=== PATIENT | male | born 1950 | race Caucasian/White ===

== ENCOUNTER 2023-06-27 08:12 | Outpatient (OUT) | payer OTHER, SELFPAY ==
--- NOTE | 2023-06-27 | PCN_ITS ---
CARDIAC STRESS TEST Requesting Physician: Procedure Date: 06/27/2023 INDICATION: Coronary artery disease. METHODS: After risks, benefits, and alternatives were explained, written informed consent was obtained. The patient was brought to the stress lab in the resting and fasting state. He was connected to the appropriate hemodynamic and electrocardiographic monitoring. Lexiscan 0.4 mg was infused intravenously. The patient was monitored for the standard duration and discharged in a stable state. STRESS TEST INFORMATION: HEMODYNAMICS: Resting heart rate was 62 beats per minute, increasing to a maximum of 85 beats per minute. Resting blood pressure was 150/76, decreasing to a minimum of 136/74. The patient had no reported symptoms. ELECTROCARDIOGRAPHY: Rest EKG: Normal sinus rhythm, normal EKG. During infusion and recovery: No significant ST-T wave changes noted, no significant arrhythmia seen. FINAL IMPRESSION: 1. No ischemic EKG changes seen on Lexiscan pharmacological stress test. 2. Nuclear images are to be read, interpreted and reported in a separate dictation. BEREKET
--- NOTE | 2023-06-27 08:05 | NM_ITS ---
Patient Name: CHELSEA PATEL MR#: [id number] : 1950 Exam Date: 06/27/2023 Ordering Doctor: DR OCTAVIO JOSHUA M.D. RADIOLOGY REPORT PROCEDURE: NM ROSENDA PERF SPECT REST STR COMPARISON: None. INDICATIONS: CORONARY ARTERY DISEASE TECHNIQUE: Exam Description: Stress/Rest one day protocol gated SPECT Rest Imagin.2 mCi Tc-99m Cardiolite IV on 06/27/2023 Stress Imaging 30.2 mCi Tc-99m Cardiolite IV on 06/27/2023 Exercise Protocol: 0.4 mg Lexiscan given IV Heart Rate (bpm): Rest: 62 Max: 86 PMHR: 58 Blood Pressure: Rest: 150/76 Max: 150/76 Symptoms: Rest and peak stress ECG findings were normal and the exercise portion of the study was normal per attending physician Dr. Joshua . For more details please see separate cardiac stress test report. FINDINGS: QUALITY OF STUDY: Excellent. PERFUSION DEFECT: None. LOCATION: N/A SIZE: N/A. SEVERITY: N/A. TYPE: N/A. WALL MOTION: Normal. LV SIZE: Normal. 112 mL. TID / TCD: None; 1.0 LVEF: Normal. Calculated EF 62%. SUMMARY: Myocardial perfusion imaging study is NORMAL. CONCLUSION: 1. Normal nuclear medicine myocardial perfusion scan. Dictated by: Silverio Boykin M.D. on 06/28/2023 at 15:25 Approved by: Silverio Boykin M.D. on 06/28/2023 at 15:30
[2023-06-27] MEDS: REGADENOSON 0.4 MG/5 ML SYRINGE 0.400000000000000022 MG IV (10:08)
== END 2023-06-27 08:13 | disposition home or self-care (01) ==
LOC: NM 08:13
PROVIDERS: PCP Internal Medicine; Visit Provider Internal Medicine Interventional Cardiology
DX: I25.10 Atherosclerotic heart disease of native coronary artery without angina pectoris (principal); I25.83 Coronary atherosclerosis due to lipid rich plaque
CPT/HCPCS: 78452; 93017; A9500; J2785

== ENCOUNTER 2024-03-06 13:53 | Outpatient (OUT) | payer MEDICARE, SELFPAY ==
--- NOTE | 2024-03-06 13:57 | CT_ITS ---
[address] [address] Patient Name: CHELSEA PATEL MRN: [id number] date: 1950 Sex: M Assigned Patient Location: CT Current Patient Location: Accession/Order Number: [id number] Exam Date: 03/06/2024 14:12 Report Date: 03/07/2024 06:38 At the request of: JAMES SEQUEIRA Procedure: CT chest wo con EXAMINATION: CT chest wo con HISTORY: Multiple Lung Nodules ; follow-up COMPARISON: CT chest 05/19/2022 TECHNIQUE: Axial, Coronal, and Sagittal images were created without the administration of IV contrast material. Dose reduction techniques were achieved by using automated exposure control and/or adjustment of mA and/or kV according to patient size and/or use of iterative reconstruction technique. FINDINGS: LUNGS: Stable appearance of multiple 3-5 mm nodules bilaterally; some calcified and some are noncalcified. No acute infiltrates or significant chronic interstitial changes. PLEURA: No mass, effusion, or pneumothorax. VASCULATURE: No abnormality. RAVI: Calcified right hilar lymph nodes suggestive chronic granulomatous disease. MEDIASTINUM: A few small calcified lymph nodes. CARDIAC: No enlargement, pericardial thickening, or pericardial effusion. Coronary Artery calcifications: Coronary calcifications are moderate. AORTA: No aneurysm or dissection. CHEST WALL: No mass or axillary adenopathy BONES: Prior right shoulder replacement. No bone lesion or fracture. LIMITED ABDOMEN: Multiple gallstones. Limited images of the upper abdomen. OTHER: Negative. CT/CT chest wo con IMPRESSION: 1. Multiple 3-5 mm lung nodules bilaterally; stable and not overtly suspicious. 2. Calcified mediastinal and hilar lymph nodes which along with lung nodules favoring chronic granulomatous disease. 3. Cholelithiasis. Electronically authenticated by: GERSON AMADO Date: 03/07/2024 06:38
== END 2024-03-06 13:54 | disposition home or self-care (01) ==
LOC: CT 13:53
PROVIDERS: PCP Internal Medicine; Visit Provider Internal Medicine
DX: R91.8 Other nonspecific abnormal finding of lung field (principal); K80.20 Calculus of gallbladder without cholecystitis without obstruction
CPT/HCPCS: 71250

== ENCOUNTER 2024-03-31 13:16 | Emergency (ER) | payer MEDICARE, SELFPAY ==
[2024-03-31 13:20] VITALS: TEMP 36.7; BMI 32.6
--- NOTE | 2024-03-31 13:24 | XR_ITS ---
The [address] [address] Patient Name: CHELSEA PATEL MRN: [id number] date: 1950 Sex: M Assigned Patient Location: ER Current Patient Location: ER Accession/Order Number: [id number] Exam Date: 03/31/2024 13:45 Report Date: 03/31/2024 15:11 At the request of: ENDER CREWS Procedure: XR acute abdomen series EXAM: XR acute abdomen series HISTORY: constipation COMPARISON: CT chest 03/06/2024. Chest x-ray 03/23/2022. TECHNIQUE: AP chest x-ray with upright and supine abdominal x-rays. FINDINGS: Cardiac size appears unchanged. Trachea is midline. No mediastinal widening. No interval air space consolidation, pneumothorax or effusion is identified. Multiple chronic healed right rib fracture deformities with callus. Posterior fixation hardware along the lower cervical spine. Reversal of right shoulder arthroplasty is noted. Multiple clustered rim calcifications in the right upper quadrant correlating with calcified gallstones. No free air beneath the diaphragm is seen. Prominent stool throughout the course of the colon and rectum. Rectum is distended at 6.8 cm. There are several air-fluid levels on the upright projection. No dilated air-filled small or large bowel loops identified to suggest obstruction. Convex right curvature of the lumbar spine with posterior fixation at L4-L5. XR/XR acute abdomen series IMPRESSION: 1. Stable nonacute chest. 2. Constipation 3. There are a few air-fluid levels on the upright projection which may indicate mild ileus pattern 4. Cholelithiasis. Electronically authenticated by: RUDY SANCHEZ Date: 03/31/2024 15:11
[2024-03-31 15:26] VITALS: BP 149/73; PULSE 58; O2SAT 100
--- NOTE | 2024-03-31 15:40 | ED_ITS ---
HPI HPI - General Adult General Chief complaint: Abdominal Pain Stated complaint: CONSTIPATED Time Seen by Provider: 03/31/24 15:26 Source: patient Mode of arrival: walk-in Limitations: no limitations History of Present Illness HPI narrative: Patient is a 73-year-old male who presents to the emergency department for the evaluation of constipation. Patient reports no bowel movement for the last 3 days. He has no significant abdominal pain, fevers, nausea or vomiting. He has been using oral stool softeners and drink a bottle of magnesium citrate this morning without improvement. He states he required an enema for constipation about 10 years ago in this emergency department. He was sent for abdominal x- rays from the [facility] prior to my evaluation. He is sitting comfortably at bed side chair at time of evaluation. Related Data Previous Rx's ?Medication ?Instructions ?Recorded ondansetron 4 mg disintegrating 4 mg PO Q6H PRN nausea and 03/31/24 tablet vomiting #12 tabs peg 3350-electrolytes 236 240 ml PO Q10M #4,000 mL 03/31/24 gram-22.74 gram-6.74 gram-5.86 gram solution (Golytely) Allergies Allergy/AdvReac Type Severity Reaction Status Date / Time No Known Drug Allergies Allergy Verified 03/31/24 13:23 Opioid HPI Opioid Management Most Recent Opioid Data: No Data to Display Review of Systems ROS Constitutional Denies: fever or chills Ears, nose, mouth, and throat Denies: throat pain or nasal congestion Cardiovascular Denies: chest pain Respiratory Denies: shortness of breath Gastrointestinal Reports: constipation; Denies: nausea or vomiting Musculoskeletal Denies: back pain Integumentary/Breast Denies: rash Neurological Denies: numbness in extremities or weakness in extremities Hematologic/Lymphatic Denies: easy bruising or easy bleeding PFSH PFS Social History Little interest or pleasure in doing things: not at all Feeling down, depressed, or hopeless: not at all Exam Narrative Exam Narrative: Gen.: Awake, alert, in no distress Head: Normocephalic, atraumatic ENT: Moist mucous membranes Respiratory: No respiratory distress Gastrointestinal: Abdomen is soft, nondistended and nontender to palpation; rec west exam performed with Tania Thornton RN at bedside throughout the duration of the exam. Hard stool palpated in the rectal vault, beyond the reach of my fingertip. No hemorrhoids or bleeding noted Extremities: Moves extremities equally, no injuries noted Psych: Normal mood and affect Neuro: No focal neuro deficit Skin: Warm, dry, intact Constitutional Vital Signs, click to edit/add: Last Vital Signs Temp 98.1 F 03/31/24 13:20 Pulse 58 L 03/31/24 15:26 Resp 20 03/31/24 15:26 BP 149/73 H 03/31/24 15:26 Pulse Ox 100 03/31/24 15:26 O2 Del Method Room Air 03/31/24 15:26 Course Vital Signs Vital signs: Vital Signs Temperature 98.1 F 03/31/24 13:20 Temperature 98.1 F 03/31/24 13:20 Pulse Rate 58 L 03/31/24 15:26 Respiratory Rate 03/31/24 15:26 Blood Pressure 149/73 H 03/31/24 15:26 Pulse Oximetry 100 03/31/24 15:26 Oxygen Delivery Method Room Air 03/31/24 15:26 Medical Decision Making MDM Narrative Medical decision making narrative: Abdominal x-rays show constipation with no evidence of obstruction. Rectal exam with hard stool in the vault that is not able to be digitally disimpacted. Enema was ordered for the patient. He is hemodynamically stable. 2 enemas were attempted without success. Patient is unable to be disimpacted. He was offered an observation admission which was discussed with Dr. Becerra to help clean him out. After extensive conversation at the bedside, patient would like to try to go home with [facility]. He was given Zofran and encouraged to increase fluids. He understands he can return to the emergency department at any time if his symptoms change or worsen or he does not get improvement. SUPERVISED APC VISIT, PHYSICIAN ATTESTATION: Based on the medical record the care appears appropriate. ? Medical Records Medical records reviewed: Yes I reviewed the patient's medical records Imaging Data Abdominal x-ray: Attestation: I have reviewed the pertinent imaging results. Radiologist's impression: ITS Impressions Chest/Abdomen X-ray 03/31/24 13:24 IMPRESSION: 1. Stable nonacute chest. 2. Constipation 3. There are a few air-fluid levels on the upright projection which may indicate mild ileus pattern 4. Cholelithiasis. Electronically authenticated by: RUDY SANCHEZ Date: 03/31/2024 15:11 Discharge Plan Discharge Chief Complaint: Abdominal Pain Clinical Impression: Constipation Patient Disposition: Home, Self-Care Time of Disposition Decision: 17:37 Condition: Good Prescriptions / Home Meds: New ondansetron 4 mg tablet,disintegrating 4 mg PO Q6H PRN (Reason: nausea and vomiting) Qty: 12 0RF peg 3350-electrolytes [Golytely] 236-22.74-6.74 -5.86 gram recon soln 240 ml PO Q10M Qty: 4000 0RF Rx Instructions: until fecal effluent is clear Print Language: Estonian Instructions: Constipation (ED) Referrals: JAMES SEQUEIRA [Primary Care Provider] - 1 week
== END 2024-03-31 17:54 | disposition home or self-care (01) ==
PROVIDERS: Emergency Provider Emergency Medicine; PCP Internal Medicine
DX: K59.00 Constipation, unspecified (principal); K80.20 Calculus of gallbladder without cholecystitis without obstruction
CPT/HCPCS: 74022; 99283

== ENCOUNTER 2024-04-05 14:29 | Emergency (ER) | payer MEDICARE, SELFPAY ==
[2024-04-05 14:38] VITALS: BP 145/78; PULSE 64; TEMP 36.8; O2SAT 97; BMI 32.8
--- OUTSIDE RECORDS SUMMARY | 2024-04-05 14:42 | XMS_ITS | CCD ---
Author Organization [facility] CliniSywy Care Team Providers Care Senior Design Engineer Name Role Phone David Carrillo Unavailable Unavailable David Carrillo Unavailable Unavailable David Carrillo Unavailable Unavailable NONE, XXXX Unavailable Unavailable BOZENA DOMINGO Admitting Unavailable BOZENA DOMINGO Attending Unavailable ALONZO CENTENO Referring Unavailable ALONZO CENTENO Primary Care Unavailable Hossein Tran Unavailable David Carrillo Unavailable Stanton Velasco II Primary Care Provider [phone] KUSHAL Velasco Attending Provider Hossein Tran Unavailable David Carrillo Unavailable Stanton Velasco II Primary Care Provider [phone] Hossein Tran Unavailable David Carrillo Unavailable Stanton Velasco II Primary Care Provider DR TRACIE TELLO Attending Unavailable DR TRACIE TELLO Admitting Unavailable DR STANTON VELASCO Primary Care Unavailable PITA .NICKIE Consulting UnavailALEXANDRE Powers Consulting Unavailable KIM PARK Consulting Unavailable DR WATSON CENTENO Primary Care Unavaila BOZENA Packer Admitting Unavailable BOZENA DOMINGO Attending Unavailable DR STANTON VELASCO Primary Care Unavailable BOZENA DOMINGO Attending Unavailable BOZENA DOMINGO Consulting Unavailable BOZENA DOMINGO Admitting Unavailable BASILIO, DR FORDE Admitting Unavailable DR STANTON VELASCO Primary Care Unavailable MISC, DR FORDE Attending Unavailable MISC, DR FORDE Consulting Unavailable BURGOS, CARMEN Consulting Unavailable VELASCO, DR RAMIREZ Attending Unavailable VELASCO, DR RAMIREZ Consulting Unavailable VELASCO, DR RAMIREZ Primary Care Unavailable VELASCO, DR RAMIREZ Admitting Unavailable VELASCO, DR RAMIREZ Admitting Unavailable VELASCO, DR RAMIREZ Attending Unavailable VELASCO, DR RAMIREZ Consulting Unavailable VELASCO, DR RAMIREZ Primary Care Unavailable ZIEBER, DR GERSON Rajan Consulting Unavailable ELTAHAWY, DR CUNNINGHAM Attending Unavailable ELTAHAWY, DR CUNNINGHAM Consulting Unavailable ELTAHAWY, DR CUNNINGHAM Admitting Unavailable VELASCO, DR RAMIREZ [facility] Un[facility] Unava ilable Andrewavani , Hossein Adamswin Unavailable [phone] Rod FATIMA MD, Daniel B Primary Care Provider [phone] David Carrillo MD Unavailable Rod FATIMA MD, Daniel B Primary Care Provider TAMANNA JOSHUA Attending Unavailable Watson Centeno Primary Care Provider Unava ilable Stanton Velasco MD Unavailable Stanton Velasco MD Primary Care Provider [phone] Suzanna Macdonald Attending Unavailable Suzanna Macdonald Admitting Unavailable AKI-OLU, LOUIE Attending Unavailable VELASCO II, STANTON B Primary Care Unavailable VELASCO II, STANTON B Primary Care Unavailable AKI-OLU, LOUIE Attending Unavailable VELASCO II, STANTON B Primary Care Unavailable AKI-OLU, LOUIE Attending Unavailable AKI-OLU, LOUIE Admitting Unavailable AKI-OLU, LOUIE Referring Unavailable VELASCO II, STANTON B Primary Care Unavailable AKI-OLU, LOUIE Referring Unavailable VELASCO II, STANTON B Primary Care Unavailable VELASCO II, STANTON B Primary Care Unavailable AKI-OLU, LOUIE Referring Unavailable VELASCO II, STANTON B Primary Care Unavailable VASBENIGNODAFADY P Attending Unavailable VELASCO II, STANTON B Primary Care Unavailable VASBENIGNODA FADY P Attending Unavailable VELASCO II, STANTON B Primary Care Unavailable CHRIS CLEMENTS Attending Unavailable VASVESNA, FADY P Referring Unavailable VELASCO II, STANTON B Primary Care Unavailable NITHYA HORNER Attending Unavailable NITHYA HORNER Referring Unavailable STANTON VELASCO II Primary Care Unavailable RICHARD, WAHIB Attending Unavailable RICHARD, WAHIB Referring Unavailable STANTON VELASCO II Primary Care Unavailable STANTON VELASCO II Primary Care Unavailable Emelyn Hall RN Unavailable [phone] STANTON VELASCO Attending Unavailable CHRISTINA PERLA Attending Unavailable CHRISTINA PERLA Attending Unavailable CHRISTINA PERAL Referring Unavailable LOUIE RIGGS Referring Unavailable STANTON VELASCO Attending Unavailable STANTON VELASCO Attending Unavailable Allergies Allergy Classification Reported Allergen(s) Allergy Type Date of Onset Reaction(s) Facility Bee pollen (2 sources) Bee pollen Drug Allergy 4 [facility] Work Phone: oxybutynin (2 sources) oxybutynin Drug Allergy 4 Other: See Comments [facility] Trospium (2 sources) Trospium Drug Allergy 5 Other: See [facility] (1 source) No Known Medication Allergies; Translations: [No Known Medication Allergies] Propensity to adverse reactions (disorder) [facility] Repository (1 source) Bee/Wasp/Ant venom; Translations: [Bee/Wasp Stings] Propensity to adverse reactions (disorder) 2 [facility] Repository (20 sources) Bee pollen; Translations: [BEE POLLEN] Drug Allergy 4 [facility] Work Phone: (20 sources) Seasonal allergy; Translations: [SEASONAL ALLERGIES] Allergy to substance 2 Other: See [facility] (20 sources) Bee Sting; Translations: [BEE STING] Allergy to substance 9 [facility] (20 sources) oxybutynin; Translations: [OXYBUTYNIN] Drug Allergy 4 Other: See Comments [facility] (20 sources) Trospium; Translations: [TROSPIUM] Drug Allergy 5 Other: See [facility] (20 sources) Venom-Honey Bee; Translations: [VENOM-HONEY BEE] Drug Allergy 9 Other: See Comments, [facility] (12 sources) Bee pollen Allergy to substance 4 Unknown, Swelling [facility] Healthcare Work Phone: (12 sources) Honey bee venom Allergy to substance 3 [facility] Healthcare (12 sources) Trospium Drug Allergy 5 [facility] Healthcare (12 sources) Other Allergy to substance 2 Other [facility] Healthcare Medications Current Medications Medication Drug Class(es) Dates Sig (Normalized) Sig (Original) acetaminophen 500 mg oral tablet (20 sources) Start: 05-03-2021 take 2 tablets by mouth every six hours as needed acetaminophen (TYLENOL) 500 mg tablet Take 2 tablets by mouth every 6 hours as needed for pain. 05/03/2021 Active Comment on above: Take 2 tablets by mo uth every 6 hours as needed for pain. amoxicillin 500 mg oral tablet (20 sources) Penicillin-class Antibacterial Start: 08-02-2021 End: 05-16-2022 Amoxicillin 500 mg tablet Indications: S/P reverse total shoulder arthroplasty, right take 6 tablets one hour prior to procedure and take 2 tablets six hours after procedure 8 tablet 2 08/02/2021 05/16/2022 Discontinued Start: 07-03-2019 End: 05-22-2023 Amoxicillin 500 mg tablet TA KE 4 TABLETS BY MOUTH 1 (ONE) HOUR BEFORE procedure then TAKE 2 TABLETS BY MOUTH 6 (SIX) hours after procedure 6 tablet 3 05/22/2023 Active Comment on above: Take 4 tablets 1 piotr r before procedure and 2 tablets 6 hours after procedure take 6 tablets one h our prior to procedure and take 2 tablets six hours after procedure TAKE 4 TABLETS BY MO UTH 1 (ONE) HOUR BEFORE procedure then TAKE 2 TABLETS BY MOUTH 6 (SIX) hours after procedure amoxicillin 875 mg / clavulanate 125 mg oral tablet (2 sources) Penicillin-class Antibacterial Start: 5 End: 5 take 1 tablet by mouth in the morning amoxicillin-clavula jhoan (Augmentin) 875-125 MG tablet Indications: Acute sinusitis, recurrence not specified, unspecified location Take 1 tablet (875 mg) by mouth in the morning and 1 tablet (875 mg) before bedtime. Do all this for 7 days. 14 tablet 02/15/2024 02/22/2024 Active ascorbic acid 500 mg oral tablet (20 sources) Vitamin C Start: 8 take 1 tablet by mouth once daily ascorbic acid, vitamin C, (VITAMIN C) 500 mg tablet Take 1 tablet by mouth once daily. 06/29/2017 Active Ascorbic Acid (V itamin C) 500 MG capsule 1 (one) time each day at the same time. Active Comment on above: Take 1 tablet by lang th once daily. aspirin 81 mg chewable tablet (20 sources) Platelet Aggregation Inhibitor, Nonsteroidal Anti-inflammatory Drug Start: 11-01-2018 take 81 mg by mouth twice daily Aspirin Active 81 MG PO Twice daily November 01, 2018 11:26am Start: 10-31-2018 take 1 tablet by lang th twice daily aspirin, enteric coated (ASPIRIN, ENTERIC COATED) 81 mg EC tablet Take 1 tablet by mouth twice daily. 84 tablet 10/31/2018 Active aspirin (Aspir-L ow) 81 MG EC tablet 1 (one) time each day at the same time. Active Comment on above: Take 1 tablet by lang th twice daily. bisacodyl 10 mg rectal suppository (1 source) Stimulant Laxative Start: 9 Bisacodyl Active 10 MG [place] Daily 0 November 06, 2018 4:02pm cephalexin 500 mg oral capsule (7 sources) Cephalosporin Antibacterial Start: 4 End: 4 take 1 capsule by mouth three times daily cephALEXin (KEFLEX) 500 mg capsule Take 1 capsule by mouth three times a day for 10 days. 30 capsule 0 08/17/2023 08/27/2023 Active Start: 07-11-2023 End: 07-18-2023 take 1 capsule by mouth three times daily cephALEXin (KEFLEX) 500 mg capsule Take 1 capsule by mouth three times a day for 7 days. 21 capsule 0 07/11/2023 07/18/2023 Active Start: 06-10-2023 End: 06-17-2023 take 1 capsule by mouth three times daily cephALEXin (KEFLEX) 500 mg capsule Take 1 capsule by mouth three times a day for 7 days. 21 capsule 0 06/10/2023 06/17/2023 Active Start: 06-03-2023 End: 06-04-2023 cephALEXin 500 mg cap(s) (KE FLEX) Start: 05-30-2022 End: 05-31-2022 cephALEXin 500 mg cap(s) (KE FLEX) Start: 11-06-2018 take 500 mg by mouth every twelve hours Cephalexin Active 500 MG PO Every 12 hours 0 7 November 06, 2018 4:02pm cholecalciferol 0.025 mg oral tablet (20 sources) Vitamin D cholecalciferol (Vitamin D3) 25 MCG (1000 UT) tablet 1 (one) time each day at the same time. Active Comment on above: Take 1,000 Units by mouth once daily. COMPOUNDED PRESCRIPTION (20 sources) Start: 12-25-19 COMPOUNDED PRESCRIPTION 16 fr catheters 30 Device 11 12/24/2017 Active Comment on above: 16 fr catheters docusate sodium 100 mg oral capsule (6 sources) Start: 11-07-19 End: 06-03-19 take 1 capsule by mouth every twelve hours as needed docusate sodium (COLACE) 100 mg capsule Take 1 capsule by mouth twice daily as needed for constipation. 30 capsule 0 05/03/2021 06/02/2021 Active Start: 11-06-2018 End: 11-06-2018 take 1 capsule by mouth once daily Docusate Sodium (Dok) 100 mg capsule Discontinued 100 MG PO Daily November 06, 2018 9:59am November 06, 2018 4:10pm Comment on above: Take 1 capsule by mo uth twice daily as needed for constipation. fluticasone propionate 0.05 mg/actuat metered dose nasal spray (12 sources) Corticosteroid Start: 02-03-20 take 1-2 spray(s) nasal route in the morning fluticasone (Flonase) 50 MCG/ACT nasal spray Indications: Seasonal allergic rhinitis due to pollen Administer 1-2 sprays into each nostril in the morning. Shake gently. Before first use, prime pump. After use, clean tip and replace cap.. 16 g 3 02/02/2023 Active 24 hr isosorbide mononitrate 60 mg extended release oral tablet (20 sources) Nitrate Vasodilator Start: 11-02-19 take 60 mg by mouth once daily in the morning Isosorbide Mononitrate Active 60 MG PO Every morning November 01, 2018 11:26am Comment on above: Take 60 mg by mouth once daily. linaclotide 0.29 mg oral capsule (2 sources) Guanylate Cyclase-C Agonist Start: 04-03-19 End: 04-20-19 take 1 capsule by mouth before mealtime linaCLOtide (Linzess) 290 MCG capsule Indications: Chronic idiopathic constipation Take 1 capsule (290 mcg) by mouth in the morning for 16 days. Take before meals. Do not crush or chew.. 16 capsule 04/03/2024 04/19/2024 Active lisinopril 20 mg oral tablet (20 sources) Angiotensin Converting Enzyme Inhibitor Start: 11-08-19 take 1 tablet by mouth once daily lisinopril (ZESTRIL, PRINIVIL) 20 mg tablet Take 20 mg by mouth once daily. 3 11/07/2017 Active Comment on above: Take 20 mg by mouth once daily. loratadine 10 mg oral tablet (5 sources) Start: 03-07-19 End: 03-07-19 take 1 tablet by mouth once daily loratadine (Claritin) 10 MG tablet Indications: Allergic rhinitis, unspecified seasonality, unspecified trigger Take 1 tablet (10 mg) by mouth Daily 90 tablet 3 03/07/2024 03/07/2025 Active magnesium hydroxide 80 mg/ml oral suspension (20 sources) Start: 11-07-19 End: 11-07-19 take 1 mL by mouth once daily Magnesium Hydroxide (Milk Of Magnesia) 400 mg/5 mL Suspension Active 30 ML PO Daily 0 November 06, 2018 4:09pm MAGNESIUM HYDROX BENITA (MILK OF MAGNESIA ORAL) Take 1 Bottle by mouth as needed. Active MAGNESIUM HYDROX BENITA (MILK OF MAGNESIA ORAL) Take 1 Bottle by mouth as needed. 0 Active MAGNESIUM HYDROX BENITA (MILK OF MAGNESIA ORAL) Take 1 Bottle by mouth once daily. 0 Active Comment on above: Take 1 Bottle by lang th once daily. Take 1 Bottle by lang th as needed. methylPREDNISolone (2 sources) Corticosteroid Start: 2023 End: 2023 methylPREDNISolone (Medrol Dospak) 4 MG tablets Indications: 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 Follow schedule on package instructions 21 tablet 11/02/2023 11/09/2023 Active metoprolol tartrate 50 mg oral tablet (20 sources) beta-Adrenergic Domingo Start: 2018 take 1 tablet by mouth twice daily metoprolol tartrate, short acting, (LOPRESSOR) 50 mg tablet Indications: Coronary artery disease involving yocha dehe coronary artery of yocha dehe heart without angina pectoris , Essential hypertension , Hyperlipidemia, unspecified hyperlipidemia type Take 1 tablet by mouth twice daily. 10/10/2018 Active metoprolol tartr ate (Lopressor) 50 MG tablet every 12 (twelve) hours. Active Comment on above: Take 1 tablet by lang twice daily. Multivitamin capsule (20 sources) take 1 capsule by mouth once daily Multivitamin capsule Take 1 capsule by mouth once daily. Active take 1 capsule by mouth once agusto ly Multivitamin capsule Take 1 capsule by mouth once daily. 0 Active Comment on above: Take 1 capsule by mo [facility] once daily. nitroglycerin 0.4 mg sublingual tablet (20 sources) Nitrate Vasodilator nitroglyceri n (Nitrostat) 0.4 MG SL tablet as directed Sublingual Active ondansetron 4 mg disintegrating oral tablet (3 sources) Serotonin-3 Receptor Antagonist Start: 03-31-19 take 1 tablet by mouth every four hours as needed for nausea and vomiting ondansetron ODT (Zofran-ODT) 4 MG disintegrating tablet Take 4 mg by mouth every 4 (four) hours if needed for nausea or vomiting 03/31/2024 Active oxyCODONE hydrochloride 5 mg oral tablet (6 sources) Opioid Agonist Start: 05-04-19 End: 06-15-19 take 1 tablet by mouth every four to six hours as needed oxyCODONE IR (ROXICODONE) 5 mg immediate release tablet Indications: Post-op pain Take 1-2 tablets by mouth every 4-6 hours as needed for pain 50 tablet 0 05/03/2021 06/14/2021 Discontinued Start: 11-06-2018 take 5 mg by mouth e very six hours Oxycodone Active 5 MG PO Every 6 hours 10 3 November 06, 2018 4:07pm Comment on above: Take 1-2 tablets by mouth every 4-6 hours as needed for pain plecanatide 3 mg oral tablet (20 sources) Start: 023 End: 024 take 1 tablet by mouth once daily plecanatide (TRULANCE) 3 mg tablet Take 1 tablet by mouth once daily. 12/13/2022 Active polyethylene glycol 3350 25843 mg powder for oral solution (13 sources) Osmotic Laxative Start: 019 Polyethylene Glycol 3350 (Miralax) 17 gram Powder In Packet Active 17 GM PO Daily November 06, 2018 9:59am polyethylene glycol 3350 711732 mg / potassium chloride 2970 mg / sodium bicarbonate 6740 mg / sodium chloride 5860 mg / sodium sulfate 55069 mg powder for oral solution (2 sources) Osmotic Laxative Start: End: take 4000 mL by mouth once GaviLyte-G 236 g solution Take 4,000 mL by mouth 1 (one) time 03/31/2024 04/03/2024 Discontinued (Therapy completed) rosuvastatin calcium 40 mg oral tablet (20 sources) HMG-CoA Reductase Inhibitor Start: take 1 tablet by mouth once daily Rosuvastatin (Crestor) 40 mg Tablet Active 40 MG PO Daily November 01, 2018 11:26am Comment on above: Take 40 mg by mouth once daily. sulfamethoxazole 800 mg / trimethoprim 160 mg oral tablet (2 sources) Dihydrofolate Reductase Inhibitor Antibacterial, Sulfonamide Antimicrobial Start: End: take 1 tablet by mouth twice daily sulfamethoxazole-tri methoprim (BACTRIM DS) 800-160 mg per tablet Take 1 tablet by mouth two times a day for 10 days. 20 tablet 12/14/2023 12/24/2023 Active tiZANidine 4 mg oral tablet (5 sources) Central alpha-2 Adrenergic Agonist Start: End: take 1 tablet by mouth every eight hours tiZANidine (Zanaflex) 4 MG tablet Indications: 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 Take 1 tablet (4 mg) by mouth every 8 (eight) hours if needed (back spasms) for up to 10 days 30 tablet 11/02/2023 02/15/2024 Discontinued (Therapy completed) triamcinolone acetonide 1 mg/ml topical cream (12 sources) Corticosteroid Start: triamcinolone (Kenalog) 0.1 % cream APPLY TO THE AFFECTED AREA(S) (thin layer on neck, chest) TWICE DAILY NEEDED 09/13/2022 Active trospium chloride 20 mg oral tablet (20 sources) Cholinergic Muscarinic Antagonist Start: take 1 tablet by mouth twice daily trospium (SANCTURA) 20 mg tablet Take 1 tablet by mouth two times a day. 30 tablet 4 09/11/2023 Active Start: 04-25-2022 End: 07-05-2023 take 1 tablet by mouth once daily trospium (SANCTURA) 20 mg tablet Indications: Urinary urgency Take 1 tablet by mouth once daily. 30 tablet 2 04/25/2022 07/05/2023 Discontinued Comment on above: Take 1 tablet by lang th once daily. Completed/Discontinued Medications Medication Drug Class(es) Dates Sig (Normalized) Sig (Original) ezetimibe 10 mg oral tablet (20 sources) Dietary Cholesterol Absorption Inhibitor Start: 04-22-2021 End: 07-05-2023 take 1 tablet by mouth once daily ezetimibe (ZETIA) 10 mg tablet Take 10 mg by mouth once daily. 04/22/2021 07/05/2023 Discontinued Comment on above: Take 10 mg by mouth once daily. lidocaine hydrochloride 0.02 mg/mg topical gel (3 sources) Antiarrhythmic, Amide Local Anesthetic Start: 06-03-2023 End: 06-04-2023 lidocaine urojet 2 % 11 mL topical gel (GLYDO) Start: 05-30-2022 End: 05-31-2022 lidocaine urojet 2 % 11 mL t opical gel (GLYDO) predniSONE 20 mg oral tablet (2 sources) Start: 07-30-2020 End: 04-12-2021 take 1 tablet by mouth once daily predniSONE (DELTASONE) 20 mg tablet Indications: Nontraumatic tear of right rotator cuff, unspecified tear extent , Acute pain of right shoulder Take 1 tablet by mouth once daily. 7 tablet 07/30/2020 04/12/2021 Discontinued (Course of therapy completed) Comment on above: Take 1 tablet by lang th once daily. tamsulosin hydrochloride 0.4 mg oral capsule (2 sources) alpha-Adrenerg ic Domingo Start: 03-09-2020 End: 04-12-2021 take 1 capsule by mouth once daily tamsulosin (FLOMAX) 0.4 mg Take 1 capsule by mouth once daily. 30 capsule 1 03/09/2020 04/12/2021 Discontinued (Course of therapy completed) Comment on above: Take 1 capsule by mo [facility] once daily. Problems Active Problems Problem Classification Problem Date Documented Da te Episodic/Chronic Abdominal hernia (2 sources) Inguinal hernia; Translations: [Unilateral inguinal hernia, without obstruction or gangrene, not specified as recurrent] Onset: 02-18-2024 02-18-2024 Episodic Allergic reactions (12 sources) Atopic dermatitis; Translations: [Atopic dermatitis, unspecified] Onset: 06-26-2022 06-26-2022 Chronic Chronic kidney disease (12 sources) Chronic kidney disease stage 2; Translations: [Chronic kidney disease, stage 2 (mild)] Onset: 08-21-2022 08-21-2022 Chronic Chronic obstructive pulmonary disease and bronchiectasis (3 sources) Chronic obstructive lung disease; Translations: [Chronic obstructive pulmonary disease, unspecified] Onset: 04-02-2024 04-02-2024 Chronic Coronary atherosclerosis and other heart disease (20 sources) Coronary arteriosclerosis; Translations: [Atherosclerotic heart disease of yocha dehe coronary artery without angina pectoris] Onset: 02-13-2004 10-30-2018 Chronic Coronary atherosclerosis and other heart disease (1 source) Presence of aortocoronary bypass graft; Translations: [PRESENCE AORTOCORONARY BYPASS GRAFT] Onset: 06-11-2022 Episodic Delirium, dementia, and amnestic and other cognitive disorders (12 sources) Mild cognitive disorder ; Translations: [Unspecified mental disorder due to known physiological condition] Onset: 08-21-2022 08-21-2022 Chronic Disorders of lipid metabolism (20 sources) Mixed hyperlipidemia; Translations: [Mixed hyperlipidemia] Onset: 11-20-2011 Resolved: 05-23-2023 10-30-2018 Chronic Diverticulosis and diverticulitis (12 sources) Diverticulosis of colon; Translations: [Diverticulosis of large intestine without perforation or abscess without bleeding] Onset: 08-21-2022 08-21-2022 Chronic Essential hypertension (20 sources) Essential hypertension; Translations: [Essential (primary) hypertension] Onset: 11-20-2011 10-30-2018 Chronic Genitourinary symptoms and ill-defined conditions (20 sources) Urge incontinence of urine; Translations: [Urge incontinence] Onset: 06-20-2017 06-20-2017 Chronic Genitourinary symptoms and ill-defined conditions (18 sources) Retention of urine; Translations: [Retention of urine, unspecified] Onset: 03-24-2022 Episodic Hyperplasia of prostate (20 sources) Weak urinary stream due to benign prostatic hypertrophy; Translations: [Benign prostatic hyperplasia with lower urinary tract symptoms] Onset: 08-21-2022 Resolved: 05-23-2023 Chronic Hypertension with complications and secondary hypertension (2 sources) Hypertensive heart disease without heart failure; Translations: [Hypertensive heart disease without heart failure] Onset: 06-11-2023 Chronic Nutritional deficiencies (12 sources) Vitamin D deficiency; Translations: [Vitamin D deficiency, unspecified] Onset: 05-04-2021 08-21-2022 Chronic Occlusion or stenosis of precerebral arteries (1 source) Occlusion and stenosis of left carotid artery; Translations: [OCCLUSION AND STENOSIS LT CAROTID ART] Onset: 03-24-2022 Chronic Osteoarthritis (20 sources) Osteoarthritis of right knee joint; Translations: [Unilateral primary osteoarthritis, right knee] Onset: 10-30-2018 Resolved: 05-23-2023 10-30-2018 Chronic Other acquired deformities (4 sources) Contracture, right hip; Translations: [CONTRACTURE RIGHT HIP] Onset: 04-14-2022 Chronic Other acquired deformities (12 sources) Contracture of right hip joint; Translations: [Contracture, right hip] Onset: 08-21-2022 08-21-2022 Chronic Other bone disease and musculoskeletal deformities (1 source) Other specified disorders of bone density and structure, other site; Translations: [OTH D/O BONE DEN STRUCT OTH SITE] Onset: 04-18-2022 Episodic Other circulatory disease (14 sources) Raynaud's disease; Translations: [Raynaud's syndrome without gangrene] Onset: 08-21-2022 08-21-2022 Chronic Other connective tissue disease (4 sources) History of reverse prosthetic total arthroplasty of right shoulder; Translations: [Presence of right artificial shoulder joint] Chronic Other connective tissue disease (1 source) History of total knee arthroplasty; Translations: [Presence of right artificial knee joint] 11-01-2018 Chronic Other connective tissue disease (14 sources) Shoulder joint prosthesis present; Translations: [Presence of unspecified artificial shoulder joint] Onset: 08-21-2022 08-21-2022 Chronic Other connective tissue disease (3 sources) Nontraumatic complete rupture of rotator cuff of right shoulder; Translations: [Complete rotator cuff tear or rupture of right shoulder, not specified as traumatic] Episodic Other connective tissue disease (1 source) Muscle wasting and atrophy, not elsewhere classified, left upper arm; Translations: [MUSC WASTING ATROPHY NEC LT UP ARM] Onset: 03-24-2022 Episodic Other connective tissue disease (1 source) Disorder of rotator cuff; Translations: [Unspecified disorder of synovium and tendon, left shoulder] Episodic Other connective tissue disease (1 source) Nontraumatic rotator cuff tear; Translations: [Unspecified rotator cuff tear or rupture of right shoulder, not specified as traumatic] 08-10-2020 Episodic Other diseases of bladder and urethra (1 source) Low compliance bladder; Translations: [Other neuromuscular dysfunction of bladder] 06-20-2023 Chronic Other diseases of bladder and urethra (2 sources) Overactive bladder; Translations: [Overactive bladder] 12-12-2023 Chronic Other diseases of bladder and urethra (2 sources) Overactive bladder; Translations: [Overactive bladder] Onset: 07-05-2023 Chronic Other diseases of bladder and urethra (5 sources) Male urethral stricture; Translations: [Unspecified urethral stricture, male, unspecified site] Episodic Other diseases of bladder and urethra (1 source) Traumatic anterior urethral stricture; Translations: [Post-traumatic anterior urethral stricture] 06-08-2023 Episodic Other gastrointestinal disorders (16 sources) Chronic idiopathic constipation; Translations: [Chronic idiopathic constipation] Onset: 05-23-2023 05-23-2023 Chronic Other lower respiratory disease (4 sources) Solitary pulmonary nodule; Translations: [SOLITARY PULMONARY NODULE] Onset: 05-19-2022 Episodic Other nervous system disorders (20 sources) Brachial plexus disorder; Translations: [Brachial plexus disorders] Onset: 03-12-2017 03-12-2017 Chronic Other nervous system disorders (12 sources) Chronic pain; Translations: [Other chronic pain] Onset: 05-04-2021 08-21-2022 Chronic Other nervous system disorders (4 sources) Paresthesia of skin; Translations: [PARESTHESIA OF SKIN] Onset: 03-23-2022 Episodic Other non-traumatic joint disorders (1 source) Rotator cuff arthropathy of right shoulder; Translations: [Other specific arthropathies, not elsewhere classified, right shoulder] 01-04-2021 Chronic Other non-traumatic joint disorders (1 source) Pain in right knee; Translations: [PAIN IN RIGHT KNEE] Onset: 04-18-2022 Episodic Other non-traumatic joint disorders (3 sources) Pain in right shoulder; Translations: [Pain in joint, shoulder region] Onset: 04-18-2022 12-21-2020 Episodic Other non-traumatic joint disorders (5 sources) Pain in left shoulder; Translations: [Pain in joint, shoulder region] Onset: 04-14-2022 Episodic Other non-traumatic joint disorders (1 source) Shoulder pain; Translations: [Pain in left shoulder] Episodic Other non-traumatic joint disorders (1 source) Hip pain; Translations: [Pain in right hip] 04-15-2020 Episodic Other nutritional; endocrine; and metabolic disorders (20 sources) Obese class I; Translations: [Obesity, unspecified] Onset: 10-28-2018 10-30-2018 Chronic Other upper respiratory disease (12 sources) Seasonal allergic rhinitis; Translations: [Other seasonal allergic rhinitis] Onset: 08-21-2022 08-21-2022 Chronic Other upper respiratory disease (2 sources) Allergic rhinitis; Translations: [Allergic rhinitis, unspecified] 03-07-2024 Chronic Other upper respiratory infections (2 sources) Acute sinusitis; Translations: [Acute sinusitis, unspecified] 02-15-2024 Episodic Paralysis (1 source) Functional quadriplegia; Translations: [Functional quadriplegia] 11-01-2018 Chronic Pneumonia (except that caused by tuberculosis or sexually transmitted disease) (7 sources) 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; Translations: [Pulmonary histoplasmosis capsulati, unspecified] Onset: 03-07-2024 03-07-2024 Episodic Residual codes; unclassified (3 sources) Finding related to ability to manage personal health care; Translations: [Other specified health status] Episodic Screening and history of mental health and substance abuse codes (1 source) Personal history of nicotine dependence; Translations: [PERSONAL HISTORY OF NICOTINE DEPEND] Onset: 03-24-2022 Episodic Spinal cord injury (12 sources) Cervical spinal cord injury; Translations: [Unspecified injury at C5 level of cervical spinal cord, initial encounter] Onset: 08-21-2022 08-21-2022 Chronic Spondylosis; intervertebral disc disorders; other back problems (20 sources) Cervical spondylosis; Translations: [Other spondylosis with myelopathy, cervical region] Onset: 05-04-2017 05-30-2017 Chronic Unclassified (1 source) Obesity, Class I, BMI 30-34.9; Translations: [Obesity, Class I, BMI 30-34.9] Onset: 10-30-2018 Past or Other Problems Problem Classification Problem Date Documented Date Episodic/Chronic Blindness and vision defects (12 sources) Presbyopia; Translations: [Presbyopia] Onset: 05-23-2023 05-23-2023 Episodic Complication of device; implant or graft (20 sources) Loosening of total knee replacement; Translations: [Mechanical loosening of internal right knee prosthetic joint, initial encounter] Onset: 06-17-2020 06-17-2020 Episodic Complications of surgical procedures or medical care (3 sources) Stricture of male urethra following procedure; Translations: [Postprocedural urethral stricture, male, unspecified] Onset: 07-05-2023 12-12-2023 Episodic Fracture of lower limb (12 sources) Closed fracture of upper end of fibula; Translations: [Torus fracture of upper end of left fibula, initial encounter for closed fracture] Onset: 08-21-2022 Resolved: 05-23-2023 05-23-2023 Episodic Mood disorders (12 sources) Mood disorders Onset: 05-23-2023 05-23-2023 Other aftercare (12 sources) Long-term current use of anticoagulant; Translations: [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 of anticoagulants] Onset: 05-23-2023 05-23-2023 Episodic Other and unspecified benign neoplasm (12 sources) Polyp of colon; Translations: [Polyp of colon] Onset: 05-23-2023 05-23-2023 Episodic Other circulatory disease (13 sources) H/O: heart disorder; Translations: [Personal history of other diseases of the circulatory system] Onset: 05-23-2023 11-01-2018 Episodic Other connective tissue disease (20 sources) Shoulder girdle weakness; Translations: [Other symptoms and signs involving the musculoskeletal system] Onset: 03-12-2017 03-12-2017 Episodic Other connective tissue disease (20 sources) History of lumbar fusion; Translations: [Arthrodesis status] Onset: 06-17-2020 06-17-2020 Episodic Other connective tissue disease (20 sources) Rotator cuff arthropathy of right shoulder; Translations: [Unspecified rotator cuff tear or rupture of right shoulder, not specified as traumatic] Onset: 04-12-2021 04-12-2021 Episodic Other connective tissue disease (12 sources) Atrophy of deltoid muscle; Translations: [Muscle wasting and atrophy, not elsewhere classified, unspecified shoulder] Onset: 08-21-2022 08-21-2022 Episodic Other connective tissue disease (12 sources) Atrophy of muscle of right shoulder; Translations: [Muscle wasting and atrophy, not elsewhere classified, right shoulder] Onset: 08-21-2022 08-21-2022 Episodic Other connective tissue disease (12 sources) Impingement syndrome of left shoulder region; Translations: [Impingement syndrome of left shoulder] Onset: 08-21-2022 08-21-2022 Episodic Other connective tissue disease (12 sources) Full thickness rotator cuff tear; Translations: [Complete rotator cuff tear or rupture of right shoulder, not specified as traumatic] Onset: 05-04-2021 Resolved: 05-23-2023 05-23-2023 Episodic Other connective tissue disease (12 sources) Pain in limb; Translations: [Pain in unspecified limb] Onset: 08-21-2022 Resolved: 05-23-2023 05-23-2023 Episodic Other diseases of bladder and urethra (12 sources) Disorder of bladder; Translations: [Bladder disorder, unspecified] Onset: 05-04-2021 Resolved: 05-23-2023 05-23-2023 Chronic Other diseases of bladder and urethra (2 sources) Unspecified urethral stricture, male, unspecified site; Translations: [Stricture of male urethra, unspecified stricture type] Onset: 06-08-2023 Episodic Other diseases of bladder and urethra (1 source) Post-traumatic anterior urethral stricture; Translations: [Post-traumatic stricture of anterior urethra] Onset: 06-08-2023 Episodic Other lower respiratory disease (12 sources) Dyspnea; Translations: [Dyspnea, unspecified] Onset: 11-20-2011 08-21-2022 Episodic Other lower respiratory disease (16 sources) Multiple nodules of lung; Translations: [Other nonspecific abnormal finding of lung field] Onset: 05-23-2023 05-23-2023 Episodic Other lower respiratory disease (12 sources) Solitary nodule of lung; Translations: [Solitary pulmonary nodule] Onset: 08-21-2022 Resolved: 05-23-2023 05-23-2023 Episodic Other nervous system disorders (13 sources) Unable to walk; Translations: [Difficulty in walking, not elsewhere classified] Onset: 05-23-2023 Resolved: 05-23-2023 11-01-2018 Chronic Other nervous system disorders (12 sources) Abnormal gait; Translations: [Unspecified abnormalities of gait and mobility] Onset: 08-21-2022 08-21-2022 Episodic Other nervous system disorders (12 sources) Unsteady when standing; Translations: [Unsteadiness on feet] Onset: 05-04-2021 08-21-2022 Episodic Other nervous system disorders (12 sources) Skin sensation disturbance; Translations: [Unspecified disturbances of skin sensation] Onset: 08-21-2022 08-21-2022 Episodic Other non-traumatic joint disorders (20 sources) Chronic pain following right total knee arthroplasty; Translations: [Pain in right knee] Onset: 11-14-2019 12-19-2019 Episodic Other non-traumatic joint disorders (12 sources) Pain in left knee; Translations: [Pain in joint, lower leg] Onset: 08-21-2022 Resolved: 05-23-2023 05-23-2023 Episodic Other screening for suspected conditions (not mental disorders or infectious disease) (18 sources) Patient encounter status; Translations: [Encounter for screening for other disorder] Onset: 08-21-2022 Resolved: 05-23-2023 Episodic Other skin disorders (2 sources) Excessive sweating; Translations: [Generalized hyperhidrosis] 11-02-2023 Episodic Residual codes; unclassified (13 sources) Finding of activity of daily living; Translations: [Other general symptoms and signs] Onset: 05-23-2023 11-01-2018 Episodic Residual codes; unclassified (13 sources) Edema; Translations: [Edema, unspecified] Onset: 05-23-2023 11-04-2018 Episodic Residual codes; unclassified (2 sources) Other specified health status; Translations: [Self-catheterizes urinary bladder] Onset: 06-08-2023 Episodic Spondylosis; intervertebral disc disorders; other back problems (20 sources) Spinal stenosis in cervical region; Translations: [Spinal stenosis, cervical region] Onset: 03-12-2017 03-12-2017 Episodic Urinary tract infections (13 sources) Urinary tract infectious disease; Translations: [Urinary tract infection, site not specified] Onset: 05-23-2023 Resolved: 05-23-2023 11-01-2018 Episodic Results Test Name Value Interpretation Reference Range Facility [facility] 03-17-2024 NOHELIA Telephone (MARILY) FAHAD SOTELO ([id number]) 1950 M Date Time Provider Department 03/17/24 FADY DYE During your visit today, we recorded the following information about you: Luzma Scott 03/17/2024 9:17 AM Signed Orders faxed to [facility] [phone] Allergies As of Date: 03/17/2024 Noted Allergy Reaction BEE POLLEN 01/30/2014 7 - Swelling BEE STING 01/02/2019 7 - Swelling HAY FEVER (SEASONAL ALLERGIES) 04/12/2021 14 - Other: See Comments Comments: Sneezing. OXYBUTYNIN 06/20/2013 14 - Other: See Comments Comments: Other Reaction(s): Constipation VENOM-HONEY BEE 12/30/2018 14 - Other: See Comments 7 - Swelling Comments: Other Reaction(s): Unknown TROSPIUM 03/31/2014 14 - Other: See Comments Comments: Other Reaction(s): Xerostomia Date Reviewed: 02/26/2024 Reviewed by: Rozina Fiore LPN - Fully Assessed Prescriptions as of 03/17/2024 - trospium (SANCTURA) 20 mg tablet Take 1 tablet by mouth two times a day. - plecanatide (TRULANCE) 3 mg tablet Take 1 tablet by mouth once daily. - nitroglycerin sublingual (NITROQUICK) 0.4 mg SL tablet as directed Sublingual - Amoxicillin 500 mg tablet TAKE 4 TABLETS BY MOUTH 1 (ONE) HOUR BEFORE procedure then TAKE 2 TABLETS BY MOUTH 6 (SIX) hours after procedure - acetaminophen (TYLENOL) 500 mg tablet Take 2 tablets by mouth every 6 hours as needed for pain. - aspirin, enteric coated (ASPIRIN, ENTERIC COATED) 81 mg EC tablet Take 1 tablet by mouth twice daily. - metoprolol tartrate, short acting, (LOPRESSOR) 50 mg tablet Take 1 tablet by mouth twice daily. - COMPOUNDED PRESCRIPTION 16 fr catheters - lisinopril (ZESTRIL, PRINIVIL) 20 mg tablet Take 20 mg by mouth once daily. - ascorbic acid, vitamin C, (VITAMIN C) 500 mg tablet Take 1 tablet by mouth once daily. - MAGNESIUM HYDROXIDE (MILK OF MAGNESIA ORAL) Take 1 Bottle by mouth as needed. - isosorbide mononitrate ER (IMDUR) 60 mg 24 hr tablet Take 60 mg by mouth once daily. - cholecalciferol (VITAMIN D3) 1,000 unit tab tablet Take 1,000 Units by mouth once daily. - Multivitamin capsule Take 1 capsule by mouth once daily. - rosuvastatin (CRESTOR) 40 mg tablet Take 40 mg by mouth once daily. Problem List As Of Date 03/17/2024 Noted Resolved Shoulder weakness [R29.898] 03/12/2017 Brachial plexopathy [G54.0] 03/12/2017 Cervical spinal stenosis [M48.02] 03/12/2017 Cervical spondylosis with myelopathy [M47.12] 05/04/2017 Preop testing [Z01.818] 05/04/2017 CAD (coronary artery disease) [I25.10] 02/13/2004 Essential hypertension [I10] Mixed hyperlipidemia [E78.2] Cervical stenosis of spine [M48.02] 05/29/2017 Urge incontinence [N39.41] 06/20/2017 Obesity, Class I, BMI 30-34.9 [E66.811] 10/28/2018 Osteoarthritis of right knee [M17.11] 10/30/2018 Chronic knee pain after total replacement of ri*11/14/2019 History of lumbar fusion [Z98.1] 06/17/2020 Primary osteoarthritis of right hip [M16.11] 06/17/2020 Loose right total knee arthroplasty (HCC) [T84.*06/17/2020 Pre-op evaluation [Z01.818] 04/12/2021 Rotator cuff tear arthropathy of right shoulder*04/12/2021 Encounter Status:Closed by LUZMA SCOTT on 03/17/24 Normal [facility] CNOVon 02-26-2024 CNOV Office Visit (GENSAV ) FAHAD SOTELO ([id number]) 1950 M Date Time Provider Department 02/26/24 1:45 PM CHRIS CLEMENTS GENSAV During your visit today, we recorded the following information about you: Pulse Blood pressure Weight Height 57/minute 111/70 99.8 kg 1.765 m Chris Clements MD 02/26/2024 3:16 PM Signed Patient is referred by Stanton Velasco II, MD with recent right groin pain. A copy of dictation with recommendations to above by [employer] electronic medical record US mail. No prior groin or abdominal surgeries [facility] records verify confirmed update including past surgical medical social members medications and allergies. Further urology workup is undergoing for bladder difficulties. 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 He denies any changes in bowel or bladder habits otherwise. I would like to reexamine him in 2 months treat this is a right groin strain at this time although no known definite precipitating events were noted signs and symptoms red flags were also addressed. Can consider dynamic ultrasound of the right groin if continues to have discomfort and no hernia diagnosed clinically Referring Provider: FADY DYE [[id number]] Allergies As of Date: 02/26/2024 Noted Allergy Reaction BEE POLLEN 01/30/2014 7 - Swelling BEE STING 01/02/2019 7 - Swelling HAY FEVER (SEASONAL ALLERGIES) 04/12/2021 14 - Other: See Comments Comments: Sneezing. OXYBUTYNIN 06/20/2013 14 - Other: See Comments Comments: Other Reaction(s): Constipation VENOM-HONEY BEE 12/30/2018 14 - Other: See Comments 7 - Swelling Comments: Other Reaction(s): Unknown TROSPIUM 03/31/2014 14 - Other: See Comments Comments: Other Reaction(s): Xerostomia Date Reviewed: 02/26/2024 Reviewed by: Rozina Fiore LPN - Fully Assessed Reason for Visit: New Patient [172] Cmt: Right inguinal hernia Primary Visit Diagnosis:Unilateral groin pain [R10.30] Order(s):CONSULT TO GENERAL SURGERY [2546] Order #: [id number]: 1 Prescriptions as of 02/26/2024 - trospium (SANCTURA) 20 mg tablet Take 1 tablet by mouth two times a day. - plecanatide (TRULANCE) 3 mg tablet Take 1 tablet by mouth once daily. - nitroglycerin sublingual (NITROQUICK) 0.4 mg SL tablet as directed Sublingual - Amoxicillin 500 mg tablet TAKE 4 TABLETS BY MOUTH 1 (ONE) HOUR BEFORE procedure then TAKE 2 TABLETS BY MOUTH 6 (SIX) hours after procedure - acetaminophen (TYLENOL) 500 mg tablet Take 2 tablets by mouth every 6 hours as needed for pain. - aspirin, enteric coated (ASPIRIN, ENTERIC COATED) 81 mg EC tablet Take 1 tablet by mouth twice daily. - metoprolol tartrate, short acting, (LOPRESSOR) 50 mg tablet Take 1 tablet by mouth twice daily. - COMPOUNDED PRESCRIPTION 16 fr catheters - lisinopril (ZESTRIL, PRINIVIL) 20 mg tablet Take 20 mg by mouth once daily. - ascorbic acid, vitamin C, (VITAMIN C) 500 mg tablet Take 1 tablet by mouth once daily. - MAGNESIUM HYDROXIDE (MILK OF MAGNESIA ORAL) Take 1 Bottle by mouth as needed. - isosorbide mononitrate ER (IMDUR) 60 mg 24 hr tablet Take 60 mg by mouth once daily. - cholecalciferol (VITAMIN D3) 1,000 unit tab tablet Take 1,000 Units by mouth once daily. - Multivitamin capsule Take 1 capsule by mouth once daily. - rosuvastatin (CRESTOR) 40 mg tablet Take 40 mg by mouth once daily. Problem List As Of Date 02/26/2024 Noted Resolved Shoulder weakness [R29.898] 03/12/2017 Brachial plexopathy [G54.0] 03/12/2017 Cervical spinal stenosis [M48.02] 03/12/2017 Cervical spondylosis with myelopathy [M47.12] 05/04/2017 Preop testing [Z01.818] 05/04/2017 CAD (coronary artery disease) [I25.10] 02/13/2004 Essential hypertension [I10] Mixed hyperlipidemia [E78.2] Cervical stenosis of spine [M48.02] 05/29/2017 Urge incontinence [N39.41] 06/20/2017 Obesity, Class I, BMI 30-34.9 [E66.811] 10/28/2018 Osteoarthritis of right knee [M17.11] 10/30/2018 Chronic knee pain after total replacement of ri*11/14/2019 History of lumbar fusion [Z98.1] 06/17/2020 Primary osteoarthritis of right hip [M16.11] 06/17/2020 Loose right total knee arthroplasty (HCC) [T84.*06/17/2020 Pre-op evaluation [Z01.818] 04/12/2021 Rotator cuff tear arthropathy of right shoulder*04/12/2021 Encounter Status:Closed [facility] Telephone (UROLAV) FAHAD SOTELO ([id number]) 1950 M Date Time Provider Department 02/25/24 FADY DYE UROESAU During your visit today, we recorded the following information about you: Rachel Palencia MA 02/25/2024 4:43 PM Signed We received a fax from [employer]. I have the form, from [employer], in Dr. Dye's work bin. We will need Dr. Dye's signature and date signed on the form. When I spoke with the Pt he said he will be getting his cath supplies from [facility]. [employer] is there sister store owned by [facility]. Rachel Palencia MA 02/28/2024 3:09 PM Signed Form faxed to: [phone]. Transmitted OK - Confirmation Received. We will hold onto the paperwork in our hold for two (2) week bin. Afterwards, it will be sent to [facility] for scanning into the pt's chart. Luzma Scott 03/04/2024 11:43 AM Signed Patient states that he spoke with [employer] and they stated that a medical necessity form needs to be filled out. Shameka Vincent 03/07/2024 11:39 AM Signed Joseline from patients insurance calling stating the patient is trying to get his cath supplies and [employer] need the medical necessity forms sent to them. Please update patient. Nithya Horner PA-C 03/07/2024 12:10 PM Signed Medical necessity form? Not sure what they are referring to but in Dr aragon's note it does have the indication of why coude is needed. If you need anything from me let me know - otherwise id fax his office note Esmer Mock MA 03/07/2024 2:52 PM Signed Received form stating that they need to know why the coude is required. Last OV note sent. Conformation received. Allergies As of Date: 02/25/2024 Noted Allergy Reaction BEE POLLEN 01/30/2014 7 - Swelling BEE STING 01/02/2019 7 - Swelling HAY FEVER (SEASONAL ALLERGIES) 04/12/2021 14 - Other: See Comments Comments: Sneezing. OXYBUTYNIN 06/20/2013 14 - Other: See Comments Comments: Other Reaction(s): Constipation VENOM-HONEY BEE 12/30/2018 14 - Other: See Comments 7 - Swelling Comments: Other Reaction(s): Unknown TROSPIUM 03/31/2014 14 - Other: See Comments Comments: Other Reaction(s): Xerostomia Date Reviewed: 01/17/2024 Reviewed by: Aislinn Cordero RN - Fully Assessed Reason for Visit: Fax Received - [facility] [Other] Prescriptions as of 03/07/2024 - trospium (SANCTURA) 20 mg tablet Take 1 tablet by mouth two times a day. - plecanatide (TRULANCE) 3 mg tablet Take 1 tablet by mouth once daily. - nitroglycerin sublingual (NITROQUICK) 0.4 mg SL tablet as directed Sublingual - Amoxicillin 500 mg tablet TAKE 4 TABLETS BY MOUTH 1 (ONE) HOUR BEFORE procedure then TAKE 2 TABLETS BY MOUTH 6 (SIX) hours after procedure - acetaminophen (TYLENOL) 500 mg tablet Take 2 tablets by mouth every 6 hours as needed for pain. - aspirin, enteric coated (ASPIRIN, ENTERIC COATED) 81 mg EC tablet Take 1 tablet by mouth twice daily. - metoprolol tartrate, short acting, (LOPRESSOR) 50 mg tablet Take 1 tablet by mouth twice daily. - COMPOUNDED PRESCRIPTION 16 fr catheters - lisinopril (ZESTRIL, PRINIVIL) 20 mg tablet Take 20 mg by mouth once daily. - ascorbic acid, vitamin C, (VITAMIN C) 500 mg tablet Take 1 tablet by mouth once daily. - MAGNESIUM HYDROXIDE (MILK OF MAGNESIA ORAL) Take 1 Bottle by mouth as needed. - isosorbide mononitrate ER (IMDUR) 60 mg 24 hr tablet Take 60 mg by mouth once daily. - cholecalciferol (VITAMIN D3) 1,000 unit tab tablet Take 1,000 Units by mouth once daily. - Multivitamin capsule Take 1 capsule by mouth once daily. - rosuvastatin (CRESTOR) 40 mg tablet Take 40 mg by mouth once daily. Problem List As Of Date 02/25/2024 Noted Resolved Shoulder weakness [R29.898] 03/12/2017 Brachial plexopathy [G54.0] 03/12/2017 Cervical spinal stenosis [M48.02] 03/12/2017 Cervical spondylosis with myelopathy [M47.12] 05/04/2017 Preop testing [Z01.818] 05/04/2017 CAD (coronary artery disease) [I25.10] 02/13/2004 Essential hypertension [I10] Mixed hyperlipidemia [E78.2] Cervical stenosis of spine [M48.02] 05/29/2017 Urge incontinence [N39.41] 06/20/2017 Obesity, Class I, BMI 30-34.9 [E66.811] 10/28/2018 Osteoarthritis of right knee [M17.11] 10/30/2018 Chronic knee pain after total replacement of ri*11/14/2019 History of lumbar fusion [Z98.1] 06/17/2020 Primary osteoarthritis of right hip [M16.11] 06/17/2020 Loose right total knee arthroplasty (HCC) [T84.*06/17/2020 Pre-op evaluation [Z01.818] 04/12/2021 Rotator cuff tear arthropathy of right shoulder*04/12/2021 Encounter Status:Closed by RACHEL PALENCIA on 02/28/24 [facility] Telephone (URON) FAHAD SOTELO ([id number]) 1950 M Date Time Provider Department 02/22/24 FADY DYE During your visit today, we recorded the following information about you: Luzma Scott 02/22/2024 10:42 AM Signed Faxed orders for catheter supplies to [phone] Allergies As of Date: 02/22/2024 Noted Allergy Reaction BEE POLLEN 01/30/2014 7 - Swelling BEE STING 01/02/2019 7 - Swelling HAY FEVER (SEASONAL ALLERGIES) 04/12/2021 14 - Other: See Comments Comments: Sneezing. OXYBUTYNIN 06/20/2013 14 - Other: See Comments Comments: Other Reaction(s): Constipation VENOM-HONEY BEE 12/30/2018 14 - Other: See Comments 7 - Swelling Comments: Other Reaction(s): Unknown TROSPIUM 03/31/2014 14 - Other: See Comments Comments: Other Reaction(s): Xerostomia Date Reviewed: 01/17/2024 Reviewed by: Aislinn Cordero, LEATHA - Fully Assessed Reason for Visit: [employer] - Other [360] Prescriptions as of 02/22/2024 - trospium (SANCTURA) 20 mg tablet Take 1 tablet by mouth two times a day. - plecanatide (TRULANCE) 3 mg tablet Take 1 tablet by mouth once daily. - nitroglycerin sublingual (NITROQUICK) 0.4 mg SL tablet as directed Sublingual - Amoxicillin 500 mg tablet TAKE 4 TABLETS BY MOUTH 1 (ONE) HOUR BEFORE procedure then TAKE 2 TABLETS BY MOUTH 6 (SIX) hours after procedure - acetaminophen (TYLENOL) 500 mg tablet Take 2 tablets by mouth every 6 hours as needed for pain. - aspirin, enteric coated (ASPIRIN, ENTERIC COATED) 81 mg EC tablet Take 1 tablet by mouth twice daily. - metoprolol tartrate, short acting, (LOPRESSOR) 50 mg tablet Take 1 tablet by mouth twice daily. - COMPOUNDED PRESCRIPTION 16 fr catheters - lisinopril (ZESTRIL, PRINIVIL) 20 mg tablet Take 20 mg by mouth once daily. - ascorbic acid, vitamin C, (VITAMIN C) 500 mg tablet Take 1 tablet by mouth once daily. - MAGNESIUM HYDROXIDE (MILK OF MAGNESIA ORAL) Take 1 Bottle by mouth as needed. - isosorbide mononitrate ER (IMDUR) 60 mg 24 hr tablet Take 60 mg by mouth once daily. - cholecalciferol (VITAMIN D3) 1,000 unit tab tablet Take 1,000 Units by mouth once daily. - Multivitamin capsule Take 1 capsule by mouth once daily. - rosuvastatin (CRESTOR) 40 mg tablet Take 40 mg by mouth once daily. Problem List As Of Date 02/22/2024 Noted Resolved Shoulder weakness [R29.898] 03/12/2017 Brachial plexopathy [G54.0] 03/12/2017 Cervical spinal stenosis [M48.02] 03/12/2017 Cervical spondylosis with myelopathy [M47.12] 05/04/2017 Preop testing [Z01.818] 05/04/2017 CAD (coronary artery disease) [I25.10] 02/13/2004 Essential hypertension [I10] Mixed hyperlipidemia [E78.2] Cervical stenosis of spine [M48.02] 05/29/2017 Urge incontinence [N39.41] 06/20/2017 Obesity, Class I, BMI 30-34.9 [E66.811] 10/28/2018 Osteoarthritis of right knee [M17.11] 10/30/2018 Chronic knee pain after total replacement of ri*11/14/2019 History of lumbar fusion [Z98.1] 06/17/2020 Primary osteoarthritis of right hip [M16.11] 06/17/2020 Loose right total knee arthroplasty (HCC) [T84.*06/17/2020 Pre-op evaluation [Z01.818] 04/12/2021 Rotator cuff tear arthropathy of right shoulder*04/12/2021 Encounter Status:Closed by LUZMA SCOTT on 02/22/24 [facility] 02-18-2024 CNPN Telephone (URFMOB) FAHAD SOTELO ([id number]) 1950 M Date Time Provider Department 02/18/24 LOUIE SALOMON UROB During your visit today, we recorded the following information about you: Sourav Valles 02/18/2024 10:40 AM Signed Patient is calling into the office. He is requesting caths. He states that he needs 16F. Please assist, thank you Sheree Perdomo RN 02/20/2024 9:26 AM Signed Letter sent to [address] [place] [address] on 02/18/[address] Mejia office. Sheree Perdomo RN Allergies As of Date: 02/18/2024 Noted Allergy Reaction BEE POLLEN 01/30/2014 7 - Swelling BEE STING 01/02/2019 7 - Swelling HAY FEVER (SEASONAL ALLERGIES) 04/12/2021 14 - Other: See Comments Comments: Sneezing. OXYBUTYNIN 06/20/2013 14 - Other: See Comments Comments: Other Reaction(s): Constipation VENOM-HONEY BEE 12/30/2018 14 - Other: See Comments 7 - Swelling Comments: Other Reaction(s): Unknown TROSPIUM 03/31/2014 14 - Other: See Comments Comments: Other Reaction(s): Xerostomia Date Reviewed: 01/17/2024 Reviewed by: Aislinn Cordero RN - Fully Assessed Reason for Visit: Orders [681] Prescriptions as of 02/20/2024 - trospium (SANCTURA) 20 mg tablet Take 1 tablet by mouth two times a day. - plecanatide (TRULANCE) 3 mg tablet Take 1 tablet by mouth once daily. - nitroglycerin sublingual (NITROQUICK) 0.4 mg SL tablet as directed Sublingual - Amoxicillin 500 mg tablet TAKE 4 TABLETS BY MOUTH 1 (ONE) HOUR BEFORE procedure then TAKE 2 TABLETS BY MOUTH 6 (SIX) hours after procedure - acetaminophen (TYLENOL) 500 mg tablet Take 2 tablets by mouth every 6 hours as needed for pain. - aspirin, enteric coated (ASPIRIN, ENTERIC COATED) 81 mg EC tablet Take 1 tablet by mouth twice daily. - metoprolol tartrate, short acting, (LOPRESSOR) 50 mg tablet Take 1 tablet by mouth twice daily. - COMPOUNDED PRESCRIPTION 16 fr catheters - lisinopril (ZESTRIL, PRINIVIL) 20 mg tablet Take 20 mg by mouth once daily. - ascorbic acid, vitamin C, (VITAMIN C) 500 mg tablet Take 1 tablet by mouth once daily. - MAGNESIUM HYDROXIDE (MILK OF MAGNESIA ORAL) Take 1 Bottle by mouth as needed. - isosorbide mononitrate ER (IMDUR) 60 mg 24 hr tablet Take 60 mg by mouth once daily. - cholecalciferol (VITAMIN D3) 1,000 unit tab tablet Take 1,000 Units by mouth once daily. - Multivitamin capsule Take 1 capsule by mouth once daily. - rosuvastatin (CRESTOR) 40 mg tablet Take 40 mg by mouth once daily. Problem List As Of Date 02/18/2024 Noted Resolved Shoulder weakness [R29.898] 03/12/2017 Brachial plexopathy [G54.0] 03/12/2017 Cervical spinal stenosis [M48.02] 03/12/2017 Cervical spondylosis with myelopathy [M47.12] 05/04/2017 Preop testing [Z01.818] 05/04/2017 CAD (coronary artery disease) [I25.10] 02/13/2004 Essential hypertension [I10] Mixed hyperlipidemia [E78.2] Cervical stenosis of spine [M48.02] 05/29/2017 Urge incontinence [N39.41] 06/20/2017 Obesity, Class I, BMI 30-34.9 [E66.811] 10/28/2018 Osteoarthritis of right knee [M17.11] 10/30/2018 Chronic knee pain after total replacement of ri*11/14/2019 History of lumbar fusion [Z98.1] 06/17/2020 Primary osteoarthritis of right hip [M16.11] 06/17/2020 Loose right total knee arthroplasty (HCC) [T84.*06/17/2020 Pre-op evaluation [Z01.818] 04/12/2021 Rotator cuff tear arthropathy of right shoulder*04/12/2021 Encounter Status:Closed by SOURAV VALLES on 02/19/24 [facility] CNPN Telephone (UROLMN) FAHAD SOTELO ([id number]) 1950 M Date Time Provider Department 02/18/24 FADY DYE During your visit today, we recorded the following information about you: Luzma Scott 02/18/2024 2:04 PM Signed Pt needs a new script for medical supplies, doesn't have a company in mind because he recently got new insurance 16fr coude/pre lubricated 5xs a day Aislinn Montalvo RN 02/18/2024 2:29 PM Signed VV note addendum made from today, catheters ordered and faxed electronically to [address] [place] [address]. Aislinn Montalvo RN BSN Allergies As of Date: 02/18/2024 Noted Allergy Reaction BEE POLLEN 01/30/2014 7 - Swelling BEE STING 01/02/2019 7 - Swelling HAY FEVER (SEASONAL ALLERGIES) 04/12/2021 14 - Other: See Comments Comments: Sneezing. OXYBUTYNIN 06/20/2013 14 - Other: See Comments Comments: Other Reaction(s): Constipation VENOM-HONEY BEE 12/30/2018 14 - Other: See Comments 7 - Swelling Comments: Other Reaction(s): Unknown TROSPIUM 03/31/2014 14 - Other: See Comments Comments: Other Reaction(s): Xerostomia Date Reviewed: 01/17/2024 Reviewed by: Aislinn Cordero, LEATHA - Fully Assessed Reason for Visit: Orders [681] Prescriptions as of 02/18/2024 - trospium (SANCTURA) 20 mg tablet Take 1 tablet by mouth two times a day. - plecanatide (TRULANCE) 3 mg tablet Take 1 tablet by mouth once daily. - nitroglycerin sublingual (NITROQUICK) 0.4 mg SL tablet as directed Sublingual - Amoxicillin 500 mg tablet TAKE 4 TABLETS BY MOUTH 1 (ONE) HOUR BEFORE procedure then TAKE 2 TABLETS BY MOUTH 6 (SIX) hours after procedure - acetaminophen (TYLENOL) 500 mg tablet Take 2 tablets by mouth every 6 hours as needed for pain. - aspirin, enteric coated (ASPIRIN, ENTERIC COATED) 81 mg EC tablet Take 1 tablet by mouth twice daily. - metoprolol tartrate, short acting, (LOPRESSOR) 50 mg tablet Take 1 tablet by mouth twice daily. - COMPOUNDED PRESCRIPTION 16 fr catheters - lisinopril (ZESTRIL, PRINIVIL) 20 mg tablet Take 20 mg by mouth once daily. - ascorbic acid, vitamin C, (VITAMIN C) 500 mg tablet Take 1 tablet by mouth once daily. - MAGNESIUM HYDROXIDE (MILK OF MAGNESIA ORAL) Take 1 Bottle by mouth as needed. - isosorbide mononitrate ER (IMDUR) 60 mg 24 hr tablet Take 60 mg by mouth once daily. - cholecalciferol (VITAMIN D3) 1,000 unit tab tablet Take 1,000 Units by mouth once daily. - Multivitamin capsule Take 1 capsule by mouth once daily. - rosuvastatin (CRESTOR) 40 mg tablet Take 40 mg by mouth once daily. Problem List As Of Date 02/18/2024 Noted Resolved Shoulder weakness [R29.898] 03/12/2017 Brachial plexopathy [G54.0] 03/12/2017 Cervical spinal stenosis [M48.02] 03/12/2017 Cervical spondylosis with myelopathy [M47.12] 05/04/2017 Preop testing [Z01.818] 05/04/2017 CAD (coronary artery disease) [I25.10] 02/13/2004 Essential hypertension [I10] Mixed hyperlipidemia [E78.2] Cervical stenosis of spine [M48.02] 05/29/2017 Urge incontinence [N39.41] 06/20/2017 Obesity, Class I, BMI 30-34.9 [E66.811] 10/28/2018 Osteoarthritis of right knee [M17.11] 10/30/2018 Chronic knee pain after total replacement of ri*11/14/2019 History of lumbar fusion [Z98.1] 06/17/2020 Primary osteoarthritis of right hip [M16.11] 06/17/2020 Loose right total knee arthroplasty (HCC) [T84.*06/17/2020 Pre-op evaluation [Z01.818] 04/12/2021 Rotator cuff tear arthropathy of right shoulder*04/12/2021 Encounter Status:Closed by LUZMA SCOTT on 02/18/24 Normal [facility] CBC (INCLUDES DIFF/PLT)on Basophils (Bld) [#/Vol] 0.033 10*3/uL Normal 0-200 [facility] Comment on above: Performed By: #### 7 600, 45787, 6399 #### [facility] [place] [address] Twisting Frame Operator: Nathanael Nguyen MD Basophils/100 WBC (Bld) 0.5 % Normal [facility] Comment on above: Performed By: #### 7 600, 81259, 6399 #### [facility] [place] [address] Twisting [employer] Operator: Nathanael Nguyen MD Eosinophils (Bld) [#/Vol] 0.052 10*3/uL Normal 15-500 [facility] Comment on above: Performed By: #### 7 600, 51269, 6399 #### [facility] [place] [address] Twisting Frame Operator: Nathanael Nguyen MD Eosinophils/100 WBC (Bld) 0.8 % Normal [facility] Comment on above: Performed By: #### 7 600, 50314, 5499 #### [facility] [place] [address] Twisting [employer] Operator: Nathanael Nguyen MD Erythrocyte distribution width (RBC) [Ratio] 11.8 % Normal 11.0-15.0 [facility] Comment on above: Performed By: #### 7 600, 79858, 6399 #### [facility] of [place] [address] Twisting Frame Operator: Nathanael Nguyen MD Hematocrit (Bld) [Volume fraction] 47.9 % Normal 38.5-50.0 [facility] Comment on above: Performed By: #### 7 600, 48018, 6399 #### [facility] [place] [address] Twisting Frame Operator: Nathanael Nguyen MD Hemoglobin (Bld) [Mass/Vol] 16.1 g/dL Normal 13.2-17.1 [facility] Comment on above: Performed By: #### 7 600, 24086, 6399 #### [facility] [place] [address] Twisting [employer] Operator: Nathanael Nguyen MD Lymphocytes (Bld) [#/Vol] 1.892 10*3/uL Normal 850-3900 [facility] Comment on above: Performed By: #### 7 600, 07227, 6399 #### [facility] [place] [address] Twisting [employer] Operator: Nathanael Nguyen MD Lymphocytes/100 WBC (Bld) 29.1 % Normal [facility] Comment on above: Performed By: #### 7 600, 20134, 6399 #### [facility] [place] [address] Twisting Frame Operator: Nathanael Nguyen MD MCH (RBC) [Entitic mass] 31.0 pg Normal 27.0-33.0 [facility] Comment on above: Performed By: #### 7 600, 60976, 6399 #### [facility] [place] [address] Twisting Frame Operator: Nathanael Nguyen MD MCHC (RBC) [Mass/Vol] 33.6 g/dL Normal 32.0-36.[address] [facility] Comment on above: Result Comment: For adults, a slight decrease in the calculated MCHC value (in the range of 30 to 32 g/dL) is most likely not clinically significant; however, it should be interpreted with caution in correlation with other red cell parameters and the patient's clinical condition. Performed By: #### 7 600, 11666, 6399 #### [facility] of [address], [address] [place] [address] Twisting Frame Operator: Nathanael Nguyen MD MCV (RBC) [Entitic vol] 92.3 fL Normal 80.0-100.0 [facility] Comment on above: Performed By: #### 7 600, , 6399 #### [facility] of [place] [address] Twisting Frame Operator: Nathanael Nguyen MD Monocytes (Bld) [#/Vol] 0.585 10*3/uL Normal 200-950 [facility] Comment on above: Performed By: #### 7 600, , 6399 #### [facility] of [address], [address] [place] [address] Twisting Frame Operator: Nathanael Nguyen MD Monocytes/100 WBC (Bld) 9.0 % Normal [facility] Comment on above: Performed By: #### 7 600, 79589, 6399 #### [facility] [place] [address] Twisting Frame Operator: Nathanael Nguyen MD Neutrophils (Bld) [#/Vol] 3.939 10*3/uL Normal 8194-2460 [facility] Comment on above: Performed By: #### 7 600, 10756, 6399 #### [facility] of [address], [address] [place] [address] Twisting Frame Operator: Nathanael Nguyen MD Neutrophils/100 WBC (Bld) 60.6 % Normal [facility] Comment on above: Performed By: #### 7 600, 20109, 6399 #### [facility] of [place] [address] Twisting [employer] Operator: Nathanael Nguyen MD Platelet mean volume (Bld) [Entitic vol] 10.7 fL Normal 7.5-12.5 [facility] Comment on above: Performed By: #### 7 600, 51377, 6399 #### [facility] [place] [address] Twisting Frame Operator: Nathanael Nguyen MD Platelets (Bld) [#/Vol] 201 10*3/uL Normal 140-400 [facility] Comment on above: Performed By: #### 7 600, 49989, 6399 #### [facility] of [address], [address] [place] [address] Twisting Frame Operator: Nathanael Nguyen MD RBC (Bld) [#/Vol] 5.19 10*6/uL Normal 4.20-5.80 [facility] Comment on above: Performed By: #### 7 600, 59939, 6399 #### [facility] of [place] [address] Twisting Frame Operator: Nathanael Nguyen MD WBC (Bld) [#/Vol] 6.5 10*3/uL Normal 3.8-10.8 [facility] Comment on above: Performed By: #### 7 600, 25354, 6399 #### [facility] [place] [address] Twisting Frame Operator: Nathanael Nguyen MD COMPREHENSIVE METABOLIC PANE [facility] 02-16-2024 Albumin [Mass/Vol] 4.3 g/dL Normal 3.6-5.1 [facility] Comment on above: Performed By: #### 7 600, 55445, 6399 #### [facility] of [place] [address] Twisting Frame Operator: Nathanael Nguyen MD Albumin/Globulin [Mass ratio] 2.0 {ratio} Normal 1.0-2.5 [facility] Comment on above: Performed By: #### 7 600, 83859, 6399 #### [facility] [place] [address] Twisting Frame Operator: Nathanael Nguyen MD ALP [Catalytic activity/Vol] 58 U/L Normal 35-144 [facility] Comment on above: Performed By: #### 7 600, 12980, 6399 #### [facility] [place] [address] Twisting Frame Operator: Nathanael Nguyen MD ALT [Catalytic activity/Vol] 14 U/L Normal 9-46 [facility] Comment on above: Performed By: #### 7 600, 74349, 6399 #### [facility] of [address], [address] [place] [address] Twisting Frame Operator: Nathanael Nguyen MD AST [Catalytic activity/Vol] 13 U/L Normal 10-35 [facility] Comment on above: Performed By: #### 7 600, 78767, 6399 #### [facility] [place] [address] Twisting [employer] Operator: Nathanael Nguyen MD Bilirubin [Mass/Vol] 0.7 mg/dL Normal 0.2-1.2 [facility] Comment on above: Performed By: #### 7 600, 89753, 6399 #### [facility] [place] [address] Twisting Frame Operator: Nathanael Nguyen MD BUN/CREATININE RATIO SEE NOTE: Normal 6-22 [facility] Comment on above: Result Comment: Not Reported: BUN and Creatinine are within reference range. Performed By: #### 7 600, 41388, 6399 #### [facility] of [address], [address] [place] [address] Twisting Frame Operator: Nathanael Nguyen MD Calcium [Mass/Vol] 9.0 mg/dL Normal 8.6-10.3 [facility] Comment on above: Performed By: #### 7 600, 57781, 6399 #### [facility] [place] [address] Twisting Frame Operator: Nathanael Nguyen MD Chloride [Moles/Vol] 103 mmol/L Normal 98-110 [facility] Comment on above: Performed By: #### 7 600, 35399, 6399 #### [facility] of [place] [address], [address] [place] [address] Twisting Frame Operator: Nathanael Nguyen MD CO2 [Moles/Vol] 31 mmol/L Normal 20-32 [facility] Comment on above: Performed By: #### 7 600, 54773, 6399 #### [facility] of [address], [address] [place] [address] Twisting Frame Operator: Nathanael Nguyen MD Creatinine [Mass/Vol] 0.75 mg/dL Normal 0.70-1.[address] [facility] [address] [facility] Comment on above: Performed By: #### 7 600, 94384, 6399 #### [facility] [place] [address] Twisting [employer] Operator: Nathanael Nguyen MD GFR/1.73 sq M.predicted among non-blacks MDRD (S/P/Bld) [Vol rate/Area] 94 mL/min/{1.73_m2} Normal > OR = 60 [facility] Comment on above: Performed By: #### 7 600, 25104, 6399 #### [facility] [address], [address] [place] [address] Twisting Frame Operator: Nathanael Nguyen MD Globulin (S) [Mass/Vol] 2.2 g/dL Normal 1.9-3.7 [facility] Comment on above: Performed By: #### 7 600, 78729, 6399 #### [facility] [place] [address] Twisting Frame Operator: Nathanael Nguyen MD Glucose [Mass/Vol] 107 mg/dL High 65-99 [facility] Comment on above: Result Comment: Fasting reference interval For someone without known diabetes, a glucose value between 100 and 125 mg/dL is consistent with prediabetes and should be confirmed with a follow-up test. Performed By: #### 7 600, 34148, 6399 #### [facility] [address], [address] [place] [address] Twisting Frame Operator: Nathanael Nguyen MD Potassium [Moles/Vol] 4.3 mmol/L Normal 3.5-5.[address] [facility] Comment on above: Performed By: #### 7 600, 26396, 6399 #### [facility] of [address], [address] [place] [address] Twisting Frame Operator: Nathanael Nguyen MD Protein [Mass/Vol] 6.5 g/dL Normal 6.1-8.1 [facility] Comment on above: Performed By: #### 7 600, 21423, 6399 #### [facility] of [address], [address] [place] [address] Twisting Frame Operator: Nathanael Nguyen MD Sodium [Moles/Vol] 140 mmol/L Normal 135-146 [facility] Comment on above: Performed By: #### 7 600, 97588, 6399 #### [facility] of [address], [address] [place] [address] Twisting Frame Operator: Nathanael Nguyen MD Urea nitrogen [Mass/Vol] 13 mg/dL Normal 7-25 [facility] Comment on above: Performed By: #### 7 600, 42493, 6399 #### [facility] of [place] [address] Twisting Frame Operator: Nathanael Nguyen MD LIPID PANEL, [facility] Cholesterol [Mass/Vol] 129 mg/dL Normal <200 [facility] Comment on above: Order Comment: FASTI NG:YES FASTING: YES Performed By: #### 7 600, 63600, 6399 #### [facility] of [address], [address] [place] [address] Twisting Frame Operator: Nathanael Nguyen MD Cholesterol in HDL [Mass/Vol] 43 mg/dL Normal > OR = 40 [facility] Comment on above: Order Comment: FASTI NG:YES FASTING: YES Performed By: #### 7 600, 53768, 6399 #### [facility] of [address], [address] [place] [address] Twisting Frame Operator: Nathanael Nguyen MD Cholesterol in LDL [Mass/Vol] 68 mg/dL Normal [facility] Comment on above: Order Comment: FASTI NG:YES FASTING: YES Result Comment: Refe rence range: <100 Desirable range <100 mg/dL for primary prevention; <70 mg/dL for patients with CHD or diabetic patients with > or = 2 CHD risk factors. LDL-C is now calculated using the Guillermina calculation, which is a validated novel method providing better accuracy than the Friedewald equation in the estimation of LDL-C. Talha SS et al. MANPREET. 2013;310(19): 5567-1146 (http://education.CasaSwap.com/faq/TWL939) Performed By: #### 7 600, 51550, 6399 #### [facility] [address], [address] [place] [address] Twisting Frame Operator: Nathanael Nguyen MD Cholesterol.total/Cho lesterol in HDL [Mass ratio] 3.0 {ratio} Normal <5.0 [facility] Comment on above: Order Comment: FASTI NG:YES FASTING: YES Performed By: #### 7 600, 11492, 6399 #### [facility] [address], [address] [place] [address] Twisting Frame Operator: Nathanael Nguyen MD NON HDL CHOLESTEROL 86 mg/dL (calc) Normal <130 [facility] Comment on above: Order Comment: FASTI NG:YES FASTING: YES Result Comment: For patients with diabetes plus 1 major ASCVD risk factor, treating to a non-HDL-C goal of <100 mg/dL (LDL-C of <70 mg/dL) is considered a therapeutic option. Performed By: #### 7 600, 10069, 6399 #### [facility] [address], [address] [place] [address] Twisting Frame Operator: Nathanael Nguyen MD Triglyceride [Mass/Vol] 97 mg/dL Normal <150 [facility] Comment on above: Order Comment: FASTI NG:YES FASTING: YES Performed By: #### 7 600, 70075, 6399 #### [facility] [address], [address] [place] [address] Twisting Frame Operator: Nathanael Nguyen MD PSA, TOTALon 02-16-2024 PSA, TOTAL 0.34 ng/mL Normal < OR = 4.00 [facility] Comment on above: Result Comment: The total PSA value from this assay system is standardized against the WHO standard. The test result will be approximately 20% lower when compared to the equimolar-standardized total PSA ([facility] [place]). Comparison of serial PSA results should be interpreted with this fact in mind. This test was performed using the Siemens chemiluminescent method. Values obtained from different assay methods cannot be used interchangeably. PSA levels, regardless of value, should not be interpreted as absolute evidence of the presence or absence of disease. Performed By: #### 7 600, 69311, 6399 #### [facility] [address], [address] [place] [address] Twisting Frame Operator: Nathanael Nguyen MD Urine Cultureon 01-25-2024 Bacteria identified Cx Nom (U) 25,000 colonies/ml mixed bacterial skin contaminants 2 Days PERFORMED BY: [place] [address] PATHOLOGIST TALENT ACQUISITION LEAD JENNI GREEN M.D. [place] [facility] Comment on above: Performed By: #### C UU #### [address] CNOVon 01-17-2024 CNOV Office Visit (UROLAV ) FAHAD SOTELO ([id number]) 1950 M Date Time Provider Department 01/17/24 2:00 PM FADY DYE UROLAV During your visit today, we recorded the following information about you: Fady Dye MD 01/17/2024 1:55 PM Signed HPI: 73 M w CAD, OAB, slightly reduced bladder compliance, urgency, frequency, urethral stricture on self dilation Botox and urethral dilation of FN stricture in July 2023 UDS after botox 300mls capacity Lots of pabd activity Strong desire at 270, No obvious DO or rise in pdet with permission to void Normal compliance Cathed for 300 Prior UDS showed borderline compliance (prior to botox) RBUS normal in June Today He didn't like the botox because it made harder to void holds his breath to pee (sounds like valsalva) Voids or caths every 2-3 hours Caths three times a day Now nocturia 4-5 times Even before botox had to strain to void Had no pain or difficulty with cathing but last shipment of catheters was different and he is having more discomfort with this - coude tip is too curved Drinks pepsi and artifical additives to water I don't drink hardly at all Constipated or diarrhea Takes colace PAST MEDICAL HISTORY Diagnosis Date CAD (coronary artery disease) 2004 [place] in 1997. Had a stent placed in 2008 c/b coronary artery dissection and that lead to a CABG x1 in 2008 Former smoker quit 1997 Hyperlipidemia Hypertension Intermittent self-catheterization of bladder Urge incontinence of urine PAST SURGICAL HISTORY Procedure Laterality Date ARTHRP KNE CONDYLEANDPLATU MEDIALANDLAT COMPARTMENTS 10/30/2018 right CABG (1) VEIN GRAFT AND ARTERIAL GRAFT 2008 coronary dissection during stent placement CHEMODNRVTJ [facility] INNERVATED FACIAL NRV [facility] CYSTO.PANENDO 11/24/2021 Dr. Dye CYSTO.PANENDO 05/31/2022 CYSTO.PANENDO N/A 06/04/2023 CYSTOSCOPY 03/29/2017 Dr. Fady Dye - [facility] LEFT HEART CATH,PERCUTANEOUS 05/11/2003 Cardiac cath, L heart LEFT HEART CATH,PERCUTANEOUS 12/08/2009 Cardiac cath, L heart LEFT HEART CATH,PERCUTANEOUS 03/15/2011 Cardiac cath, L heart with Stent placement OHS OFF PUMP PAST SURGICAL HISTORY OF Lumbar spine surgery. PAST SURGICAL HISTORY OF 05/29/2017 cervical spine surgery with fusion ROTATOR CUFF REPAIR Left 2016 TRURL ELECTROSURG RESCJ PROSTATE BLEED COMPLETE URODYNAMICS 03/29/2017 Procedure done by Nava Back LPN, [facility] Social History Tobacco Use Smoking status: Former Current packs/day: 0.00 Average packs/day: 1.3 packs/day for 10.0 years (12.5 ttl pk-yrs) Types: Cigarettes Start date: 11/14/1987 Quit date: 11/13/1997 Years since quittin.1 Smokeless tobacco: Never Vaping Use Vaping status: Never Used Substance Use Topics Alcohol use: Yes Comment: 2 cans of beer per year. Drug use: No Comment: denies tx for drug/alcohol abuse in the past. Current Outpatient Medications Medication Sig Dispense Refill plecanatide (TRULANCE) 3 mg tablet Take 1 tablet by mouth once daily. nitroglycerin sublingual (NITROQUICK) 0.4 mg SL tablet as directed Sublingual acetaminophen (TYLENOL) 500 mg tablet Take 2 tablets by mouth every 6 hours as needed for pain. aspirin, enteric coated (ASPIRIN, ENTERIC COATED) 81 mg EC tablet Take 1 tablet by mouth twice daily. 84 tablet 0 metoprolol tartrate, short acting, (LOPRESSOR) 50 mg tablet Take 1 tablet by mouth twice daily. COMPOUNDED PRESCRIPTION 16 fr catheters 30 Device 11 lisinopril (ZESTRIL, PRINIVIL) 20 mg tablet Take 20 mg by mouth once daily. 3 ascorbic acid, vitamin C, (VITAMIN C) 500 mg tablet Take 1 tablet by mouth once daily. MAGNESIUM HYDROXIDE (MILK OF MAGNESIA ORAL) Take 1 Bottle by mouth as needed. isosorbide mononitrate ER (IMDUR) 60 mg 24 hr tablet Take 60 mg by mouth once daily. cholecalciferol (VITAMIN D3) 1,000 unit tab tablet Take 1,000 Units by mouth once daily. Multivitamin capsule Take 1 capsule by mouth once daily. rosuvastatin (CRESTOR) 40 mg tablet Take 40 mg by mouth once daily. trospium (SANCTURA) 20 mg tablet Take 1 tablet by mouth two times a day. (Patient not taking: Reported on 01/17/2024) 30 tablet 4 Amoxicillin 500 mg tablet TAKE 4 TABLETS BY MOUTH 1 (ONE) HOUR BEFORE procedure then TAKE 2 TABLETS BY MOUTH 6 (SIX) hours after procedure 6 tablet 3 No current facility-administered medications for this visit. ROS: Constitutional: negative Gastrointestinal: negative PHYSICAL EXAM: There were no vitals taken for this visit. GENERAL: Wnl nutrition, no deformities, healthy appearing DATA/OR LABS TO BE REVIEWED: (Simple=1 data point; Complex= 2 or more) PSA (ng/mL) Date Value 03/09/2020 0.31 Creatinine (mg/dL) Date Value 07/05/2023 0.74 04/12/2021 0.89 10/31/2018 0.84 10/30/2018 0.85 10/10/2018 0.95 06/29/2017 0.88 (more content not included)... Normal [facility] BACTERIA UR CULTon 12-13 [facility] BACTERIA UR CULT ORGANISM ID: 1 Abnormal [facility] BACTERIA UR CULT >=100,000 CFU/ml Escherichia coli [facility] BACTERIA UR CULT ORGANISM ID: 1 (ESCHERICHIA COLI) -- ANTIBIOTIC INTERPRETATION RL STATUS REFERENCE RANGE -- Abnormal [facility] BACTERIA UR CULT Ampicillin S <=2 F Susceptible <=8 , Intermediate >8 , Resistant >16 Abnormal [facility] BACTERIA UR CULT Cefazolin S <=4 F Susceptible 0-16 , Intermediate <0 or >16 , Resistant >16 Abnormal [facility] BACTERIA UR CULT For uncomplicated urinary tract infections, cefazolin results can be used to predict susceptibility or resistance to cephalexin. [facility] BACTERIA UR CULT Ceftriaxone S <=1 F Susceptible <=1 , Intermediate >1 , Resistant >=4 Abnormal [facility] BACTERIA UR CULT Cefepime S <=1 F Susceptible <=2 , Susceptible-Dose Dependent >2 , Resistant >=16 Abnormal [facility] BACTERIA UR CULT Ertapenem S <=0.5 F Susceptible <=0.5 , Intermediate >.5 , Resistant >1 Abnormal [facility] BACTERIA UR CULT Meropenem S <=0.25 F Susceptible <=1 , Intermediate >1 , Resistant >2 Abnormal [facility] BACTERIA UR CULT Ampicillin/Sulbact S <=2 F Susceptible <=8 , Intermediate >8 , Resistant >16 Abnormal [facility] BACTERIA UR CULT Piperacillin/Tazoba c S <=4 F Susceptible <16 , Susceptible-Dose Dependent >=16 , Resistant >=32 Abnormal [facility] BACTERIA UR CULT Gentamicin S <=1 F Susceptible <=2 , Intermediate >2 , Resistant >=8 Abnormal [facility] BACTERIA UR CULT Tobramycin S <=1 F Susceptible <4 , Intermediate >=4 , Resistant >=8 Abnormal [facility] BACTERIA UR CULT Trimeth sulfameth S <=20 F Susceptible <=40 , Resistant >40 Abnormal [facility] BACTERIA UR CULT Ciprofloxacin S <=0 .25 F Susceptible <0.5 , Intermediate >=.5 , Resistant >=1 Abnormal [facility] BACTERIA UR CULT Nitrofurantoin S <= 16 F Susceptible <=32 , Intermediate >32 , Resistant >64 Abnormal [facility] Interpretation and review of laboratory results Abnormal [facility] Original Ordering Provider: LOUIE SALOMON [facility] 12-14-2023 [facility] Telephone (URORASHID) FAHAD SOTELO ([id number]) 1950 M Date Time Provider Department 12/14/23 DAIJA LARES During your visit today, we recorded the following information about you: Daija Lares PA-C 12/14/2023 3:31 PM Signed Fahad Sotelo [id number] Called patient re: recent urine culture with Dr. Salomon. No answer. Left with call back number. Sent Rx for bactrim to local pharmacy. Daija Lares PA-C 12/14/2023 3:31 PM Allergies As of Date: 12/14/2023 Noted Allergy Reaction BEE POLLEN 01/30/2014 7 - Swelling BEE STING 01/02/2019 7 - Swelling HAY FEVER (SEASONAL ALLERGIES) 04/12/2021 14 - Other: See Comments Comments: Sneezing. OXYBUTYNIN 06/20/2013 14 - Other: See Comments Comments: Other Reaction(s): Constipation VENOM-HONEY BEE 12/30/2018 14 - Other: See Comments 7 - Swelling Comments: Other Reaction(s): Unknown TROSPIUM 03/31/2014 14 - Other: See Comments Comments: Other Reaction(s): Xerostomia Date Reviewed: 12/12/2023 Reviewed by: Fela Teran LPN - Fully Assessed Reason for Visit: Results [95] Prescriptions as of 12/14/2023 - sulfamethoxazole-trime thoprim (BACTRIM DS) 800-160 mg per tablet Take 1 tablet by mouth two times a day for 10 days. - trospium (SANCTURA) 20 mg tablet Take 1 tablet by mouth two times a day. - plecanatide (TRULANCE) 3 mg tablet Take 1 tablet by mouth once daily. - nitroglycerin sublingual (NITROQUICK) 0.4 mg SL tablet as directed Sublingual - Amoxicillin 500 mg tablet TAKE 4 TABLETS BY MOUTH 1 (ONE) HOUR BEFORE procedure then TAKE 2 TABLETS BY MOUTH 6 (SIX) hours after procedure - acetaminophen (TYLENOL) 500 mg tablet Take 2 tablets by mouth every 6 hours as needed for pain. - aspirin, enteric coated (ASPIRIN, ENTERIC COATED) 81 mg EC tablet Take 1 tablet by mouth twice daily. - metoprolol tartrate, short acting, (LOPRESSOR) 50 mg tablet Take 1 tablet by mouth twice daily. - COMPOUNDED PRESCRIPTION 16 fr catheters - lisinopril (ZESTRIL, PRINIVIL) 20 mg tablet Take 20 mg by mouth once daily. - ascorbic acid, vitamin C, (VITAMIN C) 500 mg tablet Take 1 tablet by mouth once daily. - MAGNESIUM HYDROXIDE (MILK OF MAGNESIA ORAL) Take 1 Bottle by mouth as needed. - isosorbide mononitrate ER (IMDUR) 60 mg 24 hr tablet Take 60 mg by mouth once daily. - cholecalciferol (VITAMIN D3) 1,000 unit tab tablet Take 1,000 Units by mouth once daily. - Multivitamin capsule Take 1 capsule by mouth once daily. - rosuvastatin (CRESTOR) 40 mg tablet Take 40 mg by mouth once daily. Problem List As Of Date 12/14/2023 Noted Resolved Shoulder weakness [R29.898] 03/12/2017 Brachial plexopathy [G54.0] 03/12/2017 Cervical spinal stenosis [M48.02] 03/12/2017 Cervical spondylosis with myelopathy [M47.12] 05/04/2017 Preop testing [Z01.818] 05/04/2017 CAD (coronary artery disease) [I25.10] 02/13/2004 Essential hypertension [I10] Mixed hyperlipidemia [E78.2] Cervical stenosis of spine [M48.02] 05/29/2017 Urge incontinence [N39.41] 06/20/2017 Obesity, Class I, BMI 30-34.9 [E66.811] 10/28/2018 Osteoarthritis of right knee [M17.11] 10/30/2018 Chronic knee pain after total replacement of ri*11/14/2019 History of lumbar fusion [Z98.1] 06/17/2020 Primary osteoarthritis of right hip [M16.11] 06/17/2020 Loose right total knee arthroplasty (HCC) [T84.*06/17/2020 Pre-op evaluation [Z01.818] 04/12/2021 Rotator cuff tear arthropathy of right shoulder*04/12/2021 Encounter Status:Closed by DAIJA LARES on 12/14/23 [facility] Bacteria Cult 4 Bacteria identified Cx Nom (U) ORGANISM ID: 1 >=100,000 CFU/ml Escherichia coli ORGANISM ID: 1 (ESCHERICHIA COLI) -- ANTIBIOTIC INTERPRETATION RL STATUS REFERENCE RANGE -- Ampicillin S <=2 F Susceptible <=8 , Intermediate >8 , Resistant >16 Cefazolin S <=4 F Susceptible 0-16 , Intermediate <0 or >16 , Resistant >16 For uncomplicated urinary tract infections, cefazolin results can be used to predict susceptibility or resistance to cephalexin. Ceftriaxone S <=1 F Susceptible <=1 , Intermediate >1 , Resistant >=4 Cefepime S <=1 F Susceptible <=2 , Susceptible-Dose Dependent >2 , Resistant >=16 Ertapenem S <=0.5 F Susceptible <=0.5 , Intermediate >.5 , Resistant >1 Meropenem S <=0.25 F Susceptible <=1 , Intermediate >1 , Resistant >2 Ampicillin/Sulbact S <=2 F Susceptible <=8 , Intermediate >8 , Resistant >16 Piperacillin/Tazobac S <=4 F Susceptible <16 , Susceptible-Dose Dependent >=16 , Resistant >=32 Gentamicin S <=1 F Susceptible <=2 , Intermediate >2 , Resistant >=8 Tobramycin S <=1 F Susceptible <4 , Intermediate >=4 , Resistant >=8 Trimeth sulfameth S <=20 F Susceptible <=40 , Resistant >40 Ciprofloxacin S <=0.25 F Susceptible <0.5 , Intermediate >=.5 , Resistant >=1 Nitrofurantoin S <=16 F Susceptible <=32 , Intermediate >32 , Resistant >64 Abnormal [facility] Comment on above: Performed By: #### 6 ####[facility] [id number] [address] [place] 12-12-2023 CNOV Office Visit (URFMOB ) SHEYMICHELLEFAHAD Yu ([id number]) 1950 M Date Time Provider Department 12/12/23 1:30 PM LOUIE SALOMON During your visit today, we recorded the following information about you: Pulse Blood pressure 63/minute 130/72 Fela Teran LPN 12/12/2023 1:23 PM Signed Post Void Residual done on patient with 110 cc residual volume remaining. MD notified. ARACELI Mitchell Molly, MD 12/12/2023 4:56 PM Addendum HPI: 73 M w CAD, OAB, slightly reduced bladder compliance, urgency, frequency, urethral stricture on self dilation Botox and urethral dilation of FN stricture in July 2023 UDS after botox 300mls capacity Lots of pabd activity Strong desire at 270, No obvious DO or rise in pdet with permission to void Normal compliance Cathed for 300 Prior UDS showed borderline compliance (prior to botox) RBUS normal in June Today He didn't like the botox because it made harder to void holds his breath to pee (sounds like valsalva) Voids or caths every 2-3 hours Caths three times a day Now nocturia 4-5 times Even before botox had to strain to void Had no pain or difficulty with cathing but last shipment of catheters was different and he is having more discomfort with this - coude tip is too curved Drinks pepsi and artifical additives to water I don't drink hardly at all Constipated or diarrhea Takes colace PAST MEDICAL HISTORY Diagnosis Date CAD (coronary artery disease) 2005 LA in 1997. Had a stent placed in 2008 c/b coronary artery dissection and that lead to a CABG x1 in 2008 Former smoker quit 1997 Hyperlipidemia Hypertension Intermittent self-catheterization of bladder Urge incontinence of urine PAST SURGICAL HISTORY Procedure Laterality Date ARTHRP KNE CONDYLEANDPLATU MEDIALANDLAT COMPARTMENTS 10/30/2018 right CABG (1) VEIN GRAFT AND ARTERIAL GRAFT 2009 coronary dissection during stent placement CHEMODNRVTJ [facility] INNERVATED FACIAL NRV ESTEFANI CYSTO.PANENDO 11/24/2021 Dr. Dye CYSTO.PANENDO 05/31/2022 CYSTO.PANENDO N/A 06/04/2023 CYSTOSCOPY 03/29/2017 Dr. Fady Dye - [facility] LEFT HEART CATH,PERCUTANEOUS 05/11/2003 Cardiac cath, L heart LEFT HEART CATH,PERCUTANEOUS 12/08/2009 Cardiac cath, L heart LEFT HEART CATH,PERCUTANEOUS 03/15/2011 Cardiac cath, L heart with Stent placement OHS OFF PUMP PAST SURGICAL HISTORY OF Lumbar spine surgery. PAST SURGICAL HISTORY OF 05/29/2017 cervical spine surgery with fusion ROTATOR CUFF REPAIR Left 2016 TRURL ELECTROSURG RESCJ PROSTATE BLEED COMPLETE URODYNAMICS 03/29/2017 Procedure done by Nava Back LPN, [facility] Social History Tobacco Use Smoking status: Former Current packs/day: 0.00 Average packs/day: 1.3 packs/day for 10.0 years (12.5 ttl pk-yrs) Types: Cigarettes Start date: 11/14/1987 Quit date: 11/13/1997 Years since quittin.0 Smokeless tobacco: Never Vaping Use Vaping status: Never Used Substance Use Topics Alcohol use: Yes Comment: 2 cans of beer per year. Drug use: No Comment: denies tx for drug/alcohol abuse in the past. Current Outpatient Medications Medication Sig Dispense Refill trospium (SANCTURA) 20 mg tablet Take 1 tablet by mouth two times a day. 30 tablet 4 plecanatide (TRULANCE) 3 mg tablet Take 1 tablet by mouth once daily. nitroglycerin sublingual (NITROQUICK) 0.4 mg SL tablet as directed Sublingual Amoxicillin 500 mg tablet TAKE 4 TABLETS BY MOUTH 1 (ONE) HOUR BEFORE procedure then TAKE 2 TABLETS BY MOUTH 6 (SIX) hours after procedure 6 tablet 3 acetaminophen (TYLENOL) 500 mg tablet Take 2 tablets by mouth every 6 hours as needed for pain. aspirin, enteric coated (ASPIRIN, ENTERIC COATED) 81 mg EC tablet Take 1 tablet by mouth twice daily. 84 tablet 0 metoprolol tartrate, short acting, (LOPRESSOR) 50 mg tablet Take 1 tablet by mouth twice daily. COMPOUNDED PRESCRIPTION 16 fr catheters 30 Device 11 lisinopril (ZESTRIL, PRINIVIL) 20 mg tablet Take 20 mg by mouth once daily. 3 ascorbic acid, vitamin C, (VITAMIN C) 500 mg tablet Take 1 tablet by mouth once daily. MAGNESIUM HYDROXIDE (MILK OF MAGNESIA ORAL) Take 1 Bottle by mouth as needed. isosorbide mononitrate ER (IMDUR) 60 mg 24 hr tablet Take 60 mg by mouth once daily. cholecalciferol (VITAMIN D3) 1,000 unit tab tablet Take 1,000 Units by mouth once daily. Multivitamin capsule Take 1 capsule by mouth once daily. rosuvastatin (CRESTOR) 40 mg tablet Take 40 mg by mouth once daily. No current facility-administered medications for this visit. ROS: Constitutional: negative Gastrointestinal: negative PHYSICAL EXAM: BP 130/72 Pulse 63 GENERAL: Wnl nutrition, no deformities, healthy appearing DATA/OR LABS TO BE REVIEWED: (Simple=1 data point; Complex= 2 or more) PSA (ng/mL) Date Value 03/09/2020 0.31 Creatinin (more content not included)... Normal [facility] UA DIP, URINE (POC)on 2023 BILIRUBIN UA (POCT) Negative Negative [facility] CLARITY UA (POCT) Clear [facility] COLOR UA (POCT) Yellow [facility] GLUCOSE UA (POCT) Negative Negative mg/dL [facility] Hemoglobin Ql (U) Trace-intact Abnormal Negative [facility] Interpretation and review of laboratory results Abnormal [facility] KETONE UA (POCT) Negative Negative mg/dL [facility] LEUKOCYTES UA (POCT) Moderate Abnormal Negative [facility] NITRITE UA (POCT) Positive Abnormal Negative [facility] PH UA (POCT) 6.0 4.5 - 8.0 [facility] Protein Ql (U) Trace Abnormal Negative mg/dL [facility] SPECIFIC GRAVITY UA (POCT) 1.025 1.005 - 1.030 [facility] UROBILINOGEN UA (POCT) 0.2 Normal E.U./dL [facility] Location:[facility], [address] [place], [place], [address] [place] [address] POINT OF CARE [facility] Keanu 11-13-2023 [facility] Telephone (UROLMN) FAHAD SOTELO ([id number]) 1950 M Date Time Provider Department 11/13/23 LOUIE SALOMON During your visit today, we recorded the following information about you: Luzma Scott 11/13/2023 9:31 AM Signed Pt states that he has had difficulty urinating the past couple days. He say he has to hold his breath and push out the urine. Also states he is having difficulty with cathing as well. Daija Lares PA-C 11/13/2023 10:49 AM Signed Fahad Sotelo [id number] Returned call to patient. Got up 7 times last night. Doesn't feel like he is emptying his bladder. Did cath himself so he could sleep. Got quite a bit out when he cathed. Even had some trouble getting catheter in. Feels like he has trouble getting past meatus and then it goes easily. Stream is weak. Wondering if he has scar tissue is built up in there. Denies any bleeding on regular basis. Does occasionally see a whisp of blood in the bowl. Doesn't understand why his bladder doesn't empty on his own. States he cannot cath every time he goes to the bathroom (because he doesn't want to cath that much). Goes about every 2 hours to void. Does cath 3-4 times per day. Feels like he does empty with cathing. Offered lidocaine jelly Rx but patient happy with lubricant he has at home. Explained he can cath more often if he is having discomfort from inability to void and we can always change catheter Rx to reflect this if needed. He expressed understanding and appreciation for call. Daija Lares PA-C 11/13/2023 10:48 AM Allergies As of Date: 11/13/2023 Noted Allergy Reaction BEE POLLEN 01/30/2014 7 - Swelling BEE STING 01/02/2019 7 - Swelling HAY FEVER (SEASONAL ALLERGIES) 04/12/2021 14 - Other: See Comments Comments: Sneezing. OXYBUTYNIN 06/20/2013 14 - Other: See Comments Comments: Other Reaction(s): Constipation VENOM-HONEY BEE 12/30/2018 14 - Other: See Comments 7 - Swelling Comments: Other Reaction(s): Unknown TROSPIUM 03/31/2014 14 - Other: See Comments Comments: Other Reaction(s): Xerostomia Date Reviewed: 08/31/2023 Reviewed by: Martha Kelly, LEATHA - Fully Assessed Reason for Visit: Patient Update [1234] Prescriptions as of 11/13/2023 - trospium (SANCTURA) 20 mg tablet Take 1 tablet by mouth two times a day. - plecanatide (TRULANCE) 3 mg tablet Take 1 tablet by mouth once daily. - nitroglycerin sublingual (NITROQUICK) 0.4 mg SL tablet as directed Sublingual - Amoxicillin 500 mg tablet TAKE 4 TABLETS BY MOUTH 1 (ONE) HOUR BEFORE procedure then TAKE 2 TABLETS BY MOUTH 6 (SIX) hours after procedure - acetaminophen (TYLENOL) 500 mg tablet Take 2 tablets by mouth every 6 hours as needed for pain. - aspirin, enteric coated (ASPIRIN, ENTERIC COATED) 81 mg EC tablet Take 1 tablet by mouth twice daily. - metoprolol tartrate, short acting, (LOPRESSOR) 50 mg tablet Take 1 tablet by mouth twice daily. - COMPOUNDED PRESCRIPTION 16 fr catheters - lisinopril (ZESTRIL, PRINIVIL) 20 mg tablet Take 20 mg by mouth once daily. - ascorbic acid, vitamin C, (VITAMIN C) 500 mg tablet Take 1 tablet by mouth once daily. - MAGNESIUM HYDROXIDE (MILK OF MAGNESIA ORAL) Take 1 Bottle by mouth as needed. - isosorbide mononitrate ER (IMDUR) 60 mg 24 hr tablet Take 60 mg by mouth once daily. - cholecalciferol (VITAMIN D3) 1,000 unit tab tablet Take 1,000 Units by mouth once daily. - Multivitamin capsule Take 1 capsule by mouth once daily. - rosuvastatin (CRESTOR) 40 mg tablet Take 40 mg by mouth once daily. Problem List As Of Date 11/13/2023 Noted Resolved Shoulder weakness [R29.898] 03/12/2017 Brachial plexopathy [G54.0] 03/12/2017 Cervical spinal stenosis [M48.02] 03/12/2017 Cervical spondylosis with myelopathy [M47.12] 05/04/2017 Preop testing [Z01.818] 05/04/2017 CAD (coronary artery disease) [I25.10] 02/13/2004 Essential hypertension [I10] Mixed hyperlipidemia [E78.2] Cervical stenosis of spine [M48.02] 05/29/2017 Urge incontinence [N39.41] 06/20/2017 Obesity, Class I, BMI 30-34.9 [E66.811] 10/28/2018 Osteoarthritis of right knee [M17.11] 10/30/2018 Chronic knee pain after total replacement of ri*11/14/2019 History of lumbar fusion [Z98.1] 06/17/2020 Primary osteoarthritis of right hip [M16.11] 06/17/2020 Loose right total knee arthroplasty (HCC) [T84.*06/17/2020 Pre-op evaluation [Z01.818] 04/12/2021 Rotator cuff tear arthropathy of right shoulder*04/12/2021 Encounter Status:Closed by DAIJA LARES on 11/13/23 [facility] 09-11-2023 [facility] Telephone (UROMARLYN) FAHAD SOTELO ([id number]) 1950 M Date Time Provider Department 09/11/23 LOUIE SALOMON During your visit today, we recorded the following information about you: Louie Salomon MD 09/11/2023 11:49 AM Signed Called to follow up on voiding/cathing data He is still needing to go very frequently Cath volumes range from 4-9 oz Void volumes 1-4 ounces Still feels like he has to pee at the time but can't go After he caths will feel he has to go 30-60 min later Drinking 1-2 bottles of water a day Things were better prior to botox Doesn't feel like he has a uti now Trial trospium He will let me know if this helps Allergies As of Date: 09/11/2023 Noted Allergy Reaction BEE POLLEN 01/30/2014 7 - Swelling BEE STING 01/02/2019 7 - Swelling HAY FEVER (SEASONAL ALLERGIES) 04/12/2021 14 - Other: See Comments Comments: Sneezing. OXYBUTYNIN 06/20/2013 14 - Other: See Comments Comments: Other Reaction(s): Constipation VENOM-HONEY BEE 12/30/2018 14 - Other: See Comments 7 - Swelling Comments: Other Reaction(s): Unknown TROSPIUM 03/31/2014 14 - Other: See Comments Comments: Other Reaction(s): Xerostomia Date Reviewed: 08/31/2023 Reviewed by: Martha Kelly RN - Fully Assessed Order(s):trospium (SANCTURA) 20 mg tabletTake 1 tablet by mouth two times a day.Disp: 30 tabletRfl: 4 Prescriptions as of 09/11/2023 - trospium (SANCTURA) 20 mg tablet Take 1 tablet by mouth two times a day. - plecanatide (TRULANCE) 3 mg tablet Take 1 tablet by mouth once daily. - nitroglycerin sublingual (NITROQUICK) 0.4 mg SL tablet as directed Sublingual - Amoxicillin 500 mg tablet TAKE 4 TABLETS BY MOUTH 1 (ONE) HOUR BEFORE procedure then TAKE 2 TABLETS BY MOUTH 6 (SIX) hours after procedure - acetaminophen (TYLENOL) 500 mg tablet Take 2 tablets by mouth every 6 hours as needed for pain. - aspirin, enteric coated (ASPIRIN, ENTERIC COATED) 81 mg EC tablet Take 1 tablet by mouth twice daily. - metoprolol tartrate, short acting, (LOPRESSOR) 50 mg tablet Take 1 tablet by mouth twice daily. - COMPOUNDED PRESCRIPTION 16 fr catheters - lisinopril (ZESTRIL, PRINIVIL) 20 mg tablet Take 20 mg by mouth once daily. - ascorbic acid, vitamin C, (VITAMIN C) 500 mg tablet Take 1 tablet by mouth once daily. - MAGNESIUM HYDROXIDE (MILK OF MAGNESIA ORAL) Take 1 Bottle by mouth as needed. - isosorbide mononitrate ER (IMDUR) 60 mg 24 hr tablet Take 60 mg by mouth once daily. - cholecalciferol (VITAMIN D3) 1,000 unit tab tablet Take 1,000 Units by mouth once daily. - Multivitamin capsule Take 1 capsule by mouth once daily. - rosuvastatin (CRESTOR) 40 mg tablet Take 40 mg by mouth once daily. Problem List As Of Date 09/11/2023 Noted Resolved Shoulder weakness [R29.898] 03/12/2017 Brachial plexopathy [G54.0] 03/12/2017 Cervical spinal stenosis [M48.02] 03/12/2017 Cervical spondylosis with myelopathy [M47.12] 05/04/2017 Preop testing [Z01.818] 05/04/2017 CAD (coronary artery disease) [I25.10] 02/13/2004 Essential hypertension [I10] Mixed hyperlipidemia [E78.2] Cervical stenosis of spine [M48.02] 05/29/2017 Urge incontinence [N39.41] 06/20/2017 Obesity, Class I, BMI 30-34.9 [E66.9] 10/28/2018 Osteoarthritis of right knee [M17.11] 10/30/2018 Chronic knee pain after total replacement of ri*11/14/2019 History of lumbar fusion [Z98.1] 06/17/2020 Primary osteoarthritis of right hip [M16.11] 06/17/2020 Loose right total knee arthroplasty (HCC) [T84.*06/17/2020 Pre-op evaluation [Z01.818] 04/12/2021 Rotator cuff tear arthropathy of right shoulder*04/12/2021 Prescriptions ordered this encounter Disp Refills Start End TROSPIUM 20 MG TABLET 30 t* 4 09/11/2023 Route: ORAL Sig: Take 1 tablet by mouth two times a day. Encounter Status:Closed by LOUIE SALOMON on 09/11/23 [facility] 08-31-2023 CNNURSE Nurse Visit (UROSMN) FAHAD SOTELO ([id number]) 1950 M Date Time Provider Department 08/31/23 11:00 AM FLUROURODYNAMICS UROSMN During your visit today, we recorded the following information about you: Martha Kelly RN 08/31/2023 11:21 AM Signed [facility] URODYNAMICS LAB URODYNAMIC PROCEDURE NOTE ID Verified by: Martha Kelly RN with name and birthdate. Procedure instructions reviewed with patient prior to procedure: No Currently experiencing pain: No 0 on a scale of 0 to 10 on a scale of 0-10. Does the patient have any concerns about safety in the home/falls?: Not at risk for falls Has the patient had 2 falls in the last year or 1 fall with injury or currently using assistive device (walker, cane, wheelchair, crutches): No What interventions were put in place to prevent falls during this visit: Increased observations by caregivers Has patient had any history of Mitral Valve prolapse: No MEDS:NONE Has patient had any history of prosthetics: Yes MEDS: NONE Latex allergy: No Iodine allergy: No B/O UA: YES Negative for leukocytes and negative for nitrates. UROFLOWMETRY- unable to void for pre-test uroflow. Patient ISC 4 x dialy at home CYSTOMETROGRAM Subtracted:Yes Video: No EMG: Yes First Sensation: 157 ml Strong desire: 241 ml Max. capacity: 270 ml Maximum filling detrusor pressure 1 cm of water Detrusor overactivity associated with urge: Yes Detrusor overactivity associated with leakage: No Was patient assessed for VLPP / UPP No Leaks urine with valsalva /coughs: No Lowest Leak point pressure: n/a cm of water at n/a ml PRESSURE-FLOW VOIDING STUDY Did patient void with catheters in place No Straight cath for 300 ml Max Voiding Detrusor Pressure n/acm H2O P det Q max (Max Flow): n/a cm H2O Maximum Flow Rate: n/a ml/sec Average Flow Rate: n/a ml/sec Comments: unable to void for pre-test uroflow. Patient ISC 4 x daily at home. Patient filled to capacity for testing. Permission to void with strong desire. Straining noted with attempt to void and patient stated that he usually holds his breath to void at home. Advised patient not to hold breath during testing or at home. Unable to provide voluntary void. Straight cath for 300ml. Patient left an output diary for Dr. Salomon. Will forward to STUDY DETAILS: Was a uroflow done at some point during the study: No Was a cystometrogram performed: Yes Was a UPP/VLPP done: No Was an EMG done: Yes Was an intraabdominal pressure recorded with urethral catheter in: No Where were pressure catheters placed: Bladder and Rectum Was contrast instilled for radiologic evaluation: No Please use Urodynamic Graph. Pt given verbal home going instructions. Pt states an understanding of instructions given. LEATHA Buckner Molly, MD 08/31/2023 3:19 PM Signed UDS interpretation 300mls capacity Lots of pabd activity Strong desire at 270, No obvious DO or rise in pdet with permission to void Normal compliance Cathed for 300 Referring Provider: LOUIE SALOMON [[id number]] Allergies As of Date: 08/31/2023 Noted Allergy Reaction BEE POLLEN 01/30/2014 7 - Swelling BEE STING 01/02/2019 7 - Swelling HAY FEVER (SEASONAL ALLERGIES) 04/12/2021 14 - Other: See Comments Comments: Sneezing. OXYBUTYNIN 06/20/2013 14 - Other: See Comments Comments: Other Reaction(s): Constipation VENOM-HONEY BEE 12/30/2018 14 - Other: See Comments 7 - Swelling Comments: Other Reaction(s): Unknown TROSPIUM 03/31/2014 14 - Other: See Comments Comments: Other Reaction(s): Xerostomia Date Reviewed: 08/31/2023 Reviewed by: Martha Kelly RN - Fully Assessed Reason for Visit: Follow Up [171] Primary Visit Diagnosis:Urinary retention [R33.9] Prescriptions as of 08/31/2023 - plecanatide (TRULANCE) 3 mg tablet Take 1 tablet by mouth once daily. - nitroglycerin sublingual (NITROQUICK) 0.4 mg SL tablet as directed Sublingual - Amoxicillin 500 mg tablet TAKE 4 TABLETS BY MOUTH 1 (ONE) HOUR BEFORE procedure then TAKE 2 TABLETS BY MOUTH 6 (SIX) hours after procedure - acetaminophen (TYLENOL) 500 mg tablet Take 2 tablets by mouth every 6 hours as needed for pain. - aspirin, enteric coated (ASPIRIN, ENTERIC COATED) 81 mg EC tablet Take 1 tablet by mouth twice daily. - metoprolol tartrate, short acting, (LOPRESSOR) 50 mg tablet Take 1 tablet by mouth twice daily. - COMPOUNDED PRESCRIPTION 16 fr catheters - lisinopril (ZESTRIL, PRINIVIL) 20 mg tablet Take 20 mg by mouth once daily. - ascorbic acid, vitamin C, (VITAMIN C) 500 mg tablet Take 1 tablet by mouth once daily. - MAGNESIUM HYDROXIDE (MILK OF MAGNESIA ORAL) Take 1 Bottle by mouth as needed. - isosorbide mononitrate ER (IMDUR) 60 mg 24 hr tablet Take 60 mg by mouth once daily. - cholecalciferol (VITAMIN D3) 1,000 unit tab tablet Take 1,000 U (more content not included)... Normal [facility] 08[facility]31[facility]20[facility] (UR[facility]MN[facility] FAHAD SOTELO ([id number]) 1950 M Date Time Provider Department 08/31/23 LOUIE SALOMON [place] During your visit today, we recorded the following information about you: Louie Salomon MD 08/31/2023 4:37 PM Signed Called to follow up on UDS Cathing 4-5 times a day Voiding in between Voiding diary from 08/08 to 08/13 with 11-15 voids (caths + volutional) a day This was when he had a UTI and was only a week after botox UDS looks a lot better than this situation He still feels he is voiding frequently Needs to hold his breath to pee on his own No issue cathing He will do another voiding diary for me in a week Will call with how he is feeling Allergies As of Date: 08/31/2023 Noted Allergy Reaction BEE POLLEN 01/30/2014 7 - Swelling BEE STING 01/02/2019 7 - Swelling HAY FEVER (SEASONAL ALLERGIES) 04/12/2021 14 - Other: See Comments Comments: Sneezing. OXYBUTYNIN 06/20/2013 14 - Other: See Comments Comments: Other Reaction(s): Constipation VENOM-HONEY BEE 12/30/2018 14 - Other: See Comments 7 - Swelling Comments: Other Reaction(s): Unknown TROSPIUM 03/31/2014 14 - Other: See Comments Comments: Other Reaction(s): Xerostomia Date Reviewed: 08/31/2023 Reviewed by: Martha Kelly RN - Fully Assessed Prescriptions as of 08/31/2023 - plecanatide (TRULANCE) 3 mg tablet Take 1 tablet by mouth once daily. - nitroglycerin sublingual (NITROQUICK) 0.4 mg SL tablet as directed Sublingual - Amoxicillin 500 mg tablet TAKE 4 TABLETS BY MOUTH 1 (ONE) HOUR BEFORE procedure then TAKE 2 TABLETS BY MOUTH 6 (SIX) hours after procedure - acetaminophen (TYLENOL) 500 mg tablet Take 2 tablets by mouth every 6 hours as needed for pain. - aspirin, enteric coated (ASPIRIN, ENTERIC COATED) 81 mg EC tablet Take 1 tablet by mouth twice daily. - metoprolol tartrate, short acting, (LOPRESSOR) 50 mg tablet Take 1 tablet by mouth twice daily. - COMPOUNDED PRESCRIPTION 16 fr catheters - lisinopril (ZESTRIL, PRINIVIL) 20 mg tablet Take 20 mg by mouth once daily. - ascorbic acid, vitamin C, (VITAMIN C) 500 mg tablet Take 1 tablet by mouth once daily. - MAGNESIUM HYDROXIDE (MILK OF MAGNESIA ORAL) Take 1 Bottle by mouth as needed. - isosorbide mononitrate ER (IMDUR) 60 mg 24 hr tablet Take 60 mg by mouth once daily. - cholecalciferol (VITAMIN D3) 1,000 unit tab tablet Take 1,000 Units by mouth once daily. - Multivitamin capsule Take 1 capsule by mouth once daily. - rosuvastatin (CRESTOR) 40 mg tablet Take 40 mg by mouth once daily. Problem List As Of Date 08/31/2023 Noted Resolved Shoulder weakness [R29.898] 03/12/2017 Brachial plexopathy [G54.0] 03/12/2017 Cervical spinal stenosis [M48.02] 03/12/2017 Cervical spondylosis with myelopathy [M47.12] 05/04/2017 Preop testing [Z01.818] 05/04/2017 CAD (coronary artery disease) [I25.10] 02/13/2004 Essential hypertension [I10] Mixed hyperlipidemia [E78.2] Cervical stenosis of spine [M48.02] 05/29/2017 Urge incontinence [N39.41] 06/20/2017 Obesity, Class I, BMI 30-34.9 [E66.9] 10/28/2018 Osteoarthritis of right knee [M17.11] 10/30/2018 Chronic knee pain after total replacement of ri*11/14/2019 History of lumbar fusion [Z98.1] 06/17/2020 Primary osteoarthritis of right hip [M16.11] 06/17/2020 Loose right total knee arthroplasty (HCC) [T84.*06/17/2020 Pre-op evaluation [Z01.818] 04/12/2021 Rotator cuff tear arthropathy of right shoulder*04/12/2021 Encounter Status:Closed by LOUIE SALOMON on 08/31/23 Normal [facility] Bacteria Ur Culton 4 Bacteria identified Cx Nom (U) ORGANISM ID: 1 >=100,000 CFU/ml Escherichia coli ORGANISM ID: 2 <10,000 CFU/ml Klebsiella oxytoca ORGANISM ID: 1 (ESCHERICHIA COLI) -- ANTIBIOTIC INTERPRETATION RL STATUS REFERENCE RANGE -- Ampicillin S 8 F Susceptible <=8 , Intermediate >8 , Resistant >16 Cefazolin S <=4 F Susceptible 0-16 , Intermediate <0 or >16 , Resistant >16 For uncomplicated urinary tract infections, cefazolin results can be used to predict susceptibility or resistance to cephalexin. Ceftriaxone S <=1 F Susceptible <=1 , Intermediate >1 , Resistant >=4 Cefepime S <=1 F Susceptible <=2 , Susceptible-Dose Dependent >2 , Resistant >=16 Ertapenem S <=0.5 F Susceptible <=0.5 , Intermediate >.5 , Resistant >1 Meropenem S <=0.25 F Susceptible <=1 , Intermediate >1 , Resistant >2 Ampicillin/Sulbact S 4 F Susceptible <=8 , Intermediate >8 , Resistant >16 Piperacillin/Tazobac S <=4 F Susceptible <16 , Susceptible-Dose Dependent >=16 , Resistant >=32 Gentamicin S <=1 F Susceptible <=2 , Intermediate >2 , Resistant >=8 Tobramycin S <=1 F Susceptible <4 , Intermediate >=4 , Resistant >=8 Trimeth sulfameth S <=20 F Susceptible <=40 , Resistant >40 Ciprofloxacin S <=0.25 F Susceptible <0.5 , Intermediate >=.5 , Resistant >=1 Nitrofurantoin S <=16 F Susceptible <=32 , Intermediate >32 , Resistant >64 ORGANISM ID: 2 (KLEBSIELLA OXYTOCA) -- ANTIBIOTIC INTERPRETATION RL STATUS REFERENCE RANGE -- Ampicillin R >=32 F Susceptible <=8 , Intermediate >8 , Resistant >16 Cefazolin S 8 F Susceptible 0-16 , Intermediate <0 or >16 , Resistant >16 For uncomplicated urinary tract infections, cefazolin results can be used to predict susceptibility or resistance to cephalexin. Ceftriaxone S <=1 F Susceptible <=1 , Intermediate >1 , Resistant >=4 Cefepime S <=1 F Susceptible <=2 , Susceptible-Dose Dependent >2 , Resistant >=16 Ertapenem S <=0.5 F Susceptible <=0.5 , Intermediate >.5 , Resistant >1 Meropenem S <=0.25 F Susceptible <=1 , Intermediate >1 , Resistant >2 Ampicillin/Sulbact S 8 F Susceptible <=8 , Intermediate >8 , Resistant >16 Piperacillin/Tazobac S <=4 F Susceptible <16 , Susceptible-Dose Dependent >=16 , Resistant >=32 Gentamicin S <=1 F Susceptible <=2 , Intermediate >2 , Resistant >=8 Tobramycin S <=1 F Susceptible <4 , Intermediate >=4 , Resistant >=8 Trimeth sulfameth S <=20 F Susceptible <=40 , Resistant >40 Ciprofloxacin S <=0.25 F Susceptible <0.5 , Intermediate >=.5 , Resistant >=1 Nitrofurantoin S <=16 F Susceptible <=32 , Intermediate >32 , Resistant >64 Abnormal [facility] Comment on above: Performed By: #### 6 30-4 #### [facility] CLIA [id number] [address] [place] [address] [place] CNPFelisha 08-15-2023 [facility] Telephone (MARILY) FAHAD SOTELO ([id number]) 1950 M Date Time Provider Department 08/15/23 DAIJA LARES During your visit today, we recorded the following information about you: Daija Lares PA-C 08/15/2023 11:48 AM Signed Fahad Sotelo [id number] Returned call to patient. Complaining of urinary frequency and urgency. Last night voiding or needing to self cath every 90 minutes or so. Small volumes. Keeping close record of urination. Bowel function is at baseline. On home bowel regimen. Discussed that we should r/o UTI since he was recently instrumented. He is unsure how close a [facility] lab is from him. Possibly closest to [place]. He will go there to drop off a sample. Daija Lares PA-C 08/15/2023 11:45 AM Allergies As of Date: 08/15/2023 Noted Allergy Reaction BEE POLLEN 01/30/2014 7 - Swelling BEE STING 01/02/2019 7 - Swelling HAY FEVER (SEASONAL ALLERGIES) 04/12/2021 14 - Other: See Comments Comments: Sneezing. OXYBUTYNIN 06/20/2013 14 - Other: See Comments Comments: Other Reaction(s): Constipation VENOM-HONEY BEE 12/30/2018 14 - Other: See Comments 7 - Swelling Comments: Other Reaction(s): Unknown TROSPIUM 03/31/2014 14 - Other: See Comments Comments: Other Reaction(s): Xerostomia Date Reviewed: 08/02/2023 Reviewed by: Elizabeth Velasco RN - Fully Assessed Reason for Visit: Returning Patient's Call [408] Prescriptions as of 08/15/2023 - plecanatide (TRULANCE) 3 mg tablet Take 1 tablet by mouth once daily. - nitroglycerin sublingual (NITROQUICK) 0.4 mg SL tablet as directed Sublingual - Amoxicillin 500 mg tablet TAKE 4 TABLETS BY MOUTH 1 (ONE) HOUR BEFORE procedure then TAKE 2 TABLETS BY MOUTH 6 (SIX) hours after procedure - acetaminophen (TYLENOL) 500 mg tablet Take 2 tablets by mouth every 6 hours as needed for pain. - aspirin, enteric coated (ASPIRIN, ENTERIC COATED) 81 mg EC tablet Take 1 tablet by mouth twice daily. - metoprolol tartrate, short acting, (LOPRESSOR) 50 mg tablet Take 1 tablet by mouth twice daily. - COMPOUNDED PRESCRIPTION 16 fr catheters - lisinopril (ZESTRIL, PRINIVIL) 20 mg tablet Take 20 mg by mouth once daily. - ascorbic acid, vitamin C, (VITAMIN C) 500 mg tablet Take 1 tablet by mouth once daily. - MAGNESIUM HYDROXIDE (MILK OF MAGNESIA ORAL) Take 1 Bottle by mouth as needed. - isosorbide mononitrate ER (IMDUR) 60 mg 24 hr tablet Take 60 mg by mouth once daily. - cholecalciferol (VITAMIN D3) 1,000 unit tab tablet Take 1,000 Units by mouth once daily. - Multivitamin capsule Take 1 capsule by mouth once daily. - rosuvastatin (CRESTOR) 40 mg tablet Take 40 mg by mouth once daily. Problem List As Of Date 08/15/2023 Noted Resolved Shoulder weakness [R29.898] 03/12/2017 Brachial plexopathy [G54.0] 03/12/2017 Cervical spinal stenosis [M48.02] 03/12/2017 Cervical spondylosis with myelopathy [M47.12] 05/04/2017 Preop testing [Z01.818] 05/04/2017 CAD (coronary artery disease) [I25.10] 02/13/2004 Essential hypertension [I10] Mixed hyperlipidemia [E78.2] Cervical stenosis of spine [M48.02] 05/29/2017 Urge incontinence [N39.41] 06/20/2017 Obesity, Class I, BMI 30-34.9 [E66.9] 10/28/2018 Osteoarthritis of right knee [M17.11] 10/30/2018 Chronic knee pain after total replacement of ri*11/14/2019 History of lumbar fusion [Z98.1] 06/17/2020 Primary osteoarthritis of right hip [M16.11] 06/17/2020 Loose right total knee arthroplasty (HCC) [T84.*06/17/2020 Pre-op evaluation [Z01.818] 04/12/2021 Rotator cuff tear arthropathy of right shoulder*04/12/2021 Encounter Status:Closed by DAIJA LARES on 08/15/23 Normal [facility] Urinalysis complete panel (U )on 08-15-2023 BACTERIA UL >9821 High Negative [facility] Comment on above: Order Comment: Speci men Type: URINE SPECIMENOrdering Facility: [facility] Address: [address] [place] [address] Performed By: #### 6 30-4 #### [facility] CLIA [id number] [address] [place] [address] [place] [address] [place] Bilirubin Ql (U) Negative Normal Negative [facility] Comment on above: Order Comment: Speci men Type: URINE SPECIMENOrdering Facility: [facility] Address: [address] [place] [address] Performed By: #### 6 30-4 #### [facility] CLIA [id number] [address] [place] [address] [place] Clarity (Unsp spec) Cloudy Abnormal Clear [facility] Comment on above: Order Comment: Speci men Type: URINE SPECIMENOrdering Facility: [facility] Address: [address] [place] [address] Performed By: #### 6 30-4 #### [facility] CLIA [id number] [address] [place] [address] [place] Color (U) Yellow Normal Yellow [facility] Comment on above: Order Comment: Speci men Type: URINE SPECIMENOrdering Facility: [facility] Address: [address] [place] [address] Performed By: #### 6 30-4 #### [facility] CLIA [id number] [address] [place] [address] [place] Epithelial cells LM.HPF (Urine sed) [#/Area] None Seen Normal [facility] Comment on above: Order Comment: Speci men Type: URINE SPECIMENOrdering Facility: [facility] Address: [address] [place] [address] Performed By: #### 6 30-4 #### [facility] CLIA [id number] [address] [place] [address] [place] Glucose Test strip (U) [Mass/Vol] Negative Normal Negative [facility] Comment on above: Order Comment: Speci men Type: URINE SPECIMENOrdering Facility: [facility] Address: [address] [place] [address] Performed By: #### 6 30-4 #### [facility] CLIA [id number] [address] [place] [address] [place] Hemoglobin Ql (U) Trace Abnormal Negative [facility] Comment on above: Order Comment: Speci men Type: URINE SPECIMENOrdering Facility: [facility] Address: [address] [place] [address] Performed By: #### 6 30-4 #### [facility] CLIA [id number] [address] [place] [address] [place] Hyaline casts (Urine sed) [#/Area] 1-3 /LPF Abnormal 0 /LPF [facility] Comment on above: Order Comment: Speci men Type: URINE SPECIMENOrdering Facility: [facility] Address: [address] [place] [address] Performed By: #### 6 30-4 #### [facility] CLIA [id number] [address] [place] [address] [place] Ketones Ql (U) Negative Normal Negative [facility] Comment on above: Order Comment: Speci men Type: URINE SPECIMENOrdering Facility: [facility] Address: [address] [place] [address] Performed By: #### 6 30-4 #### [facility] CLIA [id number] [address] [place] [address] [place] Leukocyte esterase Test strip Ql (U) 3+ Abnormal Negative [facility] Comment on above: Order Comment: Speci men Type: URINE SPECIMENOrdering Facility: [facility] Address: [address] [place] [address] Performed By: #### 6 30-4 #### [facility] CLIA [id number] [address] [place] [address] [place] Nitrite Ql (U) Positive Abnormal Negative [facility] Comment on above: Order Comment: Speci men Type: URINE SPECIMENOrdering Facility: [facility] Address: [address] [place] [address] Performed By: #### 6 30-4 #### [facility] CLIA [id number] [address] [place] [address] [place] pH (U) 6.5 [pH] Normal <8.5 [facility] Comment on above: Order Comment: Speci men Type: URINE SPECIMENOrdering Facility: [facility] Address: [address] [place] [address] Performed By: #### 6 30-4 #### [facility] CLIA [id number] [address] [place] [address] [place] Protein (U) [Mass/Vol] Trace Abnormal Negative [facility] Comment on above: Order Comment: Speci men Type: URINE SPECIMENOrdering Facility: [facility] Address: [address] [place] [address] Performed By: #### 6 30-4 #### [facility] CLIA [id number] [address] [place] [address] [place] RBC LM.HPF (Urine sed) [#/Area] 0-2 /HPF Normal 0-2 /HPF [facility] Comment on above: Order Comment: Speci men Type: URINE SPECIMENOrdering Facility: [facility] Address: [address] [place] [address] Performed By: #### 6 30-4 #### [facility] CLIA [id number] [address] [place] [address] [place] Specific gravity (U) [Rel density] 1.016 Normal 1.005-1.030 [facility] Comment on above: Order Comment: Speci men Type: URINE SPECIMENOrdering Facility: [facility] Address: [address] [place] [address] Performed By: #### 6 30-4 #### [facility] CLIA [id number] [address] [place] [address] [place] Urobilinogen Ql (U) 0.2 EU/dL Normal 0.2-1.0 EU/dL [facility] Comment on above: Order Comment: Speci men Type: URINE SPECIMENOrdering Facility: [facility] Address: [address] [place] [address] Performed By: #### 6 30-4 #### [facility] CLIA [id number] [address] [place] [address] [place] WBC LM.HPF (Urine sed) [#/Area] /[HPF] Abnormal 0-5 /HPF [facility] Comment on above: Order Comment: Speci men Type: URINE SPECIMENOrdering Facility: [facility] Address: [address] [place] [address] Performed By: #### 6 30-4 #### [facility] CLIA [id number] [address] [place] [address] [place] [facility] 08-09-2023 [facility] Telephone (UROLMN) FAHAD SOTELO ([id number]) 1950 M Date Time Provider Department 08/09/23 FIFI GREGORY URORASHID During your visit today, we recorded the following information about you: Fifi Gregory APRN.SHOE REPAIRER APPRENTICE 08/09/2023 2:06 PM Signed ----- Message from Maite Glass MA sent at 08/09/2023 8:45 AM EDT ----- Patient feels like he has to urinate all the time when he does go he has to hold his breath When he self caths a lot of urine comes out He is asking for a call Thanks Fifi Clay APRN.SHOE REPAIRER APPRENTICE 08/09/2023 2:18 PM Signed Fahad Sotelo had dilation on 08/02/2023 with plan to remove Duncan after 2-5 days and then resume ISC QID. Scheduled for UDS on 08/31/2023. Bladder is reportedly poorly compliant with small capacity. Called Fahad Sotelo. He reports that he removed Duncan on 08/04/2023. Yesterday, he started having hesitancy and getting larger volumes when he caths. [place] urge to cath 6-7 times yesterday. He did not measure cathed or voided volumes. He denies pain with voiding or cathing and difficulty passing catheters. He also had difficulty passing stool yesterday. Today, he has had a normal BM and feels like urinary symptoms are also somewhat improved. Reassured Fahad A Ashleigh that it is not unusual to have increased difficulty mounting bladder contraction for several days after anesthesia and when constipated. Encouraged him to focus on getting bowels on track. Encouraged him to measure voided and cathed volumes for the next 2-3 days. Encouraged him to call again on 08/13/2023 if he does not feel like symptoms are improving. Fifi Gregory APRN.SHOE REPAIRER APPRENTICE Allergies As of Date: 08/09/2023 Noted Allergy Reaction BEE POLLEN 01/30/2014 7 - Swelling BEE STING 01/02/2019 7 - Swelling HAY FEVER (SEASONAL ALLERGIES) 04/12/2021 14 - Other: See Comments Comments: Sneezing. OXYBUTYNIN 06/20/2013 14 - Other: See Comments Comments: Other Reaction(s): Constipation VENOM-HONEY BEE 12/30/2018 14 - Other: See Comments 7 - Swelling Comments: Other Reaction(s): Unknown TROSPIUM 03/31/2014 14 - Other: See Comments Comments: Other Reaction(s): Xerostomia Date Reviewed: 08/02/2023 Reviewed by: Elizabeth Velasco, LEATHA - Fully Assessed Prescriptions as of 08/09/2023 - plecanatide (TRULANCE) 3 mg tablet Take 1 tablet by mouth once daily. - nitroglycerin sublingual (NITROQUICK) 0.4 mg SL tablet as directed Sublingual - Amoxicillin 500 mg tablet TAKE 4 TABLETS BY MOUTH 1 (ONE) HOUR BEFORE procedure then TAKE 2 TABLETS BY MOUTH 6 (SIX) hours after procedure - acetaminophen (TYLENOL) 500 mg tablet Take 2 tablets by mouth every 6 hours as needed for pain. - aspirin, enteric coated (ASPIRIN, ENTERIC COATED) 81 mg EC tablet Take 1 tablet by mouth twice daily. - metoprolol tartrate, short acting, (LOPRESSOR) 50 mg tablet Take 1 tablet by mouth twice daily. - COMPOUNDED PRESCRIPTION 16 fr catheters - lisinopril (ZESTRIL, PRINIVIL) 20 mg tablet Take 20 mg by mouth once daily. - ascorbic acid, vitamin C, (VITAMIN C) 500 mg tablet Take 1 tablet by mouth once daily. - MAGNESIUM HYDROXIDE (MILK OF MAGNESIA ORAL) Take 1 Bottle by mouth as needed. - isosorbide mononitrate ER (IMDUR) 60 mg 24 hr tablet Take 60 mg by mouth once daily. - cholecalciferol (VITAMIN D3) 1,000 unit tab tablet Take 1,000 Units by mouth once daily. - Multivitamin capsule Take 1 capsule by mouth once daily. - rosuvastatin (CRESTOR) 40 mg tablet Take 40 mg by mouth once daily. Problem List As Of Date 08/09/2023 Noted Resolved Shoulder weakness [R29.898] 03/12/2017 Brachial plexopathy [G54.0] 03/12/2017 Cervical spinal stenosis [M48.02] 03/12/2017 Cervical spondylosis with myelopathy [M47.12] 05/04/2017 Preop testing [Z01.818] 05/04/2017 CAD (coronary artery disease) [I25.10] 02/13/2004 Essential hypertension [I10] Mixed hyperlipidemia [E78.2] Cervical stenosis of spine [M48.02] 05/29/2017 Urge incontinence [N39.41] 06/20/2017 Obesity, Class I, BMI 30-34.9 [E66.9] 10/28/2018 Osteoarthritis of right knee [M17.11] 10/30/2018 Chronic knee pain after total replacement of ri*11/14/2019 History of lumbar fusion [Z98.1] 06/17/2020 Primary osteoarthritis of right hip [M16.11] 06/17/2020 Loose right total knee arthroplasty (HCC) [T84.*06/17/2020 Pre-op evaluation [Z01.818] 04/12/2021 Rotator cuff tear arthropathy of right shoulder*04/12/2021 Encounter Status:Closed by FIFI GREGORY on 08/09/23 Normal [facility] ANES POSTPROC EVALon 024 ANES POSTPROC EVAL HNO ID: [id number] Author: ARIANNA HAYNES MD Service: Anesthesiology Author Type: Anesthesiologist Type: Anesthesia Postprocedure Evaluation Filed: 08/02/2023 09:55 Note Text: POST ANESTHESIA EVALUATION NOTE : 1950 Procedure Summary Date: 08/02/23 Room / Location: [address] / [facility] Anesthesia Start: 903 Anesthesia Stop: 950 Procedures: DILATION OF URETHRAL STRICTURE BY PASSAGE OF SOUND OR URETHRAL DILATOR, MALE; INITIAL (Bladder) CYSTOURETHROSCOPY W/INJECTION(S) FOR CHEMODENERVATION OF THE BLADDER (Urethra) Diagnosis: 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 stricture Overactive bladder (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 stricture [N99.114]) (Overactive bladder [N32.81]) Surgeons: Louie Salomon MD Responsible Provider: Arianna Haynes MD Anesthesia Type: general ASA Status: 3 Anesthesia Type: general Airway Type: LMA Last Vitals Vitals Value Taken Time BP 135/79 08/02/23 0945 Temp 36 ?C (96.8 ?F) 08/02/23 0945 Pulse 59 08/02/23 0954 Resp 16 08/02/23 0945 SpO2 100 % 08/02/23 0954 Vitals shown include unfiled device data. Post Anesthesia Patient Status Patient Evaluation: PACU. PACU/ICU Patient Condition: stable. Neurological Status: aware and responsive. Pulmonary Status: breathing comfortably on room air Airway Control: returned to baseline unsupported. Cardiovascular Status: stable. Pain Management: clinically adequate Postoperative Hydration: acceptable. Intraoperative Events: no significant anesthesia events Post Operative Nausea/Vomiting Status: no significant post operative nausea or vomiting Recommendation: continue current plan of care. Anesthesia Observations No Documentation SIGNATURE: Arianna Haynes MD PATIENT NAME: Fahad Sotelo DATE: August 02, 2023 TIME: 9:55 AM CSN: [id number] [facility] ANES PRE-OPon 08-02-2023 ANES PRE-OP HNO ID: [id number] Author: ARIANNA HAYNES MD Service: Anesthesiology Author Type: Anesthesiologist Type: Anesthesia Preprocedure Evaluation Filed: 08/02/2023 08:03 Note Text: ANESTHESIOLOGY DAY OF SURGERY NOTE : 1950 Procedure Information Date/Time: 08/02/23 0845 Procedures: DILATION OF URETHRAL STRICTURE BY PASSAGE OF SOUND OR URETHRAL DILATOR, MALE; INITIAL (Bladder) CYSTOURETHROSCOPY W/INJECTION(S) FOR CHEMODENERVATION OF THE BLADDER (Urethra) Location: [facility] Surgeons: Louie Salomon MD Estimated body mass index is 32.73 kg/m? as calculated from the following: Height as of 07/05/23: 176.5 cm (5' 9.5 ). Weight as of 07/05/23: 102 kg (224 lb 13.9 oz). Most recent hematocrit and potassium results: Hematocrit 48.0 07/05/2023 Potassium 4.1 07/05/2023 Relevant Problems CARDIO (+) CAD (coronary artery disease) (+) Essential hypertension I - PHYSICAL EVALUATION AIRWAY Patient intubated: No. Tracheostomy tube not present Mallampati: II. TM distance: >3 FB. Neck ROM: full ROM without neurological symptoms. Mouth opening: adequate. Short neck: no. Thick neck: no DENTAL Dental findings: teeth intact. Additional exam findings: no II - ANESTHESIA PLAN ASA Score: 3 Anesthetic Plan: general Airway type: LMA The patient is not a current smoker. NPO Status: adequate Beta [place] Monitoring Plan Monitoring plan: standard ASA. Post Procedure Analgesic Plan Postoperative analgesic plan: multimodal analgesia. Informed Consent Anesthetic risks, benefits, alternatives, personnel and consent discussed: yes. Patient / Responsible [place] Party agrees to proceed: yes Patient / Surrogate agrees to blood products: Yes Potential Anesthesia issues that may suggest increased risk of complications or contraindication to planned procedure: none. No vitals data found for the desired time range. Facility-Administered Medications as of 08/02/2023 Medication Dose Route Frequency lidocaine (PF) 10 mg/mL (1 %) 1-2 mg injection (XYLOCAINE) 0.1-0.2 mL INTRADERMAL PRN lactated ringers iv infusion 5-30 mL/hr INTRAVENOUS CONTINUOUS NaCl 0.9% iv flush bag 20 mL INTRAVENOUS PRN ceFAZolin iv piggyback 2 g in D5W (iso-osmotic) 100 mL (ANCEF) 2 g INTRAVENOUS Pre-Op Once [COMPLETED] acetaminophen 1,000 mg tab(s) (TYLENOL) 1,000 mg ORAL ONCE lactated ringers iv infusion 30 mL/hr INTRAVENOUS CONTINUOUS Outpatient Medications as of 08/02/2023 Medication Sig plecanatide (TRULANCE) 3 mg tablet Take 1 tablet by mouth once daily. acetaminophen (TYLENOL) 500 mg tablet Take 2 tablets by mouth every 6 hours as needed for pain. metoprolol tartrate, short acting, (LOPRESSOR) 50 mg tablet Take 1 tablet by mouth twice daily. lisinopril (ZESTRIL, PRINIVIL) 20 mg tablet Take 20 mg by mouth once daily. rosuvastatin (CRESTOR) 40 mg tablet Take 40 mg by mouth once daily. Amoxicillin 500 mg tablet TAKE 4 TABLETS BY MOUTH 1 (ONE) HOUR BEFORE procedure then TAKE 2 TABLETS BY MOUTH 6 (SIX) hours after procedure aspirin, enteric coated (ASPIRIN, ENTERIC COATED) 81 mg EC tablet Take 1 tablet by mouth twice daily. COMPOUNDED PRESCRIPTION 16 fr catheters ascorbic acid, vitamin C, (VITAMIN C) 500 mg tablet Take 1 tablet by mouth once daily. MAGNESIUM HYDROXIDE (MILK OF MAGNESIA ORAL) Take 1 Bottle by mouth as needed. isosorbide mononitrate ER (IMDUR) 60 mg 24 hr tablet Take 60 mg by mouth once daily. cholecalciferol (VITAMIN D3) 1,000 unit tab tablet Take 1,000 Units by mouth once daily. Multivitamin capsule Take 1 capsule by mouth once daily. I have interviewed and examined the patient. I have reviewed the medical record and/or the pre-anesthesia evaluation, pertinent labs, and test results. This contains updated information obtained within 48 hours of Surgery/Procedure. SIGNATURE: Arianna Haynes MD PATIENT NAME: Fahad Sotelo DATE: August 02, 2023 TIME: 7:58 AM CSN: [id number] [facility] OPERATIVE NOon 08-02-2023 OPERATIVE NO HNO ID: [id number] Author: LOUIE SALOMON MD Service: Urology Author Type: Physician Type: Operative Report Filed: 08/02/2023 09:44 Note Text: OPERATIVE/PROCEDURE REPORT LOG ID: [id number] Surgery/Procedure Date: 08/02/2023 Incision/Procedure Start Time: 9:21 AM Incision Close/Procedure End Time: 9:37 AM Surgeon(s)/Procedurali st(s) and Check Processing Clerk(s): Surgeon(s) and Role: * Louie Salomon MD - Primary Procedure(s): Procedure(s) and Anesthesia Type: * DILATION OF URETHRAL STRICTURE BY PASSAGE OF SOUND OR URETHRAL DILATOR, MALE; INITIAL - General * CYSTOURETHROSCOPY W/INJECTION(S) FOR CHEMODENERVATION OF THE BLADDER - General Anatomic Site: urethra, bladder Approach: endoscopic Anesthesia: General Pre-Op/Pre-Procedure Diagnosis: Pre-Op Diagnosis Codes: * 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 stricture [N99.114] * Overactive bladder [N32.81] Post-Op/Post-Procedure Diagnosis: Post-Op Diagnosis Codes: * 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 stricture [N99.114] * Overactive bladder [N32.81] Estimated Blood Loss: 2 mls Specimens: * No specimens in log * Operative Indications: This is a 72 year old male with a history of OAB, slightly reduced bladder compliance, urgency, frequency, urethral stricture on self dilation. After discussing the risks, benefits, and alternatives of the procedure he has elected to pursue management via the aforementioned surgery. Procedure Details: The patient was correctly identified and the operative plan was confirmed with the patient and the operative team. A weight appropriate dose of prophylactic antibiotics was administered intravenously prior to the procedure and sequential compression devices were applied to the lower extremities and activated prior to induction of anesthesia. The patient was placed in the lithotomy position. General anesthesia was induced. All pressure points were padded per protocol and the operative area was prepped and draped in the standard sterile fashion. A 19.5F cystoscope was advanced via meatus. A tight fossa navicularis stricture was encountered. A wire was advanced and the stricture was dilated from 10 to 22F. The scope was advanced. The remainder of the urethra was mildly narrowed but with no focal strictures. The prostate was short and open. The bladder was small in capacity and trabeculated. 300 units of botox in 20mls of saline was injected in 1.5ml aliquots well dispersed around the bladder. No bleeding was noted. A 20 duncan was placed and the balloon inflated to 10mls. The patient tolerated the procedure well, emerged from anesthesia without incident, and was transferred to PACU in stable condition. Counts were correct at the end of the case and there we no complications, accidental punctures or lacerations. Implantable Devices: None Drains: 20F duncan Complications: None Qualifier: None I performed the case without assistance Louie Salomon MD Post op plan: Duncan to be removed in 2-5 days and resume CIC QID Repeat VUDS in 4-6 weeks Normal [facility] 07-11-2023 [facility] Telephone (URFMOB) FAHAD SOTELO ([id number]) 1950 M Date Time Provider Department 07/11/23 LOUIE SALOMON UROB During your visit today, we recorded the following information about you: Louie Salomon MD 07/11/2023 11:03 AM Signed Called patient re: urine culture results He is not having symptoms Because we are planning a procedure I would rec treatment Abx sent to his pharmacy Allergies As of Date: 07/11/2023 Noted Allergy Reaction BEE POLLEN 01/30/2014 7 - Swelling BEE STING 01/02/2019 7 - Swelling HAY FEVER (SEASONAL ALLERGIES) 04/12/2021 14 - Other: See Comments Comments: Sneezing. OXYBUTYNIN 06/20/2013 14 - Other: See Comments Comments: Other Reaction(s): Constipation VENOM-HONEY BEE 12/30/2018 14 - Other: See Comments 7 - Swelling Comments: Other Reaction(s): Unknown TROSPIUM 03/31/2014 14 - Other: See Comments Comments: Other Reaction(s): Xerostomia Date Reviewed: 07/05/2023 Reviewed by: Rigo Cano APRN.SHOE REPAIRER APPRENTICE - Fully Assessed Order(s):cephALEXin (KEFLEX) 500 mg capsuleTake 1 capsule by mouth three times a day for 7 days.Disp: 21 capsuleRfl: 0 Prescriptions as of 07/11/2023 - cephALEXin (KEFLEX) 500 mg capsule Take 1 capsule by mouth three times a day for 7 days. - plecanatide (TRULANCE) 3 mg tablet Take 1 tablet by mouth once daily. - nitroglycerin sublingual (NITROQUICK) 0.4 mg SL tablet as directed Sublingual - Amoxicillin 500 mg tablet TAKE 4 TABLETS BY MOUTH 1 (ONE) HOUR BEFORE procedure then TAKE 2 TABLETS BY MOUTH 6 (SIX) hours after procedure - acetaminophen (TYLENOL) 500 mg tablet Take 2 tablets by mouth every 6 hours as needed for pain. - aspirin, enteric coated (ASPIRIN, ENTERIC COATED) 81 mg EC tablet Take 1 tablet by mouth twice daily. - metoprolol tartrate, short acting, (LOPRESSOR) 50 mg tablet Take 1 tablet by mouth twice daily. - COMPOUNDED PRESCRIPTION 16 fr catheters - lisinopril (ZESTRIL, PRINIVIL) 20 mg tablet Take 20 mg by mouth once daily. - ascorbic acid, vitamin C, (VITAMIN C) 500 mg tablet Take 1 tablet by mouth once daily. - MAGNESIUM HYDROXIDE (MILK OF MAGNESIA ORAL) Take 1 Bottle by mouth as needed. - isosorbide mononitrate ER (IMDUR) 60 mg 24 hr tablet Take 60 mg by mouth once daily. - cholecalciferol (VITAMIN D3) 1,000 unit tab tablet Take 1,000 Units by mouth once daily. - Multivitamin capsule Take 1 capsule by mouth once daily. - rosuvastatin (CRESTOR) 40 mg tablet Take 40 mg by mouth once daily. Problem List As Of Date 07/11/2023 Noted Resolved Shoulder weakness [R29.898] 03/12/2017 Brachial plexopathy [G54.0] 03/12/2017 Cervical spinal stenosis [M48.02] 03/12/2017 Cervical spondylosis with myelopathy [M47.12] 05/04/2017 Preop testing [Z01.818] 05/04/2017 CAD (coronary artery disease) [I25.10] 02/13/2004 Essential hypertension [I10] Mixed hyperlipidemia [E78.2] Cervical stenosis of spine [M48.02] 05/29/2017 Urge incontinence [N39.41] 06/20/2017 Obesity, Class I, BMI 30-34.9 [E66.9] 10/28/2018 Osteoarthritis of right knee [M17.11] 10/30/2018 Chronic knee pain after total replacement of ri*11/14/2019 History of lumbar fusion [Z98.1] 06/17/2020 Primary osteoarthritis of right hip [M16.11] 06/17/2020 Loose right total knee arthroplasty (HCC) [T84.*06/17/2020 Pre-op evaluation [Z01.818] 04/12/2021 Rotator cuff tear arthropathy of right shoulder*04/12/2021 Prescriptions ordered this encounter Disp Refills Start End CEPHALEXIN 500 MG CAPSULE 21 c* 0 07/11/2023 07/18/2023 Route: ORAL Sig: Take 1 capsule by mouth three times a day for 7 days. Encounter Status:Closed by LOUIE SALOMON on 07/11/23 [facility] Bacteria Ur Culton Bacteria identified Cx Nom (U) ORGANISM ID: 1 >=100,000 CFU/ml Escherichia coli ORGANISM ID: 1 (ESCHERICHIA COLI) -- ANTIBIOTIC INTERPRETATION RL STATUS REFERENCE RANGE -- Ampicillin S 4 F Susceptible <=8 , Intermediate >8 , Resistant >16 Cefazolin S <=4 F Susceptible 0-16 , Intermediate <0 or >16 , Resistant >16 For uncomplicated urinary tract infections, cefazolin results can be used to predict susceptibility or resistance to cephalexin. Ceftriaxone S <=1 F Susceptible <=1 , Intermediate >1 , Resistant >=4 Cefepime S <=1 F Susceptible <=2 , Susceptible-Dose Dependent >2 , Resistant >=16 Ertapenem S <=0.5 F Susceptible <=0.5 , Intermediate >.5 , Resistant >1 Meropenem S <=0.25 F Susceptible <=1 , Intermediate >1 , Resistant >2 Ampicillin/Sulbact S <=2 F Susceptible <=8 , Intermediate >8 , Resistant >16 Piperacillin/Tazobac S <=4 F Susceptible <16 , Susceptible-Dose Dependent >=16 , Resistant >=32 Gentamicin S <=1 F Susceptible <=2 , Intermediate >2 , Resistant >=8 Tobramycin S <=1 F Susceptible <4 , Intermediate >=4 , Resistant >=8 Trimeth sulfameth S <=20 F Susceptible <=40 , Resistant >40 Ciprofloxacin S <=0.25 F Susceptible <0.5 , Intermediate >=.5 , Resistant >=1 Nitrofurantoin S <=16 F Susceptible <=32 , Intermediate >32 , Resistant >64 Abnormal [facility] Comment on above: Performed By: #### 6 30-4 #### [facility] CLIA [id number] [address] [place] [address] [place] CBC panel Auto (Bld)on 07-04 Erythrocyte distribution width (RBC) [Ratio] 12.1 % Normal 11.5-15.0 [facility] Comment on above: Order Comment: Speci men Type: BLOOD SPECIMENOrdering Facility: [facility] Address: [address] [place] [address] Performed By: #### 6 30-4 #### [facility] CLIA [id number] [address] [place] [address] [place] Hematocrit (Bld) [Volume fraction] 48.0 % Normal 39.0-51.0 [facility] Comment on above: Order Comment: Speci men Type: BLOOD SPECIMENOrdering Facility: [facility] Address: [address] [place] [address] Performed By: #### 6 30-4 #### [facility] CLIA [id number] [address] [place] [address] [place] Hemoglobin (Bld) [Mass/Vol] 15.9 g/dL Normal 13.0-17.0 [facility] Comment on above: Order Comment: Speci men Type: BLOOD SPECIMENOrdering Facility: [facility] Address: [address] [place] [address] Performed By: #### 6 30-4 #### [facility] CLIA [id number] [address] [place] [address] [place] MCH (RBC) [Entitic mass] 30.9 pg Normal 26.0-34.0 [facility] Comment on above: Order Comment: Speci men Type: BLOOD SPECIMENOrdering Facility: [facility] Address: [address] [place] [address] Performed By: #### 6 30-4 #### [facility] CLIA [id number] [address] [place] [address] [place] MCHC (RBC) [Mass/Vol] 33.1 g/dL Normal 30.5-36.0 [facility] Comment on above: Order Comment: Speci men Type: BLOOD SPECIMENOrdering Facility: [facility] Address: [address] [place] [address] Performed By: #### 6 30-4 #### [facility] CLIA [id number] [address] [place] [address] [place] MCV (RBC) [Entitic vol] 93.4 fL Normal 80.0-100.0 [facility] Comment on above: Order Comment: Speci men Type: BLOOD SPECIMENOrdering Facility: [facility] Address: [address] [place] [address] Performed By: #### 6 30-4 #### [facility] CLIA [id number] [address] [place] [address] [place] Nucleated RBC (Bld) [#/Vol] 10*3/uL Normal <0.01 [facility] Comment on above: Order Comment: Speci men Type: BLOOD SPECIMENOrdering Facility: [facility] Address: [address] [place] [address] Performed By: #### 6 30-4 #### [facility] CLIA [id number] [address] [place] [address] [place] Platelet mean volume (Bld) [Entitic vol] 10.7 fL Normal 9.0-12.7 [facility] Comment on above: Order Comment: Speci men Type: BLOOD SPECIMENOrdering Facility: [facility] Address: [address] [place] [address] Performed By: #### 6 30-4 #### [facility] CLIA [id number] [address] [place] [address] [place] Platelets (Bld) [#/Vol] 177 10*3/uL Normal 150-400 [facility] Comment on above: Order Comment: Speci men Type: BLOOD SPECIMENOrdering Facility: [facility] Address: [address] [place] [address] Performed By: #### 6 30-4 #### [facility] CLIA [id number] [address] [place] [address] [place] RBC (Bld) [#/Vol] 5.14 10*6/uL Normal 4.20-6.00 [facility] Comment on above: Order Comment: Speci men Type: BLOOD SPECIMENOrdering Facility: [facility] Address: [address] [place] [address] Performed By: #### 6 30-4 #### [facility] CLIA [id number] [address] [place] [address] [place] WBC (Bld) [#/Vol] 7.00 10*3/uL Normal 3.70-11.00 [facility] Comment on above: Order Comment: Speci men Type: BLOOD SPECIMENOrdering Facility: [facility] Address: [address] [place] [address] Performed By: #### 6 30-4 #### [facility] CLIA [id number] [address] [place] [address] [place] Comprehensive metabolic 2000 panelon 07-05-2023 Albumin [Mass/Vol] 4.1 g/dL Normal 3.9-4.9 [facility] Comment on above: Order Comment: Speci men Type: BLOOD SPECIMENOrdering Facility: [facility] Address: [address] [place] [address] Performed By: #### 6 30-4 #### [facility] CLIA [id number] [address] [place] [address] [place] ALP [Catalytic activity/Vol] 66 U/L Normal 38-113 [facility] Comment on above: Order Comment: Speci men Type: BLOOD SPECIMENOrdering Facility: [facility] Address: [address] [place] [address] Performed By: #### 6 30-4 #### [facility] CLIA [id number] [address] [place] [address] [place] ALT [Catalytic activity/Vol] 18 U/L Normal 10-54 [facility] Comment on above: Order Comment: Speci men Type: BLOOD SPECIMENOrdering Facility: [facility] Address: [address] [place] [address] Performed By: #### 6 30-4 #### [facility] CLIA [id number] [address] [place] [address] [place] Anion gap [Moles/Vol] 9 mmol/L Normal 9-18 [facility] Comment on above: Order Comment: Speci men Type: BLOOD SPECIMENOrdering Facility: [facility] Address: [address] [place] [address] Performed By: #### 6 30-4 #### [facility] CLIA [id number] [address] [place] [address] [place] AST [Catalytic activity/Vol] 14 U/L Normal 14-40 [facility] Comment on above: Order Comment: Speci men Type: BLOOD SPECIMENOrdering Facility: [facility] Address: [address] [place] [address] Performed By: #### 6 30-4 #### [facility] CLIA [id number] [address] [place] [address] [place] Bilirubin [Mass/Vol] 0.8 mg/dL Normal 0.2-1.3 [facility] Comment on above: Order Comment: Speci men Type: BLOOD SPECIMENOrdering Facility: [facility] Address: [address] [place] [address] Performed By: #### 6 30-4 #### [facility] CLIA [id number] [address] [place] [address] [place] Calcium [Mass/Vol] 9.2 mg/dL Normal 8.5-10.2 [facility] Comment on above: Order Comment: Speci men Type: BLOOD SPECIMENOrdering Facility: [facility] Address: [address] [place] [address] Performed By: #### 6 30-4 #### [facility] CLIA [id number] [address] [place] [address] [place] Chloride [Moles/Vol] 105 mmol/L Normal 97-105 [facility] Comment on above: Order Comment: Speci men Type: BLOOD SPECIMENOrdering Facility: [facility] Address: [address] [place] [address] Performed By: #### 6 30-4 #### [facility] CLIA [id number] [address] [place] [address] [place] CO2 [Moles/Vol] 28 mmol/L Normal 22-30 [facility] Comment on above: Order Comment: Speci men Type: BLOOD SPECIMENOrdering Facility: [facility] Address: [address] [place] [address] Performed By: #### 6 30-4 #### [facility] CLIA [id number] [facility] [place] [address] [place] Creatinine [Mass/Vol] 0.74 mg/dL Normal 0.73-1.22 [facility] Comment on above: Order Comment: Jonathan perez Type: BLOOD SPECIMENOrdering Facility: [facility] Address: [address] [place] [address] Performed By: #### 6 30-4 #### [facility] CLIA [id number] [address] [place] [address] [place] Creatinine and Glomerular filtration rate.predicted panel (S/P/Bld) 95 mL/min/1.73m??? Normal >=60 [facility] Comment on above: Order Comment: Jonathan perez Type: BLOOD SPECIMENOrdering Facility: [facility] Address: [address] [place] [address] Result Comment: Ara mated Glomerular Filtration Rate (eGFR) is calculated using the 2020 CKD-EPI creatinine equation. This equation utilizes serum creatinine, sex, and age as parameters. The creatinine assay has traceable calibration to isotope dilution-mass spectrometry. Refer to KDIGO guidelines for clinical interpretation. In patients with unstable renal function, e.g. those with acute kidney injury, the eGFR may not accurately reflect actual GFR. Performed By: #### 6 30-4 #### [facility] CLIA [id number] [address] [place] [address] [place] Glucose [Mass/Vol] 119 mg/dL High 74-99 [facility] Comment on above: Order Comment: Jonathan perez Type: BLOOD SPECIMENOrdering Facility: [facility] Address: [address] [place] [address] Result Comment: The [place] Diabetes [employer] (ADA) provides guidance for cutoff values for fasting glucose and random glucose. The ADA defines fasting as no caloric intake for at least 8 hours. Fasting plasma glucose results between 100 to 125 mg/dL indicate increased risk for diabetes (prediabetes). Fasting plasma glucose results greater than or equal to 126 mg/dL meet the criteria for diagnosis of diabetes. In the absence of unequivocal hyperglycemia, results should be confirmed by repeat testing. In a patient with classic symptoms of hyperglycemia or hyperglycemic crisis, random plasma glucose results greater than or equal to 200 mg/dL meet the criteria for diagnosis of diabetes. Reference: Standards of Medical Care in Diabetes 2016, [place] [employer]. Diabetes Care. 2016.39(Suppl 1). Performed By: #### 6 30-4 #### [facility] CLIA [id number] [address] [place] [address] [place] Potassium [Moles/Vol] 4.1 mmol/L Normal 3.7-5.1 [facility] Comment on above: Order Comment: Speci men Type: BLOOD SPECIMENOrdering Facility: [facility] Address: [address] [place] [address] Performed By: #### 6 30-4 #### [facility] CLIA [id number] [address] [place] [address] [place] Protein [Mass/Vol] 6.5 g/dL Normal 6.3-8.0 [facility] Comment on above: Order Comment: Speci men Type: BLOOD SPECIMENOrdering Facility: [facility] Address: [address] [place] [address] Performed By: #### 6 30-4 #### [facility] CLIA [id number] [address] [place] [address] [place] Sodium [Moles/Vol] 142 mmol/L Normal 136-144 [facility] Comment on above: Order Comment: Speci men Type: BLOOD SPECIMENOrdering Facility: [facility] Address: [address] [place] [address] Performed By: #### 6 30-4 #### [facility] CLIA [id number] [address] [place] [address] [place] Urea nitrogen [Mass/Vol] 16 mg/dL Normal 9-24 [facility] Comment on above: Order Comment: Speci men Type: BLOOD SPECIMENOrdering Facility: [facility] Address: [address] [place] [address] Performed By: #### 6 30-4 #### [facility] CLIA [id number] [address] [place] [address] [place] [address] [place] HISTORY PHYSICALon HISTORY PHYSICAL HNO ID: [id number] Author: RIGO CANO APRN.SHOE REPAIRER APPRENTICE Service: ? Author Type: Nurse Practitioner Type: H&P Filed: 07/06/2023 11:05 Note Text: HISTORY AND PHYSICAL EXAMINATION SERVICE DATE: 07/05/2023 SERVICE TIME: 9:47 AM PRIMARY CARE PHYSICIAN: Stanton Velasco II, MD, MD REASON FOR VISIT: Fahad Sotelo is a 72 year old male who is scheduled for DILATION OF URETHRAL STRICTURE BY PASSAGE OF SOUND OR URETHRAL DILATOR, MALE; INITIAL CYSTOURETHROSCOPY W/INJECTION(S) FOR CHEMODENERVATION OF THE BLADDER at the request of Dr. Louie Salomon for consultation. My final recommendation will be communicated back to the requesting physician by way of shared medical record or letter. Assessment Patient has the following medical conditions which may affect jayant-operative course: CAD (coronary artery disease) Assessment: LA in 1997. 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 in 2004 emergency CABG due to complicated PCI stable on ASA follows with Cardiology Last OV 06/11/2023 Cervical spondylosis with myelopathy Assessment: s/p cervical fusion Essential hypertension Assessment: Stable on medication Today BP: 124/70 To take medication morning of surgery Mixed hyperlipidemia Assessment: stable on medication Obesity, Class I, BMI 30-34.9 Assessment: Body mass index is 32.73 kg/m?. Urge incontinence Assessment: Patient states that he self caths twice daily. Leal Activity Status Index: METS: Walk indoors, such as around the house (1.75 METs) Do light work around the house, such as dusting or washing dishes (2.70 METs) Take care of self; that is eating, dressing, bathing, using the toilet (2.75 METs) Walk a block or two on level ground (2.75 METs) Do moderate work around the house, such as vacuuming, sweeping floors, or carrying in groceries (3.50 METs) Do yardwork, such as raking leaves, weeding, or pushing a power mower (4.50 METs) Climb a flight of stairs or walk up a hill (5.50 METs) DASI Score: 23.45 Patient is totally dependent. Clinical Frailty Scale: 3. Well, with treated comorbid disease STOP-Bang Score: Has or is being treated for high blood pressure Patient over 50 years old Male patient Denies snoring loudly Denies feeling tired, fatigued, or sleepy during the daytime Has not been observed to stop breathing or choking/gasping during sleep BMI less than or equal to 35 kg/m2 Does not have a large neck STOP-Bang Score: 3 [id number] Score: Age: 65-74 Sex: male CHF history: No Hypertension history: Yes Stroke/TIA/thromboembo lism history: No Vascular disease history: Yes Diabetes history: No [id number] Score: 3 ARISCAT Score: Age: 51-80 Preoperative SpO2: >=96% Preoperative anemia: Yes Surgical incision: peripheral Duration of surgery: <2 hrs Emergency procedure: No ARISCAT Score: ANESTHESIA FINDINGS: Intubation History: No history of difficult intubation. No abnormal airway history Significant Anesthesia Considerations: none Airway History: No history of difficult airway No abnormal airway history I - PHYSICAL EVALUATION AIRWAY Patient intubated: No. Tracheostomy tube not present Mallampati: II. TM distance: >3 FB. Neck ROM: full ROM without neurological symptoms. Mouth opening: adequate. Short neck: no. Thick neck: no Smith present: no Lip Bite Test: II Microretrognathia/Micr onagthia/Recessed Chin: No DENTAL Dental findings: teeth intact. II - ANESTHESIA PLAN Anesthetic plan additional comments: *PACC/TCI - anesthesia choice. Beta Domingo Monitoring Plan Post Procedure Analgesic Plan Prepared for surgery: This patient is optimally prepared for surgery CONSULTS: Patient does not require consults for optimization at this time. The Following Tests/Procedures Have Been Initiated: Orders per surgeon Planned Anesthetic: Per anesthesia choice Subjective CHIEF COMPLAINT: Urethral stricture HPI: 72 year old male with a history of CAD, prior CABG, spine surgery who presents for evaluation for urinary urgency, frequency, urethral stricture Main complaint is frequency, slow stream This has been going on for ten years Cathing twice a day - caths post void and gets usually a very small amount out Was using a 16, then 14, then back to 16F after Dr Ramos did the dilation Voids roughly hourly, sometimes every 10 minutes Urethral dilation in May [address] Ramos He has been doing CIC daily with a 16F to maintain patency PAST MEDICAL HISTORY Diagnosis Date CAD (coronary artery disease) 2005 LA in 1997. Had a stent placed in 2008 c/b coronary artery dissection and that lead to a CABG x1 in 2008 Former smoker quit 1997 Hyperlipidemia Hypertension Intermittent self-catheterization of bladder Urge incontinence of urine PAST SURGICAL HISTORY Procedure Laterality Date ARTHRP KNE CONDYLEANDPLATU MEDIALANDLAT COMPARTMENTS 10/30 (more content not included)... Normal [facility] 36on 07-02-2023 36 Regarding stress dyan t result from 06/27/2023: MD Mayra Nice MA Please reassure the patient that his stress test is normal I will see him as planned in 1 year after his visit Thank you Patient made aware. Normal [facility] US RENAL COMPLETEon 06-28-19 24 US RENAL COMPLETE EXAMINATION: US HARRISON L COMPLETE HISTORY: Urethral stricture TECHNIQUE: Ultrasound evaluation was performed of the kidneys and bladder. COMPARISON: None available FINDINGS: Right kidney measures 10.6 x 5.1 x 5.8 cm. Corticomedullary differentiation is maintained. No contour deforming masses, shadowing stones, or hydronephrosis. Left kidney measures 11.8 x 5.4 x 5.8 cm. Corticomedullary differentiation is maintained. No contour deforming masses, shadowing stones, or hydronephrosis. Prevoid bladder volume measured at 193 mL and post void residual measured at 54 mL for post void residual of 28%. Bilateral ureteral jets are visualized. No urinary bladder wall lesion identified. IMPRESSION: Normal appearance of the kidneys. Suboptimal distention of the urinary bladder limits its evaluation however no overt abnormality is identified. ELECTRONICALLY SIGNED BY: Lucien Magdaleno, DO Normal Not Available CNOVon 06-20-2023 CNOV Office Visit (URFMOB ) FAHAD SOTELO ([id number]) 1950 M Date Time Provider Department 06/20/23 10:30 AM LOUIE SALOMON During your visit today, we recorded the following information about you: Pulse Blood pressure 64/minute 128/70 Leoncio Zavala MA 06/20/2023 3:02 PM Signed Post Void Residual done on patient with 0 cc residual volume remaining. MD notified. DIAZ Edward Molly, MD 06/20/2023 3:02 PM Addendum [facility] UROLOGY NEW PATIENT CLINIC NOTE SERVICE DATE: 06/20/2023 NAME: Fahad Sotelo REFERRED BY: No referring provider defined for this encounter. Consultation requested by Dr. Ramos for an opinion regarding urethral stricture. My final recommendations will be communicated back to the requesting physician by way of shared Medical record or letter to requesting physician via US mail. CHIEF COMPLAINT frequency HISTORY OF PRESENT ILLNESS Mr. Sotelo is a 72 year old male with a history of CAD, prior CABG, spine surgery who presents for evaluation for urinary urgency, frequency, urethral stricture Main complaint is frequency, slow stream This has been going on for ten years Cathing twice a day - caths post void and gets usually a very small amount out Was using a 16, then 14, then back to 16F after Dr Ramos did the dilation Voids roughly hourly, sometimes every 10 minutes Urethral dilation in May [address] Ramos He has been doing CIC daily with a 16F to maintain patency Had SNM stage 1 without improvement Didn't tolerate flomax, mirabegron too expensive UDS in 2020 - Rise in pdet to 20 over 214ml capacity Rise in pdet with permission to void Slow flow, voided 155 Non invasive uroflow Qmax 6.4ml/s, pvr 30 Was recommended botox and CIC Tried botox 200 without improvement Spine surgery Bladder symptoms started over 10 years ago No [facility] imaging Cr 1 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 Had a stent placed in 2008 c/b coronary artery dissection and that lead to a CABG x1 in 2008 Former smoker quit 1997 Hyperlipidemia Hypertension Intermittent self-catheterization of bladder Urge incontinence of urine PAST SURGICAL HISTORY PAST SURGICAL HISTORY Procedure Laterality Date ARTHRP KNE CONDYLEANDPLATU MEDIALANDLAT COMPARTMENTS 10/30/2018 right CABG (1) VEIN GRAFT AND ARTERIAL GRAFT 2008 coronary dissection during stent placement CHEMODNRVTJ [facility] INNERVATED FACIAL NRV UNIL CYSTO.PANENDO 11/24/2021 Dr. Dye CYSTO.PANENDO 05/31/2022 CYSTO.PANENDO N/A 06/04/2023 CYSTOSCOPY 03/29/2017 Dr. Fady Dye - [facility] LEFT HEART CATH,PERCUTANEOUS 05/11/2003 Cardiac cath, L heart LEFT HEART CATH,PERCUTANEOUS 12/08/2009 Cardiac cath, L heart LEFT HEART CATH,PERCUTANEOUS 03/15/2011 Cardiac cath, L heart with Stent placement OHS OFF PUMP PAST SURGICAL HISTORY OF Lumbar spine surgery. PAST SURGICAL HISTORY OF 05/29/2017 cervical spine surgery with fusion ROTATOR CUFF REPAIR Left 2016 TRURL ELECTROSURG RESCJ PROSTATE BLEED COMPLETE URODYNAMICS 03/29/2017 Procedure done by Nava Back LPN, [facility] FAMILY HISTORY FAMILY HISTORY Problem Relation Age of Onset Coronary Artery Disease Mother Stroke Mother 65 Diabetes Sister Diabetes Brother Anesthesia Problems No Family History SOCIAL HISTORY Social History Tobacco Use Smoking status: Former Packs/day: 1.25 Years: 10.00 Additional pack years: 0.00 Total pack years: 12.50 Types: Cigarettes Quit date: 11/13/1997 Years since quittin.6 Smokeless tobacco: Never Vaping Use Vaping Use: Never used Substance Use Topics Alcohol use: Yes Comment: 2 cans of beer per year. Drug use: No Comment: denies tx for drug/alcohol abuse in the past. MEDICATIONS Current Outpatient Medications Medication Sig Amoxicillin 500 mg tablet TAKE 4 TABLETS BY MOUTH 1 (ONE) HOUR BEFORE procedure then TAKE 2 TABLETS BY MOUTH 6 (SIX) hours after procedure trospium (SANCTURA) 20 mg tablet Take 1 tablet by mouth once daily. acetaminophen (TYLENOL) 500 mg tablet Take 2 tablets by mouth every 6 hours as needed for pain. ezetimibe (ZETIA) 10 mg tablet Take 10 mg by mouth once daily. aspirin, enteric coated (ASPIRIN, ENTERIC COATED) 81 mg EC tablet Take 1 tablet by mouth twice daily. metoprolol tartrate, short acting, (LOPRESSOR) 50 mg tablet Take 1 tablet by mouth twice daily. COMPOUNDED PRESCRIPTION 16 fr catheters lisinopril (ZESTRIL, PRINIVIL) 20 mg tablet Take 20 mg by mouth once daily. ascorbic acid, vitamin C, (VITAMIN C) 500 mg tablet Take 1 tablet by mouth once daily. MAGNESIUM HYDROXIDE (MILK OF MAGNESIA ORAL) (more content not included)... Normal [facility] Office Visiton 06-11-2023 Follow-up visit [id number] Fahad Sotelo 1950 M Date Provider Department Center 06/11/2023 271-TAMANNA JOSHUA PATRICK Lezama Family History Problem Relation Age of Onset Coronary artery disease Other Stroke Other Heart attack Other Family Status - Relation Status Age at Other Level of Service:037[address] [place] OFFICE/OUTPATIENT ESTABLISHED MOD MDM 30 MIN Normal [facility] Keanu 06-10-2023 NOHELIA Telephone (UROLAV) FAHAD SOTELO ([id number]) 1950 M Date Time Provider Department 06/10/23 MILO RAMOS UROLAV During your visit today, we recorded the following information about you: Milo Ramos MD 06/10/2023 6:18 PM Signed Please update the patient , keflex sent to pharmacy. MD Gerardo Prescott Ashley, RN 06/11/2023 9:09 AM Signed Called and spoke to patient. Updated patient on recent urine cx results. Keflex 500mg 1 capsule TID x 7 days sent to [id number] - [place] [address] - [address] - [phone]. Instructed patient to picking supervisor abx. Patient in agreement with plan. All questions answered at this time. Shameka Carrillo RN Allergies As of Date: 06/10/2023 Noted Allergy Reaction BEE POLLEN 01/30/2014 7 - Swelling BEE STING 01/02/2019 7 - Swelling HAY FEVER (SEASONAL ALLERGIES) 04/12/2021 14 - Other: See Comments Comments: Sneezing. Date Reviewed: 06/08/2023 Reviewed by: Kris Venegas RN - Fully Assessed Reason for Visit: Patient Update [1234] Order(s):cephALEXin (KEFLEX) 500 mg capsuleTake 1 capsule by mouth three times a day for 7 days.Disp: 21 capsuleRfl: 0 Prescriptions as of 06/11/2023 - cephALEXin (KEFLEX) 500 mg capsule Take 1 capsule by mouth three times a day for 7 days. - Amoxicillin 500 mg tablet TAKE 4 TABLETS BY MOUTH 1 (ONE) HOUR BEFORE procedure then TAKE 2 TABLETS BY MOUTH 6 (SIX) hours after procedure - trospium (SANCTURA) 20 mg tablet Take 1 tablet by mouth once daily. - acetaminophen (TYLENOL) 500 mg tablet Take 2 tablets by mouth every 6 hours as needed for pain. - ezetimibe (ZETIA) 10 mg tablet Take 10 mg by mouth once daily. - aspirin, enteric coated (ASPIRIN, ENTERIC COATED) 81 mg EC tablet Take 1 tablet by mouth twice daily. - metoprolol tartrate, short acting, (LOPRESSOR) 50 mg tablet Take 1 tablet by mouth twice daily. - COMPOUNDED PRESCRIPTION 16 fr catheters - lisinopril (ZESTRIL, PRINIVIL) 20 mg tablet Take 20 mg by mouth once daily. - ascorbic acid, vitamin C, (VITAMIN C) 500 mg tablet Take 1 tablet by mouth once daily. - MAGNESIUM HYDROXIDE (MILK OF MAGNESIA ORAL) Take 1 Bottle by mouth as needed. - isosorbide mononitrate ER (IMDUR) 60 mg 24 hr tablet Take 60 mg by mouth once daily. - cholecalciferol (VITAMIN D3) 1,000 unit tab tablet Take 1,000 Units by mouth once daily. - Multivitamin capsule Take 1 capsule by mouth once daily. - rosuvastatin (CRESTOR) 40 mg tablet Take 40 mg by mouth once daily. Problem List As Of Date 06/10/2023 Noted Resolved Shoulder weakness [R29.898] 03/12/2017 Brachial plexopathy [G54.0] 03/12/2017 Cervical spinal stenosis [M48.02] 03/12/2017 Cervical spondylosis with myelopathy [M47.12] 05/04/2017 Preop testing [Z01.818] 05/04/2017 CAD (coronary artery disease) [I25.10] 02/13/2004 Essential hypertension [I10] Mixed hyperlipidemia [E78.2] Cervical stenosis of spine [M48.02] 05/29/2017 Urge incontinence [N39.41] 06/20/2017 Obesity, Class I, BMI 30-34.9 [E66.9] 10/28/2018 Osteoarthritis of right knee [M17.11] 10/30/2018 Chronic knee pain after total replacement of ri*11/14/2019 History of lumbar fusion [Z98.1] 06/17/2020 Primary osteoarthritis of right hip [M16.11] 06/17/2020 Loose right total knee arthroplasty (HCC) [T84.*06/17/2020 Pre-op evaluation [Z01.818] 04/12/2021 Rotator cuff tear arthropathy of right shoulder*04/12/2021 Prescriptions ordered this encounter Disp Refills Start End CEPHALEXIN 500 MG CAPSULE 21 c* 0 06/10/2023 06/17/2023 Route: ORAL Sig: Take 1 capsule by mouth three times a day for 7 days. Encounter Status:Closed by MILO RAMOS on 06/10/23 Normal [facility] Bacteria Ur Culton 4 Bacteria identified Cx Nom (U) ORGANISM ID: 1 >=100,000 CFU/ml Klebsiella oxytoca ORGANISM ID: 1 (KLEBSIELLA OXYTOCA) -- ANTIBIOTIC INTERPRETATION RL STATUS REFERENCE RANGE -- Ampicillin R >=32 F Susceptible <=8 , Intermediate >8 , Resistant >16 Cefazolin S <=4 F Susceptible 0-16 , Intermediate <0 or >16 , Resistant >16 For uncomplicated urinary tract infections, cefazolin results can be used to predict susceptibility or resistance to cephalexin. Ceftriaxone S <=1 F Susceptible <=1 , Intermediate >1 , Resistant >=4 Cefepime S <=1 F Susceptible <=2 , Susceptible-Dose Dependent >2 , Resistant >=16 Ertapenem S <=0.5 F Susceptible <=0.5 , Intermediate >.5 , Resistant >1 Meropenem S <=0.25 F Susceptible <=1 , Intermediate >1 , Resistant >2 Ampicillin/Sulbact S 8 F Susceptible <=8 , Intermediate >8 , Resistant >16 Piperacillin/Tazobac S <=4 F Susceptible <16 , Susceptible-Dose Dependent >=16 , Resistant >=32 Gentamicin S <=1 F Susceptible <=2 , Intermediate >2 , Resistant >=8 Tobramycin S <=1 F Susceptible <4 , Intermediate >=4 , Resistant >=8 Trimeth sulfameth S <=20 F Susceptible <=40 , Resistant >40 Ciprofloxacin S <=0.25 F Susceptible <0.5 , Intermediate >=.5 , Resistant >=1 Nitrofurantoin S <=16 F Susceptible <=32 , Intermediate >32 , Resistant >64 Abnormal [facility] Comment on above: Performed By: #### 6 30 #### [facility] CLIA [id number] [address] [place] [address] [place] CNALon 06-08-2023 CNOV Office Visit (UROLAV ) FAHAD SOTELO ([id number]) 1950 M Date Time Provider Department 06/08/23 3:00 PM NURSE [facility] ROSA UROLAV During your visit today, we recorded the following information about you: Kris Venegas RN 06/08/2023 3:31 PM Signed Pt arrives, ambulatory for duncan catheter removal post 06/04/23 office cystoscopy for stricture dilation. Pt admits to increase in bladder spasms, discomfort in shaft of penis and urethra, burning discomfort in penis and bladder area. Intermittent urethral leakage, admits to intermittent small amount of bloody globs ; admits he struggles with regular bowel movements. 18 romanian STRAIT duncan catheter attached to leg bag, draining cloudy yellow urine, dime sized brown clot evident in top of bag. Balloon deflated, duncan catheter removed. Pt strait cathed for UC speciman collection. He will resume ISC. Noted that letter sent to his vendor of choice, [employer]. Pt prefers to use coude tip, will check with provider if to use strait or coude ([employer] order written for strait tip) Pt will await culture results and update on strait or coude for ISC. Kris Venegas RN 06/08/2023 3:38 PM Signed Addended by: KRIS VENEGAS on: 06/08/2023 03:38 PM Modules accepted: Orders Allergies As of Date: 06/08/2023 Noted Allergy Reaction BEE POLLEN 01/30/2014 7 - Swelling BEE STING 01/02/2019 7 - Swelling HAY FEVER (SEASONAL ALLERGIES) 04/12/2021 14 - Other: See Comments Comments: Sneezing. 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 #:[id number] Prescriptions as of 06/08/2023 - Amoxicillin 500 mg tablet TAKE 4 TABLETS BY MOUTH 1 (ONE) HOUR BEFORE procedure then TAKE 2 TABLETS BY MOUTH 6 (SIX) hours after procedure - trospium (SANCTURA) 20 mg tablet Take 1 tablet by mouth once daily. - acetaminophen (TYLENOL) 500 mg tablet Take 2 tablets by mouth every 6 hours as needed for pain. - ezetimibe (ZETIA) 10 mg tablet Take 10 mg by mouth once daily. - aspirin, enteric coated (ASPIRIN, ENTERIC COATED) 81 mg EC tablet Take 1 tablet by mouth twice daily. - metoprolol tartrate, short acting, (LOPRESSOR) 50 mg tablet Take 1 tablet by mouth twice daily. - COMPOUNDED PRESCRIPTION 16 fr catheters - lisinopril (ZESTRIL, PRINIVIL) 20 mg tablet Take 20 mg by mouth once daily. - ascorbic acid, vitamin C, (VITAMIN C) 500 mg tablet Take 1 tablet by mouth once daily. - MAGNESIUM HYDROXIDE (MILK OF MAGNESIA ORAL) Take 1 Bottle by mouth as needed. - isosorbide mononitrate ER (IMDUR) 60 mg 24 hr tablet Take 60 mg by mouth once daily. - cholecalciferol (VITAMIN D3) 1,000 unit tab tablet Take 1,000 Units by mouth once daily. - Multivitamin capsule Take 1 capsule by mouth once daily. - rosuvastatin (CRESTOR) 40 mg tablet Take 40 mg by mouth once daily. Problem List As Of Date 06/08/2023 Noted Resolved Shoulder weakness [R29.898] 03/12/2017 Brachial plexopathy [G54.0] 03/12/2017 Cervical spinal stenosis [M48.02] 03/12/2017 Cervical spondylosis with myelopathy [M47.12] 05/04/2017 Preop testing [Z01.818] 05/04/2017 CAD (coronary artery disease) [I25.10] 02/13/2004 Essential hypertension [I10] Mixed hyperlipidemia [E78.2] Cervical stenosis of spine [M48.02] 05/29/2017 Urge incontinence [N39.41] 06/20/2017 Obesity, Class I, BMI 30-34.9 [E66.9] 10/28/2018 Osteoarthritis of right knee [M17.11] 10/30/2018 Chronic knee pain after total replacement of ri*11/14/2019 History of lumbar fusion [Z98.1] 06/17/2020 Primary osteoarthritis of right hip [M16.11] 06/17/2020 Loose right total knee arthroplasty (HCC) [T84.*06/17/2020 Pre-op evaluation [Z01.818] 04/12/2021 Rotator cuff tear arthropathy of right shoulder*04/12/2021 Visit Notes: >> Kris Venegas RN SunJun 08, 2023 3:18 PM Status: Signed Pt arrives, ambulatory for duncan catheter removal post 06/04/23 office cystoscopy for stricture dilation. Pt admits to increase in bladder spasms, discomfort in shaft of penis and urethra, burning discomfort in penis and bladder area. Intermittent urethral leakage, admits to intermittent small amount of bloody globs ; admits he struggles with regular bowel movements. 18 romanian STRAIT duncan catheter attached to leg bag, draining cloudy yellow urine, dime sized brown clot evident in top of bag. Balloon deflated, duncan catheter removed. Pt strait cathed for UC speciman collection. He will resume ISC. Noted that letter sent to his vendor of choice, [employer]. Pt prefers to use c (more content not included)... Normal [facility] FAHAD SOT[facility] ([id number]) 1950 M Date Time Provider Department 06/08/23 RICHARD, WAHIB UROLAV During your visit today, we recorded the following information about you: Kris Venegas RN 06/08/2023 3:50 PM Signed Pt arrived for nurse visit duncan catheter removal post 06/04/23 office cystoscopy for stricture dilation. He will resume ISC as instructed . Noted that letter was sent to his vendor of choice, [employer]. Letter to [employer] indicated 16 romanian strait tip. Pt prefers to use coude tip. Checking with provider if to use strait or coude ([employer] order written for strait tip) Kris Venegas RN 06/11/2023 3:32 PM Signed Milo Ramos MD You 2 days ago Thank you, patient would use what he is comfortable with. Thank you Milo Ramos MD Phoned pt to inform of response, he states he used to use curved most of the time , but has been using both strait and curved since cystoscopy without any problems Allergies As of Date: 06/08/2023 Noted Allergy Reaction BEE POLLEN 01/30/2014 7 - Swelling BEE STING 01/02/2019 7 - Swelling HAY FEVER (SEASONAL ALLERGIES) 04/12/2021 14 - Other: See Comments Comments: Sneezing. Date Reviewed: 06/08/2023 Reviewed by: Kris Venegas RN - Fully Assessed Prescriptions as of 06/11/2023 - cephALEXin (KEFLEX) 500 mg capsule Take 1 capsule by mouth three times a day for 7 days. - Amoxicillin 500 mg tablet TAKE 4 TABLETS BY MOUTH 1 (ONE) HOUR BEFORE procedure then TAKE 2 TABLETS BY MOUTH 6 (SIX) hours after procedure - trospium (SANCTURA) 20 mg tablet Take 1 tablet by mouth once daily. - acetaminophen (TYLENOL) 500 mg tablet Take 2 tablets by mouth every 6 hours as needed for pain. - ezetimibe (ZETIA) 10 mg tablet Take 10 mg by mouth once daily. - aspirin, enteric coated (ASPIRIN, ENTERIC COATED) 81 mg EC tablet Take 1 tablet by mouth twice daily. - metoprolol tartrate, short acting, (LOPRESSOR) 50 mg tablet Take 1 tablet by mouth twice daily. - COMPOUNDED PRESCRIPTION 16 fr catheters - lisinopril (ZESTRIL, PRINIVIL) 20 mg tablet Take 20 mg by mouth once daily. - ascorbic acid, vitamin C, (VITAMIN C) 500 mg tablet Take 1 tablet by mouth once daily. - MAGNESIUM HYDROXIDE (MILK OF MAGNESIA ORAL) Take 1 Bottle by mouth as needed. - isosorbide mononitrate ER (IMDUR) 60 mg 24 hr tablet Take 60 mg by mouth once daily. - cholecalciferol (VITAMIN D3) 1,000 unit tab tablet Take 1,000 Units by mouth once daily. - Multivitamin capsule Take 1 capsule by mouth once daily. - rosuvastatin (CRESTOR) 40 mg tablet Take 40 mg by mouth once daily. Problem List As Of Date 06/08/2023 Noted Resolved Shoulder weakness [R29.898] 03/12/2017 Brachial plexopathy [G54.0] 03/12/2017 Cervical spinal stenosis [M48.02] 03/12/2017 Cervical spondylosis with myelopathy [M47.12] 05/04/2017 Preop testing [Z01.818] 05/04/2017 CAD (coronary artery disease) [I25.10] 02/13/2004 Essential hypertension [I10] Mixed hyperlipidemia [E78.2] Cervical stenosis of spine [M48.02] 05/29/2017 Urge incontinence [N39.41] 06/20/2017 Obesity, Class I, BMI 30-34.9 [E66.9] 10/28/2018 Osteoarthritis of right knee [M17.11] 10/30/2018 Chronic knee pain after total replacement of ri*11/14/2019 History of lumbar fusion [Z98.1] 06/17/2020 Primary osteoarthritis of right hip [M16.11] 06/17/2020 Loose right total knee arthroplasty (HCC) [T84.*06/17/2020 Pre-op evaluation [Z01.818] 04/12/2021 Rotator cuff tear arthropathy of right shoulder*04/12/2021 Encounter Status:Closed by KRIS VENEGAS on 06/11/23 [facility] Keanu 06-07-2023 NOHELIA Telephone (UROLAV) FAHAD SOTELO ([id number]) 1950 M Date Time Provider Department 06/07/23 RICHARD, WAHIB UROLAV During your visit today, we recorded the following information about you: Aba Perry 06/07/2023 8:41 AM Signed Pt called the office; stated that he has an appt in office tomorrow for catheter removal. Pt stated that he has leaking, a burning sensation, and is feeling the need to urinate. Pt is requesting a phone call at your earliest convenience. Please advise. Aislinn Cordero RN 06/07/2023 11:19 AM Signed Spoke with patient Discussed bladder spasms/leakage NV tomorrow can assess need for straight cath UA. OK for patient to take Tylenol for discomfort. Will provide 16fr. ISC catheter sample for patient to use as he currently only has 14 fr. At home. Pt verbalizes understanding of plan and declines further questions/concerns at this time. Allergies As of Date: 06/07/2023 Noted Allergy Reaction BEE POLLEN 01/30/2014 7 - Swelling BEE STING 01/02/2019 7 - Swelling HAY FEVER (SEASONAL ALLERGIES) 04/12/2021 14 - Other: See Comments Comments: Sneezing. Date Reviewed: 06/04/2023 Reviewed by: Esmer Mock MA - Fully Assessed Prescriptions as of 06/07/2023 - Amoxicillin 500 mg tablet TAKE 4 TABLETS BY MOUTH 1 (ONE) HOUR BEFORE procedure then TAKE 2 TABLETS BY MOUTH 6 (SIX) hours after procedure - trospium (SANCTURA) 20 mg tablet Take 1 tablet by mouth once daily. - acetaminophen (TYLENOL) 500 mg tablet Take 2 tablets by mouth every 6 hours as needed for pain. - ezetimibe (ZETIA) 10 mg tablet Take 10 mg by mouth once daily. - aspirin, enteric coated (ASPIRIN, ENTERIC COATED) 81 mg EC tablet Take 1 tablet by mouth twice daily. - metoprolol tartrate, short acting, (LOPRESSOR) 50 mg tablet Take 1 tablet by mouth twice daily. - COMPOUNDED PRESCRIPTION 16 fr catheters - lisinopril (ZESTRIL, PRINIVIL) 20 mg tablet Take 20 mg by mouth once daily. - ascorbic acid, vitamin C, (VITAMIN C) 500 mg tablet Take 1 tablet by mouth once daily. - MAGNESIUM HYDROXIDE (MILK OF MAGNESIA ORAL) Take 1 Bottle by mouth as needed. - isosorbide mononitrate ER (IMDUR) 60 mg 24 hr tablet Take 60 mg by mouth once daily. - cholecalciferol (VITAMIN D3) 1,000 unit tab tablet Take 1,000 Units by mouth once daily. - Multivitamin capsule Take 1 capsule by mouth once daily. - rosuvastatin (CRESTOR) 40 mg tablet Take 40 mg by mouth once daily. Problem List As Of Date 06/07/2023 Noted Resolved Shoulder weakness [R29.898] 03/12/2017 Brachial plexopathy [G54.0] 03/12/2017 Cervical spinal stenosis [M48.02] 03/12/2017 Cervical spondylosis with myelopathy [M47.12] 05/04/2017 Preop testing [Z01.818] 05/04/2017 CAD (coronary artery disease) [I25.10] 02/13/2004 Essential hypertension [I10] Mixed hyperlipidemia [E78.2] Cervical stenosis of spine [M48.02] 05/29/2017 Urge incontinence [N39.41] 06/20/2017 Obesity, Class I, BMI 30-34.9 [E66.9] 10/28/2018 Osteoarthritis of right knee [M17.11] 10/30/2018 Chronic knee pain after total replacement of ri*11/14/2019 History of lumbar fusion [Z98.1] 06/17/2020 Primary osteoarthritis of right hip [M16.11] 06/17/2020 Loose right total knee arthroplasty (HCC) [T84.*06/17/2020 Pre-op evaluation [Z01.818] 04/12/2021 Rotator cuff tear arthropathy of right shoulder*04/12/2021 Encounter Status:Closed by AISLINN C[facility] Telephone (INTMAL) FAHAD SOTELO ([id number]) 1950 M Date Time Provider Department 06/06/23 MILO RAMOS INTBRISEYDA During your visit today, we recorded the following information about you: Oneyda Blackmon 06/06/2023 8:59 AM Signed Fahad is calling Milo Ramos MD today to request catheters to be sent to [facility]. Please advise. Phone number: [phone] Patient has been identified by name and birthdate. Duration of symptoms: N/A Person calling: self Call patient at: at home [phone] (home) Was an appointment scheduled: No Closing statement: Results or non-symptom based questions: Thank you for calling [facility], your call will be returned within the next business day. Thank you, Shameka Rothman RN 06/06/2023 10:00 AM Signed ISC catheter order sent to [facility]. Ordered for 3 months. 16F straight daily to keep stricture open. Will call to update patient. LEATHA Zayas Ashley, RN 06/06/2023 10:00 AM Signed Returning phone call to patient. Updated patient that catheter order was sent to [facility]. Patient states he's been leaking around catheter. Explained to patient the reasons for this - constipation, bladder spasms, kink in tubing. Patient adjusted securing device d/t pulling. Admits to constipation - on bowel regimen. Scheduled for NV for duncan removal on 06/08/2023 at 3pm. Patient in agreement with plan. Shameka Carrillo RN Allergies As of Date: 06/06/2023 Noted Allergy Reaction BEE POLLEN 01/30/2014 7 - Swelling BEE STING 01/02/2019 7 - Swelling HAY FEVER (SEASONAL ALLERGIES) 04/12/2021 14 - Other: See Comments Comments: Sneezing. Date Reviewed: 06/04/2023 Reviewed by: Esmer Mock MA - Fully Assessed Reason for Visit: Medication Question [4778] Prescriptions as of 06/06/2023 - Amoxicillin 500 mg tablet TAKE 4 TABLETS BY MOUTH 1 (ONE) HOUR BEFORE procedure then TAKE 2 TABLETS BY MOUTH 6 (SIX) hours after procedure - trospium (SANCTURA) 20 mg tablet Take 1 tablet by mouth once daily. - acetaminophen (TYLENOL) 500 mg tablet Take 2 tablets by mouth every 6 hours as needed for pain. - ezetimibe (ZETIA) 10 mg tablet Take 10 mg by mouth once daily. - aspirin, enteric coated (ASPIRIN, ENTERIC COATED) 81 mg EC tablet Take 1 tablet by mouth twice daily. - metoprolol tartrate, short acting, (LOPRESSOR) 50 mg tablet Take 1 tablet by mouth twice daily. - COMPOUNDED PRESCRIPTION 16 fr catheters - lisinopril (ZESTRIL, PRINIVIL) 20 mg tablet Take 20 mg by mouth once daily. - ascorbic acid, vitamin C, (VITAMIN C) 500 mg tablet Take 1 tablet by mouth once daily. - MAGNESIUM HYDROXIDE (MILK OF MAGNESIA ORAL) Take 1 Bottle by mouth as needed. - isosorbide mononitrate ER (IMDUR) 60 mg 24 hr tablet Take 60 mg by mouth once daily. - cholecalciferol (VITAMIN D3) 1,000 unit tab tablet Take 1,000 Units by mouth once daily. - Multivitamin capsule Take 1 capsule by mouth once daily. - rosuvastatin (CRESTOR) 40 mg tablet Take 40 mg by mouth once daily. 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] 03/12/2017 Cervical spinal stenosis [M48.02] 03/12/2017 Cervical spondylosis with myelopathy [M47.12] 05/04/2017 Preop testing [Z01.818] 05/04/2017 CAD (coronary artery disease) [I25.10] 02/13/2004 Essential hypertension [I10] Mixed hyperlipidemia [E78.2] Cervical stenosis of spine [M48.02] 05/29/2017 Urge incontinence [N39.41] 06/20/2017 Obesity, Class I, BMI 30-34.9 [E66.9] 10/28/2018 Osteoarthritis of right knee [M17.11] 10/30/2018 Chronic knee pain after total replacement of ri*11/14/2019 History of lumbar fusion [Z98.1] 06/17/2020 Primary osteoarthritis of right hip [M16.11] 06/17/2020 Loose right total knee arthroplasty (HCC) [T84.*06/17/2020 Pre-op evaluation [Z01.818] 04/12/2021 Rotator cuff tear arthropathy of right shoulder*04/12/2021 Letter Text Encounter Status:Closed by SHAMEKA CARRILLO on 06/06/23 Normal [facility] CNOVon 06-04-2023 CNOV Office Visit (UROLAV ) FAHAD SOTELO ([id number]) 1950 Date Time Provider Department 06/04/23 11:30 AM MILO RAMOS UROLAV During your visit today, we recorded the following information about you: Temperature Pulse Blood pressure 97.3 degrees 61/minute 120/63 Milo Ramos MD 06/04/2023 12:35 PM Signed Procedure: Cystoscopy Surgeon: Milo Ramos MD Procedure: Indications of the procedure, risks and benefits discussed with the patient . Consent signed. Patient taken to the cystoscopy procedure room. Patient prepped and draped in the usual sterile fashion. Time out was performed, name, date of , patient was able to describe the procedure. Two percent lidocaine gel injected into the urethra.. Using a 16 Fr. Flexible cystoscope, urethra was examined , showing two tight areas of stricture in the urethra the most distal area at the fossa navicularis, this was passed with the scope with difficulty. The proximal stricture was too tight to pass the scope. A 0.038 Solo flex wire passed through the scope and into the urinary bladder, dilation with amplatz urethral dilators from size 14 fr to 22 Fr. The scope was introduced into the urinary bladder revealing trabeculated urinary bladder. An 18 fr agdaagux tip catheter passed over the guide wire for 5 days. Findings: two tight areas of the urethra noted. Trabeculated urinary bladder. Discussed referring to Dr. Louie Salomon to discuss further management of the urethral stricture Patient will resume cathing with 16 Fr straight catheter once daily to keep the area of the stricture patent. MD Mauricio Prescott Maranda, MA 06/04/2023 11:33 AM Signed After your Cystoscopy with Dr. Ramos You have undergone a cystoscopy. Your doctor has inserted a telescope into your urinary bladder through your urethra to view the inside of your bladder. WHAT TO EXPECT: Possible burning during urination and/or blood-tinged urine. WHAT TO DO: Resume normal activity and medications. Drink 6-8 glasses of fluid each day for 3 days to help flush your urinary system. MEDICATIONS: You were given a preventative antibiotic prior to the procedure. WHEN TO CALL THE DOCTOR: IF you have a fever over 100 degrees Fahrenheit IF you are unable to urinate IF blood clots form in your urine If your urine becomes very bloody and does not clear with drinking extra fluids. Please call the [facility] office at [phone] Sunday-Sunday 8 am - 5 pm with any questions you may have and ask for the Urology nurses. If you call after 5 PM or on the weekends, please call [phone] Esmer Mock MA 06/04/2023 12:35 PM Signed PROCEDURE NURSE ASSESSMENT Patient ID with two(2)identifiers verified by: Esmer Mock MA Procedure Indication: Cystoscopy June 04, 2023, Time In: 11:30am Consent signed:Yes Back Office UA obtained: yes Antibiotic given: Yes Heart valve replacement: No Joint replacement: Yes, but more then 2 years ago (Please inform provider if either above replacements were within the last 2 years) Patient Prep: Betadine Scrub to perineum and placement of Sterile Drape. COMPLETED UNIVERSAL PROTOCOL / SAFETY CHECKLIST Procedure to be performed: Cystoscopy Sign in Communication: Completed Time Out: Team Confirms the Correct Patient, Correct Procedure, Correct Site and Site Marking, Correct Position (if applicable) Sign Out Discussion: Completed Instruction sheet given and reviewed and patient verbalizes understanding: yes DIAZ Dykes Maranda, MA 06/04/2023 12:35 PM Signed UNIVERSAL PROTOCOL / SAFETY CHECKLIST Procedure to be Performed: cystoscopy Sign In: A Moment of CARE was completed. Personnel directly involved with the procedure wore the appropriate PPE (Personal Protective Equipment). No special equipment needed. Patient/Surrogate Stated/Verified: PATIENT VERIFIED(optional for EMERGENT procedures): Patient name, Date of , Relevant allergies, and The intended procedure Time Out Communication: Intended patient and procedure match the source documents. Consent documented and matches the intended procedure. Relevant labs, photos, and/or imaging studies have been reviewed. Correct side/site marked and visible. Medications required for procedure verified. Fire risk assessed and interventions discussed. No implant(s) inserted. Sign Out: SIGN OUT (optional for EMERGENT procedures): No specimen collected. All instruments, equipment, possible retained foreign bodies accounted for. Post-procedure follow-up management communicated and Plan of Care Visit completed when applicable. DIAZ Dykes MD Referring Provider: MILO RAMOS [[id number]] Allergies As of Date: 06/04/2023 Noted Allergy Reaction BEE POLLEN 01/30/2014 7 - Swelling BEE STING 01/02/2019 7 - Swelling HAY FEVER (SEASO (more content not included)... Normal [facility] UA DIP, URINE (POC)on 2023 BILIRUBIN UA (POCT) Negative Negative Raj [facility] CLARITY UA (POCT) Clear [facility] COLOR UA (POCT) Yellow [facility] GLUCOSE UA (POCT) Negative Negative mg/dL [facility] Hemoglobin Ql (U) Negative Negative [facility] Interpretation and review of laboratory results Abnormal [facility] KETONE UA (POCT) Negative Negative mg/dL [facility] LEUKOCYTES UA (POCT) Small Abnormal Negative [facility] NITRITE UA (POCT) Negative Negative [facility] PH UA (POCT) 6.0 4.5 - 8.0 [facility] Protein Ql (U) Negative Negative mg/dL [facility] SPECIFIC GRAVITY UA (POCT) 1.025 1.005 - 1.030 [facility] UROBILINOGEN UA (POCT) 0.2 Normal E.U./dL [facility] Location:[facility], [address] [facility] [place], [place], [address] [place] [address] POINT OF CARE [facility] XR ORBITS COMPLETE 4+ VIEWSo n 05-23-2023 XR ORBITS COMPLETE 4+ VIEWS Examination plain films of the orbits. HISTORY: Fell. Eye pain and bruising. COMPARISON: None TECHNIQUE: 4 views of the orbits are submitted. FINDINGS: The visualized paranasal sinuses are well aerated. No significant soft tissue line or air-fluid levels. There is a nasal fracture. No other focal bony abnormalities. IMPRESSION: THERE IS A NASAL FRACTURE. IF SIGNS AND SYMPTOMS PERSIST CONSIDER CT SCAN ORBITS OR MAXILLOFACIAL CT TO FURTHER EVALUATE ELECTRONICALLY SIGNED BY: Daniel Amado MD Normal Not Available CNOVon 05-15-2023 CNOV Office Visit (UROLAV ) FAHAD SOTELO ([id number]) 1950 M Date Time Provider Department 05/15/23 3:40 PM NITHYA HORNER UROLAV During your visit today, we recorded the following information about you: Rigo Martin LPN 05/15/2023 4:32 PM Signed Patient urinated down stairs PVR = 0 ml Via bladder scan. Nithya Horner PA-C 05/15/2023 4:32 PM Signed [facility] HISTORY OF PRESENT ILLNESS: Fahad Sotelo is a 72 year old male here today for a follow up regarding urethral stricture. Cystoscopy on 05/31/[address] Ramos revealed Two urethral strictures , noted, trabeculated urinary bladder. Urethral dilation done at this visit. Patient self catheterizes two times a day; morning and night to help keep stricture patent. Was unable to insert 16 fr coude, downsized to 14 fr coude and is having no difficulties. Despite catheterization; still waking up 5-6 times at night; always been like this . Reports intermittency and weak stream; will have to hold his breath after intermittency occurs to fully emptying. Reports he is urinating approximately every 2-3 hours during the day; nocturia as stated above. GENERAL REVIEW OF SYSTEMS: GI:SEE HPI GENITOURINARY:SEE HPI HISTORIES: Present Medications: Amoxicillin 500 mg tablet Take 4 tablets 1 hour before procedure and 2 tablets 6 hours after procedure trospium (SANCTURA) 20 mg tablet Take 1 tablet by mouth once daily. acetaminophen (TYLENOL) 500 mg tablet Take 2 tablets by mouth every 6 hours as needed for pain. ezetimibe (ZETIA) 10 mg tablet Take 10 mg by mouth once daily. (Patient not taking: No sig reported) aspirin, enteric coated (ASPIRIN, ENTERIC COATED) 81 mg EC tablet Take 1 tablet by mouth twice daily. metoprolol tartrate, short acting, (LOPRESSOR) 50 mg tablet Take 1 tablet by mouth twice daily. COMPOUNDED PRESCRIPTION 16 fr catheters lisinopril (ZESTRIL, PRINIVIL) 20 mg tablet Take 20 mg by mouth once daily. ascorbic acid, vitamin C, (VITAMIN C) 500 mg tablet Take 1 tablet by mouth once daily. MAGNESIUM HYDROXIDE (MILK OF MAGNESIA ORAL) Take 1 Bottle by mouth as needed. isosorbide mononitrate ER (IMDUR) 60 mg 24 hr tablet Take 60 mg by mouth once daily. cholecalciferol (VITAMIN D3) 1,000 unit tab tablet Take 1,000 Units by mouth once daily. Multivitamin capsule Take 1 capsule by mouth once daily. rosuvastatin (CRESTOR) 40 mg tablet Take 40 mg by mouth once daily. No current facility-administered medications for this visit. Past Family History: FAMILY HISTORY Problem Relation Age of Onset Coronary Artery Disease Mother Stroke Mother 65 Diabetes Sister Diabetes Brother Anesthesia Problems No Family History Past Medical History: PAST MEDICAL HISTORY Diagnosis Date CAD (coronary artery disease) 2004 [place] in 1997. Had a stent placed in 2008 c/b coronary artery dissection and that lead to a CABG x1 in 2008 Former smoker quit 1997 Hyperlipidemia Hypertension Intermittent self-catheterization of bladder Urge incontinence of urine Past Surgical History: PAST SURGICAL HISTORY Procedure Laterality Date ARTHRP KNE CONDYLEANDPLATU MEDIALANDLAT COMPARTMENTS 10/30/2018 right CABG (1) VEIN GRAFT AND ARTERIAL GRAFT 2008 coronary dissection during stent placement CHEMODNRVTJ [facility] INNERVATED FACIAL NRV UNIL CYSTO.PANENDO 11/24/2021 Dr. Dye CYSTO.PANENDO 05/31/2022 CYSTOSCOPY 03/29/2017 Dr. Fady Dye - [facility] LEFT HEART CATH,PERCUTANEOUS 05/11/2003 Cardiac cath, L heart LEFT HEART CATH,PERCUTANEOUS 12/08/2009 Cardiac cath, L heart LEFT HEART CATH,PERCUTANEOUS 03/15/2011 Cardiac cath, L heart with Stent placement [facility] OFF PUMP PAST SURGICAL HISTORY OF Lumbar spine surgery. PAST SURGICAL HISTORY OF 05/29/2017 cervical spine surgery with fusion ROTATOR CUFF REPAIR Left 2016 TRURL ELECTROSURG RESCJ PROSTATE BLEED COMPLETE URODYNAMICS 03/29/2017 Procedure done by Nava Back LPN, [facility] Past Social History: Social History Tobacco Use Smoking status: Former Packs/day: 1.25 Years: 10.00 Additional pack years: 0.00 Total pack years: 12.50 Types: Cigarettes Quit date: 11/13/1997 Years since quittin.5 Smokeless tobacco: Never Vaping Use Vaping Use: Never used Substance Use Topics Alcohol use: Yes Comment: 2 cans of beer per year. Drug use: No Comment: denies tx for drug/alcohol abuse in the past. PHYSICAL EXAM: VITAL SIGNS:There were no vitals taken for this visit. CONSTITUTIONAL: appears healthy, in no acute distress. RESPIRATORY: unlabored on room air ABDOMEN: soft, non tender, no masses or organomegaly BACK: negative CVA tenderness SKIN: no rashes or lesions noted Tests Reviewed: PVR: 0 ml IMPRESSION: 1. Stricture of ur (more content not included)... Normal [facility] XR SHOULDER ORTHO 4V AP/TRUE AP/LAT/OUTLET LEFTon 06-23-2022 [facility] XR Shoulder - left 4 Viewson 06-23-2022 IMPRESSION: Postoperative and degenerative changes, as described. Reconnaissance Crewmember: DEEPIKA Transcribe Date/Time: Jun 23 2022 4:32P Dictated by : SILVA RILEY MD This examination was interpreted and the report reviewed and electronically signed by: SILVA RILEY MD on Jun 23 2022 4:33PM [facility] DIVISION OF RADIOLOGY * * *Final Report* * * DATE OF EXAM: Jun 23 2022 1:33PM LZX 5604 - XR SHLDR 4V AP/LUCITA/LAT/OUTLET LT / PROCEDURE REASON: Left shoulder pain, unspecified chronicity * * * * Physician Interpretation * * * * EXAMINATION / TECHNIQUE: XR SHLDR 4V AP/LUCITA/LAT/OUTLET LT HISTORY: pain lt shoulder,limited range of motion Left shoulder pain, unspecified chronicity COMPARISON: RESULT: Mild glenohumeral osteoarthritis with small osteophytes. Status post rotator cuff repair. No acute fracture or dislocation. No malalignment. Mild hypertrophic degenerative changes at the acromioclavicular joint. Glenohumeral joint space is maintained. DIVISION OF RADIOLOGY Provider, Lola Karlie [facility] - 06/23/2022 * * *Final Report* * * DATE OF EXAM: Jun 23 2022 1:33PM LZX 5604 - XR SHLDR 4V AP/LUCITA/LAT/OUTLET LT / PROCEDURE REASON: Left shoulder pain, unspecified chronicity * * * * Physician Interpretation * * * * EXAMINATION / TECHNIQUE: XR SHLDR 4V AP/LUCITA/LAT/OUTLET LT HISTORY: pain lt shoulder,limited range of motion Left shoulder pain, unspecified chronicity COMPARISON: RESULT: Mild glenohumeral osteoarthritis with small osteophytes. Status post rotator cuff repair. No acute fracture or dislocation. No malalignment. Mild hypertrophic degenerative changes at the acromioclavicular joint. Glenohumeral joint space is maintained. IMPRESSION IMPRESSION: Postoperative and degenerative changes, as described. Reconnaissance Crewmember: DEEPIKA Transcribe Date/Time: Jun 23 2022 4:32P Dictated by : SILVA RILEY MD This examination was interpreted and the report reviewed and electronically signed by: SILVA RILEY MD on Jun 23 2022 4:33PM EST [facility] Radiology Study observation (narrative) [facility] XR Shoulder - left 4 ViewsOr dered By: [facility] Provider on 06-23-2022 [facility] ECHOCARDIO M/2D COMPLETEon 0 06-07-2022 ECHOCARDIO M/2D COMPLETE Patient: FAHAD SOTELO Exam Date: 06/07/2022 : 1950 Gender:M Ordering : DR TAMANNA JOSHUA M.D. Admission #: [id number] Family : DR STANTON VELASCO M.D. Order #: [id number] CLICK HERE TO VIEW EXAM ECHOCARDIOGRAM REPORT PROCEDURE: CARDIO PULMONARY ECHOCARDIO M/2D COMP INDICATIONS: Coronary artery disease, CABG, hypertension COMPARISON: None. DESCRIPTION: COMPLETE ECHOCARDIOGRAM Real-time transthoracic echocardiography with 2D, M-mode, spectral and color flow Doppler performed. QUALITY: Technical quality was good. LEFT VENTRICLE: Normal chamber size. Normal left ventricular wall thickness. LV EF: Normal left ventricular ejection fraction, (>55%). DIASTOLIC: Normal diastolic function. ATRIAL SEPTUM: Visually appears intact. LEFT ATRIUM: Normal chamber size. RIGHT ATRIUM: Normal chamber size. RIGHT VENTRICLE: Normal chamber size. Normal systolic function. TRICUSPID VALVE: Normal mobility and thickness. No stenosis with no regurgitation. MITRAL VALVE: Normal mobility and thickness. No evidence of mitral valve stenosis. No mitral regurgitation. AORTIC VALVE: Normal trileaflet appearance. Mildly calcified aortic valve. Normal leaflet mobility. No evidence of aortic valve stenosis. No aortic regurgitation. AORTIC ROOT: Normal diameter and appearance. PULMONIC VALVE: Normal thickness and mobility. No stenosis. No regurgitation. PERICARDIUM: Anterior free space; trivial effusion versus fat pad. IVC: Collapses with inspirations. CONCLUSION: Global left ventricular systolic function is normal; visually estimated ejection fraction is 60 to 65%. Normal diastolic function. The right ventricle is normal in size and systolic function. No significant valvular abnormalities. Anterior free space; trivial effusion versus fat pad. Adult Echocardiography Procedure Report Left Ventricle LVEDD (3.7 - 5.6 cm): 4.69 cm LVESD (2.2 - 4.0 cm): 2.76 cm LVIVS thickness (0.6 - 1.2 cm): 1.01 cm LVPW thickness (0.5 - 1.0 cm): 0.98 cm e': 0.12 m/s E - e': 4.77 LVOT Max Gradient: 3.82 mm[Hg] Peak Velocity (LVOT): 0.98 m/s LVOT Diameter 2.56 cm Left Ventricular Ejection Fraction: 72.06 %, 72.06 % Left Atrium LA Volume Index (2D A2C): 58.76 ml, 58.76 ml Left Atrium Systolic Dimension: 4.39 cm Mitral Valve MV E to A Ratio: 0.68 Mitral Valve A-Wave Peak Velocity: 0.81 m/s Mitral Valve E-Wave Peak Velocity: 0.56 m/s Right Ventricle Aorta AO Root Diam: 3.93 cm Aortic Valve AoV Area (Peak Gallo): 4.66 cm2, 4.66 cm2 Peak Velocity(Antegrade Flow): 1.08 m/s Peak Gradient(Antegrade Flow): 4.68 mm[Hg] Tricuspid Valve Peak Velocity: 0.41 m/s Pulmonic Valve Peak Velocity: 1.27 m/s, 0.90 m/s Peak Gradient: 6.45 mm[Hg], 3.26 mm[Hg] Right Atrium Right Atrium Systolic Pressure: 62.18 ml, 64.89 ml, 59.48 ml Dictated by: Tamanna Joshua M.D. on 06/07/2022 at 15:48 Approved by: Tamanna Joshua M.D. on 06/07/2022 at 15:50 Normal [facility] UA DIP, URINE (POC)on 2022 BILIRUBIN UA (POCT) Negative Negative [facility] CLARITY UA (POCT) Clear [facility] COLOR UA (POCT) Yellow [facility] GLUCOSE UA (POCT) Negative Negative mg/dL [facility] HEMOGLOBIN/BLOOD UA (POCT) Negative Negative [facility] KETONE UA (POCT) Negative Negative mg/dL [facility] LEUKOCYTES UA (POCT) Negative Negative [facility] NITRITE UA (POCT) Negative Negative [facility] PH UA (POCT) 5.5 4.5 - 8.0 [facility] Protein Ql (U) Negative Negative mg/dL [facility] SPECIFIC GRAVITY UA (POCT) <=1.005 Abnormal 1.005 - 1.030 [facility] UROBILINOGEN UA (POCT) 0.2 E.U./dL Normal E.U./dL [facility] CREATININEon 05-19-2022 Creatinine [Mass/Vol] 0.92 mg/dL Normal 0.70-1.30 [facility] Comment on above: Performed By: #### C ERMA #### [facility] [address] [place] [address] Dr. Joey Montalvo EGFR-AF MONTSERRATIAN >60 Normal >=60 [facility] Comment on above: Performed By: #### C ERMA #### [facility] [address] [address] [address] Joey Montalvo EGFR-NON AF MONTSERRATIAN >60 Normal >=60 [facility] Comment on above: Performed By: #### C ERMA #### [facility] [address] [place] [address] CHEST W CONon 05-19-2022 CT CHEST W CON EXAMINATION: CT CHES T W CON HISTORY: Solitary nodule of lung ; left lung nodule seen on shoulder x-ray COMPARISON: XR shoulder left 04/14/2022 TECHNIQUE: Multi-planar CT images were created with IV contrast. Axial, Coronal, and Sagittal images. Dose reduction techniques were achieved by using automated exposure control and/or adjustment of mA and/or kV according to patient size and/or use of iterative reconstruction technique. FINDINGS: LUNGS: Numerous 3-5 mm nodules scattered within the lungs; some calcified some noncalcified. No acute infiltrates or significant chronic interstitial changes. PLEURA: No mass, effusion, or pneumothorax. VASCULATURE: No abnormality. RAVI: No mass or adenopathy. MEDIASTINUM: No mass or adenopathy. CARDIAC: No enlargement, pericardial thickening, or significant calcification. AORTA: No aneurysm or dissection. CHEST WALL: No mass or axillary adenopathy. BONES: Multiple old, healed right rib fractures. LIMITED ABDOMEN: No suspicious findings Limited images of the upper abdomen. OTHER: Negative. IMPRESSION: 1. Numerous small, sub-5 mm nodules scattered within the lungs with some calcified some noncalcified; nonspecific but most likely representing chronic granulomas. Consider follow-up imaging in one year to document stability. Electronically authenticated by: GERSON AMADO Date: 2022-05-19 11:14 Normal [facility] XR HIP RT 2 3V WO PELVISon 0 04-15-2022 XR HIP RT 2 3V WO PELVIS EXAM: XR HIP RT 2 3V WO PELVIS, XR SHOULDER LT 2V or > HISTORY: Contracture of right hip joint Pain in the right shoulder. COMPARISON: None. TECHNIQUE/FINDINGS: Right hip: AP and lateral views of the right hip were obtained. There is mild joint space narrowing with marginal spurring at the right hip joint. Osteopenia is present. Osteitis pubis is noted. Left shoulder: There is severe osteoarthritis at the left acromioclavicular joint. The humeral head is high riding. Evidence of prior surgery at the left greater tubercle. The visualized left lung shows a possible spiculated nodule in the left suprahilar region measuring 1.4 cm IMPRESSION: Left shoulder: 1. A questionable spiculated nodule in the left suprahilar lung. Further evaluation with CT chest is recommended. 2. High riding left humeral head is seen. This finding is concerning for rotator cuff tendinopathy/tear. 3. Severe left acromioclavicular joint osteoarthritis. 4. Postoperative changes. Right hip: Moderate right hip joint osteoarthritis. Osteitis pubis. Osteopenia. Electronically authenticated by: CARMEN BURGOS Date: 2022-04-14 23:20 Normal [facility] CULTURE URINEon 03-25-2022 CULTURE URINE Isolate 1 Escherichia coli >100,000 cfu/mL of ORGANISM 1 Escherichia coli ANTIBIOTIC M.I.C RX STATUS Ampicillin 16 I F Ampicillin/Sulbactam 4 S F Piperacillin/Tazobacta m <=4 S F Cefazolin <=4 S F Ceftazidime <=1 S F Ceftriaxone <=1 S F Ertapenem <=0.5 S F Imipenem <=0.25 S F Amikacin <=2 S F Gentamicin <=1 S F Tobramycin <=1 S F Ciprofloxacin <=0.25 S F Levofloxacin <=0.12 S F Nitrofurantoin <=16 S F Trimethoprim/Sulfameth oxazole <=20 S F Normal [facility] Comment on above: Performed By: #### U RCX ####[facility] [address] [place], [place] [address]Dr. Joey Montalvo CBC AUTO DIFFon 03-23-2022 BASO # 0.1 103/ul Normal 0.0-0.1 [facility] Comment on above: Performed By: #### C BC ####[facility] [address] [place], [place] [address]Dr. Joey Montalvo Basophils/100 WBC (Bld) 0.7 % Normal 0.2-2.0 [facility] Comment on above: Performed By: #### C BC ####[facility] If[address] [place], [place] [address]Dr. Joey Montalvo EO # 0.1 103/ul Normal 0.0-0.7 [facility] Comment on above: Performed By: #### C BC ####[facility] G[address] [place], [place] [address]Dr. Joey Montalvo Eosinophils/100 WBC (Bld) 1.2 % Normal 0.9-7.0 [facility] Comment on above: Performed By: #### C BC ####[facility] Vx[address] [place], [place] [address]Dr. Joey Montalvo Erythrocyte distribution width (RBC) [Ratio] 12.4 % Normal 11.0-15.0 [facility] Comment on above: Performed By: #### C BC ####[facility] [address] [address]Dr. Joey Montalvo Hematocrit (Bld) [Volume fraction] 45.2 % Normal 42.0-54.0 [facility] Comment on above: Performed By: #### C BC ####[facility] [address] [address]Dr. Joey Montalvo Hemoglobin (Bld) [Mass/Vol] 15.5 g/dL Normal 14.0-18.0 [facility] Comment on above: Performed By: #### C BC ####[facility] [address] [address]Dr. Joey Montalvo IG # 0.05 10e3/ul Critically high 0.00-0.03 [facility] Comment on above: Performed By: #### C BC ####[facility] [address] [place], [place] [address]Dr. Joey Montalvo IG % 0.7 % Critically high 0.0-0.5 [facility] Comment on above: Performed By: #### C BC ####[facility] [address] [place], [place] [address]Dr. Joey Montalvo LYMPH # 2.0 103/ul Normal 1.2-3.8 [facility] Comment on above: Performed By: #### C BC ####[facility] [address] [place], [place] [address]DrUna Joey Selvin Lymphocytes/100 WBC (Bld) 29.0 % Normal 20.5-60.0 [facility] Comment on above: Performed By: #### C BC ####[facility] [address] [address]Dr. Joey Montalvo MANUAL DIFF REQ NO Normal [facility] Comment on above: Performed By: #### C BC ####[facility] [address] [place], [place] [address]DrUna Joey Selvin MCH (RBC) [Entitic mass] 31.0 pg Normal 25.9-34.0 [facility] Comment on above: Performed By: #### C BC ####[facility] [address] [address]Dr. Joey Selvin MCHC (RBC) [Mass/Vol] 34.3 g/dL Normal 29.9-35.2 [facility] Comment on above: Performed By: #### C BC ####[facility] [address] [address]Dr. Joey Montalvo MCV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 06-07-2021 pH (U) 8.5 [pH] 5.0-9.0 [facility] XR Shoulder - right 3 Viewso n 05-24-2021 IMPRESSION: Intact shoulder arthroplasty. Reconnaissance Crewmember: DEEPIKA Transcribe Date/Time: May 24 2021 10:14A Dictated by : RUBI RODRIGUEZ MD This examination was interpreted and the report reviewed and electronically signed by: RUBI RODRIGUEZ MD on May 24 2021 10:14AM EST [facility]_DO_NOT_USE _DIVISION OF RADIOLOGY * * *Final Report* * * DATE OF EXAM: May 24 2021 9:59AM LZX 5253 - XR SHLDR >/=3V AP/LUCITA AP/OTHR RT / PROCEDURE REASON: Nontraumatic complete tear of right rotator cuff * * * * Physician Interpretation * * * * EXAMINATION: XR SHLDR >/=3V AP/LUCITA AP/OTHR RT HISTORY: right shoulder replacement Nontraumatic complete tear of right rotator cuff . TECHNIQUE: XR SHLDR >/=3V AP/LUCITA AP/OTHR RT Laterality: RIGHT Number of different views (projections): 3 M: XB_1 COMPARISON: 05/02/2021 RESULT: Right reverse shoulder arthroplasty in place appears intact and without loosening. Interval near complete resolution of postoperative soft tissue gas. No acute fracture or dislocation. There are no laura erosions. [facility]_DO_NOT_USE _DIVISION OF RADIOLOGY [facility] * * *Final Report* * * DATE OF EXAM: May 24 2021 9:59AM LZX 5253 - XR SHLDR >/=3V AP/LUCITA AP/OTHR RT / PROCEDURE REASON: Nontraumatic complete tear of right rotator cuff * * * * Physician Interpretation * * * * EXAMINATION: XR SHLDR >/=3V AP/LUCITA AP/OTHR RT HISTORY: right shoulder replacement Nontraumatic complete tear of right rotator cuff . TECHNIQUE: XR SHLDR >/=3V AP/LUCITA AP/OTHR RT Laterality: RIGHT Number of different views (projections): 3 M: XB_1 COMPARISON: 05/02/2021 RESULT: Right reverse shoulder arthroplasty in place appears intact and without loosening. Interval near complete resolution of postoperative soft tissue gas. No acute fracture or dislocation. There are no laura erosions. IMPRESSION IMPRESSION: Intact shoulder arthroplasty. Reconnaissance Crewmember: PSCB Transcribe Date/Time: May 24 2021 10:14A Dictated by : RUBI RODRIGUEZ MD This examination was interpreted and the report reviewed and electronically signed by: RUBI RODRIGUEZ MD on May 24 2021 10:14AM EST [facility] Radiology Study observation (narrative) [facility] XR Shoulder - right 3 ViewsO rdered By: Ccf Provider on 05-24-2021 [facility] SARS-CoV-2 RNA Resp Ql BASSAM+p robeon 05-04-2021 SARS-CoV-2 (COVID-19) RNA BASSAM+probe Ql (Resp) COVID 19 RESULT: SARS-CoV-2 (Agent of COVID-19) Not Detected by RT-PCR or equivalent method. This test has been authorized by FDA under an Emergency Use Authorization (EUA). Normal [facility] Comment on above: Performed By: #### 9 4500-6 ####[facility] LABORATORYCLIA [id number] [facility] [place] [address] [facility] HNO ID: [id number] Author: NICKIE Garay Service: Orthopaedic Surgery Author Type: Physician Check Processing Clerk Type: Discharge Summary Filed: 05/04/2021 11:28 AM Note Text: Attestation signed by eKv Ferrell MD at 05/04/2021 12:58 PM I have personally performed face to face diagnostic evaluation on this patient. I have examined the patient and reviewed radiographic studies and agree with plan as outlined above. Kev Ferrell MD May 04, 2021 12:58 PM DISCHARGE SUMMARY Patient Name: Fahad Sotelo : 1950 ADMISSION DATE: 05/02/2021 DISCHARGE DATE: 05/04/2021 Attending Physician: Kev Ferrell MD Primary Diagnosis: Nontraumatic complete tear of right rotator cuff [M75.121] Rotator cuff arthropathy of right shoulder [M12.811] Arthritis of shoulder [M19.019] Operations During Hospitalization: Procedure(s) (LRB): REVERSE (Right) Procedures During Hospitalization: No procedures performed Hospital Course: Fahad is a 70 year old male complaining of right Shoulder pain not responsive to a comprehensive course of conservative treatment. Right shoulder total reverse arthroplasty was proposed and the patient wishes to proceed and was medically cleared prior to the procedure. Patient underwent a Right shoulder total reverse arthroplasty and was transferred to the PACU in stable condition, He was then admitted to the hospital. Post operatively He did well. Post-operative HgB was stable and within acceptable range and remained there throughout the hospital stay not requiring transfusion. Wound was without sign of infection. He was able to actively participate in a physical and occupational therapy program for gait training and mobilization. Due to the operative findings and procedure performed which is consistent with a major orthopedic procedure, the postoperative analgesia will exceed the allowable morphine equivalent dose. PHYSICAL EXAM: General Appearance: Well appearing, alert, in no acute distress, well-hydrated, well nourished.. Lungs: Lungs clear to auscultation. No wheezing, rhonchi, rales.. Heart: RRR without murmur, gallop, or rubs. No ectopy. Right Upper Extremity: Arm placed in sling at position of comfort. Strong radial pulse, no sensory/motor deficits noted. Cap refill <2 sec, strong children's court magistrate, able to flex/extend digits/wrist. Surgical dressing in place, no shadowing or surrounding edema/erythema. Peripheral pain catheter in place to shoulder. Patient Condition at Discharge: Stable Discharge Disposition: Acute Rehabilitation Facility DISCHARGE MEDICATION: Current Discharge Medication List START taking these medications acetaminophen (TYLENOL) 1,000 mg Take 1,000 mg by mouth every 6 hours as needed for pain. docusate sodium (COLACE) 100 mg Take 100 mg by mouth twice daily as needed for constipation. Qty: 30 capsule Refills: 0 oxyCODONE IR (ROXICODONE) 5 mg immediate release tablet Take 1-2 tablets by mouth every 4-6 hours as needed for pain Qty: 50 tablet Refills: 0 Associated Diagnoses:Post-op pain CONTINUE these medications which have NOT CHANGED ezetimibe (ZETIA) 10 mg Take 10 mg by mouth once daily. Amoxicillin 500 mg tablet Take 4 tablets 1 hour before procedure and 2 tablets 6 hours after procedure Qty: 6 tablet Refills: 3 aspirin, enteric coated (ASPIRIN, ENTERIC COATED) 81 mg Take 81 mg by mouth twice daily. Qty: 84 tablet Refills: 0 metoprolol tartrate (short acting) (LOPRESSOR) 50 mg Take 50 mg by mouth twice daily. Associated Diagnoses:Coronary artery disease involving yocha dehe coronary artery of yocha dehe heart without angina pectoris; Essential hypertension; Hyperlipidemia, unspecified hyperlipidemia type COMPOUNDED PRESCRIPTION 16 fr catheters Qty: 30 Device Refills: 11 lisinopril (ZESTRIL, PRINIVIL) 20 mg Take 20 mg by mouth once daily. Refills: 3 ascorbic acid (vitamin C) (VITAMIN C) 500 mg Take 500 mg by mouth once daily. MAGNESIUM HYDROXIDE (MILK OF MAGNESIA ORAL) 1 Bottle Take 1 Bottle by mouth once daily. isosorbide mononitrate ER (IMDUR) 60 mg Take 60 mg by mouth once daily. cholecalciferol (VITAMIN D3) 1,000 Units Take 1,000 Units by mouth once daily. Multivitamin 1 capsule Take 1 capsule by mouth once daily. rosuvastatin (CRESTOR) 40 mg Take 40 mg by mouth once daily. Future Appointments: Appointments for Next 60 Days Date Time Provider Location Dept Phone 05/24/2021 9:30 AM NEHEMIAH GILBERT [phone] 06/14/2021 9:15 AM KEV FERRELL [phone] SIGNATURE: NICKIE Garay PATIENT NAME: Fahad Sotelo DATE: 05/04/21 TIME: 11:25 AM [facility] NURSING PROGon 05-03-2021 NURSING PROG HNO ID: [id number] Author: Mary Benoit RN Service: Nursing Author Type: Registered Nurse Type: Nursing Progress Note Filed: 05/03/2021 4:10 PM Note Text: Nursing Progress Note Patient Name: Fahad Sotelo Patient [place] [address] [address] __ Daily Note: Page sent to the surgical pager [phone]. To update on patient status. ASHLEIGH 520- Could you order some laxatives? Hes concerned about a BM and also he is not leaving today. Evaluated by PT AND failed. Recommending SNF. Mary 5550 This note was completed by: Mary Benoit [facility] THERAPY NTon 05-03-2021 THERAPY NT HNO ID: [id number] Author: Leila Nogueira, PT Service: Physical Therapy Author Type: Physical Therapist Type: Therapy (PT/OT/Speech/Resp) Filed: 05/03/2021 2:40 PM Note Text: Physical Therapy Evaluation SERVICE DATE: 05/03/2021 SERVICE TIME: 1352 to 1418 ROOM: [place] [address] Recommended Discharge Disposition: Subacute/SNF Recommended Discharge Disposition Comments: Pt with unsteady gait and requiring A for bed mobility and ambulation/stairs. Pt with poor safety awareness and is at increased risk for falling at home (was running into doorways and had several LOB with ambulation). Recommended Discharge Disposition Due to: Patient requires daily, facility-based rehabilitation from at least one discipline due to:;decline in functional status requiring daily skilled care;deficits affecting dominant side Recommended Discharge Equipment: To Be Determined PT 6 Clicks Score: 17 Precautions/Activity Restrictions: Fall Risk;Brace;Weight Bearing Restrictions Precaution/Activity Restriction Comments: passive internal rotation for 6 weeks; no external rotation past neutral for 4 weeks Extremity With Weight Bearing Restricted: Right Upper Extremity Right Upper Extremity Weight Bearing Status: NWB Current Hospital Course: S/p Right Reverse Total Shoulder Arthroplasty on 05/02. Reason for Hospital Admission: Admitted for elective shoulder surgery Relevant Past Medical History: L RTC repair (still poor lifting); c-spine surgery, has lumbar spine issues; urologic issues requiring intermittent self cath, HTN, HLD Response to Therapy Interventions: Good participation in activities Continue skilled needs due to: Functional mobility/skill impairments Physical Therapy Problem List: Decreased Strength;Functional Mobility Impairment;Balance Impaired Treatment Interventions: Education;Functional Mobility Training Home Environment Patient Lives With: Self/Alone Assistance Available: PRN (pt's sister lives a mile away from him) Entry To Home: Stairs;With Rail Number Of Stairs Into Home: 6 (B HR, but unable to reach both at the same time) Number Of Stairs To Bed/Bath: 16 (1/2 bath on 1st floor; pt planning to sleep on couch for awhile on 1st floor) Stairs to Bed/Bath with: Bilateral Rail Tub/Shower Type: tub shower (old pedastool tub) Laundry: basement; 10 steps with HR; pt normally completes Equipment Owned: Cane;Wheeled Walker;Elevated Toilet Seat;Loom Cleaner;Sock Aid Prior Functional Level: Within Functional Limits Prior Functional Level Comments: Per pt, IND with ADLs, no AD for amb [employer]. 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 when getting out of tub about 3 weeks ago (pt reports he was able to get up and go about his day). Able to drive, complete IADLs. Patient Report: Pt in the chair I don't know how I will get this pain thing off, the buckle is in the back (pain pump bag was buckled around pt's waist, pt unable to remove on his own) CURRENT FUNCTIONAL STATUS: Most recent performance Current Functional Mobility Assist Level Additional Information Rolling Minimal Assistance (Pt using bedrail to A with rolling to L) Supine to Sit Moderate Assistance (OOB to L, pt unable to push himself upright using only his L UE) Sit to Supine Scooting Sit to Stand Contact Guard Assistance Stand to Sit Contact Guard Assistance Bed to Chair Toilet/Commode Gait Minimal Assistance;Additional Information Gait Device: None Gait Distance (feet): 100X2 Pt with R knee pain, unsteady, moving much too quickly, LOB with change of directions and having difficulty holding his pain pump bag in his L hand but is unable to lift his L UE to put it around his L shoulder or around his waist.. Pt also kept bumping the doors and mixon with his R shoulder. Overall pt with poor safety awareness. Stairs Minimal Assistance;Additional Information Stairs Device: Rail Number of Stairs: 4 Pt unsteady, attempting reciprocal gait but having difficulty holding his pain pump bag and the hand rail and R knee unsteady Curb Step Car Transfer Blank burns indicate activity not attempted Gait Deviations Right Lower Extremity: Knee flexion during stance increased;Step length decreased;Weight bearing decreased;Stance time decreased General Deviations/Observation s: Loss of Balance;Trunk Control Decreased;Lateral sway increased -HLM: 7: Walk 25 feet or more Learning/Educational Needs: Discharge Plan;Functional Activities/Mobility;Pl an of Care;Rehabilitation Techniques and Procedures Goals for Plan of Care: Patient /Caregiver Goals: Go To Rehab Goals: Patient will demonstrate progress to optimize functional mobility, maximize activity tolerance and endurance to maximize function upon discharge. Rehab Potential: Good Patient will be discontinued from Physical Therapy when no further skilled needs are identified in this setting. PLAN: PT Frequency: 3 times per week Plan of Care developed with: Patient TREATMEN (more content not included)... [facility] THERAPY NT HNO ID: [id number] Author: Aislinn Huffman OT/L Service: Occupational Therapy Author Type: Occupational Therapist Type: Therapy (PT/OT/Speech/Resp) Filed: 05/03/2021 2:39 PM Note Text: Occupational Therapy Evaluation SERVICE DATE: 05/03/2021 SERVICE TIME: 1023 to 1155 ROOM: [place] [address] Recommended Discharge Disposition: Subacute/SNF Recommended Discharge Disposition Comments: Pt unsafe to go home at this point. Pt has many co-morbidities which is greatly affecting his functional performance with this shoulder surgery (one of them being that he doesn't have much shoulder flexion at all in his left arm and that he needs to straight cath himself twice daily). Recommend SNF at this point. Recommended Discharge Disposition Due to: Patient requires daily, facility-based rehabilitation from at least one discipline due to:;ADL impairment resulting in caregiver dependence;anticipate community discharge/previous community dweller;decline in functional status requiring daily skilled care;deficits affecting dominant side Recommended Discharge Equipment: To Be Determined OT 6 Clicks Score: 15 Precautions/Activity Restrictions: Fall Risk;Brace;Weight Bearing Restrictions Precaution/Activity Restriction Comments: passive internal rotation for 6 weeks; no external rotation past neutral for 4 weeks Extremity With Weight Bearing Restricted: Right Upper Extremity Right Upper Extremity Weight Bearing Status: NWB Current Hospital Course: S/p Right Reverse Total Shoulder Arthroplasty on 05/02. Reason for Hospital Admission: Admitted for elective shoulder surgery Relevant Past Medical History: L RTC repair (still poor lifting); c-spine surgery, has lumbar spine issues; urologic issues requiring intermittent self cath, HTN, HLD Occupational Therapy Problem List: Safety Deficits;Impaired Self Care;Decreased Activity Tolerance;Decreased Range Of Motion;Functional Mobility Impairment;Decreased Strength;Balance Impaired Treatment Interventions: Education;Self Care / Home Management;Energy Conservation Training;Joint Mobility;Strengthening ;Functional Mobility Training;Balance Training Home Environment Patient Lives With: Self/Alone Assistance Available: PRN (pt's sister lives a mile away from him) Entry To Home: Stairs;With Rail Number Of Stairs Into Home: 6 (B HR, but unable to reach both at the same time) Number Of Stairs To Bed/Bath: 16 (1/2 bath on 1st floor; pt planning to sleep on couch for awhile on 1st floor) Stairs to Bed/Bath with: Bilateral Rail Tub/Shower Type: tub shower (old pedastool tub) Laundry: basement; 10 steps with HR; pt normally completes Equipment Owned: Cane;Wheeled Walker;Elevated Toilet Seat;Loom Cleaner;Sock Aid Prior Functional Level: Within Functional Limits Prior Functional Level Comments: Per pt, IND with ADLs, no AD for amb [employer]. 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 when getting out of tub about 3 weeks ago (pt reports he was able to get up and go about his day). Able to drive, complete IADLs. CURRENT FUNCTIONAL STATUS: Most recent performance Current Activities of Daily Living Assist Level Additional Information Feeding Minimal Assistance Grooming Contact Guard Assistance (while standing at sink) Bathing Upper Body Moderate Assistance Bathing Lower Body Minimal Assistance Dressing Upper Body Moderate Assistance Dressing Lower Body Moderate Assistance Toileting Minimal Assistance Instrumental Activities of Daily Living Assist Level Additional Information Meal/Beverage Prep Cleaning Laundry Medication Management with Strategies Functional Mobility Assist Level Additional Information Rolling Supine to Sit Sit to Supine Scooting Sit to Stand Contact Guard Assistance Stand to Sit Contact Guard Assistance Bed to Chair Toilet/Commode Shower Functional Mobility Contact Guard Assistance;Minimal Assistance;Additional Information (none) Blank burns indicate activity not attempted Learning/Educational Needs: Discharge Plan;Equipment;Family Education/Training;Fun ctional Activities/Mobility;OT In-Hospital Exercise Program;Plan of Care;Precautions;Rehab ilitation Techniques and Procedures;Safety;Self Care Goals for Plan of Care: Patient /Caregiver Goals: Go To Rehab;Care For Self Goals: Patient will demonstrate progress to optimize self-care activities, cognitive and/or coping to maximize function upon discharge. Rehab Potential: Good Patient will be discontinued from Occupational Therapy when no further skilled needs are identified in this setting. PLAN: OT Frequency: 5 times per week Plan of Care developed with: Patient TREATMENT INTERVENTIONS: Therapy Diagnosis: Decreased activities of daily living (ADL);Muscle Weakness (generalized);Reduced mobility-other;Lack of coordination-other;Gen eral symptoms and signs-other Interventions Provided: Evaluation;Therapeutic Exercise (77131);Self Senior Care Management (33201) $ Evaluation-Modera (more content not included)... [facility] ANES POSTPROC EVALon 022 ANES POSTPROC EVAL HNO ID: [id number] Author: Vipul Do MD Service: Anesthesiology Author Type: Anesthesiologist Type: Anesthesia Postprocedure Evaluation Filed: 05/02/2021 3:18 PM Note Text: POST ANESTHESIA EVALUATION NOTE : 1950 Procedure Summary Date: 05/02/21 Room / Location: [place] [address] / OR Anesthesia Start: 737 Anesthesia Stop: 1025 Procedure: REVERSE (Right Shoulder) Diagnosis: Nontraumatic complete tear of right rotator cuff Rotator cuff arthropathy of right shoulder Arthritis of shoulder Surgeons: Kev Ferrell MD Responsible Provider: Vipul Do MD Anesthesia Type: general, regional ASA Status: 3 Anesthesia Type: general, regional Airway Type: ETT Last Vitals Vitals Value Taken Time BP 117/73 05/02/21 1500 Temp 36.1 ?C (97 ?F) 05/02/21 1030 HR SpO2 69 05/02/21 1030 Resp 16 05/02/21 1215 SpO2 97 % 05/02/21 1508 Vitals shown include unvalidated device data. Post Anesthesia Patient Status Patient Evaluation: PACU. PACU/ICU Patient Condition: stable. Anticipated Disposition: inpatient floor planned admission. Neurological Status: aware and responsive. Pulmonary Status: breathing comfortably on room air Airway Control: returned to baseline unsupported. Cardiovascular Status: stable. Pain Management: clinically adequate - multimodal analgesia pain management approach Postoperative Hydration: acceptable. Intraoperative Events: no significant anesthesia events Recommendation: continue current plan of care and further care per PACU/ICU/floor team. Anesthesia Observations No Documentation SIGNATURE: Vipul Do MD PATIENT NAME: Fahad Sotelo DATE: May 02, 2021 TIME: 3:18 PM CSN: [id number] [facility] ANES PRE-OPon 05-02-2021 ANES PRE-OP HNO ID: [id number] Author: Vipul Do MD Service: Anesthesiology Author Type: Anesthesiologist Type: Anesthesia Preprocedure Evaluation Filed: 05/02/2021 7:14 AM Note Text: ANESTHESIOLOGY DAY OF SURGERY NOTE : 1950 Procedure Information Date/Time: 05/02/21729 Procedure: REVERSE (Right Shoulder) Location: AV OR04 / AV OR Surgeons: Kev Ferrell MD Estimated body mass index is 33.77 kg/m? as calculated from the following: Height as of 04/12/21: 176.5 cm (5' 9.5 ). Weight as of 04/12/21: 105.2 kg (232 lb). Most recent hematocrit and potassium results: Hematocrit 50.9 04/12/2021 Potassium 4.7 04/12/2021 Relevant Problems CARDIO (+) CAD (coronary artery disease) (s/p CABG) (+) Essential hypertension Other (+) Obesity, Class I, BMI 30-34.9 I - PHYSICAL EVALUATION AIRWAY Patient intubated: No. Tracheostomy tube not present Mallampati: II. TM distance: >3 FB. Neck ROM: full ROM without neurological symptoms. Mouth opening: adequate. Short neck: no. Thick neck: no DENTAL Dental findings: teeth intact. Additional exam findings: no II - ANESTHESIA PLAN ASA Score: 3 Anesthetic Plan: general and regional NPO Status: adequate Monitoring plan: Standard ASA. Anesthetic plan additional comments: Pre op interscalelene continuous block per surgeon request . Postoperative analgesic plan: parenteral or oral opioids, peripheral nerve block and multimodal analgesia. Informed Consent Anesthetic risks, benefits, alternatives, personnel and consent discussed: yes. Patient / Responsible Constitution Party agrees to proceed: yes Patient / Surrogate agrees to blood products: yes DNR status not reviewed with patient and/or family prior to surgery. Significant changes in the patient condition since the History and Physical, not otherwise documented in primary service progress note: no. Potential Anesthesia issues that may suggest increased risk of complications or contraindication to planned procedure: none. Vitals Value Taken Time BP 124/76 05/02/21 0645 Pulse 68 05/02/21 0645 Resp 18 05/02/21 0645 Temp 36.3 ?C (97.4 ?F) 05/02/21 0645 SpO2 98 % 05/02/21 0645 Facility-Administered Medications as of 05/02/2021 Medication Dose Route Frequency - lidocaine 10 mg/mL (1 %) 1-2 mg injection (XYLOCAINE) 0.1-0.2 mL INTRADERMAL PRN - lactated ringers iv infusion 5-30 mL/hr INTRAVENOUS CONTINUOUS - ceFAZolin iv piggyback 2 g in D5W (iso-osmotic) 100 mL (ANCEF) 2 g INTRAVENOUS Pre-Op Once - [COMPLETED] tranexamic acid iv piggyback 1000 mg in NaCl 0.7% 100 mL (CYKLOKAPRON) 1,000 mg INTRAVENOUS Pre-Op Once - [COMPLETED] gabapentin 300 mg cap(s) (NEURONTIN) 300 mg ORAL ONCE - [COMPLETED] oxyCODONE ER 10 mg tab(s) (OxyCONTIN) 10 mg ORAL ONCE - [COMPLETED] promethazine 12.5 mg tab(s) (PHENERGAN) 12.5 mg ORAL Pre-Op Once - scopolamine 1 mg over 3 days 1 Patch (TRANSDERM-SCOP) 1 Patch TRANSDERMAL q 72 HR And - [START ON 05/04/2021] scopolamine - REMOVE PATCH OTHER q 72 HR - [COMPLETED] acetaminophen 650 mg tab(s) (TYLENOL) 650 mg ORAL ONCE - midazolam (PF) 2 mg injection (VERSED) 2 mg INTRAVENOUS ONCE Outpatient Medications as of 05/02/2021 Medication Sig - Amoxicillin 500 mg tablet Take 4 tablets 1 hour before procedure and 2 tablets 6 hours after procedure - aspirin, enteric coated (ASPIRIN, ENTERIC COATED) 81 mg EC tablet Take 1 tablet by mouth twice daily. - metoprolol tartrate, short acting, (LOPRESSOR) 50 mg tablet Take 1 tablet by mouth twice daily. - COMPOUNDED PRESCRIPTION 16 fr catheters - lisinopril (ZESTRIL, PRINIVIL) 20 mg tablet Take 20 mg by mouth once daily. - ascorbic acid, vitamin C, (VITAMIN C) 500 mg tablet Take 1 tablet by mouth once daily. - MAGNESIUM HYDROXIDE (MILK OF MAGNESIA ORAL) Take 1 Bottle by mouth once daily. - isosorbide mononitrate ER (IMDUR) 60 mg 24 hr tablet Take 60 mg by mouth once daily. - cholecalciferol (VITAMIN D) 1,000 unit tab tablet Take 1,000 Units by mouth once daily. - Multivitamin capsule Take 1 capsule by mouth once daily. - rosuvastatin (CRESTOR) 40 mg tablet Take 40 mg by mouth once daily. I have interviewed and examined the patient. I have reviewed the medical record and/or the pre-anesthesia evaluation, pertinent labs, and test results. This contains updated information obtained within 48 hours of Surgery/Procedure. SIGNATURE: Vipul Do MD PATIENT NAME: Fahad Sotelo DATE: May 02, 2021 TIME: 7:13 AM CSN: [id number] [facility] BRIEF OP NOTon 05-02-2021 BRIEF OP NOT HNO ID: [id number] Author: Kev Ferrell MD Service: Orthopaedic Surgery Author Type: Physician Type: Brief Op Note Filed: 05/02/2021 10:15 AM Note Text: BRIEF OPERATIVE / PROCEDURE NOTE LOG ID: [id number] SURGERY/PROCEDURE DATE: 05/02/2021 INCISION/PROCEDURE START TIME: 8:23 AM INCISION CLOSE/PROCEDURE END TIME: 10:10 AM SURGEON(S)/PROCEDURALI ST(S) AND PINION STAKER(S): Surgeon(s) and Role: * Kev Ferrell MD - Primary * Kimani Gutierres MD - Assisting Physician Check Processing Clerk: Nehemiah Gilbert PA-C SURGERY/PROCEDURE(S): Right Reverse Total Shoulder Arthroplasty Biceps Tenodesis ANESTHESIA: General/ GET With Scalene Catheter FINDINGS: RCT OA ESTIMATED BLOOD LOSS: 100 mls SPECIMENS: None COMPLICATIONS: None IMPLANTS: Hayden BiometComprehensive Reverse TSR PRE-OP/PRE-PROCEDURE DIAGNOSIS: Non Traumatic RCT, OA, Rotator Cuff Arthropathy POST-OP/POST-PROCEDURE DIAGNOSIS: Same as Preop SIGNATURE: Kev Ferrell MD PATIENT NAME: Fahad Sotelo DATE: May 02, 2021 TIME: 10:06 AM [facility] NURSING PROGon 05-02-2021 NURSING PROG HNO ID: [id number] Author: Ana Lal RN Service: ? Author Type: Registered Nurse Type: Nursing Progress Note Filed: 05/02/2021 7:57 PM Note Text: Nursing Progress Note Patient Name: Fahad Sotelo Patient [place] [address] [address] __ Daily Note: Admitted from PACU s/p right reversed shoulder. alert and oriented X 3, pleasant. No c/o pain at this time. Good PO intake. Skin checks done with LEATHA Hernandez. No pressure ulcer noted. This note was completed by: Ana Lal [facility] OPERATIVE NOon 05-02-2021 OPERATIVE NO HNO ID: [id number] Author: Kev Ferrell MD Service: Orthopaedic Surgery Author Type: Physician Type: Operative Report Filed: 05/04/2021 9:35 AM Note Text: [facility] - Operative Report FAHAD SOTELO : 1950 AGE: 70. SEX: M PATIENT TYPE: A HOSP SVC: OROR LOCATION: [facility] ATTENDING PHYSICIAN: Kev Ferrell MD CSN NUMBER: [id number] DATE OF SURGERY/PROCEDURE: 05/02/2021 INCISION/PROCEDURE START TIME: 0823 hours. INCISION CLOSE/PROCEDURE END TIME: 1010 hours. PREOPERATIVE DIAGNOSIS: 1. Right shoulder rotator cuff arthropathy. 2. Chronic nontraumatic rotator cuff tear. 3. Osteoarthritis. POSTOPERATIVE DIAGNOSIS: 1. Right shoulder rotator cuff arthropathy. 2. Chronic nontraumatic rotator cuff tear. 3. Osteoarthritis. SURGEON: Kev Ferrell MD PINION STAKER: 1. Kimani Gutierres M.D. Dr. Gutierres assisted in all aspects of the procedure. His assistance was critical for the procedure. 2. Nehemiah Gilbert PA-C. No qualified resident available. Mr. Gilbert assisted in positioning the patient, retraction, and closure of surgical incision. SURGERY/PROCEDURE: 1. Right reverse total shoulder arthroplasty. 2. Biceps tenodesis. I performed the procedure. ANESTHESIA: General endotracheal with interscalene catheter. FINDINGS: 1. Complete full-thickness tears of the supraspinatus and infraspinatus tendons with retraction medial to the glenoid. 2. High-grade partial-thickness tearing of the subscapularis tendon. 3. Osteoarthritis of the humeral head and glenoid. 4. Significant biceps tenosynovitis. The biceps was enveloped in synovitis and enlarged. INDICATIONS FOR PROCEDURE: The patient is a 70-year-old man with right shoulder rotator cuff arthropathy and pain, not responsive to comprehensive course of conservative treatment. We discussed right reverse total shoulder arthroplasty. We went over the procedure with him in detail, options, risks, expected outcome, and postoperative rehab. Discussed risk of infection, stiffness, perioperative medical problems, neurovascular injury, DVT, instability, and persistent pain. We discussed role of range of motion. We discussed surgical treatment in light of COVID-19 pandemic. The patient had a good understanding. He wished to proceed. ESTIMATED BLOOD LOSS: 100 mL. DRAINS: None. SPECIMENS: None. COMPLICATIONS: None apparent. IMPLANTS: Hayden [employer]omet comprehensive reverse total shoulder arthroplasty. A size 14 mini humeral stem, a +0 offset +5 thickness tray with a +3 retentive bearing, a mini baseplate with a 32 mm Glenosphere with offset directed inferiorly. DESCRIPTION OF PROCEDURE: Procedure and operative site were confirmed with the patient. The operative site was marked. All questions were answered. Preoperative sign-in was performed. The patient had an interscalene catheter placed by the anesthesiologist. He was brought into the operating room and placed on the operating room table. He had a general endotracheal anesthetic. He was positioned in the beach chair position. All pressure areas were well padded. His right shoulder and arm were then prepped with ChloraPrep and draped in the usual sterile fashion. We did a time-out. The incision site was infiltrated with 0.25% Marcaine with epinephrine. The incision was made over the deltopectoral interval. Cephalic vein was dissected free. It was retracted laterally with the deltoid. The deltopectoral interval was developed. The upper part of the pectoralis tendon was incised. Clavipectoral fascia was incised. The conjoined tendon undermined. The musculocutaneous nerve was identified and protected. We bluntly lysed the subacromial and subdeltoid adhesions. The biceps tendon demonstrated the significant enlargement of the biceps sheath. The sheath and transverse humerus ligament were incised. There was a significant amount of synovitis around the biceps and the biceps was enlarged. It was tenodesed to the pectoralis tendon using #2 FiberWire suture. The remainder of the tendon was excised. The anterior humeral circumflex vessels were dissected free. These were ligated and coagulated. The axillary nerve was palpated and protected throughout the case. We now placed our attention towards the subscapularis tenotomy. The subscapularis tendon was thinned. It was incised medial to the lesser tuberosity. The plane between the subscapularis tendon and the underlying capsule was developed. The subscapularis tendon was tagged and retracted medially. We now excised the anterior capsule assuring to extend inferiorly to allow dislocation of the humerus. We now were able to dislocate the humerus from the glenoid. The superior rotator cuff was completely torn. There was no coverage of the humeral head. There were arthritic changes of the humerus. We positioned the humerus for reaming. It was reamed sequentially to a 14 mm reamer. This had good (more content not included)... [facility] XR SHOULDER 2V AP/TRUE AP RT on 05-02-2021 XR SHOULDER 2V AP/TRUE AP RT * * *Final Report* * * DATE OF EXAM: May 02 2021 11:47AM [id number] - XR SHOULDER 2V AP/TRUE AP RT / PROCEDURE REASON: post-op pain * * * * Physician Interpretation * * * * CLINICAL:..... post-op pain TECHNIQUE: AP and transscapular views of the right shoulder RESULT: Right shoulder arthroplasty with anatomic alignment. IMPRESSION: Postoperative change related to right shoulder arthroplasty with anatomic alignment. Reconnaissance Crewmember: DEEPIKA Transcribe Date/Time: May 02 2021 11:53A Dictated by : KIZZY COLEMAN MD This examination was interpreted and the report reviewed and electronically signed by: KIZZY COLEMAN MD on May 02 2021 11:53AM EST [id number] [facility] CT SHOULDER WO IVCON RTon [facility] XR Shoulder - right 4 Viewso n 12-21-2020 IMPRESSION: Findings consistent with chronic rotator cuff tear and mild cuff arthropathy. Reconnaissance Crewmember: [facility] Transcribe Date/Time: Dec 21 2020 11:51A Dictated by : FELIX SANDOVAL DO This examination was interpreted and the report reviewed and electronically signed by: ENID SMITH MD on Dec 21 2020 3:31PM EST DIVISION OF RADIOLOGY * * *Final Report* * * DATE OF EXAM: Dec 21 2020 11:42AM [id number] - XR SHLDR 4V AP/LUCITA/LAT/OUTLET RT / PROCEDURE REASON: Right shoulder pain, unspecified chronicity * * * * Physician Interpretation * * * * EXAMINATION / TECHNIQUE: XR SHLDR 4V AP/LUCITA/LAT/OUTLET RT PATIENT/TECHNOLOGIST PROVIDED HISTORY: RT SHOULDER PAIN CLINICAL INFORMATION ( PROVIDED BY ORDERING CLINICIAN) : Right shoulder pain, unspecified chronicity COMPARISON: MRI right shoulder 08/10/2020. RESULT: No acute fracture or dislocation. Mild narrowing of the glenohumeral joint with marginal osteophyte formation. Narrowing of the subacromial space with cystic changes along the humeral greater tuberosity, finding compatible with rotator cuff tear and also demonstrated on prior MRI imaging. Moderate degenerative changes of the acromioclavicular joint with calcification along the superior joint capsule. DIVISION OF RADIOLOGY [facility] * * *Final Report* * * DATE OF EXAM: Dec 21 2020 11:42AM [id number] - XR SHLDR 4V AP/LUCITA/LAT/OUTLET RT / PROCEDURE REASON: Right shoulder pain, unspecified chronicity * * * * Physician Interpretation * * * * EXAMINATION / TECHNIQUE: XR SHLDR 4V AP/LUCITA/LAT/OUTLET RT PATIENT/TECHNOLOGIST PROVIDED HISTORY: RT SHOULDER PAIN CLINICAL INFORMATION ( PROVIDED BY ORDERING CLINICIAN) : Right shoulder pain, unspecified chronicity COMPARISON: MRI right shoulder 08/10/2020. RESULT: No acute fracture or dislocation. Mild narrowing of the glenohumeral joint with marginal osteophyte formation. Narrowing of the subacromial space with cystic changes along the humeral greater tuberosity, finding compatible with rotator cuff tear and also demonstrated on prior MRI imaging. Moderate degenerative changes of the acromioclavicular joint with calcification along the superior joint capsule. IMPRESSION IMPRESSION: Findings consistent with chronic rotator cuff tear and mild cuff arthropathy. Reconnaissance Crewmember: DEEPIKA Transcribe Date/Time: Dec 21 2020 11:51A Dictated by : FELIX SANDOVAL DO This examination was interpreted and the report reviewed and electronically signed by: ENID SMITH MD on Dec 21 2020 3:31PM EST [facility] Radiology Study observation (narrative) [facility] XR Shoulder - right 4 ViewsO rdered By: [facility] Provider on 12-21-2020 [facility] MR Shoulder - right WO contr lavon 08-10-2020 IMPRESSION: 1. Complete retracted tear of the supraspinatus and infraspinatus tendons and superimposed infraspinatus muscle strain 2. Subscapularis tendinosis and partial tear 3. Diffuse biceps tendinosis and moderate partial tear 3. Glenohumeral osteoarthritis with degeneration of the labrum and joint effusion Reconnaissance Crewmember: [facility] Transcribe Date/Time: Aug 10 2020 1:18P Dictated by : GASPER KNIGHT MD This examination was interpreted and the report reviewed and electronically signed by: GASPER KNIGHT MD on Aug 10 2020 1:23PM EST DIVISION OF RADIOLOGY * * *Final Report* * * DATE OF EXAM: Aug 10 2020 1:05PM LN 0240 - MRI SHOULDER WO IVCON RT / PROCEDURE REASON: multiple diagnoses * * * * Physician Interpretation * * * * MRI of the right shoulder HISTORY: Nontraumatic tear of the rotator cuff TECHNIQUE: Routine study of the right shoulder COMPARISON: None available Results There is a complete tear of the supraspinatus and infraspinatus tendons with 4 cm retraction of the supraspinatus tendon and 5-6 cm retraction of the infraspinatus tendon and myotendinous junction. Moderate edema is noted throughout the infraspinatus muscle and mild atrophy and edema of the supraspinatus muscle. There is diffuse fatty atrophy of the teres minor muscle. Subscapularis tendinosis present with 1 cm partial tear distally. Diffuse biceps tendinosis and moderate partial tear is noted throughout the bicipital groove extending to the biceps labral complex. Moderate articular cartilage irregularity is noted at the glenohumeral joint with diffuse degeneration and irregularity of the labrum. Subchondral cystic changes noted at the humeral head and superiorly at the glenoid. No labral displacement. There is a joint effusion with scattered synovial hypertrophy and/or debris at the glenohumeral joint anteriorly and in the subscapularis and subcoracoid bursa. Moderate arthrosis noted at the acromioclavicular joint and the coracoclavicular ligaments are intact. There is irregularity and cystic changes at the undersurface of the acromion. Chronic irregularity and cystic changes noted at the tuberosities and posterolateral humeral head. DIVISION OF RADIOLOGY Provider, [facility] - 08/10/2020 * * *Final Report* * * DATE OF EXAM: Aug 10 2020 1:05PM [facility] 0240 - MRI SHOULDER WO IVCON RT / PROCEDURE REASON: multiple diagnoses * * * * Physician Interpretation * * * * MRI of the right shoulder HISTORY: Nontraumatic tear of the rotator cuff TECHNIQUE: Routine study of the right shoulder COMPARISON: None available Results There is a complete tear of the supraspinatus and infraspinatus tendons with 4 cm retraction of the supraspinatus tendon and 5-6 cm retraction of the infraspinatus tendon and myotendinous junction. Moderate edema is noted throughout the infraspinatus muscle and mild atrophy and edema of the supraspinatus muscle. There is diffuse fatty atrophy of the teres minor muscle. Subscapularis tendinosis present with 1 cm partial tear distally. Diffuse biceps tendinosis and moderate partial tear is noted throughout the bicipital groove extending to the biceps labral complex. Moderate articular cartilage irregularity is noted at the glenohumeral joint with diffuse degeneration and irregularity of the labrum. Subchondral cystic changes noted at the humeral head and superiorly at the glenoid. No labral displacement. There is a joint effusion with scattered synovial hypertrophy and/or debris at the glenohumeral joint anteriorly and in the subscapularis and subcoracoid bursa. Moderate arthrosis noted at the acromioclavicular joint and the coracoclavicular ligaments are intact. There is irregularity and cystic changes at the undersurface of the acromion. Chronic irregularity and cystic changes noted at the tuberosities and posterolateral humeral head. IMPRESSION IMPRESSION: 1. Complete retracted tear of the supraspinatus and infraspinatus tendons and superimposed infraspinatus muscle strain 2. Subscapularis tendinosis and partial tear 3. Diffuse biceps tendinosis and moderate partial tear 3. Glenohumeral osteoarthritis with degeneration of the labrum and joint effusion [facility] Transcribe Date/Time: Aug 10 2020 1:18P Dictated by : GASPER KNIGHT MD This examination was interpreted and the report reviewed and electronically signed by: GASPER KNIGHT MD on Aug 10 2020 1:23PM EST [facility] Radiology Study observation (narrative) [facility] MR Shoulder - right WO contr astOrdered By: Ccf Provider on 08-10-2020 [facility] [address] LUMBAR SPINE WO IVCONon 0 06-29-2020 [facility] XR Pelvis and Hip - right AP and Lateral frogon 04-15-2020 IMPRESSION: Bilateral hip joint degenerative changes as described. [facility]connaissance Crew[facility] Transcribe Date/Time: Apr 15 2020 4:27P Dictated by : MARSHAL STOVALL MD This examination was interpreted and the report reviewed and electronically signed by: MARSHAL STOVALL MD on Apr 15 2020 4:29PM EST DIVISION OF RADIOLOGY * * *Final Report* * * DATE OF EXAM: Mar 4 2021 3:34PM [facility]ZX 5352 - XR HIP 3V PELV+ AP/LAT RT / PROCEDURE REASON: Pain in right hip * * * * Physician Interpretation * * * * EXAMINATION: XR HIP 3V PELV+ AP/LAT RT HISTORY: rt hip pain since knee surgery Pain in right hip . TECHNIQUE: XR HIP 3V PELV+ AP/LAT RT Laterality: RIGHT Number of different views (projections): 3 M: XB_1 COMPARISON: None RESULT: Mild to moderate axial narrowing of hip joints bilaterally with osteophytosis. No acute fracture or dislocation. Sacroiliac joints are maintained bilaterally with small osteophytes. Postoperative changes of L4-L5 fusion. Mild narrowing of symphysis pubis. Enthesophytes about the pelvis and proximal femurs. No other significant abnormality. DIVISION OF RADIOLOGY Provider, [facility] - 04/15/2020 * * *Final Report* * * DATE OF EXAM: Apr 15 2020 3:34PM [facility] 5352 - XR HIP 3V PELV+ AP/LAT RT / PROCEDURE REASON: Pain in right hip * * * * Physician Interpretation * * * * EXAMINATION: XR HIP 3V PELV+ AP/LAT RT HISTORY: rt hip pain since knee surgery Pain in right hip . TECHNIQUE: XR HIP 3V PELV+ AP/LAT RT Laterality: RIGHT Number of different views (projections): 3 M: XB_1 COMPARISON: None RESULT: Mild to moderate axial narrowing of hip joints bilaterally with osteophytosis. No acute fracture or dislocation. Sacroiliac joints are maintained bilaterally with small osteophytes. Postoperative changes of L4-L5 fusion. Mild narrowing of symphysis pubis. Enthesophytes about the pelvis and proximal femurs. No other significant abnormality. IMPRESSION IMPRESSION: Bilateral hip joint degenerative changes as described. Reconnaissance Crewmember: [facility] Transcribe Date/Time: Apr 15 2020 4:27P Dictated by : MARSHAL STOVALL MD This examination was interpreted and the report reviewed and electronically signed by: MARSHAL STOVALL MD on Apr 15 2020 4:29PM EST [facility] Radiology Study observation (narrative) [facility] XR Pelvis and Hip - right AP and Lateral frogOrdered By: Ccf Provider on 04-15-2020 [facility] Coding Summary.on 08-15-2016 Coding Summary. CODING DATE: 08/15/2016 FINAL [facility] STATUS: Home (Routine DC) PAYOR: Medicare APC DESCRIPTION 5373 Level 3 Urology and Related Services ADMIT DX: REASON FOR VISIT DX: N39.41 Urge incontinence FINAL DX: PRINCIPAL: N39.41 Urge incontinence SECONDARY: R35.0 Frequency of micturition I10 Essential (primary) hypertension E78.5 Hyperlipidemia, unspecified I25.10 Atherosclerotic heart disease of [place] coronary artery without angina pectoris I25.2 Old myocardial infarction Z95.1 Presence of aortocoronary bypass graft Z87.891 Personal history of nicotine dependence PYMT PROC APC STAT DESCRIPTION DOCTOR NAME DATE NOTE: The code number assigned matches the documented diagnosis and / or procedure in the patient's chart. However, the narrative phrase printed from the coding software may appear abbreviated, or result in slightly different terminology. Coded By: Joseline Damon Date Saved: 08/15/2016 11:04 am Normal [facility] Inpatient Patient Summaryon 08-14-2016 Inpatient Patient Summary [place] [id number] Clinical SummaryPerson Information Name: FAHAD SOTELO Age: 65 Years : 1950 12:00 AM Sex: Male PCP: NONE, XXXX Marital Status:Single Race:White Ethnicity:Non- or Language:Urdu Visit Id: Visit Reason:BPH W/LUTS, URGE INCONTINENCE, FREQUENCY Speciality: Acuity: Enc Type: Outpatient Med Service: Surgery Arrival:08/14/2016 7:05 AM Discharge: Dispo Type: Address:[address] [place] [id number] Provider Notes: Diagnosis: Problems No Problems Documented Smoking Status: Functional Status:Sensory Deficits: History of Falls: Mobility Assistance Prior to Admission: ADLs: Current Level of Assistance for Self-Care/Mobility: Cognitive Status: Allergies No Known Medication Allergies Laboratory or Other Results This Visit (last charted value for your 08/14/2016 visit) No Laboratory or Other Results This Visit Measurements:Height: 177.8 cmWeight: Blood Pressure: Not Valued / Not ValuedBMI: Procedures No Procedures Documented Immunizations No Immunizations Documented This Visit Final Med List:No Medications Documented Care Team Members:Attending Physician: David Carrillo MDConsulting Physician: Referring Physician: David Carrillo MD Follow up:With: Address: When: David Gerardo [address], [address], [facility] [address] [place] [id number] [facility] ([employer] In 2 weeks 08/28/2016 Patient Education Information: EU - Cystoscopy with Botox Injection Discharge Instructions (Custom) [facility] Main OR Intraoperative Recor don 08-14-2016 Main OR Intraoperative Record IntraOp Document Type FTURO Summary Primary Physician: David Carrillo MD Finalized Date/Time: 08/14/16 08:20:24 Pt. Name: FAHAD SOTELO Teresa Jones/Sex: 1950 Male Med Rec #: [id number] Physician: David Carrillo MD Financial #: [id number] Pt. Type: O Room/Bed: / Admit/Disch: 08/14/16 07:05:26 - Institution: Case Times FTURO Entry 1 Patient Times In Room 08/14/16 08:10:00 Out Room 08/14/16 08:24:00 Procedure Times Start 08/14/16 08:13:00 Stop 08/14/16 08:19:00 Anesthesia Times Last Modified By: Argelia Manley RN 08/14/16 08:20:19 Case Attendance FTURO Entry 1 Entry 2 Entry 3 Case Attendee Vineet ZHANG, Argelia Isidro SIGNAL MAINTAINER HELPER, David Bueno MD Role Performed Vein Access Technician - Primary Scrub - Primary Surgeon - Primary Time In 08/14/16 08:10:00 08/14/16 08:10:00 08/14/16 08:10:00 Time Out 08/14/16 08:24:00 08/14/16 08:24:00 08/14/16 08:24:00 Procedure CYSTOSCOPY LOCAL BOTOX CYSTOSCOPY LOCAL BOTOX CYSTOSCOPY LOCAL BOTOX INJECTION(.) INJECTION(.) INJECTION(.) Comments Last Modified By: Argelia Manley RN, RN, Argelia Manley RN, Argelia Rajan 08/14/16 08:20:21 08/14/16 08:20:21 08/14/16 08:20:21 Surgical Procedures FTURO Entry 1 Procedure Description Procedure CYSTOSCOPY LOCAL BOTOX Modifiers . INJECTION Surgeon Description CYSTOSCOPY BOTOX INJECTION 100 UNITS Primary Procedure Yes Primary Surgeon David Carrillo MD Start 08/14/16 08:13:00 Stop 08/14/16 08:19:00 Anesthesia Type Local Surgical Service Urology Wound Class 2 - Clean-Contaminated Last Modified By: Argelia Manley RN 08/14/16 08:19:47 General Comments: botox 100 units lot#[id number] ex 02/2019/brain General Case Data FTURO Pre-Care Text: Classifies surgical wound, implements aseptic technique, initiates traffic control Entry 1 Case Information OR URO 1 FT Case Level None Wound Class 2 - Clean-Contaminated Specialty Urology Preop Diagnosis BPH WITH LUTS, URGE Postop Same As Preop Yes INCONTINENCE, FREQUENCY Postop Diagnosis BPH WITH LUTS, URGE Outcomes Met? Yes INCONTINENCE, FREQUENCY Last Modified By: Argelia Manley RN 08/14/16 07:36:26 Post-Care Text: The patient is free from signs and symptoms of infection EU IntraOp - FTURO Pre-Care Text: Implements protective measures prior to operative or invasive procedure, confirms identity before the operative or invasive procedure, verifies operative procedure, surgical site, and laterality Entry 1 EU Perioperative Protocols Procedure(s) CYSTOSCOPY LOCAL BOTOX Patient Identity Birthday, ID Band INJECTION(.) Verified (select at Check, Patient least 2): Participation Consents / H and P HandP, Surgery/Procedure Operative Site N/A Verified Consent Marking Verified Surgical Site Yes Laterality Verified n/a Verified Procedure Verified Yes Correct Patient Yes Position Verified Availability Equipment, Medication Time Out Argelia Manley RN, Verified (If Participants Wen Isidro CST, Applicable) David Carrillo MD Time Out Complete 08/14/16 08:10:00 Allergies Reviewed? Yes Allergies Reviewed Self/Patient With Body Position Low Lithotomy Prep Area PENIS Prep Agents Betadine Solution Skin. Condition Intact, Hamlet, Warm, and Description PATIENT PARTIALLY Dry, Unable to Visualize CLOTHED, UNABLE TO VISUALIZE ALL SKIN Additional None Specimens Collected Vitals - EU Blood Pressure Pulse Respirations SPO2 EBL 0 IandO - EU Total Intake 0 mL Total Output 0 mL Outcomes Met? Yes Last Modified By: Argelia Manley RN 08/14/16 08:16:14 Post-Care Text: The patient is free from signs and symptoms of injury caused by extraneous objects Case Comments Finalized By: Argelia Manley RN Document Signatures Signed By: Argelia Manley RN 08/14/16 08:20 Normal [facility] Main OR Preoperative Recordo n 08-14-2016 Main OR Preoperative Record Holding Area Document Type FTURO Summary Primary Physician: David Carrillo MD Finalized Date/Time: 08/14/16 07:38:52 Pt. Name: FAHAD SOTELO Teresa Marsh/Sex: 1950 Male Med Rec #: [id number] Physician: David Carrillo MD Financial #: [id number] Pt. Type: O Room/Bed: / Admit/Disch: 08/14/16 07:05:26 - Institution: Case Times Holding FTURO Pre-Care Text: Verifies consent for planned procedure, identifies individual values and wishes concerning care, includes family members in perioperative teaching Secures patient's records' belongings, and valuables, maintains patient's dignity and privacy, and maintains patient confidentiality Entry 1 In Holding 08/14/16 07:32:00 Outcomes Met? Yes Last Modified By: Katherin Bauer LPN 08/14/16 07:32:41 Post-Care Text: The patient participates in decisions affecting his or her perioperative plan of care The patient's right to privacy is maintained Surgery Checklist FTURO Entry 1 Patient Birthday, ID Band Procedure History and Physical, Identification: Check, Patient Verification: Surgical Consent, With Participation Patient NPO after Midnight: n/a Personal Items: Cataract Lens Implant Personal Items bilat lens implants Complaints of Pain: No Comment: Skin Integrity Intact, Hamlet, Warm, & Dry Vitals - EU Blood Pressure 115/63 Pulse 67 bpm Respirations 16 br/min SPO2 Additional Other (See Comment) Specimens Comment URINE FOR UA Specimens Collected RN Reviewed Yes Last Modified By: Argelia Manley RN 08/14/16 07:38:50 Finalized By: Argelia Manley RN Document Signatures Signed By: Katherin Bauer LPN 08/14/16 07:36 Argelia Manley RN 08/14/16 07:38 Normal [facility] Operative Reporton 7 Operative Report Patient: MARIBEL SOTELO Age: 65 years Sex: Male : 1950 Associated Diagnoses: None Author: David Carrillo MD Procedure Operative Information Details: Date/ Time: 08/14/16 08:24:00. Pre-Op Dx: Incont/Urge - N39.41. Post-Op Dx: Same. Anesthesia Type: Local. Procedure: Local Cystoscopy with botox injection. Complications: None. Risks/Benefits/Informe d Consent: Surgical risks, benefits, details of the procedure have been explained to the patient, Full informed consent has been obtained. Intraoperative Information Prepped: Patient is brought back to the endoscopy suite, Male Prep (Patient is placed in supine position, 10 cc 2% Xylocaine Jelly is placed per Urethra, 60 cc 2% Xylocaine liquid inserted into bladder, 10 additional cc 2% Xylocaine Jelly is placed per Urethra, Penile clamp applied for 20 min dwell prior to procedure with patient in sitting position, Placed in modified dorso/lithotomy position for procedure), Urine Specimen Results Negative for infection, Patient prepped in the usual fashion with Betadine solution, 10 cc 2% Xylocaine Jelly is placed per Urethra, After waiting several minutes the Cystoscope is introduced. Procedure: The trigone was identified and evaluated, 20 template injection sites were identified, The bladder was instilled with enough saline to achieve adequate visualization for the injections, The needle was inserted approximately 2 mm into the detrusor spaced approximately 1 cm apart, A total of 20 injections with a 0.5 ml volume was delivered at each site for a total of 100 units of Botox. The Urethra is: Normal. Botox: 100 units. The Prostatic Urethra is: Unobstructed, (well resected status post TURP). The ureteral orifices: Show efflux of clear urine. The Bladder is: Trabeculated Moderate (2), No tumors, no stones. . Devices Implanted: None. Removal: Cystoscope is removed, The patient tolerated it well. Postoperative Information Discharge: Patient is discharged home with antibiotic coverage, Follow up arranged. [facility] Comment on above: Result Comment: Elec tronically Signed By: Gerardo CAMARGO, David Stoddard\Date and Time Signed: 08/14/16 08:28 EDT Vital Signs Date Time Vital Sign Value Performing Clinician Gildardo villaseñor 04-03-2024 11:29-0500 Body height 177.8 cm Christina Hemmer PA Work Phone: [facility] 04-03-2024 11:29-0500 Body mass index (BMI) [Ratio] 31.91 kg/m2 Christina Hemmer PA Work Phone: [facility] 04-03-2024 11:29-0500 Body weight 100.88 kg Christina Hemmer PA Work Phone: [facility] 04-03-2024 11:29-0500 Diastolic blood pressure 72 mm[Hg] Christina Hemmer PA Work Phone: [facility] 04-03-2024 11:29-0500 Heart rate 65 /min Christina Hemmer PA Work Phone: [facility] 04-03-2024 11:29-0500 Respiratory rate 16 /min Christina Hemmer PA Work Phone: [facility] 04-03-2024 11:29-0500 SaO2% (BldA) [Mass fraction] 97 % Christina Hemmer PA Work Phone: [facility] 04-03-2024 11:29-0500 Systolic blood pressure 108 mm[Hg] Christina Hemmer PA Work Phone: [facility] 03-07-2024 08:50-0500 Body height 177.8 cm Stanton Velasco MD Work Phone: [facility] 03-07-2024 08:50-0500 Body mass index (BMI) [Ratio] 32 kg/m2 Stanton Velasco MD Work Phone: [facility] 03-07-2024 08:50-0500 Body weight 101.15 kg Stanton Velasco MD Work Phone: [facility] 03-07-2024 08:50-0500 Diastolic blood pressure 66 mm[Hg] Stanton Velasco MD Work Phone: [facility] 03-07-2024 08:50-0500 Heart rate 59 /min Stanton Velasco MD Work Phone: [facility] 03-07-2024 08:50-0500 SaO2% (BldA) [Mass fraction] 96 % Stanton Velasco MD Work Phone: [facility] 03-07-2024 08:50-0500 Systolic blood pressure 122 mm[Hg] Stanton Velasco MD Work Phone: [facility] 02-15-2024 09:10-0500 Body height 177.8 cm Stanton Velasco MD Work Phone: [facility] 02-15-2024 09:10-0500 Body mass index (BMI) [Ratio] 32 kg/m2 Stanton Velasco MD Work Phone: [facility] 02-15-2024 09:10-0500 Body weight 101.15 kg Stanton Velasco MD Work Phone: [facility] 02-15-2024 09:10-0500 Diastolic blood pressure 74 mm[Hg] Stanton Velasco MD Work Phone: [facility] 02-15-2024 09:10-0500 Heart rate 64 /min Stanton Velasco MD Work Phone: [facility] 02-15-2024 09:10-0500 SaO2% (BldA) [Mass fraction] 95 % Stanton Velasco MD Work Phone: [facility] 02-15-2024 09:10-0500 Systolic blood pressure 128 mm[Hg] Stanton Velasco MD Work Phone: [facility] 12-12-2023 13:22-0400 Diastolic blood pressure 72 mm[Hg] Louie Salomon MD Work Phone: [facility] 12-12-2023 13:22-0400 Heart rate 63 /min Louie Salomon MD Work Phone: [facility] 12-12-2023 13:22-0400 Systolic blood pressure 130 mm[Hg] Louie Salomon MD Work Phone: [facility] 11-02-2023 11:03-0400 Body height 177.8 cm Stanton Velasco MD Work Phone: [facility] 11-02-2023 11:03-0400 Body mass index (BMI) [Ratio] 31.71 kg/m2 Stanton Velasco MD Work Phone: [facility] 11-02-2023 11:03-0400 Body weight 100.25 kg Stanton Velasco MD Work Phone: [facility] 11-02-2023 11:03-0400 Diastolic blood pressure 76 mm[Hg] Stanton Velasco MD Work Phone: [facility] 11-02-2023 11:03-0400 Heart rate 78 /min Stanton Velasco MD Work Phone: [facility] 11-02-2023 11:03-0400 SaO2% (BldA) [Mass fraction] 94 % Stanton Velasco MD Work Phone: [facility] 11-02-2023 11:03-0400 Systolic blood pressure 128 mm[Hg] Stanton Velasco MD Work Phone: [facility] 07-05-2023 09:41-0400 Body height 176.5 cm Pacc 1 Work Phone: [facility] 07-05-2023 09:41-0400 Body mass index (BMI) [Ratio] 32.73 kg/m2 Pacc 1 Work Phone: [facility] 07-05-2023 09:41-0400 Body temperature 97.9 [degF] Pacc 1 Work Phone: [facility] 07-05-2023 09:41-0400 Body weight 102 kg Pacc 1 Work Phone: [facility] 07-05-2023 09:41-0400 Diastolic blood pressure 70 mm[Hg] Pacc 1 Work Phone: [facility] 07-05-2023 09:41-0400 Heart rate 65 /min Pacc 1 Work Phone: [facility] 07-05-2023 09:41-0400 Respiratory rate 16 /min Pacc 1 Work Phone: [facility] 07-05-2023 09:41-0400 SaO2% (BldA) [Mass fraction] 97 % Pacc 1 Work Phone: [facility] 07-05-2023 09:41-0400 Systolic blood pressure 124 mm[Hg] Pacc 1 Work Phone: [facility] 06-20-2023 10:19-0400 Diastolic blood pressure 70 mm[Hg] Louie Salomon MD Work Phone: [facility] 06-20-2023 10:19-0400 Heart rate 64 /min Louie Salomon MD Work Phone: [facility] 06-20-2023 10:19-0400 Systolic blood pressure 128 mm[Hg] Louie Salomon MD Work Phone: [facility] 06-04-2023 11:39-0400 Body temperature 97.3 [degF] Milo Ramos MD Work Phone: [facility] 06-04-2023 11:39-0400 Diastolic blood pressure 63 mm[Hg] Milo Ramos MD Work Phone: [facility] 06-04-2023 11:39-0400 Heart rate 61 /min Milo Ramos MD Work Phone: [facility] 06-04-2023 11:39-0400 Systolic blood pressure 120 mm[Hg] Milo Ramos MD Work Phone: [facility] Encounters Encounter Date Encounter Type Care Provider Facility Start: 04-03-2024 End: 04-03-2024 Bamboo flowsheet Christina FU Work Phone: [facility] Start: 04-03-2024 End: 04-03-2024 Bamboo flowsheet Christina Perla PA Work Phone: [facility] Start: 04-03-2024 End: 04-03-2024 Office outpatient visit 25 minutes Christina Perla PA Work Phone: [facility] Comment on above: Chronic idiopathic c onstipation (Primary Dx) Start: 04-03-2024 End: 04-03-2024 ambulatory CHRISTINA PERLA Not Available Start: 03-17-2024 End: 03-17-2024 Telephone encounter Fady Dye MD Work Phone: Urology Start: 03-07-2024 End: 03-07-2024 Office outpatient visit 25 minutes Stanton Velasco MD Work Phone: [facility] Comment on above: Benign essential hyp ertension (CMS/HCC) (Primary Dx); Pulmonary granuloma of histoplasmosis (HCC) (CMS/HCC); Dyslipidemia (CMS/HCC); Allergic rhinitis, unspecified seasonality, unspecified trigger Start: 03-07-2024 End: 03-07-2024 ambulatory STANTON VELASCO Not Available Start: 02-26-2024 End: 02-26-2024 ambulatory CHRIS CLEMENTS Facility:[facility] Start: 02-25-2024 End: 02-28-2024 Telephone encounter Fady Dye MD Work Phone: Urology Comment on above: Fax Received - [facility] Start: 02-22-2024 End: 02-22-2024 Telephone encounter Fady Dye MD Work Phone: Urology Comment on above: [employer] Start: 02-18-2024 End: 02-19-2024 Telephone encounter Fady Dye MD Work Phone: Urology Comment on above: Orders Start: 02-18-2024 End: 02-18-2024 ambulatory Fady Dye MD Work Phone: Urology Comment on above: Inguinal hernia with out obstruction or gangrene, recurrence not specified, unspecified laterality (Primary Dx); Overactive bladder; Incomplete bladder emptying Start: 02-18-2024 End: 02-18-2024 Telemedicine consultation with patient Fady Dye MD Work Phone: Urology Start: 02-15-2024 End: 02-15-2024 Bamboo flowsheet Stanton Velasco MD Work Phone: [facility] Start: 02-15-2024 End: 02-15-2024 Bamboo flowsheet Stanton Velasco MD Work Phone: [facility] Start: 02-15-2024 End: 02-15-2024 Assay of hemosiderin, quant Stanton Velasco MD Work Phone: [facility] Start: 02-15-2024 End: 02-15-2024 Patient encounter procedure Stanton Velasco MD Work Phone: [facility] Comment on above: Routine general medi deonte examination at health care facility (Primary Dx); ACP (advance care planning); Atherosclerosis of yocha dehe coronary artery of yocha dehe heart without angina pectoris (CMS/HCC); Benign essential hypertension (CMS/HCC); Raynaud's syndrome without gangrene; Chronic ischemic heart disease (CMS/HCC); Dyslipidemia (CMS/HCC); Chronic knee pain after total replacement of right knee joint; Presence of shoulder joint prosthesis; Primary osteoarthritis of both hips; Multiple nodules of lung; History of lumbar fusion; Prostate cancer screening; Acute sinusitis, recurrence not specified, unspecified location Start: 02-15-2024 End: 02-15-2024 ambulatory STANTON VELASCO Not Available Start: 01-25-2024 End: 01-25-2024 ambulatory Suzanna Macdonald Facility:[facility] Start: 01-17-2024 End: 01-17-2024 ambulatory FADY DYE Facility:[facility] Start: 01-17-2024 End: 01-17-2024 Patient encounter procedure Fady Dye MD Work Phone: Urology Comment on above: Urinary frequency (P rimary Dx); Urgency of urination; Incomplete bladder emptying Start: 12-14-2023 End: 12-14-2023 Refill Daija Lares PA-C Work Phone: Urology Comment on above: Results Start: 12-13-2023 End: 12-13-2023 ambulatory Fela Teran LPN Urology Start: 12-12-2023 End: 12-14-2023 Clinisync Result Encounter Generic External Data Provider [facility] Department Unsolicited Start: 12-12-2023 End: 12-14-2023 Clinisync Result Encounter Generic External Data Provider [facility] External Department Unsolicited Start: 12-12-2023 End: 12-12-2023 Patient encounter procedure Louie Salomon MD Work Phone: Urology Comment on above: Urinary urgency (Lizeth fela Dx); Obesity, Class I, BMI 30-34.9; Overactive bladder; Urinary retention; 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 stricture; Self-catheterizes urinary bladder Start: 12-12-2023 End: 12-12-2023 ambulatory LOUIE SALOMON Facility:[facility] Start: 11-13-2023 End: 11-13-2023 Telephone encounter Louie Salomon MD Work Phone: Urology Comment on above: Patient Update Start: 11-02-2023 End: 11-02-2023 Bamboo flowsheet Stanton Velasco MD Work Phone: [facility] Start: 11-02-2023 End: 11-02-2023 Bamboo flowsheet Stanton Velasco MD Work Phone: [facility] Start: 11-02-2023 End: 11-02-2023 Office outpatient visit 25 minutes Stanton Velasco MD Work Phone: [facility] Comment on above: Chronic idiopathic c onstipation (Primary Dx); 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; Excessive sweating Start: 11-02-2023 End: 11-02-2023 ambulatory STANTON VELASCO Not Available Start: 09-11-2023 Telephone encounter Louie Perales MD Work Phone: Urology Start: 08-31-2023 Telephone encounter Louie Perales MD Work Phone: Urology Start: 08-31-2023 End: 08-31-2023 ambulatory LOUIE SALOMON Facility:[facility] Start: 08-31-2023 End: 08-31-2023 Nursing evaluation of patient and report [facility] Urology Comment on above: Urinary retention (P rimary Dx) Start: 08-17-2023 Refill Daija Octavia PA-C Work Phone: Urology Comment on above: Refill Request Start: 08-15-2023 End: 08-15-2023 Orders Only Daija Octavia PA-C Work Phone: Urology Comment on above: Dysuria (Primary Dx) Returning Patient's Call Start: 08-09-2023 Telephone encounter Fifi stanley APRN.CNP Work Phone: Urology Start: 08-02-2023 End: 08-02-2023 ambulatory STANTON VELASCO Facility:[facility] Start: 07-11-2023 Telephone encounter Louie Perales MD Work Phone: Urology Start: 07-05-2023 End: 07-05-2023 Admission to establishment [facility] [place] [facility] Work Phone: Pre Anesthesia Start: 07-05-2023 End: 07-05-2023 Anesthesia consultation [facility] [place] [facility] Work Phone: Pre Anesthesia Comment on above: Pre-op evaluation (P rimary Dx); Coronary artery disease involving yocha dehe coronary artery of yocha dehe heart without angina pectoris; Mixed hyperlipidemia; Essential hypertension; Urge incontinence; Cervical spondylosis with myelopathy; Obesity, Class I, BMI 30-34.9 Start: 07-05-2023 End: 07-05-2023 Preprocedural examination done [facility] [place] 1 Work Phone: [facility] Work Phone: Start: 07-05-2023 End: 07-05-2023 ambulatory LOUIE SALOMON Facility:[facility] Start: 06-28-2023 End: 06-28-2023 ambulatory LOUIE RAINES Not Available Start: 06-20-2023 End: 06-20-2023 Patient encounter procedure Louie Salomon MD Work Phone: Urology Comment on above: 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, unspecified stricture type (Primary Dx); Urinary urgency; Low bladder compliance; Urinary frequency Start: 06-20-2023 End: 06-20-2023 ambulatory STANTON VELASCO Facility:[facility] Start: 06-11-2023 End: 06-11-2023 ambulatory [facility] Start: 06-10-2023 Telephone encounter Milo Ramos MD Work Phone: Urology Comment on above: Patient Update Start: 06-08-2023 End: 06-08-2023 ambulatory STANTON Kerry VELASCO Facility:[facility] Start: 06-08-2023 End: 06-08-2023 Patient encounter procedure Nurse [facility] Work Phone: Urology Comment on above: 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, unspecified stricture type (Primary Dx); Post-traumatic stricture of anterior urethra; Self-catheterizes urinary bladder Start: 06-08-2023 Telephone encounter Milo Ramos MD Work Phone: Urology Start: 06-07-2023 Telephone encounter Milo Ramos MD Work Phone: Urology Start: 06-06-2023 Telephone encounter Milo Ramos MD Work Phone: Internal Medicine Comment on above: Medication Question Start: 06-04-2023 End: 06-04-2023 ambulatory MILO RAMOS Facility:[facility] Start: 06-04-2023 End: 06-04-2023 Patient encounter procedure Milo Ramos MD Work Phone: Urology Comment on above: Screening for genito urinary condition (Primary Dx) Start: 05-23-2023 End: 05-23-2023 ambulatory CHRISTINA PERLA Not Available Start: 05-23-2023 End: 05-23-2023 ambulatory CHRISTINA PERLA Not Available Start: 05-22-2023 Refill Nehemiah vázquez PA-C Work Phone: Orthopaedics Comment on above: Refill Request Start: 05-15-2023 End: 05-15-2023 ambulatory NITHYA HORNER Facility:[facility] Start: 05-15-2023 End: 05-15-2023 Patient encounter procedure Nithya Horner PA-C Work Phone: Urology Comment on above: Stricture of urethra l meatus in male, unspecified stricture type (Primary Dx) Start: 06-23-2022 ambulatory Kirstin Echeverria RT(R) Rebecca key Comment on above: Radiology XR Start: 06-23-2022 End: 06-23-2022 Patient encounter procedure Kirstin Echeverria RT(R) CCSylvie JACOME [facility] Comment on above: Rotator cuff dysfunc tion, left (Primary Dx); History of failed repair of rotator cuff; Left shoulder pain, unspecified chronicity Start: 06-23-2022 End: 06-23-2022 Subsequent hospital visit by physician Georgina Gonzalez 1 Work Phone: Radiology Comment on above: Left shoulder pain, unspecified chronicity [M25.512] Start: 06-07-2022 End: 06-08-[address] TAMANNA JOSHUA Facility:[facility] Start: 05-31-2022 End: 05-31-2022 Patient encounter procedure Milo Ramos MD Work Phone: Urology Comment on above: Screening for genito urinary condition (Primary Dx); Stricture of male urethra, unspecified stricture type Start: 05-19-2022 End: 05-20-[address] STANTON VELASCO Facility:[facility] Start: 04-25-2022 End: 04-25-2022 Patient encounter procedure Nithya Horner PA-C Work Phone: Urology Comment on above: 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, unspecified stricture type (Primary Dx); Urinary urgency Start: 04-14-2022 End: 04-15-[address] STANTON VELASCO Facility:[facility] Start: 04-14-2022 End: 04-15-[address] DOCTOR RICHMOND Facility:[facility] Start: 03-23-2022 End: 03-23-[address] TRACIE TELLEZ . Facility:[facility] Start: 11-15-2021 End: 11-15-2021 Patient encounter procedure Kev Ferrell MD Work Phone: Orthopaedics Comment on above: Chronic knee pain af ter total replacement of right knee joint (Primary Dx) Start: 11-15-2021 End: 11-15-2021 Subsequent hospital visit by physician Georgina Gonzalez 1 Work Phone: Radiology Comment on above: Chronic knee pain af ter total replacement of right knee joint [M25.561, G89.29, Z96.651] Start: 11-08-2021 End: 11-08-2021 Patient encounter procedure Kev Ferrell MD Work Phone: Orthopaedics Comment on above: S/P reverse total sh oulder arthroplasty, right (Primary Dx) Start: 11-08-2021 End: 11-08-2021 Subsequent hospital visit by physician Georgina Gonzalez 1 Work Phone: Radiology Comment on above: S/P reverse total sh oulder arthroplasty, right [Z96.611] Start: 11-07-2021 Telephone encounter Nurse Urol Dean brown [facility] Comment on above: Appointment Start: 10-31-2021 Telephone encounter Fady romano MD Work Phone: Urology Comment on above: Orders Start: 10-13-[address] WATSON CENTENO Facility:[facility] Start: 07-15-2021 End: 07-16-[address] STANTON VELASCO Facility:[facility] Start: 06-23-2021 Telephone encounter Fady romano MD Work Phone: Urology Comment on above: request for cath sup plies Start: 06-16-2021 ambulatory No Pcp Antony Flores Start: 06-14-2021 End: 06-14-2021 Patient encounter procedure Kev Ferrell MD Work Phone: Orthopaedics Comment on above: S/P reverse total sh oulder arthroplasty, right (Primary Dx) Start: 06-07-2021 End: 06-07-2021 Patient encounter procedure KUSHAL Velasco Work Phone: [facility] Start: 05-24-2021 ambulatory Migdalia Patterson RT(R) Rebecca key Comment on above: Radiology XR Start: 05-24-2021 End: 05-24-2021 Patient encounter procedure Migdalia Patterson RT(R) ROBERTO JACOME Comment on above: S/P reverse total sh oulder arthroplasty, right (Primary Dx) Start: 05-24-2021 End: 05-24-2021 Subsequent hospital visit by physician Georgina Gonzalez 1 Work Phone: Radiology Comment on above: Nontraumatic complet e tear of right rotator cuff [M75.121] Start: 05-16-2021 Orders Only Vivien Fuller [facility]edics Comment on above: Nontraumatic complet e tear of right rotator cuff (Primary Dx) Start: 05-09-2021 Telephone encounter Kev valencia MD Work Phone: Orthopaedics Comment on above: Patient Question Start: 04-12-2021 End: 05-23-2023 Preprocedural examination done Kev Ferrell MD Work Phone: [facility] Work Phone: Start: 04-12-2021 Encounter for other preprocedural examination LOUIE SALOMON [facility] Start: 01-04-2021 End: 01-04-2021 Subsequent hospital visit by physician [facility] Work Phone: Radiology Comment on above: Nontraumatic complet e tear of right rotator cuff [M75.121] Start: 12-21-2020 End: 12-21-2020 Subsequent hospital visit by physician Georgina Gonzalez 1 Work Phone: Radiology Comment on above: Right shoulder pain, unspecified chronicity [M25.511] Start: 08-10-2020 End: 08-10-2020 Subsequent hospital visit by physician Mri [facility] (1.5t) Work Phone: Radiology Comment on above: Nontraumatic tear of right rotator cuff, unspecified tear extent [M75.101] Start: 06-29-2020 End: 06-29-2020 Subsequent hospital visit by physician [facility] Work Phone: Radiology Comment on above: History of lumbar fu sendy [Z98.1] Start: 04-15-2020 End: 04-15-2020 Subsequent hospital visit by physician Georgina Gonzalez 1 Work Phone: Radiology Comment on above: Pain in right hip [M 25.551] Start: 10-14-2019 End: 10-15-2019 Patient encounter procedure BOZENA DOMINGO Facility:[facility] Start: 05-04-2017 End: 05-23-2023 Patient encounter status Kev Ferrell MD Work Phone: [facility] Work Phone: Start: 08-14-2016 End: 08-15-2016 Ambulatory David VázquezUna Gerardo [facility] Procedures Date Procedure Procedure Detail Performing Clinician Start: 12-12-2023 [facility] BACTERIA UR CULT Generic External Da ta Provider Start: 12-12-2023 Urnls dip stick/tablet rgnt auto w/o microscopy Louie Salomon MD Work Phone: Start: 06-04-2023 Urnls dip stick/tablet rgnt auto w/o microscopy Milo Ramos MD Work Phone: Start: 04-06-2023 Lipid 1996 panel - Serum or Plasma Nithya Horner PA-C Work Phone: Start: 04-04-2023 Colonoscopy Stanton Velasco MD Work Phone: Start: 08-21-2022 History of operative procedure on knee History of right knee joint replacement Stanton Velasco MD Work Phone: Start: 06-23-2022 Radex shoulder complete minimum 2 views Nehemiah Gilbert PA-C Work Phone: Start: 05-31-2022 Urnls dip stick/tablet rgnt auto w/o microscopy Milo Ramos MD Work Phone: Start: 11-15-2021 Radiologic examination knee 3 views Kev Ferrell MD Work Phone: Start: 11-08-2021 Radex shoulder complete minimum 2 views Nehemiah Radha PA-C Work Phone: Start: 10-12-2021 Colonoscopy Nithya Tayloribel PA-C Work Phone: Start: 06-07-2021 Urine culture II Stanton Velasco Work Phone: Start: 05-24-2021 Radex shoulder complete minimum 2 views Nehemiah Radha PA-C Work Phone: Start: 05-04-2021 End: 05-23-2023 H/O: artificial joint Aftercare following joint replacement surgery Stanton Velasco MD Work Phone: Start: 12-21-2020 Radex shoulder complete minimum 2 views Nehemiah Radha PA-C Work Phone: Start: 08-10-2020 Mri any jt upper extremity w/o contrast matrl Stanton Kirkland PA-C Work Phone: Start: 06-29-2020 Ct lumbar spine w/o contrast material Himanshu Barba MD Work Phone: Start: 04-15-2020 Radex hip unilateral with pelvis 2-3 views Chris Espinoza MD Work Phone: Start: 05-29-2018 Adult depression screening assessment Kev Ferrell MD Work Phone: History of repair of musculotendinous cuff of shoulder History of failed repair of rotator cuff Nehemiah Radha PA-C Work Phone: Plan of Treatment Date Care Activity Detail Author Start: 04-04-2033 Screening for malignant neoplasm of colon [facility] Start: 09-09-2031 Urine microalbumin profile DTaP,Tdap,Td Vaccine (3 - Td or Tdap) [facility] Start: 04-06-2028 Lipid panel Lipid Screening [facility] Start: 07-04-2026 Diabetes Screening Diabetes Screening [facility] Start: 02-25-2025 BP Controlled (<130/80) BP Controlled (<130/80) [facility] in Start: 02-14-2025 Medicare Annual Wellness (AWV) Medicare Annual Wellness (AWV) [facility] Start: 07-04-2024 BP Controlled (<130/80) BP Controlled (<130/80) [facility] Start: 06-19-2024 BP Controlled (<130/80) BP Controlled (<130/80) [facility] Start: 06-03-2024 BP Controlled (<130/80) BP Controlled (<130/80) [facility] Start: 05-22-2024 Medicare Annual Wellness (AWV) Medicare Annual Wellness (AWV) [facility] Start: 04-12-2024 DIABETES SCREEN DIABETES SCREEN [facility] Start: 04-12-2024 Diabetes Screening Diabetes Screening [facility] Start: 04-11-2024 End: 04-11-2024 Patient encounter procedure 04/11/2024 1:30 PM EST Office Visit General Surgery [address] [place] [address] [place] [address] [place] [address] Inguinal hernia without obstruction or gangrene, recurrence not specified, unspe... General Surgery Comment on above: Inguinal hernia without obstruction or g angrene, recurrence not specified, unspe... Start: 04-06-2024 Hepatitis B surface antibody level LDL Cholesterol [facility] Start: 04-03-2024 End: 04-03-2024 Patient encounter procedure 04/03/2024 11:30 AM EST Office Visit [facility] [address] [facility] [address] [place] [id number] Christina Perla PA [address] [facility] [address] [place] [address] Arrived [facility] Comment on above: Arrived Start: 02-26-2024 End: 02-26-2024 Patient encounter procedure 02/26/2024 1:45 PM EST Office Visit General Surgery [address] [place] [address] [place] [address] [place] [address] Inguinal hernia without obstruction or gangrene, recurrence not specified, unspe... General Surgery Comment on above: Inguinal hernia without obstruction or g angrene, recurrence not specified, unspe... Start: 02-22-2024 End: 02-22-2024 Patient encounter procedure 02/22/2024 1:45 PM EST Office Visit General Surgery [address] [place] [address] [place] [address] [place], [place] [id number] Inguinal hernia without obstruction or gangrene, recurrence not specified, unspe... General Surgery Comment on above: Inguinal hernia without obstruction or g angrene, recurrence not specified, unspe... 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 (CMS/HCC) Expected: 02/15/2024 (Approximate), Expires: 02/14/2025 [facility] Comment on above: Expected: 02/15/2024 (Approximate), Expi res: 02/14/2025 Start: 02-15-2024 End: 02-14-2025 Lipid 1996 panel - Serum or Plasma Lipid panel Lab Routine Atherosclerosis of yocha dehe coronary artery of yocha dehe heart without angina pectoris (CMS/HCC) Dyslipidemia (CMS/HCC) Expected: 02/15/2024 (Approximate), Expires: 02/14/2025 [facility] Comment on above: Expected: 02/15/2024 (Approximate), Expi res: 02/14/2025 Start: 02-15-2024 End: 02-15-2024 Patient encounter procedure 02/15/2024 9:30 AM EST Office Visit [facility] [address] [facility] [address] [place] [id number] Stnaton Velasco MD [address] [facility] [address] [place] [address] Arrived [facility] Comment on above: Arrived Start: 02-13-2024 Advance Directive Discussion Advance Directive Discussion [facility] Start: 01-17-2024 End: 01-17-2024 Patient encounter procedure 01/17/2024 2:00 PM EST Office Visit Urology [address] [place] [address] Fady Dye MD [address] [place] [address] NEW UROLOGY euromodulation for overactive bladder referred by Dr Aki raines Urology Comment on above: NEW UROLOGY euromodulation for overactiv e bladder referred by Dr Aki raines Start: 12-12-2023 End: 12-12-2023 Patient encounter procedure 12/12/2023 1:30 PM EDT Office Visit Urology [address] [place] [address] Louie Salomon MD [address] [place] [address] follow up Urology Comment on above: follow up Start: 11-02-2023 End: 11-02-2023 Patient encounter procedure 11/02/2023 11:30 AM EDT Office Visit [facility] [address] [facility] [address] [place] [address] Stanton Velasco MD [address] [facility] [address] [place] [address] Arrived [facility] Comment on above: Arrived Start: 10-14-2023 Covid-19 Vaccine ( season) Covid-19 Vaccine ( season) [facility] Start: 10-14-2023 Influenza vaccination Influenza Vaccine (#[facility]) [facility] Start: 09-05-2023 RSV Vaccine (1 - 1-dose 75+ series) RSV Vaccine (1 - 1-dose 75+ series) [facility] Start: 08-31-2023 End: 08-31-2023 Nursing evaluation of patient and report 08/31/2023 11:00 AM EDT Nurse Visit Urology [address] [address] [facility] [address] [place] [address] [facility]DS Urology Comment on above: UDS Start: 08-15-2023 End: 11-14-2023 Bacteria identified in Urine by Culture [facility] Comment on above: Expected: 08/15/2023, Expires: Start: 08-15-2023 End: 11-14-2023 Urinalysis complete panel - Urine [facility] Work Phone: Comment on above: Expected: 08/15/2023, Expires: Start: 08-02-2023 End: 08-02-2023 Admission to same day surgery center 08/02/2023 8:45 AM EDT - 08/02/2023 10:00 AM EDT Surgery [facility] [address] [place] [address] Louie Salomon MD [address] [place] [address] DILATION OF URETHRAL STRICTURE BY PASSAGE OF SOUND OR URETHRAL DILATOR, MALE; INITIAL [facility] Comment on above: DILATION OF URETHRAL STRICTURE BY PASSAG E OF SOUND OR URETHRAL DILATOR, MALE; INITIAL Start: 08-02-2023 End: 08-02-2023 Cystourethroscopy inj chemodenervation bladder CYSTOURETHROSCOPY W/INJECTION(S) FOR CHEMODENERVATION OF THE BLADDER 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 stricture Overactive bladder 08/02/2023 8:45 AM EDT [facility] Start: 08-02-2023 End: 08-02-2023 Dilat urethral strix dilator male 1st DILATION OF URETHRAL STRICTURE BY PASSAGE OF SOUND OR URETHRAL DILATOR, MALE; INITIAL 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 stricture Overactive bladder 08/02/2023 8:45 AM EDT [facility] Start: 08-02-2023 Subsequent hospital visit by physician 08/02/2023 8:45 AM EDT Hospital Encounter [facility] [address] [place] [address] Louie Salomon MD [address] [place] [address] 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 stricture [N99.114] [facility] Comment on above: 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 stricture [ N99.114] Start: 06-20-2023 End: 06-20-2023 Patient encounter procedure 06/20/2023 10:30 AM EDT Office Visit Urology [address] [place] [address] Louie Salomon MD [address] [place] [address] ramos Urology Comment on above: ref by dr ramos Start: 06-08-2023 End: 06-08-2023 Patient encounter procedure Urology Comment on above: cath removal (does ISC) cath removal (does I SC); possible UC with str. cath; pt. needs 16fr. samples as he only has 14fr at home Start: 04-12-2023 Covid-19 Vaccine ( season) Covid-19 Vaccine ( season) [facility] Start: 02-12-2023 Advance Directive Discussion Advance Directive Discussion [facility] Start: 02-12-2023 Behavioral Health Screening Behavioral Health Screening [facility] Start: 02-12-2023 Depression Assessment Depression Assessment [facility] Start: 10-13-2022 Influenza vaccination INFLUENZA (#1) [facility] Start: 10-12-2022 Screening for malignant neoplasm of colon [facility] Start: 03-20-2022 COVID-19 VACCINE (6 - Moderna series) COVID-19 VACCINE (6 - Moderna series) [facility] Start: 02-12-2022 ADVANCE DIRECTIVE DISCUSSION ADVANCE DIRECTIVE DISCUSSION [facility] Start: 02-12-2022 DEPRESSION ASSESSMENT DEPRESSION ASSESSMENT [facility] Start: 10-13-2021 Influenza vaccination INFLUENZA (#1) [facility] Start: 10-07-2021 COVID-19 VACCINE (5 - Booster for Moderna series) COVID-19 VACCINE (5 - Booster for Moderna series) [facility] Start: 04-13-2021 COVID-19 VACCINE (4 - Booster for Moderna series) COVID-19 VACCINE (4 - Booster for Moderna series) [facility] Start: 02-12-2021 ADVANCE DIRECTIVE DISCUSSION ADVANCE DIRECTIVE DISCUSSION [facility] Start: 02-12-2021 DEPRESSION ASSESSMENT DEPRESSION ASSESSMENT [facility] Start: 02-08-2021 COVID-19 VACCINE (4 - Booster for Moderna series) COVID-19 VACCINE (4 - Booster for Moderna series) [facility] Start: 05-30-2019 Adult depression screening assessment DEPRESSION SCREENING [facility] Start: 11-12-2018 PNEUMOCOCCAL: 65+ (2 - PCV) PNEUMOCOCCAL: 65+ (2 - PCV) [facility] Start: 2008 RSV Vaccine (1 - 1-dose 60+ series) RSV Vaccine (1 - 1-dose 60+ series) [facility] Start: 1993 COLOGUARD (FIT-DNA) COLOGUARD (FIT-DNA) [facility] Start: 1993 Colonoscopy COLONOSCOPY [facility] Start: 1993 COLORECTAL CANCER SCREENING COLORECTAL CANCER SCREENING [facility] [facility] Start: [address] COLONOGRAPHY [facility] Start: 1993 FECAL OCCULT BLOOD FECAL OCCULT BLOOD [facility] Start: 1993 Screening for malignant neoplasm of colon [facility] Start: 1993 SIGMOIDOSCOPY SIGMOIDOSCOPY [facility] Start: 09-05-1983 LIPID SCREEN LIPID SCREEN [facility] Start: 09-05-1967 Urine microalbumin profile DTAP,TDAP,TD (1 - Tdap) [facility] Start: 1966 ANNUAL PCP TEAM CHRONIC DISEASE VISIT ANNUAL PCP TEAM CHRONIC DISEASE VISIT [facility] Start: 1966 Anxiety Screening Anxiety Screening [facility] Start: 1966 BP CONTROLLED (<130/80) BP CONTROLLED (<130/80) [facility] Start: 1966 Depression Screening Depression Screening [facility] Start: 1966 Hepatitis B surface antibody level LDL CHOLESTEROL [facility] Start: 1966 HEPATITIS C SCREENING HEPATITIS C SCREENING [facility] Start: 1966 Hepatitis C screening Hepatitis C Screening [facility] Start: 1948 ABDOMINAL AORTIC ANEURYSM SCREENING ABDOMINAL AORTIC ANEURYSM SCREENING [facility] Start: 1948 Abdominal aortic aneurysm screening Abdominal Aortic Aneurysm Screening [facility] Start: 1948 Screening for malignant neoplasm of colon [facility] Bacteria identified in Urine by Culture [facility] Work Phone: Bacteria identified in Urine by Culture URINE CULTURE Microbiology Routine Stricture of male urethra, unspecified stricture type Self-catheterizes urinary bladder 06/08/2023 3:38 PM EDT [facility] Work Phone: Bacteria identified in Urine by Culture URINE CULTURE Microbiology Routine Urinary urgency 12/12/2023 1:56 PM EDT [facility] Work Phone: CBC W Auto Different ial panel - Blood CBC and differential Lab Routine Atherosclerosis of [place] coronary artery of [place] heart without angina pectoris (CMS/HCC) Ordered: 02/15/2024 [employer] Work Phone: Comment on above: Ordered: 02/15/2024 CT Chest WO contrast CT chest wo IV contrast Imaging Routine Multiple nodules of lung Ordered: 02/15/2024 [employer] Comment on above: Ordered: 02/15/2024 CYSTO DIAGNOSTIC [facility] DIAGNOSTI C Procedures Routine Stricture of male urethra, unspecified stricture type 1 Occurrences starting 04/25/2022 [facility] Work Phone: Comment on above: 1 Occurrences starting 04/25/2022 CYSTO DIAGNOSTIC CYSTO DIAGNOSTI C Procedures Routine Stricture of urethral meatus in male, unspecified stricture type Ordered: 05/15/2023 [facility] Work Phone: Comment on above: Ordered: 05/15/2023 Cystourethroscopy CYSTO.PANENDO Procedures Routine Urinary retention Self-catheterizes urinary bladder Benign prostatic hyperplasia with weak urinary stream 1 Occurrences starting 10/31/2021 [facility] Work Phone: Comment on above: 1 Occurrences starting 10/31/2021 PERIPHERAL NERVE EVALUATION (PNE) PERIPHERAL NERVE EVALUATION (PNE) Procedures Routine Overactive bladder Incomplete bladder emptying Ordered: 02/18/2024 [facility] Work Phone: Comment on above: Ordered: 02/18/2024 Prostate specific Ag [Mass/volume] in Serum or Plasma PSA Lab Routine Prostate cancer screening Ordered: 02/15/2024 [employer] Comment on above: Ordered: 02/15/2024 End: 07-20-2024 US Kidney - bilateral and Urinary bladder US KIDNEY/BLADDER Radiology Routine Stricture of male urethra, unspecified stricture type Urinary urgency 1 Occurrences starting 06/20/2023 until 07/20/2024 [facility] Work Phone: Comment on above: 1 Occurrences starting 06/20/2023 until 07/20/2024 End: 12-10-2022 XR KNEE POST OP 3V AP/LAT/MERCHANT RIGHT XR KNEE POST OP 3V AP/LAT/MERCHANT RIGHT Radiology Routine Chronic knee pain after total replacement of right knee joint 1 Occurrences starting 11/11/2021 until 12/10/2022 [facility] Work Phone: Comment on above: 1 Occurrences starting 11/11/2021 until 12/10/2022 XR KNEE POST OP 3V AP/LAT/MERCHANT RIGHT XR KNEE POST OP 3V AP/LAT/MERCHANT RIGHT Radiology Routine Chronic knee pain after total replacement of right knee joint 11/15/2021 2:22 PM EDT [facility] Work Phone: End: 06-15-2022 XR SHOULDER GENERAL 3V OR MORE AP/TRUE AP/OTHER RIGHT XR SHOULDER GENERAL 3V OR MORE AP/TRUE AP/OTHER RIGHT Radiology Routine Nontraumatic complete tear of right rotator cuff 1 Occurrences starting 05/16/2021 until 06/15/2022 [facility] Work Phone: Comment on above: 1 Occurrences starting 05/16/2021 until 06/15/2022 [facility] Immunizations Immunization Date Immunization Notes Care Provider Fa [facility] 02-20-2024 ABRYSVO - Respirator y syncytial virus (RSV), vaccine, bivalent, protein subunit RSV prefusion F, diluent reconstituted, 0.5 mL, PF Christina FU Work Phone: [facility] 11-12-2023 influenza, high dose seasonal, preservative-free Stanton Velasco MD Work Phone: [facility] 12-12-2022 SARS-COV-2 (COVID-19 ) vaccine, mRNA, spike protein, LNP, PF, 50 mcg/0.5 mL Stanton Velasco MD Work Phone: [facility] 11-09-2022 Influenza, High-dose Seasonal, Quadrivalent, Preservative Free Stanton Velasco MD Work Phone: [facility] 11-09-2022 influenza virus vacc ine, unspecified formulation Daija Lares PA-C Work Phone: [facility] 11-17-2021 Influenza, High-dose Seasonal, Quadrivalent, Preservative Free Stanton Velasco MD Work Phone: [facility] 11-17-2021 Moderna Bivalent Hayes ster Vaccination Stanton Velasco MD Work Phone: [facility] 09-08-2021 Pneumococcal Conjuga te PCV 20 Stanton Velasco MD Work Phone: [facility] 09-08-2021 tetanus toxoid, redu nurys diphtheria toxoid, and acellular pertussis vaccine, adsorbed Stanton Velasco MD Work Phone: [facility] 05-11-2021 tuberculin skin test ; purified protein derivative solution, intradermal Stanton Velasco MD Work Phone: [facility] 05-04-2021 tuberculin skin test ; purified protein derivative solution, intradermal Stanton Velasco MD Work Phone: [facility] 12-14-2020 Rocio SARS-CoV-2 Stanton mcconnell MD Work Phone: [facility] 11-16-2020 influenza, high-dose , quadrivalent vaccine (FLUZONE HIGH DOSE QUADRIVALENT) Kev Ferrell MD Work Phone: [facility] 11-16-2020 zoster vaccine recombinant Kev Ferrell MD Work Phone: [facility] 11-16-2020 zoster vaccine, live Stanton Velasco MD Work Phone: [facility] 06-23-2020 zoster vaccine recombinant Kev Ferrell MD Work Phone: [facility] 06-23-2020 zoster vaccine, live Stanton Velasco MD Work Phone: [facility] 05-05-2020 Rocio SARS-CoV-2 Stanton mcconnell MD Work Phone: [facility] 04-08-2020 Rocio SARS-CoV-2 Stanton mcconnell MD Work Phone: [facility] 12-16-2019 influenza, high dose seasonal, preservative-free Kev Ferrell MD Work Phone: [facility] 11-07-2019 influenza, high-dose , quadrivalent vaccine (FLUZONE HIGH DOSE QUADRIVALENT) Kev Ferrell MD Work Phone: [facility] 10-31-2018 influenza, high dose seasonal, preservative-free Kev Ferrell MD Work Phone: [facility] 07-04-2018 tetanus toxoid, redu nurys diphtheria toxoid, and acellular pertussis vaccine, adsorbed Stanton Velasco MD Work Phone: [facility] 07-04-2018 zoster vaccine recombinant Stanton Velasco MD Work Phone: [facility] 12-28-2017 zoster vaccine recombinant Stanton Velasco MD Work Phone: [facility] 12-20-2017 influenza, high dose seasonal, preservative-free Kev Ferrell MD Work Phone: [facility] 11-12-2017 pneumococcal polysaccharide vaccine, 23 valent Kev Ferrell MD Work Phone: [facility] 11-13-2014 pneumococcal conjuga te vaccine, 13 valent Stanton Velasco MD Work Phone: [facility] 09-02-2004 TD(adult) unspecifie d formulation Stanton Velasco MD Work Phone: [facility] 08-21-2003 pneumococcal vaccine , unspecified formulation Stanton Velasco MD Work Phone: [facility] Payers Date Payer Category Payer Unknown [id number] 2021 Medicare DEVOTED MEDICARE DEVOTED HEALTH [id number] 2021-[facility] [phone] [address] [place] [id number] HMO [id number] 2021 Medicare (Managed Care) 1.2. [id number] 2020 Unknown [id number] 2017 Unknown [employer] 2N D [id number] 2017-Present [phone] [address] [address] [place] [id number] Indemnity [id number] 2017 Unknown [id number]. [id number] 2017 Unknown [id number] 2016 Medicare [id number] 2015 Medicare [id number] 1959 Self-pay [id number] 1948 Unknown [id number] [id number]. 2.647 1948 Unknown [id number] 2.16840.1.442870.3.579. 2.593 1948 Unknown [id number] 2.16.840.1.850726.3.579. 2.593 1948 Unknown [id number] 2.16.840.1.024345.3.579. 2.593 1948 Unknown [id number] 2.16.840.1.784596.3.579. 2.593 1948 Unknown [id number] 2.16.840.1.477812.3.579. 2.59 1948 Unknown [id number] 2.16.840.1.536252.3.579. 2.593 1948 Unknown [id number] 2.16.840.1.690983.3.579. 2.593 1948 Unknown [id number] 2.16.840.1.001367.3.579. 2.1259 1948 Unknown [id number] 2.16.840.1.243755.3.579. 2.1259 1948 Unknown [id number] 2.16.840.1.763871.3.579. 2.1259 1948 Unknown [id number] 2.16.840.1.042519.3.579. 2.1259 1948 Unknown [id number] 2.16.840.1.059546.3.579. 2.1259 1948 Unknown [id number] 2.16.840.1.860785.3.579. 2.1259 1948 Unknown [id number] 2.16.840.1.983150.3.579. 2.1259 Private Health Insurance [id number] Unknown Self Pay [id number] Social History Date Type Detail Facility Start: 11-13-2016 End: 12-12-2023 Tobacco smoking status NHIS Ex-smoker [facility] Start: 11-14-1987 End: 11-13-1997 History of tobacco use Current smoker [facility] Start: 11-14-1987 End: 11-13-1997 History of tobacco use Cigarette Smoker [facility] Start: 11-13-2016 End: 10-20-2022 Cigarettes smoked current (pack per day) - Reported 1.25 [facility] Work Phone: Start: 11-13-2016 End: 07-06-2022 Tobacco use and exposure Smokeless tobacco non-user [facility] Start: 05-02-2021 End: 12-12-2023 Alcohol intake Current drinker of alcohol (finding) [facility] Start: 12-19-2019 History SDOH Alcohol Frequency 2 [facility] Start: 12-19-2019 History SDOH Alcohol Std Drinks 1 [facility] Start: 01-02-2019 History SDOH Alcohol Comment 2 cans of beer per year. [facility] Start: 1950 Sex Assigned At Not on file [facility] Start: 03-16-2020 End: 11-15-2021 Exposure to SARS-CoV-2 (event) Not sure [facility] Work Phone: Start: 11-06-2018 End: 07-06-2022 Tobacco smoking status NHIS Never smoked tobacco (finding) [facility] Start: 1950 Sex Assigned At Male [facility] Start: 12-19-2019 End: 10-20-2022 Alcohol Use Disorder Identification Test - Consumption [AUDIT-C] [facility] Work Phone: How often to you hav e a drink containing alcohol? Monthly or less [facility] Work Phone: How many standard dr inks containing alcohol do you have on a typical day? 1 or 2 [facility] Work Phone: How often do you hav e 6 or more drinks on 1 occasion? Never [facility] Work Phone: PHQ2 Score 0 [facility] Start: 07-19-2023 Gender identity Identifies as male gender (finding) [facility] Start: 11-02-2023 End: 04-03-2024 Alcoholic beverage intake Lifetime non-drinker (finding) [facility] Within the last year , have you been afraid of your partner or ex-partner? No [facility] Are you now , , , , never or living with a partner? [facility] Do you feel stress - tense, restless, nervous, or anxious, or unable to sleep at night because your mind is troubled all the time - these days [OSQ] Not at all [facility] (I/We) worried wheth er (my/our) food would run out before (I/we) got money to buy more. Never true [facility] Medical Equipment Procedure Code Equipment Code Equipment Origin al Text Equipment Identifier Dates Yhn-Qr-J-Kind Im plant - [id number] Start: 05-29-2017 Comment on above: Description: 11mm in line plate Eav-Xv-Q-Kind Im plant - [id number] Start: 05-29-2017 Comment on above: Description: hinge p late Prolong Rev Shou lder Prosthesis Cup 36mm +3mm Retentive Thick [id number] Start: 05-02-2021 Stem Hum 83mm 14 mm Cmprh Por - [id number] Start: 05-02-2021 Rev Shoulder Prosthesis Body 40mm +5mm Thick +0mm Taper Offset [id number] Start: 05-02-2021 Insert Triathlon 7 10mm Tibial Bearing Condylar Stabilize Sterile Knee - [id number] Start: 10-30-2018 Baseplate Triath vicenta Tritanium 7 Tibial Knee - [id number] Start: 10-30-2018 Component Tritan ium 38mm Metal 11mm Patellar Asymmetric Knee - [id number] Start: 10-30-2018 Component Triath vicenta 7 Pa Femoral Cruciate Retain Bead Knee Right - [id number] Start: 10-30-2018 Component Comprehensive Versa-Dial 36mm Standard Glenoid Glenosphere - [id number] Start: 05-02-2021 Lead Interstim 1 .27mm 3mm Space Straight 33cm Neurostimulator Inline - [id number] Start: 07-06-2017 Lead Interstim 1 .27mm 3mm Space Straight 33cm Neurostimulator Inline - [id number] Start: 07-20-2017 Plate Canopy 9mm Bone Shelf Inline Spine - [id number] Start: 05-29-2017 Baseplate Comprehensive 25mm Mini Glenoid Taper Adapter Reverse Shoulder - [id number] Start: 05-02-2021 Screw 2.2mm 6mm Bone Self Drilling - [id number] Start: 05-29-2017 Screw 2.2mm Reli dmitri Slfdrl 5mm - [id number] Start: 05-29-2017 Screw Comprehens rowena 4.75mm 3.5mm Titanium 15mm Bone Fix Angle Lock - [id number] Start: 05-02-2021 Screw Comprehens rowena 3.5mm 30mm Bone Central Hexagon Canvassing Manager 6.5mm Shoulder - [id number] Start: 05-02-2021 Screw Comprehens rowena 4.75mm 3.5mm Hexagon 20mm Bone Variable Angle Nonlock - [id number] Start: 05-02-2021 Screw Comprehens rowena 3.5mm Hexagon 20mm Bone Fix Angle Lock Reverse 4.75mm - [id number] Start: 05-02-2021 Screw Comprehens rowena 3.5mm Hexagon 30mm Bone Fix Angle Lock Reverse 4.75mm - [id number] Start: 05-02-2021 Clinical Notes 12-21-2020 to 04-03-2024 NICKIE Porter - 04/03/2024 11:30 AM ESTTelephone Encounter - Luzma Scott - 03/17/2024 9:17 AM ESTTelephone Encounter - Luzma Scott - 03/17/2024 9:17 AM ESTPatient Instructions Note Date & Type Note Facility 04-03-2024 History of Present illness Narrative Images from the original note were not included. Subjective Patient ID: Fahad Soteol is a 73 y.o. male who presents for [facility] ER follow up. Flowsheet Row Patient Outreach from 04/02/2024 in [facility] with Emelyn Hall RN Hospital Information ED, Hospital or Mcfp Facility Discharge? ED Patient has been contacted within 1 week of being seen in the ED Yes Diagnosis constipation with no evidence of obstruction Discharge Date 03/31/24 Discharged To: Home Setting Discharge Hospital [facility] Engagement Admission Date 03/31/24 Medications Discharge medications reviewed and reconciled from hospital? Yes Is the patient having any side effects they believe may be caused by any medication additions or changes? No Does the patient have all medications ordered at discharge? Yes Nursing Interventions Nurse provided patient education Prescription Comments RX: clarence hoffmannly Is the patient taking all medications as directed (includes completed medication regime)? Yes Appointments Does the patient have a primary care provider? Yes [follow up 04/03 at 1130am with Christina FU] Nursing Interventions Verified appointment date/time/provider Nursing Interventions Advised patient to keep appointment Self Management Does patient have home health? no Patient Teaching What is the patient's perception of their health status since discharge? Improving [reports he is having bowel movement but still feels constipated.] Wrap Up Wrap Up Additional Comments patient went to ER for constipation. Pt had XR acute abd done in ER showing stool in abd. pt was given 2 enemas in ER with no results. Pt given rx for zofran and golytely and pt states he has drank the gallon of golytely and has been having loose stools all night and morning but still feels like he has stool in rectum and feeling small pieces come out with bowel movements. Pt is schedule for appt tomorrow with christina FU at 1130. 04/03/2024: States he still has not had a good BM, he is getting mostly liquid that is coming out. He has been taking Docusate, Senna, Golytely, Trulance, and Dulcolax, and has still not had a BM. He does admit to some lower abdominal pain discomfort, achy pain, a little gas, and just feels like he has a lot of stool in there. Drank a bottle of water before bed last night, the only water he drank yesterday. States he got up 7 times during the night to use the restroom. The ER offered to admit the patient for observation, but he chose to go home. Do to back issues, he has trouble using suppositories or enemas. Pt states has had an increase in back pain with the constipation. Current Outpatient Medications on File Prior to Visit Medication Sig Dispense Refill Ascorbic Acid (Vitamin C) 500 MG capsule 1 (one) time each day at the same time. aspirin (Aspir-Low) 81 MG EC tablet 1 (one) time each day at the same time. cholecalciferol (Vitamin D3) 25 MCG (1000 UT) tablet 1 (one) time each day at the same time. fluticasone (Flonase) 50 MCG/ACT nasal spray Administer 1-2 sprays into each nostril in the morning. Shake gently. Before first use, prime pump. After use, clean tip and replace cap.. 16 g 3 isosorbide mononitrate ER (Imdur) 60 MG 24 hr tablet 1 (one) time each day at the same time. lisinopril 20 MG tablet 1 (one) time each day at the same time. loratadine (Claritin) 10 MG tablet Take 1 tablet (10 mg) by mouth Daily 90 tablet 3 metoprolol tartrate (Lopressor) 50 MG tablet every 12 (twelve) hours. nitroglycerin (Nitrostat) 0.4 MG SL tablet as directed Sublingual (Patient not taking: Reported on 04/03/2024) ondansetron ODT (Zofran-ODT) 4 MG disintegrating tablet Take 4 mg by mouth every 4 (four) hours if needed for nausea or vomiting plecanatide (Trulance) tablet tablet Take 3 mg by mouth Daily ON HOLD OF 04/03/2024. polyethylene glycol, PEG, 3350 (MiraLax) 17 GM/SCOOP powder as directed Orally rosuvastatin (Crestor) 40 MG tablet 1 (one) time each day at the same time. triamcinolone (Kenalog) 0.1 % cream APPLY TO THE AFFECTED AREA(S) (thin layer on neck, chest) TWICE DAILY NEEDED [DISCONTINUED] GaviLyte-G 236 g solution Take 4,000 mL by mouth 1 (one) time No current facility-administered medications on file prior to visit. I have reviewed and reconciled the history and medication list with the patient today. Allergies Allergen Reactions Bee Pollen Unknown and Swelling Bee Venom Other Reaction(s): Unknown Other Other Sneezing. Oxybutynin Other Reaction(s): Constipation Trospium Other Reaction(s): Xerostomia Social History Tobacco Use Smoking status: Never Smokeless tobacco: Never Vaping Use Vaping status: Never Used Substance Use Topics Alcohol use: Never Drug use: Never Family History Problem Relation Name Age of Onset Heart attack Mother Stroke Mother Past Medical History: Diagnosis Date CAD (coronary artery disease) ([facility]/HCC) Closed torus fracture of upper end of left fibula 08/21/2022 Complete rotator cuff tear or rupture of right shoulder, not specified as traumatic 05/04/2021 HLD (hyperlipidemia) ([facility]/HCC) HTN (hypertension) ([facility]/HCC) Myocardial infarct ([facility]/HCC) Rotator cuff tear left Past Surgical History: Procedure Laterality Date CORONARY ARTERY BYPASS GRAFT SHOULDER ARTHROSCOPY 2013 rotator cuff TRANSURETHRAL RESECTION OF PROSTATE Visit Vitals BP 108/72 Pulse 65 Resp 16 Ht 5' 10 Wt 222 lb 6.4 oz SpO2 97% BMI 31.91 kg/m Smoking Status Never BSA 2.23 m Review of Systems Constitutional: Negative for chills, fatigue and fever. Respiratory: Negative for cough, shortness of breath and wheezing. Cardiovascular: Negative for chest pain, palpitations and leg swelling. Gastrointestinal: Positive for abdominal pain and constipation. Negative for nausea and vomiting. Musculoskeletal: Positive for back pain. Skin: Negative for rash. Objective Physical Exam Constitutional: General: He is not in acute distress. Appearance: He is obese. HENT: Head: Normocephalic and atraumatic. Eyes: General: No scleral icterus. Cardiovascular: Rate and Rhythm: Normal rate and regular rhythm. Heart sounds: No murmur heard. Pulmonary: Effort: Pulmonary effort is normal. No respiratory distress. Breath sounds: Normal breath sounds. No wheezing, rhonchi or rales. Abdominal: General: Bowel sounds are increased. Tenderness: There is abdominal tenderness (In areas noted in drawing). There is no guarding. Comments: Abdomen with some fullness over lower abdomen Musculoskeletal: General: No swelling. Skin: General: Skin is warm and dry. Neurological: General: No focal deficit present. Mental Status: He is alert and oriented to person, place, and time. Psychiatric: Mood and Affect: Mood normal. Behavior: Behavior normal. Assessment/Plan Diagnoses and all orders for this visit: Chronic idiopathic constipation - linaCLOtide (Linzess) 290 MCG capsule; Take 1 capsule (290 mcg) by mouth in the morning for 16 days. Take before meals. Do not crush or chew.. Lengthy discussion with pt regarding constipation. Patient is already taking several medications for constipation without relief. He is physically unable to use enemas or suppositories at home. He is only getting liquid out at this time, no substantial BM. Will have patient hold Trulance for now and take the max dosage of Linzess, samples provided. Goal would be to have patient on Linzess 145 mcg for maintenance dosage if the medication is effective. He is not sure if [facility], but will [facility]. Encouraged pt to sip water throughout the day, aim for at least two bottles of water a day. Do not drink large amounts right before bed. Advised if he does not increase his hydration, it will continue to aggravate the constipation. Advised pt that if he has an increase in pain, is unable to have BM over the next 1-2 days, or he experiences vomiting, he is to go to the ER for re-evaluation and further treatment, possible admission. Patient voiced understanding. Follow up in about 5 months (around 08/31/2024) for Hypertension, or sooner if needed. documented in this encounter [facility] 03-17-2024 Telephone encounter Note Orders faxed to [employer] [phone] [facility] 03-17-2024 Miscellaneous Notes Orders faxed to [employer] [phone] documented in this encounter [facility] 03-07-2024 History of Present illness Narrative Images from the original note were not included. HPI Results Additional comments: Labs and ct chest Last edited by Lucy Solorio LPN on 03/07/2024 9:15 AM. Subjective Patient ID: Fahad Sotelo is a 73 y.o. male who presents for Hypertension, Results (Labs and ct chest), and Sinusitis. Hypertension Patient is here for follow-up of elevated blood pressure. Cardiac symptoms: none. Patient denies chest pain, claudication, fatigue, irregular heart beat, near-syncope, orthopnea, palpitations, paroxysmal nocturnal dyspnea, and syncope. Cardiovascular risk factors: advanced age (older than 55 for men, 65 for women), hypertension, and male gender. Sinus Pain Patient complains of congestion, headaches, itchy eyes, and sinus pressure. Onset of symptoms was 3 weeks ago. Symptoms have been unchanged since that time. He finished abx given last visit no help per pt Hypertension Sinusitis Current Outpatient Medications on File Prior to Visit Medication Sig Dispense Refill Ascorbic Acid (Vitamin C) 500 MG capsule 1 (one) time each day at the same time. aspirin (Aspir-Low) 81 MG EC tablet 1 (one) time each day at the same time. cholecalciferol (Vitamin D3) 25 MCG (1000 UT) tablet 1 (one) time each day at the same time. fluticasone (Flonase) 50 MCG/ACT nasal spray Administer 1-2 sprays into each nostril in the morning. Shake gently. Before first use, prime pump. After use, clean tip and replace cap.. 16 g 3 isosorbide mononitrate ER (Imdur) 60 MG 24 hr tablet 1 (one) time each day at the same time. lisinopril 20 MG tablet 1 (one) time each day at the same time. metoprolol tartrate (Lopressor) 50 MG tablet every 12 (twelve) hours. nitroglycerin (Nitrostat) 0.4 MG SL tablet as directed Sublingual polyethylene glycol, PEG, 3350 (MiraLax) 17 GM/SCOOP powder as directed Orally rosuvastatin (Crestor) 40 MG tablet 1 (one) time each day at the same time. triamcinolone (Kenalog) 0.1 % cream APPLY TO THE AFFECTED AREA(S) (thin layer on neck, chest) TWICE DAILY NEEDED No current facility-administered medications on file prior to visit. I have reviewed and reconciled the history and medication list with the patient today. Allergies Allergen Reactions Bee Pollen Unknown and Swelling Bee Venom Other Reaction(s): Unknown Other Other Sneezing. Oxybutynin Other Reaction(s): Constipation Trospium Other Reaction(s): Xerostomia Social History Tobacco Use Smoking status: Never Smokeless tobacco: Never Vaping Use Vaping status: Never Used Substance Use Topics Alcohol use: Never Drug use: Never Family History Problem Relation Name Age of Onset Heart attack Mother Stroke Mother Past Medical History: Diagnosis Date CAD (coronary artery disease) ([facility]) Closed torus fracture of upper end of left fibula 08/21/2022 Complete rotator cuff tear or rupture of right shoulder, not specified as traumatic 05/04/2021 HLD (hyperlipidemia) ([facility]) HTN (hypertension) ([facility]) Myocardial infarct ([facility]) Rotator cuff tear left Past Surgical History: Procedure Laterality Date CORONARY ARTERY BYPASS GRAFT SHOULDER ARTHROSCOPY 2013 rotator cuff TRANSURETHRAL RESECTION OF PROSTATE Visit Vitals BP 122/66 Pulse 59 Ht 5' 10 Wt 223 lb SpO2 96% BMI 32.00 kg/m Smoking Status Never BSA 2.23 m Review of Systems Objective Physical Exam Constitutional: General: He is not in acute distress. Appearance: He is normal weight. He is not ill-appearing. HENT: Head: Normocephalic. Nose: Congestion present. Mouth/Throat: Pharynx: Posterior oropharyngeal erythema present. No oropharyngeal exudate. Cardiovascular: Rate and Rhythm: Normal rate and regular rhythm. Heart sounds: Normal heart sounds. No murmur heard. Pulmonary: Effort: Pulmonary effort is normal. Breath sounds: Normal breath sounds. Musculoskeletal: General: No swelling. Right lower leg: No edema. Left lower leg: No edema. Neurological: Mental Status: He is alert. Psychiatric: Mood and Affect: Mood normal. Thought Content: Thought content normal. Judgment: Judgment normal. Office Visit on 02/15/2024 Component Date Value Ref Range Status WHITE BLOOD CELL COUNT 02/15/2024 6.5 3.8 - 10.8 Thousand/uL Final RED BLOOD CELL COUNT 02/15/2024 5.19 4.20 - 5.80 Million/uL Final HEMOGLOBIN 02/15/2024 16.1 13.2 - 17.1 g/dL Final HEMATOCRIT 02/15/2024 47.9 38.5 - 50.0 % Final MCV 02/15/2024 92.3 80.0 - 100.0 fL Final MCH 02/15/2024 31.0 27.0 - 33.0 pg Final MCHC 02/15/2024 33.6 32.0 - 36.0 g/dL Final Comment: For adults, a slight decrease in the calculated MCHC value (in the range of 30 to 32 g/dL) is most likely not clinically significant; however, it should be interpreted with caution in correlation with other red cell parameters and the patient's clinical condition. RDW 02/15/2024 11.8 11.0 - 15.0 % Final PLATELET COUNT 02/15/2024 201 140 - 400 Thousand/uL Final MPV 02/15/2024 10.7 7.5 - 12.5 fL Final ABSOLUTE NEUTROPHILS 02/15/2024 3,939 1,500 - 7,800 cells/uL Final ABSOLUTE LYMPHOCYTES 02/15/2024 1,892 850 - 3,900 cells/uL Final ABSOLUTE MONOCYTES 02/15/2024 585 200 - 950 cells/uL Final ABSOLUTE EOSINOPHILS 02/15/2024 52 15 - 500 cells/uL Final ABSOLUTE BASOPHILS 02/15/2024 33 0 - 200 cells/uL Final NEUTROPHILS 02/15/2024 60.6 % Final LYMPHOCYTES 02/15/2024 29.1 % Final MONOCYTES 02/15/2024 9.0 % Final EOSINOPHILS 02/15/2024 0.8 % Final BASOPHILS 02/15/2024 0.5 % Final PSA, TOTAL 02/15/2024 0.34 < OR = 4.00 ng/mL Final Comment: The total PSA value from this assay system is standardized against the WHO standard. The test result will be approximately 20% lower when compared to the equimolar-standardized total PSA ([facility] [place]). Comparison of serial PSA results should be interpreted with this fact in mind. This test was performed using the Siemens chemiluminescent method. Values obtained from different assay methods cannot be used interchangeably. PSA levels, regardless of value, should not be interpreted as absolute evidence of the presence or absence of disease. Glucose 02/15/2024 107 (H) 65 - 99 mg/dL Final Comment: Fasting reference interval For someone without known diabetes, a glucose value between 100 and 125 mg/dL is consistent with prediabetes and should be confirmed with a follow-up test. BUN 02/15/2024 13 7 - 25 mg/dL Final Creatinine 02/15/2024 0.75 0.70 - 1.28 mg/dL Final EGFR 02/15/2024 94 > OR = 60 mL/min/1.73m2 Final BUN/CREATININE RATIO 02/15/2024 SEE NOTE: 6 - 22 (calc) Final Comment: Not Reported: BUN and Creatinine are within reference range. Sodium 02/15/2024 140 135 - 146 mmol/L Final Potassium, Bld 02/15/2024 4.3 3.5 - 5.3 mmol/L Final Chloride 02/15/2024 103 98 - 110 mmol/L Final Carbon Dioxide 02/15/2024 31 20 - 32 mmol/L Final Calcium 02/15/2024 9.0 8.6 - 10.3 mg/dL Final PROTEIN, TOTAL 02/15/2024 6.5 6.1 - 8.1 g/dL Final ALBUMIN 02/15/2024 4.3 3.6 - 5.1 g/dL Final GLOBULIN 02/15/2024 2.2 1.9 - 3.7 g/dL (calc) Final ALBUMIN/GLOBULIN RATIO 02/15/2024 2.0 1.0 - 2.5 (calc) Final BILIRUBIN, TOTAL 02/15/2024 0.7 0.2 - 1.2 mg/dL Final ALKALINE PHOSPHATASE 02/15/2024 58 35 - 144 U/L Final AST 02/15/2024 13 10 - 35 U/L Final ALT 02/15/2024 14 9 - 46 U/L Final CHOLESTEROL, TOTAL 02/15/2024 129 <200 mg/dL Final HDL CHOLESTEROL 02/15/2024 43 > OR = 40 mg/dL Final TRIGLYCERIDES 02/15/2024 97 <150 mg/dL Final LDL-CHOLESTEROL 02/15/2024 68 mg/dL (calc) Final Comment: Reference range: <100 Desirable range <100 mg/dL for primary prevention; <70 mg/dL for patients with CHD or diabetic patients with > or = 2 CHD risk factors. LDL-C is now calculated using the Talha-Winnie calculation, which is a validated novel method providing better accuracy than the Friedewald equation in the estimation of LDL-C. Talha SS et al. MANPREET. 2013;310(19): 8065-2077 (http://education.cinvolve.[employer]/faq/YXE425) CHOL/HDLC RATIO 02/15/2024 3.0 <5.0 (calc) Final NON HDL CHOLESTEROL 02/15/2024 86 <130 mg/dL (calc) Final Comment: For patients with diabetes plus 1 major ASCVD risk factor, treating to a non-HDL-C goal of <100 mg/dL (LDL-C of <70 mg/dL) is considered a therapeutic option. Assessment/Plan Diagnoses and all orders for this visit: Benign essential hypertension (CMS/HCC) Pulmonary granuloma of histoplasmosis (HCC) (CMS/HCC) - Cjhest CT discussed. No follow is needed for this. Dyslipidemia (CMS/HCC) Allergic rhinitis, unspecified seasonality, unspecified trigger - loratadine (Claritin) 10 MG tablet; Take 1 tablet (10 mg) by mouth Daily Follow up in about 6 months (around 2024) for Routine F/U. documented in this encounter [facility] 02-28-2024 Telephone encounter Note Form faxed to: [phone]. Transmitted OK - Confirmation Received. We will hold onto the paperwork in our hold for two (2) week bin. Afterwards, it will be sent to [facility] for scanning into the pt's chart. [facility] 02-28-2024 Miscellaneous Notes Form faxed to: [phone]. Transmitted OK - Confirmation Received. We will hold onto the paperwork in our hold for two (2) week bin. Afterwards, it will be sent to [facility] for scanning into the pt's chart. We received a fax from [facility], [facility]. I have the form, from [place], in Dr. Dye's work bin. We will need Dr. Dye's signature and date signed on the form. When I spoke with the Pt he said he will be getting his cath supplies from [facility]. [employer] is there sister store owned by [facility]. documented in this encounter [facility] 02-26-2024 Note HNO ID: [id number] Author: CHRIS CLEMENTS MD Service: ? Author Type: Physician Type: Progress Notes Filed: 02/26/2024 15:16 Note Text: Patient is referred by Stanton Velasco II, MD with recent right groin pain. A copy of dictation with recommendations to above by [facility] electronic medical record [place] mail. No prior groin or abdominal surgeries epic records verify confirmed update including past surgical medical social members medications and allergies. Further urology workup is undergoing for bladder difficulties. 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 He denies any changes in bowel or bladder habits otherwise. I would like to reexamine him in 2 months treat this is a right groin strain at this time although no known definite precipitating events were noted signs and symptoms red flags were also addressed. Can consider dynamic ultrasound of the right groin if continues to have discomfort and no hernia diagnosed clinically [facility] 02-25-2024 Telephone encounter Note We received a fax from [employer]. I have the form, from [place], in Dr. Dye's work bin. We will need Dr. Dye's signature and date signed on the form. When I spoke with the Pt he said he will be getting his cath supplies from [facility]. [place] is there sister store owned by [facility]. [facility] 02-22-2024 Telephone encounter Note Faxed orders for catheter supplies to [phone] [facility] 02-22-2024 Miscellaneous Notes Faxed orders for catheter supplies to [phone] documented in this encounter [facility] 02-18-2024 Telephone encounter Note VV note addendum made from today, catheters ordered and faxed electronically to [facility]. Aislinn Montalvo RN BSN [facility] 02-18-2024 Miscellaneous Notes VV note addendum made from today, catheters ordered and faxed electronically to [employer]. Aislinn Montalvo MACHINE REBUILDER Pt needs a new script for medical supplies, doesn't have a company in mind because he recently got new insurance 16fr coude/pre lubricated 5xs a day documented in this encounter [facility] 02-18-2024 Note Addended by: AISLINN RAHMAN on: 02/18/2024 02:28 PM Modules accepted: Orders [facility] 02-18-2024 Miscellaneous Notes Addended by: AISLINN MONTALVO on: 02/18/2024 02:28 PM Modules accepted: Orders documented in this encounter [facility] 02-18-2024 Telephone encounter Note Pt needs a new script for medical supplies, doesn't have a company in mind because he recently got new insurance 16fr coude/pre lubricated 5xs a day [facility] 02-18-2024 Note HNO ID: [id number] Author: NORI BE RN Service: ? Author Type: Physician Type: Progress Notes Filed: 03/06/2024 14:11 Note Text: [facility] Visit Patient Visit: This Team Access Model visit is a virtual encounter. It required patient-provider interaction for the medical decision making as documented below. I have communicated my name and active licensure. The patient's identity and physical location were verified at the time of this visit. Either the patient or their legal compliance representative dealer has been informed of the risks and benefits of -- and alternatives to -- treatment through a remote evaluation and consents to proceed with the evaluation remotely. Chief Complaint: on ISC and emptying issues HPI: Fahad Sotelo is a 73 year old year old male for a virtual visit with complaints of: see retention hx and prior UDS no HAYES some oab at times too strains to void attempt and then ISC 5x/day may have hernia now because of this PAST MEDICAL HISTORY Diagnosis Date CAD (coronary artery disease) 2005 [place] in 1997. Had a stent placed in 2008 c/b coronary artery dissection and that lead to a CABG x1 in 2008 Former smoker quit 1997 Hyperlipidemia Hypertension Intermittent self-catheterization of bladder Urge incontinence of urine PAST SURGICAL HISTORY Procedure Laterality Date ARTHRP KNE CONDYLEANDPLATU MEDIALANDLAT COMPARTMENTS 10/30/2018 right CABG (1) VEIN GRAFT AND ARTERIAL GRAFT 2008 coronary dissection during stent placement CHEMODNRVTJ [facility] INNERVATED FACIAL NRV UNIL CYSTO.PANENDO 11/24/2021 Dr. Dye CYSTO.PANENDO 05/31/2022 CYSTO.PANENDO N/A 06/04/2023 CYSTOSCOPY 03/29/2017 Dr. Fady Dye - [facility] LEFT HEART CATH,PERCUTANEOUS 05/11/2003 Cardiac cath, L heart LEFT HEART CATH,PERCUTANEOUS 12/08/2009 Cardiac cath, L heart LEFT HEART CATH,PERCUTANEOUS 03/15/2011 Cardiac cath, L heart with Stent placement OHS OFF PUMP PAST SURGICAL HISTORY OF Lumbar spine surgery. PAST SURGICAL HISTORY OF 05/29/2017 cervical spine surgery with fusion ROTATOR CUFF REPAIR Left 2016 TRURL ELECTROSURG RESCJ PROSTATE BLEED COMPLETE URODYNAMICS 03/29/2017 Procedure done by Nava Back LPN, [facility] Current Outpatient Medications on File Prior to Visit Medication Sig trospium (SANCTURA) 20 mg tablet Take 1 tablet by mouth two times a day. (Patient not taking: Reported on 01/17/2024) plecanatide (TRULANCE) 3 mg tablet Take 1 tablet by mouth once daily. nitroglycerin sublingual (NITROQUICK) 0.4 mg SL tablet as directed Sublingual Amoxicillin 500 mg tablet TAKE 4 TABLETS BY MOUTH 1 (ONE) HOUR BEFORE procedure then TAKE 2 TABLETS BY MOUTH 6 (SIX) hours after procedure acetaminophen (TYLENOL) 500 mg tablet Take 2 tablets by mouth every 6 hours as needed for pain. aspirin, enteric coated (ASPIRIN, ENTERIC COATED) 81 mg EC tablet Take 1 tablet by mouth twice daily. metoprolol tartrate, short acting, (LOPRESSOR) 50 mg tablet Take 1 tablet by mouth twice daily. COMPOUNDED PRESCRIPTION 16 fr catheters lisinopril (ZESTRIL, PRINIVIL) 20 mg tablet Take 20 mg by mouth once daily. ascorbic acid, vitamin C, (VITAMIN C) 500 mg tablet Take 1 tablet by mouth once daily. MAGNESIUM HYDROXIDE (MILK OF MAGNESIA ORAL) Take 1 Bottle by mouth as needed. isosorbide mononitrate ER (IMDUR) 60 mg 24 hr tablet Take 60 mg by mouth once daily. cholecalciferol (VITAMIN D3) 1,000 unit tab tablet Take 1,000 Units by mouth once daily. Multivitamin capsule Take 1 capsule by mouth once daily. rosuvastatin (CRESTOR) 40 mg tablet Take 40 mg by mouth once daily. No current facility-administered medications on file prior to visit. Impression/Plan (Diagnosis/Management Options, Data Reviewed, Risk) ASSESSMENT/PLAN: 1. Inguinal hernia without obstruction or gangrene, recurrence not specified, unspecified laterality - ICD9: 550.90, ICD10: K40.90 (primary diagnosis) - CONSULT TO GENERAL SURGERY 2. Overactive bladder - ICD9: 596.51, ICD10: N32.81 after Gen Surge eval - PERIPHERAL NERVE EVALUATION (PNE) [facility] 3. Incomplete bladder emptying - ICD9: 788.21, ICD10: R33.9 above - PERIPHERAL NERVE EVALUATION (PNE) -CATHETER ORDER FOR HOME ISC 5x/day with 16 fr coude Due to anatomy and inability to pass a straight tip catheter patient requires coude for permanent urinary retention. Patient to ISC 5 times per day. Fady Dye MD I spent 15 minutes in the visit, with more than 50% of the total [id number] time of the visit in counseling / coordination of care. Fady Dye MD [facility] [place] fax: [facility] 02-18-2024 History of Present illness Narrative [facility] Virtual Visit Patient Visit: This Team Access Model visit is a virtual encounter. It required patient-provider interaction for the medical decision making as documented below. I have communicated my name and active licensure. The patient's identity and physical location were verified at the time of this visit. Either the patient or their legal compliance representative dealer has been informed of the risks and benefits of -- and alternatives to -- treatment through a remote evaluation and consents to proceed with the evaluation remotely. Chief Complaint: on ISC and emptying issues HPI: Fahad Sotelo is a 73 year old year old male for a virtual visit with complaints of: see retention hx and prior UDS no HAYES some oab at times too strains to void attempt and then ISC 5x/day may have hernia now because of this PAST MEDICAL HISTORY Diagnosis Date CAD (coronary artery disease) 2005 [place] in 1997. Had a stent placed in 2008 c/b coronary artery dissection and that lead to a CABG x1 in 2008 Former smoker quit 1997 Hyperlipidemia Hypertension Intermittent self-catheterization of bladder Urge incontinence of urine PAST SURGICAL HISTORY Procedure Laterality Date ARTHRP KNE CONDYLE&PLATU MEDIAL&LAT COMPARTMENTS 10/30/2018 right CABG (1) VEIN GRAFT & ARTERIAL GRAFT 2008 coronary dissection during stent placement CHEMODNRVTJ [facility] INNERVATED FACIAL NRV UNIL CYSTO.PANENDO 11/24/2021 Dr. Dye CYSTO.PANENDO 05/31/2022 CYSTO.PANENDO N/A 06/04/2023 CYSTOSCOPY 03/29/2017 Dr. Fady Dye - [facility] LEFT HEART CATH,PERCUTANEOUS 05/11/2003 Cardiac cath, L heart LEFT HEART CATH,PERCUTANEOUS 12/08/2009 Cardiac cath, L heart LEFT HEART CATH,PERCUTANEOUS 03/15/2011 Cardiac cath, L heart with Stent placement OHS OFF PUMP PAST SURGICAL HISTORY OF Lumbar spine surgery. PAST SURGICAL HISTORY OF 05/29/2017 cervical spine surgery with fusion ROTATOR CUFF REPAIR Left 2016 TRURL ELECTROSURG RESCJ PROSTATE BLEED COMPLETE URODYNAMICS 03/29/2017 Procedure done by Nava Back LPN, [facility] Current Outpatient Medications on File Prior to Visit Medication Sig trospium (SANCTURA) 20 mg tablet Take 1 tablet by mouth two times a day. (Patient not taking: Reported on 01/17/2024) plecanatide (TRULANCE) 3 mg tablet Take 1 tablet by mouth once daily. nitroglycerin sublingual (NITROQUICK) 0.4 mg SL tablet as directed Sublingual Amoxicillin 500 mg tablet TAKE 4 TABLETS BY MOUTH 1 (ONE) HOUR BEFORE procedure then TAKE 2 TABLETS BY MOUTH 6 (SIX) hours after procedure acetaminophen (TYLENOL) 500 mg tablet Take 2 tablets by mouth every 6 hours as needed for pain. aspirin, enteric coated (ASPIRIN, ENTERIC COATED) 81 mg EC tablet Take 1 tablet by mouth twice daily. metoprolol tartrate, short acting, (LOPRESSOR) 50 mg tablet Take 1 tablet by mouth twice daily. COMPOUNDED PRESCRIPTION 16 fr catheters lisinopril (ZESTRIL, PRINIVIL) 20 mg tablet Take 20 mg by mouth once daily. ascorbic acid, vitamin C, (VITAMIN C) 500 mg tablet Take 1 tablet by mouth once daily. MAGNESIUM HYDROXIDE (MILK OF MAGNESIA ORAL) Take 1 Bottle by mouth as needed. isosorbide mononitrate ER (IMDUR) 60 mg 24 hr tablet Take 60 mg by mouth once daily. cholecalciferol (VITAMIN D3) 1,000 unit tab tablet Take 1,000 Units by mouth once daily. Multivitamin capsule Take 1 capsule by mouth once daily. rosuvastatin (CRESTOR) 40 mg tablet Take 40 mg by mouth once daily. No current facility-administered medications on file prior to visit. Impression/Plan (Diagnosis/Management Options, Data Reviewed, Risk) ASSESSMENT/PLAN: 1. Inguinal hernia without obstruction or gangrene, recurrence not specified, unspecified laterality - ICD9: 550.90, ICD10: K40.90 (primary diagnosis) - CONSULT TO GENERAL SURGERY 2. Overactive bladder - ICD9: 596.51, ICD10: N32.81 after Gen Surge eval - [facility] 3. Incomplete bladder emptying - ICD9: 788.21, ICD10: R33.9 above - PERIPHERAL NERVE EVALUATION (PNE) -CATHETER ORDER FOR HOME ISC 5x/day with 16 fr coude Fady Dye MD I spent 15 minutes in the visit, with more than 50% of the total [id number] time of the visit in counseling / coordination of care. Fady Dye MD [facility] [place] fax: documented in this encounter [facility] 02-18-2024 Telephone encounter Note Patient is calling into the office. He is requesting caths. He states that he needs 16F. Please assist, thank you [facility] 02-18-2024 Miscellaneous Notes Patient is calling into the office. He is requesting caths. He states that he needs 16F. Please assist, thank you documented in this encounter [facility] 02-15-2024 History of Present illness Narrative Images from the original note were not included. Subjective : Chief Complaint: Fahad Sotelo is an 73 y.o. male here for an annual wellness visit. I have reviewed and reconciled the history and medication list with the patient today. Current Outpatient Medications Medication Sig Dispense Refill Ascorbic Acid (Vitamin C) 500 MG capsule 1 (one) time each day at the same time. aspirin (Aspir-Low) 81 MG EC tablet 1 (one) time each day at the same time. cholecalciferol (Vitamin D3) 25 MCG (1000 UT) tablet 1 (one) time each day at the same time. fluticasone (Flonase) 50 MCG/ACT nasal spray Administer 1-2 sprays into each nostril in the morning. Shake gently. Before first use, prime pump. After use, clean tip and replace cap.. 16 g 3 isosorbide mononitrate ER (Imdur) 60 MG 24 hr tablet 1 (one) time each day at the same time. lisinopril 20 MG tablet 1 (one) time each day at the same time. metoprolol tartrate (Lopressor) 50 MG tablet every 12 (twelve) hours. nitroglycerin (Nitrostat) 0.4 MG SL tablet as directed Sublingual polyethylene glycol, PEG, 3350 (MiraLax) 17 GM/SCOOP powder as directed Orally rosuvastatin (Crestor) 40 MG tablet 1 (one) time each day at the same time. triamcinolone (Kenalog) 0.1 % cream APPLY TO THE AFFECTED AREA(S) (thin layer on neck, chest) TWICE DAILY NEEDED amoxicillin-clavulanate (Augmentin) 875-125 MG tablet Take 1 tablet (875 mg) by mouth in the morning and 1 tablet (875 mg) before bedtime. Do all this for 7 days. 14 tablet 0 No current facility-administered medications for this visit. Review of Systems List of current healthcare providers: Patient Care Team: Stanton Velasco MD as PCP - General (Internal Medicine) Medicare Annual Visit Over the past 2 weeks, how often have you been bothered by any of the following problems? Little interest or pleasure in doing things: Not at all Feeling down, depressed, or hopeless: Not at all Patient Health Questionnaire-2 Score: 0 [place] Fall Risk History of Falling, Immediate or Within 3 Months: No Secondary Diagnosis: No Ambulatory Aid: Walks without aid/bedrest/nurse assist Health Risk Assessment Form Do you need help eating, bathing, using the toilet, dressing, or getting around your home?: No Can you prepare your own meals?: Yes Can you do your own housework without help?: Yes Can you shop for groceries or clothes without help?: Yes Do you exercise for about 20 minutes 3 or more days a week?: Yes How confident are you that you can control and manage most of your health problems?: Very confident Can you mange your money, credit cards and accounts, pay bills and taxes?: Yes Cognitive Screening Three Word Registration: Apple, Watch, Betty Clock Drawing: Normal Clock - 2 Three Word Recall: All 3 words correct - 3 Total Score (0-5 Points): 5 Pain Assessment Pain Score: 5 - Moderate pain Advance Care Planning Do you have a living will?: Yes Do you have a medical power of prosecuting attorney?: Yes Who is your medical power of prosecuting attorney?: sister Objective : BP 128/74 Pulse 64 Ht 5' 10 Wt 223 lb SpO2 95% BMI 32.00 kg/m No results found. Physical Exam Constitutional: General: He is not in acute distress. Appearance: He is normal weight. He is not ill-appearing. HENT: Head: Normocephalic. Nose: Congestion present. Mouth/Throat: Pharynx: Oropharyngeal exudate and posterior oropharyngeal erythema present. Cardiovascular: Rate and Rhythm: Normal rate and regular rhythm. Heart sounds: Normal heart sounds. No murmur heard. Pulmonary: Effort: Pulmonary effort is normal. Breath sounds: Normal breath sounds. Musculoskeletal: General: No swelling. Right lower leg: No edema. Left lower leg: No edema. Neurological: Mental Status: He is alert. Psychiatric: Mood and Affect: Mood normal. Thought Content: Thought content normal. Judgment: Judgment normal. Assessment/Plan : The following health maintenance schedule was reviewed with the patient and provided in printed form in the after visit summary: Health Maintenance Topic Date Due Medicare Annual Wellness (AWV) 02/14/2025 Colorectal Cancer Screening 04/04/2033 Influenza Vaccine Completed Pneumococcal Vaccine: 65+ Years Completed Advance Care Planning Assessment/Plan Diagnoses and all orders for this visit: Routine general medical examination at health care facility ACP (advance care planning) Atherosclerosis of [place] coronary artery of [place] heart without angina pectoris (CMS/HCC) - CBC and differential - Comprehensive metabolic panel; Future - Lipid panel; Future Benign essential hypertension (CMS/HCC) Raynaud's syndrome without gangrene Chronic ischemic heart disease (CMS/HCC) Dyslipidemia (CMS/HCC) - Lipid panel; Future Chronic knee pain 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 Do all this for 7 days. Follow up in about 3 weeks (around 03/07/2024) for Recheck, Test/Lab Review. Orders Placed This Encounter Procedures CT chest wo IV contrast Order Specific Question: Reason for exam: Answer: f/u nodules CBC and differential Order Specific Question: Print requisition? Answer: No Comprehensive metabolic panel Standing Status: Future Number of Occurrences: 1 Standing Expiration Date: 02/14/2025 Order Specific Question: Print requisition? Answer: No Lipid panel Standing Status: Future Number of Occurrences: 1 Standing Expiration Date: 02/14/2025 PSA Order Specific Question: Print requisition? Answer: No Electronically signed by Stanton Velasco MD on February 15, 2024 documented in this encounter [facility] 01-17-2024 Note HNO ID: [id number] Author: FADY DYE MD Service: ? Author Type: Physician Type: Progress Notes Filed: 01/17/2024 13:55 Note Text: HPI: 73 M w CAD, OAB, slightly reduced bladder compliance, urgency, frequency, urethral stricture on self dilation Botox and urethral dilation of FN stricture in July 2023 UDS after botox 300mls capacity Lots of pabd activity Strong desire at 270, No obvious DO or rise in pdet with permission to void Normal compliance Cathed for 300 Prior UDS showed borderline compliance (prior to botox) RBUS normal in June Today He didn't like the botox because it made harder to void holds his breath to pee (sounds like valsalva) Voids or caths every 2-3 hours Caths three times a day Now nocturia 4-5 times Even before botox had to strain to void Had no pain or difficulty with cathing but last shipment of catheters was different and he is having more discomfort with this - coude tip is too curved Drinks pepsi and artifical additives to water I don't drink hardly at all Constipated or diarrhea Takes colace PAST MEDICAL HISTORY Diagnosis Date CAD (coronary artery disease) 2005 [place] in 1997. Had a stent placed in 2008 c/b coronary artery dissection and that lead to a CABG x1 in 2008 Former smoker quit 1997 Hyperlipidemia Hypertension Intermittent self-catheterization of bladder Urge incontinence of urine PAST SURGICAL HISTORY Procedure Laterality Date ARTHRP KNE CONDYLEANDPLATU MEDIALANDLAT COMPARTMENTS 10/30/2018 right CABG (1) VEIN GRAFT AND ARTERIAL GRAFT 2008 coronary dissection during stent placement CHEMODNR[facility]J [facility] INNERVATED FACIAL NRV UNIL CYSTO.PANENDO 11/24/2021 Dr. Dye CYSTO.PANENDO 05/31/2022 CYSTO.PANENDO N/A 06/04/2023 CYSTOSCOPY 03/29/2017 Dr. Fady Dye - [facility] LEFT HEART CATH,PERCUTANEOUS 05/11/2003 Cardiac cath, L heart LEFT HEART CATH,PERCUTANEOUS 12/08/2009 Cardiac cath, L heart LEFT HEART CATH,PERCUTANEOUS 03/15/2011 Cardiac cath, L heart with Stent placement OHS OFF PUMP PAST SURGICAL HISTORY OF Lumbar spine surgery. PAST SURGICAL HISTORY OF 05/29/2017 cervical spine surgery with fusion ROTATOR CUFF REPAIR Left 2016 TRURL ELECTROSURG RESCJ PROSTATE BLEED COMPLETE URODYNAMICS 03/29/2017 Procedure done by Nava Back LPN, [facility] Social History Tobacco Use Smoking status: Former Current packs/day: 0.00 Average packs/day: 1.3 packs/day for 10.0 years (12.5 ttl pk-yrs) Types: Cigarettes Start date: 11/14/1987 Quit date: 11/13/1997 Years since quittin.1 Smokeless tobacco: Never Vaping Use Vaping status: Never Used Substance Use Topics Alcohol use: Yes Comment: 2 cans of beer per year. Drug use: No Comment: denies tx for drug/alcohol abuse in the past. Current Outpatient Medications Medication Sig Dispense Refill plecanatide (TRULANCE) 3 mg tablet Take 1 tablet by mouth once daily. nitroglycerin sublingual (NITROQUICK) 0.4 mg SL tablet as directed Sublingual acetaminophen (TYLENOL) 500 mg tablet Take 2 tablets by mouth every 6 hours as needed for pain. aspirin, enteric coated (ASPIRIN, ENTERIC COATED) 81 mg EC tablet Take 1 tablet by mouth twice daily. 84 tablet 0 metoprolol tartrate, short acting, (LOPRESSOR) 50 mg tablet Take 1 tablet by mouth twice daily. COMPOUNDED PRESCRIPTION 16 fr catheters 30 Device 11 lisinopril (ZESTRIL, PRINIVIL) 20 mg tablet Take 20 mg by mouth once daily. 3 ascorbic acid, vitamin C, (VITAMIN C) 500 mg tablet Take 1 tablet by mouth once daily. MAGNESIUM HYDROXIDE (MILK OF MAGNESIA ORAL) Take 1 Bottle by mouth as needed. isosorbide mononitrate ER (IMDUR) 60 mg 24 hr tablet Take 60 mg by mouth once daily. cholecalciferol (VITAMIN D3) 1,000 unit tab tablet Take 1,000 Units by mouth once daily. Multivitamin capsule Take 1 capsule by mouth once daily. rosuvastatin (CRESTOR) 40 mg tablet Take 40 mg by mouth once daily. trospium (SANCTURA) 20 mg tablet Take 1 tablet by mouth two times a day. (Patient not taking: Reported on 01/17/2024) 30 tablet 4 Amoxicillin 500 mg tablet TAKE 4 TABLETS BY MOUTH 1 (ONE) HOUR BEFORE procedure then TAKE 2 TABLETS BY MOUTH 6 (SIX) hours after procedure 6 tablet 3 No current facility-administered medications for this visit. ROS: Constitutional: negative Gastrointestinal: negative PHYSICAL EXAM: There were no vitals taken for this visit. GENERAL: Wnl nutrition, no deformities, healthy appearing DATA/OR LABS TO BE REVIEWED: (Simple=1 data point; Complex= 2 or more) PSA (ng/mL) Date Value 03/09/2020 0.31 Creatinine (mg/dL) Date Value 07/05/2023 0.74 04/12/2021 0.89 10/31/2018 0.84 10/30/2018 0.85 10/10/2018 0.95 06/29/2017 0.88 05/23/2017 0.93 No results found for: TESTOST A/P: 73M w refractory OAB Incomplete emptying FN stricture I did botox + dilation in attempt to improve his OAB, by UDS this improved his cap (more content not included)... [facility] 01-17-2024 History of Present illness Narrative HPI: 73 M w CAD, OAB, slightly reduced bladder compliance, urgency, frequency, urethral stricture on self dilation Botox and urethral dilation of FN stricture in July 2023 UDS after botox 300mls capacity Lots of pabd activity Strong desire at 270, No obvious DO or rise in pdet with permission to void Normal compliance Cathed for 300 Prior UDS showed borderline compliance (prior to botox) RBUS normal in June Today He didn't like the botox because it made harder to void holds his breath to pee (sounds like valsalva) Voids or caths every 2-3 hours Caths three times a day Now nocturia 4-5 times Even before botox had to strain to void Had no pain or difficulty with cathing but last shipment of catheters was different and he is having more discomfort with this - coude tip is too curved Drinks pepsi and artifical additives to water I don't drink hardly at all Constipated or diarrhea Takes colace PAST MEDICAL HISTORY Diagnosis Date CAD (coronary artery disease) 2004 [place] in 1997. Had a stent placed in 2008 c/b coronary artery dissection and that lead to a CABG x1 in 2008 Former smoker quit 1997 Hyperlipidemia Hypertension Intermittent self-catheterization of bladder Urge incontinence of urine PAST SURGICAL HISTORY Procedure Laterality Date ARTHRP KNE CONDYLE&PLATU MEDIAL&LAT COMPARTMENTS 10/30/2018 right CABG (1) VEIN GRAFT & ARTERIAL GRAFT 2008 coronary dissection during stent placement [facility]MODNR[facility] INNERVATED FACIAL NRV UNIL CYSTO.PANENDO 11/24/2021 Dr. Dye CYSTO.PANENDO 05/31/2022 CYSTO.PANENDO N/A 06/04/2023 CYSTOSCOPY 03/29/2017 Dr. Fady Dye - [facility] LEFT HEART CATH,PERCUTANEOUS 05/11/2003 Cardiac cath, L heart LEFT HEART CATH,PERCUTANEOUS 12/08/2009 Cardiac cath, L heart LEFT HEART CATH,PERCUTANEOUS 03/15/2011 Cardiac cath, L heart with Stent placement OHS OFF PUMP PAST SURGICAL HISTORY OF Lumbar spine surgery. PAST SURGICAL HISTORY OF 05/29/2017 cervical spine surgery with fusion ROTATOR CUFF REPAIR Left 2016 TRURL ELECTROSURG RESCJ PROSTATE BLEED COMPLETE URODYNAMICS 03/29/2017 Procedure done by Nava Back LPN, [facility] Social History Tobacco Use Smoking status: Former Current packs/day: 0.00 Average packs/day: 1.3 packs/day for 10.0 years (12.5 ttl pk-yrs) Types: Cigarettes Start date: 11/14/1987 Quit date: 11/13/1997 Years since quittin.1 Smokeless tobacco: Never Vaping Use Vaping status: Never Used Substance Use Topics Alcohol use: Yes Comment: 2 cans of beer per year. Drug use: No Comment: denies tx for drug/alcohol abuse in the past. Current Outpatient Medications Medication Sig Dispense Refill plecanatide (TRULANCE) 3 mg tablet Take 1 tablet by mouth once daily. nitroglycerin sublingual (NITROQUICK) 0.4 mg SL tablet as directed Sublingual acetaminophen (TYLENOL) 500 mg tablet Take 2 tablets by mouth every 6 hours as needed for pain. aspirin, enteric coated (ASPIRIN, ENTERIC COATED) 81 mg EC tablet Take 1 tablet by mouth twice daily. 84 tablet 0 metoprolol tartrate, short acting, (LOPRESSOR) 50 mg tablet Take 1 tablet by mouth twice daily. COMPOUNDED PRESCRIPTION 16 fr catheters 30 Device 11 lisinopril (ZESTRIL, PRINIVIL) 20 mg tablet Take 20 mg by mouth once daily. 3 ascorbic acid, vitamin C, (VITAMIN C) 500 mg tablet Take 1 tablet by mouth once daily. MAGNESIUM HYDROXIDE (MILK OF MAGNESIA ORAL) Take 1 Bottle by mouth as needed. isosorbide mononitrate ER (IMDUR) 60 mg 24 hr tablet Take 60 mg by mouth once daily. cholecalciferol (VITAMIN D3) 1,000 unit tab tablet Take 1,000 Units by mouth once daily. Multivitamin capsule Take 1 capsule by mouth once daily. rosuvastatin (CRESTOR) 40 mg tablet Take 40 mg by mouth once daily. trospium (SANCTURA) 20 mg tablet Take 1 tablet by mouth two times a day. (Patient not taking: Reported on 01/17/2024) 30 tablet 4 Amoxicillin 500 mg tablet TAKE 4 TABLETS BY MOUTH 1 (ONE) HOUR BEFORE procedure then TAKE 2 TABLETS BY MOUTH 6 (SIX) hours after procedure 6 tablet 3 No current facility-administered medications for this visit. ROS: Constitutional: negative Gastrointestinal: negative PHYSICAL EXAM: There were no vitals taken for this visit. GENERAL: Wnl nutrition, no deformities, healthy appearing DATA/OR LABS TO BE REVIEWED: (Simple=1 data point; Complex= 2 or more) PSA (ng/mL) Date Value 03/09/2020 0.31 Creatinine (mg/dL) Date Value 07/05/2023 0.74 04/12/2021 0.89 10/31/2018 0.84 10/30/2018 0.85 10/10/2018 0.95 06/29/2017 0.88 05/23/2017 0.93 No results found for: TESTOST A/P: 73M w refractory OAB Incomplete emptying FN stricture I did botox + dilation in attempt to improve his OAB, by UDS this improved his capacity and compliance but subjectively he felt things were worse We discussed avoiding bladder irritants - he states he really barely consumes any fluid now to avoid having to urinate ASSESSMENT/PLAN: 1. Urinary frequency - ICD9: 788.41, ICD10: R35.0 (primary diagnosis) complicated - Patient education for prevention given 2. Urgency of urination - ICD9: 788.63, ICD10: R39.15 3. Incomplete bladder emptying - ICD9: 788.21, ICD10: R33.9 plan given MDT brochures had staged approach in past will review again poss PNE in HOPS VV first with patient and sister, ok to call will have Luzma arrange VV soon I spent a total of 45 minutes on the date of the service which included preparing to see the patient, [id number] patient care, completing clinical documentation, obtaining and/or reviewing separately obtained history, counseling and educating the patient/family/caregiver, and ordering medications, tests, or procedures. Fady Dye MD documented in this encounter [facility] 12-14-2023 Telephone encounter Note Fahad Sotelo [phone] Called patient re: recent urine culture with Dr. Salomon. No answer. Left VM with call back number. Sent Rx for bactrim to local pharmacy. Daija Lares PA-C 12/14/2023 3:31 PM [facility] 12-14-2023 Miscellaneous Notes Fahad Sotelo [phone] Called patient re: recent urine culture with Dr. Salomon. No answer. Left VM with call back number. Sent Rx for bactrim to local pharmacy. Daija Lares PA-C 12/14/2023 3:31 PM documented in this encounter [facility] 12-13-2023 Nurse Note Faxed clinical notes that say patient needs pre-lubed coude caths because of bph and stricture, urinary retention three time a day, to [facility] fax # , [facility] 12-13-2023 Nurse Note Faxed clinical notes that say patient needs pre-lubed coude caths because of bph and stricture, urinary retention three time a day, to [facility] fax # , documented in this encounter [facility] 12-12-2023 Instructions Louie Salomon MD - 12/12/2023 1:49 PM EDT Today we discuss neuromodulation for overactive bladder with something like an interstim device. I can set you up to talk to Dr Dye to discuss this. That would not fix your stricture but if it improved your bladder function we could fix the stricture separately. documented in this encounter [facility] 12-12-2023 Note HNO ID: [id number] Author: LOUIE SALOMON MD Service: ? Author Type: Physician Type: Progress Notes Filed: 12/12/2023 16:56 Note Text: HPI: 73 M w CAD, OAB, slightly reduced bladder compliance, urgency, frequency, urethral stricture on self dilation Botox and urethral dilation of FN stricture in July 2023 UDS after botox 300mls capacity Lots of pabd activity Strong desire at 270, No obvious DO or rise in pdet with permission to void Normal compliance Cathed for 300 Prior UDS showed borderline compliance (prior to botox) RBUS normal in June Today He didn't like the botox because it made harder to void holds his breath to pee (sounds like valsalva) Voids or caths every 2-3 hours Caths three times a day Now nocturia 4-5 times Even before botox had to strain to void Had no pain or difficulty with cathing but last shipment of catheters was different and he is having more discomfort with this - coude tip is too curved Drinks pepsi and artifical additives to water I don't drink hardly at all Constipated or diarrhea Takes colace PAST MEDICAL HISTORY Diagnosis Date CAD (coronary artery disease) 2005 [place] in 1997. Had a stent placed in 2008 c/b coronary artery dissection and that lead to a CABG x1 in 2008 Former smoker quit 1997 Hyperlipidemia Hypertension Intermittent self-catheterization of bladder Urge incontinence of urine PAST SURGICAL HISTORY Procedure Laterality Date ARTHRP KNE CONDYLEANDPLATU MEDIALANDLAT COMPARTMENTS 10/30/2018 right CABG (1) VEIN GRAFT AND ARTERIAL GRAFT 2008 coronary dissection during stent placement [facility]ATED FACIAL NRV UNIL CYSTO.PANENDO 11/24/2021 Dr. Dye CYSTO.PANENDO 05/31/2022 CYSTO.PANENDO N/A 06/04/2023 CYSTOSCOPY 03/29/2017 Dr. Fady Dye - [facility] LEFT HEART CATH,PERCUTANEOUS 05/11/2003 Cardiac cath, L heart LEFT HEART CATH,PERCUTANEOUS 12/08/2009 Cardiac cath, L heart LEFT HEART CATH,PERCUTANEOUS 03/15/2011 Cardiac cath, L heart with Stent placement OHS OFF PUMP PAST SURGICAL HISTORY OF Lumbar spine surgery. PAST SURGICAL HISTORY OF 05/29/2017 cervical spine surgery with fusion ROTATOR CUFF REPAIR Left 2016 TRURL ELECTROSURG RESCJ PROSTATE BLEED COMPLETE URODYNAMICS 03/29/2017 Procedure done by Nava Back LPN, [facility] Social History Tobacco Use Smoking status: Former Current packs/day: 0.00 Average packs/day: 1.3 packs/day for 10.0 years (12.5 ttl pk-yrs) Types: Cigarettes Start date: 11/14/1987 Quit date: 11/13/1997 Years since quittin.0 Smokeless tobacco: Never Vaping Use Vaping status: Never Used Substance Use Topics Alcohol use: Yes Comment: 2 cans of beer per year. Drug use: No Comment: denies tx for drug/alcohol abuse in the past. Current Outpatient Medications Medication Sig Dispense Refill trospium (SANCTURA) 20 mg tablet Take 1 tablet by mouth two times a day. 30 tablet 4 plecanatide (TRULANCE) 3 mg tablet Take 1 tablet by mouth once daily. nitroglycerin sublingual (NITROQUICK) 0.4 mg SL tablet as directed Sublingual Amoxicillin 500 mg tablet TAKE 4 TABLETS BY MOUTH 1 (ONE) HOUR BEFORE procedure then TAKE 2 TABLETS BY MOUTH 6 (SIX) hours after procedure 6 tablet 3 acetaminophen (TYLENOL) 500 mg tablet Take 2 tablets by mouth every 6 hours as needed for pain. aspirin, enteric coated (ASPIRIN, ENTERIC COATED) 81 mg EC tablet Take 1 tablet by mouth twice daily. 84 tablet 0 metoprolol tartrate, short acting, (LOPRESSOR) 50 mg tablet Take 1 tablet by mouth twice daily. COMPOUNDED PRESCRIPTION 16 fr catheters 30 Device 11 lisinopril (ZESTRIL, PRINIVIL) 20 mg tablet Take 20 mg by mouth once daily. 3 ascorbic acid, vitamin C, (VITAMIN C) 500 mg tablet Take 1 tablet by mouth once daily. MAGNESIUM HYDROXIDE (MILK OF MAGNESIA ORAL) Take 1 Bottle by mouth as needed. isosorbide mononitrate ER (IMDUR) 60 mg 24 hr tablet Take 60 mg by mouth once daily. cholecalciferol (VITAMIN D3) 1,000 unit tab tablet Take 1,000 Units by mouth once daily. Multivitamin capsule Take 1 capsule by mouth once daily. rosuvastatin (CRESTOR) 40 mg tablet Take 40 mg by mouth once daily. No current facility-administered medications for this visit. ROS: Constitutional: negative Gastrointestinal: negative PHYSICAL EXAM: BP 130/72 Pulse 63 GENERAL: Wnl nutrition, no deformities, healthy appearing DATA/OR LABS TO BE REVIEWED: (Simple=1 data point; Complex= 2 or more) PSA (ng/mL) Date Value 03/09/2020 0.31 Creatinine (mg/dL) Date Value 07/05/2023 0.74 04/12/2021 0.89 10/31/2018 0.84 10/30/2018 0.85 10/10/2018 0.95 06/29/2017 0.88 05/23/2017 0.93 No results found for: TESTOST A/P: 73M w refractory OAB Incomplete emptying FN stricture I did botox + dilation in attempt to improve his OAB, by UDS this improved his capacity and compliance but subjectively he felt things were worse (more content not included)... [facility] 12-12-2023 History of Present illness Narrative HPI: 73 M w CAD, OAB, slightly reduced bladder compliance, urgency, frequency, urethral stricture on self dilation Botox and urethral dilation of FN stricture in July 2023 UDS after botox 300mls capacity Lots of pabd activity Strong desire at 270, No obvious DO or rise in pdet with permission to void Normal compliance Cathed for 300 Prior UDS showed borderline compliance (prior to botox) RBUS normal in June Today He didn't like the botox because it made harder to void holds his breath to pee (sounds like valsalva) Voids or caths every 2-3 hours Caths three times a day Now nocturia 4-5 times Even before botox had to strain to void Had no pain or difficulty with cathing but last shipment of catheters was different and he is having more discomfort with this - coude tip is too curved Drinks pepsi and artifical additives to water I don't drink hardly at all Constipated or diarrhea Takes colace PAST MEDICAL HISTORY Diagnosis Date CAD (coronary artery disease) 2004 [place] in 1997. Had a stent placed in 2008 c/b coronary artery dissection and that lead to a CABG x1 in 2008 Former smoker quit 1997 Hyperlipidemia Hypertension Intermittent self-catheterization of bladder Urge incontinence of urine PAST SURGICAL HISTORY Procedure Laterality Date ARTHRP KNE CONDYLE&PLATU MEDIAL&LAT COMPARTMENTS 10/30/2018 right CABG (1) VEIN GRAFT & ARTERIAL GRAFT 2008 coronary dissection during stent placement [facility]ATED FACIAL NRV UNIL CYSTO.PANENDO 11/24/2021 Dr. Dye CYSTO.PANENDO 05/31/2022 CYSTO.PANENDO N/A 06/04/2023 CYSTOSCOPY 03/29/2017 Dr. Fady Dye - [facility] LEFT HEART CATH,PERCUTANEOUS 05/11/2003 Cardiac cath, L heart LEFT HEART CATH,PERCUTANEOUS 12/08/2009 Cardiac cath, L heart LEFT HEART CATH,PERCUTANEOUS 03/15/2011 Cardiac cath, L heart with Stent placement OHS OFF PUMP PAST SURGICAL HISTORY OF Lumbar spine surgery. PAST SURGICAL HISTORY OF 05/29/2017 cervical spine surgery with fusion ROTATOR CUFF REPAIR Left 2016 TRURL ELECTROSURG RESCJ PROSTATE BLEED COMPLETE URODYNAMICS 03/29/2017 Procedure done by Nava Back LPN, [facility] Social History Tobacco Use Smoking status: Former Current packs/day: 0.00 Average packs/day: 1.3 packs/day for 10.0 years (12.5 ttl pk-yrs) Types: Cigarettes Start date: 11/14/1987 Quit date: 11/13/1997 Years since quittin.0 Smokeless tobacco: Never Vaping Use Vaping status: Never Used Substance Use Topics Alcohol use: Yes Comment: 2 cans of beer per year. Drug use: No Comment: denies tx for drug/alcohol abuse in the past. Current Outpatient Medications Medication Sig Dispense Refill trospium (SANCTURA) 20 mg tablet Take 1 tablet by mouth two times a day. 30 tablet 4 plecanatide (TRULANCE) 3 mg tablet Take 1 tablet by mouth once daily. nitroglycerin sublingual (NITROQUICK) 0.4 mg SL tablet as directed Sublingual Amoxicillin 500 mg tablet TAKE 4 TABLETS BY MOUTH 1 (ONE) HOUR BEFORE procedure then TAKE 2 TABLETS BY MOUTH 6 (SIX) hours after procedure 6 tablet 3 acetaminophen (TYLENOL) 500 mg tablet Take 2 tablets by mouth every 6 hours as needed for pain. aspirin, enteric coated (ASPIRIN, ENTERIC COATED) 81 mg EC tablet Take 1 tablet by mouth twice daily. 84 tablet 0 metoprolol tartrate, short acting, (LOPRESSOR) 50 mg tablet Take 1 tablet by mouth twice daily. COMPOUNDED PRESCRIPTION 16 fr catheters 30 Device 11 lisinopril (ZESTRIL, PRINIVIL) 20 mg tablet Take 20 mg by mouth once daily. 3 ascorbic acid, vitamin C, (VITAMIN C) 500 mg tablet Take 1 tablet by mouth once daily. MAGNESIUM HYDROXIDE (MILK OF MAGNESIA ORAL) Take 1 Bottle by mouth as needed. isosorbide mononitrate ER (IMDUR) 60 mg 24 hr tablet Take 60 mg by mouth once daily. cholecalciferol (VITAMIN D3) 1,000 unit tab tablet Take 1,000 Units by mouth once daily. Multivitamin capsule Take 1 capsule by mouth once daily. rosuvastatin (CRESTOR) 40 mg tablet Take 40 mg by mouth once daily. No current facility-administered medications for this visit. ROS: Constitutional: negative Gastrointestinal: negative PHYSICAL EXAM: BP 130/72 Pulse 63 GENERAL: Wnl nutrition, no deformities, healthy appearing DATA/OR LABS TO BE REVIEWED: (Simple=1 data point; Complex= 2 or more) PSA (ng/mL) Date Value 03/09/2020 0.31 Creatinine (mg/dL) Date Value 07/05/2023 0.74 04/12/2021 0.89 10/31/2018 0.84 10/30/2018 0.85 10/10/2018 0.95 06/29/2017 0.88 05/23/2017 0.93 No results found for: TESTOST A/P: 73M w refractory OAB Incomplete emptying FN stricture I did botox + dilation in attempt to improve his OAB, by UDS this improved his capacity and compliance but subjectively he felt things were worse We discussed avoiding bladder irritants - he states he really barely consumes any fluid now to avoid having to urinate I will refer back to Dr Dye to see if neuromodulation can improve his symptoms - if so could certainly fix his stricture (not a lot of utility now if he continues to need to cath to empty) We briefly discussed more drastic interventions including augment and diversion Louie Salomon MD Needs pre lubed coude caths because of bph and stricture, urinary retention Three times a day documented in this encounter [facility] 12-12-2023 Nurse Note Post Void Residual done on patient with 110 cc residual volume remaining. notified. Fela Teran LPN [facility] 12-12-2023 Nurse Note Post Void Residual done on patient with 110 cc residual volume remaining. notified. Fela Teran LPN documented in this encounter [facility] 11-13-2023 Telephone encounter Note Fahad Sotelo [id number] Returned call to patient. Got up 7 times last night. Doesn't feel like he is emptying his bladder. Did cath himself so he could sleep. Got quite a bit out when he cathed. Even had some trouble getting catheter in. Feels like he has trouble getting past meatus and then it goes easily. Stream is weak. Wondering if he has scar tissue is built up in there. Denies any bleeding on regular basis. Does occasionally see a whisp of blood in the bowl. Doesn't understand why his bladder doesn't empty on his own. States he cannot cath every time he goes to the bathroom (because he doesn't want to cath that much). Goes about every 2 hours to void. Does cath 3-4 times per day. Feels like he does empty with cathing. Offered lidocaine jelly Rx but patient happy with lubricant he has at home. Explained he can cath more often if he is having discomfort from inability to void and we can always change catheter Rx to reflect this if needed. He expressed understanding and appreciation for call. Daija Lares PA-C 11/13/2023 10:48 AM [facility] Work Phone: 11-13-2023 Miscellaneous Notes Fahad Sotelo [id number] Returned call to patient. Got up 7 times last night. Doesn't feel like he is emptying his bladder. Did cath himself so he could sleep. Got quite a bit out when he cathed. Even had some trouble getting catheter in. Feels like he has trouble getting past meatus and then it goes easily. Stream is weak. Wondering if he has scar tissue is built up in there. Denies any bleeding on regular basis. Does occasionally see a whisp of blood in the bowl. Doesn't understand why his bladder doesn't empty on his own. States he cannot cath every time he goes to the bathroom (because he doesn't want to cath that much). Goes about every 2 hours to void. Does cath 3-4 times per day. Feels like he does empty with cathing. Offered lidocaine jelly Rx but patient happy with lubricant he has at home. Explained he can cath more often if he is having discomfort from inability to void and we can always change catheter Rx to reflect this if needed. He expressed understanding and appreciation for call. Daija Lares PA-C 11/13/2023 10:48 AM Pt states that he has had difficulty urinating the past couple days. He say he has to hold his breath and push out the urine. Also states he is having difficulty with cathing as well. documented in this encounter [facility] 11-13-2023 Telephone encounter Note Pt states that he has had difficulty urinating the past couple days. He say he has to hold his breath and push out the urine. Also states he is having difficulty with cathing as well. [facility] 11-02-2023 History of Present illness Narrative Images from the original note were not included. HPI Excessive Sweating Additional comments: Pt states he feels hot inside and sweats a lot mostly on his truck x 2 months Last edited by Lucy Solorio LPN on 11/02/2023 11:07 AM. Subjective Patient ID: Fahad Sotelo is a 73 y.o. male who presents for Excessive Sweating (Pt states he feels hot inside and sweats a lot mostly on his truck x 2 months), Back Pain, and Constipation. Constipation Patient complains of constipation. Onset was years ago. Current Health Habits: Eating fiber? yes - , Adequate hydration? no. Current over the counter/prescription laxative: miralax,trulancducolax,senna which has been not very effective. Pt states a few weeks ago he bent over and lower back started bothering him- pain in now just in left lower back into left buttocks Denies any numbness or tingling No help with ice or heat Excessive Sweating Back Pain Constipation Associated symptoms include back pain. Current Outpatient Medications on File Prior to Visit Medication Sig Dispense Refill Ascorbic Acid (Vitamin C) 500 MG capsule 1 (one) time each day at the same time. aspirin (Aspir-Low) 81 MG EC tablet 1 (one) time each day at the same time. cholecalciferol (Vitamin D3) 25 MCG (1000 UT) tablet 1 (one) time each day at the same time. fluticasone (Flonase) 50 MCG/ACT nasal spray Administer 1-2 sprays into each nostril in the morning. Shake gently. Before first use, prime pump. After use, clean tip and replace cap.. 16 g 3 isosorbide mononitrate ER (Imdur) 60 MG 24 hr tablet 1 (one) time each day at the same time. lisinopril 20 MG tablet 1 (one) time each day at the same time. metoprolol tartrate (Lopressor) 50 MG tablet every 12 (twelve) hours. nitroglycerin (Nitrostat) 0.4 MG SL tablet as directed Sublingual polyethylene glycol, PEG, 3350 (MiraLax) 17 GM/SCOOP powder as directed Orally rosuvastatin (Crestor) 40 MG tablet 1 (one) time each day at the same time. triamcinolone (Kenalog) 0.1 % cream APPLY TO THE AFFECTED AREA(S) (thin layer on neck, chest) TWICE DAILY NEEDED [DISCONTINUED] plecanatide (Trulance) tablet tablet Take 1 tablet by mouth Daily No current facility-administered medications on file prior to visit. I have reviewed and reconciled the history and medication list with the patient today. Allergies Allergen Reactions Bee Pollen Unknown and Swelling Bee Venom Other Reaction(s): Unknown Other Other Sneezing. Oxybutynin Other Reaction(s): Constipation Trospium Other Reaction(s): Xerostomia Social History Tobacco Use Smoking status: Never Smokeless tobacco: Never Vaping Use Vaping status: Never Used Substance Use Topics Alcohol use: Never Drug use: Never Family History Problem Relation Name Age of Onset Heart attack Mother Stroke Mother Past Medical History: Diagnosis Date CAD (coronary artery disease) ([facility]) Closed torus fracture of upper end of left fibula 08/21/2022 Complete rotator cuff tear or rupture of right shoulder, not specified as traumatic 05/04/2021 HLD (hyperlipidemia) ([facility]) HTN (hypertension) ([facility]) Myocardial infarct ([facility]) Rotator cuff tear left Past Surgical History: Procedure Laterality Date CORONARY ARTERY BYPASS GRAFT SHOULDER ARTHROSCOPY 2013 rotator cuff TRANSURETHRAL RESECTION OF PROSTATE Visit Vitals BP 128/76 Pulse 78 Ht 5' 10 Wt 221 lb SpO2 94% BMI 31.71 kg/m Smoking Status Never BSA 2.22 m Review of Systems Gastrointestinal: Positive for constipation. Musculoskeletal: Positive for back pain. Objective Physical Exam Constitutional: General: He is not in acute distress. Appearance: Normal appearance. HENT: Head: Normocephalic and atraumatic. Right Ear: Tympanic membrane and ear canal normal. Left Ear: Tympanic membrane and ear canal normal. Nose: Nose normal. Mouth/Throat: Mouth: Mucous membranes are moist. Pharynx: Oropharynx is clear. Eyes: General: No scleral icterus. Extraocular Movements: Extraocular movements intact. Conjunctiva/sclera: Conjunctivae normal. Pupils: Pupils are equal, round, and reactive to light. Comments: Left eye with abrasion above it and ecchymosis with mild swelling below Neck: Vascular: No carotid bruit. Cardiovascular: Rate and Rhythm: Normal rate and regular rhythm. Pulses: Normal pulses. Pulmonary: Effort: Pulmonary effort is normal. Breath sounds: Normal breath sounds. No wheezing, rhonchi or rales. Abdominal: General: Bowel sounds are normal. There is no distension. Palpations: Abdomen is soft. Tenderness: There is no abdominal tenderness. There is no guarding. Musculoskeletal: General: No swelling, tenderness, deformity or signs of injury. Cervical back: Normal range of motion. No tenderness. Comments: Decreased ROM bilat shoulders Lymphadenopathy: Cervical: No cervical adenopathy. Skin: General: Skin is warm and dry. Findings: No erythema. Neurological: General: No focal deficit present. Mental Status: He is alert and oriented to person, place, and time. Cranial Nerves: No cranial nerve deficit. Sensory: No sensory deficit. Motor: No weakness. Coordination: Coordination normal. Gait: Gait abnormal. Psychiatric: Mood and Affect: Mood normal. Behavior: Behavior normal. Thought Content: Thought content normal. Judgment: Judgment normal. Assessment/Plan Diagnoses and all orders for this visit: Chronic idiopathic constipation - Simplify his regimen. Just Colace 100mg bid and Linzess 145 qam (samples). If this fails, will refer to GI. 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 Has labwork planned. Follow up for To be determined. documented in this encounter [facility] 09-11-2023 Telephone encounter Note Called to follow up on voiding/cathing data He is still needing to go very frequently Cath volumes range from 4-9 oz Void volumes 1-4 ounces Still feels like he has to pee at the time but can't go After he caths will feel he has to go 30-60 min later Drinking 1-2 bottles of water a day Things were better prior to botox Doesn't feel like he has a uti now Trial trospium He will let me know if this helps [facility] 09-11-2023 Miscellaneous Notes Called to follow up on voiding/cathing data He is still needing to go very frequently Cath volumes range from 4-9 oz Void volumes 1-4 ounces Still feels like he has to pee at the time but can't go After he caths will feel he has to go 30-60 min later Drinking 1-2 bottles of water a day Things were better prior to botox Doesn't feel like he has a uti now Trial trospium He will let me know if this helps documented in this encounter [facility] 08-31-2023 Telephone encounter Note Called to follow up on UDS Cathing 4-5 times a day Voiding in between Voiding diary from 08/08 to 08/13 with 11-15 voids (caths + volutional) a day This was when he had a UTI and was only a week after botox UDS looks a lot better than this situation He still feels he is voiding frequently Needs to hold his breath to pee on his own No issue cathing He will do another voiding diary for me in a week Will call with how he is feeling [facility] Work Phone: 08-31-2023 Miscellaneous Notes Called to follow up on UDS Cathing 4-5 times a day Voiding in between Voiding diary from 08/08 to 08/13 with 11-15 voids (caths + volutional) a day This was when he had a UTI and was only a week after botox UDS looks a lot better than this situation He still feels he is voiding frequently Needs to hold his breath to pee on his own No issue cathing He will do another voiding diary for me in a week Will call with how he is feeling documented in this encounter [facility] 08-31-2023 Note HNO ID: [id number] Author: LOUIE SALOMON MD Service: ? Author Type: Physician Type: Progress Notes Filed: 08/31/2023 15:19 Note Text: UDS interpretation 300mls capacity Lots of pabd activity Strong desire at 270, No obvious DO or rise in pdet with permission to void Normal compliance Cathed for 300 [facility] 08-31-2023 History of Present illness Narrative UDS interpretation 300mls capacity Lots of pabd activity Strong desire at 270, No obvious DO or rise in pdet with permission to void Normal compliance Cathed for 300 documented in this encounter [facility] 08-31-2023 Nurse Note [facility] URODYNAMICS LAB URODYNAMIC PROCEDURE NOTE ID Verified by: Martha Kelly RN with name and birthdate. Procedure instructions reviewed with patient prior to procedure: No Currently experiencing pain: No 0 on a scale of 0 to 10 on a scale of 0-10. Does the patient have any concerns about safety in the home/falls?: Not at risk for falls Has the patient had 2 falls in the last year or 1 fall with injury or currently using assistive device (walker, cane, wheelchair, crutches): No What interventions were put in place to prevent falls during this visit: Increased observations by caregivers Has patient had any history of Mitral Valve prolapse: No MEDS:NONE Has patient had any history of prosthetics: Yes MEDS: NONE Latex allergy: No Iodine allergy: No B/O UA: YES Negative for leukocytes and negative for nitrates. UROFLOWMETRY- unable to void for pre-test uroflow. Patient ISC 4 x dialy at home CYSTOMETROGRAM Subtracted:Yes Video: No EMG: Yes First Sensation: 157 ml Strong desire: 241 ml Max. capacity: 270 ml Maximum filling detrusor pressure 1 cm of water Detrusor overactivity associated with urge: Yes Detrusor overactivity associated with leakage: No Was patient assessed for VLPP / UPP No Leaks urine with valsalva /coughs: No Lowest Leak point pressure: n/a cm of water at n/a ml PRESSURE-FLOW VOIDING STUDY Did patient void with catheters in place No Straight cath for 300 ml Max Voiding Detrusor Pressure n/acm H2O P det Q max (Max Flow): n/a cm H2O Maximum Flow Rate: n/a ml/sec Average Flow Rate: n/a ml/sec Comments: unable to void for pre-test uroflow. Patient ISC 4 x daily at home. Patient filled to capacity for testing. Permission to void with strong desire. Straining noted with attempt to void and patient stated that he usually holds his breath to void at home. Advised patient not to hold breath during testing or at home. Unable to provide voluntary void. Straight cath for 300ml. Patient left an output diary for Dr. Salomon. Will forward to MD STUDY DETAILS: Was a uroflow done at some point during the study: No Was a cystometrogram performed: Yes Was a UPP/VLPP done: No Was an EMG done: Yes Was an intraabdominal pressure recorded with urethral catheter in: No Where were pressure catheters placed: Bladder and Rectum Was contrast instilled for radiologic evaluation: No Please use Urodynamic Graph. Pt given verbal home going instructions. Pt states an understanding of instructions given. Martha Kelly RN [facility] 08-31-2023 Nurse Note [facility] URODYNAMICS LAB URODYNAMIC PROCEDURE NOTE ID Verified by: Martha Kelly RN with name and birthdate. Procedure instructions reviewed with patient prior to procedure: No Currently experiencing pain: No 0 on a scale of 0 to 10 on a scale of 0-10. Does the patient have any concerns about safety in the home/falls?: Not at risk for falls Has the patient had 2 falls in the last year or 1 fall with injury or currently using assistive device (walker, cane, wheelchair, crutches): No What interventions were put in place to prevent falls during this visit: Increased observations by caregivers Has patient had any history of Mitral Valve prolapse: No MEDS:NONE Has patient had any history of prosthetics: Yes MEDS: NONE Latex allergy: No Iodine allergy: No B/O UA: YES Negative for leukocytes and negative for nitrates. UROFLOWMETRY- unable to void for pre-test uroflow. Patient ISC 4 x dialy at home CYSTOMETROGRAM Subtracted:Yes Video: No EMG: Yes First Sensation: 157 ml Strong desire: 241 ml Max. capacity: 270 ml Maximum filling detrusor pressure 1 cm of water Detrusor overactivity associated with urge: Yes Detrusor overactivity associated with leakage: No Was patient assessed for VLPP / UPP No Leaks urine with valsalva /coughs: No Lowest Leak point pressure: n/a cm of water at n/a ml PRESSURE-FLOW VOIDING STUDY Did patient void with catheters in place No Straight cath for 300 ml Max Voiding Detrusor Pressure n/acm H2O P det Q max (Max Flow): n/a cm H2O Maximum Flow Rate: n/a ml/sec Average Flow Rate: n/a ml/sec Comments: unable to void for pre-test uroflow. Patient ISC 4 x daily at home. Patient filled to capacity for testing. Permission to void with strong desire. Straining noted with attempt to void and patient stated that he usually holds his breath to void at home. Advised patient not to hold breath during testing or at home. Unable to provide voluntary void. Straight cath for 300ml. Patient left an output diary for Dr. Salomon. Will forward to STUDY DETAILS: Was a uroflow done at some point during the study: No Was a cystometrogram performed: Yes Was a UPP/VLPP done: No Was an EMG done: Yes Was an intraabdominal pressure recorded with urethral catheter in: No Where were pressure catheters placed: Bladder and Rectum Was contrast instilled for radiologic evaluation: No Please use Urodynamic Graph. Pt given verbal home going instructions. Pt states an understanding of instructions given. Martha Kelly RN documented in this encounter [facility] 08-17-2023 Telephone encounter Note Fahad Sotelo [id number] Returned call to patient about dysuria. Still cathing 4x/day. Urine culture still in process but will send empiric antibiotic over until culture results. He expressed appreciation for the call. Daija Lares PA-C 08/17/2023 11:11 AM [facility] 08-17-2023 Miscellaneous Notes Fahad Sotelo [id number] Returned call to patient about dysuria. Still cathing 4x/day. Urine culture still in process but will send empiric antibiotic over until culture results. He expressed appreciation for the call. Daija Lares PA-C 08/17/2023 11:11 AM documented in this encounter [facility] 08-15-2023 Telephone encounter Note Fahad Sotelo [id number] Returned call to patient. Complaining of urinary frequency and urgency. Last night voiding or needing to self cath every 90 minutes or so. Small volumes. Keeping close record of urination. Bowel function is at baseline. On home bowel regimen. Discussed that we should r/o UTI since he was recently instrumented. He is unsure how close a [facility] lab is from him. Possibly closest to [place]. He will go there to drop off a sample. Daija Lares PA-C 08/15/2023 11:45 AM [facility] Work Phone: 08-15-2023 Miscellaneous Notes Fahad A Ashleigh [phone] Returned call to patient. Complaining of urinary frequency and urgency. Last night voiding or needing to self cath every 90 minutes or so. Small volumes. Keeping close record of urination. Bowel function is at baseline. On home bowel regimen. Discussed that we should r/o UTI since he was recently instrumented. He is unsure how close a [facility] lab is from him. Possibly closest to [place]. He will go there to drop off a sample. Daija Lares PA-C 08/15/2023 11:45 AM documented in this encounter [facility] 08-09-2023 Telephone encounter Note Fahad Delgadogume had dilation on 08/02/2023 with plan to remove Duncan after 2-5 days and then resume ISC QID. Scheduled for UDS on 08/31/2023. Bladder is reportedly poorly compliant with small capacity. Called Fahad Sotelo. He reports that he removed Duncan on 08/04/2023. Yesterday, he started having hesitancy and getting larger volumes when he caths. [place] urge to cath 6-7 times yesterday. He did not measure cathed or voided volumes. He denies pain with voiding or cathing and difficulty passing catheters. He also had difficulty passing stool yesterday. Today, he has had a normal BM and feels like urinary symptoms are also somewhat improved. Reassured Fahad Sotelo that it is not unusual to have increased difficulty mounting bladder contraction for several days after anesthesia and when constipated. Encouraged him to focus on getting bowels on track. Encouraged him to measure voided and cathed volumes for the next 2-3 days. Encouraged him to call again on 08/13/2023 if he does not feel like symptoms are improving. Fifi Gregory APRN.CNP [facility] Work Phone: 08-09-2023 Miscellaneous Notes Fahad Sotelo had dilation on 08/02/2023 with plan to remove Duncan after 2-5 days and then resume ISC QID. Scheduled for UDS on 08/31/2023. Bladder is reportedly poorly compliant with small capacity. Called Fahad Sotelo. He reports that he removed Duncan on 08/04/2023. Yesterday, he started having hesitancy and getting larger volumes when he caths. [place] urge to cath 6-7 times yesterday. He did not measure cathed or voided volumes. He denies pain with voiding or cathing and difficulty passing catheters. He also had difficulty passing stool yesterday. Today, he has had a normal BM and feels like urinary symptoms are also somewhat improved. Reassured Fahad Sotelo that it is not unusual to have increased difficulty mounting bladder contraction for several days after anesthesia and when constipated. Encouraged him to focus on getting bowels on track. Encouraged him to measure voided and cathed volumes for the next 2-3 days. Encouraged him to call again on 08/13/2023 if he does not feel like symptoms are improving. Fifi Gregory APRN.CNP ----- Message from Maite Glass MA sent at 08/09/2023 8:45 AM EDT ----- Patient feels like he has to urinate all the time when he does go he has to hold his breath When he self caths a lot of urine comes out He is asking for a call Thanks Maite documented in this encounter [facility] 08-09-2023 Telephone encounter Note ----- Message from Maite Glass MA sent at 08/09/2023 8:45 AM EDT ----- Patient feels like he has to urinate all the time when he does go he has to hold his breath When he self caths a lot of urine comes out He is asking for a call Thanks Maite [facility] 08-02-2023 Note HNO ID: [id number] Author: ADDIE MOREIRA APRN.CRNA Service: Anesthesiology Author Type: Nurse Flight Surveyor Type: Anesthesia Procedure Notes Filed: 08/02/2023 09:31 Note Text: ANESTHESIOLOGY PROCEDURE NOTE Airway General Information Procedure Start Time/Medication Administration: 08/02/2023 9:09 AM Procedure End Time: 08/02/2023 9:30 AM Patient location during procedure: OR Timeout Performed Pre-procedure: timeout performed Consent Obtained: Yes Patient identity confirmed: arm band Staffing Performed by: anesthesiologist and FILTER SCREEN CLEANER Indications and Patient Condition Indications for airway management: anesthesia Preoxygenated: yes anesthesia circuit Method: asleep Cricoid Pressure: No Manual In-Line Stabilization: No Difficult Mask: No Airway Accessory: LMA Final Airway Details Final airway type: supraglottic airway Number of attempts at approach: 1 Ventilation between attempts: BVM Final Supraglottic Airway: i-gel Size 5 Seal Adequate: yes Failed airway: no Unrecognized esophageal intubation: no Airway not difficult SIGNATURE: Addie Moreira APRN.FILTER SCREEN CLEANER PATIENT NAME: Fahad Sotelo DATE: August 02, 2023 TIME: 9:30 AM CSN: [id number] [facility] 07-11-2023 Telephone encounter Note Called patient re: urine culture results He is not having symptoms Because we are planning a procedure I would rec treatment Abx sent to his pharmacy [facility] 07-11-2023 Miscellaneous Notes Called patient re: urine culture results He is not having symptoms Because we are planning a procedure I would rec treatment Abx sent to his pharmacy documented in this encounter [facility] 07-05-2023 History and physical note HISTORY AND PHYSICAL EXAMINATION SERVICE DATE: 07/05/2023 SERVICE TIME: 9:47 AM PRIMARY CARE PHYSICIAN: Stanton Velasco II, MD, MD REASON FOR VISIT: Fahad Sotelo is a 72 year old male who is scheduled for DILATION OF URETHRAL STRICTURE BY PASSAGE OF SOUND OR URETHRAL DILATOR, MALE; INITIAL CYSTOURETHROSCOPY W/INJECTION(S) FOR CHEMODENERVATION OF THE BLADDER at the request of Dr. Louie Salomon for consultation. My final recommendation will be communicated back to the requesting physician by way of shared medical record or letter. Assessment Patient has the following medical conditions which may affect jayant-operative course: CAD (coronary artery disease) Assessment: LA in 1997. 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 in 2004 emergency CABG due to complicated PCI stable on ASA follows with Cardiology Last OV 06/11/2023 Cervical spondylosis with myelopathy Assessment: s/p cervical fusion Essential hypertension Assessment: Stable on medication Today BP: 124/70 To take medication morning of surgery Mixed hyperlipidemia Assessment: stable on medication Obesity, Class I, BMI 30-34.9 Assessment: Body mass index is 32.73 kg/m . Urge incontinence Assessment: Patient states that he self caths twice daily. Leal Activity Status Index: METS: Walk indoors, such as around the house (1.75 METs) Do light work around the house, such as dusting or washing dishes (2.70 METs) Take care of self; that is eating, dressing, bathing, using the toilet (2.75 METs) Walk a block or two on level ground (2.75 METs) Do moderate work around the house, such as vacuuming, sweeping floors, or carrying in groceries (3.50 METs) Do yardwork, such as raking leaves, weeding, or pushing a power mower (4.50 METs) Climb a flight of stairs or walk up a hill (5.50 METs) DASI Score: 23.45 Patient is totally dependent. Clinical Frailty Scale: 3. Well, with treated comorbid disease STOP-Bang Score: Has or is being treated for high blood pressure Patient over 50 years old Male patient Denies snoring loudly Denies feeling tired, fatigued, or sleepy during the daytime Has not been observed to stop breathing or choking/gasping during sleep BMI less than or equal to 35 kg/m^2 Does not have a large neck STOP-Bang Score: 3 [id number] Score: Age: 65-74 Sex: male CHF history: No Hypertension history: Yes Stroke/TIA/thromboembolism history: No Vascular disease history: Yes Diabetes history: No [id number] Score: 3 ARISCAT Score: Age: 51-80 Preoperative SpO2: >=96% Preoperative anemia: Yes Surgical incision: peripheral Duration of surgery: <2 hrs Emergency procedure: No ARISCAT Score: ANESTHESIA FINDINGS: Intubation History: No history of difficult intubation. No abnormal airway history Significant Anesthesia Considerations: none Airway History: No history of difficult airway No abnormal airway history I - PHYSICAL EVALUATION AIRWAY Patient intubated: No. Tracheostomy tube not present Mallampati: II. TM distance: >3 FB. Neck ROM: full ROM without neurological symptoms. Mouth opening: adequate. Short neck: no. Thick neck: no Smith present: no Lip Bite Test: II Microretrognathia/Micronagthia/Re cessed Chin: No DENTAL Dental findings: teeth intact. II - ANESTHESIA PLAN Anesthetic plan additional comments: *PACC/TCI - anesthesia choice. Beta Domingo Monitoring Plan Post Procedure Analgesic Plan Prepared for surgery: This patient is optimally prepared for surgery pending LABS. CONSULTS: Patient does not require consults for optimization at this time. The Following Tests/Procedures Have Been Initiated: Orders per surgeon Planned Anesthetic: Per anesthesia choice Subjective CHIEF COMPLAINT: Urethral stricture HPI: 72 year old male with a history of CAD, prior CABG, spine surgery who presents for evaluation for urinary urgency, frequency, urethral stricture Main complaint is frequency, slow stream This has been going on for ten years Cathing twice a day - caths post void and gets usually a very small amount out Was using a 16, then 14, then back to 16F after Dr Ramos did the dilation Voids roughly hourly, sometimes every 10 minutes Urethral dilation in May [address] Ramos He has been doing CIC daily with a 16F to maintain patency PAST MEDICAL HISTORY Diagnosis Date CAD (coronary artery disease) 2005 LA in 1997. Had a stent placed in 2008 c/b coronary artery dissection and that lead to a CABG x1 in 2008 Former smoker quit 1997 Hyperlipidemia Hypertension Intermittent self-catheterization of bladder Urge incontinence of urine PAST SURGICAL HISTORY Procedure Laterality Date ARTHRP KNE CONDYLE&PLATU MEDIAL&LAT COMPARTMENTS 10/30/2018 right CABG (1) VEIN GRAFT & ARTERIAL GRAFT 2008 coronary dissection during stent placement CHEMODNRVTJ [facility] INNERVATED FACIAL NRV UNIL CYSTO.PANENDO 11/24/2021 Dr. Dye CYSTO.PANENDO 05/31/2022 CYSTO.PANENDO N/A 06/04/2023 CYSTOSCOPY 03/29/2017 Dr. Fady Dye - [facility] LEFT HEART CATH,PERCUTANEOUS 05/11/2003 Cardiac cath, L heart LEFT HEART CATH,PERCUTANEOUS 12/08/2009 Cardiac cath, L heart LEFT HEART CATH,PERCUTANEOUS 03/15/2011 Cardiac cath, L heart with Stent placement OHS OFF PUMP PAST SURGICAL HISTORY OF Lumbar spine surgery. PAST SURGICAL HISTORY OF 05/29/2017 cervical spine surgery with fusion ROTATOR CUFF REPAIR Left 2016 TRURL ELECTROSURG RESCJ PROSTATE BLEED COMPLETE URODYNAMICS 03/29/2017 Procedure done by Nava Back LPN, [facility] FAMILY HISTORY Problem Relation Age of Onset Coronary Artery Disease Mother Stroke Mother 65 Diabetes Sister Diabetes Brother Anesthesia Problems No Family History SOCIAL HISTORY: Social History Tobacco Use Smoking status: Former Packs/day: 1.25 Years: 10.00 Additional pack years: 0.00 Total pack years: 12.50 Types: Cigarettes Quit date: 11/13/1997 Years since quittin.6 Smokeless tobacco: Never Vaping Use Vaping Use: Never used Substance Use Topics Alcohol use: Yes Comment: 2 cans of beer per year. Drug use: No Comment: denies tx for drug/alcohol abuse in the past. Prior to Admission medications as of 07/05/23 0955 Medication Sig Last Dose Taking plecanatide (TRULANCE) 3 mg tablet Take 1 tablet by mouth once daily. Taking Yes nitroglycerin sublingual (NITROQUICK) 0.4 mg SL tablet as directed Sublingual Taking Yes Amoxicillin 500 mg tablet TAKE 4 TABLETS BY MOUTH 1 (ONE) HOUR BEFORE procedure then TAKE 2 TABLETS BY MOUTH 6 (SIX) hours after procedure Taking Yes acetaminophen (TYLENOL) 500 mg tablet Take 2 tablets by mouth every 6 hours as needed for pain. Taking Yes aspirin, enteric coated (ASPIRIN, ENTERIC COATED) 81 mg EC tablet Take 1 tablet by mouth twice daily. Taking Yes metoprolol tartrate, short acting, (LOPRESSOR) 50 mg tablet Take 1 tablet by mouth twice daily. Taking Yes COMPOUNDED PRESCRIPTION 16 fr catheters Taking Yes lisinopril (ZESTRIL, PRINIVIL) 20 mg tablet Take 20 mg by mouth once daily. Taking Yes ascorbic acid, vitamin C, (VITAMIN C) 500 mg tablet Take 1 tablet by mouth once daily. Taking Yes MAGNESIUM HYDROXIDE (MILK OF MAGNESIA ORAL) Take 1 Bottle by mouth as needed. Taking Yes isosorbide mononitrate ER (IMDUR) 60 mg 24 hr tablet Take 60 mg by mouth once daily. Taking Yes cholecalciferol (VITAMIN D3) 1,000 unit tab tablet Take 1,000 Units by mouth once daily. Taking Yes Multivitamin capsule Take 1 capsule by mouth once daily. Taking Yes rosuvastatin (CRESTOR) 40 mg tablet Take 40 mg by mouth once daily. Taking Yes No medication comments found. ALLERGIES Allergen Reactions Bee Pollen Swelling Bee Sting Swelling Hay Fever [Seasonal* Other: See Comments Sneezing. Oxybutynin Other: See Comments Other Reaction(s): Constipation Venom-Honey Bee Other: See Comments, Swelling Other Reaction(s): Unknown Trospium Other: See Comments Other Reaction(s): Xerostomia Covid Immunization Dates Overdue - Covid-19 Vaccine ( season) Overdue since 04/12/2023 12/12/2022 Imm Admin: COVID-19 vaccine, age 12+ yr, season (MODERNA) 11/17/2021 Imm Admin: COVID-19 vaccine, age 12+ yr, bivalent (MODERNA) 08/12/2021 Imm Admin: COVID-19 original vaccine, full dose, monovalent (MODERNA) 12/14/2020 Imm Admin: COVID-19 original vaccine, full dose, monovalent (MODERNA) 05/05/2020 Imm Admin: COVID-19 original vaccine, full dose, monovalent (MODERNA) Only the first 5 history entries have been loaded, but more history exists. REVIEW OF SYSTEMS: PAIN ASSESSMENT: General: No weight loss, malaise or fevers. Neuro: No history of TIA's, stroke, MOBILE DEVELOPMENT MANAGER tumor, impaired sensorium, hemiplegia, paraplegia or quadraplegia. No neurological symptoms or problems. Respiratory: No history of current cough or dyspnea, or pneumonia in the past 6 weeks. No history of respiratory/pulmonary symptoms or problems. Cardiovascular: Positive for: HLD, Hypertension + CAD s/p CABG 2004 on ASA No recent chest pain, SOB. Denies rest pain, gangrene or revascularization/amputation for PVD GI: No history of GI symptoms or problems. No history of esophageal varices, recent ascites, or ETOH greater than 2 drinks per day. : See HPI Endocrine: No history of diabetes. Has not taken steroids within the past 30 days. No history of endocrinological symptoms or problems. Hematology: Chronic anti-coagulation / platelet meds (Aspirin) Oncology: No history of CA metastasis, chemo within 30 days, or radiotherapy within 90 days. Has not lost 10% of body wt in 6 months. No history of oncological symptoms or problems. Psych: No history of psychiatric symptoms or problems. Musculoskeletal: Back pain and Joint pain Skin: Negative for lesions, rash and itching. Objective PHYSICAL EXAM: VITALS: BP 124/70 Pulse 65 Temp (Src) 97.9 (Temporal) Resp 16 Ht 5' 9.5 (1.77m) Wt 224 lb 13.9 oz (102.0kg) SpO2 97% BMI 32.74 kg/(m^2). General: Alert and oriented, No acute distress Skin: Normal color, no rash, no lesions. HEENT: EOM, pupils equal, round and reactive. Cardiovascular: Normal S1 & S2, no rubs, murmurs or gallops. No JVD. Pulse regular. Lungs: Normal breath sounds, no wheezes or crackles. Abdomen: Soft, non-tender, no rigidity., Positive bowel sounds Extremities: No deformity, no edema or tenderness, no joint swelling or clubbing. Neurological: Normal cognition and motor skills. Gait normal. No weakness or sensory deficit. Pulses: Carotid and radial pulses normal +2. Diagnostic tests reviewed for today's visit: Lab Value Units Date High Low HB No results within date range. HCT No results within date range. WBC No results within date range. PLT No results within date range. NA No results within date range. K No results within date range. GLUC No results within date range. BUN No results within date range. CREAT No results within date range. PTSEC No results within date range. INR No results within date range. APTT No results within date range. ALT No results within date range. AST No results within date range. TBILI No results within date range. TSH No results within date range. Lab Value Units Date High Low HCGQT No results within date range. UHCG No results within date range. HCG, BODY* No results within date range. Lab Value Units Date High Low ABORHD No results within date range. ABSCREEN No results within date range. Hemoglobin A1C (%) Date Value 04/12/2021 5.9 10/10/2018 5.3 NM ROSENDA PERF SPECT REST STR Anatomical Region Laterality Modality -- -- [place] [id number] Nuclear Medicine Report Signed Patient: Fahad Sotelo MR#: [id number] : 1950 Acct:[id number] Age/Sex: 72 / M ADM Date: 06/27/23 Loc: [place] Attending Dr: Tamanna Joshua M.D. Ordering Physician: Tamanna Joshua M.D. Date of Service: 06/27/23 Procedure(s): NM rosenda perf SPECT rest str Accession Number(s): [id number] cc: STANTON VELASCO ; Tamanna Joshua M.D. Patient Name: FAHAD SOTELO MR#: [id number] : 1950 Exam Date: 06/27/2023 Ordering Doctor: DR TAMANNA JOSHUA M.D. RADIOLOGY REPORT PROCEDURE: NM ROSENDA PERF SPECT REST STR COMPARISON: None. INDICATIONS: CORONARY ARTERY DISEASE TECHNIQUE: Exam Description: Stress/Rest one day protocol gated SPECT Rest Imagin.2 mCi Tc-99m Cardiolite IV on 06/27/2023 Stress Imaging 30.2 mCi Tc-99m Cardiolite IV on 06/27/2023 Exercise Protocol: 0.4 mg Lexiscan given IV Heart Rate (bpm): Rest: 62 Max: 86 PMHR: 58 Blood Pressure: Rest: 150/76 Max: 150/76 Symptoms: Rest and peak stress ECG findings were normal and the exercise portion of the study was normal per attending physician Dr. Joshua . For more details please see separate cardiac stress test report. FINDINGS: QUALITY OF STUDY: Excellent. PERFUSION DEFECT: None. LOCATION: N/A SIZE: N/A. SEVERITY: N/A. TYPE: N/A. WALL MOTION: Normal. LV SIZE: Normal. 112 mL. TID / TCD: None; 1.0 LVEF: Normal. Calculated EF 62%. SUMMARY: Myocardial perfusion imaging study is NORMAL. CONCLUSION: 1. Normal nuclear medicine myocardial perfusion scan. ECHO Order: [id number] Narrative PERFORMED AT [facility] LOCATION:[place] [address] Patient: ASHLEIGH Shelby Exam Date: 06/07/2022 : 1950 Gender:M Ordering : DR TAMANNA JOSHUA M.D. Admission #: [id number] Family : DR STANTON VELASCO M.D. Order #: [id number] CLICK HERE TO VIEW EXAM ECHOCARDIOGRAM REPORT PROCEDURE: CARDIO PULMONARY ECHOCARDIO M/2D COMP INDICATIONS: Coronary artery disease CABG hypertension COMPARISON: None. DESCRIPTION: COMPLETE ECHOCARDIOGRAM Real-time transthoracic echocardiography with 2D M-mode spectral and color flow Doppler performed. QUALITY: Technical quality was good. LEFT VENTRICLE: Normal chamber size. Normal left ventricular wall thickness. LV EF: Normal left ventricular ejection fraction (>55%). DIASTOLIC: Normal diastolic function. ATRIAL SEPTUM: Visually appears intact. LEFT ATRIUM: Normal chamber size. RIGHT ATRIUM: Normal chamber size. RIGHT VENTRICLE: Normal chamber size. Normal systolic function. TRICUSPID VALVE: Normal mobility and thickness. No stenosis with no regurgitation. MITRAL VALVE: Normal mobility and thickness. No evidence of mitral valve stenosis. No mitral regurgitation. AORTIC VALVE: Normal trileaflet appearance. Mildly calcified aortic valve. Normal leaflet mobility. No evidence of aortic valve stenosis. No aortic regurgitation. AORTIC ROOT: Normal diameter and appearance. PULMONIC VALVE: Normal thickness and mobility. No stenosis. No regurgitation. PERICARDIUM: Anterior free space; trivial effusion versus fat pad. IVC: Collapses with inspirations. CONCLUSION: Global left ventricular systolic function is normal; visually estimated ejection fraction is 60 to 65%. Normal diastolic function. The right ventricle is normal in size and systolic function. No significant valvular abnormalities. Anterior free space; trivial effusion versus fat pad. Adult Echocardiography Procedure Report Left Ventricle LVEDD (3.7 - 5.6 cm): 4.69 cm LVESD (2.2 - 4.0 cm): 2.76 cm LVIVS thickness (0.6 - 1.2 cm): 1.01 cm LVPW thickness (0.5 - 1.0 cm): 0.98 cm e'': 0.12 m/s E - e'': 4.77 LVOT Max Gradient: 3.82 mm[Hg] Peak Velocity (LVOT): 0.98 m/s LVOT Diameter 2.56 cm Left Ventricular Ejection Fraction: 72.06 % 72.06 % Left Atrium LA Volume Index (2D A2C): 58.76 ml 58.76 ml Left Atrium Systolic Dimension: 4.39 cm Mitral Valve MV E to A Ratio: 0.68 Mitral Valve A-Wave Peak Velocity: 0.81 m/s Mitral Valve E-Wave Peak Velocity: 0.56 m/s Right Ventricle Aorta AO Root Diam: 3.93 cm Aortic Valve AoV Area (Peak Gallo): 4.66 cm2 4.66 cm2 Peak Velocity(Antegrade Flow): 1.08 m/s Peak Gradient(Antegrade Flow): 4.68 mm[Hg] Tricuspid Valve Peak Velocity: 0.41 m/s Pulmonic Valve Peak Velocity: 1.27 m/s 0.90 m/s Peak Gradient: 6.45 mm[Hg] 3.26 mm[Hg] Right Atrium Right Atrium Systolic Pressure: 62.18 ml 64.89 ml 59.48 ml Dictated by: Tamanna Joshua M.D. on 06/07/2022 at 15:48 Approved by: Tamanna Joshua M.D. on 06/07/2022 at 15:50 Exam End: -- Specimen Collected: 06/07/22 Last Resulted: 06/07/22 12:00 AM Received From: [facility] No new labs or tests Instructions Given to Patient: Instructions located in the after visit summary. Patient given verbal and written preop instructions and voices comprehension and compliance. SIGNATURE: Rigo Cano APRN.CNP PATIENT NAME: Fahad Sotelo DATE: 07/05/2023 TIME: 1:35 PM [facility] 07-05-2023 History and physical note HISTORY AND PHYSICAL EXAMINATION SERVICE DATE: 07/05/2023 SERVICE TIME: 9:47 AM PRIMARY CARE PHYSICIAN: Stanton Velasco II, MD, MD REASON FOR VISIT: Fahad Sotelo is a 72 year old male who is scheduled for DILATION OF URETHRAL STRICTURE BY PASSAGE OF SOUND OR URETHRAL DILATOR, MALE; INITIAL CYSTOURETHROSCOPY W/INJECTION(S) FOR CHEMODENERVATION OF THE BLADDER at the request of Dr. Louie Salomon for consultation. My final recommendation will be communicated back to the requesting physician by way of shared medical record or letter. Assessment Patient has the following medical conditions which may affect jayant-operative course: CAD (coronary artery disease) Assessment: LA in 1997. 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 in 2004 emergency CABG due to complicated PCI stable on ASA follows with Cardiology Last OV 06/11/2023 Cervical spondylosis with myelopathy Assessment: s/p cervical fusion Essential hypertension Assessment: Stable on medication Today BP: 124/70 To take medication morning of surgery Mixed hyperlipidemia Assessment: stable on medication Obesity, Class I, BMI 30-34.9 Assessment: Body mass index is 32.73 kg/m . Urge incontinence Assessment: Patient states that he self caths twice daily. Leal Activity Status Index: METS: Walk indoors, such as around the house (1.75 METs) Do light work around the house, such as dusting or washing dishes (2.70 METs) Take care of self; that is eating, dressing, bathing, using the toilet (2.75 METs) Walk a block or two on level ground (2.75 METs) Do moderate work around the house, such as vacuuming, sweeping floors, or carrying in groceries (3.50 METs) Do yardwork, such as raking leaves, weeding, or pushing a power mower (4.50 METs) Climb a flight of stairs or walk up a hill (5.50 METs) DASI Score: 23.45 Patient is totally dependent. Clinical Frailty Scale: 3. Well, with treated comorbid disease STOP-Bang Score: Has or is being treated for high blood pressure Patient over 50 years old Male patient Denies snoring loudly Denies feeling tired, fatigued, or sleepy during the daytime Has not been observed to stop breathing or choking/gasping during sleep BMI less than or equal to 35 kg/m^2 Does not have a large neck STOP-Bang Score: 3 [id number] Score: Age: 65-74 Sex: male CHF history: No Hypertension history: Yes Stroke/TIA/thromboembolism history: No Vascular disease history: Yes Diabetes history: No [id number] Score: 3 ARISCAT Score: Age: 51-80 Preoperative SpO2: >=96% Preoperative anemia: Yes Surgical incision: peripheral Duration of surgery: <2 hrs Emergency procedure: No ARISCAT Score: ANESTHESIA FINDINGS: Intubation History: No history of difficult intubation. No abnormal airway history Significant Anesthesia Considerations: none Airway History: No history of difficult airway No abnormal airway history I - PHYSICAL EVALUATION AIRWAY Patient intubated: No. Tracheostomy tube not present Mallampati: II. TM distance: >3 FB. Neck ROM: full ROM without neurological symptoms. Mouth opening: adequate. Short neck: no. Thick neck: no Smith present: no Lip Bite Test: II Microretrognathia/Micronagthia/Re cessed Chin: No DENTAL Dental findings: teeth intact. II - ANESTHESIA PLAN Anesthetic plan additional comments: *PACC/TCI - anesthesia choice. Beta Domingo Monitoring Plan Post Procedure Analgesic Plan Prepared for surgery: This patient is optimally prepared for surgery pending LABS. CONSULTS: Patient does not require consults for optimization at this time. The Following Tests/Procedures Have Been Initiated: Orders per surgeon Planned Anesthetic: Per anesthesia choice Subjective CHIEF COMPLAINT: Urethral stricture HPI: 72 year old male with a history of CAD, prior CABG, spine surgery who presents for evaluation for urinary urgency, frequency, urethral stricture Main complaint is frequency, slow stream This has been going on for ten years Cathing twice a day - caths post void and gets usually a very small amount out Was using a 16, then 14, then back to 16F after Dr Ramos did the dilation Voids roughly hourly, sometimes every 10 minutes Urethral dilation in May [address] Ramos He has been doing CIC daily with a 16F to maintain patency PAST MEDICAL HISTORY Diagnosis Date CAD (coronary artery disease) 2005 LA in 1997. Had a stent placed in 2008 c/b coronary artery dissection and that lead to a CABG x1 in 2008 Former smoker quit 1997 Hyperlipidemia Hypertension Intermittent self-catheterization of bladder Urge incontinence of urine PAST SURGICAL HISTORY Procedure Laterality Date ARTHRP KNE CONDYLE&PLATU MEDIAL&LAT COMPARTMENTS 10/30/2018 right CABG (1) VEIN GRAFT & ARTERIAL GRAFT 2008 coronary dissection during stent placement CHEMODNRVTJ [facility] INNERVATED FACIAL NRV UNIL CYSTO.PANENDO 11/24/2021 Dr. Dye CYSTO.PANENDO 05/31/2022 CYSTO.PANENDO N/A 06/04/2023 CYSTOSCOPY 03/29/2017 Dr. Fady Dye - [facility] LEFT HEART CATH,PERCUTANEOUS 05/11/2003 Cardiac cath, L heart LEFT HEART CATH,PERCUTANEOUS 12/08/2009 Cardiac cath, L heart LEFT HEART CATH,PERCUTANEOUS 03/15/2011 Cardiac cath, L heart with Stent placement OHS OFF PUMP PAST SURGICAL HISTORY OF Lumbar spine surgery. PAST SURGICAL HISTORY OF 05/29/2017 cervical spine surgery with fusion ROTATOR CUFF REPAIR Left 2016 TRURL ELECTROSURG RESCJ PROSTATE BLEED COMPLETE URODYNAMICS 03/29/2017 Procedure done by Nava Back LPN, [facility] FAMILY HISTORY Problem Relation Age of Onset Coronary Artery Disease Mother Stroke Mother 65 Diabetes Sister Diabetes Brother Anesthesia Problems No Family History SOCIAL HISTORY: Social History Tobacco Use Smoking status: Former Packs/day: 1.25 Years: 10.00 Additional pack years: 0.00 Total pack years: 12.50 Types: Cigarettes Quit date: 11/13/1997 Years since quittin.6 Smokeless tobacco: Never Vaping Use Vaping Use: Never used Substance Use Topics Alcohol use: Yes Comment: 2 cans of beer per year. Drug use: No Comment: denies tx for drug/alcohol abuse in the past. Prior to Admission medications as of 07/05/23 0955 Medication Sig Last Dose Taking plecanatide (TRULANCE) 3 mg tablet Take 1 tablet by mouth once daily. Taking Yes nitroglycerin sublingual (NITROQUICK) 0.4 mg SL tablet as directed Sublingual Taking Yes Amoxicillin 500 mg tablet TAKE 4 TABLETS BY MOUTH 1 (ONE) HOUR BEFORE procedure then TAKE 2 TABLETS BY MOUTH 6 (SIX) hours after procedure Taking Yes acetaminophen (TYLENOL) 500 mg tablet Take 2 tablets by mouth every 6 hours as needed for pain. Taking Yes aspirin, enteric coated (ASPIRIN, ENTERIC COATED) 81 mg EC tablet Take 1 tablet by mouth twice daily. Taking Yes metoprolol tartrate, short acting, (LOPRESSOR) 50 mg tablet Take 1 tablet by mouth twice daily. Taking Yes COMPOUNDED PRESCRIPTION 16 fr catheters Taking Yes lisinopril (ZESTRIL, PRINIVIL) 20 mg tablet Take 20 mg by mouth once daily. Taking Yes ascorbic acid, vitamin C, (VITAMIN C) 500 mg tablet Take 1 tablet by mouth once daily. Taking Yes MAGNESIUM HYDROXIDE (MILK OF MAGNESIA ORAL) Take 1 Bottle by mouth as needed. Taking Yes isosorbide mononitrate ER (IMDUR) 60 mg 24 hr tablet Take 60 mg by mouth once daily. Taking Yes cholecalciferol (VITAMIN D3) 1,000 unit tab tablet Take 1,000 Units by mouth once daily. Taking Yes Multivitamin capsule Take 1 capsule by mouth once daily. Taking Yes rosuvastatin (CRESTOR) 40 mg tablet Take 40 mg by mouth once daily. Taking Yes No medication comments found. ALLERGIES Allergen Reactions Bee Pollen Swelling Bee Sting Swelling Hay Fever [Seasonal* Other: See Comments Sneezing. Oxybutynin Other: See Comments Other Reaction(s): Constipation Venom-Honey Bee Other: See Comments, Swelling Other Reaction(s): Unknown Trospium Other: See Comments Other Reaction(s): Xerostomia Covid Immunization Dates Overdue - Covid-19 Vaccine ( season) Overdue since 04/12/2023 12/12/2022 Imm Admin: COVID-19 vaccine, age 12+ yr, 2022- season (MODERNA) 11/17/2021 Imm Admin: COVID-19 vaccine, age 12+ yr, bivalent (MODERNA) 08/12/2021 Imm Admin: COVID-19 original vaccine, full dose, monovalent (MODERNA) 12/14/2020 Imm Admin: COVID-19 original vaccine, full dose, monovalent (MODERNA) 05/05/2020 Imm Admin: COVID-19 original vaccine, full dose, monovalent (MODERNA) Only the first 5 history entries have been loaded, but more history exists. REVIEW OF SYSTEMS: PAIN ASSESSMENT: General: No weight loss, malaise or fevers. Neuro: No history of TIA's, stroke, MOBILE DEVELOPMENT MANAGER tumor, impaired sensorium, hemiplegia, paraplegia or quadraplegia. No neurological symptoms or problems. Respiratory: No history of current cough or dyspnea, or pneumonia in the past 6 weeks. No history of respiratory/pulmonary symptoms or problems. Cardiovascular: Positive for: HLD, Hypertension + CAD s/p CABG 2004 on ASA No recent chest pain, SOB. Denies rest pain, gangrene or revascularization/amputation for PVD GI: No history of GI symptoms or problems. No history of esophageal varices, recent ascites, or ETOH greater than 2 drinks per day. : See HPI Endocrine: No history of diabetes. Has not taken steroids within the past 30 days. No history of endocrinological symptoms or problems. Hematology: Chronic anti-coagulation / platelet meds (Aspirin) Oncology: No history of CA metastasis, chemo within 30 days, or radiotherapy within 90 days. Has not lost 10% of body wt in 6 months. No history of oncological symptoms or problems. Psych: No history of psychiatric symptoms or problems. Musculoskeletal: Back pain and Joint pain Skin: Negative for lesions, rash and itching. Objective PHYSICAL EXAM: VITALS: BP 124/70 Pulse 65 Temp (Src) 97.9 (Temporal) Resp 16 Ht 5' 9.5 (1.77m) Wt 224 lb 13.9 oz (102.0kg) SpO2 97% BMI 32.74 kg/(m^2). General: Alert and oriented, No acute distress Skin: Normal color, no rash, no lesions. HEENT: EOM, pupils equal, round and reactive. Cardiovascular: Normal S1 & S2, no rubs, murmurs or gallops. No JVD. Pulse regular. Lungs: Normal breath sounds, no wheezes or crackles. Abdomen: Soft, non-tender, no rigidity., Positive bowel sounds Extremities: No deformity, no edema or tenderness, no joint swelling or clubbing. Neurological: Normal cognition and motor skills. Gait normal. No weakness or sensory deficit. Pulses: Carotid and radial pulses normal +2. Diagnostic tests reviewed for today's visit: Lab Value Units Date High Low HB No results within date range. HCT No results within date range. WBC No results within date range. PLT No results within date range. NA No results within date range. K No results within date range. GLUC No results within date range. BUN No results within date range. CREAT No results within date range. PTSEC No results within date range. INR No results within date range. APTT No results within date range. ALT No results within date range. AST No results within date range. TBILI No results within date range. TSH No results within date range. Lab Value Units Date High Low HCGQT No results within date range. UHCG No results within date range. HCG, BODY* No results within date range. Lab Value Units Date High Low ABORHD No results within date range. ABSCREEN No results within date range. Hemoglobin A1C (%) Date Value 04/12/2021 5.9 10/10/2018 5.3 NM ROSENDA PERF SPECT REST STR Anatomical Region Laterality Modality -- -- [place] [id number] Nuclear Medicine Report Signed Patient: Fahad Sotelo MR#: [id number] : 1950 Acct:[id number] Age/Sex: 72 / M ADM Date: 06/27/23 Loc: [place] Attending Dr: Tamanna Joshua M.D. Ordering Physician: Tamanna Joshua M.D. Date of Service: 06/27/23 Procedure(s): NM rosenda perf SPECT rest str Accession Number(s): [id number] cc: STANTON VELASCO ; Tamanna Joshua M.D. Patient Name: FAHAD SOTELO MR#: [id number] : 1950 Exam Date: 06/27/2023 Ordering Doctor: DR TAMANNA JOSHUA M.D. RADIOLOGY REPORT PROCEDURE: NM ROSENDA PERF SPECT REST STR COMPARISON: None. INDICATIONS: CORONARY ARTERY DISEASE TECHNIQUE: Exam Description: Stress/Rest one day protocol gated SPECT Rest Imagin.2 mCi Tc-99m Cardiolite IV on 06/27/2023 Stress Imaging 30.2 mCi Tc-99m Cardiolite IV on 06/27/2023 Exercise Protocol: 0.4 mg Lexiscan given IV Heart Rate (bpm): Rest: 62 Max: 86 PMHR: 58 Blood Pressure: Rest: 150/76 Max: 150/76 Symptoms: Rest and peak stress ECG findings were normal and the exercise portion of the study was normal per attending physician Dr. Joshua . For more details please see separate cardiac stress test report. FINDINGS: QUALITY OF STUDY: Excellent. PERFUSION DEFECT: None. LOCATION: N/A SIZE: N/A. SEVERITY: N/A. TYPE: N/A. WALL MOTION: Normal. LV SIZE: Normal. 112 mL. TID / TCD: None; 1.0 LVEF: Normal. Calculated EF 62%. SUMMARY: Myocardial perfusion imaging study is NORMAL. CONCLUSION: 1. Normal nuclear medicine myocardial perfusion scan. ECHO Order: [id number] Narrative PERFORMED AT [facility] LOCATION:[place] [address] Patient: ASHLEIGH Shelby Exam Date: 06/07/2022 : 1950 Gender:M Ordering : DR TAMANNA JOSHUA M.D. Admission #: [id number] Family : DR STANTON VELASCO M.D. Order #: [id number] CLICK HERE TO VIEW EXAM ECHOCARDIOGRAM REPORT PROCEDURE: CARDIO PULMONARY ECHOCARDIO M/2D COMP INDICATIONS: Coronary artery disease CABG hypertension COMPARISON: None. DESCRIPTION: COMPLETE ECHOCARDIOGRAM Real-time transthoracic echocardiography with 2D M-mode spectral and color flow Doppler performed. QUALITY: Technical quality was good. LEFT VENTRICLE: Normal chamber size. Normal left ventricular wall thickness. LV EF: Normal left ventricular ejection fraction (>55%). DIASTOLIC: Normal diastolic function. ATRIAL SEPTUM: Visually appears intact. LEFT ATRIUM: Normal chamber size. RIGHT ATRIUM: Normal chamber size. RIGHT VENTRICLE: Normal chamber size. Normal systolic function. TRICUSPID VALVE: Normal mobility and thickness. No stenosis with no regurgitation. MITRAL VALVE: Normal mobility and thickness. No evidence of mitral valve stenosis. No mitral regurgitation. AORTIC VALVE: Normal trileaflet appearance. Mildly calcified aortic valve. Normal leaflet mobility. No evidence of aortic valve stenosis. No aortic regurgitation. AORTIC ROOT: Normal diameter and appearance. PULMONIC VALVE: Normal thickness and mobility. No stenosis. No regurgitation. PERICARDIUM: Anterior free space; trivial effusion versus fat pad. IVC: Collapses with inspirations. CONCLUSION: Global left ventricular systolic function is normal; visually estimated ejection fraction is 60 to 65%. Normal diastolic function. The right ventricle is normal in size and systolic function. No significant valvular abnormalities. Anterior free space; trivial effusion versus fat pad. Adult Echocardiography Procedure Report Left Ventricle LVEDD (3.7 - 5.6 cm): 4.69 cm LVESD (2.2 - 4.0 cm): 2.76 cm LVIVS thickness (0.6 - 1.2 cm): 1.01 cm LVPW thickness (0.5 - 1.0 cm): 0.98 cm e'': 0.12 m/s E - e'': 4.77 LVOT Max Gradient: 3.82 mm[Hg] Peak Velocity (LVOT): 0.98 m/s LVOT Diameter 2.56 cm Left Ventricular Ejection Fraction: 72.06 % 72.06 % Left Atrium LA Volume Index (2D A2C): 58.76 ml 58.76 ml Left Atrium Systolic Dimension: 4.39 cm Mitral Valve MV E to A Ratio: 0.68 Mitral Valve A-Wave Peak Velocity: 0.81 m/s Mitral Valve E-Wave Peak Velocity: 0.56 m/s Right Ventricle Aorta AO Root Diam: 3.93 cm Aortic Valve AoV Area (Peak Gallo): 4.66 cm2 4.66 cm2 Peak Velocity(Antegrade Flow): 1.08 m/s Peak Gradient(Antegrade Flow): 4.68 mm[Hg] Tricuspid Valve Peak Velocity: 0.41 m/s Pulmonic Valve Peak Velocity: 1.27 m/s 0.90 m/s Peak Gradient: 6.45 mm[Hg] 3.26 mm[Hg] Right Atrium Right Atrium Systolic Pressure: 62.18 ml 64.89 ml 59.48 ml Dictated by: Tamanna Joshua M.D. on 06/07/2022 at 15:48 Approved by: Tamanna Joshua M.D. on 06/07/2022 at 15:50 Exam End: -- Specimen Collected: 06/07/22 Last Resulted: 06/07/22 12:00 AM Received From: [facility] No new labs or tests Instructions Given to Patient: Instructions located in the after visit summary. Patient given verbal and written preop instructions and voices comprehension and compliance. SIGNATURE: Rigo Cano APRN.CNP PATIENT NAME: Fahad Sotelo DATE: 07/05/2023 TIME: 1:35 PM documented in this encounter [facility] 07-05-2023 Instructions Rigo Cano APRN.CNP - 07/05/2023 10:06 AM EDT PATIENT PREOPERATIVE INSTRUCTIONS Louie Salomon MD has scheduled you for your procedure at this surgery center: [facility]: [phone] --[phone] [address]. Please read below carefully for your personalized instructions. Dietary Restrictions: - No solid food after midnight. - You may have 12 ounces of clear liquids (water, clear juices such as apple juice or gatorade, carbonated beverages, clear tea, black coffee, jello) until 2 hours before scheduled arrival at facility. Medications: Unless instructed differently below, stay on all of your medications until your surgery. If you start any new medications after today's visit, please contact your surgeon. Please take these medications the morning of surgery: Metoprolol DO NOT TAKE YOUR LISINOPRIL THE NIGHT BEFORE OR MORNING OF SURGERY. If you take any medications for erectile dysfunction-Cialis (Tadalafil), Levitra, Staxyn (Vardenafil) Viagra (Sildenenafil please do not take these for 48 hours before surgery. If you start any new medications after today's visit, please contact the surgeon's office. Blood Thinning Medications: - Stop NSAIDS (Ibuprofen, Advil, Aleve, Motrin, Celebrex, Mobic, etc.) 7 days before surgery, as directed by your surgeon. - Stop Aspirin 7 days before surgery, as directed by your surgeon. - Stop Vitamin E, ALL multi-vitamins, herbals and dietary supplements 7 days before surgery. - You may take Tylenol (Acetaminophen) or any of your pain medications that do not contain aspirin or NSAIDS as needed. Important Reminders: - Candy, mints, and tobacco products are NOT permitted the morning of surgery. - Hearing aids, dentures and glasses may be worn the morning of surgery. - NO jewelry, body piercings, makeup, hairpins or contacts are to be worn the day of surgery. If you develop symptoms such as a fever, cold, or flu, or have other changes to your health within TWO DAYS of scheduled surgery or the morning of surgery, please contact the surgery center above. Personal Belongings: -Please have photo ID and insurance cards. -If you do not have a copy of advance directives on file with us, please bring a copy with you on the day of surgery. - Leave ALL valuables and money at home or with family members. For Outpatient Procedures: - YOU MUST HAVE A RESPONSIBLE THREAD INSPECTOR TAKE YOU HOME. A RUST PROOFER OR FREELANCE TRANSLATOR CANNOT BE MADE A RESPONSIBLE THREAD INSPECTOR. - We recommend that a responsible person stays with you overnight to take care of you. - You cannot stay in a hotel alone after outpatient surgery. You will not be permitted to have your surgery, if you do not have someone to take care of you. Arrival Time for Surgery: - The Surgery Center or hospital where you are having surgery will call the afternoon before surgery (or Sunday for Sunday surgery) with a scheduled arrival time. - If you have not heard by 4 pm, please contact the surgery center above. Please be aware that emergency situations arise, which may delay or change your surgical time. If this happens, we will notify you as soon as possible and regret any inconvenience. If you already have an Advance Directive, please fax a copy to [phone] or email to for it to be added to your chart. If you do not have an Advance Directive, you can find the appropriate form and more information at [email or web address]. We recommend that you complete the Advance Directive form found on the website and bring it with you the day of your surgery. It can be witnessed and scanned into your chart that day. Rigo Cano APRN.CNP documented in this encounter [facility] 06-20-2023 History of Present illness Narrative Images from the original note were not included. [facility] UROLOGY NEW PATIENT CLINIC NOTE SERVICE DATE: 06/20/2023 NAME: Fahad Sotelo REFERRED BY: No referring provider defined for this encounter. Consultation requested by Dr. Ramos for an opinion regarding urethral stricture. My final recommendations will be communicated back to the requesting physician by way of shared Medical record or letter to requesting physician via US mail. CHIEF COMPLAINT frequency HISTORY OF PRESENT ILLNESS Mr. Sotelo is a 72 year old male with a history of CAD, prior CABG, spine surgery who presents for evaluation for urinary urgency, frequency, urethral stricture Main complaint is frequency, slow stream This has been going on for ten years Cathing twice a day - caths post void and gets usually a very small amount out Was using a 16, then 14, then back to 16F after Dr Ramos did the dilation Voids roughly hourly, sometimes every 10 minutes Urethral dilation in May [address] Ramos He has been doing CIC daily with a 16F to maintain patency Had SNM stage 1 without improvement Didn't tolerate flomax, mirabegron too expensive UDS in 2020 - Rise in pdet to 20 over 214ml capacity Rise in pdet with permission to void Slow flow, voided 155 Non invasive uroflow Qmax 6.4ml/s, pvr 30 Was recommended botox and CIC Tried botox 200 without improvement Spine surgery Bladder symptoms started over 10 years ago No [place] imaging Cr 1 Here with his sister 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 Had a stent placed in 2008 c/b coronary artery dissection and that lead to a CABG x1 in 2008 Former smoker quit 1997 Hyperlipidemia Hypertension Intermittent self-catheterization of bladder Urge incontinence of urine PAST SURGICAL HISTORY PAST SURGICAL HISTORY Procedure Laterality Date ARTHRP KNE CONDYLE&PLATU MEDIAL&LAT COMPARTMENTS 10/30/2018 right CABG (1) VEIN GRAFT & ARTERIAL GRAFT 2009 coronary dissection during stent placement CHEMODNRVTJ [facility] INNERVATED FACIAL NRV UNIL CYSTO.PANENDO 11/24/2021 Dr. Dye CYSTO.PANENDO 05/31/2022 CYSTO.PANENDO N/A 06/04/2023 CYSTOSCOPY 03/29/2017 Dr. Fady Dye - [facility] LEFT HEART CATH,PERCUTANEOUS 05/11/2003 Cardiac cath, L heart LEFT HEART CATH,PERCUTANEOUS 12/08/2009 Cardiac cath, L heart LEFT HEART CATH,PERCUTANEOUS 03/15/2011 Cardiac cath, L heart with Stent placement OHS OFF PUMP PAST SURGICAL HISTORY OF Lumbar spine surgery. PAST SURGICAL HISTORY OF 05/29/2017 cervical spine surgery with fusion ROTATOR CUFF REPAIR Left 2016 TRURL ELECTROSURG RESCJ PROSTATE BLEED COMPLETE URODYNAMICS 03/29/2017 Procedure done by Nava Back LPN, [facility] FAMILY HISTORY FAMILY HISTORY Problem Relation Age of Onset Coronary Artery Disease Mother Stroke Mother 65 Diabetes Sister Diabetes Brother Anesthesia Problems No Family History SOCIAL HISTORY Social History Tobacco Use Smoking status: Former Packs/day: 1.25 Years: 10.00 Additional pack years: 0.00 Total pack years: 12.50 Types: Cigarettes Quit date: 11/13/1997 Years since quittin.6 Smokeless tobacco: Never Vaping Use Vaping Use: Never used Substance Use Topics Alcohol use: Yes Comment: 2 cans of beer per year. Drug use: No Comment: denies tx for drug/alcohol abuse in the past. MEDICATIONS Current Outpatient Medications Medication Sig Amoxicillin 500 mg tablet TAKE 4 TABLETS BY MOUTH 1 (ONE) HOUR BEFORE procedure then TAKE 2 TABLETS BY MOUTH 6 (SIX) hours after procedure trospium (SANCTURA) 20 mg tablet Take 1 tablet by mouth once daily. acetaminophen (TYLENOL) 500 mg tablet Take 2 tablets by mouth every 6 hours as needed for pain. ezetimibe (ZETIA) 10 mg tablet Take 10 mg by mouth once daily. aspirin, enteric coated (ASPIRIN, ENTERIC COATED) 81 mg EC tablet Take 1 tablet by mouth twice daily. metoprolol tartrate, short acting, (LOPRESSOR) 50 mg tablet Take 1 tablet by mouth twice daily. COMPOUNDED PRESCRIPTION 16 fr catheters lisinopril (ZESTRIL, PRINIVIL) 20 mg tablet Take 20 mg by mouth once daily. ascorbic acid, vitamin C, (VITAMIN C) 500 mg tablet Take 1 tablet by mouth once daily. MAGNESIUM HYDROXIDE (MILK OF MAGNESIA ORAL) Take 1 Bottle by mouth as needed. isosorbide mononitrate ER (IMDUR) 60 mg 24 hr tablet Take 60 mg by mouth once daily. cholecalciferol (VITAMIN D3) 1,000 unit tab tablet Take 1,000 Units by mouth once daily. Multivitamin capsule Take 1 capsule by mouth once daily. rosuvastatin (CRESTOR) 40 mg tablet Take 40 mg by mouth once daily. No current facility-administered medications for this visit. CURRENT ALLERGIES Allergies As of Date: 06/20/2023 Allergen Noted Reaction BEE POLLEN 01/30/2014 Swelling BEE STING 01/02/2019 Swelling HAY FEVER [SEASONAL ALLERGIES] 04/12/2021 Other: See Comments Fully Assessed 06/20/2023 OBJECTIVE PHYSICAL EXAM: 06/20/23 1019 BP: 128/70 Pulse: 64 There is no height or weight on file to calculate BMI. 06/20/23 1019 BP: 128/70 Pulse: 64 General: pleasant Psych: euthymic, NAD Neuro: A&Ox3. CV: normal perfusion, hemodynamically stable Resp: normal effort Abdomen: soft, NT, no mass, no hepatosplenomegaly DATA Labs Lab Results Component Value Date/Time WBC 6.25 04/12/2021 10:57 AM WBC 7.21 10/30/2019 12:26 PM HB 16.4 04/12/2021 10:57 AM HB 15.6 10/30/2019 12:26 PM HCT 50.9 04/12/2021 10:57 AM HCT 48.2 10/30/2019 12:26 PM PLT 180 04/12/2021 10:57 AM PLT 198 10/30/2019 12:26 PM NA 140 04/12/2021 10:57 AM NA 137 10/31/2018 04:37 AM K 4.7 04/12/2021 10:57 AM K 4.6 10/31/2018 04:37 AM CHLOR 103 04/12/2021 10:57 AM CHLOR 101 10/31/2018 04:37 AM CO2 27 04/12/2021 10:57 AM CO2 26 10/31/2018 04:37 AM BUN 13 04/12/2021 10:57 AM BUN 21 10/31/2018 04:37 AM CREAT 0.89 04/12/2021 10:57 AM CREAT 0.84 10/31/2018 04:37 AM ASSESSMENT/PLAN 1. Stricture of male urethra, unspecified stricture type - ICD9: 598.9, ICD10: N35.919 (primary diagnosis) 2. Urinary urgency - ICD9: 788.63, ICD10: R39.15 3. Low bladder compliance - ICD9: 596.52, ICD10: N31.8 4. Urinary frequency - ICD9: 788.41, ICD10: R35.0 72 M w OAB, slightly reduced bladder compliance, urgency, frequency, urethral stricture on self dilation Discussed options Given poor compliance and small capacity I would not at this time recommend urethral recon He has had one trial of 200 units botox without much improvement I would rec 300u + urethral dilation + ATC CIC (~4 times a day) Rba discussed Repeat UDS 4-6 weeks post op Will schedule RBUS for upper tract surveillance Louie Salomon MD Associate Staff [facility] Department of Urology I spent a total of 30 minutes on the date of the service which included preparing to see the patient, [id number] patient care, completing clinical documentation, obtaining and/or reviewing separately obtained history, performing a medically appropriate examination, counseling and educating the patient/family/caregiver, and ordering medications, tests, or procedures. >50% of time was devoted to patient counseling. Post Void Residual done on patient with 0 cc residual volume remaining. notified. Leoncio Zavala MA documented in this encounter [facility] 06-20-2023 Note HNO ID: [id number] Author: DAIJA LARES PA-C Service: ? Author Type: Physician Type: Progress Notes Filed: 09/27/2023 11:19 Note Text: [facility] UROLOGY NEW PATIENT CLINIC NOTE SERVICE DATE: 06/20/2023 NAME: Fahad Sotelo REFERRED BY: No referring provider defined for this encounter. Consultation requested by Dr. Ramos for an opinion regarding urethral stricture. My final recommendations will be communicated back to the requesting physician by way of shared Medical record or letter to requesting physician via US mail. CHIEF COMPLAINT frequency HISTORY OF PRESENT ILLNESS Mr. Sotelo is a 72 year old male with a history of CAD, prior CABG, spine surgery who presents for evaluation for urinary urgency, frequency, urethral stricture Main complaint is frequency, slow stream This has been going on for ten years Cathing twice a day - caths post void and gets usually a very small amount out Was using a 16, then 14, then back to 16F after Dr Ramos did the dilation Voids roughly hourly, sometimes every 10 minutes Urethral dilation in May [address] Ramos He has been doing CIC daily with a 16F to maintain patency Had SNM stage 1 without improvement Didn't tolerate flomax, mirabegron too expensive UDS in 2020 - Rise in pdet to 20 over 214ml capacity Rise in pdet with permission to void Slow flow, voided 155 Non invasive uroflow Qmax 6.4ml/s, pvr 30 Was recommended botox and CIC Tried botox 200 without improvement Spine surgery Bladder symptoms started over 10 years ago [place] [facility] Cr 1 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 Had a stent placed in 2008 c/b coronary artery dissection and that lead to a CABG x1 in 2008 Former smoker quit 1997 Hyperlipidemia Hypertension Intermittent self-catheterization of bladder Urge incontinence of urine PAST SURGICAL HISTORY PAST SURGICAL HISTORY Procedure Laterality Date ARTHRP KNE CONDYLEANDPLATU MEDIALANDLAT COMPARTMENTS 10/30/2018 right CABG (1) VEIN GRAFT AND ARTERIAL GRAFT 2008 coronary dissection during stent placement CHEMODNR[facility]J [facility] INNERVATED FACIAL NRV UNIL CYSTO.PANENDO 11/24/2021 Dr. Dye CYSTO.PANENDO 05/31/2022 CYSTO.PANENDO N/A 06/04/2023 CYSTOSCOPY 03/29/2017 Dr. Fady Dye - [facility] LEFT HEART CATH,PERCUTANEOUS 05/11/2003 Cardiac cath, L heart LEFT HEART CATH,PERCUTANEOUS 12/08/2009 Cardiac cath, L heart LEFT HEART CATH,PERCUTANEOUS 03/15/2011 Cardiac cath, L heart with Stent placement OHS OFF PUMP PAST SURGICAL HISTORY OF Lumbar spine surgery. PAST SURGICAL HISTORY OF 05/29/2017 cervical spine surgery with fusion ROTATOR CUFF REPAIR Left 2016 TRURL ELECTROSURG RESCJ PROSTATE BLEED COMPLETE URODYNAMICS 03/29/2017 Procedure done by Nava Back LPN, [facility] FAMILY HISTORY FAMILY HISTORY Problem Relation Age of Onset Coronary Artery Disease Mother Stroke Mother 65 Diabetes Sister Diabetes Brother Anesthesia Problems No Family History SOCIAL HISTORY Social History Tobacco Use Smoking status: Former Packs/day: 1.25 Years: 10.00 Additional pack years: 0.00 Total pack years: 12.50 Types: Cigarettes Quit date: 11/13/1997 Years since quittin.6 Smokeless tobacco: Never Vaping Use Vaping Use: Never used Substance Use Topics Alcohol use: Yes Comment: 2 cans of beer per year. Drug use: No Comment: denies tx for drug/alcohol abuse in the past. MEDICATIONS Current Outpatient Medications Medication Sig Amoxicillin 500 mg tablet TAKE 4 TABLETS BY MOUTH 1 (ONE) HOUR BEFORE procedure then TAKE 2 TABLETS BY MOUTH 6 (SIX) hours after procedure trospium (SANCTURA) 20 mg tablet Take 1 tablet by mouth once daily. acetaminophen (TYLENOL) 500 mg tablet Take 2 tablets by mouth every 6 hours as needed for pain. ezetimibe (ZETIA) 10 mg tablet Take 10 mg by mouth once daily. aspirin, enteric coated (ASPIRIN, ENTERIC COATED) 81 mg EC tablet Take 1 tablet by mouth twice daily. metoprolol tartrate, short acting, (LOPRESSOR) 50 mg tablet Take 1 tablet by mouth twice daily. COMPOUNDED PRESCRIPTION 16 fr catheters lisinopril (ZESTRIL, PRINIVIL) 20 mg tablet Take 20 mg by mouth once daily. ascorbic acid, vitamin C, (VITAMIN C) 500 mg tablet Take 1 tablet by mouth once daily. MAGNESIUM HYDROXIDE (MILK OF MAGNESIA ORAL) Take 1 Bottle by mouth as needed. isosorbide mononitrate ER (IMDUR) 60 mg 24 hr tablet Take 60 mg by mouth once daily. cholecalciferol (VITAMIN D3) 1,000 unit tab tablet Take 1,000 Units by mouth once daily. Multivitamin capsule Take 1 capsule by mouth once daily. rosuvastatin (CRESTOR) 40 mg tablet Take 40 mg by mouth once daily. No current facility-administered medications for (more content not included)... [facility] 06-20-2023 Note HNO ID: [id number] Author: LEONCIO ZAVALA MA Service: ? Author Type: Computer Systems Manager Type: Progress Notes Filed: 06/20/2023 15:02 Note Text: Post Void Residual done on patient with 0 cc residual volume remaining. MD notified. Leoncio Zavala MA [facility] 06-11-2023 Telephone encounter Note Images from the original note were not included. Milo Ramos MD You 2 days ago Thank you, patient would use what he is comfortable with. Thank you Milo Ramos MD Phoned pt to inform of response, he states he used to use curved most of the time , but has been using both strait and curved since cystoscopy without any problems [facility] 06-11-2023 Miscellaneous Notes Images from the original note were not included. Milo Ramos MD You 2 days ago Thank you, patient would use what he is comfortable with. Thank you Milo Ramos MD Phoned pt to inform of response, he states he used to use curved most of the time , but has been using both strait and curved since cystoscopy without any problems Pt arrived for nurse visit duncan catheter removal post 06/04/23 office cystoscopy for stricture dilation. He will resume ISC as instructed . Noted that letter was sent to his vendor of choice, [employer]. Letter to [employer] indicated 16 romanian strait tip. Pt prefers to use coude tip. Checking with provider if to use strait or coude ([employer] order written for strait tip) documented in this encounter [facility] 06-11-2023 Note [facility] Cardiology Clinic Note Chief Complaint: Patient here for 1 year follow up CAD, hypertension, and hyperlipidemia. Had echo last May 2022 after last apt. Had routine labs w/ lipid panel in Mar 2023 at PCP's office. Denies chest pain, SOB, palpitations, and lightheadedness/syncope. HPI: Fahad Sotelo is a 72 y.o. male With a history of coronary artery disease, single-vessel coronary artery bypass graft surgery, hypertension here in routine follow-up Is doing well; Denies chest pain, has shortness of breath Does not remember how he felt prior to revascularization Cardiology ROS: Review of Systems HENT: Positive for congestion. Cardiovascular: Positive for leg swelling (minimal). Musculoskeletal: Positive for arthritis, joint pain and muscle weakness. All other systems reviewed and are negative. Past Medical History He has a past medical history of Coronary artery disease, Hyperlipidemia, and Hypertension. Surgical History He has a past surgical history that includes Cardiac catheterization and Replacement total knee oncologic. Social History He reports that he has quit smoking. His smoking use included cigarettes. He has never used smokeless tobacco. He reports current alcohol use. No history on file for drug use. Family History Family History Problem Relation Name Age of Onset Coronary artery disease Other Stroke Other Heart attack Other Allergies Bee pollen Medications Current Outpatient Medications: aspirin 81 mg chewable tablet, in the morning., Disp: , Rfl: cholecalciferol (Vitamin D-3) 25 MCG (1000 units) tablet, Take 1,000 Units by mouth in the morning., Disp: , Rfl: isosorbide mononitrate ER (Imdur) 60 mg 24 hr tablet, isosorbide mononitrate ER 60 mg tablet,extended release 24 hr, Disp: , Rfl: lisinopril 20 mg tablet, Take 1 tablet (20 mg) by mouth once daily as directed., Disp: 90 tablet, Rfl: 3 metoprolol tartrate (Lopressor) 50 mg tablet, every 12 (twelve) hours., Disp: , Rfl: rosuvastatin (Crestor) 40 mg tablet, Crestor 40 mg tablet, Disp: , Rfl: Last Recorded Vitals BP 116/72 (BP Location: Right arm, Patient Position: Sitting) Pulse 62 Ht 1.778 m (5' 10 ) Wt 102 kg (225 lb) SpO2 95% BMI 32.28 kg/m??? Physical Examination: GENERAL: alert and oriented x3, well developed, in no acute distress. HEAD: atraumatic, normocephalic. EYES: ROSARIO, EOMI. NECK: trachea midline, no JVD present, no carotid bruits present. CARDIAC: S1, S2 present. RRR. No murmur, rubs, or gallops. RESPIRATORY: CTAB, no increased effort of breathing, no rales, rhonchi, or wheezing. ABDOMEN: soft, nontender, nondistended. EXTREMITIES: no lower extremity edema, peripheral pulses are 2+ bilaterally. No rash/skin discoloration present. NEURO: strength/sensation equal and symmetric in bilateral upper and lower extremities. PSYCH: appropriate mood, affect, and judgement. INVESTIGATIONS: Lipid profile 04/06/2023: Cholesterol 127, LDL 71, HDL 40, triglycerides 115 Echocardiogram 06/07/2022: Global left ventricular systolic function is normal; EF is 60 to 65%. Normal diastolic function. Right ventricle is normal in size and systolic function. No significant valvular abnormalities. Anterior free space; trivial effusion versus fat pad. Cardiovascular Laboratory Report 2011 FINAL IMPRESSIONS: 1. Occluded mid-left anterior descending coronary artery. 2. Patent saphenous vein graft to the distal left anterior descending coronary artery. 3. [id number] diffuse in-stent restenosis of right coronary artery stent. 4. Mild plaque disease of the ramus and circumflex coronary arteries. 5. Mildly reduced global left ventricular systolic function. 6. Mild mitral regurgitation. 7. Mildly elevated left ventricular end-diastolic pressure and moderate systemic hypertension. RECOMMENDATIONS: 1. Aggressive cardiovascular risk factor modification. 2. Optimization of medical management; Imdur will be increased to 60 mg a day, consider increasing beta domingo and initiating HERRERA-I therapy as an outpatient. 3. Consider phase-II cardiac rehabilitation as an outpatient as appropriate. 4. Follow up with me in the [facility] in 1 month. 5. Follow up with Dr. Centeno as scheduled. Assessment: Coronary atherosclerosis; history of coronary artery bypass graft surgery-saphenous vein graft to the LAD (2004) given need for emergency CABG due to complicated PCI Essential hypertension Dyslipidemia Mitral regurgitation Plan: Continue optimal medical therapy for coronary artery disease including aspirin, Crestor, lisinopril and metoprolol Given the duration of time since his last ischemic workup, and the duration since his bypass, it would be prudent to rule out occult ischemia. We will schedule him for a Lexiscan stress test. Return to clinic in a year or sooner should problems arise Tamanna Joshua MD, MPH, FACC, [facility], (more content not included)... [facility] 06-10-2023 Telephone encounter Note Please update the patient , keflex sent to pharmacy. Milo Ramos MD [facility] 06-10-2023 Miscellaneous Notes Please update the patient , keflex sent to pharmacy. Milo Ramos MD documented in this encounter [facility] 06-08-2023 Telephone encounter Note Pt arrived for nurse visit duncan catheter removal post 06/04/23 office cystoscopy for stricture dilation. He will resume ISC as instructed . Noted that letter was sent to his vendor of choice, [employer]. Letter to [employer] indicated 16 romanian strait tip. Pt prefers to use coude tip. Checking with provider if to use strait or coude ([employer] order written for strait tip) [facility] 06-08-2023 Note Addended by: KRIS VENEGAS on: 06/08/2023 03:38 PM Modules accepted: Orders [facility] 06-08-2023 Miscellaneous Notes Addended by: KRIS VENEGAS on: 06/08/2023 03:38 PM Modules accepted: Orders documented in this encounter [facility] 06-08-2023 Nurse Note Pt arrives, ambulatory for duncan catheter removal post 06/04/23 office cystoscopy for stricture dilation. Pt admits to increase in bladder spasms, discomfort in shaft of penis and urethra, burning discomfort in penis and bladder area. Intermittent urethral leakage, admits to intermittent small amount of bloody globs ; admits he struggles with regular bowel movements. 18 romanian STRAIT duncan catheter attached to leg bag, draining cloudy yellow urine, dime sized brown clot evident in top of bag. Balloon deflated, duncan catheter removed. Pt strait cathed for UC speciman collection. He will resume ISC. Noted that letter sent to his vendor of choice, [employer]. Pt prefers to use coude tip, will check with provider if to use strait or coude ([employer] order written for strait tip) Pt will await culture results and update on strait or coude for ISC. [facility] 06-08-2023 Nurse Note Pt arrives, ambulatory for duncan catheter removal post 06/04/23 office cystoscopy for stricture dilation. Pt admits to increase in bladder spasms, discomfort in shaft of penis and urethra, burning discomfort in penis and bladder area. Intermittent urethral leakage, admits to intermittent small amount of bloody globs ; admits he struggles with regular bowel movements. 18 romanian STRAIT duncan catheter attached to leg bag, draining cloudy yellow urine, dime sized brown clot evident in top of bag. Balloon deflated, duncan catheter removed. Pt strait cathed for UC speciman collection. He will resume ISC. Noted that letter sent to his vendor of choice, [employer]. Pt prefers to use coude tip, will check with provider if to use strait or coude ([employer] order written for strait tip) Pt will await culture results and update on strait or coude for ISC. documented in this encounter [facility] 06-07-2023 Telephone encounter Note Spoke with patient Discussed bladder spasms/leakage NV tomorrow can assess need for straight cath UA. OK for patient to take Tylenol for discomfort. Will provide 16fr. ISC catheter sample for patient to use as he currently only has 14 fr. At home. Pt verbalizes understanding of plan and declines further questions/concerns at this time. [facility] 06-07-2023 Miscellaneous Notes Spoke with patient Discussed bladder spasms/leakage NV tomorrow can assess need for straight cath UA. OK for patient to take Tylenol for discomfort. Will provide 16fr. ISC catheter sample for patient to use as he currently only has 14 fr. At home. Pt verbalizes understanding of plan and declines further questions/concerns at this time. Pt called the office; stated that he has an appt in office tomorrow for catheter removal. Pt stated that he has leaking, a burning sensation, and is feeling the need to urinate. Pt is requesting a phone call at your earliest convenience. Please advise. documented in this encounter [facility] 06-07-2023 Telephone encounter Note Pt called the office; stated that he has an appt in office tomorrow for catheter removal. Pt stated that he has leaking, a burning sensation, and is feeling the need to urinate. Pt is requesting a phone call at your earliest convenience. Please advise. [facility] 06-06-2023 Telephone encounter Note Returning phone call to patient. Updated patient that catheter order was sent to [facility]. Patient states he's been leaking around catheter. Explained to patient the reasons for this - constipation, bladder spasms, kink in tubing. Patient adjusted securing device d/t pulling. Admits to constipation - on bowel regimen. Scheduled for NV for duncan removal on 06/08/2023 at 3pm. Patient in agreement with plan. Shameka Carrillo RN [facility] 06-06-2023 Miscellaneous Notes Returning phone call to patient. Updated patient that catheter order was sent to [facility]. Patient states he's been leaking around catheter. Explained to patient the reasons for this - constipation, bladder spasms, kink in tubing. Patient adjusted securing device d/t pulling. Admits to constipation - on bowel regimen. Scheduled for NV for duncan removal on 06/08/2023 at 3pm. Patient in agreement with plan. Shameka Carrillo RN ISC catheter order sent to [facility]. Ordered for 3 months. 16F straight daily to keep stricture open. Will call to update patient. Shameka Carrillo RN Fahad is calling Milo Ramos MD today to request catheters to be sent to [facility]. Please advise. Phone number: [phone] Patient has been identified by name and birthdate. Duration of symptoms: N/A Person calling: self Call patient at: at home [phone] (home) Was an appointment scheduled: No Closing statement: Results or non-symptom based questions: Thank you for calling [facility], your call will be returned within the next business day. Thank you, Oneyda Blackmon documented in this encounter [facility] 06-06-2023 Telephone encounter Note ISC catheter order sent to [facility]. Ordered for 3 months. 16F straight daily to keep stricture open. Will call to update patient. Shameka Carrillo RN [facility] 06-06-2023 Telephone encounter Note Fahad is calling Milo Ramos MD today to request catheters to be sent to [facility]. Please advise. Phone number: [phone] Patient has been identified by name and birthdate. Duration of symptoms: N/A Person calling: self Call patient at: at home [phone] (home) Was an appointment scheduled: No Closing statement: Results or non-symptom based questions: Thank you for calling [facility], your call will be returned within the next business day. Thank you, Oneyda Blackmon [facility] 06-04-2023 Note HNO ID: [id number] Author: ESMER MOCK MA Service: ? Author Type: Computer Systems Manager Type: Procedures Filed: 06/04/2023 12:35 Note Text: UNIVERSAL PROTOCOL / SAFETY CHECKLIST Procedure to be Performed: cystoscopy Sign In: A Moment of CARE was completed. Personnel directly involved with the procedure wore the appropriate PPE (Personal Protective Equipment). No special equipment needed. Patient/Surrogate Stated/Verified: PATIENT VERIFIED(optional for EMERGENT procedures): Patient name, Date of , Relevant allergies, and The intended procedure Time Out Communication: Intended patient and procedure match the source documents. Consent documented and matches the intended procedure. Relevant labs, photos, and/or imaging studies have been reviewed. Correct side/site marked and visible. Medications required for procedure verified. Fire risk assessed and interventions discussed. No implant(s) inserted. Sign Out: SIGN OUT (optional for EMERGENT procedures): No specimen collected. All instruments, equipment, possible retained foreign bodies accounted for. Post-procedure follow-up management communicated and Plan of Care Visit completed when applicable. DIAZ Dykes MD [facility] 06-04-2023 Procedure note UNIVERSAL PROTOCOL / SAFETY CHECKLIST Procedure to be Performed: cystoscopy Sign In: A Moment of CARE was completed. Personnel directly involved with the procedure wore the appropriate PPE (Personal Protective Equipment). No special equipment needed. Patient/Surrogate Stated/Verified: PATIENT VERIFIED(optional for EMERGENT procedures): Patient name, Date of , Relevant allergies, and The intended procedure Time Out Communication: Intended patient and procedure match the source documents. Consent documented and matches the intended procedure. Relevant labs, photos, and/or imaging studies have been reviewed. Correct side/site marked and visible. Medications required for procedure verified. Fire risk assessed and interventions discussed. No implant(s) inserted. Sign Out: SIGN OUT (optional for EMERGENT procedures): No specimen collected. All instruments, equipment, possible retained foreign bodies accounted for. Post-procedure follow-up management communicated and Plan of Care Visit completed when applicable. DIAZ Dykes MD [facility] 06-04-2023 Procedure note UNIVERSAL PROTOCOL / SAFETY CHECKLIST Procedure to be Performed: cystoscopy Sign In: A Moment of CARE was completed. Personnel directly involved with the procedure wore the appropriate PPE (Personal Protective Equipment). No special equipment needed. Patient/Surrogate Stated/Verified: PATIENT VERIFIED(optional for EMERGENT procedures): Patient name, Date of , Relevant allergies, and The intended procedure Time Out Communication: Intended patient and procedure match the source documents. Consent documented and matches the intended procedure. Relevant labs, photos, and/or imaging studies have been reviewed. Correct side/site marked and visible. Medications required for procedure verified. Fire risk assessed and interventions discussed. No implant(s) inserted. Sign Out: SIGN OUT (optional for EMERGENT procedures): No specimen collected. All instruments, equipment, possible retained foreign bodies accounted for. Post-procedure follow-up management communicated and Plan of Care Visit completed when applicable. DIAZ Dykes MD Procedure(s): CYSTOSCOPY; URETHRAL DILATION, MALE Pre-Procedure Diagnose(s): Stricture of male urethra, unspecified stricture type Post-Procedure Diagnose(s): Stricture of male urethra, unspecified stricture type Procedure: Cystoscopy Surgeon: Milo Ramos MD Procedure: Indications of the procedure, risks and benefits discussed with the patient . Consent signed. Patient taken to the cystoscopy procedure room. Patient prepped and draped in the usual sterile fashion. Time out was performed, name, date of , patient was able to describe the procedure. Two percent lidocaine gel injected into the urethra.. Using a 16 Fr. Flexible cystoscope, urethra was examined , showing two tight areas of stricture in the urethra the most distal area at the fossa navicularis, this was passed with the scope with difficulty. The proximal stricture was too tight to pass the scope. A 0.038 Solo flex wire passed through the scope and into the urinary bladder, dilation with amplatz urethral dilators from size 14 fr to 22 Fr. The scope was introduced into the urinary bladder revealing trabeculated urinary bladder. An 18 fr agdaagux tip catheter passed over the guide wire for 5 days. Findings: two tight areas of the urethra noted. Trabeculated urinary bladder. Discussed referring to Dr. Louie Salomon to discuss further management of the urethral stricture Patient will resume cathing with 16 Fr straight catheter once daily to keep the area of the stricture patent. Milo Ramos MD documented in this encounter [facility] 06-04-2023 Nurse Note PROCEDURE NURSE ASSESSMENT Patient ID with two(2)identifiers verified by: Esmer Mock MA Procedure Indication: Cystoscopy June 04, 2023, Time In: 11:30am Consent signed:Yes Back Office UA obtained: yes Antibiotic given: Yes Heart valve replacement: No Joint replacement: Yes, but more then 2 years ago (Please inform provider if either above replacements were within the last 2 years) Patient Prep: Betadine Scrub to perineum and placement of Sterile Drape. COMPLETED UNIVERSAL PROTOCOL / SAFETY CHECKLIST Procedure to be performed: Cystoscopy Sign in Communication: Completed Time Out: Team Confirms the Correct Patient, Correct Procedure, Correct Site and Site Marking, Correct Position (if applicable) Sign Out Discussion: Completed Instruction sheet given and reviewed and patient verbalizes understanding: yes Esmer Mock MA [facility] 06-04-2023 Instructions Esmer Mock MA - 06/04/2023 11:33 AM EDT After your Cystoscopy with Dr. Ramos You have undergone a cystoscopy. Your doctor has inserted a telescope into your urinary bladder through your urethra to view the inside of your bladder. WHAT TO EXPECT: Possible burning during urination and/or blood-tinged urine. WHAT TO DO: Resume normal activity and medications. Drink 6-8 glasses of fluid each day for 3 days to help flush your urinary system. MEDICATIONS: You were given a preventative antibiotic prior to the procedure. WHEN TO CALL THE DOCTOR: IF you have a fever over 100 degrees Fahrenheit IF you are unable to urinate IF blood clots form in your urine If your urine becomes very bloody and does not clear with drinking extra fluids. Please call the [facility] office at [phone] Sunday-Sunday 8 am - 5 pm with any questions you may have and ask for the Urology nurses. If you call after 5 PM or on the weekends, please call [phone] documented in this encounter [facility] 06-04-2023 Nurse Note PROCEDURE NURSE ASSESSMENT Patient ID with two(2)identifiers verified by: Esmer Mock MA Procedure Indication: Cystoscopy June 04, 2023, Time In: 11:30am Consent signed:Yes Back Office UA obtained: yes Antibiotic given: Yes Heart valve replacement: No Joint replacement: Yes, but more then 2 years ago (Please inform provider if either above replacements were within the last 2 years) Patient Prep: Betadine Scrub to perineum and placement of Sterile Drape. COMPLETED UNIVERSAL PROTOCOL / SAFETY CHECKLIST Procedure to be performed: Cystoscopy Sign in Communication: Completed Time Out: Team Confirms the Correct Patient, Correct Procedure, Correct Site and Site Marking, Correct Position (if applicable) Sign Out Discussion: Completed Instruction sheet given and reviewed and patient verbalizes understanding: yes Esmer Mock MA documented in this encounter [facility] 06-04-2023 Note HNO ID: [id number] Author: MILO RAMOS MD Service: ? Author Type: Physician Type: Procedures Filed: 06/04/2023 12:35 Note Text: Procedure: Cystoscopy Surgeon: Milo Ramos MD Procedure: Indications of the procedure, risks and benefits discussed with the patient . Consent signed. Patient taken to the cystoscopy procedure room. Patient prepped and draped in the usual sterile fashion. Time out was performed, name, date of , patient was able to describe the procedure. Two percent lidocaine gel injected into the urethra.. Using a 16 Fr. Flexible cystoscope, urethra was examined , showing two tight areas of stricture in the urethra the most distal area at the fossa navicularis, this was passed with the scope with difficulty. The proximal stricture was too tight to pass the scope. A 0.038 Solo flex wire passed through the scope and into the urinary bladder, dilation with amplatz urethral dilators from size 14 fr to 22 Fr. The scope was introduced into the urinary bladder revealing trabeculated urinary bladder. An 18 fr agdaagux tip catheter passed over the guide wire for 5 days. Findings: two tight areas of the urethra noted. Trabeculated urinary bladder. Discussed referring to Dr. Louie Salomon to discuss further management of the urethral stricture Patient will resume cathing with 16 Fr straight catheter once daily to keep the area of the stricture patent. Milo Ramos MD [facility] 06-04-2023 Procedure note Procedure(s): CYSTOSCOPY; URETHRAL DILATION, MALE Pre-Procedure Diagnose(s): Stricture of male urethra, unspecified stricture type Post-Procedure Diagnose(s): Stricture of male urethra, unspecified stricture type Procedure: Cystoscopy Surgeon: Milo Ramos MD Procedure: Indications of the procedure, risks and benefits discussed with the patient . Consent signed. Patient taken to the cystoscopy procedure room. Patient prepped and draped in the usual sterile fashion. Time out was performed, name, date of , patient was able to describe the procedure. Two percent lidocaine gel injected into the urethra.. Using a 16 Fr. Flexible cystoscope, urethra was examined , showing two tight areas of stricture in the urethra the most distal area at the fossa navicularis, this was passed with the scope with difficulty. The proximal stricture was too tight to pass the scope. A 0.038 Solo flex wire passed through the scope and into the urinary bladder, dilation with amplatz urethral dilators from size 14 fr to 22 Fr. The scope was introduced into the urinary bladder revealing trabeculated urinary bladder. An 18 fr agdaagux tip catheter passed over the guide wire for 5 days. Findings: two tight areas of the urethra noted. Trabeculated urinary bladder. Discussed referring to Dr. Louie Salomon to discuss further management of the urethral stricture Patient will resume cathing with 16 Fr straight catheter once daily to keep the area of the stricture patent. Milo Ramos MD [facility] 05-15-2023 Instructions Nithya Horner PA-C - 05/15/2023 3:54 PM EDT [facility] CYSTOSCOPY: The cystoscope is an instrument similar to a small flexible or rigid telescope that is passed through the urethra into the bladder. The procedure takes 2-5 minutes and usually causes only minimal discomfort. This procedure will assist the physician in determining your diagnosis and treatment options. POST PROCEDURE INSTRUCTIONS: *Your nurse will review going home instructions with you when the procedure is complete. EXPECT *Burning during urination and/or blood tinged urine. CALL THE DOCTOR *If you have a fever over 100 degrees Fahrenheit. *If you are unable to urinate. *If blood clots form in your urine. *If your urine becomes very bloody and does not clear with drinking extra fluids. Continue self catheterization with 14 fr coude twice a day. documented in this encounter [facility] 05-15-2023 History of Present illness Narrative [facility] FOR FEMALE PELVIC MEDICINE AND RECONSTRUCTIVE SURGERY HISTORY OF PRESENT ILLNESS: Fahad Sotelo is a 72 year old male here today for a follow up regarding urethral stricture. Cystoscopy on 05/31/[address] Ramos revealed Two urethral strictures , noted, trabeculated urinary bladder. Urethral dilation done at this visit. Patient self catheterizes two times a day; morning and night to help keep stricture patent. Was unable to insert 16 fr coude, downsized to 14 fr coude and is having no difficulties. Despite catheterization; still waking up 5-6 times at night; always been like this . Reports intermittency and weak stream; will have to hold his breath after intermittency occurs to fully emptying. Reports he is urinating approximately every 2-3 hours during the day; nocturia as stated above. GENERAL REVIEW OF SYSTEMS: GI:SEE HPI GENITOURINARY:SEE HPI HISTORIES: Present Medications: Amoxicillin 500 mg tablet Take 4 tablets 1 hour before procedure and 2 tablets 6 hours after procedure trospium (SANCTURA) 20 mg tablet Take 1 tablet by mouth once daily. acetaminophen (TYLENOL) 500 mg tablet Take 2 tablets by mouth every 6 hours as needed for pain. ezetimibe (ZETIA) 10 mg tablet Take 10 mg by mouth once daily. (Patient not taking: No sig reported) aspirin, enteric coated (ASPIRIN, ENTERIC COATED) 81 mg EC tablet Take 1 tablet by mouth twice daily. metoprolol tartrate, short acting, (LOPRESSOR) 50 mg tablet Take 1 tablet by mouth twice daily. COMPOUNDED PRESCRIPTION 16 fr catheters lisinopril (ZESTRIL, PRINIVIL) 20 mg tablet Take 20 mg by mouth once daily. ascorbic acid, vitamin C, (VITAMIN C) 500 mg tablet Take 1 tablet by mouth once daily. MAGNESIUM HYDROXIDE (MILK OF MAGNESIA ORAL) Take 1 Bottle by mouth as needed. isosorbide mononitrate ER (IMDUR) 60 mg 24 hr tablet Take 60 mg by mouth once daily. cholecalciferol (VITAMIN D3) 1,000 unit tab tablet Take 1,000 Units by mouth once daily. Multivitamin capsule Take 1 capsule by mouth once daily. rosuvastatin (CRESTOR) 40 mg tablet Take 40 mg by mouth once daily. No current facility-administered medications for this visit. Past Family History: FAMILY HISTORY Problem Relation Age of Onset Coronary Artery Disease Mother Stroke Mother 65 Diabetes Sister Diabetes Brother Anesthesia Problems No Family History Past Medical History: PAST MEDICAL HISTORY Diagnosis Date CAD (coronary artery disease) 2004 [place] in 1997. Had a stent placed in 2008 c/b coronary artery dissection and that lead to a CABG x1 in 2008 Former smoker quit 1997 Hyperlipidemia Hypertension Intermittent self-catheterization of bladder Urge incontinence of urine Past Surgical History: PAST SURGICAL HISTORY Procedure Laterality Date ARTHRP KNE CONDYLE&PLATU MEDIAL&LAT COMPARTMENTS 10/30/2018 right CABG (1) VEIN GRAFT & ARTERIAL GRAFT 2008 coronary dissection during stent placement CHEMODNRVTJ [facility] INNERVATED FACIAL [facility] UN[facility] CYSTO.PANENDO 11/24/2021 Dr. Dye CYSTO.PANENDO 05/31/2022 CYSTOSCOPY 03/29/2017 Dr. Fady [facility] LEFT HEART CATH,PERCUTANEOUS 05/11/2003 Cardiac cath, L heart LEFT HEART CATH,PERCUTANEOUS 12/08/2009 Cardiac cath, L heart LEFT HEART CATH,PERCUTANEOUS 03/15/2011 Cardiac cath, L heart with Stent placement OHS OFF PUMP PAST SURGICAL HISTORY OF Lumbar spine surgery. PAST SURGICAL HISTORY OF 05/29/2017 cervical spine surgery with fusion ROTATOR CUFF REPAIR Left 2016 TRURL ELECTROSURG RESCJ PROSTATE BLEED COMPLETE URODYNAMICS 03/29/2017 Procedure done by Nava Back LPN, [place] [facility] Past Social History: Social History Tobacco Use Smoking status: Former Packs/day: 1.25 Years: 10.00 Additional pack years: 0.00 Total pack years: 12.50 Types: Cigarettes Quit date: 11/13/1997 Years since quittin.5 Smokeless tobacco: Never Vaping Use Vaping Use: Never used Substance Use Topics Alcohol use: Yes Comment: 2 cans of beer per year. Drug use: No Comment: denies tx for drug/alcohol abuse in the past. PHYSICAL EXAM: VITAL SIGNS:There were no vitals taken for this visit. CONSTITUTIONAL: appears healthy, in no acute distress. RESPIRATORY: unlabored on room air ABDOMEN: soft, non tender, no masses or organomegaly BACK: negative CVA tenderness SKIN: no rashes or lesions noted Tests Reviewed: PVR: 0 ml IMPRESSION: 1. Stricture of urethral meatus in male, unspecified stricture type - ICD9: 598.9, ICD10: N35.911 - CYSTO DIAGNOSTIC -will recommend repeat Cysto for eval of urethra, resistance with 16 FR catheterization, and known stricture. -continue catheterization with 14 fr coude catheter twice a day, REQUIRES COUDE DUE TO ANATOMY. -discussed possible dilation. -The procedure, office cystoscopy, and risks including but not limited to bleeding and infection, were reviewed and all questions were answered. Patient wishes to proceed and has been informed that the procedure will be performed by the staff urologist, Dr. Richard Horner PA-C Visit complexity inherent to evaluation and management associated with medical care services that serve as the continuing focal point for all needed health care services and/or with medical care services that are part of ongoing care related to a patient s single, serious condition or a complex condition. Patient urinated down stairs PVR = 0 ml Via bladder scan. documented in this encounter [facility] 05-15-2023 Note HNO ID: [id number] Author: NITHYA HORNER PA-C Service: ? Author Type: Physician Check Processing Clerk Type: Progress Notes Filed: 05/15/2023 16:32 Note Text: [facility] FOR FEMALE PELVIC MEDICINE AND RECONSTRUCTIVE SURGERY HISTORY OF PRESENT ILLNESS: Fahad Sotelo is a 72 year old male here today for a follow up regarding urethral stricture. Cystoscopy on 05/31/[address] Ramos revealed Two urethral strictures , noted, trabeculated urinary bladder. Urethral dilation done at this visit. Patient self catheterizes two times a day; morning and night to help keep stricture patent. Was unable to insert 16 fr coude, downsized to 14 fr coude and is having no difficulties. Despite catheterization; still waking up 5-6 times at night; always been like this . Reports intermittency and weak stream; will have to hold his breath after intermittency occurs to fully emptying. Reports he is urinating approximately every 2-3 hours during the day; nocturia as stated above. GENERAL REVIEW OF SYSTEMS: GI:SEE HPI GENITOURINARY:SEE HPI HISTORIES: Present Medications: Amoxicillin 500 mg tablet Take 4 tablets 1 hour before procedure and 2 tablets 6 hours after procedure trospium (SANCTURA) 20 mg tablet Take 1 tablet by mouth once daily. acetaminophen (TYLENOL) 500 mg tablet Take 2 tablets by mouth every 6 hours as needed for pain. ezetimibe (ZETIA) 10 mg tablet Take 10 mg by mouth once daily. (Patient not taking: No sig reported) aspirin, enteric coated (ASPIRIN, ENTERIC COATED) 81 mg EC tablet Take 1 tablet by mouth twice daily. metoprolol tartrate, short acting, (LOPRESSOR) 50 mg tablet Take 1 tablet by mouth twice daily. COMPOUNDED PRESCRIPTION 16 fr catheters lisinopril (ZESTRIL, PRINIVIL) 20 mg tablet Take 20 mg by mouth once daily. ascorbic acid, vitamin C, (VITAMIN C) 500 mg tablet Take 1 tablet by mouth once daily. MAGNESIUM HYDROXIDE (MILK OF MAGNESIA ORAL) Take 1 Bottle by mouth as needed. isosorbide mononitrate ER (IMDUR) 60 mg 24 hr tablet Take 60 mg by mouth once daily. cholecalciferol (VITAMIN D3) 1,000 unit tab tablet Take 1,000 Units by mouth once daily. Multivitamin capsule Take 1 capsule by mouth once daily. rosuvastatin (CRESTOR) 40 mg tablet Take 40 mg by mouth once daily. No current facility-administered medications for this visit. Past Family History: FAMILY HISTORY Problem Relation Age of Onset Coronary Artery Disease Mother Stroke Mother 65 Diabetes Sister Diabetes Brother Anesthesia Problems No Family History Past Medical History: PAST MEDICAL HISTORY Diagnosis Date CAD (coronary artery disease) 2005 [place] in 1997. Had a stent placed in 2008 c/b coronary artery dissection and that lead to a CABG x1 in 2008 Former smoker quit 1997 Hyperlipidemia Hypertension Intermittent self-catheterization of bladder Urge incontinence of urine Past Surgical History: PAST SURGICAL HISTORY Procedure Laterality Date ARTHRP KNE CONDYLEANDPLATU MEDIALANDLAT COMPARTMENTS 10/30/2018 right CABG (1) VEIN GRAFT AND ARTERIAL GRAFT 2008 coronary dissection during stent placement CHEMODNRVTJ [facility] INNERVATED FACIAL NRV UNIL CYSTO.PANENDO 11/24/2021 Dr. Dye CYSTO.PANENDO 05/31/2022 CYSTOSCOPY 03/29/2017 Dr. Fady Dye - [facility] LEFT HEART CATH,PERCUTANEOUS 05/11/2003 Cardiac cath, L heart LEFT HEART CATH,PERCUTANEOUS 12/08/2009 Cardiac cath, L heart LEFT HEART CATH,PERCUTANEOUS 03/15/2011 Cardiac cath, L heart with Stent placement OHS OFF PUMP PAST SURGICAL HISTORY OF Lumbar spine surgery. PAST SURGICAL HISTORY OF 05/29/2017 cervical spine surgery with fusion ROTATOR CUFF REPAIR Left 2016 TRURL ELECTROSURG RESCJ PROSTATE BLEED COMPLETE URODYNAMICS 03/29/2017 Procedure done by Nava Back LPN, [facility] Past Social History: Social History Tobacco Use Smoking status: Former Packs/day: 1.25 Years: 10.00 Additional pack years: 0.00 Total pack years: 12.50 Types: Cigarettes Quit date: 11/13/1997 Years since quittin.5 Smokeless tobacco: Never Vaping Use Vaping Use: Never used Substance Use Topics Alcohol use: Yes Comment: 2 cans of beer per year. Drug use: No Comment: denies tx for drug/alcohol abuse in the past. PHYSICAL EXAM: VITAL SIGNS:There were no vitals taken for this visit. CONSTITUTIONAL: appears healthy, in no acute distress. RESPIRATORY: unlabored on room air ABDOMEN: soft, non tender, no masses or organomegaly BACK: negative CVA tenderness SKIN: no rashes or lesions noted Tests Reviewed: PVR: 0 ml IMPRESSION: 1. Stricture of urethral meatus in male, unspecified stricture type - ICD9: 598.9, ICD10: N35.911 - CYSTO DIAGNOSTIC -will recommend repeat Cysto for eval of urethra, resistance with 16 FR catheterization, and known stricture. -continue catheterization with 14 fr coude catheter twice a day, REQUIRES (more content not included)... [facility] 05-15-2023 Note HNO ID: [id number] Author: RIGO MARTIN LPN Service: ? Author Type: LICENSED NURSE Type: Progress Notes Filed: 05/15/2023 16:32 Note Text: Patient urinated down stairs PVR = 0 ml Via bladder scan. [facility] 06-23-2022 History of Present illness Narrative Images from the original note were not included. This document has been created with the use of voice recognition technology. It may contain inaccuracies: misspellings, inaccurate syntax or word sense that escaped review. CHIEF COMPLAINT: Fahad Sotelo is a 71 year old male who presents today for new evaluation of left shoulder. HISTORY OF PRESENT ILLNESS: PAIN EVALUATION 06/23/2022 1432 Pain Level: -- no answer Pain Location: Shoulder-Left Description: Aching;Numbness ROM concern Duration Units: Years Frequency: Continuous Intervention/Comfort measure: Exercise HISTORY: Fahad Sotelo is here for follow up of complaints of left shoulder limited motion with remote history of rotator cuff repair. He states he has a little bit of soreness but the main problem is limited function and range of motion. He states ever since his surgery on the shoulder he has not been able to raise his arm up. This was performed at an outside facility. [facility] system daily basis more so for his right shoulder. Right shoulder he had a reverse shoulder replacement in March 2021, this he states is doing well. No other musculoskeletal complaints ROS: REVIEW OF SYMPTOMS: Constitutional: patient denies any recent fever or significant change in weight Gastrointestinal: patient denies any current abdominal discomfort Musculoskeletal: as noted in the HPI Neurologic: patient denies any peripheral numbness or radiation of pain SOCIAL HISTORY: Tobacco Use: 1.25 packs/day, for 10 years. Quit 11/13/1997. Types: Cigarettes ALLERGIES: ALLERGIES Allergen Reactions Bee Pollen Swelling Bee Sting Swelling Hay Fever [Seasonal* Other: See Comments Sneezing. PAST MEDICAL HISTORY: PAST MEDICAL HISTORY Diagnosis Date CAD (coronary artery disease) 2005 [place] in 1997. Had a stent placed in 2008 c/b coronary artery dissection and that lead to a CABG x1 in 2008 Former smoker quit 1997 Hyperlipidemia Hypertension Intermittent self-catheterization of bladder Urge incontinence of urine SOCIAL HISTORY: Tobacco Use: 1.25 packs/day, for 10 years. Quit 11/13/1997. Types: Cigarettes EXAMINATION: GENERAL: Appears healthy, well-nourished, no deformities. ORIENTATION: Alert and oriented to person place and time HABITUS: Normal GAIT: Normal, the patient did not have trouble getting onto the exam table. right shoulder exam: skin intact no erythema, no ecchymosis, no arm swelling mild irritability with PROM Negative gregg active less than passive ROM 80/15 vs 130/15 Positive drop arm Atrophy of the scapula intact sensation to light touch distally good radial pulse no pain with neck ROM RADIOGRAPHS: XR Obtained today and personally reviewed by myself demonstrating mild arthritis and metallic screws positioned in the greater tuberosity from remote rotator cuff repair IMPRESSION: Encounter Diagnosis ICD-10-CM 1. Rotator cuff dysfunction, left M67.912 2. History of failed repair of rotator cuff Z98.890 3. Left shoulder pain, unspecified chronicity M25.512 XR SHOULDER ORTHO 4V AP/TRUE AP/LAT/OUTLET LEFT Procedures Plan: Patient that we have been treating for right reverse total shoulder came in today for evaluation of the left shoulder which remotely had a rotator cuff repair. Patient states he has had significant stiffness in this left shoulder and limited function in the entire preop and postoperative period. He does not have significant pain in the shoulder does some mild soreness his main concern is limited motion. We went over specific exercises he can do to isolate the deltoid to work on decreasing his functional capacity. Discussed the potential for meeting with a formal physical therapist which he wanted to hold off on. Spent quite bit of time explaining to him the nature of his current state and the nature of his previous surgery that he had. Discussed the role of cortisone injections, he will consider this in the future if the pain worsens. Nehemiah Gilbert PA-C documented in this encounter [facility] 06-23-2022 History of Present illness Narrative Radiology Service Progress Note PATIENT NAME: Fahad Sotelo DATE OF SERVICE: June 23, 2022 TIME: 1:34 PM PATIENT IDENTITY VERIFICATION COMPLETED USING TWO (2) IDENTIFIERS: Name and Date of confirmed by patient verbally. FALL SCREENING: Has the patient had 2 falls in the last year or 1 fall with injury or currently using an Ambulatory Assistive Device (Walker, Cane, Wheelchair, Crutches, etc.)? No PATIENT GENDER DATA: Male PATIENT RELEVANT IMPLANT DATA REVIEWED: Not Applicable RADIOLOGY DEPARTMENT: General X-ray: Exam(s) Completed: Upper Extremity X-Ray(s): Shoulder, AP / TRUE AP / AXILLARY left PERIPHERAL IV DATA: Not applicable SIGNED BY: RT Gerber(R) June 23, 2022 1:34 PM documented in this encounter [facility] 05-31-2022 Procedure note Procedure(s): CYSTOSCOPY; URETHRAL DILATION, MALE Pre-Procedure Diagnose(s): Urine retention; Anterior urethral stricture Post-Procedure Diagnose(s): Urine retention; Anterior urethral stricture Procedure: Cystoscopy, urethral dilation Surgeon: Milo Ramos MD Procedure: Indications of the procedure, risks and benefits discussed with the patient . Consent signed. Patient taken to the cystoscopy procedure room. Patient prepped and draped in the usual sterile fashion. Time out was performed, name, date of , patient was able to describe the procedure. Two percent lidocaine gel injected into the urethra.. Using a 16 Fr. Flexible cystoscope, urethra urinary bladder were examined systematically including the posterior, right and left lateral mixon, anterior and bladder dome, manifested by the presence of air bubble, showing tight stricture in the anterior urethra, unable to pass the scope safely, did dilate the stricture with Blanco dilators from size 14 to 24 Fr, was able to pass the scope with no difficulty up to the bulbous urethral where another stricture was encountered. Tight, passed with some difficulty, evaluation of the bladder did show trabeculated urinary bladder with no mucosal lesions, masses, diverticula. . Both ureteric orifices were identified effluxing clear urine. Retroflexion of the scope was performed showing no lesions at the area of the bladder neck, the posterior urethral stricture was dilated up to 22 Fr. The bladder was drained with a 20 Fr coude tip catheter, introduced with mild difficulty at the the area of the bulbous urethra, balloon filled with 10 ml sterile water, patient will take off the catheter at home after three days. Procedure was terminated and patient tolerated the procedure well. No complications or incidental injuries were encountered. EBL :0 ml Findings: Two urethral strictures , noted, trabeculated urinary bladder Milo Ramos MD documented in this encounter [facility] 05-31-2022 Instructions Rigo Martin LPN - 05/31/2022 2:11 PM EDT After your Cystoscopy with Dr. Ramos You have undergone a cystoscopy. Your doctor has inserted a telescope into your urinary bladder through your urethra to view the inside of your bladder. WHAT TO EXPECT: Possible burning during urination and/or blood-tinged urine. WHAT TO DO: Resume normal activity and medications. Drink 6-8 glasses of fluid each day for 3 days to help flush your urinary system. MEDICATIONS: You were given a preventative antibiotic prior to the procedure. WHEN TO CALL THE DOCTOR: IF you have a fever over 100 degrees Fahrenheit IF you are unable to urinate IF blood clots form in your urine If your urine becomes very bloody and does not clear with drinking extra fluids. Please call the [facility] office at [phone] Sunday-Sunday 8 am - 5 pm with any questions you may have and ask for the Urology nurses. If you call after 5 PM or on the weekends, please call [phone] documented in this encounter [facility] 05-31-2022 Nurse Note PROCEDURE NURSE ASSESSMENT Patient ID with two(2)identifiers verified by: Rigo Martin LPN Procedure Indication: Cystoscopy May 31, 2022, Time In: 0150 Consent signed:Yes Back Office UA obtained: yes Antibiotic given: Yes Heart valve replacement: No Joint replacement: Yes 2+ years (Please inform provider if either above replacements were within the last 2 years) Patient Prep: Betadine Scrub to perineum and placement of Sterile Drape. COMPLETED Instruction sheet given and reviewed and patient verbalizes understanding: yes Rigo Martin LPN documented in this encounter [facility] 04-25-2022 Instructions Nithya Horner PA-C - 04/25/2022 9:31 AM EDT [facility] CYSTOSCOPY: The cystoscope is an instrument similar to a small flexible or rigid telescope that is passed through the urethra into the bladder. The procedure takes 2-5 minutes and usually causes only minimal discomfort. This procedure will assist the physician in determining your diagnosis and treatment options. POST PROCEDURE INSTRUCTIONS: *Your nurse will review going home instructions with you when the procedure is complete. EXPECT *Burning during urination and/or blood tinged urine. CALL THE DOCTOR *If you have a fever over 100 degrees Fahrenheit. *If you are unable to urinate. *If blood clots form in your urine. *If your urine becomes very bloody and does not clear with drinking extra fluids. Start trospium 1 tablet before bed to help with urgency documented in this encounter [facility] 04-25-2022 History of Present illness Narrative PVR = 0 ml Via bladder scan. Had patient demonstrate cathing to see difficulty Did see resistance proximal urethra Patient does have L hand dexterity issues making it a little more difficult Able to pass catheter, few drops of urine in return Offered patient to try other catheters, patient declined [facility] FOR FEMALE PELVIC MEDICINE AND RECONSTRUCTIVE SURGERY HISTORY OF PRESENT ILLNESS: Fahad Sotelo is a 71 year old male here today for a follow up regarding urinary retention. Seen by Dr. Dye on 11/24/21 several areas of sl stricture 1. near fossa 1 cm prox, another prox bulbar urethra, all accommodate 16 fr flex scope. prostate non obstructing Advised at this time to use 16 fr coude caths 2 x a day. Patient reports he self catheterizes 2 times a day, feels it hits something and then it goes in . Denies hematuria dysuria. Difficulty cathing started about two-three weeks ago. Fingers will slide down because it hits something . Prefers lubricated, coude. Urinating about 4-5 times at night (catheterizes right before bed). Will have to force at times, has to hold his breath . Endorses hesitancy, difficulty getting stream started. Output dependent on day, sometimes a lot, sometimes not. GENERAL REVIEW OF SYSTEMS: GI:SEE HPI GENITOURINARY:SEE HPI HISTORIES: Present Medications: Amoxicillin 500 mg tablet take 6 tablets one hour prior to procedure and take 2 tablets six hours after procedure acetaminophen (TYLENOL) 500 mg tablet Take 2 tablets by mouth every 6 hours as needed for pain. ezetimibe (ZETIA) 10 mg tablet Take 10 mg by mouth once daily. Amoxicillin 500 mg tablet Take 4 tablets 1 hour before procedure and 2 tablets 6 hours after procedure aspirin, enteric coated (ASPIRIN, ENTERIC COATED) 81 mg EC tablet Take 1 tablet by mouth twice daily. metoprolol tartrate, short acting, (LOPRESSOR) 50 mg tablet Take 1 tablet by mouth twice daily. COMPOUNDED PRESCRIPTION 16 fr catheters lisinopril (ZESTRIL, PRINIVIL) 20 mg tablet Take 20 mg by mouth once daily. ascorbic acid, vitamin C, (VITAMIN C) 500 mg tablet Take 1 tablet by mouth once daily. MAGNESIUM HYDROXIDE (MILK OF MAGNESIA ORAL) Take 1 Bottle by mouth as needed. isosorbide mononitrate ER (IMDUR) 60 mg 24 hr tablet Take 60 mg by mouth once daily. cholecalciferol (VITAMIN D3) 1,000 unit tab tablet Take 1,000 Units by mouth once daily. Multivitamin capsule Take 1 capsule by mouth once daily. rosuvastatin (CRESTOR) 40 mg tablet Take 40 mg by mouth once daily. No current facility-administered medications for this visit. Past Family History: FAMILY HISTORY Problem Relation Age of Onset Coronary Artery Disease Mother Stroke Mother 65 Diabetes Sister Diabetes Brother Anesthesia Problems No Family History Past Medical History: PAST MEDICAL HISTORY Diagnosis Date CAD (coronary artery disease) 2005 [place] in 1997. Had a stent placed in 2008 c/b coronary artery dissection and that lead to a CABG x1 in 2008 Former smoker quit 1997 Hyperlipidemia Hypertension Intermittent self-catheterization of bladder Urge incontinence of urine Past Surgical History: PAST SURGICAL HISTORY Procedure Laterality Date ARTHRP KNE CONDYLE&PLATU MEDIAL&LAT COMPARTMENTS 10/30/2018 right CABG (1) VEIN GRAFT & ARTERIAL GRAFT 2008 coronary dissection during stent placement CHEMODNRVTJ [facility]C INNERVATED FACIAL NRV UNIL CYSTO.PANENDO 11/24/2021 Dr. Dye CYSTOSCOPY 03/29/2017 Dr. Fady Dye - [facility] LEFT HEART CATH,PERCUTANEOUS 05/11/2003 Cardiac cath, L heart LEFT HEART CATH,PERCUTANEOUS 12/08/2009 Cardiac cath, L heart LEFT HEART CATH,PERCUTANEOUS 03/15/2011 Cardiac cath, L heart with Stent placement OHS OFF PUMP PAST SURGICAL HISTORY OF Lumbar spine surgery. PAST SURGICAL HISTORY OF 05/29/2017 cervical spine surgery with fusion ROTATOR CUFF REPAIR Left 2016 TRURL ELECTROSURG RESCJ PROSTATE BLEED COMPLETE URODYNAMICS 03/29/2017 Procedure done by Nava Back LPN, [facility] Past Social History: Social History Tobacco Use Smoking status: Former Packs/day: 1.25 Years: 10.00 Pack years: 12.50 Types: Cigarettes Quit date: 11/13/1997 Years since quittin.4 Smokeless tobacco: Never Vaping Use Vaping Use: Never used Substance Use Topics Alcohol use: Yes Comment: 2 cans of beer per year. Drug use: No Comment: denies tx for drug/alcohol abuse in the past. PHYSICAL EXAM: VITAL SIGNS:There were no vitals taken for this visit. CONSTITUTIONAL: appears healthy, in no acute distress. RESPIRATORY: unlabored on room air ABDOMEN: soft, non tender, no masses or organomegaly BACK: negative CVA tenderness SKIN: no rashes or lesions noted Tests Reviewed: PVR: 0 ml IMPRESSION: 1. Stricture of male urethra, unspecified stricture type - ICD9: 598.9, ICD10: N35.919 (primary diagnosis) - CYSTO DIAGNOSTIC -will recommend repeat Cysto for eval of urethra, resistance with catheterization, and known stricture. -discussed possible dilation. -The procedure, office cystoscopy, and risks including but not limited to bleeding and infection, were reviewed and all questions were answered. Patient wishes to proceed and has been informed that the procedure will be performed by the staff urologist, Dr. Ramos 2. Urinary urgency - ICD9: 788.63, ICD10: R39.15 - TROSPIUM 20 MG TABLET -patient to trial trospium 20 mg for urgency symptoms to see if this aids in symptom relief. -Advised patient of side effects of medication including dry mouth, dry eyes, constipation, and possible urinary retention. -patient to follow up in 3 months for repeat PVR and med check. Nithya Horner PA-C documented in this encounter [facility] 11-15-2021 History of Present illness Narrative This document has been created with the use of voice recognition technology. It may contain inaccuracies: misspellings, inaccurate syntax or word sense that escaped review. CHIEF COMPLAINT: Fahad Sotelo is a 71 year old male who presents today for new evaluation of painful right total knee replacement. HISTORY OF PRESENT ILLNESS: PAIN EVALUATION 11/15/2021 1411 Pain Level: 8 Pain Location: Knee-Right Description: Aching Duration Amount of Time: 1 Duration Units: Years Frequency: Continuous Intervention/Comfort measure: Reposition;Relaxation;Positioning HISTORY: Fahad Sotelo is here for follow up of complaints of painful right total knee replacement for over a year. His postoperative right total knee replacement with date of surgery 10/30/[address] Espinoza. 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 He states that he has had persistent pain. He was evaluated by Dr. Smith last year. Screening laboratory studies were negative. Impression was that pain secondary to stiffness. There has been no new injury. No change in the pain. No fevers chills or any constitutional symptoms. No neurologic complaints No other musculoskeletal complaints ROS: REVIEW OF SYMPTOMS: Constitutional: patient denies any recent fever or significant change in weight Gastrointestinal: patient denies any current abdominal discomfort Musculoskeletal: as noted in the HPI Neurologic: as noted in the HPI SOCIAL HISTORY: Tobacco Use: 1.25 packs/day, for 10 years. Quit 11/13/1997. Types: Cigarettes ALLERGIES: ALLERGIES Allergen Reactions Bee Pollen Swelling Bee Sting Swelling Hay Fever [Seasonal* Other: See Comments Sneezing. PAST MEDICAL HISTORY: PAST MEDICAL HISTORY Diagnosis Date CAD (coronary artery disease) 2005 [place] in 1997. Had a stent placed in 2008 c/b coronary artery dissection and that lead to a CABG x1 in 2008 Former smoker quit 1997 Hyperlipidemia Hypertension Intermittent self-catheterization of bladder Urge incontinence of urine SOCIAL HISTORY: Tobacco Use: 1.25 packs/day, for 10 years. Quit 11/13/1997. Types: Cigarettes EXAMINATION: GENERAL: Appears healthy, well-nourished, no deformities. ORIENTATION: Alert and oriented to person place and time HABITUS: Normal GAIT: Normal, the patient did not have trouble getting onto the exam table. right knee exam: skin intact No effusion no erythema, no ecchymosis, Healed midline incision Lacks 10 degrees of extension flexion to 115 degrees Medial/lateral and anterior/posterior stable No irritability with range of motion Palpable dorsalis pedis pulse Calf soft and nontender. Hip exam negative Intact sensation to light touch distally. RADIOGRAPHS: XR Obtained today and personally reviewed by myself demonstrating total knee prosthesis in good position IMPRESSION: Encounter Diagnosis ICD-10-CM 1. Chronic knee pain after total replacement of right knee joint M25.561 XR KNEE POST OP 3V AP/LAT/MERCHANT RIGHT G89.29 Z96.651 Procedures Plan: Painful right total knee replacement secondary to arthrofibrosis. We discussed both operative and conservative treatment. Discussed implications of operative treatment which would entail revision. Discussed no guarantees will be given. If he wishes to consider surgical treatment we will have him see Dr. Smith for repeat evaluation. Follow-up as symptoms dictate Kev Ferrell MD documented in this encounter [facility] 11-08-2021 History of Present illness Narrative This document has been created with the use of voice recognition technology. It may contain inaccuracies: misspellings, inaccurate syntax or word sense that escaped review. HISTORY: Fahad is a 71 year old male. He is here following up for right shoulder reverse total shoulder with a date of surgery of 04/04/2021. He states that he is doing well. He has difficulty putting on his shirt but otherwise no specific complaints. He has occasional aching. HISTORY OF PRESENT ILLNESS: PAIN EVALUATION No data found in the last 1 encounters. The patient's past medical history, surgical history, social history, family history, medications and allergies were reviewed with the patient today and are available in the chart for further review. EXAMINATION: Examination of the shoulder demonstrating the incision to be healed. No erythema. No ecchymosis. No arm swelling. Intact light sensation upper lateral border of the deltoid. No irritability with passive range of motion. Passive/active forward flexion to 130, external rotation to 30. Patient has active extension of the wrist and thumb. Biceps contour intact and non-painful/ no obvious sag. Good radial pulse Intact sensation to light touch distally No pain with neck ROM RADIOGRAPHS: XR obtained today, personally reviewed by myself demonstrating reverse total shoulder in good position IMPRESSION: Encounter Diagnosis ICD-10-CM 1. S/P reverse total shoulder arthroplasty, right Z96.611 XR SHOULDER GENERAL 3V OR MORE AP/TRUE AP/OTHER RIGHT Procedures PLAN: Patient postoperative reverse total shoulder. He is doing well. We discussed activity restrictions. We discussed antibiotic prophylaxis. He will follow-up as symptoms dictate Kev Ferrell MD documented in this encounter [facility] 11-08-2021 History of Present illness Narrative f/u rt shoulder replacement documented in this encounter [facility] 11-07-2021 Miscellaneous Notes Sent message to [facility] to assist in rescheduling [facility] patient, received message back that they could not accommodate, sent a message to to reschedule patient. documented in this encounter [facility] 10-31-2021 Miscellaneous Notes Pt needs nurse visit to troubleshoot CIC and if true issues needs cysto Ordered cysto so can get on schedule just in case as Dr. BOWER books up Routed to [employer] scheduling to please assist in scheduling 1 nurse visit chu 2. Cysto with Dr Dye if needed (can always cancel if nurse visit effective in troubleshooting) Lorrie Diaz PA-C Pt has been having a hard time cathing. He said it is hard to get started and once he gets the cath in 4 or 5 inches it comes to a hard stop. He doesn't want to push to hard because he doesn't want to puncture anything. He feels like the cath is hitting his intestines. documented in this encounter [facility] 06-23-2021 Miscellaneous Notes We have received fax from [employer]. icd-10 code: R33.9 retention of urine, unspecified. QTY: 180 Proc code: [id number] Item: male 16fr 16 int urinary cath 2/day: 60/month:180/90day supply QTY:180 Proc code: [id number] Item:3g foil packs each 2/day 60/month 180/90 day supply I have placed this in Dr. Dye's bin for him to sign and date this. I have printed off office notes from his 04/29/2020 office visit and placed this with this order to be faxed along with this order once signed and dated. documented in this encounter [facility] 06-16-2021 History of Present illness Narrative POPULATION HEALTH NAVIGATION OUTREACH Action/FYI Patient Outreach: Spoke with patient to schedule in RST. Pt declined RST Consult as he is getting locally. Pt identified by name and : YES, via phone Outreach Outcome/Action Spoke to patient or caregiver: Patient declined Reason for Outreach Care Gap or Scheduling/Wellness visits Payer: Payor: [employer] / Plan: [employer] / Product Type: HMO / Care Gap Reviewed:: RST Reminder: Reminder note to check Health Maintenance for items below Health Maintenance items due: ABDOMINAL AORTIC ANEURYSM SCREENING Never done LDL CHOLESTEROL Never done ANNUAL PCP TEAM CHRONIC DISEASE VISIT Never done HEPATITIS C SCREENING Never done BP CONTROLLED (<130/80) Never done DTAP,TDAP,TD(1 - Tdap) Never done LIPID SCREEN Never done COLORECTAL CANCER SCREENING Never done DEPRESSION SCREENING due on 05/30/2019 ADVANCE DIRECTIVE DISCUSSION Never done Message Sent to Practice: No Navigation Signature: Taylor Thornton June 16, 2021 12:51 PM documented in this encounter [facility] 06-14-2021 History of Present illness Narrative This document has been created with the use of voice recognition technology. It may contain inaccuracies: misspellings, inaccurate syntax or word sense that escaped review. HISTORY: Fahad is a 70 year old male. He is here following up for right reverse total shoulder with subscapularis repair with a date of surgery of 05/02/2021. He states he is improving from a pain standpoint and he is happy with his motion and strength progression. Does report some swelling at the distal incision, but no drainage or open wounds. No fevers or chills. HISTORY OF PRESENT ILLNESS: PAIN EVALUATION 06/14/2021 0909 Pain Level: 4 Pain Location: Shoulder-Right Description: Aching Duration Units: Unknown Frequency: Continuous Intervention/Comfort measure: Reposition;Relaxation;Exercise;Co ld;Positioning The patient's past medical history, surgical history, social history, family history, medications and allergies were reviewed with the patient today and are available in the chart for further review. EXAMINATION: Examination of the shoulder demonstrating the incision to be clean dry and intact with mild periincisional erythema. No purulence or drainage No ecchymosis. Slight edema periincisionally. Intact light sensation upper lateral border of the deltoid. No irritability with passive range of motion. Passive forward flexion to 130, active forward flexion to 90, external rotation to 25. Patient has active extension of the wrist and thumb. Biceps contour intact and non-painful/ no obvious sag. Good radial pulse Intact sensation to light touch distally No pain with neck ROM RADIOGRAPHS: None today IMPRESSION: Encounter Diagnosis ICD-10-CM 1. S/P reverse total shoulder arthroplasty, right Z96.611 Procedures PLAN: Patient presents for 6-week follow-up after right reverse total shoulder. Continue progressing with therapy and we recommend transition to outpatient therapy when deemed safe by home health care services. Went over precautions in detail, he was still have lifting restrictions at this point but no specific range of motion restrictions, except for forced extension. Follow-up in 6 to 8 weeks for recheck Nehemiah Gilbert PA-C I have personally performed face to face diagnostic evaluation on this patient. I have examined the patient and reviewed radiographic studies and agree with plan as outlined above. Kev Ferrell MD June 14, 2021 9:56 AM documented in this encounter [facility] 05-24-2021 Instructions Nehemiah Gilbert PA-C - 05/24/2021 10:21 AM EDT You will wear the sling for 4 weeks total so 1 more week after our appointment. We do not want you to actively move your shoulder joint until you are out of the sling. Once you arrive the sling will be allowed to do active motion of the shoulder with the therapist, but on your own you will limit reaching above head and limit reaching out away from your body. So this will be monitored active motion for an additional 3 to 4 weeks after coming out of the sling. You may get the incision wet but do not soak it. Let the glue fall off naturally. You do not need to cover the incision anymore. documented in this encounter [facility] 05-24-2021 History of Present illness Narrative This document has been created with the use of voice recognition technology. It may contain inaccuracies: misspellings, inaccurate syntax or word sense that escaped review. HISTORY: Fahad is a 70 year old male. He is here following up for reverse right shoulder arthroplasty with a date of surgery of 04/04/21. He states he is achy. He was discharged from the rehab facility on SundayMay 20. He is being set up for [facility] and will have a nurse aide coming a couple times a week as well. HISTORY OF PRESENT ILLNESS: PAIN EVALUATION 05/24/2021 0957 Pain Level: 5 Pain Location: Shoulder-Right Description: Aching Duration Amount of Time: 6 Duration Units: Weeks Frequency: Intermittent Intervention/Comfort measure: Medication The patient's past medical history, surgical history, social history, family history, medications and allergies were reviewed with the patient today and are available in the chart for further review. EXAMINATION: Examination of the shoulder demonstrating the incision to be well healed. No erythema. No ecchymosis. No arm swelling. Intact light sensation upper lateral border of the deltoid. No irritability with passive range of motion. Passive forward flexion to 100, external rotation not stressed due to nature of subscapularis repair. Patient has active extension of the wrist and thumb. Biceps contour intact and non-painful/ no obvious sag. Good radial pulse Intact sensation to light touch distally No pain with neck ROM RADIOGRAPHS: XR obtained today, personally reviewed by myself demonstrating implants well fixed. IMPRESSION: No diagnosis found. Procedures PLAN: Home PT. There are no incisional concerns on exam today everything is healing up nicely. Discussed with the patient in detail his precautions moving forward. He will be in the sling with subscap precautions for 1 more week from now and then once he comes out of the sling he will be allowed gentle active motion under therapy guidance. Follow-up in about [address] Ferrell for reassessment SIGNATURE: Nehemiah Gilbert PA-C PATIENT NAME: Fahad Sotelo DATE: May 24, 2021 TIME: 10:26 AM LEATHA Kay PA-C documented in this encounter [facility] 05-24-2021 History of Present illness Narrative Radiology Service Progress Note PATIENT NAME: Fahad Sotelo DATE OF SERVICE: May 24, 2021 TIME: 9:56 AM PATIENT IDENTITY VERIFICATION COMPLETED USING TWO (2) IDENTIFIERS: Name and Date of confirmed by patient verbally. FALL SCREENING: Has the patient had 2 falls in the last year or 1 fall with injury or currently using an Ambulatory Assistive Device (Walker, Cane, Wheelchair, Crutches, etc.)? No PATIENT GENDER DATA: Male PATIENT RELEVANT IMPLANT DATA REVIEWED: Yes RADIOLOGY DEPARTMENT: General X-ray: Exam(s) Completed: Upper Extremity X-Ray(s): Shoulder, AP / TRUE AP / AXILLARY right PERIPHERAL IV DATA: Not applicable SIGNED BY: RT Grupo(R) May 24, 2021 9:56 AM documented in this encounter [facility] 05-09-2021 Miscellaneous Notes Spoke to the therapist at the rehab facility and clarified orders. Nehemiah Gilbert PA-C Pt. Is in rehab. They are unsure of his rom limitions. At this time they believe it is only passive rom with external rotation past neutral. No active rom. And non weight bearing. Please review and advise them at number in contacts. documented in this encounter [facility] 05-04-2021 Note HNO ID: [id number] Author: Cheryl Trevino RN Service: Care Management Author Type: Registered Nurse Type: Care Mgt Progress Note Filed: 05/04/2021 3:43 PM Note Text: CARE MANAGEMENT PROGRESS NOTE SERVICE DATE: 05/04/2021 SERVICE TIME: 1150 LOS: 0 days Spoke with daughter Usman regarding HHC choices. She is going to look over list and let me know which company she wants. SIGNATURE: Cheryl Trevino RN PATIENT NAME: Fahad Sotelo DATE: May 04, 2021 TIME: 11:50 AM PAGER/CONTACT #: [phone] [facility] 05-04-2021 Note HNO ID: [id number] Author: Cheryl Trevino RN Service: Care Management Author Type: Registered Nurse Type: Care Mgt Progress Note Filed: 05/04/2021 11:39 AM Note Text: CARE MANAGEMENT DISCHARGE NOTE SERVICE DATE: 05/04/2021 SERVICE TIME: 11:38 AM LOS: 0 days Admission Date: 05/02/2021 DISCHARGE ARRANGEMENT (list agency and phone number) Discharge Arrangement: [facility] Was an expedited discharge program used?: No CAREGIVER ASSESSMENT: Caregiver is ready, willing and able to meet the patient's needs as recommended by the inter-professional team:: Yes Does the patient have an acute stroke diagnosis, or has the patient had a stroke during this admission?: No Patient's transition needs and plan for meeting these needs: SNF HANDOFF COMMUNICATION: Handoff to: Primary Care Physician;Other Caregiver Primary Care Physician Name/Phone: Stanton Velasco II Other Caregiver Name/Phone: [facility] TRANSPORTATION ARRANGEMENTS: Transportation Arrangements: Ambulance/[place] Transportation Agency and Phone #:: [facility] [phone] Date of Trip: 05/04/21 Time of Trip: 1600 Type of Service: BLS Non-emergency Is Patient Medicaid Pending?: No Continuous Process [employer] Location: [place] Destination: [facility] Financial Care Management Responsibility: None Discharge Information Row Name Admission (Current) from 05/02/[address] [facility] Agency [facility] SIGNATURE: Cheryl Trevino RN PATIENT NAME: Fahad Sotelo DATE: May 04, 2021 TIME: 11:38 AM PAGER/CONTACT #: [phone] [facility] 05-03-2021 Note HNO ID: [id number] Author: Cheryl Trevino RN Service: Care Management Author Type: Registered Nurse Type: Care Mgt Progress Note Filed: 05/03/2021 4:16 PM Note Text: CARE MANAGEMENT PROGRESS NOTE SERVICE DATE: 05/03/2021 SERVICE TIME: 4:14 PM LOS: 0 days [facility] can accept pending precert. [facility] tasked to start precert. SIGNATURE: Cheryl Trevino RN PATIENT NAME: Fahad Sotelo DATE: May 03, 2021 TIME: 4:14 PM PAGER/CONTACT #: [phone] [facility] 05-03-2021 Note HNO ID: [id number] Author: Cheryl Trevino RN Service: Care Management Author Type: Registered Nurse Type: Care Mgt Progress Note Filed: 05/03/2021 2:31 PM Note Text: CARE MANAGEMENT PROGRESS NOTE SERVICE DATE: 05/03/2021 SERVICE TIME: 2:30 PM LOS: 0 days [place] of Choice Given: Yes Reason Not Given: Unable to complete with this assessment - revisit Level of Care Discussed: [facility] Financial Disclosure Provided: Yes Provider List: [facility] Provider list within the patient's requested geographic area shared with the patient/family: Yes Quality and resource use metrics shared with the patient that are relevant to the patient's goals of care and treatment preferences:: Yes Referrals to 1. [facility], 2. [place]. Patient will need precert. SIGNATURE: Cheryl Trevino RN PATIENT NAME: Fahad Sotelo DATE: May 03, 2021 TIME: 2:30 PM PAGER/CONTACT #: [phone] [facility] 05-03-2021 Note HNO ID: [id number] Author: Cheryl Trevino RN Service: Care Management Author Type: Registered Nurse Type: Care Mgt Initial Assessment Filed: 05/03/2021 12:13 PM Note Text: CARE MANAGEMENT: ASSESSMENT AND DISCHARGE PLAN SERVICE DATE: May 03, 2021 SERVICE TIME: 12:12 PM PRIMARY CARE PHYSICIAN: Stanton Velasco II, MD ADMISSION STATUS: Extended Recovery MEDICAL: [employer] Patient/Chief Of Party Stated Goals: To return home to life as it was Health Insurance: Comment ([facility]) Health Issues Impacting Discharge Plan: Newly diagnosed Newly Diagnosed: TSA Last Discharge Date: 12/19/19 Is this Within the Past 30 days? Last discharge within 30 days: No Advance Directive: Current Advance Directive: Health Care Power of Underwriting Manager In Chart: Yes Up To Date and Valid: Yes Health LiteracyHow often do you need to have someone help you when you read instructions, pamphlets, or other written material from your doctor or pharmacy? : 1 - Never How confident are you filling out medical forms by yourself?: 1 - Extremely If Patient scores > 3 on either question, the following interventions were put into place:: Patient did not score > 3 on either question. Baseline Mental Status Prior to this Illness what was the patient's Baseline Mental Status?: Alert AND Oriented Prior to this illness, has anyone described the patient having any of the following behaviors?: Not Applicable Relationship of the informant to the patient:: Self Functional Status: Independent Does Patient Currently Receive Any Community Services or Home Care?: None Equipment Prior to Admission: Walker;Cane Has the Patient Been in a [facility] in the Past 30 days?: No SOCIAL: Living Arrangements: Home Lives With: Alone Financial Resources: Retired Primary Contact: Extended Emergency Contact Information Primary Emergency Contact: Raya Larsen Relation: Sister Supportive Patient Contact:: Yes Contact Resources: Family Caregiver AssessmentCaregiver is ready, willing and able to meet the patient's needs as recommended by the inter-professional team:: No Does the patient have an acute stroke diagnosis, or has the patient had a stroke during this admission?: No Patient's transition needs and plan for meeting these needs: Home with OP PT, HHC or SNF Patient's perception of need for this admission: shoulder surgery Medication Adherance I am convinced of the importance of my prescription medication: 0 - Agree Completely I worry that my prescription medication will do more harm than good to me : 0 - Disagree Completely I feel financially burdened by my [id number] expenses for my prescription medication:: 0 - Disagree Completely Risk Score: 0 Patient is categorized as: Low risk < 2 Are you interested in bedside delivery of your medications? Yes Is Patient Psychosocially Complex?: No ASSESSMENT AND PLAN: Medical Needs: Medical Needs: Two or more chronic diseases Psychosocial Needs: Psychosocial Needs: None FREEDOM OF CHOICE EXPLAINED: [place] of Choice Given: No Reason Not Given: Unable to complete with this assessment - revisit POTENTIAL TRANSITION PLANS Home;Home Care;[facility]/Intermediate Care Facility Patient from home alone. Patient self caths twice a day. Patient is concerned about going home with outpatient PT. Would like HHC or SNF if he qualifies. Patient has an outpatient PT at [facility] on . SIGNATURE: Cheryl Trevino RN PATIENT NAME: Fahad Sotelo DATE: May 03, 2021 TIME: 12:12 PM PAGER/CONTACT #: [phone] [facility] 05-03-2021 Note HNO ID: [id number] Author: Christina Salazar PA-C Service: Orthopaedic Surgery Author Type: Physician Check Processing Clerk Type: Progress Notes Filed: 05/03/2021 9:40 AM Note Text: ORTHOPAEDIC SURGERY POST OP CHECK PROGRESS NOTE Subjective: Comfortable Vitals: Afebrile. Vital Signs Stable. Good urine output. Physical Examination: Right Upper Extremity: Radial pulse palpable. Motor intact M/R/U/Ax, SILT M/R/U/Ax Dressing clean, dry and intact Shoulder soft Labs: none Impression: status post right reverse with sub scapular repair - Stable - Continue to monitor - PT/OT - pain controlled with PNB and peripheral pain catheter - remove duncan catheter prior to discharge Plan discussed with Dr. Gutierres at bedside during morning rounds Electronically signed by: Christina Salazar PA-C Pager: [phone] [facility] 05-02-2021 Note HNO ID: [id number] Author: CANDY Polanco) Service: Radiology Author Type: Filter Screen Cleaner Type: Progress Notes Filed: 05/02/2021 11:51 AM Note Text: Radiology Service Progress Note PATIENT NAME: Fahad Sotelo DATE OF SERVICE: May 02, 2021 TIME: 11:51 AM PATIENT IDENTITY VERIFICATION COMPLETED USING TWO (2) IDENTIFIERS: Name and Date of confirmed by patient verbally and Name and Date of confirmed by identification band. FALL SCREENING: Has the patient had 2 falls in the last year or 1 fall with injury or currently using an Ambulatory Assistive Device (Walker, Cane, Wheelchair, Crutches, etc.)? Inpatient: Screened on floor PATIENT GENDER DATA: Male PATIENT RELEVANT IMPLANT DATA REVIEWED: Not Applicable RADIOLOGY DEPARTMENT: General X-ray: Exam(s) Completed: Upper Extremity X-Ray(s): Shoulder, AP / Y-VIEW right PERIPHERAL IV DATA: Not applicable SIGNED BY: RT Sherri(Satinder) May 02, 2021 11:51 AM [facility] 05-02-2021 Note HNO ID: [id number] Author: Jeanne Beck APRN.FILTER SCREEN CLEANER Service: Anesthesiology Author Type: Nurse Flight Surveyor Type: Anesthesia Procedure Notes Filed: 05/02/2021 8:28 AM Note Text: ANESTHESIOLOGY PROCEDURE NOTE PIV General Information Procedure Start Time/Medication Administration: 05/02/2021 8:05 AM Patient Location: OR Staffing FILTER SCREEN CLEANER: Jeanne Beck APRN.FILTER SCREEN CLEANER Performed by: NATHANIEL Preparation Sterility Preparation: hand hygiene performed prior to procedure Site Prep: Betadine and chlorhexidine Procedure Details Indication: need for IV access Needle Size/Type: 18 gauge angiocath Imaging Guidance Used: No SIGNATURE: Jeanne Beck APRN.CRNA PATIENT NAME: Fahad Sotelo DATE: May 02, 2021 TIME: 8:27 AM CSN: [id number] [facility] 05-02-2021 Note HNO ID: [id number] Author: Jeanne Beck APRN.FILTER SCREEN CLEANER Service: Anesthesiology Author Type: Nurse Flight Surveyor Type: Anesthesia Procedure Notes Filed: 05/02/2021 8:22 AM Note Text: ANESTHESIOLOGY PROCEDURE NOTE Airway General Information Procedure Start Time/Medication Administration: 05/02/2021 7:46 AM Patient location during procedure: OR Timeout Performed Pre-procedure: timeout performed Consent Obtained: Yes Patient identity confirmed: arm band and care associate team physician Staffing FILTER SCREEN CLEANER: Jeanne Beck APRN.FILTER SCREEN CLEANER Performed by: NATHANIEL Indications and Patient Condition Preoxygenated: yes Patient position: sniffing Difficult Mask: No Indications for airway management: anesthesia anesthesia circuit Method: asleep Final Airway Details Final airway type: endotracheal airway Final Endotracheal Airway: ETT Cuffed: yes Successful intubation technique: direct laryngoscopy Endotracheal tube insertion site: oral Blade: Ana Blade size: #4 ETT size (mm): 7.5 Measured from: lips Measurement (cm): 23 Placement verified by: capnometry Cormack-Lehane Classification: grade IIa - partial view of glottis Number of attempts at approach: 1 Airway not difficult SIGNATURE: Jeanne Beck APRN.CRNA PATIENT NAME: Fahad Sotelo DATE: May 02, 2021 TIME: 8:22 AM CSN: [id number] [facility] 05-02-2021 Note HNO ID: [id number] Author: Jeanne Beck APRN.CRNA Service: Anesthesiology Author Type: Nurse Flight Surveyor Type: Anesthesia Procedure Notes Filed: 05/02/2021 7:43 AM Note Text: ANESTHESIOLOGY PROCEDURE NOTE Peripheral Nerve Block General Information Procedure Start Time/Medication Administration: 05/02/2021 7:31 AM Patient location during procedure: induction room Timeout Performed Pre-procedure: timeout performed Consent Obtained: Yes Patient identity confirmed: arm band Reason for block: post-op pain management/at surgeon's request Staffing Anesthesiologist: Vipul Do MD Performed by: anesthesiologist Preparation Sterility Preparation: hand hygiene performed prior to procedure, surgical cap used, mask used, sterile drape used during line insertion, skin prep agent completely dried prior to procedure Site Prep: Chloraprep Pre-Procedure Neuro Exam Location: RUE Sensory: intact Motor: intact Procedure Details Patient Position: supine Monitoring: Pulse OX and NIBP Block Type Upper Extremity: brachial plexus Approach: interscalene Laterality: right Injection Technique: catheter Ultrasound Guided: Yes Image in Chart: yes Local Infiltration: Yes Needle Needle Type: echogenic Needle Gauge: 22 G Needle Length: 83 mm Catheter Type: catheter through needle Assessment Injection assessment: negative aspiration, no paresthesia on injection, incremental injection and local visualized surrounding nerve on ultrasound Post-Procedure Neuro Exam Expected Regional Anesthesia: Yes Medications Administered Ropivacaine (PF) 2 mg/mL (0.2 %) injection (NAROPIN), 20 mL dexamethasone sodium phosphate injection (DECADRON), 10 mg SIGNATURE: Jeanne Beck APRN.FILTER SCREEN CLEANER PATIENT NAME: Fahad Sotelo DATE: May 02, 2021 TIME: 7:42 AM CSN: [id number] [facility] 01-04-2021 History of Present illness Narrative Radiology Service Progress Note PATIENT NAME: Fahad Sotelo DATE OF SERVICE: January 04, 2021 TIME: 11:16 AM PATIENT IDENTITY VERIFICATION COMPLETED USING TWO (2) IDENTIFIERS: Name and Date of confirmed by patient verbally. FALL SCREENING: Has the patient had 2 falls in the last year or 1 fall with injury or currently using an Ambulatory Assistive Device (Walker, Cane, Wheelchair, Crutches, etc.)? No PATIENT GENDER DATA: Male PATIENT RELEVANT IMPLANT DATA REVIEWED: Not Applicable RADIOLOGY DEPARTMENT: CT; Exam(s) Completed: Upper extremity PERIPHERAL IV DATA: Not applicable SIGNED BY: PREM Calles January 04, 2021 11:16 AM documented in this encounter [facility] 12-21-2020 History of Present illness Narrative Radiology Service Progress Note PATIENT NAME: Fahad Sotelo DATE OF SERVICE: December 21, 2020 TIME: 11:38 AM PATIENT IDENTITY VERIFICATION COMPLETED USING TWO (2) IDENTIFIERS: Name and Date of confirmed by patient verbally. FALL SCREENING: Has the patient had 2 falls in the last year or 1 fall with injury or currently using an Ambulatory Assistive Device (Walker, Cane, Wheelchair, Crutches, etc.)? No PATIENT GENDER DATA: Male PATIENT RELEVANT IMPLANT DATA REVIEWED: Not Applicable RADIOLOGY DEPARTMENT: General X-ray: Exam(s) Completed: Upper Extremity X-Ray(s): Shoulder, AP / TRUE AP / AXILLARY right PERIPHERAL IV DATA: Not applicable SIGNED BY: RT Gerber(R) December 21, 2020 11:38 AM documented in this encounter [facility] Evaluation note Diagnosis Nontraumatic complete tear of right rotator cuff- [facility] Diagnosis S/P reverse total shoulder arthroplasty, right- Primary [facility] noteNo assessment information availableCommunity [facility] Work Phone: Evaluation note* Diagnosis S/P reverse total shoulder arthroplasty, right- [facility] Diagnosis Urinary retention- Primary Retention of urine, unspecified Self-catheterizes urinary bladder Other specified conditions influencing health status Benign prostatic hyperplasia with weak urinary stream [facility] S/P reverse total shoulder arthroplasty, right- [facility] Chronic knee pain after total replacement of right knee joint- Primary [facility]* Diagnosis Stricture of male urethra, unspecified stricture type- Primary Urinary urgency Urgency of urination [facility]* Diagnosis Screening for genitourinary condition- Primary Screening for other and unspecified genitourinary condition Stricture of male urethra, unspecified stricture type documented in this encounter [facility] note* Diagnosis Rotator cuff dysfunction, left- Primary History of failed repair of rotator cuff Other postprocedural status Left shoulder pain, unspecified chronicity [facility]* Diagnosis History of lumbar fusion Chronic midline low back pain, unspecified whether sciatica present Radiculopathy of lumbar region Thoracic or lumbosacral neuritis or radiculitis, unspecified [facility]* Diagnosis Nontraumatic complete tear of right rotator cuff Rotator cuff arthropathy of right shoulder Arthritis of shoulder Unspecified arthropathy, shoulder region documented in this encounter [facility] note* Diagnosis Stricture of urethral meatus in male, unspecified stricture type- Primary [facility]* Diagnosis Screening for genitourinary condition- Primary Screening for other and unspecified genitourinary condition [facility]* Diagnosis Stricture of male urethra, unspecified stricture type- Primary Post-traumatic stricture of anterior urethra Self-catheterizes urinary bladder Other specified conditions influencing health status documented in this encounter [facility] note* Diagnosis Stricture of male urethra, unspecified stricture type- Primary Urinary urgency Urgency of urination Low bladder compliance Urinary frequency [facility]* Diagnosis Pre-op evaluation- Primary Preoperative examination, unspecified Coronary artery disease involving yocha dehe coronary artery of yocha dehe heart without angina pectoris Mixed hyperlipidemia Essential hypertension Unspecified essential hypertension Urge incontinence Cervical spondylosis with myelopathy Obesity, Class I, BMI 30-34.9 Obesity, unspecified 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 * Assessment & Plan Note - Rigo Cano APRN.CNP - 07/05/2023 10:07 AM EDTAssociated Problem(s): Obesity, Class I, BMI 30-34.9 Assessment: Body mass index is 32.73 kg/m . * Assessment & Plan Note - Rigo Cano APRN.CNP - 07/05/2023 10:06 AM EDTAssociated Problem(s): Mixed hyperlipidemia Assessment: stable on medication * Assessment & Plan Note - Rigo Cano APRN.CNP - 07/05/2023 10:06 AM EDTAssociated Problem(s): Essential hypertension Assessment: Stable on medication Today BP: 124/70 To take medication morning of surgery * Assessment & Plan Note - Rigo Cano APRN.CNP - 07/05/2023 10:05 AM EDTAssociated Problem(s): Cervical spondylosis with myelopathy Assessment: s/p cervical fusion * Assessment & Plan Note - Rigo Cano APRN.CNP - 07/05/2023 10:05 AM EDTAssociated Problem(s): CAD (coronary artery disease) Assessment: LA in 1997. 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 in 2004 emergency CABG due to complicated PCI stable on ASA follows with Cardiology Last OV 06/11/2023 [facility]* Diagnosis Dysuria- Primary [facility]* Diagnosis Urinary retention- Primary Retention of urine, unspecified [facility]* Diagnosis Other specified pre-operative examination- Primary Primary osteoarthritis of right knee Primary localized osteoarthrosis, lower leg Essential hypertension Unspecified essential hypertension Hyperlipidemia, unspecified hyperlipidemia type Coronary artery disease involving yocha dehe coronary artery of yocha dehe heart without angina pectoris Pre-op evaluation- Primary Preoperative examination, unspecified Rotator cuff tear arthropathy of right shoulder Traumatic arthropathy, shoulder region Essential hypertension Unspecified essential hypertension Coronary artery disease involving yocha dehe coronary artery of yocha dehe heart without angina pectoris Obesity, Class I, BMI 30-34.9 Obesity, unspecified Urge incontinence Left shoulder pain, unspecified chronicity Pre-op evaluation- Primary Preoperative examination, unspecified Coronary artery disease involving yocha dehe coronary artery of yocha dehe heart without angina pectoris Mixed hyperlipidemia Essential hypertension Unspecified essential hypertension Urge incontinence Cervical spondylosis with myelopathy Obesity, Class I, BMI 30-34.9 Obesity, unspecified documented in this encounter [facility] note* Diagnosis Other specified pre-operative examination- Primary Primary osteoarthritis of right knee Primary localized osteoarthrosis, lower leg Essential hypertension Unspecified essential hypertension Hyperlipidemia, unspecified hyperlipidemia type Coronary artery disease involving yocha dehe coronary artery of yocha dehe heart without angina pectoris Pre-op evaluation- Primary Preoperative examination, unspecified Rotator cuff tear arthropathy of right shoulder Traumatic arthropathy, shoulder region Essential hypertension Unspecified essential hypertension Coronary artery disease involving yocha dehe coronary artery of yocha dehe heart without angina pectoris Obesity, Class I, BMI 30-34.9 Obesity, unspecified Urge incontinence S/P reverse total shoulder arthroplasty, right Pre-op evaluation- Primary Preoperative examination, unspecified Coronary artery disease involving yocha dehe coronary artery of yocha dehe heart without angina pectoris Mixed hyperlipidemia Essential hypertension Unspecified essential hypertension Urge incontinence Cervical spondylosis with myelopathy Obesity, Class I, BMI 30-34.9 Obesity, unspecified [facility]* Diagnosis Other specified pre-operative examination- Primary Primary osteoarthritis of right knee Primary localized osteoarthrosis, lower leg Essential hypertension Unspecified essential hypertension Hyperlipidemia, unspecified hyperlipidemia type Coronary artery disease involving yocha dehe coronary artery of yocha dehe heart without angina pectoris Pre-op evaluation- Primary Preoperative examination, unspecified Rotator cuff tear arthropathy of right shoulder Traumatic arthropathy, shoulder region Essential hypertension Unspecified essential hypertension Coronary artery disease involving yocha dehe coronary artery of yocha dehe heart without angina pectoris Obesity, Class I, BMI 30-34.9 Obesity, unspecified Urge incontinence Chronic knee pain after total replacement of right knee joint Pre-op evaluation- Primary Preoperative examination, unspecified Coronary artery disease involving yocha dehe coronary artery of yocha dehe heart without angina pectoris Mixed hyperlipidemia Essential hypertension Unspecified essential hypertension Urge incontinence Cervical spondylosis with myelopathy Obesity, Class I, BMI 30-34.9 Obesity, unspecified [facility] Diagnosis Other specified pre-operative examination- Primary Primary osteoarthritis of right knee Primary localized osteoarthrosis, lower leg Essential hypertension Unspecified essential hypertension Hyperlipidemia, unspecified hyperlipidemia type Coronary artery disease involving yocha dehe coronary artery of yocha dehe heart without angina pectoris Pre-op evaluation- Primary Preoperative examination, unspecified Rotator cuff tear arthropathy of right shoulder Traumatic arthropathy, shoulder region Essential hypertension Unspecified essential hypertension Coronary artery disease involving yocha dehe coronary artery of yocha dehe heart without angina pectoris Obesity, Class I, BMI 30-34.9 Obesity, unspecified Urge incontinence Nontraumatic complete tear of right rotator cuff Pre-op evaluation- Primary Preoperative examination, unspecified Coronary artery disease involving yocha dehe coronary artery of yocha dehe heart without angina pectoris Mixed hyperlipidemia Essential hypertension Unspecified essential hypertension Urge incontinence Cervical spondylosis with myelopathy Obesity, Class I, BMI 30-34.9 Obesity, unspecified [facility] Diagnosis Other specified pre-operative examination- Primary Primary osteoarthritis of right knee Primary localized osteoarthrosis, lower leg Essential hypertension Unspecified essential hypertension Hyperlipidemia, unspecified hyperlipidemia type Coronary artery disease involving yocha dehe coronary artery of yocha dehe heart without angina pectoris Right shoulder pain, unspecified chronicity Pre-op evaluation- Primary Preoperative examination, unspecified Rotator cuff tear arthropathy of right shoulder Traumatic arthropathy, shoulder region Essential hypertension Unspecified essential hypertension Coronary artery disease involving yocha dehe coronary artery of yocha dehe heart without angina pectoris Obesity, Class I, BMI 30-34.9 Obesity, unspecified Urge incontinence Pre-op evaluation- Primary Preoperative examination, unspecified Coronary artery disease involving yocha dehe coronary artery of yocha dehe heart without angina pectoris Mixed hyperlipidemia Essential hypertension Unspecified essential hypertension Urge incontinence Cervical spondylosis with myelopathy Obesity, Class I, BMI 30-34.9 Obesity, unspecified [facility]* Diagnosis Other specified pre-operative examination- Primary Primary osteoarthritis of right knee Primary localized osteoarthrosis, lower leg Essential hypertension Unspecified essential hypertension Hyperlipidemia, unspecified hyperlipidemia type Coronary artery disease involving yocha dehe coronary artery of yocha dehe heart without angina pectoris Nontraumatic tear of right rotator cuff, unspecified tear extent Acute pain of right shoulder Pre-op evaluation- Primary Preoperative examination, unspecified Rotator cuff tear arthropathy of right shoulder Traumatic arthropathy, shoulder region Essential hypertension Unspecified essential hypertension Coronary artery disease involving yocha dehe coronary artery of yocha dehe heart without angina pectoris Obesity, Class I, BMI 30-34.9 Obesity, unspecified Urge incontinence Pre-op evaluation- Primary Preoperative examination, unspecified Coronary artery disease involving yocha dehe coronary artery of yocha dehe heart without angina pectoris Mixed hyperlipidemia Essential hypertension Unspecified essential hypertension Urge incontinence Cervical spondylosis with myelopathy Obesity, Class I, BMI 30-34.9 Obesity, unspecified [facility] Diagnosis Other specified pre-operative examination- Primary Primary osteoarthritis of right knee Primary localized osteoarthrosis, lower leg Essential hypertension Unspecified essential hypertension Hyperlipidemia, unspecified hyperlipidemia type Coronary artery disease involving yocha dehe coronary artery of yocha dehe heart without angina pectoris Pain in right hip Pain in joint, pelvic region and thigh Pre-op evaluation- Primary Preoperative examination, unspecified Rotator cuff tear arthropathy of right shoulder Traumatic arthropathy, shoulder region Essential hypertension Unspecified essential hypertension Coronary artery disease involving yocha dehe coronary artery of yocha dehe heart without angina pectoris Obesity, Class I, BMI 30-34.9 Obesity, unspecified Urge incontinence Pre-op evaluation- Primary Preoperative examination, unspecified Coronary artery disease involving yocha dehe coronary artery of yocha dehe heart without angina pectoris Mixed hyperlipidemia Essential hypertension Unspecified essential hypertension Urge incontinence Cervical spondylosis with myelopathy Obesity, Class I, BMI 30-34.9 Obesity, unspecified [facility]* Diagnosis Other specified pre-operative examination- Primary Primary osteoarthritis of right knee Primary localized osteoarthrosis, lower leg Essential hypertension Unspecified essential hypertension Hyperlipidemia, unspecified hyperlipidemia type Coronary artery disease involving yocha dehe coronary artery of yocha dehe heart without angina pectoris Pre-op evaluation- Primary Preoperative examination, unspecified Rotator cuff tear arthropathy of right shoulder Traumatic arthropathy, shoulder region Essential hypertension Unspecified essential hypertension Coronary artery disease involving yocha dehe coronary artery of yocha dehe heart without angina pectoris Obesity, Class I, BMI 30-34.9 Obesity, unspecified Urge incontinence Pre-op evaluation- Primary Preoperative examination, unspecified Coronary artery disease involving yocha dehe coronary artery of yocha dehe heart without angina pectoris Mixed hyperlipidemia Essential hypertension Unspecified essential hypertension Urge incontinence Cervical spondylosis with myelopathy Obesity, Class I, BMI 30-34.9 Obesity, unspecified Urinary urgency- Primary Urgency of urination Obesity, Class I, BMI 30-34.9 Obesity, unspecified Overactive bladder Hypertonicity of bladder Urinary retention Retention of urine, unspecified 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 Self-catheterizes urinary bladder Other specified conditions influencing health status [facility] Diagnosis Other specified pre-operative examination- Primary Primary osteoarthritis of right knee Primary localized osteoarthrosis, lower leg Essential hypertension Unspecified essential hypertension Hyperlipidemia, unspecified hyperlipidemia type Coronary artery disease involving yocha dehe coronary artery of yocha dehe heart without angina pectoris Pre-op evaluation- Primary Preoperative examination, unspecified Rotator cuff tear arthropathy of right shoulder Traumatic arthropathy, shoulder region Essential hypertension Unspecified essential hypertension Coronary artery disease involving yocha dehe coronary artery of yocha dehe heart without angina pectoris Obesity, Class I, BMI 30-34.9 Obesity, unspecified Urge incontinence Pre-op evaluation- Primary Preoperative examination, unspecified Coronary artery disease involving yocha dehe coronary artery of yocha dehe heart without angina pectoris Mixed hyperlipidemia Essential hypertension Unspecified essential hypertension Urge incontinence Cervical spondylosis with myelopathy Obesity, Class I, BMI 30-34.9 Obesity, unspecified Urinary frequency- Primary Urgency of urination Incomplete bladder emptying [facility] Diagnosis Chronic idiopathic constipation- Primary Unspecified constipation 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 Excessive sweating Generalized hyperhidrosis documented in this encounter [facility]* Diagnosis Routine general medical examination at health care facility- Primary Routine general medical examination at a health care facility ACP (advance care planning) Other specified counseling Atherosclerosis of yocha dehe coronary artery of yocha dehe heart without angina pectoris (CMS/HCC) Benign essential hypertension (CMS/HCC) Essential hypertension, benign Raynaud's syndrome without gangrene Chronic ischemic heart disease (CMS/HCC) Unspecified chronic ischemic heart disease Dyslipidemia (CMS/HCC) Other and unspecified hyperlipidemia Chronic knee pain after total replacement of right knee joint Presence of shoulder joint prosthesis Primary osteoarthritis of both hips Multiple nodules of lung History of lumbar fusion Prostate cancer screening Special screening for malignant neoplasm of prostate Acute sinusitis, recurrence not specified, unspecified location documented in this encounter [facility] HealthcareEvaluation note* Diagnosis Other specified pre-operative examination- Primary Primary osteoarthritis of right knee Primary localized osteoarthrosis, lower leg Essential hypertension Unspecified essential hypertension Hyperlipidemia, unspecified hyperlipidemia type Coronary artery disease involving yocha dehe coronary artery of yocha dehe heart without angina pectoris Pre-op evaluation- Primary Preoperative examination, unspecified Rotator cuff tear arthropathy of right shoulder Traumatic arthropathy, shoulder region Essential hypertension Unspecified essential hypertension Coronary artery disease involving yocha dehe coronary artery of yocha dehe heart without angina pectoris Obesity, Class I, BMI 30-34.9 Obesity, unspecified Urge incontinence Pre-op evaluation- Primary Preoperative examination, unspecified Coronary artery disease involving yocha dehe coronary artery of yocha dehe heart without angina pectoris Mixed hyperlipidemia Essential hypertension Unspecified essential hypertension Urge incontinence Cervical spondylosis with myelopathy Obesity, Class I, BMI 30-34.9 Obesity, unspecified Inguinal hernia without obstruction or gangrene, recurrence not specified, unspecified laterality- Primary Overactive bladder Hypertonicity of bladder Incomplete bladder emptying [facility] Benign essential hypertension (CMS/HCC)- Primary Essential hypertension, benign Pulmonary granuloma of histoplasmosis (HCC) (CMS/HCC) Dyslipidemia (CMS/HCC) Other and unspecified hyperlipidemia Allergic rhinitis, unspecified seasonality, unspecified trigger documented in this encounter [facility] HealthcareEvaluation note* Diagnosis Chronic idiopathic constipation- Primary Unspecified constipation documented in this encounter [facility] HealthcareReason for referral (narrative)* Diagnostic Procedure Only (Routine) - Pending Review Specialty Diagnoses / Procedures Referred By Gene t Referred To Contact XR IMAGING Diagnoses Nontraumatic complete tear of right rotator cuff Procedures XR SHOULDER GENERAL 3V OR MORE AP/TRUE AP/OTHER RIGHT RADEX SHOULDER COMPLETE MINIMUM 2 VIEWS Nehemiah Gilbert PA-C [address] [facility] [place] [address] Xr Imaging Referral ID Status Reason Start Date Expiration Date Visits Requested Visits Authorized [id number] Pending Review Auto-Generat ed Referral 05/16/2021 06/15/2022 1 1 [facility] for referral (narrative)* - Pending Review Specialty Diagnoses / Procedures Referred By Contac t Referred To Contact Physical Therapy Diagnoses S/P reverse total shoulder arthroplasty, right Procedures CONSULT TO PHYSICAL THERAPY Nehemiah Gilbert PA-C [address] [place] [address] Referral ID Status Reason Start Date Expiration Date V isits Requested Visits Authorized [id number] Pending Review 06/14/2021 09/12/2021 1 1 [facility] for referral (narrative)* Diagnostic Procedure Only (Routine) - Closed Specialty Diagnoses / Procedures Referred By Contac t Referred To Contact XR IMAGING Diagnoses S/P reverse total shoulder arthroplasty, right Procedures XR SHOULDER GENERAL 3V OR MORE AP/TRUE AP/OTHER RIGHT RADEX SHOULDER COMPLETE MINIMUM 2 VIEWS Nehemiah Gilbert PA-C [address] [place] [address] Xr Imaging Referral ID Status Reason Start Date Expiration Date V isits Requested Visits Authorized [id number] Closed Auto-Generate d Referral 11/07/2021 12/04/2022 1 1 [facility] for referral (narrative)* Diagnostic Procedure Only (Routine) - Closed Specialty Diagnoses / Procedures Referred By Contac t Referred To Contact XR IMAGING Diagnoses Chronic knee pain after total replacement of right knee joint Procedures XR KNEE POST OP 3V AP/LAT/MERCHANT RIGHT RADIOLOGIC EXAMINATION KNEE 3 VIEWS Kev Ferrell MD [address] [place] [address] Xr Imaging Referral ID Status Reason Start Date Expiration Date V isits Requested Visits Authorized [id number] Closed Auto-Generate d Referral 11/11/2021 12/10/2022 1 1 [facility] for referral (narrative)* Diagnostic Procedure Only (Routine) - Closed Specialty Diagnoses / Procedures Referred By Contac t Referred To Contact XR IMAGING Diagnoses Left shoulder pain, unspecified chronicity Procedures XR SHOULDER ORTHO 4V AP/TRUE AP/LAT/OUTLET LEFT RADEX SHOULDER COMPLETE MINIMUM 2 VIEWS Nehemiah Gilbert PA-C [address] [place] [address] Xr Imaging Referral ID Status Reason Start Date Expiration Date V isits Requested Visits Authorized [id number] Closed Auto-Generat ed Referral Patient Cleared - Admin/Chairm an/Director advise to proceed 06/22/2022 07/06/2023 1 1 [facility] for referral (narrative)* Diagnostic Procedure Only (Routine) - Closed Specialty Diagnoses / Procedures Referred By Contac t Referred To Contact CT IMAGING Diagnoses History of lumbar fusion Chronic midline low back pain, unspecified whether sciatica present Radiculopathy of lumbar region Procedures CT LUMBAR SPINE WO IVCON CT SCAN LUMBAR SPINE Himanshu Barba MD [address] [place] [address] Ct Imaging Referral ID Status Reason Start Date Expiration Date V isits Requested Visits Authorized [id number] Closed Auto-Generate d Referral 06/17/2020 07/17/2021 1 1 T [facility] for referral (narrative)* Diagnostic Procedure Only (Routine) - Pending Review Specialty Diagnoses / Procedures Referred By Contac t Referred To Contact US IMAGING Diagnoses Stricture of male urethra, unspecified stricture type Urinary urgency Procedures US KIDNEY/BLADDER US RETROPERITONEAL REAL TIME W/IMAGE COMPLETE Louie Salomon MD [address] [place] [address] [place] [address] Referral ID Status Reason Start Date Expiration Date Visits Requested Visits Authorized [id number] Pending Review Auto-Generat ed Referral 06/20/2023 07/19/2024 1 1 [facility] for referral (narrative)* Diagnostic Procedure Only (Routine) - Closed Specialty Diagnoses / Procedures Referred By Gene t Referred To Contact XR IMAGING Diagnoses Left shoulder pain, unspecified chronicity Procedures XR SHOULDER ORTHO 4V AP/TRUE AP/LAT/OUTLET LEFT RADEX SHOULDER COMPLETE MINIMUM 2 VIEWS Nehemiah Gilbert PA-C [address] [place] [address] [place] [address] Referral ID Status Reason Start Date Expiration Date V isits Requested Visits Authorized [id number] Closed Auto-Generat ed Referral Patient Cleared - Admin/Chairm an/Director advise to proceed or did not respond 06/22/2022 07/06/2023 1 1 [facility] for referral (narrative)* Diagnostic Procedure Only (Routine) - Closed Specialty Diagnoses / Procedures Referred By Gene yu Referred To Contact XR IMAGING Diagnoses S/P reverse total shoulder arthroplasty, right Procedures XR SHOULDER GENERAL 3V OR MORE AP/TRUE AP/OTHER RIGHT RADEX SHOULDER COMPLETE MINIMUM 2 VIEWS Nehemiah Gilbert PA-C [address] [place] [address] [place] [address] Referral ID Status Reason Start Date Expiration Date V isits Requested Visits Authorized [id number] Closed Auto-Generate d Referral 11/07/2021 12/04/2022 1 1 [facility] for referral (narrative)* Diagnostic Procedure Only (Routine) - Closed Specialty Diagnoses / Procedures [facility] Diagnoses Chronic knee pain after total replacement of right knee joint Procedures XR KNEE POST OP 3V AP/LAT/MERCHANT RIGHT RADIOLOGIC EXAMINATION KNEE 3 VIEWS Kev Ferrell MD [address] [facility] [place] [place] [address] [place] [address] Referral ID Status Reason Start Date Expiration Date V isits Requested Visits Authorized [id number] Closed Auto-Generate d Referral 11/11/2021 12/10/2022 1 1 [facility] for referral (narrative)* Diagnostic Procedure Only (Routine) - Closed Specialty Diagnoses / Procedures Referred By Contac t Referred To Contact XR IMAGING Diagnoses Nontraumatic complete tear of right rotator cuff Procedures XR SHOULDER GENERAL 3V OR MORE AP/TRUE AP/OTHER RIGHT RADEX SHOULDER COMPLETE MINIMUM 2 VIEWS Nehemiah Gilbert PA-C [address] [place] [address] [place] [address] Referral ID Status Reason Start Date Expiration Date V isits Requested Visits Authorized [id number] Closed Auto-Generate d Referral 05/16/2021 06/15/2022 1 1 [facility] for referral (narrative)* Diagnostic Procedure Only (Routine) - Closed Specialty Diagnoses / Procedures Referred By Contac t Referred To Contact XR IMAGING Diagnoses Right shoulder pain, unspecified chronicity Procedures XR SHOULDER ORTHO 4V AP/TRUE AP/LAT/OUTLET RT X-RAY SHOULDER COMPLET MIN 2 VIEWS Nehemiah Gilbert PA-C [address] [place] [address] [place] [address] Referral ID Status Reason Start Date Expiration Date V isits Requested Visits Authorized [id number] Closed Auto-Generate d Referral 12/13/2020 01/12/2022 [address] [facility] for referral (narrative)* Diagnostic Procedure Only (Routine) - Closed Specialty Diagnoses / Procedures Referred By Contac t Referred To Contact MR IMAGING Diagnoses Nontraumatic tear of right rotator cuff, unspecified tear extent Acute pain of right shoulder Procedures MRI SHOULDER WO IVCON RT MRI, JOINT UPPER EXTREM Stanton Kirkland PA-C [address] [place] [address] Mr Imaging [facility] Referral ID Status Reason Start Date Expiration Date V isits Requested Visits Authorized [id number] Closed Auto-Generate d Referral 07/30/2020 08/29/2021 1 1 [facility] for referral (narrative)* Outpatient Procedure (Routine) - New Request Specialty Diagnoses / Procedures Referred By Gene t Referred To Contact [facility] Diagnoses Overactive bladder Incomplete bladder emptying Procedures PERIPHERAL NERVE EVALUATION (PNE) PRQ IMPLTJ NEUROSTIM ELTRD SACRAL NRVE W/IMAGING Fady Dye MD [address] [place] [address] [place] [address] Referral ID Status Reason Start Date Expiration Date Visits Requested Visits Authorized [id number] New Request Auto-Generat ed Referral 02/18/2024 02/17/2025 1 1 * Consult, Test, Treat (Routine) - Authorized Specialty Diagnoses / Procedures Referred By Gene yu Referred To Contact General Surgery Diagnoses Inguinal hernia without obstruction or gangrene, recurrence not specified, unspecified laterality Procedures CONSULT TO GENERAL SURGERY OFFICE/OUTPATIENT NEW HIGH MDM 60 MINUTES Fady Dye MD [address] [place] [address] Referral ID Status Reason Start Date Expiration Date Visits Requested Visits Authorized [id number] Authorized PCP Requested Referral 02/18/2024 02/17/2025 1 1 [facility] for visit Narrative* Diagnostic Procedure Only (Routine) - Closed Specialty Diagnoses / Procedures Referred By Gene t Referred To Contact CT IMAGING Diagnoses History of lumbar fusion Chronic midline low back pain, unspecified whether sciatica present Radiculopathy of lumbar region Procedures CT LUMBAR SPINE WO IVCON CT SCAN LUMBAR SPINE Himanshu Barba MD [address] [place] [address] Ct Imaging Referral ID Status Reason Start Date Expiration Date V isits Requested Visits Authorized [id number] Closed Auto-Generate d Referral 06/17/2020 07/17/2021 1 1 [facility] for visit Narrative* Diagnostic Procedure Only (Routine) - Closed Specialty Diagnoses / Procedures Referred By Contac t Referred To Contact XR IMAGING Diagnoses Chronic knee pain after total replacement of right knee joint Procedures XR KNEE POST OP 3V AP/LAT/MERCHANT RIGHT RADIOLOGIC EXAMINATION KNEE 3 VIEWS Kev Ferrell MD [address] [place] [address] [place] [address] Referral ID Status Reason Start Date Expiration Date V isits Requested Visits Authorized [id number] Closed Auto-Generate d Referral 11/11/2021 12/10/2022 1 1 [facility] for visit Narrative* Diagnostic Procedure Only (Routine) - Closed Specialty Diagnoses / Procedures Referred By Contac t Referred To Contact XR IMAGING Diagnoses Nontraumatic complete tear of right rotator cuff Procedures XR SHOULDER GENERAL 3V OR MORE AP/TRUE AP/OTHER RIGHT RADEX SHOULDER COMPLETE MINIMUM 2 VIEWS Nehemiah Gilbert PA-C [address] [place] [address] [place] [address] Referral ID Status Reason Start Date Expiration Date V isits Requested Visits Authorized [id number] Closed Auto-Generate d Referral 05/16/2021 06/15/2022 1 1 [facility] for visit Narrative* Diagnostic Procedure Only (Routine) - Closed Specialty Diagnoses / Procedures Referred By Contac t Referred To Contact MR IMAGING Diagnoses Nontraumatic tear of right rotator cuff, unspecified tear extent Acute pain of right shoulder Procedures MRI SHOULDER WO IVCON RT MRI, JOINT UPPER EXTREM Stanton Kirkland PA-C [address] [place] [address] [place] [address] Referral ID Status Reason Start Date Expiration Date V isits Requested Visits Authorized [id number] Closed Auto-Generate d Referral 07/30/2020 08/29/2021 1 1 [facility] Summary Purpose Family History No Family History Records FoundNo Family History Records FoundNo Family History Records FoundNo Family History Records FoundNo Family History Records FoundNo Family History Records FoundNo Family History Records FoundNo Family History Records FoundNo Family History Records FoundNo Family History Records Found Advance Directives No Advanced Directives Records FoundDocuments on File Type Date Recorded Patient Chief Of Party Expl anation Advance Directive(s) 05/02/2021 6:09 AM Advance Directive(s) 04/01/2021 11:56 AM Advance Directive(s) 12/19/2019 6:45 AM Advance Directive(s) 11/14/2019 11:15 AM Advance Directive(s) 01/08/2019 6:39 AM Advance Directive(s) 10/30/2018 9:59 AM Advance Directive(s) 07/20/2017 8:56 AM Advance Directive(s) 07/06/2017 8:04 AM Advance Directive(s) 05/23/2017 11:02 AM Advance Directive(s) 05/23/2017 1:08 PM Advance Directive(s) 05/23/2017 1:09 PM Documents on File Type Date Recorded Patient Chief Of Party Expl anation Advance Directive(s) 05/02/2021 6:09 AM Advance Directive(s) 04/01/2021 11:56 AM Advance Directive(s) 12/19/2019 6:45 AM Advance Directive(s) 11/14/2019 11:15 AM Advance Directive(s) 01/08/2019 6:39 AM Advance Directive(s) 10/30/2018 9:59 AM Advance Directive(s) 07/20/2017 8:56 AM Advance Directive(s) 07/06/2017 8:04 AM Advance Directive(s) 05/23/2017 11:02 AM Advance Directive(s) 05/23/2017 1:08 PM Advance Directive(s) 05/23/2017 1:09 PM Advance Directive Response Recorded Date/ Time Advance Directives No October 11:57am Documents on File Type Date Recorded Patient Chief Of Party Expl anation Advance Directive(s) 05/23/2017 1:09 PM Documents on File Type Date Recorded Patient Chief Of Party Expl anation Advance Directive(s) 05/23/2017 1:09 PM Medications Administered Section Inactive Administered Medications - up to 3 most recent administrations Medication Order MAR Action Action Date Dose Rate Site cephALEXin 500 mg cap(s) (KEFLEX) 500 mg, ORAL, ONCE, 1 dose, On Sun05/30/22 at 2029, Please document the antimicrobial indication: Prophylaxis Given 05/31/2022 2:05 PM EDT 500 mg lidocaine urojet 2 % 11 mL topical gel (GLYDO) 11 mL, URETHRAL, ONCE, 1 dose, On Sun05/30/22 at 2029 Given 05/31/2022 2:07 PM EDT 11 mL Reason for Referral Specialty Diagnoses / Procedures Referred By Gene t Referred To Contact CT IMAGING Diagnoses Nontraumatic complete tear of right rotator cuff Rotator cuff arthropathy of right shoulder Arthritis of shoulder Procedures CT SHOULDER WO IVCON RT CT SCAN OF ARM Kev Ferrell MD [address] [place] [address] Ct Imaging Referral ID Status Reason Start Date Expiration Date V isits Requested Visits Authorized [id number] Closed Auto-Generate d Referral 12/21/2020 01/20/2022 1 1 Additional Source Comments (unrecognized sect ion and content) No Status Records FoundNo Status Records FoundNo Status Records FoundNo Status Records FoundNo Status Records FoundNo Status Records FoundNo Status Records FoundNo Status Records FoundNo Status Records FoundNo Status Records Found INFORMATION SOURCE (unrecogn ized section and content) DATE CREATED AUTHOR 08/08/2017 [facility] DATE CREATED AUTHOR AUTHOR'S ORGANIZ ATION 10/17/2019 [facility] DATE CREATED AUTHOR AUTHOR'S ORGANIZ ATION 05/05/2021 [facility] DATE CREATED AUTHOR AUTHOR'S ORGANIZ ATION 06/11/2022 [facility] DATE CREATED AUTHOR AUTHOR'S ORGANIZ ATION 07/03/2023 [facility] DATE CREATED AUTHOR AUTHOR'S ORGANIZ ATION 01/28/2024 [facility] DATE CREATED AUTHOR AUTHOR'S ORGANIZ ATION 02/23/2024 [facility] DATE CREATED AUTHOR AUTHOR'S ORGANIZ ATION 02/25/2024 [facility] DATE CREATED AUTHOR AUTHOR'S ORGANIZ ATION 03/18/2024 [facility] DATE CREATED AUTHOR AUTHOR'S ORGANIZ ATION 04/05/2024 [facility] EPIC Source Comments (unrecognize d section and content) In the event this informatio n is protected by the Federal Confidentiality of Alcohol and Drug Abuse Patient Records regulations: The Federal rules restrict any use of the information to criminally investigate or prosecute any alcohol or drug abuse patient.[facility] the event this information is protected by the Federal Confidentiality of Alcohol and Drug Abuse Patient Records regulations: The Federal rules restrict any use of the information to criminally investigate or prosecute any alcohol or drug abuse patient.[facility] the event this information is protected by the Federal Confidentiality of Alcohol and Drug Abuse Patient Records regulations: The Federal rules restrict any use of the information to criminally investigate or prosecute any alcohol or drug abuse patient.[facility] the event this information is protected by the Federal Confidentiality of Alcohol and Drug Abuse Patient Records regulations: The Federal rules restrict any use of the information to criminally investigate or prosecute any alcohol or drug abuse patient.[facility] the event this information is protected by the Federal Confidentiality of Alcohol and Drug Abuse Patient Records regulations: The Federal rules restrict any use of the information to criminally investigate or prosecute any alcohol or drug abuse patient.[facility] the event this information is protected by the Federal Confidentiality of Alcohol and Drug Abuse Patient Records regulations: The Federal rules restrict any use of the information to criminally investigate or prosecute any alcohol or drug abuse patient.[facility] the event this information is protected by the Federal Confidentiality of Alcohol and Drug Abuse Patient Records regulations: The Federal rules restrict any use of the information to criminally investigate or prosecute any alcohol or drug abuse patient.[facility] the event this information is protected by the Federal Confidentiality of Alcohol and Drug Abuse Patient Records regulations: The Federal rules restrict any use of the information to criminally investigate or prosecute any alcohol or drug abuse patient.[facility] the event this information is protected by the Federal Confidentiality of Alcohol and Drug Abuse Patient Records regulations: The Federal rules restrict any use of the information to criminally investigate or prosecute any alcohol or drug abuse patient.[facility] the event this information is protected by the Federal Confidentiality of Alcohol and Drug Abuse Patient Records regulations: The Federal rules restrict any use of the information to criminally investigate or prosecute any alcohol or drug abuse patient.[facility] the event this information is protected by the Federal Confidentiality of Alcohol and Drug Abuse Patient Records regulations: The Federal rules restrict any use of the information to criminally investigate or prosecute any alcohol or drug abuse patient.[facility] the event this information is protected by the Federal Confidentiality of Alcohol and Drug Abuse Patient Records regulations: The Federal rules restrict any use of the information to criminally investigate or prosecute any alcohol or drug abuse patient.[facility] the event this information is protected by the Federal Confidentiality of Alcohol and Drug Abuse Patient Records regulations: The Federal rules restrict any use of the information to criminally investigate or prosecute any alcohol or drug abuse patient.[facility] the event this information is protected by the Federal Confidentiality of Alcohol and Drug Abuse Patient Records regulations: The Federal rules restrict any use of the information to criminally investigate or prosecute any alcohol or drug abuse patient.[facility] the event this information is protected by the Federal Confidentiality of Alcohol and Drug Abuse Patient Records regulations: The Federal rules restrict any use of the information to criminally investigate or prosecute any alcohol or drug abuse patient.[facility] Campus[facility] the event this information is protected by the Federal Confidentiality of Alcohol and Drug Abuse Patient Records regulations: The Federal rules restrict any use of the information to criminally investigate or prosecute any alcohol or drug abuse patient.[facility] CampusIn the event this information is protected by the Federal Confidentiality of Alcohol and Drug Abuse Patient Records regulations: The Federal rules restrict any use of the information to criminally investigate or prosecute any alcohol or drug abuse patient.[facility] CampusIn the event this information is protected by the Federal Confidentiality of Alcohol and Drug Abuse Patient Records regulations: The Federal rules restrict any use of the information to criminally investigate or prosecute any alcohol or drug abuse patient.[facility] CampusIn the event this information is protected by the Federal Confidentiality of Alcohol and Drug Abuse Patient Records regulations: The Federal rules restrict any use of the information to criminally investigate or prosecute any alcohol or drug abuse patient.[facility] CampusIn the event this information is protected by the Federal Confidentiality of Alcohol and Drug Abuse Patient Records regulations: The Federal rules restrict any use of the information to criminally investigate or prosecute any alcohol or drug abuse patient.[facility] CampusIn the event this information is protected by the Federal Confidentiality of Alcohol and Drug Abuse Patient Records regulations: The Federal rules restrict any use of the information to criminally investigate or prosecute any alcohol or drug abuse patient.[facility] CampusIn the event this information is protected by the Federal Confidentiality of Alcohol and Drug Abuse Patient Records regulations: The Federal rules restrict any use of the information to criminally investigate or prosecute any alcohol or drug abuse patient.[facility] CampusIn the event this information is protected by the Federal Confidentiality of Alcohol and Drug Abuse Patient Records regulations: The Federal rules restrict any use of the information to criminally investigate or prosecute any alcohol or drug abuse patient.[facility] CampusIn the event this information is protected by the Federal Confidentiality of Alcohol and Drug Abuse Patient Records regulations: The Federal rules restrict any use of the information to criminally investigate or prosecute any alcohol or drug abuse patient.[facility] CampusIn the event this information is protected by the Federal Confidentiality of Alcohol and Drug Abuse Patient Records regulations: The Federal rules restrict any use of the information to criminally investigate or prosecute any alcohol or drug abuse patient.[facility] CampusIn the event this information is protected by the Federal Confidentiality of Alcohol and Drug Abuse Patient Records regulations: The Federal rules restrict any use of the information to criminally investigate or prosecute any alcohol or drug abuse patient.[facility] CampusIn the event this information is protected by the Federal Confidentiality of Alcohol and Drug Abuse Patient Records regulations: The Federal rules restrict any use of the information to criminally investigate or prosecute any alcohol or drug abuse patient.[facility] CampusIn the event this information is protected by the Federal Confidentiality of Alcohol and Drug Abuse Patient Records regulations: The Federal rules restrict any use of the information to criminally investigate or prosecute any alcohol or drug abuse patient.[facility] CampusIn the event this information is protected by the Federal Confidentiality of Alcohol and Drug Abuse Patient Records regulations: The Federal rules restrict any use of the information to criminally investigate or prosecute any alcohol or drug abuse patient.[facility] CampusIn the event this information is protected by the Federal Confidentiality of Alcohol and Drug Abuse Patient Records regulations: The Federal rules restrict any use of the information to criminally investigate or prosecute any alcohol or drug abuse patient.[facility] CampusIn the event this information is protected by the Federal Confidentiality of Alcohol and Drug Abuse Patient Records regulations: The Federal rules restrict any use of the information to criminally investigate or prosecute any alcohol or drug abuse patient.[facility] CampusIn the event this information is protected by the Federal Confidentiality of Alcohol and Drug Abuse Patient Records regulations: The Federal rules restrict any use of the information to criminally investigate or prosecute any alcohol or drug abuse patient.[facility] CampusIn the event this information is protected by the Federal Confidentiality of Alcohol and Drug Abuse Patient Records regulations: The Federal rules restrict any use of the information to criminally investigate or prosecute any alcohol or drug abuse patient.[facility] CampusIn the event this information is protected by the Federal Confidentiality of Alcohol and Drug Abuse Patient Records regulations: The Federal rules restrict any use of the information to criminally investigate or prosecute any alcohol or drug abuse patient.[facility] CampusIn the event this information is protected by the Federal Confidentiality of Alcohol and Drug Abuse Patient Records regulations: The Federal rules restrict any use of the information to criminally investigate or prosecute any alcohol or drug abuse patient.[facility] CampusIn the event this information is protected by the Federal Confidentiality of Alcohol and Drug Abuse Patient Records regulations: The Federal rules restrict any use of the information to criminally investigate or prosecute any alcohol or drug abuse patient.[facility] CampusIn the event this information is protected by the Federal Confidentiality of Alcohol and Drug Abuse Patient Records regulations: The Federal rules restrict any use of the information to criminally investigate or prosecute any alcohol or drug abuse patient.[facility] CampusIn the event this information is protected by the Federal Confidentiality of Alcohol and Drug Abuse Patient Records regulations: The Federal rules restrict any use of the information to criminally investigate or prosecute any alcohol or drug abuse patient.[facility] CampusIn the event this information is protected by the Federal Confidentiality of Alcohol and Drug Abuse Patient Records regulations: The Federal rules restrict any use of the information to criminally investigate or prosecute any alcohol or drug abuse patient.[facility] CampusIn the event this information is protected by the Federal Confidentiality of Alcohol and Drug Abuse Patient Records regulations: The Federal rules restrict any use of the information to criminally investigate or prosecute any alcohol or drug abuse patient.[facility] CampusIn the event this information is protected by the Federal Confidentiality of Alcohol and Drug Abuse Patient Records regulations: The Federal rules restrict any use of the information to criminally investigate or prosecute any alcohol or drug abuse patient.[facility] CampusIn the event this information is protected by the Federal Confidentiality of Alcohol and Drug Abuse Patient Records regulations: The Federal rules restrict any use of the information to criminally investigate or prosecute any alcohol or drug abuse patient.[facility] CampusIn the event this information is protected by the Federal Confidentiality of Alcohol and Drug Abuse Patient Records regulations: The Federal rules restrict any use of the information to criminally investigate or prosecute any alcohol or drug abuse patient.[facility] CampusIn the event this information is protected by the Federal Confidentiality of Alcohol and Drug Abuse Patient Records regulations: The Federal rules restrict any use of the information to criminally investigate or prosecute any alcohol or drug abuse patient.[facility] CampusIn the event this information is protected by the Federal Confidentiality of Alcohol and Drug Abuse Patient Records regulations: The Federal rules restrict any use of the information to criminally investigate or prosecute any alcohol or drug abuse patient.[facility] CampusIn the event this information is protected by the Federal Confidentiality of Alcohol and Drug Abuse Patient Records regulations: The Federal rules restrict any use of the information to criminally investigate or prosecute any alcohol or drug abuse patient.[facility] CampusIn the event this information is protected by the Federal Confidentiality of Alcohol and Drug Abuse Patient Records regulations: The Federal rules restrict any use of the information to criminally investigate or prosecute any alcohol or drug abuse patient.[facility] CampusIn the event this information is protected by the Federal Confidentiality of Alcohol and Drug Abuse Patient Records regulations: The Federal rules restrict any use of the information to criminally investigate or prosecute any alcohol or drug abuse patient.[facility] CampusIn the event this information is protected by the Federal Confidentiality of Alcohol and Drug Abuse Patient Records regulations: The Federal rules restrict any use of the information to criminally investigate or prosecute any alcohol or drug abuse patient.[facility] CampusIn the event this information is protected by the Federal Confidentiality of Alcohol and Drug Abuse Patient Records regulations: The Federal rules restrict any use of the information to criminally investigate or prosecute any alcohol or drug abuse patient.[facility] CampusIn the event this information is protected by the Federal Confidentiality of Alcohol and Drug Abuse Patient Records regulations: The Federal rules restrict any use of the information to criminally investigate or prosecute any alcohol or drug abuse patient.[facility] CampusIn the event this information is protected by the Federal Confidentiality of Alcohol and Drug Abuse Patient Records regulations: The Federal rules restrict any use of the information to criminally investigate or prosecute any alcohol or drug abuse patient.[facility] CampusIn the event this information is protected by the Federal Confidentiality of Alcohol and Drug Abuse Patient Records regulations: The Federal rules restrict any use of the information to criminally investigate or prosecute any alcohol or drug abuse patient.[facility] CampusIn the event this information is protected by the Federal Confidentiality of Alcohol and Drug Abuse Patient Records regulations: The Federal rules restrict any use of the information to criminally investigate or prosecute any alcohol or drug abuse patient.[facility] Reason for Visit (unrecogniz ed section and content) Reason Comments Follow Up Specialty Diagnoses / Procedures Referred By Gene yu Referred To Contact Urology / UROLOGY Diagnoses Unspecified urethral stricture, male, meatal UDS Procedures COMPLEX UROFLOMETRY URODYNAMICS MAIN Louie Salomon MD [address] [place] [address] [facility] [address] [place] [address] Referral ID Status Reason Start Date Expiration Date Visits Re quested Visits Authorized [id number] Closed 08/31/2023 11/29/2023 2 1 Reason Comments Patient Question Reason Comments Radiology XR Reason Comments Post Op Reason Comments Post Op Reason Comments request for cath supplies Reason Comments Orders Reason Comments Appointment Reason Comments Knee Pain Reason Comments Cystoscopy-1 Patient Education Specialty Diagnoses / Procedures Referred By Gene yu Referred To Contact Urology / UROLOGY Diagnoses Unspecified urethral stricture, male, unspecified site Cystoscopy Procedures CYSTOURETHROSCOPY CYSTOSCOPY Nithya Horner PA-C [address] [place] [address] [place] [address] [place] [address] Referral ID Status Reason Start Date Expiration Date Visits Re quested Visits Authorized [id number] Closed 05/03/2022 02/11/2023 1 1 Reason Comments New Pain Reason Comments Radiology CT Specialty Diagnoses / Procedures Referred By Gene yu Referred To Contact CT IMAGING Diagnoses Nontraumatic complete tear of right rotator cuff Rotator cuff arthropathy of right shoulder Arthritis of shoulder Procedures CT SHOULDER WO IVCON RT CT SCAN OF ARM Kve Ferrell MD [address] [place] [address] Ct Imaging Referral ID Status Reason Start Date Expiration Date V isits Requested Visits Authorized [id number] Closed Auto-Generate d Referral 12/21/2020 01/20/2022 1 1 Reason Comments Refill Request Reason Comments Education Of Patient/family Cystoscopy-1 Specialty Diagnoses / Procedures Referred By Gene yu Referred To Contact Urology / UROLOGY Diagnoses Stricture of urethral meatus in male, unspecified stricture type CYSTOSCOPY Procedures CYSTOURETHROSCOPY CYSTOSCOPY Milo Ramos MD [address] [place] [address] [place] [address] [place] [address] Referral ID Status Reason Start Date Expiration Date Visits Re quested Visits Authorized [id number] Closed 05/22/2023 02/12/2024 1 1 Reason Comments Medication Question Reason Comments duncan cath removal; [facility] strait cath colle ction Reason Comments Patient Update Reason Comments Returning Patient's Call Reason Onset Date Comments Refill Request 08/17/2023 Reason Comments Radiology XR Specialty Diagnoses / Procedures Referred By Gene yu Referred To Contact XR IMAGING Diagnoses Left shoulder pain, unspecified chronicity Procedures XR SHOULDER ORTHO 4V AP/TRUE AP/LAT/OUTLET LEFT RADEX SHOULDER COMPLETE MINIMUM 2 VIEWS Nehemiah Gilbert PA-C [address] [place] [address] [place] [address] Referral ID Status Reason Start Date Expiration Date V isits Requested Visits Authorized [id number] Closed Auto-Generat ed Referral Patient Cleared - Admin/Chairm an/Director advise to proceed or did not respond 06/22/2022 07/06/2023 1 1 Specialty Diagnoses / Procedures Referred By Gene t Referred To Contact XR IMAGING Diagnoses S/P reverse total shoulder arthroplasty, right Procedures XR SHOULDER GENERAL 3V OR MORE AP/TRUE AP/OTHER RIGHT RADEX SHOULDER COMPLETE MINIMUM 2 VIEWS Nehemiah Gilbert PA-C [address] [facility] [place] [address] [place] [address] Referral ID Status Reason Start Date Expiration Date V isits Requested Visits Authorized [id number] Closed Auto-Generate d Referral 11/07/2021 12/04/2022 1 1 Specialty Diagnoses / Procedures Referred By Gene t Referred To Contact XR IMAGING Diagnoses Right shoulder pain, unspecified chronicity Procedures XR SHOULDER ORTHO 4V AP/TRUE AP/LAT/OUTLET RT X-RAY SHOULDER COMPLET MIN 2 VIEWS Nehemiah Gilbert PA-C [address] [facility] [place] [address] [place] [address] Referral ID Status Reason Start Date Expiration Date V isits Requested Visits Authorized [id number] Closed Auto-Generate d Referral 12/13/2020 01/12/2022 1 1 Reason Comments Results Reason Comments Established Patient Follow up OAB Reason Comments Excessive Sweating Pt states he feels hot inside and sweats a lot mostly on his truck x 2 months Back Pain Constipation Reason Comments Medicare Annual Wellness Visit Subsequen t Reason Comments 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 Fax Received - [facility] er Reason Comments Hypertension Results Labs and ct chest Sinusitis Care Teams (unrecognized sec tion and content) Senior Design Engineer Relationship Specialty Start Date End Date Stanton Velasco II [address] [facility] [address] [place] [address] PCP - General Internal Medicine 04/01/21 Hossein Tran [address] [place] [address] Referring Ophthalmology 08/28/16 David Carrillo [address] [place] [address] Referring Urology 10/06/16 Senior Design Engineer Relationship Specialty Start Date End Date Stanton Velasco II [address] [facility] [address] [place] [address] PCP - General Internal Medicine 04/01/21 Hossein Tran [address] [place] [address] Referring Ophthalmology 08/28/16 David Carrillo [address] [place] [address] Referring Urology 10/06/16 Senior Design Engineer Relationship Specialty Start Date End Date Stanton Velasco II [address] [place] [address] [place] [address] PCP - General Internal Medicine 04/01/21 Hossein Tran [address] [place] [address] Referring Ophthalmology 08/28/16 David Carrillo P [address] [place] [address] Referring Urology 10/06/16 Senior Design Engineer Relationship Specialty Start Date End Date Rod Stanton B II [address] [place] [address] [place] [address] PCP - General Internal Medicine 04/01/21 Hossein Tran [address] [place] [address] Referring Ophthalmology 08/28/16 David Carrillo P [address] [place] [address] Referring Urology 10/06/16 Team Status: Inactive Member Role Status Dates Stanton Velasco II MD Attending Provider Active Senior Design Engineer Relationship Specialty Start Date End Date Stanton Velasco II [address] [place] [address] [place] [address] PCP - General Internal Medicine 04/01/21 Hossein Tran [address] [place] [address] Referring Ophthalmology 08/28/16 David Carrillo P [address] [place] [address] Referring Urology 10/06/16 Senior Design Engineer Relationship Specialty Start Date End Date Stanton Velasco II [address] [facility] [address] [place] [address] PCP - General Internal Medicine 04/01/21 Hossein Tran [address] [place] [address] Referring Ophthalmology 08/28/16 David Carrillo [address] [place] [address] Referring Urology 10/06/16 Senior Design Engineer Relationship Specialty Start Date End Date Stanton Velasco II [address] [facility] [address] [place] [address] PCP - General Internal Medicine 04/01/21 Hossein Tran [address] [place] [address] Referring Ophthalmology 08/28/16 David Carrillo [address] [place] [address] Referring Urology 10/06/16 Senior Design Engineer Relationship Specialty Start Date End Date Stanton Velasco II [address] [facility] [address] [place] [address] PCP - General Internal Medicine 04/01/21 Hossein Tran [address] [place] [address] Referring Ophthalmology 08/28/16 David Carrillo P [address] [place] [address] Referring Urology 10/06/16 Senior Design Engineer Relationship Specialty Start Date End Date Stanton Velasco II [address] [facility] [address] [place] [address] PCP - General Internal Medicine 04/01/21 Hossein Tran [address] [place] [address] Referring Ophthalmology 08/28/16 David Carrillo [address] [place] [address] Referring Urology 10/06/16 Senior Design Engineer Relationship Specialty Start Date End Date Velasco Stanton Kerry II [address] [facility] [address] [place] [address] PCP - General Internal Medicine 04/01/21 Hossein Tran [address] [place] [address] Referring Ophthalmology 08/28/16 David Carrillo [address] [place] [address] Referring Urology 10/06/16 Senior Design Engineer Relationship Specialty Start Date End Date Watson Centeno [address] [place] [address] PCP - General Family Medicine 08/28/16 03/31/21 Hossein Tran [address] [place] [address] Referring Ophthalmology 08/28/16 David Carrillo [address] [place] [address] Referring Urology 10/06/16 Senior Design Engineer Relationship Specialty Start Date End Date Watson Centeno [address] [place] [address] PCP - General Family Medicine 08/28/16 03/31/21 Hossein Tran [address] [place] [phone] Referring Ophthalmology 08/28/16 David Carrillo [address] [place] [address] Referring Urology 10/06/16 Senior Design Engineer Relationship Specialty Start Date End Date Stanton Velasco II, MD [address] [place] [address] [place] [id number] PCP - General Internal Medicine 04/01/21 Hossein Tran DO [address] [place] [address] Referring Ophthalmology 08/28/16 David Carrillo [address] [place] [address] Referring Urology 10/06/16 Senior Design Engineer Relationship Specialty Start Date End Date Stanton Velasco II, MD [address] [facility] [address] [place] [address] PCP - General Internal Medicine 04/01/21 Hossein Tran DO [address] [place] [address] Referring Ophthalmology 08/28/16 David Carrillo MD [address] [place] [address] Referring Urology 10/06/16 Senior Design Engineer Relationship Specialty Start Date End Date Stanton Velasco II, MD [address] [facility] [address] [place] [address] PCP - General Internal Medicine 04/01/21 Hossein Tran, [address] [place] [address] Referring Ophthalmology 08/28/16 David Carrillo MD [address] [place] [address] Referring Urology 10/06/16 Senior Design Engineer Relationship Specialty Start Date End Date Stanton Velasco II, MD [address] [facility] [address] [place] [address] PCP - General Internal Medicine 04/01/21 Hossein Tran, [address] [place] [address] Referring Ophthalmology 08/28/16 David Carrillo MD [address] [place] [phone] Referring Urology 10/06/16 Senior Design Engineer Relationship Specialty Start Date End Date Stanton Velasco II, MD [address] [facility] [address] [place] [address] PCP - General Internal Medicine 04/01/21 Hossein Tran DO [address] [place] [address] Referring Ophthalmology 08/28/16 David Carrillo MD [address] [place] [address] Referring Urology 10/06/16 Senior Design Engineer Relationship Specialty Start Date End Date Stanton Velasco II, MD [address] [place] [address] [place] [address] PCP - General Internal Medicine 04/01/21 Hossein Tran DO [address] [place] [address] Referring Ophthalmology 08/28/16 David Carrillo MD [address] [place] [address] Referring Urology 10/06/16 Senior Design Engineer Relationship Specialty Start Date End Date Stanton Velasco II, MD [address] [facility] [address] [place] [address] PCP - General Internal Medicine 04/01/21 Hossein Tran, [address] [place] [address] Referring Ophthalmology 08/28/16 David Carrillo MD [address] [place] [phone] Referring Urology 10/06/16 Senior Design Engineer Relationship Specialty Start Date End Date Stanton Velasco II, MD [address] [place] [address] [place] [address] PCP - General Internal Medicine 04/01/21 Hossein Tran DO [address] [place] [address] Referring Ophthalmology 08/28/16 David Carrillo MD [address] [place] [address] Referring Urology 10/06/16 Senior Design Engineer Relationship Specialty Start Date End Date Stanton Velasco II, MD [address] [facility] [address] [place] [address] PCP - General Internal Medicine 04/01/21 Hossein Tran DO [address] [place] [address] Referring Ophthalmology 08/28/16 David Carrillo MD [address] [place] [address] Referring Urology 10/06/16 Senior Design Engineer Relationship Specialty Start Date End Date Stanton Velasco II, MD [address] [facility] [address] [place] [address] PCP - General Internal Medicine 04/01/21 Hossein Tran DO [address] [place] [address] Referring Ophthalmology 08/28/16 David Carrillo MD [address] [place] [address] Referring Urology 10/06/16 Senior Design Engineer Relationship Specialty Start Date End Date Stanton Velasco II, MD [address] [place] [address] [place] [address] PCP - General Internal Medicine 04/01/21 Hossein Tran, [address] [place] [address] Referring Ophthalmology 08/28/16 David Carrillo MD [address] [place] [phone] Referring Urology 10/06/16 Senior Design Engineer Relationship Specialty Start Date End Date Stanton Velasco II, MD [address] [facility] [address] [place] [address] PCP - General Internal Medicine 04/01/21 Hossein Tran, [address] [place] [phone] Referring Ophthalmology 08/28/16 David Carrillo MD [address] [place] [address] Referring Urology 10/06/16 Senior Design Engineer Relationship Specialty Start Date End Date Stanton Velasco II, MD [address] [facility] [address] [place] [address] PCP - General Internal Medicine 04/01/21 Hossein Tran DO [address] [place] [address] Referring Ophthalmology 08/28/16 David Carrillo MD [address] [place] [address] Referring Urology 10/06/16 Senior Design Engineer Relationship Specialty Start Date End Date Stanton Velasco II, MD [address] [place] [address] [place], [place] [id number] PCP - General Internal Medicine 04/01/21 Hossein Tran DO [address] [place] [address] Referring Ophthalmology 08/28/16 David Carrillo MD [address] [place] [address] Referring Urology 10/06/16 Senior Design Engineer Relationship Specialty Start Date End Date Stanton Velasco II, MD [address] [facility] [address] [place] [address] PCP - General Internal Medicine 04/01/21 Hossein Tran, [address] [place] [address] Referring Ophthalmology 08/28/16 David Carrillo MD [address] [place] [address] Referring Urology 10/06/16 Senior Design Engineer Relationship Specialty Start Date End Date Stanton Velasco II, MD [address] [place] [address] [place] [address] PCP - General Internal Medicine 04/01/21 Hossein Tran DO [address] [place] [address] Referring Ophthalmology 08/28/16 David Carrillo MD [address] [place] [address] Referring Urology 10/06/16 Senior Design Engineer Relationship Specialty Start Date End Date Stanton Velasco II, MD [address] [facility] [place] [address] [place] [address] PCP - General Internal Medicine 04/01/21 Hossein Tran DO [address] [place] [address] Referring Ophthalmology 08/28/16 David Carrillo MD [address] [place] [address] Referring Urology 10/06/16 Senior Design Engineer Relationship Specialty Start Date End Date Watson Centeno [address] [place] [address] PCP - General Family Medicine 08/28/16 03/31/21 Hossein Tran DO [address] [place] [address] Referring Ophthalmology 08/28/16 David Carrillo MD [address] [place] [address] Referring Urology 10/06/16 Senior Design Engineer Relationship Specialty Start Date End Date Stanton Velasco II, MD [address] [place] [address] PCP - General Internal Medicine 04/01/21 Hossein Tran, [address] [place] [address] Referring Ophthalmology 08/28/16 David Carrillo MD [address] [place] [address] Referring Urology 10/06/16 Senior Design Engineer Relationship Specialty Start Date End Date Harry Watson Alonzo [address] [place] [phone] PCP - General Family Medicine 08/28/16 03/31/21 Hossein Tran, [address] [place] [address] Referring Ophthalmology 08/28/16 David Carrillo MD [address] [place] [address] Referring Urology 10/06/16 Senior Design Engineer Relationship Specialty Start Date End Date Ganesh [place] Alonzo [address] [place] [address] PCP - General Family Medicine 08/28/16 03/31/21 Hossein Tran DO [address] [place] [address] Referring Ophthalmology 08/28/16 David Carrillo MD [address] [place] [address] Referring Urology 10/06/16 Senior Design Engineer Relationship Specialty Start Date End Date Stanton Velasco II, MD [address] [facility] [address] [place] [address] PCP - General Internal Medicine 04/01/21 Hossein Tran, [address] [place] [address] Referring Ophthalmology 08/28/16 David Carrillo MD [address] [place] [address] Referring Urology 10/06/16 Senior Design Engineer Relationship Specialty Start Date End Date Stanton Velasco II, MD [address] [facility] [address] [place] [address] PCP - General Internal Medicine 04/01/21 Hossein Tran, [address] [place] [address] Referring Ophthalmology 08/28/16 David Carrillo MD [address] [place] [address] Referring Urology 10/06/16 Senior Design Engineer Relationship Specialty Start Date End Date Stanton Velasco MD [address] [facility] [address] [place], [place] [id number] PCP - Devoted 02/12/21 Stanton Velasco MD [address] [place] [address] [place] [address] PCP - General Internal Medicine 08/18/22 Senior Design Engineer Relationship Specialty Start Date End Date Stanton Velasco II, MD [address] [place] [address] [place] [address] PCP - General Internal Medicine 04/01/21 Hossein Tran DO [address] [place] [address] Referring Ophthalmology 08/28/16 David Carrillo MD [address] [place] [address] Referring Urology 10/06/16 Senior Design Engineer Relationship Specialty Start Date End Date Stanton Velasco MD [address] [place] [address] [place] [address] PCP - Devoted 02/12/21 Stanton Velasco MD [address] [place] [address] [place] [address] PCP - General Internal Medicine 08/18/22 Senior Design Engineer Relationship Specialty Start Date End Date Stanton Velasco MD [address] [place] [address] [place] [address] PCP - Devoted 02/12/21 Stanton Velasco MD [address] [place] [address] [place] [address] PCP - General Internal Medicine 08/18/22 Senior Design Engineer Relationship Specialty Start Date End Date Stanton Velasco MD [address] [place] [address] [place] [address] PCP - General Internal Medicine 08/18/22 Senior Design Engineer Relationship Specialty Start Date End Date Stanton Velasco MD [address] [facility] [address] [place] [address] PCP - General Internal Medicine 08/18/22 Senior Design Engineer Relationship Specialty Start Date End Date Stanton Velasco II, MD [address] [facility] [address] [place] [address] PCP - General Internal Medicine 04/01/21 Hossein Tran DO [address] [place] [address] Referring Ophthalmology 08/28/16 David Carrillo MD [address] [place] [address] Referring Urology 10/06/16 Senior Design Engineer Relationship Specialty Start Date End Date Stanton Velasco II, MD [address] [facility] [address] [place] [address] PCP - General Internal Medicine 04/01/21 Hossein Tran, [address] [place] [address] Referring Ophthalmology 08/28/16 David Carrillo MD [address] [place] [phone] Referring Urology 10/06/16 Senior Design Engineer Relationship Specialty Start Date End Date Stanton Velasco MD [address] [place] [address] [place] [address] PCP - General Internal Medicine 08/18/22 Senior Design Engineer Relationship Specialty Start Date End Date Stanton Velasco MD [address] [place] [address] [place] [address] PCP - General Internal Medicine 08/18/22 Emelyn Hall RN [facility] 03/21/24 Senior Design Engineer Relationship Specialty Start Date End Date Stanton Velasco MD [address] [facility] [address] [place] [address] PCP - General Internal Medicine 08/18/22 Emelyn Hall RN [facility] 03/21/24 Goals (unrecognized section and content) Goals may be documented in a n alternate section FOR RECORDS PERTAINING TO PATIENTS WHO ARE OR HAVE BEEN ENROLLED IN A CHEMICAL DEPENDENCY/SUBSTANCEABUSE PROGRAM, SOME INFORMATION MAY BE OMITTED. This clinical summary was aggregated from multiple sources. Caution should be exercised in using it in the provision of clinical care. This summary normalizes information from multiple sources, and as a consequence, information in this document may materially change the coding, format and clinical context of patient data. In addition, data may be omitted in some cases. CLINICAL DECISIONS SHOULD BE BASED ON THE PRIMARY CLINICAL RECORDS. [facility]. provides no warranty or guarantee of the accuracy or completeness of information in this document.
--- NOTE | 2024-04-05 15:30 | XR_ITS ---
The [address] [address] Patient Name: CHELSEA PATEL MRN: [id number] date: 1950 Sex: M Assigned Patient Location: ER Current Patient Location: ER Accession/Order Number: [id number] Exam Date: 04/05/2024 16:09 Report Date: 04/05/2024 16:13 At the request of: TRACIE TELLEZ Procedure: XR abdomen min 2V XR abdomen min 2V 04/05/2024 4:04 PM SIGNS AND SYMPTOMS: Constipation, right and left lower abdominal pain PROTOCOL: Frontal radiographs of the abdomen and pelvis COMPARISON: 03/31/2024 FINDINGS: Stones are noted in the gallbladder lumen within the right upper quadrant similar to the prior exam. There is partial visualization of prior sternotomy and posterior fusion in the lower lumbar spine. There are a few air-fluid levels on upright view similar to the prior exam possibly relating to ileus. There is no radiographic evidence of free air. There is a small amount of stool throughout the colon. Degenerative changes are present in the lumbar spine, sacroiliac joints, and hips. XR/XR abdomen min 2V IMPRESSION: No bowel obstruction or free air. There are a few air-fluid levels on upright view similar to the prior exam possibly relating to ileus. Gallstones are redemonstrated. Impression dictated by: Сергей Luis M.D.04/05/2024 4:13 PM Dictation Location[facility] Electronically authenticated by: [id number] Y Date: 04/05/2024 16:13
--- NOTE | 2024-04-05 17:00 | ED.ABDPAIN1 ---
HPI - Abdominal Pain General Chief Complaint: Abdominal Pain Stated Complaint: constipation Time Seen by Provider: 04/05/24 14:40 Source: patient Mode of arrival: walk-in Limitations: no limitations History of Present Illness HPI narrative: cc = constipation Pt was evaluated last week in our ED for same complaints, had chest and abd xrays, enema attempted to be given, could not pass stool and was discharged home with [facility] after declining admission - but was not able to pass stool at home. He continued to eat normally and did not adjust his diet. He now returns with inability to do anything besides pass liquid stool. He admits to some mild left sided abdominal pain but no nausea or vomiting. No blood in urine or stool. he has a small bladder and self-caths three times a day. he admits to passing a large amount of urine the last 24 hours, but his sister told me that he doesn't drink enough water . Related Data Home Medications ?Medication ?Instructions ?Recorded ?Confirmed linaclotide 290 mcg capsule 290 mcg PO DAILY 04/05/24 04/05/24 (Linzess) lisinopril 20 mg tablet 20 mg PO DAILY 04/05/24 04/05/24 loratadine 10 mg tablet (Allergy 10 mg PO DAILY 04/05/24 04/05/24 Relief (loratadine)) Previous Rx's ?Medication ?Instructions ?Recorded ondansetron 4 mg disintegrating 4 mg PO Q6H PRN nausea and 03/31/24 tablet vomiting #12 tabs Allergies Allergy/AdvReac Type Severity Reaction Status Date / Time No Known Drug Allergies Allergy Verified 04/05/24 14:36 PFSH PFSH Social History Little interest or pleasure in doing things: not at all Feeling down, depressed, or hopeless: not at all Exam Narrative Exam Narrative: Nurses notes and vital signs reviewed and patient is not hypoxic. afebrile General: Well-appearing and in no apparent distress. Skin: Warm, dry, no pallor noted. Eye: Pupils are equal, round and EOMI. No scleral icterus. Ears, Nose, Mouth, and Throat: Oral mucosa is moist Cardiovascular: Regular Rate and Rhythm without murmur, gallop or rub. Respiratory: No accessory muscle use or respiratory distress. Lungs are clear to auscultation, no wheezing, rales or rhonchi GI: Abdomen is soft, non-distended. Normal bowel sounds. No masses appreciated. Minimal left lower quadrant tenderness to palpation. No rebound, guarding, or rigidity noted. Neurological: A&O x4. No cranial nerve dysfunction observed. No truncal ataxia. Moves all extremities. Sensation intact. Psychiatric: Cooperative and interactive. Normal mood and affect. Constitutional Vital Signs, click to edit/add: Last Vital Signs Temp 98.3 F 04/05/24 14:38 Pulse 64 04/05/24 14:38 Resp 20 04/05/24 14:38 BP 145/78 H 04/05/24 14:38 Pulse Ox 97 04/05/24 14:38 O2 Del Method Room Air 04/05/24 14:38 Course Vital Signs Vital signs: Vital Signs Temperature 98.3 F 04/05/24 14:38 Pulse Rate 64 04/05/24 14:38 Respiratory Rate 20 04/05/24 14:38 Blood Pressure 145/78 H 04/05/24 14:38 Pulse Oximetry 97 04/05/24 14:38 Oxygen Delivery Method Room Air 04/05/24 14:38 Temperature 98.3 F 04/05/24 14:38 Pulse Rate 64 04/05/24 14:38 Respiratory Rate 04/05/24 14:38 Blood Pressure 145/78 H 04/05/24 14:38 Pulse Oximetry 97 04/05/24 14:38 Oxygen Delivery Method Room Air 04/05/24 14:38 MDM - Abdominal Pain MDM Narrative Medical decision making narrative: After receiving an enema, the patient was able to pass a small amount of stool. He still had the sensation that there was stool in the rectum. It could not be felt but was noted on the follow-up x-rays of the abdomen that were obtained -no bowel obstruction or free air. Patient was therefore ordered to receive a milk of molasses enema to assist with dissolution and passage of the fecal impaction. It was followed by soapsuds enema. he passed a significant amount of both formed and soft stool along with a lot of liquid. By the end, he was also passing a small amount of blood tinged fluid, and I explained to him why we did not want to continue to be aggressive with enemas. Afterward he was discharged home with recommendation to maintain a clear liquid diet for the remainder of the day/until he went to bed tonight and then adhere to a soft, bland food diet for the following next 24 hours. We also discussed the use of MiraLAX a couple of times a week just to prevent this from occurring again. Discussed reasons to return to the ED. Imaging Data Abdominal x-ray: Radiologist's impression: ITS Impressions Abdomen X-Ray 04/05/24 15:30 IMPRESSION: No bowel obstruction or free air. There are a few air-fluid levels on upright view similar to the prior exam possibly relating to ileus. Gallstones are redemonstrated. Impression dictated by: Сергей Luis M.D.04/05/2024 4:13 PM Dictation Location: [place] [address] Electronically authenticated by: [id number] Y Date: 04/05/2024 16:13 Discharge Plan Discharge Chief Complaint: Abdominal Pain Clinical Impression: Constipation Patient Disposition: Home, Self-Care Time of Disposition Decision: 18:05 Prescriptions / Home Meds: No Action ondansetron 4 mg tablet,disintegrating 4 mg PO Q6H PRN (Reason: nausea and vomiting) Qty: 12 0RF lisinopril 20 mg tablet 20 mg PO DAILY loratadine [Allergy Relief (loratadine)] 10 mg tablet 10 mg PO DAILY Linzess 290 mcg capsule 290 mcg PO DAILY Print Language: Mongolian Instructions: Constipation (ED) Referrals: JAMES SEQUEIRA [Primary Care Provider] - 1 week
== END 2024-04-05 18:20 | disposition home or self-care (01) ==
PROVIDERS: Emergency Provider Emergency Medicine; PCP Internal Medicine
DX: K59.00 Constipation, unspecified (principal); R10.32 Left lower quadrant pain; K80.20 Calculus of gallbladder without cholecystitis without obstruction
CPT/HCPCS: 74019; 99283

== ENCOUNTER 2024-06-05 08:42 | Outpatient (OUT) | payer MEDICARE, SELFPAY ==
--- NOTE | 2024-06-05 09:00 | CA_ITS ---
Patient Name: CHELSEA PATEL MR#: [id number] : 1950 Exam Date: 06/05/2024 Ordering Doctor: DR OCTAVIO MCMILLAN M.D. ECHOCARDIOGRAM REPORT PROCEDURE: CA ECHO DOPPLER COMPLETE INDICATIONS: Nonrheumatic mitral valve regurgitation, CABG, hypertension COMPARISON: None. DESCRIPTION: COMPLETE ECHOCARDIOGRAM Real-time transthoracic echocardiography with 2D, M-mode, spectral and color flow Doppler performed. QUALITY: Technical quality was good. LEFT VENTRICLE: Normal chamber size. Thickened septal wall. Normal systolic function. LV EF: Normal left ventricular ejection fraction, (>55%). DIASTOLIC: Diastolic function is indeterminate. ATRIAL SEPTUM: LEFT ATRIUM: Mild dilatation. RIGHT ATRIUM: Normal chamber size. RIGHT VENTRICLE: Normal chamber size. Normal right ventricular systolic function. TRICUSPID VALVE: Normal mobility and thickness. No stenosis with trivial regurgitation. MITRAL VALVE: Normal mobility and thickness. No evidence of mitral valve stenosis. There is no mitral annular calcification. Trivial regurgitation. AORTIC VALVE: Normal trileaflet appearance. Mildly calcified aortic valve. Normal leaflet mobility. No evidence of aortic valve stenosis. No aortic regurgitation. AORTIC ROOT: Normal diameter and appearance. PULMONIC VALVE: Normal thickness and mobility. No stenosis. No regurgitation. PERICARDIUM: No evidence of pericardial effusion. IVC: Not well visualized. PLEURA: CONCLUSION: 1. Normal left ventricular size and systolic function. LVEF is estimated at 55 to 60%. 2. Normal right ventricular size and systolic function. 3. Mild left atrial dilatation. 4. Trivial mitral regurgitation. 5. No significant valvular dysfunction. Adult Echocardiography Procedure Report Left Ventricle LVEDD (3.7 - 5.6 cm): 5.15 cm LVESD (2.2 - 4.0 cm): 3.73 cm LVIVS thickness (0.6 - 1.2 cm): 1.07 cm LVPW thickness (0.5 - 1.0 cm): 1.03 cm e': 0.16 m/s E - e': 3.38 LVOT Max Gradient: 2.48 mm[Hg] LVOT Area (cm2): 0.79 m/s Peak Velocity (LVOT): 0.79 m/s Mean Velocity (LVOT): 0.54 m/s LVOT Diameter 2.39 cm Left Atrium LA Volume Index (2D A2C): 37.48 ml/m2 Left Atrium Systolic Dimension: 4.75 cm Mitral Valve MV E to A Ratio: 0.67 Mitral Valve A-Wave Peak Velocity: 0.79 m/s Mitral Valve E-Wave Peak Velocity: 0.53 m/s Right Ventricle Aorta AO Root Diam: 3.39 cm Aortic Valve AoV Area (Peak Gallo): 2.41 cm2, 2.57 cm2 AoV Area (VTI): 2.24 cm2, 3.51 cm2 Peak Velocity(Antegrade Flow): 1.38 m/s, 1.47 m/s Peak Gradient(Antegrade Flow): 7.61 mm[Hg], 8.62 mm[Hg] Mean Velocity(Antegrade Flow): 0.86 m/s, 1.01 m/s Mean Gradient(Antegrade Flow): 3.56 mm[Hg], 4.68 mm[Hg] Velocity Time Integral: 23.66 cm, 37.15 cm Tricuspid Valve Pulmonic Valve Peak Gradient: 3.43 mm[Hg], 6.66 mm[Hg] Right Atrium Right Atrium Systolic Pressure: 48.85 ml, 48.85 ml Dictated by: Alexis Diaz M.D. on 06/06/2024 at 09:40 Approved by: Alexis Diaz M.D. on 06/06/2024 at 09:43
== END 2024-06-05 08:43 | disposition home or self-care (01) ==
LOC: CARD 08:42
PROVIDERS: PCP Internal Medicine; Visit Provider Internal Medicine Interventional Cardiology
DX: I34.0 Nonrheumatic mitral (valve) insufficiency (principal)
CPT/HCPCS: 93306

== ENCOUNTER 2024-08-18 15:44 | Outpatient (OUT) | payer MEDICARE, SELFPAY ==
--- OUTSIDE RECORDS SUMMARY | 2023-11-05 07:00 | XMS_ITS | Encounter Summary ---
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 This section includes the names of all active insurance providers for the patient. Insurance Provider Type of Coverage Plan Name Start of Policy Coverage End of Policy Coverage Group Number Member ID Insurance Provider's Telephone Number Policy Lopez's Name Patient's Relationship to Policy Lopez RAMILA [facility] ([facility]) MEDICARE ADVANTAGE [facility] ([facility]) Feb 13, 2020 OHRWP 0 [id number] SHEYMICHELLECHHAYA Rocha PATIENT HUMANA [facility] ([facility]) MEDICARE [facility] ([facility]) Feb 12, 2017 [id number] SHEYMICHELLECHHAYA Rocha PATIENT [employer] [facility] ([facility]) MEDICARE ADVANTAGE [facility] ([facility]) Feb 13, 2024 [id number] SHEYMICHELLECHHAYA Rocha PATIENT MEDICARE PART D ([facility]) PRESCRIPT ION PART D Feb 12, 2017 PART D [id number] CHHAYA PATEL PATIENT [employer] SPECIAL CLASS INSURANCE [facility] Feb 12, 2017 [id number] AMANDACHHAYA ROCHELLE PATIENT Selected Encounter This section includes the information on record at [place] for the Encounter. Date/Time Encounter Type Encounter Description Reason Provider Source Nov 05, 2023 11:00 AM COMPRE OPH EXAM EST PT 1/> OPTOMETRY ICD-10-CM H52.4 Presbyopia JAMES ROOT Natividad Encounter Template Text not used by [place] Assessments - Encounter Diagnoses This section includes the primary and secondary diagnoses documented for the Encounter. Date/Time Primary/Secondary Diagnosis Diagnosis Name Provider Source Nov 05, 2023 11:39 AM PRIMARY Presbyopia MISSAELDANAJAMESCOLLEEN STEVENS Nov 05, 2023 11:39 AM SECONDARY Presence of intraocular lens DANA ROOTEL [facility] Plan of Treatment: Future Appointments (+ 6 months) and Future Tests (+/- 45 days) The Plan of Treatment section includes future care activities for the patient from all [place] treatmentfacilities. This section includes future appointments and future orders which are active, pending or scheduled. Future Appointments This section includes appointments that were scheduled to occur 6 months from the date of the Encounter, up to a maximum of 20 appointments. The data comes from all [place] treatment facilities. Appointment Date/Time Appointment Type Appointme nt Facility Name Apr 01, 2024 09:45 AM AMBULATORY - NONE [facility] Apr 07, 2024 11:00 AM AMBULATORY - NONE FERNANDO Pak [facility] Social History: Smoking Status (Most current) and Tobacco Use (All prior to encounter date) This section includes the most current, and the historical, smoking and tobacco- related health factors from the [facility] facility where the Encounter took place. Current Smoking Status This section includes the most current smoking, or tobacco-related health factor, from the VA facility where the Encounter took place. Date/Time Current Smoking Status Comment Facil ity Apr 13, 2023 11:00 AM VA-TOBACCO FORMER USER [facility] Tobacco Use History This section includes a history of the smoking, or tobacco-related health factors, that were collected on or before the date of the Encounter. The data comes from the [place] facility where the Encounter took place. Date/Time Smoking Status/Tobacco Use Comment F acility Apr 13, 2023 11:00 AM VA-TOBACCO QUIT 15 YRS OR MORE [facility] Apr 19, 2022 11:30 AM VA-TOBACCO FORMER USER [facility] Apr 19, 2022 11:30 AM VA-TOBACCO QUIT 15 YRS OR MORE [facility] Apr 08, 2021 10:30 AM VA-TOBACCO FORMER USER [facility] Apr 08, 2021 10:30 AM VA-TOBACCO QUIT 15 YRS OR MORE [facility] May 03, 2020 08:30 AM VA-TOBACCO FORMER USER [facility] May 03, 2020 08:30 AM VA-TOBACCO QUIT 15 YRS OR MORE [facility] June 25, 2017 02:22 PM VA-TOBACCO FORMER USER [facility] June 25, 2017 02:22 PM VA-TOBACCO QUIT 15 YRS OR MORE [facility] Aug 09, 2007 02:32 PM QUIT TOBACCO >7 YEARS AGO [facility] Aug 24, 2006 03:15 PM QUIT TOBACCO >7 YEARS AGO [facility] Sep 01, 2005 02:28 PM TOBACCO FORMER USE R MORE 12 MONTHS QUIT SMOKING IN 1996 [facility] Feb 26, 2004 03:03 PM TOBACCO FORMER USE R MORE 12 MONTHS QUIT [facility] May 01, 2003 02:28 PM TOBACCO FORMER USE R MORE 12 MONTHS QUIT IN [facility] Oct 30, 2001 02:21 PM TOBACCO FORMER USE R LESS 12 MONTHS NOT SINCE 1996 [facility] Oct 30, 2001 02:21 PM TOBACCO FORMER USE R MORE 12 MONTHS NOT SINCE 1996 [facility] Sep 21, 2000 03:03 PM TOBACCO FORMER USE R LESS 12 MONTHS [facility] Sep 21, 2000 03:03 PM TOBACCO FORMER USE R MORE 12 MONTHS [facility] Encounter Notes: All associated encounter notes This section contains the clinical notes associated to the Encounter. Date/Time Encounter Note(s) Provider Source Nov 05, 2023 10:46 AM OPTOMETRY NOTE: LOCAL TITLE: OPTOMETRY BINDER STRIPPER MACHINE NOTE STANDARD TITLE: OPTOMETRY NOTE DATE OF NOTE: NOV 05, 2023@10:46 ENTRY DATE: NOV 05, 2023@10:46:52 AUTHOR: KENNETH PEGUERO COSIGNER: JAMES ROOT URGENCY: STATUS: COMPLETED 73 Year old vet here today LORENA Last Eye exam: Nov 09 2022 DUQUE/OPT Dr Root Chief Complaint: patient voices no visual complaints or concerns today Ocular History: (+) Allergic Conjunctivitis c PATRICK OU (+) Pseudophakia OU s/p YAG (+) Diplopia - resolved, followed by neurophthalmology (+) PVD OU Ocular Medications: Family Ocular History: Blindness/glaucoma/ARMD (-) Medical History: Osteoarthritis of joint of right 04/08/2021 Bilateral osteoarthritis of knees 07/04/2018 Chronic low back pain 07/04/2018 Overactive bladder 02/16/2015 Residential (current) use of 10/27/2014 Bph ticoagulants Now W Urinary Obst 03/20/2014 Detrusor instability of bladder 03/20/2014 Polyp of colon 09/10/2018 Multiple nodules of lung 09/24/2012 Benign prostatic hypertrophy with 05/21/2015 COPD 07/22/2004 Hyperlipidemia (05/21/2015 Chronic ischemic heart disease 05/21/[address] 05/21/2015 Active Medications: ISOSORBIDE MONONITRATE 60MG SA TAB TAKE ONE TABLET BY ACTIVE METOPROLOL TARTRATE 50MG TAB TAKE ONE TABLET BY MOUTH ACTIVE PLECANATIDE 3MG ORAL TAB TAKE ONE TABLET BY MOUTH ACTIVE ROSUVASTATIN CA 40MG TAB TAKE ONE TABLET BY MOUTH AT ACTIVE (S) Non-VA ASCORBIC ACID TAB MOUTH ACTIVE Non-VA ASPIRIN 81MG EC TAB 81MG MOUTH EVERY DAY WITH ACTIVE Non-VA CHOLECALCIF 25MCG (D3-1,000UNIT) TAB 1000UNIT ACTIVE Non-VA EPI(EQV-ADRENACLICK)0.3MG/0.3ML INJCTR ACTIVE Non-VA LISINOPRIL 10MG TAB 10MG MOUTH EVERY DAY ACTIVE Non-VA MULTIVITAMIN CAP/TAB 1 TAB/CAP MOUTH ACTIVE Non-VA POLYETHYLENE GLYCOL 3350 ORAL PWDR 1 CAPFUL ACTIVE Allergies: TROSPIUM OXYBUTYNIN CHLORID BEE VENOM Current Rx: readers only VA: sRx OD: 20/20 OS: 20/20 EOMs: FULL OU PUPILS: ERRL -APD OU CF: FULL OU /awa/ KENNETH PEGUERO OPTOMETRY BINDER STRIPPER MACHINE Signed: 11/05/2023 10:47 /awa/ JAMES ROOT REAL ESTATE APPRAISER Cosigned: 11/05/2023 11:07 KENNETH PEGUERO CBOC Nov 05, 2023 10:43 AM OPTOMETRY OUTPATIE NT NOTE: LOCAL TITLE: OPTOMETRY OUTPATIENT CLINIC NOTE (T) STANDARD TITLE: OPTOMETRY OUTPATIENT NOTE DATE OF NOTE: NOV 05, 2023@10:43 ENTRY DATE: NOV 05, 2023@10:43:51 AUTHOR: JAMES ROOT EXP COSIGNER: URGENCY: STATUS: COMPLETED 73 yowm here today for LORENA Last Eye exam: Nov 09, 2022 DUQUE/OPT Dr Root Chief Complaint: patient voices no visual complaints or concerns today Ocular History: (+) Allergic Conjunctivitis c PATRICK OU (+) Pseudophakia OU s/p YAG (+) Diplopia - resolved, followed by neurophthalmology (+) PVD OU Ocular Medications: None Family Ocular History: Blindness/glaucoma/ARMD (-) Medical History: Osteoarthritis of joint of right 04/08/2021 Bilateral osteoarthritis of knees 07/04/2018 Chronic low back pain 07/04/2018 Overactive bladder 02/16/2015 Residential (current) use of 10/27/2014 Bph ticoagulants Now W Urinary Obst 03/20/2014 Detrusor instability of bladder 03/20/2014 Polyp of colon 09/10/2018 Multiple nodules of lung 09/24/2012 Benign prostatic hypertrophy with 05/21/2015 COPD 07/22/2004 Hyperlipidemia (05/21/2015 Chronic ischemic heart disease 05/21/[address] 05/21/2015 Active Medications: ISOSORBIDE MONONITRATE 60MG SA TAB TAKE ONE TABLET BY ACTIVE METOPROLOL TARTRATE 50MG TAB TAKE ONE TABLET BY MOUTH ACTIVE PLECANATIDE 3MG ORAL TAB TAKE ONE TABLET BY MOUTH ACTIVE ROSUVASTATIN CA 40MG TAB TAKE ONE TABLET BY MOUTH AT ACTIVE (S) Non-VA ASCORBIC ACID TAB MOUTH ACTIVE Non-VA ASPIRIN 81MG EC TAB 81MG MOUTH EVERY DAY WITH ACTIVE Non-VA CHOLECALCIF 25MCG (D3-1,000UNIT) TAB 1000UNIT ACTIVE Non-VA EPI(EQV-ADRENACLICK)0.3MG/0.3ML INJCTR ACTIVE Non-VA LISINOPRIL 10MG TAB 10MG MOUTH EVERY DAY ACTIVE Non-VA MULTIVITAMIN CAP/TAB 1 TAB/CAP MOUTH ACTIVE Non-VA POLYETHYLENE GLYCOL 3350 ORAL PWDR 1 CAPFUL ACTIVE Allergies: TROSPIUM OXYBUTYNIN CHLORID BEE VENOM Current Rx: readers only VA: sRx OD: 20/20 OS: 20/20 EOMs: FULL OU PUPILS: ERRL -APD OU CF: FULL OU Refraction: OD: plano DS VA: 20/20 OS: plano DS VA: 20/20 ADD: +2.50 Slit Lamp Exam: Lids and lashes: clear OU Conjunctiva: 1 injection and papillary rx OU Cornea: pterygium temp OD and feroz OS Anterior chamber: d/q OU Angles: 4 n/t OU Iris: clear, (-) gianluca OU Lens: OD: PCIOL OS: PCIOL Obtained informed consent from patient for use of DPA's, educated patient about side effects. 1 gt. Fluress OU, 1 gt. 1.0% [place]. OU, 1 gt. 2.5 % Phenyl. OU @ 11:17 AM Tonometry (A): @ 11:17 AM OD/OS: 16/15 (11/05/23) DFE: C/D: OD: 0.30/0.30 OS: 0.30/0.30 Posterior pole: clear OU Vessels: normal course/caliber OU Vitreous: PVD OU Periphery: (-) holes/tears 360 OU Assessment/Plan: 1. Presb OU. Rx released to [facility]. 2. Pseudophakia s/p YAG OU - stable. Monitor. 3. PVD OU - stable. Monitor. 4. Int ocular health clear OU. Monitor 1 year c LORENA. 5. Resolved Diplopia - was seen with neurophthalmology and declared stable. Monitor. RTC: 1 year LORENA /awa/ JAMES ROOT REAL ESTATE APPRAISER Signed: 11/05/2023 11:39 JAMES ROOT OC
--- OUTSIDE RECORDS SUMMARY | 2024-05-13 07:00 | XMS_ITS | Encounter Summary ---
Author Name [facility] ([place]) Address [address] [place] [id number] Care Team Providers Care Docket Specialist Name Role Phone CHARLENE APONTE Primary Care [...] Name Patient's Relationship to Policy Lopez RAMILA [facility]) MEDICARE ADVANTAGE [facility] ([facility]) Feb 13, 2020 OHRWP 0 [id number] SHEYMICHELLECHHAYA Rocha PATIENT [employer] [facility] (WN) MEDICARE ADVANTAGE [facility] ([facility]) Feb 12, 2017 [id number] SHEYMICHELLECHHAYA Rocha PATIENT [employer] [facility] (WN) MEDICARE ADVANTAGE [facility] ([facility]) Feb 13, 2024 [id number] [phone] SHEYMICHELLECHHAYA Rocha PATIENT MEDICARE PART D ([facility]) PRESCRIPT ION PART D Feb 12, 2017 PART D [id number] SHEYMICHELLECHHAYA Rocha PATIENT [employer] SPECIAL CLASS INSURANCE LIMIT ED [facility] JUNIOR Feb 12, 2017 [id number] AMANDACHHAYA ROCHELLE PATIENT Selected Encounter This section includes the information on record at [place] for the Encounter. Date/Time Encounter Type Encounter Description Reason Provider Source May 13, 2024 11:00 AM TELEHEALTH FACILITY FEE PRIMARY CARE/MEDICINE ICD-10-CM K59.00 Constipation, unspecified JAMES DIAZ IHNatividad Encounter Template Text not used by [place] Assessments - Encounter Diagnoses This section includes the primary and secondary diagnoses documented for the Encounter. Date/Time Primary/Secondary Diagnosis Diagnosis Name Provider Source May 13, 2024 04:08 PM PRIMARY Constipation, unspecified JAMES DIAZ CBBARBARA Plan of Treatment: Future Appointments (+ 6 months) and Future Tests (+/- 45 days) The Plan of Treatment section includes future care activities for the patient from all [place] treatmentfacilities. This section includes future appointments and future orders which are active, pending or scheduled. Future Appointments This section includes appointments that were scheduled to occur 6 months from the date of the Encounter, up to a maximum of 20 appointments. The data comes from all [place] treatment facilities. Appointment Date/Time Appointment Type Appointme nt Facility Name Nov 04, 2024 11:00 AM AMBULATORY - SURGERY [facility] Social History: Smoking Status (Most current) and [...] took place. Date/Time Current Smoking Status Comment Lavelle ity May 13, 2024 11:00 AM VA-TOBACCO USE FORMER CIGARETTES [facility] Tobacco Use History This section includes a history of the smoking, or tobacco-related health factors, that were collected on or before the date of the Encounter. The data comes from the [place] facility where the Encounter took place. Date/Time Smoking Status/Tobacco Use Comment F acility May 13, 2024 11:00 AM VA-TOBACCO USE FOR ROSHAN CIGARETTES [facility] Apr 13, 2023 11:00 AM VA-TOBACCO FORMER USER [facility] Apr 13, 2023 11:00 AM VA-TOBACCO QUIT 15 YRS OR MORE [facility] Apr 19, 2022 11:30 AM VA-TOBACCO FORMER USER [facility] Apr 19, 2022 11:30 AM VA-TOBACCO QUIT 15 YRS OR MORE [facility] Apr 08, 2021 10:30 AM VA-TOBACCO FORMER USER [facility] Apr 08, 2021 10:30 AM VA-TOBACCO QUIT 15 YRS OR MORE [facility] May 03, 2020 08:30 AM VA-TOBACCO FORMER USER [facility] May 03, 2020 08:30 AM VA-TOBACCO QUIT 15 YRS OR MORE [facility] June 25, 2017 02:22 PM VA-TOBACCO FORMER USER [facility] June 25, 2017 02:22 PM VA-TOBACCO QUIT 15 YRS OR MORE [facility] Aug 09, 2007 02:32 PM QUIT TOBACCO >7 YEARS AGO [facility] Aug 24, 2006 03:15 PM QUIT TOBACCO >7 YEARS AGO [facility] Sep 01, 2005 02:28 PM TOBACCO FORMER USE R MORE 12 MONTHS QUIT SMOKING IN 1996 [facility] Feb 26, 2004 03:03 PM TOBACCO FORMER USE R MORE 12 MONTHS QUIT [facility] May 01, 2003 02:28 PM TOBACCO FORMER USE R MORE 12 MONTHS QUIT IN [facility] Oct 30, 2001 02:21 PM TOBACCO FORMER USE R LESS 12 MONTHS NOT SINCE 1996 [facility] Oct 30, 2001 02:21 PM TOBACCO FORMER USE R MORE 12 MONTHS NOT SINCE 1996 [facility] Sep 21, 2000 03:03 PM TOBACCO FORMER USE R LESS 12 MONTHS [facility] Sep 21, 2000 03:03 PM TOBACCO FORMER USE R MORE 12 MONTHS [facility] Encounter Notes: All associated encounter notes This section contains the clinical notes associated to the Encounter. Date/Time Encounter Note(s) Provider Source May 13, 2024 11:08 AM PRIMARY CARE NURSI NG NOTE: LOCAL TITLE: OUTPATIENT NURSING INTAKE NOTE (T) STANDARD TITLE: PRIMARY CARE NURSING NOTE DATE OF NOTE: MAY 13, 2024@11:08 ENTRY DATE: MAY 13, 2024@11:09:02 AUTHOR: JAMES DIAZ EXP COSIGNER: URGENCY: STATUS: COMPLETED Hemoglobin A1C Results: Collection DT Specimen Test Name Result Units Ref Range 06/20/2018 08:28 BLOOD HEMOGLOBIN A1C 5.7 % 3.6 - 5.7 06/30/2002 16:37 BLOOD HEMOGLOBIN A1C 5.6 % 3 - 6.1 Review Allergies Allergies reviewed and updated per protocol. ALLERGIES/ADVERSE REACTIONS Type: DRUG Date/Time Reactant Severity Reaction 03/31/2014 15:52 TROSPIUM MILD DRY MOUTH 06/20/2013 15:06 OXYBUTYNIN CHLORID CONSTIPATION Type: OTHER Date/Time Reactant Severity Reaction 12/30/2018 11:28 BEE VENOM SWELLING New blood pressure reading was documented at this visit. 118/68 Have you fallen in the last 30 days? NO MEDICATION LIST REVIEW REPORT Patient states no change in documented OTC/Herbals at this visit. 1. Has the patient been feeling sad or distressed? No 2. Has the patient been having personal or family problems? No 3. Has the patient been experiencing worry and/or stress? No 4. Has the patient been having problems with drugs and/or alcohol? No 5. [facility] pocket card was provided to patient. No/patient declined [facility] MAP ('s [place], [place] and [place]) What matters most to you? Comment: Family Clinical Reminders Activity Advance Directive Education Screen: Patient received information regarding Advance Directives: No - Patient declined information at this time. Patient states AD's are in place. Alcohol Use Screen (AUDIT-C): Alcohol Screen: SCREEN FOR ALCOHOL (AUDIT-C) An alcohol screening test (AUDIT-C) was negative (score=1). 1. How often did you have a drink containing alcohol in the past year? Consider a drink to be a 12 ounce can or bottle of regular beer, 8 ounces of malt liquor, a 5 ounce glass of table wine, or a 1.5 ounce shot of liquor (like scotch, gin, or vodka). Monthly or less 2. How many drinks containing alcohol did you have on a typical day when you were drinking in the past year? One or two drinks 3. How often did you have six or more drinks on one occasion in the past year? Never Depression Screening: Perform PHQ-2 A PHQ-2 screen was performed. The score was 2 which is a negative screen for depression. Over the past two weeks, how often have you been bothered by the following problems? 1. Little interest or pleasure in doing things Several days 2. Feeling down, depressed, or hopeless Several days Fall Screen: Patient was asked if he/she has had any falls within the past 12 months. Patients states no falls in past 12 months. Teaching Method: Verbal discussion Education Topic: Falls Risk Frail/Elderly Screen: ADL Screen - Krause Index of [place] in Activities of Daily Living Record INDEX of ADL. Score = 18 1. Bathing: either sponge bath, tub bath or shower. Receives no assistance (gets in and out of tub by self, if tub is usual means of bathing). 2. Dressing: gets clothes from closets and drawers, including under-clothes, outer garments and using fasteners (including braces if worn). Gets clothes and dresses self without assistance. 3. Toileting: going to the toilet room for bowel and urine elimination; cleaning self after elimination and arranging clothes. (May use cane, walker, or wheelchair, and manage bedpan or commode, emptying same next morning). No assistance needed. 4. Transfer: Moves in and out of bed, or chair, without assistance (may use support object like cane or walker). 5. Continence: Controls urination and bowel movement completely by self. 6. Feeding: Feeds self without assistance. IADL Screen - Omega Instrumental Activities of Daily Living Scale Ability to use telephone: (1 point) Operates Telephone on own initiative; looks up and dials numbers. Shopping: (1 point) Takes care of all shopping needs independently. Food preparation: (1 point) Plans, prepares, and serves adequate meals independently. Housekeeping: (1 point) Maintains house alone with occasional assistance (heavy work). Laundry: (1 point) Does personal laundry completely. Mode of transportation: (1 point) Travels independently on public transportation or drives own car. Responsibility for own medications: (1 point) Is responsible for taking medications in correct dosages at correct times. Ability to handle finances: (1 point) Manages financial matters independently (budgets, writes checks, pays rent and bills, goes to bank); collects and keeps track of income. Total score: 8 points 8 = High function, independent 0 = Low function, dependent Homelessness/Food Insecurity Screen: In the past 2 months, have you been living in stable housing that you own, rent, or stay in as part of a household? Yes - Living in stable housing. Are you worried or concerned that in the next 2 months you may NOT have stable housing that you own, rent, or stay in as part of a household? No - Not worried about housing near future The reports the following: Within the past 12 months, you worried whether your food would run out before you got money to buy more. Never true Within the past 12 months, the food you bought just didn't last and you didn't have money to get more. Never true Learning Assessment: LEARNING NEEDS ASSESSMENT: I. Learning Preference: Visual Written (in holy cross language) II. Barriers to Learning: No Barriers to Learning III. Social Influences Related to Educational Needs: No social barriers to learning IV. Readiness to Learn: Patient Appears ready to learn. Suicide Screen: C-SSRS Screening [place] Suicide Severity Rating Scale (C-SSRS) screener 1. Over the past month, have you wished you were or wished you could go to sleep and not wake up? No 2. Over the past month, have you had any actual thoughts of killing yourself? No 3. Over the past month, have you been thinking about how you might do this? Response not required due to responses to other questions. 4. Over the past month, have you had these thoughts and had some intention of acting on them? Response not required due to responses to other questions. 5. Over the past month, have you started to work out or worked out the details of how to kill yourself? Response not required due to responses to other questions. 6. If yes, at any time in the past month did you intend to carry out this plan? Response not required due to responses to other questions. 7. In your lifetime, have you ever done anything, started to do anything, or prepared to do anything to end your life (for example, collected pills, obtained a gun, gave away valuables, went to the roof but didn't jump)? No 8. If YES, was this within the past 3 months? Response not required due to responses to other questions. Tobacco Use Screening: The patient is a former cigarette smoker. The patient has never used other types of tobacco. /awa/ JAMES DIAZ LICENSED PRACTICAL NURSE Signed: 05/13/2024 11:18 JAMES DIAZ [facility]
--- OUTSIDE RECORDS SUMMARY | 2024-05-13 07:02 | XMS_ITS | Encounter Summary ---
Author Name [facility] [place] Organization [facility] [place] Address [address] [place] [address] Care Team Providers Care Dental Therapist Name Role Phone CHARLENE APONTE Primary Care [...] Name Patient's Relationship to Policy Lopez RAMILA [facility]) MEDICARE ADVANTAGE [facility] ([facility]) Feb 13, 2020 [facility] [id number] CHHAYA PATEL PATIENT [employer] [facility] ([facility]) MEDICARE ADVANTAGE [facility] ([facility]) Feb 12, 2017 [id number] SHEYMICHELLECHHAYA Rocha PATIENT [employer] [facility] ([facility]) MEDICARE ADVANTAGE [facility] ([facility]) Feb 13, 2024 [id number] SHEYMICHELLECHHAYA Rocha PATIENT MEDICARE PART D ([facility]) PRESCRIPT ION PART D Feb 12, 2017 PART D [id number] CHHAYA PATEL PATIENT [employer] SPECIAL CLASS 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 Date/Time Encounter Type Encounter Description Reason Provider Source May 13, 2024 11:02 AM OFFICE O/P EST MOD 30 MIN PRIMARY CARE/MEDICINE ICD-10-CM K59.00 Constipation, unspecified STANTON OROZCO Nativid[place] Encounter Template Text not used by [place] Assessments - Encounter Diagnoses This section includes the primary and secondary diagnoses documented for the Encounter. Date/Time Primary/Secondary Diagnosis Diagnosis Name Provider Source May 13, 2024 11:39 AM PRIMARY Constipation, unspecified STANTON OROZCO [facility] May 13, 2024 11:39 AM SECONDARY Hyperlipidemia, unspecified [facility] Plan of Treatment: Future Appointments (+ 6 months) and Future Tests (+/- 45 days) The Plan of Treatment section includes future care activities for the patient from all [place] [facility]. This section includes future appointments and future orders which are active, pending or scheduled. Future Appointments This section includes appointments that were scheduled to occur 6 months from the date of the Encounter, up to a maximum of 20 appointments. The data comes from all [place] treatment facilities. Appointment Date/Time Appointment Type Appointme nt Facility Name Nov 04, 2024 11:00 AM AMBULATORY - SURGERY [facility] Vital Signs: All taken on the encounter date This section contains inpatient and outpatient Vital Signs collected on the date of the Encounter. Date/Time Temperature Pulse Blood Pressure Respiratory Rate SP02 Pain Height Weight Body Mass Index Source May 13, 2024 11:11 AM 118/68 [facility] May 13, 2024 11:07 AM 97.7 60 142/69 16 96 0 218.4 31 [facility] Social History: Smoking Status (Most current) and Tobacco Use (All prior to encounter date) This section includes the most current, and the historical, smoking and tobacco- related health factors from the [place] facility where the Encounter took place. Current Smoking Status This section includes the most current smoking, or tobacco-related health factor, from the [place] facility where the Encounter took place. Date/Time Current Smoking Status Comment Facil ity June 25, 2014 10:33 AM TOBACCO FORMER USER MORE 1 2 MONTHS quit [address] [facility] Tobacco Use History This section includes a history of the smoking, or tobacco-related health factors, that were collected on or before the date of the Encounter. The data comes from the [place] facility where the Encounter took place. Date/Time Smoking Status/Tobacco Use Comment F acility Feb 13, 2013 10:26 AM TOBACCO FORMER USER MORE 12 [place] [facility] Encounter Notes: All associated encounter notes This section contains the clinical notes associated to the Encounter. Date/Time Encounter Note(s) Provider Source May 13, 2024 11:16 AM INTERNAL MEDICINE OUTPATIENT NOTE: LOCAL TITLE: PRIMARY CARE OUTPATIENT NOTE (T) STANDARD TITLE: INTERNAL MEDICINE OUTPATIENT NOTE DATE OF NOTE: MAY 13, 2024@11:16 ENTRY DATE: MAY 13, 2024@11:16:58 AUTHOR: STANTON OROZCO EXP COSIGNER: URGENCY: STATUS: COMPLETED IMPRESSION AND PLAN. HTN. BP stable, continue metoprolol, isosorbide. HLD, CAD s/p CT, s/p CABG and PATRICK x3. Continue rosuvastatin, LDL 87 03/2024. BPH. Sees outside urology at [facility]. COPD. Stable, continue f/u with outside PCP; doesn't use inhaler. Has quit smoking. OA knees. Sees outside orthopedics Dr. Ferrell. H/o colon polyps. Last cscope 10/12/2021, repeat in 5 years. Constipation. Seeing GI at [facility]. Taking Miralax, plecanatide. Has tried Linzess, stool softeners. Will schedule follow up today at [place]. Last stool was loose today due to medications. >30 minutes spent with patient, reviewing labs/results/consults, discussing treatment. We discussed all items in plan together, all decision making shared. RTC and FOLLOW UP OF RESULTS: Order placed and MSA ID'd for scheduling of visit in 12 months. ----- OPPORTUNITY FOR VACCINATIONS: Patient given opportunity to receive all eligible immunizations including for pneumococcal vaccination. CONSENT FOR TELEHEALTH: Patient consented to therapy session via telehealth video conferencing modality. Patient educated as to likely difference between telehealth care and face to face care. Patient informed of the risks and benefits of using telehealth services and procedures, and likely risks and benefits of using alternatives to telehealth services. Patient informed of the right to refuse telehealth services at any time without jeopardizing their right to future care, services or benefits. The identity and professional status of all participants in the telehealth encounter shall be conveyed to the patient by the practitioner giving the care. MEDICATION RECONCILIATION: Medication Reconciliation report reviewed and discussed with patient/caregiver. VA prescription medications, non-VA prescription medications, OTC and herbal medications reviewed: Patient/caregiver verifies that the list is complete and accurate and voices understanding. Medication education and counseling for any new medications added today were provided to the patient/caregiver based on the individual's needs. This included why the medication was prescribed, how it should be taken and for how long, what to expect from it, and what happens if not taken as prescribed. The patient/caregiver was also informed about risks and potential adverse effects of this medication and agreed to medication trial. I certify that the patient/caregiver understood my education and instructions. ADDITIONAL INFORMATION: E911: For emergencies, provider may initiate the call to purchasing administrative assistant by calling E911 Center [phone]. [facility] Emergency Room 04/09: [phone] Crisis Hotline: [phone] and push 1 [place] Help Desk ([place]): 940.429.5064 or [phone] CLINICAL REMINDERS: ----- CHIEF COMPLAINT: constipation HPI and ROS: 73 y/o man h/o BPH, CAD, HLD, HTN, reports chronic constipation, has been seen at [facility] ED as well as GI for constipation. Sometimes has diarrhea, previously has tried milk of magnesia, Linzess (from outside GI), taking stool softeners, Miralax, plecanatide. Currently having looser stools and diarrhea from laxatives, other times has no stool. PMHx&PSHx: BPH CAD HLD HTN PHYSICAL EXAM: exam findings limited to CVT exam camera and telepresenter competencies. General- Patient is resting comfortably in NAD CV- RRR, no MGR, nl S1&S2 Pulm- CTA Bilaterally, no wheezes, rales or ronchi, good air exchange *MEDICATION RECONCILIATION:Active and Recently Outpatient Medications (including Supplies): Active Outpatient Medications Status = 1) IBUPROFEN 800MG TAB TAKE ONE TABLET BY MOUTH THREE ACTIVE TIMES A DAY, WITH MEALS NEEDED FOR PAIN (WITH FOOD) 2) ISOSORBIDE MONONITRATE 60MG SA TAB TAKE ONE TABLET BY ACTIVE (S) MOUTH EVERY DAY, ON AN EMPTY STOMACH FOR HEART 3) METOPROLOL TARTRATE 50MG TAB TAKE ONE TABLET BY MOUTH ACTIVE (S) TWICE A DAY FOR HIGH BLOOD PRESSURE 4) PLECANATIDE 3MG ORAL TAB TAKE ONE TABLET BY MOUTH ACTIVE EVERY DAY 5) ROSUVASTATIN CA 40MG TAB TAKE ONE TABLET BY MOUTH AT ACTIVE (S) BEDTIME FOR CHOLESTEROL Pending Outpatient Medications Status = 1) ISOSORBIDE MONONITRATE 60MG SA TAB TAKE ONE TABLET BY PENDING MOUTH EVERY DAY, ON AN EMPTY STOMACH FOR HEART 2) METOPROLOL TARTRATE 50MG TAB TAKE ONE TABLET BY MOUTH PENDING TWICE A DAY 3) ROSUVASTATIN CA 40MG TAB TAKE ONE TABLET BY MOUTH AT PENDING BEDTIME FOR CHOLESTEROL Inactive Outpatient Medications Status = 1) ISOSORBIDE MONONITRATE 60MG SA TAB TAKE ONE TABLET BY DISCONTINUED MOUTH EVERY DAY, ON AN EMPTY STOMACH FOR HEART 2) METOPROLOL TARTRATE 50MG TAB TAKE ONE TABLET BY MOUTH DISCONTINUED TWICE A DAY FOR HIGH BLOOD PRESSURE 3) ROSUVASTATIN CA 40MG TAB TAKE ONE TABLET BY MOUTH AT DISCONTINUED BEDTIME FOR CHOLESTEROL Active Non-VA Medications Status = 1) Non-VA ASCORBIC ACID TAB MOUTH ACTIVE 2) Non-VA ASPIRIN 81MG EC TAB 81MG MOUTH EVERY DAY WITH ACTIVE BREAKFAST 3) Non-VA CHOLECALCIF 25MCG (D3-1,000UNIT) TAB 1000UNIT ACTIVE MOUTH EVERY DAY 4) Non-VA EPI(EQV-ADRENACLICK)0.3MG/0.3ML INJCTR ACTIVE DIRECTED INTRAMUSCULARLY ONE TIME 5) Non-VA LISINOPRIL 10MG TAB 10MG MOUTH EVERY DAY ACTIVE 6) Non-VA MULTIVITAMIN CAP/TAB 1 TAB/CAP MOUTH ACTIVE 7) Non-VA POLYETHYLENE GLYCOL 3350 ORAL PWDR 1 CAPFUL ACTIVE (17GM) IN 8 OUNCES OF LIQUID AND TAKE BY MOUTH EVERY DAY 18 Total Medications ----- /awa/ Stanton Orozco MD [facility] [id number] Primary Care Signed: 05/13/2024 11:[address] [facility]
--- OUTSIDE RECORDS SUMMARY | 2024-06-30 11:47 | XMS_ITS ---
Author Name Auto Generated Organization OHIP Care Team Providers Care Certified Adapted Physical Educator Name Role Phone TAMANNA JOSHUA Attending Unavailable STANTON VELASCO Attending Unavailable STANTON VELASCO B Attending Unavailable STANTON VELASCO B Attending Unavailable CELINA PERLA Attending Unavailable SUKUMAR MACK Attending Unavailable CLARA-LOUIE RAINES Referring Unavailable VELASCO II, STANTON B Primary Care Unavailable VELASCO II, STANTON B Primary Care Unavailable STARR, CHRIS Attending Unavailable VELASCO II, STANTON B Primary Care Unavailable STARR, CHRIS Attending Unavailable VASVESNA, FADY P Referring Unavailable VELASCO II, STANTON B Primary Care Unavailable VASAVADA, FADY P Attending Unavailable VELASCO II, STANTON B Primary Care Unavailable RISHIDA, FADY P Attending Unavailable Suzanna Macdonald Attending Unavailable Suzanna Macdonald Admitting Unavailable CLARA-OLU, LOUIE Attending Unavailable VELASCO II, STANTON B Primary Care Unavailable Hema Solorio. Attending Unavailable Hema Solorio. Attending Unavailable Hema Solorio. Attending Unavailable Hema Solorio A. Attending Unavailable Hema Solorio A. Admitting Unavailable PROBLEMS DATE TYPE CONDITION / CODE ATTENDING STATUS [facility] 05/24/2022 Admitting Diagnosis Atherosclerotic heart disease of [place] coronary artery without angina pectoris / I25.10(ICD-10) [facility] Active [facility] 05/21/2024 Admitting Diagnosis Hypertensive heart disease without heart failure / I11.9(ICD-10) [facility] Active [facility] 05/21/2024 Admitting Diagnosis Nonrheumatic mitral (valve) insufficiency / I34.0(ICD-10) [facility] Active [facility] 02/26/2024 Active Inguinal hernia without obstruction or gangrene, recurrence not specified, unspecified laterality / K40.90(ICD-10) CHRIS CLEMENTS Active [facility] 02/18/2024 Active Overactive bladd er / N32.81(ICD-10) FADY DYE Active [facility] 02/18/2024 Active Incomplete bladd er emptying / R33.9(ICD-10) FADY DYE Active [facility] 01/25/2024 Unknown Urgency of urina tion / R39.15(ICD-10) Suzanna Macdonald [facility] 10/30/2018 Active Obesity, Class I , BMI 30-34.9 / E66.811(ICD-10) [facility] L[facility] 12/12/2023 Active Urinary urgency / R39.15(ICD-10) [facility] 12/12/2023 Active Urinary retentio n / R33.9(ICD-10) [facility] LOU[facility] 12/12/2023 Active Postprocedural m ar urethral stricture / N99.114(ICD-10) SANDRA [facility] 12/12/2023 Active Self-catheterize s urinary bladder / Z78.9(ICD-10) CLARA-OLU, [facility] PROCEDURES No Procedure Records Found RESULTS ORDERS ONLY Observed: 07/14/2024 12:00 AM Status: COMPLETED Source: [facility] [id number] Fahad Sotelo [birth year] Date Provider Department [place] 07/14/2024 [id number] SERRANO [facility] Family History Problem Relation Age of Onset Coronary artery disease Other Stroke Other Heart attack Other Family Status - Relation Status Age at Other AMBULATORY VISIT SUMMARY Observed: 06/30 11:47 AM Status: F Source: [facility] Ambulatory Visit Summary FAHAD SOTELO :1950 Visit Date:06/30/2024 Ambulatory Visit Instructions Your Diagnosis Diarrhea Generalized abdominal pain Straining during bowel movements History of colon polyps Abdominal cramping Your Care Team Attending Physician - Lyndsey CAMARGO, Hema Moore. Primary Care Physician - STANTON VELASCO MD This Is Your Medications List Contact prescribing physician if questions or concerns Non-Formulary Medication (Constulose 15 ML BID) ascorbic acid (Vitamin C) aspirin (aspirin 81 mg oral capsule) cetirizine (Zyrtec) cholecalciferol (Vitamin D3 50 mcg (2000 intl units) oral tablet, disintegrating) docusate (Dulcolax Stool Softener) isosorbide mononitrate (isosorbide mononitrate 60 mg ER Tab) linaclotide (Linzess 145 mcg oral capsule) lisinopril (lisinopril 20 mg Tab) metoprolol (Metoprolol tartrate 50 mg Tab) multivitamin plecanatide (Trulance 3 mg oral tablet) polyethylene glycol 3350 (MiraLax) polyethylene glycol 3350 with electrolytes (GaviLyte-C) rosuvastatin (rosuvastatin 40 mg Tab) tenapanor (Ibsrela 50 mg oral tablet) Procedures Performed Back, Colonoscopy, Knee, Open heart surgery, Shoulder, Stent. Discharge Vitals Heart Rate (Peripheral) 58 Blood Pressure 115/63 Height 175 cm Height 69 in Weight 99.2 kg Weight 218.698 lb BMI 32.39 What to do next Someone Will Contact You Regarding These Appointments [facility] External Ambulatory Referral, Referring provider preference, Colon & Rectal Surgery, rectal manometry, 06/30/24 12:41:00 EDT, Diarrhea Generalized abdominal pain Straining during bowel movements History of colon polyps Abdominal cramping Medications What How Much When Why Instructions Unchanged ascorbic acid (Vitamin C) Every day Contact prescribing physician if questions or concerns Unchanged aspirin (aspirin 81 mg oral capsule) By Mouth Every 24 hours Contact prescribing physician if questions or concerns Unchanged cetirizine (Zyrtec) Every day Contact prescribing physician if questions or concerns Unchanged cholecalciferol (Vitamin D3 50 mcg (2000 intl units) oral tablet, disintegrating) By Mouth Every day Contact prescribing physician if questions or concerns Unchanged docusate (Dulcolax Stool Softener) By Mouth 2 times a day Contact prescribing physician if questions or concerns Unchanged isosorbide mononitrate (isosorbide mononitrate 60 mg ER Tab) By Mouth Once a day (in the morning) Contact prescribing physician if questions or concerns Unchanged linaclotide (Linzess 145 mcg oral capsule) 1 Capsules By Mouth Every day Constipation Straining during bowel movements History of colon polyps Contact prescribing physician if questions or concerns Unchanged lisinopril (lisinopril 20 mg Tab) By Mouth Every day Contact prescribing physician if questions or concerns Unchanged metoprolol (Metoprolol tartrate 50 mg Tab) By Mouth 2 times a day Contact prescribing physician if questions or concerns Unchanged multivitamin Contact prescribing physician if questions or concerns Unchanged Non-Formulary Medication (Constulose 15 ML BID) Contact prescribing physician if questions or concerns Unchanged plecanatide (Trulance 3 mg oral tablet) 1 Tablets By [facility]outh [facility] Contact prescribing physician if questions or concerns Unchanged polyethylene glycol 3350 (MiraLax) By Mouth Every day Contact prescribing physician if questions or concerns Unchanged polyethylene glycol 3350 with electrolytes (GaviLyte-C) Contact prescribing physician if questions or concerns Unchanged rosuvastatin (rosuvastatin 40 mg Tab) By Mouth Every day Contact prescribing physician if questions or concerns Unchanged tenapanor (Ibsrela 50 mg oral tablet) 1 Tablets By Mouth 2 times a day Irritable bowel syndrome with constipation Contact prescribing physician if questions or concerns Allergies No Known Medication Allergies Problems Ongoing - Any problem that you are currently receiving treatment for. Abdominal cramping Generalized abdominal pain History of colon polyps Smoker Straining during bowel movements Patient Survey You may receive a survey via text or e-mail asking about your office visit. Please share your experience with us by completing your survey. We appreciate your feedback and thank you for choosing us for your care. GASTROENTEROLOGY OFFICE/CLIN IC NOTE Observed: 06/30/2024 11:47 AM Status: F Source: [facility] Gastroenterology Office/Clin ic Note Chief Complaint Diarrhea, abdominal pain, urgency and gurgling. HPI Staff EST, 73 year old male who presents today for a 12 week follow up with c/o diarrhea since taking the Ibsrela. Patient c/o diarrhea, urgency, bloating and stomach gurgling. Patient states that he has to strain to have watery diarrhea. Last visit w/ Dr Solorio History of present inness still with issues with constipation on trulance Linzess was not approved on lactulose once a day Assessment/Plan 1. Abdominal pain (R10.9: Unspecified abdominal pain) 2. Diarrhea (R19.7: Diarrhea, unspecified) 3. Straining during bowel movements (R19.8: Other specified symptoms and signs involving the digestive system and abdomen) 4. History of colon polyps (Z86.0100: Personal history of colon polyps, unspecified) 5. Generalized abdominal pain (R10.84: Generalized abdominal pain) Continue Trulance 3 mg daily Patient was not approved for Linzess Continue bisacodyl 1 tablet every day Patient cannot give himself enemas or suppositories Continue MiraLAX/milk of magnesium titrate to have 1-2 bowel movements every day Continue lactulose once daily Will attempt to get ibsrella or vibrating capsule in the future Attempted to reduce swelling disimpaction in the office. Small amount of stool removed Obtain KUB XR abd 05/14/24 IMPRESSION: CHOLELITHIASIS. History of Present Illness I have reviewed HPI staff note, most recent labs and imaging, I agree with the above documentation with the following additions/exceptions : PT on ibsrella and some mirlax pt with ache in both sides and has to strain to get liquid stool out lots of gurgling Review of Systems PHQ Score Initial Depression Screen Score: 0 SCORE All systems reviewed, negative except as mentioned above Physical Exam Vitals & Measurements HR: 58(Peripheral) BP: 115/63 HT: 175 cm HT: 69 in WT: 99.2 kg WT: 218.698 lb BMI: 32.39 General: alert, no acute distress HEENT: atraumatic normocephalic Cardiovascular: regular rate and rhythm, normal peripheral perfusion Respiratory: Lungs CTA, respirations non labored Extremities: no deformity, no trauma Abdomen: Benign, soft, nontender nondistended Assessment/Plan 1. Diarrhea (R19.7: Diarrhea, unspecified) Ordered: Current tobacco non-user 1036F [facility] External Ambulatory Referral Most recent diastolic blood pressure <80 mm Hg 3078F Systolic BP <130 mm Hg (Most Recent) 3074F 2. Generalized abdominal pain (R10.84: Generalized abdominal pain) Ordered: Current tobacco non-user 1036F [facility] External Ambulatory Referral Most recent diastolic blood pressure <80 mm Hg 3078F Systolic BP <130 mm Hg (Most Recent) 3074F 3. Straining during bowel movements (R19.8: Other specified symptoms and signs involving the digestive system and abdomen) Ordered: Current tobacco non-user 1036F [facility] External Ambulatory Referral Most recent diastolic blood pressure <80 mm Hg 3078F Systolic BP <130 mm Hg (Most Recent) 3074F 4. History of colon polyps (Z86.0100: Personal history of colon polyps, unspecified) Ordered: Current tobacco non-user 1036F [facility] External Ambulatory Referral Most recent diastolic blood pressure <80 mm Hg 3078F Systolic BP <130 mm Hg (Most Recent) 3074F 5. Abdominal cramping (R10.9: Unspecified abdominal pain) Ordered: [facility] External Ambulatory Referral Will schedule anorectal manometry Continue Abstral at the same dose Continue MiraLAX/milk of magnesia as needed Continue to use squatty potty and massage the colon Offered to start on Levsin but patient wants to hold off on starting a new medication for now Follow-up No qualifying data available Problem List/Past Medical History Ongoing Abdominal cramping Generalized abdominal pain History of colon polyps Smoker Straining during bowel movements Historical No qualifying data Procedure/Surgical History Back, Colonoscopy, Knee, Open heart surgery, Shoulder, Stent. Medications aspirin 81 mg oral capsule, Oral, q24hr Constulose 15 ML BID Dulcolax Stool Softener, Oral, BID GaviLyte-C Ibsrela 50 mg oral tablet, 50 mg= 1 tab(s), Oral, BID, 6 refills isosorbide mononitrate 60 mg ER Tab, Oral, qAM Linzess 145 mcg oral capsule, 145 mcg= 1 cap(s), Oral, Daily, 9 refills, Not taking lisinopril 20 mg Tab, Oral, Daily Metoprolol tartrate 50 mg Tab, Oral, BID MiraLax, Oral, Daily multivitamin rosuvastatin 40 mg Tab, Oral, Daily Trulance 3 mg oral tablet, 3 mg= 1 tab(s), Oral, Daily, Not taking Vitamin C, Daily Vitamin D3 50 mcg (2000 intl units) oral tablet, disintegrating, Oral, Daily Zyrtec, Daily Allergies No Known Medication Allergies Social History Tobacco Former smoker, quit more than 30 days ago Tobacco Use:. Never Smokeless Tobacco Use:. Cigarettes, 06/30/2024 Family History Family history is negative Result Comment: Electronical ly Signed By: Lyndsey CAMARGO, Hema Appiah.br\Date and Time Signed: 06/30/24 12:42 EDT OFFICE VISIT Observed: 05/21/2024 1:30 PM Status: COMPLETED Source: [facility] [id number] Fahad Sotelo [birth year] M Date Provider Department Center 05/21/2024 Pamela-TAMANNA JOSHUA [facility] Family History Problem Relation Age of Onset Coronary artery disease Other Stroke Other Heart attack Other Family Status - Relation Status Age at Other Level of Service:12692 [place] OFFICE/OUTPATIENT ESTABLISHED LOW [facility] 20 MIN PROGRESS Observed: 05/21/2024 1:30 PM Status: COMPLETED Source: [facility] Cardiology Clinic Note Chief Complaint: Patient here for 1 year follow up labs in February. No cardiac complaints at this time HPI: Fahad Sotelo is a 73 y.o. male With a history of coronary artery disease, single-vessel coronary artery bypass graft surgery, hypertension here in routine follow-up Is doing well; Denies chest pain, has shortness of breath Does not remember how he felt prior to revascularization Cardiology ROS: Review of Systems Cardiovascular: Leg swelling: minimal. Musculoskeletal: Positive for arthritis, joint pain and [...] Stroke Other Heart attack Other Allergies Bee pollen, Bee venom protein (honey bee), Oxybutynin, and Trospium Medications Current Outpatient Medications: linaCLOtide (Linzess) 290 mcg capsule, Take 290 mcg by mouth before breakfast., Disp: , Rfl: loratadine (Claritin) 10 mg tablet, Take 10 mg by mouth in the morning., Disp: , Rfl: ondansetron ODT (Zofran-ODT) 4 mg disintegrating tablet, Take 4 mg by mouth every 4 (four) hours if needed., Disp: , Rfl: plecanatide (Trulance) tablet tablet, Take 3 mg by mouth in the morning., Disp: , Rfl: tiZANidine (Zanaflex) 4 mg tablet, Take 1 tablet by mouth every 6 (six) hours during the day., Disp: , Rfl: trospium (Sanctura) 20 mg tablet, Take 20 mg by mouth twice a day., Disp: , Rfl: aspirin 81 mg chewable tablet, in the [...] every 12 (twelve) hours., Disp: , Rfl: nitroglycerin (Nitrostat) 0.4 mg SL tablet, Place 0.4 mg under the tongue every 5 (five) minutes if needed., Disp: , Rfl: rosuvastatin (Crestor) 40 mg tablet, Crestor 40 mg tablet, Disp: , Rfl: Last Recorded Vitals BP 122/72 (BP Location: Right arm, Patient Position: Sitting) Pulse 63 Ht 1.778 m (5' 10 ) Wt 98.9 kg (218 lb) SpO2 96% BMI 31.28 kg/m??? Physical Examination: GENERAL: alert and oriented [...] distal left anterior descending coronary artery. 3. 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 Follow up with me in the [facility] in 1 month. 5. Follow up with Dr. Mcdonald as scheduled. Stress test 06/28/2023: Normal nuclear medicine myocardial perfusion scan Assessment: Coronary atherosclerosis; history of coronary artery bypass graft surgery-saphenous vein graft to the LAD (2004) given need for emergency CABG due to complicated PCI Essential hypertension Dyslipidemia Mitral regurgitation Plan: Continue optimal medical therapy for coronary artery disease including aspirin, Crestor, lisinopril and metoprolol A complete echocardiogram to serially monitor his mitral regurgitation Return to clinic in a year or sooner should problems arise Tamanna Joshua MD, MPH, FACC, [facility], [facility] Interventional Cardiology Pager Email: [email or web address] XR ABDOMEN 1 VIEW Observed: 05/14/2024 2:22 PM Status: F Source: [facility] Exam Date/Time: 05/14/2024 14:34 EDT Reason for Exam: R10.9, R19.7;Abdominal distention Report IMPRESSION: CHOLELITHIASIS. CLINICAL HISTORY: Abdominal distention, R10.9, R19.7 COMPARISON: NONE. FINDINGS: Gas and stool in colon. No diffuse small bowel dilatation or mass effect. Multiple calculi identified within gallbladder. No discrete calculi visualized over kidneys bilaterally. Probable phleboliths in pelvic inlet. Internal fixation lower lumbar spine. Technical Comments: suyapa Sharpe in mGy = . DAP = . Ordering Provider: Hema Solorio FINAL REPORT Dictated: 05/14/2024 3:24 pm Anderson Perry MD Signed (Electronic Signature): 05/14/2024 3:24 pm Signed by: Anderson Perry MD Transcribed by: TAHIR Technologist: AP AMBULATORY VISIT SUMMARY Observed: 05/14 12:41 PM Status: F Source: [facility] Ambulatory Visit Summary FAHAD SOTELO :1950 Visit Date:05/14/2024 Ambulatory Visit Instructions Your Diagnosis Abdominal pain Diarrhea Straining during bowel movements History of colon polyps Generalized abdominal pain Your Care Team Attending Physician - Hema Solorio MD Primary Care Physician - STANTON VELASCO MD This Is Your Medications List Contact prescribing physician if questions or concerns Non-Formulary Medication (Constulose 15 ML BID) ascorbic acid (Vitamin C) aspirin (aspirin 81 mg oral capsule) cetirizine (Zyrtec) cholecalciferol (Vitamin D3 50 mcg (2000 intl units) oral tablet, disintegrating) docusate (Dulcolax Stool Softener) isosorbide mononitrate (isosorbide mononitrate 60 mg ER Tab) linaclotide (Linzess 145 mcg oral capsule) lisinopril (lisinopril 20 mg Tab) metoprolol (Metoprolol tartrate 50 mg Tab) multivitamin plecanatide (Trulance 3 mg oral tablet) polyethylene glycol 3350 (MiraLax) polyethylene glycol 3350 with electrolytes (GaviLyte-C) rosuvastatin (rosuvastatin 40 mg Tab) Procedures Performed Back, Colonoscopy, Knee, Open heart surgery, Shoulder, Stent. Discharge Vitals Heart Rate (Peripheral) 60 Blood Pressure 112/74 Height 175 cm Height 69 in Weight 98.4 kg Weight 216.935 lb BMI 32.13 What to do next Scheduled Follow-Up Appointments Sunday 12:15 PM EDT With: Lyndsey CAMARGO, Hema Shelby Where: [facility] [address] [place], [place] [id number]- You Need to Complete the Following XR Abdomen 1 View, 05/14/24, Routine, Order for future visit, Transport Mode: Ambulatory, Reason: Abdominal distention, No, Abdominal pain Diarrhea Straining during bowel movements History of colon polyps Generalized abdominal pain, pp_set_radiology_subspecialty... Medications What How Much When Why Instructions Unchanged ascorbic acid (Vitamin C) Every day Contact prescribing physician if questions or concerns Unchanged aspirin (aspirin 81 mg oral capsule) By Mouth Every 24 hours Contact prescribing physician if questions or concerns Unchanged cetirizine (Zyrtec) Every day Contact prescribing physician if questions or concerns Unchanged cholecalciferol (Vitamin D3 50 mcg (2000 intl units) oral tablet, disintegrating) By Mouth Every day Contact prescribing physician if questions or concerns Unchanged docusate (Dulcolax Stool Softener) By Mouth 2 times a day Contact prescribing physician if questions or concerns Unchanged isosorbide mononitrate (isosorbide mononitrate 60 mg ER Tab) By Mouth Once a day (in the morning) Contact prescribing physician if questions or concerns Unchanged linaclotide (Linzess 145 mcg oral capsule) 1 Capsules By Mouth Every day Constipation Straining during bowel movements History of colon polyps Contact prescribing physician if questions or concerns Unchanged lisinopril (lisinopril 20 mg Tab) By Mouth Every day Contact prescribing physician if questions or concerns Unchanged metoprolol (Metoprolol tartrate 50 mg Tab) By Mouth 2 times a day Contact prescribing physician if questions or concerns Unchanged multivitamin Contact prescribing physician if questions or concerns Unchanged Non-Formulary Medication (Constulose 15 ML BID) Contact prescribing physician if questions or concerns Unchanged plecanatide (Trulance 3 mg oral tablet) 1 Tablets By Mouth Every day [facility] prescrib[facility] Contact prescribing physician if questions or concerns Unchanged polyethylene glycol 3350 (MiraLax) By Mouth Every day Contact prescribing physician if questions or concerns Unchanged polyethylene glycol 3350 with electrolytes (GaviLyte-C) Contact prescribing physician if questions or concerns Unchanged rosuvastatin (rosuvastatin 40 mg Tab) By Mouth Every day Contact prescribing physician if questions or concerns Allergies No Known Medication Allergies Problems Ongoing - Any problem that you are currently receiving treatment for. Generalized abdominal pain History of colon polyps Smoker Straining during bowel movements Patient Survey You may receive a survey via text or e-mail asking about your office visit. Please share your experience with us by completing your survey. We appreciate your feedback and thank you for choosing us for your care. AMBULATORY VISIT SUMMARY Observed: 05/14 12:41 PM Status: F Source: [facility] Ambulatory Visit Summary FAHAD SOTELO :1950 Visit Date:05/14/2024 Ambulatory Visit Instructions Your Diagnosis Abdominal pain Diarrhea Straining during bowel movements History of colon polyps Generalized abdominal pain Your Care Team Attending Physician - Lyndsey CAMARGO, Hema Moore. Primary Care Physician - FABBY CAMARGO, STANTON Payne This Is Your Medications List Contact prescribing physician if questions or concerns Non-Formulary Medication (Constulose 15 ML BID) ascorbic acid (Vitamin C) aspirin (aspirin 81 mg oral capsule) cetirizine (Zyrtec) cholecalciferol (Vitamin D3 50 mcg (2000 intl units) oral tablet, disintegrating) docusate (Dulcolax Stool Softener) isosorbide mononitrate (isosorbide mononitrate 60 mg ER Tab) linaclotide (Linzess 145 mcg oral capsule) lisinopril (lisinopril 20 mg Tab) metoprolol (Metoprolol tartrate 50 mg Tab) multivitamin plecanatide (Trulance 3 mg oral tablet) polyethylene glycol 3350 (MiraLax) polyethylene glycol 3350 with electrolytes (GaviLyte-C) rosuvastatin (rosuvastatin 40 mg Tab) Procedures Performed Back, Colonoscopy, Knee, Open heart surgery, Shoulder, Stent. Discharge Vitals Heart Rate (Peripheral) 60 Blood Pressure 112/74 Height 175 cm Height 69 in Weight 98.4 kg Weight 216.935 lb BMI 32.13 What to do next Scheduled Follow-Up Appointments Sunday 12:15 PM EDT With: Lyndsey CAMARGO, Hema Shelby Where: [facility] [address] [place] [id number]- You Need to Complete the Following XR Abdomen 1 View, 05/14/24, Routine, Order for future visit, Transport Mode: Ambulatory, Reason: Abdominal distention, No, Abdominal pain Diarrhea Straining during bowel movements History of colon polyps Generalized abdominal pain, pp_set_radiology_subspecialty... Medications What How Much When Why Instructions Unchanged ascorbic acid (Vitamin C) Every day Contact prescribing physician if questions or concerns Unchanged aspirin (aspirin 81 mg oral capsule) By Mouth Every 24 hours Contact prescribing physician if questions or concerns Unchanged cetirizine (Zyrtec) Every day Contact prescribing physician if questions or concerns Unchanged cholecalciferol (Vitamin D3 50 mcg (2000 intl units) oral tablet, disintegrating) By Mouth Every day Contact prescribing physician if questions or concerns Unchanged docusate (Dulcolax Stool Softener) By Mouth 2 times a day Contact prescribing physician if questions or concerns Unchanged isosorbide mononitrate (isosorbide mononitrate 60 mg ER Tab) By Mouth Once a day (in the morning) Contact prescribing physician if questions or concerns Unchanged linaclotide (Linzess 145 mcg oral capsule) 1 Capsules By Mouth Every day Constipation Straining during bowel movements History of colon polyps Contact prescribing physician if questions or concerns Unchanged lisinopril (lisinopril 20 mg Tab) By Mouth Every day Contact prescribing physician if questions or concerns Unchanged metoprolol (Metoprolol tartrate 50 mg Tab) By Mouth 2 times a day Contact prescribing physician if questions or concerns Unchanged multivitamin Contact prescribing physician if questions or concerns Unchanged Non-Formulary Medication (Constulose 15 ML BID) Contact prescribing physician if questions or concerns Unchanged plecanatide (Trulance 3 mg oral tablet) 1 Tablets By Mouth Every day [facility] prescribes Contact prescribing physician if questions or concerns Unchanged polyethylene glycol 3350 (MiraLax) By Mouth Every day Contact prescribing physician if questions or concerns Unchanged polyethylene glycol 3350 with electrolytes (GaviLyte-C) Contact prescribing physician if questions or concerns Unchanged rosuvastatin (rosuvastatin 40 mg Tab) By Mouth Every day Contact prescribing physician if questions or concerns Allergies No Known Medication Allergies Problems Ongoing - Any problem that you are currently receiving treatment for. Generalized abdominal pain History of colon polyps Smoker Straining during bowel movements Patient Survey You may receive a survey via text or e-mail asking about your office visit. Please share your experience with us by completing your survey. We appreciate your feedback and thank you for choosing us for your care. GASTROENTEROLOGY OFFICE/CLIN IC NOTE Observed: 05/14/2024 12:41 PM Status: F Source: [facility] Gastroenterology Office/Clin ic Note Chief Complaint Constipation, abdominal pain. Insurance does not cover Linzess. Patient also has Trulance prescribed by ND. [facility] Staff EST, 73 year old male who presents today for a sick call for complaints of diarrhea and abdominal pain. ND prescribes Trulance. Patient states that before his visit on 05/05/[address] Solorio he was given samples by Dr Velasco of Linzess 290. Patient also states that a few weeks prior to 05/05/24 new patient visit he was at [facility] ER x 2 and was told that he had a bowel blockage and was given 2 enemas. Patient had been taking Linzess [address] Velasco. -Started Linzess 145, patient states that he is now having constipation with overflow. had diarrhea over the week but now backed up again , also takes lactulose Last office visit w/ Dr Solorio 05/05/24 History of present illness Pt with constipation worse when he does not drink enough water pt tried stool softener and Dulcolax and Constulose - every day or other day no blood in stool straining and incomplete evacuation moves it daily Assessment/Plan 1. Constipation (K59.00: Constipation, unspecified) 2. Straining during bowel movements (R19.8: Other specified symptoms and signs involving the digestive system and abdomen) 3. History of colon polyps (Z86.0100: Personal history of colon polyps, unspecified) Stop linaclotide Start Linzess 145 mcg daily Advised to use squatty potty and massage the colon Advised to eat prunes and kiwi fruit Advised to use stool softeners and lactulose to have 1-2 BM daily Review of Systems PHQ Score Initial Depression Screen Score: 0 SCORE All systems reviewed, negative except as mentioned above Physical Exam Vitals & Measurements HR: 60(Peripheral) BP: 112/74 HT: 175 cm HT: 69 in WT: 98.4 kg WT: 216.935 lb BMI: 32.13 I have reviewed HPI staff note, most recent labs and imaging, I agree with the above documentation with the following additions/exceptions : still with issues with constipation on trulance Linzess was not approved on lactulose once a day General: alert, no acute distress HEENT: atraumatic normocephalic Cardiovascular: regular rate and rhythm, normal peripheral perfusion Respiratory: Lungs CTA, respirations non labored Extremities: no deformity, no trauma Abdomen: Benign, soft, tender distended GALEN: spastic anal tone, some pasty stool in the anal verge s/p disimpaction Assessment/Plan 1. Abdominal pain (R10.9: Unspecified abdominal pain) Ordered: Current tobacco non-user 1036F Most recent diastolic blood pressure <80 mm Hg 3078F Systolic BP <130 mm Hg (Most Recent) 3074F XR Abdomen 1 View 2. Diarrhea (R19.7: Diarrhea, unspecified) Ordered: Current tobacco non-user 1036F Most recent diastolic blood pressure <80 mm Hg 3078F Systolic BP <130 mm Hg (Most Recent) 3074F XR Abdomen 1 View 3. Straining during bowel movements (R19.8: Other specified symptoms and signs involving the digestive system and abdomen) Ordered: XR Abdomen 1 View 4. History of colon polyps (Z86.0100: Personal history of colon polyps, unspecified) Ordered: XR Abdomen 1 View 5. Generalized abdominal pain (R10.84: Generalized abdominal pain) Ordered: XR Abdomen 1 View Continue Trulance 3 mg daily Patient was not approved for Linzess Continue bisacodyl 1 tablet every day Patient cannot give himself enemas or suppositories Continue MiraLAX/milk of magnesium titrate to have 1-2 bowel movements every day Continue lactulose once daily Will attempt to get ibsrella or vibrating capsule in the future Attempted to reduce swelling disimpaction in the office. Small amount of stool removed Obtain KUB Follow-up No qualifying data available Problem List/Past Medical History Ongoing Generalized abdominal pain History of colon polyps Smoker Straining during bowel movements Historical No qualifying data Procedure/Surgical History Back, Colonoscopy, Knee, Open heart surgery, Shoulder, Stent. Medications aspirin 81 mg oral capsule, Oral, q24hr Constulose 15 ML BID Dulcolax Stool Softener, Oral, BID GaviLyte-C isosorbide mononitrate 60 mg ER Tab, Oral, qAM Linzess 145 mcg oral capsule, 145 mcg= 1 cap(s), Oral, Daily, 9 refills lisinopril 20 mg Tab, Oral, Daily Metoprolol tartrate 50 mg Tab, Oral, BID MiraLax, Oral, Daily multivitamin rosuvastatin 40 mg Tab, Oral, Daily Trulance 3 mg oral tablet, 3 mg= 1 tab(s), Oral, Daily Vitamin C, Daily Vitamin D3 50 mcg (2000 intl units) oral tablet, disintegrating, Oral, Daily Zyrtec, Daily Allergies No Known Medication Allergies Social History Tobacco Former smoker, quit more than 30 days ago Tobacco Use:. Never Smokeless Tobacco Use:. Cigarettes, 05/14/2024 Family History Family history is negative Result Comment: Electronical ly Signed By: Lyndsey CAMARGO, Hema Shelby\.br\Date and Time Signed: 05/14/24 13:40 EDT AMBULATORY VISIT SUMMARY Observed: 05/05 12:43 PM Status: F Source: [facility] Ambulatory Visit Summary FAHAD SOTELO :1950 Visit Date:05/05/2024 Ambulatory Visit Instructions Your Diagnosis Constipation Straining during bowel movements History of colon polyps Your Care Team Attending Physician - Hema Solorio MD Primary Care Physician - STANTON VELASCO MD This Is Your Medications List linaclotide (Linzess 145 mcg oral capsule) Contact prescribing physician if questions or concerns Non-Formulary Medication (Constulose 15 ML BID) ascorbic acid (Vitamin C) aspirin (aspirin 81 mg oral capsule) cetirizine (Zyrtec) cholecalciferol (Vitamin D3 50 mcg (2000 intl units) oral tablet, disintegrating) docusate (Dulcolax Stool Softener) isosorbide mononitrate (isosorbide mononitrate 60 mg ER Tab) lisinopril (lisinopril 20 mg Tab) metoprolol (Metoprolol tartrate 50 mg Tab) multivitamin polyethylene glycol 3350 with electrolytes (GaviLyte-C) rosuvastatin (rosuvastatin 40 mg Tab) Procedures Performed Back, Knee, Open heart surgery, Shoulder, Stent. Discharge Vitals Heart Rate (Peripheral) 66 Respiratory Rate 14 Blood Pressure 122/70 Height 175 cm Height 69 in Weight 99 kg Weight 218.257 lb BMI 32.33 Medications What How Much When Why Instructions New linaclotide (Linzess 145 mcg oral capsule) 1 Capsules By Mouth Every day Constipation Straining during bowel movements History of colon polyps Refills: 9 Pickup at [facility] Unchanged ascorbic acid (Vitamin C) Every day Contact prescribing physician if questions or concerns Unchanged aspirin (aspirin 81 mg oral capsule) By Mouth Every 24 hours Contact prescribing physician if questions or concerns Unchanged cetirizine (Zyrtec) Every day Contact prescribing physician if questions or concerns Unchanged cholecalciferol (Vitamin D3 50 mcg (2000 intl units) oral tablet, disintegrating) By Mouth Every day Contact prescribing physician if questions or concerns Unchanged docusate (Dulcolax Stool Softener) By Mouth 2 times a day Contact prescribing physician if questions or concerns Unchanged isosorbide mononitrate (isosorbide mononitrate 60 mg ER Tab) By Mouth Once a day (in the morning) Contact prescribing physician if questions or concerns Unchanged lisinopril (lisinopril 20 mg Tab) By Mouth Every day Contact prescribing physician if questions or concerns Unchanged metoprolol (Metoprolol tartrate 50 mg Tab) By Mouth 2 times a day Contact prescribing physician if questions or concerns Unchanged multivitamin Contact prescribing physician if questions or concerns Unchanged Non-Formulary Medication (Constulose 15 ML BID) Contact prescribing physician if questions or concerns Unchanged polyethylene glycol 3350 with electrolytes (GaviLyte-C) Contact prescribing physician if questions or concerns Unchanged rosuvastatin (rosuvastatin 40 mg Tab) By Mouth Every day Contact prescribing physician if questions or concerns Pharmacy Information [facility]: [address] [place], [place] [id number] [phone] Allergies No Known Medication Allergies Problems Ongoing - Any problem that you are currently receiving treatment for. History of colon polyps Smoker Straining during bowel movements Patient Survey You may receive a survey via text or e-mail asking about your office visit. Please share your experience with us by completing your survey. We appreciate your feedback and thank you for choosing us for your care. GASTROENTEROLOGY OFFICE/CLIN IC NOTE Observed: 05/05/2024 12:43 PM Status: F Source: [facility] Gastroenterology Office/Clin ic Note Chief Complaint Ref by Marcin for constipation HPI Staff NEW, 73 year old male who presents today for a referral by Marcin for complaints of constipation. Denies Blood Thinners Denies GLP-1 Agonists -CBC and CMP completed outside 02/2024- normal Constipation: How many BM a day or a week: lately, it's been every other day, with stool softner and Dulcolax and constulose Constant? Or alternate with normal BM or diarrhea: constant. What treatment have you tried before: Trulance 3mg, Linzess 290mcg, miralax, lactulose, docusate, senna and Dulcolax Colonoscopy @ [facility] 10/02/21 Impression: 2 small polyps in the ascending colon, removed with a jumbo cold forceps; resected and retrieved; the colonoscopy was otherwise normal on direct and retroflexion views Pathology: Ascending colon polyp; -colonic mucosa with lymphoid aggregate and minute focus of atypia most compatible with small tubular adenoma Recommendations: Repeat colonoscopy in 5 years Review of Systems PHQ Score Initial Depression Screen Score: 2 SCORE All systems reviewed, negative except as mentioned above Physical Exam Vitals & Measurements HR: 66(Peripheral) RR: 14 BP: 122/70 HT: 175 cm HT: 69 in WT: 218.257 lb WT: 99 kg BMI: 32.33 I have reviewed HPI staff note, most recent labs and imaging, I agree with the above documentation with the following additions/exceptions : Pt with constipation worse when he does not drink enough water pt tried stool softener and Dulcolax and Constulose - every day or other day no blood in stool straining and incomplete evacuation moves it daily General: alert, no acute distress HEENT: atraumatic normocephalic Cardiovascular: regular rate and rhythm, normal peripheral perfusion Respiratory: Lungs CTA, respirations non labored Extremities: no deformity, no trauma Abdomen: Benign, soft, tender nondistended GALEN: spastic anal tone, decreased squeeze pressure Assessment/Plan 1. Constipation (K59.00: Constipation, unspecified) Ordered: linaclotide, 145 mcg = 1 cap(s), Oral, Daily, # 30 cap(s), Refills(s) 9, Pharmacy: [facility], 175, cm, 05/05/24 12:57:00 EDT, Height/Length Dosing, 99, kg, 05/05/24 12:57:00 EDT, Weight Dosing E&M of New Patient Moderate 45-59 Min 32792 2. Straining during bowel movements (R19.8: Other specified symptoms and signs involving the digestive system and abdomen) Ordered: linaclotide, 145 mcg = 1 cap(s), Oral, Daily, # 30 cap(s), Refills(s) 9, Pharmacy: [facility], 175, cm, 05/05/24 12:57:00 EDT, Height/Length Dosing, 99, kg, 05/05/24 12:57:00 EDT, Weight Dosing E&M of New Patient Moderate 45-59 Min 34331 3. History of colon polyps (Z86.0100: Personal history of colon polyps, unspecified) Ordered: linaclotide, 145 mcg = 1 cap(s), Oral, Daily, # 30 cap(s), Refills(s) 9, Pharmacy: [facility], 175, cm, 05/05/24 12:57:00 EDT, Height/Length Dosing, 99, kg, 05/05/24 12:57:00 EDT, Weight Dosing E&M of New Patient Moderate 45-59 Min 85070 Stop linaclotide Start Linzess 145 mcg daily Advised to use squatty potty and massage the colon Advised to eat prunes and kiwi fruit Advised to use stool softeners and lactulose to have 1-2 BM daily Follow-up No qualifying data available Problem List/Past Medical History Ongoing History of colon polyps Smoker Straining during bowel movements Historical No qualifying data Procedure/Surgical History Back, Knee, Open heart surgery, Shoulder, Stent. Medications aspirin 81 mg oral capsule, Oral, q24hr Constulose 15 ML BID Dulcolax Stool Softener, Oral, BID GaviLyte-C isosorbide mononitrate 60 mg ER Tab, Oral, qAM Linzess 145 mcg oral capsule, 145 mcg= 1 cap(s), Oral, Daily, 9 refills lisinopril 20 mg Tab, Oral, Daily Metoprolol tartrate 50 mg Tab, Oral, BID multivitamin rosuvastatin 40 mg Tab, Oral, Daily Vitamin C, Daily Vitamin D3 50 mcg (2000 intl units) oral tablet, disintegrating, Oral, Daily Zyrtec, Daily Allergies No Known Medication Allergies Social History Tobacco Smoker, current status unknown Tobacco Use:., 05/05/2024 Family History Family history is negative Result Comment: Electronical ly Signed By: Lyndsey CAMARGO, Hema Appiah.br\Date and Time Signed: 05/05/24 13:18 EDT PROGRESS Observed: 04/11/2024 3:49 PM Status: COMPLETED Source: [facility] HNO ID: [id number] Author: CHRIS CLEMENTS MD Service: ? Author Type: Physician Type: Progress Notes Filed: 04/11/2024 15:58 Note Text: Established patient returns with intermittent right groin pain. On repeat examination today with Valsalva Hernandez scrotal palpation a very small hernia is evidenced. Palpation of the internal ring reproduces his pain as well as the small bulge in this location. Has been struggling with constipation lately and that makes his right groin pain worse. He plans to work with GI with this and has consultation pending. I would like him to return to discuss right inguinal hernia. This is not an urgent matter hernia truss can be used at this time for comfort. Red flag signs and symptoms of emergent problem are discussed he does not appear to be threatened by this problem at this time at all. He is amenable to surgical repair and will return for discussion CNOV Observed: 04/11/2024 1:30 PM Status: COMPLETED Source: [facility] Office Visit (GENSAV) FAHAD SOTELO ([id number]) 1950 M Date Time Provider Department 04/11/24 1:30 PM CHRIS CLEMENTS During your visit today, we recorded the following information about you: Chris Clements MD 04/11/2024 3:58 PM Signed Established patient returns with intermittent right groin pain. On repeat examination today with Valsalva Hernandez scrotal palpation a very small hernia is evidenced. Palpation of the internal ring reproduces his pain as well as the small bulge in this location. Has been struggling with constipation lately and that makes his right groin pain worse. He plans to work with GI with this and has consultation pending. I would like him to return to discuss right inguinal hernia. This is not an urgent matter hernia truss can be used at this time for comfort. Red flag signs and symptoms of emergent problem are discussed he does not appear to be threatened by this problem at this time at all. He is amenable to surgical repair and will return for discussion Allergies As of Date: 04/11/2024 Noted Allergy Reaction BEE POLLEN 01/30/2014 7 [...] Comments Comments: Other Reaction(s): Xerostomia Date Reviewed: 04/11/2024 Reviewed by: Chris Clements MD - Fully Assessed Reason for Visit: Follow Up [171] Cmt: Groin pain Primary Visit Diagnosis:Unilateral groin pain [R10.30] Prescriptions as of 04/11/2024 - trospium (SANCTURA) 20 mg tablet Take 1 tablet by mouth two times a day. - plecanatide (TRULANCE) 3 mg tablet Take 1 tablet by mouth once daily. - nitroglycerin sublingual (NITROQUICK) 0.4 mg SL tablet - Amoxicillin 500 mg tablet TAKE 4 [...] once daily. Problem List As Of Date 04/11/2024 Noted Resolved Shoulder weakness [R29.898] 03/12/2017 Brachial [...] shoulder*04/12/2021 Encounter Status:Closed by CHRIS CLEMENTS on 04/11/24 NOHELIA Observed: 03/17/2024 12:00 AM Status: COMPLETED Source: [facility] Telephone (MARILY) FAHAD SOTELO ([id number]) 1950 M Date Time Provider Department 03/17/24 FADY DYE During your visit today, we recorded the following information about you: Luzma Scott 03/17/2024 9:17 AM Signed Orders faxed to [facility] [phone] Allergies As of Date: 03/17/2024 Noted Allergy [...] Encounter Status:Closed by LUZMA SCOTT on 03/17/24 PROGRESS Observed: 02/26/2024 3:14 PM Status: COMPLETED Source: [facility] HNO ID: [id number] Author: CHRIS CLEMENTS MD Service: ? Author Type: Physician Type: Progress Notes Filed: 02/26/2024 15:16 Note Text: Patient is referred by Stanton Velasco II, MD with recent right groin pain. A copy of dictation with recommendations to above by Mode De [facility] record US mail. No prior groin or [...] have discomfort and no hernia diagnosed clinically CNOV Observed: 02/26/2024 1:45 PM Status: COMPLETED Source: [facility] Office Visit (GENSAV) FAHAD SOTELO ([id number]) 1950 M Date Time Provider Department 02/26/24 1:45 PM CHRIS CLEMENTS GENSAV During your visit today, we recorded the following information about you: Pulse Blood pressure Weight Height 57/minute 111/70 99.8 kg 1.765 m Chris Clements MD 02/26/2024 3:16 PM Signed Patient is referred by Stanton Velasco II, MD with recent right groin pain. A copy of dictation with recommendations to above by Mode De [employer] record US mail. No prior groin or [...] hernia diagnosed clinically Referring Provider: FADY DYE [[id number]] Allergies As of Date: 02/26/2024 Noted Allergy [...] groin pain [R10.30] Order(s):CONSULT TO GENERAL SURGERY [4490] Order #: [id number]: 1 Prescriptions as of 02/26/2024 - trospium [...] Encounter Status:Closed by CHRIS CLEMENTS on 02/26/24 CNPN Observed: 02/25/2024 12:00 AM Status: COMPLETED Source: [facility] Telephone (UROLAV) FAHAD SOTELO ([id number]) 1950 M Date Time Provider Department 02/25/24 FADY DYE UROESAU During your visit today, we recorded the following information about you: Rachel Palencia MA 02/25/2024 4:43 PM Signed We received a fax from [employer], [employer]. I have the form, from [place], in Dr. Dye's work bin. We will need Dr. Dye's signature and date signed on the form. When I spoke with the Pt he said he will be getting his cath supplies from [facility]. [employer] is there sister store owned by [facility]. Rachel Palencia MA 02/28/2024 3:09 PM Signed Form faxed to: [phone]. Transmitted OK - Confirmation Received. We will hold onto the paperwork in our hold for two (2) week bin. Afterwards, it will be sent to [facility] for scanning into the pt's chart. Luzma Scott 03/04/2024 11:43 AM Signed Patient states that he spoke with [facility] and they stated that a medical necessity form needs to be filled out. Shameka Vincent 03/07/2024 11:39 AM Signed Joseline from patients insurance calling stating the patient is trying to get his cath supplies and [employer] need the medical necessity forms sent to them. Please update patient. Nithya Rhodes PA-C 03/07/2024 12:10 PM Signed Medical necessity form? Not sure what they are referring to but in Dr aragon's note it does have the indication of why coude is needed. If you need anything from me let me know - otherwise id fax his office note Kiesha Martínez MA 03/07/2024 2:52 PM Signed Received form [...] Xerostomia Date Reviewed: 01/17/2024 Reviewed by: Aislinn Diggs RN - Fully Assessed Reason for Visit: Fax Received - [facility] [Other] Prescriptions as of 03/07/2024 - [...] Encounter Status:Closed by RACHEL PALENCIA on 02/28/24 NOHELIA Observed: 02/22/2024 12:00 AM Status: COMPLETED Source: [facility] Telephone (MARILY) FAHAD SOTELO ([id number]) 1950 M Date Time Provider Department 02/22/24 FADY DYE During your visit today, we recorded the following information about you: Luzma Scott 02/22/2024 10:42 AM Signed Faxed orders for catheter supplies to [phone] Allergies As of Date: 02/22/2024 Noted Allergy [...] Xerostomia Date Reviewed: 01/17/2024 Reviewed by: Aislinn Diggs RN - Fully Assessed 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 Author Type: Physician Type: Progress Notes Filed: 03/06/2024 14:11 Note Text: [facility] Virtual Visit Patient Visit: This Team Access Model visit is a virtual encounter. It required patient-provider interaction for the medical decision making as documented below. I have communicated my name and active licensure. The patient's identity and physical location were verified at the time of this visit. Either the patient or their legal insurance claims representative has been informed of the risks and [...] Diagnosis Date CAD (coronary artery disease) 2005 [place] in 1997. Had a stent placed in [...] CYSTOSCOPY 03/29/2017 Dr. Fady Dye - [facility] LEFT HEART CATH,PERCUTANEOUS 05/11/2003 Cardiac cath, [...] done by Nava Back LPN, [facility] Current Outpatient Medications on [...] Surge eval - [facility]. Incomplete bladder emptying - ICD9: 788.21, [...] with more than 50% of the total [id number] time of the visit in counseling / coordination of care. Fady Dye MD [facility] Lenora fax: CNPN Observed: 02/18/2024 12:00 AM Status: COMPLETED Source: [facility] Telephone (UROLMN) FAHAD SOTELO ([id number]) 1950 M Date Time Provider Department 02/18/24 [...] today, catheters ordered and faxed electronically to [address] [place] [address]. Aislinn Montalvo RN BSN Allergies As of [...] Xerostomia Date Reviewed: 01/17/2024 Reviewed by: Aislinn Diggs RN - Fully Assessed Reason for Visit: [...] Encounter Status:Closed by LUZMA SCOTT on 02/18/24 NOHELIA Observed: 02/18/2024 12:00 AM Status: COMPLETED Source: [facility] Telephone (URSolutionaryOB) FAHAD SOTELO ([id number]) 1950 M Date Time Provider Department 02/18/24 LOUIE SALOMON URLISSET During your visit today, we recorded the following information about you: Sourav Carias 02/18/2024 10:40 AM Signed Patient is calling into the office. He is requesting caths. He states that he needs 16F. Please assist, thank you Sheree Perdomo RN 02/20/2024 9:26 AM Signed Letter sent to [address] [place] [address] on 02/18/[address] Mejia office. Sheree [...] Xerostomia Date Reviewed: 01/17/2024 Reviewed by: Aislinn Diggs RN - Fully Assessed Reason for Visit: [...] of right shoulder*04/12/2021 Encounter Status:Closed by SOURAV CARIAS on 02/19/24 LIPID PANEL, STANDARD Collected: 2024 10:13 AM Status: F Source: [employer] Order Comment: FASTING:YES FASTING: YES TYPE CODE TESTS RESULT OUT OF RANGE REFERENCE UNITS LAB [id number] CHOLESTEROL, TOTAL 129 Normal <200 mg/dL LAB [id number] HDL CHOLESTEROL 43 Normal > OR = 40 mg/dL LAB [id number] TRIGLYCERIDES 97 Normal <150 mg/dL LAB [id number] LDL-CHOLESTEROL 68 Normal mg/dL (calc) Result Comment: Reference ra nge: <100 Desirable range <100 mg/dL for primary prevention; <70 mg/dL for patients with CHD or diabetic patients with > or = 2 CHD risk factors. LDL-C is now calculated using the Talha-Winnie calculation, which is a validated novel method providing better accuracy than the Friedewald equation in the estimation of LDL-C. Talha SS et al. MANPREET. 2013;310(19): 2629-8797 (http://education.[employer]Hashtrack/faq/KIO172) LAB [id number] CHOL/HDLC RATIO 3.0 Normal <5.0 (calc) LAB [id number] NON HDL CHOLESTEROL 86 Normal <130 mg/dL (calc) Result Comment: For patients with diabetes plus 1 major ASCVD risk factor, treating to a non-HDL-C goal of <100 mg/dL (LDL-C of <70 mg/dL) is considered a therapeutic option. Performed By: #### 7600, 102 88, 3334 #### [facility] [address], [address] [place] [address] Gaming Pit Boss: Nathanael Nguyen MD COMPREHENSIVE METABOLIC PANEL Collected : 02/15/2024 10:13 AM Status: F Source: [employer] TYPE CODE TESTS RESULT OUT OF RANGE REFERENCE UNITS LAB [id number] GLUCOSE 107 High 65-99 mg/dL Result Comment: Fasting reference interval For someone without known diabetes, a glucose value between 100 and 125 mg/dL is consistent with prediabetes and should be confirmed with a follow-up test. LAB [id number] UREA NITROGEN (BUN) 13 Normal 7-25 mg/dL LAB [id number] CREATININE 0.75 Normal 0.70-1.28 mg/dL LAB [id number] EGFR 94 Normal > OR = 60 mL/min/1 .73m2 LAB [id number] BUN/CREATININE RATIO SEE NOTE: 08-03 (calc) Result Comment: Not Reporte d: BUN and Creatinine are within reference range. LAB [id number] SODIUM 140 Normal 135-146 mmol/L LAB [id number] POTASSIUM 4.3 Normal 3.5-5.3 mmol/L LAB [id number] CHLORIDE 103 Normal 98-110 mmol/L LAB [id number] CARBON DIOXIDE 31 Normal 20-32 mmol/L LAB [id number] CALCIUM 9.0 Normal 8.6-10.3 mg/dL LAB [id number] PROTEIN, TOTAL 6.5 Normal 6.1-8.1 g/dL LAB [id number] ALBUMIN 4.3 Normal 3.6-5.1 g/dL LAB [id number] GLOBULIN 2.2 Normal 1.9-3.7 g/dL (calc) LAB [id number] ALBUMIN/GLOBUL IN RATIO 2.0 Normal 1.0-2.5 (calc) LAB [id number] BILIRUBIN, TOTAL 0.7 Normal 0.2-1.2 mg/dL LAB [id number] ALKALINE PHOSPHATASE 58 Normal 35-144 U/L LAB [id number] AST 13 Normal 10-35 U/L LAB [id number] ALT 14 Normal 9-46 U/L Performed By: #### 7600, 102 62, 6175 #### [facility] [address], [address] [place] [address] Gaming Pit Boss: Nathanael Nguyen MD CBC (INCLUDES DIFF/PLT) Collected: 04/2024 10:13 AM Status: F Source: [employer] TYPE CODE TESTS RESULT OUT OF RANGE REFERENCE UNITS LAB [id number] WHITE BLOOD CELL COUNT 6.5 Normal 3.8-10.8 Thousand /uL LAB [id number] RED BLOOD CELL COUNT 5.19 Normal 4.20-5.80 Million/ uL LAB [id number] HEMOGLOBIN 16.1 Normal 13.2-17.1 g/dL LAB [id number] HEMATOCRIT 47.9 Normal 38.5-50.0 % LAB [id number] MCV 92.3 Normal 80.0-100.0 fL LAB [id number] MCH 31.0 Normal 27.0-33.0 pg LAB [id number] MCHC 33.6 Normal 32.0-36.0 g/dL Result Comment: For adults, a slight decrease in the calculated MCHC value (in the range of 30 to 32 g/dL) is most likely not clinically significant; however, it should be interpreted with caution in correlation with other red cell parameters and the patient's clinical condition. LAB [id number] RDW 11.8 Normal 11.0-15.0 % LAB [id number] PLATELET COUNT 201 Normal 140-400 Thousand /uL LAB [id number] MPV 10.7 Normal 7.5-12.5 fL LAB [id number] ABSOLUTE NEUTROPHILS 3939 Normal 7027-9295 cells/uL LAB [id number] ABSOLUTE LYMPHOCYTES 1892 Normal 850-3900 cells/uL LAB [id number] ABSOLUTE MONOCYTES 585 Normal 200-950 cells/uL LAB [id number] ABSOLUTE EOSINOPHILS 52 Normal 15-500 cells/uL LAB [id number] ABSOLUTE BASOPHILS 33 Normal 0-200 cells/uL LAB [id number] NEUTROPHILS 60.6 Normal % LAB [id number] LYMPHOCYTES 29.1 Normal % LAB [id number] MONOCYTES 9.0 Normal % LAB 71626093 EOSINOPHILS 0.8 Normal % LAB [id number] BASOPHILS 0.5 Normal % Performed By: #### 0180, 102 43, 0983 #### [employer] [address], [address] [place] [address] Gaming Pit Boss: Nathanael Nguyen MD PSA, TOTAL Collected: 5 10:13 AM Status: F Source: [employer] TYPE CODE TESTS RESULT OUT OF RANGE REFERENCE UNITS LAB [id number] PSA, TOTAL 0.34 Normal < OR = 4.00 ng/mL Result Comment: The total PS A value from this assay system is standardized against the WHO standard. The test result will be approximately 20% lower when compared to the equimolar-standardized total PSA (Laurel Desire). Comparison of serial PSA results should be interpreted with this fact in mind. This test was performed using the Siemens chemiluminescent method. Values obtained from different assay methods cannot be used interchangeably. PSA levels, regardless of value, should not be interpreted as absolute evidence of the presence or absence of disease. Performed By: #### 3020, 102 31, 3399 #### [facility] [address], [address] [place] [address] Gaming Pit Boss: Nathanael Nguyen MD URINE CULTURE Observed: 01/25/2024 3:50 PM Status: F Source: [facility] 25,000 colonies/ml mixed bacterial skin contaminants 2 Days PERFORMED BY: [facility] [address] [place] [address] PATHOLOGIST TIRE CARE MANAGER JENNI GREEN M.D. Performed By: #### CUU #### [address] CNOV Observed: 01/17/2024 2:00 PM Status: COMPLETED Source: [facility] Office Visit (UROLAV) FAHAD SOTELO ([id number]) 1950 M Date Time Provider Department 01/17/24 [...] Diagnosis Date CAD (coronary artery disease) 2005 [place] in 1997. Had a stent placed in 2008 c/b coronary artery dissection and that lead to a CABG x1 in 2008 Former smoker quit 1997 Hyperlipidemia Hypertension Intermittent self-catheterization of bladder Urge incontinence of urine PAST SURGICAL HISTORY Procedure Laterality Date ARTHRP KNE CONDYLEANDPLATU MEDIALANDLAT COMPARTMENTS 10/30/2018 right CABG (1) VEIN GRAFT AND ARTERIAL GRAFT 2008 coronary dissection during stent placement CHEMODNRVTJ [facility] INNERVATED FACIAL NRV UNIL CYSTO.PANENDO 11/24/2021 Dr. Dye CYSTO.PANENDO 05/31/2022 CYSTO.PANENDO N/A 06/04/2023 CYSTOSCOPY 03/29/2017 Dr. Fady Dye - [facility] LEFT HEART CATH,PERCUTANEOUS 05/11/2003 [...] done by Nava Back LPN, [facility] Social History Tobacco Use [...] which included preparing to see the patient, [id number] patient care, completing clinical documentation, obtaining and/or reviewing separately obtained history, counseling and educating the patient/family/caregiver, and ordering medications, tests, or procedures. Fady Dye MD Allergies As of Date: 01/17/2024 Noted Allergy Reaction BEE POLLEN 01/30/2014 7 [...] Xerostomia Date Reviewed: 01/17/2024 Reviewed by: Aislinn Diggs RN - Fully Assessed Reason for Visit: Established Patient [175] Cmt: Follow up OAB Primary Visit Diagnosis:Urinary frequency [R35.0] Other Visit Diagnoses:Urgency of urination [R39.15] Incomplete bladder emptying [R33.9] Prescriptions as of 01/17/2024 - trospium (SANCTURA) 20 mg tablet Take [...] once daily. Problem List As Of Date 01/17/2024 Noted Resolved Shoulder weakness [R29.898] 03/12/2017 Brachial [...] arthropathy of right shoulder*04/12/2021 Encounter Status:Closed by FADY DYE on 01/17/24 PROGRESS Observed: 01/17/2024 1:49 PM Status: COMPLETED Source: [facility] HNO ID: [id number] Author: FADY DYE MD Service: ? Author [...] Diagnosis Date CAD (coronary artery disease) 2004 OK in 1997. Had a stent placed in [...] CYSTOSCOPY 03/29/2017 Dr. Fady Dye - [facility] LEFT HEART CATH,PERCUTANEOUS 05/11/2003 Cardiac cath, [...] done by Nava Back LPN, [facility] Social History Tobacco Use [...] which included preparing to see the patient, [id number] patient care, completing clinical documentation, obtaining and/or reviewing separately obtained history, counseling and educating the patient/family/caregiver, and ordering medications, tests, or procedures. Fady Dye MD CNPN Observed: 12/14/2023 12:00 AM Status: COMPLETED Source: [facility] Telephone (UROLMN) FAHAD SOTELO ([id number]) 1950 M Date Time Provider Department 12/14/23 DAIJA LARES During your visit today, we recorded the following information about you: Daija Lares PA-C 12/14/2023 3:31 PM Signed Fahad Sotelo [id number] Called patient re: recent urine culture with [...] Reaction(s): Xerostomia Date Reviewed: 12/12/2023 Reviewed by: Laila Teran LPN - Fully Assessed Reason for Visit: Results [95] Prescriptions as of 12/14/2023 - sulfamethoxazole-trimethoprim (BACTRIM DS) 800-160 mg per tablet Take [...] Encounter Status:Closed by DAIJA LARES on 12/14/23 BACTERIA UR CULT Observed: 12/12/2023 1:56 PM Status: F Source: [facility] ORGANISM ID: 1 >=100,000 CFU/ml Escherichia coli ORGANISM ID: 1 (ESCHERICHIA COLI) ----- ----- ANTIBIOTIC INTERPRETATION RL STATUS REFERENCE RANGE ----- ----- Ampicillin S <=2 F Susceptible <=8 , [...] <=32 , Intermediate >32 , Resistant >64 Performed By: #### 630-4 ### # [facility] CLIA [id number] [address] [place] [address] [place] PROGRESS Observed: 12/12/2023 1:31 PM Status: COMPLETED Source: [facility] HNO ID: [id number] Author: LOUIE SALOMON MD Service: ? Author [...] Diagnosis Date CAD (coronary artery disease) 2005 [place] in 1997. Had a stent placed in 2008 c/b coronary artery dissection and that lead to a CABG x1 in 2008 Former smoker quit 1997 Hyperlipidemia Hypertension Intermittent self-catheterization of bladder Urge incontinence of urine PAST SURGICAL HISTORY Procedure Laterality Date ARTHRP KNE CONDYLEANDPLATU MEDIALANDLAT COMPARTMENTS 10/30/2018 right CABG (1) VEIN GRAFT AND ARTERIAL GRAFT 2009 coronary dissection during stent placement CHEMODNRVTJ [facility] INNERVATED FACIAL NRV UNIL CYSTO.PANENDO 11/24/2021 Dr. Dye CYSTO.PANENDO 05/31/2022 CYSTO.PANENDO N/A 06/04/2023 CYSTOSCOPY 03/29/2017 Dr. Fady Dye - [facility] LEFT HEART CATH,PERCUTANEOUS 05/11/2003 [...] done by Nava Back LPN, [facility] Social History Tobacco Use [...] stricture, urinary retention Three times a day CNOV Observed: 12/12/2023 1:30 PM Status: COMPLETED Source: [facility] Office Visit (URFMOB) FAHAD SOTELO ([id number]) 1950 M Date Time Provider Department 12/12/23 1:30 PM LOUIE SALOMON During your visit today, we recorded the following information about you: Pulse Blood pressure 63/minute 130/72 Laila Teran LPN 12/12/2023 1:23 PM Signed Post [...] Diagnosis Date CAD (coronary artery disease) 2005 [place] in 1997. Had a stent placed in [...] 03/29/2017 Dr. Fady Dye - [facility] LEFT HEART CATH,PERCUTANEOUS 05/11/2003 [...] done by Nava Back LPN, [facility] Social History Tobacco Use [...] stricture, urinary retention Three times a day Louie Salomon MD 12/12/2023 1:49 PM Signed Today we discuss neuromodulation for overactive bladder with something like an interstim device. I can set you up to talk to Dr Dye to discuss this. That would not fix your stricture but if it improved your bladder function we could fix the stricture separately. 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 #:[id number] URINE CULTURE [SQURCUL] Order #: [id number]. #:[id number] Prescriptions as of 12/13/2023 - trospium (SANCTURA) 20 mg tablet Take [...] once daily. Problem List As Of Date 12/12/2023 Noted Resolved Shoulder weakness [R29.898] 03/12/2017 Brachial [...] Rotator cuff tear arthropathy of right shoulder*04/12/2021 Other instructions from your clinician: Today we discuss neuromodulation for overactive bladder with something like an interstim device. I can set you up to talk to Dr Dye to discuss this. That would not fix your stricture but if it improved your bladder function we could fix the stricture separately. Visit Notes: >> Laila Teran LPN SunDec 12, 2023 1:19 PM Status: Signed Post Void Residual done on patient with 110 cc residual volume remaining. MD notified. Laila Teran LPN Encounter Status:Closed by LOUIE SALOMON on 12/12/23 NAVEENN Observed: 11/13/2023 12:00 AM Status: COMPLETED Source: [facility] Telephone (UROLMN) FAHAD SOTELO ([id number]) 1950 M Date Time Provider Department 11/13/23 LOUIE SALOMON URORASHID During your visit today, we recorded the following information about you: Luzma Scott 11/13/2023 9:31 AM Signed Pt states that he has had difficulty urinating the past couple days. He say he has to hold his breath and push out the urine. Also states he is having difficulty with cathing as well. Daija Lares PA-C 11/13/2023 10:49 AM Signed Fahad Sotelo [id number] Returned call to patient. Got up 7 [...] Xerostomia Date Reviewed: 08/31/2023 Reviewed by: Martha Ruggiero RN - Fully Assessed Reason for Visit: [...] Encounter Status:Closed by [facility]: 09/11/2023 12:00 AM Status: COMPLETED Source: [facility] Telephone ([facility] FAHAD SOTELO ([id number]) 1950 M Date Time Provider Department 09/11/23 LOUIE SALOMON URODanelle During your visit today, we recorded the [...] Xerostomia Date Reviewed: 08/31/2023 Reviewed by: Martha Ruggiero, LEATHA - Fully Assessed Order(s):trospium (SANCTURA) 20 mg [...] Encounter Status:Closed by LOUIE SALOMON on 09/11/23 PROGRESS Observed: 08/31/2023 3:18 PM Status: COMPLETED Source: [facility] HNO ID: [id number] Author: LOUIE SALOMON MD Service: ? Author Type: Physician Type: Progress Notes Filed: 08/31/2023 15:19 Note Text: UDS interpretation 300mls capacity Lots of pabd activity Strong desire at 270, No obvious DO or rise in pdet with permission to void Normal compliance Cathed for 300 CNNURSE Observed: 08/31/2023 11:00 AM Status: COMPLETED Source: [facility] Nurse Visit (UROSMN) FAHAD SOTELO ([id number]) 1950 M Date Time Provider Department 08/31/23 11:00 AM [facility]ICS UROSMN During your visit today, we recorded the following information about you: Martha Ruggiero RN 08/31/2023 11:21 AM Signed [facility] UR[facility] LAB URODYNAMIC PROCEDURE NOTE ID Verified by: Martha Ruggiero RN with name and birthdate. Procedure instructions [...] Cathed for 300 Referring Provider: LOUIE SALOMON [[id number]] Allergies As of Date: 08/31/2023 Noted Allergy [...] Xerostomia Date Reviewed: 08/31/2023 Reviewed by: Martha Ruggiero RN - Fully Assessed Reason for Visit: [...] arthropathy of right shoulder*04/12/2021 Visit Notes: >> Martha Ruggiero RN Fri Aug 31, 2023 11:14 AM Status: Signed [facility] UR[facility] LAB URODYNAMIC PROCEDURE NOTE ID Verified by: Martha Ruggiero RN with name and birthdate. Procedure instructions [...] states an understanding of instructions given. Martha Ruggiero RN Encounter Status:Closed by MARTHA RUGGIERO on 08/31/[address] [facility] Observed: 08/31/2023 12:00 AM Status: COMPLETED Source: [facility] Telephone (UROSMN) FAHAD SOTELO ([id number]) 1950 M Date Time Provider Department 08/31/23 LOUIE SALOMON UROSMN During your visit today, we recorded [...] Xerostomia Date Reviewed: 08/31/2023 Reviewed by: Martha Ruggiero, LEATHA - Fully Assessed Prescriptions as of 08/31/2023 [...] Encounter Status:Closed by LOUIE SALOMON on 08/31/23 ALLERGIES DATE TYPE / CODE NAME / CODE REACTION SEVERITY SOURCE 04/12/2021 Environ/12194 4007(SNOMED CT) SEASONAL ALLERGIES OTHER: SEE C Chilel [facility] 01/02/2019 Environ/54585 4006(SNOMED CT) BEE STING SWELLING [facility] 12/30/2018 DRUG INGREDI/13335 1003(SNOMED CT) BEE VENOM PROTEIN (HONEY BEE) Unknown~Swelling [facility] 12/30/2018 DRUG INGREDI/99010 1003(SNOMED CT) VENOM-HONEY BEE OTHER: SEE Sonny [facility] 03/31/2014 DRUG INGREDI/40339 1003(SNOMED CT) TROSPIUM Unknown Low [facility] 03/31/2014 DRUG INGREDI/68765 1003(SNOMED CT) TROSPIUM OTHER: SEE Sonny [facility] 01/30/2014 DRUG INGREDI/86341 1003(SNOMED CT) BEE POLLEN Other~Swelling [facility] 01/30/2014 DRUG INGREDI/35792 1003(SNOMED CT) BEE POLLEN SWELLING [facility] 06/20/2013 DRUG INGREDI/18644 1003(SNOMED CT) OXYBUTYNIN Unknown [facility] 06/20/2013 DRUG INGREDI/88367 1003(SNOMED CT) OXYBUTYNIN OTHER: SEE Sonny [facility] /084014947( SNOMED CT) No Known Medication Allergies [facility] ENCOUNTERS ADMIT/DISCHARGE ACCOUNT NUMBER ADMITTING ENCOUNTER CLASS LOCATION SOURCE 06/30/2024/07/01/19 [id number] [id number] 05/21/2024/05/22/19 25 [id number] Ambulatory Building:[facility] 05/14/2024/05/16/19 [id number] Hema Solorio Ambulatory FTBuilding :FT [facility] 05/14/2024/05/15/19 25 [id number] [facility]:[id number] [facility] 05/09/2024 [id number] [facility] 05/05/2024/05/06/19 25 [id number] [facility]:[id number] [facility] 04/16/2024/04/17/19 25 [id number] Ambulatory Building:[facility] 04/11/2024/04/11/19 25 [id number] Ambulatory [facility] HospitalBuil ding:GSDEMARCUS [facility] 04/03/2024/04/03/19 25 [id number] Ambulatory Building:[facility] 03/07/2024/03/07/19 25 [id number] Ambulatory Building:[facility] 02/26/2024/02/25/19 25 [id number] Ambulatory [facility] HospitalBuil ding:GSDEMARCUS [facility] 02/18/2024/02/17/19 25 [id number] Ambulatory [facility] HospitalBuil ding:UROL [facility] 02/15/2024/02/14/19 25 [id number] Ambulatory Building:[facility] 01/25/2024/01/25/20 24 [id number] [facility] 01/17/2024/01/17/20 24 [id number] Ambulatory [facility] HospitalBuil ding:URDEMARCUS [facility] 12/12/2023/12/12/19 24 [id number] [facility]UG[facility]IS[facility] 11/02/2023/11/02/19 24 [id number] Ambulatory Building:[facility] 08/31/2023/08/31/19 24 [id number] Ambulatory [facility] HospitalBuil ding:UROS [facility] PAYERS ENCOUNTER GUARANTOR PAYER SUBSCRIBER SOURCE 06/30/2024 FAHAD WHEAT: [id number] Natividad BARBOZA [facility]: ~(90 9 (HP) Primary Insurance:[facility]UEPol[facility] Number: [id number] Date:7190-92-07VH[address] [address]EA: FAHAD A MCGIRTUNK [facility] 05/21/2024 Primary Insurance:MEDICAL MUTUAL MEDICAREPolicy Number: [id number] Date:2024-02-13 FAHAD Moore ZENIAB: [id number] [place] [address] [facility] 05/14/2024 FAHAD KATSCOTTIEDOB: E [address]UCKEY[address] STTel: ~(32 [phone] (HP) Primary Insurance:MEDICAL MUTUALPolicy Number: [id number] Date:6159-52-30GU [address] [place] [phone]: [facility] 05/14/2024 FAHAD KATSCOTTIEDOB: [id number] [address] STTel: ~(61 [phone] (HP) Primary Insurance:MEDICAL MUTUALPolicy Number: [id number] Date:1604-99-31WD [address] [place] [phone]: FAHAD Moore [facility] 05/05/2024 FAHAD KATMEÑOB: [id number] [address] STTel: (HP) Primary Insurance:MEDICAL MUTUALPolicy Number: [id number] Date:1331-73-42XN [address] [place] [phone]: [facility] 04/16/2024 FAHAD A ZENIAB: [place] [address]Ial: (HP) Primary Insurance:MEDICAL MUTUAL MEDICAREPolicy Number: [id number] Date:2024-02-13 FAHAD Teresa MARY ALICE: [id number] [place] [address] [facility] 04/11/2024 Primary Insuranc e:MMO MEDADVANTAGE OPolicy Number: [id number] Date:1083-33-00Aeyb Name:Danelle WHEAT: [id number] [place] [address] [facility] 04/11/2024 Secondary Insurance:[facility]Policy Number: [id number] Date:9962-80-11Lobq Name:Sonny WHEAT: [id number] [place] [address] [facility] 04/03/2024 FAHAD WHEAT: [place] [address]Xgf: () Primary Insurance:MEDICAL MUTUAL MEDICAREPolicy Number: [id number] Date:2024-02-13 FAHAD WHEAT: [id number] [place] [address] [facility] 03/07/2024 FAHAD WHEAT: [place] [address]Dtp: (HP) Primary Insurance:MEDICAL MUTUAL MEDICAREPolicy Number: [id number] Date:2024-02-13 FAHAD HWEAT: [id number] [place] [address] [facility] 02/26/2024 Primary Insuranc e:MMO MEDADVANTAGE OPolicy Number: [id number] Date:0651-58-42Kftr Name:Danelle WHEAT: [id number] [place] [address] [facility] 02/26/2024 Secondary Insurance:[facility]ITALPolicy Number: [id number] Date:3936-80-81Xtcp Name:Sonny WHEAT: [id number] [place] [address] [facility] 02/18/2024 Primary Insurance:[address] Number: [id number] Date:5196-42-48Rwbu Name:Sonny Moore AMANDADOB: [id number] [place] [address] [facility] 02/18/2024 Secondary Insurance:[facility] MEDADATRIUM HEALTH CABARRUSOPolicy Number: [id number] Date:8060-84-35Amry Name:Danelle FAHAD Moore ZENIAB: [id number] [place] [address] [facility] 02/15/2024 FAHAD A ZENIAB: [place] [address]Lmt: () Primary Insurance:MEDICAL MUTUAL MEDICAREPolicy Number: [id number] Date:2024-02-13 FAHAD Moore ZENIAB: [id number] [place] [address] [facility] 01/17/2024 Primary Insurance[facility] Center[facility] Number: [id number] Date:3635-83-65Hrca Name:Danelle Moore ZENIAB: [id number] [place] [address] [facility] 01/17/2024 Secondary Insurance:[address] Number: [id number] Date:3226-17-38Aqxh Name:Sonny Moore ZENIAB: [id number] [place] [address] [facility] 12/12/2023 Primary Insurance:[facility] Number: [id number] Date:8872-88-33Axlk Name:Danelle LÓPEZDominique Moore ZENIAB: [id number] [place] [address] [facility] 12/12/2023 Secondary Insurance:MEDICO 2NDPolicy Number: [id number] Date:0187-33-84Qhmr Name:Sonny WHEAT: [id number] [place] [address] [facility] 11/02/2023 FAHAD WHEAT: [id number] [place] [address]Dyh: () Primary Insurance:DEVOTED HEALTHPolicy Number: [id number] Date:2021-02-12 FAHAD WHEAT: [id number] [place] [address] [facility] 08/31/2023 Primary Insurance:[facility] Number: [id number] Date:[id number] Name:Danelle WHEAT: [id number] [place] [address] [facility] 08/31/2023 Secondary Insurance:MEDICO [id number] Number: [id number] Date:[id number] Name:Sonny WHEAT: [id number] [place] [address] [facility]
--- NOTE | 2024-08-18 | XR_ITS ---
[facility] [place] [id number] Patient Name: CHELSEA PATEL MRN: [id number] date: 1950 Sex: M Assigned Patient Location: [facility] Current Patient Location: [facility] Accession/Order Number: [id number] Exam Date: 08/18/2024 16:43 Report Date: 08/18/2024 16:47 At the request of: JAMES SEQUEIRA Procedure: XR shoulder RT min 2V 3 views right shoulder plain film HISTORY: Acute right shoulder pain. Fell. COMPARISON: 03/31/2024 acute abdominal series ACUTE FINDINGS: Mildly comminuted fracture of the distal clavicle. Acromioclavicular spurring. DEGENERATIVE CHANGE: Unremarkable SOFT TISSUE FINDINGS: Unremarkable JOINT EFFUSION: None POSTOP CHANGES: Right shoulder arthroplasty without hardware failure. Bony density inferior to the shoulder arthroplasty. May represent remote postsurgical change. May consider myositis ossificans/heterotopic bone. Old right rib fractures. BONY MINERALIZATION: Adequate XR/XR shoulder RT min 2V IMPRESSION: Concern for acute fracture of the distal right clavicle. Impression dictated by: Daniel Morgan M.D. 08/18/2024 4:47 PM Dictation Location: [place] [address] Electronically authenticated by: [id number] Y Date: 08/18/2024 16:47
--- OUTSIDE RECORDS SUMMARY | 2024-08-18 10:48 | XMS_ITS | Continuity of Care Document ---
Author Name [facility] Organization [facility] Care Team Providers Care Laundry Room Attendant Name Role Phone [facility] Unavailable Unavailable Problems Combined list of problems from Department of Defense and Veterans Affairs facilities. It does not include entries that were removed or entered in error. Problem Status Onset Date Problem Type Date of Resolution Comments Source Benign prostatic hypertrophy with outflow obstruction (SNOMED CT 804348617) Active Condition [facility] Bilateral osteoarthritis of knees Active Condition [facility] Bph Now W Urinary Obst Active Condition [facility] Chronic ischemic heart disease (SNOMED CT 732365268) Active Condition Aug 21, 2003 Entered By: CINDY OQUENDO Comment: DRUG-ELUTING STENTS X'S 2009 Entered By: CINDY OQUENDO Comment: CABG 2009 Entered By: CINDY OQUENDO Comment: HEART CATH 12/08/09 [facility] Chronic low back pain Active Condition [facility] Chronic obstructive lung disease (SNOMED CT 51170492) Active Condition [facility] Detrusor instability of bladder Active Condition [facility] Essential hypertension (SNOMED CT 73836275) Active Condition [facility] Hyperlipidemia (SNOMED CT 85492300) Active Condition [facility] Retirement (current) use of Anticoagulants Active Condition [facility] Multiple nodules of lung Active Condition Sep 24, 2012 Entered By: CINDY OQUENDO Comment: chest CT 09/2012: repeat 12 months [facility] Osteoarthritis of joint of right shoulder region Active Condition [facility] Overactive bladder Active Condition [facility] Polyp of colon Active Condition Mar Entered By: DEVAUGHN BUCHANAN Comment: repeat colonoscopy JanJun 2015 Entered By: GAVIN ANN Comment: rpt c scope 1 yr; due 07/04/2016Jun 2016 Entered By: LANETTE DON Comment: rpt c scope 1 yr; due 07/12/2017Jul 2018 Entered By: BAKARI ANDERSON Comment: rpt sebas scope 3 yrs; due 08/23/2021ep 2017 Entered By: GAVIN ANN Comment: alivia mullen-feliciano 1 year. Due Sep 2018 [facility] Diagnosis: ICD-10-CM K59.00 Constipation, unspecified Active Diagnosis [facility] Diagnosis: ICD-10-CM H52.4 Presbyopia Active Diagnosis [facility] Diagnosis: ICD-10-CM I10 Essential (primary) hypertension Active Diagnosis [facility] Medications Combined list of outpatient medications from Department of Defense and Veterans Affairs facilities.Medications provided include 1) outpatient medications from the last 15 months, and 2) patient-reported medications. Medication Details Route Status Patient Instructions Prescription Expires Prescription Number Last Dispense Date Ordering Provider Order Date Order Qty Source ASCORBIC ACID TAB TAKE BY MOUTH EVERY DAY ORAL ACTIVE ALEJANDROFRANCISCA STEFAN GODDARD 2004 [facility] ASPIRIN 81MG TAB,EC TAKE ONE TABLET BY MOUTH EVERY DAY WITH BREAKFAS T ORAL ACTIVE CINDY OQUENDO 2005 [facility] CHOLECALCIF CELIO 25MCG (1,000UNIT) TAB TAKE ONE TABLET BY MOUTH EVERY DAY ORAL ACTIVE AGUSTÍN ANN 2015 [facility] EPINEPHRINE (EQV-ADRENA CLICK) 0.3MG/0.3ML INJECTOR INJECT DIRECTED INTRAMUS CULARLY ONE TIME INTRAM USCULA R ACTIVE CINDY OQUENDO 2005 [facility] IBUPROFEN 800MG TAB TAKE ONE TABLET BY MOUTH THREE TIMES A DAY, WITH MEALS NEEDED FOR PAIN (WITH FOOD) ORAL ACTIVE 10/29/2024 [id number] BAKARI ANDERSON 2023 90 [facility] ISOSORBIDE MONONITRATE 60MG TAB,SA TAKE ONE TABLET BY MOUTH EVERY DAY, ON AN EMPTY STOMACH FOR HEART ORAL SUSPEND ED 07/29/2025 [id number] 5 DANA DAVIS 2024 90 [facility] ISOSORBIDE MONONITRATE 60MG TAB,SA TAKE ONE TABLET BY MOUTH EVERY DAY, ON AN EMPTY STOMACH FOR HEART ORAL DISCONT INUED (EDIT) 08/11/2024 [id number] 5 DANA DAVIS 2024 90 [facility] ISOSORBIDE MONONITRATE 60MG TAB,SA TAKE ONE TABLET BY MOUTH EVERY DAY, ON AN EMPTY STOMACH FOR HEART ORAL DISCONT INUED 07/28/2024 [id number] 5 DANA DAVIS 2024 90 [facility] ISOSORBIDE MONONITRATE 60MG TAB,SA TAKE ONE TABLET BY MOUTH EVERY DAY, ON AN EMPTY STOMACH FOR HEART ORAL DISCONT INUED 04/22/2024 [id number] 5 BAKARI ANDERSON 2024 90 [facility] ISOSORBIDE MONONITRATE 60MG TAB,SA TAKE ONE TABLET BY MOUTH EVERY DAY, ON AN EMPTY STOMACH FOR HEART ORAL DISCONT INUED 04/13/2024 [id number] 4 BAKARI ANDERSON 2023 90 [facility] LISINOPRIL 10MG TAB TAKE ONE TABLET BY MOUTH EVERY DAY ORAL ACTIVE CINDY OQUENDO 2012 [facility] METOPROLOL TARTRATE 50MG TAB TAKE ONE TABLET BY MOUTH TWICE A DAY FOR HIGH BLOOD PRESSURE ORAL ACTIVE 05/14/2025 [id number] 5 DANA DAVIS 2024 180 [facility] METOPROLOL TARTRATE 50MG TAB TAKE ONE TABLET BY MOUTH TWICE A DAY FOR HIGH BLOOD PRESSURE ORAL DISCONT INUED 04/30/2025 [id number] 5 DANA DAVIS 2024 180 [facility] METOPROLOL TARTRATE 50MG TAB TAKE ONE TABLET BY MOUTH TWICE A DAY FOR HIGH BLOOD PRESSURE ORAL DISCONT INUED 05/22/2024 [id number] BAKARI ANDERSON 2023 180 [facility] MULTIVITAMI NS CAP/TAB TAKE 1 TAB/CAP BY MOUTH EVERY DAY ORAL ACTIVE STEFAN LIU RD 2004 [facility] PLECANATIDE 3MG TAB,ORAL TAKE ONE TABLET BY MOUTH EVERY DAY ORAL ACTIVE 02/26/2025 [id number] 5 DANA DAVIS 2024 90 [facility] PLECANATIDE 3MG TAB,ORAL TAKE ONE TABLET BY MOUTH EVERY DAY ORAL DISCONT INUED 12/14/2023 [id number] 4 BAKARI ANDERSON R 2022 90 [facility] POLYETHYLEN E GLYCOL 3350 PWDR,ORAL STIR 1 CAPFUL (17GM) IN 8 OUNCES OF LIQUID AND TAKE BY MOUTH EVERY DAY ORAL ACTIVE SETHAGUSTÍN Myles 2015 [facility] ROSUVASTATI N CA 40MG TAB TAKE ONE TABLET BY MOUTH AT BEDTIME FOR CHOLESTE ROL ORAL SUSPEND ED 07/02/2025 [id number] 5 DANA DAVIS 2024 90 [facility] ROSUVASTATI N CA 40MG TAB TAKE ONE TABLET BY MOUTH AT BEDTIME FOR CHOLESTE ROL ORAL DISCONT INUED 08/11/2024 [id number] 5 DANA DAVIS 2024 90 [facility] ROSUVASTATI N CA 40MG TAB TAKE ONE TABLET BY MOUTH AT BEDTIME FOR CHOLESTE ROL ORAL DISCONT INUED 07/28/2024 [id number] 5 DANA DAVIS 2024 90 [facility] ROSUVASTATI N CA 40MG TAB TAKE ONE TABLET BY MOUTH AT BEDTIME FOR CHOLESTE ROL ORAL DISCONT INUED 04/22/2024 [id number] 5 BAKARI ANDERSON 2024 90 [facility] ROSUVASTATI N CA 40MG TAB TAKE ONE TABLET BY MOUTH AT BEDTIME FOR CHOLESTE ROL ORAL DISCONT INUED 04/12/2024 [id number] BAKARI ANDERSON 2023 90 [facility] Allergies, Adverse Reactions, Alerts Combined list of allergies from Department of Defense and Veterans Affairs facilities. It does not include entries that were removed or entered in error. Substance Category Reaction Severity Reaction type Status Date Reported Comments Source BEE VENOM Propensity to adverse reaction (finding) Swelling active 9 [facility] OXYBUTYNIN CHLORIDE Propensity to adverse reactions to drug (finding) Constipatio n active 4 [facility] TROSPIUM Propensity to adverse reactions to drug (finding) Xerostomia MILD active 5 [facility] Immunizations Combined list of available immunizations from the Department of Defense and Veterans Affairs facilities. Immunization Series Date Given Administered By Site Reaction Lot Number CVX Code Drug Patent Searcher Status Comments Source RSV, BIVALENT, PROTEIN SUBUNIT RSVPREF, DILUENT RECONSTITUTED , 0.5 ML, PF 1 2024 305 complet ed HISTORICA L INFORMATI ON - FROM OTHER REGISTRY, [facility] COVID-19 (MODERNA), MRNA, LNP-S, PF, 50 MCG/0.5 ML (AGES 12+ YEARS) 2023 312 complet ed HISTORICA L INFORMATI ON - FROM OTHER REGISTRY, [facility] INFLUENZA, HIGH-DOSE, TRIVALENT, PF 6 2023 135 complet ed HISTORICA L INFORMATI ON - FROM OTHER REGISTRY, [facility] COVID-19 (MODERNA), MRNA, LNP-S, PF, 50 MCG/0.5 ML (AGES 12+ YEARS) 2022 312 complet ed HISTORICA L INFORMATI ON - FROM OTHER REGISTRY, [facility] INFLUENZA, HIGH-DOSE, QUADRIVALENT 2022 PHILIPPE VENCES L RIGHT DELTO ID [id number] A 197 complet ed [facility] [place], [facility] COVID-19 (MODERNA), MRNA, LNP-S, BIVALENT BOOSTER, PF, 50 MCG/0.5 ML OR 25MCG/0.25 ML DOSE 2021 229 complet ed Booster for Series, HISTORICA L INFORMATI ON - SOURCE UNSPECIFI ED, Per COVID-19 Vaccinati on Record Lot#: [id number] Mfr: MODERNA [employer] [facility] INFLUENZA, HIGH-DOSE, QUADRIVALENT 4 2021 197 complet ed HISTORICA L INFORMATI ON - FROM OTHER REGISTRY, [facility] INFLUENZA, UNSPECIFIED FORMULATION 2021 88 complet ed HISTORICA L INFORMATI ON - FROM PATIENT'S RECALL, [facility] PNEUMOCOCCAL CONJUGATE PCV20, POLYSACCHARID E [id number] CONJUGATE, ADJUVANT, PF 2 2021 216 complet ed HISTORICA L INFORMATI ON - FROM OTHER REGISTRY, [facility] TDAP 1 2021 115 complet ed HISTORICA L INFORMATI ON - FROM OTHER REGISTRY, [facility] COVID-19 (MODERNA), MRNA, LNP-S, PF, 100 MCG/0.5ML DOSE OR 50 MCG/0.25ML DOSE 2021 207 complet ed Booster for Series, HISTORICA L INFORMATI ON - SOURCE UNSPECIFI ED, Per COVID-19 Vaccinati on Record Card Lot#: [id number] Mfr: MODERNA [employer] [facility] COVID-19 (MODERNA), MRNA, LNP-S, PF, 100 MCG OR 50 MCG DOSE 3 2020 207 complet ed [facility] INFLUENZA, HIGH-DOSE, QUADRIVALENT 3 2020 197 complet ed HISTORICA L INFORMATI ON - FROM OTHER REGISTRY, [facility] ZOSTER RECOMBINANT 2 2020 187 complet ed HISTORICA L INFORMATI ON - FROM OTHER REGISTRY, [facility] INFLUENZA, UNSPECIFIED FORMULATION 2020 88 complet ed [facility] ZOSTER RECOMBINANT 1 2020 187 complet ed HISTORICA L INFORMATI ON - FROM OTHER REGISTRY, [facility] COVID-19 (MODERNA), MRNA, LNP-S, PF, 100 MCG OR 50 MCG DOSE 2 2020 207 complet ed [facility] COVID-19 (MODERNA), MRNA, LNP-S, PF, 100 MCG OR 50 MCG DOSE 1 2020 207 complet ed [facility] INFLUENZA, HIGH DOSE SEASONAL 2 2019 135 complet ed HISTORICA L INFORMATI ON - FROM OTHER REGISTRY, [facility] INFLUENZA, UNSPECIFIED FORMULATION 2019 88 complet ed [facility] INFLUENZA, HIGH DOSE SEASONAL 1 2018 135 complet ed HISTORICA L INFORMATI ON - FROM OTHER REGISTRY, [facility] INFLUENZA (HISTORICAL) 2018 88 complet ed reports receiving at [facility] Lillie [facility] TDAP 2018 115 complet ed [facility] ZOSTER RECOMBINANT 2018 187 complet ed [facility] ZOSTER RECOMBINANT 1 2017 187 complet ed [facility] INFLUENZA (HISTORICAL) 2017 88 complet ed Drug Santi Bond [facility] PNEUMOCOCCAL POLYSACCHARID E PPV23 1 2017 33 complet ed HISTORICA L INFORMATI ON - FROM OTHER REGISTRY, [facility] PNEUMOCOCCAL POLYSACCHARID E PPV23 2017 33 complet ed [facility] INFLUENZA, HIGH DOSE SEASONAL 2016 135 complet ed [facility] INFLUENZA, HIGH DOSE SEASONAL 2015 135 complet ed [facility] INFLUENZA, HIGH DOSE SEASONAL 2014 135 complet ed [facility] INFLUENZA, UNSPECIFIED FORMULATION 2014 88 complet ed [facility] PNEUMOCOCCAL CONJUGATE PCV 13 2014 133 complet ed [facility] INFLUENZA (HISTORICAL) 2013 88 complet ed [facility]OR[facility]) 2012 88 complet ed [facility] INFLUENZA (HISTORICAL) 2011 88 complet ed [facility] INFLUENZA (HISTORICAL) 2010 88 complet ed [facility] INFLU[facility] (HISTORICAL) 2009 88 complet ed [facility] NOVEL INFLUENZA-H1N 1-09, ALL FORMULATIONS [address] [facility] INFLUENZA (HISTORICAL) 2008 88 complet ed [facility] INFLUENZA (HISTORICAL) 2007 88 complet ed [facility] TD(ADULT) UNSPECIFIED FORMULATION 2004 139 complet ed [facility] PNEUMOCOCCAL, UNSPECIFIED FORMULATION 2003 109 complet ed [facility] INFLUENZA, WHOLE 2002 16 complet ed [facility] INFLUENZA, UNSPECIFIED FORMULATION 2000 88 complet ed [facility] Results Combined list of recent chemistry, hematology and other laboratory results from Department of Defense and Veterans Affairs, ranging from 15 months to all on record, depending upon the facility. Order Name Results Value Reference Range Date Interpretation Specimen Comments Source MAGNESIUM MAGNESIUM [MASS/VOLUM E] IN SERUM OR PLASMA 2.5 mg/dL 1.6 - 2.6 04/01 Specimen Type: PLASMA Comment: DLDL REF RANGE: NEAR OR ABOVE OPTIMAL: 100-129 mg/dL BORDERLINE DLDL HIGH: 130-159 mg/dL HIGH: 160-189 mg/dL VERY HIGH: >=190 GLUCOSE The ADA recommends a fasting glucose of 99 mg/dL as the GLUCOSE upper limit of normal. TP Per package insert reference range for recumbent is 6.0 to 7.8 TP g/dL and for >60 y/o is lower by 0.2 g/dL. Plasma samples will TP generally have higher values (about 0.2 to 0.4 g/dL higher) due TP to presence of fibrinogen. TRIG REF RANGE: BORDERLINE HIGH: 150-199 mg/dL HIGH: 200-499 mg/dL TRIG VERY HIGH: >=500 mg/dL CHOL REF RANGE: BORDERLINE HIGH: 200-239 mg/dL HIGH: >=240 mg/dL HDLC Values >60 are a negative risk factor for heart disease. Ordering Provider: LUIS ENRIQUE ANDERSON R Report Released Date/Time: Apr 13, 2023 11:05 AM Reporting Lab: [place] [phone] Performing Lab: [place] [phone] [facility] PROSTATE SPECIFIC ANTIGEN PROSTATE SPECIFIC AG [MASS/VOLUM E] IN SERUM OR PLASMA 0.228 ng/mL <6.500 - 6.500 04/01 Specimen Type: SERUM Comment: TPSA Testing males >= 70 y/o is not recommended if there is a TPSA history of previously normal PSA testing. TPSA Assay performed on [facility] using CMIA methodology . TPSA Patient results determined by assays using different TPSA manufacture rs or methods may not be comparable. Ordering Provider: LUIS ENRIQUE ANDERSON R Report Released Date/Time: Apr 13, 2023 11:05 AM Reporting Lab: [address] [phone] Performing Lab: [place] [phone] [facility] LIPID PROFILE CHOLESTEROL [MASS/VOLUM E] IN SERUM OR PLASMA 132 mg/dL <199 - 199 04/01 Specimen Type: PLASMA Comment: DLDL REF RANGE: NEAR OR ABOVE OPTIMAL: 100-129 mg/dL BORDERLINE DLDL HIGH: 130-159 mg/dL HIGH: 160-189 mg/dL VERY HIGH: >=190 GLUCOSE The ADA recommends a fasting glucose of 99 mg/dL as the GLUCOSE upper limit of normal. TP Per package insert reference range for recumbent is 6.0 to 7.8 TP g/dL and for >60 y/o is lower by 0.2 g/dL. Plasma samples will TP generally have higher values (about 0.2 to 0.4 g/dL higher) due TP to presence of fibrinogen. TRIG REF RANGE: BORDERLINE HIGH: 150-199 mg/dL HIGH: 200-499 mg/dL TRIG VERY HIGH: >=500 mg/dL CHOL REF RANGE: BORDERLINE HIGH: 200-239 mg/dL HIGH: >=240 mg/dL HDLC Values >60 are a negative risk factor for heart disease. Ordering Provider: LUIS ENRIQUE ANDERSON Report Released Date/Time: Apr 13, 2023 11:05 AM Reporting Lab: [address] [phone] Performing Lab: [address] [phone] [facility] LIPID PROFILE CHOLESTEROL IN LDL [MASS/VOLUM E] IN SERUM OR PLASMA BY DIRECT ASSAY 87 mg/dL 0 - 99 04/01 Specimen Type: PLASMA Comment: DLDL REF RANGE: NEAR OR ABOVE OPTIMAL: 100-129 mg/dL BORDERLINE DLDL HIGH: 130-159 mg/dL HIGH: 160-189 mg/dL VERY HIGH: >=190 GLUCOSE The ADA recommends a fasting glucose of 99 mg/dL as the GLUCOSE upper limit of normal. TP Per package insert reference range for recumbent is 6.0 to 7.8 TP g/dL and for >60 y/o is lower by 0.2 g/dL. Plasma samples will TP generally have higher values (about 0.2 to 0.4 g/dL higher) due TP to presence of fibrinogen. TRIG REF RANGE: BORDERLINE HIGH: 150-199 mg/dL HIGH: 200-499 mg/dL TRIG VERY HIGH: >=500 mg/dL CHOL REF RANGE: BORDERLINE HIGH: 200-239 mg/dL HIGH: >=240 mg/dL HDLC Values >60 are a negative risk factor for heart disease. Ordering Provider: LUIS ENRIQUE ANDERSON Report Released Date/Time: Apr 13, 2023 11:05 AM Reporting Lab: [address] [phone] Performing Lab: [place] [phone] [facility] LIPID PROFILE CHOLESTEROL IN HDL [MASS/VOLUM E] IN SERUM OR PLASMA 43 mg/dL 40 04/01 Specimen Type: PLASMA Comment: DLDL REF RANGE: NEAR OR ABOVE OPTIMAL: 100-129 mg/dL BORDERLINE DLDL HIGH: 130-159 mg/dL HIGH: 160-189 mg/dL VERY HIGH: >=190 GLUCOSE The ADA recommends a fasting glucose of 99 mg/dL as the GLUCOSE upper limit of normal. TP Per package insert reference range for recumbent is 6.0 to 7.8 TP g/dL and for >60 y/o is lower by 0.2 g/dL. Plasma samples will TP generally have higher values (about 0.2 to 0.4 g/dL higher) due TP to presence of fibrinogen. TRIG REF RANGE: BORDERLINE HIGH: 150-199 mg/dL HIGH: 200-499 mg/dL TRIG VERY HIGH: >=500 mg/dL CHOL REF RANGE: BORDERLINE HIGH: 200-239 mg/dL HIGH: >=240 mg/dL HDLC Values >60 are a negative risk factor for heart disease. Ordering Provider: LUIS ENRIQUE ANDERSON Report Released Date/Time: Apr 13, 2023 11:05 AM Reporting Lab: [address] [phone] Performing Lab: [place] [phone] [facility] LIPID PROFILE TRIGLYCERID E [MASS/VOLUM E] IN SERUM OR PLASMA 83 mg/dL <149 - 149 04/01 Specimen Type: PLASMA Comment: DLDL REF RANGE: NEAR OR ABOVE OPTIMAL: 100-129 mg/dL BORDERLINE DLDL HIGH: 130-159 mg/dL HIGH: 160-189 mg/dL VERY HIGH: >=190 GLUCOSE The ADA recommends a fasting glucose of 99 mg/dL as the GLUCOSE upper limit of normal. TP Per package insert reference range for recumbent is 6.0 to 7.8 TP g/dL and for >60 y/o is lower by 0.2 g/dL. Plasma samples will TP generally have higher values (about 0.2 to 0.4 g/dL higher) due TP to presence of fibrinogen. TRIG REF RANGE: BORDERLINE HIGH: 150-199 mg/dL HIGH: 200-499 mg/dL TRIG VERY HIGH: >=500 mg/dL CHOL REF RANGE: BORDERLINE HIGH: 200-239 mg/dL HIGH: >=240 mg/dL HDLC Values >60 are a negative risk factor for heart disease. Ordering Provider: LUIS ENRIQUE ANDERSON R Report Released Date/Time: Apr 13, 2023 11:05 AM Reporting Lab: [place] [phone] Performing Lab: [place] [phone] [facility] COMPREHEN SIVE METABOLIC PANEL ALBUMIN [MASS/VOLUM E] IN SERUM OR PLASMA 4.1 g/dL 3.5 - 4.8 04/01 Specimen Type: PLASMA Comment: DLDL REF RANGE: NEAR OR ABOVE OPTIMAL: 100-129 mg/dL BORDERLINE DLDL HIGH: 130-159 mg/dL HIGH: 160-189 mg/dL VERY HIGH: >=190 GLUCOSE The ADA recommends a fasting glucose of 99 mg/dL as the GLUCOSE upper limit of normal. TP Per package insert reference range for recumbent is 6.0 to 7.8 TP g/dL and for >60 y/o is lower by 0.2 g/dL. Plasma samples will TP generally have higher values (about 0.2 to 0.4 g/dL higher) due TP to presence of fibrinogen. TRIG REF RANGE: BORDERLINE HIGH: 150-199 mg/dL HIGH: 200-499 mg/dL TRIG VERY HIGH: >=500 mg/dL CHOL REF RANGE: BORDERLINE HIGH: 200-239 mg/dL HIGH: >=240 mg/dL HDLC Values >60 are a negative risk factor for heart disease. Ordering Provider: LUIS ENRIQUE ANDERSON R Report Released Date/Time: Apr 13, 2023 11:05 AM Reporting Lab: [address] [phone] Performing Lab: [place] [phone] [facility] COMPREHEN SIVE METABOLIC PANEL ALKALINE PHOSPHATASE [ENZYMATIC ACTIVITY/VO LUME] IN SERUM OR PLASMA 63 U/L 40 - 150 04/01 Specimen Type: PLASMA Comment: DLDL REF RANGE: NEAR OR ABOVE OPTIMAL: 100-129 mg/dL BORDERLINE DLDL HIGH: 130-159 mg/dL HIGH: 160-189 mg/dL VERY HIGH: >=190 GLUCOSE The ADA recommends a fasting glucose of 99 mg/dL as the GLUCOSE upper limit of normal. TP Per package insert reference range for recumbent is 6.0 to 7.8 TP g/dL and for >60 y/o is lower by 0.2 g/dL. Plasma samples will TP generally have higher values (about 0.2 to 0.4 g/dL higher) due TP to presence of fibrinogen. TRIG REF RANGE: BORDERLINE HIGH: 150-199 mg/dL HIGH: 200-499 mg/dL TRIG VERY HIGH: >=500 mg/dL CHOL REF RANGE: BORDERLINE HIGH: 200-239 mg/dL HIGH: >=240 mg/dL HDLC Values >60 are a negative risk factor for heart disease. Ordering Provider: LUIS ENRIQUE ANDERSON Report Released Date/Time: Apr 13, 2023 11:05 AM Reporting Lab: [place] [phone] Performing Lab: [place] [phone] [facility] COMPREHEN SIVE METABOLIC PANEL ALANINE AMINOTRANSF ERASE [ENZYMATIC ACTIVITY/VO LUME] IN SERUM OR PLASMA 27 U/L <55 - 55 04/01 Specimen Type: PLASMA Comment: DLDL REF RANGE: NEAR OR ABOVE OPTIMAL: 100-129 mg/dL BORDERLINE DLDL HIGH: 130-159 mg/dL HIGH: 160-189 mg/dL VERY HIGH: >=190 GLUCOSE The ADA recommends a fasting glucose of 99 mg/dL as the GLUCOSE upper limit of normal. TP Per package insert reference range for recumbent is 6.0 to 7.8 TP g/dL and for >60 y/o is lower by 0.2 g/dL. Plasma samples will TP generally have higher values (about 0.2 to 0.4 g/dL higher) due TP to presence of fibrinogen. TRIG REF RANGE: BORDERLINE HIGH: 150-199 mg/dL HIGH: 200-499 mg/dL TRIG VERY HIGH: >=500 mg/dL CHOL REF RANGE: BORDERLINE HIGH: 200-239 mg/dL HIGH: >=240 mg/dL HDLC Values >60 are a negative risk factor for heart disease. Ordering Provider: MONICA,AL EX R Report Released Date/Time: Apr 13, 2023 11:05 AM Reporting Lab: [address] [phone] Performing Lab: [place] [phone] [facility] COMPREHEN SIVE METABOLIC PANEL ASPARTATE AMINOTRANSF ERASE [ENZYMATIC ACTIVITY/VO LUME] IN SERUM OR PLASMA 21 U/L 10 - 40 04/01 Specimen Type: PLASMA Comment: DLDL REF RANGE: NEAR OR ABOVE OPTIMAL: 100-129 mg/dL BORDERLINE DLDL HIGH: 130-159 mg/dL HIGH: 160-189 mg/dL VERY HIGH: >=190 GLUCOSE The ADA recommends a fasting glucose of 99 mg/dL as the GLUCOSE upper limit of normal. TP Per package insert reference range for recumbent is 6.0 to 7.8 TP g/dL and for >60 y/o is lower by 0.2 g/dL. Plasma samples will TP generally have higher values (about 0.2 to 0.4 g/dL higher) due TP to presence of fibrinogen. TRIG REF RANGE: BORDERLINE HIGH: 150-199 mg/dL HIGH: 200-499 mg/dL TRIG VERY HIGH: >=500 mg/dL CHOL REF RANGE: BORDERLINE HIGH: 200-239 mg/dL HIGH: >=240 mg/dL HDLC Values >60 are a negative risk factor for heart disease. Ordering Provider: LUIS ENRIQUE ANDERSON EX R Report Released Date/Time: Apr 13, 2023 11:05 AM Reporting Lab: [address] [phone] Performing Lab: [address] [phone] [facility] COMPREHEN SIVE METABOLIC PANEL UREA NITROGEN [MASS/VOLUM E] IN SERUM OR PLASMA 17.0 mg/dL 8.4 - 25.7 04/01 Specimen Type: PLASMA Comment: DLDL REF RANGE: NEAR OR ABOVE OPTIMAL: 100-129 mg/dL BORDERLINE DLDL HIGH: 130-159 mg/dL HIGH: 160-189 mg/dL VERY HIGH: >=190 GLUCOSE The ADA recommends a fasting glucose of 99 mg/dL as the GLUCOSE upper limit of normal. TP Per package insert reference range for recumbent is 6.0 to 7.8 TP g/dL and for >60 y/o is lower by 0.2 g/dL. Plasma samples will TP generally have higher values (about 0.2 to 0.4 g/dL higher) due TP to presence of fibrinogen. TRIG REF RANGE: BORDERLINE HIGH: 150-199 mg/dL HIGH: 200-499 mg/dL TRIG VERY HIGH: >=500 mg/dL CHOL REF RANGE: BORDERLINE HIGH: 200-239 mg/dL HIGH: >=240 mg/dL HDLC Values >60 are a negative risk factor for heart disease. Ordering Provider: LUIS ENRIQUE ANDERSON Report Released Date/Time: Apr 13, 2023 11:05 AM Reporting Lab: [place] [phone] Performing Lab: [place] [phone] [place] [address] COMPREHEN SIVE METABOLIC PANEL CALCIUM [MASS/VOLUM E] IN SERUM OR PLASMA 9.4 mg/dL 8.6 - 10.3 04/01 Specimen Type: PLASMA Comment: DLDL REF RANGE: NEAR OR ABOVE OPTIMAL: 100-129 mg/dL BORDERLINE DLDL HIGH: 130-159 mg/dL HIGH: 160-189 mg/dL VERY HIGH: >=190 GLUCOSE The ADA recommends a fasting glucose of 99 mg/dL as the GLUCOSE upper limit of normal. TP Per package insert reference range for recumbent is 6.0 to 7.8 TP g/dL and for >60 y/o is lower by 0.2 g/dL. Plasma samples will TP generally have higher values (about 0.2 to 0.4 g/dL higher) due TP to presence of fibrinogen. TRIG REF RANGE: BORDERLINE HIGH: 150-199 mg/dL HIGH: 200-499 mg/dL TRIG VERY HIGH: >=500 mg/dL CHOL REF RANGE: BORDERLINE HIGH: 200-239 mg/dL HIGH: >=240 mg/dL HDLC Values >60 are a negative risk factor for heart disease. Ordering Provider: LUIS ENRIQUE ANDERSON Report Released Date/Time: Apr 13, 2023 11:05 AM Reporting Lab: [address] [address] Performing Lab: [place] [phone] [facility] COMPREHEN SIVE METABOLIC PANEL CREATININE [MASS/VOLUM E] IN SERUM OR PLASMA 0.9 mg/dL 0.7 - 1.3 04/01 Specimen Type: PLASMA Comment: DLDL REF RANGE: NEAR OR ABOVE OPTIMAL: 100-129 mg/dL BORDERLINE DLDL HIGH: 130-159 mg/dL HIGH: 160-189 mg/dL VERY HIGH: >=190 GLUCOSE The ADA recommends a fasting glucose of 99 mg/dL as the GLUCOSE upper limit of normal. TP Per package insert reference range for recumbent is 6.0 to 7.8 TP g/dL and for >60 y/o is lower by 0.2 g/dL. Plasma samples will TP generally have higher values (about 0.2 to 0.4 g/dL higher) due TP to presence of fibrinogen. TRIG REF RANGE: BORDERLINE HIGH: 150-199 mg/dL HIGH: 200-499 mg/dL TRIG VERY HIGH: >=500 mg/dL CHOL REF RANGE: BORDERLINE HIGH: 200-239 mg/dL HIGH: >=240 mg/dL HDLC Values >60 are a negative risk factor for heart disease. Ordering Provider: LUIS ENRIQUE ANDERSON Report Released Date/Time: Apr 13, 2023 11:05 AM Reporting Lab: [address] [phone] Performing Lab: [address] [address] [facility] COMPREHEN SIVE METABOLIC PANEL CARBON DIOXIDE, TOTAL [MOLES/VOLU ME] IN SERUM OR PLASMA 28 mmol/L 22 - 30 04/01 Specimen Type: PLASMA Comment: DLDL REF RANGE: NEAR OR ABOVE OPTIMAL: 100-129 mg/dL BORDERLINE DLDL HIGH: 130-159 mg/dL HIGH: 160-189 mg/dL VERY HIGH: >=190 GLUCOSE The ADA recommends a fasting glucose of 99 mg/dL as the GLUCOSE upper limit of normal. TP Per package insert reference range for recumbent is 6.0 to 7.8 TP g/dL and for >60 y/o is lower by 0.2 g/dL. Plasma samples will TP generally have higher values (about 0.2 to 0.4 g/dL higher) due TP to presence of fibrinogen. TRIG REF RANGE: BORDERLINE HIGH: 150-199 mg/dL HIGH: 200-499 mg/dL TRIG VERY HIGH: >=500 mg/dL CHOL REF RANGE: BORDERLINE HIGH: 200-239 mg/dL HIGH: >=240 mg/dL HDLC Values >60 are a negative risk factor for heart disease. Ordering Provider: LUIS ENRIQUE ANDERSON Report Released Date/Time: Apr 13, 2023 11:05 AM Reporting Lab: [address] [address] Performing Lab: [address] [address] [facility] COMPREHEN SIVE METABOLIC PANEL GLUCOSE [MASS/VOLUM E] IN SERUM OR PLASMA 118 mg/dL 74 - 99 04/01 H Specimen Type: PLASMA Comment: DLDL REF RANGE: NEAR OR ABOVE OPTIMAL: 100-129 mg/dL BORDERLINE DLDL HIGH: 130-159 mg/dL HIGH: 160-189 mg/dL VERY HIGH: >=190 GLUCOSE The ADA recommends a fasting glucose of 99 mg/dL as the GLUCOSE upper limit of normal. TP Per package insert reference range for recumbent is 6.0 to 7.8 TP g/dL and for >60 y/o is lower by 0.2 g/dL. Plasma samples will TP generally have higher values (about 0.2 to 0.4 g/dL higher) due TP to presence of fibrinogen. TRIG REF RANGE: BORDERLINE HIGH: 150-199 mg/dL HIGH: 200-499 mg/dL TRIG VERY HIGH: >=500 mg/dL CHOL REF RANGE: BORDERLINE HIGH: 200-239 mg/dL HIGH: >=240 mg/dL HDLC Values >60 are a negative risk factor for heart disease. Ordering Provider: LUIS ENRIQUE ANDERSON Report Released Date/Time: Apr 13, 2023 11:05 AM Reporting Lab: [address] [phone] Performing Lab: [address] [address] [facility] COMPREHEN SIVE METABOLIC PANEL PROTEIN [MASS/VOLUM E] IN SERUM OR PLASMA 6.9 g/dL 6.4 - 8.3 04/01 Specimen Type: PLASMA Comment: DLDL REF RANGE: NEAR OR ABOVE OPTIMAL: 100-129 mg/dL BORDERLINE DLDL HIGH: 130-159 mg/dL HIGH: 160-189 mg/dL VERY HIGH: >=190 GLUCOSE The ADA recommends a fasting glucose of 99 mg/dL as the GLUCOSE upper limit of normal. TP Per package insert reference range for recumbent is 6.0 to 7.8 TP g/dL and for >60 y/o is lower by 0.2 g/dL. Plasma samples will TP generally have higher values (about 0.2 to 0.4 g/dL higher) due TP to presence of fibrinogen. TRIG REF RANGE: BORDERLINE HIGH: 150-199 mg/dL HIGH: 200-499 mg/dL TRIG VERY HIGH: >=500 mg/dL CHOL REF RANGE: BORDERLINE HIGH: 200-239 mg/dL HIGH: >=240 mg/dL HDLC Values >60 are a negative risk factor for heart disease. Ordering Provider: LUIS ENRIQUE ANDERSON R Report Released Date/Time: Apr 13, 2023 11:05 AM Reporting Lab: [place] [phone] Performing Lab: [place] [phone] [facility] COMPREHEN SIVE METABOLIC PANEL SODIUM [MOLES/VOLU ME] IN SERUM OR PLASMA 138 mmol/L 134 - 144 04/01 Specimen Type: PLASMA Comment: DLDL REF RANGE: NEAR OR ABOVE OPTIMAL: 100-129 mg/dL BORDERLINE DLDL HIGH: 130-159 mg/dL HIGH: 160-189 mg/dL VERY HIGH: >=190 GLUCOSE The ADA recommends a fasting glucose of 99 mg/dL as the GLUCOSE upper limit of normal. TP Per package insert reference range for recumbent is 6.0 to 7.8 TP g/dL and for >60 y/o is lower by 0.2 g/dL. Plasma samples will TP generally have higher values (about 0.2 to 0.4 g/dL higher) due TP to presence of fibrinogen. TRIG REF RANGE: BORDERLINE HIGH: 150-199 mg/dL HIGH: 200-499 mg/dL TRIG VERY HIGH: >=500 mg/dL CHOL REF RANGE: BORDERLINE HIGH: 200-239 mg/dL HIGH: >=240 mg/dL HDLC Values >60 are a negative risk factor for heart disease. Ordering Provider: LUIS ENRIQUE ANDERSON Report Released Date/Time: Apr 13, 2023 11:05 AM Reporting Lab: [place] [phone] Performing Lab: [place] [phone] [facility] COMPREHEN SIVE METABOLIC PANEL CHLORIDE [MOLES/VOLU ME] IN SERUM OR PLASMA 103 mmol/L 99 - 112 04/01 Specimen Type: PLASMA Comment: DLDL REF RANGE: NEAR OR ABOVE OPTIMAL: 100-129 mg/dL BORDERLINE DLDL HIGH: 130-159 mg/dL HIGH: 160-189 mg/dL VERY HIGH: >=190 GLUCOSE The ADA recommends a fasting glucose of 99 mg/dL as the GLUCOSE upper limit of normal. TP Per package insert reference range for recumbent is 6.0 to 7.8 TP g/dL and for >60 y/o is lower by 0.2 g/dL. Plasma samples will TP generally have higher values (about 0.2 to 0.4 g/dL higher) due TP to presence of fibrinogen. TRIG REF RANGE: BORDERLINE HIGH: 150-199 mg/dL HIGH: 200-499 mg/dL TRIG VERY HIGH: >=500 mg/dL CHOL REF RANGE: BORDERLINE HIGH: 200-239 mg/dL HIGH: >=240 mg/dL HDLC Values >60 are a negative risk factor for heart disease. Ordering Provider: LUIS ENRIQUE ANDERSON Report Released Date/Time: Apr 13, 2023 11:05 AM Reporting Lab: [address] [address] Performing Lab: [place] [phone] [facility] COMPREHEN SIVE METABOLIC PANEL BILIRUBIN.T OTAL [MASS/VOLUM E] IN SERUM OR PLASMA 1.0 mg/dL 0.2 - 1.2 04/01 Specimen Type: PLASMA Comment: DLDL REF RANGE: NEAR OR ABOVE OPTIMAL: 100-129 mg/dL BORDERLINE DLDL HIGH: 130-159 mg/dL HIGH: 160-189 mg/dL VERY HIGH: >=190 GLUCOSE The ADA recommends a fasting glucose of 99 mg/dL as the GLUCOSE upper limit of normal. TP Per package insert reference range for recumbent is 6.0 to 7.8 TP g/dL and for >60 y/o is lower by 0.2 g/dL. Plasma samples will TP generally have higher values (about 0.2 to 0.4 g/dL higher) due TP to presence of fibrinogen. TRIG REF RANGE: BORDERLINE HIGH: 150-199 mg/dL HIGH: 200-499 mg/dL TRIG VERY HIGH: >=500 mg/dL CHOL REF RANGE: BORDERLINE HIGH: 200-239 mg/dL HIGH: >=240 mg/dL HDLC Values >60 are a negative risk factor for heart disease. Ordering Provider: LUIS ENRIQUE ANDERSON Report Released Date/Time: Apr 13, 2023 11:05 AM Reporting Lab: [address] [phone] Performing Lab: [address] [address] [facility] COMPREHEN SIVE METABOLIC PANEL POTASSIUM [MOLES/VOLU ME] IN SERUM OR PLASMA 4.4 mmol/L 3.5 - 5.1 04/01 Specimen Type: PLASMA Comment: DLDL REF RANGE: NEAR OR ABOVE OPTIMAL: 100-129 mg/dL BORDERLINE DLDL HIGH: 130-159 mg/dL HIGH: 160-189 mg/dL VERY HIGH: >=190 GLUCOSE The ADA recommends a fasting glucose of 99 mg/dL as the GLUCOSE upper limit of normal. TP Per package insert reference range for recumbent is 6.0 to 7.8 TP g/dL and for >60 y/o is lower by 0.2 g/dL. Plasma samples will TP generally have higher values (about 0.2 to 0.4 g/dL higher) due TP to presence of fibrinogen. TRIG REF RANGE: BORDERLINE HIGH: 150-199 mg/dL HIGH: 200-499 mg/dL TRIG VERY HIGH: >=500 mg/dL CHOL REF RANGE: BORDERLINE HIGH: 200-239 mg/dL HIGH: >=240 mg/dL HDLC Values >60 are a negative risk factor for heart disease. Ordering Provider: LUIS ENRIQUE ANDERSON Report Released Date/Time: Apr 13, 2023 11:05 AM Reporting Lab: [address] [phone] Performing Lab: [address] [address] [facility] COMPREHEN SIVE METABOLIC PANEL ANION GAP IN SERUM OR PLASMA 11 mmol/L 10 - 20 04/01 Specimen Type: PLASMA Comment: DLDL REF RANGE: NEAR OR ABOVE OPTIMAL: 100-129 mg/dL BORDERLINE DLDL HIGH: 130-159 mg/dL HIGH: 160-189 mg/dL VERY HIGH: >=190 GLUCOSE The ADA recommends a fasting glucose of 99 mg/dL as the GLUCOSE upper limit of normal. TP Per package insert reference range for recumbent is 6.0 to 7.8 TP g/dL and for >60 y/o is lower by 0.2 g/dL. Plasma samples will TP generally have higher values (about 0.2 to 0.4 g/dL higher) due TP to presence of fibrinogen. TRIG REF RANGE: BORDERLINE HIGH: 150-199 mg/dL HIGH: 200-499 mg/dL TRIG VERY HIGH: >=500 mg/dL CHOL REF RANGE: BORDERLINE HIGH: 200-239 mg/dL HIGH: >=240 mg/dL HDLC Values >60 are a negative risk factor for heart disease. Ordering Provider: LUIS ENRIQUE ANDERSON Report Released Date/Time: Apr 13, 2023 11:05 AM Reporting Lab: [address] [phone] Performing Lab: [address] [address] [facility] METABOLIC PANEL GLOMERULAR FILTRATION RATE/1.73 SQ M.PREDICTED [VOLUME RATE/AREA] IN SERUM, PLASMA OR BLOOD BY CREATININE- BASED FORMULA (CKD-EPI 2020) 89.0 mL/min 04/01 Specimen Type: PLASMA Comment: DLDL REF RANGE: NEAR OR ABOVE OPTIMAL: 100-129 mg/dL BORDERLINE DLDL HIGH: 130-159 mg/dL HIGH: 160-189 mg/dL VERY HIGH: >=190 GLUCOSE The ADA recommends a fasting glucose of 99 mg/dL as the GLUCOSE upper limit of normal. TP Per package insert reference range for recumbent is 6.0 to 7.8 TP g/dL and for >60 y/o is lower by 0.2 g/dL. Plasma samples will TP generally have higher values (about 0.2 to 0.4 g/dL higher) due TP to presence of fibrinogen. TRIG REF RANGE: BORDERLINE HIGH: 150-199 mg/dL HIGH: 200-499 mg/dL TRIG VERY HIGH: >=500 mg/dL CHOL REF RANGE: BORDERLINE HIGH: 200-239 mg/dL HIGH: >=240 mg/dL HDLC Values >60 are a negative risk factor for heart disease. Ordering Provider: LUIS ENRIQUE ANDERSON Report Released Date/Time: Apr 13, 2023 11:05 AM Reporting Lab: [address] [address] Performing Lab: [address] [address] [facility] CBC LEUKOCYTES [#/VOLUME] IN BLOOD BY AUTOMATED COUNT 8.4 10*3/u L 3.6 - 11.0 04/01 Specimen Type: BLOOD No comment entered. Ordering Provider: LUIS ENRIQUE ANDERSON Report Released Date/Time: Apr 13, 2023 11:05 AM Reporting Lab: [place] [phone] Performing Lab: [place] [phone] [place] [address] CBC ERYTHROCYTE S [#/VOLUME] IN BLOOD BY AUTOMATED COUNT 5.03 10*6/u L 4.47 - 5.83 04/01 Specimen Type: BLOOD No comment entered. Ordering Provider: LUIS ENRIQUE ANDERSON Report Released Date/Time: Apr 13, 2023 11:05 AM Reporting Lab: [place] [phone] Performing Lab: [place] [phone] [place] [address] CBC HEMOGLOBIN [MASS/VOLUM E] IN BLOOD 15.8 g/dL 13.6 - 17.4 04/01 Specimen Type: BLOOD No comment entered. Ordering Provider: LUIS ENRIQUE ANDERSON Report Released Date/Time: Apr 13, 2023 11:05 AM Reporting Lab: [place] [phone] Performing Lab: [place] [phone] [place] [address] CBC HEMATOCRIT [VOLUME FRACTION] OF BLOOD BY AUTOMATED COUNT 46.7 40.0 - 51.0 04/01 Specimen Type: BLOOD No comment entered. Ordering Provider: LUIS ENRIQUE ANDERSON Report Released Date/Time: Apr 13, 2023 11:05 AM Reporting Lab: [address] [address] Performing Lab: [place] [phone] [facility] CBC MCV [ENTITIC VOLUME] BY AUTOMATED COUNT 92.7 fL 80.0 - 96.0 04/01 Specimen Type: BLOOD No comment entered. Ordering Provider: LUIS ENRIQUE ANDERSON Report Released Date/Time: Apr 13, 2023 11:05 AM Reporting Lab: [place] [phone] Performing Lab: [place] [phone] [place] [address] CBC MCH [ENTITIC MASS] BY AUTOMATED COUNT 31.3 pg 27.0 - 31.0 04/01 H Specimen Type: BLOOD No comment entered. Ordering Provider: LUIS ENRIQUE ANDERSON Report Released Date/Time: Apr 13, 2023 11:05 AM Reporting Lab: [place] [phone] Performing Lab: [place] [phone] [place] [address] CBC MCHC [MASS/VOLUM E] BY AUTOMATED COUNT 33.8 g/dL 31.5 - 36.5 04/01 Specimen Type: BLOOD No comment entered. Ordering Provider: LUIS ENRIQUE ANDERSON Report Released Date/Time: Apr 13, 2023 11:05 AM Reporting Lab: [place] [phone] Performing Lab: [place] [phone] [place] [address] CBC PLATELETS [#/VOLUME] IN BLOOD BY AUTOMATED COUNT 180 10*3/u L 150 - 400 04/01 Specimen Type: BLOOD No comment entered. Ordering Provider: LUIS ENRIQUE ANDERSON Report Released Date/Time: Apr 13, 2023 11:05 AM Reporting Lab: [place] [phone] Performing Lab: [place] [phone] [place] [address] CBC LYMPHOCYTES /100 LEUKOCYTES IN BLOOD BY AUTOMATED COUNT 18.6 21.0 - 51.0 04/01 L Specimen Type: BLOOD No comment entered. Ordering Provider: LUIS ENRIQUE ANDERSON Report Released Date/Time: Apr 13, 2023 11:05 AM Reporting Lab: [address] [address] Performing Lab: [place] [phone] [facility] CBC MONOCYTES/1 00 LEUKOCYTES IN BLOOD BY AUTOMATED COUNT 9.6 4.0 - 8.0 04/01 H Specimen Type: BLOOD No comment entered. Ordering Provider: LUIS ENRIQUE ANDERSON Report Released Date/Time: Apr 13, 2023 11:05 AM Reporting Lab: [address] [address] Performing Lab: [place] [phone] [place] [address] CBC NUCLEATED ERYTHROCYTE S/100 LEUKOCYTES [RATIO] IN BLOOD BY MANUAL COUNT 0.3 /100{W BCs} 04/01 Specimen Type: BLOOD No comment entered. Ordering Provider: LUIS ENRIQUE ANDERSON Report Released Date/Time: Apr 13, 2023 11:05 AM Reporting Lab: [place] [phone] Performing Lab: [place] [phone] CBC ERYTHROCYTE DISTRIBUTIO N WIDTH [RATIO] BY AUTOMATED COUNT 13.2 11.2 - 15.8 04/01 Specimen Type: BLOOD No comment entered. Ordering Provider: LUIS ENRIQUE ANDERSON Report Released Date/Time: Apr 13, 2023 11:05 AM Reporting Lab: [place] [phone] Performing Lab: [place] [phone] CBC NEUTROPHILS /100 LEUKOCYTES IN BLOOD BY AUTOMATED COUNT 71.1 54.0 - 78.0 04/01 Specimen Type: BLOOD No comment entered. Ordering Provider: LUIS ENRIQUE ANDERSON Report Released Date/Time: Apr 13, 2023 11:05 AM Reporting Lab: [address] [address] Performing Lab: [place] [phone] [facility] CBC EOSINOPHILS /100 LEUKOCYTES IN BLOOD BY AUTOMATED COUNT 0.4 0.0 - 3.0 04/01 Specimen Type: BLOOD No comment entered. Ordering Provider: LUIS ENIRQUE ANDERSON Report Released Date/Time: Apr 13, 2023 11:05 AM Reporting Lab: [address] [address] Performing Lab: [place] [phone] [facility] CBC BASOPHILS/1 00 LEUKOCYTES IN BLOOD BY AUTOMATED COUNT 0.3 0.0 - 3.0 04/01 Specimen Type: BLOOD No comment entered. Ordering Provider: LUIS ENRIQUE ANDERSON Report Released Date/Time: Apr 13, 2023 11:05 AM Reporting Lab: [place] [phone] Performing Lab: [place] [phone] CBC LYMPHOCYTES [#/VOLUME] IN BLOOD BY AUTOMATED COUNT 1.6 10*3/u L 0.8 - 5.0 04/01 Specimen Type: BLOOD No comment entered. Ordering Provider: LUIS ENRIQUE ANDERSON Report Released Date/Time: Apr 13, 2023 11:05 AM Reporting Lab: [place] [phone] Performing Lab: [place] [phone] CBC NEUTROPHILS [#/VOLUME] IN BLOOD 6.0 10*3/u L 1.9 - 8.6 04/01 Specimen Type: BLOOD No comment entered. Ordering Provider: LUIS ENRIQUE ANDERSON Report Released Date/Time: Apr 13, 2023 11:05 AM Reporting Lab: [place] [phone] Performing Lab: [place] [phone] CBC BASOPHILS [#/VOLUME] IN BLOOD BY AUTOMATED COUNT 0.0 10*3/u L 0.0 - 0.3 04/01 Specimen Type: BLOOD No comment entered. Ordering Provider: LUIS ENRIQUE ANDERSON Report Released Date/Time: Apr 13, 2023 11:05 AM Reporting Lab: [place] [phone] Performing Lab: [address] CBC MONOCYTES [#/VOLUME] IN BLOOD BY AUTOMATED COUNT 0.8 10*3/u L 0.1 - 0.9 04/01 Specimen Type: BLOOD No comment entered. Ordering Provider: LUIS ENRIQUE ANDERSON Report Released Date/Time: Apr 13, 2023 11:05 AM Reporting Lab: [place] [phone] Performing Lab: [place] [phone] [facility] CBC EOSINOPHILS [#/VOLUME] IN BLOOD BY AUTOMATED COUNT 0.0 10*3/u L 0.0 - 0.3 04/01 Specimen Type: BLOOD No comment entered. Ordering Provider: LUIS ENRIQUE ANDERSON Report Released Date/Time: Apr 13, 2023 11:05 AM Reporting Lab: [place] [phone] Performing Lab: [place] [phone] [place] [address] CBC PLATELET MEAN VOLUME [ENTITIC VOLUME] IN BLOOD BY AUTOMATED COUNT 8.0 fL 7.4 - 11.4 04/01 Specimen Type: BLOOD No comment entered. Ordering Provider: LUIS ENRIQUE ANDERSON Report Released Date/Time: Apr 13, 2023 11:05 AM Reporting Lab: [place] [phone] Performing Lab: [place] [phone] [facility] LIPID PROFILE CHOLESTEROL [MASS/VOLUM E] IN SERUM OR PLASMA 127 mg/dL 135 - 200 04/06 L Specimen Type: PLASMA Comment: CREATININE eGFR was calculated using the CKD-EPI 2020 equation. TRIGLYCERID E REF RANGE: NORMAL <150 mg/dL BORDERLINE HIGH: 150-199 TRIGLYCERID E mg/dL HIGH: 200-499 mg/dL VERY HIGH: >=500 mg/dL Ordering Provider: LUIS ENRIQUE ANDERSON Report Released Date/Time: Apr 19, 2022 11:52 AM Reporting Lab: [place] [phone] Performing Lab: [place] [phone] [facility] LIPID PROFILE CHOLESTEROL IN LDL [MASS/VOLUM E] IN SERUM OR PLASMA BY DIRECT ASSAY 71.0 mg/dL 0 - 110 04/06 Specimen Type: PLASMA Comment: CREATININE eGFR was calculated using the CKD-EPI 2020 equation. TRIGLYCERID E REF RANGE: NORMAL <150 mg/dL BORDERLINE HIGH: 150-199 TRIGLYCERID E mg/dL HIGH: 200-499 mg/dL VERY HIGH: >=500 mg/dL Ordering Provider: LUIS ENRIQUE ANDERSON Report Released Date/Time: Apr 19, 2022 11:52 AM Reporting Lab: [address] [phone] Performing Lab: [place] [phone] [facility] LIPID PROFILE CHOLESTEROL IN HDL [MASS/VOLUM E] IN SERUM OR PLASMA 40 mg/dL 40 - 60 04/06 Specimen Type: PLASMA Comment: CREATININE eGFR was calculated using the CKD-EPI 2020 equation. TRIGLYCERID E REF RANGE: NORMAL <150 mg/dL BORDERLINE HIGH: 150-199 TRIGLYCERID E mg/dL HIGH: 200-499 mg/dL VERY HIGH: >=500 mg/dL Ordering Provider: LUIS ENRIQUE ANDERSON R Report Released Date/Time: Apr 19, 2022 11:52 AM Reporting Lab: [place] [phone] Performing Lab: [place] [phone] [facility] LIPID PROFILE TRIGLYCERID E [MASS/VOLUM E] IN SERUM OR PLASMA 115 mg/dL 0 - 149 04/06 Specimen Type: PLASMA Comment: CREATININE eGFR was calculated using the CKD-EPI 2020 equation. TRIGLYCERID E REF RANGE: NORMAL <150 mg/dL BORDERLINE HIGH: 150-199 TRIGLYCERID E mg/dL HIGH: 200-499 mg/dL VERY HIGH: >=500 mg/dL Ordering Provider: LUIS ENRIQUE ANDERSON Report Released Date/Time: Apr 19, 2022 11:52 AM Reporting Lab: [place] [phone] Performing Lab: [place] [phone] [facility] MAGNESIUM MAGNESIUM [MASS/VOLUM E] IN SERUM OR PLASMA 2.0 mg/dL 1.8 - 2.4 04/06 Specimen Type: PLASMA No comment entered. Ordering Provider: LUIS ENRIQUE ANDERSON Report Released Date/Time: Apr 19, 2022 11:52 AM Reporting Lab: [place] [phone] Performing Lab: [address] [phone] [facility] COMPREHEN SIVE METABOLIC PANEL ALBUMIN [MASS/VOLUM E] IN SERUM OR PLASMA 4.0 g/dL 3.2 - 4.8 04/06 Specimen Type: PLASMA Comment: CREATININE eGFR was calculated using the CKD-EPI 2020 equation. TRIGLYCERID E REF RANGE: NORMAL <150 mg/dL BORDERLINE HIGH: 150-199 TRIGLYCERID E mg/dL HIGH: 200-499 mg/dL VERY HIGH: >=500 mg/dL Ordering Provider: LUIS ENRIQUE ANDERSON Report Released Date/Time: Apr 19, 2022 11:52 AM Reporting Lab: [address] [phone] Performing Lab: [place] [phone] [facility] COMPREHEN SIVE METABOLIC PANEL ALKALINE PHOSPHATASE [ENZYMATIC ACTIVITY/VO LUME] IN SERUM OR PLASMA 68 U/L 46 - 116 04/06 Specimen Type: PLASMA Comment: CREATININE eGFR was calculated using the CKD-EPI 2020 equation. TRIGLYCERID E REF RANGE: NORMAL <150 mg/dL BORDERLINE HIGH: 150-199 TRIGLYCERID E mg/dL HIGH: 200-499 mg/dL VERY HIGH: >=500 mg/dL Ordering Provider: LUIS ENRIQUE ANDERSON Report Released Date/Time: Apr 19, 2022 11:52 AM Reporting Lab: [place] [phone] Performing Lab: [place] [phone] [facility] COMPREH SIVE METABOLIC PANEL ALANINE AMINOTRANSF ERASE [ENZYMATIC ACTIVITY/VO LUME] IN SERUM OR PLASMA 22 U/L 10 - 45 04/06 Specimen Type: PLASMA Comment: CREATININE eGFR was calculated using the CKD-EPI 2020 equation. TRIGLYCERID E REF RANGE: NORMAL <150 mg/dL BORDERLINE HIGH: 150-199 TRIGLYCERID E mg/dL HIGH: 200-499 mg/dL VERY HIGH: >=500 mg/dL Ordering Provider: LUIS ENRIQUE ANDERSON Report Released Date/Time: Apr 19, 2022 11:52 AM Reporting Lab: [address] [phone] Performing Lab: [address] [phone] [facility] COMPREHEN SIVE METABOLIC PANEL ASPARTATE AMINOTRANSF ERASE [ENZYMATIC ACTIVITY/VO LUME] IN SERUM OR PLASMA 19 U/L 0 - 33.9 04/06 Specimen Type: PLASMA Comment: CREATININE eGFR was calculated using the CKD-EPI 2020 equation. TRIGLYCERID E REF RANGE: NORMAL <150 mg/dL BORDERLINE HIGH: 150-199 TRIGLYCERID E mg/dL HIGH: 200-499 mg/dL VERY HIGH: >=500 mg/dL Ordering Provider: LUIS ENRIQUE ANDERSON Report Released Date/Time: Apr 19, 2022 11:52 AM Reporting Lab: [place] [phone] Performing Lab: [address] COMPREHEN SIVE METABOLIC PANEL UREA NITROGEN [MASS/VOLUM E] IN SERUM OR PLASMA 13 mg/dL 9 - 04/06 Specimen Type: PLASMA Comment: CREATININE eGFR was calculated using the CKD-EPI 2020 equation. TRIGLYCERID E REF RANGE: NORMAL <150 mg/dL BORDERLINE HIGH: 150-199 TRIGLYCERID E mg/dL HIGH: 200-499 mg/dL VERY HIGH: >=500 mg/dL Ordering Provider: LUIS ENRIQUE ANDERSON Report Released Date/Time: Apr 19, 2022 11:52 AM Reporting Lab: [place] [phone] Performing Lab: [place] [phone] COMPREHEN SIVE METABOLIC PANEL CALCIUM [MASS/VOLUM E] IN SERUM OR PLASMA 9.4 mg/dL 8.7 - 10.4 04/06 Specimen Type: PLASMA Comment: CREATININE eGFR was calculated using the CKD-EPI 2020 equation. TRIGLYCERID E REF RANGE: NORMAL <150 mg/dL BORDERLINE HIGH: 150-199 TRIGLYCERID E mg/dL HIGH: 200-499 mg/dL VERY HIGH: >=500 mg/dL Ordering Provider: LUIS ENRIQUE ANDERSON Report Released Date/Time: Apr 19, 2022 11:52 AM Reporting Lab: [place] [id number] Performing Lab: [place] [phone] [facility] COMPREHEN SIVE METABOLIC PANEL CREATININE [MASS/VOLUM E] IN SERUM OR PLASMA 1.0 mg/dL 0.70 - 1.30 04/06 Specimen Type: PLASMA Comment: CREATININE eGFR was calculated using the CKD-EPI 2020 equation. TRIGLYCERID E REF RANGE: NORMAL <150 mg/dL BORDERLINE HIGH: 150-199 TRIGLYCERID E mg/dL HIGH: 200-499 mg/dL VERY HIGH: >=500 mg/dL Ordering Provider: LUIS ENRIQUE ANDERSON Report Released Date/Time: Apr 19, 2022 11:52 AM Reporting Lab: [place] [phone] Performing Lab: [place] [id number] [place] [address] COMPREHEN SIVE METABOLIC PANEL CARBON DIOXIDE, TOTAL [MOLES/VOLU ME] IN SERUM OR PLASMA 30 mmol/L 21 - 32 04/06 Specimen Type: PLASMA Comment: CREATININE eGFR was calculated using the CKD-EPI 2020 equation. TRIGLYCERID E REF RANGE: NORMAL <150 mg/dL BORDERLINE HIGH: 150-199 TRIGLYCERID E mg/dL HIGH: 200-499 mg/dL VERY HIGH: >=500 mg/dL Ordering Provider: LUIS ENRIQUE ANDERSON Report Released Date/Time: Apr 19, 2022 11:52 AM Reporting Lab: [place] [phone] Performing Lab: [place] [phone] [place] [address] COMPREHEN SIVE METABOLIC PANEL GLUCOSE [MASS/VOLUM E] IN SERUM OR PLASMA 130 mg/dL 74 - 106 04/06 H Specimen Type: PLASMA Comment: CREATININE eGFR was calculated using the CKD-EPI 2020 equation. TRIGLYCERID E REF RANGE: NORMAL <150 mg/dL BORDERLINE HIGH: 150-199 TRIGLYCERID E mg/dL HIGH: 200-499 mg/dL VERY HIGH: >=500 mg/dL Ordering Provider: LUIS ENRIQUE ANDERSON Report Released Date/Time: Apr 19, 2022 11:52 AM Reporting Lab: [address] [address] Performing Lab: [place] [phone] [facility] COMPREHEN SIVE METABOLIC PANEL PROTEIN [MASS/VOLUM E] IN SERUM OR PLASMA 6.9 g/dL 6.4 - 8.5 04/06 Specimen Type: PLASMA Comment: CREATININE eGFR was calculated using the CKD-EPI 2020 equation. TRIGLYCERID E REF RANGE: NORMAL <150 mg/dL BORDERLINE HIGH: 150-199 TRIGLYCERID E mg/dL HIGH: 200-499 mg/dL VERY HIGH: >=500 mg/dL Ordering Provider: LUIS ENRIQUE ANDERSON Report Released Date/Time: Apr 19, 2022 11:52 AM Reporting Lab: [place] [phone] Performing Lab: [place] [phone] COMPREHEN SIVE METABOLIC PANEL SODIUM [MOLES/VOLU ME] IN SERUM OR PLASMA 142 mmol/L 136 - 148 04/06 Specimen Type: PLASMA Comment: CREATININE eGFR was calculated using the CKD-EPI 2020 equation. TRIGLYCERID E REF RANGE: NORMAL <150 mg/dL BORDERLINE HIGH: 150-199 TRIGLYCERID E mg/dL HIGH: 200-499 mg/dL VERY HIGH: >=500 mg/dL Ordering Provider: LUIS ENRIQUE ANDERSON Report Released Date/Time: Apr 19, 2022 11:52 AM Reporting Lab: [place] [phone] Performing Lab: [place] [phone] COMPREHEN SIVE METABOLIC PANEL CHLORIDE [MOLES/VOLU ME] IN SERUM OR PLASMA 105 mmol/L 98 - 107 04/06 Specimen Type: PLASMA Comment: CREATININE eGFR was calculated using the CKD-EPI 2020 equation. TRIGLYCERID E REF RANGE: NORMAL <150 mg/dL BORDERLINE HIGH: 150-199 TRIGLYCERID E mg/dL HIGH: 200-499 mg/dL VERY HIGH: >=500 mg/dL Ordering Provider: LUIS ENRIQUE ANDERSON Report Released Date/Time: Apr 19, 2022 11:52 AM Reporting Lab: [place] [phone] Performing Lab: [place] [phone] COMPREHEN SIVE METABOLIC PANEL BILIRUBIN.T OTAL [MASS/VOLUM E] IN SERUM OR PLASMA 0.6 mg/dL 0.3 - 1.2 04/06 Specimen Type: PLASMA Comment: CREATININE eGFR was calculated using the CKD-EPI 2020 equation. TRIGLYCERID E REF RANGE: NORMAL <150 mg/dL BORDERLINE HIGH: 150-199 TRIGLYCERID E mg/dL HIGH: 200-499 mg/dL VERY HIGH: >=500 mg/dL Ordering Provider: LUIS ENRIQUE ANDERSON Report Released Date/Time: Apr 19, 2022 11:52 AM Reporting Lab: [place] [phone] Performing Lab: [place] [phone] [place] [address] COMPREHEN SIVE METABOLIC PANEL POTASSIUM [MOLES/VOLU ME] IN SERUM OR PLASMA 4.1 mmol/L 3.5 - 5.1 04/06 Specimen Type: PLASMA Comment: CREATININE eGFR was calculated using the CKD-EPI 2020 equation. TRIGLYCERID E REF RANGE: NORMAL <150 mg/dL BORDERLINE HIGH: 150-199 TRIGLYCERID E mg/dL HIGH: 200-499 mg/dL VERY HIGH: >=500 mg/dL Ordering Provider: LUIS ENRIQUE ANDERSON Report Released Date/Time: Apr 19, 2022 11:52 AM Reporting Lab: [place] [phone] Performing Lab: [place] [phone] [place] [address] COMPREHEN SIVE METABOLIC PANEL ANION GAP IN SERUM OR PLASMA 11.1 mmol/L 10 - 20 04/06 Specimen Type: PLASMA Comment: CREATININE eGFR was calculated using the CKD-EPI 2020 equation. TRIGLYCERID E REF RANGE: NORMAL <150 mg/dL BORDERLINE HIGH: 150-199 TRIGLYCERID E mg/dL HIGH: 200-499 mg/dL VERY HIGH: >=500 mg/dL Ordering Provider: LUIS ENRIQUE ANDERSON Report Released Date/Time: Apr 19, 2022 11:52 AM Reporting Lab: [place] [phone] Performing Lab: [place] [phone] [facility] COMPREHEN SIVE METABOLIC PANEL GLOMERULAR FILTRATION RATE/1.73 SQ M.PREDICTED [VOLUME RATE/AREA] IN SERUM, PLASMA OR BLOOD BY CREATININE- BASED FORMULA (CKD-EPI 2020) 79 mL/min 04/06 Specimen Type: PLASMA Comment: CREATININE eGFR was calculated using the CKD-EPI 2020 equation. TRIGLYCERID E REF RANGE: NORMAL <150 mg/dL BORDERLINE HIGH: 150-199 TRIGLYCERID E mg/dL HIGH: 200-499 mg/dL VERY HIGH: >=500 mg/dL Ordering Provider: LUIS ENRIQUE ANDERSON Report Released Date/Time: Apr 19, 2022 11:52 AM Reporting Lab: [place] [id number] Performing Lab: [address] PROSTATE SPECIFIC ANTIGEN PROSTATE SPECIFIC AG [MASS/VOLUM E] IN SERUM OR PLASMA 0.19 ng/mL 0.00 - 4.00 04/06 Specimen Type: SERUM No comment entered. Ordering Provider: LUIS ENRIQUE ANDERSON Report Released Date/Time: Apr 19, 2022 11:52 AM Reporting Lab: [place] [phone] Performing Lab: [address] CBC LEUKOCYTES [#/VOLUME] IN BLOOD BY AUTOMATED COUNT 5.9 10*3/u L 3.6 - 11.0 04/06 Specimen Type: BLOOD No comment entered. Ordering Provider: LUIS ENRIQUE ANDERSON Report Released Date/Time: Apr 19, 2022 11:52 AM Reporting Lab: [place] [phone] Performing Lab: [address] CBC ERYTHROCYTE S [#/VOLUME] IN BLOOD BY AUTOMATED COUNT 5.17 10*6/u L 4.47 - 5.83 04/06 Specimen Type: BLOOD No comment entered. Ordering Provider: LUIS ENRIQUE ANDERSON Report Released Date/Time: Apr 19, 2022 11:52 AM Reporting Lab: [place] [phone] Performing Lab: [place] [phone] [place] [address] CBC HEMOGLOBIN [MASS/VOLUM E] IN BLOOD 16.2 g/dL 13.6 - 17.4 04/06 Specimen Type: BLOOD No comment entered. Ordering Provider: LUIS ENRIQUE ANDERSON Report Released Date/Time: Apr 19, 2022 11:52 AM Reporting Lab: [place] [phone] Performing Lab: [place] [phone] CBC HEMATOCRIT [VOLUME FRACTION] OF BLOOD BY AUTOMATED COUNT 47.8 40.0 - 51.0 04/06 Specimen Type: BLOOD No comment entered. Ordering Provider: LUIS ENRIQUE ANDERSON Report Released Date/Time: Apr 19, 2022 11:52 AM Reporting Lab: [place] [phone] Performing Lab: [place] [phone] CBC MCV [ENTITIC VOLUME] BY AUTOMATED COUNT 92.4 fL 80.0 - 96.0 04/06 Specimen Type: BLOOD No comment entered. Ordering Provider: LUIS ENRIQUE ANDERSON Report Released Date/Time: Apr 19, 2022 11:52 AM Reporting Lab: [place] [phone] Performing Lab: [place] [phone] CBC MCH [ENTITIC MASS] BY AUTOMATED COUNT 31.4 pg 27.0 - 31.0 04/06 H Specimen Type: BLOOD No comment entered. Ordering Provider: LUIS ENRIQUE ANDERSON Report Released Date/Time: Apr 19, 2022 11:52 AM Reporting Lab: [address] [phone] Performing Lab: [place] [phone] [place] [address] CBC MCHC [MASS/VOLUM E] BY AUTOMATED COUNT 34.0 g/dL 31.5 - 36.5 04/06 Specimen Type: BLOOD No comment entered. Ordering Provider: LUIS ENRIQUE ANDERSON Report Released Date/Time: Apr 19, 2022 11:52 AM Reporting Lab: [address] [phone] Performing Lab: [address] [phone] [facility] CBC PLATELETS [#/VOLUME] IN BLOOD BY AUTOMATED COUNT 164 10*3/u L 150 - 400 04/06 Specimen Type: BLOOD No comment entered. Ordering Provider: LUIS ENRIQUE ANDERSON Report Released Date/Time: Apr 19, 2022 11:52 AM Reporting Lab: [address] [phone] Performing Lab: [place] [phone] [place] [address] CBC LYMPHOCYTES /100 LEUKOCYTES IN BLOOD BY AUTOMATED COUNT 28.5 21.0 - 51.0 04/06 Specimen Type: BLOOD No comment entered. Ordering Provider: LUIS ENRIQUE ANDERSON Report Released Date/Time: Apr 19, 2022 11:52 AM Reporting Lab: [address] [phone] Performing Lab: [place] [phone] [place] [address] CBC MONOCYTES/1 00 LEUKOCYTES IN BLOOD BY AUTOMATED COUNT 8.1 4.0 - 8.0 04/06 H Specimen Type: BLOOD No comment entered. Ordering Provider: LUIS ENRIQUE ANDERSON Report Released Date/Time: Apr 19, 2022 11:52 AM Reporting Lab: [address] [phone] Performing Lab: [place] [phone] [facility] CBC NUCLEATED ERYTHROCYTE S/100 LEUKOCYTES [RATIO] IN BLOOD BY MANUAL COUNT 0.3 /100{W BCs} 04/06 Specimen Type: BLOOD No comment entered. Ordering Provider: LUIS ENRIQUE ANDERSON Report Released Date/Time: Apr 19, 2022 11:52 AM Reporting Lab: [address] [phone] Performing Lab: [place] [phone] [facility] CBC ERYTHROCYTE DISTRIBUTIO N WIDTH [RATIO] BY AUTOMATED COUNT 13.5 11.2 - 15.8 04/06 Specimen Type: BLOOD No comment entered. Ordering Provider: LUIS ENRIQUE ANDERSON Report Released Date/Time: Apr 19, 2022 11:52 AM Reporting Lab: [address] [phone] Performing Lab: [address] [phone] [facility] CBC NEUTROPHILS /100 LEUKOCYTES IN BLOOD BY AUTOMATED COUNT 61.6 54.0 - 78.0 04/06 Specimen Type: BLOOD No comment entered. Ordering Provider: LUIS ENRIQUE ANDERSON R Report Released Date/Time: Apr 19, 2022 11:52 AM Reporting Lab: [address] [phone] Performing Lab: [place] [phone] [facility] CBC EOSINOPHILS /100 LEUKOCYTES IN BLOOD BY AUTOMATED COUNT 1.3 0.0 - 3.0 04/06 Specimen Type: BLOOD No comment entered. Ordering Provider: LUIS ENRIQUE ANDERSON Report Released Date/Time: Apr 19, 2022 11:52 AM Reporting Lab: [place] [phone] Performing Lab: [place] [phone] [place] [address] CBC BASOPHILS/1 00 LEUKOCYTES IN BLOOD BY AUTOMATED COUNT 0.5 0.0 - 3.0 04/06 Specimen Type: BLOOD No comment entered. Ordering Provider: LUIS ENRIQUE ANDERSON Report Released Date/Time: Apr 19, 2022 11:52 AM Reporting Lab: [address] [phone] Performing Lab: [place] [phone] [place] [address] CBC LYMPHOCYTES [#/VOLUME] IN BLOOD BY AUTOMATED COUNT 1.7 10*3/u L 0.8 - 5.0 04/06 Specimen Type: BLOOD No comment entered. Ordering Provider: LUIS ENRIQUE ANDERSON Report Released Date/Time: Apr 19, 2022 11:52 AM Reporting Lab: [address] [phone] Performing Lab: [place] [phone] [facility] CBC NEUTROPHILS [#/VOLUME] IN BLOOD 3.6 10*3/u L 1.9 - 8.6 04/06 Specimen Type: BLOOD No comment entered. Ordering Provider: LUIS ENRIQUE ANDERSON Report Released Date/Time: Apr 19, 2022 11:52 AM Reporting Lab: [place] [phone] Performing Lab: [place] [phone] [facility] CBC BASOPHILS [#/VOLUME] IN BLOOD BY AUTOMATED COUNT 0.0 10*3/u L 0.0 - 0.3 04/06 Specimen Type: BLOOD No comment entered. Ordering Provider: LUIS ENRIQUE ANDERSON Report Released Date/Time: Apr 19, 2022 11:52 AM Reporting Lab: [place] [phone] Performing Lab: [place] [phone] CBC MONOCYTES [#/VOLUME] IN BLOOD BY AUTOMATED COUNT 0.5 10*3/u L 0.1 - 0.9 04/06 Specimen Type: BLOOD No comment entered. Ordering Provider: LUIS ENRIQUE ANDERSON Report Released Date/Time: Apr 19, 2022 11:52 AM Reporting Lab: [place] [phone] Performing Lab: [place] [phone] CBC EOSINOPHILS [#/VOLUME] IN BLOOD BY AUTOMATED COUNT 0.1 10*3/u L 0.0 - 0.3 04/06 Specimen Type: BLOOD No comment entered. Ordering Provider: LUIS ENRIQUE ANDERSON Report Released Date/Time: Apr 19, 2022 11:52 AM Reporting Lab: [place] [phone] Performing Lab: [place] [phone] [place] [address] CBC PLATELET MEAN VOLUME [ENTITIC VOLUME] IN BLOOD BY AUTOMATED COUNT 8.3 fL 7.4 - 11.4 04/06 Specimen Type: BLOOD No comment entered. Ordering Provider: LUIS ENRIQUE ANDERSON Report Released Date/Time: Apr 19, 2022 11:52 AM Reporting Lab: [address] [address] Performing Lab: [place] [phone] [facility] Vital Signs Combined list of inpatient and outpatient Vital Signs from Department of [facility] and [facility], ranging from 12 months to all on record, depending upon the facility. Vital Sign Value Date Comments Source SYSTOLIC BLOOD PRESSURE 142 05/13/2024 11:07:03 [facility] DIASTOLIC BLOOD PRESSURE 69 05/13/2024 11:07:03 [facility] PULSE OXIMETRY 96 05/13/2024 11:07:03 [facility] WEIGHT 218.4 05/13/2024 11:07:03 [facility] BMI 31 kg/m2 05/13/2024 11:07:03 [facility] PAIN 0 05/13/2024 11:07:03 [facility] TEMPERATURE 97.7 05/13/2024 11:07:03 [facility] PULSE 60 05/13/2024 11:07:03 [facility] RESPIRATION 16 05/13/2024 11:07:03 [facility] Encounters Combined list of: 1) Encounters from Department of Veterans Affairs facilities going backup to the last 18 months, not all [place] inpatient encounters are included; 2) Encounters from the Department of [facility] facilities going backup to 280 months. Location Location Details Encounter Type Encounter Number Reason For Visit Attending Provider ADM Date DC Date Status Disposition Source [facility] O/P EST MOD 30 MIN [id number] Diagnos is: ICD-10- CM I10 Essenti al (primar y) hyperte nsion MONICA,A GRACIELA R 04/12 JOSE ANGEL STEVENS [facility] Outpatient Encounter [id number] 04/19 [facility] Encounter [id number] 05/21 [facility] [place] En[place] [id number] 10/25 [facility] COMPRE OPH EXAM EST PT 1/> [id number] Diagnos is: ICD-10- CM H52.4 CONNIE John 11/04 [facility] Outpatient Encounter [id number] 11/11 [facility] [place] En[place] [id number] 01/22 [facility] [place] En[place] [id number] 02/19 [facility] [place] [facility] [id number] 02/24 [facility] [place] En[place] [id number] 04/29 [facility] F[facility] [id number] Diagnos is: ICD-10- CM K59.00 Constip ation, unspeci DNAA Jimenez 05/13 [facility] 30 MIN [id number] Diagnos is: ICD-10- CM K59.00 Constip ation, unspeci FREDY Jordan 05/13 [facility] [place] [id number] 07/01 [facility] [place] Encounter [id number] 07/28 [facility] Social History Combined list of available smoking, tobacco, and other social history from Department of Defense and Veterans Affairs facilities. Social History Type Response Date Comment Sourc e Tobacco smoking status NHIS VA-TOBACCO USE FORMER CIGARETTES 05/13/2024 [facility] History of tobacco use VA-TOBACCO NEVER USED OTHER TYPE 05/13/2024 [facility] History of tobacco use VA-TOBACCO FORMER USER 04/13/2023 [facility] History of tobacco use VA-TOBACCO FORMER USER 04/19/2022 [facility] History of tobacco use VA-TOBACCO FORMER USER 04/08/2021 [facility] History of tobacco use VA-TOBACCO FORMER USER 05/03/2020 [facility] History of tobacco use IA-TOBACCO FORMER USER 06/25/2017 [facility] History of tobacco use TOBACCO FORMER USER MORE 12 MONTHS 06/25/2014 quit 1998 [facility] History of tobacco use TOBACCO FORMER USER MORE 12 MONTHS 02/13/2013 [facility] History of tobacco use QUIT TOBACCO >7 YEARS AGO 08/09/2007 [facility] History of tobacco use QUIT TOBACCO >7 YEARS AGO 08/24/2006 [facility] History of tobacco use TOBACCO FORMER USER MORE 12 MONTHS 09/01/2005 QUIT SMOKING IN 1996 [facility] History of tobacco use TOBACCO FORMER USER MORE 12 MONTHS 02/26/2004 QUIT [facility] History of tobacco use TOBACCO FORMER USER MORE 12 MONTHS 05/01/2003 QUIT IN [facility] History of tobacco use TOBACCO FORMER USER MORE 12 MONTHS 10/30/2001 NOT SINCE 1996 [facility] History of tobacco use TOBACCO FORMER USER MORE 12 MONTHS 09/21/2000 [facility] Plan of Care List of future care activities from Department of Veterans Affairs facilities. Additional future care activities may be listed in the Assessment and Plan section. Date/Time Care Activity Care Activity Detail Facili ty 11/04/2024 AMBULATORY - SURGERY AMB[facility]ATORY - SURGERY [facility]
--- OUTSIDE RECORDS SUMMARY | 2024-08-18 15:49 | XMS_ITS | Encounter Summary ---
Author Organization [facility] Address [address] [address] Care Team Providers Care Educational Psychologist Name Role Phone Stanton Velasco MD Primary Care Provider [phone] Stanton Velasco MD Unavailable [phone] Alvina Sanchez LPN Unavailable Encounter Details Date Type Department Care Team (Late st Contact Info) Description 06/17/2024 Abstract [facility] [address] [facility] [address] [place] [id number] Stanton Velasco MD [address] [facility] [address] [place], [place] [id number] Social History Tobacco Use Types Packs/Day Years Used Date Smoking Tobacco: Never Smokeless Tobacco: Never Alcohol Use Standard Drinks/Week Comments Never 0 (1 standard drink = 0.6 oz pur e alcohol) B1300 Health Literacy Answer Date Recor ded How often do you need to hav e someone help you when you read instructions, pamphlets, or other written material from your doctor or pharmacy? Never 10/25/2023 Humiliation, Afraid, Rape, and Kick questionnair e Answer Date Recorded Within the last year, have y ou been afraid of your partner or ex-partner? No 10/20/2022 Within the last year, have y ou been humiliated or emotionally abused in other ways by your partner or ex-partner? No Within the last year, have y ou been kicked, hit, slapped, or otherwise physically hurt by your partner or ex-partner? No 10/20/2022 Within the last year, have y ou been raped or forced to have any kind of sexual activity by your partner or ex-partner? No 10/20/2022 Social Connection and Isolation Panel [NHANES] A nswer Date Recorded In a typical week, how many times do you talk on the phone with family, friends, or neighbors? Once a week 10/21/19 How often do you get togethe r with friends or relatives? Once a week 10/20/2022 How often do you attend chur or tenriism services? 1 to 4 times per year 10/20/2022 Do you belong to any clubs o r organizations such as restoration groups, unions, fraternal or athletic groups, or school groups? No 10/20/2022 How often do you attend meet ings of the clubs or organizations you belong to? Never 10/20/2022 Are you , , di vorced, , never , or living with a partner? 10/20/2022 AUDIT-C Answer Date Recorded Q1: How often do you have a drink containing alc ohol? Monthly or less 10/20/2022 Q2: How many drinks containi ng alcohol do you have on a typical day when you are drinking? 1 or 2 10/20/2022 Q3: How often do you have si x or more drinks on one occasion? Never 10/20/2022 Overall Financial Resource Strain (CARDIA) Answe r Date Recorded How hard is it for you to pa y for the very basics like food, housing, medical care, and heating? Not hard at all 10/20/2022 PHQ-2 Answer Date Recorded Patient Health Questionnaire-2 Score 0 04/16/2024 [facility] - Occupational Stress Questionnaire Answer Date Recorded Do you feel stress - tense, restless, nervous, or anxious, or unable to sleep at night because your mind is troubled all the time - these days? Not at all 10/20/2022 Exercise Vital Sign Answer Date Recorde d On average, how many days pe r week do you engage in moderate to strenuous exercise (like a brisk walk)? 3 days 10/20/2022 On average, how many minutes do you engage in exercise at this level? 10 min 10/20/2022 Hunger Vital Sign Answer Date Recorded Within the past 12 months, y ou worried that your food would run out before you got the money to buy more. Never true 10/21/19 23 Within the past 12 months, t he food you bought just didn't last and you didn't have money to get more. Never true 10/20/2022 PRAPARE - Transportation Answer Date Re corded In the past 12 months, has l ack of transportation kept you from medical appointments or from getting medications? No 09/2022 In the past 12 months, has l ack of transportation kept you from meetings, work, or from getting things needed for daily living? No 10/20/2022 Housing Stability Vital Sign Answer Evangelista e Recorded In the last 12 months, was t here a time when you were not able to pay the mortgage or rent on time? No 10/20/2022 In the last 12 months, how many places have you lived? 1 10/20/2022 In the last 12 months, was t here a time when you did not have a steady place to sleep or slept in a fci (including now)? No 10/20/2022 Sex and Gender Information Value Date Recorded Sex Assigned at Not on file Legal Sex Male 6:56 PM EDT Gender Identity Not on file Sexual Orientation Not on file documented as of this encounter Plan of Treatment Not on file documented as of this encounter Visit Diagnoses Not on filedocumented in this encounter Additional Health Concerns Assessment Noted Time PHQ-9 Depression Total Score: 0 05/23/19 24 9:00 AM EDT documented as of this encounter Care Teams Educational Psychologist Relationship Specialty Start Date End Date Stanton Velasco MD [address] [address] PCP - General Internal Medicine 08/18/22 Stanton Velasco MD [address] [facility] [address] [place] [address] PCP - [facility] 02/13/2402/11 Alvina Sanchez LPN [address] [facility] [address] [place] [address] 05/06/24 documented as of this encounter
--- OUTSIDE RECORDS SUMMARY | 2024-08-18 15:49 | XMS_ITS | Clinical Summary ---
Author Organization [facility] Address [address] [place] [address] Care Team Providers Care Snuff Grinder And Screener Name Role Phone Stanton Velasco MD Primary Care Provider [phone] Stanton Velasco MD Unavailable [phone] Alvina Sanchez CHILD HEALTH ASSOCIATE Unavailable Allergies Active Allergy Reactions Criticality Noted Date Comments Bee Pollen Unknown,Swelling 01/30/2014 Bee Venom 06/26/2022 Other Reaction(s): Unknown Other Other 04/12/2021 Sneezing. Oxybutynin 06/20/2013 Other Reaction(s): Constipation Trospium Low 03/31/2014 Other Reaction(s): Xerostomia Medications rosuvastatin (Crestor) 40 MG tablet 1 (one) time each day at the same time. Active polyethylene glycol, PEG, 3350 (MiraLax) 17 GM/SCOOP powder as directed Orally Active nitroglycerin (Nitrostat) 0.4 MG SL tablet as directed Sublingual Active metoprolol tartrate (Lopressor) 50 MG tablet every 12 (twelve) hours. Active lisinopril 20 MG tablet 1 (one) time each day at the same time. Active isosorbide mononitrate ER (Imdur) 60 MG 24 hr tablet 1 (one) time each day at the same time. Active cholecalciferol (Vitamin D3) 25 MCG (1000 UT) tablet 1 (one) time each day at the same time. Active Ascorbic Acid (Vitamin C) 500 MG capsule 1 (one) time each day at the same time. Active aspirin (Aspir-Low) 81 MG EC tablet 1 (one) time each day at the same time. Active triamcinolone (Kenalog) 0.1 % cream APPLY TO THE AFFECTED AREA(S) (thin layer on neck, chest) TWICE DAILY NEEDED 09/14/19 23 Active fluticasone (Flonase) 50 MCG/ACT nasal sprayIndications:S easonal allergic rhinitis due to pollen Administer 1-2 sprays into each nostril in the morning. Shake gently. Before first use, prime pump. After use, clean tip and replace cap.. 16 g 3 02/03/20 23 Active loratadine (Claritin) 10 MG tabletIndications: Allergic rhinitis, unspecified seasonality, unspecified trigger Take 1 tablet (10 mg) by mouth Daily 90 tablet 3 03/07/19 25 026 Active ondansetron ODT (Zofran-ODT) 4 MG disintegrating tablet Take 4 mg by mouth every 4 (four) hours if needed for nausea or vomiting 03/31/19 25 Active plecanatide (Trulance) tablet tablet Take 3 mg by mouth Daily ON HOLD OF 04/03/2024. Active linaCLOtide (Linzess) 290 MCG capsuleIndications :Chronic idiopathic constipation Take 1 capsule (290 mcg) by mouth in the morning for 16 days. Take before meals. Do not crush or chew.. 16 capsule 04/03/19 25 Active lactulose (Chronulac) 10 GM/15ML solutionIndication s:Constipation, unspecified constipation type Take 15 mL (10 g) by mouth in the morning and 15 mL (10 g) before bedtime. 900 mL 3 04/17/19 25 025 Active Problems Problem Noted Date Diagnosed Date Chronic obstructive pulmonary disease 04/02/2024 Pulmonary granuloma of histoplasmosis ([facility]) 03/07/2024 Alteration in self-care ability 05/23/2023 Benign prostatic hyperplasia with urinary obstru ction 05/23/2023 Chronic idiopathic constipation 05/23/2023 Chronic ischemic heart disease 05/23/2023 Overview (05/23/2023): Aug 21, 2003 Entered By: CINDY OQUENDO Comment: DRUG-ELUTING STENTS X'S 2009 Entered By: CINDY OQUENDO Comment: CABG 2009 Entered By: CINDY OQUENDO Comment: HEART CATH 12/08/09 Edema 05/23/2023 History of coronary artery disease 05/23/2023 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 Due Sep 2018 Presbyopia 05/23/2023 Abnormal gait 08/21/2022 Arthritis of both knees 08/21/2022 Atrophy of deltoid muscle 08/21/2022 Atrophy of muscle of right shoulder 08/21/2022 Diverticulosis of colon 08/21/2022 Dyslipidemia 08/21/2022 History of right knee joint replacement 08/22/19 Impingement syndrome of left shoulder 08/21/2022 Injury at C5 level of cervical spinal cord 08/21 Mild cognitive disorder 08/21/2022 Presence of shoulder joint prosthesis 08/21/2022 Contracture of right hip joint 08/21/2022 Raynaud's syndrome without gangrene 08/21/2022 Seasonal allergic rhinitis 08/21/2022 Stage 2 chronic kidney disease 08/21/2022 Disturbance of skin sensation 08/21/2022 Atopic dermatitis 06/26/2022 Atherosclerotic heart diseas e of redding coronary artery without angina pectoris 05/04/2021 Other chronic pain 05/04/2021 Osteoarthritis of hip, unspecified 05/04/2021 Unsteadiness on feet 05/04/2021 Vitamin D deficiency, unspecified 05/04/2021 History of lumbar fusion 06/17/2020 Loose right total knee arthroplasty 06/17/2020 Chronic knee pain after tota l replacement of right knee joint 11/14/2019 Obesity, Class I, BMI 30-34.9 10/28/2018 Overview (08/21/2022): Last Assessment & Plan: Assessment: Body mass index is 33.77 kg/m . Last Assessment & Plan: Assessment: Body mass index is 33.77 kg/m . Urge incontinence of urine 06/20/2017 Overview (08/21/2022): Added automatically from request for surgery [id number] Last Assessment & Plan: Assessment: Patient states that he self caths twice daily. Added automatically from request for surgery [id number] Last Assessment & Plan: Assessment: Patient states that he self caths twice daily. Cervical spondylosis 05/04/2017 Overview (08/21/2022): Added automatically from request for surgery [id number] Added automatically from request for surgery [id number] Brachial plexopathy 03/12/2017 Benign essential hypertension 11/20/2011 Overview (08/21/2022): Last Assessment & Plan: Assessment: Stable, controlled with RX medication Last Assessment & Plan: Assessment: Stable, controlled with RX medication Dyspnea 11/20/2011 Resolved Problems Problem Noted Date Diagnosed Date Resolved Date Unable to ambulate 05/23/2023 UTI (urinary tract infection) 05/23/2023 05/23/2023 Acute pain of left knee 08/21/202205/13 Closed torus fracture of upp er end of left fibula 08/21/2022 05/23/2023 Hyperplasia of prostate 08/21/202205/13 Low vitamin D level 08/21/2022 05/23/19 24 Pain in limb 08/21/2022 05/23/2023 Secondary osteoarthritis, left shoulder 08/21/2022 05/23/2023 Solitary pulmonary nodule 08/21/2022 Aftercare following joint replacement surgery 05/05/19 22 05/23/2023 Bladder disorder, unspecified 05/04/2021 05/23/2023 Complete rotator cuff tear o r rupture of right shoulder, not specified as traumatic 05/04/2021 05/23/2023 Pre-op evaluation 04/12/2021 05/23/2023 Primary osteoarthritis of right hip 06/17/2020 05/23/2023 Osteoarthritis of right knee 10/30/2018 05/23/2023 Preop testing 05/04/2017 05/23/2023 Overview (08/21/2022): Added automatically from request for surgery [id number] Added automatically from request for surgery [id number] Hyperlipidemia 11/20/2011 05/23/2023 Encounters Date Type Department Care Team Description 08/18/2024 Telephone [facility] [address] [place] [address] Stanton Velasco MD xray request 07/09/2024 Patient Outreach [facility] [address] [place] [id number] Emelyn Hall, LEATHA 06/26/2024 Abstract [facility] [address] [place] [address] Stanton Velasco MD 06/17/2024 Abstract [facility] [address] [place] [id number] Stanton Velasco MD 06/06/2024 Clinisync Result Encounter [facility] External Department Unsolicited Provider, Generic External Data 05/19/2024 Abstract [facility] [address] [place] [id number] Stanton Velasco MD from Last 3 Months Immunizations Immunization Administration Dates Next Due ABRYSVO - Respiratory syncyt ial virus (RSV), vaccine, bivalent, protein subunit RSV prefusion F, diluent reconstituted, 0.5 mL, PF 02/20/2024 Influenza, High Dose Seasona l, Preservative Free 11/12/2023,12/16/2019,10/31/2018,12/20 Influenza, High-dose Seasona l, Quadrivalent, Preservative Free 11/09/2022,11/17/2021,11/16/2020,11/06 Rocio SARS-CoV-2 12/14/2020,05/05/2020, 021 Moderna Bivalent Booster Vaccination 11/17/2021 PPD Test 05/11/2021,05/04/2021 Pneumococcal Conjugate PCV 13 11/13/2014 Pneumococcal Conjugate PCV 20 09/08/2021 Pneumococcal Polysaccharide PPSV23 11/12/2017 Pneumococcal, Unspecified 08/21/2003 SARS-COV-2 (COVID-19) vaccin e, mRNA, spike protein, LNP, PF, 50 mcg/0.5 mL 12/12/2022 Td (adult), unspecified 09/02/2004 Tdap 09/08/2021,07/04/2018 Zoster, Recombinant 11/16/2020,,07/04/2018,12/28 Zoster, live 11/16/2020,06/23/2020 Family History Medical History Relation Name Comments Heart attack Mother Stroke Mother Relation Name Status Comments Father Mother Sister Social History Tobacco Use Types Packs/Day Years Used Date Smoking Tobacco: Never Smokeless Tobacco: Never Tobacco Cessation:Counseling Given: Not Answered Alcohol Use Standard Drinks/Week Comments Never 0 [...] 10/20/2022 How often do you attend chur ch or amish services? 1 to 4 times per year 10/20/2022 Do you belong to any clubs o r organizations such as rastafari groups, unions, fraternal or athletic groups, or [...] Recorded Patient Health Questionnaire-2 Score 0 04/16/2024 [facility] Occup[facility] ional Health - Occupational Stress [...] place to sleep or slept in a custodial (including now)? No 10/20/2022 Sex and Gender Information Value Date Recorded Sex Assigned at Not on file Legal Sex Male 6:56 PM EDT Gender Identity Not on file Sexual Orientation Not on file Last Filed Vital Signs Vital Sign Reading Time Taken Comments Blood Pressure 108/64 04/16/2024 2:21 PM EST Pulse 68 04/16/2024 2:21 PM EST Temperature - - Respiratory Rate 16 04/16/2024 2:21 PM EST Oxygen Saturation 96% 04/16/2024 2:21 PM EST Inhaled Oxygen Concentration - - Weight 99.3 kg (218 lb 14.4 oz) 04/16/2024 2:21 PM EST Height 177.8 cm (5' 10 ) 04/16/2024 2:21 PM EST Body Mass Index 31.41 04/16/2024 2:21 PM EST Plan of Treatment Health Maintenance Due Date Last Done Comments CT Colonography 1948 FIT-DNA 1948 FIT 1948 FOBT 1950 Sigmoidoscopy 1950 Influenza Vaccine (#1) 2024 , 11/09/2022, 11/17/2021, Additional history exists Medicare Annual Wellness (AWV) 02/14/2025 0 02/15/2024, 05/23/2023, 05/12/2022, Additional history exists Colonoscopy 04/04/2033 04/04/2023, 10/12/2021 Colorectal Cancer Screening 04/04/2033 Pneumococcal Vaccine: 65+ Years Completed 09/08/2021, 11/12/2017, 11/13/2014, Additional history exists Procedures Procedure Name Priority Date/Time Associated Diagnosis Comments CA ECHO DOPPLER COMPLETE 06/06/2024 9:43 AM EDT COLONOSCOPY DIAGNOSTIC Routine 04/04/2023 1:22 PM EST from Last 3 Months or Most Recently Relevant to Health Maintenance Results * CA ECHO DOPPLER COMPLETE (06/06/2024 9:43 AM EDT) Anatomical Region Laterality Modality Other 06/06/2024 9:43 AM EDT Narrative 06/06/2024 9:44 AM EDT [address] [address] Cardiology Report Signed Patient: FAHAD SOTELO MR#: [id number] : 1950 Acct:[id number] Age/Sex: 73 / M ADM Date: 06/05/24 Loc: CARD Attending Dr: Tamanna Mcmillan M.D. Ordering Physician: Tamanna Mcmillan M.D. Date of Service: 06/05/24 Procedure(s): CA echo doppler complete Accession Number(s): [id number] cc: STANTON VELASCO ; Tamanna Mcmillan M.D. Patient Name: FAHAD SOTELO MR#: [id number] : 1950 Exam Date: 06/05/2024 Ordering Doctor: DR TAMANNA MCMILLAN M.D. ECHOCARDIOGRAM REPORT PROCEDURE: CA ECHO DOPPLER COMPLETE INDICATIONS: Nonrheumatic mitral valve regurgitation, CABG, hypertension COMPARISON: None. DESCRIPTION: COMPLETE ECHOCARDIOGRAM Real-time transthoracic echocardiography with 2D, M-mode, spectral and color flow Doppler performed. QUALITY: Technical quality was good. LEFT VENTRICLE: Normal chamber size. Thickened septal wall. Normal systolic function. LV EF: Normal left ventricular ejection fraction, (>55%). DIASTOLIC: Diastolic function is indeterminate. ATRIAL SEPTUM: LEFT ATRIUM: Mild dilatation. RIGHT ATRIUM: Normal chamber size. RIGHT VENTRICLE: Normal chamber size. Normal right ventricular systolic function. TRICUSPID VALVE: Normal mobility and thickness. No stenosis with trivial regurgitation. MITRAL VALVE: Normal mobility and thickness. No evidence of mitral valve stenosis. There is no mitral annular calcification. Trivial regurgitation. AORTIC VALVE: Normal trileaflet appearance. Mildly calcified aortic valve. Normal leaflet mobility. No evidence of aortic valve stenosis. No aortic regurgitation. AORTIC ROOT: Normal diameter and appearance. PULMONIC VALVE: Normal thickness and mobility. No stenosis. No regurgitation. PERICARDIUM: No evidence of pericardial effusion. IVC: Not well visualized. PLEURA: CONCLUSION: 1. Normal left ventricular size and systolic function. LVEF is estimated at 55 to 60%. 2. Normal right ventricular size and systolic function. 3. Mild left atrial dilatation. 4. Trivial mitral regurgitation. 5. No significant valvular dysfunction. Adult Echocardiography Procedure Report Left Ventricle LVEDD (3.7 - 5.6 cm): 5.15 cm LVESD (2.2 - 4.0 cm): 3.73 cm LVIVS thickness (0.6 - 1.2 cm): 1.07 cm LVPW thickness (0.5 - 1.0 cm): 1.03 cm e': 0.16 m/s E - e': 3.38 LVOT Max Gradient: 2.48 mm[Hg] LVOT Area (cm2): 0.79 m/s Peak Velocity (LVOT): 0.79 m/s Mean Velocity (LVOT): 0.54 m/s LVOT Diameter 2.39 cm Left Atrium LA Volume Index (2D A2C): 37.48 ml/m2 Left Atrium Systolic Dimension: 4.75 cm Mitral Valve MV E to A Ratio: 0.67 Mitral Valve A-Wave Peak Velocity: 0.79 m/s Mitral Valve E-Wave Peak Velocity: 0.53 m/s Right Ventricle Aorta AO Root Diam: 3.39 cm Aortic Valve AoV Area (Peak Gallo): 2.41 cm2, 2.57 cm2 AoV Area (VTI): 2.24 cm2, 3.51 cm2 Peak Velocity(Antegrade Flow): 1.38 m/s, 1.47 m/s Peak Gradient(Antegrade Flow): 7.61 mm[Hg], 8.62 mm[Hg] Mean Velocity(Antegrade Flow): 0.86 m/s, 1.01 m/s Mean Gradient(Antegrade Flow): 3.56 mm[Hg], 4.68 mm[Hg] Velocity Time Integral: 23.66 cm, 37.15 cm Tricuspid Valve Pulmonic Valve Peak Gradient: 3.43 mm[Hg], 6.66 mm[Hg] Right Atrium Right Atrium Systolic Pressure: 48.85 ml, 48.85 ml Dictated by: Adolfo Diaz M.D. on 06/06/2024 at 09:40 Approved by: Adolfo Diaz M.D. on 06/06/2024 at 09:43 Dictated By: ADOLFO DIAZ Signed By: 06/06/24 0944 DD/ TD/TT: Sign Carpenter: Procedure Note Radiology, Radiologist, MD - 06/06/[address] [address] Cardiology Report Signed Patient: FAHAD SOTELO AMR#: [id number] : 9Acct:[id number] Age/Sex: 73 / MADM Date: 06/05/24 Loc: CARD Attending Dr: Tamanna Mcmillan M.D. Ordering Physician: Tamanna Mcmillan M.D. Date of Service: 06/05/24 Procedure(s): CA echo doppler complete Accession Number(s): [id number] cc: STANTON VELASCO ; Tamanna Mcmillan M.D. Patient Name: FAHAD SOTELO MR#: [id number] : 1950 Exam Date: 06/05/2024 Ordering Doctor: DR TAMANNA MCMILLAN M.D. ECHOCARDIOGRAM REPORT PROCEDURE: CA ECHO DOPPLER COMPLETE INDICATIONS: Nonrheumatic mitral valve regurgitation, CABG,hypertension COMPARISON: None. DESCRIPTION: COMPLETE ECHOCARDIOGRAM Real-time transthoracic echocardiography with 2D, M-mode, spectral and color flow Dopplerperformed. QUALITY: Technical quality was good. LEFT VENTRICLE: Normal chamber size. Thickened septal wall. Normal systolic function. LV EF: Normal left ventricular ejection fraction, (>55%). DIASTOLIC: Diastolic function is indeterminate. ATRIAL SEPTUM: LEFT ATRIUM: Mild dilatation. RIGHT ATRIUM: Normal chamber size. RIGHT VENTRICLE: Normal chamber size. Normal right ventricularsystolic function. TRICUSPID VALVE: Normal mobility and thickness. No stenosis withtrivial regurgitation. MITRAL VALVE: Normal mobility and thickness. No evidence of mitralvalve stenosis. There is no mitral annular calcification. Trivialregurgitation. AORTIC VALVE: Normal trileaflet appearance. Mildly calcified aorticvalve. Normal leaflet mobility. No evidence of aortic valve stenosis. No aortic regurgitation. AORTIC ROOT: Normal diameter and appearance. PULMONIC VALVE: Normal thickness and mobility. No stenosis. No regurgitation. PERICARDIUM: No evidence of pericardial effusion. IVC: Not well visualized. PLEURA: CONCLUSION: 1. Normal left ventricular size and systolic function. LVEF is estimatedat 55 to 60%. 2. Normal right ventricular size and systolic function. 3. Mild left atrial dilatation. 4. Trivial mitral regurgitation. 5. No significant valvular dysfunction. Adult Echocardiography Procedure Report Left Ventricle LVEDD (3.7 - 5.6 cm): 5.15 cm LVESD (2.2 - 4.0 cm): 3.73 cm LVIVS thickness (0.6 - 1.2 cm): 1.07 cm LVPW thickness (0.5 - 1.0 cm): 1.03 cm e': 0.16 m/s E - e': 3.38 LVOT Max Gradient: 2.48 mm[Hg] LVOT Area (cm2): 0.79 m/s Peak Velocity (LVOT): 0.79 m/s Mean Velocity (LVOT): 0.54 m/s LVOT Diameter 2.39 cm Left Atrium LA Volume Index (2D A2C): 37.48 ml/m2 Left Atrium Systolic Dimension: 4.75 cm Mitral Valve MV E to A Ratio: 0.67 Mitral Valve A-Wave Peak Velocity: 0.79 m/s Mitral Valve E-Wave Peak Velocity: 0.53 m/s Right Ventricle Aorta AO Root Diam: 3.39 cm Aortic Valve AoV Area (Peak Gallo): 2.41 cm2, 2.57 cm2 AoV Area (VTI): 2.24 cm2, 3.51 cm2 Peak Velocity(Antegrade Flow): 1.38 m/s, 1.47 m/s Peak Gradient(Antegrade Flow): 7.61 mm[Hg], 8.62 mm[Hg] Mean Velocity(Antegrade Flow): 0.86 m/s, 1.01 m/s Mean Gradient(Antegrade Flow): 3.56 mm[Hg], 4.68 mm[Hg] Velocity Time Integral: 23.66 cm, 37.15 cm Tricuspid Valve Pulmonic Valve Peak Gradient: 3.43 mm[Hg], 6.66 mm[Hg] Right Atrium Right Atrium Systolic Pressure: 48.85 ml, 48.85 ml Dictated by: Adolfo Diaz M.D. on 06/06/2024 at 09:40 Approved by: Adolfo Diaz M.D. on 06/06/2024 at 09:43 Dictated By: ADOLFO DIAZ Signed By:06/06/24 0944 DD/ 0943 TD/TT: Sign Carpenter: us Generic External Data Provider [facility] Final Result * COLONOSCOPY DIAGNOSTIC (04/04/2023 1:22 PM EST) Anatomical Region Laterality Modality Radiographic Kathie ging us [facility] Provider Unallocated MD LENTZ XR PROCEDURES F inal Result from Last 3 Months or Most Recently Relevant to Health Maintenance Insurance [employer] Care Teams Snuff Grinder And Screener Relationship Specialty Start Date End Date Stanton Velasco MD [address] [address] PCP - General Internal Medicine 08/18/22 Stanton Velasco MD [address] [address] PCP - Medical [place] 02/13/2402/11 Alvina Sanchez LPN [address] [address] 05/06/24
--- OUTSIDE RECORDS SUMMARY | 2024-08-18 15:49 | XMS_ITS | Encounter Summary ---
Author Organization [facility] Address [address] [place] [address] Care Team Providers Care Dental Sales Representative Name Role Phone Stanton Velasco MD Primary Care Provider [phone] Stanton Velasco MD Unavailable [phone] Alvina Sanchez LPN Unavailable Encounter Details Date Type Department Care Team (Late st Contact Info) Description 05/15/2024 Abstract [facility] [address] [facility] [address] [place] [address] Stanton Velasco MD [address] [facility] [address] [place], [place] [id number] Social History Tobacco Use Types Packs/Day Years [...] How often do you attend chur or jainism services? 1 to 4 times per year 10/20/2022 Do you belong to any clubs o r organizations such as gnosticism groups, unions, fraternal or athletic groups, or [...] Recorded Patient Health Questionnaire-2 Score 0 04/16/2024 [facility] Occupat ional Health - Occupational Stress [...] place to sleep or slept in a mcc (including now)? No 10/20/2022 Sex and Gender [...] documented as of this encounter Care Teams Dental Sales Representative Relationship Specialty Start Date End Date Stanton Velasco MD [address] [address] PCP - General Internal Medicine 08/18/22 Stanton Velasco MD [address] [facility] [address] [place] [address] PCP - Medical [facility] 02/13/2402/11 Alvina Sanchez LPN [address] [facility] [address] [place] [address] 05/06/24 documented as of this encounter
--- OUTSIDE RECORDS SUMMARY | 2024-08-18 15:49 | XMS_ITS | Encounter Summary ---
Author Organization [facility] Address [address] [place] [address] Care Team Providers Care Export Traffic Department Manager Name Role Phone Uli Mcdonald Primary Care Provider UnaHossein Rosas DO Unavailable [phone] David Carrillo MD Unavailable [phone] Rod FATIMA MD, Stanton Payne Primary Care Provider [phone] Source Comments In the event this information is protected by the Federal Confidentiality of Alcohol and Drug AbusePatient Records regulations: The Federal rules restrict any use of the information to criminally investigate or prosecute any alcohol or drug abuse patient.[facility] Reason for Visit * Reason Comments Radiology MRI Encounter Details Date Type Department Care Team (Late st Contact Info) Description 08/10/2020 Radiology Radiology [address] [place] [address] Laila Matthews, RT(R) Radiology MRI Social History Tobacco Use Types Packs/Day Years Used Date Smoking Tobacco: Former Cigarettes 1.3 10 1 - 11/13/1997 Smokeless Tobacco: Never Alcohol Use Standard Drinks/Week Comments Yes 0 (1 standard drink = 0.6 oz pur e alcohol) 2 cans of beer per year. AUDIT-C Answer Date Recorded Q1: How often do you have a drink containing alc ohol? Monthly or less 12/19/2019 Q2: How many drinks containi ng alcohol do you have on a typical day when you are drinking? 1 or 2 12/19/2019 Q3: How often do you have si x or more drinks on one occasion? Never 12/19/2019 PHQ-2 Answer Date Recorded PHQ2 Score 0 10/30/2018 Area Deprivation Index Answer Date Yrn rded National Score (1-100), lower number is lower ri sk Not on file 01/20/2020 State Score (1-10), lower number is lower risk N ot on file 01/20/2020 Data from: https://www.neighborhoodatlas.medicine.[facility]/. Last address used for calculation Not on file 01/20/2020 Sex and Gender Information Value Date Recorded Sex Assigned at Male 07/19/2023 9:29 AM EDT Legal Sex Male 3:19 PM EST Gender Identity Male 07/19/2023 9:29 AM EDT Sexual Orientation Not on file COVID-19 Exposure Response Date Recorded In the last month, have you been in contact with someone who was confirmed or suspected to have Coronavirus / COVID-19? No / Unsure 08/10/2020 11:40 AM EDT documented as of this encounter Functional Status * Are you deaf or do you have serious difficulty hearing? Answer Date of Assessment Author No 10/31/2018 3:35 PM Larissa Horner RN * Are you blind or do you have serious difficulty seeing, even when wearing glasses? Answer Date of Assessment Author No 10/31/2018 3:35 PM EDT Larissa Moreira RN * Do you have serious difficulty walking or climbing stairs? Answer Date of Assessment Author No 10/31/2018 3:35 PM Larissa Horner RN * Do you have difficulty dressing or bathing? Answer Date of Assessment Author No 10/31/2018 3:35 PM LEAHT Larissa Moreira RN * Because of a physical, mental, or emotional condition, do you have difficulty doing errands alone such as visiting a doctor's office or shopping? Answer Date of Assessment Author No 10/31/2018 3:35 PM EDT Larissa Moreira RN documented as of this encounter Mental Status * Because of a physical, mental, or emotional condition, do you have serious difficulty concentrating, remembering, or making decisions? Answer Entry Date Author No 10/31/2018 3:35 PM EDT Larissa Moreira RN documented in this encounter Progress Notes * Laila Anne RT(R) - 08/10/2020 1:03 PM EDT Radiology Service Progress Note PATIENT NAME: Fahad Sotelo DATE OF SERVICE: August 10, 2020 TIME: 1:03 PM PATIENT IDENTITY VERIFICATION COMPLETED USING TWO (2) IDENTIFIERS: Name and Date of confirmedby patient verbally. FALL SCREENING: Has the patient had 2 falls in the last year or 1 fall with injury or currently using an Ambulatory Assistive Device (Walker, Cane, Wheelchair, Crutches, etc.)? No PATIENT GENDER DATA: Male PATIENT RELEVANT IMPLANT DATA REVIEWED: Yes RADIOLOGY DEPARTMENT: MR; Exam(s) Completed: Upper MSK: Shoulder, right PERIPHERAL IV DATA: Not applicable SIGNED BY: RT Gayle(R) August 10, 2020 1:03 PM documented in this encounter Plan of Treatment Upcoming Encounters Date Type Department Care Team (Late st Contact Info) Description 08/26/2024 1:00 PM EDT Procedure Colorectal Surgery [facility] [address] [address] [place] [address] Kristal Jeong APRN.MANAGER TRACK [address] [place] [address] New Pt: Abdominal Pain, diarrhea, ref by Dr. Solorio 08/26/2024 1:30 PM EDT Office Visit Colorectal Surgery [facility] [address] [place], [place] [id number] Kristal Jeong APRN.MANAGER TRACK [id number] [place] [address] New Pt: Abdominal Pain, diarrhea, ref by Dr. Solorio documented as of this encounter Visit Diagnoses Not on filedocumented in this encounter Additional Health Concerns Infection Onset Date Last Indicated Resolved Time COVID-19 Rule-Out 05/04/2021 05/04/2021 05/04/2021 11:12 AM EDT documented as of this encounter Care Teams Export Traffic Department Manager Relationship Specialty Start Date End Date Uli Mcdonald [address] [place], [place] [address] [address] PCP - General Family Medicine 08/28/16 03/31/21 Stanton Velasco II, MD [address] [place] [address] PCP - General Internal Medicine 04/01/21 Hossein Tran DO [address] [place] [id number] Referring Ophthalmology 08/28/16 David Carrillo MD [address] [place] [address] Referring Urology 10/06/16 documented as of this encounter
--- OUTSIDE RECORDS SUMMARY | 2024-08-18 15:49 | XMS_ITS | Encounter Summary ---
Author Organization [facility] Address [address] [facility] [place] [address] Care Team Providers Care Enterprise Cloud Architect Name Role Phone Stanton Velasco MD Primary Care Provider [phone] Emelyn Hall RN Unavailable [phone] Stanton Velasco MD Unavailable [phone] Alvina Sanchez LPN Unavailable Encounter Details Date Type Department Care Team (Late st Contact Info) Description 04/15/2024 Abstract [facility] 112 [facility] [address] [place] [address] Stanton Velasco MD 112 [facility] 110 [place] [address] Social History Tobacco Use Types Packs/Day Years [...] often do you attend chur ch or zoroastrian services? 1 to 4 times per year 10/20/2022 Do you belong to any clubs o r organizations such as buddhist groups, unions, fraternal or athletic groups, or [...] Recorded Patient Health Questionnaire-2 Score 0 04/16/2024 [facility] of Occupat ional Health - Occupational Stress [...] place to sleep or slept in a group home (including now)? No 10/20/2022 Sex and Gender Information Value Date Recorded Sex Assigned at Not on file Legal Sex Male 6:56 PM EDT Gender Identity Not on file Sexual Orientation Not on file documented as of this encounter Functional Status * Over the past 2 weeks, how often have you been bothered by any of the following problems? Question Answer Date of Assessment Author Little interest or pleasure in doing things Not at all 04/16/2024 2:15 PM NEDA CRUMP Feeling down, depressed, or hopeless Not at all 06/2024 2:15 PM NEDA CRUMP Patient Health Questionnaire-2 Score 0 06/2024 2:15 PM NEDA CRUMP documented as of this encounter Plan of Treatment Not on file documented as of this encounter Visit Diagnoses Not on filedocumented in this encounter Additional Health Concerns Assessment Noted Time PHQ-9 Depression Total Score: 0 05/23/19 24 9:00 AM EDT documented as of this encounter Care Teams Enterprise Cloud Architect Relationship Specialty Start Date End Date Stanton Velasco MD [address] [facility] [address] [place] [address] PCP - General Internal Medicine 08/18/22 Stanton Velasco MD [address] [place] [address] [place] [address] PCP - Medical [facility] 02/13/2402/11 Emelyn Hall, RN [address] [place] [address] Clinical Advocate Family Medicine 03/21/24 05/06/24 Alvina Sanchez LPN [address] [place] [address] [place] [address] 05/06/24 documented as of this encounter
--- OUTSIDE RECORDS SUMMARY | 2024-08-18 15:49 | XMS_ITS | Encounter Summary ---
Author Organization [facility] Address [address] [facility] [place] [address] Care Team Providers Care Machine Clipper Name Role Phone Stanton Velasco MD Primary Care Provider [phone] Stanton Velasco MD Unavailable [phone] Alvina Sanchez LPN Unavailable Encounter Details Date Type Department Care Team (Late st Contact Info) Description 06/26/2024 Abstract [facility] 112 [facility] 110 [place] [address] Stanton Velasco MD 112 [facility] 110 [place], [place] [id number] Social History Tobacco Use Types Packs/Day Years [...] How often do you attend chur or confucianist services? 1 to 4 times per year 10/20/2022 Do you belong to any clubs o r organizations such as mormonism groups, unions, fraternal or athletic groups, or [...] Recorded Patient Health Questionnaire-2 Score 0 04/16/2024 [facility] of Occupat ional Health - Occupational [...] documented as of this encounter Care Teams Machine Clipper Relationship Specialty Start Date End Date Stanton Velasco MD [address] [address] PCP - General Internal Medicine 08/18/22 Stanton Velasco MD [address] [facility] [address] [place] [address] PCP - Medical [facility] 02/13/2402/11 Alvina Sanchez LPN [address] [facility] [address] [place] [address] 05/06/24 documented as of this encounter
--- OUTSIDE RECORDS SUMMARY | 2024-08-18 15:49 | XMS_ITS | Encounter Summary ---
Author Organization [facility] Address [address] [facility] [place] [address] Care Team Providers Care Concrete Stone Finishing Supervisor Name Role Phone Stanton Velasco MD Primary Care Provider [phone] Stanton Velasco MD Unavailable [phone] Daniel Alvina ARACELI Unavailable Reason for Visit * Reason Onset Date Comments xray request 08/18/2024 Encounter Details Date Type Department Care Team (Late Contact Info) Description 08/18/2024 Telephone [facility] 112 [facility] 110 [place] [address] Stanton Velasco MD 112 [facility] 110 [place] [address] xray request Social History Tobacco Use Types Packs/Day Years [...] often do you attend chur ch or adventist services? 1 to 4 times per year [...] Recorded Patient Health Questionnaire-2 Score 0 04/16/2024 [facility] [place] of Occupat ional Health - Occupational Stress [...] place to sleep or slept in a fdc (including now)? No 10/20/2022 Sex and Gender Information Value Date Recorded Sex Assigned at Not on file Legal Sex Male 6:56 PM EDT Gender Identity Not on file Sexual Orientation Not on file documented as of this encounter Miscellaneous Notes * Telephone Encounter - Lucy Solorio LPN - 08/18/2024 2:[address] FABBY MICHAUD TO ORDER RIGHT SHOULDER XRAY--PLACED AND FAXED TO [facility] * Telephone Encounter - Clare Liao - 08/18/2024 1:39 PM EDT Patient took a fall last Sunday at the grocery store. He said that he is starting to think he might need an xray he said its his right shoulder that he had gotten replaced he wondered if he could get an order for an xray sent to [facility]. documented in this encounter Plan of Treatment Scheduled Orders Name Type Priority Associated Diagnoses Orde r Schedule XR shoulder 2+ views right Imaging Routine Acute pain of right shoulder Expected: 08/18/2024, Expires: 08/18/2025 documented as of this encounter Visit Diagnoses Diagnosis Acute pain of right shoulder documented in this encounter Additional Health Concerns Assessment Noted Time PHQ-9 Depression Total Score: 0 05/23/19 24 9:00 AM EDT documented as of this encounter Care Teams Concrete Stone Finishing Supervisor Relationship Specialty Start Date End Date Stanton Velasco MD [address] [facility] 110 [place] [address] PCP - General Internal Medicine 08/18/22 Stanton Velasco MD [address] [facility] 110 [place] [address] PCP - Medical [facility] 02/13/2402/11 Alvina Sanchez LPN [address] [facility] [address] [place] [address] 05/06/24 documented as of this encounter
--- OUTSIDE RECORDS SUMMARY | 2024-08-18 15:49 | XMS_ITS | Clinical Summary ---
Author Organization [facility] Address [address] [place] [address] Care Team Providers Care Jeep Driver Name Role Phone Stanton Velasco MD Primary Care Provider [phone] Allergies Active Allergy Reactions Criticality Noted Date Comments Bee Pollen Other,Swelling 01/30/2014 Bee Venom Protein (Honey Bee) Unknown,Swelling 12/30/2018 Other Reaction(s): Unknown Oxybutynin Unknown 06/20/2013 Other Reaction(s): Constipation Trospium Unknown Low 03/31/2014 Other Reaction(s): Xerostomia Medications rosuvastatin (Crestor) 40 mg tablet Crestor 40 mg tablet Active isosorbide mononitrate ER (Imdur) 60 mg 24 hr tablet isosorbide mononitrate ER 60 mg tablet,extended release 24 hr Active metoprolol tartrate (Lopressor) 50 mg tablet every 12 (twelve) hours. Active aspirin 81 mg chewable tablet in the morning. Active cholecalciferol (Vitamin D-3) 25 MCG (1000 units) tablet Take 1,000 Units by mouth in the morning. Active loratadine (Claritin) 10 mg tablet Take 10 mg by mouth in the morning. 03/07/19 25 026 Active nitroglycerin (Nitrostat) 0.[address] 0.4 mg under the tongue every 5 (five) minutes if needed. Active ondansetron ODT (Zofran-ODT) 4 mg disintegrating tablet Take 4 mg by mouth every 4 (four) hours if needed. 03/31/19 25 Active tiZANidine (Zanaflex) 4 mg tablet Take 1 tablet by mouth every 6 (six) hours during the day. 11/02/19 24 Active trospium (Sanctura) 20 mg tablet Take 20 mg by mouth twice a day. 09/11/19 24 Active plecanatide (Trulance) tablet tablet Take 3 mg by mouth in the morning. 12/14/19 23 Active linaCLOtide (Linzess) 290 mcg capsule Take 290 mcg by mouth before breakfast. 04/03/19 25 Active lisinopril 20 mg tabletIndications: Benign hypertensive heart disease without congestive heart failure Take 1 tablet (20 mg) by mouth once daily as directed. 90 tablet 3 07/15/19 25 Active Active Problems Problem Noted Date Diagnosed Date Chronic obstructive pulmonary disease 04/02/2024 Pulmonary granuloma of histoplasmosis 03/07/2024 Alteration in self-care ability 05/23/2023 06/11/2023 Benign prostatic hyperplasia with urinary obstru ction 05/23/2023 06/11/2023 Chronic idiopathic constipation 05/23/2023 06/11/2023 Chronic ischemic heart disease 05/23/2023 0 06/11/2023 Overview (06/11/2023): Aug 21, 2003 Entered By: CINDY OQUENDO Comment: DRUG-ELUTING STENTS X'S 2009 Entered By: CINDY OQUENDO Comment: CABG 2009 Entered By: CINDY OQUENDO Comment: HEART CATH 12/08/09 Edema 05/23/2023 06/11/2023 History of coronary artery disease 05/23/2023 06/11/2023 [facility] (current) use of anticoagulants 202306/11/2023 Multiple nodules of lung 05/23/2023 024 Overview (06/11/2023): Sep 24, 2012 Entered By: CINDY OQUENDO Comment: chest CT 09/2012: repeat 12 months Polyp of colon 05/23/2023 06/11/2023 Overview (06/11/2023): Mar 16, 2014 Entered By: DEVAUGHN BUCHANAN [...] 1 year. Due Sep 2018 Presbyopia 05/23/2023 06/11/2023 Abnormal gait 08/21/2022 06/11/2023 Arthritis of both knees 08/21/2022 06/11/19 24 Contracture of right hip joint 08/21/2022 0 06/11/2023 Disturbance of skin sensation 08/21/2022 Diverticulosis of colon 08/21/2022 06/11/19 24 Dyslipidemia 08/21/2022 06/11/2023 History of right knee joint replacement 08/22/19 23 06/11/2023 Impingement syndrome of left shoulder 08/21/2022 06/11/2023 Mild cognitive disorder 08/21/2022 06/11/19 Raynaud's syndrome without gangrene 08/21/2022 06/11/2023 Seasonal allergic rhinitis 08/21/202206/10 Stage 2 chronic kidney disease 08/21/2022 0 06/11/2023 Atopic dermatitis 06/26/2022 06/11/2023 Aftercare following joint replacement surgery Complete rotator cuff tear o r rupture of right shoulder, not specified as traumatic 05/04/2021 Hyperlipidemia, unspecified 05/04/2021 Muscle wasting and atrophy, not elsewhere classified, multiple sites 05/04/2021 Other chronic pain 05/04/2021 Bladder disorder, unspecified 05/04/2021 Unsteadiness on feet 05/04/2021 Vitamin D deficiency, unspecified 05/04/2021 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 Urge incontinence 06/20/2017 Overview (05/24/2022): Added automatically from request for surgery [id number] Last Assessment & Plan: Assessment: Patient states that he self caths twice daily. Cervical stenosis of spine 05/29/2017 Preop testing 05/04/2017 Overview (05/24/2022): Added automatically from request for surgery [id number] Cervical spondylosis with myelopathy 05/04/2017 Overview (05/24/2022): Added automatically from request for surgery [id number] Brachial plexopathy 03/12/2017 Shoulder weakness 03/12/2017 Coronary atherosclerosis 11/20/2011 Dyspnea 11/20/2011 Essential hypertension 11/20/2011 Overview (05/24/2022): Last Assessment & Plan: Assessment: Stable, controlled with RX medication Mixed hyperlipidemia 11/20/2011 CAD (coronary artery disease) 02/13/2004 Overview (05/24/2022): PA in 1997. 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 S/T CABG 2004. Follows with professor of psychiatry Encounters Date Type Department Care Team Description 07/14/2024 Refill [facility] [address] [facility] [place] [address] Mayra Ordoñez MA Benign hypertensive heart disease without congestive heart failure 07/14/2024 Orders Only [facility] [address] [facility] [place] [address] Mayra Ordoñez MA 05/21/2024 1:30 PM EDT Office Visit [address] [place] [address] Tamanna Joshua MD Benign hypertensive heart disease without congestive heart failure (Primary Dx); Coronary artery disease involving [place] coronary artery of [place] heart without angina pectoris; Nonrheumatic mitral valve regurgitation 05/21/2024 Orders Only [facility] [address] [facility] [place] [address] Michelle Alvarado MA Nonrheumatic mitral valve regurgitation from Last 3 Months Family History Medical History Relation Name Comments Coronary artery disease Other Heart attack Other Stroke Other Relation Name Status Comments Other Social History Tobacco Use Types Packs/Day Years Used Date Smoking Tobacco: Former Cigarettes Smokeless Tobacco: Never Tobacco Cessation:Counseling Given: Not Answered Alcohol Use Standard Drinks/Week Comments Yes 0 (1 standard drink = 0.6 oz pur e alcohol) moderate [place] Safety & Environment Answer Date Rec orded Fear of Current or Ex-Partner Not on file Emotionally Abused Not on file 04/05/2023 Physically Abused Not on file 04/05/2023 Sexually Abused Not on file 04/05/2023 Physically or Sexually Abused Not on file Sex and Gender Information Value Date Recorded Sex Assigned at Not on file Legal Sex Male 10:12 PM EDT Gender Identity Not on file Sexual Orientation Not on file Last Filed Vital Signs Vital Sign Reading Time Taken Comments Blood Pressure 122/72 05/21/2024 1:19 PM EDT Pulse 63 05/21/2024 1:19 PM EDT Temperature - - Respiratory Rate - - Oxygen Saturation 96% 05/21/2024 1:19 PM EDT Inhaled Oxygen Concentration - - Weight 98.9 kg (218 lb) 05/21/2024 1:19 PM EDT Height 177.8 cm (5' 10 ) 05/21/2024 1:19 PM EDT Body Mass Index 31.28 05/21/2024 1:19 PM EDT Plan of Treatment Health Maintenance Due Date Last Done Comments CT Colonography 1948 Colonoscopy 1948 Colorectal Cancer Screening 1948 FIT-DNA 1948 FIT 1948 FOBT 1948 Medicare Annual Wellness (AWV) 1948 Sigmoidoscopy 1948 Depression Screening 1960 Fall Risk Screening 2013 COVID-19 Vaccine ( season) 2024 11/12/2023, 12/12/2022, 11/17/2021, Additional history exists Influenza Vaccine (#1) 2024 , 11/09/2022, 11/17/2021, Additional history exists Adult Tetanus 09/09/2031 09/08/2021, 06/13, 09/02/2004 Zoster Vaccines Completed 11/16/2020, 06/12, 07/04/2018, Additional history exists Pneumococcal Vaccine: 50+ Years Completed 09/08/2021, 11/12/2017, 06/25/2017, Additional history exists HIB Vaccines Aged Out No longer eligi ble based on patient's age to complete this topic HPV Vaccines Aged Out No longer eligi ble based on patient's age to complete this topic IPV Vaccines Aged Out No longer eligi ble based on patient's age to complete this topic Meningococcal B Vaccine Aged Out No l onger eligible based on patient's age to complete this topic Meningococcal Vaccine Aged Out No vicenta fer eligible based on patient's age to complete this topic Rotavirus Vaccines Aged Out No longer eligible based on patient's age to complete this topic Insurance Care Teams Jeep Driver Relationship Specialty Start Date End Date Stanton Velasco MD [address] [facility] [address] [place] [address] PCP - General 05/23/22
--- OUTSIDE RECORDS SUMMARY | 2024-08-18 15:49 | XMS_ITS | Encounter Summary ---
Author Organization [facility] Address [address] [facility] [place] [address] Care Team Providers Care Flight Deck Officer Name Role Phone Stanton Velasco MD Primary Care Provider [phone] Stanton Velasco MD Unavailable [phone] Alvina Sanchez LPN Unavailable Encounter Details Date Type Department Care Team (Late st Contact Info) Description 05/19/2024 Abstract [facility] [address] [facility] 110 [place] [address] Stanton Velasco MD 112 [facility] 110 [place], [place] [id number] Social History Tobacco Use Types Packs/Day Years [...] How often do you attend chur or hoahaoism services? 1 to 4 times per year 10/20/2022 Do you belong to any clubs o r organizations such as yazdanism groups, unions, fraternal or athletic groups, or [...] Recorded Patient Health Questionnaire-2 Score 0 04/16/2024 [facility] of Occupat ional Health - Occupational Stress [...] place to sleep or slept in a nursing home (including now)? No 10/20/2022 Sex and [...] documented as of this encounter Care Teams Flight Deck Officer Relationship Specialty Start Date End Date Stanton Velasco MD [address] [address] PCP - General Internal Medicine 08/18/22 Stanton Velasco MD [address] [facility] 110 [place] [address] PCP - Medical [facility] 02/13/2402/11 Alvina Sanchez LPN [address] [facility] [address] [place] [address] 05/06/24 documented as of this encounter
--- OUTSIDE RECORDS SUMMARY | 2024-08-18 15:50 | XMS_ITS | Encounter Summary ---
Author Organization [facility] Address [address] [facility] [address] Care Team Providers Care Sponge Hooker Name Role Phone Stanton Velasco MD Primary Care Provider [phone] Emelyn Hall RN Unavailable [phone] Stanton Velasco MD Unavailable [phone] Alvina Sanchez LPN Unavailable Encounter Details Date Type Department Care Team (Late st Contact Info) Description 02/18/2024 Abstract [facility] 112 [facility] [address] [place] [address] Stanton Velasco MD 112 [facility] [address] [place] [address] Social History Tobacco Use Types [...] often do you attend chur ch or christian services? 1 to 4 times per year 10/20/2022 Do you belong to any clubs o r organizations such as adventism groups, unions, fraternal or athletic groups, or [...] Date Recorded Patient Health Questionnaire-2 Score 0 02/15/2024 [facility] of Occupat ional Health - Occupational Stress [...] place to sleep or slept in a intermediate (including now)? No 10/20/2022 Sex and Gender [...] documented as of this encounter Care Teams Sponge Hooker Relationship Specialty Start Date End Date Stanton Velasco MD [address] [facility] [address] [place] [address] PCP - General Internal Medicine 08/18/22 Stanton Velasco MD [address] [facility] [address] [place] [address] PCP - Medical [place] DIAZ 02/13/2402/11 Emelyn Hall, LEATHA [address] [place], [place] [address] [facility] 03/21/24 05/06/24 Alvina Sanchez LPN 112 [facility] [address] [place] [address] 05/06/24 documented as of this encounter
--- OUTSIDE RECORDS SUMMARY | 2024-08-18 15:50 | XMS_ITS | Encounter Summary ---
Author Organization [facility] Address [address] [place] [address] Care Team Providers Care Care Director Rn Name Role Phone Hossein Tran DO Unavailable [phone] David Carrillo MD Unavailable [phone] Rod FATIMA MD, Stanton Payne Primary Care Provider [phone] Source Comments In the event this information is protected by the Federal Confidentiality of Alcohol and Drug AbusePatient Records regulations: The Federal rules restrict any use of the information to criminally investigate or prosecute any alcohol or drug abuse patient.[facility] Reason for Visit * Reason Comments Patient Update Encounter Details Date Type Department Care Team (Late st Contact Info) Description 09/07/2023 Telephone Urology [address] [place] [address] Dianne Roldan MD [address] [place] [address] Patient Update Social History Tobacco Use Types Packs/Day Years [...] (1-100), lower number is lower ri sk 93 06/23/2022 State Score (1-10), lower number is lower risk 9 06/23/2022 Data from: https://www.neighborhoodatlas.medicine.[facility]/. Last address used for calculation [address] 06/23/2022 Sex and Gender Information Value Date Recorded Sex Assigned at Male 07/19/2023 9:29 AM EDT Legal Sex Male 3:19 PM EST Gender Identity Male 07/19/2023 9:29 AM EDT Sexual Orientation Not on file documented as of this encounter Functional Status * Are you deaf or do you have serious difficulty hearing? Answer Date of Assessment Author No 05/04/2021 3:26 PM EDT Diego Schaeffer RN * Are you blind or do you have serious difficulty seeing, even when wearing glasses? Answer Date of Assessment Author No 05/04/2021 3:26 PM Diego Yu RN * Do you have serious difficulty walking or climbing stairs? Answer Date of Assessment Author Yes 05/04/2021 3:26 PM LEAHT Diego Schaeffer RN * Do you have difficulty dressing or bathing? Answer Date of Assessment Author No 10/31/2018 3:35 PM EDT Larissa Moreira RN * Because of a physical, mental, or emotional condition, do you have difficulty doing errands alone such as visiting a doctor's office or shopping? Answer Date of Assessment Author Yes 05/04/2021 3:26 PM Diego Yu RN documented as of this encounter Mental Status * Because of a physical, mental, or emotional condition, do you have serious difficulty concentrating, remembering, or making decisions? Answer Entry Date Author No 05/04/2021 3:26 PM Diego Yu RN documented in this encounter Miscellaneous Notes * Telephone Encounter - Corry Gregory APRN.CNP - 09/07/2023 5:44 PM EDT Fahad Sotelo had dilation on 08/02/2023, then resumed ISC. Had UDS on 08/22/2023: Called to follow up on UDS Cathing [...] Will call with how he is feeling Called Fahad Sotelo. He reports that he is voiding very little on his own and has cathed 6-7 timestoday. Just felt very strong urge but then had only 6 oz when he cathed. Cathing without difficulty. He has 2 pages of voiding data but does not know how to submit it. Gave him fax number and email address. He will get his sister to help him send it. Corry Gregory APRN.NAVEEN * Telephone Encounter - Luzma Scott - 09/07/2023 1:16 PM EDT Pt states that he is having a hard time voiding on his own, states he always feels like he has to go. documented in this encounter Plan of Treatment Upcoming Encounters Date Type Department Care Team (Late st Contact Info) Description 08/26/2024 1:00 PM EDT Procedure Colorectal Surgery [facility] [address] [place] [address] Kristal Jeong APRN.ASSEM[employer]ER [employer] [address] [place] [address] New Pt: Abdominal Pain, diarrhea, ref by Dr. Solorio 08/26/2024 1:30 PM EDT Office Visit Colorectal Surgery [address] [facility] [address] [place], [place] [id number] Kristal Jeong APRN.[employer]SEM[employer]ER [employer] [address] [place] [address] New Pt: Abdominal Pain, diarrhea, ref by Dr. Solorio documented as of this encounter Visit Diagnoses Not on filedocumented in this encounter Care Teams Care Director Rn Relationship Specialty Start Date End Date Stanton Velasco II, MD 112 [facility] 110 [place] [address] PCP - General Internal Medicine 04/01/21 Hossein Tran DO [address] [place] [phone] Referring Ophthalmology 08/28/16 David Carrillo MD [address] [place] [address] Referring Urology 10/06/16 documented as of this encounter
--- OUTSIDE RECORDS SUMMARY | 2024-08-18 15:50 | XMS_ITS | Encounter Summary ---
Author Organization [facility] Address [address] [facility] [place] [address] Care Team Providers Care Motor Vehicle Parts Interpreter Name Role Phone Stanton Velasco MD Unavailable [phone] Stanton Velasco MD Primary Care Provider [phone] Emelyn Hall RN Unavailable [phone] Stanton Velasco MD Unavailable [phone] Alvina Sanchez LPN Unavailable Encounter Details Date Type Department Care Team (Late st Contact Info) Description 09/06/2022 Abstract [facility] 112 [facility] [address] [place] [address] Stanton Velasco MD [address] [facility] [address] [place], [place] [address] Social History Tobacco Use Types Packs/Day Years Used Date Smoking Tobacco: Never Smokeless Tobacco: Never Alcohol Use Standard Drinks/Week Comments Never 0 (1 standard drink = 0.6 oz pur e alcohol) Sex and Gender Information Value Date Recorded Sex Assigned at Not on file Legal Sex Male 6:56 PM EDT Gender Identity Not on file Sexual Orientation Not on file documented as of this encounter Plan of Treatment Not on file documented as of this encounter Visit Diagnoses Not on filedocumented in this encounter Care Teams Motor Vehicle Parts Interpreter Relationship Specialty Start Date End Date Stanton Velasco MD [address] [facility] [address] [place], [place] [address] PCP - Devoted 02/12/21 02/12/24 Stanton Velasco MD [address] [facility] [address] [place] [address] PCP - General Internal Medicine 08/18/22 Stanton Velasco MD [address] [facility] [address] [place] [address] PCP - Medical [facility] 02/13/2402/11 Emelyn Hall, RN [address] [place] [address] Clinical [facility] 03/21/24 05/06/24 Alvina Sanchez LPN [address] [place] [address] 05/06/24 documented as of this encounter
--- OUTSIDE RECORDS SUMMARY | 2024-08-18 15:50 | XMS_ITS | Encounter Summary ---
Author Organization [facility] Address [address] [facility] [place] [address] Care Team Providers Care Supervisor Core Drilling Name Role Phone Stanton Velasco MD Unavailable [phone] Stanton Velasco MD Primary Care Provider [phone] Emelyn Hall RN Unavailable [phone] Stanton Velasco MD Unavailable [phone] Alvina Sanchez LPN Unavailable Encounter Details Date Type Department Care Team (Late st Contact Info) Description 01/01/2023 Abstract [facility] 112 [facility] [address] [place] [phone] Stanton Velasco MD 112 [facility] [address] [place] [address] Social History Tobacco Use Types Packs/Day Years Used Date Smoking Tobacco: Never Smokeless Tobacco: Never Alcohol Use Standard Drinks/Week Comments Never 0 (1 standard drink = 0.6 oz pur e alcohol) Humiliation, Afraid, Rape, and Kick questionnair e [...] How often do you attend chur or faith services? 1 to 4 times per year 10/20/2022 Do you belong to any clubs o r organizations such as baptist groups, unions, fraternal or athletic groups, or [...] and heating? Not hard at all 10/20/2022 [facility] of Occupat ional Health - Occupational [...] place to sleep or slept in a penitentiary (including now)? No 10/20/2022 Sex and Gender Information Value Date Recorded Sex Assigned at Not on file Legal Sex Male 6:56 PM EDT Gender Identity Not on file Sexual Orientation Not on file documented as of this encounter Plan of Treatment Not on file documented as of this encounter Visit Diagnoses Not on filedocumented in this encounter Care Teams Supervisor Core Drilling Relationship Specialty Start Date End Date Stanton Velasco MD [address] [facility] [address] [place] [address] PCP - Devoted 02/12/21 02/12/24 Stanton Velasco MD [address] [facility] [address] [place] [address] PCP - General Internal Medicine 08/18/22 Stanton Velasco MD [address] [facility] [address] [place] [address] PCP - Medical [place] 02/13/2402/11 Emelyn Hall, RN [address] [place] [address] Clinical [facility] 03/21/24 05/06/24 Alvina Sanchez LPN 112 [facility] 110 [place] [address] 05/06/24 documented as of this encounter
--- OUTSIDE RECORDS SUMMARY | 2024-08-18 15:50 | XMS_ITS | Encounter Summary ---
Author Organization [facility] Address [address] [place] [address] Care Team Providers Care Paraffin Plant Operator Name Role Phone Hossein Tran DO Unavailable [phone] David Carrillo MD Unavailable [phone] Rod FATIMA MD, Stanton Payne Primary Care Provider [phone] Source Comments In the event this information is protected by the Federal Confidentiality of Alcohol and Drug AbusePatient Records regulations: The Federal rules restrict any use of the information to criminally investigate or prosecute any alcohol or drug abuse patient.[facility] Reason for Visit * Reason Comments Patient Update Encounter Details Date Type Department Care Team (Late st Contact Info) Description 12/17/2023 Telephone Urology [address] [place] [address] Dianne Roldan MD [address] [place] [address] Patient Update Social History Tobacco [...] is lower risk 9 06/23/2022 Data from: https://www.neighborhoodatlas.medicine.[facility]/. Last address used for calculation [address] [...] encounter Miscellaneous Notes * Telephone Encounter - Luzma Scott - 12/17/2023 10:01 AM EST Pt states that he stopped taking the trospium because it caused constipation. Pt states that he hasbeen constipated since last . Pt doesn't want an alternative called in. documented in this encounter Plan of Treatment Upcoming Encounters Date Type Department Care Team (Late st Contact Info) Description 08/26/2024 1:00 PM EDT Procedure Colorectal Surgery [facility] [address] [place], [place] [phone] Kristal Jeong APRN.BANK CREDIT CARD COLLECTION CLERK [address] [place] [address] New Pt: Abdominal Pain, diarrhea, ref by Dr. Solorio 08/26/2024 1:30 PM EDT Office Visit Colorectal Surgery [facility] [address] [place] [address] Kristal Jeong, AD COMPOSITOR.BANK CREDIT CARD COLLECTION CLERK [address] [place] [address] New Pt: Abdominal Pain, diarrhea, ref by Dr. Solorio documented as of this encounter Visit Diagnoses Not on filedocumented in this encounter Care Teams Paraffin Plant Operator Relationship Specialty Start Date End Date Stanton Velasco II, MD [address] [place] [address] [address] [place] [address] PCP - General Internal Medicine 04/01/21 Hossein Tran DO [address] [place] [address] Referring Ophthalmology 08/28/16 David Carrillo MD [address] [place] [address] Referring Urology 10/06/16 documented as of this encounter
--- OUTSIDE RECORDS SUMMARY | 2024-08-18 15:50 | XMS_ITS | Encounter Summary ---
Author Organization [facility] Address [address] [place] [address] Care Team Providers Care Division Superintendent Name Role Phone Stanton Velasco MD Unavailable [phone] Stanton Velasco MD Primary Care Provider [phone] Emelyn Hall RN Unavailable [phone] Stanton Velasco MD Unavailable [phone] Alvina Sanchez LPN Unavailable Encounter Details Date Type Department Care Team (Late st Contact Info) Description 06/28/2023 Clinisync Result Encounter [facility] External Department Unsolicited Provider, Generic External Data Social History Tobacco Use Types Packs/Day Years [...] friends, or neighbors? Once a week 10/21/19 23 How often do you get togethe r with friends or relatives? Once a week 10/20/2022 How often do you attend chur ch or taoist services? 1 to 4 times per year 10/20/2022 Do you belong to any clubs o r organizations such as latter day groups, unions, fraternal or athletic groups, or [...] Date Recorded Patient Health Questionnaire-2 Score 0 05/23/2023 [facility] - Occupational Stress Questionnaire Answer Date Recorded [...] place to sleep or slept in a senior care (including now)? No 10/20/2022 Sex and Gender Information Value Date Recorded Sex Assigned at Not on file Legal Sex Male 6:56 PM EDT Gender Identity Not on file Sexual Orientation Not on file documented as of this encounter Plan of Treatment Not on file documented as of this encounter Procedures Procedure Name Priority Date/Time Associated Diagnosis Comments NM ROSENDA PERF SPECT REST STR 06/28/2023 3:30 PM EDT documented in this encounter Results * NM ROSENDA PERF SPECT REST STR (06/28/2023 3:30 PM EDT) Anatomical Region Laterality Modality Other 06/28/2023 3:30 PM EDT Narrative 06/28/2023 3:31 [place] [address] Nuclear Medicine Report Signed Patient: Chelsea Sotelo MR#: [id number] : 1950 Acct:[id number] Age/Sex: 72 / M ADM Date: 06/27/23 Loc: [place] Attending Dr: Octavio Mcmillan M.D. Ordering Physician: Octavio Mcmillan M.D. Date of Service: 06/27/23 Procedure(s): NM rosenda perf SPECT rest str Accession Number(s): [id number] cc: STANTON VELASCO ; Octavio Mcmillan M.D. Patient Name: CHELSEA SOTELO MR#: [id number] : 1950 Exam Date: 06/27/2023 Ordering Doctor: DR OCTAVIO MCMILLAN M.D. RADIOLOGY REPORT PROCEDURE: NM ROSENDA PERF [...] study was normal per attending physician Dr. Mcmillan . For more details please see separate cardiac stress test report. FINDINGS: QUALITY OF STUDY: Excellent. PERFUSION DEFECT: None. LOCATION: N/A SIZE: N/A. SEVERITY: N/A. TYPE: N/A. WALL MOTION: Normal. LV SIZE: Normal. 112 mL. TID / TCD: None; 1.0 LVEF: Normal. Calculated EF 62%. SUMMARY: Myocardial perfusion imaging study is NORMAL. CONCLUSION: 1. Normal nuclear medicine myocardial perfusion scan. Dictated by: Silverio Boykin M.D. on 06/28/2023 at 15:25 Approved by: Silverio Boykin M.D. on 06/28/2023 at 15:30 Dictated By: Silverio Boykin M.D. Signed By: 06/28/23 1531 DD/ 1530 TD/TT: Mobile Paramedical Examiner: Procedure Note Radiology, Radiologist, MD - 06/28/2023 [place] [address] Nuclear Medicine Report Signed Patient: Chelsea Sotelo AMR#: [id number] : 9Acct:[id number] Age/Sex: 72 / MADM Date: 06/27/23 Loc: [facility] Attending Dr: Octavio Mcmillan M.D. Ordering Physician: Octavio Mcmillan M.D. Date of Service: 06/27/23 Procedure(s): NM rosenda perf SPECT rest str Accession Number(s): [id number] cc: STANTON VELASCO ; Octavio Mcmillan M.D. Patient Name: CHELSEA SOTELO MR#: [id number] : 1950 Exam Date: 06/27/2023 Ordering Doctor: DR OCTAVIO MCMILLAN M.D. RADIOLOGY REPORT PROCEDURE: NM ROSENDA PERF [...] findings were normal and the exercise portion ofthe study was normal per attending physician Dr. Mcmillan . For more details please see separate cardiac stress test report. FINDINGS: QUALITY OF STUDY: Excellent. PERFUSION DEFECT: None. LOCATION: N/A SIZE: N/A. SEVERITY: N/A. TYPE: N/A. WALL MOTION: Normal. LV SIZE: Normal. 112 mL. TID / TCD: None; 1.0 LVEF: Normal. Calculated EF 62%. SUMMARY: Myocardial perfusion imaging study is NORMAL. CONCLUSION: 1. Normal nuclear medicine myocardial perfusion scan. Dictated by: Silverio Boykin M.D. on 06/28/2023 at 15:25 Approved by: Silverio Boykin M.D. on 06/28/2023 at 15:30 Dictated By: Silverio Boykin M.D. Signed By:06/28/23 1531 DD/ 1530 TD/TT: Mobile Paramedical Examiner: us Generic External Data Provider [facility] Final Result documented in this encounter Visit Diagnoses Not on filedocumented in this encounter Additional Health Concerns Assessment Noted Time PHQ-9 Depression Total Score: 0 05/23/19 24 9:00 AM EDT documented as of this encounter Care Teams Division Superintendent Relationship Specialty Start Date End Date Stanton Velasco MD [address] [facility] [address] [place] [address] PCP - Devoted 02/12/21 02/12/24 Stanton Velasco MD [address] [facility] [address] [place] [address] PCP - General Internal Medicine 08/18/22 Stanton Velasco MD [address] [facility] [address] [place] [address] PCP - Medical [facility] 02/13/2402/11 Emelyn Hall, RN [address] [place] [address] Clinical [facility] Family [facility] 03/21/24 05/06/24 Alvina Sanchez LPN [address] [facility] [address] [place] [address] 05/06/24 documented as of this encounter
--- OUTSIDE RECORDS SUMMARY | 2024-08-18 15:50 | XMS_ITS | Encounter Summary ---
Author Organization [facility] Address [address] [facility] [place] [address] Care Team Providers Care Information Technology Project Manager Name Role Phone Stanton Velasco MD Primary Care Provider [phone] Emelyn Hall RN Unavailable [phone] Stanton Velasco MD Unavailable [phone] Alvina Sanchez LPN Unavailable Encounter Details Date Type Department Care Team (Late st Contact Info) Description 02/27/2024 Abstract [facility] [address] [facility] [address] [place] [address] Stanton Velasco MD 112 [facility] [address] [place] [address] Social History Tobacco Use Types [...] often do you attend chur ch or mandaen services? 1 to 4 times per year 10/20/2022 Do you belong to any clubs o r organizations such as christian groups, unions, fraternal or athletic groups, or [...] Recorded Patient Health Questionnaire-2 Score 0 02/15/2024 [facility] [place] of Occupat ional Health - Occupational Stress [...] place to sleep or slept in a residential (including now)? No 10/20/2022 Sex and Gender [...] documented as of this encounter Care Teams Information Technology Project Manager Relationship Specialty Start Date End Date Stanton Velasco MD [address] [facility] [address] [place] [address] PCP - General Internal Medicine 08/18/22 Stanton Velasco MD [address] [facility] [address] [place] [address] PCP - Medical [place] DIAZ 02/13/2402/11 Emelyn Hall, LEATHA [address] [place], [place] [address] Clinical [facility] 03/21/24 05/06/24 Alvina Sanchez LPN 112 [facility] [address] [place] [address] 05/06/24 documented as of this encounter
--- OUTSIDE RECORDS SUMMARY | 2024-08-18 15:50 | XMS_ITS | Encounter Summary ---
Author Organization [facility] Address [address] [place] [address] Care Team Providers Care Insulator Technician Name Role Phone Hossein Tran DO Unavailable [phone] Davdi Carrillo MD Unavailable [phone] Rod FATIMA MD, Stanton Payne Primary Care Provider [phone] Source Comments In the event this information is protected by the Federal Confidentiality of Alcohol and Drug AbusePatient Records regulations: The Federal rules restrict any use of the information to criminally investigate or prosecute any alcohol or drug abuse patient.[facility] Reason for Visit * Reason Comments Patient Update Encounter Details Date Type Department Care Team (Late st Contact Info) Description 10/09/2023 Telephone Urology [address] [place] [address] Dianne Roldan MD [address] [place] [address] Patient Update Social History Tobacco [...] is lower risk 9 06/23/2022 Data from: https://www.neighborhoodatlas.medicine.[facility]/. Last address used for calculation [address] [...] * Telephone Encounter - Luzma Scott - 10/09/2023 11:45 AM EDT Pt states that since the botox he hasn't been able to empty his bladder on his own. He states he has to hold his breathe and nothing barely comes out. States that he caths himself at least 4xs a day to completely empty his bladder. documented in this encounter Plan of Treatment Upcoming Encounters Date Type Department Care Team (Late st Contact Info) Description 08/26/2024 1:00 PM EDT Procedure Colorectal Surgery [facility] [address] [place] [address] Kristal Jeong APRN.CITY DESIGNER [address] [place] [address] New Pt: Abdominal Pain, diarrhea, ref by Dr. Solorio 08/26/2024 1:30 PM EDT Office Visit Colorectal Surgery [facility] [address] [place] [address] Kristal Jeong, IT RISK ADVISOR.CITY DESIGNER [address] [place] [address] New Pt: Abdominal Pain, diarrhea, ref by Dr. Solorio documented as of this encounter Visit Diagnoses Not on filedocumented in this encounter Care Teams Insulator Technician Relationship Specialty Start Date End Date Stanton Velasco II, MD 112 [facility] [address] [place] [address] PCP - General Internal Medicine 04/01/21 Hossein Tran DO [address] [place] [address] Referring Ophthalmology 08/28/16 David Carrillo MD [address] [place] [address] Referring Urology 10/06/16 documented as of this encounter
--- OUTSIDE RECORDS SUMMARY | 2024-08-18 15:50 | XMS_ITS | Encounter Summary ---
Author Name [facility] ([place]) Organization [facility] Address [address] [place] [address] Care Team Providers Care Photographic Equipment Inspector Name Role Phone CHARLENE APONTE Primary Care [...] Lopez's Name Patient's Relationship to Policy Lopez ANTHEM [facility] ([facility]) MEDICARE ADVANTAGE [facility] ([facility]) [id number] CHHAYA PATEL PATIENT [employer] MCR (WNR) MEDICARE ADVANTAGE [facility] (WNR) Feb 12, 2017 [id number] CHHAYA PATEL PATIENT [employer] MCR (WNR) MEDICARE ADVANTAGE [facility] (WNR) Feb 13, 2024 [id number] CHHAYA PATEL PATIENT MEDICARE PART D ([facility]) PRESCRIPT ION PART D Feb 12, 2017 PART D [id number] CHHAYA PATEL PATIENT MEDICO LIFE INSURANCE SPECIAL CLASS INSURANCE LIMIT ED [facility] JUNIOR Feb 12, 2017 [id number] [phone] CHHAYA PATEL PATIENT Selected Encounter This section includes the information on record at [place] for the Encounter. Date/Time Encounter Type Encounter Description Reason Pro vider Source IHE Encounter Template Text not used by [place]
--- OUTSIDE RECORDS SUMMARY | 2024-08-18 15:50 | XMS_ITS | Encounter Summary ---
Author Organization [facility] Address [address] [facility] [place] [address] Care Team Providers Care Economics Lecturer Name Role Phone Stanton Velasco MD Unavailable [phone] Stanton Velasco MD Primary Care Provider [phone] Emelyn Hall RN Unavailable [phone] Stanton Velasco MD Unavailable [phone] Alvina Sanchez LPN Unavailable Encounter Details Date Type Department Care Team (Late st Contact Info) Description 10/24/2023 Abstract [facility] 112 [facility] [address] [place] [id number] Stanton Velasco MD 112 [facility] [address] [place] [address] Social History Tobacco Use Types [...] often do you attend chur ch or scientologist services? 1 to 4 times per year 10/20/2022 Do you belong to any clubs o r organizations such as buddhism groups, unions, fraternal or athletic groups, or [...] Recorded Patient Health Questionnaire-2 Score 0 05/23/2023 [facility] - Occupational [...] place to sleep or slept in a halfway (including now)? No 10/20/2022 Sex and Gender [...] Time PHQ-9 Depression Total Score: 0 05/23/19 9:00 AM EDT documented as of this encounter Care Teams Economics Lecturer Relationship Specialty Start Date End Date Stanton Velasco MD [address] [facility] [address] [place] [address] PCP - Devoted 02/12/21 02/12/24 Stanton Velasco MD [address] [facility] [address] [place] [address] PCP - General Internal Medicine 08/18/22 Stanton Velasco MD [address] [facility] [address] [place] [address] PCP - Medical [place] 02/13/2402/11 Emelyn Hall, RN [address] [place] [address] Clinical Advocate Family Medicine 03/21/24 05/06/24 Alvina Sanchez LPN 112 [facility] [address] [place] [address] 05/06/24 documented as of this encounter
--- OUTSIDE RECORDS SUMMARY | 2024-08-18 15:50 | XMS_ITS | Clinical Summary ---
Author Organization [facility] Address [address] [place], [place] [address] Care Team Providers Care Strawhat Blocking Operator Name Role Phone Hossein Tran DO Unavailable [phone] David Carrillo MD Unavailable [phone] Rod FATIMA MD, Stanton Payne Primary Care Provider [phone] Allergies Active Allergy Reactions Criticality Noted Date Comments Bee Pollen Swelling 01/30/2014 Bee Sting Swelling 01/02/2019 Seasonal Allergies Other: See Comments 04/13/19 22 Sneezing. Oxybutynin Other: See Comments 06/20/2013 Other Reaction(s): Constipation Trospium Other: See Comments Low 03/31/2014 Other Reaction(s): Xerostomia Venom-Honey Bee Other: See Comments,Swelling 12/30/2018 Other Reaction(s): Unknown Medications isosorbide mononitrate ER (IMDUR) 60 mg 24 hr tablet Take 60 mg by mouth once daily. Active cholecalciferol (VITAMIN D3) 1,000 unit tab tablet Take 1,000 Units by mouth once daily. Active Multivitamin capsule Take 1 capsule by mouth once daily. Active rosuvastatin (CRESTOR) 40 mg tablet Take 40 mg by mouth once daily. Active MAGNESIUM HYDROXIDE (MILK OF MAGNESIA ORAL) Take 1 Bottle by mouth as needed. Active ascorbic acid, vitamin C, (VITAMIN C) 500 mg tablet Take 1 tablet by mouth once daily. 8 Active lisinopril (ZESTRIL, PRINIVIL) 20 mg tablet Take 20 mg by mouth once daily. 3 8 Active COMPOUNDED PRESCRIPTION 16 fr catheters 30 Device 11 8 Active metoprolol tartrate, short acting, (LOPRESSOR) 50 mg tabletIndications: Coronary artery disease involving curyung coronary artery of curyung heart without angina pectoris,Essential hypertension,Hyper lipidemia, unspecified hyperlipidemia type Take 1 tablet by mouth twice daily. 9 Active aspirin, enteric coated (ASPIRIN, ENTERIC COATED) 81 mg EC tablet Take 1 tablet by mouth twice daily. 84 tablet 9 Active acetaminophen (TYLENOL) 500 mg tablet Take 2 tablets by mouth every 6 hours as needed for pain. 2 Active Amoxicillin 500 mg tablet TAKE 4 TABLETS BY MOUTH 1 (ONE) HOUR BEFORE procedure then TAKE 2 TABLETS BY MOUTH 6 (SIX) hours after procedure 6 tablet 3 4 Active plecanatide (TRULANCE) 3 mg tablet Take 1 tablet by mouth once daily. 3 Active nitroglycerin sublingual (NITROQUICK) 0.4 mg SL tablet Active trospium (SANCTURA) 20 mg tablet Take 1 tablet by mouth two times a day. 30 tablet 4 4 Active Active Problems Problem Noted Date Diagnosed Date Pre-op evaluation 04/12/2021 Rotator cuff tear arthropathy of right shoulder 04/12/2021 History of lumbar fusion 06/17/2020 Primary osteoarthritis of right hip 06/17/2020 Loose right total knee arthroplasty 06/17/2020 Chronic knee pain after tota l replacement of right knee joint 11/14/2019 Osteoarthritis of right knee 10/30/2018 Obesity, Class I, BMI 30-34.9 10/28/2018 Assessment & Plan (07/05/2023 10:07 AM EDT): Assessment: Body mass index is 32.73 kg/m . Assessment & Plan (04/12/2021 11:34 AM EST): Assessment: Body mass index is 33.77 kg/m . Urge incontinence 06/20/2017 Overview (06/20/2017): Added automatically from request for surgery [id number] Assessment & Plan (07/05/2023 10:07 AM EDT): Assessment: Patient states that he self caths twice daily. Assessment & Plan (04/12/2021 11:49 AM EST): Assessment: Patient states that he self caths twice daily. Cervical stenosis of spine 05/29/2017 Cervical spondylosis with myelopathy 05/04/2017 Overview (05/04/2017): Added automatically from request for surgery [id number] Assessment & Plan (07/05/2023 10:05 AM EDT): Assessment: s/p cervical fusion Preop testing 05/04/2017 Overview (05/04/2017): Added automatically from request for surgery [id number] Shoulder weakness 03/12/2017 Brachial plexopathy 03/12/2017 Cervical spinal stenosis 03/12/2017 CAD (coronary artery disease) 02/13/2004 Overview (05/23/2017): NC in 1997. 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 in 2004 Assessment & Plan (07/05/2023 10:05 AM EDT): Assessment: NC in 1997. 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 S/T CABG 2004. Follows with bacteriology research assistant Assessment & Plan (10/10/2018 8:02 AM EDT): Assessment: pt had cardiac optimization visit 10/08/18 scanned into epic Stable, no further cardiovascular tests warranted, Ok to proceed Essential hypertension Assessment & Plan (07/05/2023 10:06 AM EDT): Assessment: Stable on medication Today BP: 124/70 To take medication morning of surgery Assessment & Plan (04/12/2021 11:33 AM EST): Assessment: Stable, controlled with RX medication Assessment & Plan (10/10/2018 8:02 AM EDT): Assessment: stable on current therapy Mixed hyperlipidemia Assessment & Plan (07/05/2023 10:06 AM EDT): Assessment: stable on medication Immunizations Immunization Administration Dates Next Due influenza (HD-IIV3) vaccine, age 65+ yr, high dose, trivalent, PF (FLUZONE HIGH-DOSE) 12/16/2019,10/31/2018,12/20/2017 influenza (HD-IIV4) vaccine, age 65+ yr, high dose, quadrivalent, PF (FLUZONE HIGH-DOSE) 11/16/2020,11/07/2019 pneumococcal polysaccharide (PPV23) vaccine, 23 valent (PNEUMOVAX 23) 11/12/2017 zoster (RZV) vaccine, recomb inant (SHINGRIX) 11/16/2020,06/23/2020 Family History Medical History Relation Comments Diabetes Brother Coronary Artery Disease Mother Stroke Mother Diabetes Sister Anesthesia Problems No Family History Relation Status Comments Brother Mother Sister Social History Tobacco Use Types Packs/Day Years Used Date Smoking Tobacco: Former Cigarettes 1.3 10 1 - 11/13/1997 Smokeless Tobacco: Never Tobacco Cessation:Counseling Given: Not [...] is lower risk 9 06/23/2022 Data from: https://www.neighborhoodatlas.medicine.[facility].edu/. Last address used for calculation [address] 06/23/2022 Sex and Gender Information Value Date Recorded Sex Assigned at Male 07/19/2023 9:29 AM EDT Legal Sex Male 3:19 PM EST Gender Identity Male 07/19/2023 9:29 AM EDT Sexual Orientation Not on file Last Filed Vital Signs Vital Sign Reading Time Taken Comments Blood Pressure 111/70 02/26/2024 1:40 PM EST Pulse 57 02/26/2024 1:40 PM EST Temperature 36.5 C (97.7 F) 08/02/2023 10:28 AM EDT Respiratory Rate 16 08/02/2023 10:40 AM EDT Oxygen Saturation 98% 02/26/2024 1:40 PM EST Inhaled Oxygen Concentration - - Weight 99.8 kg (220 lb 0.3 oz) 02/26/2024 1:40 P M EST Height 176.5 cm (5' 9.5 ) 02/26/2024 1:40 PM EST Body Mass Index 32.03 02/26/2024 1:40 PM EST Plan of Treatment Upcoming Encounters Date Type Department Care Team (Late st Contact Info) Description 08/26/2024 1:00 PM EDT Procedure [place] [address] Kristal Jeong, VIVIENNE.APPEALS ANALYST [address] [place] [address] New Pt: Abdominal Pain, diarrhea, ref by Dr. Solorio 08/26/2024 1:30 PM EDT Office Visit Colorectal Surgery [facility] [place] [address] [address] Kristal Jeong, BELLPERSON.APPEALS ANALYST [address] [place] [address] New Pt: Abdominal Pain, diarrhea, ref by Dr. Solorio Health Maintenance Due Date Last Done Comments Annual PCP Team Chronic Dise ase Visit 1966 Anxiety Screening 1966 Depression Screening 1966 Hepatitis C Screening 1966 CT Colonography 1993 Cologuard (FIT-DNA) 1993 Fecal Occult Blood 1993 Sigmoidoscopy 1993 Colonoscopy 10/12/2022 10/12/2021, 08/12, 10/12/2017, Additional history exists Colorectal Cancer Screening 10/12/2022 Advance Directive Discussion 02/13/2024 Medicare Advantage Annual We llness Visit 02/13/2024 LDL Cholesterol 04/06/2024 04/06/2023 Covid-19 Vaccine (8 - 4-2 5 season) 2024 11/12/2023, 12/12/2022, 11/17/2021, Additional history exists Influenza Vaccine (#1) 2024 , 11/09/2022, 11/17/2021, Additional history exists Diabetes Screening 07/04/2026 07/05/2023, 0 04/12/2021, 04/12/2021, Additional history exists Lipid Screening 04/06/2028 04/06/2023 DTaP,Tdap,Td Vaccine (3 - Td or Tdap) 09/09/2031 09/08/2021, 07/04/2018, 09/02/2004 Shingrix Vaccine Completed 11/16/2020, 01/2021, 07/04/2018, Additional history exists Pneumococcal Vaccine: 50+ Completed 2021, 11/12/2017, 06/25/2017, Additional history exists RSV Vaccine Completed 02/20/2024 Medical Devices Implanted Type Area Optical Lens Manufacturing Tech Device Identifier Shelf Expiration Date Model / Serial / Lot Vqh-Rr-N-Kind Implant - [id number] Implanted:Qty: 1 on 05/29/2017 at [facility] Implant N/A: Spine - Cervical Fonmatch 1102.3011 / / Description:11mm in line pito te Rdu-Kb-R-Kind Implant - [id number] Implanted:Qty: 1 on 05/29/2017 at [facility] Implant N/A: Spine - Cervical [employer] 1102.7000 / / Description:hinge plate Prolong Rev Shoulder Prosthesis Cup 36mm +3mm Retentive Thick Implanted:Qty: 1 on 05/02/2021 at [facility] Implant Right: Bone - Shoulder [employer] 02/22/2025 [id number] / / [id number] Stem Hum 83mm 14mm Cmprh Por - [id number] Implanted:Qty: 1 on 05/02/2021 at [facility] Implant Right: Bone - Shoulder [employer] 10/15/2030 [id number] / / [id number] Rev Shoulder Prosthesis Body 40mm +5mm Thick +0mm Taper Offset Implanted:Qty: 1 on 05/02/2021 at [facility] Implant Right: Bone - Shoulder [employer] 01/11/2029 [id number] / / [id number] Insert Triathlon 7 10mm Tibial Bearing Condylar Stabilize Sterile Knee - [id number] Implanted: 019 at [facility] (Quantity not on file) Joint - Knee Right: Bone - Knee [facility] 12/26/2022 5531-G-710 -E / / [id number] Baseplate Triathlon Tritanium 7 Tibial Knee - [id number] Implanted: at [facility] (Quantity not on file) Joint - Knee Right: Bone - Knee [facility] 07/23/2023 5536-B-700 / / [id number] Component Tritanium 38mm Metal 11mm Patellar Asymmetric Knee - [id number] Implanted: at [facility] (Quantity not on file) Joint - Knee Right: Bone - Knee [facility] 06/06/2023 5552-L-381 / / [id number] Component Triathlon 7 Pa Femoral Cruciate Retain Bead Knee Right - [id number] Implanted: at [facility] (Quantity not on file) Joint - Knee Right: Bone - Knee [facility] 07/27/2023 5517-F-702 / / [id number] Component Comprehensive Versa-Dial 36mm Standard Glenoid Glenosphere - [id number] Implanted:Qty: 1 on 05/02/2021 at [facility] Joint - Shoulder Right: Bone - Shoulder [employer] 03/03/2031 [id number] / / [id number] Lead Interstim 1.27mm 3mm Space Straight 33cm Neurostimulator Inline - [id number] Implanted:Qty: 1 on 07/06/2017 at [facility] Lead N/A: Spine - Lumbar [employer] 11/05/2019 [id number] / / [id number] Lead Interstim 1.27mm 3mm Space Straight 33cm Neurostimulator Inline - [id number] Implanted:Qty: 1 on 07/20/2017 at [facility] Lead N/A: Spine - Sacrum [employer] [id number] / / [id number] Plate Canopy 9mm Bone Shelf Inline Spine - [id number] Implanted:Qty: 2 on 05/29/2017 at [facility] Plate N/A: Spine - Cervical [employer] 1102.3009 / / Baseplate Comprehensive 25mm Mini Glenoid Taper Adapter Reverse Shoulder - [id number] Implanted:Qty: 1 on 05/02/2021 at [facility] Plate Right: Bone - Shoulder [employer] 01/26/2030 [id number] / / [id number] Screw 2.2mm 6mm Bone Self Drilling - [id number] Implanted:Qty: 9 on 05/29/2017 at [facility] Screw N/A: Spine - Cervical [employer] 136.406 / / Screw 2.2mm Relieve Slfdrl 5mm - [id number] Implanted:Qty: 9 on 05/29/2017 at [facility] Screw N/A: Spine - Cervical [employer] 136.405 / / Screw Comprehensive 4.75mm 3.5mm Titanium 15mm Bone Fix Angle Lock - [id number] Implanted:Qty: 1 on 05/02/2021 at [facility] Screw Right: Bone - Shoulder [employer] 03/20/2031 [id number] / / [id number] Screw Comprehensive 3.5mm 30mm Bone Central Hexagon Database Developer 6.5mm Shoulder - [id number] Implanted:Qty: 1 on 05/02/2021 at [facility] Screw Right: Bone - Shoulder [employer] 04/01/2031 [id number] / / [id number] Screw Comprehensive 4.75mm 3.5mm Hexagon 20mm Bone Variable Angle Nonlock - [id number] Implanted:Qty: 1 on 05/02/2021 at [facility] Screw Right: Bone - Shoulder [employer] 02/22/2031 [id number] / / [id number] Screw Comprehensive 3.5mm Hexagon 20mm Bone Fix Angle Lock Reverse 4.75mm - [id number] Implanted:Qty: 1 on 05/02/2021 at [facility] Screw Right: Bone - Shoulder [employer] 03/09/2031 [id number] / / [id number] Screw Comprehensive 3.5mm Hexagon 30mm Bone Fix Angle Lock Reverse 4.75mm - [id number] Implanted:Qty: 1 on 05/02/2021 at [facility] Screw Right: Bone - Shoulder [employer] 03/07/2031 [id number] / / [id number] Procedures Procedure Name Priority Date/Time Associated Diagnosis Comments COMPREHENSIVE METABOLIC PANEL Routine 07/05/2023 10:19 AM EDT 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 stricture Overactive bladder from Last 3 Months or Most Recently Relevant to Health Maintenance Results * (ABNORMAL) COMPREHENSIVE METABOLIC PANEL (07/05/2023 10:19 AM EDT) Protein, Total 6.5 6.3 - 8.0 g/dL 07/05/2023 4:56 PM EDT [facility] Albumin 4.1 3.9 - 4.9 g/dL 07/05/2023 4:56 PM EDT [facility] Calcium, Total 9.2 8.5 - 10.2 mg/dL 07/05/2023 4:56 PM EDT [facility] Bilirubin, Total 0.8 0.2 - 1.3 mg/dL 07/05/2023 4:56 PM EDT [facility] Alkaline Phosphatase 66 38 - 113 U/L 07/05/2023 4:56 PM EDT [facility] AST 14 14 - 40 U/L 07/05/2023 4:56 PM EDT [facility] ALT 18 10 - 54 U/L 07/05/2023 4:56 PM EDT [facility] Glucose 119(H) 74 - 99 mg/dL 07/05/2023 4:56 PM EDT [facility] Comment: The [place] Diabetes Association (ADA) provides guidance for cutoff [...] Standards of Medical Care in Diabetes 2016, [place] Diabetes Association. Diabetes Care. 2016.39(Suppl 1). BUN 16 9 - 24 mg/dL 07/05/2023 4:56 PM EDT [facility] Creatinine 0.74 0.73 - 1.22 mg/dL 07/05/2023 4:56 PM EDT [facility] Sodium 142 136 - 144 mmol/L 07/05/2023 4:56 PM EDT [facility] Potassium 4.1 3.7 - 5.1 mmol/L 07/05/2023 4:56 PM EDT [facility] Chloride 105 97 - 105 mmol/L 07/05/2023 4:56 PM EDT [facility] CO2 28 22 - 30 mmol/L 07/05/2023 4:56 PM EDT [facility] Anion Gap 9 9 - 18 mmol/L 07/05/2023 4:56 PM EDT [facility] Estimated Glomerular Filtration Rate 95 >=60 mL/min/1.7 3m 07/05/2023 4:56 PM EDT [facility] Comment:Estimated Glomerular Filtration Rate (eGFR) is calculated using the 2020 CKD-EPI creatinine equation. This equation utilizes serum creatinine, sex, and age as parameters. The creatinine assay has traceable calibration to isotope dilution- mass spectrometry. Refer to KDIGO guidelines for clinical interpretation. In patients with unstable renal function, e.g. those with acute kidney injury, the eGFR may not accurately reflect actual GFR. Blood BLOOD SPECIMEN / Unknown Venipuncture / Unknown 07/05/2023 10:19 AM EDT 07/05/2023 10:20 AM EDT us Dianne Roldan MD LABORATORY Final Result [facility] [address] [address] from Last 3 Months or Most Recently Relevant to Health [place] [id number] [facility] MEDADVANTAGE HMO Advance Directives Documents on File Type Date Recorded Patient Back Strip Machine Operator Expl anation Advance Directive(s) 05/23/2017 1:09 PM Care Teams Strawhat Blocking Operator Relationship Specialty Start Date End Date Stanton Velasco II, MD [address] [facility] [address] [place] [address] PCP - General Internal Medicine 04/01/21 Hossein Tran DO [address] [place] [phone] Referring Ophthalmology 08/28/16 David Carrillo MD [address] [place] [phone] Referring Urology 10/06/16
--- OUTSIDE RECORDS SUMMARY | 2024-08-18 15:50 | XMS_ITS | Encounter Summary ---
Author Organization [facility] Address [address] [facility] [place] [address] Care Team Providers Care Software Developer Consultant Name Role Phone Stanton Velasco MD Unavailable [phone] Stanton Velasco MD Primary Care Provider [phone] Emelyn Hall RN Unavailable [phone] Stanton Velasco MD Unavailable [phone] Alvina Sanchez LPN Unavailable Encounter Details Date Type Department Care Team (Late st Contact Info) Description 10/03/2023 Abstract [facility] 112 [facility] [address] [place] [id number] Stanton Velasco MD 112 [facility] 110 [place] [address] Social History Tobacco Use Types [...] How often do you attend chur or adventist services? 1 to 4 times per year 10/20/2022 Do you belong to any clubs o r organizations such as lutheran groups, unions, fraternal or athletic groups, or [...] Recorded Patient Health Questionnaire-2 Score 0 05/23/2023 [facility] - Occupational Stress Questionnaire Answer [...] place to sleep or slept in a retirement (including now)? No 10/20/2022 Sex and Gender [...] documented as of this encounter Care Teams Software Developer Consultant Relationship Specialty Start Date End Date Stanton Velasco MD [address] [facility] [address] [place] [address] PCP - Devoted 02/12/21 02/12/24 Stanton Velasco MD [address] [facility] [address] [place] [address] PCP - General Internal Medicine 08/18/22 Stanton Velasco MD [address] [facility] [address] [place] [address] PCP - Medical [place] 02/13/2402/11 Emelyn Hall, RN [address] [place] [address] Clinical Advocate Family Medicine 03/21/24 05/06/24 Alvina Sanchez LPN 112 [facility] [address] [place] [address] 05/06/24 documented as of this encounter
--- OUTSIDE RECORDS SUMMARY | 2024-08-18 15:50 | XMS_ITS | Encounter Summary ---
Author Organization [facility] Address [address] [facility] [place] [address] Care Team Providers Care Statistical Machine Servicer Name Role Phone Stanton Velasco MD Unavailable [phone] Stanton Velasco MD Primary Care Provider [phone] Emelyn Hall RN Unavailable [phone] Stanton Velasco MD Unavailable [phone] Alvina Sanchez LPN Unavailable Encounter Details Date Type Department Care Team (Late st Contact Info) Description 05/24/2023 Abstract [facility] 112 [facility] [address] [place] [id number] Stanton Velasco MD 112 [facility] 110 [place] [address] Social History Tobacco Use Types [...] How often do you attend chur or mandaeism services? 1 to 4 times per year 10/20/2022 Do you belong to any clubs o r organizations such as denominational groups, unions, fraternal or athletic groups, or [...] Recorded Patient Health Questionnaire-2 Score 0 05/23/2023 [facility] - Occupational Stress Questionnaire [...] place to sleep or slept in a snf (including now)? No 10/20/2022 Sex and Gender [...] documented as of this encounter Care Teams Statistical Machine Servicer Relationship Specialty Start Date End Date Stanton Velasco MD [address] [facility] [address] [place] [address] PCP - Devoted 02/12/21 02/12/24 Stanton Velasco MD [address] [facility] [address] [place] [address] PCP - General Internal Medicine 08/18/22 Stanton Velasco MD [address] [facility] [address] [place] [address] PCP - Medical [place] 02/13/2402/11 Emelyn Hall, RN [address] [place] [address] Clinical Advocate Family Medicine 03/21/24 05/06/24 Alvina Sanchez LPN 112 [facility] [address] [place] [address] 05/06/24 documented as of this encounter
--- OUTSIDE RECORDS SUMMARY | 2024-08-18 15:50 | XMS_ITS | Encounter Summary ---
Author Organization [facility] Address [address] [facility] [place] [address] Care Team Providers Care Platform Loader Name Role Phone Stanton Velasco MD Unavailable [phone] Stanton Velasco MD Primary Care Provider [phone] Emelyn Hall RN Unavailable [phone] Stanton Velasco MD Unavailable [phone] Alvina Sanchez LPN Unavailable Encounter Details Date Type Department Care Team (Late st Contact Info) Description 04/26/2023 Abstract [facility] 112 [facility] 110 [place] [id number] Stanton Velasco MD 112 [facility] 110 [place] [address] Social History Tobacco Use Types [...] How often do you attend chur or taoism services? 1 to 4 times per year 10/20/2022 Do you belong to any clubs o r organizations such as yazidi groups, unions, fraternal or athletic groups, or [...] and heating? Not hard at all 10/20/2022 [facility] Occup[facility] ional Health - Occupational [...] place to sleep or slept in a detention (including now)? No 10/20/2022 Sex and Gender Information Value Date Recorded Sex Assigned at Not on file Legal Sex Male 6:56 PM EDT Gender Identity Not on file Sexual Orientation Not on file documented as of this encounter Plan of Treatment Not on file documented as of this encounter Visit Diagnoses Not on filedocumented in this encounter Care Teams Platform Loader Relationship Specialty Start Date End Date Stanton Velasco MD [address] [facility] 110 [place] [address] PCP - Devoted 02/12/21 02/12/24 Stanton Velasco MD [address] [facility] 110 [place] [address] PCP - General Internal Medicine 08/18/22 Stanton Velasco MD [address] [facility] 110 [place] [address] PCP - Medical [place] 02/13/2402/11 Emelyn Hall, RN [address] [place] [address] Clinical [facility] 03/21/24 05/06/24 Alvina Sanchez LPN 112 [facility] 110 [place] [address] 05/06/24 documented as of this encounter
--- OUTSIDE RECORDS SUMMARY | 2024-08-18 15:50 | XMS_ITS | Encounter Summary ---
Author Organization [facility] Address [address] [facility] [place] [address] Care Team Providers Care Animal Impersonator Name Role Phone Stanton Velasco MD Unavailable [phone] Stanton Velasco MD Primary Care Provider [phone] Emelyn Hall RN Unavailable [phone] Stanton Velasco MD Unavailable [phone] Alvina Sanchez LPN Unavailable Encounter Details Date Type Department Care Team (Late st Contact Info) Description 12/20/2023 Abstract [facility] 112 [facility] 110 [place] [id number] Stanton Velasco MD 112 [facility] 110 [place] [address] Social History Tobacco Use Types [...] often do you attend chur ch or temple services? 1 to 4 times per year 10/20/2022 Do you belong to any clubs o r organizations such as yazidism groups, unions, fraternal or athletic groups, or [...] Recorded Patient Health Questionnaire-2 Score 0 05/23/2023 [facility] of Occupat ional Health - Occupational [...] documented as of this encounter Care Teams Animal Impersonator Relationship Specialty Start Date End Date Stanton Velasco MD [address] [facility] 110 [place] [address] PCP - Devoted 02/12/21 02/12/24 Stanton Velasco MD [address] [place] [address] [place] [address] PCP - General Internal Medicine 08/18/22 Stanton Velasco MD [address] [facility] 110 [place] [address] PCP - Medical [place] 02/13/2402/11 Emelyn Hall, RN [address] [place] [address] Clinical [facility]ocate Family Medicine 03/21/24 05/06/24 Alvina Sanchez LPN 112 [facility] 110 [place] [address] 05/06/24 documented as of this encounter
--- OUTSIDE RECORDS SUMMARY | 2024-08-18 15:50 | XMS_ITS | Encounter Summary ---
Author Organization [facility] Address [address] [facility] [place] [address] Care Team Providers Care Full Stack Java Developer Name Role Phone Stanton Velasco MD Unavailable [phone] Stanton Velasco MD Primary Care Provider [phone] Emelyn Hall RN Unavailable [phone] Stanton Velasco MD Unavailable [phone] Alvina Sanchez LPN Unavailable Encounter Details Date Type Department Care Team (Late st Contact Info) Description 10/01/2023 Abstract [facility] 112 [facility] 110 [place] [phone] Stanton Velasco MD 112 [facility] 110 [place] [address] Social History Tobacco Use Types [...] How often do you attend chur or advent services? 1 to 4 times per year 10/20/2022 Do you belong to any clubs o r organizations such as moravian groups, unions, fraternal or athletic groups, or [...] Recorded Patient Health Questionnaire-2 Score 0 05/23/2023 [facility] - Occupational Stress Questionnaire [...] place to sleep or slept in a fpc (including now)? No 10/20/2022 Sex and Gender [...] documented as of this encounter Care Teams Full Stack Java Developer Relationship Specialty Start Date End Date Stanton Velasco MD [address] [facility] 110 [place] [address] PCP - Devoted 02/12/21 02/12/24 Stanton Velasco MD [address] [facility] 110 [place] [address] PCP - General Internal Medicine 08/18/22 Stanton Velasco MD [address] [facility] [address] [place] [address] PCP - Medical [place] 02/13/2402/11 Emelyn Hall, RN [address] [place] [address] Clinical [facility]ocate Family Medicine 03/21/24 05/06/24 Alvina Sanchez LPN 112 [facility] 110 [place] [address] 05/06/24 documented as of this encounter
--- OUTSIDE RECORDS SUMMARY | 2024-08-18 15:50 | XMS_ITS | Encounter Summary ---
Author Organization [facility] Address [address] [facility] [place] [address] Care Team Providers Care Addiction Medicine Physician Name Role Phone Stanton Velasco MD Unavailable [phone] Stanton Velasco MD Primary Care Provider [phone] Emelyn Hall RN Unavailable [phone] Stanton Velasco MD Unavailable [phone] Alvina Sanchez LPN Unavailable Encounter Details Date Type Department Care Team (Late st Contact Info) Description 06/18/2023 Abstract [facility] 112 [facility] 110 [place] [phone] Stanton Velasco MD 112 [facility] 110 [place] [address] Social History Tobacco Use Types [...] How often do you attend chur or temple services? 1 to 4 times per year 10/20/2022 Do you belong to any clubs o r organizations such as catholic groups, unions, fraternal or athletic groups, or [...] Recorded Patient Health Questionnaire-2 Score 0 05/23/2023 [facility] - Occupational Stress Questionnaire Answer [...] place to sleep or slept in a correction (including now)? No 10/20/2022 Sex and Gender [...] documented as of this encounter Care Teams Addiction Medicine Physician Relationship Specialty Start Date End Date Stanton Velasco MD [address] [facility] 110 [place] [address] PCP - Devoted 02/12/21 02/12/24 Stanton Velasco MD [address] [facility] 110 [place] [address] PCP - General Internal Medicine 08/18/22 Stanton Velasco MD [address] [facility] [address] [place] [address] PCP - Medical [place] 02/13/2402/11 Emelyn Hall, RN [address] [place] [address] Clinical [facility]ocate Family Medicine 03/21/24 05/06/24 Alvina Sanchez LPN 112 [facility] 110 [place] [address] 05/06/24 documented as of this encounter
--- OUTSIDE RECORDS SUMMARY | 2024-08-18 15:50 | XMS_ITS | Encounter Summary ---
Author Organization [facility] Address [address] [place] [address] Care Team Providers Care Jack [employer] All [employer] Name Role Phone Stanton Velasco MD Primary Care Provider [phone] Emelyn Hall RN Unavailable [phone] Stanton Velasco MD Unavailable [phone] Alvina Sanchez LPN Unavailable Encounter Details Date Type Department Care Team (Late st Contact Info) Description 03/07/2024 Clinisync Result Encounter [facility] External Department Unsolicited Stanton Velasco MD [address] [facility] [address] [place] [address] Social History Tobacco Use Types Packs/Day Years [...] How often do you attend chur or scientology services? 1 to 4 times per year [...] Date Recorded Patient Health Questionnaire-2 Score 0 03/07/2024 [facility] of Occupat ional Health - Occupational Stress [...] place to sleep or slept in a long term (including now)? No 10/20/2022 Sex and Gender [...] pleasure in doing things Not at all 03/07/2024 9:15 AM Lucy Jean-Baptiste [facility] N Feeling down, depressed, or hopeless Not at all 03/07/2024 9:15 AM Lucy Jean-[facility]iste [facility] N Patient Health Questionnaire -2 Score 0 03/07/2024 9:15 AM Lucy Jean-[facility]aptiste [facility] N documented as of this encounter Plan of Treatment Not on file documented as of this encounter Procedures Procedure Name Priority Date/Time Associated Diagnosis Comments CT CHEST WO CON 03/07/2024 6:38 AM EST documented in this encounter Results * CT CHEST WO CON (03/07/2024 6:38 AM EST) Anatomical Region Laterality Modality Other 03/07/2024 6:38 AM EST Narrative 03/07/2024 6:41 AM EST [address] [address] [address] Scan Report Signed Patient: CHELSEA SOTELO MR#: [id number] : 1950 Acct:[id number] Age/Sex: 73 / M ADM Date: 03/06/24 Loc: CT Attending Dr: STANTON VELASCO Ordering Physician: STANTON VELASCO Date of Service: 03/06/24 Procedure(s): CT chest wo con Accession Number(s): [id number] cc: STANTON VELASCO [address] [address] Patient Name: CHELSEA SOTELO MRN: [id number] date: 1950 Sex: M Assigned Patient Location: CT Current Patient Location: Accession/Order Number: [id number] Exam Date: 03/06/2024 14:12 Report Date: 03/07/2024 06:38 At the request of: STANTON VELASCO Procedure: CT chest wo con EXAMINATION: CT chest wo con HISTORY: Multiple Lung Nodules ; follow-up COMPARISON: CT chest 05/19/2022 TECHNIQUE: Axial, Coronal, and Sagittal images were created without the administration of IV contrast material. Dose reduction techniques were achieved by using automated exposure control and/or adjustment of mA and/or kV according to patient size and/or use of iterative reconstruction technique. FINDINGS: LUNGS: Stable appearance of multiple 3-5 mm nodules bilaterally; some calcified and some are noncalcified. No acute infiltrates or significant chronic interstitial changes. PLEURA: No mass, effusion, or pneumothorax. VASCULATURE: No abnormality. RAVI: Calcified right hilar lymph nodes suggestive chronic granulomatous disease. MEDIASTINUM: A few small calcified lymph nodes. CARDIAC: No enlargement, pericardial thickening, or pericardial effusion. Coronary Artery calcifications: Coronary calcifications are moderate. AORTA: No aneurysm or dissection. CHEST WALL: No mass or axillary adenopathy BONES: Prior right shoulder replacement. No bone lesion or fracture. LIMITED ABDOMEN: Multiple gallstones. Limited images of the upper abdomen. OTHER: Negative. CT/CT chest wo con IMPRESSION: 1. Multiple 3-5 mm lung nodules bilaterally; stable and not overtly suspicious. 2. Calcified mediastinal and hilar lymph nodes which along with lung nodules favoring chronic granulomatous disease. 3. Cholelithiasis. Electronically authenticated by: SILVERIO BOYKIN Date: 03/07/2024 06:38 Dictated By: Silverio Boykin M.D. Signed By: 03/07/24 0641 DD/ 7 TD/TT: Registered Nurse Cardiovascular Icu: Procedure Note Radiology, Radiologist, MD - 03/07/2024 [place] [address] CT Scan Report Signed Patient: CHELSEA SOTELO AMR#: [id number] : 1950cct:[id number] Age/Sex: 73 / MADM Date: 03/06/24 Loc: CT Attending Dr: STANTON VELASCO Ordering Physician: STANTON VELASCO Date of Service: 03/06/24 Procedure(s): CT chest wo con Accession Number(s): [id number] cc: STANTON VELASCO [place] [address] Patient Name: CHELSEA SOTELO MRN: [id number] date: 1950 Sex: M Assigned Patient Location: CT Current Patient Location: Accession/Order Number: [id number] Exam Date: 03/06/2024 14:12 Report Date: 03/07/2024 06:38 At the request of: STANTON VELASCO Procedure: CT chest wo con EXAMINATION: CT chest wo con HISTORY: Multiple Lung Nodules ; follow-up COMPARISON: CT chest 05/19/2022 TECHNIQUE: Axial, Coronal, and Sagittal images were created without the administration of IV contrast material. Dose reduction techniques were achieved by using automated exposure control and/or adjustment of mA and/or kV according to patient size and/or use of iterative reconstruction technique. FINDINGS: LUNGS: Stable appearance of multiple 3-5 mm nodules bilaterally; some calcified and some are noncalcified. No acute infiltrates or significant chronic interstitial changes. PLEURA: No mass, effusion, or pneumothorax. VASCULATURE: No abnormality. RAVI: Calcified right hilar lymph nodes suggestive chronic granulomatous disease. MEDIASTINUM: A few small calcified lymph nodes. CARDIAC: No enlargement, pericardial thickening, or pericardial effusion. Coronary Artery calcifications: Coronary calcifications are moderate. AORTA: No aneurysm or dissection. CHEST WALL: No mass or axillary adenopathy BONES: Prior right shoulder replacement. No bone lesion or fracture. LIMITED ABDOMEN: Multiple gallstones. Limited images of the upper abdomen. OTHER: Negative. CT/CT chest wo con IMPRESSION: 1. Multiple 3-5 mm lung nodules bilaterally; stable and not overtly suspicious. 2. Calcified mediastinal and hilar lymph nodes which along with lungnodules favoring chronic granulomatous disease. 3. Cholelithiasis. Electronically authenticated by: SILVERIO BOYKIN Date: 03/07/2024 06:38 Dictated By: Silverio Boykin M.D. Signed By:03/07/24 0641 DD/ 0638 TD/TT: Registered Nurse Cardiovascular Icu: Stanton Velasco MD [facility] Final Result documented in this encounter Visit Diagnoses Not on filedocumented in this encounter Additional Health Concerns Assessment Noted Time PHQ-9 Depression Total Score: 0 05/23/19 24 9:00 AM EDT documented as of this encounter Care Teams Jack [employer] All Tr[employer] Relationship Specialty Start Date End Date Stanton Velasco MD [address] [facility] 110 [place] [address] PCP - General Internal Medicine 08/18/22 Stanton Velasco MD [address] [facility] 110 [place] [address] PCP - Medical [place] 02/13/2402/11 Emelyn Hall, LEATHA [address] [place] [address] Clinical [facility] Family Medicine 03/21/24 05/06/24 Alvina Sanchez LPN [address] [facility] 110 [place] [address] 05/06/24 documented as of this encounter
--- OUTSIDE RECORDS SUMMARY | 2024-08-18 15:50 | XMS_ITS ---
Author Organization [facility] Address [address] [place] [address] Care Team Providers Care Wall Covering Installer Name Role Phone Stanton Velasco MD Primary Care Provider [phone] Stanton Velasco MD Unavailable [phone] Alvina Sanchez LPN Unavailable Chronic Care Management (CCM) Status:Enrolled (Active) Start date:06/29/2022 Enrollment date:06/29/2022 Overview 01/19/23, 10:39 AM - Venitasunday, ARACELI- Patient gives verbal consent to be enrolled in CCM Program and understands there could be a bill for this service. Case Team Name Relationship Phone Alvina Sanchez LPN(Responsible Staff) [phone] Continued Care and Services Coordination
--- OUTSIDE RECORDS SUMMARY | 2024-08-18 15:50 | XMS_ITS | Encounter Summary ---
Author Organization [facility] Address [address] [place] [address] Care Team Providers Care Derrick Follower Name Role Phone Stanton Velasco MD Unavailable [phone] Stanton Velasco MD Primary Care Provider [phone] Emelyn Hall RN Unavailable [phone] Stanton Velasco MD Unavailable [phone] Alvina Sanchez LPN Unavailable Encounter Details Date Type Department Care Team (Late st Contact Info) Description 08/15/2022 Abstract [facility] D[facility] [address] [facility] [address] [place] [address] Toya Santos MD [address] [facility] [address] [place] [address] Social History Tobacco Use Types Packs/Day Years [...] on filedocumented in this encounter Care Teams Derrick Follower Relationship Specialty Start Date End Date Stanton Velasco MD [address] [facility] 110 [place] [address] PCP - Devoted 02/12/21 02/12/24 Stanton Velasco MD [address] [facility] 110 [place] [address] PCP - General Internal Medicine 08/18/22 Stanton Velasco MD [address] [facility] 110 [place] [address] PCP - Medical [facility] 02/13/2402/11 Emelyn Hall, RN [address] [place] [address] Clinical Advocate Family Medicine 03/21/24 05/06/24 Alvina Sanchez LPN [address] [facility] 110 [place] [address] 05/06/24 documented as of this encounter
--- OUTSIDE RECORDS SUMMARY | 2024-08-18 15:50 | XMS_ITS | Encounter Summary ---
Author Organization [facility] Address [address] [place] [address] Care Team Providers Care Tread Cutter Name Role Phone Stanton Velasco MD Unavailable [phone] Stanton Velasco MD Primary Care Provider [phone] Emelyn Hall RN Unavailable [phone] Stanton Velasco MD Unavailable [phone] Alvina Sanchez LPN Unavailable Encounter Details Date Type Department Care Team (Late st Contact Info) Description 04/04/2023 Orders Only [facility] FM [address] [address] [place] [address] Unallocated, Noms Provider, [address] [place], [place] [id number] Social History Tobacco Use Types Packs/Day Years [...] How often do you attend chur or buddhist services? 1 to 4 times per year 10/20/2022 Do you belong to any clubs o r organizations such as orthodoxy groups, unions, fraternal or athletic groups, or [...] and heating? Not hard at all 10/20/2022 [facility] of Occupat ional Health - Occupational Stress [...] Procedure Name Priority Date/Time Associated Diagnosis Comments COLONOSCOPY DIAGNOSTIC Routine 04/04/2023 1:22 PM EST documented in this encounter Results * COLONOSCOPY DIAGNOSTIC (04/04/2023 1:22 PM EST) Anatomical Region Laterality Modality Radiographic Kathie ging us Noms Provider Unallocated MD LENTZ XR PROCEDURES F inal Result documented in this encounter Visit Diagnoses Not on filedocumented in this encounter Care Teams Tread Cutter Relationship Specialty Start Date End Date Stanton Velasco MD [address] [facility] 110 [place] [address] PCP - Devoted 02/12/21 02/12/24 Stanton Velasco MD [address] [place] [address] PCP - General Internal Medicine 08/18/22 Stanton Velasco MD [address] [facility] 110 [place] [address] PCP - Medical [place] 02/13/2402/11 Emelyn Hall, RN [address] [place] [address] Clinical [facility]ocate Family Medicine 03/21/24 05/06/24 Alvina Sanchez LPN 112 [facility] 110 [place] [address] 05/06/24 documented as of this encounter
--- OUTSIDE RECORDS SUMMARY | 2024-08-18 15:50 | XMS_ITS | Encounter Summary ---
Author Organization [facility] Address [address] [facility] [place] [address] Care Team Providers Care Deliver Driver Name Role Phone Stanton Velasco MD Primary Care Provider [phone] Emelyn Hall RN Unavailable [phone] Stanton Velasco MD Unavailable [phone] Alvina Sanchez LPN Unavailable Encounter Details Date Type Department Care Team (Late st Contact Info) Description 02/27/2024 Abstract [facility] 112 [facility] 110 [place] [address] Stanton Velasco MD 112 [facility] 110 [place] [address] Social History Tobacco Use Types [...] often do you attend chur ch or roman catholic services? 1 to 4 times per year 10/20/2022 Do you belong to any clubs o r organizations such as bahai groups, unions, fraternal or athletic groups, or [...] Recorded Patient Health Questionnaire-2 Score 0 02/15/2024 [facility] of Occupat ional Health - Occupational Stress [...] documented as of this encounter Care Teams Deliver Driver Relationship Specialty Start Date End Date Stanton Velasco MD [address] [facility] 110 [place] [address] PCP - General Internal Medicine 08/18/22 Stanton Velasco MD [address] [facility] 110 [place] [address] PCP - Medical [place] DIAZ 02/13/2402/11 Emelyn Hall, LEATHA [address] [place], [place] [address] Clinical [facility] Family Medicine 03/21/24 05/06/24 Alvina Sanchez LPN 112 [facility] 110 [place] [address] 05/06/24 documented as of this encounter
== END 2024-08-18 15:45 | disposition home or self-care (01) ==
LOC: RAD 15:47
PROVIDERS: PCP Internal Medicine; Visit Provider Internal Medicine
DX: M25.511 Pain in right shoulder (principal)
CPT/HCPCS: 73030

== ENCOUNTER 2024-10-20 10:11 | Outpatient (OUT) | payer MEDICARE, SELFPAY ==
--- OUTSIDE RECORDS SUMMARY | 2024-10-17 09:15 | XMS_ITS | Encounter Summary ---
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 [address] [place] [address] Phone: tel: fax: Tamanna Joshua MD [address] [place] [address] Phone: tel: fax: Referral ID Status Reason Start Date Expiration Date Visits Requested Visits Authorized [id number] Authorized Specialty Services Required 10/17/2024 04/15/2025 1 1 Reason for Visit * Reason Comments Hypertension Encounter Details Date Type Department Care Team (Late st Contact Info) Description 10/17/2024 9:15 AM EDT Office Visit [facility] [place] [facility] [address] [facility] [address] [place] [address] Stanton Velasco MD [address] [facility] [address] [place] [address] Left-sided chest pain (Primary Dx); 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 1 to 4 times per year 10/20/2022 Do you belong to any clubs o r organizations such as uatsdin groups, unions, fraternal or athletic groups, or [...] Recorded Patient Health Questionnaire-2 Score 0 04/16/2024 [facility] - Occupational [...] on file documented as of this encounter Last Filed Vital Signs Vital Sign Reading Time Taken Comments Blood Pressure 120/72 10/17/2024 9:19 AM EDT Pulse 59 10/17/2024 9:19 AM EDT Temperature - - Respiratory Rate - - Oxygen Saturation 97% 10/17/2024 9:19 AM EDT Inhaled Oxygen Concentration - - Weight 98.9 kg (218 lb) 10/17/2024 9:19 AM EDT Height 177.8 cm (5' 10 ) 10/17/2024 9:19 AM EDT Body Mass Index 31.28 10/17/2024 9:19 AM EDT documented in this encounter Progress Notes * Stanton Velasco MD - 10/17/2024 9:15 AM EDT Images from the original note were not included. Subjective Patient ID: Fahad Sotelo is a 74 y.o. male who presents for Hypertension. Pt states he has been having like heat inside his body in his back and shoulders and an ache in the upper left area,it is there all the time Hypertension Patient is here for follow-up of elevated blood pressure. Cardiac symptoms: none. Patient denies chest pain, claudication, fatigue, irregular heart beat, near-syncope, orthopnea, palpitations, paroxysmal nocturnal dyspnea, and syncope. Cardiovascular risk factors: advanced age (older than 55 for men, 65 for women), hypertension, and male gender. Hypertension Current Outpatient Medications on File Prior to [...] time each day at the same time. lactulose (Chronulac) 10 GM/15ML solution TAKE 15ml BY MOUTH IN THE MORNING then TAKE 15ml BY MOUTHBEFORE bedtime 900 mL 3 lisinopril 20 MG tablet 1 (one) time each day at the same time. loratadine (Claritin) 10 MG tablet Take 1 tablet (10 mg) by mouth Daily 90 tablet 3 metoprolol tartrate (Lopressor) 50 MG tablet every 12 (twelve) hours. ondansetron ODT (Zofran-ODT) 4 MG disintegrating tablet Take 4 mg by mouth every 4 (four) hours if needed for nausea or vomiting plecanatide (Trulance) tablet tablet Take 3 mg by mouth Daily ON HOLD OF 04/03/2024. polyethylene glycol, PEG, 3350 (MiraLax) 17 GM/SCOOP powder as directed Orally rosuvastatin (Crestor) 40 MG tablet 1 (one) time each day at the same time. Tenapanor HCl (Ibsrela) 50 MG tablet Take 50 mg by mouth in the morning and 50 mg before bedtime. triamcinolone (Kenalog) 0.1 % cream APPLY TO THE AFFECTED AREA(S) (thin layer on neck, chest) TWICEDAILY NEEDED linaCLOtide (Linzess) 290 MCG capsule Take 1 capsule (290 mcg) by mouth in the morning for 16 days.Take before meals. Do not crush or chew.. (Patient not taking: Reported on 10/17/2024) 16 capsule 0 [DISCONTINUED] nitroglycerin (Nitrostat) 0.4 MG SL tablet as directed Sublingual (Patient not taking: Reported on 04/03/2024) No current facility-administered medications on file prior [...] History: Diagnosis Date CAD (coronary artery disease) Closed torus fracture of upper end of left fibula 08/21/2022 Complete rotator cuff tear or rupture of right shoulder, not specified as traumatic 05/04/2021 HLD (hyperlipidemia) HTN (hypertension) Myocardial infarct (HCC) Rotator cuff tear left Past Surgical History: Procedure Laterality Date CORONARY ARTERY BYPASS GRAFT SHOULDER ARTHROSCOPY 2013 rotator cuff TRANSURETHRAL RESECTION OF PROSTATE Visit Vitals BP 120/72 Pulse 59 Ht 5' 10 Wt 218 lb SpO2 97% BMI 31.28 kg/m?? Smoking Status Never BSA 2.21 m?? Review of Systems Objective Physical Exam Constitutional: General: He is not in acute distress. Appearance: He is normal weight. He is not ill-appearing. HENT: Head: Normocephalic. Cardiovascular: Rate and Rhythm: Normal rate and [...] Diagnoses and all orders for this visit: Left-sided chest pain - XR chest 2 views; Future - Ambulatory referral to Cardiology; Future - EKG is unchanged from prior. - Stress test by Cardiology last year was normal. 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 - Ambulatory referral to Cardiology; Future Chronic ischemic heart disease Follow up in about 1 week (around 10/24/2024) for Test/Lab Review, F/U med changes. documented in this encounter Plan of Treatment Upcoming Encounters Date Type Department Care Team (Late st Contact Info) Description 10/24/2024 9:45 AM EDT Office Visit [facility] [place] [facility] 112 [facility] 110 [place] [address] Stanton Velasco MD 112 [facility] [address] [place] [address] Scheduled Orders Name Type Priority Associated Diagnoses Orde r Schedule XR chest 2 views Imaging Routine Left-sided chest pain Expected: 10/17/2024, Expires: 10/17/2025 Scheduled Referrals Name Type Priority Associated Diagnoses Order Schedule Ambulatory referral to Cardiology Outpatient Referral Routine Left-sided chest pain 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 Expected: 10/17/2024 (Approximate), Expires: 04/16/2025 documented as of this encounter Visit Diagnoses Diagnosis Left-sided chest pain- Primary 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 Chronic ischemic heart disease Unspecified chronic ischemic heart disease documented in this encounter Additional Health Concerns Assessment Noted Time PHQ-9 Depression Total Score: 0 05/23/19 24 9:00 AM EDT documented as of this encounter Care Teams Supervisor Welding Equipment Repairer Relationship Specialty Start Date End Date Stanton Velasco MD 112 [facility] [address] [place] [address] PCP - General Internal Medicine 08/18/22 Stanton Velasco MD 112 [facility] [address] [place] [address] PCP - Medical [place] 02/13/2402/11 Alvina Sanchez LPN 112 [facility] [address] [place] [address] 05/06/24 documented as of this encounter
--- OUTSIDE RECORDS SUMMARY | 2024-10-20 10:14 | XMS_ITS | Clinical Summary ---
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 Cervical stenosis of spine 05/29/2017 Preop testing 05/04/2017 Overview (05/24/2022): Added automatically from request for surgery [id number] Cervical spondylosis with myelopathy 05/04/2017 Overview (05/24/2022): Added automatically from request for surgery [id number] Brachial plexopathy 03/12/2017 Shoulder weakness 03/12/2017 Coronary atherosclerosis 11/20/2011 Dyspnea 11/20/2011 Essential hypertension 11/20/2011 Overview (05/24/2022): Last Assessment & Plan: Assessment: Stable, controlled with RX medication Mixed hyperlipidemia 11/20/2011 CAD (coronary artery disease) 02/13/2004 Overview (05/24/2022): [place] in 1997. 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 S/T CABG 2005. Follows with admeasurer Family History Medical History Relation Name Comments [...] Value Date Recorded Sex Assigned at Male 10/17/2024 3:45 PM EDT Legal Sex Male 10:12 PM EDT Gender Identity Male 10/17/2024 3:45 PM EDT Sexual Orientation Heterosexual or Straight 06/2024 3:45 PM EDT Last Filed Vital Signs Vital Sign Reading [...] 05/21/2024 1:19 PM EDT Plan of Treatment Upcoming Encounters Date Type Department Care Team (Late st Contact Info) Description 10/22/2024 11:20 AM EDT Office Visit [facility] [address] [place] [address] Caitlyn Alcaraz CNP [address] [place] [address] Health Maintenance Due Date Last Done Comments Medicare Annual Wellness (AWV) 1950 Depression Screening 1960 Fall Risk Screening [...] patient's age to complete this topic Insurance [employer] MEDICARE Care Teams Medical Chemist Relationship Specialty Start Date End Date Stanton Velasco MD [address] [facility] [address] [place] [address] PCP - General 05/23/22
--- OUTSIDE RECORDS SUMMARY | 2024-10-20 10:14 | XMS_ITS | Encounter Summary ---
Author Organization [facility] Address [address] [place] [address] Care Team Providers Care Metallurgical Engineer Name Role Phone Uli Mcdonald Primary Care Provider UnaHossein Rosas DO Unavailable [phone] David Carrillo MD Unavailable [phone] Rod FATIMA MD, Stanton Payne Primary Care Provider [phone] Source Comments In the event this information is protected by the Federal Confidentiality of Alcohol and Drug AbusePatient Records regulations: The Federal rules restrict any use of the information to criminally investigate or prosecute any alcohol or drug abuse patient.[facility] Reason for Visit * Reason Comments Radiology MRI Encounter Details Date Type Department Care Team (Late st Contact Info) Description 08/10/2020 Radiology Radiology [address] [place] [address] Laila Matthews, RT(R) Radiology MRI Social History [...] N ot on file 01/20/2020 Data from: https://www.neighborhoodatlas.medicine.[facility]/. Last address used for calculation Not [...] Assessment Author No 10/31/2018 3:35 PM LEAHT Basil Moreira RN * Are you blind or do you have serious difficulty seeing, even when wearing glasses? Answer Date of Assessment Author No 10/31/2018 3:35 PM Larissa Horner RN * Do you have serious difficulty walking or climbing stairs? Answer Date of Assessment Author No 10/31/2018 3:35 PM Larissa Horner RN * Do you have difficulty dressing or bathing? Answer Date of Assessment Author No 10/31/2018 3:35 PM Larissa Horner RN * Because of a physical, mental, or emotional condition, do you have difficulty doing errands alone such as visiting a doctor's office or shopping? Answer Date of Assessment Author No 10/31/2018 3:35 PM Larissa Horner RN documented as of this encounter Mental [...] Care Team (Late st Contact Info) Description 10/28/2024 11:45 AM EDT Office Visit Orthopaedics [address] [place] [address] Kev Ferrell MD [address] [place] [address] 1 month follow up -right shoulder documented as of this encounter Visit Diagnoses Not on filedocumented in this encounter Additional Health Concerns Infection Onset Date Last Indicated Resolved Time COVID-19 Rule-Out 05/04/2021 05/04/2021 05/04/2021 11:12 AM EDT documented as of this encounter Care Teams Metallurgical Engineer Relationship Specialty Start Date End Date Uli Mcdonald [address] [place] [id number] PCP - General Family Medicine 08/28/16 03/31/21 Stanton Velasco II, MD [address] [address] PCP - General Internal Medicine 04/01/21 Hossein Tran DO [address] [place] [address] Referring Ophthalmology 08/28/16 David Carrillo MD [address] [place] [address] Referring Urology 10/06/16 documented as of this encounter
--- OUTSIDE RECORDS SUMMARY | 2024-10-20 10:14 | XMS_ITS | Encounter Summary ---
Author Organization [facility] Address [address] [facility] [place] [address] Care Team Providers Care Personal Computer Network Engineer Name Role Phone Stanton Velasco MD Primary Care Provider [phone] Stanton Velasco MD Unavailable Alvina Sanchez LPN Unavailable Encounter Details Date Type Department Care Team (Late st Contact Info) Description 05/19/2024 Abstract [facility] [address] [facility] 110 [place] [address] Stanton Velasco MD 112 [facility] 110 [place] [address] Social History Tobacco Use Types Packs/Day Years [...] How often do you attend chur or voodoo services? 1 to 4 times per year 10/20/2022 Do you belong to any clubs o r organizations such as sabianist groups, unions, fraternal or athletic groups, or [...] Recorded Patient Health Questionnaire-2 Score 0 04/16/2024 [facility] - Occupational [...] as of this encounter Plan of Treatment Upcoming Encounters Date Type Department Care Team (Late st Contact Info) Description 10/24/2024 9:45 AM EDT Office Visit [facility] [place] [facility] 112 [facility] [address] [place] [address] Stanton Velasco MD [address] [facility] [address] [place] [address] documented as of this encounter Visit Diagnoses Not on filedocumented in this encounter Additional Health Concerns Assessment Noted Time PHQ-9 Depression Total Score: 0 05/23/19 24 9:00 AM EDT documented as of this encounter Care Teams Personal Computer Network Engineer Relationship Specialty Start Date End Date Stanton Velasco MD [address] [facility] [address] [place] [address] PCP - General Internal Medicine 08/18/22 Stanton Velasco MD [address] [facility] [address] [place] [address] PCP - Medical [place] 02/13/2402/11 Alvina Sanchez LPN [address] [place] [address] 05/06/24 documented as of this encounter
--- OUTSIDE RECORDS SUMMARY | 2024-10-20 10:14 | XMS_ITS | Encounter Summary ---
Author Organization [facility] Address [address] [place] [address] Care Team Providers Care Pavilion Cutter Name Role Phone Hossein Tran DO Unavailable [phone] David Carrillo MD Unavailable [phone] Rod FATIMA MD, Stanton Payne Primary Care Provider [phone] Source Comments In the event this information is protected by the Federal Confidentiality of Alcohol and Drug AbusePatient Records regulations: The Federal rules restrict any use of the information to criminally investigate or prosecute any alcohol or drug abuse patient.[facility] Reason for Visit * Reason Comments Patient Update Encounter Details Date Type Department Care Team (Late st Contact Info) Description 12/17/2023 Telephone Urology [address] [place] [address] Dianne Roldan MD [address] [place] [address] Patient Update Social History Tobacco [...] is lower risk 9 06/23/2022 Data from: https://www.neighborhoodatlas.medicine.[facility]/. Last address used for calculation [address] [...] of Assessment Author No 05/04/2021 3:26 PM Digeo Yu RN * Do you have serious [...] Entry Date Author No 05/04/2021 3:26 PM EDT Moree, Cortez llie, RN documented in this encounter Miscellaneous Notes [...] 11:45 AM EDT Office Visit Orthopaedics [address] [place] [address] Kev Ferrell MD [address] [facility] [place] [address] 1 month follow up -right shoulder documented as of this encounter Visit Diagnoses Not on filedocumented in this encounter Care Teams Pavilion Cutter Relationship Specialty Start Date End Date Stanton Velasco II, MD [address] [facility] [address] [place] [address] PCP - General Internal Medicine 04/01/21 Hossein Tran DO [address] [place] [address] Referring Ophthalmology 08/28/16 David Carrillo MD [address] [place] [address] Referring Urology 10/06/16 documented as of this encounter
--- OUTSIDE RECORDS SUMMARY | 2024-10-20 10:14 | XMS_ITS | Encounter Summary ---
Author Organization [facility] Address [address] [facility] [place] [address] Care Team Providers Care Academic Guidance Specialist Name Role Phone Stanton Velasco MD Primary Care Provider [phone] Stanton Velasco MD Unavailable [phone] Alvina Sanchez LPN Unavailable Encounter Details Date Type Department Care Team (Late st Contact Info) Description 06/17/2024 Abstract [facility] [address] [facility] 110 [place] [address] Stanton Velasco MD 112 [facility] [address] [place] [address] Social History Tobacco Use Types Packs/Day Years [...] How often do you attend chur or worship services? 1 to 4 times per year 10/20/2022 Do you belong to any clubs o r organizations such as anabaptist groups, unions, fraternal or athletic groups, or [...] Recorded Patient Health Questionnaire-2 Score 0 04/16/2024 [facility] - [...] place to sleep or slept in a [place] health care facility (including now)? No 10/20/2022 Sex and Gender Information Value Date Recorded Sex Assigned at Not on file Legal Sex Male 6:56 PM EDT Gender Identity Not on file Sexual Orientation Not on file documented as of this encounter Plan of Treatment Upcoming Encounters Date Type Department Care Team (Late st Contact Info) Description 10/24/2024 9:45 AM EDT Office Visit [facility] [place] [facility] 112 [facility] [address] [place] [address] Stanton Velasco MD [address] [facility] [address] [place] [address] documented as of this encounter Visit Diagnoses Not on filedocumented in this encounter Additional Health Concerns Assessment Noted Time PHQ-9 Depression Total Score: 0 05/23/19 24 9:00 AM EDT documented as of this encounter Care Teams Academic Guidance Specialist Relationship Specialty Start Date End Date Stanton Velasco MD [address] [facility] [address] [place] [address] PCP - General Internal Medicine 08/18/22 Stanton Velasco MD [address] [facility] [address] [place] [address] PCP - Medical [place] MA 02/13/2402/11 Alvina Sanchez LPN [address] [place] [address] 05/06/24 documented as of this encounter
--- OUTSIDE RECORDS SUMMARY | 2024-10-20 10:14 | XMS_ITS | Clinical Summary ---
Author Organization [facility] Address [address] [place] [address] Care Team Providers Care Information Engineer Name Role Phone Stanton Velasco MD Primary Care Provider [phone] Stanton Velasco MD Unavailable Alvina Sanchez LANDSCAPE CONTRACTOR Unavailable Allergies Active Allergy Reactions Criticality Noted Date Comments Bee Pollen Unknown,Swelling 01/30/2014 Bee Venom 06/26/2022 Other Reaction(s): Unknown Other Other 04/12/2021 Sneezing. Oxybutynin 06/20/2013 Other Reaction(s): Constipation Trospium Low 03/31/2014 Other Reaction(s): Xerostomia Medications rosuvastatin (Crestor) 40 MG tablet 1 (one) time each day at the same time. Active polyethylene glycol, PEG, 3350 (MiraLax) 17 GM/SCOOP powder as directed Orally Active metoprolol tartrate (Lopressor) 50 MG tablet [...] mouth Daily ON HOLD OF 04/03/2024. Active lactulose (Chronulac) 10 GM/15ML solutionIndication s:Constipation, unspecified constipation type TAKE 15ml BY MOUTH IN THE MORNING then TAKE 15ml BY MOUTH BEFORE bedtime 900 mL 3 09/02/19 25 Active Tenapanor HCl (Ibsrela) 50 MG tablet Take 50 mg by mouth in the morning and 50 mg before bedtime. 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 100 tablet 11 10/18/19 25 026 Active nitroglycerin (Nitrostat) 0.4 MG SL tablet as directed Sublingual 025 Discontin ued(Other ) linaCLOtide (Linzess) 290 MCG capsuleIndications :Chronic idiopathic constipation Take 1 capsule (290 mcg) by mouth in the morning for 16 days. Take before meals. Do not crush or chew.. 16 capsule 04/03/19 25 025 Discontin ued(Other ) Active Problems Problem Noted Date Diagnosed Date Chronic obstructive pulmonary disease 04/02/2024 Pulmonary granuloma of histoplasmosis ([facility]) 03/07/2024 Alteration in self-care ability 05/23/2023 Benign prostatic hyperplasia with urinary obstru ction 05/23/2023 Chronic idiopathic constipation 05/23/2023 Chronic ischemic heart disease 05/23/2023 Overview (05/23/2023): Aug 21, 2003 Entered By: CINDY OQUENDO Comment: DRUG-ELUTING STENTS X'S 2009 Entered By: CINDY OQUENDO Comment: CABG 2009 Entered By: CINDY OQUENDO Comment: HEART CATH 12/08/09 Edema 05/23/2023 History of coronary artery disease 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 Due Sep 2018 Presbyopia 05/23/2023 Abnormal gait 08/21/2022 Arthritis of both knees 08/21/2022 Atrophy of deltoid muscle 08/21/2022 Atrophy of muscle of right shoulder 08/21/2022 Diverticulosis of colon 08/21/2022 Dyslipidemia 08/21/2022 History of right knee joint replacement 08/22/19 Impingement syndrome of left shoulder 08/21/2022 Injury at C5 level of cervical spinal cord 07/10 /2023 Mild cognitive disorder 08/21/2022 Presence of shoulder joint prosthesis 08/21/2022 Contracture of right hip joint 08/21/2022 Raynaud's syndrome without gangrene 08/21/2022 Seasonal allergic rhinitis 08/21/2022 Stage 2 chronic kidney disease 08/21/2022 Disturbance of skin sensation 08/21/2022 Atopic dermatitis 06/26/2022 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 Added automatically from request for surgery [id number] Last Assessment & Plan: Assessment: Patient states that he self caths twice daily. Cervical spondylosis 05/04/2017 Overview (08/21/2022): Added automatically from request for surgery [id number] Added automatically from request for surgery [id number] Brachial plexopathy 03/12/2017 Benign essential hypertension 11/20/2011 [...] (08/21/2022): Added automatically from request for surgery [id number] Added automatically from request for surgery [id number] Hyperlipidemia 11/20/2011 05/23/2023 Encounters Date Type Department Care Team Description 10/17/2024 9:15 AM EDT Office Visit [facility] [place] [address] [place] [address] Stanton Velasco MD Left-sided chest pain (Primary Dx); 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 ; Chronic ischemic heart disease 10/17/2024 Travel 10/09/2024 Telephone [facility] [place] [address] [place] [address] Alvina Sanchez LANDSCAPE CONTRACTOR 10/09/2024 Patient Outreach [facility] [place] [address] [place] [address] Alvina Sanchez [facility] 09/19/2024 Clinisync Result Encounter [facility] External Department Unsolicited Provider, Generic External Data 08/31/2024 Refill [facility] [place] [address] [place] [address] Makayla Burch, HEALTH SAFETY MANAGER Constipation, unspecified constipation type 08/29/2024 Clinisync Result Encounter [facility] External Department Unsolicited Provider, Generic External Data 08/18/2024 Telephone [facility] [place] [place] [address] Nessa Scott PA 08/18/2024 Clinisync Result Encounter [facility] External Department Unsolicited Stanton Velasco MD 08/18/2024 Telephone [facility] [place] [address] [address] Stanton Velasco MD xray request from Last 3 Months Immunizations Immunization Administration [...] any clubs o r organizations such as religious groups, unions, fraternal or athletic groups, or [...] Recorded Patient Health Questionnaire-2 Score 0 04/16/2024 [facility] - Occupational Stress Questionnaire Answer Date [...] AM EDT Temperature - - Respiratory Rate 16 04/16/2024 2:21 PM EST Oxygen Saturation 97% 10/17/2024 9:19 AM EDT Inhaled Oxygen Concentration - - Weight 98.9 kg (218 lb) 10/17/2024 9:19 AM EDT Height 177.8 cm (5' 10 ) 10/17/2024 9:19 AM EDT Body Mass Index 31.28 10/17/2024 9:19 AM EDT Plan of Treatment Upcoming Encounters Date Type Department Care Team (Late st Contact Info) Description 10/24/2024 9:45 AM EDT Office Visit [facility] [place] [facility] [address] [facility] [address] [place] [address] Stanton Velasco MD [address] [facility] [address] [place] [address] Health Maintenance Due Date Last Done Comments Influenza Vaccine (#1) 2024 , 11/09/2022, 11/17/2021, Additional history exists Medicare Annual Wellness (AWV) 02/14/2025 0 02/15/2024, 05/23/2023, 05/12/2022, Additional history exists Pneumococcal Vaccine: 65+ Years Completed 09/08/2021, 11/12/2017, 11/13/2014, Additional history exists Colonoscopy Discontinued 04/04/2023, 10/12/2021 Colorectal Cancer Screening Discontinued CT Colonography Discontinued FIT-DNA Discontinued FIT Discontinued FOBT Discontinued Sigmoidoscopy Discontinued Procedures Procedure Name Priority Date/Time Associated Diagnosis Comments XR CLAVICLE 2V RT 09/19/2024 9:4 9 AM EDT XR SHLDR 4V AP/LUCITA/LAT/OUTLET RT 08/29/2024 8:19 AM EDT XR SHOULDER RT MIN 2V 08/18/2024 4:47 PM EDT COLONOSCOPY DIAGNOSTIC Routine 04/04/2023 1:22 PM EST from Last 3 Months or Most Recently Relevant to Health Maintenance Results * XR CLAVICLE 2V RT (09/19/2024 9:49 AM EDT) Anatomical Region Laterality Modality Other 09/19/2024 9:49 AM EDT Narrative 09/19/2024 10:52 AM EDT * * *Final Report* * * DATE OF EXAM: Sep 19 2024 9:49AM [id number] - XR CLAVICLE 2V RT / PROCEDURE REASON: Closed nondisplaced fracture of acromial end of right clavicle, initial encounte * * * * Physician Interpretation * * * * HISTORY: Closed nondisplaced fracture of acromial end of right clavicle, initial encounter TECHNOLOGIST PROVIDED HISTORY (if applicable): f/u fx rt clavicle TECHNIQUE: XR CLAVICLE 2V RT RESULT: RIGHT clavicle 2 views compared with August 29. The mildly comminuted fracture of the distal RIGHT clavicle shows some resorption about its margins and early callus formation consistent with subacute chronicity with early healing changes. Abdomen extend to the articular surfaces inferiorly. Mild degenerative changes at the acromioclavicular joint are unchanged. The coracoclavicular distance is grossly normal. Reversed total shoulder arthroplasty components are incompletely visualized but similar to the prior. Mature ossification inferior to the glenoid component is unchanged. Postoperative changes of multilevel laminoplasty in the cervical spine and median sternotomy are again seen. IMPRESSION: SUBACUTE DISTAL RIGHT CLAVICLE FRACTURE WITH EARLY HEALING. Heel Top Lift Splitter: [facility] Transcribe Date/Time: Sep 19 2024 10:47A Dictated by : MARIO HODGES MD This examination was interpreted and the report reviewed and electronically signed by: MARIO HODGES MD on Sep 19 2024 10:50AM EST [id number]^SI^ACN Procedure Note Radiology, Radiologist, MD - 09/19/2024 * * *Final Report* * * DATE OF EXAM: Sep 19 2024 9:49AM [id number] - XR CLAVICLE 2V RT / PROCEDURE REASON: Closed nondisplaced fracture of acromial end of right clavicle, initial encounte * * * * Physician Interpretation * * * * HISTORY: Closed nondisplaced fracture of acromial end of right clavicle, initial encounter TECHNOLOGIST PROVIDED HISTORY (if applicable): f/u fx rt clavicle TECHNIQUE: XR CLAVICLE 2V RT RESULT: RIGHT clavicle 2 views compared with August 29. The mildly comminuted fracture of the distal RIGHT clavicle shows some resorption about its margins and early callus formation consistent with subacute chronicity with early healing changes. Abdomen extend to the articular surfaces inferiorly. Mild degenerative changes at the acromioclavicular joint are unchanged. The coracoclavicular distance is grossly normal. Reversed total shoulder arthroplasty components are incompletely visualized but similar to the prior. Mature ossification inferior to the glenoid component is unchanged. Postoperative changes of multilevel laminoplasty in the cervical spine and median sternotomy are again seen. IMPRESSION: SUBACUTE DISTAL RIGHT CLAVICLE FRACTURE WITH EARLY HEALING. Heel Top Lift Splitter: [facility] Transcribe Date/Time: Sep 19 2024 10:47A Dictated by : MARIO HODGES MD This examination was interpreted and the report reviewed and electronically signed by: MARIO HODGES MD on Sep 19 2024 10:50AM EST [id number]^SI^ACN Generic External Data Provider [facility] Final Result * XR SHLDR 4V AP/LUCITA/LAT/OUTLET RT (08/29/2024 8:19 AM EDT) Anatomical Region Laterality Modality Other 08/29/2024 8:19 AM EDT Narrative 08/29/2024 9:18 AM EDT * * *Final Report* * * DATE OF EXAM: Aug 29 2024 8:19AM [id number] - XR SHLDR 4V AP/LUCITA/LAT/OUTLET RT / PROCEDURE REASON: Right shoulder pain, unspecified chronicity * * * * Physician Interpretation * * * * EXAMINATION: XR SHLDR 4V AP/LUCITA/LAT/OUTLET RT CLINICAL HISTORY: Pain. Right shoulder pain, unspecified chronicity Technique: XR SHLDR 4V AP/LUCITA/LAT/OUTLET RT Comparison: 06/23/2022, 11/08/2021 RESULT: Reverse RIGHT shoulder arthroplasty without signs of hardware loosening or failure. Nondisplaced distal clavicle fracture with mild periosteal reaction which is new since 11/08/2021. Mild acromioclavicular joint space narrowing with osteophytes. Visualized RIGHT lung is clear. IMPRESSION: Reverse RIGHT shoulder arthroplasty without hardware complication. Healing nondisplaced distal clavicle fracture. Heel Top Lift Splitter: [facility] Transcribe Date/Time: Aug 29 2024 9:14A Dictated by : YUAN PATINO DO This examination was interpreted and the report reviewed and electronically signed by: YUAN PATINO DO on Aug 29 2024 9:16AM EST [id number]^[id number]^SI^ACN Procedure Note Radiology, Radiologist, - 08/29/2024 * * *Final Report* * * DATE OF EXAM: Aug 29 2024 8:19AM [id number] - XR SHLDR 4V AP/LUCITA/LAT/OUTLET RT / PROCEDURE REASON: Right shoulder pain, unspecified chronicity * * * * Physician Interpretation * * * * EXAMINATION: XR SHLDR 4V AP/LUCITA/LAT/OUTLET RT CLINICAL HISTORY: Pain. Right shoulder pain, unspecified chronicity Technique: XR SHLDR 4V AP/LUCITA/LAT/OUTLET RT Comparison: 06/23/2022, 11/08/2021 RESULT: Reverse RIGHT shoulder arthroplasty without signs of hardware loosening or failure. Nondisplaced distal clavicle fracture with mild periosteal reaction which is new since 11/08/2021. Mild acromioclavicular joint space narrowing with osteophytes. Visualized RIGHT lung is clear. IMPRESSION: Reverse RIGHT shoulder arthroplasty without hardware complication. Healing nondisplaced distal clavicle fracture. Heel Top Lift Splitter: [facility] Transcribe Date/Time: Aug 29 2024 9:14A Dictated by : YUAN PATINO DO This examination was interpreted and the report reviewed and electronically signed by: YUAN PATINO DO on Aug 29 2024 9:16AM EST [id number]^[id number]^SI^ACN Generic External Data Provider [facility] Final Result * XR SHOULDER RT MIN 2V (08/18/2024 4:47 PM EDT) Anatomical Region Laterality Modality Other 08/18/2024 4:47 PM EDT Narrative 08/18/2024 4:49 PM EDT [address] [address] XRay Report Signed Patient: FAHAD PATEL MR#: [id number] : 1950 Acct:[id number] Age/Sex: 73 / M ADM Date: 08/18/24 Loc: RAD Attending Dr: STANTON VELASCO Ordering Physician: STANTON VELASCO Date of Service: 08/18/24 Procedure(s): XR shoulder RT min 2V Accession Number(s): [id number] cc: STANTON VELASCO [address] [address] Patient Name: FAHAD PATEL MRN: [id number] date: 1950 Sex: M Assigned Patient Location: RAD Current Patient Location: RAD Accession/Order Number: [id number] Exam Date: 08/18/2024 16:43 Report Date: 08/18/2024 16:47 At the request of: STANTON VELASCO Procedure: XR shoulder RT min 2V 3 views right shoulder plain film HISTORY: Acute right shoulder pain. Fell. COMPARISON: 03/31/2024 acute abdominal series ACUTE FINDINGS: Mildly comminuted fracture of the distal clavicle. Acromioclavicular spurring. DEGENERATIVE CHANGE: Unremarkable SOFT TISSUE FINDINGS: Unremarkable JOINT EFFUSION: None POSTOP CHANGES: Right shoulder arthroplasty without hardware failure. Bony density inferior to the shoulder arthroplasty. May represent remote postsurgical change. May consider myositis ossificans/heterotopic bone. Old right rib fractures. BONY MINERALIZATION: Adequate XR/XR shoulder RT min 2V IMPRESSION: Concern for acute fracture of the distal right clavicle. Impression dictated by: Daniel Morgan M.D. 08/18/2024 4:47 PM Dictation Location: [place] [address] Electronically authenticated by: [id number] Y Date: 08/18/2024 16:47 Dictated By: Daniel Morgan D.O. Signed By: 08/18/241648 DD/ 46 TD/TT: Heel Top Lift Splitter: Procedure Note Radiology, Radiologist, MD - 08/18/2024 [place] [id number] XRay Report Signed Patient: FAHAD PATEL AMR#: [id number] : 1950cct:[id number] Age/Sex: 73 / MADM Date: 08/18/24 Loc: RAD Attending Dr: STANTON VELASCO Ordering Physician: STANTON VELASCO Date of Service: 08/18/24 Procedure(s): XR shoulder RT min 2V Accession Number(s): [id number] cc: STANTON VELASCO [place] [id number] Patient Name: FAHAD PATEL MRN: [id number] date: 1950 Sex: M Assigned Patient Location: RAD Current Patient Location: RAD Accession/Order Number: [id number] Exam Date: 08/18/2024 16:43 Report Date: 08/18/2024 16:47 At the request of: STANTON VELASCO Procedure: XR shoulder RT min 2V 3 views right shoulder plain film HISTORY: Acute right shoulder pain. Fell. COMPARISON: 03/31/2024 acute abdominal series ACUTE FINDINGS: Mildly comminuted fracture of the distal clavicle. Acromioclavicular spurring. DEGENERATIVE CHANGE: Unremarkable SOFT TISSUE FINDINGS: Unremarkable JOINT EFFUSION: None POSTOP CHANGES: Right shoulder arthroplasty without hardware failure.Bony density inferior to the shoulder arthroplasty. May represent remote postsurgical change. May consider myositis ossificans/heterotopic bone.Old right rib fractures. BONY MINERALIZATION: Adequate XR/XR shoulder RT min 2V IMPRESSION: Concern for acute fracture of the distal right clavicle. Impression dictated by: Daniel Morgan M.D. 08/18/2024 4:47 PM Dictation Location: [place] [address] Electronically authenticated by: [id number] Y Date: 6:47 Dictated By: Daniel Morgan D.O. Signed By:08/18/249 DD/ 46 TD/TT: Heel Top Lift Splitter: us Stanton Velasco MD [facility] Final Result * COLONOSCOPY DIAGNOSTIC (04/04/2023 1:22 PM EST) Anatomical Region Laterality Modality Radiographic Kathie ging us Noms Provider Unallocated MD JUNIORG XR PROCEDURES F inal Result from Last 3 Months or Most Recently Relevant to Health Maintenance Insurance [employer] Care Teams Information Engineer Relationship Specialty Start Date End Date tSanton Velasco MD [address] [facility] [address] [place] [address] PCP - General Internal Medicine 08/18/22 Stanton Velasco MD [address] [facility] [address] [place] [address] PCP - Medical [facility] 02/13/2402/11 Alvina Sanchez LPN [address] [address] 05/06/24
--- OUTSIDE RECORDS SUMMARY | 2024-10-20 10:14 | XMS_ITS | Encounter Summary ---
Author Organization [facility] Address [address] [place] [address] Care Team Providers Care Signal Timer Name Role Phone Stanton Velasco MD Primary Care Provider [phone] Stanton Velasco MD Unavailable [phone] Alvina Sanchez LPN Unavailable Reason for Referral * Consultation (Routine) - Authorized Specialty Diagnoses / Procedures Referred By Contac t Referred To Contact Gastroenterology Diagnoses Chronic idiopathic constipation Constipation, unspecified constipation type Procedures [place] OFFICE/OUTPATIENT [facility] 60 MINUTES Nessa Scott PA [address] [facility] [address] [place] [address] Phone: tel: fax: Iker Wilkins MD [address] [place] [address], [address] [place] [address] Phone: tel: fax: Referral ID Status Reason Start Date Expiration Date Visits Requested Visits Authorized [id number] Authorized Consult and Treat 10/09/2024 04/07/2025 1 1 Encounter Details Date Type Department Care Team (Late st Contact Info) Description 10/09/2024 Telephone [facility] [place] [address] Alvina Sanchez LPN [address] [facility] [address] [place] [address] Social History Tobacco Use Types Packs/Day Years [...] often do you attend chur ch or yazidism services? 1 to 4 times per year 10/20/2022 Do you belong to any clubs o r organizations such as scientology groups, unions, fraternal or athletic groups, or [...] Recorded Patient Health Questionnaire-2 Score 0 04/16/2024 [facility]ational [facility] Questionnaire Answer Date [...] on file documented as of this encounter Progress Notes * Alvina Sanchez LPN - 10/09/2024 3:51 PM EDT Referral sent to Dr. Wilkins. documented in this encounter Miscellaneous Notes * Telephone Encounter - NICKIE Porter - 10/09/2024 3:20 PM EDT That's fine, if Dr. Wilkins is no longer in the area, I would recommend Dr. Hardin. documented in this encounter Plan of Treatment Upcoming Encounters Date Type Department Care Team (Late st Contact Info) Description 10/24/2024 9:45 AM EDT Office Visit [facility] [place] [address] [facility] 110 [place] [address] Stanton Velasco MD 112 [facility] 110 [place] [address] Scheduled Referrals Name Type Priority Associated Diagnoses Order Schedule Ambulatory referral to Gastroenterology Outpatient Referral Routine Chronic idiopathic constipation Constipation, unspecified constipation type Expected: 10/09/2024 (Approximate), Expires: 04/11/2025 documented as of this encounter Visit Diagnoses Diagnosis Chronic idiopathic constipation Unspecified constipation Constipation, unspecified constipation type documented in this encounter Additional Health Concerns Assessment Noted Time PHQ-9 Depression Total Score: 0 05/23/19 24 9:00 AM EDT documented as of this encounter Care Teams Signal Timer Relationship Specialty Start Date End Date Stanton Velasco MD [address] [facility] 110 [place] [address] PCP - General Internal Medicine 08/18/22 Stanton Velasco MD [address] [facility] [address] [place] [address] PCP - Medical [facility] 02/13/2402/11 Alvina Sanchez LPN [address] [facility] [address] [place] [address] 05/06/24 documented as of this encounter
--- OUTSIDE RECORDS SUMMARY | 2024-10-20 10:14 | XMS_ITS | Encounter Summary ---
Author Organization [facility] Address [address] [place] [address] Care Team Providers Care Collar Separator Name Role Phone Stanton Velasco MD Primary Care Provider [phone] Stanton Velasco MD Unavailable [phone] Alvina Sanchez LPN Unavailable Encounter Details Date Type Department Care Team (Late st Contact Info) Description 06/26/2024 Abstract [facility] [address] [facility] 110 [place] [address] Stanton Velasco MD 112 [facility] 110 [place] [address] Social History Tobacco Use Types Packs/Day Years [...] How often do you attend chur or orthodox services? 1 to 4 times per year 10/20/2022 Do you belong to any clubs o r organizations such as taoism groups, unions, fraternal or athletic groups, or [...] place to sleep or slept in a care home (including now)? No 10/20/2022 Sex and [...] EDT Office Visit [facility] [place] 112 [facility] 110 [place] [address] Stanton Velasco MD [address] [facility] [address] [place] [address] documented as of this encounter Visit Diagnoses Not on filedocumented in this encounter Additional Health Concerns Assessment Noted Time PHQ-9 Depression Total Score: 0 05/23/19 24 9:00 AM EDT documented as of this encounter Care Teams Collar Separator Relationship Specialty Start Date End Date Stanton Velasco MD [address] [facility] 110 [place] [address] PCP - General Internal Medicine 08/18/22 Stanton Velasco MD [address] [facility] 110 [place] [address] PCP - Medical [place] [facility] 02/13/2402/11 Alvina Sanchez LPN [address] [place] [address] 05/06/24 documented as of this encounter
--- OUTSIDE RECORDS SUMMARY | 2024-10-20 10:14 | XMS_ITS | Encounter Summary ---
Author Organization [facility] Address [address] [facility] [place] [address] Care Team Providers Care Ict Business Analyst Name Role Phone Stanton Velasco MD Primary Care Provider [phone] Stanton Velasco MD Unavailable [phone] Alvina Sanchez LPN Unavailable Encounter Details Date Type Department Care Team (Late st Contact Info) Description 05/15/2024 Abstract [facility] [address] [facility] 110 [place] [address] Stanton Velasco MD 112 [facility] 110 [place] [address] Social History Tobacco Use Types Packs/Day Years [...] How often do you attend chur or mandaen services? 1 to 4 times per year 10/20/2022 Do you belong to any clubs o r organizations such as yarsanism groups, unions, fraternal or athletic groups, or [...] Recorded Patient Health Questionnaire-2 Score 0 04/16/2024 [facility] of Occupat ional Health - Occupational Stress [...] place to sleep or slept in a skilled nursing (including now)? No 10/20/2022 Sex and Gender Information Value Date Recorded Sex Assigned at Not on file Legal Sex Male 6:56 PM EDT Gender Identity Not on file Sexual Orientation Not on file documented as of this encounter Plan of Treatment Upcoming Encounters Date Type Department Care Team (Late st Contact Info) Description 10/24/2024 9:45 AM EDT Office Visit [facility] [place] Strickland 112 [facility] 110 [place] [address] Stanton Velasco MD [address] [facility] 110 [place] [address] documented as of this encounter Visit Diagnoses Not on filedocumented in this encounter Additional Health Concerns Assessment Noted Time PHQ-9 Depression Total Score: 0 05/23/19 24 9:00 AM EDT documented as of this encounter Care Teams Ict Business Analyst Relationship Specialty Start Date End Date Stanton Velasco MD 112 [facility] 110 [place] [address] PCP - General Internal Medicine 08/18/22 Stanton Velasco MD [address] [facility] 110 [place] [address] PCP - Medical [place] 02/13/2402/11 Alvina Sanchez LPN 112 [address] [place] [address] 05/06/24 documented as of this encounter
--- OUTSIDE RECORDS SUMMARY | 2024-10-20 10:14 | XMS_ITS | Encounter Summary ---
Author Organization [facility] Address [address] [facility] [place] [address] Care Team Providers Care Instructor Ballroom Dancing Name Role Phone Stanton Velasco MD Primary Care Provider [phone] Emelyn Hall RN Unavailable [phone] Stanton Velasco MD Unavailable [phone] Alvina Sanchez LPN Unavailable Encounter Details Date Type Department Care Team (Late st Contact Info) Description 04/15/2024 Abstract [facility] [place] [facility] [address] [facility] 110 [place] [address] Stanton Velasco MD 112 [facility] 110 [place], [place] [address] Social History Tobacco Use Types Packs/Day Years [...] often do you attend chur ch or taoism services? 1 to 4 times per year 10/20/2022 Do you belong to any clubs o r organizations such as sikhism groups, unions, fraternal or athletic groups, or [...] Recorded Patient Health Questionnaire-2 Score 0 04/16/2024 [facility] of Occupat ional Health - [...] Office Visit [facility] [place] Strickland [address] [place] [address] [place] [address] Stanton Velasco MD [address] [place] 110 [place] [address] documented as of this encounter Visit Diagnoses Not on filedocumented in this encounter Additional Health Concerns Assessment Noted Time PHQ-9 Depression Total Score: 0 05/23/19 24 9:00 AM EDT documented as of this encounter Care Teams Instructor Ballroom Dancing Relationship Specialty Start Date End Date Stanton Velasco MD [address] [facility] 110 [place] [address] PCP - General Internal Medicine 08/18/22 Stanton Velasco MD [address] [facility] 110 [place] [address] PCP - Medical [facility] 02/13/2402/11 Emelyn Hall, RN [address] [place] [address] Clinical [facility] 03/21/24 05/06/24 Alvina Sanchez LPN [address] [facility] 110 [place] [address] 05/06/24 documented as of this encounter
--- OUTSIDE RECORDS SUMMARY | 2024-10-20 10:15 | XMS_ITS | Encounter Summary ---
Author Organization [facility] Address [address] [facility] [place] [address] Care Team Providers Care Rod Finisher Name Role Phone Stanton Velasco MD Unavailable [phone] Stanton Velasco MD Primary Care Provider [phone] Emelyn Hall RN Unavailable [phone] Stanton Velasco MD Unavailable [phone] Alvina Sanchez LPN Unavailable Encounter Details Date Type Department Care Team (Late st Contact Info) Description 10/03/2023 Abstract [facility] [place] [facility] [address] [facility] 110 [place] [address] Stanton Velasco MD 112 [address] [facility] 110 [place], [place] [phone] Social History Tobacco Use Types Packs/Day Years [...] How often do you attend chur or nondenominational services? 1 to 4 times per year 10/20/2022 Do you belong to any clubs o r organizations such as quaker groups, unions, fraternal or athletic groups, or [...] Recorded Patient Health Questionnaire-2 Score 0 05/23/2023 [facility] of Occupat ional Health - Occupational [...] Description 10/24/2024 9:45 AM EDT Office Visit [facility] Strickland [address] [place] [address] [place] [address] Stanton Velasco MD [address] [place] [address] [place] [address] documented as of this encounter Visit Diagnoses Not on filedocumented in this encounter Additional Health Concerns Assessment Noted Time PHQ-9 Depression Total Score: 0 05/23/19 24 9:00 AM EDT documented as of this encounter Care Teams Rod Finisher Relationship Specialty Start Date End Date Stanton Velasco MD [address] [place] [address] [place] [address] PCP - Devoted 02/12/21 02/12/24 Stanton Velasco MD [address] [facility] 110 [place] [address] PCP - General Internal Medicine 08/18/22 Stanton Velasco MD [address] [facility] 110 [place] [address] PCP - Medical [facility] 02/13/2402/11 Emelyn Hall, LEATHA [address] [place] [address] Clinical [facility]ocate Family Medicine 03/21/24 05/06/24 Alvina Sanchez LPN [address] [place] [address] 05/06/24 documented as of this encounter
--- OUTSIDE RECORDS SUMMARY | 2024-10-20 10:15 | XMS_ITS | Encounter Summary ---
Author Organization [facility] Address [address] [place] [address] Care Team Providers Care Rural Mail Contractor Name Role Phone Stanton Velasco MD Primary Care Provider [phone] Emelyn Hall RN Unavailable [phone] Stanton Velasco MD Unavailable [phone] Alvina Sanchez LPN Unavailable Encounter Details Date Type Department Care Team (Late st Contact Info) Description 03/07/2024 Clinisync Result Encounter [facility] External Department Unsolicited Stanton Velasco MD [address] [place] 110 [place] [address] Social History Tobacco Use Types [...] How often do you attend chur or rastafarian services? 1 to 4 times per year 10/20/2022 Do you belong to any clubs o r organizations such as zoroastrian groups, unions, fraternal or athletic groups, or [...] Recorded Patient Health Questionnaire-2 Score 0 03/07/2024 [facility] of Occupat ional Health - Occupational [...] place to sleep or slept in a jail (including now)? No 10/20/2022 Sex and Gender [...] Visit [facility] [place] Strickland [address] [facility] 110 [place] [address] Stanton Velasco MD [address] [facility] 110 [place] [address] (work) documented as of this encounter Procedures Procedure Name Priority Date/Time Associated Diagnosis Comments CT CHEST WO CON 03/07/2024 6:38 AM EST documented in this encounter Results * CT CHEST WO CON (03/07/2024 6:38 AM EST) Anatomical Region Laterality Modality Other 03/07/2024 6:38 AM EST Narrative 03/07/2024 6:41 [place] [address] CT Scan Report Signed Patient: CHELSEA SOTELO MR#: [id number] : 1950 Acct:[id number] Age/Sex: 73 / M ADM Date: 03/06/24 Loc: CT Attending Dr: STANTON VELASCO Ordering Physician: STANTON VELASCO Date of Service: 03/06/24 Procedure(s): CT chest wo con Accession Number(s): [id number] cc: STANTON VELASCO [place] [address] Patient Name: CHELSEA SOTELO MRN: [id number] date: 1950 Sex: M Assigned Patient Location: CT Current Patient Location: Accession/Order Number: [id number] Exam Date: 03/06/2024 14:12 Report Date: 03/07/2024 [...] Dictated By: Silverio Boykin M.D. Signed By: 03/07/2441 DD/ 7 TD/TT: Hand Box Coverer: Procedure Note Radiology, Radiologist, MD - 03/07/2024 [place] [address] CT Scan Report Signed Patient: CHELSEA SOTELO AMR#: [id number] : 1950cct:[id number] Age/Sex: 73 / MADM Date: 03/06/24 Loc: CT Attending Dr: STANTON VELASCO Ordering Physician: STANTON VELASCO Date of Service: 03/06/24 Procedure(s): CT chest wo con Accession Number(s): [id number] cc: STANTON VELASCO [place] [address] Patient Name: CHELSEA SOTELO MRN: [id number] date: 1950 Sex: M Assigned Patient Location: CT Current Patient Location: Accession/Order Number: [id number] Exam Date: 03/06/2024 14:12 Report Date: 03/07/2024 [...] M.D. Signed By:03/07/24 0641 DD/ 0638 TD/TT: Hand Box Coverer: Stanton Velasco MD [facility] Final Result documented in this encounter Visit Diagnoses Not on filedocumented in this encounter Additional Health Concerns Assessment Noted Time PHQ-9 Depression Total Score: 0 05/23/19 24 9:00 AM EDT documented as of this encounter Care Teams Rural Mail Contractor Relationship Specialty Start Date End Date Stanton Velasco MD [address] [facility] 110 [place] [address] PCP - General Internal Medicine 08/18/22 Stanton Velasco MD [address] [facility] 110 [place] [address] PCP - Medical [place] 02/13/2402/11 Emelyn Hall, RN [address] [place] [address] Clinical Advocate Family Medicine 03/21/24 05/06/24 Alvina Sanchez LPN [address] [address] 05/06/24 documented as of this encounter
--- OUTSIDE RECORDS SUMMARY | 2024-10-20 10:15 | XMS_ITS | Encounter Summary ---
Author Organization [facility] Address [address] [facility] [place] [address] Care Team Providers Care Food And Nutrition Services Assistant Name Role Phone Stanton Velasco MD Unavailable [phone] Stanton Velasco MD Primary Care Provider [phone] Emelyn Hall RN Unavailable [phone] Stanton Velasco MD Unavailable [phone] Alvina Sanchez LPN Unavailable Encounter Details Date Type Department Care Team (Late st Contact Info) Description 09/06/2022 Abstract [facility] [place] [facility] [address] [facility] 110 [place] [address] Stanton Velasco MD 112 [place] [facility] 110 [place] [address] Social History Tobacco Use Types Packs/Day Years [...] Encounters Date Type Department Care Team (Late Contact Info) Description 10/24/2024 9:45 AM EDT Office Visit [facility] [place] Horowitz Karli [address] [facility] 110 [place] [address] Stanton Velasco MD 112 [place] [facility] 110 [place], [place] [address] documented as of this encounter Visit Diagnoses Not on filedocumented in this encounter Care Teams Food And Nutrition Services Assistant Relationship Specialty Start Date End Date Stanton Velasco MD [address] [place] [address] [facility] 110 [place] [address] PCP - Devoted 02/12/21 02/12/24 Stanton Velasco MD [address] [place] [address] [facility] 110 [place] [address] PCP - General Internal Medicine 08/18/22 Stanton Velasco MD [address] [place] [address] [facility] 110 [place] [address] PCP - Medical [place] 02/13/2402/11 Emelyn Hall, RN [address] [place], [place] [address] Clinical [facility]ocate Family Medicine 03/21/24 05/06/24 Alvina Sanchez LPN [address] [place] [address] [facility] 110 [place] [address] 05/06/24 documented as of this encounter
--- OUTSIDE RECORDS SUMMARY | 2024-10-20 10:15 | XMS_ITS | Encounter Summary ---
Author Organization [facility] Address [address] [facility] [place] [address] Care Team Providers Care Chinese Language Professor Name Role Phone Stanton Velasco MD Unavailable [phone] Stanton Velasco MD Primary Care Provider [phone] Emelyn Hall RN Unavailable [phone] Stanton Velasco MD Unavailable [phone] Alvina Sanchez LPN Unavailable Encounter Details Date Type Department Care Team (Late st Contact Info) Description 06/18/2023 Abstract [facility] [place] [facility] [address] [facility] 110 [place] [address] Stanton Velasco MD 112 [facility] 110 [place], [place] [phone] Social History Tobacco Use Types Packs/Day Years [...] How often do you attend chur or muslim services? 1 to 4 times per year 10/20/2022 Do you belong to any clubs o r organizations such as restorationist groups, unions, fraternal or athletic groups, or [...] Recorded Patient Health Questionnaire-2 Score 0 05/23/2023 [facility] of Occupat ional Health - Occupational [...] Strickland [address] [place] [address] [place] [address] Stanton Velasco MD [address] [place] [address] [place] [address] documented as of this encounter Visit Diagnoses Not on filedocumented in this encounter Additional Health Concerns Assessment Noted Time PHQ-9 Depression Total Score: 0 05/23/19 24 9:00 AM EDT documented as of this encounter Care Teams Chinese Language Professor Relationship Specialty Start Date End Date Stanton Velasco MD [address] [place] [address] PCP - Devoted 02/12/21 02/12/24 Stanton Velasco MD [address] [facility] 110 [place] [address] PCP - General Internal Medicine 08/18/22 Stanton Velasco MD [address] [facility] 110 [place] [address] PCP - Medical [facility] 02/13/2402/11 Emelyn Hall, LEATHA [address] [place] [address] Clinical Advocate Family Medicine 03/21/24 05/06/24 Alvina Sanchez LPN [address] [place] [address] 05/06/24 documented as of this encounter
--- OUTSIDE RECORDS SUMMARY | 2024-10-20 10:15 | XMS_ITS | Encounter Summary ---
Author Organization [facility] Address [address] [facility] [place] [address] Care Team Providers Care American Indian Policy Specialist Name Role Phone Stanton Velasco MD Unavailable [phone] Stanton Velasco MD Primary Care Provider [phone] Emelyn Hall RN Unavailable [phone] Stanton Velasco MD Unavailable [phone] Alvina Sanchez LPN Unavailable Encounter Details Date Type Department Care Team (Late st Contact Info) Description 05/24/2023 Abstract [facility] [place] [facility] [address] [facility] 110 [place] [phone] Stanton Velasco MD [address] [facility] 110 [place], [place] [phone] Social History Tobacco Use Types Packs/Day Years [...] How often do you attend chur or mosque services? 1 to 4 times per year 10/20/2022 Do you belong to any clubs o r organizations such as zoroastrianism groups, unions, fraternal or athletic groups, or [...] Recorded Patient Health Questionnaire-2 Score 0 05/23/2023 [facility] of Occupat ional Health - [...] [address] [place] [address] [place] [address] Stanton Velasco MD [address] [place] [address] [place] [address] documented as of this encounter Visit Diagnoses Not on filedocumented in this encounter Additional Health Concerns Assessment Noted Time PHQ-9 Depression Total Score: 0 05/23/19 24 9:00 AM EDT documented as of this encounter Care Teams American Indian Policy Specialist Relationship Specialty Start Date End Date Stanton Velasco MD [address] [place] [address] [place] [address] PCP - Devoted 02/12/21 02/12/24 Stanton Velasco MD [address] [facility] 110 [place] [address] PCP - General Internal Medicine 08/18/22 Stanton Velasco MD [address] [facility] 110 [place] [address] PCP - Medical [facility] 02/13/2402/11 Emelyn Hall, LEATHA [address] [place] [address] Clinical [facility]ocate Family Medicine 03/21/24 05/06/24 Alvina Sanchez LPN [address] [place] [address] 05/06/24 documented as of this encounter
--- OUTSIDE RECORDS SUMMARY | 2024-10-20 10:15 | XMS_ITS | Clinical Summary ---
Author Organization [facility] Address [address] [place], [place] [address] Care Team Providers Care Kindergarten Paraprofessional Name Role Phone Hossein Tran DO Unavailable [phone] David Carrillo MD Unavailable [phone] Rod FATIMA MD, Stanton Payne Primary Care Provider [phone] Allergies Active Allergy Reactions Criticality Noted Date [...] 50 mg tabletIndications: Coronary artery disease involving confederated goshute coronary artery of confederated goshute heart without angina pectoris,Essential hypertension,Hyper lipidemia, unspecified [...] (06/20/2017): Added automatically from request for surgery [id number] Assessment & Plan (07/05/2023 10:07 AM EDT): Assessment: Patient states that he self caths twice daily. Assessment & Plan (04/12/2021 11:49 AM EST): Assessment: Patient states that he self caths twice daily. Cervical stenosis of spine 05/29/2017 Cervical spondylosis with myelopathy 05/04/2017 Overview (05/04/2017): Added automatically from request for surgery [id number] Assessment & Plan (07/05/2023 10:05 AM EDT): Assessment: s/p cervical fusion Preop testing 05/04/2017 Overview (05/04/2017): Added automatically from request for surgery [id number] Shoulder weakness 03/12/2017 Brachial plexopathy 03/12/2017 Cervical spinal stenosis 03/12/2017 CAD (coronary artery disease) 02/13/2004 Overview (05/23/2017): [place] in 1997. 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 in 2004 Assessment & Plan (07/05/2023 10:05 AM EDT): Assessment: [place] in 1997. 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 S/T CABG 2004. Follows with chrome tanner Assessment & Plan (10/10/2018 8:02 AM EDT): [...] 10:06 AM EDT): Assessment: stable on medication Encounters Date Type Department Care Team Description 09/19/2024 10:00 AM EDT Office Visit Orthopaedics [address] [place] [address] Kev Ferrell MD Closed nondisplaced fracture of acromial end of right clavicle with routine healing, subsequent encounter (Primary Dx) 09/19/2024 9:36 AM EDT - 09/19/2024 11:59 PM EDT Hospital Encounter Radiology [address] [place] [address] Closed nondisplaced fracture of acromial end of right clavicle, initial encounter [S42.034A] Discharge Disposition: Home 09/19/2024 Radiology Radiology [address] [facility] [address] Kirstin Echeverria, RT(R) Radiology XR 08/29/2024 8:15 AM EDT Office Visit Orthopaedics [address] [facility] [place] [place] [address] Kev Ferrell MD Right shoulder pain, unspecified chronicity (Primary Dx); Closed nondisplaced fracture of acromial end of right clavicle, initial encounter 08/29/2024 7:56 AM EDT - 08/29/2024 11:59 PM EDT Hospital Encounter Radiology [address] [facility] [place] [address] Right shoulder pain, unspecified chronicity [M25.511] Discharge Disposition: Home 08/29/2024 Radiology Rad[facility] [address] [facility] [place] [address] Leann Morris, RT(R) Radiology XR 08/26/2024 1:30 PM EDT Office Visit Colorectal Surgery [address] [facility] [address] [place] [address] Kristal Jeong, LINTING MACHINE OPERATOR.PIN DRAFTING MACHINE TENDER Obstructive defecation (HCC) (Primary Dx); High-tone pelvic floor dysfunction; Constipation due to outlet dysfunction 08/26/2024 1:00 PM EDT Procedure Colorectal Surgery [address] [place] [id number] Kristal Jeong APRN.PIN DRAFTING MACHINE TENDER Manometry from Last 3 Months Immunizations Immunization Administration Dates Next Due influenza [...] is lower risk 9 06/23/2022 Data from: https://www.neighborhoodatlas.medicine.[facility].edu/. Last address used for calculation [address] [...] 11:45 AM EDT Office Visit Orthopaedics [address] [place] [address] Kev Ferrell MD [address] [place] [address] 1 month follow up -right shoulder Health Maintenance Due Date Last Done Comments Annual PCP Team Chronic Dise ase Visit 1966 Anxiety Screening 1966 Depression Screening 1966 Hepatitis C Screening 1966 Advance Directive Discussion 02/13/2024 Medicare Advantage Annual Wellness Visit 02/13/2024 LDL Cholesterol 04/06/2024 04/06/2023 Influenza Vaccine (#1) 2024 , 11/09/2022, 11/17/2021, Additional history exists Diabetes Screening 07/04/2026 07/05/2023, 0 04/12/2021, 04/12/2021, Additional history exists DTaP,Tdap,Td Vaccine (3 - Td or Tdap) 09/09/2031 09/08/2021, 07/04/2018, 09/02/2004 Shingrix Vaccine Completed 11/16/2020, 01/2021, 07/04/2018, Additional history exists Pneumococcal Vaccine: 50+ Completed 2021, 11/12/2017, 06/25/2017, Additional history exists Colonoscopy Discontinued 10/12/2021, 08/12, 10/12/2017, Additional history exists Colorectal Cancer Screening Discontinued RSV Vaccine Completed 02/20/2024 CT Colonography Discontinued Cologuard (FIT-DNA) Discontinued Fecal Occult Blood Discontinued Sigmoidoscopy Discontinued Medical Devices Implanted Type Area Director Of Math Device Identifier Shelf Expiration Date Model / Serial / Lot Yyb-Ps-I-Kind Implant - [id number] Implanted:Qty: 1 on 05/29/2017 at [facility] Implant N/A: Spine - Cervical [employer] 1102.3011 / / Description:11mm in line pito te Inz-Dd-E-Kind Implant - [id number] Implanted:Qty: 1 on 05/29/2017 at [facility] Implant N/A: Spine - Cervical [employer] 1102.7000 / / Description:hinge plate Prolong Rev Shoulder Prosthesis Cup 36mm +3mm Retentive Thick Implanted:Qty: 1 on 05/02/2021 at [facility] Implant Right: Bone - Shoulder [employer] 02/22/2025 [id number] / / [id number] Stem Hum 83mm 14mm Cmprh Por - [id number] Implanted:Qty: 1 on 05/02/2021 at [facility] Implant Right: Bone - Shoulder [employer] 10/15/2030 [id number] / / [id number] Rev Shoulder Prosthesis Body 40mm +5mm Thick +0mm Taper Offset Implanted:Qty: 1 on 05/02/2021 at [facility] Implant Right: Bone - Shoulder [employer] 01/11/2029 [id number] / / [id number] Insert Triathlon 7 10mm Tibial Bearing Condylar Stabilize Sterile Knee - [id number] Implanted: 019 at [facility] (Quantity not on file) Joint - Knee Right: Bone - Knee [facility] 12/26/2022 5531-G-710 -[id number] / / [id number] Baseplate Triathlon Tritanium 7 Tibial Knee - [id number] Implanted: 019 at [facility] (Quantity not on file) Joint - Knee Right: Bone - Knee [facility] 07/23/2023 5536-B-700 / / [id number] Component Tritanium 38mm Metal 11mm Patellar Asymmetric Knee - [id number] Implanted: 019 at [facility] (Quantity not on file) Joint - Knee Right: Bone - Knee [facility] 06/06/2023 5552-L-381 / / [id number] Component Triathlon 7 Pa Femoral Cruciate Retain Bead Knee Right - [id number] Implanted: 019 at [facility] (Quantity not on file) Joint - Knee Right: Bone - Knee [facility] 07/27/2023 5517-F-702 / / [id number] Component Comprehensive Versa-Dial 36mm Standard Glenoid Glenosphere - [id number] Implanted:Qty: 1 on 05/02/2021 at [facility] Joint - Shoulder Right: Bone - Shoulder [employer] 03/03/2031 [id number] / / [id number] Lead Interstim 1.27mm 3mm Space Straight 33cm Neurostimulator Inline - [id number] Implanted:Qty: 1 on 07/06/2017 at [facility] Lead N/A: Spine - Lumbar [employer] 11/05/2019 [id number] / / [id number] Lead Interstim 1.27mm 3mm Space Straight 33cm Neurostimulator Inline - [id number] Implanted:Qty: 1 on 07/20/2017 at [facility] Lead N/A: Spine - Sacrum [employer] [id number] / / [id number] Plate Canopy 9mm Bone Shelf Inline Spine - [id number] Implanted:Qty: 2 on 05/29/2017 at [facility] Plate N/A: Spine - Cervical [employer] 1102.3009 / / Baseplate Comprehensive 25mm Mini Glenoid Taper Adapter Reverse Shoulder - [id number] Implanted:Qty: 1 on 05/02/2021 at [facility] Plate Right: Bone - Shoulder [employer] 01/26/2030 [id number] / / [id number] Screw 2.2mm 6mm Bone Self Drilling - [id number] Implanted:Qty: 9 on 05/29/2017 at [facility] Screw N/A: Spine - Cervical [employer] 136.406 / / Screw 2.2mm Relieve Slfdrl 5mm - [id number] Implanted:Qty: 9 on 05/29/2017 at [facility] Screw N/A: Spine - Cervical [employer] 136.405 / / Screw Comprehensive 4.75mm 3.5mm Titanium 15mm Bone Fix Angle Lock - [id number] Implanted:Qty: 1 on 05/02/2021 at [facility] Screw Right: Bone - Shoulder [employer] 03/20/2031 [id number] / / [id number] Screw Comprehensive 3.5mm 30mm Bone Central [employer]agon Insurance Producer 6.5mm Shoulder - [id number] Implanted:Qty: 1 on 05/02/2021 at [facility] Screw Right: Bone - Shoulder [employer] 04/01/2031 [id number] / / [id number] Screw Comprehensive 4.75mm 3.5mm Hexagon 20mm Bone Variable Angle Nonlock - [id number] Implanted:Qty: 1 on 05/02/2021 at [facility] Screw Right: Bone - Shoulder [employer] 02/22/2031 [id number] / / [id number] Screw Comprehensive 3.5mm Hexagon 20mm Bone Fix Angle Lock Reverse 4.75mm - [id number] Implanted:Qty: 1 on 05/02/2021 at [facility] Screw Right: Bone - Shoulder [employer] 03/09/2031 [id number] / / [id number] Screw Comprehensive 3.5mm Hexagon 30mm Bone Fix Angle Lock Reverse 4.75mm - [id number] Implanted:Qty: 1 on 05/02/2021 at [facility] Screw Right: Bone - Shoulder [employer] 03/07/2031 [id number] / / [id number] Procedures Procedure Name Priority Date/Time Associated Diagnosis Comments XR CLAVICLE 2V RIGHT Routine 09/19/2024 9:49 AM EDT Closed nondisplaced fracture of acromial end of right clavicle, initial encounter XR SHOULDER ORTHO 4V AP/TRUE AP/LAT/OUTLET RT Routine 08/29/2024 8:19 AM EDT Right shoulder pain, unspecified chronicity ADULT [place] ANORECTAL MANOMETRY Routine 08/26/2024 Constipation due to outlet dysfunction XR OUTSIDE CD DICOM IMPORT 08/18/2024 PT ED PATIENT INFORMATION 07/27/2024 COMPREHENSIVE METABOLIC PANEL Routine 07/05/2023 10:19 AM EDT 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 Supervisor Core Shop: DEEPIKA Transcribe Date/Time: Sep 19 2024 10:47A Dictated by : MARIO HODGES MD This examination was interpreted and the report reviewed and electronically signed by: MARIO HODGES MD on Sep 19 2024 10:50AM EST Narrative 09/19/2024 10:52 AM EDT * * [...] spine and median sternotomy are again seen. Procedure Note Provider, [facility] [place] - 09/19/2024 * * *Final Report* * [...] spine and median sternotomy are again seen. IMPRESSION IMPRESSION: SUBACUTE DISTAL RIGHT CLAVICLE FRACTURE WITH EARLY HEALING. Supervisor Core Shop: DEEPIKA Transcribe Date/Time: Sep 19 2024 10:47A Dictated by : MARIO HODGES MD This examination was interpreted and the report reviewed and electronically signed by: MARIO HODGES MD on Sep 19 2024 10:50AM EST us Nehemiah Garcia PA-C RAD-PAMA Final Resul t * XR SHOULDER ORTHO 4V AP/TRUE AP/LAT/OUTLET RIGHT (08/29/2024 8:19 AM EDT) Anatomical Region Laterality Modality Shoulder Other 08/29/2024 8:19 AM EDT Impressions 08/29/2024 9:18 AM EDT IMPRESSION: Reverse RIGHT shoulder arthroplasty without hardware complication. Healing nondisplaced distal clavicle fracture. Supervisor Core Shop: DEEPIKA Transcribe Date/Time: Aug 29 2024 9:14A Dictated by : YUAN PATINO DO This examination was interpreted and the report reviewed and electronically signed by: YUAN PATINO DO on Aug 29 2024 9:16AM EST Narrative 08/29/2024 9:18 AM EDT * * [...] with osteophytes. Visualized RIGHT lung is clear. Procedure Note Provider, [facility] [place] - 08/29/2024 * * *Final Report* * [...] with osteophytes. Visualized RIGHT lung is clear. IMPRESSION IMPRESSION: Reverse RIGHT shoulder arthroplasty without hardware complication. Healing nondisplaced distal clavicle fracture. Supervisor Core Shop: DEEPIKA Transcribe Date/Time: Aug 29 2024 9:14A Dictated by : YUAN PATINO DO This examination was interpreted and the report reviewed and electronically signed by: YUAN PATINO DO on Aug 29 2024 9:16AM EST us Kev Ferrell MD RAD-PAMA Final Result * ADULT [place] ANORECTAL MANOMETRY (08/26/2024) Anatomical Region Laterality Modality Other Impressions 08/26/2024 I have reviewed, verified, and confirmed the results of anorectal manometry, rectal sensation, tone and compliance testing and EMG testing. I agree with the impression as written above. Rose Marie Pruett MD Pelvic Floor Colon & Rectal Surgery Narrative 08/26/2024 Reason for testing: constipation and abdominal pain/bloating Ileoanal pouch: No Anorectal Manometry Testing: Strength: Anorectal manometry was performed. Average Pressure Interpretation Rest: 90.0 mmHg This is above normal range. Normal range is 35-50 mmHg. Squeeze: 142.7 mmHg This is above normal range. Normal range is 75 - 100 mmHg. Resting and squeeze pressures well above normal may indicate high pelvic floor tension. There is minimal incremental change between resting and squeeze pressures which can indicate poor pelvic floor movement with squeeze. Sensory: Sensation Volume First sensation : 60 mL / Normal Range: 40-80 mL First urge to defecate: 120 mL / Normal Range: 80-120 mL Maximum tolerable volume: 165 mL / Normal Range: 120-180 mL Recto-anal inhibitory reflex: Yes Balloon expulsion: No This exhibit normal rectal sensation with at least 2/3 sensory tests. A recto-anal inhibitory reflex (RAIR) was present. This is a normal reflex. EMG Recruitment: EMG recruitment was performed. The patient shows a normal increase in activity with squeeze, and a paradoxic increase in activity with valsalva. This indicates abnormal pelvic floor movement, which can be indicative of poor pelvic floor coordination secondary to pelvic floor non-relaxation / dyssynergia. See pelvic floor consultation note for interpretation of test results and treatment plan. Kristal Jeong APRN.PIN DRAFTING MACHINE TENDER us Kristal Jeong APRN.NAVEEN DIGESTIVE DISEASE Sandra l Result * OT-XR SHOULDER RT MIN 2V IMPORT (08/18/2024) Anatomical Region Laterality Modality Other 08/18/2024 Narrative 08/30/2024 5:59 PM EDT Images were obtained outside of [facility] Procedure Note Provider, [facility] [place] - 08/30/2024 Images were obtained outside of [facility] Cc Provider RADIOLOGY Final Result * PT ED PATIENT INFORMATION (07/27/2024) 07/27/2024 Narrative SUSU - 08/27/2024 Provider ANANYA your patient FAHAD PATEL has not started their Susu program, time has . Susu program: PATIENT SAFETY INSTRUCTIONS FOR HEALTHCARE SETTINGS us Kristal Jeong LINTING MACHINE OPERATOR.PIN DRAFTING MACHINE TENDER SUSU Final Result SUS[facility] * (ABNORMAL) COMPREHENSIVE METABOLIC PANEL (07/05/2023 10:19 AM EDT) Protein, Total 6.5 6.3 - 8.0 g/dL 07/05/2023 4:56 PM EDT [facility] Albumin 4.1 3.9 - 4.9 g/dL 07/05/2023 4:56 PM EDT [facility] Calcium, Total 9.2 8.5 - 10.2 mg/dL 07/05/2023 4:56 PM EDT [facility] Bilirubin, Total 0.8 0.2 - 1.3 mg/dL 07/05/2023 4:56 PM EDT [facility] Alkaline Phosphatase 66 38 - 113 U/L 07/05/2023 4:56 PM EDT [facility] AST 14 14 - 40 U/L 07/05/2023 4:56 PM EDT [facility] ALT 18 10 - 54 U/L 07/05/2023 4:56 PM EDT [facility] Glucose 119(H) 74 - 99 mg/dL 07/05/2023 4:56 PM EDT [facility] Comment: The [place] Diabetes Association (ADA) provides guidance for cutoff [...] Standards of Medical Care in Diabetes 2016, [place] Diabetes Association. Diabetes Care. 2016.39(Suppl 1). BUN 16 9 - 24 mg/dL 07/05/2023 4:56 PM EDT [facility] Creatinine 0.74 0.73 - 1.22 mg/dL 07/05/2023 4:56 PM EDT [facility] Sodium 142 136 - 144 mmol/L 07/05/2023 4:56 PM EDT [facility] Potassium 4.1 3.7 - 5.1 mmol/L 07/05/2023 4:56 PM EDT [facility] Chloride 105 97 - 105 mmol/L 07/05/2023 4:56 PM EDT [facility] CO2 28 22 - 30 mmol/L 07/05/2023 4:56 PM EDT [facility] Anion Gap 9 9 - 18 mmol/L 07/05/2023 4:56 PM EDT [facility] Estimated Glomerular Filtration Rate 95 >=60 mL/min/1.7 3m 07/05/2023 4:56 PM EDT [facility] Comment:Estimated Glomerular Filtration Rate (eGFR) is [...] us Dianne Roldan MD LABORATORY Final Result [facility] [address] [place] [address] [address] [place] [address], from Last 3 Months or Most Recently Relevant to Health Maintenance Insurance [employer] Address: [facility] [address] [place] [address] MMO MEDADVANTAGE HMO Advance Directives Documents on File Type Date Recorded Patient Patternmaker Apprentice Wood Expl anation Advance Directive(s) 05/23/2017 1:09 PM Care Teams Kindergarten Paraprofessional Relationship Specialty Start Date End Date Stanton Velasco II, MD [address] [address] PCP - General Internal Medicine 04/01/21 Hossein Tran DO [address] [place] [phone] Referring Ophthalmology 08/28/16 David Carrillo MD [address] [place] [phone] Referring Urology 10/06/16
--- OUTSIDE RECORDS SUMMARY | 2024-10-20 10:15 | XMS_ITS | Encounter Summary ---
Author Organization [facility] Address [address] [place] [address] Care Team Providers Care Dental Ceramist Name Role Phone Stanton Velasco MD Unavailable [phone] Stanton Velasco MD Primary Care Provider [phone] Emelyn Hall RN Unavailable [phone] Stanton Velasco MD Unavailable [phone] Alvina Sanchez LPN Unavailable Encounter Details [...] often do you attend chur ch or zoroastrianism services? 1 to 4 times per year [...] Recorded Patient Health Questionnaire-2 Score 0 05/23/2023 [facility] - Occupational Stress Questionnaire Answer Date Recorded [...] 10/24/2024 9:45 AM EDT Office Visit [facility] Jef Strickland [address] [facility] [address] [place] [address] Stanton Velasco MD [address] [facility] 110 [place] [address] documented as of this encounter Procedures Procedure Name Priority Date/Time Associated Diagnosis Comments NM ROSENDA PERF SPECT REST STR 06/28/2023 3:30 PM EDT documented in this encounter Results * NM ROSENDA PERF SPECT REST STR (06/28/2023 3:30 PM EDT) Anatomical Region Laterality Modality Other 06/28/2023 3:30 PM EDT Narrative 06/28/2023 3:31 PM EDT The [address] [address] Nuclear Medicine Report Signed Patient: Chelsea Sotelo MR#: [id number] : 1950 Acct:[id number] Age/Sex: 72 / M ADM Date: 06/27/23 Loc: [place] Attending Dr: Octavio Mcmillan M.D. Ordering Physician: Octavio Mcmillan M.D. Date of Service: 06/27/23 Procedure(s): NM rosenda perf SPECT rest str Accession Number(s): [id number] cc: STANTON VELASCO ; Octavio Mcmillan M.D. Patient Name: CHELSEA SOTELO MR#: [id number] : 1950 Exam Date: 06/27/2023 Ordering Doctor: [...] Signed By: 06/28/23 1531 DD/ 1530 TD/TT: Order Packer Or Packager: Procedure Note Radiology, Radiologist, - 06/28/2023 [facility] [address] [place] [address] Nuclear Medicine Report Signed Patient: Chelsea Sotelo AMR#: [id number] : 1950cct:[id number] Age/Sex: 72 / MADM Date: 06/27/23 Loc: [place] Attending Dr: Octavio Mcmillan M.D. Ordering Physician: Octavio Mcmillan M.D. Date of Service: 06/27/23 Procedure(s): NM rosenda perf SPECT rest str Accession Number(s): [id number] cc: STANTON VELASCO ; Octavio Mcmillan M.D. Patient Name: CHELSEA SOTELO MR#: [id number] : 1950 Exam Date: 06/27/2023 Ordering Doctor: [...] M.D. Signed By:06/28/23 1531 DD/ 1530 TD/TT: Order Packer Or Packager: us Generic External Data Provider [facility] Final Result documented in this encounter Visit Diagnoses Not on filedocumented in this encounter Additional Health Concerns Assessment Noted Time PHQ-9 Depression Total Score: 0 05/23/19 24 9:00 AM EDT documented as of this encounter Care Teams Dental Ceramist Relationship Specialty Start Date End Date Stanton Velasco MD [address] [facility] [address] [place] [address] PCP - Devoted 02/12/21 02/12/24 Stanton Velasco MD [address] [facility] [address] [place] [address] PCP - General Internal Medicine 08/18/22 Stanton Velasco MD [address] [address] PCP - Medical [place] 02/13/2402/11 Emelyn Hall, LEATHA [address] [place] [address] [facility] 03/21/24 05/06/24 Alvina Sanchez LPN [address] [facility] [address] [place] [address] 05/06/24 documented as of this encounter
--- OUTSIDE RECORDS SUMMARY | 2024-10-20 10:15 | XMS_ITS | Encounter Summary ---
Author Organization [facility] Address [address] [place] [address] Care Team Providers Care Telecommunications Linesworker Name Role Phone Stanton Velasco MD Primary Care Provider [phone] Stanton Velasco MD Unavailable [phone] Alvina Sanchez LPN Unavailable Encounter Details Date Type Department Care Team (Latest Contact Info) Description 10/17/2024 Travel Social History Tobacco Use Types Packs/Day Years [...] often do you attend chur ch or restoration services? 1 to 4 times per year 10/20/2022 Do you belong to any clubs o r organizations such as confucianist groups, unions, fraternal or athletic groups, or [...] Patient Health Questionnaire-2 Score 0 04/16/2024 [facility] - Occupational [...] [place] Strickland [address] [place] [address] [place] [address] Stanton Velasco MD [address] [place] [address] [place] [address] documented as of this encounter Visit Diagnoses Not on filedocumented in this encounter Additional Health Concerns Assessment Noted Time PHQ-9 Depression Total Score: 0 05/23/19 24 9:00 AM EDT documented as of this encounter Care Teams Telecommunications Linesworker Relationship Specialty Start Date End Date Stanton Velasco MD [address] [place] [address] [place] [address] PCP - General Internal Medicine 08/18/22 Stanton Velasco MD [address] [place] [address] [place] [address] PCP - Medical [place] 02/13/2402/11 Alvina Sanchez LPN [address] [place] [address] [place] [address] 05/06/24 documented as of this encounter
--- OUTSIDE RECORDS SUMMARY | 2024-10-20 10:15 | XMS_ITS | Encounter Summary ---
Author Organization [facility] Address [address] [facility] [place] [address] Care Team Providers Care Environmental Health And Safety Manager Name Role Phone Stanton Velasco MD Unavailable [phone] Stanton Velasco MD Primary Care Provider [phone] Emelyn Hall RN Unavailable [phone] Stanton Velasco MD Unavailable [phone] Alvina Sanchez LPN Unavailable Encounter Details Date Type Department Care Team (Late st Contact Info) Description 04/04/2023 Orders Only [facility] [place] [facility] [place] [address] [place] [address] Unallocated, Noms Provider, [address] [place], [place] [id number] Social History Tobacco Use Types Packs/Day Years [...] How often do you attend chur or jehovah's witness services? 1 to 4 times per year [...] and heating? Not hard at all 10/20/2022 [facility] of Occupat ional Health [...] Visit NOMS [place] Strickland [address] [facility] 110 [place] [address] Stanton Velasco MD [address] [facility] 110 [place] [address] documented as of this encounter Procedures Procedure [...] on filedocumented in this encounter Care Teams Environmental Health And Safety Manager Relationship Specialty Start Date End Date Stanton Velasco MD [address] [facility] 110 [place] [address] PCP - Devoted 02/12/21 02/12/24 Stanton Velasco MD [address] [place] [address] [place] [address] PCP - General Internal Medicine 08/18/22 Stanton Velasco MD [address] [place] [address] [place] [address] PCP - Medical [place] 02/13/2402/11 Emelyn Hall, RN [address] [place] [address] Clinical [facility]ocate Family Medicine 03/21/24 05/06/24 Alvina Sanchez LPN [address] [place] [address] 05/06/24 documented as of this encounter
--- OUTSIDE RECORDS SUMMARY | 2024-10-20 10:15 | XMS_ITS | Encounter Summary ---
Author Organization [facility] Address [address] [facility] [place] [address] Care Team Providers Care Validation Technician Name Role Phone Stanton Velasco MD Primary Care Provider [phone] Emelyn Hall RN Unavailable [phone] Stanton Velasco MD Unavailable [phone] Alvina Sanchez LPN Unavailable Encounter Details Date Type Department Care Team (Late st Contact Info) Description 02/18/2024 Abstract [facility] [place] [facility] 112 [facility] 110 [place] [address] Stanton Velasco MD 112 [facility] 110 [place], [place] [address] Social History Tobacco Use Types Packs/Day Years [...] often do you attend chur ch or islam services? 1 to 4 times per year 10/20/2022 Do you belong to any clubs o r organizations such as mosque groups, unions, fraternal or athletic groups, or [...] Recorded Patient Health Questionnaire-2 Score 0 02/15/2024 [facility] of Occupat ional Health - Occupational [...] Visit NOMS [place] Strickland [address] [facility] 110 [place] [address] Stanton Velasco MD [address] [facility] 110 [place] [address] documented as of this encounter Visit Diagnoses Not on filedocumented in this encounter Additional Health Concerns Assessment Noted Time PHQ-9 Depression Total Score: 0 05/23/19 24 9:00 AM EDT documented as of this encounter Care Teams Validation Technician Relationship Specialty Start Date End Date Stanton Velasco MD [address] [facility] 110 [place] [address] PCP - General Internal Medicine 08/18/22 Stanton Velasco MD [address] [facility] 110 [place] [address] PCP - Medical [place] 02/13/2402/11 Emelyn Hall, RN [address] [place] [address] Clinical Advocate Family Medicine 03/21/24 05/06/24 Alvina Sanchez LPN [address] [facility] 110 [place] [address] 05/06/24 documented as of this encounter
--- OUTSIDE RECORDS SUMMARY | 2024-10-20 10:15 | XMS_ITS | Encounter Summary ---
Author Organization [facility] Address [address] [facility] [place] [address] Care Team Providers Care Development Technical Lead Name Role Phone Stanton Velasco MD Primary Care Provider [phone] Emelyn Hall RN Unavailable [phone] Stanton Velasco MD Unavailable [phone] Alvina Sanchez LPN Unavailable Encounter Details Date Type Department Care Team (Late st Contact Info) Description 02/27/2024 Abstract [facility] [place] [facility] 112 [facility] 110 [place] [address] Stanton Velasco MD 112 [facility] 110 [place], [place] [id number] Social History Tobacco Use Types Packs/Day Years [...] often do you attend chur ch or latter-day services? 1 to 4 times per year 10/20/2022 Do you belong to any clubs o r organizations such as muslim groups, unions, fraternal or athletic groups, or [...] Recorded Patient Health Questionnaire-2 Score 0 02/15/2024 [facility] of Occupat ional Health - Occupational [...] Visit NOMS [place] Strickland [address] [facility] 110 [place] [address] Stanton Velasco MD [address] [facility] 110 [place] [address] documented as of this encounter Visit Diagnoses Not on filedocumented in this encounter Additional Health Concerns Assessment Noted Time PHQ-9 Depression Total Score: 0 05/23/19 24 9:00 AM EDT documented as of this encounter Care Teams Development Technical Lead Relationship Specialty Start Date End Date Stanton Velasco MD [address] [facility] 110 [place] [address] PCP - General Internal Medicine 08/18/22 Stanton Velasco MD [address] [facility] 110 [place] [address] PCP - Medical [place] 02/13/2402/11 Emelyn Hall, RN [address] [place] [address] Clinical Advocate Family Medicine 03/21/24 05/06/24 Alvina Sanchez LPN [address] [facility] 110 [place] [address] 05/06/24 documented as of this encounter
--- OUTSIDE RECORDS SUMMARY | 2024-10-20 10:15 | XMS_ITS | Encounter Summary ---
Author Organization [facility] Address [address] [place] [address] Care Team Providers Care Park Recreation Manager Name Role Phone Stanton Velasco MD Primary Care Provider [phone] Stanton Velasco MD Unavailable [phone] Alvina Sanchez LPN Unavailable Encounter Details Date Type Department Care Team (Late st Contact Info) Description 10/09/2024 Patient Outreach [facility] [address] [place] [address] Alvina Sanchez LPN [address] [place] 110 [place] [address] Social History Tobacco Use Types [...] How often do you attend chur or baptist services? 1 to 4 times per year 10/20/2022 Do you belong to any clubs o r organizations such as advent groups, unions, fraternal or athletic groups, or [...] Recorded Patient Health Questionnaire-2 Score 0 04/16/2024 [facility] of Occupat ional Health - [...] of this encounter Progress Notes * Alvina Sanchez, ARACELI - 10/09/2024 2:18 PM EDT Spoke to pt for outreach. Pt states he doing ok other than still has a lot of difficulty with Bowelmovements. He states that he has to work really hard to get them out and even with liquid stools hehas to do the same. He shares he would like to know if PCP will give him a new referral to see Dr. Iker Wilkins a income tax analyst through [facility]. He feels the one he sees now in [place] is not helping him and when he calls there office they tell him they can't help him. He does she he started hm on Lactulose and Ibsrela which he has been taking. Pt also voices that he gets hot inside. He shares that he has stated this before at appt with PCP but it was a long time ago and it has not changed. I ask pt if he would like to schedule an appt to speak to the PCP about this issue. Pt states yesand we schedule for 10/17 documented in this encounter Plan of Treatment Upcoming Encounters Date Type Department Care Team (Late st Contact Info) Description 10/24/2024 9:45 AM EDT Office Visit [facility] [place] Strickland [address] [facility] 110 [place] [address] Stanton Velasco MD [address] [facility] 110 [place] [address] documented as of this encounter Visit Diagnoses Diagnosis Chronic obstructive pulmonary disease, unspecified COPD type (HCC)- Primary Constipation, unspecified constipation type documented in this encounter Additional Health Concerns Assessment Noted Time PHQ-9 Depression Total Score: 0 05/23/19 24 9:00 AM EDT documented as of this encounter Care Teams Park Recreation Manager Relationship Specialty Start Date End Date Stanton Velasco MD [address] [facility] 110 [place] [address] PCP - General Internal Medicine 08/18/22 Stanton Velasco MD [address] [facility] 110 [place] [address] PCP - Medical [place] 02/13/2402/11 Alvina Sanchez LPN [address] [facility] 110 [place] [address] 05/06/24 documented as of this encounter
--- OUTSIDE RECORDS SUMMARY | 2024-10-20 10:15 | XMS_ITS | Encounter Summary ---
Author Organization [facility] Address [address] [facility] [place] [address] Care Team Providers Care Safety Security Officer Name Role Phone Stanton Velasco MD Unavailable [phone] Stanton Velasco MD Primary Care Provider [phone] Emelyn Hall RN Unavailable [phone] Stanton Velasco MD Unavailable [phone] Alvina Sanchez LPN Unavailable Encounter Details Date Type Department Care Team (Late Contact Info) Description 08/15/2022 Abstract [facility] [address] [facility] [address] [place] [address] Toya Santos MD [address] [facility] [address] [place] [address] Social History Tobacco Use Types Packs/Day Years [...] Description 10/24/2024 9:45 AM EDT Office Visit [facility]eflu[facility] Strickland [address] [facility] 110 [place] [address] Stanton Velasco MD [address] [facility] 110 [place] [address] documented as of this encounter Visit Diagnoses Not on filedocumented in this encounter Care Teams Safety Security Officer Relationship Specialty Start Date End Date Stanton Velasco MD [address] [facility] 110 [place] [address] PCP - Devoted 02/12/21 02/12/24 Stanton Velasco MD [address] [facility] 110 [place] [address] PCP - General Internal Medicine 08/18/22 Stanton Velasco MD [address] [address] PCP - Medical [place] 02/13/2402/11 Emelyn Hall, RN [address] [place], [place] [address] Clinical [facility]ocate Family Medicine 03/21/24 05/06/24 Alvina Sanchez LPN [address] [address] 05/06/24 documented as of this encounter
--- OUTSIDE RECORDS SUMMARY | 2024-10-20 10:15 | XMS_ITS | Encounter Summary ---
Author Organization [facility] Address [address] [facility] [place] [address] Care Team Providers Care Tool Technician Name Role Phone tSanton Velasco MD Primary Care Provider [phone] Emelyn Hall RN Unavailable [phone] Stanton Velasco MD Unavailable [phone] Alvina Sanchez LPN Unavailable Encounter Details Date Type Department Care Team (Late st Contact Info) Description 02/27/2024 Abstract [facility] [place] [facility] 112 [facility] 110 [place] [address] Stanton Velasco MD 112 [facility] 110 [place], [place] [phone] Social History Tobacco Use Types Packs/Day Years [...] often do you attend chur ch or anabaptist services? 1 to 4 times per year 10/20/2022 Do you belong to any clubs o r organizations such as sabianism groups, unions, fraternal or athletic groups, or [...] Recorded Patient Health Questionnaire-2 Score 0 02/15/2024 [facility] of Occupat ional Health - Occupational [...] Visit NOMS [place] Strickland [address] [facility] 110 [place] [address] Stanton Velasco MD [address] [facility] 110 [place] [address] documented as of this encounter Visit Diagnoses Not on filedocumented in this encounter Additional Health Concerns Assessment Noted Time PHQ-9 Depression Total Score: 0 05/23/19 24 9:00 AM EDT documented as of this encounter Care Teams Tool Technician Relationship Specialty Start Date End Date Stanton Velasco MD [address] [facility] 110 [place] [address] PCP - General Internal Medicine 08/18/22 Stanton Velasco MD [address] [facility] 110 [place] [address] PCP - Medical [place] 02/13/2402/11 Emelyn Hall, RN [address] [place] [address] Clinical Advocate Family Medicine 03/21/24 05/06/24 Alvina Sanchez LPN [address] [facility] 110 [place] [address] 05/06/24 documented as of this encounter
--- OUTSIDE RECORDS SUMMARY | 2024-10-20 10:15 | XMS_ITS | Encounter Summary ---
Author Organization [facility] Address [address] [place] [address] Care Team Providers Care Miller Kiln Dried Salt Name Role Phone Hossein Tran DO Unavailable [phone] David Carrillo MD Unavailable [phone] Rod FATIMA MD, Stanton Payne Primary Care Provider [phone] Source Comments In the event this information is protected by the Federal Confidentiality of Alcohol and Drug AbusePatient Records regulations: The Federal rules restrict any use of the information to criminally investigate or prosecute any alcohol or drug abuse patient.[facility] Reason for Visit * Reason Comments Patient Update Encounter Details Date Type Department Care Team (Late st Contact Info) Description 10/09/2023 Telephone Urology [address] [place] [address] Dianne Roldan MD [address] [place] [address] Patient Update Social History Tobacco [...] is lower risk 9 06/23/2022 Data from: https://www.neighborhoodatlas.medicine.[facility]/. Last address used for calculation [address] [...] 11:45 AM EDT Office Visit Orthopaedics [address] [facility] [place] [address] Kev Ferrell MD [address] [facility] [address] [place] [address] 1 month follow up -right shoulder documented as of this encounter Visit Diagnoses Not on filedocumented in this encounter Care Teams Miller Kiln Dried Salt Relationship Specialty Start Date End Date Stanton Velasco II, MD [address] [place] [address] PCP - General Internal Medicine 04/01/21 Hossein Tran DO [address] [place] [address] Referring Ophthalmology 08/28/16 David Carrillo MD [address] [place] [address] Referring Urology 10/06/16 documented as of this encounter
--- OUTSIDE RECORDS SUMMARY | 2024-10-20 10:15 | XMS_ITS ---
Author Organization [facility] Address [address] [place] [address] Care Team Providers Care Wastewater Analyst Name Role Phone Stanton Velasco MD Primary Care Provider [phone] Stanton Velasco MD Unavailable [phone] Alvina Sanchez LPN Unavailable Chronic Care Management (CCM) Status:Enrolled (Active) Start date:06/29/2022 Enrollment date:06/29/2022 Overview 01/19/23, 10:39 AM - Venitasunday, ARACELI- Patient gives verbal consent to be enrolled in CCM Program and understands there could be a bill for this service. Case Team Name Relationship Phone Alvina Sanchez LPN(Responsible Staff) [phone] Continued Care and Services Coordination
--- OUTSIDE RECORDS SUMMARY | 2024-10-20 10:15 | XMS_ITS | Encounter Summary ---
Author Organization [facility] Address [address] [facility] [place] [address] Care Team Providers Care Security Operations Specialist Name Role Phone Stanton Velasco MD Unavailable [phone] Stanton Velasco MD Primary Care Provider [phone] Emelyn Hall RN Unavailable [phone] Stanton Velasco MD Unavailable [phone] Alvina Sanchez LPN Unavailable Encounter Details Date Type Department Care Team (Late st Contact Info) Description 01/01/2023 Abstract [facility] [place] [facility] [address] [facility] 110 [place] [address] Stanton Velasco MD 112 [facility] 110 [place], [place] [address] Social History Tobacco Use Types Packs/Day Years [...] any clubs o r organizations such as protestant groups, unions, fraternal or athletic groups, or [...] and heating? Not hard at all 10/20/2022 [facility] of Occupat ional Health - [...] Visit NOMS [place] Strickland [address] [facility] [address] [place] [address] Stanton Velasco MD [address] [facility] 110 [place] [address] documented as of this encounter Visit Diagnoses Not on filedocumented in this encounter Care Teams Security Operations Specialist Relationship Specialty Start Date End Date Stanton Velasco MD [address] [place] [address] [place] [address] PCP - Devoted 02/12/21 02/12/24 Stanton Velasco MD [address] [facility] 110 [place] [address] PCP - General Internal Medicine 08/18/22 Stanton Velasco MD [address] [facility] 110 [place] [address] PCP - Medical [place] 02/13/2402/11 Emelyn Hall, RN [address] [place] [address] Clinical Advocate Family Medicine 03/21/24 05/06/24 Alvina Sanchez LPN [address] [facility] 110 [place] [address] 05/06/24 documented as of this encounter
--- OUTSIDE RECORDS SUMMARY | 2024-10-20 10:15 | XMS_ITS | Encounter Summary ---
Author Organization [facility] Address [address] [facility] [place] [address] Care Team Providers Care Administrative Underwriter Name Role Phone Stanton Velasco MD Unavailable [phone] Stanton Velasco MD Primary Care Provider [phone] Emelyn Hall RN Unavailable [phone] Stanton Velasco MD Unavailable [phone] Alvina Sanchez LPN Unavailable Encounter Details Date Type Department Care Team (Late st Contact Info) Description 12/20/2023 Abstract [facility] [place] [facility] 112 [facility] 110 [place] [address] Stanton Velasco MD 112 [facility] 110 [place], [place] [address] Social History Tobacco Use Types Packs/Day Years [...] often do you attend chur ch or religion services? 1 to 4 times per year [...] Recorded Patient Health Questionnaire-2 Score 0 05/23/2023 [facility] of Occupat ional Health - Occupational Stress [...] Visit NOMS [place] Strickland [address] [facility] 110 [place] [address] Stanton Velasco MD [address] [facility] 110 [place] [address] documented as of this encounter Visit Diagnoses Not on filedocumented in this encounter Additional Health Concerns Assessment Noted Time PHQ-9 Depression Total Score: 0 05/23/19 24 9:00 AM EDT documented as of this encounter Care Teams Administrative Underwriter Relationship Specialty Start Date End Date Stanton Velasco MD [address] [place] [address] PCP - Devoted 02/12/21 02/12/24 Stanton Velasco MD [address] [place] [address] [place] [address] PCP - General Internal Medicine 08/18/22 Stanton Velasco MD [address] [address] [place] [address] PCP - Medical [place] 02/13/2402/11 Emelyn Hall, RN [address] [place] [address] Clinical [facility]ocate Family Medicine 03/21/24 05/06/24 Alvina Sanchez LPN [address] [place] [address] 05/06/24 documented as of this encounter
--- OUTSIDE RECORDS SUMMARY | 2024-10-20 10:15 | XMS_ITS | Encounter Summary ---
Author Organization [facility] Address [address] [facility] [place] [address] Care Team Providers Care Press Box Custodian Name Role Phone Stanton Velasco MD Unavailable [phone] Stanton Velasco MD Primary Care Provider [phone] Emelyn Hall RN Unavailable [phone] Stanton Velasco MD Unavailable [phone] Alvina Sanchez LPN Unavailable Encounter Details Date Type Department Care Team (Late st Contact Info) Description 10/24/2023 Abstract [facility] [place] [facility] 112 [facility] 110 [place] [address] Stanton Velasco MD 112 [facility] 110 [place], [place] [id number] Social History Tobacco Use Types Packs/Day Years [...] Recorded Patient Health Questionnaire-2 Score 0 05/23/2023 [facility] of Occupat ional Health - Occupational Stress [...] Visit NOMS [place] Strickland [address] [facility] 110 [place] [address] Stanton Velasco MD [address] [facility] 110 [place] [address] documented as of this encounter Visit Diagnoses Not on filedocumented in this encounter Additional Health Concerns Assessment Noted Time PHQ-9 Depression Total Score: 0 05/23/19 24 9:00 AM EDT documented as of this encounter Care Teams Press Box Custodian Relationship Specialty Start Date End Date Stanton Velasco MD [address] [place] [address] PCP - Devoted 02/12/21 02/12/24 Stanton Velasco MD [address] [place] [address] [place] [address] PCP - General Internal Medicine 08/18/22 Stanton Velasco MD [address] [place] [address] [place] [address] PCP - Medical [place] 02/13/2402/11 Emelyn Hall, RN [address] [place] [address] Clinical [facility] Family [facility] 03/21/24 05/06/24 Alvina Sanchez LPN [address] [place] [address] 05/06/24 documented as of this encounter
--- OUTSIDE RECORDS SUMMARY | 2024-10-20 10:15 | XMS_ITS | Encounter Summary ---
Author Organization [facility] Address [address] [facility] [place] [address] Care Team Providers Care Manager Supply Chain Name Role Phone Stanton Velasco MD Unavailable [phone] Stanton Velasco MD Primary Care Provider [phone] Emelyn Hall RN Unavailable [phone] Stanton Velasco MD Unavailable [phone] Alvina Sanchez LPN Unavailable Encounter Details Date Type Department Care Team (Late st Contact Info) Description 10/01/2023 Abstract [facility] [place] [facility] [address] [facility] 110 [place] [id number] Stanton Velasco MD [address] [facility] 110 [place], [place] [id number] Social History Tobacco Use Types Packs/Day Years [...] How often do you attend chur or amish services? 1 to 4 times [...] Patient Health Questionnaire-2 Score 0 05/23/2023 [facility] - [...] place to sleep or slept in a long-term (including now)? No 10/20/2022 Sex and Gender [...] [place] [address] [place] [address] [place] [address] Stanton Velasco MD [address] [place] [address] [place] [address] documented as of this encounter Visit Diagnoses Not on filedocumented in this encounter Additional Health Concerns Assessment Noted Time PHQ-9 Depression Total Score: 0 05/23/19 24 9:00 AM EDT documented as of this encounter Care Teams Manager Supply Chain Relationship Specialty Start Date End Date Stanton Velasco MD [address] [place] [address] [place] [address] PCP - Devoted 02/12/21 02/12/24 Stanton Velasco MD [address] [facility] 110 [place] [address] PCP - General Internal Medicine 08/18/22 Stanton Velasco MD [address] [facility] 110 [place] [address] PCP - Medical [facility] 02/13/2402/11 Emelyn Hall, LEATHA [address] [place] [address] [facility] 03/21/24 05/06/24 Alvina Sanchez LPN [address] [place] [address] 05/06/24 documented as of this encounter
--- OUTSIDE RECORDS SUMMARY | 2024-10-20 10:15 | XMS_ITS | Encounter Summary ---
Author Organization [facility] Address [address] [facility] [place] [address] Care Team Providers Care Larry Operator Name Role Phone Stanton Velasco MD Unavailable [phone] Stanton Velasco MD Primary Care Provider [phone] Emelyn Hall RN Unavailable [phone] Stanton Velasco MD Unavailable [phone] Alvina Sanchez LPN Unavailable Encounter Details Date Type Department Care Team (Late st Contact Info) Description 04/26/2023 Abstract [facility] [place] [facility] [address] [facility] 110 [place] [id number] Stanton Velasco MD [address] [facility] 110 [place], [place] [id number] Social History Tobacco Use Types Packs/Day Years [...] How often do you attend chur or evangelical services? 1 to 4 times per year [...] and heating? Not hard at all 10/20/2022 [facility] - Occupational Stress [...] Visit [facility] [place] [address] [facility] [address] [place] [address] Stanton Velasco MD [address] [facility] 110 [place] [address] documented as of this encounter Visit Diagnoses Not on filedocumented in this encounter Care Teams Larry Operator Relationship Specialty Start Date End Date Stanton Velasco MD [address] [place] [address] PCP - [facility] 02/12/21 02/12/24 Stanton Velasco MD [address] [facility] [address] [place] [address] PCP - General Internal Medicine 08/18/22 Stanton Velasco MD [address] [facility] 110 [place] [address] PCP - Medical [place] 02/13/2402/11 Emelyn Hall, RN [address] [place] [address] [facility] 03/21/24 05/06/24 Alvina Sanchez LPN [address] [facility] 110 [place] [address] 05/06/24 documented as of this encounter
--- NOTE | 2024-10-20 10:17 | XR_ITS ---
The [address] [address] Patient Name: CHELSEA PATEL MRN: [id number] date: 1950 Sex: M Assigned Patient Location: LAB Current Patient Location: LAB Accession/Order Number: [id number] Exam Date: 10/20/2024 10:30 Report Date: 10/20/2024 11:05 At the request of: JAMES SEQUEIRA Procedure: XR chest 2V PA AND LATERAL CHEST: CLINICAL HISTORY: Left upper chest pain for the past week. COMPARISON: CT chest 03/06/2024 Median sternotomy wires are again noted. There is continued slight elevation of the right hemidiaphragm. There is no developing consolidation, effusion or pneumothorax. The cardiac, hilar and mediastinal silhouettes are within normal limits. There is no vascular congestion. Old right rib fractures are visualized. Patient has a right shoulder prosthesis. Beaufort pins are present at the humeral head on the left. Degenerative changes are noted at the spine. XR/XR chest 2V IMPRESSION: NO ACUTE CARDIOPULMONARY ABNORMALITY. Impression dictated by: Nessa Sarabia M.D. 10/20/2024 11:05 AM Dictation Location: [employer] Electronically authenticated by: [id number] Date: 10/20/2024 11:05
--- OUTSIDE RECORDS SUMMARY | 2024-10-20 10:22 | XMS_ITS | CCD ---
Author Organization [facility] ion [facility] Care Team Providers Care Digital Media Sales Consultant Name Role Phone BOZENA DOMINGO Admitting Unavailable BOZENA DOMINGO Attending Unavailable ALONZO CENTENO Referring Unavailable ALONZO CENTENO Primary Care Unavailable Hossein Tran Unavailable David Carrillo Unavailable Stanton Velasco II Primary Care Provider KUSHAL Velasco Attending Provider Hossein Tran Unavailable David Carrillo Unavailable Stanton Velasco II Primary Care Provider Hossein Tran Unavailable David Carrillo Unavailable Stanton Velasco II Primary Care Provider [phone] TRACIE TELLO Attending Unavailable ROSALINDA ., DR HODGES Admitting Unavailable DR STANTON VELASCO Primary Care Unavailable PITA .NICKIE Consulting UnavailALEXANDRE Powers Consulting Unavailable KIM PARK Consulting Unavailable TARYN, DR WATSON ROSADO Primary Care Unavaila BOZENA Packer Admitting Unavailable BOZENA DOMINGO Attending Unavailable DR STANTON VELASCO Primary Care Unavailable BOZENA DOMINGO Attending Unavailable BOZENA DOMINGO Consulting Unavailable BOZENA DOMINGO Admitting Unavailable MISC, DR FORDE Admitting Unavailable DR STANTON VELASCO Primary Care Unavailable MISC, DR FORDE Attending Unavailable MISC, DR FORDE Consulting Unavailable CARMEN BURGOS Consulting Unavailable ROD, DR RAMIREZ Attending Unavailable ROD, DR RAMIREZ Consulting Unavailable VELASCO, DR RAMIREZ Primary Care Unavailable VELASCO, DR RAMIREZ Admitting Unavailable VELASCO, DR RAMIREZ Admitting Unavailable VELASCO, DR RAMIREZ Attending Unavailable VELASCO, DR RAMIREZ Consulting Unavailable VELASCO, DR RAMIREZ Primary Care Unavailable ZIEBER, DR GERSON Rajan Consulting Unavailable ELTAHAWY, DR CUNNINGHAM Attending Unavailable ELTAHAWY, DR CUNNINGHAM Consulting Unavailable ELTAHAWY, DR CUNNINGHAM Admitting Unavailable ROD, DR RAMIREZ Primary Care Unavailable [facility] Provider Unava ilable Marc ARAYA Hossein [place] Unavailable Rod FATIMA MD, Daniel B Primary Care Provider David Carrillo MD Unavailable [phone] Rod FATIMA MD, Daniel B Primary Care Provider Watson Centeno Primary Care Provider Unava ilable Stanton Velasco MD Unavailable [phone] Stanton Velasco MD Primary Care Provider [phone] Suzanna Macdonald Attending Unavailable Suzanna Macdonald Admitting Unavailable LOUIE SAOLMON Attending Unavailable STANTON VELASCO II Primary Care Unavailable STANTON VELASCO II Primary Care Unavailable LOUIE SALOMON Attending Unavailable STANTON VELASCO II Primary Care Unavailable LOUIE SALOMON Attending Unavailable LOUIE SALOMON Admitting Unavailable Rafael ZHANG, Emelyn Unavailable [phone] STANTON VELASCO Primary Care Physician [phone] Stanton Velasco MD Unavailable [phone] Sanchez RN INTERVENTIONAL, Alvina Unavailable Unavailable MoForest lino AUna Attending Unavailable MoArmaan linoamad A. Attending Unavailable MouchliArmaanamad AUna Attending Unavailable Mouchli, Mohamad A. Admitting Unavailable MoForest lino A. Attending Unavailable ELTAHAWY, EHAB Attending Unavailable Sanchez RN INTERVENTIONAL, Alvina Unavailable STANTON VELASCO II Primary Care Unavailable KEV FERRELL Attending Unavailable AMANDA SOLORIOD Referring Unavailable KRISTAL HARE Attending Unavailable STANTON VELASCO II Primary Care Unavailable FOREST SOLORIO Referring Unavailable KRISTAL HARE Attending Unavailable VELASCO II, STANTON B Primary Care Unavailable CHRIS CLEMENTS Attending Unavailable VELASCO II, STANTON B Primary Care Unavailable CHRIS CLEMENTS Attending Unavailable VASAVADA, FADY P Referring Unavailable VELASCO II, STANTON B Primary Care Unavailable VELASCO II, STANTON B Primary Care Unavailable VASAVADA, FADY P Attending Unavailable VASAVADA, FADY P Attending Unavailable VELASCO II, STANTON B Primary Care Unavailable NEHEMIAH GILBERT Referring Unavailable VELASCO II, STANTON B Primary Care Unavailable VELASCO II, STANTON B Primary Care Unavailable FERRELL, KEV Attending Unavailable FERRELL, KEV Referring Unavailable VELASCO II, STANTON B Primary Care Unavailable VELASCOSTANTON B Attending Unavailable STANTON VELASCO B Attending Unavailable SUKUMAR MACK Attending Unavailable CHRISTINA SCOTT Attending Unavailable VELASCOSTANTON B Attending Unavailable VELASCO, STANTON B Attending Unavailable Allergies Allergy Classification Reported Allergen(s) Allergy Type Date of Onset Reaction(s) Facility Bee pollen (2 sources) Bee pollen Drug Allergy 4 [facility] Work Phone: oxybutynin (2 sources) oxybutynin Drug Allergy 4 Other: See [facility] Trospium (2 sources) Trospium Drug Allergy 5 Other: See Comments [facility] (1 source) Bee/Wasp/Ant venom; Translations: [Bee/Wasp Stings] Propensity to adverse reactions (disorder) 2 [facility] Repository (20 sources) Bee pollen; Translations: [BEE POLLEN] Drug Allergy 4 [facility] Work Phone: (20 sources) Seasonal allergy; Translations: [SEASONAL ALLERGIES] Allergy to substance 2 Other: See Comments [facility] (20 sources) Bee Sting; Translations: [BEE STING] Allergy to substance 9 [facility] (20 sources) oxybutynin; Translations: [OXYBUTYNIN] Drug Allergy 4 Other: See Comments [facility] (20 sources) Trospium; Translations: [TROSPIUM] Drug Allergy 5 Other: See Comments [facility] (20 sources) Venom-Honey Bee; Translations: [VENOM-HONEY BEE] Drug Allergy 9 Other: See Comments, Swelling [facility] (20 sources) Bee pollen Allergy to substance 4 Unknown, Swelling [facility] Work Phone: (20 sources) Honey bee venom Allergy to substance 3 [facility] (20 sources) Trospium Drug Allergy 5 [facility] (20 sources) Other Allergy to substance 2 Other [facility] (1 source) No Known Medication Allergies; Translations: [No Known Medication Allergies] Propensity to adverse reactions (disorder) [facility] Repository (1 source) BEE VENOM PROTEIN (HONEY BEE); Translations: [BEE VENOM PROTEIN (HONEY BEE)] Propensity to adverse reactions to drug (disorder) 9 [facility] Repository Medications Current Medications Medication Drug Class(es) Dates [...] Laxative Start: 9 Bisacodyl Active 10 MG NV Daily 0 November 06, 2018 4:02pm cephalexin [...] daily. COMPOUNDED PRESCRIPTION (20 sources) Start: 12-25-19 18 COMPOUNDED PRESCRIPTION 16 fr catheters 30 Device [...] Comment on above: Take 1 capsule by nd ut twice daily as needed for constipation. fluticasone propionate 0.05 mg/actuat metered dose nasal spray (20 sources) Corticosteroid Start: 02-03-20 23 take 1-2 spray(s) nasal route in the [...] Take 60 mg by mouth once daily. lactulose 667 mg/ml oral solution (6 sources) Osmotic Laxative Start: 09-02-19 take 15 mL by mouth in the morning lactulose (Chronulac) 10 GM/15ML solution Indications: Constipation, unspecified constipation type TAKE 15ml BY MOUTH IN THE MORNING then TAKE 15ml BY MOUTH BEFORE bedtime 900 mL 3 09/01/2024 Active Start: 04-16-2024 End: 08-14-2024 take 10 g by mouth at bedtime lactulose (Chronulac) 10 GM/15ML solution Indications: Constipation, unspecified constipation type Take 15 mL (10 g) by mouth in the morning and 15 mL (10 g) before bedtime. 900 mL 3 04/16/2024 08/14/2024 Active linaclotide 0.29 mg oral capsule (11 sources) Guanylate Cyclase-C Agonist Start: 04-03-2024 End: 10-17-2024 take 1 capsule by mouth before mealtime linaCLOtide (Linzess) 290 MCG capsule Indications: Chronic idiopathic constipation Take 1 capsule (290 mcg) by mouth in the morning for 16 days. Take before meals. Do not crush or chew.. 16 capsule 04/03/2024 10/17/2024 Discontinued (Other) lisinopril 20 mg oral tablet (20 sources) Angiotensin Converting Enzyme Inhibitor Start: 11-07-2017 take 1 tablet by mouth once daily lisinopril (ZESTRIL, PRINIVIL) 20 mg tablet Take 20 mg by mouth once daily. 3 11/07/2017 Active Comment on above: Take 20 mg by mouth once daily. loratadine 10 mg oral tablet (14 sources) Start: 03-07-2024 End: 03-07-2025 take 1 tablet by mouth once daily loratadine (Claritin) 10 MG tablet Indications: Allergic rhinitis, unspecified seasonality, unspecified trigger Take 1 tablet (10 mg) by mouth Daily 90 tablet 3 03/07/2024 03/07/2025 Active magnesium hydroxide 80 mg/ml oral suspension (20 sources) Start: 11-06-2018 End: 11-06-2018 take 1 mL by mouth once daily [...] mg tablet Indications: Coronary artery disease involving [place] coronary artery of [place] heart without angina pectoris , Essential hypertension , Hyperlipidemia, unspecified hyperlipidemia type Take 1 tablet by mouth twice daily. 10/10/2018 Active metoprolol tartr ate (Lopressor) 50 MG tablet every 12 (twelve) hours. Active Comment on above: Take 1 tablet by lang th twice daily. Multivitamin capsule (20 sources) take 1 capsule by mouth once daily Multivitamin capsule Take 1 capsule by mouth once daily. Active take 1 capsule by mouth once agusto ly Multivitamin capsule Take 1 capsule by mouth once daily. 0 Active Comment on above: Take 1 capsule by mo [facility] once daily. 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 100 tablet 11 10/17/2024 10/17/2025 Active End: 10-17-2024 nitroglycerin (Nitrostat) 0. 4 MG SL tablet as directed Sublingual 10/17/2024 Discontinued (Other) ondansetron 4 mg disintegrating oral tablet (12 sources) Serotonin-3 Receptor Antagonist Start: 03-31-2024 take 1 tablet by mouth every four hours as needed for nausea and vomiting ondansetron ODT (Zofran-ODT) 4 MG disintegrating tablet Take 4 mg by mouth every 4 (four) hours if needed for nausea or vomiting 03/31/2024 Active oxyCODONE hydrochloride 5 mg oral tablet (6 sources) Opioid Agonist Start: 05-03-2021 End: 06-14-2021 take 1 tablet by mouth every four [...] once daily. 12/13/2022 Active polyethylene glycol 3350 53285 mg powder for oral solution (20 sources) Osmotic Laxative Start: 019 Polyethylene Glycol 3350 (Miralax) 17 gram Powder In Packet Active 17 GM PO Daily November 06, 2018 9:59am polyethylene glycol 3350 788520 mg / potassium chloride 2970 mg / sodium bicarbonate 6740 mg / sodium chloride 5860 mg / sodium sulfate 03641 mg powder for oral solution (2 sources) Osmotic Laxative Start: 025 End: 025 take 4000 mL by mouth once GaviLyte-G [...] 10 days. 20 tablet 12/14/2023 12/24/2023 Active tenapanor 50 mg oral tablet (2 sources) take 1 tablet by mouth in the morning Tenapanor HCl (Ibsrela) 50 MG tablet Take 50 mg by mouth in the morning and 50 mg before bedtime. Active tiZANidine 4 mg oral tablet (5 [...] completed) triamcinolone acetonide 1 mg/ml topical cream (20 sources) Corticosteroid Start: triamcinolone (Kenalog) 0.1 % [...] on above: Take 1 capsule by mo ut once daily. Problems Active Problems Problem Classification Problem Date Documented Da te Episodic/Chronic Abdominal pain (5 sources) Inguinal pain; Translations: [Lower abdominal pain, unspecified] Onset: 06-27-2024 04-11-2024 Episodic Allergic reactions (20 sources) Atopic dermatitis; Translations: [Atopic dermatitis, unspecified] Onset: 06-26-2022 06-26-2022 Chronic Chronic kidney disease (20 sources) Chronic kidney disease stage 2; Translations: [Chronic kidney disease, stage 2 (mild)] Onset: 08-21-2022 08-21-2022 Chronic Chronic obstructive pulmonary disease and bronchiectasis (14 sources) Chronic obstructive lung disease; Translations: [Chronic obstructive pulmonary disease, unspecified] Onset: 04-02-2024 04-02-2024 Chronic Complications of surgical procedures or medical care (2 sources) Stricture of male urethra following procedure; Translations: [Postprocedural urethral stricture, male, unspecified] Onset: 12-12-2023 12-12-2023 Episodic Coronary atherosclerosis and other heart disease (20 sources) Coronary arteriosclerosis; Translations: [Atherosclerotic heart disease of [place] coronary artery without angina pectoris] Onset: 02-13-2004 10-30-2018 Chronic Coronary atherosclerosis and other heart disease (1 source) Presence of aortocoronary bypass graft; Translations: [PRESENCE AORTOCORONARY BYPASS GRAFT] Onset: 06-11-2022 Episodic Delirium, dementia, and amnestic and other cognitive disorders (20 sources) Mild cognitive disorder ; Translations: [Unspecified mental disorder due to known physiological condition] Onset: 08-21-2022 08-21-2022 Chronic Disorders of lipid metabolism (20 sources) Mixed hyperlipidemia; Translations: [Mixed hyperlipidemia] Onset: 11-20-2011 Resolved: 05-23-2023 10-30-2018 Chronic Diverticulosis and diverticulitis (20 sources) Diverticulosis of colon; Translations: [Diverticulosis of large intestine without perforation or abscess without bleeding] Onset: 08-21-2022 08-21-2022 Chronic Essential hypertension (20 sources) Essential hypertension; Translations: [Essential (primary) hypertension] Onset: 11-20-2011 10-30-2018 Chronic Fracture of upper limb (4 sources) Closed fracture of acromial end of clavicle; Translations: [Nondisplaced fracture of lateral end of right clavicle, initial encounter for closed fracture] Onset: 08-29-2024 08-29-2024 Episodic Genitourinary symptoms and ill-defined conditions (20 sources) Urge incontinence of urine; Translations: [Urge incontinence] Onset: 06-20-2017 06-20-2017 Chronic Heart valve disorders (2 sources) Nonrheumatic mitral (valve) insufficiency; Translations: [Nonrheumatic mitral (valve) insufficiency] Onset: 05-21-2024 Chronic Hyperplasia of prostate (20 sources) Weak urinary stream due to benign prostatic hypertrophy; Translations: [Benign prostatic hyperplasia with lower urinary tract symptoms] Onset: 08-21-2022 Resolved: 05-23-2023 Chronic Hypertension with complications and secondary hypertension (2 sources) Hypertensive heart disease without heart failure; Translations: [Hypertensive heart disease without heart failure] Onset: 05-21-2024 Chronic Intestinal obstruction without hernia (3 sources) Obstructive defecation syndrome; Translations: [Fecal impaction] Onset: 08-26-2024 08-26-2024 Episodic Nonspecific chest pain (4 sources) Left sided chest pain; Translations: [Chest pain, unspecified] 10-17-2024 Episodic Nutritional deficiencies (20 sources) Vitamin D deficiency; Translations: [Vitamin D [...] HIP] Onset: 04-14-2022 Chronic Other acquired deformities (20 sources) Contracture of right hip joint; Translations: [Contracture, right hip] Onset: 08-21-2022 08-21-2022 Chronic Other and unspecified benign neoplasm (3 sources) History of polyp of colon; Translations: [Personal history of colon polyps, unspecified] Onset: 06-27-2024 05-05-2024 Episodic Other bone disease and musculoskeletal deformities (1 source) Other specified disorders of bone density and structure, other site; Translations: [OTH D/O BONE DEN STRUCT OTH SITE] Onset: 04-18-2022 Episodic Other circulatory disease (20 sources) Raynaud's disease; Translations: [Raynaud's syndrome without gangrene] Onset: 08-21-2022 08-21-2022 Chronic Other connective tissue disease (4 sources) History of reverse prosthetic total arthroplasty of right shoulder; Translations: [Presence of right artificial shoulder joint] Chronic Other connective tissue disease (1 source) History of total knee arthroplasty; Translations: [Presence of right artificial knee joint] 11-01-2018 Chronic Other connective tissue disease (20 sources) Shoulder joint prosthesis present; Translations: [Presence [...] not specified as traumatic] 08-10-2020 Episodic Other connective tissue disease (2 sources) Pelvic floor dysfunction; Translations: [Other specified disorders of muscle] 08-26-2024 Episodic Other connective tissue disease (1 source) Other specified disorders of muscle; Translations: [High-tone pelvic floor dysfunction] Onset: 08-26-2024 Episodic Other diseases of bladder and urethra (1 source) Low compliance bladder; Translations: [Other neuromuscular dysfunction of bladder] 06-20-2023 Chronic Other diseases of bladder and urethra (2 sources) Overactive bladder; Translations: [Overactive bladder] 12-12-2023 Chronic Other diseases of bladder and urethra (2 sources) Overactive bladder; Translations: [Overactive bladder] Onset: 12-12-2023 Chronic Other diseases of bladder and urethra (5 sources) Male urethral stricture; Translations: [Unspecified urethral stricture, male, unspecified site] Episodic Other diseases of bladder and urethra (1 source) Traumatic anterior urethral stricture; Translations: [Post-traumatic anterior urethral stricture] 06-08-2023 Episodic Other fractures (1 source) Nondisplaced fracture of lateral end of right clavicle, subsequent encounter for fracture with routine healing; Translations: [Closed nondisplaced fracture of acromial end of right clavicle with routine healing, subsequent encounter] Onset: 09-19-2024 Episodic Other gastrointestinal disorders (20 sources) Chronic idiopathic constipation; Translations: [Chronic idiopathic constipation] Onset: 05-23-2023 05-23-2023 Chronic Other gastrointestinal disorders (6 sources) Constipation; Translations: [Constipation, unspecified] 04-16-2024 Episodic Other gastrointestinal disorders (2 sources) Defecation straining 05-05-2024 Episodic Other gastrointestinal disorders (1 source) Diarrhea; Translations: [Diarrhea, unspecified] Onset: 06-27-2024 Episodic Other gastrointestinal disorders (1 source) Digestive system finding; Translations: [Other specified symptoms and signs involving the digestive system and abdomen] Onset: 06-27-2024 Episodic Other gastrointestinal disorders (1 source) Outlet dysfunction constipation; Translations: [Constipation due to outlet dysfunction] Onset: 08-26-2024 Episodic Other lower respiratory disease (4 sources) Solitary pulmonary nodule; Translations: [SOLITARY PULMONARY NODULE] Onset: 05-19-2022 Episodic Other nervous system disorders (20 sources) Brachial plexus disorder; Translations: [Brachial plexus disorders] Onset: 03-12-2017 03-12-2017 Chronic Other nervous system disorders (20 sources) Chronic pain; Translations: [Other chronic pain] [...] Onset: 04-18-2022 Episodic Other non-traumatic joint disorders (6 sources) Pain in right shoulder; Translations: [Pain [...] 10-28-2018 10-30-2018 Chronic Other upper respiratory disease (20 sources) Seasonal allergic rhinitis; Translations: [Other seasonal allergic rhinitis] Onset: 08-21-2022 08-21-2022 Chronic Other upper respiratory disease (2 sources) Allergic rhinitis; Translations: [Allergic rhinitis, unspecified] 03-07-2024 Chronic Other upper respiratory infections (2 sources) Acute sinusitis; Translations: [Acute sinusitis, unspecified] 02-15-2024 Episodic Paralysis (1 source) Functional quadriplegia; Translations: [Functional quadriplegia] 11-01-2018 Chronic Residual codes; unclassified (3 sources) Finding related to ability to manage personal health care; Translations: [Other specified health status] Episodic Residual codes; unclassified (1 source) Other specified health status; Translations: [Self-catheterizes urinary bladder] Onset: 12-12-2023 Episodic Screening and history of mental health and substance abuse codes (1 source) Personal history of nicotine dependence; Translations: [PERSONAL HISTORY OF NICOTINE DEPEND] Onset: 03-24-2022 Episodic Spinal cord injury (20 sources) Cervical spinal cord injury; Translations: [Unspecified injury at C5 level of cervical spinal cord, initial encounter] Onset: 08-21-2022 08-21-2022 Chronic Spondylosis; intervertebral disc disorders; other back problems (20 sources) Cervical spondylosis; Translations: [Other spondylosis with myelopathy, cervical region] Onset: 05-04-2017 05-30-2017 Chronic Substance-related disorders (2 sources) Smoker 05-05-2024 Chronic Comment on above: Added secondary to d ocumentation in Social History. Unclassified (1 source) Obesity, Class I, BMI 30-34.9; Translations: [Obesity, Class I, BMI 30-34.9] Onset: 10-30-2018 Unclassified (1 source) Finding of sensation of abdomen 06-30-2024 Unclassified (2 sources) Right shoulder pain, unspecified chronicity 08-29-2024 Past or Other Problems Problem Classification Problem Date Documented Date Episodic/Chronic Abdominal hernia (2 sources) Inguinal hernia; Translations: [Unilateral inguinal hernia, without obstruction or gangrene, not specified as recurrent] Onset: 02-26-2024 02-18-2024 Episodic Blindness and vision defects (20 sources) Presbyopia; Translations: [Presbyopia] Onset: 05-23-2023 05-23-2023 Episodic Complication of device; implant or graft (20 sources) Loosening of total knee replacement; Translations: [Mechanical loosening of internal right knee prosthetic joint, initial encounter] Onset: 06-17-2020 06-17-2020 Episodic Fracture of lower limb (20 sources) Closed fracture of upper end of fibula; Translations: [Torus fracture of upper end of left fibula, initial encounter for closed fracture] Onset: 08-21-2022 Resolved: 05-23-2023 05-23-2023 Episodic Genitourinary symptoms and ill-defined conditions (18 sources) Retention of urine; Translations: [Retention of urine, unspecified] Onset: 03-24-2022 Episodic Mood disorders (20 sources) Mood disorders Onset: 05-23-2023 05-23-2023 Other aftercare (20 sources) Long-term current use of anticoagulant; Translations: [tank terminal gauger (current) use of anticoagulants] Onset: 05-23-2023 05-23-2023 Episodic Other and unspecified benign neoplasm (20 sources) Polyp of colon; Translations: [Polyp of colon] Onset: 05-23-2023 05-23-2023 Episodic Other circulatory disease (20 sources) H/O: heart disorder; Translations: [Personal history [...] 04-12-2021 04-12-2021 Episodic Other connective tissue disease (20 sources) Atrophy of deltoid muscle; Translations: [Muscle wasting and atrophy, not elsewhere classified, unspecified shoulder] Onset: 08-21-2022 08-21-2022 Episodic Other connective tissue disease (20 sources) Atrophy of muscle of right shoulder; Translations: [Muscle wasting and atrophy, not elsewhere classified, right shoulder] Onset: 08-21-2022 08-21-2022 Episodic Other connective tissue disease (20 sources) Impingement syndrome of left shoulder region; Translations: [Impingement syndrome of left shoulder] Onset: 08-21-2022 08-21-2022 Episodic Other connective tissue disease (20 sources) Full thickness rotator cuff tear; Translations: [Complete rotator cuff tear or rupture of right shoulder, not specified as traumatic] Onset: 05-04-2021 Resolved: 05-23-2023 05-23-2023 Episodic Other connective tissue disease (20 sources) Pain in limb; Translations: [Pain in unspecified limb] Onset: 08-21-2022 Resolved: 05-23-2023 05-23-2023 Episodic Other diseases of bladder and urethra (20 sources) Disorder of bladder; Translations: [Bladder disorder, unspecified] Onset: 05-04-2021 Resolved: 05-23-2023 05-23-2023 Chronic Other diseases of bladder and urethra (1 source) Unspecified urethral stricture, male, unspecified site; Translations: [Stricture of male urethra, unspecified stricture type] Onset: 06-20-2023 Episodic Other lower respiratory disease (20 sources) Dyspnea; Translations: [Dyspnea, unspecified] Onset: 11-20-2011 08-21-2022 Episodic Other lower respiratory disease (20 sources) Multiple nodules of lung; Translations: [Other nonspecific abnormal finding of lung field] Onset: 05-23-2023 05-23-2023 Episodic Other lower respiratory disease (20 sources) Solitary nodule of lung; Translations: [Solitary pulmonary nodule] Onset: 08-21-2022 Resolved: 05-23-2023 05-23-2023 Episodic Other nervous system disorders (20 sources) Unable to walk; Translations: [Difficulty in walking, not elsewhere classified] Onset: 05-23-2023 Resolved: 05-23-2023 11-01-2018 Chronic Other nervous system disorders (20 sources) Abnormal gait; Translations: [Unspecified abnormalities of gait and mobility] Onset: 08-21-2022 08-21-2022 Episodic Other nervous system disorders (20 sources) Unsteady when standing; Translations: [Unsteadiness on feet] Onset: 05-04-2021 08-21-2022 Episodic Other nervous system disorders (20 sources) Skin sensation disturbance; Translations: [Unspecified disturbances of skin sensation] Onset: 08-21-2022 08-21-2022 Episodic Other non-traumatic joint disorders (20 sources) Chronic pain following right total knee arthroplasty; Translations: [Pain in right knee] Onset: 11-14-2019 12-19-2019 Episodic Other non-traumatic joint disorders (20 sources) Pain in left knee; Translations: [Pain in joint, lower leg] Onset: 08-21-2022 Resolved: 05-23-2023 05-23-2023 Episodic Other screening for suspected conditions (not mental disorders or infectious disease) (20 sources) Patient encounter status; Translations: [Encounter for screening for other disorder] Onset: 08-21-2022 Resolved: 05-23-2023 Episodic Other skin disorders (2 sources) Excessive sweating; Translations: [Generalized hyperhidrosis] 11-02-2023 Episodic Pneumonia (except that caused by tuberculosis or sexually transmitted disease) (16 sources) 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; Translations: [Pulmonary histoplasmosis capsulati, unspecified] Onset: 03-07-2024 03-07-2024 Episodic Residual codes; unclassified (20 sources) Finding of activity of daily living; Translations: [Other general symptoms and signs] Onset: 05-23-2023 11-01-2018 Episodic Residual codes; unclassified (20 sources) Edema; Translations: [Edema, unspecified] Onset: 05-23-2023 11-04-2018 Episodic Spondylosis; intervertebral disc disorders; other back problems (20 sources) Spinal stenosis in cervical region; Translations: [Spinal stenosis, cervical region] Onset: 03-12-2017 03-12-2017 Episodic Urinary tract infections (20 sources) Urinary tract infectious disease; Translations: [Urinary tract infection, site not specified] Onset: 05-23-2023 Resolved: 05-23-2023 11-01-2018 Episodic Results Test Name Value Interpretation Reference Range Facility [facility] 09-19-2024 [facility] Office Visit (LOORRM ) FAHAD SOTELO ([id number]) 1950 M Date Time Provider Department 09/19/24 10:00 AM KEV FERRELL During your visit today, we recorded the following information about you: Kev Ferrell MD 09/19/2024 10:26 AM Signed This document has been created with the use of voice recognition technology. It may contain inaccuracies: misspellings, inaccurate syntax or word sense that escaped review. HISTORY: Fahad is a 74 year old male. He is here following up for right shoulder distal clavicle fracture sustained 5 weeks ago. Has history of reverse total shoulder. He states pain is improved. No new complaints HISTORY OF PRESENT ILLNESS: PAIN EVALUATION 09/19/2024 1000 Pain Level: 7 Pain Location: Shoulder-Right Description: Sharp;Sore Duration Units: Weeks Frequency: Intermittent Intervention/Comfort measure: Reposition;Relaxation; Positioning;Cold The patient's past medical history, surgical history, social history, family history, medications and allergies were reviewed with the patient today and are available in the chart for further review. EXAMINATION: Examination of the shoulder demonstrating the skin to be intact. No erythema. No ecchymosis. No arm swelling. Intact light sensation upper lateral border of the deltoid. No irritability with passive range of motion. Passive/active orward flexion to 100 without pain. Patient has active extension of the wrist and thumb. Biceps contour intact and non-painful/ no obvious sag. Good radial pulse Intact sensation to light touch distally No pain with neck ROM RADIOGRAPHS: XR obtained today, personally reviewed by myself demonstrating distal clavicle fracture in unchanged position. Reverse arthroplasty IMPRESSION: Encounter Diagnosis ICD-10-CM 1. Closed nondisplaced fracture of acromial end of right clavicle with routine healing, subsequent encounter S42.034D XR CLAVICLE 2V RIGHT Procedures PLAN: Right distal clavicle fracture with history of reverse total shoulder. Has had improvement. I again discussed activity modification. He is going to follow-up in 1 month. Kev Ferrell MD Allergies As of Date: 09/19/2024 Noted Allergy Reaction BEE POLLEN 01/30/2014 7 [...] Comments Comments: Other Reaction(s): Xerostomia Date Reviewed: 09/19/2024 Reviewed by: Vivien Cross MA - Fully Assessed Reason for Visit: Follow Up [171] Primary Visit Diagnosis:Closed nondisplaced fracture of acromial end of right clavicle with routine healing, subsequent encounter [S42.034D] Order(s):XR CLAVICLE 2V RIGHT [[id number]] Order #: [id number] FUTURE Prescriptions as of 09/19/2024 - trospium (SANCTURA) 20 mg tablet Take [...] once daily. Problem List As Of Date 09/19/2024 Noted Resolved Shoulder weakness [R29.898] 03/12/2017 Brachial plexopathy [G54.0] 03/12/2017 Cervical spinal stenosis [M48.02] 03/12/2017 Cervical spondylosis with myelopathy [M47.12] 05/04/2017 Preop testing [Z01.818] 05/04/2017 CAD (coronary artery disease) [I25.10] 02/13/2004 Essential hypertension [I10] Mixed hyperlipidemia [E78.2] Cervical stenosis of spine [M48.02] 05/29/2017 Urge incontinence [N39.41] 06/20/2017 Obesity, Class I, BMI 30-34.9 [E66.811] 10/28/2018 Osteoarthritis of right knee [M17.11] (more content not included)... Normal [facility] No Panel InformationOrdered By: Radiologist Radiology on 09-19-2024 [facility] Work Phone: No Panel Informationon 09-19 Radiology Study observation (narrative) [facility] XR CLAVICLE 2V RTon 09-20-19 25 * * *Final Report* * * DATE [...] DISTAL RIGHT CLAVICLE FRACTURE WITH EARLY HEALING. Liner Man: DEEPIKA Transcribe Date/Time: Sep 19 2024 10:47A Dictated by : MARIO HODGES MD This examination was interpreted and the report reviewed and electronically signed by: MARIO HODGES MD on Sep 19 2024 10:50AM EST [id number]^[email or web address]_IDC^SI^ ACN [facility] Radiology, Radiologist, MD - 09/19/2024 * * [...] DISTAL RIGHT CLAVICLE FRACTURE WITH EARLY HEALING. Liner Man: [facility] Transcribe Date/Time: Sep 19 2024 10:47A Dictated by : MARIO HODGES MD This examination was interpreted and the report reviewed and electronically signed by: MARIO HODGES MD on Sep 19 2024 10:50AM EST [id number]^AGFA_IDC^SI^ [facility] XR CLAVICLE 2V RT * * *Final Report* * * [...] DISTAL RIGHT CLAVICLE FRACTURE WITH EARLY HEALING. Liner Man: DEEPIKA Transcribe Date/Time: Sep 19 2024 10:47A Dictated by : MARIO HODGES MD This examination was interpreted and the report reviewed and electronically signed by: MARIO HODGES MD on Sep 19 2024 10:50AM EST [id number] Normal [facility] XR Clavicle - right 2 Viewso n 09-19-2024 IMPRESSION: SUBACUTE DISTAL RIGHT CLAVICLE FRACTURE WITH EARLY HEALING. Liner Man: [facility] Transcribe Date/Time: Sep 19 2024 10:47A Dictated by : MARIO HODGES MD This examination was interpreted and the report reviewed and electronically signed by: MARIO HODGES MD on Sep 19 2024 10:50AM EST DIVISION OF RADIOLOGY * * *Final [...] spine and median sternotomy are again seen. DIVISION OF RADIOLOGY Provider, [facility] - 09/19/2024 * * *Final Report* * [...] DISTAL RIGHT CLAVICLE FRACTURE WITH EARLY HEALING. Liner Man: DEEPIKA Transcribe Date/Time: Sep 19 2024 10:47A Dictated by : MARIO HODGES MD This examination was interpreted and the report reviewed and electronically signed by: MARIO HODGES MD on Sep 19 2024 10:50AM [facility] CNOVon 08-29-2024 CNOV Office Visit (LOORRM ) FAHAD SOTELO ([id number]) 1950 M Date Time Provider Department 08/29/24 8:15 AM KEV FERRELL During your visit today, we recorded the following information about you: Kev Ferrell MD 08/29/2024 8:39 AM Signed This document has been created with the use of voice recognition technology. It may contain inaccuracies: misspellings, inaccurate syntax or word sense that escaped review. The patient is seen at the request of self for evaluation and an opinion regarding treatment. A copy of this report will remain in the shared medical record CHIEF COMPLAINT: Fahad Sotelo is a 73 year old Right hand dominant male who presents today for new evaluation of right distal clavicle fracture. HISTORY OF PRESENT ILLNESS: PAIN EVALUATION 08/29/2024 0818 Pain Location: Shoulder-Right Description: Aching;Sore Duration Amount of Time: 2 Duration Units: Weeks Frequency: Continuous Intervention/Comfort measure: Reposition;Relaxation; Positioning;Cold HISTORY: Fahad Sotelo has complains of 2-week history of right shoulder pain after falling at a grocery store and injuring his right shoulder. He has significant orthopedic history to his right shoulder. He underwent right reverse total shoulder arthroplasty on 05/02/2021. He states he has had some improvement. No neurologic complaints No other musculoskeletal complaints ALLERGIES: ALLERGIES Allergen Reactions Bee Pollen Swelling Bee Sting Swelling Hay Fever [Seasonal* Other: See Comments Sneezing. Oxybutynin Other: See Comments Other Reaction(s): Constipation Venom-Honey Bee Other: See Comments, Swelling Other Reaction(s): Unknown Trospium Other: See Comments Other Reaction(s): Xerostomia PAST MEDICAL HISTORY: PAST MEDICAL HISTORY Diagnosis Date CAD (coronary artery disease) 2005 MT in 1997. Had a stent placed in 2008 c/b coronary artery dissection and that lead to a CABG x1 in 2008 Former smoker quit 1997 Hyperlipidemia Hypertension Intermittent self-catheterization of bladder Urge incontinence of urine SOCIAL HISTORY: Tobacco Use: Types: Cigarettes EXAMINATION: GENERAL: Elderly ORIENTATION: Alert and oriented to person place and time HABITUS: Normal GAIT: Normal, the patient did not have trouble getting onto the exam table. right shoulder exam: skin intact no erythema, no ecchymosis, no arm swelling no irritability with PROM active equals passive ROM forward elevation 120 Tenderness over the distal clavicle Some slight ecchymosis intact sensation to light touch distally good radial pulse no pain with neck ROM RADIOGRAPHS: XR Obtained today and personally reviewed by myself demonstrating reverse total shoulder arthroplasty good position. No evidence of fracture around the implant. Distal clavicle fracture distal to the AC ligaments IMPRESSION: Encounter Diagnosis ICD-10-CM 1. Right shoulder pain, unspecified chronicity M25.511 XR SHOULDER ORTHO 4V AP/TRUE AP/LAT/OUTLET RIGHT 2. Closed nondisplaced fracture of acromial end of right clavicle, initial encounter S42.034A Procedures Plan: Right distal clavicle fracture. Proceed with conservative treatment. A sling was provided. Discussed icing and activity modification. Follow-up 2 to 3 weeks Kev Ferrell MD Allergies As of Date: 08/29/2024 Noted Allergy Reaction BEE POLLEN 01/30/2014 7 [...] Comments Comments: Other Reaction(s): Xerostomia Date Reviewed: 08/29/2024 Reviewed by: Vivien Cross MA - Fully Assessed Reason for Visit: Pain [78] Primary Visit Diagnosis:Right shoulder pain, unspecified chronicity [M25.511] Other Visit Diagnosis:Closed nondisplaced fracture of acromial end of right clavicle, initial encounter [S42.034A] Order(s):XR SHOULDER ORTHO 4V AP/TRUE AP/LAT/OUTLET RIGHT [[id number]] Order #: [id number] FUTURE JOVITA, ARM [[id number]] Order #: [id number] Prescriptions as of 08/29/2024 - trospium (SANCTURA) 20 mg tablet Take [...] 1 tablet by mouth twice daily. - met (more content not included)... Normal [facility] No Panel InformationOrdered By: Radiologist Radiology on 08-29-2024 [facility] [employer] Work Phone: XR SHLDR 4V AP/LUCITA/LAT/OUTLE T RTon 08-29-2024 * * *Final Report* * * DATE [...] hardware complication. Healing nondisplaced distal clavicle fracture. Liner Man: DEEPIKA Transcribe Date/Time: Aug 29 2024 9:14A Dictated by : YUAN PATINO DO This examination was interpreted and the report reviewed and electronically signed by: YUAN PATINO DO on Aug 29 2024 9:16AM EST [id number]^[email or web address]_IDC^SI^ ACN [facility] Radiology, Radiologist, - 08/29/2024 * * *Final [...] hardware complication. Healing nondisplaced distal clavicle fracture. Liner Man: [facility] Transcribe Date/Time: Aug 29 2024 9:14A Dictated by : YUAN PATINO DO This examination was interpreted and the report reviewed and electronically signed by: YUAN PATINO DO on Aug 29 2024 9:16AM EST [id number]^[email or web address]_IDC^SI^ ACN [facility] XR SHLDR 4V AP/LUCITA/LAT/OUTLET RT * * *Final Report* * * [...] hardware complication. Healing nondisplaced distal clavicle fracture. Liner Man: DEEPIKA Transcribe Date/Time: Aug 29 2024 9:14A Dictated by : YUAN PATINO DO This examination was interpreted and the report reviewed and electronically signed by: YUAN PATINO DO on Aug 29 2024 9:16AM EST [id number] Normal [facility] Radiology Study observation (narrative) [facility] XR Shoulder - right 4 Viewso n 08-29-2024 IMPRESSION: Reverse RIGHT shoulder arthroplasty without hardware complication. Healing nondisplaced distal clavicle fracture. Liner Man: DEEPIKA Transcribe Date/Time: Aug 29 2024 9:14A Dictated by : YUAN PATINO DO This examination was interpreted and the report reviewed and electronically signed by: YUAN PATINO DO on Aug 29 2024 9:16AM EST DIVISION OF RADIOLOGY * * *Final [...] with osteophytes. Visualized RIGHT lung is clear. DIVISION OF RADIOLOGY Provider, [facility] - 08/29/2024 * * *Final Report* * [...] hardware complication. Healing nondisplaced distal clavicle fracture. Liner Man: [facility] Transcribe Date/Time: Aug 29 2024 9:14A Dictated by : YUAN PATINO DO This examination was interpreted and the report reviewed and electronically signed by: YUAN PATINO DO on Aug 29 2024 9:16AM EST [facility] Radiology Study observation (narrative) [facility] ANORECTAL MANOMET Julissa 08-26-2024 I have reviewed, verified, and confirmed the results of anorectal manometry, rectal sensation, tone and compliance testing and EMG testing. I agree with the impression as written above. Rose Marie Pruett MD Pelvic Floor Colon & Rectal Surgery [employer] Reason for testing: constipation and abdominal pain/bloating [...] of test results and treatment plan. Kristal Hare APRN.[employer] ADULT [place] ANORECTAL MANOMET RYOrdered By: Rose Marie Pruett on 08-26-2024 [facility] Work Phone: Radiology Study observation (narrative) [facility] Work Phone: CNOVon 08-26-2024 CNOV Office Visit ([facility] ) FAHAD SOTELO ([id number]) 1950 M Date Time Provider Department 08/26/24 1:30 PM KRISTAL HARE [facility] During your visit today, we recorded the following information about you: Kristal Hare APRN.CNP 08/26/2024 1:55 PM Signed PELVIC FLOOR COLON AND RECTAL SURGERY Reason for visit: Review anorectal manometry and EMG results History of Present Illness: Fahad Sotelo is a 73 year old MALE who was seen at the request of Dr. Solorio for anorectal manometry testing, rectal sensation testing and EMG recruitment. Mr. Sotelo was referred for testing due to symptoms of abdominal pain, constipation/diarrhea. Duration of symptoms: 4 months patient reports approximately 4 months ago reporting to the emergency department due to severe constipation. He was given enemas at the time and followed up with GI. Since then he has been taking contulose and IBSrela. He reports having only loose stools with fair control although at times he is not able to leave his home due to frequency of bowel movements. At this point he states having typically 1-2 bowel movements a day but at times will go 2 days without. He reports abdominal pain and bloating has improved since his bowel regimen. He denies anorectal pain. He feels that his stools have not been formed since starting this medication. Prior to this he reports intermittent constipation with occasional straining. He endorses long-term bladder difficulty with limited bladder capacity/OAB. He is able to void throughout the day but does perform self catheterizations 3 times a day to ensure his bladder is fully emptied. Patient is up-to-date on colorectal cancer screening. Denies previous anorectal procedures. He does endorse having some spinal injuries and surgeries making his mobility limited. He fell in the grocery store 2 weeks ago and broke his right clavicle. He states a plate was placed at that time and is scheduled follow-up with his orthopedic provider later this week. Previous Testing Results include: Colonoscopy: Yes Date:Oct 2021 - random biopsies: No - polyps: Yes- TA- repeat in 5 years. Manometry: today Defecography: No PAST MEDICAL HISTORY Diagnosis Date CAD (coronary artery disease) 2005 MT in 1997. Had a stent placed in 2008 c/b coronary artery dissection and that lead to a CABG x1 in 2008 Former smoker quit 1997 Hyperlipidemia Hypertension Intermittent self-catheterization of bladder Urge incontinence of urine PAST SURGICAL HISTORY Procedure Laterality Date ARTHRP KNE CONDYLEANDPLATU MEDIALANDLAT COMPARTMENTS 10/30/2018 right CABG (1) VEIN GRAFT AND ARTERIAL GRAFT 2008 coronary dissection during stent placement [facility] INNERVATED FACIAL NRV UNIL CYSTO.PANENDO 11/24/2021 Dr. Dye CYSTO.PANENDO 05/31/2022 CYSTO.PANENDO N/A 06/04/2023 CYSTOSCOPY 03/29/2017 Dr. Fady LEE [facility] LEFT HEART CATH,PERCUTANEOUS 05/11/2003 [...] by Nava Back LPN, [place] [facility] Current Outpatient Medications Medication Sig Dispense Refill trospium (SANCTURA) 20 mg tablet Take 1 tablet by mouth two times a day. 30 tablet 4 plecanatide (TRULANCE) 3 mg tablet Take 1 tablet by mouth once daily. nitroglycerin sublingual (NITROQUICK) 0.4 mg SL tablet Amoxicillin 500 mg tablet TAKE 4 TABLETS [...] No current facility-administered medications for this visit. [place] (more content not included)... Normal [facility] XR SHOULDER RT MIN 2Von 07-0 [facility] [address] [place] [address] XRay Report Signed Patient: FAHAD SOTELO MR#: [id number] : 1950 Acct:[id number] Age/Sex: 73 / M ADM Date: 08/18/24 Loc: RAD Attending Dr: STANTON VELASCO Ordering Physician: STANTON VELASCO Date of Service: 08/18/24 Procedure(s): XR shoulder RT min 2V Accession Number(s): [id number] cc: STANTON VELASCO The [place] [address] Patient Name: FAHAD SOTELO MRN: [facility]:[id number] date: 1950 Sex: M Assigned Patient Location: [facility] Current Patient Location: [facility] Accession/Order Number: [id number] Exam Date: 08/18/2024 16:43 Report Date: 08/18/2024 [...] Morgan M.D. 08/18/2024 4:47 PM Dictation Location: [place] [address] Electronically authenticated by: [id number] Y Date: 08/18/2024 16:47 Dictated By: Daniel Morgan D.O. Signed By: 08/18/249 DD/ 46 TD/TT: Liner Man: [facility] Radiology, Radiologist, MD - 08/18/[address] [address] XRay Report Signed Patient: FAHAD SOTELO MR#: [id number] : 1950 Acct:[id number] Age/Sex: 73 / M ADM Date: 08/18/24 Loc: [facility] Attending Dr: STANTON VELASCO Ordering Physician: STANTON VELASCO Date of Service: 08/18/24 Procedure(s): XR shoulder RT min 2V Accession Number(s): [id number] cc: STANTON VELASCO [place] [id number] Patient Name: FAHAD SOTELO MRN: [id number] date: 1950 Sex: M Assigned Patient Location: [facility] Current Patient Location: [facility] Accession/Order Number: [id number] Exam Date: 08/18/2024 16:43 Report Date: 08/18/2024 [...] Morgan M.D. 08/18/2024 4:47 PM Dictation Location: [place] [address] Electronically authenticated by: [id number] Y Date: 08/18/2024 16:47 Dictated By: Daniel Morgan D.O. Signed By: 08/18/241648 DD/ 46 TD/TT: Liner Man: [facility] Healthcare Radiology Study observation (narrative) [facility] XR SHOULDER RT MIN 2VOrdered By: Radiologist Radiology on 08-18-2024 [facility] Work Phone: Orders Onlyon 07-14-2024 Orders Only [id number] Fahad Sotelo 1950 M Date Provider Department Center 07/14/2024 Karyn-AIDEN SERRANO [facility] Family History Problem Relation Age of Onset Coronary artery disease Other Stroke Other Heart attack Other Family Status - Relation Status Age at Other Normal [facility] Ambulatory Visit Summaryon 0 5-19-2025 Ambulatory Visit Summary Ambulatory Visit Summary FAHAD SOTELO :1950 Visit Date:06/30/2024 Ambulatory Visit Instructions Your Diagnosis Diarrhea Generalized abdominal pain Straining during bowel movements History of colon polyps Abdominal cramping Your Care Team Attending Physician - Lyndsey CAMARGO, Forest [place] Primary Care Physician - STANTON VELASCO MD [...] Someone Will Contact You Regarding These Appointments [facility] External Ambulatory Referral, Referring provider preference, Colon [...] you for choosing us for your care. Normal [facility] Gastroenterology Office/Clin ic Noteon 06-30-2024 Gastroenterology Office/Clinic Note Gastroenterology Office/Clinic Note Chief Complaint Diarrhea, abdominal pain, urgency [...] Diarrhea, unspecified) Ordered: Current tobacco non-user 1036F [facility] External Ambulatory Referral Most recent diastolic blood pressure <80 mm Hg 3078F Systolic BP <130 mm Hg (Most Recent) 3074F 2. Generalized abdominal pain (R10.84: Generalized abdominal pain) Ordered: Current tobacco non-user 1036F [facility] External Ambulatory Referral Most recent diastolic blood pressure <80 mm Hg 3078F Systolic BP <130 mm Hg (Most Recent) 3074F 3. Straining during bowel movements (R19.8: Other specified symptoms and signs involving the digestive system and abdomen) Ordered: Current tobacco non-user 1036F [facility] External Ambulatory Referral Most recent diastolic blood pressure <80 mm Hg 3078F Systolic BP <130 mm Hg (Most Recent) 3074F 4. History of colon polyps (Z86.0100: Personal history of colon polyps, unspecified) Ordered: Current tobacco non-user 1036F [facility] External Ambulatory Referral Most recent diastolic blood pressure <80 mm Hg 3078F Systolic BP <130 mm Hg (Most Recent) 3074F 5. Abdominal cramping (R10.9: Unspecified abdominal pain) Ordered: [facility] External Ambulatory Referral Will schedule anorectal manometry [...] 06/30/2024 Family History Family history is negative Normal [facility] Comment on above: Result Comment: Elec tronically Signed By: Lyndsey CAMARGO, Forest [place].br\Date and Time Signed: 06/30/24 12:42 EDT [place] ECHO DOPPLER COMPLETEon 0 06-06-[address] [address] Cardiology Report Signed Patient: FAHAD SOTELO MR#: [id number] : 1950 Acct:[id number] Age/Sex: 73 / M ADM Date: 06/05/24 Loc: CARD Attending Dr: Tamanna Joshua M.D. Ordering Physician: Tamanna Joshua M.D. Date of Service: 06/05/24 Procedure(s): CA echo doppler complete Accession Number(s): [id number] cc: STANTON VELASCO ; Tamanna Joshua M.D. Patient Name: FAHAD SOTELO MR#: [id number] : 1950 Exam Date: 06/05/2024 Ordering Doctor: DR TAMANNA JOSHUA M.D. ECHOCARDIOGRAM REPORT PROCEDURE: CA ECHO DOPPLER [...] 09:43 Dictated By: ADOLFO DIAZ Signed By: 06/06/2444 DD/ 2 (more content not included)... [facility] Radiology, Radiologist, MD - 06/06/2024 [place] [address] Cardiology Report Signed Patient: FAHAD SOTELO MR#: [id number] : 1950 Acct:[id number] Age/Sex: 73 / M ADM Date: 06/05/24 Loc: CARD Attending Dr: Tamanna Joshua M.D. Ordering Physician: Tamanna Joshua M.D. Date of Service: 06/05/24 Procedure(s): CA echo doppler complete Accession Number(s): [id number] cc: STANTON VELASCO ; Tamanna Joshua M.D. Patient Name: FAHAD SOTELO MR#: [id number] : 1950 Exam Date: 06/05/2024 Ordering Doctor: DR TAMANNA JOSHUA M.D. ECHOCARDIOGRAM REPORT PROCEDURE: CA ECHO DOPPLER [...] 09:43 Dictated By: ADOLFO DIAZ Signed By: 06/06/2444 DD/ 2 TD/TT: Liner Man: [facility] Radiology Study observation (narrative) [facility] CA ECHO DOPPLER COMPLETEOrde red By: Radiologist Radiology on 06-06-2024 [facility] Work Phone: Office Visiton 05-21-2024 Follow-up visit [id number] Fahad Sotelo 1950 M Date Provider Department Center 05/21/2024 271-TAMANNA JOSHUA [facility]ARD [facility] Family History Problem Relation Age of Onset Coronary artery disease Other Stroke Other Heart attack Other Family Status - Relation Status Age at Other Level of Service:83075 [place] OFFICE/OUTPATIENT ESTABLISHED LOW MDM 20 MIN Normal [facility] Ambulatory Visit Summaryon 0 05-14-2024 Ambulatory Visit Summary Ambulatory Visit Summary FAHAD SOTELO :1950 Visit Date:05/14/2024 Ambulatory Visit Instructions Your Diagnosis Abdominal pain Diarrhea Straining during bowel movements History of colon polyps Generalized abdominal pain Your Care Team Attending Physician - Lyndsey CAMARGO, Forest Moore. Primary Care Physician - STANTON VELASCO [...] Sunday 12:15 PM EDT With: Lyndsey CAMARGO, Forest Shelby Where: [facility] [address] [facility] [place] [address] [place] [address]- You Need to Complete the Following XR Abdomen 1 View, 05/14/24, Routine, Order for future visit, Transport Mode: Ambulatory, Reason: Abdominal distention, No, Abdominal pain Diarrhea Straining during bowel movements History of colon polyps Generalized abdominal pain, pp_set_radiology_subsp ecialty... Medications What How Much When Why Instructions [...] you for choosing us for your care. Antoinette [facility] Ambulatory Visit Summary Ambulatory Visit Summary FAHAD SOTELO :1950 Visit Date:05/14/2024 Ambulatory Visit Instructions Your Diagnosis Abdominal pain Diarrhea Straining during bowel movements History of colon polyps Generalized abdominal pain Your Care Team Attending Physician - Lyndsey CAMARGO, Forest Moore. Primary Care Physician - STANTON VELASCO [...] Sunday 12:15 PM EDT With: Lyndsey CAMARGO, Forest Shelby Where: [facility] [address] [place] [address]- You Need to Complete the Following XR Abdomen 1 View, 05/14/24, Routine, Order for future visit, Transport Mode: Ambulatory, Reason: Abdominal distention, No, Abdominal pain Diarrhea Straining during bowel movements History of colon polyps Generalized abdominal pain, pp_set_radiology_subsp ecialty... Medications What How Much When Why Instructions [...] you for choosing us for your care. Normal [facility] Gastroenterology Office/Clin ic Noteon 05-14-2024 Gastroenterology Office/Clinic Note Gastroenterology Office/Clinic Note Chief Complaint Constipation, abdominal pain. Insurance does not cover Linzess. Patient also has Trulance prescribed by [place] Staff EST, 73 year old male who presents today for a sick call for complaints of diarrhea and abdominal pain. [place] prescribes Trulance. Patient states that before his visit on 05/05/[address] Solorio he was given samples by Dr Velasco of Linzess 290. Patient also states that a few weeks prior to 05/05/24 new patient visit he was at [facility] ER x 2 and was told that [...] 05/14/2024 Family History Family history is negative [facility] Comment on above: Result Comment: Elec tronically Signed By: Forest Solorio MD\.br\Date and Time Signed: 05/14/24 13:40 EDT XR Abdomen 1 Viewon 05-15-19 XR Abdomen 1 View Exam Date/Time: 05/14/2024 14:34 EDT Reason for Exam: R10.9, R19.7;Abdominal distention Report IMPRESSION: CHOLELITHIASIS. CLINICAL HISTORY: Abdominal distention, R10.9, R19.7 COMPARISON: NONE. FINDINGS: Gas and stool in colon. No diffuse small bowel dilatation or mass effect. Multiple calculi identified within gallbladder. No discrete calculi visualized over kidneys bilaterally. Probable phleboliths in pelvic inlet. Internal fixation lower lumbar spine. Technical Comments: Ka,r in mGy = . DAP = . Ordering Provider: Forest Solorio FINAL REPORT Dictated: 05/14/2024 3:24 pm Anderson Perry MD Signed (Electronic Signature): 05/14/2024 3:24 pm Signed by: Anderson Perry MD Transcribed by: TAHIR Technologist: BOBBY Normal [facility] Ambulatory Visit Summaryon 0 05-05-2024 Ambulatory Visit Summary Ambulatory Visit Summary FAHAD SOTELO :1950 Visit Date:05/05/2024 Ambulatory Visit Instructions Your Diagnosis Constipation Straining during bowel movements History of colon polyps Your Care Team Attending Physician - Lyndsey CAMARGO, Forest Moore. Primary Care Physician - ROD CAMARGO, STANTON Payne This Is Your Medications List linaclotide (Linzess [...] of colon polyps Refills: 9 Pickup at [facility] Unchanged ascorbic acid (Vitamin C) Every [...] physician if questions or concerns Pharmacy Information [facility]: [address] [place], [place] [phone] Allergies No Known Medication Allergies Problems Ongoing [...] you for choosing us for your care. Normal [facility] Gastroenterology Office/Clin ic Noteon 05-05-2024 Gastroenterology Office/Clinic Note Gastroenterology Office/Clinic Note Chief Complaint Ref by Marcin for [...] lactulose, docusate, senna and Dulcolax Colonoscopy @ [facility] 10/02/21 Impression: 2 small polyps in the [...] Daily, # 30 cap(s), Refills(s) 9, Pharmacy: [facility], 175, cm, 05/05/24 12:57:00 EDT, Height/Length Dosing, 99, kg, 05/05/24 12:57:00 EDT, Weight Dosing E&M of New Patient Moderate 45-59 Min 87403 2. Straining during bowel movements (R19.8: Other specified symptoms and signs involving the digestive system and abdomen) Ordered: linaclotide, 145 mcg = 1 cap(s), Oral, Daily, # 30 cap(s), Refills(s) 9, Pharmacy: [facility], 175, cm, 05/05/24 12:57:00 EDT, Height/Length Dosing, 99, kg, 05/05/24 12:57:00 EDT, Weight Dosing E&M of New Patient Moderate 45-59 Min 90902 3. History of colon polyps (Z86.0100: Personal history of colon polyps, unspecified) Ordered: linaclotide, 145 mcg = 1 cap(s), Oral, Daily, # 30 cap(s), Refills(s) 9, Pharmacy: [facility], 175, cm, 05/05/24 12:57:00 EDT, Height/Length Dosing, 99, kg, 05/05/24 12:57:00 EDT, Weight Dosing E&M of New Patient Moderate 45-59 Min 81688 Stop linaclotide Start Linzess 145 mcg daily [...] 05/05/2024 Family History Family history is negative Normal [facility] Comment on above: Result Comment: Elec tronically Signed By: Forest Solorio MD\.br\Date and Time Signed: 05/05/24 13:18 EDT ANTONYOVon 04-11-2024 CNOV Office Visit (GENSAV ) FAHAD SOTELO ([id number]) 1950 M Date Time Provider Department 04/11/24 [...] Encounter Status:Closed by CHRIS CLEMENTS on 04/11/24 Normal [facility] CNPNon 03-17-2024 [facility] FAHAD SOTELO ([id number]) 1950 M Date Time Provider Department 03/17/24 FADY DYE During your visit today, we recorded the following information about you: ScottLuzma 03/17/2024 9:17 AM Signed Orders faxed to [facility] [phone] Allergies As of Date: 03/17/2024 Noted Allergy [...] Encounter Status:Closed by LUZMA SCOTT on 03/17/24 [facility] CNOVon 02-26-2024 CNOV Office Visit (GENSAV ) FAHAD SOTELO ([id number]) 1950 M Date Time Provider Department 02/26/24 1:45 PM CHRIS CLEMENTS During your visit today, we recorded the following information about you: Pulse Blood pressure Weight Height 57/minute 111/70 99.8 kg 1.765 m Chris Clements MD 02/26/2024 3:16 PM Signed Patient is referred by Stanton Velasco II, MD with recent right groin pain. A copy of dictation with recommendations to above by [facility] electronic medical record US mail. No prior groin or abdominal surgeries [facility] records verify confirmed update including past surgical [...] hernia diagnosed clinically Referring Provider: FADY DYE [[id number]] Allergies As of Date: 02/26/2024 Noted Allergy [...] groin pain [R10.30] Order(s):CONSULT TO GENERAL SURGERY [0020] Order #: [id number]: [id number] Prescriptions as of 02/26/2024 - trospium [...] Encounter Status:Closed by CHR[facility] CLEMENTS on [facility] (UROLAV) FAHAD SOTELO ([id number]) 1950 M Date Time Provider Department 02/25/24 FADY DYE UROESAU During your visit today, we recorded the following information about you: Rachel Palencia MA 02/25/2024 4:43 PM Signed We received a fax from [employer]. I have the form, from [employer], in Dr. Dye's work bin. We will need Dr. Dye's signature and date signed on the form. When I spoke with the Pt he said he will be getting his cath supplies from [facility]. [employer] is there sister store owned by [facility]. Rachel Palencia MA 02/28/2024 3:09 PM Signed Form faxed to: [phone]. Transmitted OK - Confirmation Received. We will hold onto the paperwork in our hold for two (2) week bin. Afterwards, it will be sent to [facility] for scanning into the pt's chart. Scott Luzma 03/04/2024 11:43 AM Signed Patient states that he spoke with [employer] and they stated that a medical necessity form needs to be filled out. VincentShameka 03/07/2024 11:39 AM Signed Joseline from patients insurance calling stating the patient is trying to get his cath supplies and [employer] need the medical necessity forms sent to [...] Xerostomia Date Reviewed: 01/17/2024 Reviewed by: Aislinn Diggs, LEATHA - Fully Assessed Reason for Visit: Fax Received - [facility] [Other] Prescriptions as of 03/07/2024 - trospium [...] Encounter Status:Closed by RACHEL PALENCIA on 02/28/24 [facility] 02-22-2024 [facility] Telephone (MARILY) FAHAD SOTELO ([id number]) 1950 M Date Time Provider Department 02/22/24 FADY DYE During your visit today, we recorded the following information about you: Luzma Scott 02/22/2024 10:42 AM Signed Faxed orders for catheter supplies to [phone] Allergies As of Date: 02/22/2024 Noted Allergy [...] Xerostomia Date Reviewed: 01/17/2024 Reviewed by: Aislinn Diggs, RN - Fully Assessed 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 He is requesting caths. He states that he needs 16F. Please assist, thank you Sheree Perdomo RN 02/20/2024 9:26 AM Signed Letter sent to [address] [place] [address] on 02/18/[address] Mejia office. Sheree [...] Encounter Status:Closed by SOURAV VALLES on 02/19/24 [facility] CNPN Telephone ([employer]) FAHAD SOTELO ([id number]) 1950 M Date Time Provider Department 02/18/24 [...] today, catheters ordered and faxed electronically to [address] [place] [address]. Aislinn Montalvo RN BSN Allergies As of [...] Status:Closed by LUZMA SCOTT on 02/18/24 Normal [facility] CBC (INCLUDES DIFF/PLT)on Basophils (Bld) [#/Vol] 0.033 10*3/uL Normal 0-200 [facility] Comment on above: Performed By: #### 7 600, 72950, 6399 #### [facility] of [place] [address] Blasting Entryman: Nathanael Nguyen MD Basophils/100 WBC (Bld) 0.5 % Normal [facility] Comment on above: Performed By: #### 7 600, 21317, 6399 #### [facility] [place] [address] Blasting Entryman: Nathanael Nguyen MD Eosinophils (Bld) [#/Vol] 0.052 10*3/uL Normal 15-500 [facility] Comment on above: Performed By: #### 7 600, 14416, 6399 #### [facility] [place] [address] Blasting Entryman: Nathanael Nguyen MD Eosinophils/100 WBC (Bld) 0.8 % Normal [facility] Comment on above: Performed By: #### 7 600, 68930, 6399 #### [facility] [place] [address] Blasting Entryman: Nathanael Nguyen MD Erythrocyte distribution width (RBC) [Ratio] 11.8 % Normal 11.0-15.0 [facility] Comment on above: Performed By: #### 7 600, 60496, 6399 #### [facility] of [address] [place] [address] Blasting Entryman: Nathanael Nguyen MD Hematocrit (Bld) [Volume fraction] 47.9 % Normal 38.5-50.0 [facility] Comment on above: Performed By: #### 7 600, 81259, 6399 #### [facility] of [place] [address] Blasting Entryman: Nathanael Nguyen MD Hemoglobin (Bld) [Mass/Vol] 16.1 g/dL Normal 13.2-17.1 [facility] Comment on above: Performed By: #### 7 600, 19167, 6399 #### [facility] [place] [address] Blasting Entryman: Nathanael Nguyen MD Lymphocytes (Bld) [#/Vol] 1.892 10*3/uL Normal 850-3900 [facility] Comment on above: Performed By: #### 7 600, 56651, 6399 #### [facility] [place] [address] Blasting Entryman: Nathanael Nguyen MD Lymphocytes/100 WBC (Bld) 29.1 % Normal [facility] Comment on above: Performed By: #### 7 600, 54610, 6399 #### [facility] [place] [address] Blasting Entryman: Nathanael Nguyen MD MCH (RBC) [Entitic mass] 31.0 pg Normal 27.0-33.0 [facility] Comment on above: Performed By: #### 7 600, 61102, 6399 #### [facility] [place] [address] Blasting Entryman: Nathanael Nguyen MD MCHC (RBC) [Mass/Vol] 33.6 [...] clinical condition. Performed By: #### 7 600, , 6399 #### [facility] [place] [address] Blasting Entryman: Nathanael Nguyen MD MCV (RBC) [Entitic vol] 92.3 fL Normal 80.0-100.0 [facility] Comment on above: Performed By: #### 7 600, , 6399 #### [facility] [place] [address] Blasting Entryman: Nathanael Nguyen MD Monocytes (Bld) [#/Vol] 0.585 10*3/uL Normal 200-950 [facility] Comment on above: Performed By: #### 7 600, , 6399 #### [facility] [place] [address] Blasting Entryman: Nathanael Nguyen MD Monocytes/100 WBC (Bld) 9.0 % Normal [facility] Comment on above: Performed By: #### 7 600, , 6399 #### [facility] [place] [address] Blasting Entryman: Nathanael Nguyen MD Neutrophils (Bld) [#/Vol] 3.939 10*3/uL Normal 7599-1022 [facility] Comment on above: Performed By: #### 7 600, , 6399 #### [facility] [place] [address] Blasting Entryman: Nathanael Nguyen MD Neutrophils/100 WBC (Bld) 60.6 % Normal [facility] Comment on above: Performed By: #### 7 600, 60010, 6399 #### [facility] [place] [address] Blasting Entryman: Nathanael Nguyen MD Platelet mean volume (Bld) [Entitic vol] 10.7 fL Normal 7.5-12.5 [facility] Comment on above: Performed By: #### 7 600, 06955, 6399 #### [facility] of [address], [address] [place] [address] Blasting Entryman: Nathanael Nguyen MD Platelets (Bld) [#/Vol] 201 10*3/uL Normal 140-400 [facility] Comment on above: Performed By: #### 7 600, 25800, 6399 #### [facility] of [address], [address] [place] [address] Blasting Entryman: Nathanael Nguyen MD RBC (Bld) [#/Vol] 5.19 10*6/uL Normal 4.20-5.80 [facility] Comment on above: Performed By: #### 7 600, 70666, 6399 #### [facility] of [address], [address] [place] [address] Blasting Entryman: Nathanael Nguyen MD WBC (Bld) [#/Vol] 6.5 10*3/uL Normal 3.8-10.8 [facility] Comment on above: Performed By: #### 7 600, 22162, 6399 #### [facility] of [address], [address] [place] [address] Blasting Entryman: Nathanael Nguyen MD [facility] 02-16-2024 Albumin [Mass/Vol] 4.3 g/dL Normal 3.6-5.1 [facility] Comment on above: Performed By: #### 7 600, 95366, 6399 #### [facility] [place] [address] Blasting Entryman: Nathanael Nguyen MD Albumin/Globulin [Mass ratio] 2.0 {ratio} Normal 1.0-2.5 [facility] Comment on above: Performed By: #### 7 600, 07946, 6399 #### [facility] [place] [address] Blasting Entryman: Nathanael Nguyen MD ALP [Catalytic activity/Vol] 58 U/L Normal 35-144 [facility] Comment on above: Performed By: #### 7 600, 81578, 6399 #### [facility] of [address] [place] [address] Blasting Entryman: Nathanael Nguyen MD ALT [Catalytic activity/Vol] 14 U/L Normal 9-46 [facility] Comment on above: Performed By: #### 7 600, 83577, 6399 #### [facility] of [address], [address] [place] [address] Blasting Entryman: Nathanael Nguyen MD AST [Catalytic activity/Vol] 13 U/L Normal 10-35 [facility] Comment on above: Performed By: #### 7 600, 16871, 6399 #### [facility] of [address], [address] [place] [address] Blasting Entryman: Nathanael Nguyen MD Bilirubin [Mass/Vol] 0.7 mg/dL Normal 0.2-1.2 [facility] Comment on above: Performed By: #### 7 600, 02737, 6399 #### [facility] of [address], [address] [place] [address] Blasting Entryman: Nathanael Nguyen MD BUN/CREATININE RATIO SEE NOTE: Normal 6-22 [facility] Comment on above: Result Comment: Not Reported: BUN and Creatinine are within reference range. Performed By: #### 7 600, 27118, 6399 #### [facility] of [address], [address] [place] [address] Blasting Entryman: Nathanael Nguyen MD Calcium [Mass/Vol] 9.0 mg/dL Normal 8.6-10.3 [facility] Comment on above: Performed By: #### 7 600, 21274, 6399 #### [facility] of [address], [address] [place] [address] Blasting Entryman: Nathanael Nguyen MD Chloride [Moles/Vol] 103 mmol/L Normal 98-110 [facility] Comment on above: Performed By: #### 7 600, 17744, 6399 #### [facility] of [address], [address] [place] [address] Blasting Entryman: Nathanael Nguyen MD CO2 [Moles/Vol] 31 mmol/L Normal 20-32 [facility] Comment on above: Performed By: #### 7 600, 45424, 6399 #### [facility] [place] [address] Blasting Entryman: Nathanael Nguyen MD Creatinine [Mass/Vol] 0.75 mg/dL Normal 0.70-1.[address] [facility] Comment on above: Performed By: #### 7 600, 69710, 6399 #### [facility] [place] [address] Blasting Entryman: Nathanael Nguyen MD GFR/1.73 sq M.predicted among non-blacks MDRD (S/P/Bld) [Vol rate/Area] 94 mL/min/{1.73_m2} Normal > OR = 60 [facility] Comment on above: Performed By: #### 7 600, 06688, 6399 #### [facility] [place] [address] Blasting Entryman: Nathanael Nguyen MD Globulin (S) [Mass/Vol] 2.2 g/dL Normal 1.9-3.7 [facility] Comment on above: Performed By: #### 7 600, 75605, 6399 #### [facility] [place] [address] Blasting Entryman: Nathanael Nguyen MD Glucose [Mass/Vol] 107 mg/dL High 65-99 [facility] Comment on above: Result Comment: Fasting reference interval For someone without known diabetes, a glucose value between 100 and 125 mg/dL is consistent with prediabetes and should be confirmed with a follow-up test. Performed By: #### 7 600, 74736, 6399 #### [facility] [place] [address] Blasting Entryman: Nathanael Nguyen MD Potassium [Moles/Vol] 4.3 mmol/L Normal 3.5-5.[address] [facility] Comment on above: Performed By: #### 7 600, 53909, 6399 #### [facility] [place] [address] [place] [address] Blasting Entryman: Nathanael Nguyen MD Protein [Mass/Vol] 6.5 g/dL Normal 6.1-8.1 [facility] Comment on above: Performed By: #### 7 600, 83414, 6399 #### [facility] of [address], [address] [place] [address] Blasting Entryman: Nathanael Nguyen MD Sodium [Moles/Vol] 140 mmol/L Normal 135-146 [facility] Comment on above: Performed By: #### 7 600, 94387, 6399 #### [facility] [place] [address] Blasting Entryman: Nathanael Nguyen MD Urea nitrogen [Mass/Vol] 13 mg/dL Normal 7-25 [facility] Comment on above: Performed By: #### 7 600, 70012, 6399 #### [facility] of [address], [address] [place] [address] Blasting Entryman: Nathanael Nguyen MD LIPID PANEL, [facility] Cholesterol [Mass/Vol] 129 mg/dL Normal <200 [facility] Comment on above: Order Comment: FASTI NG:YES FASTING: YES Performed By: #### 7 600, 05719, 6399 #### [facility] [place] [address] Blasting Entryman: Nathanael Nguyen MD Cholesterol in HDL [Mass/Vol] 43 mg/dL Normal > OR = 40 [facility] Comment on above: Order Comment: FASTI NG:YES FASTING: YES Performed By: #### 7 600, 41946, 6399 #### [facility] [place] [address] Blasting Entryman: Nathanael Nguyen MD Cholesterol in LDL [Mass/Vol] [...] LDL-C. Talha SS et al. MANPREET. 2013;310(19): 5747-8218 (http://education.[employer]/faq/QEC885) Performed By: #### 7 600, 00013, 6399 #### [facility] [address], [address] [place] [address] Blasting Entryman: Nathanael Nguyen MD Cholesterol.total/Cho lesterol in HDL [Mass ratio] 3.0 {ratio} Normal <5.0 [facility] Comment on above: Order Comment: FASTI NG:YES FASTING: YES Performed By: #### 7 600, 28214, 6399 #### [facility] [address], [address] [place] [address] Blasting Entryman: Nathanael Nguyen MD NON HDL CHOLESTEROL 86 mg/dL (calc) Normal <130 [facility] Comment on above: Order Comment: FASTI NG:YES FASTING: YES Result Comment: For patients with diabetes plus 1 major ASCVD risk factor, treating to a non-HDL-C goal of <100 mg/dL (LDL-C of <70 mg/dL) is considered a therapeutic option. Performed By: #### 7 600, 74432, 6399 #### [facility] [place] [address] Blasting Entryman: Nathanael Nguyen MD Triglyceride [Mass/Vol] 97 mg/dL Normal <150 [facility] Comment on above: Order Comment: FASTI NG:YES FASTING: YES Performed By: #### 7 600, 33949, 6399 #### [facility] [place] [address] Blasting Entryman: Nathanael Nguyen MD PSA, TOTALon 02-16-2024 PSA, [...] of disease. Performed By: #### 7 600, 36627, 6399 #### [facility] [address], [address] [place] [address] Blasting Entryman: Nathanael Nguyen MD Urine Cultureon 01-25-2024 Bacteria identified Cx Nom (U) 25,000 colonies/ml mixed bacterial skin contaminants 2 Days PERFORMED BY: [place] [address] PATHOLOGIST DIRECTOR OF CLINICAL EDUCATION JENNI GREEN M.D. Normal [facility] Comment on above: Performed By: #### C UU #### [address] CNOVon 01-17-2024 CNOV Office Visit (UROLAV ) FAHAD SOTELO ([id number]) 1950 M Date Time Provider Department 01/17/24 [...] Diagnosis Date CAD (coronary artery disease) 2005 MT in 1997. Had a stent placed in 2008 c/b coronary artery dissection and that lead to a CABG x1 in 2008 Former smoker quit 1997 Hyperlipidemia Hypertension Intermittent self-catheterization of bladder Urge incontinence of urine PAST SURGICAL HISTORY Procedure Laterality Date ARTHRP KNE CONDYLEANDPLATU MEDIALANDLAT COMPARTMENTS 10/30/2018 right CABG (1) VEIN GRAFT AND ARTERIAL GRAFT 2008 coronary dissection during stent placement [facility] INNERVATED FACIAL NRV UNIL CYSTO.PANENDO 11/24/2021 Dr. Dye CYSTO.PANENDO 05/31/2022 CYSTO.PANENDO N/A 06/04/2023 CYSTOSCOPY 03/29/2017 Dr. Fady Dye - [facility] LEFT HEART CATH,PERCUTANEOUS 05/11/2003 [...] 03/29/2017 Procedure done by Nava Back LPN, [facility] Social History Tobacco Use Smoking status: [...] 06/29/2017 0.88 (more content not included)... Normal [facility] BACTERIA UR CULTon 12-13 [facility] BACTERIA UR CULT ORGANISM ID: 1 Abnormal [facility] BACTERIA UR CULT >=100,000 CFU/ml Escherichia coli [facility] BACTERIA UR CULT ORGANISM ID: 1 (ESCHERICHIA COLI) -- ANTIBIOTIC INTERPRETATION RL STATUS REFERENCE RANGE -- Abnormal [facility] BACTERIA UR CULT Ampicillin S <=2 F Susceptible <=8 , Intermediate >8 , Resistant >16 Abnormal [facility] BACTERIA UR CULT Cefazolin S <=4 F Susceptible 0-16 , Intermediate <0 or >16 , Resistant >16 Abnormal [facility] BACTERIA UR CULT For uncomplicated urinary tract infections, cefazolin results can be used to predict susceptibility or resistance to cephalexin. [facility] BACTERIA UR CULT Ceftriaxone S <=1 F Susceptible <=1 , Intermediate >1 , Resistant >=4 Abnormal [facility] BACTERIA UR CULT Cefepime S <=1 F Susceptible <=2 , Susceptible-Dose Dependent >2 , Resistant >=16 Abnormal [facility] BACTERIA UR CULT Ertapenem S <=0.5 F Susceptible <=0.5 , Intermediate >.5 , Resistant >1 Abnormal [facility] BACTERIA UR CULT Meropenem S <=0.25 F Susceptible <=1 , Intermediate >1 , Resistant >2 Abnormal [facility] BACTERIA UR CULT Ampicillin/Sulbact S <=2 F Susceptible <=8 , Intermediate >8 , Resistant >16 Abnormal [facility] BACTERIA [facility] C[facility] Piperacillin/Tazoba c S <=4 F Susceptible <16 , Susceptible-Dose Dependent >=16 , Resistant >=32 Abnormal [facility] BACTERIA [facility] Gentamicin S <=1 F Susceptible <=2 , Intermediate >2 , Resistant >=8 Abnormal [facility] BACTERIA UR CULT Tobramycin S <=1 F Susceptible <4 , Intermediate >=4 , Resistant >=8 Abnormal [facility] BACTERIA UR CULT Trimeth sulfameth S <=20 F Susceptible <=40 , Resistant >40 Abnormal [facility] BACTERIA UR CULT Ciprofloxacin S <=0 .25 F Susceptible <0.5 , Intermediate >=.5 , Resistant >=1 Abnormal [facility] BACTERIA UR CULT Nitrofurantoin S < =16 F Susceptible <=32 , Intermediate >32 , Resistant >64 Abnormal [facility] Interpretation and review of laboratory results Abnormal [facility] Original Ordering Provider: LOUIE SALOMON [facility] 12-14-2023 [facility] Telephone (UROLMN) FAHAD SOTELO ([id number]) 1950 M Date Time Provider Department 12/14/23 DAIJA LARES [facility] During your visit today, we recorded the following information about you: Daija Lares PA-C 12/14/2023 3:31 PM Signed Fahad Sotelo [id number] Called patient re: recent urine culture with [...] Encounter Status:Closed by DAIJA LARES on 12/14/23 Normal [facility] Bacteria Ur Culton Bacteria identified Cx [...] , Intermediate >32 , Resistant >64 Abnormal [facility] Comment on above: Performed By: #### 6 ####[facility] [id number] [place] [id number] [place] CNOVon 12-12-2023 CNOV Office Visit (URFMOB ) FAHAD SOTELO ([id number]) 1950 M Date Time Provider Department 12/12/23 1:30 PM LOUIE SALOMON During your visit today, we recorded the following information about you: Pulse Blood pressure 63/minute 130/72 Snatiarabella FelaARACELI 12/12/2023 1:23 PM Signed Post Void Residual [...] Diagnosis Date CAD (coronary artery disease) 2004 MT in 1997. Had a stent placed in 2008 c/b coronary artery dissection and that lead to a CABG x1 in 2008 Former smoker quit 1997 Hyperlipidemia Hypertension Intermittent self-catheterization of bladder Urge incontinence of urine PAST SURGICAL HISTORY Procedure Laterality Date ARTHRP KNE CONDYLEANDPLATU MEDIALANDLAT COMPARTMENTS 10/30/2018 right CABG (1) VEIN GRAFT AND ARTERIAL GRAFT 2009 coronary dissection during stent placement CHEMODNR[facility]J [facility] INNERVATED FACIAL NRV UNIL CYSTO.PANENDO 11/24/2021 Dr. Dye CYSTO.PANENDO 05/31/2022 CYSTO.PANENDO N/A 06/04/2023 CYSTOSCOPY 03/29/2017 Dr. Fady CROUCH REJ [facility] LEFT HEART CATH,PERCUTANEOUS 05/11/2003 [...] 03/29/2017 Procedure done by Nava Back LPN, LILLIE LEE [facility] Social History Tobacco Use Smoking status: [...] 0.31 Creatinin (more content not included)... Normal [facility] UA DIP, URINE (POC)on 2023 BILIRUBIN UA (POCT) Negative Negative [facility] CLARITY UA (POCT) Clear [facility] COLOR UA (POCT) Yellow [facility] GLUCOSE UA (POCT) Negative Negative mg/dL [facility] Hemoglobin Ql (U) Trace-intact Abnormal Negative [facility] Interpretation and review of laboratory results Abnormal [facility] KETONE UA (POCT) Negative Negative mg/dL [facility] LEUKOCYTES UA (POCT) Moderate Abnormal Negative [facility] NITRITE UA (POCT) Positive Abnormal Negative [facility] PH UA (POCT) 6.0 4.5 - 8.0 [facility] Protein Ql (U) Trace Abnormal Negative mg/dL [facility] SPECIFIC GRAVITY UA (POCT) 1.025 1.005 - 1.030 [facility] UROBILINOGEN UA (POCT) 0.2 Normal E.U./dL [facility] Location:[facility], [address], [place], [address] [place] [address] POINT OF CARE [facility] 11-13-2023 CNPN Telephone (UROLMN) FAHAD SOTELO ([id number]) 1950 M Date Time Provider Department 11/13/23 [...] PA-C 11/13/2023 10:49 AM Signed Fahad Sotelo [id number] Returned call to patient. Got up 7 [...] Reaction(s): Xerostomia Date Reviewed: 08/31/2023 Reviewed by: Marhta Kelly, RN - Fully Assessed Reason for Visit: [...] Encounter Status:Closed by DAIJA LARES on 11/13/23 [facility] ANES POSTPROC EVALon 024 ANES POSTPROC EVAL HNO ID: [id number] Author: ARIANNA HAYNES MD Service: Anesthesiology Author Type: Anesthesiologist Type: Anesthesia Postprocedure Evaluation Filed: 08/02/2023 09:55 Note Text: POST ANESTHESIA EVALUATION NOTE : 1950 Procedure Summary Date: 08/02/23 Room / Location: [address] / [facility] Anesthesia Start: 903 Anesthesia Stop: [...] August 02, 2023 TIME: 9:55 AM CSN: [id number] [facility] ANES PRE-OPon 08-02-2023 ANES PRE-OP HNO ID: [id number] Author: ARIANNA HAYNES MD Service: Anesthesiology Author Type: Anesthesiologist Type: Anesthesia Preprocedure Evaluation Filed: 08/02/2023 08:03 Note Text: ANESTHESIOLOGY DAY OF SURGERY NOTE : 1950 Procedure Information Date/Time: 08/02/2345 Procedures: DILATION OF URETHRAL STRICTURE BY PASSAGE OF SOUND OR URETHRAL DILATOR, MALE; INITIAL (Bladder) CYSTOURETHROSCOPY W/INJECTION(S) FOR CHEMODENERVATION OF THE BLADDER (Urethra) Location: [facility] Surgeons: Louie Salomon MD Estimated body mass [...] and consent discussed: yes. Patient / Responsible Alliance Party agrees to proceed: yes Patient / [...] August 02, 2023 TIME: 7:58 AM CSN: [id number] [facility] OPERATIVE NOon 08-02-2023 OPERATIVE NO HNO ID: [id number] Author: LOUIE SALOMON MD Service: Urology Author Type: Physician Type: Operative Report Filed: 08/02/2023 09:44 Note Text: OPERATIVE/PROCEDURE REPORT LOG ID: [id number] Surgery/Procedure Date: 08/02/2023 Incision/Procedure Start Time: 9:21 AM Incision Close/Procedure End Time: 9:37 AM Surgeon(s)/Procedurali st(s) and Financial Sales Assistant(s): Surgeon(s) and Role: * Louie Salomon MD [...] CIC QID Repeat VUDS in 4-6 weeks [facility] 07-11-2023 [facility] Telephone (URFMOB) FAHAD SOTELO ([id number]) 1950 M Date Time Provider Department 07/11/23 LOUIE SALOMON URLISSET During your visit today, [...] Date Reviewed: 07/05/2023 Reviewed by: Rigo Cano APRN.SAMPLE BOX MAKER - Fully Assessed Order(s):cephALEXin (KEFLEX) 500 mg [...] Encounter Status:Closed by LOUIE SALOMON on 07/11/23 [facility] 06-20-2023 [facility] Office Visit (URFMOB ) FAHAD SOTELO ([id number]) 1950 M Date Time Provider Department 06/20/23 10:30 AM LOUIE SALOMON URZACK During your visit today, we recorded the following information about you: Pulse Blood pressure 64/minute 128/70 Leoncio Zavala MA 06/20/2023 3:02 PM Signed Post Void Residual done on patient with 0 cc residual volume remaining. notified. DIAZ Edward Molly, MD 06/20/2023 3:02 PM Addendum [facility] UROLOGY NEW PATIENT [...] Diagnosis Date CAD (coronary artery disease) 2005 MT in 1997. Had a stent placed in [...] 2009 coronary dissection during stent placement CHE[facility]NR[facility]J [facility] INNERVATED FACIAL NRV UNIL CYSTO.PANENDO 11/24/2021 Dr. Dye CYSTO.PANENDO 05/31/2022 CYSTO.PANENDO N/A 06/04/2023 CYSTOSCOPY 03/29/2017 Dr. Fady Dye - LILLIE LEE [facility] LEFT HEART CATH,PERCUTANEOUS 05/11/2003 [...] 03/29/2017 Procedure done by Nava Back LPN, LILLIE LEE [facility] FAMILY HISTORY FAMILY HISTORY Problem Relation [...] MAGNESIA ORAL) (more content not included)... Normal [facility] UA DIP, URINE (POC)on 2023 BILIRUBIN UA (POCT) Negative Negative [facility] CLARITY UA (POCT) Clear [facility] COLOR UA (POCT) Yellow [facility] GLUCOSE UA (POCT) Negative Negative mg/dL [facility] Hemoglobin Ql (U) Negative Negative [facility] Interpretation and review of laboratory results Abnormal [facility] KETONE UA (POCT) Negative Negative mg/dL [facility] LEUKOCYTES UA (POCT) Small Abnormal Negative [facility] NITRITE UA (POCT) Negative Negative [facility] PH UA (POCT) 6.0 4.5 - 8.0 [facility] Protein Ql (U) Negative Negative mg/dL [facility] SPECIFIC GRAVITY UA (POCT) 1.025 1.005 - 1.030 [facility] UROBILINOGEN UA (POCT) 0.2 Normal E.U./dL [facility] Location:[facility], [address] [facility], [place], [place], [address] [facility] POINT OF CARE [facility] XR SHOULDER ORTHO 4V AP/TRUE AP/LAT/OUTLET LEFTon 06-23-2022 [facility] XR Shoulder - left 4 Viewson 06-23-2022 IMPRESSION: Postoperative and degenerative changes, as described. Liner Man: DEEPIKA Transcribe Date/Time: Jun 23 2022 4:32P Dictated by : SILVA RILEY MD This examination was interpreted and the report reviewed and electronically signed by: SILVA RILEY MD on Jun 23 2022 4:33PM [facility] DIVISION OF RADIOLOGY * * [...] space is maintained. DIVISION OF RADIOLOGY Provider, Devan Ziegler [facility] - 06/23/2022 * * *Final Report* * * DATE OF EXAM: Jun 23 2022 1:33PM SARAHX [id number] - XR SHLDR 4V AP/LUCITA/LAT/OUTLET LT [...] IMPRESSION: Postoperative and degenerative changes, as described. Liner Man: PSCB Transcribe Date/Time: Jun 23 2022 4:32P Dictated by : SILVA RILEY MD This examination was interpreted and the report reviewed and electronically signed by: SILVA RILEY MD on Jun 23 2022 4:33PM EST [facility] Radiology Study observation (narrative) [facility] XR Shoulder - left 4 ViewsOr dered By: [facility] Provider on 06-23-2022 [facility] ECHOCARDIO M/2D COMPLETEon 0 06-07-2022 ECHOCARDIO M/2D COMPLETE Patient: FAHAD SOTELO Exam Date: 06/07/2022 : 1950 Gender:M Ordering : DR TAMANNA JOSHUA M.D. Admission #: [id number] Family : DR STANTON VELASCO M.D. Order #: [id number] CLICK HERE TO VIEW EXAM ECHOCARDIOGRAM REPORT [...] Joshua M.D. on 06/07/2022 at 15:50 Normal [facility] UA DIP, URINE (POC)on 2022 BILIRUBIN UA (POCT) Negative Negative [facility] CLARITY UA (POCT) Clear [facility] COLOR UA (POCT) Yellow [facility] GLUCOSE UA (POCT) Negative Negative mg/dL [facility] HEMOGLOBIN/BLOOD UA (POCT) Negative Negative [facility] KETONE UA (POCT) Negative Negative mg/dL [facility] LEUKOCYTES UA (POCT) Negative Negative [facility] NITRITE UA (POCT) Negative Negative [facility] PH UA (POCT) 5.5 4.5 - 8.0 [facility] Protein Ql (U) Negative Negative mg/dL [facility] SPECIFIC GRAVITY UA (POCT) <=1.005 Abnormal 1.005 - 1.030 [facility] UROBILINOGEN UA (POCT) 0.2 E.U./dL Normal E.U./dL [facility] CREATININEon 05-19-2022 Creatinine [Mass/Vol] 0.92 mg/dL Normal 0.70-1.30 [facility] [place] [facility] Comment on above: Performed By: #### C ERMA #### [facility] [address] [address] [address] Joey Montalvo EGFR-AF EQUATORIAL GUINEAN >60 Normal >=60 [facility] Comment on above: Performed By: #### C ERMA #### [facility] [address] [address] [address] Joey Montalvo EGFR-NON AF EQUATORIAL GUINEAN >60 Normal >=60 [facility] [place] [facility] Comment on above: Performed By: #### C ERMA #### [facility] [address] CHEST W CONon [...] by: GERSON AMADO Date: 2022-05-19 11:14 Normal [facility] XR HIP RT 2 3V WO PELVISon [...] CARMEN BURGOS Date: 2022-04-14 23:20 Normal [facility] [place] [facility] CULTURE URINEon 03-25-2022 CULTURE URINE Isolate 1 [...] Trimethoprim/Sulfameth oxazole <=20 S F Normal [facility] [place] [facility] Comment on above: Performed By: #### U RCX ####[facility] [address] [place], [place] [address]Dr. Joey Montalvo CBC AUTO DIFFon 03-23-2022 BASO # 0.1 103/ul Normal 0.0-0.1 [facility] [place] [facility] Comment on above: Performed By: #### C BC ####[facility] [address] [place], [place] [address]Dr. Joey Montalvo Basophils/100 WBC (Bld) 0.7 % Normal 0.2-2.0 [facility] [place] [facility] Comment on above: Performed By: #### C BC ####[facility] Ngzheon[address] [place], [place] [address]Dr. Joey Montalvo EO # 0.1 103/ul Normal 0.0-0.7 [facility] [place] [facility] Comment on above: Performed By: #### C BC ####[facility] [address] [place], [place] [address]Dr. Joey Montalvo Eosinophils/100 WBC (Bld) 1.2 % Normal 0.9-7.0 [facility] Comment on above: Performed By: #### C BC ####[facility] [address] [place], [place] [address]Dr. Joey Montalvo Erythrocyte distribution width (RBC) [Ratio] 12.4 % Normal 11.0-15.0 [facility] Comment on above: Performed By: #### C BC ####[facility] [address] [place], [place] [address]Dr. Joey Montalvo Hematocrit (Bld) [Volume fraction] 45.2 % Normal 42.0-54.0 [facility] [place] [facility] Comment on above: Performed By: #### C BC ####[facility] [address] [place], [place] [address]Dr. Joey Montalvo Hemoglobin (Bld) [Mass/Vol] 15.5 g/dL Normal 14.0-18.0 [facility] Comment on above: Performed By: #### C BC ####[facility] J[address] [place], [place] [address]Dr. Joey Selvin IG # 0.05 10e3/ul Critically high 0.00-0.03 [facility] Comment on above: Performed By: #### C BC ####[facility] R[address]con[address] [place], [place] [address]Dr. Joey Montalvo IG % 0.7 % Critically high 0.0-0.[address] [facility] Comment on above: Performed By: #### C BC ####[facility] Caw[address] [place], [place] [address]Dr. Joey Montalvo LYMPH # 2.0 103/ul Normal 1.2-3.8 [facility] Comment on above: Performed By: #### C BC ####[facility] Qnbfoadjyf[address] [place], [place] [address]Dr. Joey Montalvo Lymphocytes/100 WBC (Bld) 29.0 % Normal 20.5-60.0 [facility] Comment on above: Performed By: #### C BC ####[facility] F[address]pcx[address] [place], [place] [address]DrUna Montalvo MANUAL DIFF REQ NO Normal [facility] Comment on above: Performed By: #### C BC ####[facility] [address] [place] [address]DrUna Montalvo MCH (RBC) [Entitic mass] 31.0 pg Normal 25.9-34.0 [facility] Comment on above: Performed By: #### C BC ####[facility] [address] [address]DrUna Montalvo MCHC (RBC) [Mass/Vol] 34.3 g/dL Normal 29.9-35.2 [facility] [place] [facility] Comment on above: Performed By: #### C BC ####[facility] J[address]beyidb[address] [place], [place] [address]DrUna Montalvo MCV (RBC) [Entitic vol] 90.4 fL Normal 80.0-94.0 [facility] Comment on above: Performed By: #### C BC ####[facility] [address] [place], [place] [address]DrUna Montalvo MONO # 0.8 103/ul Normal 0.3-0.8 [facility] Comment on above: Performed By: #### C BC ####[facility] U[address]vfr[address]ps[address] [place], [place] [address]DrUna Montalvo Monocytes/100 WBC (Bld) 12.1 % Critically high 1.7-12.0 [facility] Comment on above: Performed By: #### C BC ####[facility] [address] [place], [place] [address]DrUna Montalvo NEUT # 3.8 103/ul Normal 1.4-6.5 [facility] Comment on above: Performed By: #### C BC ####[facility] Kosisfmc[address] [place], [place] [address]DrUna Montalvo Neutrophils/100 WBC (Bld) 56.3 % Normal 43.0-75.0 [facility] Comment on above: Performed By: #### C BC ####[facility] [address]pmma[address] [place], [place] [address]DrUna Montalvo Platelet mean volume (Bld) [Entitic vol] 9.5 fL Normal 9.5-13.5 [facility] Comment on above: Performed By: #### C BC ####[facility] [address] [place], [place] [address]LvUna Montalvo PLT 216 103/ul Normal 150-450 [facility] [place] [facility] Comment on above: Performed By: #### C BC ####[facility] [address] [place], [place] [address]FwUna Montalvo RBC 5.00 106/ul Normal 4.70-6.10 [facility] Comment on above: Performed By: #### C BC ####[facility] [address] [place], [place] [address]XqUna Montalvo WBC 6.8 103/ul Normal 4.0-11.0 [facility] Comment on above: Performed By: #### C BC ####[facility] [address] [place], [place] [address]Fx[address] STROKE HEAD WOon 03-23-19 CT [...] by: KIM PARK Date: 2022-03-23 15:03 Normal [facility] CTA HEAD WO W CONon 03-23-19 CTA [...] stenosis. Bilateral intracranial ICAs, MCA's, ACAs and geodesist are patent. Basilar artery is patent. Intracranial vertebral arteries patent. Dural venous sinuses grossly patent. IMPRESSION: No intracranial large vessel occlusion. 50% left cervical ICA stenosis. Electronically authenticated by: ALEXANDRE SWENSON Date: 2022-03-23 16:30 Normal [facility] ER URINE PROFILEon 3 Bilirubin Ql (U) Negative Normal NEGATIVE [facility] Comment on above: Performed By: #### U MICRO, ERUR ####[facility] [address] [place], [place] [address]Dr. Joey Montalvo Clarity (U) CLEAR Normal CLEAR [facility] Comment on above: Performed By: #### U MICRO, ERUR ####[facility] Vfo[address]xx[address] [place], [place] [address]Dr. oJey Montalvo Color (U) LT. YELLOW Normal YELLOW [facility] Comment on above: Performed By: #### U MICRO, ERUR ####[facility] [address]jp[address] [place], [place] [address]Dr. Joey MEDRANOD A micrscopic examination will be performed if indicated. Normal [facility] Comment on above: Performed By: #### U MICRO, ERUR ####[facility] [address] [address]Dr. Joey Montalvo Glucose Ql (U) Negative Normal NEGATIVE [facility] Comment on above: Performed By: #### U MICRO, ERUR ####[facility] [address] [address]Dr. Joey Montalvo Hemoglobin Ql (U) TRACE-INTACT Abnormal NEGATIVE [facility] Comment on above: Performed By: #### U MICRO, ERUR ####[facility] [address] [address]Dr. Joey Montalvo Ketones Ql (U) Negative Normal NEGATIVE [facility] Comment on above: Performed By: #### U MICRO, ERUR ####[facility] [address] [address]Dr. Joey Montalvo LEUKOCYTES SMALL Abnormal NEGATIVE [facility] Comment on above: Performed By: #### U MICRO, ERUR ####[facility] [address] [address]Dr. Joey Montalvo Nitrite Ql (U) Negative Normal NEGATIVE [facility] Comment on above: Performed By: #### U MICRO, ERUR ####[facility] [address]ther[address] [place], [place] [address]Dr. Joey Montalvo pH (U) 6.0 [pH] Normal 5-9 [facility] Comment on above: Performed By: #### U MICRO, ERUR ####[facility] [address] [place], [place] [address]Dr. Joey Montalvo SPEC GRAVITY 1.015 Normal 1.005-<=1.02 5 [facility] Comment on above: Performed By: #### U MICRO, ERUR ####[facility] [address] [place], [place] [address]Dr. Joey Montalvo UA PROTEIN Negative Normal NEGATIVE/ TRACE [facility] Comment on above: Performed By: #### U MICRO, ERUR ####[facility] [address] [place], [place] [address]Dr. Joey Montalvo UR MICRO IND INDICATED Normal [facility] Comment on above: Performed By: #### U MICRO, ERUR ####[facility] [address] [place], [place] [address]Dr. Joey Montalvo Urobilinogen Qn (U) 0.2 {Selena'U}/dL Normal 0.2 - 1. 0 [facility] Comment on above: Performed By: #### U MICRO, ERUR ####[facility] [address] [place], [place] [address]Dr. Joey Montalvo PROF 14(COMP METB)on 023 Albumin [Mass/Vol] 3.5 g/dL Normal 3.4-5.0 [facility] Comment on above: Performed By: #### T CANDY, HSTROPN, CMP #### [facility] [address] [address] [address] Joey Montalvo Albumin/Globulin [Mass ratio] 1.0 {ratio} Normal [facility] Comment on above: Performed By: #### T CANDY, HSTROPN, CMP #### [facility] [address] [place] [address] Dr. Joey Montalvo ALP [Catalytic activity/Vol] 68 U/L Normal 46-116 [facility] Comment on above: Performed By: #### T CANDY, HSTROPN, CMP #### [facility] [address] [place] [address] Dr. Joey Montalvo ALT [Catalytic activity/Vol] 21 U/L Normal 16-63 [facility] Comment on above: Performed By: #### T CANDY, HSTROPN, CMP #### [facility] [address] [address] [address] Joey Montalvo Anion gap [Moles/Vol] 11.6 mmol/L Normal [facility] Comment on above: Performed By: #### T CANDY, HSTROPN, CMP #### [facility] [address] [address] [address] Joey Montalvo AST [Catalytic activity/Vol] 14 U/L Critically low 15-37 [facility] Comment on above: Performed By: #### T SH, HSTROPN, CMP #### [facility] [address] [address] [address] Joey Montalvo Bilirubin [Mass/Vol] 0.4 mg/dL Normal 0.2-1.0 [facility] Comment on above: Performed By: #### T CANDY, HSTROPN, CMP #### [facility] [address] [address] [address] Joey Montalvo Calcium [Mass/Vol] 9.1 mg/dL Normal 8.5-10.1 [facility] Comment on above: Performed By: #### T CANDY HSTROPN, CMP #### [facility] [address] [place] [address] Dr. Joey Montalvo Chloride [Moles/Vol] 104 mmol/L Normal 98-107 [facility] Comment on above: Performed By: #### T CANDY HSTROPN, CMP #### [facility] [address] [place] [address] Dr. Joey Montalvo CO2 [Moles/Vol] 29.6 mmol/L Normal 21.0-32.0 [facility] Comment on above: Performed By: #### T CANDY HSTROPDanelle, CMP #### [facility] [address] [place] [address] Dr. Joey Montalvo Creatinine [Mass/Vol] 0.68 mg/dL Critically low 0.70-1.30 [facility] Comment on above: Performed By: #### T CANDY HSTROPN, CMP #### [facility] [address] [place] [address] Dr. Joey Montalvo EGFR-AF EQUATORIAL GUINEAN >60 Normal >=60 [facility] Comment on above: Performed By: #### T CANDY HSTROPN, CMP #### [facility] [address] [place] [address] Dr. Joey Montalvo EGFR-NON AF EQUATORIAL GUINEAN >60 Normal >=60 [facility] Comment on above: Performed By: #### T CANDY HSTROPN, CMP #### [facility] [address] [place] [address] Dr. Joey Montalvo Globulin (S) [Mass/Vol] 3.4 g/dL Normal [facility] Comment on above: Performed By: #### T CANDY HSTROPN, CMP #### [facility] [address] [place] [address] Dr. Joey Montalvo Glucose [Mass/Vol] 109 mg/dL Critically high 74-106 [facility] Comment on above: Performed By: #### T CANDY HSTROPN, CMP #### [facility] [address] [address] [address] Joey Montalvo Potassium [Moles/Vol] 4.2 mmol/L Normal 3.5-5.1 [facility] Comment on above: Performed By: #### T MAGGIE GUPTA, CMP #### [facility] [address] [address] [address] Joey Montalvo Protein [Mass/Vol] 6.9 g/dL Normal 6.4-8.2 The [facility] Comment on above: Performed By: #### T MAGGIE GUPTA, CMP #### [facility] [address] [address] [address] Joey Montalvo Sodium [Moles/Vol] 141 mmol/L Normal 136-145 [facility] Comment on above: Performed By: #### T MAGGIE GUPTA, CMP #### [facility] [address] [place] [address] Dr. Joey Montalvo Urea nitrogen [Mass/Vol] 15.0 mg/dL Normal 7.0-18.0 [facility] Comment on above: Performed By: #### T MAGGIE GUPTA, CMP #### [facility] [address] [address] [address] Joey Montalvo Urea nitrogen/Creatinine [Mass ratio] 22.1 mg/mg Normal [facility] Comment on above: Performed By: #### T MAGGIE GUPTA, CMP #### [facility] [address] [place] [address] Dr. Joey Montalvo PROTIMEon 03-23-2022 INR Coag (PPP) [Relative time] 0.99 {INR} Normal [facility] Comment on above: Performed By: #### P TT, PT ####[facility] [address] [place] [address]Dr. Joey Montalvo INR GUIDELINES SEE BELOW Normal The [facility] Comment on above: Result Comment: ROSINA RED INR: 2.0 - 3.0 CONDITIONS NOT LISTED BELOW 2.5 - 3.5 FOR PROSTHETIC HEART VALVE REPLACEMENT 2.5 - 3.5 RECURRENT THROMBOSIS Performed By: #### P TT, PT ####[facility] [address] [id number]. Joey Montalvo PT Coag (PPP) [Time] 10.5 s Normal 9.0-11.6 [facility] Comment on above: Performed By: #### P TT, PT ####[facility] [address] [phone] Montalvo PTTon 03-23-2022 aPTT Coag (Bld) [Time] 30.9 s Normal 22.3-36.2 [facility] Comment on above: Performed By: #### P TT, PT ####[facility] [address] [address]DrUna Montalvo TROPONIN, HIGH SENSITIVITYon 03-23-2022 HSTROP 13.0 pg/mL Normal 4.0-76.1 [facility] Comment on above: Result Comment: CUT- OFF POINTS HAVE BEEN ESTABLISHED BASED ON THE FOURTH UNIVERSAL DEFINITIONS OF MYOCARDIAL INFARCTION. THE UPPER REFERENCE LIMIT (URL) OF TROPONIN, DEFINED THE 99TH PERCENTILE OF cTnI DISTRIBUTION IN A REFERENCE POPULATION, HAS BEEN CONFIRMED THE DECISION THRESHOLD FOR MT DIAGNOSIS. Performed By: #### T CANDY HSTROPN, CMP #### [facility] [address] [address] [address] Joey Montalvo TSHon 03-23-2022 TSH 1.451 uIU/mL Normal 0.358-3.740 The [facility] Comment on above: Performed By: #### T CANDY HSTROPN, CMP #### [facility] [address] [address] [address] Joey Montalvo URINE MICROSCOPIC ONLYon BACTERIA TRACE Abnormal NONE SEEN [facility] Comment on above: Performed By: #### U MICRO, ERUR ####[facility] [address] [address]Dr. Joey Montalvo Bacteria identified Cx Nom (U) INDICATED Normal [facility] Comment on above: Performed By: #### U MICRO, ERUR ####[facility] [address] [address]Dr. Joey Montalvo CAST NONE SEEN Normal NONE SEEN [facility] Comment on above: Performed By: #### U MICRO, ERUR ####[facility] [address] [address]Dr. Jacklynlan Montalvo Crystals LM Nom (Urine sed) NONE SEEN Normal NONE SEEN [facility] Comment on above: Performed By: #### U MICRO, ERUR ####[facility] [address] [address]Dr. Joey Montalvo Epithelial cells LM Ql (Urine sed) RARE Normal NONE SEEN /RARE [facility] Comment on above: Performed By: #### U MICRO, ERUR ####[facility] [address] [address]Dr. Jacklynlan Montalvo MUCOUS NONE SEEN Normal NONE SEEN [facility] Comment on above: Performed By: #### U MICRO, ERUR ####[facility] [address] [address]Dr. Joey Montalvo RBC 0-2 Normal 0-2 [facility] Comment on above: Performed By: #### U MICRO, ERUR ####[facility] [address] [address]Dr. Joey Montalvo WBC 2-5 Abnormal NONE SEEN [facility] Comment on above: Performed By: #### U MICRO, ERUR ####[facility] [address] [address]Dr. Joey Montalvo XR CHEST 1 Von 03-23-2022 [...] ALEXANDRE SWENSON Date: 2022-03-23 15:02 Normal [facility] XR Knee AP and Lateral and Gertrude velarde 11-16-2021 IMPRESSION: Stable appearing right total knee arthroplasty. Liner Man: DEEPIKA Transcribe Date/Time: Nov 15 2021 2:58P Dictated by : DIANN MONTGOMERY MD This examination was interpreted and the report reviewed and electronically signed by: MARSHAL STOVALL MD on Nov 16 2021 12:06PM [facility] DIVISION OF RADIOLOGY * * [...] Moderate joint effusion. DIVISION OF RADIOLOGY Provider, [facility] - 11/16/2021 * * *Final Report* * [...] IMPRESSION: Stable appearing right total knee arthroplasty. Liner Man: PSCB Transcribe Date/Time: Nov 15 2021 2:58P Dictated by : DIANN MONTGOMERY MD This examination was interpreted and the report reviewed and electronically signed by: MARSHAL STOVALL MD on Nov 16 2021 12:06PM EST [facility] XR Knee AP and Lateral and M erchantsOrdered By: Ccf Provider on 11-16-2021 [facility] XR Knee AP and Lateral and M erchantson 11-15-2021 Radiology Study observation (narrative) [facility] XR SHOULDER GENERAL 3V OR MO RE AP/TRUE AP/OTHER RIGHTon 11-08-2021 [facility] XR Shoulder - right 3 Viewso n 11-08-2021 IMPRESSION: Intact reverse total shoulder arthroplasty as described. Liner Man: [facility] Transcribe Date/Time: Nov 08 2021 2:12P Dictated by : HALEIGH SORIANO MD This examination was interpreted and the report reviewed and electronically signed by: RUBI RODRIGUEZ MD on Nov 08 2021 2:38PM EST DIVISION OF RADIOLOGY * * *Final [...] the cervical spine. DIVISION OF RADIOLOGY Provider, [facility] Karlie Alcaraz - 11/08/2021 * * *Final Report* * [...] Intact reverse total shoulder arthroplasty as described. Liner Man: DEEPIKA Transcribe Date/Time: Nov 08 2021 2:12P Dictated by : HALEIGH SORIANO MD This examination was interpreted and the report reviewed and electronically signed by: RUBI RODRIGUEZ MD on Nov 08 2021 2:38PM [facility] Radiology Study observation (narrative) [facility] XR Shoulder - right 3 ViewsO rdered By: Ccf Provider on 11-08-2021 [facility] LIPID PROFILEon 07-15-2021 CHOL-HDL RATIO NORM SEE BELOW Normal The [facility] Comment on above: Result Comment: 3.3 - 4.4 LOW RISK 4.4 - 7.1 AVERAGE RISK 7.1 - 11.0 MODERATE RISK >11.0 HIGH RISK Performed By: #### L AMARAID LIVER ####[facility] [address] [place], [place] [address]Bq. Joey Montalvo Cholesterol [Mass/Vol] 124 mg/dL Normal <=200 [facility] Comment on above: Performed By: #### L BARBARA LIVER ####[facility] [address] [place], [place] [address]Bo. Joey Montalvo Cholesterol in HDL [Mass/Vol] 40 mg/dL Normal 40-60 [facility] Comment on above: Performed By: #### L IPID, LIVER ####[facility] [address] [id number]. Joey Montalvo Cholesterol in LDL [Mass/Vol] 65.6 mg/dL Normal [facility] Comment on above: Performed By: #### L IPID, LIVER ####[facility] [address] [place], [place] [address]Dg. Joey Montalvo Cholesterol.total/Cho lesterol in HDL [Mass ratio] 3.1 {ratio} Normal [facility] Comment on above: Performed By: #### L IPID, LIVER ####[facility] [address] [id number]. Joey Montalvo HDL NORMAL > or = 60 mg/dl - LO W CARDIOVASCULAR RISK <40 mg/dl - HIGH CARDIOVASCULAR RISK Normal [facility] Comment on above: Performed By: #### L IPID, LIVER ####[facility] [address] [id number]. Joey Montalvo LDL CALC NORMAL SEE BELOW Normal The [facility] Comment on above: Result Comment: <100 mg/dl OPTIMAL 100 - 129 mg/dl NEAR OR ABOVE OPTIMAL 130 - 159 mg/dl BORDERLINE HIGH 160 - 189 mg/dl HIGH >190 mg/dl VERY HIGH Performed By: #### L IPID, LIVER ####[facility] [address] [phone]. Joey Montalvo Triglyceride [Mass/Vol] 92 mg/dL Normal <=150 [facility] Comment on above: Performed By: #### L IPID, LIVER ####[facility] [address] [phone]. Joey Montalvo VLDL CALC 18.4 mg/dL Normal [facility] Comment on above: Performed By: #### L IPID, LIVER ####[facility] [address] [phone]. Joey Montalvo LIVER PROFILEon 07-15-2021 Albumin [Mass/Vol] 3.5 g/dL Normal 3.4-5.0 [facility] Comment on above: Performed By: #### L IPID, LIVER ####[facility] [address] [address]Dr. Joey Montalvo Albumin/Globulin [Mass ratio] 1.0 {ratio} Normal [facility] Comment on above: Performed By: #### L IPID, LIVER ####[facility] [address] [address]Dr. Joey Montalvo ALP [Catalytic activity/Vol] 77 U/L Normal 46-116 [facility] Comment on above: Performed By: #### L IPID, LIVER ####[facility] [address] [place], [place] [address]Dr. Joey Montalvo ALT [Catalytic activity/Vol] 23 U/L Normal 16-63 [facility] Comment on above: Performed By: #### L IPID, LIVER ####[facility] [address] [place], [place] [address]Dr. Joey Montalvo AST [Catalytic activity/Vol] 10 U/L Critically low 15-37 [facility] Comment on above: Performed By: #### L IPID, LIVER ####[facility] [address] [place], [place] [address]Dr. Joey Montalvo BILI, CONJUGATED 0.2 mg/dL Normal 0.0-0.2 [facility] Comment on above: Performed By: #### L IPID, LIVER ####[facility] [address] [place], [place] [address]Dr. Joey Montalvo Bilirubin [Mass/Vol] 0.6 mg/dL Normal 0.2-1.0 [facility] Comment on above: Performed By: #### L IPID, LIVER ####[facility] [address] [place], [place] [address]Dr. Joey Montalvo Globulin (S) [Mass/Vol] 3.4 g/dL Normal [facility] Comment on above: Performed By: #### L IPID, LIVER ####[facility] [address] [place], [place] [address]Dr. Jacklyn Selvin Protein [Mass/Vol] 6.9 g/dL Normal 6.4-8.2 The [facility] Comment on above: Performed By: #### L IPID, LIVER ####[facility] [address] [place], [place] [address]Ab. Joey Selvin Automated erythrocytes count in urine sediment (number/area)Ordered By: Stanton Velasco on 06-07-2021 RBC Auto (Urine sed) [#/Area] 5-9 [HPF] [facility] Automated leukocytes count i n urine sediment (number/area)Ordered By: Stanton Velasco on 06-07-2021 WBC Auto (Urine sed) [#/Area] 5-9 [HPF] [facility] Bilirubin Test strip Ql (U)O rdered By: Stanton Velasco on 06-07-2021 Bilirubin Ql (U) Negative Negative [facility] Color Auto (U)Ordered By: Leonides Velasoc on 06-07-2021 Color (U) Yellow Yellow [facility] Ketones Auto test strip (U) [Mass/Vol]Ordered By: Stanton Velasco on 06-07-2021 Ketones (U) [Mass/Vol] Negative Negative [facility] Laboratory - UrinalysisOrder ed By: Stanton Velasco on 06-07-2021 Hyaline casts LM Ql (Urine sed) 0-8 [LPF] [facility] Nitrite Test strip Ql (U)Ord ered By: Stanton Velasco on 06-07-2021 Nitrite Ql (U) Negative Negative [facility] Protein Auto test strip (U) [Mass/Vol]Ordered By: Stanton Velasco on 06-07-2021 Protein (U) [Mass/Vol] Negative Negative [facility] Specific gravity Auto test s trip (U) [Rel density]Ordered By: Stanton Velasco on 06-07-2021 Specific gravity (U) [Rel density] 1.017 1.001-1.030 [facility] Squamous epithelial cells de tection in urine sediment by light microscopyOrdered By: Stanton Velasco on 06-07-2021 Epithelial cells.squamous LM Ql (Urine sed) 3-4 [HPF] [facility] Urine bacteria detection by automated methodOrdered By: Stanton Velasco on 06-07-2021 Bacteria Auto Ql (U) None seen None Seen [facility] Urine clarity by refractomet ry automatedOrdered By: Stanton Velasco on 06-07-2021 Clarity Refractometry automated (U) Turbid Clear [facility] Urine glucose measurement by automated test strip (mass/volume)Ordered By: Stanton Velasco on 06-07-2021 Glucose Auto test strip (U) [Mass/Vol] Normal mg/dL Normal [facility] Urine hemoglobin detection b y automated test stripOrdered By: Stanton Velasco on 06-07-2021 Hemoglobin Auto test strip Ql (U) Negative Negative [facility] Urine leukocyte esterase det ection by automated test stripOrdered By: Stanton Velasco on 06-07-2021 Leukocyte esterase Auto test strip Ql (U) 1+ Negative [facility] Urobilinogen Auto test strip (U) [Mass/Vol]Ordered By: Stanton Velasco on 06-07-2021 Urobilinogen (U) [Mass/Vol] Normal mg/dL Normal [facility] pH Auto test strip (U)Ordere d By: Stanton Velasco on 06-07-2021 pH (U) 8.5 [pH] 5.0-9.0 [facility] XR Shoulder - right 3 Viewso n 05-24-2021 IMPRESSION: Intact shoulder arthroplasty. Liner Man: DEEPIKA Transcribe Date/Time: May 24 2021 10:14A [...] laura erosions. [id number] _DIVISION OF RADIOLOGY [facility] * * *Final Report* [...] laura erosions. IMPRESSION IMPRESSION: Intact shoulder arthroplasty. Liner Man: DEEPIKA Transcribe Date/Time: May 24 2021 10:14A Dictated by : RUBI RODRIGUEZ MD This examination was interpreted and the report reviewed and electronically signed by: RUBI RODRIGUEZ MD on May 24 2021 10:14AM EST [facility] Radiology Study observation (narrative) [facility] XR Shoulder - right 3 ViewsO rdered By: Ccf Provider on 05-24-2021 [facility] SARS-CoV-2 RNA Resp Ql BASSAM+p robeon 05-04-2021 SARS-CoV-2 (COVID-19) RNA BASSAM+probe Ql (Resp) COVID 19 RESULT: SARS-CoV-2 (Agent of COVID-19) Not Detected by RT-PCR or equivalent method. This test has been authorized by FDA under an Emergency Use Authorization (EUA). Normal [facility] Comment on above: Performed By: #### 9 4500-6 ####[facility] LABORATORYCLIA [id number] [place] [address] [facility] CNDSon 05-03-2021 [facility] HNO ID: [id number] Author: NICKIE Garay Service: Orthopaedic Surgery Author Type: Physician Financial Sales Assistant Type: Discharge Summary Filed: 05/04/2021 11:28 AM Note Text: Attestation signed by Kev Ferrell MD at 05/04/2021 12:58 PM I [...] deficits noted. 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 Surgical dressing in [...] twice daily. Associated Diagnoses:Coronary artery disease involving [place] coronary artery of [place] heart without angina pectoris; Essential hypertension; Hyperlipidemia, [...] Dept Phone 05/24/2021 9:30 AM NEHEMIAH GILBERT [phone] 06/14/2021 9:15 AM KEV FERRELL [phone] SIGNATURE: NICKIE Garay PATIENT NAME: Fahad Sotelo DATE: 05/04/21 TIME: 11:25 AM [facility] NURSING PROGon 05-03-2021 NURSING PROG HNO ID: [id number] Author: Mary Benoit RN Service: Nursing Author Type: Registered Nurse Type: Nursing Progress Note Filed: 05/03/2021 4:10 PM Note Text: Nursing Progress Note Patient Name: Fahad Sotelo Patient Location: [place] [address] [address] __ Daily Note: Page sent to the surgical pager [phone]. To update on patient status. SHEYIRT 520- Could you order some laxatives? Hes concerned about a BM and also he is not leaving today. Evaluated by PT AND failed. Recommending SNF. Mary 5550 This note was completed by: Mary Benoit [facility] THERAPY NTon 05-03-2021 THERAPY NT HNO ID: [id number] Author: Leila Nogueira, PT Service: Physical Therapy Author Type: Physical Therapist Type: Therapy (PT/OT/Speech/Resp) Filed: 05/03/2021 2:40 PM Note Text: Physical Therapy Evaluation SERVICE DATE: 05/03/2021 SERVICE TIME: 1352 to 1418 ROOM: [place] [address] Recommended Discharge Disposition: Subacute/SNF Recommended Discharge Disposition [...] Medical History: L RTC repair (still poor lifting);' c-spine surgery, has lumbar spine issues; urologic [...] normally completes Equipment Owned: Cane;Wheeled Walker;Elevated Toilet Seat;Core Composer Machine Tender;Sock Aid Prior Functional Level: Within Functional Limits Prior Functional Level Comments: Per pt, IND with ADLs, no AD for amb 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 when getting out [...] Loss of Balance;Trunk Control Decreased;Lateral sway increased JH-HLM: 7: Walk 25 feet or more Learning/Educational [...] with: Patient TREATMEN (more content not included)... [facility] THERAPY NT HNO ID: [id number] Author: Aislinn Huffman OT/L Service: Occupational Therapy Author Type: Occupational Therapist Type: Therapy (PT/OT/Speech/Resp) Filed: 05/03/2021 2:39 PM Note Text: Occupational Therapy Evaluation SERVICE DATE: 05/03/2021 SERVICE TIME: 1023 to 1155 ROOM: [place] [address] Recommended Discharge Disposition: Subacute/SNF Recommended Discharge Disposition [...] Medical History: L RTC repair (still poor lifting);'18 c-spine surgery, has lumbar spine issues; urologic [...] normally completes Equipment Owned: Cane;Wheeled Walker;Elevated Toilet Seat;Core Composer Machine Tender;Sock Aid Prior Functional Level: Within Functional Limits Prior Functional Level Comments: Per pt, IND with ADLs, no AD for amb 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 when getting out [...] symptoms and signs-other Interventions Provided: Evaluation;Therapeutic Exercise (99581);Self Assisted Management (23899) $ Evaluation-Modera (more content not included)... [facility] ANES POSTPROC EVALon 022 ANES POSTPROC EVAL HNO ID: [id number] Author: Vipul Do MD Service: Anesthesiology Author Type: Anesthesiologist Type: Anesthesia Postprocedure Evaluation Filed: 05/02/2021 3:18 PM Note Text: POST ANESTHESIA EVALUATION NOTE : 1950 Procedure Summary Date: 05/02/21 Room / Location: AV OR04 / AV OR Anesthesia Start: 737 Anesthesia Stop: 1025 [...] May 02, 2021 TIME: 3:18 PM CSN: [id number] [facility] ANES PRE-OPon 05-02-2021 ANES PRE-OP HNO ID: [id number] Author: Vipul Do MD Service: Anesthesiology Author [...] and consent discussed: yes. Patient / Responsible Alliance Party agrees to proceed: yes Patient / [...] May 02, 2021 TIME: 7:13 AM CSN: [id number] [facility] BRIEF OP NOTon 05-02-2021 BRIEF OP NOT HNO ID: [id number] Author: Kev Ferrell MD Service: Orthopaedic Surgery Author Type: Physician Type: Brief Op Note Filed: 05/02/2021 10:15 AM Note Text: BRIEF OPERATIVE / PROCEDURE NOTE LOG ID: [id number] SURGERY/PROCEDURE DATE: 05/02/2021 INCISION/PROCEDURE START TIME: 8:23 AM INCISION CLOSE/PROCEDURE END TIME: 10:10 AM SURGEON(S)/PROCEDURALI ST(S) AND BELLHOP CAPTAIN(S): Surgeon(s) and Role: * Kev Ferrell MD - Primary * Kimani Gutierres MD - Assisting Physician Financial Sales Assistant: Nehemiah Gilbert PA-C SURGERY/PROCEDURE(S): Right Reverse Total Shoulder Arthroplasty Biceps Tenodesis ANESTHESIA: General/ GET With Scalene Catheter FINDINGS: RCT OA ESTIMATED BLOOD LOSS: 100 mls SPECIMENS: None COMPLICATIONS: None IMPLANTS: Hayden BiometComprehensive Reverse TSR PRE-OP/PRE-PROCEDURE DIAGNOSIS: Non Traumatic RCT, OA, Rotator Cuff Arthropathy POST-OP/POST-PROCEDURE DIAGNOSIS: Same as Preop SIGNATURE: Kev Ferrell MD PATIENT NAME: Fahad Sotelo DATE: May 02, 2021 TIME: 10:06 AM [facility] NURSING PROGon 05-02-2021 NURSING PROG HNO ID: [id number] Author: Ana Lal RN Service: ? Author Type: Registered Nurse Type: Nursing Progress Note Filed: 05/02/2021 7:57 PM Note Text: Nursing Progress Note Patient Name: Fahad Sotelo Patient Location[place] [address] [address] __ Daily Note: Admitted from PACU s/p right reversed shoulder. alert and oriented X 3, pleasant. No c/o pain at this time. Good PO intake. Skin checks done with LEATHA Hernandez. No pressure ulcer noted. This note was completed by: Ana Lal [facility] OPERATIVE NOon 05-02-2021 OPERATIVE NO HNO ID: [id number] Author: Kev Ferrell MD Service: Orthopaedic Surgery Author Type: Physician Type: Operative Report Filed: 05/04/2021 9:35 AM Note Text: [facility] - Operative Report FAHAD SOTELO : 1950 AGE: 70. SEX: M PATIENT TYPE: [facility]: [facility] LOCATION: [facility] ATTENDING PHYSICIAN: Kev Ferrell MD CSN NUMBER: [id number] DATE OF SURGERY/PROCEDURE: 05/02/2021 INCISION/PROCEDURE START TIME: 0823 hours. INCISION CLOSE/PROCEDURE END TIME: 1010 hours. PREOPERATIVE DIAGNOSIS: 1. Right shoulder rotator cuff arthropathy. 2. Chronic nontraumatic rotator cuff tear. 3. Osteoarthritis. POSTOPERATIVE DIAGNOSIS: 1. Right shoulder rotator cuff arthropathy. 2. Chronic nontraumatic rotator cuff tear. 3. Osteoarthritis. SURGEON: Kev Ferrell MD BELLHOP CAPTAIN: 1. Kimani Gutierres M.D. Dr. Gutierres assisted in all aspects of the procedure. His assistance was critical for the procedure. 2. Nehemiah Gilbert PA-C. No qualified resident available. Una Gilbert assisted in positioning the patient, retraction, [...] to right shoulder arthroplasty with anatomic alignment. Liner Man: DEEPIKA Transcribe Date/Time: May 02 2021 11:53A Dictated by : KIZZY COLEMAN MD This examination was interpreted and the report reviewed and electronically signed by: KIZZY COLEMAN MD on May 02 2021 11:53AM EST [id number] Normal [facility] CT SHOULDER WO IVCON RTon [facility] XR Shoulder - right 4 Viewso n 12-21-2020 IMPRESSION: Findings consistent with chronic rotator cuff tear and mild cuff arthropathy. Liner Man: DEEPIKA Transcribe Date/Time: Dec 21 2020 11:51A [...] superior joint capsule. DIVISION OF RADIOLOGY Provider, Devan de jesus [place] - 12/21/2020 * * *Final Report* * [...] rotator cuff tear and mild cuff arthropathy. Liner Man: DEEPIKA Transcribe Date/Time: Dec 21 2020 11:51A Dictated by : FELIX SANDOVAL, DO This examination was interpreted and the report reviewed and electronically signed by: ENID SMITH MD on Dec 21 2020 3:31PM EST [facility] Radiology Study observation (narrative) [facility] XR Shoulder - right 4 ViewsO rdered By: Ccf Provider on 12-21-2020 [facility] MR Shoulder - right BELLA doll 08-10-2020 IMPRESSION: 1. Complete retracted tear of the supraspinatus and infraspinatus tendons and superimposed infraspinatus muscle strain 2. Subscapularis tendinosis and partial tear 3. Diffuse biceps tendinosis and moderate partial tear 3. Glenohumeral osteoarthritis with degeneration of the labrum and joint effusion Liner Man: DEEPIKA Transcribe Date/Time: Aug 10 2020 1:18P Dictated by : GASPER KNIGHT MD This examination was interpreted and the report reviewed and electronically signed by: GASPER KNIGHT MD on Aug 10 2020 1:23PM [facility] DIVISION OF RADIOLOGY * * *Final Report* * * DATE OF EXAM: Aug 10 2020 1:05PM LNM 0240 - MRI SHOULDER WO IVCON RT [...] posterolateral humeral head. DIVISION OF RADIOLOGY Provider, [facility] Karlie Alcaraz - 08/10/2020 * * *Final Report* * * DATE OF EXAM: Aug 10 2020 1:05PM LNM 0240 - MRI SHOULDER WO IVCON RT [...] degeneration of the labrum and joint effusion Liner Man: PSCB Transcribe Date/Time: Aug 10 2020 1:18P Dictated by : GASPER KNIGHT MD This examination was interpreted and the report reviewed and electronically signed by: GASPER KNIGHT MD on Aug 10 2020 1:23PM EST [facility] Radiology Study observation (narrative) [facility] MR Shoulder - right WO contr astOrdered By: Ccf Provider on 08-10-2020 [facility] [address] LUMBAR SPINE WO IVCONon 0 06-29-2020 [facility] XR Pelvis and Hip - right AP and Lateral frogon 04-15-2020 IMPRESSION: Bilateral hip joint degenerative changes as described. Liner Man: DEEPIKA Transcribe Date/Time: Apr 15 2020 4:27P Dictated by : MARSHAL STOVALL MD This examination was interpreted and the report reviewed and electronically signed by: MARSHAL STOVALL MD on Apr 15 2020 4:29PM [facility] DIVISION OF RADIOLOGY * * [...] other significant abnormality. DIVISION OF RADIOLOGY Provider, [facility] - 04/15/2020 * * *Final Report* * [...] Bilateral hip joint degenerative changes as described. Liner Man: DEEPIKA Transcribe Date/Time: Apr 15 2020 4:27P Dictated by : MARSHAL STOVALL MD This examination was interpreted and the report reviewed and electronically signed by: MARSHAL STOVALL MD on Apr 15 2020 4:29PM EST [facility] Radiology Study observation (narrative) [facility] XR Pelvis and Hip - right AP and Lateral frogOrdered By: Ccf Provider on 04-15-2020 [facility] Vital Signs Date Time Vital Sign Value Performing Clinician Facility 10-17-2024 09:19-0400 Body height 177.8 cm Stanton Velasco MD Work Phone: [facility] 10-17-2024 09:19-0400 Body mass index (BMI) [Ratio] 31.28 kg/m2 Stanton Velasco MD Work Phone: [facility] 10-17-2024 09:19-0400 Body weight 98.88 kg Stanton Velasco MD Work Phone: [facility] 10-17-2024 09:19-0400 Diastolic blood pressure 72 mm[Hg] Stanton Velasco MD Work Phone: [facility] 10-17-2024 09:19-0400 Heart rate 59 /min Stanton Velasco MD Work Phone: [facility] 10-17-2024 09:19-0400 SaO2% (BldA) [Mass fraction] 97 % Stanton Velasco MD Work Phone: [facility] 10-17-2024 09:19-0400 Systolic blood pressure 120 mm[Hg] Stanton Velasco MD Work Phone: [facility] 06-30-2024 12:01-0400 Blood Pressure Location [facility] 06-30-2024 12:01-0400 Diastolic blood pressure 63 mm[Hg] [facility] 06-30-2024 12:01-0400 Heart rate 58 /min [facility] 06-30-2024 12:01-0400 Systolic blood pressure 115 mm[Hg] [facility] 04-16-2024 14:21-0500 Body height 177.8 cm Sukumar Mack ASSESSMENT RN Work Phone: [facility] 04-16-2024 14:21-0500 Body mass index (BMI) [Ratio] 31.41 kg/m2 Sukumar Mack ASSESSMENT RN Work Phone: [facility] 04-16-2024 14:21-0500 Body weight 99.29 kg Sukumar Mack ASSESSMENT RN Work Phone: [facility] 04-16-2024 14:21-0500 Diastolic blood pressure 64 mm[Hg] Sukumar Mack ASSESSMENT RN Work Phone: [facility] 04-16-2024 14:21-0500 Heart rate 68 /min Sukumar Mack ASSESSMENT RN Work Phone: [facility] 04-16-2024 14:21-0500 Respiratory rate 16 /min Sukumar Mack ASSESSMENT RN Work Phone: [facility] 04-16-2024 14:21-0500 SaO2% (BldA) [Mass fraction] 96 % Sukumar Mack ASSESSMENT RN Work Phone: [facility] 04-16-2024 14:21-0500 Systolic blood pressure 108 mm[Hg] Sukumar Mack ASSESSMENT RN Work Phone: [facility] 04-03-2024 11:29-0500 Body height 177.8 cm Christina Scott PA Work Phone: [facility] 04-03-2024 11:29-0500 Body mass index (BMI) [Ratio] 31.91 kg/m2 Christina Hemmer PA Work Phone: [facility] 04-03-2024 11:29-0500 Body weight 100.88 kg Christina Hemmer PA Work Phone: [facility] 04-03-2024 11:29-0500 Diastolic blood pressure 72 mm[Hg] Christina Larsonmer PA Work Phone: [facility] 04-03-2024 11:29-0500 Heart rate 65 /min Christina Hemmer PA Work Phone: [facility] 04-03-2024 11:29-0500 Respiratory rate 16 /min Christina Hemmer PA Work Phone: [facility] 04-03-2024 11:29-0500 SaO2% (BldA) [Mass fraction] 97 % Christina Hemmer PA Work Phone: [facility] 04-03-2024 11:29-0500 Systolic blood pressure 108 mm[Hg] Christina Hemmer PA Work Phone: [facility] 03-07-2024 08:50-0500 Body height 177.8 cm Stanton Velasco MD Work Phone: [facility] 03-07-2024 08:50-0500 Body mass index (BMI) [Ratio] 32 kg/m2 Stanton Velasco MD Work Phone: [facility] 03-07-2024 08:50-0500 Body weight 101.15 kg Stanton Velasco MD Work Phone: [facility] 03-07-2024 08:50-0500 Diastolic blood pressure 66 mm[Hg] Stanton Velasco MD Work Phone: [facility] 03-07-2024 08:50-0500 Heart rate 59 /min Stanton Velasco MD Work Phone: [facility] 03-07-2024 08:50-0500 SaO2% (BldA) [Mass fraction] 96 % Stanton Velasco MD Work Phone: [facility] 03-07-2024 08:50-0500 Systolic blood pressure 122 mm[Hg] Stanton Velasco MD Work Phone: [facility] 02-15-2024 09:10-0500 Body height 177.8 cm Stanton Velasco MD Work Phone: [facility] 02-15-2024 09:10-0500 Body mass index (BMI) [Ratio] 32 kg/m2 Stanton Velasco MD Work Phone: [facility] 02-15-2024 09:10-0500 Body weight 101.15 kg Stanton Velasco MD Work Phone: [facility] 02-15-2024 09:10-0500 Diastolic blood pressure 74 mm[Hg] Stanton Velasco MD Work Phone: [facility] 02-15-2024 09:10-0500 Heart rate 64 /min Stanton Velasco MD Work Phone: [facility] 02-15-2024 09:10-0500 SaO2% (BldA) [Mass fraction] 95 % Stanton Velasco MD Work Phone: [facility] 02-15-2024 09:10-0500 Systolic blood pressure 128 mm[Hg] Stanton Velasco MD Work Phone: [facility] 12-12-2023 13:22-0400 Diastolic blood pressure 72 mm[Hg] Louie Salomon MD Work Phone: [facility] 12-12-2023 13:22-0400 Heart rate 63 /min Louie Salomon MD Work Phone: [facility] 12-12-2023 13:22-0400 Systolic blood pressure 130 mm[Hg] Louie Salomon MD Work Phone: [facility] 11-02-2023 11:03-0400 Body height 177.8 cm Stanton Velasco MD Work Phone: [facility] 11-02-2023 11:03-0400 Body mass index (BMI) [Ratio] 31.71 kg/m2 Stanton Velasco MD Work Phone: [facility] 11-02-2023 11:03-0400 Body weight 100.25 kg Stanton Velasco MD Work Phone: [facility] 11-02-2023 11:03-0400 Diastolic blood pressure 76 mm[Hg] Stanton Velasco MD Work Phone: [facility] 11-02-2023 11:03-0400 Heart rate 78 /min Stanton Velasco MD Work Phone: [facility] 11-02-2023 11:03-0400 SaO2% (BldA) [Mass fraction] 94 % Stanton Velasco MD Work Phone: [facility] 11-02-2023 11:03-0400 Systolic blood pressure 128 mm[Hg] Stanton Velasco MD Work Phone: [facility] 07-05-2023 09:41-0400 Body height 176.5 cm Pacc 1 Work Phone: [facility] 07-05-2023 09:41-0400 Body mass index (BMI) [Ratio] 32.73 kg/m2 Pacc 1 Work Phone: [facility] 07-05-2023 09:41-0400 Body temperature 97.9 [degF] Pacc 1 Work Phone: [facility] 07-05-2023 09:41-0400 Body weight 102 kg Pacc 1 Work Phone: [facility] 07-05-2023 09:41-0400 Diastolic blood pressure 70 mm[Hg] Pacc 1 Work Phone: [facility] 07-05-2023 09:41-0400 Heart rate 65 /min Pacc 1 Work Phone: [facility] 07-05-2023 09:41-0400 Respiratory rate 16 /min Pacc 1 Work Phone: [facility] 07-05-2023 09:41-0400 SaO2% (BldA) [Mass fraction] 97 % Pacc 1 Work Phone: [facility] 07-05-2023 09:41-0400 Systolic blood pressure 124 mm[Hg] Pacc 1 Work Phone: [facility] 06-20-2023 10:19-0400 Diastolic blood pressure 70 mm[Hg] Louie Salomon MD Work Phone: [facility] 06-20-2023 10:19-0400 Heart rate 64 /min Louie Salomon MD Work Phone: [facility] 06-20-2023 10:19-0400 Systolic blood pressure 128 mm[Hg] Louie Salomon MD Work Phone: [facility] 06-04-2023 11:39-0400 Body temperature 97.3 [degF] Radha Ramos MD Work Phone: [facility] 06-04-2023 11:39-0400 Diastolic blood pressure 63 mm[Hg] Radha Ramos MD Work Phone: [facility] 06-04-2023 11:39-0400 Heart rate 61 /min Radha Ramos MD Work Phone: [facility] 06-04-2023 11:39-0400 Systolic blood pressure 120 mm[Hg] Radha Ramos MD Work Phone: 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 ; Chronic ischemic heart disease Start: 10-17-2024 End: 10-17-2024 ambulatory STANTON VELASCO Not Available Start: 09-19-2024 End: 09-19-2024 Clinisync Result Encounter Generic External Data Provider [facility] External Department Unsolicited Start: 09-19-2024 End: 09-19-2024 Clinisync Result Encounter Generic External Data Provider [facility] External Department Unsolicited Start: 09-19-2024 End: 09-19-2024 Subsequent hospital visit by physician Georgina Dixon Work Phone: Radiology Comment on above: Closed nondisplaced fracture of acromial end of right clavicle, initial encounter [S42.034A] Start: 09-19-2024 End: 09-19-2024 ambulatory STANTON VELASCO II Facility:[facility] Start: 08-29-2024 End: 08-29-2024 Clinisync Result Encounter Generic External Data Provider [facility] External Department Unsolicited Start: 08-29-2024 End: 08-29-2024 Clinisync Result Encounter Generic External Data Provider [facility] External Department Unsolicited Start: 08-29-2024 End: 08-29-2024 Patient encounter procedure Rigo Jang RT(R) Radiology Comment on above: Right shoulder pain, unspecified chronicity (Primary Dx); Closed nondisplaced fracture of acromial end of right clavicle, initial encounter Start: 08-29-2024 End: 08-29-2024 Subsequent hospital visit by physician Georgina Gonzalez 1 Work Phone: Radiology Comment on above: Right shoulder pain, unspecified chronicity [M25.511] Start: 08-29-2024 End: 08-29-2024 ambulatory Rigo Jang RT(R) Radiology Comment on above: Radiology XR Start: 08-26-2024 End: 08-26-2024 Admission to same day surgery center Kristal Hare APRN.[employer] Work Phone: Colorectal Surgery Comment on above: Manometry Start: 08-26-2024 End: 08-26-2024 Patient encounter procedure Kristal Hare APRN.[employer] Work Phone: Colorectal Surgery Comment on above: Obstructive defecati on (HCC) (Primary Dx); High-tone pelvic floor dysfunction; Constipation due to outlet dysfunction Start: 08-26-2024 End: 08-26-2024 ambulatory FOREST SOLORIO Facility:[facility] Start: 08-18-2024 End: 08-18-2024 Clinisync Result Encounter Stanton Velasco MD Work Phone: [facility] External Department Unsolicited Start: 08-18-2024 End: 08-18-2024 Clinisync Result Encounter Stanton Velasco MD Work Phone: [facility] External Department Unsolicited Start: 06-30-2024 End: 06-30-2024 ambulatory Forest Solorio Facility:[facility] Start: 06-30-2024 End: 06-30-2024 Patient encounter procedure Forest Solorio [facility] Start: 06-06-2024 End: 06-06-2024 Clinisync Result Encounter Generic External Data Provider [facility] External Department Unsolicited Start: 06-06-2024 End: 06-06-2024 Clinisync Result Encounter Generic External Data Provider [facility] External Department Unsolicited Start: 05-21-2024 End: 05-21-2024 ambulatory EHAB [facility] Start: 05-14-2024 End: 05-15-2024 ambulatory Forest Solorio Facility:[facility] Start: 05-14-2024 End: 05-15-2024 Patient encounter procedure Forest Solorio [facility] Start: 05-14-2024 End: 05-14-2024 ambulatory Forest Solorio Facility:[facility] Start: 05-09-2024 ambulatory Forest Solorio Facilit y:[facility] Start: 05-05-2024 End: 05-05-2024 ambulatory Forest Solorio Facility:[facility] Start: 04-16-2024 End: 04-16-2024 Office outpatient visit 25 minutes Sukumar Mack ASSESSMENT RN Work Phone: [facility] Comment on above: Constipation, unspec ified constipation type (Primary Dx); Chronic obstructive pulmonary disease, unspecified (CMS/HCC) Start: 04-16-2024 End: 04-16-2024 ambulatory SUKUMAR MACK Not Available Start: 04-16-2024 End: 04-16-2024 Bamboo flowsheet Sukumar Mack ASSESSMENT RN Work Phone: [facility] Start: 04-16-2024 End: 04-16-2024 Bamboo flowsheet Sukumar Mack ASSESSMENT RN Work Phone: [facility] Start: 04-11-2024 End: 04-11-2024 ambulatory CHRIS CLEMENTS Facility:[facility] Start: 04-11-2024 End: 04-11-2024 Patient encounter procedure Chris Clements MD Work Phone: General Surgery Comment on above: Unilateral groin brielle n (Primary Dx) Start: 04-03-2024 End: 04-03-2024 Bamboo flowsheet Christina Scott PA Work Phone: [facility] Start: 04-03-2024 End: 04-03-2024 Bamboo flowsheet Christina Scott PA Work Phone: [facility] Start: 04-03-2024 End: 04-03-2024 Office outpatient visit 25 minutes Christina Scott PA Work Phone: [facility] Comment on above: Chronic idiopathic c onstipation (Primary Dx) Start: 04-03-2024 End: 04-03-2024 ambulatory CHRISTINA SCOTT Not Available Start: 03-17-2024 End: 03-17-2024 Telephone [...] Start: 02-26-2024 End: 02-26-2024 ambulatory CHRIS CLEMENTS Facility:[facility] [place] Start: 02-25-2024 End: 02-28-2024 Telephone encounter Fady Dye MD Work Phone: Urology Comment on above: Satya Braun [facility] Start: 02-22-2024 End: 02-22-2024 Telephone encounter Fady Dye MD Work Phone: Urology Comment on above: 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 Start: 02-18-2024 End: 02-19-2024 [...] Dx); ACP (advance care planning); Atherosclerosis of [place] coronary artery of [place] heart without angina pectoris (CMS/HCC); Benign essential [...] Start: 01-25-2024 End: 01-25-2024 ambulatory Suzanna Macdonald Facility:[facility] Start: 01-17-2024 End: 01-17-2024 ambulatory FADY DYE Facility:[facility] [place] Start: 01-17-2024 End: 01-17-2024 Patient encounter procedure Fady Dye MD Work Phone: Urology Comment on above: Urinary frequency (P rimary Dx); Urgency of urination; Incomplete bladder emptying Start: 12-14-2023 End: 12-14-2023 Refill Daija FU-Sonny Work Phone: Urology Comment on above: Results Start: 12-13-2023 End: 12-13-2023 ambulatory Fela Teran RN INTERVENTIONAL Urology Start: 12-12-2023 End: 12-14-2023 Clinisync Result [...] Start: 12-12-2023 End: 12-12-2023 ambulatory LOUIE SALOMON Facility:[facility] Start: 11-13-2023 End: 11-13-2023 Telephone encounter Louie Salomon MD Work Phone: Urology Comment on above: Patient Update Start: 11-02-2023 End: 11-02-2023 Bamboo flowsheet Stanton Velasco MD Work Phone: [facility] Start: 11-02-2023 End: 11-02-2023 BamPowerInboxo flowsheet Stanton Velasco MD Work Phone: [facility] [...] Work Phone: Urology Start: 08-31-2023 End: 08-31-2023 Nursing evaluation of patient and report [employer] U[facility] Comment on above: Urinary retention (P rimary Dx) Start: 08-17-2023 Refill Daija Octavia PA-C Work Phone: Urology Comment on above: Refill Request Start: 08-15-2023 Orders Only Daija Octavia PA-C Work Phone: Urology Comment on above: Dysuria (Primary Dx) Returning Patient's Call Start: 08-09-2023 Telephone encounter Corry stanley APRN.CNP Work Phone: Urology Start: 08-02-2023 End: 08-02-2023 ambulatory STANTON Payne VELASCO II Facility:[facility] Start: 07-11-2023 Telephone encounter Louie Perales MD Work Phone: Urology Start: 07-05-2023 End: 07-05-2023 Admission to establishment [facility] [place] 1 Work Phone: Pre Anesthesia Start: 07-05-2023 End: 07-05-2023 Anesthesia consultation [facility] [place] 1 Work Phone: Pre Anesthesia Comment on above: Pre-op evaluation (P rimary Dx); Coronary artery disease involving [place] coronary artery of [place] heart without angina pectoris; Mixed hyperlipidemia; Essential hypertension; Urge incontinence; Cervical spondylosis with myelopathy; Obesity, Class I, BMI 30-34.9 Start: 07-05-2023 End: 07-05-2023 Preprocedural examination done Pac [place] 1 Work Phone: [facility] Work Phone: Start: 06-20-2023 End: 06-20-2023 Patient encounter procedure Louie Salomon MD Work Phone: Urology Comment on above: 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, unspecified stricture type (Primary Dx); Urinary urgency; Low bladder compliance; Urinary frequency Start: 06-20-2023 End: 06-20-2023 ambulatory STANTON Payne VELASCO II Facility:[facility] Start: 06-10-2023 Telephone encounter Radha Ramos MD Work Phone: Urology Comment on above: Patient Update Start: 06-08-2023 End: 06-08-2023 Patient encounter procedure Nurse Urol [facility] Work Phone: Urology Comment on above: 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, unspecified stricture type (Primary Dx); Post-traumatic stricture of anterior urethra; Self-catheterizes urinary bladder Start: 06-08-2023 Telephone encounter Radha Ramos MD Work Phone: Urology Start: 06-07-2023 Telephone encounter Radha Ramos MD Work Phone: Urology Start: 06-06-2023 Telephone encounter Radha Ramos MD Work Phone: Internal Medicine Comment on above: Medication Question Start: 06-04-2023 End: 06-04-2023 Patient encounter procedure Radha Ramos MD Work Phone: Urology Comment on above: Screening for genito urinary condition (Primary Dx) Start: 05-22-2023 Refill Nehemiah ríos PA-C Work Phone: Orthopaedics Comment on above: Refill Request Start: 05-15-2023 End: 05-15-2023 Patient encounter procedure Nithya Rhodes PA-C Work Phone: Urology Comment on above: Stricture of urethra l meatus in male, unspecified stricture type (Primary Dx) Start: 06-23-2022 ambulatory Kirstin Echeverria RT(R) Radi ology Comment on above: Radiology XR Start: 06-23-2022 End: 06-23-2022 Patient encounter procedure Kirstin Echeverria RT(R) [facility] Comment on above: Rotator cuff dysfunc tion, left (Primary Dx); History of failed repair of rotator cuff; Left shoulder pain, unspecified chronicity Start: 06-23-2022 End: 06-23-2022 Subsequent hospital visit by physician Georgina Gonzalez 1 Work Phone: Radiology Comment on above: Left shoulder pain, unspecified chronicity [M25.512] Start: 06-07-2022 End: 06-08-[address] TAMANNA JOSHUA Facility:[facility] Start: 05-31-2022 End: 05-31-2022 Patient encounter procedure Radha Ramos MD Work Phone: Urology Comment on above: Screening for genito urinary condition (Primary Dx); Stricture of male urethra, unspecified stricture type Start: 05-19-2022 End: 05-20-[address] STANTON VELASCO Facility:[facility] Start: 04-25-2022 End: 04-25-2022 Patient encounter procedure Nithya Rhodes PA-C Work Phone: Urology Comment on above: [...] right [Z96.611] Start: 11-07-2021 Telephone encounter Nurse Mallory brown Urology Comment on above: Appointment Start: 10-31-2021 Telephone encounter Fady romano MD Work Phone: Urology Comment on above: Orders Start: 10-13-[address] WATSON CENTENO Facility:[facility] Start: 07-15-2021 End: 07-16-[address] STANTON VELASCO Facility:[facility] Start: 06-23-2021 Telephone encounter Fady romano MD Work Phone: Urology Comment on above: request for cath sup plies Start: 06-16-2021 ambulatory No Pcp Antony Dennis [employer] Start: 06-14-2021 End: 06-14-2021 Patient encounter procedure Kev Ferrell MD Work Phone: Orthopaedics Comment on above: S/P reverse total sh oulder arthroplasty, right (Primary Dx) Start: 06-07-2021 End: 06-07-2021 Patient encounter procedure II Stanton Velasco Work Phone: [facility] Start: 05-24-2021 ambulatory Migdalia Leonardo RT(R) Radi ology Comment on above: Radiology XR Start: 05-24-2021 End: 05-24-2021 Patient encounter procedure Migdalia Leonardo RT(R) [facility] Comment on above: S/P reverse total sh oulder arthroplasty, right (Primary Dx) Start: 05-24-2021 End: 05-24-2021 Subsequent hospital visit by physician Georgina Gonzalez 1 Work Phone: Radiology Comment on above: Nontraumatic complet e tear of right rotator cuff [M75.121] Start: 05-16-2021 Orders Only Vivien Tay MA Orth opaedics Comment on above: Nontraumatic complet e tear of right rotator cuff (Primary Dx) Start: 05-09-2021 Telephone encounter Kev valencia MD Work Phone: Orthopaedics Comment on above: Patient Question Start: 04-12-2021 End: 05-23-2023 Preprocedural examination done Kev Ferrell MD Work Phone: [facility] Work Phone: Start: 01-04-2021 End: 01-04-2021 Subsequent hospital visit by physician [facility] [place] Work Phone: Radiology Comment on above: Nontraumatic complet e tear of right rotator cuff [M75.121] Start: 12-21-2020 End: 12-21-2020 Subsequent hospital visit by physician Georgina Gonzalez 1 Work Phone: Radiology Comment on above: Right shoulder pain, unspecified chronicity [M25.511] Start: 08-10-2020 End: 08-10-2020 Subsequent hospital visit by physician Mri [facility] (1.5t) Work Phone: Radiology Comment on above: Nontraumatic tear of right rotator cuff, unspecified tear extent [M75.101] Start: 06-29-2020 End: 06-29-2020 Subsequent hospital visit by physician [facility] Work Phone: Radiology Comment on above: History of lumbar fu sendy [Z98.1] Start: 04-15-2020 End: 04-15-2020 Subsequent hospital visit by physician Georgina Gonzalez 1 Work Phone: Radiology Comment on above: Pain in right hip [M 25.551] Start: 10-14-2019 End: 10-15-2019 Patient encounter procedure BOZENA DOMINGO Facility:[facility] Start: 05-04-2017 End: 05-23-2023 Patient encounter status Kev Ferrell MD Work Phone: 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.[employer] Work Phone: Start: 08-18-2024 XR SHOULDER RT MIN 2V D fatimah Velasco MD Work Phone: Start: 06-06-2024 CA ECHO DOPPLER COMPLETE Generic External Data Provider Start: 12-12-2023 [facility] BACTERIA UR CULT Ge neric External Data Provider Start: 12-12-2023 Urnls dip stick/tabl et rgnt auto w/o microscopy Louie Salomon MD Work Phone: Start: 06-04-2023 Urnls dip stick/tabl et rgnt auto w/o microscopy Radha Ramos MD Work Phone: Start: 04-06-2023 Lipid 1996 panel - S jodee or Plasma Nithya FU-C Work Phone: Start: 04-04-2023 Colonoscopy Stanton pozo MD Work Phone: Start: 08-21-2022 History of operative procedure on knee History of right knee joint replacement Stanton Velasco MD Work Phone: Start: 06-23-2022 Radex shoulder compl ete minimum 2 views Nehemiah FU-C Work Phone: Start: 05-31-2022 Urnls dip stick/tabl et rgnt auto w/o microscopy Radha Ramos MD Work Phone: Start: 11-15-2021 Radiologic examinati on knee 3 views Kev Ferrell MD Work Phone: Start: 11-08-2021 Radex shoulder compl ete minimum 2 views Nehemiah FU-C Work Phone: Start: 10-12-2021 Colonoscopy Nithya martinez PA-C Work Phone: Start: 06-07-2021 Urine culture II Stanton Velasco Work Phone: Start: 05-24-2021 Radex shoulder compl ete minimum 2 views Nehemiah Radha PA-C Work Phone: Start: 05-04-2021 End: 05-23-2023 H/O: artificial joint Aftercare following joint replacement surgery Stanton Velasco MD Work Phone: Start: 12-21-2020 Radex shoulder compl ete minimum 2 views Nehemiah Radha PA-C Work Phone: Start: 08-10-2020 Mri any jt upper ext remity w/o contrast matrl Stanton Kirkland PA-C Work Phone: Start: 06-29-2020 Ct lumbar spine w/o contrast material Himanshu Barba MD Work Phone: Start: 04-15-2020 Radex hip unilateral with pelvis 2-3 views Chris Espinoza MD Work Phone: Start: 05-29-2018 Adult depression scr eening assessment Kev Ferrell MD Work Phone: Back structure, excl uding neck (body structure) [facility] Comment on above: upper and lower Colonoscopy [facility] Comment on above: Due 2026 History of repair of musculotendinous cuff of shoulder History of failed repair of rotator cuff Nehemiah Radha PA-C Work Phone: Knee region structur e (body structure) [facility] Open heart surgery Forest roberto Shoulder region stru cture (body structure) [facility] Stent, device (physi deonte object) [facility] Comment on above: heart Plan of Treatment Date Care Activity Detail Author Start: 04-04-2033 Screening for malignant neoplasm of colon [facility] Start: 09-09-2031 Urine microalbumin profile DTaP,Tdap,Td Vaccine (3 - Td or Tdap) [facility] Start: 04-06-2028 Lipid panel Lipid Screening [facility] Start: 07-04-2026 Diabetes Screening Diabetes Screening [facility] Start: 02-25-2025 BP Controlled (<130/80) BP Controlled (<130/80) [facility] Start: 02-14-2025 Medicare Annual Wellness (AWV) Medicare Annual Wellness (AWV) [facility] Start: 10-28-2024 End: 10-28-2024 Patient encounter procedure 10/28/2024 11:45 AM EDT Office Visit [facility] [address] [facility] [place] [address] Kev Ferrell MD [address] [place] [address] 1 month follow up -right shoulder Orthopaedics Comment on above: 1 month follow up -right shoulder Start: 10-24-2024 End: 10-24-2024 Patient encounter procedure 10/24/2024 9:45 AM EDT Office Visit [facility] [address] [facility] [address] [place] [id number] Stanton Velasco MD [address] [facility] [address] [place] [address] [facility] Start: 10-17-2024 End: 10-17-2025 XR Chest 2 Views XR chest 2 views Imaging Routine Left-sided chest pain Expected: 10/17/2024, Expires: 10/17/2025 [facility] Work Phone: Comment on above: Expected: 10/17/2024, Expires: Start: 10-13-2024 Influenza vaccination Influenza Vaccine (#1) [facility] Start: 09-19-2024 End: 09-19-2024 Patient encounter procedure 09/19/2024 10:00 AM EDT Office Visit Orthopaedics [address] [facility] [place] [address] Kev Ferrell MD [address] [facility] [place] [address] 3 week follow up -right shoulder Orthopaedics Comment on above: 3 week follow up -right shoulder Start: 08-29-2024 End: 08-29-2024 Patient encounter procedure Orthopaedics Comment on above: Fractured Clavicle (R) 5 views right should er Start: 07-04-2024 BP Controlled (<130/80) BP Controlled (<130/80) [facility] Start: 06-19-2024 BP Controlled (<130/80) BP Controlled (<130/80) [facility] Start: 06-03-2024 BP Controlled (<130/80) BP Controlled (<130/80) [facility] Start: 05-22-2024 Medicare Annual Wellness (AWV) Medicare Annual Wellness (AWV) [facility] Start: 05-11-2024 Covid-19 Vaccine ( season) Covid-19 Vaccine () [facility] Start: 04-16-2024 End: 04-16-2024 Patient encounter procedure 04/16/2024 2:30 PM EST Office Visit [facility] [address] [place] [phone] Sukumar Mack, ASSESSMENT RN [address] [place] [address] Arrived [facility] Comment on above: Arrived Start: 04-12-2024 DIABETES SCREEN DIABETES SCREEN [facility] Start: 04-12-2024 Diabetes Screening Diabetes Screening [facility] Start: 04-11-2024 End: 04-11-2024 Patient encounter procedure 04/11/2024 1:30 PM EST Office Visit General Surgery [address] [place] [address] [place] [address] [place] [address] Inguinal hernia without obstruction or gangrene, recurrence not specified, unspe... General Surgery Comment on above: Inguinal hernia without obstruction or g angrene, recurrence not specified, unspe... Start: 04-06-2024 Hepatitis B surface antibody level LDL Cholesterol [facility] Start: 04-03-2024 End: 04-03-2024 Patient encounter procedure 04/03/2024 11:30 AM EST Office Visit [facility] [address] [place] [phone] Christina Scott PA [address] [place] [address] Arrived [facility] Comment on above: Arrived Start: 02-26-2024 End: 02-26-2024 Patient encounter procedure 02/26/2024 1:45 PM EST Office Visit General Surgery [address] [place] [address] [place] [address] [place] [address] Inguinal hernia without obstruction or gangrene, recurrence not specified, unspe... General Surgery Comment on above: Inguinal hernia without obstruction or g angrene, recurrence not specified, unspe... Start: 02-22-2024 End: 02-22-2024 Patient encounter procedure 02/22/2024 1:45 PM EST Office Visit General Surgery [address] [place] [address] [place] [address] [place] [address] Inguinal hernia without obstruction or gangrene, recurrence not specified, unspe... General Surgery Comment on above: Inguinal hernia without obstruction or g angrene, recurrence not specified, unspe... Start: 02-15-2024 End: 02-14-2025 Comprehensive metabolic 2000 panel - Serum or Plasma Comprehensive metabolic panel Lab Routine Atherosclerosis of [place] coronary artery of [place] heart without angina pectoris (CMS/HCC) Expected: 02/15/2024 (Approximate), Expires: 02/14/2025 [facility] Comment on above: Expected: 02/15/2024 (Approximate), Expi res: 02/14/2025 Start: 02-15-2024 End: 02-14-2025 Lipid 1996 panel - Serum or Plasma Lipid panel Lab Routine Atherosclerosis of [place] coronary artery of [place] heart without angina pectoris (CMS/HCC) Dyslipidemia (CMS/HCC) Expected: 02/15/2024 (Approximate), Expires: 02/14/2025 [facility] Comment on above: Expected: 02/15/2024 (Approximate), Expi res: 02/14/2025 Start: 02-15-2024 End: 02-15-2024 Patient encounter procedure 02/15/2024 9:30 AM EST Office Visit [facility] [address] [facility] [address] [place] [address] Stanton Velasco MD [address] [facility] [address] [place] [address] Arrived [facility] Comment on above: Arrived Start: 02-13-2024 Advance Directive Discussion Advance Directive Discussion [facility] Start: 02-13-2024 Medicare Advantage Annual Wellness Visit Medicare Advantage Annual Wellness Visit [facility] Start: 01-17-2024 End: 01-17-2024 Patient encounter procedure 01/17/2024 2:00 PM EST Office Visit Urology [address] [place] [address] Fady Dye MD [address] [place], [place] [id number] NEW UROLOGY euromodulation for overactive bladder referred by Dr Aki cronin Urology Comment on above: NEW UROLOGY euromodulation for overactiv e bladder referred by Dr Aki cronin Start: 12-12-2023 End: 12-12-2023 Patient encounter procedure 12/12/2023 1:30 PM EDT Office Visit Urology [address] [place] [address] Louie Salomon MD [address] [place] [address] follow up Urology Comment on above: follow up Start: 11-02-2023 End: 11-02-2023 Patient encounter procedure 11/02/2023 11:30 AM EDT Office Visit [facility] [address] [facility] [address] [place] [phone] Stanton Velasco MD [address] [facility] [address] [place] [address] Arrived [facility] Comment on above: Arrived Start: 10-14-2023 Covid-19 Vaccine ( season) Covid-19 Vaccine () [facility] Start: 10-14-2023 Influenza vaccination Influenza Vaccine (#1) [facility] Start: 09-05-2023 RSV Vaccine (1 - 1-dose 75+ series) RSV Vaccine (1 - 1-dose 75+ series) [facility] Start: 08-31-2023 End: 08-31-2023 Nursing evaluation of patient and report 08/31/2023 11:00 AM EDT Nurse Visit Urology [address] [address] [employer] [address] [place] [address] [facility] Comment on above: [facility] Start: 08-15-2023 End: 11-14-2023 Bacteria identified in Urine by Culture [facility] Comment on above: Expected: 08/15/2023, Expires: Start: 08-15-2023 End: 11-14-2023 Urinalysis complete panel - Urine [facility] Work Phone: Comment on above: Expected: 08/15/2023, Expires: Start: 08-02-2023 End: 08-02-2023 Admission to same day surgery center 08/02/2023 8:45 AM EDT - 08/02/2023 10:00 AM EDT Surgery [facility] [address] [place] [address] Louie Salomon MD [address] [place] [address] DILATION OF URETHRAL STRICTURE BY PASSAGE OF SOUND OR URETHRAL DILATOR, MALE; INITIAL [facility] Comment on above: DILATION OF URETHRAL STRICTURE BY PASSAG E OF SOUND OR URETHRAL DILATOR, MALE; INITIAL Start: 08-02-2023 End: 08-02-2023 Cystourethroscopy inj chemodenervation bladder CYSTOURETHROSCOPY W/INJECTION(S) FOR CHEMODENERVATION OF THE BLADDER 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 stricture Overactive bladder 08/02/2023 8:45 AM EDT [facility] Start: 08-02-2023 End: 08-02-2023 Dilat urethral strix dilator male 1st DILATION OF URETHRAL STRICTURE BY PASSAGE OF SOUND OR URETHRAL DILATOR, MALE; INITIAL 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 stricture Overactive bladder 08/02/2023 8:45 AM EDT [facility] Start: 08-02-2023 Subsequent hospital visit by physician 08/02/2023 8:45 AM EDT Hospital Encounter [address] [address] Louie Salomon MD [address] [place] [address] 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 stricture [N99.114] [facility] Comment on above: 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 stricture [ N99.114] Start: 06-20-2023 End: 06-20-2023 Patient encounter procedure 06/20/2023 10:30 AM EDT Office Visit Urology [address] [place] [address] Louie Salomon MD [address] [place] [address] ramos Urology Comment on above: ref by dr ramos Start: 06-08-2023 End: 06-08-2023 Patient encounter procedure Urology Comment on above: cath removal (does ISC) cath removal (does I SC); possible UC with str. cath; pt. needs 16fr. samples as he only has 14fr at home Start: 04-12-2023 Covid-19 Vaccine ( season) Covid-19 Vaccine () [facility] Start: 02-12-2023 Advance Directive Discussion Advance Directive Discussion [facility] Start: 02-12-2023 Behavioral Health Screening Behavioral Health Screening [facility] Start: 02-12-2023 Depression Assessment Depression Assessment [facility] Start: 10-13-2022 Influenza vaccination INFLUENZA (#1) [facility] Start: 10-12-2022 Screening for malignant neoplasm of colon [facility] Start: 03-20-2022 COVID-19 VACCINE (6 - Moderna series) COVID-19 VACCINE (6 - Moderna series) [facility] Start: 02-12-2022 ADVANCE DIRECTIVE DISCUSSION ADVANCE DIRECTIVE DISCUSSION [facility] Start: 02-12-2022 DEPRESSION ASSESSMENT DEPRESSION ASSESSMENT [facility] Start: 10-13-2021 Influenza vaccination INFLUENZA (#1) [facility] Start: 10-07-2021 COVID-19 VACCINE (5 - Booster for Moderna series) COVID-19 VACCINE (5 - Booster for Moderna series) [facility] Start: 04-13-2021 COVID-19 VACCINE (4 - Booster for Moderna series) COVID-19 VACCINE (4 - Booster for Moderna series) [facility] Start: 02-12-2021 ADVANCE DIRECTIVE DISCUSSION ADVANCE DIRECTIVE DISCUSSION [facility] Start: 02-12-2021 DEPRESSION ASSESSMENT DEPRESSION ASSESSMENT [facility] Start: 02-08-2021 COVID-19 VACCINE (4 - Booster for Moderna series) COVID-19 VACCINE (4 - Booster for Moderna series) [facility] Start: 05-30-2019 Adult depression screening assessment DEPRESSION SCREENING [facility] Start: 11-12-2018 PNEUMOCOCCAL: 65+ (2 - PCV) PNEUMOCOCCAL: 65+ (2 - PCV) [facility] Start: 2008 RSV Vaccine (1 - 1-dose 60+ series) RSV Vaccine (1 - 1-dose 60+ series) [facility] Start: 1993 COLOGUARD (FIT-DNA) COLOGUARD (FIT-DNA) [facility] Start: [address] [facility] Start: 1993 COLORECTAL CANCER SCREENING COLORECTAL CANCER SCREENING [facility] Start: [address] [facility] Start: 1993 FECAL OCCULT BLOOD FECAL OCCULT BLOOD [facility] Start: 1993 Screening for malignant neoplasm of colon [facility] Start: [address] [facility] Start: 09-05-1983 LIPID SCREEN LIPID SCREEN [facility] Start: 09-05-1967 Urine microalbumin profile DTAP,TDAP,TD (1 - Tdap) [facility] Start: 1966 ANNUAL PCP TEAM CHRONIC DISEASE VISIT ANNUAL PCP TEAM CHRONIC DISEASE VISIT [facility] Start: 1966 Anxiety Screening Anxiety Screening [facility] Start: 1966 BP CONTROLLED (<130/80) BP CONTROLLED (<130/80) [facility] Start: 1966 Depression Screening Depression Screening [facility] Start: 1966 Hepatitis B surface antibody level LDL CHOLESTEROL [facility] Start: 1966 HEPATITIS C SCREENING HEPATITIS C SCREENING [facility] Start: 1966 Hepatitis C screening Hepatitis C Screening [facility] Start: 1948 ABDOMINAL AORTIC ANEURYSM SCREENING ABDOMINAL AORTIC ANEURYSM SCREENING [facility] Start: 1948 Abdominal aortic aneurysm screening Abdominal Aortic Aneurysm Screening [facility] Start: 1948 Screening for malignant neoplasm of colon [facility] Bacteria identified in Urine by Culture [facility] Work Phone: Bacteria identified in Urine by Culture URINE CULTURE Microbiology Routine Stricture of male urethra, unspecified stricture type Self-catheterizes urinary bladder 06/08/2023 3:38 PM EDT [facility] Work Phone: Bacteria identified in Urine by Culture URINE CULTURE Microbiology Routine Urinary urgency 12/12/2023 1:56 PM EDT [facility] Work Phone: CBC W Auto Different ial panel - Blood CBC and differential Lab Routine Atherosclerosis of [place] coronary artery of [place] heart without angina pectoris (CMS/HCC) Ordered: 02/15/2024 [facility] [employer] Work Phone: Comment on above: Ordered: 02/15/2024 CT Chest WO contrast CT chest wo IV contrast Imaging Routine Multiple nodules of lung Ordered: 02/15/2024 [facility] Comment on above: Ordered: 02/15/2024 CYSTO DIAGNOSTIC CYSTO DIAGNOSTI C Procedures Routine Stricture of male urethra, unspecified stricture type 1 Occurrences starting 04/25/2022 [facility] Work Phone: Comment on above: 1 Occurrences starting 04/25/2022 CYSTO DIAGNOSTIC CYSTO DIAGNOSTI C Procedures Routine Stricture of urethral meatus in male, unspecified stricture type Ordered: 05/15/2023 [facility] Work Phone: Comment on above: Ordered: 05/15/2023 Cystourethroscopy CYSTO.PANENDO Procedures Routine Urinary retention Self-catheterizes urinary bladder Benign prostatic hyperplasia with weak urinary stream 1 Occurrences starting 10/31/2021 [facility] Work Phone: Comment on above: 1 Occurrences starting 10/31/2021 PERIPHERAL NERVE EVALUATION (PNE) PERIPHERAL NERVE EVALUATION (PNE) Procedures Routine Overactive bladder Incomplete bladder emptying Ordered: 02/18/2024 [facility] Work Phone: Comment on above: Ordered: 02/18/2024 Prostate specific Ag [Mass/volume] in Serum or Plasma PSA Lab Routine Prostate cancer screening Ordered: 02/15/2024 [facility] Comment on above: Ordered: 02/15/2024 End: 07-20-2024 US Kidney - bilateral and Urinary bladder US KIDNEY/BLADDER Radiology Routine Stricture of male urethra, unspecified stricture type Urinary urgency 1 Occurrences starting 06/20/2023 until 07/20/2024 [facility] Work Phone: Comment on above: 1 Occurrences starting 06/20/2023 until 07/20/2024 End: 12-10-2022 XR KNEE POST OP 3V AP/LAT/MERCHANT RIGHT XR KNEE POST OP 3V AP/LAT/MERCHANT RIGHT Radiology Routine Chronic knee pain after total replacement of right knee joint 1 Occurrences starting 11/11/2021 until 12/10/2022 [facility] Work Phone: Comment on above: 1 Occurrences starting 11/11/2021 until 12/10/2022 XR KNEE POST OP 3V AP/LAT/MERCHANT RIGHT XR KNEE POST OP 3V AP/LAT/MERCHANT RIGHT Radiology Routine Chronic knee pain after total replacement of right knee joint 11/15/2021 2:22 PM EDT [facility] Work Phone: End: 06-15-2022 XR SHOULDER GENERAL 3V OR MORE AP/TRUE AP/OTHER RIGHT XR SHOULDER GENERAL 3V OR MORE AP/TRUE AP/OTHER RIGHT Radiology Routine Nontraumatic complete tear of right rotator cuff 1 Occurrences starting 05/16/2021 until 06/15/2022 [facility] Work Phone: Comment on above: 1 Occurrences starting 05/16/2021 until 06/15/2022 [facility] Immunizations Immunization Date Immunization Notes Care Provider Mary bui 02-20-2024 ABRYSVO - Respirator y syncytial virus (RSV), vaccine, bivalent, protein subunit RSV prefusion F, diluent reconstituted, 0.5 mL, PF Christina FU Work Phone: [facility] 11-12-2023 influenza, high dose seasonal, preservative-free Stanton Velasco MD Work Phone: [facility] 11-12-2023 influenza virus vacc ine, unspecified formulation Stanton Velasco MD Work Phone: [facility] 12-12-2022 SARS-COV-2 (COVID-19 ) vaccine, mRNA, spike protein, LNP, PF, 50 mcg/0.5 mL Stanton Velasco MD Work Phone: [facility] 11-09-2022 Influenza, High-dose Seasonal, Quadrivalent, Preservative Free Stanton Velasco MD Work Phone: [facility] 11-09-2022 influenza virus vacc ine, unspecified formulation Daija Lares PA-C Work Phone: [facility] 11-17-2021 Influenza, High-dose Seasonal, Quadrivalent, Preservative Free Stanton Velasco MD Work Phone: [facility] 11-17-2021 Moderna Bivalent Hayes ster Vaccination Stanton Velasco MD Work Phone: [facility] 09-08-2021 Pneumococcal Conjuga te PCV 20 Stanton Velasco MD Work Phone: [facility] 09-08-2021 tetanus toxoid, redu nurys diphtheria toxoid, and acellular pertussis vaccine, adsorbed Stanton Velasco MD Work Phone: [facility] 05-11-2021 tuberculin skin test ; purified protein derivative solution, intradermal Stanton Velasco MD Work Phone: [facility] 05-04-2021 tuberculin skin test ; purified protein derivative solution, intradermal Stanton Velasco MD Work Phone: [facility] 12-14-2020 Rocio SARS-CoV-2 Stanton mcconnell MD Work Phone: [facility] 11-16-2020 influenza, high-dose , quadrivalent vaccine (FLUZONE HIGH DOSE QUADRIVALENT) Kev Ferrell MD Work Phone: [facility] 11-16-2020 zoster vaccine recombinant Kev Ferrell MD Work Phone: [facility] 11-16-2020 zoster vaccine, live Stanton Velasco MD Work Phone: [facility] 06-23-2020 zoster vaccine recombinant Kev Ferrell MD Work Phone: [facility] 06-23-2020 zoster vaccine, live Stanton Velasco MD Work Phone: [facility] 05-05-2020 Rocio SARS-CoV-2 Stanton mcconnell MD Work Phone: [facility] 04-08-2020 Rocio SARS-CoV-2 Stanton mcconnell MD Work Phone: [facility] 12-16-2019 influenza, high dose seasonal, preservative-free Kev Ferrell MD Work Phone: [facility] 11-07-2019 influenza, high-dose , quadrivalent vaccine (FLUZONE HIGH DOSE QUADRIVALENT) Kev Ferrell MD Work Phone: [facility] 10-31-2018 influenza, high dose seasonal, preservative-free Kev Ferrell MD Work Phone: [facility] 07-04-2018 tetanus toxoid, redu nurys diphtheria toxoid, and acellular pertussis vaccine, adsorbed Stanton Velasco MD Work Phone: [facility] 07-04-2018 zoster vaccine recombinant Stanton Velasco MD Work Phone: [facility] 12-28-2017 zoster vaccine recombinant Stanton Velasco MD Work Phone: [facility] 12-20-2017 influenza, high dose seasonal, preservative-free Kev Ferrell MD Work Phone: [facility] 11-12-2017 pneumococcal polysaccharide vaccine, 23 valent Kev Ferrell MD Work Phone: [facility] 11-13-2014 pneumococcal conjuga te vaccine, 13 valent Stanton Velasco MD Work Phone: [facility] 09-02-2004 TD(adult) unspecifie d formulation Stanton Velasco MD Work Phone: [facility] 08-21-2003 pneumococcal vaccine , unspecified formulation Stanton Velasco MD Work Phone: [facility] Payers Date Payer Category Payer Unknown [id number] 2021 Medicare DEVOTED MEDICARE [facility] [id number] 2021-Present [phone] [address] [place] [address] [facility] [place] [place] [id number] 2021 Medicare (Managed Care) 1.2. [id number] 5 2020 Unknown [id number] 2017 Private Health Insurance [employer] [place] [id number] .[id number] 2017 Unknown [employer] 2N D [id number] 2017-Present [phone] [address] [address] [place] [id number] Indemnity [id number] .[id number] 2017 Unknown [id number] [id number] .[id number] 2017 Unknown [id number] 2015 Medicare [id number] .[id number] 1959 Self-pay [id number] 1948 Unknown [id number] 2.16.840.1.574788.3.579 .2.647 1948 Unknown [id number] 2.16.840.1.430557.3.579 .2.593 1948 Unknown [id number] 2.16.840.1.337830.3.579 .2.593 1948 Unknown [id number] 2.16.840.1.633426.3.579 .2.593 1948 Unknown [id number] 2.16.840.1.178356.3.579 .2.593 1948 Unknown [id number] 2.16.840.1.147728.3.579 .2.593 1948 Unknown [id number] 2.16.840.1.795079.3.579 .2.593 1948 Unknown [id number] 2.16.840.1.426931.3.579 .2.593 1948 Unknown [id number] 2.16.840.1.035187.3.579 .2.727 1948 Unknown [id number] 2.16.840.1.316621.3.579 .2.727 1948 Unknown [id number] 2.16.840.1.774648.3.579 .2.727 1948 Unknown [id number] 2.16.840.1.108535.3.579 .2.727 1948 Unknown [id number] 2.16.840.1.641997.3.579 .2.1259 1948 Unknown [id number] 2.16.840.1.624010.3.579 .2.1259 1948 Unknown [id number] 2.16.840.1.731249.3.579 .2.1259 1948 Unknown [id number] 2.16.840.1.554276.3.579 .2.1259 1948 Unknown [id number] 2.16.840.1.087115.3.579 .2.1259 1948 Unknown [id number] 2.16.840.1.748048.3.579 .2.1259 Medicare Self Pay [id number] Private Health Insurance [facility] [id number] Unknown Self Pay [id number] Social History Date Type Detail Facility Start: 11-13-2016 End: 12-12-2023 Tobacco smoking status NHIS Ex-smoker [facility] Start: 11-14-1987 End: 11-13-1997 History of tobacco use Current smoker [facility] Start: 11-14-1987 End: 11-13-1997 History of tobacco use Cigarette Smoker [facility] Start: 11-13-2016 End: 10-20-2022 Cigarettes smoked current (pack per day) - Reported 1.25 [facility] Work Phone: Start: 11-13-2016 End: 07-06-2022 Tobacco use and exposure Smokeless tobacco non-user [facility] Start: 05-02-2021 End: 12-12-2023 Alcohol intake Current drinker of alcohol (finding) [facility] Start: 12-19-2019 History SDOH Alcohol Frequency 2 [facility] Start: 12-19-2019 History SDOH Alcohol Std Drinks 1 [facility] Start: 01-02-2019 History SDOH Alcohol Comment 2 cans of beer per year. [facility] Start: 1950 Sex Assigned At Not on file [facility] Start: 03-16-2020 End: 11-15-2021 Exposure to SARS-CoV-2 (event) Not sure [facility] Work Phone: Start: 11-06-2018 End: 07-06-2022 Tobacco smoking status NHIS Never smoked tobacco (finding) [facility] Start: 1950 Sex Assigned At Male [facility] Start: 12-19-2019 End: 10-20-2022 Alcohol Use Disorder Identification Test - Consumption [AUDIT-C] [facility] Work Phone: How often to you hav e a drink containing alcohol? Monthly or less [facility] Work Phone: How many standard dr inks containing alcohol do you have on a typical day? [address] [facility] Work Phone: How often do you hav e 6 or more drinks on 1 occasion? Never [facility] Work Phone: Start: 03-23-[address] [facility] Start: 07-19-2023 Gender identity Identifies as male gender (finding) [facility] Start: 11-02-2023 End: 10-17-2024 Alcoholic beverage intake Lifetime non-drinker (finding) [facility] [...] to buy more. Never true [facility] Sexual Orientation [facility] Start: 06-06-2016 Sex Male (finding) [facility] Medical Equipment Procedure Code Equipment Code Equipment Origin al Text Equipment Identifier Dates Mxu-Fb-S-Kind Im plant - [id number] Start: 05-29-2017 Comment on above: Description: 11mm in line plate Bao-Sg-M-Kind Im plant - [id number] Start: 05-29-2017 Comment on above: Description: hinge p late Prolong Rev Shou lder Prosthesis Cup 36mm +3mm Retentive Thick [id number] Start: 05-02-2021 Stem Hum 83mm 14 mm Cmprh Por - [id number] Start: 05-02-2021 Rev Shoulder Prosthesis Body 40mm +5mm Thick +0mm Taper Offset [id number] Start: 05-02-2021 Insert Triathlon 7 10mm Tibial Bearing Condylar Stabilize Sterile Knee - [id number] Start: 10-30-2018 Baseplate Triath vicenta Tritanium 7 Tibial Knee - [id number] Start: 10-30-2018 Component Tritan ium 38mm Metal 11mm Patellar Asymmetric Knee - [id number] Start: 10-30-2018 Component Triath vicenta 7 Pa Femoral Cruciate Retain Bead Knee Right - [id number] Start: 10-30-2018 Component Comprehensive Versa-Dial 36mm Standard Glenoid Glenosphere - [id number] Start: 05-02-2021 Lead Interstim 1 .27mm 3mm Space Straight 33cm Neurostimulator Inline - [id number] Start: 07-06-2017 Lead Interstim 1 .27mm 3mm Space Straight 33cm Neurostimulator Inline - [id number] Start: 07-20-2017 Plate Canopy 9mm Bone Shelf Inline Spine - [id number] Start: 05-29-2017 Baseplate Comprehensive 25mm Mini Glenoid Taper Adapter Reverse Shoulder - [id number] Start: 05-02-2021 Screw 2.2mm 6mm Bone Self Drilling - [id number] Start: 05-29-2017 Screw 2.2mm Reli dmitri Slfdrl 5mm - [id number] Start: 05-29-2017 Screw Comprehens rowena 4.75mm 3.5mm Titanium 15mm Bone Fix Angle Lock - [id number] Start: 05-02-2021 Screw Comprehens rowena 3.5mm 30mm Bone Central Hexagon Multimedia Project Manager 6.5mm Shoulder - [id number] Start: 05-02-2021 Screw Comprehens rowena 4.75mm 3.5mm Hexagon 20mm Bone Variable Angle Nonlock - [id number] Start: 05-02-2021 Screw Comprehens rowena 3.5mm Hexagon 20mm Bone Fix Angle Lock Reverse 4.75mm - [id number] Start: 05-02-2021 Screw Comprehens rowena 3.5mm Hexagon 30mm Bone Fix Angle Lock Reverse 4.75mm - [id number] Start: 05-02-2021 Functional Status Date Assessment Result Facility 06-30-2024 Functional Status N/A [facility] 05-04-2021 Are you deaf, or do you have serious difficulty hearing No 05/04/2021 3:26 PM Corry Yu RN No [facility] 05-04-2021 Are you blind, or do you have serious difficulty seeing, even when wearing glasses No 05/04/2021 3:26 PM Corry Yu RN No [facility] 05-04-2021 Do you have serious difficulty walking or climbing stairs Yes 05/04/2021 3:26 PM Corry Yu, LEATHA Yes [facility] 05-04-2021 Because of a physica l, mental, or emotional condition, do you have difficulty doing errands alone such as visiting a physician's office or shopping Yes 05/04/2021 3:26 PM EDT Corry Schaeffer, RN Yes [facility] 10-31-2018 Do you have difficul ty dressing or bathing No 10/31/2018 3:35 PM EDT Dora Moreira, RN No [facility] Mental Status Date Assessment Result Facility 05-04-2021 Because of a physica l, mental, or emotional condition, do you have serious difficulty concentrating, remembering, or making decisions No 05/04/2021 3:26 PM EDT Corry Schaeffer, RN No [facility] Clinical Notes 12-21-2020 to 10-17-2024 Stanton Velasco MD - 10/17/2024 9:15 AM Kev Albarran MD - 08/29/2024 8:32 AM Rigo Cuenca RT(R) - 08/29/2024 8:16 AM EDTPatically Mack NP - 04/16/2024 2:30 PM EST Note Date & Type Note Facility 10-17-2024 History of Present illness Narrative Images from [...] BY MOUTH BEFORE bedtime 900 mL 3 lisinopril 20 MG [...] layer on neck, chest) TWICE DAILY NEEDED linaCLOtide (Linzess) 290 MCG capsule Take [...] Wt 218 lb SpO2 97% BMI 31.28 kg/m Smoking Status Never BSA 2.21 m Review of Systems Objective Physical Exam [...] typical for angina Coronary artery disease involving [place] coronary artery of [place] heart with refractory angina pectoris - nitroglycerin [...] F/U med changes. documented in this encounter [facility] 09-19-2024 Note HNO ID: [id number] Author: KEV FERRELL MD Service: ? Author Type: Physician Type: Progress Notes Filed: 09/19/2024 10:26 Note Text: This document has been created with the use of voice recognition technology. It may contain inaccuracies: misspellings, inaccurate syntax or word sense that escaped review. HISTORY: Fahad is a 74 year old male. He is here following up for right shoulder distal clavicle fracture sustained 5 weeks ago. Has history of reverse total shoulder. He states pain is improved. No new complaints HISTORY OF PRESENT ILLNESS: PAIN EVALUATION 09/19/2024 1000 Pain Level: 7 Pain Location: Shoulder-Right Description: Sharp;Sore Duration Units: Weeks Frequency: Intermittent Intervention/Comfort measure: Reposition;Relaxation;Positioning ;Cold The patient's past medical history, surgical history, social history, family history, medications and allergies were reviewed with the patient today and are available in the chart for further review. EXAMINATION: Examination of the shoulder demonstrating the skin to be intact. No erythema. No ecchymosis. No arm swelling. Intact light sensation upper lateral border of the deltoid. No irritability with passive range of motion. Passive/active orward flexion to 100 without pain. Patient has active extension of the wrist and thumb. Biceps contour intact and non-painful/ no obvious sag. Good radial pulse Intact sensation to light touch distally No pain with neck ROM RADIOGRAPHS: XR obtained today, personally reviewed by myself demonstrating distal clavicle fracture in unchanged position. Reverse arthroplasty IMPRESSION: Encounter Diagnosis ICD-10-CM 1. Closed nondisplaced fracture of acromial end of right clavicle with routine healing, subsequent encounter S42.034D XR CLAVICLE 2V RIGHT Procedures PLAN: Right distal clavicle fracture with history of reverse total shoulder. Has had improvement. I again discussed activity modification. He is going to follow-up in 1 month. Kev Ferrell MD [facility] 09-19-2024 Note HNO ID: [id number] Author: KIRSTIN ECHEVERRIA RT(R) Service: ? Author Type: Technologist Type: Progress Notes Filed: 09/19/2024 09:48 Note Text: Radiology Service Progress Note PATIENT NAME: Fahad Sotelo DATE OF SERVICE: September 19, 2024 TIME: 9:48 AM PATIENT IDENTITY VERIFICATION COMPLETED USING TWO (2) IDENTIFIERS: Name and Date of confirmed by patient verbally. FALL SCREENING: Has the patient had 2 falls in the last year or 1 fall with injury or currently using an Ambulatory Assistive Device (Walker, Cane, Wheelchair, Crutches, etc.)? No PATIENT GENDER DATA: Assigned male at PATIENT RELEVANT IMPLANT DATA REVIEWED: Not Applicable PATIENT PRESENTS WITH AN IMPLANTABLE OR ATTACHED ACTIVE DIRECTORY ADMINISTRATOR: No RADIOLOGY DEPARTMENT: General X-ray: Exam(s) Completed: Upper Extremity X-Ray(s): Clavicle, right PERIPHERAL IV DATA: Not applicable SIGNED BY: Kirstin Echeverria, RT(R) September 19, 2024 9:48 AM [facility] 08-29-2024 Note HNO ID: [id number] Author: KEV FERRELL MD Service: ? Author Type: Physician Type: Progress Notes Filed: 08/29/2024 08:39 Note Text: This document has been created with the use of voice recognition technology. It may contain inaccuracies: misspellings, inaccurate syntax or word sense that escaped review. The patient is seen at the request of self for evaluation and an opinion regarding treatment. A copy of this report will remain in the shared medical record CHIEF COMPLAINT: Fahad Sotelo is a 73 year old Right hand dominant male who presents today for new evaluation of right distal clavicle fracture. HISTORY OF PRESENT ILLNESS: PAIN EVALUATION 08/29/2024 0818 Pain Location: Shoulder-Right Description: Aching;Sore Duration Amount of Time: 2 Duration Units: Weeks Frequency: Continuous Intervention/Comfort measure: Reposition;Relaxation;Positioning ;Cold HISTORY: Fahad Sotelo has complains of 2-week history of right shoulder pain after falling at a grocery store and injuring his right shoulder. He has significant orthopedic history to his right shoulder. He underwent right reverse total shoulder arthroplasty on 05/02/2021. He states he has had some improvement. No neurologic complaints No other musculoskeletal complaints ALLERGIES: ALLERGIES Allergen Reactions Bee Pollen Swelling Bee Sting Swelling Hay Fever [Seasonal* Other: See Comments Sneezing. Oxybutynin Other: See Comments Other Reaction(s): Constipation Venom-Honey Bee Other: See Comments, Swelling Other Reaction(s): Unknown Trospium Other: See Comments Other Reaction(s): Xerostomia PAST MEDICAL HISTORY: PAST MEDICAL HISTORY Diagnosis Date CAD (coronary artery disease) 2004 MT in 1997. Had a stent placed in 2008 c/b coronary artery dissection and that lead to a CABG x1 in 2008 Former smoker quit 1997 Hyperlipidemia Hypertension Intermittent self-catheterization of bladder Urge incontinence of urine SOCIAL HISTORY: Tobacco Use: Types: Cigarettes EXAMINATION: GENERAL: Elderly ORIENTATION: Alert and oriented to person place and time HABITUS: Normal GAIT: Normal, the patient did not have trouble getting onto the exam table. right shoulder exam: skin intact no erythema, no ecchymosis, no arm swelling no irritability with PROM active equals passive ROM forward elevation 120 Tenderness over the distal clavicle Some slight ecchymosis intact sensation to light touch distally good radial pulse no pain with neck ROM RADIOGRAPHS: XR Obtained today and personally reviewed by myself demonstrating reverse total shoulder arthroplasty good position. No evidence of fracture around the implant. Distal clavicle fracture distal to the AC ligaments IMPRESSION: Encounter Diagnosis ICD-10-CM 1. Right shoulder pain, unspecified chronicity M25.511 XR SHOULDER ORTHO 4V AP/TRUE AP/LAT/OUTLET RIGHT 2. Closed nondisplaced fracture of acromial end of right clavicle, initial encounter S42.034A Procedures Plan: Right distal clavicle fracture. Proceed with conservative treatment. A sling was provided. Discussed icing and activity modification. Follow-up 2 to 3 weeks Kev Ferrell MD [facility] 08-29-2024 History of Present illness Narrative This document has been created with the use of voice recognition technology. It may contain inaccuracies: misspellings, inaccurate syntax or word sense that escaped review. The patient is seen at the request of self for evaluation and an opinion regarding treatment. A copy of this report will remain in the shared medical record CHIEF COMPLAINT: Fahad Sotelo is a 73 year old Right hand dominant male who presents today for new evaluation of right distal clavicle fracture. HISTORY OF PRESENT ILLNESS: PAIN EVALUATION 08/29/2024 0818 Pain Location: Shoulder-Right Description: Aching;Sore Duration Amount of Time: 2 Duration Units: Weeks Frequency: Continuous Intervention/Comfort measure: Reposition;Relaxation;Positioning ;Cold HISTORY: Fahad Sotelo has complains of 2-week history of right shoulder pain after falling at a grocery store and injuring his right shoulder. He has significant orthopedic history to his right shoulder. He underwent right reverse total shoulder arthroplasty on 05/02/2021. He states he has had some improvement. No neurologic complaints No other musculoskeletal complaints ALLERGIES: ALLERGIES Allergen Reactions Bee Pollen Swelling Bee Sting Swelling Hay Fever [Seasonal* Other: See Comments Sneezing. Oxybutynin Other: See Comments Other Reaction(s): Constipation Venom-Honey Bee Other: See Comments, Swelling Other Reaction(s): Unknown Trospium Other: See Comments Other Reaction(s): Xerostomia PAST MEDICAL HISTORY: PAST MEDICAL HISTORY Diagnosis Date CAD (coronary artery disease) 2004 MT in 1997. Had a stent placed in 2008 c/b coronary artery dissection and that lead to a CABG x1 in 2008 Former smoker quit 1997 Hyperlipidemia Hypertension Intermittent self-catheterization of bladder Urge incontinence of urine SOCIAL HISTORY: Tobacco Use: Types: Cigarettes EXAMINATION: GENERAL: Elderly ORIENTATION: Alert and oriented to person place and time HABITUS: Normal GAIT: Normal, the patient did not have trouble getting onto the exam table. right shoulder exam: skin intact no erythema, no ecchymosis, no arm swelling no irritability with PROM active equals passive ROM forward elevation 120 Tenderness over the distal clavicle Some slight ecchymosis intact sensation to light touch distally good radial pulse no pain with neck ROM RADIOGRAPHS: XR Obtained today and personally reviewed by myself demonstrating reverse total shoulder arthroplasty good position. No evidence of fracture around the implant. Distal clavicle fracture distal to the AC ligaments IMPRESSION: Encounter Diagnosis ICD-10-CM 1. Right shoulder pain, unspecified chronicity M25.511 XR SHOULDER ORTHO 4V AP/TRUE AP/LAT/OUTLET RIGHT 2. Closed nondisplaced fracture of acromial end of right clavicle, initial encounter S42.034A Procedures Plan: Right distal clavicle fracture. Proceed with conservative treatment. A sling was provided. Discussed icing and activity modification. Follow-up 2 to 3 weeks Kev Ferrell MD documented in this encounter [facility] 08-29-2024 Note HNO ID: [id number] Author: RIGO JANG RT(R) Service: ? Author Type: Technologist Type: Progress Notes Filed: 08/29/2024 08:17 Note Text: Radiology Service Progress Note PATIENT NAME: Fahad Sotelo DATE OF SERVICE: August 29, 2024 TIME: 8:16 AM PATIENT IDENTITY VERIFICATION COMPLETED USING TWO (2) IDENTIFIERS: Name and Date of confirmed by patient verbally. FALL SCREENING: Has the patient had 2 falls in the last year or 1 fall with injury or currently using an Ambulatory Assistive Device (Walker, Cane, Wheelchair, Crutches, etc.)? No PATIENT GENDER DATA: Assigned male at PATIENT RELEVANT IMPLANT DATA REVIEWED: Not Applicable PATIENT PRESENTS WITH AN IMPLANTABLE OR ATTACHED ACTIVE DIRECTORY ADMINISTRATOR: No RADIOLOGY DEPARTMENT: General X-ray: Exam(s) Completed: Upper Extremity X-Ray(s): Shoulder, AP / TRUE AP / AXILLARY / SUPRA OUTLET right PERIPHERAL IV DATA: Not applicable SIGNED BY: RT GIOVANNI(R) August 29, 2024 8:16 AM [facility] 08-29-2024 History of Present illness Narrative Radiology Service Progress Note PATIENT NAME: Fahad Sotelo DATE OF SERVICE: August 29, 2024 TIME: 8:16 AM PATIENT IDENTITY VERIFICATION COMPLETED USING TWO (2) IDENTIFIERS: Name and Date of confirmed by patient verbally. FALL SCREENING: Has the patient had 2 falls in the last year or 1 fall with injury or currently using an Ambulatory Assistive Device (Walker, Cane, Wheelchair, Crutches, etc.)? No PATIENT GENDER DATA: Assigned male at PATIENT RELEVANT IMPLANT DATA REVIEWED: Not Applicable PATIENT PRESENTS WITH AN IMPLANTABLE OR ATTACHED ACTIVE DIRECTORY ADMINISTRATOR: No RADIOLOGY DEPARTMENT: General X-ray: Exam(s) Completed: Upper Extremity X-Ray(s): Shoulder, AP / TRUE AP / AXILLARY / SUPRA OUTLET right PERIPHERAL IV DATA: Not applicable SIGNED BY: RT GIOVANNI(R) August 29, 2024 8:16 AM documented in this encounter [facility] 08-26-2024 Instructions Kristal Hare APRN.SAMPLE BOX MAKER - 08/26/2024 1:28 PM EDT - Obstructive defecation: 1. Stay hydrated by drinking at least 8 glasses of water per day. This will help to keep your bowel habits more regular. 2. Continue taking your bowel regimen as prescribed follow up with Dr. 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 3. Pelvic floor physical therapy. The goal of this therapy is to retrain the pelvic floor muscles to more appropriately relax and therefore improve evacuation of stool. Physical therapy is the most effective way to get the pelvic floor muscles moving and coordinating correctly. Pelvic floor PT was ordered today, reviewed scheduling process with patient and how to find local therapists. 4. There are no surgical options to improve pelvic muscle coordination. 5. Obstructive defecation/pelvic floor dysfunction handout reviewed and provided to patient. 6. Patient was instructed to follow up virtual visit in 3 months after completion of physical therapy if symptoms are not improving. 7. Follow up with your referring physician. A copy of your test results will be sent to this physician. documented in this encounter [facility] 08-26-2024 Note HNO ID: [id number] Author: KRISTAL HARE APRN.NAVEEN Service: ? Author Type: Nurse Practitioner Type: Progress Notes Filed: 08/26/2024 13:55 Note Text: PELVIC FLOOR COLON AND RECTAL SURGERY Reason for visit: Review anorectal manometry and EMG results History of Present Illness: Fahad Sotelo is a 73 year old MALE who was seen at the request of Dr. Solorio for anorectal manometry testing, rectal sensation testing and EMG recruitment. Mr. Sotelo was referred for testing due to symptoms of abdominal pain, constipation/diarrhea. Duration of symptoms: 4 months patient reports approximately 4 months ago reporting to the emergency department due to severe constipation. He was given enemas at the time and followed up with GI. Since then he has been taking contulose and IBSrela. He reports having only loose stools with fair control although at times he is not able to leave his home due to frequency of bowel movements. At this point he states having typically 1-2 bowel movements a day but at times will go 2 days without. He reports abdominal pain and bloating has improved since his bowel regimen. He denies anorectal pain. He feels that his stools have not been formed since starting this medication. Prior to this he reports intermittent constipation with occasional straining. He endorses long-term bladder difficulty with limited bladder capacity/OAB. He is able to void throughout the day but does perform self catheterizations 3 times a day to ensure his bladder is fully emptied. Patient is up-to-date on colorectal cancer screening. Denies previous anorectal procedures. He does endorse having some spinal injuries and surgeries making his mobility limited. He fell in the grocery store 2 weeks ago and broke his right clavicle. He states a plate was placed at that time and is scheduled follow-up with his orthopedic provider later this week. Previous Testing Results include: Colonoscopy: Yes Date:Oct 2021 - random biopsies: No - polyps: Yes- TA- repeat in 5 years. Manometry: today Defecography: No PAST MEDICAL HISTORY Diagnosis Date CAD (coronary artery disease) 2004 MT in 1997. Had a stent placed in 2008 c/b coronary artery dissection and that lead to a CABG x1 in 2008 Former smoker quit 1997 Hyperlipidemia Hypertension Intermittent self-catheterization of bladder Urge incontinence of urine PAST SURGICAL HISTORY Procedure Laterality Date ARTHRP KNE CONDYLEANDPLATU MEDIALANDLAT COMPARTMENTS 10/30/2018 right CABG (1) VEIN GRAFT AND ARTERIAL GRAFT 2008 coronary dissection during stent placement CHEMODNRVTJ [facility] INNERVATED FACIAL NRV UNIL CYSTO.PANENDO 11/24/2021 Dr. Dye CYSTO.PANENDO 05/31/2022 CYSTO.PANENDO N/A 06/04/2023 CYSTOSCOPY 03/29/2017 Dr. Fady Dye - [facility] LEFT HEART CATH,PERCUTANEOUS 05/11/2003 [...] 03/29/2017 Procedure done by Nava Back LPN, [facility] Current Outpatient Medications Medication Sig Dispense Refill trospium (SANCTURA) 20 mg tablet Take 1 tablet by mouth two times a day. 30 tablet 4 plecanatide (TRULANCE) 3 mg tablet Take 1 tablet by mouth once daily. nitroglycerin sublingual (NITROQUICK) 0.4 mg SL tablet Amoxicillin 500 mg tablet TAKE 4 TABLETS [...] No current facility-administered medications for this visit. ALLERGIES Allergen Reactions Bee Pollen Swelling Bee Sting Swelling Hay Fever [Seasonal* Other: See Comments Sneezing. Oxybutynin Other: See Comments Other Reaction(s): Con (more content not included)... [facility] 08-26-2024 History of Present illness Narrative PELVIC FLOOR COLON & RECTAL SURGERY Reason for visit: Review anorectal manometry and EMG results History of Present Illness: Fahad Sotelo is a 73 year old MALE who was seen at the request of Dr. Solorio for anorectal manometry testing, rectal sensation testing and EMG recruitment. Mr. Sotelo was referred for testing due to symptoms of abdominal pain, constipation/diarrhea. Duration of symptoms: 4 months patient reports approximately 4 months ago reporting to the emergency department due to severe constipation. He was given enemas at the time and followed up with GI. Since then he has been taking contulose and IBSrela. He reports having only loose stools with fair control although at times he is not able to leave his home due to frequency of bowel movements. At this point he states having typically 1-2 bowel movements a day but at times will go 2 days without. He reports abdominal pain and bloating has improved since his bowel regimen. He denies anorectal pain. He feels that his stools have not been formed since starting this medication. Prior to this he reports intermittent constipation with occasional straining. He endorses long-term bladder difficulty with limited bladder capacity/OAB. He is able to void throughout the day but does perform self catheterizations 3 times a day to ensure his bladder is fully emptied. Patient is up-to-date on colorectal cancer screening. Denies previous anorectal procedures. He does endorse having some spinal injuries and surgeries making his mobility limited. He fell in the grocery store 2 weeks ago and broke his right clavicle. He states a plate was placed at that time and is scheduled follow-up with his orthopedic provider later this week. Previous Testing Results include: Colonoscopy: Yes Date:Oct 2021 - random biopsies: No - polyps: Yes- TA- repeat in 5 years. Manometry: today Defecography: No PAST MEDICAL HISTORY Diagnosis Date CAD (coronary artery disease) 2005 [place] in 1997. Had a stent placed in 2008 c/b coronary artery dissection and that lead to a CABG x1 in 2008 Former smoker quit 1997 Hyperlipidemia Hypertension Intermittent self-catheterization of bladder Urge incontinence of urine PAST SURGICAL HISTORY Procedure Laterality Date ARTHRP KNE CONDYLE&PLATU MEDIAL&LAT COMPARTMENTS 10/30/2018 right CABG (1) VEIN GRAFT & ARTERIAL GRAFT 2008 coronary dissection during stent placement CHEMODNRVTJ [facility] INNERVATED FACIAL NRV UNIL CYSTO.PANENDO 11/24/2021 Dr. Dye CYSTO.PANENDO 05/31/2022 CYSTO.PANENDO N/A 06/04/2023 CYSTOSCOPY 03/29/2017 Dr. Fady Dye - [facility] [facility] CATH,PERCUTANEOUS 05/11/2003 [...] 03/29/2017 Procedure done by Nava Back LPN, [facility] Current Outpatient Medications Medication Sig Dispense Refill trospium (SANCTURA) 20 mg tablet Take 1 tablet by mouth two times a day. 30 tablet 4 plecanatide (TRULANCE) 3 mg tablet Take 1 tablet by mouth once daily. nitroglycerin sublingual (NITROQUICK) 0.4 mg SL tablet Amoxicillin 500 mg tablet TAKE 4 TABLETS [...] No current facility-administered medications for this visit. ALLERGIES Allergen Reactions Bee Pollen Swelling Bee Sting Swelling Hay Fever [Seasonal* Other: See Comments Sneezing. Oxybutynin Other: See Comments Other Reaction(s): Constipation Venom-Honey Bee Other: See Comments, Swelling Other Reaction(s): Unknown Trospium Other: See Comments Other Reaction(s): Xerostomia FAMILY HISTORY Problem Relation Age of Onset Coronary Artery Disease Mother Stroke Mother 65 Diabetes Sister Diabetes Brother Anesthesia Problems No Family History Social History Tobacco Use Smoking status: Former Current packs/day: 0.00 Average packs/day: 1.3 packs/day for 10.0 years (12.5 ttl pk-yrs) Types: Cigarettes Start date: 11/14/1987 Quit date: 11/13/1997 Years since quittin.8 Smokeless tobacco: Never Vaping Use Vaping status: Never Used Substance Use Topics Alcohol use: Yes Comment: 2 cans of beer per year. Drug use: No Comment: denies tx for drug/alcohol abuse in the past. SENSITIVE EXAMINATION CONSENT: The sensitive examination was discussed with the Patient or Patient's Authorized Olive Picker. As applicable, any other physician, advance practice provider, medical student, or other health professional student that will be observing or involved in the sensitive examination for educational or training purposes was discussed with the Patient or Authorized Olive Picker. The Patient or Authorized Olive Picker has agreed to proceed with the sensitive examination. Physical Exam: There were no vitals filed for this visit. General Appearance: Well appearing, alert, in no acute distress, well-hydrated, well nourished. Anorectal: Perianal skin is intact. No erythema, induration or excoriation. No fissure, fistula or external hemorrhoids. Digital Rectal Exam: Anus: closed Resting tone: HIGH Squeeze tone: WEAK Valsalva: pelvic floor relaxation is Abnormal. Paradoxic contraction with Valsalva Puborectalis: non-tender in Left anterior, Right anterior, Left posterior, and Right posterior to palpation on valsalva Full thickness rectal prolapse: No Assessment Anorectal Physiology tests reviewed at today's visit: Reason for testing: constipation and abdominal pain/bloating [...] secondary to pelvic floor non-relaxation / dyssynergia. Assessment and Plan: Fahad Sotelo is a 73 year old MALE who was referred for anorectal physiology testing due to symptoms of abdominal pain and bloating in the setting of acute constipation. The testing that was performed today includes anorectal manometry, rectal sensory testing, balloon expulsion and EMG recruitment. These test results were reviewed with Fahad Sotelo and are listed above. Overall, these tests show abnormal anal sphincter strength, normal rectal sensation, and abnormal pelvic floor movement. After review of the patient's history, physical exam findings, anorectal manometry and EMG results, the patient may have obstructive defecation due to non-relaxation of the puborectalis/pelvic floor dyssynergia which could contribute to their symptoms. Recommendations for this include: - Obstructive defecation: 1. Stay hydrated by drinking at least 8 glasses of water per day. This will help to keep your bowel habits more regular. 2. Continue taking your bowel regimen as prescribed follow up with Dr. Solorio regarding plan for medications skilled nursing. 3. Pelvic floor physical therapy. The goal of this therapy is to retrain the pelvic floor muscles to more appropriately relax and therefore improve evacuation of stool. Physical therapy is the most effective way to get the pelvic floor muscles moving and coordinating correctly. Pelvic floor PT was ordered today, reviewed scheduling process with patient and how to find local therapists. 4. There are no surgical options to improve pelvic muscle coordination. 5. Obstructive defecation/pelvic floor dysfunction handout reviewed and provided to patient. 6. Patient was instructed to follow up virtual visit in 3 months after completion of physical therapy if symptoms are not improving. 7. Follow up with your referring physician. A copy of your test results will be sent to this physician. Kristal Hare APRN.SAMPLE BOX MAKER Pelvic Floor Colorectal Surgery I spent a total of 60 minutes on the date of the service which included preparing to see the patient, sxhi-ct-nzei patient care, completing clinical documentation, obtaining and/or reviewing separately obtained history, performing a medically appropriate examination, counseling and educating the patient/family/caregiver, ordering medications, tests, or procedures, and communicating results to the patient/family/caregiver. documented in this encounter [facility] 05-21-2024 Note [facility] Card[facility] Note Chief Complaint: Patient here [...] distal left anterior descending coronary artery. 3. Eeab-gi-clmhvlfa diffuse in-stent restenosis of right coronary artery [...] 4. Follow up with me in the [facility] in 1 month. 5. Follow up with Dr. Centeno as scheduled. Stress test 06/28/2023: Normal nuclear medicine myocardial perfusion scan Assessment: Coronar (more content not included)... [facility] 04-16-2024 History of Present illness Narrative Images from the original note were not included. Subjective Patient ID: Fahad Sotelo is a 73 y.o. male who presents for a F/U for constipation. Fahad presents today for a F/U for constipation.He states he is having loose stool, but still feels full. He was seen in the ER in March. He would like a referral to Gastro. Current Outpatient Medications on File Prior to [...] time each day at the same time. linaCLOtide (Linzess) 290 MCG capsule Take 1 capsule (290 mcg) by mouth in the morning for 16 days. Take before meals. Do not crush or chew.. 16 capsule 0 lisinopril 20 MG tablet 1 (one) time [...] History: Diagnosis Date CAD (coronary artery disease) ([facility]) Closed torus fracture of upper end of left fibula 08/21/2022 Complete rotator cuff tear or rupture of right shoulder, not specified as traumatic 05/04/2021 HLD (hyperlipidemia) ([facility]) HTN (hypertension) ([facility]) Myocardial infarct ([facility]) Rotator cuff tear left Past Surgical History: Procedure Laterality Date CORONARY ARTERY BYPASS GRAFT SHOULDER ARTHROSCOPY 2013 rotator cuff TRANSURETHRAL RESECTION OF PROSTATE Visit Vitals Smoking Status Never Review of Systems Constitutional: Negative. HENT: Negative. Eyes: Negative. Respiratory: Negative. Cardiovascular: Negative. Gastrointestinal: Positive for abdominal pain, constipation and diarrhea. Genitourinary: Negative. Musculoskeletal: Negative. Skin: Negative. Neurological: Negative. Psychiatric/Behavioral: Negative. Hematological: Negative. Endocrine: Negative. Allergic/Immunologic: Negative. Objective Physical Exam Constitutional: Appearance: Normal appearance. HENT: Head: Normocephalic and atraumatic. Right Ear: External ear normal. Left Ear: External ear normal. Nose: Nose normal. Mouth/Throat: Mouth: Mucous membranes are dry. Pharynx: Oropharynx is clear. Eyes: Extraocular Movements: Extraocular movements intact. Pupils: Pupils are equal, round, and reactive to light. Cardiovascular: Rate and Rhythm: Normal rate and regular rhythm. Pulses: Normal pulses. Heart sounds: Normal heart sounds. Pulmonary: Effort: Pulmonary effort is normal. Breath sounds: Normal breath sounds. Abdominal: General: Bowel sounds are normal. There is distension. Palpations: Abdomen is soft. Musculoskeletal: General: Normal range of motion. Cervical back: Normal range of motion. Skin: General: Skin is warm and dry. Neurological: Mental Status: He is alert. Psychiatric: Mood and Affect: Mood normal. Assessment/Plan Diagnoses and all orders for this visit: Constipation, unspecified constipation type - lactulose (Chronulac) 10 GM/15ML solution; Take 15 mL (10 g) by mouth in the morning and 15 mL (10 g) before bedtime. The patient will continue linzess as ordered as well as miralax as directed. He will start Lactulose twice a day. Patient instructed to reduce frequency down to once a day when bowel movements become more regular. Continue colace daily, Follow up with GI in June at new patient appt. 2. Chronic obstructive pulmonary disease, unspecified (CMS/HCC) Stable. No follow-ups on file. documented in this encounter [facility] 04-16-2024 Instructions Sukumar Mack NP - 04/16/2024 2:30 PM EST Lactulose order sent to the pharmacy today. documented in this encounter [facility] 04-11-2024 Note HNO ID: [id number] Author: CHRIS CLEMENTS MD Service: ? Author [...] surgical repair and will return for discussion [facility] 04-11-2024 History of Present illness Narrative Established patient returns with intermittent right groin [...] surgical repair and will return for discussion documented in this encounter [facility] 04-03-2024 History of Present illness Narrative Images from the original note were not included. Subjective Patient ID: Fahad Sotelo is a 73 y.o. male who presents for [facility] ER follow up. Flowsheet Row Patient Outreach from 04/02/2024 in [facility] with Emelyn Hall RN Hospital Information ED, Hospital or Fci Facility Discharge? ED Patient has been contacted within 1 week of being seen in the ED Yes Diagnosis constipation with no evidence of obstruction Discharge Date 03/31/24 Discharged To: Home Setting Discharge Hospital [facility] Admission Date 03/31/24 Medications Discharge medications reviewed and reconciled from hospital? Yes Is the patient having any side effects they believe may be caused by any medication additions or changes? No Does the patient have all medications ordered at discharge? Yes Nursing Interventions Nurse provided patient education Prescription Comments RX: zofran, golytely Is the patient taking all medications as [...] History: Diagnosis Date CAD (coronary artery disease) ([facility]) Closed torus fracture of upper end of left fibula 08/21/2022 Complete rotator cuff tear or rupture of right shoulder, not specified as traumatic 05/04/2021 HLD (hyperlipidemia) ([facility]) HTN (hypertension) ([facility]) Myocardial infarct ([facility]) Rotator cuff tear left Past Surgical History: [...] sooner if needed. documented in this encounter [facility] 03-17-2024 Telephone encounter Note Orders faxed to [facility] [phone] [facility] 03-17-2024 Miscellaneous Notes Orders faxed to [facility] [employer] [phone] documented in this encounter [facility] 03-07-2024 History of Present illness Narrative Images [...] History: Diagnosis Date CAD (coronary artery disease) ([facility]) Closed torus fracture of upper end of left fibula 08/21/2022 Complete rotator cuff tear or rupture of right shoulder, not specified as traumatic 05/04/2021 HLD (hyperlipidemia) ([facility]) HTN (hypertension) ([facility]) Myocardial infarct ([facility]) Rotator cuff tear left Past Surgical History: [...] equation in the estimation of LDL-C. Talha HERNANDEZ et al. MANPREET. 2013;310(19): 1457-8308 (http://education.Vahna/faq/FDR577) CHOL/HDLC RATIO 02/15/2024 3.0 <5.0 (calc) Final [...] for Routine F/U. documented in this encounter [facility] 02-28-2024 Telephone encounter Note Form faxed to: [phone]. Transmitted OK - Confirmation Received. We will hold onto the paperwork in our hold for two (2) week bin. Afterwards, it will be sent to [facility] for scanning into the pt's chart. [facility] 02-28-2024 Miscellaneous Notes Form faxed to: [phone]. Transmitted OK - Confirmation Received. We will hold onto the paperwork in our hold for two (2) week bin. Afterwards, it will be sent to [facility] for scanning into the pt's chart. We received a fax from [employer] [facility]. I have the form, from [place], in Dr. Dye's work bin. We will need Dr. Dye's signature and date signed on the form. When I spoke with the Pt he said he will be getting his cath supplies from [facility]. [employer] is there sister store owned by [employer] [facility]. documented in this encounter [facility] 02-26-2024 Note HNO ID: [id number] Author: CHRIS CLEMENTS MD Service: ? Author Type: Physician Type: Progress Notes Filed: 02/26/2024 15:16 Note Text: Patient is referred by Stanton Velasco II, MD with recent right groin pain. A copy of dictation with recommendations to above by [facility] electronic medical record US mail. No prior [...] have discomfort and no hernia diagnosed clinically [facility] 02-25-2024 Telephone encounter Note We received a fax from [employer] [facility]. I have the form, from [place], in Dr. Dye's work bin. We will need Dr. Dye's signature and date signed on the form. When I spoke with the Pt he said he will be getting his cath supplies from [facility]. [employer] is there sister store owned by [facility]. [facility] 02-22-2024 Telephone encounter Note Faxed orders for catheter supplies to [phone] [facility] 02-22-2024 Miscellaneous Notes Faxed orders for catheter supplies to [phone] documented in this encounter [facility] 02-18-2024 Telephone encounter Note VV note addendum made from today, catheters ordered and faxed electronically to [employer]. Aislinn Montalvo RN BSN [facility] 02-18-2024 Miscellaneous Notes VV note addendum made from today, catheters ordered and faxed electronically to [employer]. Aislinn Montalvo RN BSN Pt needs a new script for medical supplies, doesn't have a company in mind because he recently got new insurance 16fr coude/pre lubricated 5xs a day documented in this encounter [facility] 02-18-2024 Note Addended by: AISLINN RAHMAN on: 02/18/2024 02:28 PM Modules accepted: Orders [facility] 02-18-2024 Miscellaneous Notes Addended by: AISLINN MONTALVO on: 02/18/2024 02:28 PM Modules accepted: Orders documented in this encounter [facility] 02-18-2024 Telephone encounter Note Pt needs a new script for medical supplies, doesn't have a company in mind because he recently got new insurance 16fr coude/pre lubricated 5xs a day [facility] 02-18-2024 Note HNO ID: [id number] Author: NORI BE RN Service: ? Author Type: Physician Type: Progress Notes Filed: 03/06/2024 14:11 Note Text: [facility] Virtual Visit Patient Visit: This Team Access Model visit is a virtual encounter. It required patient-provider interaction for the medical decision making as documented below. I have communicated my name and active licensure. The patient's identity and physical location were verified at the time of this visit. Either the patient or their legal sales support representative has been informed of the risks [...] Diagnosis Date CAD (coronary artery disease) 2004 MT in 1997. Had a stent placed in 2008 c/b coronary artery dissection and that lead to a CABG x1 in 2008 Former smoker quit 1997 Hyperlipidemia Hypertension Intermittent self-catheterization of bladder Urge incontinence of urine PAST SURGICAL HISTORY Procedure Laterality Date ARTHRP KNE CONDYLEANDPLATU MEDIALANDLAT COMPARTMENTS 10/30/2018 right CABG (1) VEIN GRAFT AND ARTERIAL GRAFT 2008 coronary dissection during stent placement [facility] INNERVATED FACIAL NRV UNIL CYSTO.PANENDO 11/24/2021 Dr. Dye CYSTO.PANENDO 05/31/2022 CYSTO.PANENDO N/A 06/04/2023 CYSTOSCOPY 03/29/2017 Dr. Fady Dye - [facility] LEFT HEART CATH,PERCUTANEOUS 05/11/2003 [...] 03/29/2017 Procedure done by Nava Back LPN, [facility] Current Outpatient Medications on File Prior [...] eval - PERIPHERAL NERVE EVALUATION (PNE) HOPS main 3. Incomplete bladder emptying - ICD9: 788.21, [...] with more than 50% of the total sxxf-dp-ohky time of the visit in counseling / coordination of care. Fady Dye MD [facility] [place] [facility] [place] fax: [facility] 02-18-2024 History of Present illness Narrative [facility] Virtual Visit Patient Visit: This Team Access Model visit is a virtual encounter. It required patient-provider interaction for the medical decision making as documented below. I have communicated my name and active licensure. The patient's identity and physical location were verified at the time of this visit. Either the patient or their legal sales support representative has been informed of the risks [...] Diagnosis Date CAD (coronary artery disease) 2005 MT in 1997. Had a stent placed in 2008 c/b coronary artery dissection and that lead to a CABG x1 in 2008 Former smoker quit 1997 Hyperlipidemia Hypertension Intermittent self-catheterization of bladder Urge incontinence of urine PAST SURGICAL HISTORY Procedure Laterality Date ARTHRP KNE CONDYLE&PLATU MEDIAL&LAT COMPARTMENTS 10/30/2018 right CABG (1) VEIN GRAFT & ARTERIAL GRAFT 2009 coronary dissection during stent placement [facility] INNERVATED FACIAL NRV UNIL CYSTO.PANENDO 11/24/2021 Dr. Dye CYSTO.PANENDO 05/31/2022 CYSTO.PANENDO N/A 06/04/2023 CYSTOSCOPY 03/29/2017 Dr. Fady CROUCH REJ [facility] LEFT HEART CATH,PERCUTANEOUS 05/11/2003 [...] 03/29/2017 Procedure done by Nava Back LPN, [facility] Current Outpatient Medications on File Prior [...] eval - PERIPHERAL NERVE EVALUATION (PNE) HOPS main 3. Incomplete bladder emptying - ICD9: 788.21, ICD10: R33.9 above - PERIPHERAL NERVE EVALUATION (PNE) -CATHETER ORDER FOR HOME ISC 5x/day with 16 fr coude Fady Dye MD I spent 15 minutes in the visit, with more than 50% of the total ojgz-ye-yylo time of the visit in counseling / coordination of care. Fady Dye MD [facility] [place] [facility]uf[facility] Lillie fax: documented in this encounter [facility] 02-18-2024 Telephone encounter Note Patient is calling into the office. He is requesting caths. He states that he needs 16F. Please assist, thank you [facility] 02-18-2024 Miscellaneous Notes Patient is calling into the office. He is requesting caths. He states that he needs 16F. Please assist, thank you documented in this encounter [facility] 02-15-2024 History of Present illness Narrative Images [...] Do you have a medical power of retail key holder?: Yes Who is your medical power of retail key holder?: sister Objective : BP 128/74 Pulse 64 [...] facility ACP (advance care planning) Atherosclerosis of [place] coronary artery of [place] heart without angina pectoris (CMS/HCC) - CBC [...] February 15, 2024 documented in this encounter [facility] 01-17-2024 Note HNO ID: [id number] Author: FADY DYE MD Service: ? Author [...] Diagnosis Date CAD (coronary artery disease) 2005 MT in 1997. Had a stent placed in 2008 c/b coronary artery dissection and that lead to a CABG x1 in 2008 Former smoker quit 1997 Hyperlipidemia Hypertension Intermittent self-catheterization of bladder Urge incontinence of urine PAST SURGICAL HISTORY Procedure Laterality Date ARTHRP KNE CONDYLEANDPLATU MEDIALANDLAT COMPARTMENTS 10/30/2018 right CABG (1) VEIN GRAFT AND ARTERIAL GRAFT 2008 coronary dissection during stent placement [facility] INNERVATED FACIAL NRV UNIL CYSTO.PANENDO 11/24/2021 Dr. Dye CYSTO.PANENDO 05/31/2022 CYSTO.PANENDO N/A 06/04/2023 CYSTOSCOPY 03/29/2017 Dr. Fady Dye - [facility] LEFT HEART CATH,PERCUTANEOUS 05/11/2003 [...] 03/29/2017 Procedure done by Nava Back LPN, [facility] Social History Tobacco Use Smoking status: [...] improved his cap (more content not included)... [facility] 01-17-2024 History of Present illness Narrative [...] Diagnosis Date CAD (coronary artery disease) 2005 MT in 1997. Had a stent placed in 2008 c/b coronary artery dissection and that lead to a CABG x1 in 2008 Former smoker quit 1997 Hyperlipidemia Hypertension Intermittent self-catheterization of bladder Urge incontinence of urine PAST SURGICAL HISTORY Procedure Laterality Date ARTHRP KNE CONDYLE&PLATU MEDIAL&LAT COMPARTMENTS 10/30/2018 right CABG (1) VEIN GRAFT & ARTERIAL GRAFT 2008 coronary dissection during stent placement [facility] INNERVATED FACIAL NRV UNIL CYSTO.PANENDO 11/24/2021 Dr. Dye CYSTO.PANENDO 05/31/2022 CYSTO.PANENDO N/A 06/04/2023 CYSTOSCOPY 03/29/2017 Dr. Fady Dye - [facility] LEFT HEART CATH,PERCUTANEOUS 05/11/2003 [...] 03/29/2017 Procedure done by Nava Back LPN, [facility] Social History Tobacco Use Smoking status: [...] which included preparing to see the patient, vbxv-mt-gxcr patient care, completing clinical documentation, obtaining and/or reviewing separately obtained history, counseling and educating the patient/family/caregiver, and ordering medications, tests, or procedures. Fady Dye MD documented in this encounter [facility] 12-14-2023 Telephone encounter Note Fahad Sotelo [id number] Called patient re: recent urine culture with Dr. Salomon. No answer. Left VM with call back number. Sent Rx for bactrim to local pharmacy. Daija Lares PA-C 12/14/2023 3:[address] [facility] 12-14-2023 Miscellaneous Notes Fahad Sotelo [phone] Called patient re: recent urine culture with Dr. Salomon. No answer. Left VM with call back number. Sent Rx for bactrim to local pharmacy. Daija Lares PA-C 12/14/2023 3:31 PM documented in this encounter [facility] 12-13-2023 Nurse Note Faxed clinical notes that say patient needs pre-lubed coude caths because of bph and stricture, urinary retention three time a day, to [facility] fax # , [facility] 12-13-2023 Nurse Note Faxed clinical notes that say patient needs pre-lubed coude caths because of bph and stricture, urinary retention three time a day, to [facility] fax # , documented in this encounter [facility] 12-12-2023 Instructions Louie Salomon MD - 12/12/2023 1:49 PM EDT Today we discuss neuromodulation for overactive bladder with something like an interstim device. I can set you up to talk to Dr Dye to discuss this. That would not fix your stricture but if it improved your bladder function we could fix the stricture separately. documented in this encounter [facility] 12-12-2023 Note HNO ID: [id number] Author: LOUIE SALOMON MD Service: ? Author [...] Diagnosis Date CAD (coronary artery disease) 2005 MT in 1997. Had a stent placed in 2008 c/b coronary artery dissection and that lead to a CABG x1 in 2008 Former smoker quit 1997 Hyperlipidemia Hypertension Intermittent self-catheterization of bladder Urge incontinence of urine PAST SURGICAL HISTORY Procedure Laterality Date ARTHRP KNE CONDYLEANDPLATU MEDIALANDLAT COMPARTMENTS 10/30/2018 right CABG (1) VEIN GRAFT AND ARTERIAL GRAFT 2008 coronary dissection during stent placement [facility] INNERVATED FACIAL NRV UNIL CYSTO.PANENDO 11/24/2021 Dr. Dye CYSTO.PANENDO 05/31/2022 CYSTO.PANENDO N/A 06/04/2023 CYSTOSCOPY 03/29/2017 Dr. Fady Dye - [facility]ILL[facility] LEFT HEART CATH,PERCUTANEOUS 05/11/2003 [...] 03/29/2017 Procedure done by Nava Back LPN, [place] [facility] Social History Tobacco Use Smoking status: [...] things were worse (more content not included)... [facility] 12-12-2023 History of Present illness Narrative [...] Diagnosis Date CAD (coronary artery disease) 2005 MT in 1997. Had a stent placed in 2008 c/b coronary artery dissection and that lead to a CABG x1 in 2008 Former smoker quit 1997 Hyperlipidemia Hypertension Intermittent self-catheterization of bladder Urge incontinence of urine PAST SURGICAL HISTORY Procedure Laterality Date ARTHRP KNE CONDYLE&PLATU MEDIAL&LAT COMPARTMENTS 10/30/2018 right CABG (1) VEIN GRAFT & ARTERIAL GRAFT 2008 coronary dissection during stent placement [facility] INNERVATED FACIAL NRV UNIL CYSTO.PANENDO 11/24/2021 Dr. Dye CYSTO.PANENDO 05/31/2022 CYSTO.PANENDO N/A 06/04/2023 CYSTOSCOPY 03/29/2017 Dr. Fady Dye - LILLIE REJ [facility] LEFT HEART CATH,PERCUTANEOUS 05/11/2003 [...] 03/29/2017 Procedure done by Nava Back LPN, LILLIE LEE [facility] Social History Tobacco Use Smoking status: [...] times a day documented in this encounter [facility] 12-12-2023 Nurse Note Post Void Residual done on patient with 110 cc residual volume remaining. notified. Fela Teran LPN [facility] 12-12-2023 Nurse Note Post Void Residual done on patient with 110 cc residual volume remaining. notified. Fela Teran LPN documented in this encounter [facility] 11-13-2023 Telephone encounter Note Fahad Sotelo [id number] Returned call to patient. Got up 7 [...] call. Daija Lares PA-C 11/13/2023 10:[address] [facility] Work Phone: 11-13-2023 Miscellaneous Notes Fahad Sotelo [id number] Returned call to patient. Got up 7 [...] cathing as well. documented in this encounter [facility] 11-13-2023 Telephone encounter Note Pt states that he has had difficulty urinating the past couple days. He say he has to hold his breath and push out the urine. Also states he is having difficulty with cathing as well. [facility] 11-02-2023 History of Present illness Narrative Images [...] History: Diagnosis Date CAD (coronary artery disease) ([facility]) Closed torus fracture of upper end of left fibula 08/21/2022 Complete rotator cuff tear or rupture of right shoulder, not specified as traumatic 05/04/2021 HLD (hyperlipidemia) ([facility]) HTN (hypertension) ([facility]) Myocardial infarct ([facility]) Rotator cuff tear left Past Surgical History: Procedure Laterality Date CORONARY ARTERY BYPASS GRAFT SHOULDER ARTHROSCOPY 2012 rotator cuff TRANSURETHRAL RESECTION OF PROSTATE Visit [...] To be determined. documented in this encounter [facility] 09-11-2023 Telephone encounter Note Called to follow [...] will let me know if this helps [facility] 09-11-2023 Miscellaneous Notes Called to follow up [...] if this helps documented in this encounter [facility] 08-31-2023 Telephone encounter Note Called to follow [...] Will call with how he is feeling [facility] Work Phone: 08-31-2023 Miscellaneous Notes Called to [...] he is feeling documented in this encounter [facility] 08-31-2023 History of Present illness Narrative UDS interpretation 300mls capacity Lots of pabd activity Strong desire at 270, No obvious DO or rise in pdet with permission to void Normal compliance Cathed for [address] documented in this encounter [facility] 08-31-2023 Nurse Note [facility] UR[facility]ICS LAB URODYNAMIC [...] understanding of instructions given. Martha Kelly RN [facility] 08-31-2023 Nurse Note [facility] UR[facility] URODYNAMIC [...] Martha Kelly RN documented in this encounter [facility] 08-17-2023 Telephone encounter Note Fahad Sotelo [id number] Returned call to patient about dysuria. Still cathing 4x/day. Urine culture still in process but will send empiric antibiotic over until culture results. He expressed appreciation for the call. Daija Lares PA-C 08/17/2023 11:[address] [facility] 08-17-2023 Miscellaneous Notes Fahad Sotelo [id number] Returned call to patient about dysuria. Still cathing 4x/day. Urine culture still in process but will send empiric antibiotic over until culture results. He expressed appreciation for the call. Daija Lares PA-C 08/17/2023 11:11 AM documented in this encounter [facility] 08-15-2023 Telephone encounter Note Fahad Sotelo [id number] Returned call to patient. Complaining of urinary frequency and urgency. Last night voiding or needing to self cath every 90 minutes or so. Small volumes. Keeping close record of urination. Bowel function is at baseline. On home bowel regimen. Discussed that we should r/o UTI since he was recently instrumented. He is unsure how close a [facility] lab is from him. Possibly closest to [place]. He will go there to drop off a sample. Daija Lares PA-C 08/15/2023 11:[address] [facility] Work Phone: 08-15-2023 Miscellaneous Notes Fahad Sotelo [id number] Returned call to patient. Complaining of urinary frequency and urgency. Last night voiding or needing to self cath every 90 minutes or so. Small volumes. Keeping close record of urination. Bowel function is at baseline. On home bowel regimen. Discussed that we should r/o UTI since he was recently instrumented. He is unsure how close a [facility] lab is from him. Possibly closest to [place]. He will go there to drop off a sample. Daija Lares PA-C 08/15/2023 11:45 AM documented in this encounter [facility] 08-09-2023 Telephone encounter Note Fahad Sotelo had dilation on 08/02/2023 with plan to remove Duncan after 2-5 days and then resume ISC QID. Scheduled for UDS on 08/31/2023. Bladder is reportedly poorly compliant with small capacity. Called Fahad Sotelo. He reports that he removed Duncan on 08/04/2023. Yesterday, he started having hesitancy and getting larger volumes when he caths. [place] urge to cath 6-7 times yesterday. He [...] does not feel like symptoms are improving. Corry Gregory APRN.CNP [facility] Work Phone: 08-09-2023 Miscellaneous Notes Fahad Sotelo had dilation on 08/02/2023 with plan to remove Duncan after 2-5 days and then resume ISC QID. Scheduled for UDS on 08/31/2023. Bladder is reportedly poorly compliant with small capacity. Called Fahad Sotelo. He reports that he removed Duncan on 08/04/2023. Yesterday, he started having hesitancy and getting larger volumes when he caths. [place] urge to cath 6-7 times yesterday. He [...] does not feel like symptoms are improving. Corry Gregory APRN.CNP ----- Message from Maite Glass MA sent at 08/09/2023 8:45 AM EDT ----- Patient feels like he has to urinate all the time when he does go he has to hold his breath When he self caths a lot of urine comes out He is asking for a call Thanks Maite documented in this encounter [facility] 08-09-2023 Telephone encounter Note ----- Message from Maite Glass MA sent at 08/09/2023 8:45 AM EDT ----- Patient feels like he has to urinate all the time when he does go he has to hold his breath When he self caths a lot of urine comes out He is asking for a call Thanks Maite [facility] 08-02-2023 Note HNO ID: [id number] Author: ADDIE MOREIRA APRN.CRNA Service: Anesthesiology Author Type: Nurse Outreach Coordinator Type: Anesthesia Procedure Notes Filed: 08/02/2023 09:31 Note Text: ANESTHESIOLOGY PROCEDURE NOTE Airway General Information Procedure Start Time/Medication Administration: 08/02/2023 9:09 AM Procedure End Time: 08/02/2023 9:30 AM Patient location during procedure: OR Timeout Performed Pre-procedure: timeout performed Consent Obtained: Yes Patient identity confirmed: arm band Staffing Performed by: anesthesiologist and KNIT GOODS WASHER Indications and Patient Condition Indications for airway [...] no Airway not difficult SIGNATURE: Addie Moreira APRN.KNIT GOODS WASHER PATIENT NAME: Fahad Sotelo DATE: August 02, 2023 TIME: 9:30 AM CSN: [id number] [facility] 07-11-2023 Telephone encounter Note Called patient re: urine culture results He is not having symptoms Because we are planning a procedure I would rec treatment Abx sent to his pharmacy [facility] 07-11-2023 Miscellaneous Notes Called patient re: urine culture results He is not having symptoms Because we are planning a procedure I would rec treatment Abx sent to his pharmacy documented in this encounter [facility] 07-05-2023 History and physical note HISTORY AND [...] jayant-operative course: CAD (coronary artery disease) Assessment: MT in 1997. Had a stent placed in [...] have a large neck STOP-Bang Score: 3 [id number] Score: Age: 65-74 Sex: male CHF history: No Hypertension history: Yes Stroke/TIA/thromboembolism history: No Vascular disease history: Yes Diabetes history: No [id number] Score: 3 ARISCAT Score: Age: 51-80 Preoperative [...] adequate. Short neck: no. Thick neck: no Simth present: no Lip Bite Test: II Microretrognathia/Micronagthia/Re [...] Diagnosis Date CAD (coronary artery disease) 2005 MT in 1997. Had a stent placed in 2008 c/b coronary artery dissection and that lead to a CABG x1 in 2008 Former smoker quit 1997 Hyperlipidemia Hypertension Intermittent self-catheterization of bladder Urge incontinence of urine PAST SURGICAL HISTORY Procedure Laterality Date ARTHRP KNE CONDYLE&PLATU MEDIAL&LAT COMPARTMENTS 10/30/2018 right CABG (1) VEIN GRAFT & ARTERIAL GRAFT 2008 coronary dissection during stent placement [facility] INNERVATED FACIAL NRV UNIL CYSTO.PANENDO 11/24/2021 Dr. Dye CYSTO.PANENDO 05/31/2022 CYSTO.PANENDO N/A 06/04/2023 CYSTOSCOPY 03/29/2017 Dr. Fady Dye - LILLIE REJ [facility] LEFT HEART CATH,PERCUTANEOUS 05/11/2003 [...] 03/29/2017 Procedure done by Nava Back LPN, LILLIE REJ [facility] FAMILY HISTORY Problem Relation Age of [...] Prior to Admission medications as of 07/05/23 0949 Medication Sig Last Dose Taking plecanatide (TRULANCE) [...] fevers. Neuro: No history of TIA's, stroke, QC ANALYST tumor, impaired sensorium, hemiplegia, paraplegia or quadraplegia. [...] Laterality Modality -- -- [place] [address] Nuclear Medicine Report Signed Patient: Fahad Sotelo MR#: [id number] : 1950 Acct:[id number] Age/Sex: 72 / M ADM Date: 06/27/23 Loc: NM Attending Dr: Tamanna Joshua M.D. Ordering Physician: Tamanna Joshua M.D. Date of Service: 06/27/23 Procedure(s): NM rosenda perf SPECT rest str Accession Number(s): [id number] cc: STANTON VELASCO ; Tamanna Joshua M.D. Patient Name: FAHAD SOTELO MR#: [id number] : 1950 Exam Date: 06/27/2023 Ordering Doctor: [...] nuclear medicine myocardial perfusion scan. ECHO Order: [id number] Narrative PERFORMED AT [facility] LOCATION:[place] [address] Patient: AMANDA Shelby Exam Date: 06/07/2022 : 1950 Gender:M Ordering : DR TAMANNA JOSHUA M.D. Admission #: [id number] Family : DR STANTON VELASCO M.D. Order #: [id number] CLICK HERE TO VIEW EXAM ECHOCARDIOGRAM REPORT [...] Last Resulted: 06/07/22 12:00 AM Received From: [facility] No new labs or tests Instructions Given to Patient: Instructions located in the after visit summary. Patient given verbal and written preop instructions and voices comprehension and compliance. SIGNATURE: Rigo Cano APRN.CNP PATIENT NAME: Fahad Sotelo DATE: 07/05/2023 TIME: 1:[address] [facility] 07-05-2023 History and physical note HISTORY AND [...] jayant-operative course: CAD (coronary artery disease) Assessment: MT in 1997. Had a stent placed in [...] have a large neck STOP-Bang Score: 3 [id number] Score: Age: 65-74 Sex: male CHF history: No Hypertension history: Yes Stroke/TIA/thromboembolism history: No Vascular disease history: Yes Diabetes history: No [id number] Score: 3 ARISCAT Score: Age: 51-80 Preoperative [...] Diagnosis Date CAD (coronary artery disease) 2005 MT in 1997. Had a stent placed in 2008 c/b coronary artery dissection and that lead to a CABG x1 in 2008 Former smoker quit 1997 Hyperlipidemia Hypertension Intermittent self-catheterization of bladder Urge incontinence of urine PAST SURGICAL HISTORY Procedure Laterality Date ARTHRP KNE CONDYLE&PLATU MEDIAL&LAT COMPARTMENTS 10/30/2018 right CABG (1) VEIN GRAFT & ARTERIAL GRAFT 2008 coronary dissection during stent placement [facility] INNERVATED FACIAL NRV UNIL CYSTO.PANENDO 11/24/2021 Dr. Dye CYSTO.PANENDO 05/31/2022 CYSTO.PANENDO N/A 06/04/2023 CYSTOSCOPY 03/29/2017 Dr. Fady Dye - LILLIE REJ [facility] LEFT HEART CATH,PERCUTANEOUS 05/11/2003 [...] 03/29/2017 Procedure done by Nava Back LPN, LILLIE LEE [facility] FAMILY HISTORY Problem Relation Age of [...] fevers. Neuro: No history of TIA's, stroke, QC ANALYST tumor, impaired sensorium, hemiplegia, paraplegia or quadraplegia. [...] Region Laterality Modality -- -- [place] [address] Nuclear Medicine Report Signed Patient: Fahad Sotelo MR#: [id number] : 1950 Acct:[id number] Age/Sex: 72 / M ADM Date: 06/27/23 Loc: NM Attending Dr: Tamanna Joshua M.D. Ordering Physician: Tamanna Joshua M.D. Date of Service: 06/27/23 Procedure(s): NM rosenda perf SPECT rest str Accession Number(s): [id number] cc: STANTON VELASCO ; Tamanna Joshua M.D. Patient Name: FAHAD SOTELO MR#: [id number] : 1950 Exam Date: 06/27/2023 Ordering Doctor: [...] nuclear medicine myocardial perfusion scan. ECHO Order: [id number] Narrative PERFORMED AT [facility] LOCATION:[place] [address] Patient: AMANDA Shelby Exam Date: 06/07/2022 : 1950 Gender:M Ordering : DR TAMANNA JOSHUA M.D. Admission #: [id number] Family : DR STANTON VELASCO M.D. Order #: [id number] CLICK HERE TO VIEW EXAM ECHOCARDIOGRAM REPORT [...] Last Resulted: 06/07/22 12:00 AM Received From: [facility] No new labs or tests Instructions Given to Patient: Instructions located in the after visit summary. Patient given verbal and written preop instructions and voices comprehension and compliance. SIGNATURE: Rigo Cano APRN.CNP PATIENT NAME: Fahad Sotelo DATE: 07/05/2023 TIME: 1:35 PM documented in this encounter [facility] 07-05-2023 Instructions Rigo Cano APRN.CNP - 07/05/2023 10:06 AM EDT PATIENT PREOPERATIVE INSTRUCTIONS Louie Salomon MD has scheduled you for your procedure at this surgery center: [facility]: [phone] --[address] [place] [address]. Please read below carefully for your personalized [...] Procedures: - YOU MUST HAVE A RESPONSIBLE PURCHASING CLERK TAKE YOU HOME. A CHEST PAINTING LEADER OR VICE PRESIDENT OF FINANCE CANNOT BE MADE A RESPONSIBLE PURCHASING CLERK. - We recommend that a responsible person [...] Advance Directive, please fax a copy to [phone] or email to for it to be [...] into your chart that day. Rigo Cano APRN.NAVEEN documented in this encounter [facility] 06-20-2023 History of Present illness Narrative Images from the original note were not included. [facility] UROLOGY NEW PATIENT [...] Diagnosis Date CAD (coronary artery disease) 2004 MT in 1997. Had a stent placed in [...] 2009 coronary dissection during stent placement [facility] INNERVATED FACIAL NRV UNIL CYSTO.PANENDO 11/24/2021 Dr. Dye CYSTO.PANENDO 05/31/2022 CYSTO.PANENDO N/A 06/04/2023 CYSTOSCOPY 03/29/2017 Dr. Fady Dye - LILLIELINNEA LEE [facility] LEFT HEART CATH,PERCUTANEOUS 05/11/2003 [...] by Nava Back LPN, [place] RE[facility] FAMILY HISTORY FAMILY HISTORY Problem Relation [...] tract surveillance Louie Salomon MD Associate Staff [facility] [place] Department of Urology I spent a total of 30 minutes on the date of the service which included preparing to see the patient, [id number] patient care, completing clinical documentation, obtaining and/or reviewing separately obtained history, performing a medically appropriate examination, counseling and educating the patient/family/caregiver, and ordering medications, tests, or procedures. >50% of time was devoted to patient counseling. Post Void Residual done on patient with 0 cc residual volume remaining. notified. Leoncio Zavala MA documented in this encounter [facility] 06-20-2023 Note HNO ID: [id number] Author: DAIJA LARES PA-C Service: ? Author Type: Physician Type: Progress Notes Filed: 09/27/2023 11:19 Note Text: [facility] [place] UR[facility] NEW PATIENT CLINIC NOTE SERVICE DATE: [...] Diagnosis Date CAD (coronary artery disease) 2004 MT in 1997. Had a stent placed in [...] 06/04/2023 CYSTOSCOPY 03/29/2017 Dr. Fady Dye - LILLIE REJ [facility] LEFT HEART CATH,PERCUTANEOUS 05/11/2003 [...] by Nava Back LPN, [place] [facility] FAMILY HISTORY FAMILY HISTORY Problem Relation [...] facility-administered medications for (more content not included)... [facility] 06-20-2023 Note HNO ID: [id number] Author: LEONCIO ZAVALA MA Service: ? 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 MD notified. Leoncio Zavala MA [facility] 06-11-2023 Telephone encounter Note Images from the original note were not included. Radha Ramos MD You 2 days ago Thank you, patient would use what he is comfortable with. Thank you Radha Ramos MD Phoned pt to inform of response, he states he used to use curved most of the time , but has been using both strait and curved since cystoscopy without any problems [facility] 06-11-2023 Miscellaneous Notes Images from the original note were not included. Radha Ramos MD You 2 days ago Thank you, patient would use what he is comfortable with. Thank you Radha Ramos MD Phoned pt to inform of [...] was sent to his vendor of choice, [employer]. Letter to [employer] indicated 16 [place] strait tip. Pt prefers to use coude tip. Checking with provider if to use strait or coude ([employer] order written for strait tip) documented in this encounter [facility] 06-10-2023 Telephone encounter Note Please update the patient , keflex sent to pharmacy. Radha Ramos MD [facility] 06-10-2023 Miscellaneous Notes Please update the patient , keflex sent to pharmacy. Radha Ramos MD documented in this encounter [facility] 06-08-2023 Telephone encounter Note Pt arrived for nurse visit duncan catheter removal post 06/04/23 office cystoscopy for stricture dilation. He will resume ISC as instructed . Noted that letter was sent to his vendor of choice, [employer]. Letter to [employer] indicated 16 [place] strait tip. Pt prefers to use coude tip. Checking with provider if to use strait or coude ([employer] order written for strait tip) [facility] 06-08-2023 Note Addended by: KRIS VENEGAS on: 06/08/2023 03:38 PM Modules accepted: Orders [facility] 06-08-2023 Miscellaneous Notes Addended by: KRIS VENEGAS on: 06/08/2023 03:38 PM Modules accepted: Orders documented in this encounter [facility] 06-08-2023 Nurse Note Pt arrives, ambulatory for duncan catheter removal post 06/04/23 office cystoscopy for stricture dilation. Pt admits to increase in bladder spasms, discomfort in shaft of penis and urethra, burning discomfort in penis and bladder area. Intermittent urethral leakage, admits to intermittent small amount of bloody globs ; admits he struggles with regular bowel movements. 18 [place] STRAIT duncan catheter attached to leg bag, [...] update on strait or coude for ISC. [facility] 06-08-2023 Nurse Note Pt arrives, ambulatory for duncan catheter removal post 06/04/23 office cystoscopy for stricture dilation. Pt admits to increase in bladder spasms, discomfort in shaft of penis and urethra, burning discomfort in penis and bladder area. Intermittent urethral leakage, admits to intermittent small amount of bloody globs ; admits he struggles with regular bowel movements. 18 [place] STRAIT duncan catheter attached to leg bag, [...] coude for ISC. documented in this encounter [facility] 06-07-2023 Telephone encounter Note Spoke with patient Discussed bladder spasms/leakage NV tomorrow can assess need for straight cath UA. OK for patient to take Tylenol for discomfort. Will provide 16fr. ISC catheter sample for patient to use as he currently only has 14 fr. At home. Pt verbalizes understanding of plan and declines further questions/concerns at this time. [facility] 06-07-2023 Miscellaneous Notes Spoke with patient Discussed [...] convenience. Please advise. documented in this encounter [facility] 06-07-2023 Telephone encounter Note Pt called the office; stated that he has an appt in office tomorrow for catheter removal. Pt stated that he has leaking, a burning sensation, and is feeling the need to urinate. Pt is requesting a phone call at your earliest convenience. Please advise. [facility] 06-06-2023 Telephone encounter Note Returning phone call to patient. Updated patient that catheter order was sent to [facility]. Patient states he's been leaking around catheter. Explained to patient the reasons for this - constipation, bladder spasms, kink in tubing. Patient adjusted securing device d/t pulling. Admits to constipation - on bowel regimen. Scheduled for NV for duncan removal on 06/08/2023 at 3pm. Patient in agreement with plan. Shameka Carrillo RN [facility] 06-06-2023 Miscellaneous Notes Returning phone call to patient. Updated patient that catheter order was sent to [facility]. Patient states he's been leaking around catheter. Explained to patient the reasons for this - constipation, bladder spasms, kink in tubing. Patient adjusted securing device d/t pulling. Admits to constipation - on bowel regimen. Scheduled for NV for duncan removal on 06/08/2023 at 3pm. Patient in agreement with plan. Shameka Carrillo RN ISC catheter order sent to [facility]. Ordered for 3 months. 16F straight daily to keep stricture open. Will call to update patient. Shameka Carrillo RN Fahad is calling Radha Ramos MD today to request catheters to be sent to [facility]. Please advise. Phone number: [phone] Patient has been identified by name and birthdate. Duration of symptoms: N/A Person calling: self Call patient at: at home [phone] (home) Was an appointment scheduled: No Closing statement: Results or non-symptom based questions: Thank you for calling [facility], your call will be returned within the next business day. Thank you, Oneyda Blackmon documented in this encounter [facility] 06-06-2023 Telephone encounter Note ISC catheter order sent to [facility]. Ordered for 3 months. 16F straight daily to keep stricture open. Will call to update patient. Shameka Carrillo RN [facility] 06-06-2023 Telephone encounter Note Fahad is calling Radha Ramos MD today to request catheters to be sent to [facility]. Please advise. Phone number: [phone] Patient has been identified by name and birthdate. Duration of symptoms: N/A Person calling: self Call patient at: at home [phone] (home) Was an appointment scheduled: No Closing statement: Results or non-symptom based questions: Thank you for calling [facility], your call will be returned within the next business day. Thank you, Oneyda Blackmon [facility] 06-04-2023 Procedure note UNIVERSAL PROTOCOL / [...] Visit completed when applicable. DIAZ Dykes MD T [facility] 06-04-2023 Procedure note UNIVERSAL PROTOCOL / [...] urethra, unspecified stricture type Procedure: Cystoscopy Surgeon: Radha Ramos MD Procedure: Indications of the procedure, [...] revealing trabeculated urinary bladder. An 18 fr [place] tip catheter passed over the guide wire for 5 days. Findings: two tight areas of the urethra noted. Trabeculated urinary bladder. Discussed referring to Dr. Louie Salomon to discuss further management of the urethral stricture Patient will resume cathing with 16 Fr straight catheter once daily to keep the area of the stricture patent. Radha Ramos MD documented in this encounter [facility] 06-04-2023 Nurse Note PROCEDURE NURSE ASSESSMENT Patient ID with two(2)identifiers verified by: Kiesha Martínez MA Procedure Indication: Cystoscopy June 04, 2023, [...] and reviewed and patient verbalizes understanding: yes Kiesha Martínez MA [facility] 06-04-2023 Instructions Kiesha Martínez MA - 06/04/2023 11:33 AM EDT After [...] with drinking extra fluids. Please call the [facility] office at [phone] Sunday-Sunday 8 am - 5 pm with any questions you may have and ask for the Urology nurses. If you call after 5 PM or on the weekends, please call [phone] documented in this encounter [facility] 06-04-2023 Nurse Note PROCEDURE NURSE ASSESSMENT Patient ID with two(2)identifiers verified by: Kiesha Martínez MA Procedure Indication: Cystoscopy June 04, 2023, [...] and reviewed and patient verbalizes understanding: yes Kiesha Martínez MA documented in this encounter [facility] 06-04-2023 Procedure note Procedure(s): CYSTOSCOPY; URETHRAL DILATION, MALE Pre-Procedure Diagnose(s): Stricture of male urethra, unspecified stricture type Post-Procedure Diagnose(s): Stricture of male urethra, unspecified stricture type Procedure: Cystoscopy Surgeon: Radha Ramos MD Procedure: Indications of the procedure, [...] revealing trabeculated urinary bladder. An 18 fr [place] tip catheter passed over the guide wire for 5 days. Findings: two tight areas of the urethra noted. Trabeculated urinary bladder. Discussed referring to Dr. Louie Salomon to discuss further management of the urethral stricture Patient will resume cathing with 16 Fr straight catheter once daily to keep the area of the stricture patent. Radha Ramos MD [facility] 05-15-2023 Instructions Nithya Rhodes PA-C - 05/15/2023 3:54 PM EDT [facility] CYSTOSCOPY: The cystoscope is an instrument similar [...] twice a day. documented in this encounter [facility] 05-15-2023 History of Present illness Narrative [facility] FEM[facility] PELVIC [...] Diagnosis Date CAD (coronary artery disease) 2004 MT in 1997. 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 Dye CYSTO.PANENDO 05/31/2022 CYSTOSCOPY 03/29/2017 Dr. Fady Dye - [facility] LEFT HEART CATH,PERCUTANEOUS 05/11/2003 [...] 03/29/2017 Procedure done by Nava Back LPN, [facility] Past Social History: Social History Tobacco [...] performed by the staff urologist, Dr. Richard Rhodes PA-C Visit complexity inherent to evaluation and [...] Via bladder scan. documented in this encounter [facility] 06-23-2022 History of Present illness Narrative [...] Diagnosis Date CAD (coronary artery disease) 2005 MT in 1997. Had a stent placed in [...] Nehemiah Gilbert PA-C documented in this encounter [facility] 06-23-2022 History of Present illness Narrative Radiology [...] 2022 1:34 PM documented in this encounter [facility] 05-31-2022 Procedure note Procedure(s): CYSTOSCOPY; URETHRAL DILATION, MALE Pre-Procedure Diagnose(s): Urine retention; Anterior urethral stricture Post-Procedure Diagnose(s): Urine retention; Anterior urethral stricture Procedure: Cystoscopy, urethral dilation Surgeon: Radha Ramos MD Procedure: Indications of the procedure, [...] scope safely, did dilate the stricture with [place] dilators from size 14 to 24 Fr, [...] urethral strictures , noted, trabeculated urinary bladder Radha Ramos MD documented in this encounter [facility] 05-31-2022 Instructions Rigo Martin LPN - 05/31/2022 [...] with drinking extra fluids. Please call the [facility] office at [phone] Sunday-Sunday 8 am - 5 pm with any questions you may have and ask for the Urology nurses. If you call after 5 PM or on the weekends, please call [phone] documented in this encounter [facility] 05-31-2022 Nurse Note PROCEDURE NURSE ASSESSMENT Patient [...] Rigo Martin LPN documented in this encounter [facility] 04-25-2022 Instructions Nithya Rhodes PA-C - 04/25/2022 9:31 AM EDT [facility] CYSTOSCOPY: The cystoscope is an instrument similar [...] help with urgency documented in this encounter [facility] 04-25-2022 History of Present illness Narrative PVR = 0 ml Via bladder scan. Had patient demonstrate cathing to see difficulty Did see resistance proximal urethra Patient does have L hand dexterity issues making it a little more difficult Able to pass catheter, few drops of urine in return Offered patient to try other catheters, patient declined [facility] F[facility] PELVIC [...] Diagnosis Date CAD (coronary artery disease) 2005 MT in 1997. 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 Dye CYSTOSCOPY 03/29/2017 Dr. Fady Dye - [facility] LEFT HEART CATH,PERCUTANEOUS 05/11/2003 [...] 03/29/2017 Procedure done by Nava Back LPN, [facility] Past Social History: Social History Tobacco [...] for repeat PVR and med check. Nithya Rhodes PA-C documented in this encounter [facility] 11-15-2021 History of Present illness Narrative This document has been created with the use of voice recognition technology. It may contain inaccuracies: misspellings, inaccurate syntax or word sense that escaped review. CHIEF COMPLAINT: Fahad A McGirt is a 71 year old male who [...] Diagnosis Date CAD (coronary artery disease) 2004 MT in 1997. Had a stent placed in [...] Kev Ferrell MD documented in this encounter [facility] 11-08-2021 History of Present illness Narrative This [...] Kev Ferrell MD documented in this encounter [facility] 11-08-2021 History of Present illness Narrative f/u rt shoulder replacement documented in this encounter [facility] 11-07-2021 Miscellaneous Notes Sent message to [facility] to assist in rescheduling Chandrika patient, received message back that they could not accommodate, sent a message to [facility] to reschedule patient. documented in this encounter [facility] 10-31-2021 Miscellaneous Notes Pt needs nurse visit to troubleshoot CIC and if true issues needs cysto Ordered cysto so can get on schedule just in case as Dr. BOWER books up Routed to [employer] to please assist in scheduling 1 nurse [...] hitting his intestines. documented in this encounter [facility] 06-23-2021 Miscellaneous Notes We have received fax from [facility]. icd-10 code: R33.9 retention of urine, unspecified. QTY: 180 Proc code: A4351 Item: male 16fr 16 int urinary cath 2/day: 60/month:180day supply QTY:180 Proc code: A4332 Item:3g foil packs each 2/day 60/month 180/90 day supply I have placed this in Dr. Dye's bin for him to sign and date this. I have printed off office notes from his 04/29/2020 office visit and placed this with this order to be faxed along with this order once signed and dated. documented in this encounter [facility] 06-16-2021 History of Present illness Narrative POPULATION [...] Sent to Practice: No Navigation Signature: Taylor Copeland Pss June 16, 2021 12:51 PM documented in this encounter [facility] 06-14-2021 History of Present illness Narrative This [...] 2021 9:56 AM documented in this encounter [facility] 05-24-2021 Instructions Nehemiah Gilbert PA-C - 05/24/2021 [...] the incision anymore. documented in this encounter [facility] 05-24-2021 History of Present illness Narrative This [...] 20. He is being set up for [facility] PT and will have a nurse aide [...] LEATHA Kay PA-C documented in this encounter [facility] 05-24-2021 History of Present illness Narrative Radiology [...] IV DATA: Not applicable SIGNED BY: RT Grupo(Satinder) May 24, 2021 9:56 AM documented in this encounter [facility] 05-09-2021 Miscellaneous Notes Spoke to the therapist at the rehab facility and clarified orders. Nehemiah Gilbert PA-C Pt. Is in rehab. They are unsure of his rom limitions. At this time they believe it is only passive rom with external rotation past neutral. No active rom. And non weight bearing. Please review and advise them at number in contacts. documented in this encounter [facility] 05-04-2021 Note HNO ID: [id number] Author: Cheryl Trevino RN Service: Care Management [...] 04, 2021 TIME: 11:50 AM PAGER/CONTACT #: [phone] [facility] 05-04-2021 Note HNO ID: [id number] Author: Cheryl Trevino RN Service: Care Management Author Type: Registered Nurse Type: Care Mgt Progress Note Filed: 05/04/2021 11:39 AM Note Text: CARE MANAGEMENT DISCHARGE NOTE SERVICE DATE: 05/04/2021 SERVICE TIME: 11:38 AM LOS: 0 days Admission Date: 05/02/2021 DISCHARGE ARRANGEMENT (list agency and phone number) Discharge Arrangement: [facility] Was an expedited discharge program used?: [...] Name/Phone: Stanton Velasco II Other Caregiver Name/Phone: [facility] TRANSPORTATION ARRANGEMENTS: Transportation Arrangements: Ambulance/[place] Transportation Agency and Phone #:: [facility] [phone] Date of Trip: 03/23/22 Time of Trip: 1600 Type of Service: BLS Non-emergency Is Patient Medicaid Pending?: No Facilities Maintenance Manager Location: [place] Destination: [facility] Financial Care Management Responsibility: None Discharge Information Row Name Admission (Current) from 05/02/[address] [facility] Agency [facility] SIGNATURE: Cheryl Trevino RN PATIENT NAME: Fahad Sotelo DATE: May 04, 2021 TIME: 11:38 AM PAGER/CONTACT #: [phone] [facility] 05-03-2021 Note HNO ID: [id number] Author: Cheryl Trevino RN Service: Care Management Author Type: Registered Nurse Type: Care Mgt Progress Note Filed: 05/03/2021 4:16 PM Note Text: CARE MANAGEMENT PROGRESS NOTE SERVICE DATE: 05/03/2021 SERVICE TIME: 4:14 PM LOS: 0 days [facility] can accept pending precert. [facility] tasked to start precert. SIGNATURE: Cheryl Trevino RN PATIENT NAME: Fahad Sotelo DATE: May 03, 2021 TIME: 4:14 PM PAGER/CONTACT #: [phone] [facility] 05-03-2021 Note HNO ID: [id number] Author: Cheryl Trevino RN Service: Care Management Author Type: Registered Nurse Type: Care Mgt Progress Note Filed: 05/03/2021 2:31 PM Note Text: CARE MANAGEMENT PROGRESS NOTE SERVICE DATE: 05/03/2021 SERVICE TIME: 2:30 PM LOS: 0 days [place] of Choice Given: Yes Reason Not Given: Unable to complete with this assessment - revisit Level of Care Discussed: [facility] Financial Disclosure Provided: Yes Provider List: [facility] Provider list within the patient's requested geographic area shared with the patient/family: Yes Quality and resource use metrics shared with the patient that are relevant to the patient's goals of care and treatment preferences:: Yes Referrals to 1. [facility], 2. [facility]. Patient will need precert. SIGNATURE: Cheryl Trevino RN PATIENT NAME: Fahad Sotelo DATE: May 03, 2021 TIME: 2:30 PM PAGER/CONTACT #: [phone] [facility] 05-03-2021 Note HNO ID: [id number] Author: Cheryl Trevino RN Service: Care Management Author Type: Registered Nurse Type: Care Mgt Initial Assessment Filed: 05/03/2021 12:13 PM Note Text: CARE MANAGEMENT: ASSESSMENT AND DISCHARGE PLAN SERVICE DATE: May 03, 2021 SERVICE TIME: 12:12 PM PRIMARY CARE PHYSICIAN: Stanton Velasco II, MD ADMISSION STATUS: Extended Recovery MEDICAL: [facility] Patient/Olive Picker Stated Goals: To return home to life as it was Health Insurance: Comment ([facility]) Health Issues Impacting Discharge Plan: Newly diagnosed Newly Diagnosed: TSA Last Discharge Date: 12/19/19 Is this Within the Past 30 days? Last discharge within 30 days: No Advance Directive: Current Advance Directive: Health Care Power of Food And Beverage Associate In Chart: Yes Up To Date and [...] Walker;Cane Has the Patient Been in a [facility] Facility in the Past 30 days?: No [...] Completely I feel financially burdened by my [id number] expenses for my prescription medication:: 0 - Disagree Completely Risk Score: 0 Patient is categorized as: Low risk < 2 Are you interested in bedside delivery of your medications? Yes Is Patient Psychosocially Complex?: No ASSESSMENT AND PLAN: Medical Needs: Medical Needs: Two or more chronic diseases Psychosocial Needs: Psychosocial Needs: None FREEDOM OF CHOICE EXPLAINED: [place] of Choice Given: No Reason Not Given: Unable to complete with this assessment - revisit POTENTIAL TRANSITION PLANS Home;Home Care;[facility] Facility/Intermediate Care Facility Patient from home alone. Patient self caths twice a day. Patient is concerned about going home with outpatient PT. Would like HHC or SNF if he qualifies. Patient has an outpatient PT at [facility] on . SIGNATURE: Cheryl Trevino RN PATIENT NAME: Fahad Sotelo DATE: May 03, 2021 TIME: 12:12 PM PAGER/CONTACT #: [phone] [facility] 05-03-2021 Note HNO ID: [id number] Author: Christina Salazar PA-C Service: Orthopaedic Surgery Author Type: Physician Financial Sales Assistant Type: Progress Notes Filed: 05/03/2021 9:40 AM [...] Electronically signed by: Christina Salazar PA-C Pager: [phone] [facility] 05-02-2021 Note HNO ID: [id number] Author: RT Sherri(R) Service: Radiology Author Type: Industrial Rehabilitation Consultant Type: Progress Notes Filed: 05/02/2021 11:51 AM [...] IV DATA: Not applicable SIGNED BY: RT Sherri(R) May 02, 2021 11:51 AM [facility] 05-02-2021 Note HNO ID: [id number] Author: Jeanne Beck APRN.KNIT GOODS WASHER Service: Anesthesiology Author Type: Nurse Outreach Coordinator Type: Anesthesia Procedure Notes Filed: 05/02/2021 8:28 AM Note Text: ANESTHESIOLOGY PROCEDURE NOTE PIV General Information Procedure Start Time/Medication Administration: 05/02/2021 8:05 AM Patient Location: OR Staffing KNIT GOODS WASHER: Jeanne Beck APRN.KNIT GOODS WASHER Performed by: NATHANIEL Preparation Sterility Preparation: hand hygiene performed prior to procedure Site Prep: Betadine and chlorhexidine Procedure Details Indication: need for IV access Needle Size/Type: 18 gauge angiocath Imaging Guidance Used: No SIGNATURE: Jeanne Beck APRN.KNIT GOODS WASHER PATIENT NAME: Fahad Sotelo DATE: May 02, 2021 TIME: 8:27 AM CSN: [id number] [facility] 05-02-2021 Note HNO ID: [id number] Author: Jeanne Beck APRN.KNIT GOODS WASHER Service: Anesthesiology Author Type: Nurse Outreach Coordinator Type: Anesthesia Procedure Notes Filed: 05/02/2021 8:22 AM Note Text: ANESTHESIOLOGY PROCEDURE NOTE Airway General Information Procedure Start Time/Medication Administration: 05/02/2021 7:46 AM Patient location during procedure: OR Timeout Performed Pre-procedure: timeout performed Consent Obtained: Yes Patient identity confirmed: arm 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 and 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..] 2021 11:16 AM documented in this encounter [facility] 12-21-2020 History of Present illness Narrative Radiology [...] PERIPHERAL IV DATA: Not applicable SIGNED BY: Kirstin Echeverria RT(R) December 21, 2020 11:38 AM documented in this encounter [facility] Evaluation + Plan note Future Appointments Appointment Date:07/28/2024 12:15:00 PM Scheduled Provider:Forest Solorio MD Location:[facility] Appointment Type:[facility] Follow Up [facility] Evaluation + Plan note [facility] Evaluation note Diagnosis Nontraumatic complete tear of right rotator cuff- [facility] Diagnosis S/P reverse total shoulder arthroplasty, right- Primary [facility] noteNo assessment information availableUc Health Work Phone: Evaluation note* Diagnosis S/P reverse total shoulder arthroplasty, right- Primary [facility]* Diagnosis Urinary retention- Primary Retention of urine, unspecified Self-catheterizes urinary bladder Other specified conditions influencing health status Benign prostatic hyperplasia with weak urinary stream [facility]* Diagnosis S/P reverse total shoulder arthroplasty, right- Primary [facility]* Diagnosis Chronic knee pain after total replacement of right knee joint- Primary [facility]* Diagnosis Stricture of male urethra, unspecified stricture type- Primary Urinary urgency Urgency of urination [facility]* Diagnosis Screening for genitourinary condition- Primary Screening for other and unspecified genitourinary condition Stricture of male urethra, unspecified stricture type [facility]* Diagnosis Rotator cuff dysfunction, left- Primary History of failed repair of rotator cuff Other postprocedural status Left shoulder pain, unspecified chronicity [facility] Diagnosis History of lumbar fusion Chronic midline low back pain, unspecified whether sciatica present Radiculopathy of lumbar region Thoracic or lumbosacral neuritis or radiculitis, unspecified [facility] Diagnosis Nontraumatic complete tear of right rotator cuff Rotator cuff arthropathy of right shoulder Arthritis of shoulder Unspecified arthropathy, shoulder region [facility]* Diagnosis Stricture of urethral meatus in male, unspecified stricture type- Primary documented in this encounter [facility] note* Diagnosis Screening for genitourinary condition- Primary Screening for other and unspecified genitourinary condition documented in this encounter [facility] note* Diagnosis Stricture of male urethra, unspecified stricture type- Primary Post-traumatic stricture of anterior urethra Self-catheterizes urinary bladder Other specified conditions influencing health status [facility]* Diagnosis Stricture of male urethra, unspecified stricture type- Primary Urinary urgency Urgency of urination Low bladder compliance Urinary frequency documented in this encounter [facility] note* Diagnosis Pre-op evaluation- Primary Preoperative examination, unspecified Coronary artery disease involving [place] coronary artery of [place] heart without angina pectoris Mixed hyperlipidemia Essential hypertension Unspecified essential hypertension Urge incontinence Cervical spondylosis with myelopathy Obesity, Class I, BMI 30-34.9 Obesity, unspecified 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 in 2004 emergency CABG due to complicated PCI stable on ASA follows with Cardiology Last OV 06[facility]11/2023 [facility] Dysuria- Primary [facility] Diagnosis Urinary retention- Primary Retention of urine, unspecified [facility] Other specified pre-operative examination- Primary Primary osteoarthritis of right knee Primary localized osteoarthrosis, lower leg Essential hypertension Unspecified essential hypertension Hyperlipidemia, unspecified hyperlipidemia type Coronary artery disease involving [place] coronary artery of [place] heart without angina pectoris Pre-op evaluation- Primary Preoperative examination, unspecified Rotator cuff tear arthropathy of right shoulder Traumatic arthropathy, shoulder region Essential hypertension Unspecified essential hypertension Coronary artery disease involving [place] coronary artery of [place] heart without angina pectoris Obesity, Class I, BMI 30-34.9 Obesity, unspecified Urge incontinence Left shoulder pain, unspecified chronicity Pre-op evaluation- Primary Preoperative examination, unspecified Coronary artery disease involving [place] coronary artery of [place] heart without angina pectoris Mixed hyperlipidemia Essential hypertension Unspecified essential hypertension Urge incontinence Cervical spondylosis with myelopathy Obesity, Class I, BMI 30-34.9 Obesity, unspecified [facility]* Diagnosis Other specified pre-operative examination- Primary Primary osteoarthritis of right knee Primary localized osteoarthrosis, lower leg Essential hypertension Unspecified essential hypertension Hyperlipidemia, unspecified hyperlipidemia type Coronary artery disease involving [place] coronary artery of [place] heart without angina pectoris Pre-op evaluation- Primary Preoperative examination, unspecified Rotator cuff tear arthropathy of right shoulder Traumatic arthropathy, shoulder region Essential hypertension Unspecified essential hypertension Coronary artery disease involving [place] coronary artery of [place] heart without angina pectoris Obesity, Class I, BMI 30-34.9 Obesity, unspecified Urge incontinence S/P reverse total shoulder arthroplasty, right Pre-op evaluation- Primary Preoperative examination, unspecified Coronary artery disease involving [place] coronary artery of [place] heart without angina pectoris Mixed hyperlipidemia Essential hypertension Unspecified essential hypertension Urge incontinence Cervical spondylosis with myelopathy Obesity, Class I, BMI 30-34.9 Obesity, unspecified documented in this encounter [facility] note* Diagnosis Other specified pre-operative examination- Primary Primary osteoarthritis of right knee Primary localized osteoarthrosis, lower leg Essential hypertension Unspecified essential hypertension Hyperlipidemia, unspecified hyperlipidemia type Coronary artery disease involving [place] coronary artery of [place] heart without angina pectoris Pre-op evaluation- Primary Preoperative examination, unspecified Rotator cuff tear arthropathy of right shoulder Traumatic arthropathy, shoulder region Essential hypertension Unspecified essential hypertension Coronary artery disease involving [place] coronary artery of [place] heart without angina pectoris Obesity, Class I, BMI 30-34.9 Obesity, unspecified Urge incontinence Chronic knee pain after total replacement of right knee joint Pre-op evaluation- Primary Preoperative examination, unspecified Coronary artery disease involving [place] coronary artery of [place] heart without angina pectoris Mixed hyperlipidemia Essential hypertension Unspecified essential hypertension Urge incontinence Cervical spondylosis with myelopathy Obesity, Class I, BMI 30-34.9 Obesity, unspecified [facility]* Diagnosis Other specified pre-operative examination- Primary Primary osteoarthritis of right knee Primary localized osteoarthrosis, lower leg Essential hypertension Unspecified essential hypertension Hyperlipidemia, unspecified hyperlipidemia type Coronary artery disease involving [place] coronary artery of [place] heart without angina pectoris Pre-op evaluation- Primary Preoperative examination, unspecified Rotator cuff tear arthropathy of right shoulder Traumatic arthropathy, shoulder region Essential hypertension Unspecified essential hypertension Coronary artery disease involving [place] coronary artery of [place] heart without angina pectoris Obesity, Class I, BMI 30-34.9 Obesity, unspecified Urge incontinence Nontraumatic complete tear of right rotator cuff Pre-op evaluation- Primary Preoperative examination, unspecified Coronary artery disease involving [place] coronary artery of [place] heart without angina pectoris Mixed hyperlipidemia Essential hypertension Unspecified essential hypertension Urge incontinence Cervical spondylosis with myelopathy Obesity, Class I, BMI 30-34.9 Obesity, unspecified documented in this encounter [facility]* Diagnosis Other specified pre-operative examination- Primary Primary osteoarthritis of right knee Primary localized osteoarthrosis, lower leg Essential hypertension Unspecified essential hypertension Hyperlipidemia, unspecified hyperlipidemia type Coronary artery disease involving [place] coronary artery of [place] heart without angina pectoris Right shoulder pain, unspecified chronicity Pre-op evaluation- Primary Preoperative examination, unspecified Rotator cuff tear arthropathy of right shoulder Traumatic arthropathy, shoulder region Essential hypertension Unspecified essential hypertension Coronary artery disease involving [place] coronary artery of [place] heart without angina pectoris Obesity, Class I, BMI 30-34.9 Obesity, unspecified Urge incontinence Pre-op evaluation- Primary Preoperative examination, unspecified Coronary artery disease involving [place] coronary artery of [place] heart without angina pectoris Mixed hyperlipidemia Essential hypertension Unspecified essential hypertension Urge incontinence Cervical spondylosis with myelopathy Obesity, Class I, BMI 30-34.9 Obesity, unspecified documented in this encounter [facility] note* Diagnosis Other specified pre-operative examination- Primary Primary osteoarthritis of right knee Primary localized osteoarthrosis, lower leg Essential hypertension Unspecified essential hypertension Hyperlipidemia, unspecified hyperlipidemia type Coronary artery disease involving [place] coronary artery of [place] heart without angina pectoris Nontraumatic tear of right rotator cuff, unspecified tear extent Acute pain of right shoulder Pre-op evaluation- Primary Preoperative examination, unspecified Rotator cuff tear arthropathy of right shoulder Traumatic arthropathy, shoulder region Essential hypertension Unspecified essential hypertension Coronary artery disease involving [place] coronary artery of [place] heart without angina pectoris Obesity, Class I, BMI 30-34.9 Obesity, unspecified Urge incontinence Pre-op evaluation- Primary Preoperative examination, unspecified Coronary artery disease involving [place] coronary artery of [place] heart without angina pectoris Mixed hyperlipidemia Essential hypertension Unspecified essential hypertension Urge incontinence Cervical spondylosis with myelopathy Obesity, Class I, BMI 30-34.9 Obesity, unspecified [facility] Diagnosis Other specified pre-operative examination- Primary Primary osteoarthritis of right knee Primary localized osteoarthrosis, lower leg Essential hypertension Unspecified essential hypertension Hyperlipidemia, unspecified hyperlipidemia type Coronary artery disease involving [place] coronary artery of [place] heart without angina pectoris Pain in right hip Pain in joint, pelvic region and thigh Pre-op evaluation- Primary Preoperative examination, unspecified Rotator cuff tear arthropathy of right shoulder Traumatic arthropathy, shoulder region Essential hypertension Unspecified essential hypertension Coronary artery disease involving [place] coronary artery of [place] heart without angina pectoris Obesity, Class I, BMI 30-34.9 Obesity, unspecified Urge incontinence Pre-op evaluation- Primary Preoperative examination, unspecified Coronary artery disease involving [place] coronary artery of [place] heart without angina pectoris Mixed hyperlipidemia Essential hypertension Unspecified essential hypertension Urge incontinence Cervical spondylosis with myelopathy Obesity, Class I, BMI 30-34.9 Obesity, unspecified documented in this encounter [facility]* Diagnosis Other specified pre-operative examination- Primary Primary osteoarthritis of right knee Primary localized osteoarthrosis, lower leg Essential hypertension Unspecified essential hypertension Hyperlipidemia, unspecified hyperlipidemia type Coronary artery disease involving [place] coronary artery of [place] heart without angina pectoris Pre-op evaluation- Primary Preoperative examination, unspecified Rotator cuff tear arthropathy of right shoulder Traumatic arthropathy, shoulder region Essential hypertension Unspecified essential hypertension Coronary artery disease involving [place] coronary artery of [place] heart without angina pectoris Obesity, Class I, BMI 30-34.9 Obesity, unspecified Urge incontinence Pre-op evaluation- Primary Preoperative examination, unspecified Coronary artery disease involving [place] coronary artery of [place] heart without angina pectoris Mixed hyperlipidemia Essential [...] influencing health status documented in this encounter [facility]* Diagnosis Other specified pre-operative examination- Primary Primary osteoarthritis of right knee Primary localized osteoarthrosis, lower leg Essential hypertension Unspecified essential hypertension Hyperlipidemia, unspecified hyperlipidemia type Coronary artery disease involving [place] coronary artery of [place] heart without angina pectoris Pre-op evaluation- Primary Preoperative examination, unspecified Rotator cuff tear arthropathy of right shoulder Traumatic arthropathy, shoulder region Essential hypertension Unspecified essential hypertension Coronary artery disease involving [place] coronary artery of [place] heart without angina pectoris Obesity, Class I, BMI 30-34.9 Obesity, unspecified Urge incontinence Pre-op evaluation- Primary Preoperative examination, unspecified Coronary artery disease involving [place] coronary artery of [place] heart without angina pectoris Mixed hyperlipidemia Essential hypertension Unspecified essential hypertension Urge incontinence Cervical spondylosis with myelopathy Obesity, Class I, BMI 30-34.9 Obesity, unspecified Urinary frequency- Primary Urgency of urination Incomplete bladder emptying [facility] Diagnosis Chronic idiopathic constipation- Primary Unspecified constipation 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 Excessive sweating Generalized hyperhidrosis documented in this encounter [facility]* Diagnosis Routine general medical examination at health care facility- Primary Routine general medical examination at a health care facility ACP (advance care planning) Other specified counseling Atherosclerosis of [place] coronary artery of [place] heart without angina pectoris (CMS/HCC) Benign essential [...] specified, unspecified location documented in this encounter [facility]* Diagnosis Other specified pre-operative examination- Primary Primary osteoarthritis of right knee Primary localized osteoarthrosis, lower leg Essential hypertension Unspecified essential hypertension Hyperlipidemia, unspecified hyperlipidemia type Coronary artery disease involving [place] coronary artery of [place] heart without angina pectoris Pre-op evaluation- Primary Preoperative examination, unspecified Rotator cuff tear arthropathy of right shoulder Traumatic arthropathy, shoulder region Essential hypertension Unspecified essential hypertension Coronary artery disease involving [place] coronary artery of [place] heart without angina pectoris Obesity, Class I, BMI 30-34.9 Obesity, unspecified Urge incontinence Pre-op evaluation- Primary Preoperative examination, unspecified Coronary artery disease involving [place] coronary artery of [place] heart without angina pectoris Mixed hyperlipidemia Essential hypertension Unspecified essential hypertension Urge incontinence Cervical spondylosis with myelopathy Obesity, Class I, BMI 30-34.9 Obesity, unspecified Inguinal hernia without obstruction or gangrene, recurrence not specified, unspecified laterality- Primary Overactive bladder Hypertonicity of bladder Incomplete bladder emptying [facility] Diagnosis Benign essential hypertension (CMS/HCC)- Primary Essential hypertension, benign Pulmonary granuloma of histoplasmosis (HCC) (CMS/HCC) Dyslipidemia (CMS/HCC) Other and unspecified hyperlipidemia Allergic rhinitis, unspecified seasonality, unspecified trigger documented in this encounter [facility]* Diagnosis Chronic idiopathic constipation- Primary Unspecified constipation documented in this encounter [facility]* Diagnosis Other specified pre-operative examination- Primary Primary osteoarthritis of right knee Primary localized osteoarthrosis, lower leg Essential hypertension Unspecified essential hypertension Hyperlipidemia, unspecified hyperlipidemia type Coronary artery disease involving [place] coronary artery of [place] heart without angina pectoris Pre-op evaluation- Primary Preoperative examination, unspecified Rotator cuff tear arthropathy of right shoulder Traumatic arthropathy, shoulder region Essential hypertension Unspecified essential hypertension Coronary artery disease involving [place] coronary artery of [place] heart without angina pectoris Obesity, Class I, BMI 30-34.9 Obesity, unspecified Urge incontinence Pre-op evaluation- Primary Preoperative examination, unspecified Coronary artery disease involving [place] coronary artery of [place] heart without angina pectoris Mixed hyperlipidemia Essential hypertension Unspecified essential hypertension Urge incontinence Cervical spondylosis with myelopathy Obesity, Class I, BMI 30-34.9 Obesity, unspecified Unilateral groin pain- Primary Abdominal pain, unspecified site [facility] Constipation, unspecified constipation type- Primary Chronic obstructive pulmonary disease, unspecified (CMS/HCC) documented in this encounter [facility]* Diagnosis Other specified pre-operative examination- Primary Primary osteoarthritis of right knee Primary localized osteoarthrosis, lower leg Essential hypertension Unspecified essential hypertension Hyperlipidemia, unspecified hyperlipidemia type Coronary artery disease involving [place] coronary artery of [place] heart without angina pectoris Pre-op evaluation- Primary Preoperative examination, unspecified Rotator cuff tear arthropathy of right shoulder Traumatic arthropathy, shoulder region Essential hypertension Unspecified essential hypertension Coronary artery disease involving [place] coronary artery of [place] heart without angina pectoris Obesity, Class I, BMI 30-34.9 Obesity, unspecified Urge incontinence Pre-op evaluation- Primary Preoperative examination, unspecified Coronary artery disease involving [place] coronary artery of [place] heart without angina pectoris Mixed hyperlipidemia Essential hypertension Unspecified essential hypertension Urge incontinence Cervical spondylosis with myelopathy Obesity, Class I, BMI 30-34.9 Obesity, unspecified Obstructive defecation (HCC)- Primary High-tone pelvic floor dysfunction Other specified disorders of female genital organs Constipation due to outlet dysfunction Right shoulder pain, unspecified chronicity- Primary documented in this encounter [facility] note* Diagnosis Other specified pre-operative examination- Primary Primary osteoarthritis of right knee Primary localized osteoarthrosis, lower leg Essential hypertension Unspecified essential hypertension Hyperlipidemia, unspecified hyperlipidemia type Coronary artery disease involving [place] coronary artery of [place] heart without angina pectoris Pre-op evaluation- Primary Preoperative examination, unspecified Rotator cuff tear arthropathy of right shoulder Traumatic arthropathy, shoulder region Essential hypertension Unspecified essential hypertension Coronary artery disease involving [place] coronary artery of [place] heart without angina pectoris Obesity, Class I, BMI 30-34.9 Obesity, unspecified Urge incontinence Pre-op evaluation- Primary Preoperative examination, unspecified Coronary artery disease involving [place] coronary artery of [place] heart without angina pectoris Mixed hyperlipidemia Essential hypertension Unspecified essential hypertension Urge incontinence Cervical spondylosis with myelopathy Obesity, Class I, BMI 30-34.9 Obesity, unspecified Constipation due to outlet dysfunction- Primary Right shoulder pain, unspecified chronicity- Primary documented in this encounter [facility] note* Diagnosis Other specified pre-operative examination- Primary Primary osteoarthritis of right knee Primary localized osteoarthrosis, lower leg Essential hypertension Unspecified essential hypertension Hyperlipidemia, unspecified hyperlipidemia type Coronary artery disease involving [place] coronary artery of [place] heart without angina pectoris Pre-op evaluation- Primary Preoperative examination, unspecified Rotator cuff tear arthropathy of right shoulder Traumatic arthropathy, shoulder region Essential hypertension Unspecified essential hypertension Coronary artery disease involving [place] coronary artery of [place] heart without angina pectoris Obesity, Class I, BMI 30-34.9 Obesity, unspecified Urge incontinence Pre-op evaluation- Primary Preoperative examination, unspecified Coronary artery disease involving [place] coronary artery of [place] heart without angina pectoris Mixed hyperlipidemia Essential hypertension Unspecified essential hypertension Urge incontinence Cervical spondylosis with myelopathy Obesity, Class I, BMI 30-34.9 Obesity, unspecified Right shoulder pain, unspecified chronicity- Primary Closed nondisplaced fracture of acromial end of right clavicle, initial encounter Right shoulder pain, unspecified chronicity documented in this encounter [facility] note* Diagnosis Other specified pre-operative examination- Primary Primary osteoarthritis of right knee Primary localized osteoarthrosis, lower leg Essential hypertension Unspecified essential hypertension Hyperlipidemia, unspecified hyperlipidemia type Coronary artery disease involving [place] coronary artery of [place] heart without angina pectoris Pre-op evaluation- Primary Preoperative examination, unspecified Rotator cuff tear arthropathy of right shoulder Traumatic arthropathy, shoulder region Essential hypertension Unspecified essential hypertension Coronary artery disease involving [place] coronary artery of [place] heart without angina pectoris Obesity, Class I, BMI 30-34.9 Obesity, unspecified Urge incontinence Pre-op evaluation- Primary Preoperative examination, unspecified Coronary artery disease involving [place] coronary artery of [place] heart without angina pectoris Mixed hyperlipidemia Essential hypertension Unspecified essential hypertension Urge incontinence Cervical spondylosis with myelopathy Obesity, Class I, BMI 30-34.9 Obesity, unspecified Right shoulder pain, unspecified chronicity documented in this encounter [facility] note* Diagnosis Other specified pre-operative examination- Primary Primary osteoarthritis of right knee Primary localized osteoarthrosis, lower leg Essential hypertension Unspecified essential hypertension Hyperlipidemia, unspecified hyperlipidemia type Coronary artery disease involving [place] coronary artery of [place] heart without angina pectoris Pre-op evaluation- Primary Preoperative examination, unspecified Rotator cuff tear arthropathy of right shoulder Traumatic arthropathy, shoulder region Essential hypertension Unspecified essential hypertension Coronary artery disease involving [place] coronary artery of [place] heart without angina pectoris Obesity, Class I, BMI 30-34.9 Obesity, unspecified Urge incontinence Pre-op evaluation- Primary Preoperative examination, unspecified Coronary artery disease involving [place] coronary artery of [place] heart without angina pectoris Mixed hyperlipidemia Essential hypertension Unspecified essential hypertension Urge incontinence Cervical spondylosis with myelopathy Obesity, Class I, BMI 30-34.9 Obesity, unspecified Closed nondisplaced fracture of acromial end of right clavicle, initial encounter documented in this encounter [facility] note* Diagnosis Left-sided chest pain- Primary Coronary artery disease involving [place] coronary artery of [place] heart with refractory angina pectoris Chronic ischemic heart disease Unspecified chronic ischemic heart disease documented in this encounter [facility] Narrative No data available for this section [facility] Discharge instructions No data available for this section [facility] Progress note No data available for this section [facility] Reason for referral (narrative)* Diagnostic Procedure Only (Routine) - Pending Review Specialty Diagnoses / Procedures Referred By Contac t Referred To Contact XR IMAGING Diagnoses Nontraumatic complete tear of right rotator cuff Procedures XR SHOULDER GENERAL 3V OR MORE AP/TRUE AP/OTHER RIGHT RADEX SHOULDER COMPLETE MINIMUM 2 VIEWS Nehemiah Gilbert PA-C [address] [place] [address] Xr Imaging Referral ID Status Reason Start Date Expiration Date Visits Requested Visits Authorized [id number] Pending Review Auto-Generat ed Referral 05/16/2021 06/15/2022 1 1 [facility] for referral (narrative)* - Pending Review Specialty Diagnoses / Procedures Referred By Contac t Referred To Contact Physical Therapy Diagnoses S/P reverse total shoulder arthroplasty, right Procedures CONSULT TO PHYSICAL THERAPY Nehemiah Gilbert PA-C [address] [place] [address] Referral ID Status Reason Start Date Expiration Date V isits Requested Visits Authorized [id number] Pending Review 06/14/2021 09/12/2021 1 1 [facility] for referral (narrative)* Diagnostic Procedure Only (Routine) - Closed Specialty Diagnoses / Procedures Referred By Contac t Referred To Contact XR IMAGING Diagnoses S/P reverse total shoulder arthroplasty, right Procedures XR SHOULDER GENERAL 3V OR MORE AP/TRUE AP/OTHER RIGHT RADEX SHOULDER COMPLETE MINIMUM 2 VIEWS Nehemiah Gilbert PA-C [address] [place] [address] Xr Imaging Referral ID Status Reason Start Date Expiration Date V isits Requested Visits Authorized [id number] Closed Auto-Generate d Referral 11/07/2021 12/04/2022 1 1 [facility] for referral (narrative)* Diagnostic Procedure Only (Routine) - Closed Specialty Diagnoses / Procedures Referred By Contac t Referred To Contact XR IMAGING Diagnoses Chronic knee pain after total replacement of right knee joint Procedures XR KNEE POST OP 3V AP/LAT/MERCHANT RIGHT RADIOLOGIC EXAMINATION KNEE 3 VIEWS Kev Ferrell MD [address] [place] [address] Xr Imaging Referral ID Status Reason Start Date Expiration Date V isits Requested Visits Authorized [id number] Closed Auto-Generate d Referral 11/11/2021 12/10/2022 1 1 [facility] for referral (narrative)* Diagnostic Procedure Only (Routine) - Closed Specialty Diagnoses / Procedures Referred By Contac t Referred To Contact XR IMAGING Diagnoses Left shoulder pain, unspecified chronicity Procedures XR SHOULDER ORTHO 4V AP/TRUE AP/LAT/OUTLET LEFT RADEX SHOULDER COMPLETE MINIMUM 2 VIEWS Nehemiah Gilbert PA-C [address] [place] [address] Xr Imaging Referral ID Status Reason Start Date Expiration Date V isits Requested Visits Authorized [id number] Closed Auto-Generat ed Referral Patient Cleared - Admin/Chairm an/Director advise to proceed 06/22/2022 07/06/2023 1 1 [facility] for referral (narrative)* Diagnostic Procedure Only (Routine) - Closed Specialty Diagnoses / Procedures Referred By Contac t Referred To Contact CT IMAGING Diagnoses History of lumbar fusion Chronic midline low back pain, unspecified whether sciatica present Radiculopathy of lumbar region Procedures CT LUMBAR SPINE WO IVCON CT SCAN LUMBAR SPINE Himanshu Barba MD [address] [place] [address] Ct Imaging Referral ID Status Reason Start Date Expiration Date V isits Requested Visits Authorized [id number] Closed Auto-Generate d Referral 06/17/2020 07/17/2021 1 1 [facility] for referral (narrative)* Diagnostic Procedure Only (Routine) - Pending Review Specialty Diagnoses / Procedures Referred By Contac t Referred To Contact US IMAGING Diagnoses Stricture of male urethra, unspecified stricture type Urinary urgency Procedures US KIDNEY/BLADDER US RETROPERITONEAL REAL TIME W/IMAGE COMPLETE Louie Salomon [place] [address] [id number] [place] [address] Referral ID Status Reason Start Date Expiration Date Visits Requested Visits Authorized [id number] Pending Review Auto-Generat ed Referral 06/20/2023 07/19/2024 1 1 [facility] for referral (narrative)* Diagnostic Procedure Only (Routine) - Closed Specialty Diagnoses / Procedures Referred By Contac t Referred To Contact XR IMAGING Diagnoses Left shoulder pain, unspecified chronicity Procedures XR SHOULDER ORTHO 4V AP/TRUE AP/LAT/OUTLET LEFT RADEX SHOULDER COMPLETE MINIMUM 2 VIEWS Nehemiah Gilbert PA-C [address] [place] [address] Xr Imaging [id number] Referral ID Status Reason Start Date Expiration Date V isits Requested Visits Authorized [id number] Closed Auto-Generat ed Referral Patient Cleared - Admin/Chairm an/Director advise to proceed or did not respond 06/22/2022 07/06/2023 1 1 [facility] for referral (narrative)* Diagnostic Procedure Only (Routine) - Closed Specialty Diagnoses / Procedures Referred By Contac t Referred To Contact XR IMAGING Diagnoses S/P reverse total shoulder arthroplasty, right Procedures XR SHOULDER GENERAL 3V OR MORE AP/TRUE AP/OTHER RIGHT RADEX SHOULDER COMPLETE MINIMUM 2 VIEWS Nehemiah Gilbert PA-C [address] [place] [address] [place] [address] Referral ID Status Reason Start Date Expiration Date V isits Requested Visits Authorized [id number] Closed Auto-Generate d Referral 11/07/2021 12/04/2022 1 1 [facility] for referral (narrative)* Diagnostic Procedure Only (Routine) - Closed Specialty Diagnoses / Procedures Referred By Contac t Referred To Contact XR IMAGING Diagnoses Chronic knee pain after total replacement of right knee joint Procedures XR KNEE POST OP 3V AP/LAT/MERCHANT RIGHT RADIOLOGIC EXAMINATION KNEE 3 VIEWS Kev Ferrell MD [address] [place] [address] [place] [address] Referral ID Status Reason Start Date Expiration Date V isits Requested Visits Authorized [id number] Closed Auto-Generate d Referral 11/11/2021 12/10/2022 1 1 [facility] for referral (narrative)* Diagnostic Procedure Only (Routine) - Closed Specialty Diagnoses / Procedures Referred By Contac t Referred To Contact XR IMAGING Diagnoses Nontraumatic complete tear of right rotator cuff Procedures XR SHOULDER GENERAL 3V OR MORE AP/TRUE AP/OTHER RIGHT RADEX SHOULDER COMPLETE MINIMUM 2 VIEWS Nehemiah Gilbert PA-C [address] [place] [address] [place] [address] Referral ID Status Reason Start Date Expiration Date V isits Requested Visits Authorized [id number] Closed Auto-Generate d Referral 05/16/2021 06/15/2022 1 1 [facility] for referral (narrative)* Diagnostic Procedure Only (Routine) - Closed Specialty Diagnoses / Procedures Referred By Contac t Referred To Contact XR IMAGING Diagnoses Right shoulder pain, unspecified chronicity Procedures XR SHOULDER ORTHO 4V AP/TRUE AP/LAT/OUTLET RT X-RAY SHOULDER COMPLET MIN 2 VIEWS Nehemiah Gilbert PA-C [address] [place] [address] [place] [address] Referral ID Status Reason Start Date Expiration Date V isits Requested Visits Authorized [id number] Closed Auto-Generate d Referral 12/13/2020 01/12/2022 1 1 [facility] for referral (narrative)* Diagnostic Procedure Only (Routine) - Closed Specialty Diagnoses / Procedures Referred By Contac t Referred To Contact MR IMAGING Diagnoses Nontraumatic tear of right rotator cuff, unspecified tear extent Acute pain of right shoulder Procedures MRI SHOULDER WO IVCON RT MRI, JOINT UPPER EXTREM Stanton Kirkland PA-C [address] [place] [address] [place] [address] Referral ID Status Reason Start Date Expiration Date V isits Requested Visits Authorized [id number] Closed Auto-Generate d Referral 07/30/2020 08/29/2021 1 1 [facility] for referral (narrative)* Outpatient Procedure (Routine) - New Request Specialty Diagnoses / Procedures Referred By Contac t Referred To Contact [facility] Diagnoses Overactive bladder Incomplete bladder emptying Procedures PERIPHERAL NERVE EVALUATION (PNE) PRQ IMPLTJ NEUROSTIM ELTRD SACRAL NRVE W/IMAGING Fady Dye MD [address] [place] [address] [id number] [place] [address] Referral ID Status Reason Start Date Expiration Date Visits Requested Visits Authorized [id number] New Request Auto-Generat ed Referral 02/18/2024 02/17/2025 1 1 * Consult, Test, Treat (Routine) - Authorized Specialty Diagnoses / Procedures Referred By Contac t Referred To Contact General Surgery Diagnoses Inguinal hernia without obstruction or gangrene, recurrence not specified, unspecified laterality Procedures CONSULT TO GENERAL SURGERY OFFICE/OUTPATIENT NEW HIGH MDM 60 MINUTES Fady Dye MD [address] [place] [address] Referral ID Status Reason Start Date Expiration Date Visits Requested Visits Authorized [id number] Authorized PCP Requested Referral 02/18/2024 02/17/2025 1 1 [facility] for visit Narrative* Diagnostic Procedure Only (Routine) - Closed Specialty Diagnoses / Procedures Referred By Contac t Referred To Contact CT IMAGING Diagnoses History of lumbar fusion Chronic midline low back pain, unspecified whether sciatica present Radiculopathy of lumbar region Procedures CT LUMBAR SPINE WO IVCON CT SCAN LUMBAR SPINE Himanshu Barba MD [address] [place] [address] Ct Imaging Referral ID Status Reason Start Date Expiration Date V isits Requested Visits Authorized [id number] Closed Auto-Generate d Referral 06/17/2020 07/17/2021 1 1 [facility] for visit Narrative* Diagnostic Procedure Only (Routine) - Closed Specialty Diagnoses / Procedures Referred By Contac t Referred To Contact XR IMAGING Diagnoses Chronic knee pain after total replacement of right knee joint Procedures XR KNEE POST OP 3V AP/LAT/MERCHANT RIGHT RADIOLOGIC EXAMINATION KNEE 3 VIEWS Kev Ferrell MD [address] [place] [address] [place] [address] Referral ID Status Reason Start Date Expiration Date V isits Requested Visits Authorized [id number] Closed Auto-Generate d Referral 11/11/2021 12/10/2022 1 1 [facility] for visit Narrative* Diagnostic Procedure Only (Routine) - Closed Specialty Diagnoses / Procedures Referred By Contac t Referred To Contact XR IMAGING Diagnoses Nontraumatic complete tear of right rotator cuff Procedures XR SHOULDER GENERAL 3V OR MORE AP/TRUE AP/OTHER RIGHT RADEX SHOULDER COMPLETE MINIMUM 2 VIEWS Nehemiah Gilbert PA-C [address] [place] [address] [place] [address] Referral ID Status Reason Start Date Expiration Date V isits Requested Visits Authorized [id number] Closed Auto-Generate d Referral 05/16/2021 06/15/2022 1 1 [facility] for visit Narrative* Diagnostic Procedure Only (Routine) - Closed Specialty Diagnoses / Procedures Referred By Gene yu Referred To Contact MR IMAGING Diagnoses Nontraumatic tear of right rotator cuff, unspecified tear extent Acute pain of right shoulder Procedures MRI SHOULDER WO IVCON RT MRI, JOINT UPPER EXTREM Stanton Kirkland PA-C [address] [place] [address] [place] [address] Referral ID Status Reason Start Date Expiration Date V isits Requested Visits Authorized [id number] Closed Auto-Generate d Referral 07/30/2020 08/29/2021 1 1 [facility] for visit Narrative* Diagnostic Procedure Only (Routine) - Closed Specialty Diagnoses / Procedures Referred By Gene yu Referred To Contact XR IMAGING Diagnoses Right shoulder pain, unspecified chronicity Procedures XR SHOULDER ORTHO 4V AP/TRUE AP/LAT/OUTLET RIGHT RADEX SHOULDER COMPLETE MINIMUM 2 VIEWS Kev Ferrell MD [address] [place] [address] Phone: tel: fax: [place] [address] Referral ID Status Reason Start Date Expiration Date V isits Requested Visits Authorized [id number] Closed Auto-Generate d Referral 08/26/2024 09/24/[address] [facility] Summary Purpose Family History No Family History Records FoundNo Family History Records FoundNo Family History Records FoundNo Family History Records FoundNo Family History Records FoundNo Family History Records Found No data available for this section No data available for this section No Family History Records FoundNo Family History Records FoundNo Family History Records FoundNo Family History Records Found Advance Directives No Advanced Directives Records FoundDocuments on File Type Date Recorded Patient Olive Picker Expl anation Advance Directive(s) 05/02/2021 6:09 AM [...] Documents on File Type Date Recorded Patient Olive Picker Expl anation Advance Directive(s) 05/02/2021 6:09 AM [...] Directive Response Recorded Date/ Time Advance Directives October 11:57am Documents on File Type Date Recorded Patient Olive Picker Expl anation Advance Directive(s) 05/23/2017 1:09 PM Documents on File Type Date Recorded Patient Olive Picker Expl anation Advance Directive(s) 05/23/2017 1:09 PM [...] URETHRAL, ONCE, 1 dose, On Sun05/30/22 at 2030 Given 05/31/2022 2:07 PM EDT 11 mL Reason for Referral Specialty Diagnoses / Procedures Referred By Gene yu Referred To Contact CT IMAGING Diagnoses Nontraumatic complete tear of right rotator cuff Rotator cuff arthropathy of right shoulder Arthritis of shoulder Procedures CT SHOULDER WO IVCON RT CT SCAN OF ARM Kev Ferrell MD [address] [facility] [place] [place] [address] Ct Imaging Referral ID Status Reason Start Date Expiration Date V isits Requested Visits Authorized [id number] Closed Auto-Generate d Referral 12/21/2020 01/20/2022 1 1 Additional Source Comments (unrecognized sect ion and content) No Status Records FoundNo Status Records FoundNo Status Records FoundNo Status Records FoundNo Status Records FoundNo Status Records FoundNo Status Records FoundNo Status Records FoundNo Status Records FoundNo Status Records Found INFORMATION SOURCE (unrecogn ized section and content) DATE CREATED AUTHOR 10/17/2019 [facility] DATE CREATED AUTHOR AUTHOR'S ORGANIZ ATION 05/05/2021 [facility] DATE CREATED AUTHOR AUTHOR'S ORGANIZ ATION 06/11/2022 [facility] DATE CREATED AUTHOR AUTHOR'S ORGANIZ ATION 01/28/2024 [facility] DATE CREATED AUTHOR AUTHOR'S ORGANIZ ATION 02/23/2024 [facility] DATE CREATED AUTHOR AUTHOR'S ORGANIZ ATION 02/25/2024 [facility] DATE CREATED AUTHOR AUTHOR'S ORGANIZ ATION 07/01/2024 [facility] DATE CREATED AUTHOR AUTHOR'S ORGANIZ ATION 07/18/2024 [facility] DATE CREATED AUTHOR AUTHOR'S ORGANIZ ATION 09/21/2024 [facility] DATE CREATED AUTHOR AUTHOR'S ORGANIZ ATION 10/19/2024 [facility] EPIC Source Comments (unrecognize d section and content) In the event this informatio n is protected by the Federal Confidentiality of Alcohol and Drug Abuse Patient Records regulations: The Federal rules restrict any use of the information to criminally investigate or prosecute any alcohol or drug abuse patient.[facility] the event this information is protected by the Federal Confidentiality of Alcohol and Drug Abuse Patient Records regulations: The Federal rules restrict any use of the information to criminally investigate or prosecute any alcohol or drug abuse patient.[facility] the event this information is protected by the Federal Confidentiality of Alcohol and Drug Abuse Patient Records regulations: The Federal rules restrict any use of the information to criminally investigate or prosecute any alcohol or drug abuse patient.[facility] the event this information is protected by the Federal Confidentiality of Alcohol and Drug Abuse Patient Records regulations: The Federal rules restrict any use of the information to criminally investigate or prosecute any alcohol or drug abuse patient.[facility] the event this information is protected by the Federal Confidentiality of Alcohol and Drug Abuse Patient Records regulations: The Federal rules restrict any use of the information to criminally investigate or prosecute any alcohol or drug abuse patient.[facility] the event this information is protected by the Federal Confidentiality of Alcohol and Drug Abuse Patient Records regulations: The Federal rules restrict any use of the information to criminally investigate or prosecute any alcohol or drug abuse patient.[facility] the event this information is protected by the Federal Confidentiality of Alcohol and Drug Abuse Patient Records regulations: The Federal rules restrict any use of the information to criminally investigate or prosecute any alcohol or drug abuse patient.[facility] the event this information is protected by the Federal Confidentiality of Alcohol and Drug Abuse Patient Records regulations: The Federal rules restrict any use of the information to criminally investigate or prosecute any alcohol or drug abuse patient.[facility] the event this information is protected by the Federal Confidentiality of Alcohol and Drug Abuse Patient Records regulations: The Federal rules restrict any use of the information to criminally investigate or prosecute any alcohol or drug abuse patient.[facility] the event this information is protected by the Federal Confidentiality of Alcohol and Drug Abuse Patient Records regulations: The Federal rules restrict any use of the information to criminally investigate or prosecute any alcohol or drug abuse patient.[facility]In the event this information is protected by the Federal Confidentiality of Alcohol and Drug Abuse Patient Records regulations: The Federal rules restrict any use of the information to criminally investigate or prosecute any alcohol or drug abuse patient.[facility] the event this information is protected by the Federal Confidentiality of Alcohol and Drug Abuse Patient Records regulations: The Federal rules restrict any use of the information to criminally investigate or prosecute any alcohol or drug abuse patient.[facility]In the event this information is protected by the Federal Confidentiality of Alcohol and Drug Abuse Patient Records regulations: The Federal rules restrict any use of the information to criminally investigate or prosecute any alcohol or drug abuse patient.[facility]In the event this information is protected by the Federal Confidentiality of Alcohol and Drug Abuse Patient Records regulations: The Federal rules restrict any use of the information to criminally investigate or prosecute any alcohol or drug abuse patient.[facility] HospitalIn the event this information is protected by the Federal Confidentiality of Alcohol and Drug Abuse Patient Records regulations: The Federal rules restrict any use of the information to criminally investigate or prosecute any alcohol or drug abuse patient.[facility] HospitalIn the event this information is protected by the Federal Confidentiality of Alcohol and Drug Abuse Patient Records regulations: The Federal rules restrict any use of the information to criminally investigate or prosecute any alcohol or drug abuse patient.[facility]In the event this information is protected by the Federal Confidentiality of Alcohol and Drug Abuse Patient Records regulations: The Federal rules restrict any use of the information to criminally investigate or prosecute any alcohol or drug abuse patient.[facility] HospitalIn the event this information is protected by the Federal Confidentiality of Alcohol and Drug Abuse Patient Records regulations: The Federal rules restrict any use of the information to criminally investigate or prosecute any alcohol or drug abuse patient.[facility] HospitalIn the event this information is protected by the Federal Confidentiality of Alcohol and Drug Abuse Patient Records regulations: The Federal rules restrict any use of the information to criminally investigate or prosecute any alcohol or drug abuse patient.[facility] HospitalIn the event this information is protected by the Federal Confidentiality of Alcohol and Drug Abuse Patient Records regulations: The Federal rules restrict any use of the information to criminally investigate or prosecute any alcohol or drug abuse patient.[facility] HospitalIn the event this information is protected by the Federal Confidentiality of Alcohol and Drug Abuse Patient Records regulations: The Federal rules restrict any use of the information to criminally investigate or prosecute any alcohol or drug abuse patient.[facility] HospitalIn the event this information is protected by the Federal Confidentiality of Alcohol and Drug Abuse Patient Records regulations: The Federal rules restrict any use of the information to criminally investigate or prosecute any alcohol or drug abuse patient.[facility] HospitalIn the event this information is protected by the Federal Confidentiality of Alcohol and Drug Abuse Patient Records regulations: The Federal rules restrict any use of the information to criminally investigate or prosecute any alcohol or drug abuse patient.[facility] HospitalIn the event this information is protected by the Federal Confidentiality of Alcohol and Drug Abuse Patient Records regulations: The Federal rules restrict any use of the information to criminally investigate or prosecute any alcohol or drug abuse patient.[facility]In the event this information is protected by the Federal Confidentiality of Alcohol and Drug Abuse Patient Records regulations: The Federal rules restrict any use of the information to criminally investigate or prosecute any alcohol or drug abuse patient.[facility] HospitalIn the event this information is protected by the Federal Confidentiality of Alcohol and Drug Abuse Patient Records regulations: The Federal rules restrict any use of the information to criminally investigate or prosecute any alcohol or drug abuse patient.[facility] HospitalIn the event this information is protected by the Federal Confidentiality of Alcohol and Drug Abuse Patient Records regulations: The Federal rules restrict any use of the information to criminally investigate or prosecute any alcohol or drug abuse patient.[facility] HospitalIn the event this information is protected by the Federal Confidentiality of Alcohol and Drug Abuse Patient Records regulations: The Federal rules restrict any use of the information to criminally investigate or prosecute any alcohol or drug abuse patient.[facility] HospitalIn the event this information is protected by the Federal Confidentiality of Alcohol and Drug Abuse Patient Records regulations: The Federal rules restrict any use of the information to criminally investigate or prosecute any alcohol or drug abuse patient.[facility] HospitalIn the event this information is protected by the Federal Confidentiality of Alcohol and Drug Abuse Patient Records regulations: The Federal rules restrict any use of the information to criminally investigate or prosecute any alcohol or drug abuse patient.[facility] HospitalIn the event this information is protected by the Federal Confidentiality of Alcohol and Drug Abuse Patient Records regulations: The Federal rules restrict any use of the information to criminally investigate or prosecute any alcohol or drug abuse patient.[facility] HospitalIn the event this information is protected by the Federal Confidentiality of Alcohol and Drug Abuse Patient Records regulations: The Federal rules restrict any use of the information to criminally investigate or prosecute any alcohol or drug abuse patient.[facility] HospitalIn the event this information is protected by the Federal Confidentiality of Alcohol and Drug Abuse Patient Records regulations: The Federal rules restrict any use of the information to criminally investigate or prosecute any alcohol or drug abuse patient.[facility] HospitalIn the event this information is protected by the Federal Confidentiality of Alcohol and Drug Abuse Patient Records regulations: The Federal rules restrict any use of the information to criminally investigate or prosecute any alcohol or drug abuse patient.[facility] HospitalIn the event this information is protected by the Federal Confidentiality of Alcohol and Drug Abuse Patient Records regulations: The Federal rules restrict any use of the information to criminally investigate or prosecute any alcohol or drug abuse patient.[facility] HospitalIn the event this information is protected by the Federal Confidentiality of Alcohol and Drug Abuse Patient Records regulations: The Federal rules restrict any use of the information to criminally investigate or prosecute any alcohol or drug abuse patient.[facility] HospitalIn the event this information is protected by the Federal Confidentiality of Alcohol and Drug Abuse Patient Records regulations: The Federal rules restrict any use of the information to criminally investigate or prosecute any alcohol or drug abuse patient.[facility] HospitalIn the event this information is protected by the Federal Confidentiality of Alcohol and Drug Abuse Patient Records regulations: The Federal rules restrict any use of the information to criminally investigate or prosecute any alcohol or drug abuse patient.[facility] HospitalIn the event this information is protected by the Federal Confidentiality of Alcohol and Drug Abuse Patient Records regulations: The Federal rules restrict any use of the information to criminally investigate or prosecute any alcohol or drug abuse patient.[facility] HospitalIn the event this information is protected by the Federal Confidentiality of Alcohol and Drug Abuse Patient Records regulations: The Federal rules restrict any use of the information to criminally investigate or prosecute any alcohol or drug abuse patient.[facility] HospitalIn the event this information is protected by the Federal Confidentiality of Alcohol and Drug Abuse Patient Records regulations: The Federal rules restrict any use of the information to criminally investigate or prosecute any alcohol or drug abuse patient.[facility] HospitalIn the event this information is protected by the Federal Confidentiality of Alcohol and Drug Abuse Patient Records regulations: The Federal rules restrict any use of the information to criminally investigate or prosecute any alcohol or drug abuse patient.[facility] HospitalIn the event this information is protected by the Federal Confidentiality of Alcohol and Drug Abuse Patient Records regulations: The Federal rules restrict any use of the information to criminally investigate or prosecute any alcohol or drug abuse patient.[facility] HospitalIn the event this information is protected by the Federal Confidentiality of Alcohol and Drug Abuse Patient Records regulations: The Federal rules restrict any use of the information to criminally investigate or prosecute any alcohol or drug abuse patient.[facility] HospitalIn the event this information is protected by the Federal Confidentiality of Alcohol and Drug Abuse Patient Records regulations: The Federal rules restrict any use of the information to criminally investigate or prosecute any alcohol or drug abuse patient.[facility] HospitalIn the event this information is protected by the Federal Confidentiality of Alcohol and Drug Abuse Patient Records regulations: The Federal rules restrict any use of the information to criminally investigate or prosecute any alcohol or drug abuse patient.[facility] HospitalIn the event this information is protected by the Federal Confidentiality of Alcohol and Drug Abuse Patient Records regulations: The Federal rules restrict any use of the information to criminally investigate or prosecute any alcohol or drug abuse patient.[facility] HospitalIn the event this information is protected by the Federal Confidentiality of Alcohol and Drug Abuse Patient Records regulations: The Federal rules restrict any use of the information to criminally investigate or prosecute any alcohol or drug abuse patient.[facility] HospitalIn the event this information is protected by the Federal Confidentiality of Alcohol and Drug Abuse Patient Records regulations: The Federal rules restrict any use of the information to criminally investigate or prosecute any alcohol or drug abuse patient.[facility] HospitalIn the event this information is protected by the Federal Confidentiality of Alcohol and Drug Abuse Patient Records regulations: The Federal rules restrict any use of the information to criminally investigate or prosecute any alcohol or drug abuse patient.[facility] HospitalIn the event this information is protected by the Federal Confidentiality of Alcohol and Drug Abuse Patient Records regulations: The Federal rules restrict any use of the information to criminally investigate or prosecute any alcohol or drug abuse patient.[facility] HospitalIn the event this information is protected by the Federal Confidentiality of Alcohol and Drug Abuse Patient Records regulations: The Federal rules restrict any use of the information to criminally investigate or prosecute any alcohol or drug abuse patient.[facility] HospitalIn the event this information is protected by the Federal Confidentiality of Alcohol and Drug Abuse Patient Records regulations: The Federal rules restrict any use of the information to criminally investigate or prosecute any alcohol or drug abuse patient.[facility] HospitalIn the event this information is protected by the Federal Confidentiality of Alcohol and Drug Abuse Patient Records regulations: The Federal rules restrict any use of the information to criminally investigate or prosecute any alcohol or drug abuse patient.[facility] HospitalIn the event this information is protected by the Federal Confidentiality of Alcohol and Drug Abuse Patient Records regulations: The Federal rules restrict any use of the information to criminally investigate or prosecute any alcohol or drug abuse patient.[facility] HospitalIn the event this information is protected by the Federal Confidentiality of Alcohol and Drug Abuse Patient Records regulations: The Federal rules restrict any use of the information to criminally investigate or prosecute any alcohol or drug abuse patient.[facility] HospitalIn the event this information is protected by the Federal Confidentiality of Alcohol and Drug Abuse Patient Records regulations: The Federal rules restrict any use of the information to criminally investigate or prosecute any alcohol or drug abuse patient.[facility] HospitalIn the event this information is protected by the Federal Confidentiality of Alcohol and Drug Abuse Patient Records regulations: The Federal rules restrict any use of the information to criminally investigate or prosecute any alcohol or drug abuse patient.[facility] HospitalIn the event this information is protected by the Federal Confidentiality of Alcohol and Drug Abuse Patient Records regulations: The Federal rules restrict any use of the information to criminally investigate or prosecute any alcohol or drug abuse patient.[facility] HospitalIn the event this information is protected by the Federal Confidentiality of Alcohol and Drug Abuse Patient Records regulations: The Federal rules restrict any use of the information to criminally investigate or prosecute any alcohol or drug abuse patient.[facility] HospitalIn the event this information is protected by the Federal Confidentiality of Alcohol and Drug Abuse Patient Records regulations: The Federal rules restrict any use of the information to criminally investigate or prosecute any alcohol or drug abuse patient.[facility] Reason for Visit (unrecogniz ed section and content) Reason Comments Follow Up Specialty Diagnoses / Procedures Referred By Gene yu Referred To Contact Urology / UROLOGY Diagnoses Unspecified urethral stricture, male, meatal UDS Procedures COMPLEX UROFLOMETRY URODYNAMICS MAIN Louie Salomon MD [address] [place] [address] [facility] [address] [place] [address] Referral ID Status Reason Start Date Expiration Date Visits Re quested Visits Authorized [id number] Closed 08/31/2023 11/29/2023 2 1 Reason Comments [...] unspecified site Cystoscopy Procedures CYSTOURETHROSCOPY CYSTOSCOPY Nithya Rhodes PA-C [address] [place] [address] [place] [address] [place] [address] Referral ID Status Reason Start Date Expiration Date Visits Re quested Visits Authorized [id number] Closed 05/03/2022 02/11/2023 1 1 Reason Comments New Pain Reason Comments Radiology CT Specialty Diagnoses / Procedures Referred By Gene t Referred To Contact CT IMAGING Diagnoses Nontraumatic complete tear of right rotator cuff Rotator cuff arthropathy of right shoulder Arthritis of shoulder Procedures CT SHOULDER WO IVCON RT CT SCAN OF ARM Kev Ferrell MD [address] [place] [address] Ct Imaging Referral ID Status Reason Start Date Expiration Date V isits Requested Visits Authorized [id number] Closed Auto-Generate d Referral 12/21/2020 01/20/2022 1 1 Reason Comments Refill Request Reason Comments Education Of Patient/family Cystoscopy-1 Specialty Diagnoses / Procedures Referred By Gene t Referred To Contact Urology / UROLOGY Diagnoses Stricture of urethral meatus in male, unspecified stricture type CYSTOSCOPY Procedures CYSTOURETHROSCOPY CYSTOSCOPY Radha Ramos MD [address] [place] [address] [place] [address] [place] [address] Referral ID Status Reason Start Date Expiration Date Visits Re quested Visits Authorized [id number] Closed 05/22/2023 02/12/2024 1 1 Reason Comments [...] 2 VIEWS Nehemiah Gilbert PA-C [address] [place] [address] [place] [address] Referral ID Status Reason Start Date Expiration Date V isits Requested Visits Authorized [id number] Closed Auto-Generat ed Referral Patient Cleared - Admin/Chairm an/Director advise to proceed or did not respond 06/22/2022 07/06/2023 1 1 Specialty Diagnoses / Procedures Referred By Contac t Referred To Contact XR IMAGING Diagnoses S/P reverse total shoulder arthroplasty, right Procedures XR SHOULDER GENERAL 3V OR MORE AP/TRUE AP/OTHER RIGHT RADEX SHOULDER COMPLETE MINIMUM 2 VIEWS Nehemiah Gilbert PA-C [address] [place] [address] [place] [address] Referral ID Status Reason Start Date Expiration Date V isits Requested Visits Authorized [id number] Closed Auto-Generate d Referral 11/07/2021 12/04/2022 1 1 Specialty Diagnoses / Procedures Referred By Contac t Referred To Contact XR IMAGING Diagnoses Right shoulder pain, unspecified chronicity Procedures XR SHOULDER ORTHO 4V AP/TRUE AP/LAT/OUTLET RT X-RAY SHOULDER COMPLET MIN 2 VIEWS Nehemiah Gilbert PA-C [address] [facility] [address] [place] [address] Referral ID Status Reason Start Date Expiration Date V isits Requested Visits Authorized [id number] Closed Auto-Generate d Referral 12/13/2020 01/12/2022 1 1 Reason Comments Results Reason Comments Established Patient Follow up OAB Reason Comments Excessive Sweating Pt states he feels hot inside and sweats a lot mostly on his truck x 2 months Back Pain Constipation Reason Comments Medicare Annual Wellness Visit [facility] t Reason Comments Follow Up 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 Reason Comments Fax Received - [facility] Reason Comments Hypertension Results Labs and ct chest Sinusitis Reason Comments Follow Up Groin pain Reason Comments Manometry Reason Comments Pain Specialty Diagnoses / Procedures Referred By Contac t Referred To Contact XR IMAGING Diagnoses Closed nondisplaced fracture of acromial end of right clavicle, initial encounter Procedures XR CLAVICLE 2V RIGHT RADEX CLAVICLE COMPLETE Nehemiah Gilbert PA-C [address] [address] Phone: tel: fax: [place] [address] Referral ID Status Reason Start Date Expiration Date V isits Requested Visits Authorized [id number] Closed Auto-Generate d Referral 2024 10/03/2025 1 1 Reason Comments Hypertension Care Teams (unrecognized sec tion and content) Digital Media Sales Consultant Relationship Specialty Start Date End Date Stanton Velasco II [address] [facility] [address] [place] [address] PCP - General Internal Medicine 04/01/21 Hossein Tran [address] [place] [address] Referring Ophthalmology 08/28/16 David Carrillo [address] [place] [address] Referring Urology 10/06/16 Digital Media Sales Consultant Relationship Specialty Start Date End Date Stanton Velasco II [address] [facility] [address] [place] [address] PCP - General Internal Medicine 04/01/21 Hossein Tran [address] [place] [address] Referring Ophthalmology 08/28/16 David Carrillo [address] [place] [address] Referring Urology 10/06/16 Digital Media Sales Consultant Relationship Specialty Start Date End Date Stanton Velasco II [address] [facility] [address] [place] [address] PCP - General Internal Medicine 04/01/21 Hossein Tran [address] [place] [address] Referring Ophthalmology 08/28/16 David Carrillo P [address] [place] [address] Referring Urology 10/06/16 Digital Media Sales Consultant Relationship Specialty Start Date End Date Stanton Velasco II [address] [place] [address] [place] [address] PCP - General Internal Medicine 04/01/21 Hossein Tran [address] [place] [address] Referring Ophthalmology 08/28/16 David Carrillo [address] [place] [address] Referring Urology 10/06/16 Team Status: Inactive Member Role Status Dates Stanton Velasco II MD Attending Provider Active Digital Media Sales Consultant Relationship Specialty Start Date End Date Stanton Velasco II [address] [place] [address] [place] [address] PCP - General Internal Medicine 04/01/21 Hossein Tran [address] [place] [address] Referring Ophthalmology 08/28/16 David Carrillo [address] [address] Referring Urology 10/06/16 Digital Media Sales Consultant Relationship Specialty Start Date End Date Stanton Velasco II [address] [place] [address] [place] [address] PCP - General Internal Medicine 04/01/21 Hossein Tran [address] [place] [address] Referring Ophthalmology 08/28/16 David Carrillo P [address] [place] [address] Referring Urology 10/06/16 Digital Media Sales Consultant Relationship Specialty Start Date End Date Stanton Velasco II [address] [place] [address] [place] [address] PCP - General Internal Medicine 04/01/21 Hossein Tran [address] [place] [address] Referring Ophthalmology 08/28/16 David Carrillo P [address] [place] [address] Referring Urology 10/06/16 Digital Media Sales Consultant Relationship Specialty Start Date End Date Stanton Velasco II [address] [facility] [address] [place] [address] PCP - General Internal Medicine 04/01/21 Hossein Tran [address] [place] [address] Referring Ophthalmology 08/28/16 David Carrillo P [address] [place] [address] Referring Urology 10/06/16 Digital Media Sales Consultant Relationship Specialty Start Date End Date Stanton Velasco II [address] [place] [address] [place] [address] PCP - General Internal Medicine 04/01/21 Hossein Tran [address] [place] [address] Referring Ophthalmology 08/28/16 David Carrillo P [address] [place] [address] Referring Urology 10/06/16 Digital Media Sales Consultant Relationship Specialty Start Date End Date VelascoStanton II [address] [place] [address] [place] [address] PCP - General Internal Medicine 04/01/21 Hossein Tran [address] [place] [address] Referring Ophthalmology 08/28/16 David Carrillo [address] [place] [address] Referring Urology 10/06/16 Digital Media Sales Consultant Relationship Specialty Start Date End Date Ganesh [place] Alonzo [address] [place] [address] PCP - General Family Medicine 08/28/16 03/31/21 Hossein Tran [address] [place] [address] Referring Ophthalmology 08/28/16 David Carrillo [address] [place] [address] Referring Urology 10/06/16 Digital Media Sales Consultant Relationship Specialty Start Date End Date Watson Centeno [address] [place] [address] PCP - General Family Medicine 08/28/16 03/31/21 Hossein Tran [address] [place] [address] Referring Ophthalmology 08/28/16 David Carrillo [address] [place] [address] Referring Urology 10/06/16 Digital Media Sales Consultant Relationship Specialty Start Date End Date Stanton Velasco II, MD [address] [place] [address] [place] [address] PCP - General Internal Medicine 04/01/21 Hossein Tran, DO [address] [place] [address] Referring Ophthalmology 08/28/16 David Carrillo [address] [place] [address] Referring Urology 10/06/16 Digital Media Sales Consultant Relationship Specialty Start Date End Date Stanton Velasco II, MD [address] [facility] [address] [place] [address] PCP - General Internal Medicine 04/01/21 Hossein Tran, [address] [place] [address] Referring Ophthalmology 08/28/16 David Carrillo MD [address] [place] [address] Referring Urology 10/06/16 Digital Media Sales Consultant Relationship Specialty Start Date End Date Stanton Velasco II, MD [address] [facility] [address] [place] [address] PCP - General Internal Medicine 04/01/21 Hossein Tran DO [address] [place] [address] Referring Ophthalmology 08/28/16 David Carrillo MD [address] [place] [address] Referring Urology 10/06/16 Digital Media Sales Consultant Relationship Specialty Start Date End Date Stanton Velasco II, MD [address] [place] [address] [place], [place] [address] PCP - General Internal Medicine 04/01/21 Hossein Tran DO [address] [place] [address] Referring Ophthalmology 08/28/16 David Carrillo MD [address] [place] [address] Referring Urology 10/06/16 Digital Media Sales Consultant Relationship Specialty Start Date End Date Stanton Velasco II, MD [address] [facility] [address] [place] [address] PCP - General Internal Medicine 04/01/21 Hossein Tran, [address] [place] [address] Referring Ophthalmology 08/28/16 David Carrillo MD [address] [place] [address] Referring Urology 10/06/16 Digital Media Sales Consultant Relationship Specialty Start Date End Date Stanton Velasco II, MD [address] [place] [address] [place] [address] PCP - General Internal Medicine 04/01/21 Hossein Tran DO [address] [place] [address] Referring Ophthalmology 08/28/16 David Carrillo MD [address] [place] [address] Referring Urology 10/06/16 Digital Media Sales Consultant Relationship Specialty Start Date End Date Stanton Velasco II, MD [address] [place] [address] [place] [address] PCP - General Internal Medicine 04/01/21 Hossein Tran, [address] [place] [address] Referring Ophthalmology 08/28/16 David Carrillo MD [address] [place] [address] Referring Urology 10/06/16 Digital Media Sales Consultant Relationship Specialty Start Date End Date Stanton Velasco II, MD [address] [place] [address] [place] [address] PCP - General Internal Medicine 04/01/21 Hossein Tran DO [address] [place] [address] Referring Ophthalmology 08/28/16 David Carrillo MD [address] [place] [address] Referring Urology 10/06/16 Digital Media Sales Consultant Relationship Specialty Start Date End Date Stanton Velasco II, MD [address] [place] [address] [place] [address] PCP - General Internal Medicine 04/01/21 Hossein Tran, DO [address] [place] [address] Referring Ophthalmology 08/28/16 David Carrillo MD [address] [place] [address] Referring Urology 10/06/16 Digital Media Sales Consultant Relationship Specialty Start Date End Date Stanton Velasco II, MD [address] [facility] [address] [place] [address] PCP - General Internal Medicine 04/01/21 Hossein Tran, DO [address] [place] [address] Referring Ophthalmology 08/28/16 David Carrillo MD [address] [place] [address] Referring Urology 10/06/16 Digital Media Sales Consultant Relationship Specialty Start Date End Date Stanton Velasco II, MD [address] [facility] [address] [place], [place] [address] PCP - General Internal Medicine 04/01/21 Hossein Tran DO [address] [place] [address] Referring Ophthalmology 08/28/16 David Carrillo MD [address] [place] [address] Referring Urology 10/06/16 Digital Media Sales Consultant Relationship Specialty Start Date End Date Stanton Velasco II, MD [address] [facility] [address] [place], [place] [address] PCP - General Internal Medicine 04/01/21 Hossein Tran, DO [address] [place] [address] Referring Ophthalmology 08/28/16 David Carrillo MD [address] [place] [address] Referring Urology 10/06/16 Digital Media Sales Consultant Relationship Specialty Start Date End Date Stanton Velasco II, MD [address] [facility] [address] [place] [address] PCP - General Internal Medicine 04/01/21 Hossein Tran, DO [address] [place] [address] Referring Ophthalmology 08/28/16 David Carrillo MD [address] [place] [address] Referring Urology 10/06/16 Digital Media Sales Consultant Relationship Specialty Start Date End Date Stanton Velasco II, MD [address] [place] [address] [place] [address] PCP - General Internal Medicine 04/01/21 Hossein Tran, [address] [place] [address] Referring Ophthalmology 08/28/16 David Carrillo MD [address] [place] [address] Referring Urology 10/06/16 Digital Media Sales Consultant Relationship Specialty Start Date End Date Stanton Velasoc II, MD [address] [facility] [address] [place] [address] PCP - General Internal Medicine 04/01/21 Hossein Tran, DO [address] [place] [address] Referring Ophthalmology 08/28/16 David Carrillo MD [address] [place] [address] Referring Urology 10/06/16 Digital Media Sales Consultant Relationship Specialty Start Date End Date Stanton Velasco II, MD [address] [facility] [address] [place] [address] PCP - General Internal Medicine 04/01/21 Hossein Tran, [address] [place] [address] Referring Ophthalmology 08/28/16 David Carrillo MD [address] [place] [address] Referring Urology 10/06/16 Digital Media Sales Consultant Relationship Specialty Start Date End Date Stanton Velasco II, MD [address] [place] [address] [place] [address] PCP - General Internal Medicine 04/01/21 Hossein Tran, [address] [place] [address] Referring Ophthalmology 08/28/16 David Carrillo MD [address] [place] [address] Referring Urology 10/06/16 Digital Media Sales Consultant Relationship Specialty Start Date End Date Watson Centeno [address] [place] [address] PCP - General Family Medicine 08/28/16 03/31/21 Hossein Tran, [address] [place] [address] Referring Ophthalmology 08/28/16 David Carrillo MD [address] [place] [address] Referring Urology 10/06/16 Digital Media Sales Consultant Relationship Specialty Start Date End Date Stanton Velasco II, MD [address] [facility] [address] [place] [address] PCP - General Internal Medicine 04/01/21 Hossein Tran DO [address] [place] [address] Referring Ophthalmology 08/28/16 David Carrillo MD [address] [place] [address] Referring Urology 10/06/16 Digital Media Sales Consultant Relationship Specialty Start Date End Date Watson Centeno [address] [place] [address] PCP - General Family Medicine 08/28/16 03/31/21 Hossein Tran DO [address] [place] [address] Referring Ophthalmology 08/28/16 David Carrillo MD [address] [place] [address] Referring Urology 10/06/16 Digital Media Sales Consultant Relationship Specialty Start Date End Date Watson Centeno [address] [place] [address] PCP - General Family Medicine 08/28/16 03/31/21 Hossein Tran, [address] [place] [address] Referring Ophthalmology 08/28/16 David Carrillo MD [address] [place] [address] Referring Urology 10/06/16 Digital Media Sales Consultant Relationship Specialty Start Date End Date Stanton Velasco II, MD [address] [place] [address], [place] [address] PCP - General Internal Medicine 04/01/21 Hossein Tran DO [address] [place] [address] Referring Ophthalmology 08/28/16 David Carrillo MD [address] [place] [address] Referring Urology 10/06/16 Digital Media Sales Consultant Relationship Specialty Start Date End Date Stanton Velasco II, MD [address] [place] [address] [place] [address] PCP - General Internal Medicine 04/01/21 Hossein Tran DO [address] [place] [address] Referring Ophthalmology 08/28/16 David Carrillo MD [address] [place] [address] Referring Urology 10/06/16 Digital Media Sales Consultant Relationship Specialty Start Date End Date Stanton Velasco MD [address] [place] [address] PCP - Devoted 02/12/21 Stanton Velasco MD [address] [place] [address] PCP - General Internal Medicine 08/18/22 Digital Media Sales Consultant Relationship Specialty Start Date End Date Stanton Velasco II, MD [address] [place] [address] [place] [address] PCP - General Internal Medicine 04/01/21 Hossein Tran DO [address] [place] [address] Referring Ophthalmology 08/28/16 David Carrillo MD [address] [place] [address] Referring Urology 10/06/16 Digital Media Sales Consultant Relationship Specialty Start Date End Date Stanton Velasco MD [address] [place] [address] PCP - Devoted 02/12/21 Stanton Velasco MD [address] [place] [address] PCP - General Internal Medicine 08/18/22 Digital Media Sales Consultant Relationship Specialty Start Date End Date Stanton Velasco MD [address] [place] [address] PCP - Devoted 02/12/21 Stanton Velasco MD [address] [place] [address] PCP - General Internal Medicine 08/18/22 Digital Media Sales Consultant Relationship Specialty Start Date End Date Stanton Velasco MD [address] [place] [address] PCP - General Internal Medicine 08/18/22 Digital Media Sales Consultant Relationship Specialty Start Date End Date Stanton Velasco MD [address] [place] [address] PCP - General Internal Medicine 08/18/22 Digital Media Sales Consultant Relationship Specialty Start Date End Date Stanton Velasco II, MD [address] [facility] [address] [place] [address] PCP - General Internal Medicine 04/01/21 Hossein Tran, [address] [place] [address] Referring Ophthalmology 08/28/16 David Carrillo MD [address] [place] [address] Referring Urology 10/06/16 Digital Media Sales Consultant Relationship Specialty Start Date End Date Stanton Velasco II, MD [address] [facility] [address] [place] [address] PCP - General Internal Medicine 04/01/21 Hossein Tran, [address] [place] [address] Referring Ophthalmology 08/28/16 David Carrillo MD [address] [place] [phone] Referring Urology 10/06/16 Digital Media Sales Consultant Relationship Specialty Start Date End Date Stanton Velasco MD [address] [place] [address] PCP - General Internal Medicine 08/18/22 Digital Media Sales Consultant Relationship Specialty Start Date End Date Stanton Velasco MD [address] [place], [place] [address] PCP - General Internal Medicine 08/18/22 Emelyn Hall, LEATHA Clinical Advocate Family [facility] 03/21/24 Digital Media Sales Consultant Relationship Specialty Start Date End Date Stanton Velasco MD [address] [place] [address] PCP - General Internal Medicine 08/18/22 Emelyn Hall RN Clinical Advocate Family [facility] 03/21/24 Digital Media Sales Consultant Relationship Specialty Start Date End Date Stanton Velasco II, MD [address] [place] [place] [address] PCP - General Internal Medicine 04/01/21 Hossein Tran DO [address] [place] [place] [phone] Referring Ophthalmology 08/28/16 David Carrillo MD [address] [address] Referring Urology 10/06/16 Digital Media Sales Consultant Relationship Specialty Start Date End Date Stnaton Velasco MD [address] [place] [address] PCP - General Internal Medicine 08/18/22 Emelyn Hall RN Clinical Advocate [facility] 03/21/24 Digital Media Sales Consultant Relationship Specialty Start Date End Date Stanton Velasco MD [address] [place] [address] PCP - General Internal Medicine 08/18/22 Emelyn Hall RN Clinical Advocate [facility] 03/21/24 Digital Media Sales Consultant Relationship Specialty Start Date End Date Stanton Velasco MD [address] [place] [address] PCP - General Internal Medicine 08/18/22 Stanton Velasco MD [address] [place] [address] PCP - Medical [place] 02/13/2402/11 Alvina Sanchez LPN 05/06/24 Digital Media Sales Consultant Relationship Specialty Start Date End Date Stanton Velasco MD [address] [place] [address] PCP - General Internal Medicine 08/18/22 Stanton Velasco MD [address] [place] [address] PCP - Medical [place] 02/13/2402/11 Alvina Sanchez LPN [address] [place] [address] 05/06/24 Digital Media Sales Consultant Relationship Specialty Start Date End Date Stanton Velasco II, MD [address] [facility] [address] [place] [address] PCP - General Internal Medicine 04/01/21 Hossein Tran DO [address] [place] [phone] Referring Ophthalmology 08/28/16 David Carrillo MD [address] [place] [phone] Referring Urology 10/06/16 Digital Media Sales Consultant Relationship Specialty Start Date End Date Stanton Velasco II, MD [address] [place] [address] PCP - General Internal Medicine 04/01/21 Hossein Tran DO [address] [place] [phone] Referring Ophthalmology 08/28/16 David Carrillo MD [address] [place] [address] Referring Urology 10/06/16 Digital Media Sales Consultant Relationship Specialty Start Date End Date Stanton Velasco II, MD [address] [facility] [address] [place] [address] PCP - General Internal Medicine 04/01/21 Hossein Tran, DO [address] [place] [address] Referring Ophthalmology 08/28/16 David Carrillo MD [address] [place] [address] Referring Urology 10/06/16 Digital Media Sales Consultant Relationship Specialty Start Date End Date Stanton Velasco MD [address] [facility] [address] [place] [address] PCP - General Internal Medicine 08/18/22 Stanton Velasco MD [address] [place] [address] PCP - Medical [facility] 02/13/2402/11 Alvina Sanchez LPN [address] [facility] [place] [address] 05/06/24 Digital Media Sales Consultant Relationship Specialty Start Date End Date Stanton Velasco MD [address] [facility] [address] [place] [address] PCP - General Internal Medicine 08/18/22 Stanton Velasco MD [address] [facility] [address] [place] [address] PCP - Medical [place] 02/13/2402/11 Alvina Sanchez LPN [address] [facility] [place] [address] 05/06/24 Goals (unrecognized section and content) Goals may be documented in a n alternate section No data available for this section No data available for this section FOR RECORDS PERTAINING TO PATIENTS WHO [...] BE BASED ON THE PRIMARY CLINICAL RECORDS. [employer] provides no warranty or guarantee of the accuracy or completeness of information in this document.
== END 2024-10-20 10:12 | disposition home or self-care (01) ==
PROVIDERS: PCP Internal Medicine; Visit Provider Internal Medicine
DX: R07.9 Chest pain, unspecified (principal)
CPT/HCPCS: 71046

== ENCOUNTER 2024-11-01 12:37 | Emergency (ER) | payer MEDICARE, SELFPAY ==
--- OUTSIDE RECORDS SUMMARY | 2024-10-22 11:20 | XMS_ITS | Encounter Summary ---
Author Organization [facility] Address [address] [place] [address] Care Team Providers Care Marketing Recruiter Name Role Phone Stanton Velasco MD Primary Care Provider [phone] Reason for Referral * (Routine) - Pending Review Specialty Diagnoses / Procedures Referred By Gene t Referred To Contact Diagnoses Other chest pain Procedures ECG 12 lead unit performed Caitlyn Alcaraz CNP [address] [place] [address] Phone: tel: fax: Referral ID Status Reason Start Date Expiration Date V isits Requested Visits Authorized [id number] Pending Review 10/22/2024 10/22/2025 1 1 Reason for Visit * Reason Comments Coronary Artery Disease Follow-up Patient is here toda y for an early appointment for complaints of chest pain Chest Pain Constant Left sided chest pain. Denies any other symptoms. Patient had x-ray on Sunday Hypertension Hyperlipidemia Chronic ischemic heart disease Fall 1 month ago fell on right shoulder and broke clavicle Encounter Details Date Type Department Care Team (Late st Contact Info) Description 10/22/2024 11:20 AM EDT Office Visit [facility] [address] [place] [address] Caitlyn Alcaraz CNP [address] [place] [address] Other chest pain (Primary Dx); Coronary artery disease involving catawba coronary artery of catawba heart without angina pectoris; Hx of CABG; Benign hypertensive heart disease without congestive heart failure; Mixed hyperlipidemia Social History Tobacco Use Types Packs/Day Years Used Date Smoking Tobacco: Former Cigarettes Smokeless Tobacco: Never Alcohol Use Standard Drinks/Week Comments Yes 0 (1 standard drink = 0.6 oz pur e alcohol) occasional [place] [employer] Answer Date Rec [...] Heterosexual or Straight 06/2024 3:45 PM EDT documented as of this encounter Last Filed Vital Signs Vital Sign Reading Time Taken Comments Blood Pressure 99/61 10/22/2024 11:21 AM EDT Pulse 60 10/22/2024 11:21 AM EDT Temperature - - Respiratory Rate - - Oxygen Saturation 94% 10/22/2024 11:21 AM EDT Inhaled Oxygen Concentration - - Weight 97.5 kg (215 lb) 10/22/2024 11:21 AM EDT Height 177.8 cm (5' 10 ) 10/22/2024 11:21 AM EDT Body Mass Index 30.85 10/22/2024 11:21 AM EDT documented in this encounter Progress Notes * Caitlyn Alcaraz CNP - 10/22/2024 11:20 AM EDT Images from the original note were not included. Cardiovascular Medicine [facility] SUBJECTIVE Chief Complaint Patient presents with Coronary Artery Disease Follow-up Patient is here today for an early appointment for complaints of chest pain Chest Pain Constant Left sided chest pain. Denies any other symptoms. Patient had x-ray on Sunday Hypertension Hyperlipidemia Chronic ischemic heart disease Fall 1 month ago fell on right shoulder and broke clavicle Fahad Sotelo is a 74 y.o. male here for a sick visit for c/o chest pain. PMHx: CAD, s/p single vessel bypass graft surgery, HTN HPI 10/22/2024 He notes he had a fall 1 month ago, landed on his right shoulder and he was found to have a broken clavicle. He notes since then he has had pain on the left side of his upper chest. Pain is a constant ache, non radiating. Does not worsen with exertion. No accompanied sx's. Denies c/o dyspnea, orthopnea, PND, LE edema, dizziness/LH, palpitations, syncope. Problem List[1] Medical History[2] Family History[3] Social History[4] Allergies[5] OBJECTIVE Visit Vitals BP 99/61 (BP Location: Right arm, Patient Position: Sitting) Pulse 60 Ht 1.778 m (5' 10 ) Wt 97.5 kg (215 lb) SpO2 94% BMI 30.85 kg/m?? Smoking Status Former BSA 2.19 m?? Medications: Current Medications[6] Physical Exam Constitutional: Appearance: Normal appearance. He is normal weight. HENT: Head: Normocephalic and atraumatic. Right Ear: External ear normal. Left Ear: External ear normal. Eyes: Extraocular Movements: Extraocular movements intact. Pupils: Pupils are equal, round, and reactive to light. Neck: Vascular: No carotid bruit. Cardiovascular: Rate and Rhythm: Normal rate and regular rhythm. Pulses: Normal pulses. Heart sounds: Normal heart sounds. Pulmonary: Effort: Pulmonary effort is normal. Breath sounds: Normal breath sounds. Abdominal: General: Bowel sounds are normal. Palpations: Abdomen is soft. Musculoskeletal: General: Normal range of motion. Cervical back: Neck supple. Right lower leg: No edema. Left lower leg: No edema. Skin: General: Skin is warm and dry. Neurological: General: No focal deficit present. Mental Status: He is alert and oriented to person, place, and time. Psychiatric: Mood and Affect: Mood normal. Behavior: Behavior normal. Thought Content: Thought content normal. Judgment: Judgment normal. Labs: No results found for: EXTCMP , BMPR1A , CBCDIF , BNP , LASAP , RED No visits with results within 6 Month(s) from this visit. Latest known visit with results is: No results found for any previous visit. Lipid profile 04/06/2023: Cholesterol 127, LDL 71, HDL 40, triglycerides 115 02/15/2024 Hgb 16.1, WBC 6.5, plt 201 Cr 0.75, BUN 13, K 4.3, Na 140, eGFR 94, AST 13, ALT 14 Chol 129, HDL 43, trig 97, LDL 68 Testing/Procedures: Cardiovascular Laboratory Report 2011 FINAL IMPRESSIONS: 1. Occluded mid-left anterior descending coronary artery. 2. Patent saphenous vein graft to the distal left anterior descending coronary artery. 3. [id number] diffuse in-stent restenosis of right coronary artery [...] 4. Follow up with me in the [facility] in 1 month. 5. Follow up with Dr. Mcdonald as scheduled. Echocardiogram 06/07/2022: Global left ventricular systolic function is normal; EF is 60 to 65%. Normal diastolic function. Right ventricle is normal in size and systolic function. No significant valvular abnormalities. Anterior free space; trivial effusion versus fat pad. Stress test 06/28/2023: Normal nuclear medicine myocardial perfusion scan ECHO 06/05/2024 Normal LV size and systolic function, estimated LVEF 55-60% Normal RV size and systolic function Mild LA dilatation Trivial MR ASSESSMENT/PLAN: Diagnoses and all orders for this visit: Other chest pain - ECG 12 lead unit performed Coronary artery disease involving catawba coronary artery of catawba heart without angina pectoris Hx of CABG Benign hypertensive heart disease without congestive heart failure Mixed hyperlipidemia #Coronary atherosclerosis; history of coronary artery bypass graft surgery- saphenous vein graft to the LAD (2004) given need for emergency CABG due to complicated PCI #Chest pain -Chest pain is atypical for cardiac in nature. Suspect it is related to his recent fall. -EKG today shows sinus rhythm, no ischemic changes -Advised he take some ibuprofen for a few days to see if this helps along with rest and ice. Will have him come back in a few weeks and if sx's persist will discuss proceeding with a stress test for ischemic evaluation. Advised pt that if sx's worsen or change/accompanied sx's develop, he is it report to the ER - he states understanding. -Continue ASA, statin, imdur, lopressor #HTN -Well controlled -Continue lisinopril, lopressor #HLD -Well controlled per 02/2024 lipid panel -Continue rosuvastatin 40mg daily #Mitral regurg -Trivial MR per 05/2024 TTE -Continue to monitor with serial ECHOs Follow up in about 4 weeks (around 11/19/2024). 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 Complete rotator cuff tear or rupture of right shoulder, not specified as traumatic Dyspnea Essential hypertension History of lumbar fusion Hyperlipidemia, unspecified Mixed hyperlipidemia Loose right total knee arthroplasty Muscle wasting and atrophy, not elsewhere classified, multiple sites Obesity, Class I, BMI 30-34.9 Primary osteoarthritis of right hip Osteoarthritis of right knee Other chronic pain Pre-op evaluation Preop testing Bladder disorder, unspecified Rotator cuff tear arthropathy of right shoulder Shoulder weakness Cervical spondylosis with myelopathy Cervical stenosis of spine Unsteadiness on feet Urge incontinence Vitamin D deficiency, unspecified Abnormal gait Alteration in self-care ability Arthritis of both knees Atopic dermatitis Benign prostatic hyperplasia with urinary obstruction Chronic idiopathic constipation Chronic ischemic heart disease Contracture of right hip joint Disturbance of skin sensation Diverticulosis of colon Dyslipidemia Edema History of coronary artery disease History of right knee joint replacement Impingement syndrome of left shoulder group home (current) use of anticoagulants Mild cognitive disorder Multiple nodules of lung Polyp of colon Presbyopia Raynaud's syndrome without gangrene Seasonal allergic rhinitis Stage 2 chronic kidney disease Chronic obstructive pulmonary disease (CMS/HCC) 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 Oxybutynin Unknown Other Reaction(s): Constipation Trospium Unknown Other Reaction(s): Xerostomia [6] Current Outpatient Medications: aspirin 81 mg chewable [...] under the tongue every 5 (five) minutes ifneeded., Disp: , Rfl: ondansetron ODT (Zofran-ODT) 4 mg disintegrating tablet, Take 4 mg by mouth every 4 (four) hours ifneeded., Disp: , Rfl: rosuvastatin (Crestor) 40 mg tablet, Crestor 40 mg tablet, Disp: , Rfl: plecanatide (Trulance) tablet tablet, Take 3 mg by mouth in the morning. (Patient not taking: Reported on 10/22/2024), Disp: , Rfl: tenapanor (Ibsrela) 50 mg tablet, Take 50 mg by mouth twice a day., Disp: , Rfl: documented in this encounter Plan of Treatment Upcoming Encounters Date Type Department Care Team (Late st Contact Info) Description 11/25/2024 11:20 AM EDT Office Visit [facility] [address] [place] [address] Caitlyn Alcaraz CNP [address] [place] [phone] documented as of this encounter Procedures Procedure Name Priority Date/Time Associated Diagnosis Comments ECG 12 LEAD UNIT PERFORMED Routine 10/22/2024 11:09 AM EDT Other chest pain documented in this encounter Results * ECG 12 lead unit performed (10/22/2024 11:09 AM EDT) Caitlyn Alcaraz [facility] ECG ORDERABLES Final Result documented in this encounter Visit Diagnoses Diagnosis Other chest pain- Primary Coronary artery disease involving catawba coronary artery of catawba heart without angina pectoris Hx of CABG 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
--- OUTSIDE RECORDS SUMMARY | 2024-10-24 09:45 | XMS_ITS | Encounter Summary ---
Author Organization [facility] Address [address] [facility] [place] [address] Care Team Providers Care Cement Rubber Name Role Phone Stanton Velasco MD Primary Care Provider [phone] Stanton Velasco MD Unavailable [phone] Alvina Sanchez LPN Unavailable Reason for Visit * Reason Comments Chest Pain Results cxr Encounter Details Date Type Department Care Team (Late st Contact Info) Description 10/24/2024 9:45 AM EDT [facility] [address] [facility] [address] [place] [phone] Stanton Velasco MD [address] [facility] [address] [place], [place] [id number] Left-sided chest pain (Primary Dx); Coronary artery disease involving paiute-shoshone coronary artery of paiute-shoshone heart with refractory angina pectoris Social History Tobacco Use Types Packs/Day Years [...] often do you attend chur ch or adventism services? 1 to 4 times per year 10/20/2022 Do you belong to any clubs o r organizations such as synagogue groups, unions, fraternal or athletic groups, or [...] Recorded Patient Health Questionnaire-2 Score 0 04/16/2024 [facility] of Occupat ional Health - Occupational Stress [...] Sign Reading Time Taken Comments Blood Pressure 114/70 10/24/2024 9:33 AM EDT Pulse 64 10/24/2024 9:33 AM EDT Temperature - - Respiratory Rate - - Oxygen Saturation 94% 10/24/2024 9:33 AM EDT Inhaled Oxygen Concentration - - Weight 98.9 kg (218 lb) 10/24/2024 9:33 AM EDT Height 177.8 cm (5' 10 ) 10/24/2024 9:33 AM EDT Body Mass Index 31.28 10/24/2024 9:33 AM EDT documented in this encounter Progress Notes * Stanton Velasco MD - 10/24/2024 9:45 AM EDT Images from the original note were not included. HPI Results Additional comments: cxr Last edited by Lucy Solorio LPN on 10/24/2024 9:42 AM. Subjective Patient ID: Fahad Sotelo is a 74 y.o. male who presents for Chest Pain and Results (cxr). Pt states he still occ gets the left upper chest pain Denies aggravating factors Denies: dyspnea,diaphoresis, syncope Tried a nitroglycerin but did not make a difference in the pain Saw cardiology 2 days ago no changes made, he has follow up with them in 1 month Chest Pain Current Outpatient Medications on File Prior to [...] hours. nitroglycerin (Nitrostat) 0.[address] 1 tablet (0.4 mg) under the tongue every 5 (five) minutes if needed for chest pain May repeat every 5 minutes for up to 3 doses. 100 tablet 11 ondansetron ODT (Zofran-ODT) 4 MG disintegrating tablet [...] (thin layer on neck, chest) TWICEDAILY NEEDED [DISCONTINUED] linaCLOtide (Linzess) 290 MCG capsule Take 1 capsule (290 mcg) by mouth in the morning for 16 days. Take before meals. Do not crush or chew.. (Patient not taking: Reported on 10/17/2024)16 capsule 0 No current facility-administered medications on file prior [...] TRANSURETHRAL RESECTION OF PROSTATE Visit Vitals BP 114/70 Pulse 64 Ht 5' 10 Wt 218 lb SpO2 94% BMI 31.28 kg/m?? Smoking Status Never BSA 2.21 m?? Review of Systems Cardiovascular: Positive for chest pain. Objective Physical Exam Constitutional: General: He [...] for this visit: Left-sided chest pain - This is musculoskeletal. No response to NTG, saw Cardiology and they agree. Should improve with time. Chest XRAy was negative. Coronary artery disease involving paiute-shoshone coronary artery of paiute-shoshone heart with refractory angina pectoris Follow up in about 4 months (around 02/23/2025) for Routine F/U. documented in this encounter Plan of Treatment Not on file documented as of this encounter Visit Diagnoses Diagnosis Left-sided chest pain- Primary Coronary artery disease involving paiute-shoshone coronary artery of paiute-shoshone heart with refractory angina pectoris documented in this encounter Additional Health Concerns Assessment Noted Time PHQ-9 Depression Total Score: 0 05/23/19 24 9:00 AM EDT documented as of this encounter Care Teams Cement Rubber Relationship Specialty Start Date End Date Statnon Velasco MD [address] [facility] [address] [place] [address] PCP - General Internal Medicine 08/18/22 Stanton Velasco MD [address] [facility] [address] [place] [address] PCP - Medical [facility] 02/13/2402/11 Alvina Sanchez LPN [address] [facility] [address] [place] [address] 05/06/24 documented as of this encounter
--- OUTSIDE RECORDS SUMMARY | 2024-10-28 11:02 | XMS_ITS | Encounter Summary ---
Author Organization [facility] Address [facility] [place] [address] Care Team Providers Care Airline Radio Operator Name Role Phone Hossein Tran DO Unavailable [phone] David Carrillo MD Unavailable [phone] Rod FATIMA MD, Stanton Payne Primary Care Provider [phone] Source Comments In the event this information is protected by the Federal Confidentiality of Alcohol and Drug AbusePatient Records regulations: The Federal rules restrict any use of the information to criminally investigate or prosecute any alcohol or drug abuse patient.[facility] Reason for Referral * Diagnostic Procedure Only (Routine) - Closed Specialty Diagnoses / Procedures Referred By Contac t Referred To Contact XR IMAGING Diagnoses Closed nondisplaced fracture of acromial end of right clavicle with routine healing, subsequent encounter Procedures XR CLAVICLE 2V RIGHT RADEX CLAVICLE COMPLETE Nehemiah Garcia PA-C [address] [place] [address] Phone: tel: fax: [place] [id number] Referral ID Status Reason Start Date Expiration Date V isits Requested Visits Authorized [id number] Closed Auto-Generate d Referral 10/21/2024 11/20/2025 1 1 Reason for Visit * Diagnostic Procedure Only (Routine) - Closed Specialty Diagnoses / Procedures Referred By Contac t Referred To Contact XR IMAGING Diagnoses Closed nondisplaced fracture of acromial end of right clavicle with routine healing, subsequent encounter Procedures XR CLAVICLE 2V RIGHT RADEX CLAVICLE COMPLETE Nehemiah Garcia PA-C [address] [facility] [place] [address] Phone: tel: fax: [place] [id number] Referral ID Status Reason Start Date Expiration Date V isits Requested Visits Authorized [id number] Closed Auto-Generate d Referral 10/21/2024 11/20/2025 1 1 Encounter Details Date Type Department Care Team (Latest Contact Info) Description 10/28/2024 11:02 AM EDT - 10/28/2024 11:59 PM EDT Hospital Encounter Radiology [address] [facility] [place] [address] Closed nondisplaced fracture of acromial end of right clavicle with routine healing, subsequent encounter [S42.034D] Discharge Disposition: Home Social History Tobacco Use Types Packs/Day Years [...] is lower risk 9 06/23/2022 Data from: https://www.neighborhoodatlas.medicine.[facility].edu/. Last address used for calculation [address] [...] 3:26 PM EDT Diego Schaeffer RN * Do you have serious difficulty walking or climbing stairs? Answer Date of Assessment Author Yes 05/04/2021 3:26 PM EDT Diego Schaeffer RN * Do you have difficulty dressing or bathing? Answer Date of Assessment Author No 10/31/2018 3:35 PM EDT Larissa Moreira RN * Because of a physical, mental, or emotional condition, do you have difficulty doing errands alone such as visiting a doctor's office or shopping? Answer Date of Assessment Author Yes 05/04/2021 3:26 PM EDT Diego Schaeffer RN documented as of this encounter Mental Status * Because of a physical, mental, or emotional condition, do you have serious difficulty concentrating, remembering, or making decisions? Answer Entry Date Author No 05/04/2021 3:26 PM Diego Yu RN documented in this encounter Medications at Time of Discharge trospium (SANCTURA) 20 mg tablet Take 1 tablet by mouth two times a day. 30 tablet 4 09/11/2023 plecanatide (TRULANCE) 3 mg tablet Take 1 tablet by mouth once daily. 12/13/2022 nitroglycerin sublingual (NITROQUICK) 0.4 mg SL tablet Amoxicillin 500 mg tablet TAKE 4 TABLETS BY MOUTH 1 (ONE) HOUR BEFORE procedure then TAKE 2 TABLETS BY MOUTH 6 (SIX) hours after procedure 6 tablet 3 05/22/2023 acetaminophen (TYLENOL) 500 mg tablet Take 2 tablets by mouth every 6 hours as needed for pain. 05/03/2021 aspirin, enteric coated (ASPIRIN, ENTERIC COATED) 81 mg EC tablet Take 1 tablet by mouth twice daily. 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 10/10/2018 COMPOUNDED PRESCRIPTION 16 fr catheters 30 Device 11 12/24/2017 lisinopril (ZESTRIL, PRINIVIL) 20 mg tablet Take 20 mg by mouth once daily. 3 11/07/2017 ascorbic acid, vitamin C, (VITAMIN C) 500 mg tablet Take 1 tablet by mouth once daily. 06/29/2017 MAGNESIUM HYDROXIDE (MILK OF MAGNESIA ORAL) Take [...] Take 40 mg by mouth once daily. documented as of this encounter Plan of Treatment Upcoming Encounters Date Type Department Care Team (Late st Contact Info) Description 01/02/2025 11:00 AM EST Office Visit Orthopaedics [address] [place] [address] Kev Ferrell MD [address] [facility] [place] [address] 2.sw documented as of this encounter Procedures Procedure Name Priority Date/Time Associated Diagnosis Comments XR CLAVICLE 2V RIGHT Routine 10/28/2024 11:16 AM EDT Closed nondisplaced fracture of acromial end of right clavicle with routine healing, subsequent encounter documented in this encounter Results * XR CLAVICLE 2V RIGHT (10/28/2024 11:16 AM EDT) Anatomical Region Laterality Modality Clavicle Other 10/28/2024 11:1 6 AM EDT Impressions 10/28/2024 5:06 PM EDT IMPRESSION: CONTINUED FRACTURE HEALING. Tobacco Grader: DEEPIKA Transcribe Date/Time: Oct 28 2024 5:02P Dictated by : MARIO HODGES MD This examination was interpreted and the report reviewed and electronically signed by: MARIO HODGES MD on Oct 28 2024 5:04PM EST Narrative 10/28/2024 5:06 PM EDT * * *Final Report* * * DATE OF EXAM: Oct 28 2024 11:16AM [id number] - XR CLAVICLE 2V RT / PROCEDURE REASON: Closed nondisplaced fracture of acromial end of right clavicle with routine heal * * * * Physician Interpretation * * * * HISTORY: Closed nondisplaced fracture of acromial end of right clavicle with routine healing, subsequent encounter TECHNOLOGIST PROVIDED HISTORY (if applicable): right clavicle fx from a fall TECHNIQUE: XR CLAVICLE 2V RT RESULT: 2 views of the RIGHT clavicle are compared with September 19. Slight increase in both resorption and callus formation about the comminuted fracture of the distal RIGHT clavicle without definite articular surface extension. 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 Heterotopic ossification inferiorly unchanged. Postoperative changes of the cervical spine sternum are again seen. Procedure Note Provider, [facility] [place] - 10/28/2024 * * *Final Report* * * DATE OF EXAM: Oct 28 2024 11:16AM [id number] [id number] - XR CLAVICLE 2V RT / PROCEDURE REASON: Closed nondisplaced fracture of acromial end of right clavicle with routine heal * * * * Physician Interpretation * * * * HISTORY: Closed nondisplaced fracture of acromial end of right clavicle with routine healing, subsequent encounter TECHNOLOGIST PROVIDED HISTORY (if applicable): right clavicle fx from a fall TECHNIQUE: XR CLAVICLE 2V RT RESULT: 2 views of the RIGHT clavicle are compared with September 19. Slight increase in both resorption and callus formation about the comminuted fracture of the distal RIGHT clavicle without definite articular surface extension. 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 Heterotopic ossification inferiorly unchanged. Postoperative changes of the cervical spine sternum are again seen. IMPRESSION IMPRESSION: CONTINUED FRACTURE HEALING. Tobacco Grader: DEEPIKA Transcribe Date/Time: Oct 28 2024 5:02P Dictated by : MARIO HODGES MD This examination was interpreted and the report reviewed and electronically signed by: MARIO HODGES MD on Oct 28 2024 5:04PM EST us Nehemiah Garcia PA-C RAD-PAMA Final Resul t documented in this encounter Visit Diagnoses Diagnosis Closed nondisplaced fracture of acromial end of right clavicle with routine healing, subsequent encounter documented in this encounter Care Teams Airline Radio Operator Relationship Specialty Start Date End Date Stanton Velasco II, MD [address] [facility] [address] [place] [address] PCP - General Internal Medicine 04/01/21 Hossein Tran DO [address] [place] [address] Referring Ophthalmology 08/28/16 David Carrillo MD [address] [place] [address] Referring Urology 10/06/16 documented as of this encounter
--- OUTSIDE RECORDS SUMMARY | 2024-10-28 11:45 | XMS_ITS | Encounter Summary ---
Author Organization [facility] Address [facility] [place] [address] Care Team Providers Care Clinical Research Nurse Coordinator Name Role Phone Hossein Tran DO Unavailable [phone] David Carrillo MD Unavailable [phone] Rod FATIMA MD, Stanton Payne Primary Care Provider [phone] Source Comments In the event this information is protected by the Federal Confidentiality of Alcohol and Drug AbusePatient Records regulations: The Federal rules restrict any use of the information to criminally investigate or prosecute any alcohol or drug abuse patient.[facility] Reason for Referral * Diagnostic Procedure Only (Routine) - Closed Specialty Diagnoses / Procedures Referred By Contac t Referred To Contact XR IMAGING Diagnoses Closed nondisplaced fracture of acromial end of right clavicle with routine healing, subsequent encounter Procedures XR CLAVICLE 2V RIGHT RADEX CLAVICLE COMPLETE Nehemiah Garcia PA-C [address] [place] [address] Phone: tel: fax: [place] [address] Referral ID Status Reason Start Date Expiration Date V isits Requested Visits Authorized [id number] Closed Auto-Generate d Referral 10/21/2024 11/20/2025 1 1 Reason for Visit * Reason Comments Follow Up Encounter Details Date Type Department Care Team (Late st Contact Info) Description 10/28/2024 11:45 AM EDT Office Visit Orthopaedics [address] [place] [address] Kev Ferrell MD [address] [place] [address] Closed nondisplaced fracture of acromial end of right clavicle with routine healing, subsequent encounter (Primary Dx) Social History Tobacco Use Types Packs/Day Years [...] is lower risk 9 06/23/2022 Data from: https://www.neighborhoodatlas.medicine.[facility].edu/. Last address used for calculation [address] [...] Author No 05/04/2021 3:26 PM EDT Diego Schaeffer, RN * Are you blind or do [...] of Assessment Author Yes 05/04/2021 3:26 PM EDDiego Richardson RN documented as of this encounter Mental Status * Because of a physical, mental, or emotional condition, do you have serious difficulty concentrating, remembering, or making decisions? Answer Entry Date Author No 05/04/2021 3:26 PM Diego Yu RN documented in this encounter Progress Notes * Kev Ferrell MD - 10/28/2024 11:42 AM EDT This document has been created with the use of voice recognition technology, including AI Scribe technology. It may contain inaccuracies: misspellings, inaccurate syntax or word sense that escaped review. HISTORY: Fahad Sotelo is a 74-year-old male presenting for follow-up on a left clavicle fracture. Fahad reports persistent mild aching pain in the left shoulder since the fracture, which is not significantly exacerbated by movement or reaching across the body. He denies any recent falls or injuries. He notes a limitation in raising his left arm and has been compensating by using his right arm foractivities. He denies significant tenderness at the fracture site, reporting only mild discomfort upon palpation. Additionally, Fahad reports an inguinal hernia causing pain radiating to his leg, particularly when standing for prolonged periods. He is awaiting surgical intervention by Dr. Garcia. HISTORY OF PRESENT ILLNESS: PAIN EVALUATION 10/28/2024 1119 Pain Level: 3 Pain Location: Shoulder-Right Description: Sore Duration Amount of Time: 2 Duration Units: Months Frequency: Intermittent Intervention/Comfort measure: Reposition;Relaxation;Positioning;Medication The patient's past medical history, surgical history, social history, family history, medications and allergies were reviewed with the patient today and are available in the chart for further review. EXAMINATION: EXAMINATION: Examination of the shoulder demonstrating no obvious deformities No erythema. No ecchymosis. No arm swelling. Intact light sensation upper lateral border of the deltoid. No irritability with passive range of motion. actvie forward flexion to 100-120 with no pain, external rotation to 25. Slight tenderness to palpation of distal clavicle Patient has active extension of the wrist and thumb. Biceps contour intact and non-painful/ no obvious sag. Good radial pulse Intact sensation to light touch distally No pain with neck ROM RADIOGRAPHS: XR obtained today, personally reviewed by myself demonstrating slow healing acromial sided clavicle fracture. Reverse shoulder intact and unchanged IMPRESSION: Encounter Diagnosis ICD-10-CM 1. Closed nondisplaced fracture of acromial end of right clavicle with routine healing, subsequent encounter S42.034D XR CLAVICLE 2V RIGHT Procedures PLAN: 1. Closed nondisplaced fracture of acromial end of right clavicle with routine healing, subsequent encounter (S42.034D) X-rays demonstrate slow but routine healing of the right clavicle fracture, with persistent visibility of the fracture line and incomplete bridging of bone margins. Patient reports mild, intermittentaching without significant pain or functional limitation; no new trauma or falls reported. - Advised patient to avoid heavy lifting and strenuous physical activity involving the affected shoulder. - Recommended continuation of multivitamin supplementation, including adequate vitamin C intake, tosupport bone healing. - Plan to obtain repeat X-ray in 2-3 months to continue to monitor healing progress. Nehemiah Garcia PA-C I have personally performed face to face diagnostic evaluation on this patient. I have examined thepatient and reviewed radiographic studies and agree with plan as outlined above. Patient progressing with right distal clavicle fracture. Pain has significantly improved. No significant pain with motion. Will follow-up in a couple months for repeat x-ray to assess for complete healing Kev Ferrell MD October 28, 2024 11:52 AM documented in this encounter Plan of Treatment Upcoming Encounters Date Type Department Care Team (Late st Contact Info) Description 01/02/2025 11:00 AM EST Office Visit Orthopaedics [address] [place], [place] [id number] Kev Ferrell MD [address] [facility] [address] [facility] [place] [address] 2.sw documented as of this encounter Results * XR CLAVICLE 2V RIGHT (10/28/2024 11:16 AM EDT) Anatomical Region Laterality Modality Clavicle Other 10/28/2024 11:1 6 AM EDT Impressions 10/28/2024 5:06 PM EDT IMPRESSION: CONTINUED FRACTURE HEALING. Canary Raiser: DEEPIKA Transcribe Date/Time: Oct 28 2024 5:02P [...] sternum are again seen. Procedure Note Provider, [facility] [place] - 10/28/2024 * * *Final Report* * [...] again seen. IMPRESSION IMPRESSION: CONTINUED FRACTURE HEALING. Canary Raiser: PSCB Transcribe Date/Time: Oct 28 2024 5:02P Dictated by : MARIO HODGES MD This examination was interpreted and the report reviewed and electronically signed by: MARIO HODGES MD on Oct 28 2024 5:04PM EST Nehemiah Garcia PA-C RAD-PAMA Final Resul t documented in this encounter Visit Diagnoses Diagnosis Closed nondisplaced fracture of acromial end of right clavicle with routine healing, subsequent encounter- Primary Closed nondisplaced fracture of acromial end of right clavicle with routine healing, subsequent encounter documented in this encounter Care Teams Clinical Research Nurse Coordinator Relationship Specialty Start Date End Date Stanton Velasco II, MD [address] [facility] [address] [place] [address] PCP - General Internal Medicine 04/01/21 Hossein Tran DO [address] [place] [address] Referring Ophthalmology 08/28/16 David Carrillo MD [address] [place] [address] Referring Urology 10/06/16 documented as of this encounter
[2024-11-01 12:41] VITALS: BP 148/90; PULSE 87; TEMP 37.2; O2SAT 96; BMI 32.3
--- OUTSIDE RECORDS SUMMARY | 2024-11-01 12:44 | XMS_ITS | Encounter Summary ---
Author Organization [facility] Address [address] [facility] [place] [address] Care Team Providers Care Shop Cooper Name Role Phone Stanton Velasco MD Primary Care Provider [phone] Emelyn Hall RN Unavailable [phone] Stanton Velasco MD Unavailable [phone] Alvina Sanchez LPN Unavailable Encounter Details Date Type Department Care Team (Late st Contact Info) Description 04/15/2024 Abstract [facility] [address] [facility] [address] [place] [address] Stanton Velasco MD [address] [facility] 110 [place], [place] [id number] Social History Tobacco Use Types Packs/Day Years [...] often do you attend chur ch or jewish services? 1 to 4 times per year 10/20/2022 Do you belong to any clubs o r organizations such as gnosticist groups, unions, fraternal or athletic groups, or [...] Recorded Patient Health Questionnaire-2 Score 0 04/16/2024 [facility] of Occupat ional Health - Occupational Stress [...] documented as of this encounter Care Teams Shop Cooper Relationship Specialty Start Date End Date Stanton Velasco MD [address] [place] [address] [place] [address] PCP - General Internal Medicine 08/18/22 Stanton Velasco MD [address] [facility] [address] [place] [address] PCP - Medical [facility] 02/13/2402/11 Emelyn Hall, LEATHA [address] [place] [address] [facility] 03/21/24 05/06/24 Alvina Sanchez LPN [address] [address] 05/06/24 documented as of this encounter
--- OUTSIDE RECORDS SUMMARY | 2024-11-01 12:44 | XMS_ITS | Encounter Summary ---
Author Organization [facility] Address [address] [facility] [place] [address] Care Team Providers Care Interactive Digital Media Specialist Name Role Phone Stanton Velasco MD Primary Care Provider [phone] Stanton Velasco MD Unavailable [phone] Alvina Sanchez LPN Unavailable Encounter Details Date Type Department Care Team (Late st Contact Info) Description 06/26/2024 Abstract [facility] [address] [facility] [address] [place] [address] Stanton Velasco MD 112 [facility] [address] [place] [address] Social History Tobacco Use Types Packs/Day Years [...] Recorded Patient Health Questionnaire-2 Score 0 04/16/2024 [facility] of Occupat ional Health - Occupational [...] documented as of this encounter Care Teams Interactive Digital Media Specialist Relationship Specialty Start Date End Date Stanton Velasco MD [address] [place] [address] [address] PCP - General Internal Medicine 08/18/22 Stanton Velasco MD [address] [facility] [address] [place] [address] PCP - Medical [place] 02/13/2402/11 Alvina Sanchez LPN [address] [address] 05/06/24 documented as of this encounter
--- OUTSIDE RECORDS SUMMARY | 2024-11-01 12:44 | XMS_ITS | Encounter Summary ---
Author Organization [facility] Address [address] [facility] [place] [address] Care Team Providers Care Ticket Printer Name Role Phone Stanton Velasco MD Primary Care Provider [phone] Stanton Velasco MD Unavailable [phone] Alvina Sanchez LPN Unavailable Encounter Details Date Type Department Care Team (Late st Contact Info) Description 05/15/2024 [facility] [address] [facility] 110 [place] [address] Stanton Velasco MD 112 [facility] 110 [place] [address] Social History Tobacco Use Types Packs/Day Years [...] any clubs o r organizations such as adventist groups, unions, fraternal or athletic groups, or [...] Patient Health Questionnaire-2 Score 0 04/16/2024 [facility] of Occupat ional Health - Occupational [...] documented as of this encounter Care Teams Ticket Printer Relationship Specialty Start Date End Date Stanton Velasco MD [address] [address] PCP - General Internal Medicine 08/18/22 Stanton Velasco MD [address] [facility] [address] [place] [address] PCP - Medical [place] MA 02/13/2402/11 Alvina Sanchez LPN [address] [address] 05/06/24 documented as of this encounter
--- OUTSIDE RECORDS SUMMARY | 2024-11-01 12:44 | XMS_ITS | Encounter Summary ---
Author Organization [facility] Address [address] [facility] [place] [address] Care Team Providers Care Intelligence Support Officer Name Role Phone Stanton Velasco MD Primary Care Provider [phone] Stanton Velasco MD Unavailable [phone] Alvina Sanchez LPN Unavailable Encounter Details Date Type Department Care Team (Late st Contact Info) Description 05/19/2024 Abstract [facility] [address] [facility] 110 [place] [address] Stanton Velasco MD 112 [facility] 110 [place] [address] Social History Tobacco Use Types Packs/Day Years [...] How often do you attend chur or orthodoxy services? 1 to 4 times per year 10/20/2022 Do you belong to any clubs o r organizations such as mormon groups, unions, fraternal or athletic groups, or [...] Recorded Patient Health Questionnaire-2 Score 0 04/16/2024 [facility] of Occupat ional Health - Occupational [...] place to sleep or slept in a assisted (including now)? No 10/20/2022 Sex and Gender [...] documented as of this encounter Care Teams Intelligence Support Officer Relationship Specialty Start Date End Date Stanton Velasco MD [address] [place] [address] [address] PCP - General Internal Medicine 08/18/22 Stanton Velasco MD [address] [facility] 110 [place] [address] PCP - Medical [place] 02/13/2402/11 Alvina Sanchez LPN [address] [address] 05/06/24 documented as of this encounter
--- OUTSIDE RECORDS SUMMARY | 2024-11-01 12:44 | XMS_ITS | Encounter Summary ---
Author Organization [facility] Address [address] [facility] [place] [address] Care Team Providers Care Life Science Taxonomist Name Role Phone Stanton Velasco MD Unavailable [phone] Stanton Velasco MD Primary Care Provider [phone] Emelyn Hall RN Unavailable [phone] Stanton Velasco MD Unavailable [phone] Alvina Sanchez LPN Unavailable Encounter Details Date Type Department Care Team (Late st Contact Info) Description 10/01/2023 Abstract [facility] [address] [facility] 110 [place] [phone] Stanton Velasco MD [address] [facility] 110 [place], [place] [id number] Social History Tobacco Use Types Packs/Day Years [...] How often do you attend chur or catholic services? 1 to 4 times per year 10/20/2022 Do you belong to any clubs o r organizations such as sikh groups, unions, fraternal or athletic groups, or [...] Recorded Patient Health Questionnaire-2 Score 0 05/23/2023 [facility] - Occupational [...] documented as of this encounter Care Teams Life Science Taxonomist Relationship Specialty Start Date End Date Stanton Velasco MD [address] [facility] 110 [place] [address] PCP - Devoted 02/12/21 02/12/24 Stanton Velasco MD [address] [facility] [address] [place] [address] PCP - General Internal Medicine 08/18/22 Stanton Velasco MD [address] [facility] 110 [place] [address] PCP - Medical [place] 02/13/2402/11 Emelyn Hall, RN [address] [place] [address] Clinical [facility] 03/21/24 05/06/24 Alvina Sanchez LPN 112 [facility] 110 [place] [address] 05/06/24 documented as of this encounter
--- OUTSIDE RECORDS SUMMARY | 2024-11-01 12:44 | XMS_ITS | Encounter Summary ---
Author Organization [facility] Address [address] [facility] [place] [address] Care Team Providers Care Timber Rider Name Role Phone Stanton Velasco MD Primary Care Provider [phone] Stanton Velasco MD Unavailable [phone] Alvina Sanchez LPN Unavailable Encounter Details Date Type Department Care Team (Late st Contact Info) Description 06/17/2024 Abstract [facility] [address] [facility] 110 [place] [address] Stanton Velasco MD 112 [facility] 110 [place] [address] Social History Tobacco Use Types Packs/Day Years [...] How often do you attend chur or holiness services? 1 to 4 times per year [...] documented as of this encounter Care Teams Timber Rider Relationship Specialty Start Date End Date Stanton Velasco MD [address] [place] [address] [address] PCP - General Internal Medicine 08/18/22 Stanton Velasco MD [address] [facility] 110 [place] [address] PCP - Medical [place] 02/13/2402/11 Alvina Sanchez LPN [address] [address] 05/06/24 documented as of this encounter
--- OUTSIDE RECORDS SUMMARY | 2024-11-01 12:44 | XMS_ITS | Encounter Summary ---
Author Organization [facility] Address [address] [place] [address] Care Team Providers Care Decorating Equipment Setter Name Role Phone Hossein Tran DO Unavailable [phone] David Carrillo MD Unavailable [phone] Rod FATIMA MD, Stanton Payne Primary Care Provider [phone] Source Comments In the event this information is protected by the Federal Confidentiality of Alcohol and Drug AbusePatient Records regulations: The Federal rules restrict any use of the information to criminally investigate or prosecute any alcohol or drug abuse patient.[facility] Reason for Visit * Reason Comments Schedule Surgery Encounter Details Date Type Department Care Team (Late st Contact Info) Description 10/29/2024 Telephone General Surgery [address] [place], [place] [phone] [place] [address] [place], [place] [phone] Schedule Surgery Social History Tobacco Use Types Packs/Day Years [...] is lower risk 9 06/23/2022 Data from: https://www.neighborhoodatlas.[facility]/. Last address used for calculation [address] 06/23/2022 Sex and Gender Information Value Date Recorded Sex Assigned at Male 07/19/2023 9:29 AM EDT Legal Sex Male 3:19 PM EST Gender Identity Male 07/19/2023 9:29 AM EDT Sexual Orientation Not on file documented as of this encounter Functional Status * Are you deaf or do you have serious difficulty hearing? Answer Date of Assessment Author No 05/04/2021 3:26 PM LEAHT Diego Schaeffer RN * Are you blind [...] encounter Miscellaneous Notes * Telephone Encounter - MustaphaMahsaAislinn - 10/29/2024 9:40 AM EDT Images from the original note were not included. Pt needs thinner clearance outside provider letter sent via e-fax will await approval before scheduling surgery date. documented in this encounter Plan of Treatment Upcoming Encounters Date Type Department Care Team (Late st Contact Info) Description 01/02/2025 11:00 AM EST Office Visit Orthopaedics [address] [place] [address] Kev Ferrell MD [address] [facility] [place] [address] 2.sw documented as of this encounter Visit Diagnoses Not on filedocumented in this encounter Care Teams Decorating Equipment Setter Relationship Specialty Start Date End Date Stanton Velasco II, MD [address] [place] [address] [place] [address] PCP - General Internal Medicine 04/01/21 Hossein Tran DO [address] [place] [address] Referring Ophthalmology 08/28/16 David Carrillo MD [address] [place] [address] Referring Urology 10/06/16 documented as of this encounter
--- OUTSIDE RECORDS SUMMARY | 2024-11-01 12:44 | XMS_ITS | Encounter Summary ---
Author Organization [facility] Address [address] [place] [address] Care Team Providers Care Sanitarian Inspector Name Role Phone Uli Mcdonald Primary Care Provider UnaHossein Rosas DO Unavailable [phone] David Carrillo MD Unavailable [phone] Rod FATIMA MD, Stanton Payne Primary Care Provider [phone] Source Comments In the event this information is protected by the Federal Confidentiality of Alcohol and Drug AbusePatient Records regulations: The Federal rules restrict any use of the information to criminally investigate or prosecute any alcohol or drug abuse patient.[facility] Reason for Visit * Reason Comments Radiology MRI Encounter Details Date Type Department Care Team (Late st Contact Info) Description 08/10/2020 Radiology Radiology [address] [place] [address] Laila Matthews, RT(R) Radiology MRI Social History [...] N ot on file 01/20/2020 Data from: https://www.neighborhoodatlas.medicine.[facility]/. Last address used for calculation Not on [...] 11:00 AM EST Office Visit Orthopaedics [address] [place] [address] Kev Ferrell MD [address] [place], [place] [address] 2.sw documented as of this encounter Visit Diagnoses Not on filedocumented in this encounter Additional Health Concerns Infection Onset Date Last Indicated Resolved Time COVID-19 Rule-Out 05/04/2021 05/04/2021 05/04/2021 11:12 AM EDT documented as of this encounter Care Teams Sanitarian Inspector Relationship Specialty Start Date End Date Uli Mcdonald [address] [place] [address] PCP - General Family Medicine 08/28/16 03/31/21 Stanton Velasco II, MD [address] [address] PCP - General Internal Medicine 04/01/21 Hossein Tran DO [address] [place] [address] Referring Ophthalmology 08/28/16 David Carrillo MD [address] [place] [address] Referring Urology 10/06/16 documented as of this encounter
--- OUTSIDE RECORDS SUMMARY | 2024-11-01 12:44 | XMS_ITS | Encounter Summary ---
Author Organization [facility] Address [address] [place] [address] Care Team Providers Care Insurance Business Analyst Name Role Phone Hossein Tran DO Unavailable [phone] David Carrillo MD Unavailable [phone] Rod FATIMA MD, Stanton Payne Primary Care Provider [phone] Source Comments In the event this information is protected by the Federal Confidentiality of Alcohol and Drug AbusePatient Records regulations: The Federal rules restrict any use of the information to criminally investigate or prosecute any alcohol or drug abuse patient.[facility] Reason for Visit * Reason Comments Radiology XR Encounter Details Date Type Department Care Team (Late st Contact Info) Description 10/28/2024 Radiology Radiology [address] [facility] [place] [address] Migdalia Patterson RT(R) Radiology XR Social History Tobacco Use Types Packs/Day Years [...] is lower risk 9 06/23/2022 Data from: https://www.neighborhoodatlas.[facility]/. Last address used for calculation [address] [...] documented in this encounter Progress Notes * Migdalia Patterson RT(R) - 10/28/2024 11:14 AM EDT Radiology Service Progress Note PATIENT NAME: Fahad Sotelo DATE OF SERVICE: October 28, 2024 TIME: 11:14 AM PATIENT IDENTITY VERIFICATION COMPLETED USING TWO (2) IDENTIFIERS: Name and Date of confirmedby patient verbally. FALL SCREENING: Has the patient had 2 falls in the last year or 1 fall with injury or currently using an Ambulatory Assistive Device (Walker, Cane, Wheelchair, Crutches, etc.)? No PATIENT GENDER DATA: Assigned male at PATIENT RELEVANT IMPLANT DATA REVIEWED: Yes PATIENT PRESENTS WITH AN IMPLANTABLE OR ATTACHED VOCAL MUSIC INSTRUCTOR: No RADIOLOGY DEPARTMENT: General X-ray: Exam(s) Completed: Upper Extremity X- Ray(s): Clavicle, right PERIPHERAL IV DATA: Not applicable SIGNED BY: RT Grupo(R) October 28, 2024 11:14 AM documented in this encounter Plan of Treatment Upcoming Encounters Date Type Department Care Team (Late st Contact Info) Description 01/02/2025 11:00 AM EST Office Visit Orthopaedics [address] [place] [address] Kev Ferrell MD [address] [place] [address] 2.sw documented as of this encounter Visit Diagnoses Not on filedocumented in this encounter Care Teams Insurance Business Analyst Relationship Specialty Start Date End Date Stanton Velasco II, MD [address] [facility] 110 [place] [address] PCP - General Internal Medicine 04/01/21 Hossein Tran DO [address] [place] [address] Referring Ophthalmology 08/28/16 David Carrillo MD [address] [place] [address] Referring Urology 10/06/16 documented as of this encounter
--- OUTSIDE RECORDS SUMMARY | 2024-11-01 12:44 | XMS_ITS | Clinical Summary ---
Author Organization [facility] Address [address] [place] [address] Care Team Providers Care Linoleum Tile Floor Layer Name Role Phone Stanton Velasco MD Primary Care Provider [phone] Allergies Active Allergy Reactions Criticality Noted Date Comments Bee Pollen Other,Swelling 01/30/2014 Bee Venom Protein (Honey Bee) Unknown,Swelling 12/30/2018 Other Reaction(s): Unknown Other Other 04/12/2021 Sneezing. Oxybutynin Unknown 06/20/2013 Other Reaction(s): Constipation Trospium Unknown Low 03/31/2014 Other Reaction(s): Xerostomia Medications rosuvastatin (Crestor) 40 mg tablet Crestor 40 mg tablet Active isosorbide mononitrate ER (Imdur) 60 mg 24 hr tablet isosorbide mononitrate ER 60 mg tablet,extende d release 24 hr Active metoprolol tartrate (Lopressor) 50 mg tablet every 12 (twelve) hours. Active aspirin 81 mg chewable tablet in the morning. Active cholecalciferol (Vitamin D-3) 25 MCG (1000 units) tablet Take 1,000 Units by mouth in the morning. Active nitroglycerin (Nitrostat) 0.[address] 0.4 mg under the tongue every 5 (five) minutes if needed. Active ondansetron ODT (Zofran-ODT) 4 mg disintegrating tablet Take 4 mg by mouth every 4 (four) hours if needed. 025 Active plecanatide (Trulance) tablet tablet Take 3 mg by mouth in the morning. 023 Active lisinopril 20 mg tabletIndications :Benign hypertensive heart disease without congestive heart failure Take 1 tablet (20 mg) by mouth once daily as directed. 90 tablet 3 Active tenapanor (Ibsrela) 50 mg tablet Take 50 mg by mouth twice a day. Active loratadine (Claritin) 10 mg tablet Take 10 mg by mouth in the morning. 2024 Discontinued(M ed List Cleanup) tiZANidine (Zanaflex) 4 mg tablet Take 1 tablet by mouth every 6 (six) hours during the day. 024 2024 Discontinued( ed List Cleanup) trospium (Sanctura) 20 mg tablet Take 20 mg by mouth twice a day. 2024 Discontinued(M ed List Cleanup) linaCLOtide (Linzess) 290 mcg capsule Take 290 mcg by mouth before breakfast. 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 Cervical stenosis of spine 05/29/2017 Preop testing 05/04/2017 Overview (05/24/2022): Added automatically from request for surgery [id number] Cervical spondylosis with myelopathy 05/04/2017 Overview (05/24/2022): Added automatically from request for surgery [id number] Brachial plexopathy 03/12/2017 Shoulder weakness 03/12/2017 Coronary atherosclerosis 11/20/2011 Dyspnea 11/20/2011 Essential hypertension 11/20/2011 Overview (05/24/2022): Last Assessment & Plan: Assessment: Stable, controlled with RX medication Mixed hyperlipidemia 11/20/2011 CAD (coronary artery disease) 02/13/2004 Overview (05/24/2022): NM in 1997. 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 S/T CABG 2004. 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 manager Encounters Date Type Department Care Team Description 10/30/2024 Orders Only [address] [address] Michelle Alvarado MA Chest pain, unspecified type (Primary Dx); Pre-procedural cardiovascular examination 10/22/2024 11:20 AM EDT Office Visit [address] [address] Caitlyn Alcaraz CNP Other chest pain (Primary Dx); Coronary artery disease involving cocopah coronary artery of cocopah heart without angina pectoris; Hx of CABG; Benign hypertensive heart disease without congestive heart failure; Mixed hyperlipidemia from Last 3 Months Family History Medical History Relation Name Comments Coronary artery disease Other Heart attack Other Stroke Other Relation Name Status Comments Father Mother Other Social History Tobacco Use Types Packs/Day [...] Mass Index 30.85 10/22/2024 11:21 AM EDT Plan of Treatment Upcoming Encounters Date Type Department Care Team (Late st Contact Info) Description 11/25/2024 11:20 AM EDT [facility] Visit [facility] [address] [place] [address] Caitlyn Alcaraz, FARM MARKETER [address] [place] [phone] Health Maintenance Due Date Last Done Comments [...] on patient's age to complete this topic Procedures Procedure Name Priority Date/Time Associated Diagnosis Comments ECG 12 LEAD UNIT PERFORMED Routine 10/22/2024 11:09 AM EDT Other chest pain from Last 3 Months Results * ECG 12 lead unit performed (10/22/2024 11:09 AM EDT) Caitlyn Alcaraz FARM MARKETER ECG ORDERABLES Final Result from Last 3 Months Insurance [employer] MEDICARE Care Teams Linoleum Tile Floor Layer Relationship Specialty Start Date End Date Stanton Velasco MD 112 [facility] 110 [place] [address] PCP - General 05/23/22
--- OUTSIDE RECORDS SUMMARY | 2024-11-01 12:44 | XMS_ITS | Encounter Summary ---
Author Organization [facility] Address [address] [place] [address] Care Team Providers Care Freight Loading Supervisor Name Role Phone Stanton Velasco MD Unavailable [phone] Stanton Velasco MD Primary Care Provider [phone] Emelyn Hall RN Unavailable [phone] Stanton Velasco MD Unavailable [phone] Alvina Sanchez LPN Unavailable Encounter Details [...] often do you attend chur ch or samaritan services? 1 to 4 times per year [...] Recorded Patient Health Questionnaire-2 Score 0 05/23/2023 [facility] - Occupational Stress Questionnaire Answer Date [...] EDT Narrative 06/28/2023 3:31 [place] [address] Nuclear Medicine Report Signed Patient: Chelsea Sotelo MR#: [id number] : 1950 Acct:[id number] Age/Sex: 72 / M ADM Date: 06/27/23 Loc: [place] Attending Dr: Octavio Mcmillan M.D. Ordering Physician: Octavio Mcmlilan M.D. Date of Service: 06/27/23 Procedure(s): NM rosenda perf SPECT rest str Accession Number(s): [id number] cc: STANTON VELASCO ; Octavio Mcmillan M.D. Patient Name: CHELSEA SOTELO MR#: [id number] : 1950 Exam Date: 06/27/2023 Ordering Doctor: [...] Signed By: 06/28/23 1531 DD/ 1530 TD/TT: Polymer Scientist: Procedure Note Radiology, Radiologist, MD - 06/28/2023 [place] [address] Nuclear Medicine Report Signed Patient: Chelsea Sotelo AMR#: [id number] : 9Acct:[id number] Age/Sex: 72 / MADM Date: 06/27/23 Loc: [facility] Attending Dr: Octavio Mcmillan M.D. Ordering Physician: Octavio Mcmillan M.D. Date of Service: 06/27/23 Procedure(s): NM rosenda perf SPECT rest str Accession Number(s): [id number] cc: STANTON VELASCO ; Octavio Mcmillan M.D. Patient Name: CHELSEA SOTELO MR#: [id number] : 1950 Exam Date: 06/27/2023 Ordering Doctor: [...] M.D. Signed By:06/28/23 1531 DD/ 1530 TD/TT: Polymer Scientist: us Generic External Data Provider [facility] Final Result documented in this encounter Visit Diagnoses Not on filedocumented in this encounter Additional Health Concerns Assessment Noted Time PHQ-9 Depression Total Score: 0 05/23/19 24 9:00 AM EDT documented as of this encounter Care Teams Freight Loading Supervisor Relationship Specialty Start Date End Date Stanton Velasco MD [address] [facility] [address] [place] [address] PCP - Devoted 02/12/21 02/12/24 Stanton Velasco MD [address] [facility] [address] [place] [address] PCP - General Internal Medicine 08/18/22 Stanton Velasco MD [address] [facility] [address] [place] [address] PCP - Medical [facility] 02/13/2402/11 Emelyn Hall, RN [address] [place] [address] Clinical [facility] 03/21/24 05/06/24 Alvina Sanchez LPN [address] [facility] [address] [place] [address] 05/06/24 documented as of this encounter
--- OUTSIDE RECORDS SUMMARY | 2024-11-01 12:44 | XMS_ITS | Patient Health Record ---
Author Organization [facility] Address [address] [place] [address] Care Team Providers Care Manager Telemetry Name Role Phone Uli Mcdonald MD Primary Care Provider Unavail able Reason For Referral No Information Plan Of Treatment No Information Insurance Providers Payer Name Payer Address Payer Phone Subscriber Number Group Number Insured Name Patient Relationship to Insured Coverage Start Date Coverage End Date [place] [address] [place] [address] [id number] Fahad Oakes Self - patient is the insured [address] [facility] [address] [place], [place] [id number] Fahad Oakes Self - patient is the insured 5
--- OUTSIDE RECORDS SUMMARY | 2024-11-01 12:44 | XMS_ITS | Encounter Summary ---
Author Organization [facility] Address [address] [place] [address] Care Team Providers Care Work Environment Safety Inspector Name Role Phone Hossein Tran DO Unavailable [phone] David Carrillo MD Unavailable [phone] Rod FATIMA MD, Stanton Payne Primary Care Provider [phone] Source Comments In the event this information [...] Contact Info) Description 12/17/2023 Telephone Urology [address] [place] [address] Dianne Roldan MD [address] [place] [address] Patient Update Social History Tobacco [...] is lower risk 9 06/23/2022 Data from: https://www.neighborhoodatlas.medicine.[facility]/. Last address used for calculation [address] [...] Author No 10/31/2018 3:35 PM EDT Larissa Moerira RN * Because of a physical, mental, [...] 11:00 AM EST Office Visit Orthopaedics [address] [place] [address] Kev Ferrell MD [address] [place] [address] 2.sw documented as of this encounter Visit Diagnoses Not on filedocumented in this encounter Care Teams Work Environment Safety Inspector Relationship Specialty Start Date End Date Stanton Velasco II, MD [address] [facility] [address] [place] [address] PCP - General Internal Medicine 04/01/21 Hossein Tran DO [address] [place] [address] Referring Ophthalmology 08/28/16 David Carrillo MD [address] [place] [address] Referring Urology 10/06/16 documented as of this encounter
--- OUTSIDE RECORDS SUMMARY | 2024-11-01 12:44 | XMS_ITS | Encounter Summary ---
Author Organization [facility] Address [address] [place] [address] Care Team Providers Care Factory Hand Name Role Phone Stanton Velasco MD Primary Care Provider Encounter Details Date Type Department Care Team (Late st Contact Info) Description 10/30/2024 Orders Only [address] [address] Michelle Alvarado MA Chest pain, unspecified type (Primary Dx); Pre-procedural cardiovascular examination Social History Tobacco Use Types Packs/Day Years [...] PM EDT documented as of this encounter Plan of Treatment Upcoming Encounters Date Type Department Care Team (Late st Contact Info) Description 11/25/2024 11:20 AM EDT Office Visit [facility] [address] [place] [address] Caitlyn Alcaraz CNP [address] [place] [address] Scheduled Orders Name Type Priority Associated Diagnoses Orde r Schedule Lexiscan Stress Myocardial Perfusion Imaging Cardiac Services Routine Chest pain, unspecified type Pre-procedural cardiovascular examination Expected: 10/30/2024 (Approximate), Expires: 10/30/2026 documented as of this encounter Visit Diagnoses Diagnosis Chest pain, unspecified type- Primary Pre-procedural cardiovascular examination Pre-operative cardiovascular examination documented in this encounter Care Teams Factory Hand Relationship Specialty Start Date End Date Stanton Velasco MD 112 [facility] 110 [place] [address] PCP - General 05/23/22 documented as of this encounter
--- OUTSIDE RECORDS SUMMARY | 2024-11-01 12:44 | XMS_ITS | Clinical Summary ---
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 Added automatically from request for surgery [id number] Last Assessment & Plan: Assessment: Patient states that he self caths twice daily. Cervical spondylosis 05/04/2017 Overview (08/21/2022): Added automatically from request for surgery [id number] Added automatically from request for surgery [id number] Brachial plexopathy 03/12/2017 Benign essential hypertension 11/20/2011 [...] (08/21/2022): Added automatically from request for surgery [id number] Added automatically from request for surgery [id number] Hyperlipidemia 11/20/2011 05/23/2023 Encounters Date Type Department Care Team Description 10/28/2024 Clinisync Result Encounter [facility] External Department Unsolicited Provider, Generic External Data 10/24/2024 9:45 AM EDT Office Visit [facility] [place] [facility] [address] [place] [address] Stanton Velasco MD Left-sided chest pain (Primary Dx); 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 10/24/2024 Bamboo flowsheet [facility] [place] [facility] [address] [place] [address] Stanton Velasco MD 10/24/2024 Travel 10/21/2024 Abstract [facility] [place] [facility] [address] [place] [address] Stanton Velasco MD 10/20/2024 Clinisync Result Encounter NOMS External Department Unsolicited Stanton Velasco MD 10/17/2024 9:15 AM EDT Office Visit [facility] [place] [facility] [address] [place] [address] Stanton Velasco MD Left-sided chest pain (Primary Dx); 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 [address] [place] [address] Alvina Sanchez LPN 10/09/2024 Patient Outreach [facility] [address] [place] 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 Constipation, unspecified constipation type 08/29/2024 Clinisync Result Encounter NOMS External Department Unsolicited Provider, Generic External Data 08/18/2024 Telephone [facility] [place] [facility] 112 [facility] 110 [place] [address] Nessa Scott PA 08/18/2024 Clinisync Result Encounter NOMS External Department Unsolicited Stanton Velasco MD 08/18/2024 Telephone [facility] [place] [facility] 112 [facility] 110 [place] [address] Stanton Velasco MD xray request from Last [...] any clubs o r organizations such as mandaen groups, unions, fraternal or athletic groups, or [...] Recorded Patient Health Questionnaire-2 Score 0 04/16/2024 [facility] of Occupat ional Health - Occupational [...] place to sleep or slept in a mcfp (including now)? No 10/20/2022 Sex and Gender [...] 16 04/16/2024 2:21 PM EST Oxygen Saturation 94% 10/24/2024 9:33 AM EDT Inhaled Oxygen Concentration - - Weight 98.9 kg (218 lb) 10/24/2024 9:33 AM EDT Height 177.8 cm (5' 10 ) 10/24/2024 9:33 AM EDT Body Mass Index 31.28 10/24/2024 9:33 AM EDT Plan of Treatment Health Maintenance Due [...] Associated Diagnosis Comments XR CLAVICLE 2V RT 10/28/2024 11: 16 AM EDT XR CHEST 2V 10/20/2024 11:05 AM EDT XR CLAVICLE 2V RT 09/19/2024 9:4 9 AM EDT XR SHLDR 4V AP/LUCITA/LAT/OUTLET RT 08/29/2024 8:19 AM EDT XR SHOULDER RT MIN 2V 08/18/2024 4:47 PM EDT COLONOSCOPY DIAGNOSTIC Routine 04/04/2023 1:22 PM EST from Last 3 Months or Most Recently Relevant to Health Maintenance Results * XR CLAVICLE 2V RT (10/28/2024 11:16 AM EDT) Only the most recent of2 resultswithin the time period is included. Anatomical Region Laterality Modality Other 10/28/2024 11:1 6 AM EDT Narrative 10/28/2024 5:06 PM EDT * * [...] the cervical spine sternum are again seen. IMPRESSION: CONTINUED FRACTURE HEALING. Senior Technical Project Manager: PSCB Transcribe Date/Time: Oct 28 2024 5:02P Dictated by : MARIO HODGES MD This examination was interpreted and the report reviewed and electronically signed by: MARIO HODGES MD on Oct 28 2024 5:04PM EST [id number]^AGFA_IDC^SI^ACN Procedure Note Radiology, Radiologist, - 10/28/2024 * * *Final Report* * [...] the cervical spine sternum are again seen. IMPRESSION: CONTINUED FRACTURE HEALING. Senior Technical Project Manager: DEEPIKA Transcribe Date/Time: Oct 28 2024 5:02P Dictated by : MARIO HODGES MD This examination was interpreted and the report reviewed and electronically signed by: MARIO HODGES MD on Oct 28 2024 5:04PM EST [id number]^AGFA_IDC^SI^ACN us Generic External Data Provider [facility] Final Result * XR CHEST 2V (10/20/2024 11:05 AM EDT) Anatomical Region Laterality Modality Other 10/20/2024 11:0 5 AM EDT Narrative 10/20/2024 11:08 AM EDT [address] [address] XRay Report Signed Patient: FAHAD PATEL MR#: [id number] : 1950 Acct:[id number] Age/Sex: 74 / M ADM Date: 10/20/24 Loc: LAB Attending Dr: STANTON VELASCO Ordering Physician: STANTON VELASCO Date of Service: 10/20/24 Procedure(s): XR chest 2V Accession Number(s): [id number] cc: STANTON VELASCO [address] [address] Patient Name: FAHAD PATEL MRN: [id number] date: 1950 Sex: M Assigned Patient Location: LAB Current Patient Location: LAB Accession/Order Number: [id number] Exam Date: 10/20/2024 10:30 Report Date: 10/20/2024 11:05 At the request of: STANTON VELASCO Procedure: XR chest 2V PA AND LATERAL CHEST: CLINICAL HISTORY: Left upper chest pain for the past week. COMPARISON: CT chest 03/06/2024 Median sternotomy wires are again noted. There is continued slight elevation of the right hemidiaphragm. There is no developing consolidation, effusion or pneumothorax. The cardiac, hilar and mediastinal silhouettes are within normal limits. There is no vascular congestion. Old right rib fractures are visualized. Patient has a right shoulder prosthesis. [place] pins are present at the humeral head on the left. Degenerative changes are noted at the spine. XR/XR chest 2V IMPRESSION: NO ACUTE CARDIOPULMONARY ABNORMALITY. Impression dictated by: Nessa Sarabia M.D. 10/20/2024 11:05 AM Dictation Location: [place] [address] Electronically authenticated by: [id number] Y Date: 10/20/2024 11:05 Dictated By: Nessa Sarabia M.D. Signed By: 10/20/24 1108 DD/ 1105 TD/TT: Senior Technical Project Manager: Procedure Note Radiology, Radiologist, - 10/20/2024 [place] [address] XRay Report Signed Patient: FAHAD PATEL AMR#: [id number] : 1950cct:[id number] Age/Sex: 74 / MADM Date: 10/20/24 Loc: LAB Attending Dr: STANTON VELASCO Ordering Physician: STANTON VELASCO Date of Service: 10/20/24 Procedure(s): XR chest 2V Accession Number(s): [id number] cc: STANTON VELASCO [place] [id number] Patient Name: FAHAD PATEL MRN: [id number] date: 1950 Sex: M Assigned Patient Location: LAB Current Patient Location: LAB Accession/Order Number: [id number] Exam Date: 10/20/2024 10:30 Report Date: 10/20/2024 11:05 At the request of: STANTON VELASCO Procedure: XR chest 2V PA AND LATERAL CHEST: CLINICAL HISTORY: Left upper chest pain for the past week. COMPARISON: CT chest 03/06/2024 Median sternotomy wires are again noted. There is continued slightelevation of the right hemidiaphragm. There is no developing consolidation,effusion or pneumothorax. The cardiac, hilar and mediastinal silhouettes are within normal limits. There is no vascular congestion. Old right rib fracturesare visualized. Patient has a right shoulder prosthesis. [place] pins arepresent at the humeral head on the left. Degenerative changes are noted at thespine. XR/XR chest 2V IMPRESSION: NO ACUTE CARDIOPULMONARY ABNORMALITY. Impression dictated by: Nessa Sarabia M.D. 10/20/2024 11:05 AM Dictation Location: [employer] Electronically authenticated by: [id number] Y Date: 1:05 Dictated By: Nessa Sarabia M.D. Signed By:10/20/24 1108 DD/ 1105 TD/TT: Senior Technical Project Manager: Stanton Velasco MD [facility] Final Result * XR SHLDR [...] hardware complication. Healing nondisplaced distal clavicle fracture. Senior Technical Project Manager: DEEPIKA Transcribe Date/Time: Aug 29 2024 9:14A Dictated by : YUAN PATINO DO This examination was interpreted and the report reviewed and electronically signed by: YUAN PATINO DO on Aug 29 2024 9:16AM EST [id number]^AGFA_IDC^SI^ACN Procedure Note Radiology, Radiologist, - 08/29/2024 * [...] hardware complication. Healing nondisplaced distal clavicle fracture. Senior Technical Project Manager: DEEPIKA Transcribe Date/Time: Aug 29 2024 9:14A Dictated by : YUAN PATINO DO This examination was interpreted and the report reviewed and electronically signed by: YUAN PATINO DO on Aug 29 2024 9:16AM EST [id number]^AGFA_IDC^SI^ACN us Generic External Data Provider [facility] Final Result * XR SHOULDER RT MIN 2V (08/18/2024 4:47 PM EDT) Anatomical Region Laterality Modality Other 08/18/2024 4:47 PM EDT Narrative 08/18/2024 4:49 PM EDT [address] [address] XRay Report Signed Patient: FAHAD PATEL MR#: [id number] : 1950 Acct:[id number] Age/Sex: 73 / M ADM Date: 08/18/24 Loc: [facility] Attending Dr: STANTON VELASCO Ordering Physician: STANTON VELASCO Date of Service: 08/18/24 Procedure(s): XR shoulder RT min 2V Accession Number(s): [id number] cc: STANTON VELASCO [place] [address] Patient Name: FAHAD PATLE MRN: [id number] date: 1950 Sex: M Assigned Patient Location: [facility] Current Patient Location: [facility] Accession/Order Number: [id number] Exam Date: 08/18/2024 16:43 Report Date: 08/18/2024 [...] Morgan M.D. 08/18/2024 4:47 PM Dictation Location: [place] [address] Electronically authenticated by: [id number] Y Date: 08/18/2024 16:47 Dictated By: Daniel Morgan D.O. Signed By: 08/18/249 DD/ 46 TD/TT: Senior Technical Project Manager: Procedure Note Radiology, Radiologist, - 08/18/2024 [place] [address] XRay Report Signed Patient: FAHAD PATEL AMR#: [id number] : 1950cct:[id number] Age/Sex: 73 / MADM Date: 08/18/24 Loc: RAD Attending Dr: STANTON VELASCO Ordering Physician: STANTON VELASCO Date of Service: 08/18/24 Procedure(s): XR shoulder RT min 2V Accession Number(s): [id number] cc: STANTON VELASCO [place] [address] Patient Name: FAHAD PATEL MRN: [facility]:[id number] date: 1950 Sex: M Assigned Patient Location: [facility] Current Patient Location: [facility] Accession/Order Number: [id number] Exam Date: 08/18/2024 16:43 Report Date: 08/18/2024 [...] Morgan M.D. 08/18/2024 4:47 PM Dictation Location: [place] [address] Electronically authenticated by: [id number] Y Date: 6:47 Dictated By: Daniel Morgan D.O. Signed By:08/18/24 1649 DD/ 46 TD/TT: Senior Technical Project Manager: us Stanton Velasco MD [facility] Final Result * COLONOSCOPY DIAGNOSTIC (04/04/2023 1:22 PM EST) Anatomical Region Laterality Modality Radiographic Kathie ging us Noms Provider Unallocated MD LENTZ XR PROCEDURES F inal Result from Last 3 Months or Most Recently Relevant to Health Maintenance Insurance [employer] Care Teams Loan Interviewer Mortgage Relationship Specialty Start Date End Date Stanton Velasco MD [address] [place] [address] PCP - General Internal Medicine 08/18/22 Stanton Velasco MD [address] [facility] 110 [place] [address] PCP - Medical [facility] 02/13/2402/11 Alvina Sanchez LPN [address] [address] 05/06/24
--- OUTSIDE RECORDS SUMMARY | 2024-11-01 12:45 | XMS_ITS | Encounter Summary ---
Author Organization [facility] Address [address] [facility] [place] [address] Care Team Providers Care Sewer Name Role Phone Stanton Velasco MD Primary Care Provider [phone] Emelyn Hall RN Unavailable [phone] Stanton Velasco MD Unavailable [phone] Alvina Sanchez LPN Unavailable Encounter Details Date Type Department Care Team (Late st Contact Info) Description 02/18/2024 Abstract [facility] 112 [facility] 110 [place] [address] Stanton Velasco MD 112 [facility] 110 [place], [place] [address] Social History Tobacco Use Types Packs/Day Years [...] any clubs o r organizations such as hinduism groups, unions, fraternal or athletic groups, or [...] Recorded Patient Health Questionnaire-2 Score 0 02/15/2024 [facility] of Occupat ional Health - Occupational [...] documented as of this encounter Care Teams Sewer Relationship Specialty Start Date End Date Stanton Velasco MD [address] [facility] 110 [place] [address] PCP - General Internal Medicine 08/18/22 Stanton Velasco MD [address] [place] [address] [place], [place] [address] PCP - Medical [place] 02/13/2402/11 Emelyn Hall, LEATHA [address] [place] [address] Clinical Advocate Family Medicine 03/21/24 05/06/24 Alvina Sanchez LPN [address] [address] 05/06/24 documented as of this encounter
--- OUTSIDE RECORDS SUMMARY | 2024-11-01 12:45 | XMS_ITS ---
Author Organization [facility] Address [address] [place] [address] Care Team Providers Care Mother Helper Name Role Phone Stanton Velasco MD Primary Care Provider [phone] Stanton Velasco MD Unavailable [phone] Alvina Sanchez LPN Unavailable Chronic Care Management (CCM) Status:Enrolled (Active) Start date:06/29/2022 Enrollment date:06/29/2022 Overview 01/19/23, 10:39 AM - Venitasunday, ARACELI- Patient gives verbal consent to be enrolled in CCM Program and understands there could be a bill for this service. Case Team Name Relationship Phone Alvina Sanchez LPN(Responsible Staff) [phone] Continued Care and Services Coordination
--- OUTSIDE RECORDS SUMMARY | 2024-11-01 12:45 | XMS_ITS | Encounter Summary ---
Author Organization [facility] Address [address] [facility] [address] Care Team Providers Care Cath Lab Nurse Name Role Phone Stanton Velasco MD Unavailable [phone] Stanton Velasco MD Primary Care Provider [phone] Emelyn Hall RN Unavailable [phone] Stanton Velasco MD Unavailable [phone] Alvina Sanchez LPN Unavailable Encounter Details Date Type Department Care Team (Late st Contact Info) Description 09/06/2022 Abstract [facility] [place] [facility] [address] [facility] 110 [place] [address] Stanton Velasco MD [address] [facility] 110 [place], [place] [address] Social History Tobacco Use Types Packs/Day Years [...] on filedocumented in this encounter Care Teams Cath Lab Nurse Relationship Specialty Start Date End Date Stanton Velasco MD [address] [facility] 110 [place], [place] [address] PCP - Devoted 02/12/21 02/12/24 Stanton Velasco MD [address] [facility] 110 [place] [address] PCP - General Internal Medicine 08/18/22 Stanton Velasco MD [address] [facility] 110 [place] [address] PCP - Medical [facility] 02/13/2402/11 Emelyn Hall, RN [address] [place] [address] Clinical [facility]ocate Family Medicine 03/21/24 05/06/24 Alvina Sanchez LPN [address] [facility] 110 [place] [address] 05/06/24 documented as of this encounter
--- OUTSIDE RECORDS SUMMARY | 2024-11-01 12:45 | XMS_ITS | Encounter Summary ---
Author Organization [facility] Address [address] [facility] [place] [address] Care Team Providers Care Barrel Tester Name Role Phone Stanton Velasco MD Unavailable [phone] Stanton Velasco MD Primary Care Provider [phone] Emelyn Hall RN Unavailable [phone] Stanton Velasco MD Unavailable [phone] Alvina Sanchez LPN Unavailable Encounter Details Date Type Department Care Team (Late st Contact Info) Description 05/24/2023 Abstract [facility] [place] [facility] [address] [facility] 110 [place] [address] Stanton Velasco MD [address] [facility] 110 [place], [place] [address] Social History Tobacco Use Types Packs/Day Years [...] How often do you attend chur or quaker services? 1 to 4 times per year 10/20/2022 Do you belong to any clubs o r organizations such as anglican groups, unions, fraternal or athletic groups, or [...] Recorded Patient Health Questionnaire-2 Score 0 05/23/2023 [facility] of Occupat ional [...] documented as of this encounter Care Teams Barrel Tester Relationship Specialty Start Date End Date Stanton Velasco MD [address] [facility] 110 [place] [address] PCP - Devoted 02/12/21 02/12/24 Stanton Velasco MD [address] [place] [address] [place] [address] PCP - General Internal Medicine 08/18/22 Stanton Velasco MD [address] [facility] 110 [place] [address] PCP - Medical [place] 02/13/2402/11 Emelyn Hall, RN [address] [place] [address] Clinical Advocate Family Medicine 03/21/24 05/06/24 Alvina Sanchez LPN 112 [facility] 110 [place] [address] 05/06/24 documented as of this encounter
--- OUTSIDE RECORDS SUMMARY | 2024-11-01 12:45 | XMS_ITS | Encounter Summary ---
Author Organization [facility] Address [address] [facility] [place] [address] Care Team Providers Care Center Director Name Role Phone Stanton Velasco MD Primary Care Provider [phone] Emelyn Hall RN Unavailable [phone] Stanton Velasco MD Unavailable [phone] Alvina Sanchez LPN Unavailable Encounter Details Date Type Department Care Team (Late st Contact Info) Description 02/27/2024 Abstract [facility] [address] [facility] 110 [place] [address] Stanton Velasco MD 112 [facility] 110 [place], [place] [address] Social History Tobacco Use Types Packs/Day Years [...] often do you attend chur ch or evangelical services? 1 to 4 times [...] Recorded Patient Health Questionnaire-2 Score 0 02/15/2024 [facility] of Occupat ional Health [...] place to sleep or slept in a chcf (including now)? No 10/20/2022 Sex and Gender [...] documented as of this encounter Care Teams Center Director Relationship Specialty Start Date End Date Stanton Velasco MD [address] [facility] 110 [place] [address] PCP - General Internal Medicine 08/18/22 Stanton Velasco MD [address] [place] 110 [place], [place] [address] PCP - Medical [place] 02/13/2402/11 Emelyn Hall, LEATHA [address] [place] [address] Clinical [facility]ocate Family Medicine 03/21/24 05/06/24 Alvina Sanchez LPN [address] [address] 05/06/24 documented as of this encounter
--- OUTSIDE RECORDS SUMMARY | 2024-11-01 12:45 | XMS_ITS | Encounter Summary ---
Author Organization [facility] Address [address] [facility] [place] [address] Care Team Providers Care Balance Truing Inspector Name Role Phone Stanton Velasco MD Primary Care Provider [phone] Emelyn Hall RN Unavailable [phone] Stanton Velasco MD Unavailable [phone] Alvina Sanchez LPN Unavailable Encounter Details Date Type Department Care Team (Late st Contact Info) Description 02/27/2024 Abstract [facility] [address] [facility] 110 [place] [address] Stanton Velasco MD 112 [facility] 110 [place], [place] [address] Social History Tobacco Use Types Packs/Day Years [...] any clubs o r organizations such as jain groups, unions, fraternal or athletic groups, or [...] Health Questionnaire-2 Score 0 02/15/2024 [facility] of Occupat ional Health [...] place to sleep or slept in a usp (including now)? No 10/20/2022 Sex and Gender [...] documented as of this encounter Care Teams Balance Truing Inspector Relationship Specialty Start Date End Date Stanton Velasco MD [address] [facility] 110 [place] [address] PCP - General Internal Medicine 08/18/22 Stanton Velasco MD [address] [place] [address] [place], [place] [address] PCP - Medical [place] 02/13/2402/11 Emelyn Hall, LEATHA [address] [place] [address] Clinical [facility] Family [facility] 03/21/24 05/06/24 Alvina Sanchez LPN [address] [address] 05/06/24 documented as of this encounter
--- OUTSIDE RECORDS SUMMARY | 2024-11-01 12:45 | XMS_ITS | Encounter Summary ---
Author Organization [facility] Address [address] [place] [address] Care Team Providers Care Podiatric Medicine Doctor Name Role Phone Stanton Velasco MD Primary Care Provider [phone] Stanton Velasco MD Unavailable [phone] Alvina Sanchez LPN Unavailable Encounter Details Date Type Department Care Team (Late st Contact Info) Description 10/20/2024 Clinisync Result Encounter [facility] External Department Unsolicited Stanton Velasco MD [address] [facility] [address] [place] [address] Social History Tobacco Use Types Packs/Day Years [...] How often do you attend chur or roman catholic services? 1 to 4 times per year 10/20/2022 Do you belong to any clubs o r organizations such as congregation groups, unions, fraternal or athletic groups, or [...] Recorded Patient Health Questionnaire-2 Score 0 04/16/2024 [facility] - Occupational Stress [...] Name Priority Date/Time Associated Diagnosis Comments XR CHEST 2V 10/20/2024 11:05 AM EDT documented in this encounter Results * XR CHEST 2V (10/20/2024 11:05 AM EDT) Anatomical Region Laterality Modality Other 10/20/2024 11:0 5 AM EDT Narrative 10/20/2024 11:08 [place] [address] XRay Report Signed Patient: CHELSEA PATEL MR#: [id number] : 1950 Acct:[id number] Age/Sex: 74 / M ADM Date: 10/20/24 Loc: LAB Attending Dr: STANTON VELASCO Ordering Physician: STANTON VELASCO Date of Service: 10/20/24 Procedure(s): XR chest 2V Accession Number(s): [id number] cc: STANTON VELASCO [place] [id number] Patient Name: CHELSEA PATEL MRN: [id number] date: 1950 Sex: M Assigned Patient Location: LAB Current Patient Location: LAB Accession/Order Number: [id number] Exam Date: 10/20/2024 10:30 Report Date: 10/20/2024 [...] visualized. Patient has a right shoulder prosthesis. Frankenmuth pins are present at the humeral head on the left. Degenerative changes are noted at the spine. XR/XR chest 2V IMPRESSION: NO ACUTE CARDIOPULMONARY ABNORMALITY. Impression dictated by: Nessa Sarabia M.D. 10/20/2024 11:05 AM Dictation Location: [place] [address] Electronically authenticated by: [id number] Y Date: 10/20/2024 11:05 Dictated By: Nessa Sarabia M.D. Signed By: 10/20/24 1108 DD/ 1105 TD/TT: Assistant Professor Of Art: Procedure Note Radiology, Radiologist, MD - 10/20/[address] [address] XRay Report Signed Patient: CHELSEA PATEL AMR#: [id number] : 9Acct:[id number] Age/Sex: 74 / MADM Date: 10/20/24 Loc: LAB Attending Dr: STANTON VELASCO Ordering Physician: STANTON VELASCO Date of Service: 10/20/24 Procedure(s): XR chest 2V Accession Number(s): [id number] cc: STANTON VELASCO [address] [address] Patient Name: CHELSEA PATEL MRN: [id number] date: 1950 Sex: M Assigned Patient Location: LAB Current Patient Location: LAB Accession/Order Number: [id number] Exam Date: 10/20/2024 10:30 Report Date: 10/20/2024 [...] visualized. Patient has a right shoulder prosthesis. Frankenmuth pins arepresent at the humeral head on the left. Degenerative changes are noted at thespine. XR/XR chest 2V IMPRESSION: NO ACUTE CARDIOPULMONARY ABNORMALITY. Impression dictated by: Nessa Sarabia M.D. 10/20/2024 11:05 AM Dictation Location: [place] [address] Electronically authenticated by: [id number] Y Date: 1:05 Dictated By: Nessa Sarabia M.D. Signed By:10/20/24 1108 DD/ 1105 TD/TT: Assistant Professor Of Art: Stanton Velasco MD [facility] Final Result documented in this encounter Visit Diagnoses Not on filedocumented in this encounter Additional Health Concerns Assessment Noted Time PHQ-9 Depression Total Score: 0 05/23/19 24 9:00 AM EDT documented as of this encounter Care Teams Podiatric Medicine Doctor Relationship Specialty Start Date End Date Stanton Velasco MD [address] [address] PCP - General Internal Medicine 08/18/22 Stanton Velasco MD [address] [address] PCP - Medical [place] 02/13/2402/11 Alvina Sanchez LPN [address] [place] [address] 05/06/24 documented as of this encounter
--- OUTSIDE RECORDS SUMMARY | 2024-11-01 12:45 | XMS_ITS | Encounter Summary ---
Author Organization [facility] Address [address] [facility] [place] [address] Care Team Providers Care Certified Public Accountant Name Role Phone Stanton Velasco MD Unavailable [phone] Stanton Velasco MD Primary Care Provider [phone] Emelyn Hall RN Unavailable [phone] Stanton Velasco MD Unavailable [phone] Alvina Sanchez LPN Unavailable Encounter Details Date Type Department Care Team (Late st Contact Info) Description 06/18/2023 Abstract [facility] [place] [facility] 112 [facility] 110 [place] [id number] Stanton Velasco MD 112 [facility] [address] [place], [place] [id number] Social History Tobacco Use Types Packs/Day Years [...] any clubs o r organizations such as worship groups, unions, fraternal or athletic groups, or [...] Patient Health Questionnaire-2 Score 0 05/23/2023 [facility] [...] documented as of this encounter Care Teams Certified Public Accountant Relationship Specialty Start Date End Date Stanton Velasco MD [address] [facility] 110 [place] [address] PCP - Devoted 02/12/21 02/12/24 Stanton Velasco MD [address] [place] [address] [place] [address] PCP - General Internal Medicine 08/18/22 Stanton Velasco MD [address] [facility] [address] [place] [address] PCP - Medical [place] 02/13/2402/11 Emelyn Hall, RN [address] [place] [address] [facility] 03/21/24 05/06/24 Alvina Sanchez LPN 112 [facility] 110 [place] [address] 05/06/24 documented as of this encounter
--- OUTSIDE RECORDS SUMMARY | 2024-11-01 12:45 | XMS_ITS | Encounter Summary ---
Author Organization [facility] Address [address] [place] [address] Care Team Providers Care Telepathist Name Role Phone Stanton Velasco MD Primary Care Provider [phone] Emelyn Hall RN Unavailable [phone] Stanton Velasco MD Unavailable [phone] Alvina Sanchez LPN Unavailable Encounter Details Date Type Department Care Team (Late st Contact Info) Description 03/07/2024 Clinisync Result Encounter [facility] External Department Unsolicited Stanton Velasco MD [address] [place] [address] [place] [address] Social History Tobacco Use Types [...] Recorded Patient Health Questionnaire-2 Score 0 03/07/2024 [facility] - Occupational [...] AM EST Narrative 03/07/2024 6:41 AM EST [address] [address] [address] Scan Report Signed Patient: CHELSEA SOTELO MR#: [id number] : 1950 Acct:[id number] Age/Sex: 73 / M ADM Date: 03/06/24 Loc: CT Attending Dr: STANTON VELASCO Ordering Physician: STANTON VELASCO Date of Service: 03/06/24 Procedure(s): CT chest wo con Accession Number(s): [id number] cc: STANTON VELASCO [address] [address] Patient Name: CHELSEA SOTELO MRN: [id number] date: 1950 Sex: M Assigned Patient Location: CT Current Patient Location: Accession/Order Number: [id number] Exam Date: 03/06/2024 14:12 Report Date: 03/07/2024 [...] Signed By: 03/07/24 0641 DD/ 7 TD/TT: Tight Cooper: Procedure Note Radiology, Radiologist, MD - 03/07/2024 [place] [address] CT Scan Report Signed Patient: CHELSEA SOTELO AMR#: [id number] : 1950cct:[id number] Age/Sex: 73 / MADM Date: 03/06/24 Loc: CT Attending Dr: STANTON VELASCO Ordering Physician: STANTON VELASCO Date of Service: 03/06/24 Procedure(s): CT chest wo con Accession Number(s): [id number] cc: STANTON VELASCO [place] [address] Patient Name: CHELSEA SOTELO MRN: [id number] date: 1950 Sex: M Assigned Patient Location: CT Current Patient Location: Accession/Order Number: [id number] Exam Date: 03/06/2024 14:12 Report Date: 03/07/2024 [...] M.D. Signed By:03/07/24 0641 DD/ 0638 TD/TT: Tight Cooper: Stanton Velasco MD [facility] Final Result documented in this encounter Visit Diagnoses Not on filedocumented in this encounter Additional Health Concerns Assessment Noted Time PHQ-9 Depression Total Score: 0 05/23/19 24 9:00 AM EDT documented as of this encounter Care Teams Telepathist Relationship Specialty Start Date End Date Stanton Velasco MD [address] [facility] [address] [place] [address] PCP - General Internal Medicine 08/18/22 Stanton Velasco MD [address] [facility] [address] [place] [address] PCP - Medical [place] 02/13/2402/11 Emelyn Hall, LEATHA [address] [place] [address] [facility] 03/21/24 05/06/24 Alvina Sanchez LPN [address] [facility] 110 [place] [address] 05/06/24 documented as of this encounter
--- OUTSIDE RECORDS SUMMARY | 2024-11-01 12:45 | XMS_ITS | Clinical Summary ---
Author Organization [facility] Address [address] [place], [place] [address] Care Team Providers Care Mutuel Department Manager Name Role Phone Hossein Tran DO Unavailable [phone] David Carrillo MD Unavailable [phone] Rod FATIMA MD, Stanton Payne Primary Care Provider [phone] Allergies Active Allergy Reactions Criticality Noted Date [...] 50 mg tabletIndications: Coronary artery disease involving creek coronary artery of creek heart without angina pectoris,Essential hypertension,Hyper lipidemia, unspecified [...] (06/20/2017): Added automatically from request for surgery [id number] Assessment & Plan (07/05/2023 10:07 AM EDT): Assessment: Patient states that he self caths twice daily. Assessment & Plan (04/12/2021 11:49 AM EST): Assessment: Patient states that he self caths twice daily. Cervical stenosis of spine 05/29/2017 Cervical spondylosis with myelopathy 05/04/2017 Overview (05/04/2017): Added automatically from request for surgery [id number] Assessment & Plan (07/05/2023 10:05 AM EDT): Assessment: s/p cervical fusion Preop testing 05/04/2017 Overview (05/04/2017): Added automatically from request for surgery [id number] Shoulder weakness 03/12/2017 Brachial plexopathy 03/12/2017 Cervical spinal stenosis 03/12/2017 CAD (coronary artery disease) 02/13/2004 Overview (05/23/2017): HI in 1997. 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 S/T CABG 2004. Follows with resolution analyst Assessment & Plan (10/10/2018 8:02 AM EDT): [...] Encounters Date Type Department Care Team Description 10/29/2024 Telephone General Surgery [address] [place] [address] Chris Garcia MD Schedule Surgery 10/28/2024 11:45 AM EDT Office Visit Orthopaedics [address] [facility] [place] [address] Kev Ferrell MD Closed nondisplaced fracture of acromial end of right clavicle with routine healing, subsequent encounter (Primary Dx) 10/28/2024 11:02 AM EDT - 10/28/2024 11:59 PM EDT Hospital Encounter Radiology [address] [facility] [place] [address] Closed nondisplaced fracture of acromial end of right clavicle with routine healing, subsequent encounter [S42.034D] Discharge Disposition: Home 10/28/2024 Radiology Radiology [address] [facility] [place] [address] Migdalia Patterson RT(R) Radiology XR 10/24/2024 1:00 PM EDT Office Visit General Surgery [address] [place] [address] Chris Garcia MD Unilateral groin pain (Primary Dx); Right inguinal hernia 09/19/2024 10:00 AM EDT Office Visit Orthopaedics [address] [facility] [place] [address] Kev Ferrell MD Closed nondisplaced fracture of acromial end of right clavicle with routine healing, subsequent encounter (Primary Dx) 09/19/2024 9:36 AM EDT - 09/19/2024 11:59 PM EDT Hospital Encounter Radiology [address] [facility] [place] [address] Closed nondisplaced fracture of acromial end of right clavicle, initial encounter [S42.034A] Discharge Disposition: Home 09/19/2024 Radiology Radiology [address] [place] [address] Kirstin Echeverria, RT(R) Radiology XR 08/29/2024 8:15 AM EDT Office Visit Orthopaedics [address] [facility] [place] [address] Kev Ferrell MD Right shoulder pain, unspecified chronicity (Primary Dx); Closed nondisplaced fracture of acromial end of right clavicle, initial encounter 08/29/2024 7:56 AM EDT - 08/29/2024 11:59 PM EDT Hospital Encounter Radiology [address] [place] [address] Right shoulder pain, unspecified chronicity [M25.511] Discharge Disposition: Home 08/29/2024 Radiology Radiology [address] [facility] [place] [address] Leann Morris, RT(R) Radiology XR 08/26/2024 1:30 PM EDT Office Visit Colorectal Surgery [facility] [address] [place] [address] Kristal Jeong APRN.CALL CENTER ASSISTANT Obstructive defecation (HCC) (Primary Dx); High-tone pelvic floor dysfunction; Constipation due to outlet dysfunction 08/26/2024 1:00 PM EDT Procedure Colorectal Surgery [address] [facility] [address] [place] [address] Kristal Jeong APRN.CALL CENTER ASSISTANT Manometry from Last 3 Months Immunizations Immunization [...] is lower risk 9 06/23/2022 Data from: https://www.neighborhoodatlas.medicine.[facility].edu/. Last address used for calculation [...] 11:00 AM EST Office Visit Orthopaedics [address] [place] [address] Kev Ferrell MD [address] [place] [place] [address] 2.sw Health Maintenance Due Date Last Done Comments [...] Sigmoidoscopy Discontinued Medical Devices Implanted Type Area Box Liner Device Identifier Shelf Expiration Date Model / Serial / Lot Pcn-Nf-V-Kind Implant - [id number] Implanted:Qty: 1 on 05/29/2017 at [facility] Implant N/A: Spine - Cervical [employer] 1102.3011 / / Description:11mm in line pito te Nez-Cj-X-Kind Implant - [id number] Implanted:Qty: 1 on 05/29/2017 at [facility] Implant N/A: Spine - Cervical [employer] 1102.7000 / / Description:hinge plate Prolong Rev Shoulder Prosthesis Cup 36mm +3mm Retentive Thick Implanted:Qty: 1 on 05/02/2021 at [facility] Implant Right: Bone - Shoulder [employer] 02/22/2025 [id number] / / [id number] Stem Hum 83mm 14mm Cmprh Por - [id number] Implanted:Qty: 1 on 05/02/2021 at [facility] Implant Right: Bone - Shoulder [employer] 10/15/2030 [id number] / / [id number] Rev Shoulder Prosthesis Body 40mm +5mm Thick +0mm Taper Offset Implanted:Qty: 1 on 05/02/2021 at [facility] Implant Right: Bone - Shoulder [employer] 01/11/2029 [id number] / / [id number] Insert Triathlon 7 10mm Tibial Bearing Condylar Stabilize Sterile Knee - [id number] Implanted: 019 at [facility] (Quantity not on file) Joint - Knee Right: Bone - Knee [employer] 12/26/2022 5531-G-710 -E / / [id number] Baseplate Triathlon Tritanium 7 Tibial Knee - [id number] Implanted: 019 at [facility] (Quantity not on file) Joint - Knee Right: Bone - Knee [employer] 07/23/2023 5536-B-700 / / [id number] Component Tritanium 38mm Metal 11mm Patellar Asymmetric Knee - [id number] Implanted: 019 at [facility] (Quantity not on file) Joint - Knee Right: Bone - Knee [employer] 06/06/2023 5552-L-381 / / [id number] Component Triathlon 7 Pa Femoral Cruciate Retain Bead Knee Right - [id number] Implanted: 019 at [facility] (Quantity not on file) Joint - Knee Right: Bone - Knee [employer] 07/27/2023 5517-F-702 / / [id number] Component Comprehensive Versa-Dial 36mm Standard Glenoid Glenosphere - [id number] Implanted:Qty: 1 on 05/02/2021 at [facility] Joint - Shoulder Right: Bone - Shoulder [employer] 03/03/2031 [id number] / / [id number] Lead Interstim 1.27mm 3mm Space Straight 33cm Neurostimulator Inline - [id number] Implanted:Qty: 1 on 07/06/2017 at [facility] Lead N/A: Spine - Lumbar [employer] 11/05/2019 [id number] / / [id number] Lead Interstim 1.27mm 3mm Space Straight 33cm Neurostimulator Inline - [id number] Implanted:Qty: 1 on 07/20/2017 at [facility] Lead N/A: Spine - Sacrum [employer] [id number] / / [id number] Plate Canopy 9mm Bone Shelf Inline Spine - [id number] Implanted:Qty: 2 on 05/29/2017 at [facility] Plate N/A: Spine - Cervical [employer] 1102.3009 / / Baseplate Comprehensive 25mm Mini Glenoid Taper Adapter Reverse Shoulder - [id number] Implanted:Qty: 1 on 05/02/2021 at [facility] Plate Right: Bone - Shoulder [employer] 01/26/2030 [id number] / / [id number] Screw 2.2mm 6mm Bone Self Drilling - [id number] Implanted:Qty: 9 on 05/29/2017 at [facility] Screw N/A: Spine - Cervical [employer] 136.406 / / Screw 2.2mm Relieve Slfdrl 5mm - [id number] Implanted:Qty: 9 on 05/29/2017 at [facility] Screw N/A: Spine - Cervical [employer] 136.405 / / Screw Comprehensive 4.75mm 3.5mm Titanium 15mm Bone Fix Angle Lock - [id number] Implanted:Qty: 1 on 05/02/2021 at [facility] Screw Right: Bone - Shoulder [employer] 03/20/2031 [id number] / / [id number] Screw Comprehensive 3.5mm 30mm Bone Central Hexagon Plant Clerk 6.5mm Shoulder - [id number] Implanted:Qty: 1 on 05/02/2021 at [facility] Screw Right: Bone - Shoulder [employer] 04/01/2031 [id number] / / [id number] Screw Comprehensive 4.75mm 3.5mm Hexagon 20mm Bone Variable Angle Nonlock - [id number] Implanted:Qty: 1 on 05/02/2021 at [facility] Screw Right: Bone - Shoulder [employer] 02/22/2031 [id number] / / [id number] Screw Comprehensive 3.5mm Hexagon 20mm Bone Fix Angle Lock Reverse 4.75mm - [id number] Implanted:Qty: 1 on 05/02/2021 at [facility] Screw Right: Bone - Shoulder [employer] 03/09/2031 [id number] / / [id number] Screw Comprehensive 3.5mm Hexagon 30mm Bone Fix Angle Lock Reverse 4.75mm - [id number] Implanted:Qty: 1 on 05/02/2021 at [facility] Screw Right: Bone - Shoulder [employer] 03/07/2031 [id number] / / [id number] Procedures Procedure Name Priority Date/Time Associated Diagnosis Comments XR CLAVICLE 2V RIGHT Routine 10/28/2024 11:16 AM EDT Closed nondisplaced fracture of acromial end of right clavicle with routine healing, subsequent encounter XR CLAVICLE 2V RIGHT Routine 09/19/2024 9:49 AM EDT Closed nondisplaced fracture of acromial end of right clavicle, initial encounter XR SHOULDER ORTHO 4V AP/TRUE AP/LAT/OUTLET RT Routine 08/29/2024 8:19 AM EDT Right shoulder pain, unspecified chronicity ADULT [place] ANORECTAL MANOMETRY Routine 08/26/2024 Constipation due to outlet dysfunction XR OUTSIDE CD DICOM IMPORT 08/18/2024 COMPREHENSIVE METABOLIC PANEL Routine 07/05/2023 10:19 AM EDT 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 stricture Overactive bladder from Last 3 Months or Most Recently Relevant to Health Maintenance Results * XR CLAVICLE 2V RIGHT (10/28/2024 11:16 AM EDT) Anatomical Region Laterality Modality Clavicle Other 10/28/2024 11:1 6 AM EDT Impressions 10/28/2024 5:06 PM EDT IMPRESSION: CONTINUED FRACTURE HEALING. Log Roper: DEEPIKA Transcribe Date/Time: Oct 28 2024 5:02P [...] sternum are again seen. Procedure Note Provider, [facility] - 10/28/2024 * * *Final Report* * [...] again seen. IMPRESSION IMPRESSION: CONTINUED FRACTURE HEALING. Log Roper: DEEPIKA Transcribe Date/Time: Oct 28 2024 5:02P Dictated by : MARIO HODGES MD This examination was interpreted and the report reviewed and electronically signed by: MARIO HODGES MD on Oct 28 2024 5:04PM EST Nehemiah STAHLA Final Resul t * XR CLAVICLE 2V RIGHT (09/19/2024 9:49 AM EDT) Anatomical Region Laterality Modality Clavicle Other 09/19/2024 9:49 AM EDT Impressions 09/19/2024 10:52 AM EDT IMPRESSION: SUBACUTE DISTAL RIGHT CLAVICLE FRACTURE WITH EARLY HEALING. Log Roper: DEEPIKA Transcribe Date/Time: Sep 19 2024 10:47A [...] sternotomy are again seen. Procedure Note Provider, [facility] - 09/19/2024 * * *Final Report* * [...] DISTAL RIGHT CLAVICLE FRACTURE WITH EARLY HEALING. Log Roper: DEEPIKA Transcribe Date/Time: Sep 19 2024 10:47A Dictated by : MARIO HODGES MD This examination was interpreted and the report reviewed and electronically signed by: MARIO HODGES MD on Sep 19 2024 10:50AM EST Nehemiah Garcia PA-C RAD-PAMA Final Resul t * XR SHOULDER ORTHO 4V AP/TRUE AP/LAT/OUTLET RIGHT (08/29/2024 8:19 AM EDT) Anatomical Region Laterality Modality Shoulder Other 08/29/2024 8:19 AM EDT Impressions 08/29/2024 9:18 AM EDT IMPRESSION: Reverse RIGHT shoulder arthroplasty without hardware complication. Healing nondisplaced distal clavicle fracture. Log Roper: DEEPIKA Transcribe Date/Time: Aug 29 2024 9:14A [...] RIGHT lung is clear. Procedure Note Provider, [facility] - 08/29/2024 * * *Final Report* * [...] hardware complication. Healing nondisplaced distal clavicle fracture. Log Roper: PSCB Transcribe Date/Time: Aug 29 2024 9:14A Dictated by : YUAN PATINO DO This examination was interpreted and the report reviewed and electronically signed by: YUAN PATINO DO on Aug 29 2024 9:16AM EST Kev Ferrell MD RAD-PAMA Final Result * ADULT [place] ANORECTAL MANOMETRY (08/26/2024) Anatomical Region Laterality Modality [...] test results and treatment plan. Kristal Jeong APRN.CALL CENTER ASSISTANT us Kristal Jeong APRN.CALL CENTER ASSISTANT DIGESTIVE DISEASE Sandra l Result * OT-XR SHOULDER RT MIN 2V IMPORT (08/18/2024) Anatomical Region Laterality Modality Other 08/18/2024 Narrative 08/30/2024 5:59 PM EDT Images were obtained outside of [facility] Procedure Note Provider, [facility] - 08/30/2024 Images were obtained outside of [facility] Ccf Provider RADIOLOGY Final Result * (ABNORMAL) COMPREHENSIVE METABOLIC PANEL (07/05/2023 10:19 AM EDT) Protein, Total 6.5 6.3 - 8.0 g/dL 07/05/2023 4:56 PM EDT [facility] Albumin 4.1 3.9 - 4.9 g/dL 07/05/2023 4:56 PM EDT [facility] Calcium, Total 9.2 8.5 - 10.2 mg/dL 07/05/2023 4:56 PM EDT [facility] Bilirubin, Total 0.8 0.2 - 1.3 mg/dL 07/05/2023 4:56 PM EDT [facility] Alkaline Phosphatase 66 38 - 113 U/L 07/05/2023 4:56 PM EDT [facility] AST 14 14 - 40 U/L 07/05/2023 4:56 PM EDT [facility] ALT 18 10 - 54 U/L 07/05/2023 4:56 PM EDT [facility] Glucose 119(H) 74 - 99 mg/dL 07/05/2023 4:56 PM EDT [facility] Comment: The [place] Diabetes Association (ADA) provides guidance for cutoff [...] Standards of Medical Care in Diabetes 2016, [place] Diabetes Association. Diabetes Care. 2016.39(Suppl 1). BUN 16 9 - 24 mg/dL 07/05/2023 4:56 PM EDT [facility] Creatinine 0.74 0.73 - 1.22 mg/dL 07/05/2023 4:56 PM EDT [facility] Sodium 142 136 - 144 mmol/L 07/05/2023 4:56 PM EDT [facility] Potassium 4.1 3.7 - 5.1 mmol/L 07/05/2023 4:56 PM EDT [facility] Chloride 105 97 - 105 mmol/L 07/05/2023 4:56 PM EDT [facility] CO2 28 22 - 30 mmol/L 07/05/2023 4:56 PM EDT [facility] Anion Gap 9 9 - 18 mmol/L 07/05/2023 4:56 PM EDT [facility] Estimated Glomerular Filtration Rate 95 >=60 mL/min/1.7 3m 07/05/2023 4:56 PM EDT [facility] Comment:Estimated Glomerular Filtration Rate (eGFR) [...] us Dianne Roldan MD LABORATORY Final Result [facility] [address] [place] [address], from Last 3 Months or Most Recently Relevant to Health Maintenance Insurance [employer] [id number] MMO MEDADVANTAGE HMO Advance Directives Documents on File Type Date Recorded Patient Teacher Vocational Training Expl anation Advance Directive(s) 05/23/2017 1:09 PM Care Teams Mutuel Department Manager Relationship Specialty Start Date End Date Stanton Velasco II, MD [address] [place] [address] PCP - General Internal Medicine 04/01/21 Hossein Tran DO [address] [place] [id number] Referring Ophthalmology 08/28/16 David Carrillo MD [address] [place] [address] Referring Urology 10/06/16
--- OUTSIDE RECORDS SUMMARY | 2024-11-01 12:45 | XMS_ITS | Encounter Summary ---
Author Organization [facility] Address [address] [facility] [place] [address] Care Team Providers Care Rn Assessment Name Role Phone Stanton Velasco MD Unavailable [phone] Stanton Velasco MD Primary Care Provider [phone] Emelyn Hall RN Unavailable [phone] Stanton Velasco MD Unavailable [phone] Alvina Sanchez LPN Unavailable Encounter Details Date Type Department Care Team (Late st Contact Info) Description 08/15/2022 Abstract [facility] [address] [facility] [address] [place] [phone] Toya Santos MD [address] [facility] [address] [place] [address] Social History Tobacco Use Types [...] on filedocumented in this encounter Care Teams Rn Assessment Relationship Specialty Start Date End Date Stanton Velasco MD [address] [facility] [address] [place] [address] PCP - Devoted 02/12/21 02/12/24 Stanton Velasco MD [address] [facility] [address] [place] [address] PCP - General Internal Medicine 08/18/22 Stanton Velasco MD [address] [facility] [address] [place] [address] PCP - Medical [facility] 02/13/2402/11 Emelyn Hall, RN [address] [place] [address] [facility] 03/21/24 05/06/24 Alvina Sanchez LPN [address] [place] [address] [place] [address] 05/06/24 documented as of this encounter
--- OUTSIDE RECORDS SUMMARY | 2024-11-01 12:45 | XMS_ITS | Encounter Summary ---
Author Organization [facility] Address [address] [facility] [place] [address] Care Team Providers Care Plumbing Assembler Installer Name Role Phone Stanton Velasco MD Unavailable [phone] Stanton Velasco MD Primary Care Provider [phone] Emelyn Hall RN Unavailable [phone] Stanton Velasco MD Unavailable [phone] Alvina Sanchez LPN Unavailable Encounter Details Date Type Department Care Team (Late st Contact Info) Description 01/01/2023 Abstract [facility] [place] [facility] [address] [facility] 110 [place] [phone] Stanton Velasco MD [address] [facility] [address] [place], [place] [id number] Social History Tobacco Use Types Packs/Day Years [...] How often do you attend chur or synagogue services? 1 to 4 times per year [...] and heating? Not hard at all 10/20/2022 [facility] of Occupat ional Health - Occupational [...] on filedocumented in this encounter Care Teams Plumbing Assembler Installer Relationship Specialty Start Date End Date Stanton Velasco MD [address] [facility] [address] [place] [address] PCP - Devoted 02/12/21 02/12/24 Stanton Velasco MD [address] [facility] [address] [place] [address] PCP - General Internal Medicine 08/18/22 Stanton Velasco MD [address] [facility] [address] [place] [address] PCP - Medical [place] 02/13/2402/11 Emelyn Hlal, LEATHA [address] [place] [address] Clinical [facility] 03/21/24 05/06/24 Alvina Sanchez LPN [address] [facility] 110 [place] [address] 05/06/24 documented as of this encounter
--- OUTSIDE RECORDS SUMMARY | 2024-11-01 12:45 | XMS_ITS | Encounter Summary ---
Author Organization [facility] Address [address] [facility] [place] [address] Care Team Providers Care Winding Lathe Operator Name Role Phone Stanton Velasco MD Primary Care Provider [phone] Stanton Velasco MD Unavailable [phone] Alvina Sanchez LPN Unavailable Encounter Details Date Type Department Care Team (Late st Contact Info) Description 10/21/2024 Abstract [facility] [place] [address] [facility] 110 [place] [address] Stanton Velasco MD 112 [facility] 110 [place] [address] Social History Tobacco Use Types Packs/Day Years [...] Recorded Patient Health Questionnaire-2 Score 0 04/16/2024 [facility] of Occupat ional Health - Occupational [...] documented as of this encounter Care Teams Winding Lathe Operator Relationship Specialty Start Date End Date Stanton Velasco MD [address] [address] PCP - General Internal Medicine 08/18/22 Stanton Velasco MD [address] [facility] [address] [place] [address] PCP - Medical [place] 02/13/2402/11 Alvina Sanchez LPN [address] [address] 05/06/24 documented as of this encounter
--- OUTSIDE RECORDS SUMMARY | 2024-11-01 12:45 | XMS_ITS | Encounter Summary ---
Author Organization [facility] Address [address] [facility] [place] [address] Care Team Providers Care Photo Technician Name Role Phone Stanton Velasco MD Unavailable [phone] Stanton Velasco MD Primary Care Provider [phone] Emelyn Hall RN Unavailable [phone] Stanton Velasco MD Unavailable [phone] Alvina Sanchez LPN Unavailable Encounter Details Date Type Department Care Team (Late st Contact Info) Description 12/20/2023 Abstract [facility] [place] [facility] 112 [facility] 110 [place] [phone] Stanton Velasco MD 112 [facility] 110 [place], [place] [id number] Social History Tobacco Use Types Packs/Day Years [...] often do you attend chur ch or bahai services? 1 to 4 times per year 10/20/2022 Do you belong to any clubs o r organizations such as baptism groups, unions, fraternal or athletic groups, or [...] Recorded Patient Health Questionnaire-2 Score 0 05/23/2023 [facility] [place] of Occupat ional Health - Occupational Stress [...] documented as of this encounter Care Teams Photo Technician Relationship Specialty Start Date End Date Stanton Velasco MD [address] [facility] [address] [place] [address] PCP - Devoted 02/12/21 02/12/24 Stanton Velasco MD [address] [facility] 110 [place] [address] PCP - General Internal Medicine 08/18/22 Stanton Velasco MD [address] [place] [address] [place] [address] PCP - Medical [place] 02/13/2402/11 Emelyn Hall, RN [address] [place], [place] [address] [facility] 03/21/24 05/06/24 Alvina Sanchez LPN [address] [address] 05/06/24 documented as of this encounter
--- OUTSIDE RECORDS SUMMARY | 2024-11-01 12:45 | XMS_ITS | Encounter Summary ---
Author Organization [facility] Address [address] [facility] [place] [address] Care Team Providers Care Soaking Room Operator Name Role Phone Stanton Velasco MD Unavailable [phone] Stanton Velasco MD Primary Care Provider [phone] Emelyn Hall RN Unavailable [phone] Stanton Velasco MD Unavailable [phone] Alivna Sanchez LPN Unavailable Encounter Details Date Type Department Care Team (Late st Contact Info) Description 04/04/2023 Orders Only [facility] [place] [address] [place] [address] Unallocated, Noms Provider, [address] [place], [place] [address] Social History Tobacco Use Types Packs/Day Years [...] and heating? Not hard at all 10/20/2022 [facility] of Occupat ional Health [...] place to sleep or slept in a alf (including now)? No 10/20/2022 Sex and Gender [...] MD JUNIORG XR PROCEDURES F inal Result documented in this encounter Visit Diagnoses Not on filedocumented in this encounter Care Teams Soaking Room Operator Relationship Specialty Start Date End Date Stanton Velasco MD [address] [facility] 110 [place] [address] PCP - Devoted 02/12/21 02/12/24 Stanton Velasco MD [address] [place] [address] PCP - General Internal Medicine 08/18/22 Stanton Velasco MD [address] [facility] 110 [place] [address] PCP - Medical [place] 02/13/2402/11 Emelyn Hall, RN [address] [place], [place] [address] [facility] 03/21/24 05/06/24 Alvina Sanchez LPN [address] [address] 05/06/24 documented as of this encounter
--- OUTSIDE RECORDS SUMMARY | 2024-11-01 12:45 | XMS_ITS | Encounter Summary ---
Author Organization [facility] Address [address] [place] [address] Care Team Providers Care Park Warden Name Role Phone Stanton Velasco MD Primary Care Provider [phone] Stanton Velasco MD Unavailable [phone] Alvina Sanchez LPN Unavailable Encounter Details Date Type Department Care Team (Latest Contact Info) Description 10/24/2024 Travel Social History Tobacco Use Types Packs/Day [...] often do you attend chur ch or nondenominational services? 1 to 4 times per year 10/20/2022 Do you belong to any clubs o r organizations such as alevism groups, unions, fraternal or athletic groups, or [...] Patient Health Questionnaire-2 Score 0 04/16/2024 [facility] of Occupat ional [...] as of this encounter Care Teams Park Warden Relationship Specialty Start Date End Date Stanton Velasco MD [address] [facility] 110 [place] [address] PCP - General Internal Medicine 08/18/22 Stanton Velasco MD [address] [facility] 110 [place] [address] PCP - Medical [place] 02/13/2402/11 Alvina Sanchez LPN [address] [facility] 110 [place] [address] 05/06/24 documented as of this encounter
--- OUTSIDE RECORDS SUMMARY | 2024-11-01 12:45 | XMS_ITS | Encounter Summary ---
Author Organization [facility] Address [address] [facility] [place] [address] Care Team Providers Care Red Hat Linux Administrator Name Role Phone Stanton Velasco MD Unavailable [phone] Stanton Velasco MD Primary Care Provider [phone] Emelyn Hall RN Unavailable [phone] Stanton Velasco MD Unavailable [phone] Alvina Sanchez LPN Unavailable Encounter Details Date Type Department Care Team (Late st Contact Info) Description 04/26/2023 Abstract [facility] [place] [facility] [address] [facility] 110 [place] [id number] Stanton Velasco MD [address] [facility] 110 [place], [place] [id number] Social History Tobacco Use Types Packs/Day Years [...] How often do you attend chur or pentecostal services? 1 to 4 times per year 10/20/2022 Do you belong to any clubs o r organizations such as pentecostal groups, unions, fraternal or athletic groups, or [...] and heating? Not hard at all 10/20/2022 [facility] of Occupat ional Health - [...] on filedocumented in this encounter Care Teams Red Hat Linux Administrator Relationship Specialty Start Date End Date Stanton Velasco MD [address] [facility] 110 [place] [address] PCP - Devoted 02/12/21 02/12/24 Stanton Velasco MD [address] [facility] 110 [place] [address] PCP - General Internal Medicine 08/18/22 Stanton Velasco MD [address] [facility] 110 [place] [address] PCP - Medical [place] MA 02/13/2402/11 Emelyn Hall, LEATHA [address] [place] [address] [facility] 03/21/24 05/06/24 Alvina Sanchez LPN 112 [facility] 110 [place] [address] 05/06/24 documented as of this encounter
--- OUTSIDE RECORDS SUMMARY | 2024-11-01 12:45 | XMS_ITS | Encounter Summary ---
Author Organization [facility] Address [address] [place] [address] Care Team Providers Care Emr Implementation Specialist Name Role Phone Stanton Velasco MD Primary Care Provider [phone] Stanton Velasco MD Unavailable [phone] Alvina Sanchez LPN Unavailable Encounter Details Date Type Department Care Team (Late st Contact Info) Description 10/28/2024 Clinisync Result Encounter [facility] External [...] often do you attend chur ch or jew services? 1 to 4 times per year 10/20/2022 Do you belong to any clubs o r organizations such as episcopal groups, unions, fraternal or athletic groups, or [...] [facility] of Occupat ional [...] 2V RT 10/28/2024 11: 16 AM EDT documented in this encounter Results * XR CLAVICLE 2V RT (10/28/2024 11:16 AM EDT) Anatomical Region Laterality Modality Other 10/28/2024 11:1 [...] are again seen. IMPRESSION: CONTINUED FRACTURE HEALING. Chemical Processing Technician: DEEPIKA Transcribe Date/Time: Oct 28 2024 5:02P Dictated by : MARIO HODGES MD This examination was interpreted and the report reviewed and electronically signed by: MARIO HODGES MD on Oct 28 2024 5:04PM EST [id number]^SI^ACN Procedure Note Radiology, Radiologist, - 10/28/2024 * [...] are again seen. IMPRESSION: CONTINUED FRACTURE HEALING. Chemical Processing Technician: Curiously Transcribe Date/Time: Oct 28 2024 5:02P Dictated by : MARIO HODGES MD This examination was interpreted and the report reviewed and electronically signed by: MARIO HODGES MD on Oct 28 2024 5:04PM EST [id number]^SI^ACN us Generic External Data Provider [facility] Final Result documented in this encounter Visit Diagnoses Not on filedocumented in this encounter Additional Health Concerns Assessment Noted Time PHQ-9 Depression Total Score: 0 05/23/19 24 9:00 AM EDT documented as of this encounter Care Teams Emr Implementation Specialist Relationship Specialty Start Date End Date Stanton Velasco MD [address] [facility] 110 [place] [address] PCP - General Internal Medicine 08/18/22 Stanton Velasco MD [address] [facility] 110 [place] [address] PCP - Medical [facility] 02/13/2402/11 Alvina Sanchez LPN [address] [facility] 110 [place] [address] 05/06/24 documented as of this encounter
--- OUTSIDE RECORDS SUMMARY | 2024-11-01 12:45 | XMS_ITS | Encounter Summary ---
Author Organization [facility] Address [address] [facility] [place] [address] Care Team Providers Care Senior Grants Officer Name Role Phone Stanton Velasco MD Primary Care Provider [phone] Stanton Velasco MD Unavailable Alvina Sanchez LPN Unavailable Encounter Details Date Type Department Care Team (Late st Contact Info) Description 10/24/2024 Bamboo flowsheet [facility] [address] [facility] 110 [place] [address] Stanton Velasco MD [address] [facility] 110 [place], [place] [id number] Social History Tobacco Use Types Packs/Day Years [...] Recorded Patient Health Questionnaire-2 Score 0 04/16/2024 [facility] of Occupat ional Health - [...] documented as of this encounter Care Teams Senior Grants Officer Relationship Specialty Start Date End Date Stanton Velasco MD [address] [address] PCP - General Internal Medicine 08/18/22 Stanton Velasco MD [address] [facility] 110 [place] [address] PCP - Medical [facility] 02/13/2402/11 Alvina Sanchez LPN [address] [address] 05/06/24 documented as of this encounter
--- OUTSIDE RECORDS SUMMARY | 2024-11-01 12:45 | XMS_ITS | Encounter Summary ---
Author Organization [facility] Address [address] [facility] [place] [address] Care Team Providers Care Sheet Sewer Name Role Phone Stanton Velasco MD Unavailable [phone] Stanton Velasco MD Primary Care Provider [phone] Emelyn Hall RN Unavailable [phone] Stanton Velasco MD Unavailable [phone] Alvina Sanchez LPN Unavailable Encounter Details Date Type Department Care Team (Late st Contact Info) Description 10/03/2023 Abstract [facility] [place] [facility] [address] [facility] 110 [place] [id number] Stanton Velasco MD [address] [facility] 110 [place], [place] [id number] Social History Tobacco Use Types Packs/Day Years [...] How often do you attend chur or religion services? 1 to 4 times [...] documented as of this encounter Care Teams Sheet Sewer Relationship Specialty Start Date End Date Stanton Velasco MD [address] [facility] 110 [place] [address] PCP - Devoted 02/12/21 02/12/24 Stanton Velasco MD [address] [place] [address] [place] [address] PCP - General Internal Medicine 08/18/22 Stanton Velasco MD [address] [facility] 110 [place] [address] PCP - Medical [place] MA 02/13/2402/11 Emelyn Hall, RN [address] [place] [address] [facility] 03/21/24 05/06/24 Alvina Sanchez LPN 112 [facility] 110 [place] [address] 05/06/24 documented as of this encounter
--- OUTSIDE RECORDS SUMMARY | 2024-11-01 12:45 | XMS_ITS | Encounter Summary ---
Author Organization [facility] Address [address] [facility] [place] [address] Care Team Providers Care Van Driver Name Role Phone Stanton Velasco MD Unavailable [phone] Stanton Velasco MD Primary Care Provider [phone] Emelyn Hall RN Unavailable [phone] Stanton Velasco MD Unavailable [phone] Alvina Sanchez LPN Unavailable Encounter Details Date Type Department Care Team (Late st Contact Info) Description 10/24/2023 Abstract [facility] [place] [facility] 112 [facility] 110 [place] [phone] Stanton Velasco MD 112 [facility] 110 [place], [place] [id number] Social History Tobacco Use Types Packs/Day Years [...] often do you attend chur ch or confucianist services? 1 to 4 times per year 10/20/2022 Do you belong to any clubs o r organizations such as holiness groups, unions, fraternal or athletic groups, or [...] Recorded Patient Health Questionnaire-2 Score 0 05/23/2023 [facility] of Occupat ional Health - Occupational Stress [...] documented as of this encounter Care Teams Van Driver Relationship Specialty Start Date End Date Stanton Velasco MD [address] [facility] 110 [place] [address] PCP - Devoted 02/12/21 02/12/24 Stanton Velasco MD [address] [facility] 110 [place] [address] PCP - General Internal Medicine 08/18/22 Stanton Velasco MD [address] [facility] 110 [place] [address] PCP - Medical [place] 02/13/2402/11 Emelyn Hall, RN [address] [place], [place] [id number] [facility] 03/21/24 05/06/24 Alvina Snachez LPN [address] [address] 05/06/24 documented as of this encounter
--- OUTSIDE RECORDS SUMMARY | 2024-11-01 12:45 | XMS_ITS | CCD ---
Author Organization [facility] CliniSynm Care Team Providers Care Physical Therapist Aide Name Role Phone BOZENA DOMINGO Admitting Unavailable BOZENA DOMINGO Attending Unavailable ALONZO CENTENO Referring Unavailable ALONZO CENTENO Primary Care Unavailable Hossein Tran Unavailable David Carrillo Unavailable Stanton Velasco II Primary Care Provider KUSHAL Velasco Attending Provider Hossein Tran Unavailable David Carrillo Unavailable Stanton Velasco II Primary Care Provider [phone] Hossein Tran Unavailable David Carrillo Unavailable Stanton Velasco II Primary Care Provider DR TRACIE TELLO Attending Unavailable ROSALINDA ., DR HODGES Admitting Unavailable ROD, DR RAMIREZ Primary Care Unavailable PITA ., NICKIE WHITTAKER Consulting UnavailALEXANDRE Powers Consulting Unavailable KIM PARK Consulting Unavailable TARYN, DR WATSON ROSADO Primary Care Unavaila BOZENA Packer Admitting Unavailable BOZENA DOMINGO Attending Unavailable ROD, DR RAMIREZ Primary Care Unavailable BOZENA DOMINGO Attending Unavailable BOZENA DOMINGO Consulting Unavailable BOZENA DOMINGO Admitting Unavailable MISC, DR FORDE Admitting Unavailable ROD, DR RAMIREZ Primary Care Unavailable MISC, DR FORDE Attending Unavailable MISC, DR FORDE Consulting Unavailable CARMEN BURGOS Consulting Unavailable ROD, DR RAMIREZ Attending Unavailable ROD, DR RAMIREZ Consulting Unavailable ROD, DR RAMIREZ Primary Care Unavailable ROD, DR RAMIREZ Admitting Unavailable ROD, DR RAMIREZ Admitting Unavailable ROD, DR RAMIREZ Attending Unavailable ROD, DR RAMIREZ Consulting Unavailable ROD, DR RAMIREZ Primary Care Unavailable ANEUDY, DR GERSON Rajan Consulting Unavailable ELSAMANTHAHAWDominique, DR CUNNINGHAM Attending Unavailable ELTAHAWDominique, DR CUNNINGHAM Consulting Unavailable HIPOLITO, DR CUNNINGHAM Admitting Unavailable ROD, DR RAMIREZ Primary Care Unavailable Watson Centeno Primary Care Provider Unava ilable Marc ARAYA, Hossein Durham Unavailable Rod FATIMA MD, Daniel B Primary Care Provider David Carrillo MD Unavailable Rod FATIMA MD, Daniel B Primary Care Provider Watson Centeno Primary Care Provider Unava ilable Stanton Velasco MD Unavailable Stanton Velasco MD Primary Care Provider [phone] Suzanna Macdonald Attending Unavailable Suzanna Macdonald Admitting Unavailable LOUIE SALOMON Attending Unavailable STANTON VELASCO II Primary Care Unavailable STANTON VELASCO II Primary Care Unavailable LOUIE SALOMON Attending Unavailable STANTON VELASCO II Primary Care Unavailable LOUIE SALOMON Attending Unavailable LOUIE SALOMON Admitting Unavailable Emelyn Hall RN Unavailable STANTON VELASCO Primary Care Physician Stanton Velasco MD Unavailable Sanchez WAX PATTERN REPAIRER, Alvina Unavailable Unavailable MoForest lino AUna Attending Unavailable Mouchli Mohamad AUna Attending Unavailable Mouchli Mohamad AUna Attending Unavailable Mouchli, Mohamad AUna Admitting Unavailable MouchliArmaanamad AUna Attending Unavailable Sanchez WAX PATTERN REPAIRER, Alvina Unavailable STANTON VELASCO Attending Unavailable CHRISTINA SCOTT Attending Unavailable STANTON VELASCO Attending Unavailable SUKUMAR MACK Attending Unavailable STANTON VELASCO Attending Unavailable STANTON VELASCO Attending Unavailable STANTON VELASCO Attending Unavailable TMAANNA JOSHUA Attending Unavailable BOZENA DOMINGO Attending Unavailable NEHEMIAH GILBERT Referring Unavailable VELASCO II, STANTON B Primary Care Unavailable VELASCO II, STANTON B Primary Care Unavailable FERRELL, KEV Attending Unavailable VELASCO II, STANTON B Primary Care Unavailable FERRELL, KEV Referring Unavailable VELASCO II, STANTON B Primary Care Unavailable FERRELL, KEV Attending Unavailable VELASCO II, STANTON B Primary Care Unavailable FOREST SOLORIO Referring Unavailable KRISTAL HARE Attending Unavailable KRISTAL HARE Attending Unavailable MOSARAHLI, FOREST Referring Unavailable VELASCO II, STANTON B Primary Care Unavailable VELASCO II, STANTON B Primary Care Unavailable CHRIS CLEMENTS Attending Unavailable VASAVADA, FADY P Referring Unavailable VELASCO II, STANTON B Primary Care Unavailable CHRIS CLEMENTS M Attending Unavailable VELASCO II, STANTON B Primary Care Unavailable VASAVADA, FADY P Attending Unavailable VELASCO II, STANTON B Primary Care Unavailable VASAVADA, FADY P Attending Unavailable OFELIA, NEHEMIAH Referring Unavailable VELASCO II, STANTON B Primary Care Unavailable VELASCO II, STANTON B Primary Care Unavailable FERRELLKEV Attending Unavailable VELSACO II, STANTON B Primary Care Unavailable CHRIS CLEMENTS Attending Unavailable Allergies Allergy Classification Reported Allergen(s) Allergy Type Date of Onset Reaction(s) Facility Bee pollen (2 sources) Bee pollen Drug Allergy 4 Swelling [facility] Work Phone: oxybutynin (2 sources) oxybutynin Drug Allergy 4 Other: See Comments [facility] Trospium (2 sources) Trospium Drug Allergy 5 Other: See Comments [facility] (1 source) Bee/Wasp/Ant venom; Translations: [Bee/Wasp Stings] Propensity to adverse reactions (disorder) 2 [facility] Repository (20 sources) Bee pollen; Translations: [BEE POLLEN] Drug Allergy 4 Swelling [facility] Work Phone: (20 sources) Seasonal allergy; Translations: [SEASONAL ALLERGIES] Allergy to substance 2 Other: See Comments [facility] (20 sources) Bee Sting; Translations: [BEE STING] Allergy to substance 9 Swelling [facility] (20 sources) oxybutynin; Translations: [OXYBUTYNIN] Drug Allergy 4 Other: See Comments [facility] (20 sources) Trospium; Translations: [TROSPIUM] Drug Allergy 5 Other: See Comments [facility] (20 sources) Venom-Honey Bee; Translations: [VENOM-HONEY BEE] Drug Allergy 9 Other: See Comments, Swelling [facility] (20 sources) Bee pollen Allergy to substance 4 Unknown, Swelling [facility] Work Phone: (20 sources) Honey bee venom Allergy to substance 3 [facility] (20 sources) Trospium Drug Allergy 5 [facility] (20 sources) Other; Translations: [OTHER] Allergy to substance 2 Other [facility] (1 source) No Known Medication Allergies; Translations: [No Known Medication Allergies] Propensity to adverse reactions (disorder) [facility] Repository (1 source) BEE VENOM PROTEIN (HONEY BEE); Translations: [BEE VENOM PROTEIN (HONEY BEE)] Propensity to adverse reactions to drug (disorder) 9 [facility] Repository Medications Current Medications Medication Drug Class(es) Dates Sig (Normalized) Sig (Original) acetaminophen 500 mg oral tablet (20 sources) Start: 05-03-2021 take 2 tablets by mouth every six hours as needed acetaminophen (TYLENOL) 500 mg tablet Take 2 tablets by mouth every 6 hours as needed for pain. 05/03/2021 Active Comment on above: Take 2 tablets by mo ut every 6 hours as needed for pain. [...] after procedure TAKE 4 TABLETS BY MO [facility] 1 (ONE) HOUR BEFORE procedure then TAKE [...] Comment on above: [facility] aspirin 81 mg chewable tablet (20 sources) Platelet Aggregation Inhibitor, Nonsteroidal Anti-inflammatory Drug Start: 11-01-2018 take 81 mg by mouth twice daily Aspirin Active 81 MG PO Twice daily November 01, 2018 11:26am Start: 10-31-2018 take 1 tablet by lang twice daily aspirin, enteric coated (ASPIRIN, ENTERIC COATED) 81 mg EC tablet Take 1 tablet by mouth twice daily. 84 tablet 10/31/2018 Active aspirin (Aspir-L ow) 81 MG EC tablet 1 (one) time each day at the same time. Active Comment on above: Take 1 tablet by lang twice daily. bisacodyl 10 mg rectal suppository (1 source) Stimulant Laxative Start: 9 Bisacodyl Active 10 MG NM Daily 0 November 06, 2018 4:02pm cephalexin [...] mg oral tablet (20 sources) Vitamin D take 1 tablet by mouth once daily cholecalciferol (VITAMIN D3) 1,000 unit tab tablet Take 1,000 Units by mouth once daily. Active Comment on above: Take 1,000 Units [...] Comment on above: Take 1 capsule by [facility] twice daily as needed for constipation. fluticasone [...] once daily. lactulose 667 mg/ml oral solution (11 sources) Osmotic Laxative Start: 09-02-19 take 15 [...] 08/14/2024 Active linaclotide 0.29 mg oral capsule (13 sources) Guanylate Cyclase-C Agonist Start: 04-03-2024 End: 10-24-2024 take 1 capsule by mouth before mealtime linaCLOtide (Linzess) 290 MCG capsule Indications: Chronic idiopathic constipation Take 1 capsule (290 mcg) by mouth in the morning for 16 days. Take before meals. Do not crush or chew.. 16 capsule 04/03/2024 10/24/2024 Discontinued (Other) lisinopril 20 mg oral tablet (20 sources) Angiotensin Converting Enzyme Inhibitor Start: 11-07-2017 take 1 tablet by mouth once daily lisinopril (ZESTRIL, PRINIVIL) 20 mg tablet Take 20 mg by mouth once daily. 3 11/07/2017 Active Comment on above: Take 20 mg by mouth once daily. loratadine 10 mg oral tablet (19 sources) Start: 03-07-2024 End: 03-07-2025 take 1 [...] mg tablet Indications: Coronary artery disease involving grindstone coronary artery of grindstone heart without angina pectoris , Essential hypertension [...] above: Take 1 capsule by mo uth once daily. nitroglycerin 0.4 mg sublingual tablet (20 sources) Nitrate Vasodilator Start: 10-17-2024 End: 10-17-2025 nitroglycerin (Nitrostat) 0.4 MG SL tablet Indications: 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 Place 1 tablet (0.4 mg) under the tongue every 5 (five) minutes if needed for chest pain May repeat every 5 minutes for up to 3 doses. 100 tablet 11 10/17/2024 10/17/2025 Active End: 10-17-2024 nitroglycerin sublingual (NI TROQUICK) 0.4 mg SL tablet Active ondansetron 4 mg disintegrating oral tablet (17 sources) Serotonin-3 Receptor Antagonist Start: 03-31-2024 take [...] 5 MG PO Every 6 hours 10 November 06, 2018 4:07pm Comment on above: Take 1-2 tablets by mouth every 4-6 hours as needed for pain plecanatide 3 mg oral tablet (20 sources) Start: 023 End: 024 take 1 tablet by mouth once daily plecanatide (TRULANCE) 3 mg tablet Take 1 tablet by mouth once daily. 12/13/2022 Active polyethylene glycol 3350 07693 mg powder for oral solution (20 sources) Osmotic Laxative Start: 019 Polyethylene Glycol 3350 (Miralax) 17 gram Powder In Packet Active 17 GM PO Daily November 06, 2018 9:59am polyethylene glycol 3350 275980 mg / potassium chloride 2970 mg / sodium bicarbonate 6740 mg / sodium chloride 5860 mg / sodium sulfate 37500 mg powder for oral solution (2 sources) [...] 12/24/2023 Active tenapanor 50 mg oral tablet (7 sources) take 1 tablet by mouth in [...] on above: Take 1 capsule by mo [facility] once daily. Problems Active Problems Problem Classification Problem Date Documented Da te Episodic/Chronic Abdominal pain (6 sources) Inguinal pain; Translations: [Lower abdominal pain, unspecified] Onset: 06-27-2024 04-11-2024 Episodic Allergic reactions (20 sources) Atopic dermatitis; Translations: [Atopic dermatitis, unspecified] Onset: 06-26-2022 06-26-2022 Chronic Chronic kidney disease (20 sources) Chronic kidney disease stage 2; Translations: [Chronic kidney disease, stage 2 (mild)] Onset: 08-21-2022 08-21-2022 Chronic Chronic obstructive pulmonary disease and bronchiectasis (19 sources) Chronic obstructive lung disease; Translations: [Chronic obstructive pulmonary disease, unspecified] Onset: 04-02-2024 04-02-2024 Chronic Complications of surgical procedures or medical care (2 sources) Stricture of male urethra following procedure; Translations: [Postprocedural urethral stricture, male, unspecified] Onset: 12-12-2023 12-12-2023 Episodic Coronary atherosclerosis and other heart disease (20 sources) Coronary arteriosclerosis; Translations: [Atherosclerotic heart disease of grindstone coronary artery without angina pectoris] Onset: 02-13-2004 [...] 11-20-2011 10-30-2018 Chronic Fracture of upper limb (8 sources) Closed fracture of acromial end of clavicle; Translations: [Nondisplaced fracture of lateral end of right clavicle, initial encounter for closed fracture] Onset: 09-19-2024 08-29-2024 Episodic Genitourinary symptoms and ill-defined conditions [...] Onset: 08-26-2024 08-26-2024 Episodic Nonspecific chest pain (8 sources) Left sided chest pain; Translations: [Chest pain, unspecified] Onset: 10-22-2024 10-17-2024 Episodic Nutritional deficiencies (20 sources) Vitamin [...] Problem Date Documented Date Episodic/Chronic Abdominal hernia (3 sources) Inguinal hernia; Translations: [Unilateral inguinal hernia, [...] sources) Long-term current use of anticoagulant; Translations: [long term care phlebotomist (current) use of anticoagulants] Onset: 05-23-2023 05-23-2023 [...] caused by tuberculosis or sexually transmitted disease) (20 sources) 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 He denies significant tenderness at the fracture site, reporting only mild discomfort upon palpation. Additionally, Fahad reports an inguinal hernia causing pain radiating to his leg, particularly when standing for prolonged periods. He is awaiting surgical intervention by Dr. Clements. HISTORY OF PRESENT ILLNESS: PAIN EVALUATION 10/28/2024 1119 Pain Level: 3 Pain Location: Shoulder-Right Description: Sore Duration Amount of Time: 2 Duration Units: Months Frequency: Intermittent Intervention/Comfort measure: Reposition;Relaxation; Positioning;Medication The patient's past medical history, surgical history, [...] bridging of bone margins. Patient reports mild, intermittent aching without significant pain or functional limitation; no new trauma or falls reported. - Advised patient to avoid heavy lifting and strenuous physical activity involving the affected shoulder. - Recommended continuation of multivitamin supplementation, including adequate vitamin C intake, to support bone healing. - Plan to obtain repeat X-ray in 2-3 months to continue to monitor healing progress. Nehemiah Gilbert PA-C I have personally performed [...] Ferrell MD October 28, 2024 11:52 AM Allergies As of Date: 10/28/2024 Noted Allergy Reaction BEE POLLEN 01/30/2014 7 [...] Comments Comments: Other Reaction(s): Xerostomia Date Reviewed: 10/28/2024 Reviewed by: Vivien Cross MA - Fully Assessed Reason for Visit: Follow Up [171] Primary Visit Diagnosis:Closed nondisplaced fracture of acromial end of right clavicle with routine healing, subsequent encounter [H17.658Z] Order(s):XR CLAVICLE 2V RIGHT [[id number]] Order #: [id number] FUTURE Prescriptions as of 10/28/2024 - trospium (SANCTURA) 20 mg tablet Take 1 tablet by mouth two times a day. - plecanatide (TRULANCE) 3 mg tablet Take 1 tablet by mouth once daily. - nitroglycerin subl (more content not included)... Normal [facility] No Panel InformationOrdered By: Radiologist Radiology on 10-28-2024 [facility] [employer] Work Phone: XR CLAVICLE 2V RTon 10-29-19 25 * * *Final Report* * * [...] are again seen. IMPRESSION: CONTINUED FRACTURE HEALING. Cook Jelly: DEEPIKA Transcribe Date/Time: Oct 28 2024 5:02P Dictated by : MARIO HODGES MD This examination was interpreted and the report reviewed and electronically signed by: MARIO HODGES MD on Oct 28 2024 5:04PM EST [id number]^SI^ ACN [facility], Radiologist, - 10/28/2024 * * *Final [...] are again seen. IMPRESSION: CONTINUED FRACTURE HEALING. Cook Jelly: PSCB Transcribe Date/Time: Oct 28 2024 5:02P Dictated by : MARIO HODGES MD This examination was interpreted and the report reviewed and electronically signed by: MARIO HODGES MD on Oct 28 2024 5:04PM EST [id number]^SI^ ACN [facility] XR CLAVICLE 2V RT * * [...] are again seen. IMPRESSION: CONTINUED FRACTURE HEALING. Cook Jelly: DEEPIKA Transcribe Date/Time: Oct 28 2024 5:02P Dictated by : MARIO HODGES MD This examination was interpreted and the report reviewed and electronically signed by: MARIO HODGES MD on Oct 28 2024 5:04PM EST [id number] [facility] Radiology Study observation (narrative) [facility] XR Clavicle - right 2 Viewso n 10-28-2024 IMPRESSION: CONTINUE D FRACTURE HEALING. Cook Jelly: [facility] Transcribe Date/Time: Oct 28 2024 5:02P Dictated by : MARIO HODGES MD This examination was interpreted and the report reviewed and electronically signed by: MARIO HODGES MD on Oct 28 2024 5:04PM EST DIVISION OF RADIOLOGY * * *Final [...] the cervical spine sternum are again seen. DIVISION OF RADIOLOGY Provider, [facility] - 10/28/2024 * * *Final Report* * [...] again seen. IMPRESSION IMPRESSION: CONTINUED FRACTURE HEALING. Cook Jelly: DEEPIKA Transcribe Date/Time: Oct 28 2024 5:02P Dictated by : MARIO HODGES MD This examination was interpreted and the report reviewed and electronically signed by: MARIO HODGES MD on Oct 28 2024 5:04PM [facility] Radiology Study observation (narrative) [facility] CNOVon 10-24-2024 CNOV Office Visit (GENSAV ) FAHAD SOTELO ([id number]) 1950 M Date Time Provider Department 10/24/24 1:00 PM CHRIS CLEMENTS GENSAV During your visit today, we recorded the following information about you: Chris Clements MD 10/24/2024 1:29 PM Signed returns with lots of painin right groin and entire anterior thigh exam w valsalva reproduces hernia and pain rec right inguinal hernia repair with mesh brangeodwpid huawtpsa Allergies As of Date: 10/24/2024 Noted Allergy Reaction BEE POLLEN 01/30/2014 7 [...] Comments Comments: Other Reaction(s): Xerostomia Date Reviewed: 10/24/2024 Reviewed by: Sandrine Hays RN - Fully Assessed Reason for Visit: Follow Up [171] Cmt: Rt inguinal hernia Primary Visit Diagnosis:Unilateral groin pain [R10.30] Other Visit Diagnosis:Right inguinal hernia [K40.90] Prescriptions as of 10/24/2024 - trospium (SANCTURA) 20 mg tablet Take [...] once daily. Problem List As Of Date 10/24/2024 Noted Resolved Shoulder weakness [R29.898] 03/12/2017 Brachial [...] shoulder*04/12/2021 Encounter Status:Closed by CHRIS CLEMENTS on 10/24/24 Normal [facility] Office Visiton 10-22-2024 Follow-up visit [id number] Fahad Sotelo 1950 M Date Provider Department Center 10/22/2024 166-BOZENA DOMINGO [facility] Family History Problem Relation Age of Onset Coronary artery disease Other Stroke Other Heart attack Other Family Status - Relation Status Age at Mother Father Other Level of Service:08310 NM OFFICE/OUTPATIENT ESTABLISHED LOW MDM 20 MIN Reason for Visit and Comments: Coronary Artery Disease [187] Follow-up [331501] - Patient is here today for an early appointment for complaints of chest pain Chest Pain [134483] - Constant Left sided chest pain. Denies any other symptoms. Patient had x-ray on Sunday Hypertension [078896] Hyperlipidemia [182] Chronic ischemic heart disease [Other] Fall [284635] - 1 month ago fell on right shoulder and broke clavicle Normal [facility] XR CHEST 2Von 10-20-2024 [facility] [address] [place] [address] XRay Report Signed Patient: FAHAD SOTELO MR#: [id number] : 1950 Acct:[id number] Age/Sex: 74 / M ADM Date: 10/20/24 Loc: LAB Attending Dr: STANTON VELASCO Ordering Physician: STANTON VELASCO Date of Service: 10/20/24 Procedure(s): XR chest 2V Accession Number(s): [id number] cc: STANTON VELASCO [address] [address] Patient Name: FAHAD SOTELO MRN: [facility]:[id number] date: 1950 Sex: M Assigned Patient Location: LAB Current Patient Location: LAB Accession/Order Number: [id number] Exam Date: 10/20/2024 10:30 Report Date: 10/20/2024 [...] visualized. Patient has a right shoulder prosthesis. [place] pins are present at the humeral head on the left. Degenerative changes are noted at the spine. XR/XR chest 2V IMPRESSION: NO ACUTE CARDIOPULMONARY ABNORMALITY. Impression dictated by: Christina Sarabia M.D. 10/20/2024 11:05 AM Dictation Location: [place] [address] Electronically authenticated by: [id number] Y Date: 10/20/2024 11:05 Dictated By: Christina Sarabia M.D. Signed By: 10/20/24 1108 DD/ 1105 TD/TT: Cook Jelly: [facility] Radiology, Radiologist, MD - 10/20/[address] [address] XRay Report Signed Patient: FAHAD SOTELO MR#: [id number] : 1950 Acct:[id number] Age/Sex: 74 / M ADM Date: 10/20/24 Loc: LAB Attending Dr: STANTON VELASCO Ordering Physician: STANTON VELASCO Date of Service: 10/20/24 Procedure(s): XR chest 2V Accession Number(s): [id number] cc: STANTON VELASCO [place] [id number] Patient Name: FAHAD SOTELO MRN: [id number] date: 1950 Sex: M Assigned Patient Location: LAB Current Patient Location: LAB Accession/Order Number: [id number] Exam Date: 10/20/2024 10:30 Report Date: 10/20/2024 [...] visualized. Patient has a right shoulder prosthesis. [place] pins are present at the humeral head on the left. Degenerative changes are noted at the spine. XR/XR chest 2V IMPRESSION: NO ACUTE CARDIOPULMONARY ABNORMALITY. Impression dictated by: Christina Sarabia M.D. 10/20/2024 11:05 AM Dictation Location: [place] [address] Electronically authenticated by: [id number] Y Date: 10/20/2024 11:05 Dictated By: Christina Saarbia M.D. Signed By: 10/20/24 1108 DD/ 110 TD/TT: Cook Jelly: [facility] [employer] Radiology Study observation (narrative) [facility] XR CHEST [facility]: [facility] Work Phone: Pablo 09-19-2024 CNOV Office Visit (LOORRM ) FAHAD SOTELO ([id number]) 1950 M Date Time Provider Department 09/19/24 [...] subsequent encounter [S42.034D] Order(s):XR CLAVICLE 2V RIGHT [[id number]] Order #: [id number] FUTURE Prescriptions as of 09/19/2024 - trospium [...] knee [M17.11] (more content not included)... Normal [facility] No Panel InformationOrdered By: Radiologist Radiology on 09-19-2024 [facility] [employer] Work Phone: No Panel Informationon 09-19 Radiology Study observation (narrative) [facility] XR CLAVICLE 2V RTon 09-20-19 25 * [...] DISTAL RIGHT CLAVICLE FRACTURE WITH EARLY HEALING. Cook Jelly: DEEPIKA Transcribe Date/Time: Sep 19 2024 10:47A Dictated by : MARIO HODGES MD This examination was interpreted and the report reviewed and electronically signed by: MARIO HODGES MD on Sep 19 2024 10:50AM EST [id number]^SI^ ACN [facility] Radiology, Radiologist, MD - 09/19/2024 * * [...] DISTAL RIGHT CLAVICLE FRACTURE WITH EARLY HEALING. Cook Jelly: DEEPIKA Transcribe Date/Time: Sep 19 2024 10:47A Dictated by : MAROI HODGES MD This examination was interpreted and the report reviewed and electronically signed by: MARIO HODGES MD on Sep 19 2024 10:50AM EST [id number]^SI^ ACN [facility] XR CLAVICLE 2V RT * * [...] DISTAL RIGHT CLAVICLE FRACTURE WITH EARLY HEALING. Cook Jelly: DEEPIKA Transcribe Date/Time: Sep 19 2024 10:47A Dictated by : MARIO HODGES MD This examination was interpreted and the report reviewed and electronically signed by: MARIO HODGES MD on Sep 19 2024 10:50AM EST [id number] [facility] XR Clavicle - right 2 Viewso 09-19-2024 IMPRESSION: SUBACUTE DISTAL RIGHT CLAVICLE FRACTURE WITH EARLY HEALING. Cook Jelly: [facility] Transcribe Date/Time: Sep 19 2024 10:47A [...] are again seen. DIVISION OF RADIOLOGY Provider, [facility] - 09/19/2024 * * *Final Report* * [...] DISTAL RIGHT CLAVICLE FRACTURE WITH EARLY HEALING. Cook Jelly: DEEPIKA Transcribe Date/Time: Sep 19 2024 10:47A Dictated by : MARIO HODGES MD This examination was interpreted and the report reviewed and electronically signed by: MARIO HODGES MD on Sep 19 2024 10:50AM EST [facility] CNOVon 08-29-2024 CNOV Office Visit (LOORRM ) FAHAD SOTELO ([id number]) 1950 M Date Time Provider Department 08/29/24 [...] Diagnosis Date CAD (coronary artery disease) 2004 SC in 1997. Had a stent placed in [...] Order(s):XR SHOULDER ORTHO 4V AP/TRUE AP/LAT/OUTLET RIGHT [1192351] Order #: [id number] FUTURE SLING, ARM [[id number]] Order #: [id number] Prescriptions as of 08/29/2024 - trospium (SANCTURA) [...] - met (more content not included)... Normal [facility] Panel InformationOrdered By: Radiologist Radiology on 08-29-2024 [facility] Work Phone: XR SHLDR 4V AP/LUCITA/LAT/OUTLE T [...] hardware complication. Healing nondisplaced distal clavicle fracture. Cook Jelly: DEEPIKA Transcribe Date/Time: Aug 29 2024 9:14A Dictated by : YUAN PATINO, DO This examination was interpreted and the report reviewed and electronically signed by: YUAN PATINO DO on Aug 29 2024 9:16AM EST [id number]^SI^ ACN [facility] Radiology, Radiologist, - 08/29/2024 * [...] hardware complication. Healing nondisplaced distal clavicle fracture. Cook Jelly: PSCKerry Transcribe Date/Time: Aug 29 2024 9:14A Dictated by : YUAN PATINO DO This examination was interpreted and the report reviewed and electronically signed by: YUAN PATINO DO on Aug 29 2024 9:16AM EST [id number]^SI^ ACN [facility] XR SHLDR 4V AP/LUCITA/LAT/OUTLET RT * * [...] hardware complication. Healing nondisplaced distal clavicle fracture. Cook Jelly: DEEPIKA Transcribe Date/Time: Aug 29 2024 9:14A Dictated by : YUAN PATINO DO This examination was interpreted and the report reviewed and electronically signed by: YUAN PATINO DO on Aug 29 2024 9:16AM EST [id number] Normal [facility] Radiology Study observation (narrative) [facility] XR Shoulder - right 4 Viewso n 08-29-2024 IMPRESSION: Reverse RIGHT shoulder arthroplasty without hardware complication. Healing nondisplaced distal clavicle fracture. Cook Jelly: DEEPIKA Transcribe Date/Time: Aug 29 2024 9:14A Dictated by : YUAN PATINO DO This examination was interpreted and the report reviewed and electronically signed by: YUNA PATINO DO on Aug 29 2024 9:16AM [...] lung is clear. DIVISION OF RADIOLOGY Provider, [facility] Karlie [facility] - 08/29/2024 * * *Final Report* * [...] hardware complication. Healing nondisplaced distal clavicle fracture. Cook Jelly: DEEPIKA Transcribe Date/Time: Aug 29 2024 9:14A Dictated by : YUAN PATINO DO This examination was interpreted and the report reviewed and electronically signed by: YUAN PATINO DO on Aug 29 2024 9:16AM EST [facility] Radiology Study observation (narrative) [facility] ANORECTAL MANOMET Julissa 08-26-2024 I have [...] test results and treatment plan. 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 Had a stent placed in 2008 c/b coronary artery dissection and that lead to a CABG x1 in 2008 Former smoker quit 1997 Hyperlipidemia Hypertension Intermittent self-catheterization of bladder Urge incontinence of urine PAST SURGICAL HISTORY Procedure Laterality Date ARTHRP KNE CONDYLEANDPLATU MEDIALANDLAT COMPARTMENTS 10/30/2018 right CABG (1) VEIN GRAFT AND ARTERIAL GRAFT 2008 coronary dissection during stent placement CHEMODNRVTJ [facility] INNERVATED FACIAL NRV UNIL CYSTO.PANENDO 11/24/2021 Dr. Dye CYSTO.PANENDO 05/31/2022 CYSTO.PANENDO N/A 06/04/2023 CYSTOSCOPY 03/29/2017 Dr. Fady [facility] LEFT HEART CATH,PERCUTANEOUS 05/11/2003 Cardiac cath, [...] done by Nava Back LPN, [facility] Current Outpatient Medications Medication Sig Dispense [...] visit. AL (more content not included)... Normal [facility] XR SHOULDER RT MIN 2Von 07-[address] [address] XRay Report Signed Patient: FAHAD SOTELO MR#: [id number] : 1950 Acct:[id number] Age/Sex: 73 / M ADM Date: 08/18/24 Loc: RAD Attending Dr: STANTON VELASCO Ordering Physician: STANTON VELASCO Date of Service: 08/18/24 Procedure(s): XR shoulder RT min 2V Accession Number(s): [id number] cc: STANTON VELASCO The [address] [address] Patient Name: FAHAD SOTELO MRN: [facility]:[id number] date: 1950 Sex: M Assigned Patient Location: RAD Current Patient Location: RAD Accession/Order Number: [id number] Exam Date: 08/18/2024 16:43 Report Date: 08/18/2024 [...] Morgan M.D. 08/18/2024 4:47 PM Dictation Location: [place] [address] Electronically authenticated by: [id number] Y Date: 08/18/2024 16:47 Dictated By: Daniel Morgan D.O. Signed By: 08/18/241648 DD/ 46 TD/TT: Cook Jelly: [facility] Radiology, Radiologist, MD - 08/18/[address] [address] XRay Report Signed Patient: FAHAD SOTELO MR#: [id number] : 1950 Acct:[id number] Age/Sex: 73 / M ADM Date: 08/18/24 Loc: [facility] Attending Dr: STANTON VELASCO Ordering Physician: STANTON VELASCO Date of Service: 08/18/24 Procedure(s): XR shoulder RT min 2V Accession Number(s): [id number] cc: STANTON VELASCO [address] [address] Patient Name: FAHAD SOTELO MRN: [facility]:[id number] date: 1950 Sex: M Assigned Patient Location: RAD Current Patient Location: RAD Accession/Order Number: [id number] Exam Date: 08/18/2024 16:43 Report Date: 08/18/2024 [...] Morgan M.D. 08/18/2024 4:47 PM Dictation Location: [place] [address] Electronically authenticated by: [id number] Y Date: 08/18/2024 16:47 Dictated By: Daniel Morgan D.O. Signed By: 08/18/241648 DD/ 46 TD/TT: Cook Jelly: [facility] Healthcare Radiology Study observation (narrative) [facility] Healthcare XR SHOULDER RT MIN 2VOrdered By: Radiologist Radiology on 08-18-2024 [facility] Healthcare Work Phone: Orders Onlyon 07-14-2024 Orders Only [id number] Fahad Sotelo 1950 M Date Provider Department Center 07/14/2024 AIDEN CASEY [facility] Family History Problem Relation Age of Onset Coronary artery disease Other Stroke Other Heart attack Other Family Status - Relation Status Age at Other Normal [facility] Ambulatory Visit Summaryon 0 06-30-2024 Ambulatory Visit Summary Ambulatory Visit Summary FAHAD SOTELO :1950 Visit Date:06/30/2024 Ambulatory Visit Instructions Your Diagnosis Diarrhea Generalized abdominal pain Straining during bowel movements History of colon polyps Abdominal cramping Your Care Team Attending Physician - Forest Solorio MD Primary Care Physician - STANTON [...] Someone Will Contact You Regarding These Appointments [facility] External Ambulatory Referral, Referring provider preference, Colon [...] for choosing us for your care. Antoinette Jalloh [facility] [place] [facility] Gastroenterology Office/Clin ic Noteon 06-30-2024 Gastroenterology [...] Diarrhea, unspecified) Ordered: Current tobacco non-user 1036F [facility] External Ambulatory Referral Most recent diastolic blood pressure <80 mm Hg 3078F Systolic BP <130 mm Hg (Most Recent) 3074F 2. Generalized abdominal pain (R10.84: Generalized abdominal pain) Ordered: Current tobacco non-user 1036F [facility] External Ambulatory Referral Most recent diastolic blood pressure <80 mm Hg 3078F Systolic BP <130 mm Hg (Most Recent) 3074F 3. Straining during bowel movements (R19.8: Other specified symptoms and signs involving the digestive system and abdomen) Ordered: Current tobacco non-user 1036F [facility] External Ambulatory Referral Most recent diastolic blood pressure <80 mm Hg 3078F Systolic BP <130 mm Hg (Most Recent) 3074F 4. History of colon polyps (Z86.0100: Personal history of colon polyps, unspecified) Ordered: Current tobacco non-user 1036F [facility] External Ambulatory Referral Most recent diastolic blood pressure <80 mm Hg 3078F Systolic BP <130 mm Hg (Most Recent) 3074F 5. Abdominal cramping (R10.9: Unspecified abdominal pain) Ordered: [facility] External Ambulatory Referral Will schedule anorectal manometry [...] Family History Family history is negative Normal [facility] Comment on above: Result Comment: Elec tronically Signed By: Lyndsey CAMARGO, Forest Appiah.br\Date and Time Signed: 06/30/24 12:42 EDT CA ECHO DOPPLER COMPLETEon 0 06-06-2024 [place] [address] Cardiology Report Signed Patient: FAHAD SOTELO MR#: [id number] : 1950 Acct:[id number] Age/Sex: 73 / M ADM Date: 06/05/24 Loc: CARD Attending Dr: Tamanna Joshua M.D. Ordering Physician: Tamanna Joshua M.D. Date of Service: 06/05/24 Procedure(s): CA echo doppler complete Accession Number(s): [id number] cc: STANTON VELASCO ; Tamanna Joshua M.D. Patient Name: FAHAD SOTELO MR#: [id number] : 1950 Exam Date: 06/05/2024 Ordering Doctor: [...] 06/06/2444 DD/ 2 (more content not included)... [facility] Radiology, Radiologist, MD - 06/06/2024 [place] [address] Cardiology Report Signed Patient: FAHAD SOTELO MR#: [id number] : 1950 Acct:[id number] Age/Sex: 73 / M ADM Date: 06/05/24 Loc: CARD Attending Dr: Tamanna Joshua M.D. Ordering Physician: Tamanna Joshua M.D. Date of Service: 06/05/24 Procedure(s): CA echo doppler complete Accession Number(s): [id number] cc: STANTON VELASCO ; Tamanna Joshua M.D. Patient Name: FAHAD SOTELO MR#: [id number] : 1950 Exam Date: 06/05/2024 Ordering Doctor: [...] 09:43 Dictated By: ADOLFO DIAZ Signed By: 06/06/24943 DD/ 2 TD/TT: Cook Jelly: [facility] Radiology Study observation (narrative) [facility] CA ECHO DOPPLER COMPLETEOrde red By: Radiologist Radiology on 06-06-2024 [facility] Work Phone: Office Visiton 05-21-2024 Follow-up visit [id number] Fahad Sotelo 1950 M Date Provider Department Center 05/21/2024 271-COLLEENSAMANTHAKRISSY, TAMANNA CARD [facility] Family History Problem Relation Age of Onset Coronary artery disease Other Stroke Other Heart attack Other Family Status - Relation Status Age at Other Level of Service:00840 NM OFFICE/OUTPATIENT ESTABLISHED LOW MDM 20 MIN Normal [facility] Ambulatory Visit Summaryon 0 05-14-2024 Ambulatory Visit Summary Ambulatory Visit Summary FAHAD SOTELO :1950 Visit Date:05/14/2024 Ambulatory Visit Instructions Your Diagnosis Abdominal pain Diarrhea Straining during bowel movements History of colon polyps Generalized abdominal pain Your Care Team Attending Physician - Forest Solorio MD. Primary Care Physician - STANTON VELASCO MD [...] EDT With: Lyndsey CAMARGO, Forest Shelby Where: [facility] [address] [place] [address]- You Need to Complete the Following XR [...] you for choosing us for your care. [facility] Ambulatory Visit Summary Ambulatory Visit Summary AFHAD SOTELO :1950 Visit Date:05/14/2024 Ambulatory Visit Instructions Your Diagnosis Abdominal pain Diarrhea Straining during bowel movements History of colon polyps Generalized abdominal pain Your Care Team Attending Physician - Forest Solorio MD. Primary Care Physician - STANTON VELASCO MD [...] EDT With: Lyndsey CAMARGO, Forest Shelby Where: [facility] [address] [place] [address]- You Need to Complete the Following XR [...] choosing us for your care. Normal Jalloh [facility] [place] [facility] Gastroenterology Office/Clin ic Noteon 05-14-2024 Gastroenterology Office/Clinic Note Gastroenterology Office/Clinic Note Chief Complaint Constipation, abdominal pain. Insurance does not cover Linzess. Patient also has Trulance prescribed by ME. [facility] Staff EST, 73 year old male who presents today for a sick call for complaints of diarrhea and abdominal pain. ME prescribes Trulance. Patient states that before his visit on 05/05/[address] Solorio he was given samples by Dr Velasco of Linzess 290. Patient also states that a few weeks prior to 05/05/24 new patient visit he was at [facility] ER x 2 and was told [...] 05/14/2024 Family History Family history is negative Normal [facility] Comment on above: Result Comment: Elec tronically Signed By: Forest Solorio MD\.br\Date and Time Signed: 05/14/24 13:40 EDT XR Abdomen 1 Viewon 05-15-19 25 XR Abdomen 1 View Exam Date/Time: 05/14/2024 [...] Perry MD Transcribed by: TAHIR Technologist: AP Normal [facility] Ambulatory Visit Summaryon 0 [...] of colon polyps Refills: 9 Pickup at [facility] Unchanged ascorbic acid (Vitamin C) Every [...] physician if questions or concerns Pharmacy Information [facility]: [address] [place], [place] [id number] [phone] Allergies No Known Medication Allergies Problems Ongoing [...] choosing us for your care. Normal Jalloh [facility] [place] [facility] Gastroenterology Office/Clin ic Noteon 05-05-2024 Gastroenterology [...] lactulose, docusate, senna and Dulcolax Colonoscopy @ [facility] 10/02/21 Impression: 2 small polyps in the [...] Daily, # 30 cap(s), Refills(s) 9, Pharmacy: [facility], 175, cm, 05/05/24 12:57:00 EDT, Height/Length Dosing, 99, kg, 05/05/24 12:57:00 EDT, Weight Dosing E&M of New Patient Moderate 45-59 Min 35217 2. Straining during bowel movements (R19.8: Other specified symptoms and signs involving the digestive system and abdomen) Ordered: linaclotide, 145 mcg = 1 cap(s), Oral, Daily, # 30 cap(s), Refills(s) 9, Pharmacy: [facility], 175, cm, 05/05/24 12:57:00 EDT, Height/Length Dosing, 99, kg, 05/05/24 12:57:00 EDT, Weight Dosing E&M of New Patient Moderate 45-59 Min 29753 3. History of colon polyps (Z86.0100: Personal history of colon polyps, unspecified) Ordered: linaclotide, 145 mcg = 1 cap(s), Oral, Daily, # 30 cap(s), Refills(s) 9, Pharmacy: [facility], 175, cm, 05/05/24 12:57:00 EDT, Height/Length Dosing, 99, kg, 05/05/24 12:57:00 EDT, Weight Dosing E&M of New Patient Moderate 45-59 Min 18743 Stop linaclotide Start Linzess 145 mcg daily [...] Family History Family history is negative Normal [facility] Comment on above: Result Comment: Elec tronically Signed By: Lyndsey CAMARGO, Forest Shelby\.br\Date and Time Signed: 05/05/24 13:18 EDT Pablo 04-11-2024 FARHEEN Office Visit (TYRAV ) FAHAD SOTELO ([id number]) 1950 Gertrude Date Time Provider Department 04/11/24 1:30 PM CHRIS CLEMENTS During your visit today, we recorded the following information about you: Chris Clements MD 04/11/2024 3:58 PM Signed Established patient returns with intermittent right groin pain. On repeat examination today with Valsalva Heranndez scrotal palpation a very small hernia is [...] Encounter Status:Closed by CHRIS CLEMENTS on 04/11/24 [facility] 03-17-2024 [facility] Telephone (PIERCEDanelle) AMANDAFAHAD Teresa ([id number]) 1950 M Date Time Provider Department 03/17/24 FADY DYE During your visit today, we recorded the following information about you: Luzma Scott 03/17/2024 9:17 AM Signed Orders faxed to [facility] [phone] Allergies As of Date: 03/17/2024 Noted Allergy [...] Status:Closed by LUZMA SCOTT on 03/17/24 Normal [facility] CNOVon 02-26-2024 CNOV Office Visit (GENSAV ) FAHAD SOTELO ([id number]) 1950 M Date Time Provider Department 02/26/24 1:45 PM CHRIS CLEMENTS During your visit today, we recorded the following information about you: Pulse Blood pressure Weight Height 57/minute 111/70 99.8 kg 1.765 m Chris Clements MD 02/26/2024 3:16 PM Signed Patient is referred by Stanton Velasco II, MD with recent right groin pain. A copy of dictation with recommendations to above by [facility] electronic medical record US mail. No prior [...] hernia diagnosed clinically Referring Provider: FADY DYE [[id number]] Allergies As of Date: 02/26/2024 Noted Allergy [...] groin pain [R10.30] Order(s):CONSULT TO GENERAL SURGERY [3651] Order #: [id number]: 1 Prescriptions as of 02/26/2024 - trospium [...] Encounter Status:Closed by CHRIS CLEMENTS [facility] Telephone (UROLAV) FAHAD SOTELO ([id number]) 1950 M Date Time Provider Department 02/25/24 FADY DYE UROESAU During your visit today, we recorded the following information about you: Rachel Palencia MA 02/25/2024 4:43 PM Signed We received a fax from [employer]. I have the form, from [employer], in Dr. Dye's work bin. We will need Dr. Dye's signature and date signed on the form. When I spoke with the Pt he said he will be getting his cath supplies from [facility]. [employer] is there sister store owned by [facility]. Rachel Palencia MA 02/28/2024 3:09 PM Signed Form faxed to: [phone]. Transmitted OK - Confirmation Received. We will hold onto the paperwork in our hold for two (2) week bin. Afterwards, it will be sent to [facility] for scanning into the pt's chart. Luzma [...] Assessed Reason for Visit: Fax Received - [facility] [Other] Prescriptions as of 03/07/2024 [...] Encounter Status:Closed by RACHEL PALENCIA on 02/28/24 [facility] Keanu 02[facility]22-2024 [facility] FAHAD SOTELO ([id number]) 1950 M Date Time Provider Department 02/22/24 FADY DYE During your visit today, we recorded the following information about you: Luzma Scott 02/22/2024 10:42 AM Signed Faxed orders for catheter supplies to [phone] Allergies As of Date: 02/22/2024 Noted Allergy [...] RN - Fully Assessed Reason for Visit: Hand Salter - Other [7580] Prescriptions as of 02/22/2024 - trospium (SANCTURA) [...] Encounter Status:Closed by LUZMA SCOTT on 02/22/24 [facility] Telephone (URFMOB) FAHAD SOTELO ([id number]) 1950 M Date Time Provider Department 02/18/24 LOUIE SALOMON During your visit today, we recorded the following information about you: Sourav Valles 02/18/2024 10:40 AM Signed Patient is calling into the office. He is requesting caths. He states that he needs 16F. Please assist, thank you Sheree Perdomo RN 02/20/2024 9:26 AM Signed Letter sent to [address] [place] [address] on 02/18/[address] Mejia office. Sheree [...] Encounter Status:Closed by SOURAV VALLES on 02/19/24 [facility] CNPN Telephone (UROLMN) FAHAD SOTELO ([id number]) 1950 M Date Time Provider Department 02/18/24 [...] today, catheters ordered and faxed electronically to [address] [place] [address]. Aislinn Montalvo RN BSN Allergies As of [...] Status:Closed by LUZMA SCOTT on 02/18/24 Normal [facility] CBC (INCLUDES DIFF/PLT)on Basophils (Bld) [#/Vol] 0.033 10*3/uL Normal 0-200 [facility] Comment on above: Performed By: #### 7 600, 71916, 6399 #### [facility] [place] [address] Burr Grinder: Nathanael Nguyen MD Basophils/100 WBC (Bld) 0.5 % Normal [facility] Comment on above: Performed By: #### 7 600, 36477, 6399 #### [facility] [place] [address] Burr Grinder: Nathanael Nguyen MD Eosinophils (Bld) [#/Vol] 0.052 10*3/uL Normal 15-500 [facility] Comment on above: Performed By: #### 7 600, 54948, 6399 #### [facility] [place] [address] Burr Grinder: Nathanael Nguyen MD Eosinophils/100 WBC (Bld) 0.8 % Normal [facility] Comment on above: Performed By: #### 7 600, 95298, 6399 #### [facility] [place] [address] Burr Grinder: Nathanael Nguyen MD Erythrocyte distribution width (RBC) [Ratio] 11.8 % Normal 11.0-15.0 [facility] Comment on above: Performed By: #### 7 600, 94137, 6399 #### [facility] of [address], [address] [place] [address] Burr Grinder: Nathanael Nguyen MD Hematocrit (Bld) [Volume fraction] 47.9 % Normal 38.5-50.0 [facility] Comment on above: Performed By: #### 7 600, 62853, 6399 #### [facility] of [address], [address] [place] [address] Burr Grinder: Nathanael Nguyen MD Hemoglobin (Bld) [Mass/Vol] 16.1 g/dL Normal 13.2-17.1 [facility] Comment on above: Performed By: #### 7 600, 27457, 6399 #### [facility] of [place] [address] Burr Grinder: Nathanael Nguyen MD Lymphocytes (Bld) [#/Vol] 1.892 10*3/uL Normal 850-3900 [facility] Comment on above: Performed By: #### 7 600, 41994, 6399 #### [facility] of [place] [address] Burr Grinder: Nathanael Nguyen MD Lymphocytes/100 WBC (Bld) 29.1 % Normal [facility] Comment on above: Performed By: #### 7 600, 60747, 6399 #### [facility] of [place] [address] Burr Grinder: Nathanael Nguyen MD MCH (RBC) [Entitic mass] 31.0 pg Normal 27.0-33.0 [facility] Comment on above: Performed By: #### 7 600, 61664, 6399 #### [facility] of [place] [address] Burr Grinder: Nathanael Nguyen MD MCHC (RBC) [Mass/Vol] 33.6 [...] clinical condition. Performed By: #### 7 600, 98485, 6399 #### [facility] of [place] [address] Burr Grinder: Nathanael Nguyen MD MCV (RBC) [Entitic vol] 92.3 fL Normal 80.0-100.0 [facility] Comment on above: Performed By: #### 7 600, , 99 #### [facility] of [place] [address] Burr Grinder: Nathanael Nguyen MD Monocytes (Bld) [#/Vol] 0.585 10*3/uL Normal 200-950 [facility] Comment on above: Performed By: #### 7 600, , 6398 #### [facility] of [place] [address] Burr Grinder: Nathanael Nguyen MD Monocytes/100 WBC (Bld) 9.0 % Normal [facility] Comment on above: Performed By: #### 7 600, , 6399 #### [facility] of [place] [address] Burr Grinder: Nathanael Nguyen MD Neutrophils (Bld) [#/Vol] 3.939 10*3/uL Normal 3701-3028 [facility] Comment on above: Performed By: #### 7 600, 44384, 6399 #### [facility] of [place] [address] Burr Grinder: Nathanael Nguyen MD Neutrophils/100 WBC (Bld) 60.6 % Normal [facility] Comment on above: Performed By: #### 7 600, 97155, 6399 #### [facility] of [place] [address] Burr Grinder: Nathanael Nguyen MD Platelet mean volume (Bld) [Entitic vol] 10.7 fL Normal 7.5-12.5 [facility] Comment on above: Performed By: #### 7 600, 53037, 6399 #### [facility] of [place] [address] Burr Grinder: Nathanael Nguyen MD Platelets (Bld) [#/Vol] 201 10*3/uL Normal 140-400 [facility] Comment on above: Performed By: #### 7 600, 15727, 6399 #### [facility] of [address], [address] [place] [address] Burr Grinder: Nathanael Nguyen MD RBC (Bld) [#/Vol] 5.19 10*6/uL Normal 4.20-5.80 [facility] Comment on above: Performed By: #### 7 600, 71182, 6399 #### [facility] of [place] [address] Burr Grinder: Nathanael Nguyen MD WBC (Bld) [#/Vol] 6.5 10*3/uL Normal 3.8-10.8 [facility] Comment on above: Performed By: #### 7 600, 90762, 6399 #### [facility] of [place] [address] Burr Grinder: Nathanael Nguyen MD [facility] 02-16-2024 Albumin [Mass/Vol] 4.3 g/dL Normal 3.6-5.1 [facility] Comment on above: Performed By: #### 7 600, 65953, 6399 #### [facility] of [place] [address] Burr Grinder: Nathanael Nguyen MD Albumin/Globulin [Mass ratio] 2.0 {ratio} Normal 1.0-2.5 [facility] Comment on above: Performed By: #### 7 600, 49492, 6399 #### [facility] of [place] [address] Burr Grinder: Nathanael Nguyen MD ALP [Catalytic activity/Vol] 58 U/L Normal 35-144 [facility] Comment on above: Performed By: #### 7 600, 23731, 6399 #### [facility] of [address], [address] [place] [address] Burr Grinder: Nathanael Nguyen MD ALT [Catalytic activity/Vol] 14 U/L Normal 9-46 [facility] Comment on above: Performed By: #### 7 600, 01684, 6399 #### [facility] of [address], [address] [place] [address] Burr Grinder: Nathanael Nguyen MD AST [Catalytic activity/Vol] 13 U/L Normal 10-35 [facility] Comment on above: Performed By: #### 7 600, 47797, 6399 #### [facility] of [address], [address] [place] [address] Burr Grinder: Nathanael Nguyen MD Bilirubin [Mass/Vol] 0.7 mg/dL Normal 0.2-1.2 [facility] Comment on above: Performed By: #### 7 600, 72681, 6399 #### [facility] of [address], [address] [place] [address] Burr Grinder: Nathanael Nguyen MD BUN/CREATININE RATIO SEE NOTE: Normal 6-22 [facility] Comment on above: Result Comment: Not Reported: BUN and Creatinine are within reference range. Performed By: #### 7 600, 62874, 6399 #### [facility] of [address], [address] [place] [address] Burr Grinder: Nathanael Nguyen MD Calcium [Mass/Vol] 9.0 mg/dL Normal 8.6-10.3 [facility] Comment on above: Performed By: #### 7 600, 97463, 6399 #### [facility] of [address], [address] [place] [address] Burr Grinder: Nathanael Nguyen MD Chloride [Moles/Vol] 103 mmol/L Normal 98-110 [facility] Comment on above: Performed By: #### 7 600, 44255, 6399 #### [facility] of [address], [address] [place] [address] Burr Grinder: Nathanael Nguyen MD CO2 [Moles/Vol] 31 mmol/L Normal 20-32 [facility] Comment on above: Performed By: #### 7 600, 16003, 6399 #### [facility] [place] [address] Burr Grinder: Nathanael Nguyen MD Creatinine [Mass/Vol] 0.75 mg/dL Normal 0.70-1.[address] [facility] Comment on above: Performed By: #### 7 600, 87273, 6399 #### [facility] [place] [address] Burr Grinder: Nathanael Nguyen MD GFR/1.73 sq M.predicted among non-blacks MDRD (S/P/Bld) [Vol rate/Area] 94 mL/min/{1.73_m2} Normal > OR = 60 [facility] Comment on above: Performed By: #### 7 600, 66211, 6399 #### [facility] [address], [address] [place] [address] Burr Grinder: Nathanael Nguyen MD Globulin (S) [Mass/Vol] 2.2 g/dL Normal 1.9-3.7 [facility] Comment on above: Performed By: #### 7 600, 47146, 0499 #### [facility] [place] [address] Burr Grinder: Nathanael Nguyen MD Glucose [Mass/Vol] 107 mg/dL High 65-99 [facility] Comment on above: Result Comment: Fasting reference interval For someone without known diabetes, a glucose value between 100 and 125 mg/dL is consistent with prediabetes and should be confirmed with a follow-up test. Performed By: #### 7 600, 91213, 6399 #### [facility] of [address], [address] [place] [address] Burr Grinder: Nathanael Nguyen MD Potassium [Moles/Vol] 4.3 mmol/L Normal 3.5-5.[address] [facility] Comment on above: Performed By: #### 7 600, 63568, 6399 #### [facility] of [address], [address] [place] [address] Burr Grinder: Nathanael Nguyen MD Protein [Mass/Vol] 6.5 g/dL Normal 6.1-8.1 [facility] Comment on above: Performed By: #### 7 600, 61552, 6399 #### [facility] of [address], [address] [place] [address] Burr Grinder: Nathanael Nguyen MD Sodium [Moles/Vol] 140 mmol/L Normal 135-146 [facility] Comment on above: Performed By: #### 7 600, 92552, 6399 #### [facility] of [address], [address] [place] [address] Burr Grinder: Nathanael Nguyen MD Urea nitrogen [Mass/Vol] 13 mg/dL Normal 7-25 [facility] Comment on above: Performed By: #### 7 600, 86610, 6399 #### [facility] of [place] [address] Burr Grinder: Nathanael Nguyen MD LIPID PANEL, [facility] Cholesterol [Mass/Vol] 129 mg/dL Normal <200 [facility] Comment on above: Order Comment: FASTI NG:YES FASTING: YES Performed By: #### 7 600, 95038, 6399 #### [facility] of [place] [address] Burr Grinder: Nathanael Nguyen MD Cholesterol in HDL [Mass/Vol] 43 mg/dL Normal > OR = 40 [facility] Comment on above: Order Comment: FASTI NG:YES FASTING: YES Performed By: #### 7 600, 56098, 6399 #### [facility] of [place] [address] Burr Grinder: Nathanael Nguyen MD Cholesterol in LDL [Mass/Vol] [...] LDL-C. Talha HERNANDEZ et al. MANPREET. 2013;310(19): 8437-4217 (http://education.[employer].TelePharm/faq/TXY373) Performed By: #### 7 600, 59874, 6399 #### [facility] [address], [address] [place] [address] Burr Grinder: Nathanael Nguyen MD Cholesterol.total/Cho lesterol in HDL [Mass ratio] 3.0 {ratio} Normal <5.0 [facility] Comment on above: Order Comment: FASTI NG:YES FASTING: YES Performed By: #### 7 600, 92948, 6399 #### [facility] [address], [address] [place] [address] Burr Grinder: Nathanael Nguyen MD NON HDL CHOLESTEROL 86 mg/dL (calc) Normal <130 [facility] Comment on above: Order Comment: FASTI NG:YES FASTING: YES Result Comment: For patients with diabetes plus 1 major ASCVD risk factor, treating to a non-HDL-C goal of <100 mg/dL (LDL-C of <70 mg/dL) is considered a therapeutic option. Performed By: #### 7 600, 26865, 6399 #### [facility] [address], [address] [place] [address] Burr Grinder: Nathanael Nguyen MD Triglyceride [Mass/Vol] 97 mg/dL Normal <150 [facility] Comment on above: Order Comment: FASTI NG:YES FASTING: YES Performed By: #### 7 600, 93774, 6399 #### [facility] [place] [address] Burr Grinder: Nathanael Nguyen MD PSA, TOTALon 02-16-2024 PSA, [...] of disease. Performed By: #### 7 600, 48141, 6399 #### [facility] [address], [address] [place] [address] Burr Grinder: Nathanael Nguyen MD Urine Cultureon 01-25-2024 Bacteria identified Cx Nom (U) 25,000 colonies/ml mixed bacterial skin contaminants 2 Days PERFORMED BY: [place] [address] PATHOLOGIST VISUAL EFFECTS EDITOR JENNI GREEN M.D. Normal [facility] Comment on above: Performed By: #### C UU #### [address] CNOVon 01-17-2024 CNOV Office Visit (UROLAV ) FAHAD SOTELO ([id number]) 1950 M Date Time Provider Department 01/17/24 [...] Diagnosis Date CAD (coronary artery disease) 2005 SC in 1997. Had a stent placed in [...] 03/29/2017 Dr. Fady Dye - [facility] LEFT HEART CATH,PERCUTANEOUS 05/11/2003 Cardiac cath, [...] Procedure done by Nava Back LPN, [facility] Social History Tobacco Use Smoking status: [...] 06/29/2017 0.88 (more content not included)... Normal [facility] BACTERIA UR CULTon 12-13 [facility] BACTERIA UR CULT ORGANISM ID: 1 Abnormal [facility] BACTERIA UR CULT >=100,000 CFU/ml Escherichia coli [facility] BACTERIA UR CULT ORGANISM ID: 1 (ESCHERICHIA COLI) -- ANTIBIOTIC INTERPRETATION RL STATUS REFERENCE RANGE -- Abnormal [facility] CCF BACTERIA UR CULT Ampicillin S <=2 F Susceptible <=8 , Intermediate >8 , Resistant >16 Abnormal [facility] BACTERIA UR CULT Cefazolin S <=4 F Susceptible 0-16 , Intermediate <0 or >16 , Resistant >16 Abnormal [facility] BACTERIA UR CULT For uncomplicated urinary tract infections, cefazolin results can be used to predict susceptibility or resistance to cephalexin. [facility] BACTERIA UR CULT Ceftriaxone S <=1 F Susceptible <=1 , Intermediate >1 , Resistant >=4 Abnormal [facility] BACTERIA UR CULT Cefepime S <=1 F Susceptible <=2 , Susceptible-Dose Dependent >2 , Resistant >=16 Abnormal [facility] BACTERIA UR CULT Ertapenem S <=0.5 F Susceptible <=0.5 , Intermediate >.5 , Resistant >1 Abnormal [facility] BACTERIA UR CULT Meropenem S <=0.25 F Susceptible <=1 , Intermediate >1 , Resistant >2 Abnormal [facility] BACTERIA UR CULT Ampicillin/Sulbact S <=2 F Susceptible <=8 , Intermediate >8 , Resistant >16 Abnormal [facility] BACTERIA UR CULT Piperacillin/Tazoba c S <=4 F Susceptible <16 , Susceptible-Dose Dependent >=16 , Resistant >=32 Abnormal [facility] BACTERIA UR CULT Gentamicin S <=1 F Susceptible <=2 , Intermediate >2 , Resistant >=8 Abnormal [facility] BACTERIA UR CULT Tobramycin S <=1 F Susceptible <4 , Intermediate >=4 , Resistant >=8 Abnormal [facility] BACTERIA UR CULT Trimeth sulfameth S <=20 F Susceptible <=40 , Resistant >40 Abnormal [facility] BACTERIA UR CULT Ciprofloxacin S <=0 .25 F Susceptible <0.5 , Intermediate >=.5 , Resistant >=1 Abnormal [facility] BACTERIA UR CULT Nitrofurantoin S <= 16 F Susceptible <=32 , Intermediate >32 , Resistant >64 Abnormal [facility] Interpretation and review of laboratory results Abnormal [facility] Original Ordering Provider: LOUIE SALOMON [facility] 12-14-2023 [facility] Telephone (UROLMN) FAHAD SOTELO ([id number]) 1950 M Date Time Provider Department 12/14[facility] your visit today, we recorded the following information about you: Daija Lares PA-C 12/14/2023 3:31 PM Signed Fahad Sotelo [id number] Called patient re: recent urine culture with [...] Status:Closed by DAIJA LARES on 12/14/23 Normal [facility] Bacteria Ur Culton Bacteria identified Cx [...] , Intermediate >32 , Resistant >64 Abnormal [facility] Comment on above: Performed By: #### 6 ####[facility] LABCLIA [id number] [address] [place] 12-12-2023 CNOV Office Visit (URFMOB ) FAHAD SOTELO ([id number]) 1950 M Date Time Provider Department 12/12/23 1:30 PM LOUIE SALOMON During your visit today, we recorded the following information about you: Pulse Blood pressure 63/minute 130/72 Fela TeranARACELI 12/12/2023 1:23 PM Signed Post Void Residual [...] Diagnosis Date CAD (coronary artery disease) 2004 SC in 1997. Had a stent placed in 2008 c/b coronary artery dissection and that lead to a CABG x1 in 2008 Former smoker quit 1997 Hyperlipidemia Hypertension Intermittent self-catheterization of bladder Urge incontinence of urine PAST SURGICAL HISTORY Procedure Laterality Date ARTHRP KNE CONDYLEANDPLATU MEDIALANDLAT COMPARTMENTS 10/30/2018 right CABG (1) VEIN GRAFT AND ARTERIAL GRAFT 2009 coronary dissection during stent placement [facility] INNERVATED FACIAL NRV UNIL CYSTO.PANENDO 11/24/2021 Dr. Dye CYSTO.PANENDO 05/31/2022 CYSTO.PANENDO N/A 06/04/2023 CYSTOSCOPY 03/29/2017 Dr. Fady Dye - [facility] LEFT HEART CATH,PERCUTANEOUS 05/11/2003 Cardiac cath, [...] done by Nava Back LPN, [facility] Social History Tobacco Use Smoking status: [...] 0.31 Creatinin (more content not included)... Normal [facility] UA DIP, URINE (POC)on 2023 BILIRUBIN UA (POCT) Negative Negative [facility] CLARITY UA (POCT) Clear [facility] COLOR UA (POCT) Yellow [facility] GLUCOSE UA (POCT) Negative Negative mg/dL [facility] Hemoglobin Ql (U) Trace-intact Abnormal Negative [facility] Interpretation and review of laboratory results Abnormal [facility] KETONE UA (POCT) Negative Negative mg/dL [facility] LEUKOCYTES UA (POCT) Moderate Abnormal Negative [facility] NITRITE UA (POCT) Positive Abnormal Negative [facility] PH UA (POCT) 6.0 4.5 - 8.0 [facility] Protein Ql (U) Trace Abnormal Negative mg/dL [facility] SPECIFIC GRAVITY UA (POCT) 1.025 1.005 - 1.030 [facility] UROBILINOGEN UA (POCT) 0.2 Normal E.U./dL [facility] Location:[facility], [address] [address] [place], [place], [id number] [place] [address] POINT OF CARE [facility] Keanu 11-13-2023 NOHELIA Telephone (UROLMN) FAHAD SOTELO ([id number]) 1950 M Date Time Provider Department 11/13/23 [...] PA-C 11/13/2023 10:49 AM Signed Fahad Sotelo [id number] Returned call to patient. Got up 7 [...] Encounter Status:Closed by DAIJA LARES on 11/13/23 Normal [facility] ANES POSTPROC EVALon 024 ANES POSTPROC EVAL HNO ID: [id number] Author: ARIANNA HAYNES MD Service: Anesthesiology Author Type: Anesthesiologist Type: Anesthesia Postprocedure Evaluation Filed: 08/02/2023 09:55 Note Text: POST ANESTHESIA EVALUATION NOTE : 1950 Procedure Summary Date: 08/02/23 Room / Location: [address] Anesthesia Start: 903 Anesthesia Stop: 950 Procedures: [...] August 02, 2023 TIME: 9:55 AM CSN: [id number] [facility] ANES PRE-OPon 08-02-2023 ANES PRE-OP HNO ID: [id number] Author: ARIANNA HAYNES MD Service: Anesthesiology Author Type: Anesthesiologist Type: Anesthesia Preprocedure Evaluation Filed: 08/02/2023 08:03 Note Text: ANESTHESIOLOGY DAY OF SURGERY NOTE : 1950 Procedure Information Date/Time: 08/02/23 0845 Procedures: DILATION OF URETHRAL STRICTURE BY PASSAGE OF SOUND OR URETHRAL DILATOR, MALE; INITIAL (Bladder) CYSTOURETHROSCOPY W/INJECTION(S) FOR CHEMODENERVATION OF THE BLADDER (Urethra) Location: [address] / [facility] Surgeons: Louie Salomon MD Estimated [...] and consent discussed: yes. Patient / Responsible Libertarian agrees to proceed: yes Patient / Surrogate [...] August 02, 2023 TIME: 7:58 AM CSN: [id number] [facility] OPERATIVE NOon 08-02-2023 OPERATIVE NO HNO ID: [id number] Author: LOUIE SALOMON MD Service: Urology Author Type: Physician Type: Operative Report Filed: 08/02/2023 09:44 Note Text: OPERATIVE/PROCEDURE REPORT LOG ID: [id number] Surgery/Procedure Date: 08/02/2023 Incision/Procedure Start Time: 9:21 AM Incision Close/Procedure End Time: 9:37 AM Surgeon(s)/Procedurali st(s) and Cognos Architect(s): Surgeon(s) and Role: * Louie Salomon MD [...] QID Repeat VUDS in 4-6 weeks Normal [facility] 07-11-2023 [facility] Telephone (URFMOB) FAHAD SOTELO ([id number]) 1950 M Date Time Provider Department 07/11/23 LOUIE SALOMONLISSET During your visit today, we recorded the [...] Date Reviewed: 07/05/2023 Reviewed by: Rigo Cano APRN.COMMERCIAL REAL ESTATE MANAGER - Fully Assessed Order(s):cephALEXin (KEFLEX) 500 mg [...] Encounter Status:Closed by [facility] Office Visit (URFMOB ) FAHAD SOTELO ([id number]) 1950 Date Time Provider Department 06/20/23 10:30 AM LOUIE SALOMON During your visit today, we recorded the following information about you: Pulse Blood pressure 64/minute 128/70 Leoncio Zavala MA 06/20/2023 3:02 PM Signed Post Void Residual done on patient with 0 cc residual volume remaining. notified. DIAZ Edward Molly, MD 06/20/2023 3:02 PM Addendum [facility]Y NEW [...] Diagnosis Date CAD (coronary artery disease) 2005 SC in 1997. Had a stent placed in [...] 2008 coronary dissection during stent placement [facility] INNERVATED FACIAL NRV UNIL CYSTO.PANENDO 11/24/2021 Dr. Dye CYSTO.PANENDO 05/31/2022 CYSTO.PANENDO N/A 06/04/2023 CYSTOSCOPY 03/29/2017 Dr. Fady Dye - [facility] LEFT HEART CATH,PERCUTANEOUS 05/11/2003 Cardiac cath, [...] done by Nava Back LPN, [facility] FAMILY HISTORY FAMILY HISTORY Problem Relation [...] MAGNESIA ORAL) (more content not included)... Normal [facility] UA DIP, URINE (POC)on 2023 BILIRUBIN UA (POCT) Negative Negative [facility] CLARITY UA (POCT) Clear [facility] COLOR UA (POCT) Yellow [facility] GLUCOSE UA (POCT) Negative Negative mg/dL [facility] Hemoglobin Ql (U) Negative Negative [facility] Interpretation and review of laboratory results Abnormal [facility] KETONE UA (POCT) Negative Negative mg/dL [facility] LEUKOCYTES UA (POCT) Small Abnormal Negative [facility] NITRITE UA (POCT) Negative Negative [facility] PH UA (POCT) 6.0 4.5 - 8.0 [facility] Protein Ql (U) Negative Negative mg/dL [facility] SPECIFIC GRAVITY UA (POCT) 1.025 1.005 - 1.030 [facility] UROBILINOGEN UA (POCT) 0.2 Normal E.U./dL [facility] Location:[facility], [address] [facility], [place], [place], [address] [facility] POINT OF CARE [facility] XR SHOULDER ORTHO 4V AP/TRUE AP/LAT/OUTLET LEFTon 06-23-2022 [facility] XR Shoulder - left 4 Viewson 06-23-2022 IMPRESSION: Postoperative and degenerative changes, as described. Cook Jelly: DEEPIKA Transcribe Date/Time: Jun 23 2022 4:32P Dictated by : SILVA RILEY MD This examination was interpreted and the report reviewed and electronically signed by: SILVA RILEY MD on Jun 23 2022 4:33PM [facility] * * *Final Report* [...] space is maintained. DIVISION OF RADIOLOGY Provider, Chiquis [facility] - 06/23/2022 * * *Final Report* [...] IMPRESSION: Postoperative and degenerative changes, as described. [facility] Trans[facility] Date/Time: Jun 23 2022 4:32P Dictated by : SILVA RILEY MD This examination was interpreted and the report reviewed and electronically signed by: SILVA RILEY MD on Jun 23 2022 4:33PM EST [facility] Radiology Study observation (narrative) [facility] XR Shoulder - left 4 ViewsOr dered By: [facility] Provider on 06-23-2022 [facility] ECHOCARDIO M/2D COMPLETEon 0 06-07-2022 ECHOCARDIO M/2D COMPLETE Patient: FAHAD SOTELO Exam Date: 06/07/2022 : 1950 Gender:M Ordering : DR TAMANNA JOSHUA M.D. Admission #: [id number] Family : DR STANTON VELASCO M.D. Order #: [id number] CLICK HERE TO VIEW EXAM ECHOCARDIOGRAM REPORT [...] Joshua M.D. on 06/07/2022 at 15:50 Normal [facility] [place] UA DIP, URINE (POC)on 2022 BILIRUBIN UA (POCT) Negative Negative [facility] CLARITY UA (POCT) Clear [facility] COLOR UA (POCT) Yellow [facility] GLUCOSE UA (POCT) Negative Negative mg/dL [facility] HEMOGLOBIN/BLOOD UA (POCT) Negative Negative [facility] KETONE UA (POCT) Negative Negative mg/dL [facility] LEUKOCYTES UA (POCT) Negative Negative [facility] NITRITE UA (POCT) Negative Negative [facility] PH UA (POCT) 5.5 4.5 - 8.0 [facility] Protein Ql (U) Negative Negative mg/dL [facility] SPECIFIC GRAVITY UA (POCT) <=1.005 Abnormal 1.005 - 1.030 [facility] UROBILINOGEN UA (POCT) 0.2 E.U./dL Normal E.U./dL [facility] CREATININEon 05-19-2022 Creatinine [Mass/Vol] 0.92 mg/dL Normal 0.70-1.30 [facility] Comment on above: Performed By: #### C ERMA #### [facility] [address] [place] [address] [address] Joey Montalvo EGFR-AF BURKINAN >60 Normal >=60 [facility] Comment on above: Performed By: #### C ERMA #### [facility] [address] [place], [place] [address] Dr. Joey Montalvo EGFR-NON AF BURKINAN >60 Normal >=60 [facility] [place] Comment on above: Performed By: #### C ERMA #### [facility] [address] [place] [address] CHEST W CONon [...] GERSON AMADO Date: 2022-05-19 11:14 Normal [facility] XR HIP RT 2 3V WO [...] CARMEN BURGOS Date: 2022-04-14 23:20 Normal [facility] CULTURE URINEon 03-25-2022 CULTURE URINE Isolate [...] Trimethoprim/Sulfameth oxazole <=20 S F Normal [facility] Comment on above: Performed By: #### U RCX ####[facility] [address] [place], [place] [address]Dr. Joey Montalvo CBC AUTO DIFFon 03-23-2022 BASO # 0.1 103/ul Normal 0.0-0.1 [facility] Comment on above: Performed By: #### C BC ####[facility] [address] [place], [place] [address]Dr. Joey Montalvo Basophils/100 WBC (Bld) 0.7 % Normal 0.2-2.0 [facility] Comment on above: Performed By: #### C BC ####[facility] [address] [place], [place] [address]Dr. Joey Montalvo EO # 0.1 103/ul Normal 0.0-0.7 [facility] Comment on above: Performed By: #### C BC ####[facility] [address] [place] [address]Dr. Joey Montalvo Eosinophils/100 WBC (Bld) 1.2 % Normal 0.9-7.0 [facility] Comment on above: Performed By: #### C BC ####[facility] [address] [place], [place] [address]Dr. Joey Montalvo Erythrocyte distribution width (RBC) [Ratio] 12.4 % Normal 11.0-15.0 [facility] Comment on above: Performed By: #### C BC ####[facility] [address] [place], [place] [address]Dr. Joey Montalvo Hematocrit (Bld) [Volume fraction] 45.2 % Normal 42.0-54.0 [facility] Comment on above: Performed By: #### C BC ####[facility] [address] [place], [place] [address]Dr. Joey Montalvo Hemoglobin (Bld) [Mass/Vol] 15.5 g/dL Normal 14.0-18.0 [facility] Comment on above: Performed By: #### C BC ####[facility] [address] [place], [place] [address]Dr. Joey Montalvo IG # 0.05 10e3/ul Critically high 0.00-0.03 [facility] Comment on above: Performed By: #### C BC ####[facility] [address] [place], [place] [address]Dr. Joey Montalvo IG % 0.7 % Critically high 0.0-0.5 [facility] Comment on above: Performed By: #### C BC ####[facility] [address] [place], [place] [address]Dr. Joey Montalvo LYMPH # 2.0 103/ul Normal 1.2-3.8 [facility] Comment on above: Performed By: #### C BC ####[facility] [address] [place], [place] [address]Dr. Joey Montalvo Lymphocytes/100 WBC (Bld) 29.0 % Normal 20.5-60.0 [facility] Comment on above: Performed By: #### C BC ####[facility] [address] [place] [id number]. Joey Montalvo MANUAL DIFF REQ NO Normal [facility] Comment on above: Performed By: #### C BC ####[facility] [address] [place] [address]Dr[address] Joey Montalvo MCH (RBC) [Entitic mass] 31.0 pg Normal 25.9-34.0 [facility] Comment on above: Performed By: #### C BC ####[facility] [address] [place] [address]Dr. Joey Montalvo MCHC (RBC) [Mass/Vol] 34.3 g/dL Normal 29.9-35.2 [facility] Comment on above: Performed By: #### C BC ####[facility] [address] [place] [address]Dr. Joey Montalvo MCV (RBC) [Entitic vol] 90.4 fL Normal 80.0-94.0 [facility] Comment on above: Performed By: #### C BC ####[facility] [address] [place] [id number]. Joey Montalvo MONO # 0.8 103/ul Normal 0.3-0.8 [facility] Comment on above: Performed By: #### C BC ####[facility] [address] [place] [address]Dr. Joey Selvin Monocytes/100 WBC (Bld) 12.1 % Critically high 1.7-12.0 [facility] Comment on above: Performed By: #### C BC ####[facility] [address] [place] [id number]. Joey Montalvo NEUT # 3.8 103/ul Normal 1.4-6.5 [facility] Comment on above: Performed By: #### C BC ####[facility] [address] [place] [address]Dr. Joey Selvin Neutrophils/100 WBC (Bld) 56.3 % Normal 43.0-75.0 [facility] Comment on above: Performed By: #### C BC ####[facility] [address] [place], [place] [address]Th. Joey Montalvo Platelet mean volume (Bld) [Entitic vol] 9.5 fL Normal 9.5-13.5 [facility] Comment on above: Performed By: #### C BC ####[facility] [address] [place], [place] [address]Vf. Joey Montalvo PLT 216 103/ul Normal 150-450 [facility] Comment on above: Performed By: #### C BC ####[facility] [address] [place], [place] [address]Pv. Joey Montalvo RBC 5.00 106/ul Normal 4.70-6.10 [facility] Comment on above: Performed By: #### C BC ####[facility] [address] [place], [place] [address]Hx. Joey Montalvo WBC 6.8 103/ul Normal 4.0-11.0 [facility] Comment on above: Performed By: #### C BC ####[facility] [address] [place] [id number]. Joey Montalvo CT STROKE HEAD WOon 03-23-19 [...] KIM PARK Date: 2022-03-23 15:03 Normal [facility] CTA HEAD WO W CONon 03-23-19 23 CTA HEAD WO W CON EXAMINATION: CTA [...] stenosis. Bilateral intracranial ICAs, MCA's, ACAs and purchasing and fiscal clerk are patent. Basilar artery is patent. Intracranial vertebral arteries patent. Dural venous sinuses grossly patent. IMPRESSION: No intracranial large vessel occlusion. 50% left cervical ICA stenosis. Electronically authenticated by: ALEXANDRE SWENSON Date: 2022-03-23 16:30 Normal [facility] ER URINE PROFILEon 3 Bilirubin Ql (U) Negative Normal NEGATIVE [facility] Comment on above: Performed By: #### U MICRO, ERUR ####[facility] [address] [place], [place] [address]Dr. Joey Montalvo Clarity (U) CLEAR Normal CLEAR [facility] [place] Comment on above: Performed By: #### U MICRO, ERUR ####[facility] [address] [place] [address]Dr. Joey Montalvo Color (U) LT. YELLOW Normal YELLOW [facility] [place] Comment on above: Performed By: #### U MICRO, ERUR ####[facility] [address] [place] [address]Dr. Joey HIGGINSAHD A micrscopic examination will be performed if indicated. Normal [facility] Comment on above: Performed By: #### U MICRO, ERUR ####[facility] [address] [place], [place] [address]Dr. Joey Montalvo Glucose Ql (U) Negative Normal NEGATIVE The [facility] Comment on above: Performed By: #### U MICRO, ERUR ####[facility] [address] [place], [place] [address]Dr. Joey Montalvo Hemoglobin Ql (U) TRACE-INTACT Abnormal NEGATIVE [facility] Comment on above: Performed By: #### U MICRO, ERUR ####[facility] [address] [place] [address]Dr. Joey Montalvo Ketones Ql (U) Negative Normal NEGATIVE [facility] Comment on above: Performed By: #### U MICRO, ERUR ####[facility] [address] [place], [place] [address]Dr. Joey Montalvo LEUKOCYTES SMALL Abnormal NEGATIVE [facility] [place] Comment on above: Performed By: #### U MICRO, ERUR ####[facility] [address] [place], [place] [address]Dr. Joey Montalvo Nitrite Ql (U) Negative Normal NEGATIVE [facility] Comment on above: Performed By: #### U MICRO, ERUR ####[facility] P[address] [place], [place] [address]Dr. Joey Montalvo pH (U) 6.0 [pH] Normal 5-9 [facility] [place] Comment on above: Performed By: #### U MICRO, ERUR ####[facility] [address] [place], [place] [address]Dr. Joey Montalvo SPEC GRAVITY 1.015 Normal 1.005-<=1.02 5 [facility] [place] Comment on above: Performed By: #### U MICRO, ERUR ####[facility] [address] [place], [place] [address]Dr. Joey Montalvo UA PROTEIN Negative Normal NEGATIVE/ TRACE [facility] Comment on above: Performed By: #### U MICRO, ERUR ####[facility] [address] [place], [place] [address]Dr. Joey Montalvo UR MICRO IND INDICATED Normal [facility] [place] Comment on above: Performed By: #### U MICRO, ERUR ####[facility] [address] [place], [place] [address]Dr. Joey Montalvo Urobilinogen Qn (U) 0.2 {Selena'U}/dL Normal 0.2 - 1. 0 [facility] [place] Comment on above: Performed By: #### U MICRO, ERUR ####[facility] [address] [place] [address]Dr. Joey Montalvo PROF 14(COMP METB)on 023 Albumin [Mass/Vol] 3.5 g/dL Normal 3.4-5.0 [facility] Comment on above: Performed By: #### T SH, HSTROPN, CMP #### [facility] [address] [address] [address] Joey Montalvo Albumin/Globulin [Mass ratio] 1.0 {ratio} Normal [facility] [place] Comment on above: Performed By: #### T SH, HSTROPN, CMP #### [facility] [address] [place] [address] Dr. Joey Montalvo ALP [Catalytic activity/Vol] 68 U/L Normal 46-116 [facility] [place] Comment on above: Performed By: #### T CANDY, HSTROPN, CMP #### [facility] [address] [place] [address] Dr. Joey Montalvo ALT [Catalytic activity/Vol] 21 U/L Normal 16-63 [facility] [place] Comment on above: Performed By: #### T CANDY, HSTROPN, CMP #### [facility] [address] [place] [address] Dr. Joey Montalvo Anion gap [Moles/Vol] 11.6 mmol/L Normal [facility] Comment on above: Performed By: #### T CANDY, HSTROPN, CMP #### [facility] [address] [place] [address] Dr. Joey Montalvo AST [Catalytic activity/Vol] 14 U/L Critically low 15-37 [facility] [place] Comment on above: Performed By: #### T CANDY, HSTROPN, CMP #### [facility] [address] [place] [address] Dr. Joey Montalvo Bilirubin [Mass/Vol] 0.4 mg/dL Normal 0.2-1.0 [facility] [place] Comment on above: Performed By: #### T SH, HSTROPN, CMP #### [facility] [address] [place] [address] Dr. Joey Montalvo Calcium [Mass/Vol] 9.1 mg/dL Normal 8.5-10.1 [facility] Comment on above: Performed By: #### T CANDY HSTROPN, CMP #### [facility] [address] [place] [address] Dr. Joey Montalvo Chloride [Moles/Vol] 104 mmol/L Normal 98-107 [facility] [place] Comment on above: Performed By: #### T CANDY, HSTROPN, CMP #### [facility] [address] [place] [address] Dr. Joey Montalvo CO2 [Moles/Vol] 29.6 mmol/L Normal 21.0-32.0 [facility] Comment on above: Performed By: #### T CANDY HSTROPN, CMP #### [facility] [address] [place] [address] Dr. Joey Montalvo Creatinine [Mass/Vol] 0.68 mg/dL Critically low 0.70-1.30 [facility] [place] Comment on above: Performed By: #### T CANDY, HSTROPN, CMP #### [facility] [address] [place] [address] Dr. Joey Montalvo EGFR-AF BURKINAN >60 Normal >=60 [facility] Comment on above: Performed By: #### T CANDY, HSTROPN, CMP #### [facility] [address] [place] [address] Dr. Joey Montalvo EGFR-NON AF BURKINAN >60 Normal >=60 [facility] [place] Comment on above: Performed By: #### T CANDY, HSTROPN, CMP #### [facility] [address] [place] [address] Dr. Joey Montalvo Globulin (S) [Mass/Vol] 3.4 g/dL Normal [facility] [place] Comment on above: Performed By: #### T CANDY, HSTROPN, CMP #### [facility] [address] [place] [address] Dr. Joey Montalvo Glucose [Mass/Vol] 109 mg/dL Critically high 74-106 [facility] Comment on above: Performed By: #### T SH, HSTRSHIV, CMP #### [facility] [address] [address] [address] Joey Montalvo Potassium [Moles/Vol] 4.2 mmol/L Normal 3.5-5.1 [facility] Comment on above: Performed By: #### T TERRI GUPTATRSHIV, CMP #### [facility] [address] [address] [address] Joey Montalvo Protein [Mass/Vol] 6.9 g/dL Normal 6.4-8.2 [facility] Comment on above: Performed By: #### T TERRI GUPTATRSHIV, CMP #### [facility] [address] [address] [address] Joey Montalvo Sodium [Moles/Vol] 141 mmol/L Normal 136-145 [facility] Comment on above: Performed By: #### T TERRI GUPTATRSHIV, CMP #### [facility] [address] [address] [address] Joey Montalvo Urea nitrogen [Mass/Vol] 15.0 mg/dL Normal 7.0-18.0 [facility] Comment on above: Performed By: #### T MAGGIE GUPTA, CMP #### [facility] [address] [address] [address] Joey Montalvo Urea nitrogen/Creatinine [Mass ratio] 22.1 mg/mg Normal [facility] Comment on above: Performed By: #### T TERRI GUPTATRSHIV, CMP #### [facility] [address] [address] [address] Joey Montalvo PROTIMEon 03-23-2022 INR Coag (PPP) [Relative time] 0.99 {INR} Normal [facility] Comment on above: Performed By: #### P TT, PT ####[facility] [address] [place] [address]Dr. Joey Montalvo INR GUIDELINES SEE BELOW Normal [facility] Comment on above: Result Comment: ROSINA RED INR: 2.0 - 3.0 CONDITIONS NOT LISTED BELOW 2.5 - 3.5 FOR PROSTHETIC HEART VALVE REPLACEMENT 2.5 - 3.5 RECURRENT THROMBOSIS Performed By: #### P TT, PT ####[facility] [address] [place] [address]DrUna Montalvo PT Coag (PPP) [Time] 10.5 s Normal 9.0-11.6 [facility] [place] Comment on above: Performed By: #### P TT, PT ####[facility] [address] [place] [address]DrUna Montalvo PTTon 03-23-2022 aPTT Coag (Bld) [Time] 30.9 s Normal 22.3-36.2 [facility] Comment on above: Performed By: #### P TT, PT ####[facility] [address] [place] [address]DrUna Montalvo TROPONIN, HIGH SENSITIVITYon 03-23-2022 HSTROP 13.0 pg/mL Normal 4.0-76.1 [facility] Comment on above: Result Comment: CUT- OFF POINTS HAVE BEEN ESTABLISHED BASED ON THE FOURTH UNIVERSAL DEFINITIONS OF MYOCARDIAL INFARCTION. THE UPPER REFERENCE LIMIT (URL) OF TROPONIN, DEFINED THE 99TH PERCENTILE OF cTnI DISTRIBUTION IN A REFERENCE POPULATION, HAS BEEN CONFIRMED THE DECISION THRESHOLD FOR SC DIAGNOSIS. Performed By: #### T CANDY HSTROPN, CMP #### [facility] [address] [place] [address] Dr. Joey Montalvo TSHon 03-23-2022 TSH 1.451 uIU/mL Normal 0.358-3.740 [facility] Comment on above: Performed By: #### T CANDY HSTROPN, CMP #### [facility] [address] [address] [address] Joey Montalvo URINE MICROSCOPIC ONLYon BACTERIA TRACE Abnormal NONE SEEN [facility] Comment on above: Performed By: #### U MICRO, ERUR ####[facility] [address] [place] [address]Dr. Joey Montalvo Bacteria identified Cx Nom (U) INDICATED Normal [facility] Comment on above: Performed By: #### U MICRO, ERUR ####[facility] [address] [place] [address]Dr. Joey Montalvo CAST NONE SEEN Normal NONE SEEN [facility] Comment on above: Performed By: #### U MICRO, ERUR ####[facility] [address] [place] [address]Dr. Joey Montalvo Crystals LM Nom (Urine sed) NONE SEEN Normal NONE SEEN [facility] Comment on above: Performed By: #### U MICRO, ERUR ####[facility] [address] [place] [address]Dr. Joey Montalvo Epithelial cells LM Ql (Urine sed) RARE Normal NONE SEEN /RARE [facility] Comment on above: Performed By: #### U MICRO, ERUR ####[facility] [address] [place], [place] [address]Dr. Joey Montalvo MUCOUS NONE SEEN Normal NONE SEEN [facility] Comment on above: Performed By: #### U MICRO, ERUR ####[facility] [address] [place], [place] [address]Dr. Jacklynlan Montalvo RBC 0-2 Normal 0-2 [facility] Comment on above: Performed By: #### U MICRO, ERUR ####[facility] [address] [place], [place] [address]Dr. Jacklynlan Montalvo WBC 2-5 Abnormal NONE SEEN [facility] Comment on above: Performed By: #### U MICRO, ERUR ####[facility] [address] [place], [place] [address]Dr. Joey Montalvo XR CHEST 1 Von 03-23-2022 [...] ALEXANDRE SWENSON Date: 2022-03-23 15:02 Normal [facility] XR Knee AP and Lateral and M prachi 11-16-2021 IMPRESSION: Stable appearing right total knee arthroplasty. Cook Jelly: DEEPIKA Transcribe Date/Time: Nov 15 2021 2:58P Dictated by : DIANN MONTGOMERY MD This examination was interpreted and the report reviewed and electronically signed by: MARSHAL STOVALL MD on Nov 16 2021 12:06PM [facility] * * *Final Report* [...] Moderate joint effusion. DIVISION OF RADIOLOGY Provider, [facility] - 11/16/2021 * * *Final Report* * [...] IMPRESSION: Stable appearing right total [facility] arthroplasty. [facility] Trans[facility] Date/Time: Nov 15 2021 2:58P Dictated by : DIANN MONTGOMERY MD This examination was interpreted and the report reviewed and electronically signed by: MARSHAL STOVALL MD on Nov 16 2021 12:06PM EST [facility] XR Knee AP and Lateral and M erchantsOrdered By: Ccf Provider on 11-16-2021 [facility] XR Knee AP and Lateral and M erchantson 11-15-2021 Radiology Study observation (narrative) [facility] XR SHOULDER GENERAL 3V OR MO RE AP/TRUE AP/OTHER RIGHTon 11-08-2021 [facility] XR Shoulder - right 3 Viewso n 11-08-2021 IMPRESSION: Intact reverse total shoulder arthroplasty as described. Cook Jelly: [facility] Transcribe Date/Time: Nov 08 2021 2:12P Dictated by : HALEIGH SORIANO MD This examination was interpreted and the report reviewed and electronically signed by: RUBI RODRIGUEZ MD on Nov 08 2021 2:38PM [facility] * * *Final Report* [...] the cervical spine. DIVISION OF RADIOLOGY Provider, [facility] Karlie Alcaraz - 11/08/2021 * * *Final [...] Intact reverse total shoulder arthroplasty as described. Cook Jelly: [facility] Transcribe Date/Time: Nov 08 2021 2:12P Dictated by : HALEIGH SORIANO MD This examination was interpreted and the report reviewed and electronically signed by: RUBI RODRIGUEZ MD on Nov 08 2021 2:38PM EST [facility] Radiology Study observation (narrative) [facility] XR Shoulder - right 3 ViewsO rdered By: Ccf Provider on 11-08-2021 [facility] LIPID PROFILEon 07-15-2021 CHOL-HDL RATIO NORM SEE BELOW Normal [facility] Comment on above: Result Comment: 3.3 - 4.4 LOW RISK 4.4 - 7.1 AVERAGE RISK 7.1 - 11.0 MODERATE RISK >11.0 HIGH RISK Performed By: #### L IPID, LIVER ####[facility] [address] [place], [place] [address]Ij. Joey Montalvo Cholesterol [Mass/Vol] 124 mg/dL Normal <=200 [facility] [place] Comment on above: Performed By: #### L IPID, LIVER ####[facility] [address] [place], [place] [address]NxUna Montalvo Cholesterol in HDL [Mass/Vol] 40 mg/dL Normal 40-60 [facility] [place] Comment on above: Performed By: #### L IPID, LIVER ####[facility] [address] [place] [id number]. Joey Montalvo Cholesterol in LDL [Mass/Vol] 65.6 mg/dL Normal [facility] [place] Comment on above: Performed By: #### L IPID, LIVER ####[facility] [address] [place] [address]Dr. Joey Montalvo Cholesterol.total/Cho lesterol in HDL [Mass ratio] 3.1 {ratio} Normal [facility] [place] Comment on above: Performed By: #### L IPID, LIVER ####[facility] [address] [place] [id number]. Joey Montalvo HDL NORMAL > or = 60 mg/dl - LO W CARDIOVASCULAR RISK <40 mg/dl - HIGH CARDIOVASCULAR RISK Normal [facility] [place] Comment on above: Performed By: #### L IPID, LIVER ####[facility] [address] [place] [address]Dr. Joey Montalvo LDL CALC NORMAL SEE BELOW Normal [facility] Comment on above: Result Comment: <100 mg/dl OPTIMAL 100 - 129 mg/dl NEAR OR ABOVE OPTIMAL 130 - 159 mg/dl BORDERLINE HIGH 160 - 189 mg/dl HIGH >190 mg/dl VERY HIGH Performed By: #### L IPID, LIVER ####[facility] [address] [place] [id number]. Joey Montalvo Triglyceride [Mass/Vol] 92 mg/dL Normal <=150 [facility] Comment on above: Performed By: #### L IPID, LIVER ####[facility] [address] [place] [id number]. Joey Montalvo VLDL CALC 18.4 mg/dL Normal [facility] [place] Comment on above: Performed By: #### L IPID, LIVER ####[facility] [address] [place] [address]Dr. Joey Montalvo LIVER PROFILEon 07-15-2021 Albumin [Mass/Vol] 3.5 g/dL Normal 3.4-5.0 [facility] Comment on above: Performed By: #### L IPID, LIVER ####[facility] [address] [place] [address]Dr. Joey Montalvo Albumin/Globulin [Mass ratio] 1.0 {ratio} Normal [facility] [place] Comment on above: Performed By: #### L IPID, LIVER ####[facility] [address] [place] [id number]. Joey Montalvo ALP [Catalytic activity/Vol] 77 U/L Normal 46-116 [facility] Comment on above: Performed By: #### L IPID, LIVER ####[facility] [address] [place], [place] [address]Dr. Joey Montalvo ALT [Catalytic activity/Vol] 23 U/L Normal 16-63 [facility] [place] Comment on above: Performed By: #### L IPID, LIVER ####[facility] [address] [place], [place] [address]Dr. Joey Montalvo AST [Catalytic activity/Vol] 10 U/L Critically low 15-37 [facility] [place] Comment on above: Performed By: #### L IPID, LIVER ####[facility] [address] [place], [place] [address]Dr. Joey Montalvo BILI, CONJUGATED 0.2 mg/dL Normal 0.0-0.2 [facility] Comment on above: Performed By: #### L IPID, LIVER ####[facility] [address] [place], [place] [address]Dr. Joey Montalvo Bilirubin [Mass/Vol] 0.6 mg/dL Normal 0.2-1.0 [facility] [place] Comment on above: Performed By: #### L IPID, LIVER ####[facility] [address] [place], [place] [address]Dr. Joey Montalvo Globulin (S) [Mass/Vol] 3.4 g/dL Normal [facility] [place] Comment on above: Performed By: #### L IPID, LIVER ####[facility] [address] [place], [place] [address]Dr. Joey Montalvo Protein [Mass/Vol] 6.9 g/dL Normal 6.4-8.2 [facility] Comment on above: Performed By: #### L IPID, LIVER ####[facility] [address] [place], [place] [address]KaUna Montalvo Automated erythrocytes count in urine sediment (number/area)Ordered By: Stanton Velasco on 06-07-2021 RBC Auto (Urine sed) [#/Area] 5-9 [HPF] [facility] Automated leukocytes count i n urine sediment (number/area)Ordered By: Stanton Velasco on 06-07-2021 WBC Auto (Urine sed) [#/Area] 5-9 [HPF] [facility] Bilirubin Test strip Ql (U)O rdered By: Stanton Velasco on 06-07-2021 Bilirubin Ql (U) Negative Negative [facility] Color Auto (U)Ordered By: Leonides Velasco on 06-07-2021 Color (U) Yellow Yellow [facility] Ketones Auto test strip (U) [Mass/Vol]Ordered By: Stanton Velasco on 06-07-2021 Ketones (U) [Mass/Vol] Negative Negative [facility] Laboratory - UrinalysisOrder ed By: Stanton Velasco on 06-07-2021 Hyaline casts LM Ql (Urine sed) 0-8 [LPF] [facility] Nitrite Test strip Ql (U)Ord ered By: Stanton Velasco on 06-07-2021 Nitrite Ql (U) Negative Negative [facility] Protein Auto test strip (U) [Mass/Vol]Ordered By: Stanton Velasco on 06-07-2021 Protein (U) [Mass/Vol] Negative Negative [facility] Specific gravity Auto test s trip (U) [Rel density]Ordered By: Stanton Velasco on 06-07-2021 Specific gravity (U) [Rel density] 1.017 1.001-1.030 [facility] Squamous epithelial cells de tection in urine sediment by light microscopyOrdered By: Stanton Velasco on 06-07-2021 Epithelial cells.squamous LM Ql (Urine sed) 3-4 [HPF] [facility] Urine bacteria detection by automated methodOrdered By: Stanton Velasco on 06-07-2021 Bacteria Auto Ql (U) None seen None Seen [facility] Urine clarity by refractomet ry automatedOrdered By: Stanton Velasco on 06-07-2021 Clarity Refractometry automated (U) Turbid Clear [facility] Urine glucose measurement by automated test strip (mass/volume)Ordered By: Stanton Velasco on 06-07-2021 Glucose Auto test strip (U) [Mass/Vol] Normal mg/dL Normal [facility] Urine hemoglobin detection b y automated test stripOrdered By: Stanton Velasco on 06-07-2021 Hemoglobin Auto test strip Ql (U) Negative Negative [facility] Urine leukocyte esterase det ection by automated test stripOrdered By: Stanton Velasco on 06-07-2021 Leukocyte esterase Auto test strip Ql (U) 1+ Negative [facility] Urobilinogen Auto test strip (U) [Mass/Vol]Ordered By: Stanton Velasco on 06-07-2021 Urobilinogen (U) [Mass/Vol] Normal mg/dL Normal [facility] pH Auto test strip (U)Ordere d By: Stanton Velasco on 06-07-2021 pH (U) 8.5 [pH] 5.0-9.0 [facility] XR Shoulder - right 3 Viewso n 05-24-2021 IMPRESSION: Intact shoulder arthroplasty. Cook Jelly: PSCB Transcribe Date/Time: May 24 2021 10:14A [...] laura erosions. [id number] _DIVISION OF RADIOLOGY Provider, Chiquis Ziegler [facility] - 05/24/2021 * * *Final Report* [...] laura erosions. IMPRESSION IMPRESSION: Intact shoulder arthroplasty. Cook Jelly: PSCB Transcribe Date/Time: May 24 2021 10:14A Dictated by : RUBI RODRIGUEZ MD This examination was interpreted and the report reviewed and electronically signed by: RUBI RODRIGUEZ MD on May 24 2021 10:14AM EST [facility] Radiology Study observation (narrative) [facility] XR Shoulder - right 3 ViewsO rdered By: Ccf Provider on 05-24-2021 [facility] SARS-CoV-2 RNA Resp Ql BASSAM+p robeon 05-04-2021 SARS-CoV-2 (COVID-19) RNA BASSAM+probe Ql (Resp) COVID 19 RESULT: SARS-CoV-2 (Agent of COVID-19) Not Detected by RT-PCR or equivalent method. This test has been authorized by FDA under an Emergency Use Authorization (EUA). Normal [facility] Hospital Comment on above: Performed By: #### 9 [id number] ####[facility] LABORATORYCLIA [id number] [facility], [place] [id number] [place] [address] CNDSon 05-03-2021 [facility] HNO ID: [id number] Author: NICKIE Garay Service: Orthopaedic Surgery Author Type: Physician Cognos Architect Type: Discharge Summary Filed: 05/04/2021 11:28 AM [...] deficits noted. Cap refill <2 sec, strong county adviser, able to flex/extend digits/wrist. Surgical dressing in [...] twice daily. 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; Essential hypertension; Hyperlipidemia, [...] Dept Phone 05/24/2021 9:30 AM NEHEMIAH GILBERT [facility] [phone] 06/14/2021 9:15 AM KEV FERRELL [place] [phone] SIGNATURE: NICKIE Garay PATIENT NAME: Fahad Soetlo DATE: 05/04/21 TIME: 11:25 AM [facility] NURSING PROGon 05-03-2021 NURSING PROG HNO ID: [id number] Author: Mary Benoit, RN Service: Nursing Author Type: Registered Nurse Type: Nursing Progress Note Filed: 05/03/2021 4:10 PM Note Text: Nursing Progress Note Patient Name: Fahad Sotelo Patient Location: [facility] __ Daily Note: Page sent to the surgical pager [phone]. To update on patient status. SHEYIRT 520- Could you order some laxatives? Hes concerned about a BM and also he is not leaving today. Evaluated by PT AND failed. Recommending SNF. Mary 5550 This note was completed by: Mary Benoit [facility] THERAPY NTon 05-03-2021 THERAPY NT HNO ID: [id number] Author: Leila Nogueira, PT Service: Physical Therapy Author Type: Physical Therapist Type: Therapy (PT/OT/Speech/Resp) Filed: 05/03/2021 2:40 PM Note Text: Physical Therapy Evaluation SERVICE DATE: 05/03/2021 SERVICE TIME: 1352 to 1418 ROOM: [place] [address] Recommended Discharge Disposition: Subacute/SNF Recommended Discharge Disposition [...] normally completes Equipment Owned: Cane;Wheeled Walker;Elevated Toilet Seat;Clinic Office Coordinator;Sock Aid Prior Functional Level: Within Functional Limits Prior Functional Level Comments: Per pt, IND with ADLs, 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 when getting out [...] with: Patient TREATMEN (more content not included)... [facility] THERAPY HNO ID: [id number] Author: Aislinn Huffman OT/Tonio Service: Occupational Therapy Author Type: Occupational Therapist Type: Therapy (PT/OT/Speech/Resp) Filed: 05/03/2021 2:39 PM Note Text: Occupational Therapy Evaluation SERVICE DATE: 05/03/2021 SERVICE TIME: 1023 to 1155 ROOM: [place] [address] Recommended Discharge Disposition: Subacute/SNF Recommended Discharge Disposition [...] normally completes Equipment Owned: Cane;Wheeled Walker;Elevated Toilet Seat;Clinic Office Coordinator;Sock Aid Prior Functional Level: Within Functional Limits Prior Functional Level Comments: Per pt, IND with ADLs, 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 when getting out [...] symptoms and signs-other Interventions Provided: Evaluation;Therapeutic Exercise (57630);Self Fci Management (58505) $ Evaluation-Modera (more content not included)... [facility] ANES POSTPROC EVALon 022 ANES POSTPROC EVAL HNO ID: [id number] Author: Vipul Do MD Service: Anesthesiology Author [...] May 02, 2021 TIME: 3:18 PM CSN: [id number] [facility] ANES PRE-OPon 05-02-2021 ANES PRE-OP HNO ID: [id number] Author: Vipul Do MD Service: Anesthesiology Author [...] and consent discussed: yes. Patient / Responsible Libertarian agrees to proceed: yes Patient / Surrogate [...] May 02, 2021 TIME: 7:13 AM CSN: [id number] [facility] BRIEF OP NOTon 05-02-2021 BRIEF OP NOT HNO ID: [id number] Author: Kev Ferrell MD Service: Orthopaedic Surgery Author Type: Physician Type: Brief Op Note Filed: 05/02/2021 10:15 AM Note Text: BRIEF OPERATIVE / PROCEDURE NOTE LOG ID: [id number] SURGERY/PROCEDURE DATE: 05/02/2021 INCISION/PROCEDURE START TIME: 8:23 AM INCISION CLOSE/PROCEDURE END TIME: 10:10 AM SURGEON(S)/PROCEDURALI ST(S) AND MEDIA PLANNER(S): Surgeon(s) and Role: * Kev Ferrell MD - Primary * Kimani Gutierres MD - Assisting Physician Cognos Architect: Nehemiah Gilbert PA-C SURGERY/PROCEDURE(S): Right Reverse Total Shoulder Arthroplasty Biceps Tenodesis ANESTHESIA: General/ GET With Scalene Catheter FINDINGS: RCT OA ESTIMATED BLOOD LOSS: 100 mls SPECIMENS: None COMPLICATIONS: None IMPLANTS: Hayden BiometComprehensive Reverse TSR PRE-OP/PRE-PROCEDURE DIAGNOSIS: Non Traumatic RCT, OA, Rotator Cuff Arthropathy POST-OP/POST-PROCEDURE DIAGNOSIS: Same as Preop SIGNATURE: Kev Ferrell MD PATIENT NAME: Fahad Sotelo DATE: May 02, 2021 TIME: 10:06 AM [facility] NURSING PROGon 05-02-2021 NURSING PROG HNO ID: [id number] Author: Ana Lal RN Service: ? Author Type: Registered Nurse Type: Nursing Progress Note Filed: 05/02/2021 7:57 PM Note Text: Nursing Progress Note Patient Name: Fahad Sotelo Patient Location: [place] [address] [address] __ Daily Note: Admitted from PACU s/p right reversed shoulder. alert and oriented X 3, pleasant. No c/o pain at this time. Good PO intake. Skin checks done with LEATHA Hernandez. No pressure ulcer noted. This note was completed by: Ana Lal [facility] OPERATIVE NOon 05-02-2021 OPERATIVE NO HNO ID: [id number] Author: Kev Ferrell MD Service: Orthopaedic Surgery Author Type: Physician Type: Operative Report Filed: 05/04/2021 9:35 AM Note Text: [facility] - Operative Report FAHAD SOTELO : 1950 AGE: 70. SEX: M PATIENT TYPE: A HOSP SVC: [facility] LOCATION: [facility] ATTENDING PHYSICIAN: Kev Ferrell MD CSN NUMBER: [id number] DATE OF SURGERY/PROCEDURE: 05/02/2021 INCISION/PROCEDURE START TIME: 0823 hours. INCISION CLOSE/PROCEDURE END TIME: 1010 hours. PREOPERATIVE DIAGNOSIS: 1. Right shoulder rotator cuff arthropathy. 2. Chronic nontraumatic rotator cuff tear. 3. Osteoarthritis. POSTOPERATIVE DIAGNOSIS: 1. Right shoulder rotator cuff arthropathy. 2. Chronic nontraumatic rotator cuff tear. 3. Osteoarthritis. SURGEON: Kev Ferrell MD MEDIA PLANNER: 1. Kimani Gutierres M.D. Dr. Gutierres assisted in all aspects of the procedure. His assistance was critical for the procedure. 2. Nehemiah Gilbert PA-C. No qualified resident available. Mr. Sowpp assisted in positioning the patient, retraction, and [...] had good (more content not included)... [facility] XR SHOULDER 2V AP/TRUE AP RT [...] to right shoulder arthroplasty with anatomic alignment. Cook Jelly: DEEPIKA Transcribe Date/Time: May 02 2021 11:53A Dictated by : KIZZY COLEMAN MD This examination was interpreted and the report reviewed and electronically signed by: KIZZY COLEMAN MD on May 02 2021 11:53AM EST [id number] [facility] CT SHOULDER WO IVCON RTon [facility] XR Shoulder - right 4 Viewso n 12-21-2020 IMPRESSION: Findings consistent with chronic rotator cuff tear and mild cuff arthropathy. Cook Jelly: DEEPIKA Transcribe Date/Time: Dec 21 2020 11:51A [...] superior joint capsule. DIVISION OF RADIOLOGY Provider, Chiquis Ziegler [facility] - 12/21/2020 * * *Final Report* [...] rotator cuff tear and mild cuff arthropathy. Cook Jelly: DEEPIKA Transcribe Date/Time: Dec 21 2020 11:51A Dictated by : FELIX SANDOVAL, This examination was interpreted and the report reviewed and electronically signed by: ENID SMITH MD on Dec 21 2020 3:31PM EST [facility] Radiology Study observation (narrative) [facility] XR Shoulder - right 4 ViewsO rdered By: Ccf Provider on 12-21-2020 [facility] MR Shoulder - right WO kamar doll 08-10-2020 IMPRESSION: 1. Complete retracted tear of the supraspinatus and infraspinatus tendons and superimposed infraspinatus muscle strain 2. Subscapularis tendinosis and partial tear 3. Diffuse biceps tendinosis and moderate partial tear 3. Glenohumeral osteoarthritis with degeneration of the labrum and joint effusion Cook Jelly: [facility] Transcribe Date/Time: Aug 10 2020 1:18P Dictated by : GASPER KNIGHT MD This examination was interpreted and the report reviewed and electronically signed by: GASPER KNIGHT MD on Aug 10 2020 1:23PM [facility] DIVISION OF RADIOLOGY * * *Final Report* [...] posterolateral humeral head. DIVISION OF RADIOLOGY Provider, [facility] Karlie [facility] - 08/10/2020 * * *Final Report* * [...] degeneration of the labrum and joint effusion Cook Jelly: [facility] Transcribe Date/Time: Aug 10 2020 1:18P Dictated by : GASPER KNIGHT MD This examination was interpreted and the report reviewed and electronically signed by: GASPER KNIGHT MD on Aug 10 2020 1:23PM EST [facility] Radiology Study observation (narrative) [facility] MR Shoulder - right WO contr astOrdered By: Ccf Provider on 08-10-[address] [facility] [address] LUMBAR SPINE WO IVCONon 0 06-29-2020 [facility] XR Pelvis and Hip - right AP and Lateral frogon 04-15-2020 IMPRESSION: Bilateral hip joint degenerative changes as described. Cook Jelly: PSCB Transcribe Date/Time: Apr 15 2020 4:27P Dictated by : MARSHAL STOVALL MD This examination was interpreted and the report reviewed and electronically signed by: MARSHAL STOVALL MD on Apr 15 2020 4:29PM [facility] DIVISION OF RADIOLOGY * * *Final Report* [...] other significant abnormality. DIVISION OF RADIOLOGY Provider, [facility] Karlie [facility] - 04/15/2020 * * *Final Report* [...] Bilateral hip joint degenerative changes as described. Cook Jelly: PSCB Transcribe Date/Time: Apr 15 2020 4:27P Dictated by : MARSHAL STOVALL MD This examination was interpreted and the report reviewed and electronically signed by: MARSHAL STOVALL MD on Apr 15 2020 4:29PM EST [facility] Radiology Study observation (narrative) [facility] XR Pelvis and Hip - right AP and Lateral frogOrdered By: Ccf Provider on 04-15-2020 [facility] Vital Signs Date Time Vital Sign Value Performing Clinician Facility 10-24-2024 09:33-0400 Body height 177.8 cm Stanton Velasco MD Work Phone: [facility] 10-24-2024 09:33-0400 Body mass index (BMI) [Ratio] 31.28 kg/m2 Stanton Velasco MD Work Phone: [facility] 10-24-2024 09:33-0400 Body weight 98.88 kg Stanton Velasco MD Work Phone: [facility] 10-24-2024 09:33-0400 Diastolic blood pressure 70 mm[Hg] Stanton Velasco MD Work Phone: [facility] 10-24-2024 09:33-0400 Heart rate 64 /min Stanton Velasco MD Work Phone: [facility] 10-24-2024 09:33-0400 SaO2% (BldA) [Mass fraction] 94 % Stanton Velasco MD Work Phone: [facility] 10-24-2024 09:33-0400 Systolic blood pressure 114 mm[Hg] Stanton Velasco MD Work Phone: [facility] 10-17-2024 09:19-0400 Body height 177.8 cm Stanton Velasco MD Work Phone: [facility] 10-17-2024 09:19-0400 Body mass index (BMI) [Ratio] 31.28 kg/m2 Stanton Velasco MD Work Phone: [facility] 10-17-2024 09:19-0400 Body weight 98.88 kg Stanton Velasco MD Work Phone: [facility] 10-17-2024 09:19-0400 Diastolic blood pressure 72 mm[Hg] Stanton Velasco MD Work Phone: [facility] 10-17-2024 09:19-0400 Heart rate 59 /min Stanton Velasco MD Work Phone: [facility] 10-17-2024 09:19-0400 SaO2% (BldA) [Mass fraction] 97 % Stanton Velasco MD Work Phone: [facility] 10-17-2024 09:19-0400 Systolic blood pressure 120 mm[Hg] Stanton Velasco MD Work Phone: [facility] 06-30-2024 12:01-0400 Blood Pressure Location Azucenapasha Fedezoie [facility] 06-30-2024 12:01-0400 Diastolic blood pressure 63 mm[Hg] Armaanheri Solorio [facility] 06-30-2024 12:01-0400 Heart rate 58 /min Azucenapasha Solorio [facility] 06-30-2024 12:01-0400 Systolic blood pressure 115 mm[Hg] Azucenad Lyndsey [facility] 04-16-2024 14:21-0500 Body height 177.8 cm Sukumar Mack SEMIAUTOMATIC TAPER OPERATOR Work Phone: [facility] 04-16-2024 14:21-0500 Body mass index (BMI) [Ratio] 31.41 kg/m2 Sukumar Mack SEMIAUTOMATIC TAPER OPERATOR Work Phone: [facility] 04-16-2024 14:21-0500 Body weight 99.29 kg Sukumar Mack SEMIAUTOMATIC TAPER OPERATOR Work Phone: [facility] 04-16-2024 14:21-0500 Diastolic blood pressure 64 mm[Hg] Sukumar Mack SEMIAUTOMATIC TAPER OPERATOR Work Phone: [facility] 04-16-2024 14:21-0500 Heart rate 68 /min Sukumar Mack SEMIAUTOMATIC TAPER OPERATOR Work Phone: [facility] 04-16-2024 14:21-0500 Respiratory rate 16 /min Sukumar Mack SEMIAUTOMATIC TAPER OPERATOR Work Phone: [facility] 04-16-2024 14:21-0500 SaO2% (BldA) [Mass fraction] 96 % Sukumar Mack SEMIAUTOMATIC TAPER OPERATOR Work Phone: [facility] 04-16-2024 14:21-0500 Systolic blood pressure 108 mm[Hg] Sukumar Mack SEMIAUTOMATIC TAPER OPERATOR Work Phone: [facility] 04-03-2024 11:29-0500 Body height 177.8 cm Christina Hemmer PA Work Phone: [facility] 04-03-2024 11:29-0500 Body mass index (BMI) [Ratio] 31.91 kg/m2 Christina Hemmer PA Work Phone: [facility] 04-03-2024 11:29-0500 Body weight 100.88 kg Christina Hemmer PA Work Phone: [facility] 04-03-2024 11:29-0500 Diastolic blood pressure 72 mm[Hg] Christina Hemmer PA Work Phone: [facility] 04-03-2024 11:29-0500 Heart rate 65 /min Christina Hemmer PA Work Phone: [facility] 04-03-2024 11:29-0500 Respiratory rate 16 /min Christina Hemmer PA Work Phone: [facility] 04-03-2024 11:29-0500 SaO2% (BldA) [Mass fraction] 97 % Christina Hemmer PA Work Phone: [facility] 04-03-2024 11:29-0500 Systolic blood pressure 108 mm[Hg] Christina Hemmer PA Work Phone: [facility] 03-07-2024 08:50-0500 Body height 177.8 cm Stanton Velasco MD Work Phone: [facility] 03-07-2024 08:50-0500 Body mass index (BMI) [Ratio] 32 kg/m2 Stanton Velasco MD Work Phone: [facility] 03-07-2024 08:50-0500 Body weight 101.15 kg Stanton Velasco MD Work Phone: [facility] 03-07-2024 08:50-0500 Diastolic blood pressure 66 mm[Hg] Stanton Velasco MD Work Phone: [facility] 03-07-2024 08:50-0500 Heart rate 59 /min Stanton Velasco MD Work Phone: [facility] 03-07-2024 08:50-0500 SaO2% (BldA) [Mass fraction] 96 % Stanton Velasco MD Work Phone: [facility] 03-07-2024 08:50-0500 Systolic blood pressure 122 mm[Hg] Stanton Velasco MD Work Phone: [facility] 02-15-2024 09:10-0500 Body height 177.8 cm Stanton Velasco MD Work Phone: [facility] 02-15-2024 09:10-0500 Body mass index (BMI) [Ratio] 32 kg/m2 Stanton Velasco MD Work Phone: [facility] 02-15-2024 09:10-0500 Body weight 101.15 kg Stanton Velasco MD Work Phone: [facility] 02-15-2024 09:10-0500 Diastolic blood pressure 74 mm[Hg] Stanton Velasco MD Work Phone: [facility] 02-15-2024 09:10-0500 Heart rate 64 /min Stanton Velasco MD Work Phone: [facility] 02-15-2024 09:10-0500 SaO2% (BldA) [Mass fraction] 95 % Stanton Velasco MD Work Phone: [facility] 02-15-2024 09:10-0500 Systolic blood pressure 128 mm[Hg] Stanton Velasco MD Work Phone: [facility] 12-12-2023 13:22-0400 Diastolic blood pressure 72 mm[Hg] Louie Salomon MD Work Phone: [facility] 12-12-2023 13:22-0400 Heart rate 63 /min Louie Salomon MD Work Phone: [facility] 12-12-2023 13:22-0400 Systolic blood pressure 130 mm[Hg] Louie Salomon MD Work Phone: [facility] 11-02-2023 11:03-0400 Body height 177.8 cm Stanton Velasco MD Work Phone: [facility] 11-02-2023 11:03-0400 Body mass index (BMI) [Ratio] 31.71 kg/m2 Stanton Velasco MD Work Phone: [facility] 11-02-2023 11:03-0400 Body weight 100.25 kg Stanton Velasco MD Work Phone: [facility] 11-02-2023 11:03-0400 Diastolic blood pressure 76 mm[Hg] Stanton Velasco MD Work Phone: [facility] 11-02-2023 11:03-0400 Heart rate 78 /min Stanton Velasco MD Work Phone: [facility] 11-02-2023 11:03-0400 SaO2% (BldA) [Mass fraction] 94 % Stanton Velasco MD Work Phone: [facility] 11-02-2023 11:03-0400 Systolic blood pressure 128 mm[Hg] Stanton Velasco MD Work Phone: [facility] 07-05-2023 09:41-0400 Body height 176.5 cm Pacc 1 Work Phone: [facility] 07-05-2023 09:41-0400 Body mass index (BMI) [Ratio] 32.73 kg/m2 Pacc 1 Work Phone: [facility] 07-05-2023 09:41-0400 Body temperature 97.9 [degF] Pacc 1 Work Phone: [facility] 07-05-2023 09:41-0400 Body weight 102 kg Pacc 1 Work Phone: [facility] 07-05-2023 09:41-0400 Diastolic blood pressure 70 mm[Hg] Pacc 1 Work Phone: [facility] 07-05-2023 09:41-0400 Heart rate 65 /min Pacc 1 Work Phone: [facility] 07-05-2023 09:41-0400 Respiratory rate 16 /min Pacc 1 Work Phone: [facility] 07-05-2023 09:41-0400 SaO2% (BldA) [Mass fraction] 97 % Pacc 1 Work Phone: [facility] 07-05-2023 09:41-0400 Systolic blood pressure 124 mm[Hg] Pacc 1 Work Phone: [facility] 06-20-2023 10:19-0400 Diastolic blood pressure 70 mm[Hg] Louie Salomon MD Work Phone: [facility] 06-20-2023 10:19-0400 Heart rate 64 /min Louie Salomon MD Work Phone: [facility] 06-20-2023 10:19-0400 Systolic blood pressure 128 mm[Hg] Louie Salomon MD Work Phone: [facility] 06-04-2023 11:39-0400 Body temperature 97.3 [degF] Radha Ramos MD Work Phone: [facility] 06-04-2023 11:39-0400 Diastolic blood pressure 63 mm[Hg] Radha Ramos MD Work Phone: [facility] 06-04-2023 11:39-0400 Heart rate 61 /min Radha Ramos MD Work Phone: [facility] 06-04-2023 11:39-0400 Systolic blood pressure 120 mm[Hg] Radha Ramos MD Work Phone: [facility] Encounters Encounter Date Encounter Type Care Provider Facility Start: 10-28-2024 End: 10-28-2024 Clinisync Result Encounter Generic External Data Provider [facility] External Department Unsolicited Start: 10-28-2024 End: 10-28-2024 Clinisync Result Encounter Generic External Data Provider [facility] External Department Unsolicited Start: 10-28-2024 End: 10-28-2024 Patient encounter procedure Juan Leonardo RT(R) Radiology Comment on above: Closed nondisplaced fracture of acromial end of right clavicle with routine healing, subsequent encounter (Primary Dx) Start: 10-28-2024 End: 10-28-2024 ambulatory Juan Leonardo RT(R) Radiology Comment on above: Radiology XR Start: 10-28-2024 End: 10-28-2024 Subsequent hospital visit by physician Georgina Gonzalez 1 Work Phone: Radiology Comment on above: Closed nondisplaced fracture of acromial end of right clavicle with routine healing, subsequent encounter [S42.034D] Start: 10-24-2024 End: 10-24-2024 Bamboo flowsheet Stanton Velasco MD Work Phone: [facility] Start: 10-24-2024 End: 10-24-[address] [employer] (W[employer]heet Stanton Velasco MD Work Phone: [facility] Start: 10-24-2024 End: 10-24-2024 Patient encounter procedure Chris Clements MD Work Phone: General Surgery Comment on above: Unilateral groin brielle n (Primary Dx); Right inguinal hernia Start: 10-24-2024 End: 10-24-2024 ambulatory STANTON VELASCO II Facility:[facility] Start: 10-24-2024 End: 10-24-2024 Office outpatient visit 15 minutes Stanton Velasco MD Work Phone: [facility] Comment on above: Left-sided chest brielle n (Primary Dx); 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 Start: 10-24-2024 End: 10-24-2024 ambulatory STANTON VELASCO Not Available Start: 10-22-2024 End: 10-22-2024 ambulatory [facility] Start: 10-20-2024 End: 10-20-2024 Clinisync Result Encounter Stanton Velasco MD Work Phone: [facility] External Department Unsolicited Start: 10-20-2024 End: 10-20-2024 Clinisync Result Encounter Stanton Velasco MD Work Phone: [facility] External Department Unsolicited Start: 10-17-2024 End: 10-17-2024 Office outpatient visit 25 minutes Stanton Velasco MD Work Phone: [facility] Comment on above: Left-sided chest brielle n (Primary Dx); 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 ; Chronic ischemic heart disease Start: 10-17-2024 End: 10-17-2024 ambulatory STANTON VELASCO Not Available Start: 09-19-2024 End: 09-19-2024 Clinisync Result Encounter Generic External Data Provider [facility] External Department Unsolicited Start: 09-19-2024 End: 09-19-2024 Clinisync Result Encounter Generic External Data Provider [facility] External Department Unsolicited Start: 09-19-2024 End: 09-19-2024 Subsequent hospital visit by physician Georgina Gonzalez 1 Work Phone: Radiology Comment on above: Closed nondisplaced fracture of acromial end of right clavicle, initial encounter [S42.034A] Start: 09-19-2024 End: 09-19-2024 ambulatory STANTON VELASCO II Facility:[facility] Start: 08-29-2024 End: 08-29-2024 Clinisync Result Encounter [...] to same day surgery center Kristal Hare APRN.COMMERCIAL REAL ESTATE MANAGER Work Phone: Colorectal Surgery Comment on above: Manometry Start: 08-26-2024 End: 08-26-2024 Patient encounter procedure Kristal Hare APRN.COMMERCIAL REAL ESTATE MANAGER Work Phone: Colorectal Surgery Comment on above: Obstructive defecati on (HCC) (Primary Dx); High-tone pelvic floor dysfunction; Constipation due to outlet dysfunction Start: 08-26-2024 End: 08-26-2024 ambulatory STANTON VELASCO II Facility:[facility] Start: 08-18-2024 End: 08-18-2024 Clinisync Result Encounter Stanton Velasco MD Work Phone: [facility] External Department Unsolicited Start: 08-18-2024 End: 08-18-2024 Clinisync Result Encounter Stanton Velasco MD Work Phone: [facility] External Department Unsolicited Start: 06-30-2024 End: 06-30-2024 ambulatory Forest Solorio Facility:[facility] Start: 06-30-2024 End: 06-30-2024 Patient encounter procedure Forest Solorio [facility] Start: 06-06-2024 End: 06-06-2024 Clinisync Result Encounter Generic External Data Provider [facility] External Department Unsolicited Start: 06-06-2024 End: 06-06-2024 Clinisync Result Encounter Generic External Data Provider [facility] External Department Unsolicited Start: 05-21-2024 End: 05-21-2024 ambulatory [facility] Start: 05-14-2024 End: 05-15-2024 ambulatory Forest TeresaUna Solorio Facility[facility] Start: 05-14-2024 End: 05-15-2024 Patient encounter procedure Armaanliliyapasha TeresaUna Fedezoie [facility] Start: 05-14-2024 End: 05-14-2024 ambulatory Forest TeresaUna Solorio Facility:[facility] Start: 05-09-2024 ambulatory Azucenapasha Fedezoie Facilit y:[facility] Start: 05-05-2024 End: 05-05-2024 ambulatory Azucenapasha TeresaUna Fedezoie Facility:[facility] Start: 04-16-2024 End: 04-16-2024 Office outpatient visit 25 minutes Sukumar Mack SEMIAUTOMATIC TAPER OPERATOR Work Phone: [facility] Comment on above: Constipation, unspec ified constipation type (Primary Dx); Chronic obstructive pulmonary disease, unspecified (CMS/HCC) Start: 04-16-2024 End: 04-16-2024 ambulatory SUKUMAR MACK Not Available Start: 04-16-2024 End: 04-16-2024 Bamboo flowsheet Sukumar Mack SEMIAUTOMATIC TAPER OPERATOR Work Phone: [facility] Start: 04-16-2024 End: 04-16-2024 Bamboo flowsheet Sukumar Mack SEMIAUTOMATIC TAPER OPERATOR Work Phone: [facility] Start: 04-11-2024 End: 04-11-2024 ambulatory STANTON VELASCO II Facility:[facility] Start: 04-11-2024 End: 04-11-2024 Patient encounter [...] Not Available Start: 02-26-2024 End: 02-26-2024 ambulatory FADY DYE Facility:[facility] Start: 02-25-2024 End: 02-28-2024 Telephone encounter Fday Dye MD Work Phone: Urology Comment on above: Fax Piedad - [facility] Start: 02-22-2024 End: 02-22-2024 Telephone encounter Fady Dye MD Work Phone: Urology Comment on above: Hand Salter - O ther Start: 02-18-2024 End: 02-19-2024 [...] Dx); ACP (advance care planning); 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 (CMS/HCC); Benign essential [...] Start: 01-25-2024 End: 01-25-2024 ambulatory Suzanna Macdonald Facility:[facility] Start: 01-17-2024 End: 01-17-2024 ambulatory STANTON VELASCO II Facility:[facility] Start: 01-17-2024 End: 01-17-2024 Patient encounter [...] Start: 12-12-2023 End: 12-12-2023 ambulatory LOUIE SALOMON Facility:[facility] Start: 11-13-2023 End: 11-13-2023 Telephone encounter [...] (P rimary Dx) Start: 08-17-2023 Refill Daija Lares PA-C Work Phone: Urology Comment on above: Refill Request Start: 08-15-2023 Orders Only Daija Octavia PA-C Work Phone: Urology Comment on above: Dysuria (Primary Dx) Returning Patient's Call Start: 08-09-2023 Telephone encounter Corry stanley APRN.COMMERCIAL REAL ESTATE MANAGER Work Phone: Urology Start: 08-02-2023 End: 08-02-2023 ambulatory STANTON B VELASCO Facility:[facility] Start: 07-11-2023 Telephone encounter Louie Perales MD Work Phone: Urology Start: 07-05-2023 End: 07-05-2023 Admission to establishment [facility] 1 Work Phone: Pre Anesthesia Start: 07-05-2023 End: 07-05-2023 [facility] Work Phone: [facility] Comment on above: Pre-op evaluation (P rimary Dx); Coronary artery disease involving grindstone coronary artery of grindstone heart without angina pectoris; Mixed hyperlipidemia; Essential hypertension; Urge incontinence; Cervical spondylosis with myelopathy; Obesity, Class I, BMI 30-34.9 Start: 07-05-2023 End: 07-05-2023 Preprocedural examination done Pac [place] 1 Work Phone: [facility] Work Phone: Start: 06-20-2023 End: 06-20-2023 Patient encounter procedure Louie Salomon MD Work Phone: Urology Comment on above: 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, unspecified stricture type (Primary Dx); Urinary urgency; Low bladder compliance; Urinary frequency Start: 06-20-2023 End: 06-20-2023 ambulatory STANTON B VELASCO Facility:[facility] Start: 06-10-2023 Telephone encounter Radha Ramos MD Work Phone: Urology Comment on above: Patient Update Start: 06-08-2023 End: 06-08-2023 Patient encounter procedure Nurse U[facility] Work Phone: Urology Comment on above: Stricture [...] urinary condition (Primary Dx) Start: 05-22-2023 Refill Nehemiahmaricel ríos PA-C Work Phone: Orthopaedics Comment on above: Refill Request Start: 05-15-2023 End: 05-15-2023 Patient encounter procedure Nithya Rhodes PA-C Work Phone: Urology Comment on above: Stricture of urethra l meatus in male, unspecified stricture type (Primary Dx) Start: 06-23-2022 ambulatory Kirstin Echeverria RT(R) Radi ology Comment on above: Radiology XR Start: 06-23-2022 End: 06-23-2022 Patient encounter procedure Kirstin Echeverria RT(R) [facility] Comment on above: Rotator cuff dysfunc tion, left (Primary Dx); History of failed repair of rotator cuff; Left shoulder pain, unspecified chronicity Start: 06-23-2022 End: 06-23-2022 Subsequent hospital visit by physician Georgina Dixon Work Phone: Radiology Comment on above: Left [...] right [Z96.611] Start: 11-07-2021 Telephone encounter Nurse Urotonio brown [facility] Comment on above: Appointment Start: 10-31-2021 Telephone encounter Fady romano MD Work Phone: Urology Comment on above: Orders Start: 10-13-[address] WATSON CENTENO Facility:[facility] Start: 07-15-2021 End: 07-16-[address] STANTON VELASCO Facility:[facility] Start: 06-23-2021 Telephone encounter Fady romano MD Work Phone: Urology Comment on above: request for cath sup plies Start: 06-16-2021 ambulatory No Pcp Teoate C Freedu.in Start: 06-14-2021 End: 06-14-2021 Patient encounter procedure Kev Ferrell MD Work Phone: Orthopaedics Comment on above: S/P reverse total sh oulder arthroplasty, right (Primary Dx) Start: 06-07-2021 End: 06-07-2021 Patient encounter procedure KUSHAL Velasco Work Phone: [facility] Start: 05-24-2021 ambulatory Juan Leonardo RT(R) Radi yesi Comment on above: Radiology XR Start: 05-24-2021 End: 05-24-2021 Patient encounter procedure Juan Leonardo RT(R) ORTH [facility] Comment on above: S/P reverse total sh oulder arthroplasty, right (Primary Dx) Start: 05-24-2021 End: 05-24-2021 Subsequent hospital visit by physician Georgina Gonzalez 1 Work Phone: Radiology Comment on above: Nontraumatic complet e tear of right rotator cuff [M75.121] Start: 05-16-2021 Orders Only Vivien Cross MA Orth opaedics Comment on above: Nontraumatic complet e tear of right rotator cuff (Primary Dx) Start: 05-09-2021 Telephone encounter Kev valencia MD Work Phone: Orthopaedics Comment on above: Patient Question Start: 04-12-2021 End: 05-23-2023 Preprocedural examination done Kev Ferrell MD Work Phone: [facility] Work Phone: Start: 01-04-2021 End: 01-04-2021 Subsequent hospital visit by physician Ct [facility] Work Phone: Radiology Comment on above: Nontraumatic complet e tear of right rotator cuff [M75.121] Start: 12-21-2020 End: 12-21-2020 Subsequent hospital visit by physician Georgina Gonzalez 1 Work Phone: Radiology Comment on above: Right shoulder pain, unspecified chronicity [M25.511] Start: 08-10-2020 End: 08-10-2020 Subsequent hospital visit by physician Mri [facility] (1.5t) Work Phone: Radiology Comment on above: Nontraumatic tear of right rotator cuff, unspecified tear extent [M75.101] Start: 06-29-2020 End: 06-29-2020 Subsequent hospital visit by physician [facility] Work Phone: Radiology Comment on above: History of lumbar fu sendy [Z98.1] Start: 04-15-2020 End: 04-15-2020 Subsequent hospital visit by physician Georgina Gonzalez 1 Work Phone: Radiology Comment on above: Pain in right hip [M 25.551] Start: 10-14-2019 End: 10-15-2019 Patient encounter procedure BOZENA DOMINGO Facility:[facility] Start: 05-04-2017 End: 05-23-2023 Patient encounter status Kev Ferrell MD Work Phone: [facility] Work Phone: Procedures Date Procedure Procedure Detail Performing Clinician Start: 10-28-2024 Radex clavicle complete Nehemiah Gilbert PA-C Work Phone: Start: 10-28-2024 XR CLAVICLE 2V RT Gener ic External Data Provider Start: 10-24-2024 Follow-up visit Follow Up CHRIS CLEMENTS Start: 10-20-2024 XR CHEST 2V Stanton gutiérrez MD Work Phone: Start: 09-19-2024 Radex clavicle complete Nehemiah FU-C Work Phone: Start: 09-19-2024 XR CLAVICLE 2V RT Gener ic External Data Provider Start: 08-29-2024 Radex shoulder compl ete minimum 2 views Kev Ferrell MD Work Phone: Start: 08-29-2024 XR SHLDR 4V AP/LUCITA/LAT/OUTLET RT Generic External Data Provider Start: 08-26-2024 ADULT MAINE ANORECTAL MANOMETRY Kristalcherry Hare APRN.COMMERCIAL REAL ESTATE MANAGER Work Phone: Start: 08-18-2024 XR SHOULDER RT [...] panel - S jodee or Plasma Nithya Rhodes PA-C Work Phone: Start: 04-04-2023 Colonoscopy Stanton pozo MD Work Phone: Start: 08-21-2022 History of operative procedure on knee History of right knee joint replacement Stanton Velasco MD Work Phone: Start: 06-23-2022 Radex shoulder compl ete minimum 2 views Nehemiah Gilbert PA-C Work Phone: Start: 05-31-2022 Urnls dip stick/tabl et rgnt auto w/o microscopy Radha Ramos MD Work Phone: Start: 11-15-2021 Radiologic examinati on knee 3 views Kev Ferrell MD Work Phone: Start: 11-08-2021 Radex shoulder compl ete minimum 2 views Nehemiah Ofelia PA-C Work Phone: Start: 10-12-2021 Colonoscopy Nithya Yancey el PA-C Work Phone: Start: 06-07-2021 Urine culture II Stanton Velasco Work Phone: Start: 05-24-2021 Radex shoulder compl ete minimum 2 views Nehemiah Ofelia PA-C Work Phone: Start: 05-04-2021 End: 05-23-2023 H/O: artificial joint Aftercare following joint replacement surgery Stanton Velasco MD Work Phone: Start: 12-21-2020 Radex shoulder compl ete minimum 2 views Nehemiah Ofelia PA-C Work Phone: Start: 08-10-2020 Mri any [...] of failed repair of rotator cuff Nehemiah Ofelia PA-C Work Phone: Knee region structur e (body structure) [facility] Open heart surgery Forest roberto Shoulder region stru cture (body structure) [facility] Stent, device (physi deonte object) [facility] Comment on above: heart Plan of Treatment Date Care Activity Detail Author Start: 04-04-2033 Screening for malignant neoplasm of colon [facility] Start: 09-09-2031 Urine microalbumin profile DTaP,Tdap,Td Vaccine (3 - Td or Tdap) [facility] Start: 04-06-2028 Lipid panel Lipid Screening [facility] Start: 07-04-2026 Diabetes Screening Diabetes Screening [facility] Start: 02-25-2025 BP Controlled (<130/80) BP Controlled (<130/80) [facility] Start: 02-14-2025 Medicare Annual Wellness (AWV) Medicare Annual Wellness (AWV) [facility] Start: 01-02-2025 End: 01-02-2025 Patient encounter procedure 01/02/2025 11:00 AM EST Office Visit Orthopaedics [address] [facility] [place] [address] [place] [address] [place] [id number] 2.sw Orthopaedics Comment on above: 2.sw Start: 10-28-2024 End: 10-28-2024 Patient encounter procedure Orthopaedics Comment on above: 1 month follow up -right shoulder right clavicle follow up right clav icle fx Start: 10-24-2024 End: 10-24-2024 Patient encounter procedure [facility] Jef Marshalpa Comment on above: Arrived Start: 10-17-2024 End: 10-17-2025 XR Chest 2 Views XR chest 2 views Imaging Routine Left-sided chest pain Expected: 10/17/2024, Expires: 10/17/2025 [facility] Work Phone: Comment on above: Expected: 10/17/2024, Expires: Start: 10-13-2024 Influenza vaccination Influenza Vaccine (#1) [facility] Start: 09-19-2024 End: 09-19-2024 Patient encounter procedure 09/19/2024 10:00 AM EDT Office Visit Orthopaedics [address] [place], [place] [address], [place] [address] Kev Ferrell MD [address] [facility] [address] 3 week follow up -right shoulder Orthopaedics Comment on above: 3 week follow up -right shoulder Start: 08-29-2024 End: 08-29-2024 Patient encounter procedure Orthopaedics Comment on above: Fractured Clavicle (R) 5 views right should er Start: 07-04-2024 BP Controlled (<130/80) BP Controlled (<130/80) [facility] Start: 06-19-2024 BP Controlled (<130/80) BP Controlled (<130/80) [facility] Start: 06-03-2024 BP Controlled (<130/80) BP Controlled (<130/80) [facility] Start: 05-22-2024 Medicare Annual Wellness (AWV) Medicare Annual Wellness (AWV) [facility] Start: 05-11-2024 Covid-19 Vaccine () Covid-19 Vaccine () [facility] Start: 04-16-2024 End: 04-16-2024 Patient encounter procedure 04/16/2024 2:30 PM EST Office Visit [facility] [address] [facility] [address] [place] [phone] Sukumar Mack, SEMIAUTOMATIC TAPER OPERATOR [address] [facility] [address] [place] [address] Arrived [facility] Comment on above: Arrived Start: 04-12-2024 DIABETES SCREEN DIABETES SCREEN [facility] Start: 04-12-2024 Diabetes Screening Diabetes Screening [facility] Start: 04-11-2024 End: 04-11-2024 Patient encounter procedure 04/11/2024 1:30 PM EST Office Visit General Surgery [address] [place] [address] [place] [address] [place] [address] Inguinal hernia without obstruction or gangrene, recurrence not specified, unspe... General Surgery Comment on above: Inguinal hernia without obstruction or g angrene, recurrence not specified, unspe... Start: 04-06-2024 Hepatitis B surface antibody level LDL Cholesterol [facility] Start: 04-03-2024 End: 04-03-2024 Patient encounter procedure 04/03/2024 11:30 AM EST Office Visit [facility] [address] [facility] [address] [place] [phone] Christina Scott PA [address] [place] [address] Arrived [facility] Comment on above: Arrived Start: 02-26-2024 End: 02-26-2024 Patient encounter procedure 02/26/2024 1:45 PM EST Office Visit General Surgery [address] [place] [address] [place] [address] [place] [address] Inguinal hernia without obstruction or gangrene, recurrence not specified, unspe... General Surgery Comment on above: Inguinal hernia without obstruction or g angrene, recurrence not specified, unspe... Start: 02-22-2024 End: 02-22-2024 Patient encounter procedure 02/22/2024 1:45 PM EST Office Visit General Surgery [address] [place] [address] [place] [address] [place] [address] Inguinal hernia without obstruction or gangrene, recurrence not specified, unspe... General Surgery Comment on above: Inguinal hernia without obstruction or g angrene, recurrence not specified, unspe... Start: 02-15-2024 End: 02-14-2025 Comprehensive metabolic 2000 panel - Serum or Plasma Comprehensive metabolic panel Lab Routine 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 (CMS/HCC) Expected: 02/15/2024 (Approximate), Expires: 02/14/2025 [facility] Comment on above: Expected: 02/15/2024 (Approximate), Expi res: 02/14/2025 Start: 02-15-2024 End: 02-14-2025 Lipid 1996 panel - Serum or Plasma Lipid panel Lab Routine 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 (CMS/HCC) Dyslipidemia (CMS/HCC) Expected: 02/15/2024 (Approximate), Expires: 02/14/2025 [facility] Comment on above: Expected: 02/15/2024 (Approximate), Expi res: 02/14/2025 Start: 02-15-2024 End: 02-15-2024 Patient encounter procedure 02/15/2024 9:30 AM EST Office Visit [facility] [address] [facility] [address] [place] [phone] Stanton Velasco MD [address] [facility] [address] [place] [address] Arrived [facility] Comment on above: Arrived Start: 02-13-2024 Advance Directive Discussion Advance Directive Discussion [facility] Start: 02-13-2024 Medicare Advantage Annual Wellness Visit Medicare Advantage Annual Wellness Visit [facility] Start: 01-17-2024 End: 01-17-2024 Patient encounter procedure 01/17/2024 2:00 PM EST Office Visit Urology [address] [place] [address] Fady Dye MD [address] [place] [address] NEW UROLOGY euromodulation for overactive bladder referred by Dr Aki cronin Urology Comment on above: NEW UROLOGY euromodulation for overactiv e bladder referred by Dr Aki cronin Start: 12-12-2023 End: 12-12-2023 Patient encounter procedure 12/12/2023 1:30 PM EDT Office Visit Urology [address] [place] [address] Louie Salomon MD [address] [place] [address] follow up Urology Comment on above: follow up Start: 11-02-2023 End: 11-02-2023 Patient encounter procedure 11/02/2023 11:30 AM EDT Office Visit [facility] [address] [facility] [address] [place] [phone] Stanton Velasco MD [address] [facility] [address] [place] [address] Arrived [facility] Comment on above: Arrived Start: 10-14-2023 Covid-19 Vaccine ( season) Covid-19 Vaccine () [facility] Start: 10-14-2023 Influenza vaccination Influenza Vaccine (#1) [facility] Start: 09-05-2023 RSV Vaccine (1 - 1-dose 75+ series) RSV Vaccine (1 - 1-dose 75+ series) [facility] Start: 08-31-2023 End: 08-31-2023 Nursing evaluation of patient and report 08/31/2023 11:00 AM EDT Nurse Visit Urology [address] [address] [employer] [address] [place] [address] [facility] Comment on above: [facility] Start: 08-15-2023 End: 11-14-2023 Bacteria identified in Urine by Culture [facility] Comment on above: Expected: 08/15/2023, Expires: 4 Start: 08-15-2023 End: 11-14-2023 Urinalysis complete panel - Urine [facility] Work Phone: Comment on above: Expected: 08/15/2023, Expires: 4 Start: 08-02-2023 End: 08-02-2023 Admission to same day surgery center 08/02/2023 8:45 AM EDT - 08/02/2023 10:00 AM EDT Surgery [facility] [place] [address] [place] [address] Louie Salomon MD [address] [place], [place] [id number] DILATION OF URETHRAL STRICTURE BY PASSAGE OF SOUND OR URETHRAL DILATOR, MALE; INITIAL [facility] Comment on above: DILATION OF URETHRAL STRICTURE BY PASSAG E OF SOUND OR URETHRAL DILATOR, MALE; INITIAL Start: 08-02-2023 End: 08-02-2023 Cystourethroscopy inj chemodenervation bladder CYSTOURETHROSCOPY W/INJECTION(S) FOR CHEMODENERVATION OF THE BLADDER 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 stricture Overactive bladder 08/02/2023 8:45 AM EDT [facility] Start: 08-02-2023 End: 08-02-2023 Dilat urethral strix dilator male 1st DILATION OF URETHRAL STRICTURE BY PASSAGE OF SOUND OR URETHRAL DILATOR, MALE; INITIAL 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 stricture Overactive bladder 08/02/2023 8:45 AM EDT [facility] Start: 08-02-2023 Subsequent hospital visit by physician 08/02/2023 8:45 AM EDT Hospital Encounter [address] [address] Louie Salomon MD [address] [place] [id number] 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 stricture [N99.114] [facility] Comment on above: 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 stricture [ N99.114] Start: 06-20-2023 End: 06-20-2023 Patient encounter procedure 06/20/2023 10:30 AM EDT Office Visit Urology [address] [place] [id number] Luoie Salomon MD [address] [place] [id number] ref by dr ramos Urology Comment on above: ref by dr ramos Start: 06-08-2023 End: 06-08-2023 Patient encounter procedure Urology Comment on above: cath removal (does ISC) cath removal (does I SC); possible UC with str. cath; pt. needs 16fr. samples as he only has 14fr at home Start: 04-12-2023 Covid-19 Vaccine ( season) Covid-19 Vaccine ( season) [facility] Start: 02-12-2023 Advance Directive Discussion Advance Directive Discussion [facility] Start: 02-12-2023 Behavioral Health Screening Behavioral Health Screening [facility] Start: 02-12-2023 Depression Assessment Depression Assessment [facility] Start: 10-13-2022 Influenza vaccination INFLUENZA (#1) [facility] Start: 10-12-2022 Screening for malignant neoplasm of colon [facility] Start: 03-20-2022 COVID-19 VACCINE (6 - Moderna series) COVID-19 VACCINE (6 - Moderna series) [facility] Start: 02-12-2022 ADVANCE DIRECTIVE DISCUSSION ADVANCE DIRECTIVE DISCUSSION [facility] Start: 02-12-2022 DEPRESSION ASSESSMENT DEPRESSION ASSESSMENT [facility] Start: 10-13-2021 Influenza vaccination INFLUENZA (#1) [facility] Start: 10-07-2021 COVID-19 VACCINE (5 - Booster for Moderna series) COVID-19 VACCINE (5 - Booster for Moderna series) [facility] Start: 04-13-2021 COVID-19 VACCINE (4 - Booster for Moderna series) COVID-19 VACCINE (4 - Booster for Moderna series) [facility] Start: 02-12-2021 ADVANCE DIRECTIVE DISCUSSION ADVANCE DIRECTIVE DISCUSSION [facility] Start: 02-12-2021 DEPRESSION ASSESSMENT DEPRESSION ASSESSMENT [facility] Start: 02-08-2021 COVID-19 VACCINE (4 - Booster for Moderna series) COVID-19 VACCINE (4 - Booster for Moderna series) [facility] Start: 05-30-2019 Adult depression screening assessment DEPRESSION SCREENING [facility] Start: 11-12-2018 PNEUMOCOCCAL: 65+ (2 - PCV) PNEUMOCOCCAL: 65+ (2 - PCV) [facility] Start: 2008 RSV Vaccine (1 - 1-dose 60+ series) RSV Vaccine (1 - 1-dose 60+ series) [facility] Start: 1993 COLOGUARD (FIT-DNA) COLOGUARD (FIT-DNA) [facility] Start: 1993 Colonoscopy COLONOSCOPY [facility] Start: 1993 COLORECTAL CANCER SCREENING COLORECTAL CANCER SCREENING [facility] Start: [address] COLONOGRAPHY [facility] Start: 1993 FECAL OCCULT BLOOD FECAL OCCULT BLOOD [facility] Start: 1993 Screening for malignant neoplasm of colon [facility] Start: 1993 SIGMOIDOSCOPY SIGMOIDOSCOPY [facility] Start: 09-05-1983 LIPID SCREEN LIPID SCREEN [facility] Start: 09-05-1967 Urine microalbumin profile DTAP,TDAP,TD (1 - Tdap) [facility] Start: 1966 ANNUAL PCP TEAM CHRONIC DISEASE VISIT ANNUAL PCP TEAM CHRONIC DISEASE VISIT [facility] Start: 1966 Anxiety Screening Anxiety Screening [facility] Start: 1966 BP CONTROLLED (<130/80) BP CONTROLLED (<130/80) [facility] Start: 1966 Depression Screening Depression Screening [facility] Start: 1966 Hepatitis B surface antibody level LDL CHOLESTEROL [facility] Start: 1966 HEPATITIS C SCREENING HEPATITIS C SCREENING [facility] Start: 1966 Hepatitis C screening Hepatitis C Screening [facility] Start: 1948 ABDOMINAL AORTIC ANEURYSM SCREENING ABDOMINAL AORTIC ANEURYSM SCREENING [facility] Start: 1948 Abdominal aortic aneurysm screening Abdominal Aortic Aneurysm Screening [facility] Start: 1948 Screening for malignant neoplasm of colon [facility] Bacteria identified in Urine by Culture [facility] Work Phone: Bacteria identified in Urine by Culture URINE CULTURE Microbiology Routine Stricture of male urethra, unspecified stricture type Self-catheterizes urinary bladder 06/08/2023 3:38 PM EDT [facility] Work Phone: Bacteria identified in Urine by Culture URINE CULTURE Microbiology Routine Urinary urgency 12/12/2023 1:56 PM EDT [facility] Work Phone: CBC W Auto Different ial panel - Blood CBC and differential Lab Routine 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 (CMS/HCC) Ordered: 02/15/2024 [employer] Work Phone: Comment on above: Ordered: 02/15/2024 CT Chest WO contrast CT chest wo IV contrast Imaging Routine Multiple nodules of lung Ordered: 02/15/2024 [facility] Comment on above: Ordered: 02/15/2024 CYSTO DIAGNOSTIC CYSTO DIAGNOSTI C Procedures Routine Stricture of male urethra, unspecified stricture type 1 Occurrences starting 04/25/2022 [facility] Work Phone: Comment on above: 1 Occurrences starting 04/25/2022 CYSTO DIAGNOSTIC CYSTO DIAGNOSTI C Procedures Routine Stricture of urethral meatus in male, unspecified stricture type Ordered: 05/15/2023 [facility] Work Phone: Comment on above: Ordered: 05/15/2023 Cystourethroscopy CYSTO.PANENDO Procedures Routine Urinary retention Self-catheterizes urinary bladder Benign prostatic hyperplasia with weak urinary stream 1 Occurrences starting 10/31/2021 [facility] Work Phone: Comment on above: 1 Occurrences starting 10/31/2021 PERIPHERAL NERVE EVALUATION (PNE) PERIPHERAL NERVE EVALUATION (PNE) Procedures Routine Overactive bladder Incomplete bladder emptying Ordered: 02/18/2024 [facility] Work Phone: Comment on above: Ordered: 02/18/2024 Prostate specific Ag [Mass/volume] in Serum or Plasma PSA Lab Routine Prostate cancer screening Ordered: 02/15/2024 [facility] Comment on above: Ordered: 02/15/2024 End: 07-20-2024 US Kidney - bilateral and Urinary bladder US KIDNEY/BLADDER Radiology Routine Stricture of male urethra, unspecified stricture type Urinary urgency 1 Occurrences starting 06/20/2023 until 07/20/2024 [facility] Work Phone: Comment on above: 1 Occurrences starting 06/20/2023 until 07/20/2024 End: 12-10-2022 XR KNEE POST OP 3V AP/LAT/MERCHANT RIGHT XR KNEE POST OP 3V AP/LAT/MERCHANT RIGHT Radiology Routine Chronic knee pain after total replacement of right knee joint 1 Occurrences starting 11/11/2021 until 12/10/2022 [facility] Work Phone: Comment on above: 1 Occurrences starting 11/11/2021 until 12/10/2022 XR KNEE POST OP 3V AP/LAT/MERCHANT RIGHT XR KNEE POST OP 3V AP/LAT/MERCHANT RIGHT Radiology Routine Chronic knee pain after total replacement of right knee joint 11/15/2021 2:22 PM EDT [facility] Work Phone: End: 06-15-2022 XR SHOULDER GENERAL 3V OR MORE AP/TRUE AP/OTHER RIGHT XR SHOULDER GENERAL 3V OR MORE AP/TRUE AP/OTHER RIGHT Radiology Routine Nontraumatic complete tear of right rotator cuff 1 Occurrences starting 05/16/2021 until 06/15/2022 [facility] Work Phone: Comment on above: 1 Occurrences starting 05/16/2021 until 06/15/2022 [facility] Immunizations Immunization Date Immunization Notes Care Provider Fa cility 02-20-2024 ABRYSVO - Respirator y syncytial virus (RSV), vaccine, bivalent, protein subunit RSV prefusion F, diluent reconstituted, 0.5 mL, PF Christina FU Work Phone: [facility] 11-12-2023 influenza, high dose seasonal, preservative-free Stanton Velasco MD Work Phone: [facility] 11-12-2023 influenza virus vacc ine, unspecified formulation Stanton Velasco MD Work Phone: [facility] 12-12-2022 SARS-COV-2 (COVID-19 ) vaccine, mRNA, spike protein, LNP, PF, 50 mcg/0.5 mL Stanton Velasco MD Work Phone: [facility] 11-09-2022 Influenza, High-dose Seasonal, Quadrivalent, Preservative Free Stanton Velasco MD Work Phone: [facility] 11-09-2022 influenza virus vacc ine, unspecified formulation Daija Larse PA-C Work Phone: [facility] 11-17-2021 Influenza, High-dose Seasonal, Quadrivalent, Preservative Free Stanton Velasco MD Work Phone: [facility] 11-17-2021 Moderna Bivalent Hayes ster Vaccination Stanton Velasco MD Work Phone: [facility] 09-08-2021 Pneumococcal Conjuga te PCV 20 Stanton Velasco MD Work Phone: [facility] 09-08-2021 tetanus toxoid, redu nurys diphtheria toxoid, and acellular pertussis vaccine, adsorbed Stanton Velasco MD Work Phone: [facility] 05-11-2021 tuberculin skin test ; purified protein derivative solution, intradermal Stanton Velasco MD Work Phone: [facility] 05-04-2021 tuberculin skin test ; purified protein derivative solution, intradermal Stanton Velasco MD Work Phone: [facility] 12-14-2020 Rocio SARS-CoV-2 Stanton mcconnell MD Work Phone: [facility] 11-16-2020 influenza, high-dose , quadrivalent vaccine (FLUZONE HIGH DOSE QUADRIVALENT) Kev Ferrell MD Work Phone: [facility] 11-16-2020 zoster vaccine recombinant Kev Ferrell MD Work Phone: [facility] 11-16-2020 zoster vaccine, live Stanton Velasco MD Work Phone: [facility] 06-23-2020 zoster vaccine recombinant Kev Ferrell MD Work Phone: [facility] 06-23-2020 zoster vaccine, live Stanton Velasco MD Work Phone: [facility] 05-05-2020 Rocio SARS-CoV-2 Stanton mcconnell MD Work Phone: [facility] 04-08-2020 Rocio SARS-CoV-2 Stanton mcconnell MD Work Phone: [facility] 12-16-2019 influenza, high dose seasonal, preservative-free Kev Ferrell MD Work Phone: [facility] 11-07-2019 influenza, high-dose , quadrivalent vaccine (FLUZONE HIGH DOSE QUADRIVALENT) Kev Ferrell MD Work Phone: [facility] 10-31-2018 influenza, high dose seasonal, preservative-free Kev Ferrell MD Work Phone: [facility] 07-04-2018 tetanus toxoid, redu nurys diphtheria toxoid, and acellular pertussis vaccine, adsorbed Stanton Velasco MD Work Phone: [facility] 07-04-2018 zoster vaccine recombinant Stanton Velasco MD Work Phone: [facility] 12-28-2017 zoster vaccine recombinant Stanton Velasco MD Work Phone: [facility] 12-20-2017 influenza, high dose seasonal, preservative-free Kev Ferrell MD Work Phone: [facility] 11-12-2017 pneumococcal polysaccharide vaccine, 23 valent Kev Ferrell MD Work Phone: [facility] 11-13-2014 pneumococcal conjuga te vaccine, 13 valent Stanton Velasco MD Work Phone: [facility] 09-02-2004 TD(adult) unspecifie d formulation Stanton Velasco MD Work Phone: [facility] 08-21-2003 pneumococcal vaccine , unspecified formulation Stanton Velasco MD Work Phone: [facility] Payers Date Payer Category Payer Unknown [id number] 2021 Medicare DEVOTED MEDICARE [facility] [id number] 2021-Present [phone] [address] [place] [id number] [facility] [id number] .[id number] 2021 Medicare (Managed Care) 1.2. [id number] 5 2020 Unknown [id number] 2017 Private Health Insurance [employer] [place] [id number] .[id number] 2017 Unknown [employer] [address] D [id number] 2017-Present [phone] [address] [address] [place] [id number] Indemnity [id number] .[id number] 2017 Unknown [id number] [id number] .[id number] 2017 Unknown [id number] 2015 Medicare [id number] .[id number] 1959 Self-pay [id number] 1948 Unknown [id number] 2.16.840.1.711613.3.579 .2.647 1948 Unknown [id number] 2.16.840.1.279045.3.579 .2.593 1948 Unknown [id number] 2.16.840.1.731430.3.579 .2.593 1948 Unknown [id number] 2.16.840.1.214173.3.579 .2.593 1948 Unknown [id number] 2.16.840.1.738818.3.579 .2.593 1948 Unknown [id number] 2.16.840.1.711544.3.579 .2.593 1948 Unknown [id number] 2.16.840.1.356352.3.579 .2.593 1948 Unknown [id number] 2.16.840.1.987371.3.579 .2.593 1948 Unknown [id number] 2.16.840.1.655280.3.579 .2.727 1948 Unknown [id number] 2.16.840.1.569935.3.579 .2.72 1948 Unknown [id number] 2.16.840.1.671114.3.579 .2.727 1948 Unknown [id number] 2.16.840.1.334514.3.579 .2.72 1948 Unknown [id number] 2.16.840.1.207228.3.579 .2.1259 1948 Unknown [id number] 2.16.840.1.054642.3.579 .2.125 1948 Unknown [id number] 2.16.840.1.719759.3.579 .2.1258 1948 Unknown [id number] 2.16.840.1.085211.3.579 .2.125 1948 Unknown [id number] 2.16.840.1.989295.3.579 .2.125 1948 Unknown [id number] 2.16.840.1.989677.3.579 .2.125 1948 Unknown [id number] 2.16.840.1.056824.3.579 .2.1259 Medicare Self Pay [id number] Private Health Insurance [facility] [id number] Unknown Self Pay [id number] Social History Date Type Detail Facility Start: 11-13-2016 End: 12-12-2023 Tobacco smoking status NHIS Ex-smoker [facility] Start: 11-14-1987 End: 11-13-1997 History of tobacco use Current smoker [facility] Start: 11-14-1987 End: 11-13-1997 History of tobacco use Cigarette Smoker [facility] Start: 11-13-2016 End: 06-23-2022 Cigarettes smoked current (pack per day) - Reported 1.25 [facility] Work Phone: Start: 11-13-2016 End: 12-12-2023 Tobacco use and exposure Smokeless tobacco non-user [facility] Start: 05-02-2021 End: 12-12-2023 Alcohol intake Current drinker of alcohol (finding) [facility] Start: 12-19-2019 History SDOH Alcohol Frequency 2 [facility] Start: 12-19-2019 History SDOH Alcohol Std Drinks 1 [facility] Start: 01-02-2019 History SDOH Alcohol Comment 2 cans of beer per year. [facility] Start: 1950 Sex Assigned At Not on file [facility] Start: 03-16-2020 End: 11-15-2021 Exposure to SARS-CoV-2 (event) Not sure [facility] Work Phone: Start: 11-06-2018 End: 07-06-2022 Tobacco smoking status NHIS Never smoked tobacco (finding) [facility] Start: 1950 Sex Assigned At Male [facility] Start: 12-19-2019 End: 06-23-2022 Alcohol Use Disorder Identification Test - Consumption [AUDIT-C] [facility] Work Phone: How often to you hav e a drink containing alcohol? Monthly or less [facility] Work Phone: How many standard dr inks containing alcohol do you have on a typical day? 1 or 2 [facility] Work Phone: How often do you hav e 6 or more drinks on 1 occasion? Never [facility] Work Phone: Start: 03-23-2020 PHQ2 Score 0 [facility] Start: 07-19-2023 Gender identity Identifies as male gender (finding) [facility] Start: 11-02-2023 End: 10-24-2024 Alcoholic beverage intake Lifetime non-drinker (finding) [facility] [...] more. Never true [facility] Sexual Orientation [facility] Start: 06-06-2016 Sex Male (finding) [facility] Medical Equipment Procedure Code Equipment Code Equipment Origin al Text Equipment Identifier Dates Qgs-Ym-L-Kind Im plant - [id number] Start: 05-29-2017 Comment on above: Description: 11mm in line plate Eak-Sz-S-Kind Im plant - [id number] Start: 05-29-2017 Comment on above: Description: hinge p late Prolong Rev Shou lder Prosthesis Cup 36mm +3mm Retentive Thick [id number] Start: 05-02-2021 Stem Hum 83mm 14 mm Cmprh Por - [id number] Start: 05-02-2021 Rev Shoulder Prosthesis Body 40mm +5mm Thick +0mm Taper Offset [id number] Start: 05-02-2021 Insert Triathlon 7 10mm Tibial Bearing Condylar Stabilize Sterile Knee - [id number] Start: 10-30-2018 Baseplate Triath vicenta Tritanium 7 Tibial Knee - [id number] Start: 10-30-2018 Component Tritan ium 38mm Metal 11mm Patellar Asymmetric Knee - [id number] Start: 10-30-2018 Component Triath vicenta 7 Pa Femoral Cruciate Retain Bead Knee Right - [id number] Start: 10-30-2018 Component Comprehensive Versa-Dial 36mm Standard Glenoid Glenosphere - [id number] Start: 05-02-2021 Lead Interstim 1 .27mm 3mm Space Straight 33cm Neurostimulator Inline - [id number] Start: 07-06-2017 Lead Interstim 1 .27mm 3mm Space Straight 33cm Neurostimulator Inline - [id number] Start: 07-20-2017 Plate Canopy 9mm Bone Shelf Inline Spine - [id number] Start: 05-29-2017 Baseplate Comprehensive 25mm Mini Glenoid Taper Adapter Reverse Shoulder - [id number] Start: 05-02-2021 Screw 2.2mm 6mm Bone Self Drilling - [id number] Start: 05-29-2017 Screw 2.2mm Reli dmitri Slfdrl 5mm - [id number] Start: 05-29-2017 Screw Comprehens rowena 4.75mm 3.5mm Titanium 15mm Bone Fix Angle Lock - [id number] Start: 05-02-2021 Screw Comprehens rowena 3.5mm 30mm Bone Central Hexagon [employer] 6.5mm Shoulder - [id number]_[facility] Start: 05-02-2021 Screw Comprehens rowena 4.75mm 3.5mm Hexagon 20mm Bone Variable Angle Nonlock - [id number] Start: 05-02-2021 Screw Comprehens rowena 3.5mm Hexagon 20mm Bone Fix Angle Lock Reverse 4.75mm - [id number] Start: 05-02-2021 Screw Comprehens rowena 3.5mm Hexagon 30mm Bone Fix Angle Lock Reverse 4.75mm - [id number]_[facility] Start: 05-02-2021 Functional Status Date Assessment Result Facility 06-30-2024 Functional Status N/A [facility] 05-04-2021 Are you deaf, or do you have serious difficulty hearing No 05/04/2021 3:26 PM Corry Yu RN No [facility] 05-04-2021 Are you blind, or do you have serious difficulty seeing, even when wearing glasses No 05/04/2021 3:26 PM Corry Yu RN No [facility] 05-04-2021 Do you have serious difficulty walking or climbing stairs Yes 05/04/2021 3:26 PM Corry Yu, LEATHA Yes [facility] 05-04-2021 Because of a physica l, mental, or emotional condition, do you have difficulty doing errands alone such as visiting a physician's office or shopping Yes 05/04/2021 3:26 PM EDT Corry Schaeffer, RN Yes [facility] 10-31-2018 Do you have difficul ty dressing or bathing No 10/31/2018 3:35 PM EDT Dora Moreira, LEATHA No [facility] Mental Status Date Assessment Result Facility 05-04-2021 Because of a physica l, mental, or emotional condition, do you have serious difficulty concentrating, remembering, or making decisions No 05/04/2021 3:26 PM EDT Corry Schaeffer, LEATHA No [facility] Clinical Notes 12-21-2020 to 10-28-2024 Kev Ferrell MD - 10/28/2024 11:42 AM Juan Clark RT(R) - 10/28/2024 11:14 AM Chris Corado MD - 10/24/2024 1:26 PM Jen Vleasco MD - 10/24/2024 9:45 AM EDTPatient Instructions Note Date & Type Note Facility 10-28-2024 Note HNO ID: [id number] Author: KEV FERRELL MD Service: ? Author Type: Physician Type: Progress Notes Filed: 10/28/2024 11:54 Note Text: This document has been created [...] been compensating by using his right arm for activities. He denies significant tenderness at the fracture site, reporting only mild discomfort upon palpation. Additionally, Fahad reports an inguinal hernia causing pain radiating to his leg, particularly when standing for prolonged periods. He is awaiting surgical intervention by Dr. Clements. HISTORY OF PRESENT ILLNESS: PAIN EVALUATION 10/28/2024 1119 Pain Level: 3 Pain Location: Shoulder-Right Description: Sore Duration Amount of Time: 2 Duration Units: Months Frequency: Intermittent Intervention/Comfort measure: Reposition;Relaxation;Positioning ;Medication The patient's past medical history, surgical history, [...] bridging of bone margins. Patient reports mild, intermittent aching without significant pain or functional limitation; no new trauma or falls reported. - Advised patient to avoid heavy lifting and strenuous physical activity involving the affected shoulder. - Recommended continuation of multivitamin supplementation, including adequate vitamin C intake, to support bone healing. - Plan to obtain repeat X-ray in 2-3 months to continue to monitor healing progress. Nehemiah Gilbert PA-C I have personally performed [...] Ferrell MD October 28, 2024 11:52 AM [facility] 10-28-2024 History of Present illness Narrative This document [...] been compensating by using his right arm for activities. He denies significant tenderness at the fracture site, reporting only mild discomfort upon palpation. Additionally, Fahad reports an inguinal hernia causing pain radiating to his leg, particularly when standing for prolonged periods. He is awaiting surgical intervention by Dr. Clements. HISTORY OF PRESENT ILLNESS: PAIN EVALUATION 10/28/2024 1119 Pain Level: 3 Pain Location: Shoulder-Right Description: Sore Duration Amount of Time: 2 Duration Units: Months Frequency: Intermittent Intervention/Comfort measure: Reposition;Relaxation;Positioning ;Medication The patient's past medical history, surgical history, [...] bridging of bone margins. Patient reports mild, intermittent aching without significant pain or functional limitation; no new trauma or falls reported. - Advised patient to avoid heavy lifting and strenuous physical activity involving the affected shoulder. - Recommended continuation of multivitamin supplementation, including adequate vitamin C intake, to support bone healing. - Plan to obtain repeat X-ray in 2-3 months to continue to monitor healing progress. Nehemiah Gilbert PA-C I have personally performed [...] 2024 11:52 AM documented in this encounter [facility] 10-28-2024 Note HNO ID: [id number] Author: JUAN ABAD RT(Satinder) Service: ? Author Type: Technologist Type: Progress Notes Filed: 10/28/2024 11:15 Note Text: Radiology Service Progress Note PATIENT [...] PATIENT PRESENTS WITH AN IMPLANTABLE OR ATTACHED ANNEALING OPERATOR: No RADIOLOGY DEPARTMENT: General X-ray: Exam(s) Completed: Upper Extremity X-Ray(s): Clavicle, right PERIPHERAL IV DATA: Not applicable SIGNED BY: RT Grupo(Satinder) October 28, 2024 11:14 AM [facility] 10-28-2024 History of Present illness Narrative Radiology Service [...] PATIENT PRESENTS WITH AN IMPLANTABLE OR ATTACHED ANNEALING OPERATOR: No RADIOLOGY DEPARTMENT: General X-ray: Exam(s) Completed: Upper Extremity X-Ray(s): Clavicle, right PERIPHERAL IV DATA: Not applicable SIGNED BY: RT Grupo(R) October 28, 2024 11:14 AM documented in this encounter [facility] 10-24-2024 Note HNO ID: [id number] Author: CHRIS CLEMENTS MD Service: ? Author Type: Physician Type: Progress Notes Filed: 10/24/2024 13:29 Note Text: returns with lots of painin right groin and entire anterior thigh exam w valsalva reproduces hernia and pain rec right inguinal hernia repair with mesh brangeodwpid huawtpsa [facility] 10-24-2024 History of Present illness Narrative returns with lots of painin right groin and entire anterior thigh exam w valsalva reproduces hernia and pain rec right inguinal hernia repair with mesh brangeodwpid [place] documented in this encounter [facility] 10-24-2024 History of Present illness Narrative Images from [...] on neck, chest) TWICE DAILY NEEDED [DISCONTINUED] linaCLOtide (Linzess) 290 MCG capsule Take 1 capsule (290 mcg) by mouth in the morning for 16 days. Take before meals. Do not crush or chew.. (Patient not taking: Reported on 10/17/2024) 16 capsule 0 No current facility-administered medications on [...] Wt 218 lb SpO2 94% BMI 31.28 kg/m Smoking Status Never BSA 2.21 m Review of Systems Cardiovascular: Positive for chest [...] XRAy was negative. 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 documented in this encounter [facility] 10-22-[address] [facility] SUBJECTIVE Chief Complaint Patient presents with [...] kg (215 lb) SpO2 94% BMI 30.85 kg/m??? Smoking Status Former BSA 2.19 m??? Medications: Current Medications[6] Physical Exam Constitutional: Appearance: [...] distal left anterior descending coronary artery. 3. 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 Follow up with me in the [facility] in 1 month. 5. Follow up with Dr. Centeno as scheduled. Echocardiogram 06/07/2022: Global left ventricular [...] lead unit performed Coronary artery disease involving grindstone coronary artery of grindstone heart without angina pectoris Hx of CABG Benign hypertensive heart disease without congestive heart failure Mixed hyperlipidemia #Coronary atherosclerosis; history of coronary artery bypass graft surgery-saphenous vein graft to the LAD (2004) given need for emergency CABG due to complicated PCI #Chest pain -Chest pain is atypical for cardiac in nature. Suspect it is related to his recent fall. -EKG (more content not included)... 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 documented in this encounter [facility] 09-19-2024 Note HNO ID: [id number] Author: KEV FERRELL MD Service: ? Author [...] follow-up in 1 month. Kev Ferrell MD [facility] 09-19-2024 Note HNO ID: [id number] Author: KIRSTIN ECHEVERRIA RT(R) Service: ? Author [...] PATIENT PRESENTS WITH AN IMPLANTABLE OR ATTACHED ANNEALING OPERATOR: No RADIOLOGY DEPARTMENT: General X-ray: Exam(s) Completed: Upper Extremity X-Ray(s): Clavicle, right PERIPHERAL IV DATA: Not applicable SIGNED BY: Kirstin Echeverria, RT(R) September 19, 2024 9:48 AM [facility] 08-29-2024 Note HNO ID: [id number] Author: KEV FERRELL MD Service: ? Author [...] Diagnosis Date CAD (coronary artery disease) 2005 SC in 1997. Had a stent placed in [...] 2 to 3 weeks Kev Ferrell MD [facility] 08-29-2024 History of Present illness Narrative [...] Diagnosis Date CAD (coronary artery disease) 2005 SC in 1997. Had a stent placed in [...] Kev Ferrell MD documented in this encounter [facility] 08-29-2024 Note HNO ID: [id number] Author: RIGO JANG RT(R) Service: ? Author [...] PATIENT PRESENTS WITH AN IMPLANTABLE OR ATTACHED ANNEALING OPERATOR: No RADIOLOGY DEPARTMENT: General X-ray: Exam(s) Completed: Upper Extremity X-Ray(s): Shoulder, AP / TRUE AP / AXILLARY / SUPRA OUTLET right PERIPHERAL IV DATA: Not applicable SIGNED BY: RT GIOVANNI(R) August 29, 2024 8:16 AM [facility] 08-29-2024 History of Present illness Narrative [...] PATIENT PRESENTS WITH AN IMPLANTABLE OR ATTACHED ANNEALING OPERATOR: No RADIOLOGY DEPARTMENT: General X-ray: Exam(s) Completed: Upper Extremity X-Ray(s): Shoulder, AP / TRUE AP / AXILLARY / SUPRA OUTLET right PERIPHERAL IV DATA: Not applicable SIGNED BY: RT GIOVANNI(R) August 29, 2024 8:16 AM documented in this encounter [facility] 08-26-2024 Instructions Kristal Hare APRN.[facility] - 08/26/2024 1:28 PM EDT - Obstructive defecation: 1. Stay hydrated by drinking at least 8 glasses of water per day. This will help to keep your bowel habits more regular. 2. Continue taking your bowel regimen as prescribed follow up with Dr. 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 3. Pelvic floor physical therapy. The goal [...] to this physician. documented in this encounter [facility] 08-26-2024 Note HNO ID: [id number] Author: KRISTAL HARE APRN.NAVEEN Service: ? Author [...] Diagnosis Date CAD (coronary artery disease) 2005 SC in 1997. Had a stent placed in 2008 c/b coronary artery dissection and that lead to a CABG x1 in 2008 Former smoker quit 1997 Hyperlipidemia Hypertension Intermittent self-catheterization of bladder Urge incontinence of urine PAST SURGICAL HISTORY Procedure Laterality Date ARTHRP KNE CONDYLEANDPLATU MEDIALANDLAT COMPARTMENTS 10/30/2018 right CABG (1) VEIN GRAFT AND ARTERIAL GRAFT 2008 coronary dissection during stent placement [facility] INNERVATED FACIAL NRV UNIL CYSTO.PANENDO 11/24/2021 Dr. Dye CYSTO.PANENDO 05/31/2022 CYSTO.PANENDO N/A 06/04/2023 CYSTOSCOPY 03/29/2017 Dr. Fady Dye - [facility] LEFT HEART CATH,PERCUTANEOUS 05/11/2003 Cardiac cath, [...] done by Nava Back LPN, [facility] Current Outpatient Medications Medication Sig Dispense [...] Other Reaction(s): Con (more content not included)... [facility] 08-26-2024 History of Present illness Narrative [...] Diagnosis Date CAD (coronary artery disease) 2005 SC in 1997. Had a stent placed in 2008 c/b coronary artery dissection and that lead to a CABG x1 in 2008 Former smoker quit 1997 Hyperlipidemia Hypertension Intermittent self-catheterization of bladder Urge incontinence of urine PAST SURGICAL HISTORY Procedure Laterality Date ARTHRP KNE CONDYLE&PLATU MEDIAL&LAT COMPARTMENTS 10/30/2018 right CABG (1) VEIN GRAFT & ARTERIAL GRAFT 2008 coronary dissection during stent placement [facility] INNERVATED FACIAL NRV UNIL CYSTO.PANENDO 11/24/2021 Dr. Dye CYSTO.PANENDO 05/31/2022 CYSTO.PANENDO N/A 06/04/2023 CYSTOSCOPY 03/29/2017 Dr. Fady Dye - [facility] LEFT HEART CATH,PERCUTANEOUS 05/11/2003 Cardiac cath, [...] done by Nava Back LPN, [facility] Current Outpatient Medications Medication Sig Dispense [...] discussed with the Patient or Patient's Authorized Spiral [employer] Winder. As applicable, any other physician, advance practice provider, medical student, or other health professional student that will be observing or involved in the sensitive examination for educational or training purposes was discussed with the Patient or Authorized [employer] Winder. The Patient or Authorized Spiral Spring Winder has agreed to proceed with the sensitive [...] with Dr. Solorio regarding plan for medications prison. 3. Pelvic floor physical therapy. The goal [...] be sent to this physician. Kristal Hare APRN.NAVEEN Pelvic Floor Colorectal Surgery I spent a total of 60 minutes on the date of the service which included preparing to see the patient, kfuw-[id number] patient care, completing clinical documentation, obtaining and/or reviewing separately obtained history, performing a medically appropriate examination, counseling and educating the patient/family/caregiver, ordering medications, tests, or procedures, and communicating results to the patient/family/caregiver. documented in this encounter [facility] 05-21-2024 Note [facility] Cardiology Clinic Note Chief Complaint: Patient [...] distal left anterior descending coronary artery. 3. 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 Follow up with me in the [facility] in 1 month. 5. Follow up with Dr. Centeno as scheduled. Stress test 06/28/2023: Normal nuclear medicine myocardial perfusion scan Assessment: Coronar (more content not included)... [facility] 04-16-2024 History of Present illness Narrative Images [...] History: Diagnosis Date CAD (coronary artery disease) ([facility]) Closed torus fracture of upper end of left fibula 08/21/2022 Complete rotator cuff tear or rupture of right shoulder, not specified as traumatic 05/04/2021 HLD (hyperlipidemia) ([facility]) HTN (hypertension) ([facility]) Myocardial infarct ([facility]) Rotator cuff tear left Past Surgical History: [...] follow-ups on file. documented in this encounter [facility] 04-16-2024 Instructions Sukumar Mack NP - 04/16/2024 2:30 PM EST Lactulose order sent to the pharmacy today. documented in this encounter [facility] 04-11-2024 Note HNO ID: [id number] Author: CHRIS CLEMENTS MD Service: ? Author [...] surgical repair and will return for discussion [facility] 04-11-2024 History of Present illness Narrative [...] return for discussion documented in this encounter [facility] 04-03-2024 History of Present illness Narrative Images from the original note were not included. Subjective Patient ID: Fahad Sotelo is a 73 y.o. male who presents for [facility] ER follow up. Flowsheet Row Patient Outreach from 04/02/2024 in [facility] with Emelyn Hall RN Hospital Information ED, Hospital or Care Home Facility Discharge? ED Patient has been contacted within 1 week of being seen in the ED Yes Diagnosis constipation with no evidence of obstruction Discharge Date 03/31/24 Discharged To: Home Setting Discharge Hospital [facility] Admission Date 03/31/24 Medications Discharge medications reviewed [...] History: Diagnosis Date CAD (coronary artery disease) ([facility]) Closed torus fracture of upper end of left fibula 08/21/2022 Complete rotator cuff tear or rupture of right shoulder, not specified as traumatic 05/04/2021 HLD (hyperlipidemia) ([facility]) HTN (hypertension) ([facility]) Myocardial infarct ([facility]) Rotator cuff tear left Past Surgical History: [...] sooner if needed. documented in this encounter [facility] 03-17-2024 Telephone encounter Note Orders faxed to [employer] [phone] [facility] 03-17-2024 Miscellaneous Notes Orders faxed to [employer] [phone] documented in this encounter [facility] 03-07-2024 History of Present illness Narrative [...] History: Diagnosis Date CAD (coronary artery disease) ([facility]) Closed torus fracture of upper end of left fibula 08/21/2022 Complete rotator cuff tear or rupture of right shoulder, not specified as traumatic 05/04/2021 HLD (hyperlipidemia) ([facility]) HTN (hypertension) (CMS/HCC) Myocardial infarct ([facility]) Rotator cuff tear left Past Surgical History: [...] factors. LDL-C is now calculated using the Talha-Zhou calculation, which is a validated novel method providing better accuracy than the Friedewald equation in the estimation of LDL-C. Talha HERNANDEZ et al. MANPREET. 2013;310(19): 8083-4761 (http://education.Pinnatta.com/faq/EHI282) CHOL/HDLC RATIO 02/15/2024 3.0 <5.0 (calc) Final [...] for Routine F/U. documented in this encounter [facility] 02-28-2024 Telephone encounter Note Form faxed to: [phone]. Transmitted OK - Confirmation Received. We will hold onto the paperwork in our hold for two (2) week bin. Afterwards, it will be sent to [facility] for scanning into the pt's chart. [facility] 02-28-2024 Miscellaneous Notes Form faxed to: [phone]. Transmitted OK - Confirmation Received. We will hold onto the paperwork in our hold for two (2) week bin. Afterwards, it will be sent to [facility] for scanning into the pt's chart. We received a fax from [facility], [facility]. I have the form, from [employer], in Dr. Dye's work bin. We will need Dr. Dye's signature and date signed on the form. When I spoke with the Pt he said he will be getting his cath supplies from [facility]. [employer] is there sister store owned by [facility]. documented in this encounter [facility] 02-26-2024 Note HNO ID: [id number] Author: CHRIS CLEMENTS MD Service: ? Author Type: Physician Type: Progress Notes Filed: 02/26/2024 15:16 Note Text: Patient is referred by Stanton Velasco II, MD with recent right groin pain. A copy of dictation with recommendations to above by epic electronic medical record US mail. No prior [...] have discomfort and no hernia diagnosed clinically [facility] 02-25-2024 Telephone encounter Note We received a fax from [employer]. I have the form, from [employer], in Dr. Dye's work bin. We will need Dr. Dye's signature and date signed on the form. When I spoke with the Pt he said he will be getting his cath supplies from [facility]. [employer] is there sister store owned by [facility]. [facility] 02-22-2024 Telephone encounter Note Faxed orders for catheter supplies to [phone] [facility] 02-22-2024 Miscellaneous Notes Faxed orders for catheter supplies to [phone] documented in this encounter [facility] 02-18-2024 Telephone encounter Note VV note addendum made from today, catheters ordered and faxed electronically to [address] [place] [address]. Aislinn Montalvo RN BSN [facility] 02-18-2024 Miscellaneous Notes VV note addendum made from today, catheters ordered and faxed electronically to [address] [place] [address]. Aislinn Montalvo RN BSN Pt needs a new script for medical supplies, doesn't have a company in mind because he recently got new insurance 16fr coude/pre lubricated 5xs a day documented in this encounter [facility] 02-18-2024 Note Addended by: AISLINN RAHMAN on: 02/18/2024 02:28 PM Modules accepted: Orders [facility] 02-18-2024 Miscellaneous Notes Addended by: AISLINN MONTALVO on: 02/18/2024 02:28 PM Modules accepted: Orders documented in this encounter [facility] 02-18-2024 Telephone encounter Note Pt needs a new script for medical supplies, doesn't have a company in mind because he recently got new insurance 16fr coude/pre lubricated 5xs a day [facility] 02-18-2024 Note HNO ID: [id number] Author: NORI BE RN Service: ? Author [...] visit. Either the patient or their legal construction representative has been informed of the risks [...] Diagnosis Date CAD (coronary artery disease) 2004 [place] in 1997. Had a stent placed in 2008 c/b coronary artery dissection and that lead to a CABG x1 in 2008 Former smoker quit 1997 Hyperlipidemia Hypertension Intermittent self-catheterization of bladder Urge incontinence of urine PAST SURGICAL HISTORY Procedure Laterality Date ARTHRP KNE CONDYLEANDPLATU MEDIALANDLAT COMPARTMENTS 10/30/2018 right CABG (1) VEIN GRAFT AND ARTERIAL GRAFT 2008 coronary dissection during stent placement [facility] INNERVATED FACIAL NRV UNIL CYSTO.PANENDO 11/24/2021 Dr. Dye CYSTO.PANENDO 05/31/2022 CYSTO.PANENDO N/A 06/04/2023 CYSTOSCOPY 03/29/2017 Dr. Fady Dye - [facility] LEFT HEART CATH,PERCUTANEOUS 05/11/2003 Cardiac cath, [...] done by Nava Back LPN, [facility] Current Outpatient Medications on File Prior [...] Surge eval - PERIPHERAL NERVE EVALUATION (PNE) [facility] 3. Incomplete bladder emptying - ICD9: 788.21, [...] with more than 50% of the total hudm-fh-fefp time of the visit in counseling / coordination of care. Fady Dye MD [facility] [place] fax: [facility] 02-18-2024 History of Present illness Narrative [facility] Virtual Visit Patient Visit: This Team Access Model visit is a virtual encounter. It required patient-provider interaction for the medical decision making as documented below. I have communicated my name and active licensure. The patient's identity and physical location were verified at the time of this visit. Either the patient or their legal construction representative has been informed of the risks [...] Diagnosis Date CAD (coronary artery disease) 2004 SC in 1997. Had a stent placed in 2008 c/b coronary artery dissection and that lead to a CABG x1 in 2008 Former smoker quit 1997 Hyperlipidemia Hypertension Intermittent self-catheterization of bladder Urge incontinence of urine PAST SURGICAL HISTORY Procedure Laterality Date ARTHRP KNE CONDYLE&PLATU MEDIAL&LAT COMPARTMENTS 10/30/2018 right CABG (1) VEIN GRAFT & ARTERIAL GRAFT 2008 coronary dissection during stent placement [facility] INNERVATED FACIAL NRV UNIL CYSTO.PANENDO 11/24/2021 Dr. Dye CYSTO.PANENDO 05/31/2022 CYSTO.PANENDO N/A 06/04/2023 CYSTOSCOPY 03/29/2017 Dr. Fady Dye - [facility] LEFT HEART CATH,PERCUTANEOUS 05/11/2003 Cardiac cath, [...] done by Nava Back LPN, [facility] Current Outpatient Medications on File Prior [...] with more than 50% of the total jthi-yf-npzy time of the visit in counseling / coordination of care. Fady Dye MD [facility] [place] fax: documented in this encounter [facility] 02-18-2024 Telephone encounter Note Patient is calling into the office. He is requesting caths. He states that he needs 16F. Please assist, thank you [facility] 02-18-2024 Miscellaneous Notes Patient is calling into the office. He is requesting caths. He states that he needs 16F. Please assist, thank you documented in this encounter [facility] 02-15-2024 History of Present illness Narrative [...] Do you have a medical power of small engine specialist?: Yes Who is your medical power of small engine specialist?: sister Objective : BP 128/74 Pulse 64 [...] facility ACP (advance care planning) 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 (CMS/HCC) - CBC [...] February 15, 2024 documented in this encounter [facility] 01-17-2024 Note HNO ID: [id number] Author: FADY DYE MD Service: ? Author [...] Diagnosis Date CAD (coronary artery disease) 2004 SC in 1997. Had a stent placed in 2008 c/b coronary artery dissection and that lead to a CABG x1 in 2008 Former smoker quit 1997 Hyperlipidemia Hypertension Intermittent self-catheterization of bladder Urge incontinence of urine PAST SURGICAL HISTORY Procedure Laterality Date ARTHRP KNE CONDYLEANDPLATU MEDIALANDLAT COMPARTMENTS 10/30/2018 right CABG (1) VEIN GRAFT AND ARTERIAL GRAFT 2009 coronary dissection during stent placement [facility] INNERVATED FACIAL NRV UNIL CYSTO.PANENDO 11/24/2021 Dr. Dye CYSTO.PANENDO 05/31/2022 CYSTO.PANENDO N/A 06/04/2023 CYSTOSCOPY 03/29/2017 Dr. Fady Dye - [facility] LEFT HEART CATH,PERCUTANEOUS 05/11/2003 Cardiac cath, [...] done by Nava Back LPN, [facility] Social History Tobacco Use Smoking status: [...] improved his cap (more content not included)... [facility] 01-17-2024 History of Present illness Narrative [...] Diagnosis Date CAD (coronary artery disease) 2005 [place] in 1997. Had a stent placed in 2008 c/b coronary artery dissection and that lead to a CABG x1 in 2008 Former smoker quit 1997 Hyperlipidemia Hypertension Intermittent self-catheterization of bladder Urge incontinence of urine PAST SURGICAL HISTORY Procedure Laterality Date ARTHRP KNE CONDYLE&PLATU MEDIAL&LAT COMPARTMENTS 10/30/2018 right CABG (1) VEIN GRAFT & ARTERIAL GRAFT 2008 coronary dissection during stent placement [facility] INNERVATED FACIAL NRV UNIL CYSTO.PANENDO 11/24/2021 Dr. Dye CYSTO.PANENDO 05/31/2022 CYSTO.PANENDO N/A 06/04/2023 CYSTOSCOPY 03/29/2017 Dr. Fady Dye - [facility] LEFT HEART CATH,PERCUTANEOUS 05/11/2003 Cardiac cath, [...] done by Nava Back LPN, [facility] Social History Tobacco Use Smoking status: [...] which included preparing to see the patient, [id number] patient care, completing clinical documentation, obtaining and/or reviewing separately obtained history, counseling and educating the patient/family/caregiver, and ordering medications, tests, or procedures. Fady Dye MD documented in this encounter [facility] 12-14-2023 Telephone encounter Note Fahad Sotelo [id number] Called patient re: recent urine culture with Dr. Salomon. No answer. Left VM with call back number. Sent Rx for bactrim to local pharmacy. Daija Lares PA-C 12/14/2023 3:31 PM [facility] 12-14-2023 Miscellaneous Notes Fahad Sotelo [phone] Called patient re: recent urine culture with Dr. Salomon. No answer. Left VM with call back number. Sent Rx for bactrim to local pharmacy. Daija Lares PA-C 12/14/2023 3:31 PM documented in this encounter [facility] 12-13-2023 Nurse Note Faxed clinical notes that say patient needs pre-lubed coude caths because of bph and stricture, [facility] a [facility] 12-13-2023 Nurse Note Faxed clinical notes that say patient needs pre-lubed coude caths because of bph and stricture, urinary retention three time a day, to [facility] fax # , documented in this encounter [facility] 12-12-2023 Instructions Louie Salomon MD - 12/12/2023 1:49 PM EDT Today we discuss neuromodulation for overactive bladder with something like an interstim device. I can set you up to talk to Dr Dye to discuss this. That would not fix your stricture but if it improved your bladder function we could fix the stricture separately. documented in this encounter [facility] 12-12-2023 Note HNO ID: [id number] Author: LOUIE SALOMON MD Service: ? Author [...] Diagnosis Date CAD (coronary artery disease) 2005 [place] in 1997. Had a stent placed in 2008 c/b coronary artery dissection and that lead to a CABG x1 in 2008 Former smoker quit 1997 Hyperlipidemia Hypertension Intermittent self-catheterization of bladder Urge incontinence of urine PAST SURGICAL HISTORY Procedure Laterality Date ARTHRP KNE CONDYLEANDPLATU MEDIALANDLAT COMPARTMENTS 10/30/2018 right CABG (1) VEIN GRAFT AND ARTERIAL GRAFT 2008 coronary dissection during stent placement [facility] INNERVATED FACIAL NRV UNIL CYSTO.PANENDO 11/24/2021 Dr. Dye CYSTO.PANENDO 05/31/2022 CYSTO.PANENDO N/A 06/04/2023 CYSTOSCOPY 03/29/2017 Dr. Fady Dye - [facility] LEFT HEART CATH,PERCUTANEOUS 05/11/2003 Cardiac cath, [...] done by Nava Back LPN, [facility] Social History Tobacco Use Smoking status: [...] things were worse (more content not included)... [facility] 12-12-2023 History of Present illness Narrative [...] Diagnosis Date CAD (coronary artery disease) 2004 [place] in 1997. Had a stent placed in [...] 03/29/2017 Dr. Fady Dye - [facility] LEFT HEART CATH,PERCUTANEOUS 05/11/2003 Cardiac cath, [...] done by Nava Back LPN, [facility] Social History Tobacco Use Smoking status: [...] times a day documented in this encounter [facility] 12-12-2023 Nurse Note Post Void Residual done on patient with 110 cc residual volume remaining. notified. Fela Teran LPN [facility] 12-12-2023 Nurse Note Post Void Residual done on patient with 110 cc residual volume remaining. notified. Fela Teran LPN documented in this encounter [facility] 11-13-2023 Telephone encounter Note Faahd Sotelo [phone] Returned call to patient. Got up 7 [...] call. Daija Lares PA-C 11/13/2023 10:48 AM [facility] Work Phone: 11-13-2023 Miscellaneous Notes Fahad Sotelo [phone] Returned call to patient. Got up 7 [...] cathing as well. documented in this encounter [facility] 11-13-2023 Telephone encounter Note Pt states that he has had difficulty urinating the past couple days. He say he has to hold his breath and push out the urine. Also states he is having difficulty with cathing as well. [facility] 11-02-2023 History of Present illness Narrative [...] History: Diagnosis Date CAD (coronary artery disease) ([facility]) Closed torus fracture of upper end of left fibula 08/21/2022 Complete rotator cuff tear or rupture of right shoulder, not specified as traumatic 05/04/2021 HLD (hyperlipidemia) ([facility]/HCC) HTN (hypertension) ([facility]) Myocardial infarct ([facility]) Rotator cuff tear left Past Surgical History: [...] To be determined. documented in this encounter [facility] 09-11-2023 Telephone encounter Note Called to follow [...] will let me know if this helps [facility] 09-11-2023 Miscellaneous Notes Called to follow [...] if this helps documented in this encounter [facility] 08-31-2023 Telephone encounter Note Called to [...] Will call with how he is feeling [facility] Work Phone: 08-31-2023 Miscellaneous Notes Called [...] he is feeling documented in this encounter [facility] 08-31-2023 History of Present illness Narrative UDS interpretation 300mls capacity Lots of pabd activity Strong desire at 270, No obvious DO or rise in pdet with permission to void Normal compliance Cathed for 300 documented in this encounter [facility] 08-31-2023 Nurse Note [facility] [...] understanding of instructions given. Martha Kelly RN [facility] 08-31-2023 Nurse Note [facility] [...] states an understanding of instructions given. Martha Kelly, RN documented in this encounter [facility] 08-17-2023 Telephone encounter Note Fahad Sotelo [phone] Returned call to patient about dysuria. Still cathing 4x/day. Urine culture still in process but will send empiric antibiotic over until culture results. He expressed appreciation for the call. Daija Lares PA-C 08/17/2023 11:11 AM [facility] 08-17-2023 Miscellaneous Notes Fahad Sotelo [phone] Returned call to patient about dysuria. Still cathing 4x/day. Urine culture still in process but will send empiric antibiotic over until culture results. He expressed appreciation for the call. Daija Lares PA-C 08/17/2023 11:11 AM documented in this encounter [facility] 08-15-2023 Telephone encounter Note Fahad Sotelo [phone] Returned call to patient. Complaining of urinary frequency and urgency. Last night voiding or needing to self cath every 90 minutes or so. Small volumes. Keeping close record of urination. Bowel function is at baseline. On home bowel regimen. Discussed that we should r/o UTI since he was recently instrumented. He is unsure how close a [facility] lab is from him. Possibly closest to [place]. He will go there to drop off a sample. Daija Lares PA-C 08/15/2023 11:45 AM [facility] Work Phone: 08-15-2023 Miscellaneous Notes Fahad Sotelo [phone] Returned call to patient. Complaining of urinary frequency and urgency. Last night voiding or needing to self cath every 90 minutes or so. Small volumes. Keeping close record of urination. Bowel function is at baseline. On home bowel regimen. Discussed that we should r/o UTI since he was recently instrumented. He is unsure how close a [facility] lab is from him. Possibly closest to [place]. He will go there to drop off a sample. Daija Lares PA-C 08/15/2023 11:45 AM documented in this encounter [facility] 08-09-2023 Telephone encounter Note Fahad Sotelo had dilation on 08/02/2023 with plan to remove Duncan after 2-5 days and then resume ISC QID. Scheduled for UDS on 08/31/2023. Bladder is reportedly poorly compliant with small capacity. Called Fahad Sotelo. He reports that he removed Duncan on 08/04/2023. Yesterday, he started having hesitancy and getting larger volumes when he caths. [place] urge to cath 6-7 times yesterday. He [...] does not feel like symptoms are improving. Coryr Gregory APRN.NAVEEN [facility] Work Phone: 08-09-2023 Miscellaneous Notes Fahad Sotelo had dilation on 08/02/2023 with plan to remove Duncan after 2-5 days and then resume ISC QID. Scheduled for UDS on 08/31/2023. Bladder is reportedly poorly compliant with small capacity. Called Fahad Sotelo. He reports that he removed Duncan on 08/04/2023. Yesterday, he started having hesitancy and getting larger volumes when he caths. [place] urge to cath 6-7 times yesterday. He [...] feel like symptoms are improving. Corry Gregory APRN.NAVEEN ----- Message from Maite Glass MA sent at 08/09/2023 8:45 AM EDT ----- Patient feels like he has to urinate all the time when he does go he has to hold his breath When he self caths a lot of urine comes out He is asking for a call Thanks Maite documented in this encounter [facility] 08-09-2023 Telephone encounter Note ----- Message from Maite Glass MA sent at 08/09/2023 8:45 AM EDT ----- Patient feels like he has to urinate all the time when he does go he has to hold his breath When he self caths a lot of urine comes out He is asking for a call Thanks Maite [facility] 08-02-2023 Note HNO ID: [id number] Author: ADDIE MOREIRA APRN.DEPARTMENT ADMINISTRATOR Service: Anesthesiology Author Type: Nurse [employer] Type: Anesthesia Procedure Notes Filed: 08/02/2023 09:31 Note Text: ANESTHESIOLOGY PROCEDURE NOTE Airway General Information Procedure Start Time/Medication Administration: 08/02/2023 9:09 AM Procedure End Time: 08/02/2023 9:30 AM Patient location during procedure: OR Timeout Performed Pre-procedure: timeout performed Consent Obtained: Yes Patient identity confirmed: arm band Staffing Performed by: anesthesiologist and DEPARTMENT ADMINISTRATOR Indications and Patient Condition Indications for airway [...] no Airway not difficult SIGNATURE: Addie Moreira APRN.DEPARTMENT ADMINISTRATOR PATIENT NAME: Fahad Sotelo DATE: August 02, 2023 TIME: 9:30 AM CSN: [id number] [facility] 07-11-2023 Telephone encounter Note Called patient re: urine culture results He is not having symptoms Because we are planning a procedure I would rec treatment Abx sent to his pharmacy [facility] 07-11-2023 Miscellaneous Notes Called patient re: urine culture results He is not having symptoms Because we are planning a procedure I would rec treatment Abx sent to his pharmacy documented in this encounter [facility] 07-05-2023 History and physical note HISTORY [...] jayant-operative course: CAD (coronary artery disease) Assessment: SC in 1997. Had a stent placed in [...] have a large neck STOP-Bang Score: 3 [id number] Score: Age: 65-74 Sex: male CHF history: No Hypertension history: Yes Stroke/TIA/thromboembolism history: No Vascular disease history: Yes Diabetes history: No [id number] Score: 3 ARISCAT Score: Age: 51-80 Preoperative [...] Diagnosis Date CAD (coronary artery disease) 2005 SC in 1997. Had a stent placed in 2008 c/b coronary artery dissection and that lead to a CABG x1 in 2008 Former smoker quit 1997 Hyperlipidemia Hypertension Intermittent self-catheterization of bladder Urge incontinence of urine PAST SURGICAL HISTORY Procedure Laterality Date ARTHRP KNE CONDYLE&PLATU MEDIAL&LAT COMPARTMENTS 10/30/2018 right CABG (1) VEIN GRAFT & ARTERIAL GRAFT 2008 coronary dissection during stent placement [facility] INNERVATED FACIAL NRV UNIL CYSTO.PANENDO 11/24/2021 Dr. Dye CYSTO.PANENDO 05/31/2022 CYSTO.PANENDO N/A 06/04/2023 CYSTOSCOPY 03/29/2017 Dr. Fady Dye - [facility] LEFT HEART CATH,PERCUTANEOUS 05/11/2003 Cardiac cath, [...] done by Nava Back LPN, [facility] FAMILY HISTORY Problem Relation Age of [...] fevers. Neuro: No history of TIA's, stroke, COMMERCIAL DRONE PILOT tumor, impaired sensorium, hemiplegia, paraplegia or quadraplegia. No neurological symptoms or problems. Respiratory: No history of current cough or dyspnea, or pneumonia in the past 6 weeks. No history of respiratory/pulmonary symptoms or problems. Cardiovascular: Positive for: HLD, Hypertension + CAD s/p CABG 2005 on ASA No recent chest pain, SOB. [...] Laterality Modality -- -- [place] [address] Nuclear Medicine Report Signed Patient: Fahad Sotelo MR#: [id number] : 1950 Acct:[id number] Age/Sex: 72 / M ADM Date: 06/27/23 Loc: [place] Attending Dr: Tamanna Joshua M.D. Ordering Physician: Tamanna Joshua M.D. Date of Service: 06/27/23 Procedure(s): NM rosenda perf SPECT rest str Accession Number(s): [id number] cc: STANTON VELASCO ; Tamanna Joshua M.D. Patient Name: FAHAD SOTELO MR#: [id number] : 1950 Exam Date: 06/27/2023 Ordering Doctor: [...] nuclear medicine myocardial perfusion scan. ECHO Order: [id number] Narrative PERFORMED AT [facility] LOCATION:[place] [id number] Patient: AMANDA Shelby Exam Date: 06/07/2022 : 1950 Gender:M Ordering : DR TAMANNA JOSHUA M.D. Admission #: [id number] Family : DR STANTON VELASCO M.D. Order #: [id number] CLICK HERE TO VIEW EXAM ECHOCARDIOGRAM REPORT [...] Last Resulted: 06/07/22 12:00 AM Received From: [facility] No new labs or tests Instructions Given to Patient: Instructions located in the after visit summary. Patient given verbal and written preop instructions and voices comprehension and compliance. SIGNATURE: Rigo Cano APRN.CNP PATIENT NAME: Fahad Sotelo DATE: 07/05/2023 TIME: 1:35 PM [facility] 07-05-2023 History and physical note HISTORY [...] jayant-operative course: CAD (coronary artery disease) Assessment: SC in 1997. Had a stent placed in [...] have a large neck STOP-Bang Score: 3 [id number] Score: Age: 65-74 Sex: male CHF history: No Hypertension history: Yes Stroke/TIA/thromboembolism history: No Vascular disease history: Yes Diabetes history: No [id number] Score: 3 ARISCAT Score: Age: 51-80 Preoperative [...] Diagnosis Date CAD (coronary artery disease) 2005 SC in 1997. Had a stent placed in 2008 c/b coronary artery dissection and that lead to a CABG x1 in 2008 Former smoker quit 1997 Hyperlipidemia Hypertension Intermittent self-catheterization of bladder Urge incontinence of urine PAST SURGICAL HISTORY Procedure Laterality Date ARTHRP KNE CONDYLE&PLATU MEDIAL&LAT COMPARTMENTS 10/30/2018 right CABG (1) VEIN GRAFT & ARTERIAL GRAFT 2008 coronary dissection during stent placement [facility] INNERVATED FACIAL NRV UNIL CYSTO.PANENDO 11/24/2021 Dr. Dye CYSTO.PANENDO 05/31/2022 CYSTO.PANENDO N/A 06/04/2023 CYSTOSCOPY 03/29/2017 Dr. Fady Dye - [facility] LEFT HEART CATH,PERCUTANEOUS 05/11/2003 Cardiac cath, [...] done by Nava Back LPN, [facility] FAMILY HISTORY Problem Relation Age of [...] fevers. Neuro: No history of TIA's, stroke, COMMERCIAL DRONE PILOT tumor, impaired sensorium, hemiplegia, paraplegia or quadraplegia. [...] Laterality Modality -- -- [place] [address] Nuclear Medicine Report Signed Patient: Fahad Sotelo MR#: [id number] : 1950 Acct:[id number] Age/Sex: 72 / M ADM Date: 06/27/23 Loc: NM Attending Dr: Tamanna Joshua M.D. Ordering Physician: Tamanna Joshua M.D. Date of Service: 06/27/23 Procedure(s): NM rosenda perf SPECT rest str Accession Number(s): [id number] cc: STANTON VELASCO ; Tamanna Joshua M.D. Patient Name: FAHAD SOTELO MR#: [id number] : 1950 Exam Date: 06/27/2023 Ordering Doctor: [...] nuclear medicine myocardial perfusion scan. ECHO Order: [id number] Narrative PERFORMED AT [facility] LOCATION:[place] [address] Patient: AMANDA Shelby Exam Date: 06/07/2022 : 1950 Gender:M Ordering : DR TAMANNA JOSHUA M.D. Admission #: [id number] Family : DR STANTON VELASCO M.D. Order #: [id number] CLICK HERE TO VIEW EXAM ECHOCARDIOGRAM REPORT [...] Last Resulted: 06/07/22 12:00 AM Received From: [facility] No new labs or tests Instructions Given to Patient: Instructions located in the after visit summary. Patient given verbal and written preop instructions and voices comprehension and compliance. SIGNATURE: Rigo Cano APRN.CNP PATIENT NAME: Fahad Sotelo DATE: 07/05/2023 TIME: 1:35 PM documented in this encounter [facility] 05-23-2024 Instructions Rigo Cano APRN.COMMERCIAL REAL ESTATE MANAGER - 07/05/2023 10:06 AM EDT PATIENT PREOPERATIVE INSTRUCTIONS Louie Salomon MD has scheduled you for your procedure at this surgery center: [facility]: [phone] --[address] [place] [address]. Please read below carefully for your personalized [...] Procedures: - YOU MUST HAVE A RESPONSIBLE HEALTHCARE ACCOUNT MANAGER TAKE YOU HOME. A ROLLER DIE CUTTING MACHINE OPERATOR OR CHEMICAL PRODUCTION MACHINE OPERATOR CANNOT BE MADE A RESPONSIBLE HEALTHCARE ACCOUNT MANAGER. - We recommend that a responsible person [...] Advance Directive, please fax a copy to [phone] or email to for it to be [...] Rigo Cano APRN.NAVEEN documented in this encounter [facility] 06-20-2023 History of Present illness Narrative Images from the original note were not included. [facility] UROLOGY NEW [...] Diagnosis Date CAD (coronary artery disease) 2005 SC in 1997. Had a stent placed in [...] 03/29/2017 Dr. Fady Dye - [facility] LEFT HEART CATH,PERCUTANEOUS 05/11/2003 Cardiac cath, [...] done by Nava Back LPN, [facility] FAMILY HISTORY FAMILY HISTORY Problem Relation [...] tract surveillance Louie Salomon MD Associate Staff [facility] Department of Urology I spent a total of 30 minutes on the date of the service which included preparing to see the patient, [id number] patient care, completing clinical documentation, obtaining and/or reviewing separately obtained history, performing a medically appropriate examination, counseling and educating the patient/family/caregiver, and ordering medications, tests, or procedures. >50% of time was devoted to patient counseling. Post Void Residual done on patient with 0 cc residual volume remaining. MD notified. Leoncio Zavala MA documented in this encounter [facility] 06-20-2023 Note HNO ID: [id number] Author: DAIJA LARES PA-C Service: ? Author Type: Physician Type: Progress Notes Filed: 09/27/2023 11:19 Note Text: [facility] UROLOGY NEW [...] Diagnosis Date CAD (coronary artery disease) 2005 SC in 1997. Had a stent placed in [...] 2008 coronary dissection during stent placement [facility] INNERVATED FACIAL NRV UNIL CYSTO.PANENDO 11/24/2021 Dr. Dye CYSTO.PANENDO 05/31/2022 CYSTO.PANENDO N/A 06/04/2023 CYSTOSCOPY 03/29/2017 Dr. Fady Dye - [facility] LEFT HEART CATH,PERCUTANEOUS 05/11/2003 Cardiac cath, [...] Procedure done by Nava Back LPN, [facility] FAMILY HISTORY FAMILY HISTORY Problem Relation [...] facility-administered medications for (more content not included)... [facility] 06-20-2023 Note HNO ID: [id number] Author: LEONCIO ZAVALA MA Service: ? Author Type: Saloonkeeper Type: Progress Notes Filed: 06/20/2023 15:02 Note Text: Post Void Residual done on patient with 0 cc residual volume remaining. notified. Leoncio Zavala MA [facility] 06-11-2023 Telephone encounter Note Images from [...] and curved since cystoscopy without any problems [facility] 06-11-2023 Miscellaneous Notes Images from the original note were not included. Radha Ramos MD You 2 days ago Thank you, patient would use what he is comfortable with. Thank you Radha Raoms MD Phoned pt to inform of response, [...] was sent to his vendor of choice, [employer]. Letter to [employer] indicated 16 gu[place] strait tip. Pt prefers to use coude tip. Checking with provider if to use strait or coude ([employer] order written for strait tip) documented in this encounter [facility] 06-10-2023 Telephone encounter Note Please update the patient , keflex sent to pharmacy. Radha Ramos MD [facility] 06-10-2023 Miscellaneous Notes Please update the patient , keflex sent to pharmacy. Radha Ramos MD documented in this encounter [facility] 06-08-2023 Telephone encounter Note Pt arrived for nurse visit duncan catheter removal post 06/04/23 office cystoscopy for stricture dilation. He will resume ISC as instructed . Noted that letter was sent to his vendor of choice, [employer]. Letter to [employer] indicated 16 gu[place] strait tip. Pt prefers to use coude tip. Checking with provider if to use strait or coude ([employer] order written for strait tip) [facility] 06-08-2023 Note Addended by: KRIS VENEGAS on: 06/08/2023 03:38 PM Modules accepted: Orders [facility] 06-08-2023 Miscellaneous Notes Addended by: KRIS VENEGAS on: 06/08/2023 03:38 PM Modules accepted: Orders documented in this encounter [facility] 06-08-2023 Nurse Note Pt arrives, ambulatory for duncan catheter removal post 06/04/23 office cystoscopy for stricture dilation. Pt admits to increase in bladder spasms, discomfort in shaft of penis and urethra, burning discomfort in penis and bladder area. Intermittent urethral leakage, admits to intermittent small amount of bloody globs ; admits he struggles with regular bowel movements. 18 gu[place] STRAIT duncan catheter attached to leg bag, [...] update on strait or coude for ISC. [facility] 06-08-2023 Nurse Note Pt arrives, ambulatory for duncan catheter removal post 06/04/23 office cystoscopy for stricture dilation. Pt admits to increase in bladder spasms, discomfort in shaft of penis and urethra, burning discomfort in penis and bladder area. Intermittent urethral leakage, admits to intermittent small amount of bloody globs ; admits he struggles with regular bowel movements. 18 gu[place] STRAIT duncan catheter attached to leg bag, [...] coude for ISC. documented in this encounter [facility] 06-07-2023 Telephone encounter Note Spoke with patient Discussed bladder spasms/leakage NV tomorrow can assess need for straight cath UA. OK for patient to take Tylenol for discomfort. Will provide 16fr. ISC catheter sample for patient to use as he currently only has 14 fr. At home. Pt verbalizes understanding of plan and declines further questions/concerns at this time. [facility] 06-07-2023 Miscellaneous Notes Spoke with patient [...] convenience. Please advise. documented in this encounter [facility] 06-07-2023 Telephone encounter Note Pt called the office; stated that he has an appt in office tomorrow for catheter removal. Pt stated that he has leaking, a burning sensation, and is feeling the need to urinate. Pt is requesting a phone call at your earliest convenience. Please advise. [facility] 06-06-2023 Telephone encounter Note Returning phone call to patient. Updated patient that catheter order was sent to [employer]. Patient states he's been leaking around catheter. Explained to patient the reasons for this - constipation, bladder spasms, kink in tubing. Patient adjusted securing device d/t pulling. Admits to constipation - on bowel regimen. Scheduled for NV for duncan removal on 06/08/2023 at 3pm. Patient in agreement with plan. Shameka Carrillo RN [facility] 06-06-2023 Miscellaneous Notes Returning phone call to patient. Updated patient that catheter order was sent to [employer]. Patient states he's been leaking around catheter. Explained to patient the reasons for this - constipation, bladder spasms, kink in tubing. Patient adjusted securing device d/t pulling. Admits to constipation - on bowel regimen. Scheduled for NV for duncan removal on 06/08/2023 at 3pm. Patient in agreement with plan. Shameka Carrillo RN ISC catheter order sent to [employer]. Ordered for 3 months. 16F straight daily to keep stricture open. Will call to update patient. Shameka Carrillo RN Fahad is calling Radha Ramos MD today to request catheters to be sent to [employer]. Please advise. Phone number: [phone] Patient has been identified by name and birthdate. Duration of symptoms: N/A Person calling: self Call patient at: at home [phone] (home) Was an appointment scheduled: No Closing statement: Results or non-symptom based questions: Thank you for calling [facility], your call will be returned within the next business day. Thank you, Oneyda Blackmon documented in this encounter [facility] 06-06-2023 Telephone encounter Note ISC catheter order sent to [employer]. Ordered for 3 months. 16F straight daily to keep stricture open. Will call to update patient. Shameka Carrillo RN [facility] 06-06-2023 Telephone encounter Note Fahad is calling Radha Ramos MD today to request catheters to be sent to [employer]. Please advise. Phone number: [phone] Patient has been identified by name and birthdate. Duration of symptoms: N/A Person calling: self Call patient at: at home [phone] (home) Was an appointment scheduled: No Closing statement: Results or non-symptom based questions: Thank you for calling [facility], your call will be returned within the next business day. Thank you, Oneyda Blackmon [facility] 06-04-2023 Procedure note UNIVERSAL PROTOCOL / [...] Visit completed when applicable. DIAZ Dykes MD [facility] 06-04-2023 Procedure note UNIVERSAL PROTOCOL / [...] revealing trabeculated urinary bladder. An 18 fr [place] tip catheter passed over the guide wire for 5 days. Findings: two tight areas of the urethra noted. Trabeculated urinary bladder. Discussed referring to Dr. Louie Salomon to discuss further management of the urethral stricture Patient will resume cathing with 16 Fr straight catheter once daily to keep the area of the stricture patent. Radha Ramos MD documented in this encounter [facility] 06-04-2023 Nurse Note PROCEDURE NURSE ASSESSMENT [...] patient verbalizes understanding: yes Kiesha Martínez MA [facility] 06-04-2023 Instructions Kiesha Martínez MA - [...] with drinking extra fluids. Please call the [employer] office at [phone] Sunday-Sunday 8 am - 5 pm with any questions you may have and ask for the Urology nurses. If you call after 5 PM or on the weekends, please call [phone] documented in this encounter [facility] 06-04-2023 Nurse Note PROCEDURE NURSE ASSESSMENT [...] Kiesha Martínez MA documented in this encounter [facility] 06-04-2023 Procedure note Procedure(s): CYSTOSCOPY; URETHRAL [...] revealing trabeculated urinary bladder. An 18 fr [place] tip catheter passed over the guide wire for 5 days. Findings: two tight areas of the urethra noted. Trabeculated urinary bladder. Discussed referring to Dr. Louie Salomon to discuss further management of the urethral stricture Patient will resume cathing with 16 Fr straight catheter once daily to keep the area of the stricture patent. Radha Ramos MD [facility] 05-15-2023 Instructions Nithya Rhodes PA-C - 05/15/2023 3:54 PM EDT [facility] CYSTOSCOPY: The cystoscope is an instrument similar [...] twice a day. documented in this encounter [facility] 05-15-2023 History of Present illness Narrative [facility] [...] Diagnosis Date CAD (coronary artery disease) 2005 SC in 1997. Had a stent placed in [...] 2008 coronary dissection during stent placement [facility] INNERVATED FACIAL NRV UNIL CYSTO.PANENDO 11/24/2021 Dr. Dye CYSTO.PANENDO 05/31/2022 CYSTOSCOPY 03/29/2017 Dr. Fady Dye - [facility] LEFT HEART CATH,PERCUTANEOUS 05/11/2003 Cardiac cath, L [...] done by Nava Back LPN, [facility] Past Social History: Social History Tobacco [...] Via bladder scan. documented in this encounter [facility] 06-23-2022 History of Present illness Narrative [...] Diagnosis Date CAD (coronary artery disease) 2004 SC in 1997. Had a stent placed in [...] Nehemiah Gilbert PA-C documented in this encounter [facility] 06-23-2022 History of Present illness Narrative [...] 2022 1:34 PM documented in this encounter [facility] 05-31-2022 Procedure note Procedure(s): CYSTOSCOPY; URETHRAL [...] scope safely, did dilate the stricture with Mcl[place] dilators from size 14 to 24 Fr, [...] Radha Ramos MD documented in this encounter [facility] 05-31-2022 Instructions Rigo Martin WAX PATTERN REPAIRER - 05/31/2022 2:11 PM EDT After your [...] Please call the [facility] office at [phone] Sunday-Sunday 8 am - 5 pm with any questions you may have and ask for the Urology nurses. If you call after 5 PM or on the weekends, please call [phone] documented in this encounter [facility] 05-31-2022 Nurse Note PROCEDURE NURSE ASSESSMENT [...] Rigo Martin LPN documented in this encounter [facility] 04-25-2022 Instructions Nithya Rhodes PA-C - 04/25/2022 9:31 AM EDT [facility] CYSTOSCOPY: The cystoscope is an instrument similar [...] help with urgency documented in this encounter [facility] 04-25-2022 History of Present illness Narrative PVR = 0 ml Via bladder scan. Had patient demonstrate cathing to see difficulty Did see resistance proximal urethra Patient does have L hand dexterity issues making it a little more difficult Able to pass catheter, few drops of urine in return Offered patient to try other catheters, patient declined [facility] [...] Diagnosis Date CAD (coronary artery disease) 2005 SC in 1997. Had a stent placed in [...] 2008 coronary dissection during stent placement [facility] IN[facility] NRV UNIL CYSTO.PANENDO 11/24/2021 Dr. Dye CYSTOSCOPY 03/29/2017 Dr. Fady Dye - [facility] LEFT HEART CATH,PERCUTANEOUS 05/11/2003 Cardiac cath, [...] done by Nava Back LPN, [facility] Past Social History: Social History Tobacco [...] Nithya Rhodes PA-C documented in this encounter [facility] 11-15-2021 History of Present illness Narrative [...] Diagnosis Date CAD (coronary artery disease) 2004 SC in 1997. Had a stent placed in [...] Kev Ferrell MD documented in this encounter [facility] 11-08-2021 History of Present illness Narrative [...] Kev Ferrell MD documented in this encounter [facility] 11-08-2021 History of Present illness Narrative f/u rt shoulder replacement documented in this encounter [facility] 11-07-2021 Miscellaneous Notes Sent message to [facility] to assist in rescheduling Chandrika patient, received message back that they could not accommodate, sent a message to [facility] to reschedule patient. documented in this encounter [facility] 10-31-2021 Miscellaneous Notes Pt needs nurse visit to troubleshoot CIC and if true issues needs cysto Ordered cysto so can get on schedule just in case as Dr. BOWER books up Routed to [employer] to please assist in scheduling 1 nurse [...] hitting his intestines. documented in this encounter [facility] 06-23-2021 Miscellaneous Notes We have received fax from [employer]. icd-10 code: R33.9 retention of urine, unspecified. [...] signed and dated. documented in this encounter [facility] 06-16-2021 History of Present illness Narrative [...] 2021 12:51 PM documented in this encounter [facility] 06-14-2021 History of Present illness Narrative [...] 2021 9:56 AM documented in this encounter [facility] 05-24-2021 Instructions Nehemiah Gilbert PA-C - [...] the incision anymore. documented in this encounter [facility] 05-24-2021 History of Present illness Narrative [...] 20. He is being set up for [facility] PT and will have a [...] LEATHA Kay PA-C documented in this encounter [facility] 05-24-2021 History of Present illness Narrative [...] 2021 9:56 AM documented in this encounter [facility] 05-09-2021 Miscellaneous Notes Spoke to the [...] number in contacts. documented in this encounter [facility] 05-04-2021 Note HNO ID: [id number] Author: Cheryl Trevino RN Service: Care Management [...] 04, 2021 TIME: 11:50 AM PAGER/CONTACT #: [phone] [facility] 05-04-2021 Note HNO ID: [id number] Author: Cheryl Trevino RN Service: Care Management Author Type: Registered Nurse Type: Care Mgt Progress Note Filed: 05/04/2021 11:39 AM Note Text: CARE MANAGEMENT DISCHARGE NOTE SERVICE DATE: 05/04/2021 SERVICE TIME: 11:38 AM LOS: 0 days Admission Date: 05/02/2021 DISCHARGE ARRANGEMENT (list agency and phone number) Discharge Arrangement: Care Home Facility Was an expedited discharge program used?: [...] Name/Phone: Stanton Velasco II Other Caregiver Name/Phone: [facility] ARRANGEMENTS: Transportation Arrangements: Ambulance/[facility] and Phone #:: [facility] [phone] Date of Trip: 05/04/21 Time of Trip: 1600 Type of Service: BLS Non-emergency Is Patient Medicaid Pending?: No Rn Licensed Practical Location: [place] Destination: [facility] Financial Care Management Responsibility: None Discharge Information Row Name Admission (Current) from 05/02/[address] Facility Agency [facility] SIGNATURE: Cheryl Trevino RN PATIENT NAME: Fahad Sotelo DATE: May 04, 2021 TIME: 11:38 AM PAGER/CONTACT #: [phone] [facility] 05-03-2021 Note HNO ID: [id number] Author: Cheryl Trevino RN Service: Care Management Author Type: Registered Nurse Type: Care Mgt Progress Note Filed: 05/03/2021 4:16 PM Note Text: CARE MANAGEMENT PROGRESS NOTE SERVICE DATE: 05/03/2021 SERVICE TIME: 4:14 PM LOS: 0 days [facility] can accept pending precert. [facility] tasked to start precert. SIGNATURE: Cheryl Trevion RN PATIENT NAME: Fahad Sotelo DATE: May 03, 2021 TIME: 4:14 PM PAGER/CONTACT #: [phone] [facility] 05-03-2021 Note HNO ID: [id number] Author: Cheryl Trevino RN Service: Care Management Author Type: Registered Nurse Type: Care Mgt Progress Note Filed: 05/03/2021 2:31 PM Note Text: CARE MANAGEMENT PROGRESS NOTE SERVICE DATE: 05/03/2021 SERVICE TIME: 2:30 PM LOS: 0 days [place] of Choice Given: Yes Reason Not Given: Unable to complete with this assessment - revisit Level of Care Discussed: Care Home Facility Financial Disclosure Provided: Yes Provider List: Care Home Facility Provider list within the patient's requested geographic area shared with the patient/family: Yes Quality and resource use metrics shared with the patient that are relevant to the patient's goals of care and treatment preferences:: Yes Referrals to 1. [facility], 2. [facility]. Patient will need precert. SIGNATURE: Cheryl Trevino RN PATIENT NAME: Fahad Sotelo DATE: May 03, 2021 TIME: 2:30 PM PAGER/CONTACT #: [phone] [facility] 05-03-2021 Note HNO ID: [id number] Author: Cheryl Trevino RN Service: Care Management Author Type: Registered Nurse Type: Care Mgt Initial Assessment Filed: 05/03/2021 12:13 PM Note Text: CARE MANAGEMENT: ASSESSMENT AND DISCHARGE PLAN SERVICE DATE: May 03, 2021 SERVICE TIME: 12:12 PM PRIMARY CARE PHYSICIAN: Stanton Velasco II, MD ADMISSION STATUS: Extended Recovery MEDICAL: [facility] Patient/[place] [employer] Stated Goals: To return home to life as it was Health Insurance: Comment ([facility]) Health Issues Impacting Discharge Plan: Newly diagnosed Newly Diagnosed: TSA Last Discharge Date: 12/19/19 Is this Within the Past 30 days? Last discharge within 30 days: No Advance Directive: Current Advance Directive: Health Care Power of Test Engine Evaluator In Chart: Yes Up To Date and [...] Walker;Cane Has the Patient Been in a Care Home Facility in the Past 30 days?: No [...] Completely I feel financially burdened by my [id number] expenses for my prescription medication:: 0 - Disagree Completely Risk Score: 0 Patient is categorized as: Low risk < 2 Are you interested in bedside delivery of your medications? Yes Is Patient Psychosocially Complex?: No ASSESSMENT AND PLAN: Medical Needs: Medical Needs: Two or more chronic diseases Psychosocial Needs: Psychosocial Needs: None [place] OF CHOICE EXPLAINED: [place] of Choice Given: No Reason Not Given: Unable to complete with this assessment - revisit POTENTIAL TRANSITION PLANS Home;Home Care;Care Home Facility/Intermediate Care Facility Patient from home alone. Patient self caths twice a day. Patient is concerned about going home with outpatient PT. Would like HHC or SNF if he qualifies. Patient has an outpatient PT at [facility] on . SIGNATURE: Cheryl Trevino RN PATIENT NAME: Fahad Sotelo DATE: May 03, 2021 TIME: 12:12 PM PAGER/CONTACT #: [phone] [facility] 05-03-2021 Note HNO ID: [id number] Author: Christina Salazar PA-C Service: Orthopaedic Surgery Author Type: Physician [place]ognos Architect Type: Progress Notes Filed: 05/03/2021 9:40 AM [...] Electronically signed by: Christina Salazar PA-C Pager: [phone] [facility] 05-02-2021 Note HNO ID: [id number] Author: RT Sherri(R) Service: Radiology Author Type: Electric Meter Repairer Helper Type: Progress Notes Filed: 05/02/2021 11:51 AM Note Text: Radiology Service Progress Note PATIENT NAME: Faahd Sotelo DATE OF SERVICE: May 02, 2021 [...] RT Sherri(R) May 02, 2021 11:51 AM [facility] 05-02-2021 Note HNO ID: [id number] Author: Jeanne Beck APRN.DEPARTMENT ADMINISTRATOR Service: Anesthesiology Author Type: Nurse Air [employer] Pilot Type: Anesthesia Procedure Notes Filed: 05/02/2021 8:28 AM Note Text: ANESTHESIOLOGY PROCEDURE NOTE PIV General Information Procedure Start Time/Medication Administration: 05/02/2021 8:05 AM Patient Location: OR Staffing DEPARTMENT ADMINISTRATOR: Jeanne Beck APRN.DEPARTMENT ADMINISTRATOR Performed by: NATHANIEL Preparation Sterility Preparation: hand hygiene performed prior to procedure Site Prep: Betadine and chlorhexidine Procedure Details Indication: need for IV access Needle Size/Type: 18 gauge angiocath Imaging Guidance Used: No SIGNATURE: Jeanne Beck APRN.CRNA PATIENT NAME: Fahad Sotelo DATE: May 02, 2021 TIME: 8:27 AM CSN: [id number] [facility] 05-02-2021 Note HNO ID: [id number] Author: Jeanne Beck APRN.DEPARTMENT ADMINISTRATOR Service: Anesthesiology Author Type: Nurse Air [employer] Pilot Type: Anesthesia Procedure Notes Filed: 05/02/2021 8:22 AM Note Text: ANESTHESIOLOGY PROCEDURE NOTE Airway General Information Procedure Start Time/Medication Administration: 05/02/2021 7:46 AM Patient location during procedure: OR Timeout Performed Pre-procedure: timeout performed Consent Obtained: Yes 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 Staffing DEPARTMENT ADMINISTRATOR: Jeanne Beck APRN.DEPARTMENT ADMINISTRATOR Performed by: NATHANIEL Indications and Patient Condition [...] May 02, 2021 TIME: 8:22 AM CSN: [id number] [facility] 05-02-2021 Note HNO ID: [id number] Author: Jeanne Beck APRN.CRNA Service: Anesthesiology Author Type: Nurse Air [employer] Pilot Type: Anesthesia Procedure Notes Filed: 05/02/2021 7:43 [...] injection (DECADRON), 10 mg SIGNATURE: Jeanne Beck APRN.CRNA PATIENT NAME: Fahad Sotelo DATE: May 02, 2021 TIME: 7:42 AM CSN: [id number] [facility] 01-04-2021 History of Present illness Narrative [...] 2021 11:16 AM documented in this encounter [facility] 12-21-2020 History of Present illness Narrative [...] 2020 11:38 AM documented in this encounter [facility] Evaluation + Plan note Future Appointments Appointment Date:07/28/2024 12:15:00 PM Scheduled Provider:Forest Solorio MD Location[place] Type:[facility] Follow Up [facility] Evaluation + Plan note [facility] Evaluation note Diagnosis Nontraumatic complete tear of right rotator cuff- Primary [facility] Diagnosis S/P reverse total shoulder arthroplasty, right- Primary [facility] noteNo [facility] note* Diagnosis S/P reverse total shoulder arthroplasty, right- Primary [facility]* Diagnosis Urinary retention- Primary Retention of urine, unspecified Self-catheterizes urinary bladder Other specified conditions influencing health status Benign prostatic hyperplasia with weak urinary stream [facility] S/P reverse total shoulder arthroplasty, right- Primary [facility] Diagnosis Chronic knee pain after total replacement of right knee joint- Primary [facility] Diagnosis Stricture of male urethra, unspecified stricture type- Primary Urinary urgency Urgency of urination [facility] Diagnosis Screening for genitourinary condition- Primary Screening for other and unspecified genitourinary condition Stricture of male urethra, unspecified stricture type [facility] Diagnosis Rotator cuff dysfunction, left- Primary History of failed repair of rotator cuff Other postprocedural status Left shoulder pain, unspecified chronicity [facility] Diagnosis History of lumbar fusion Chronic midline low back pain, unspecified whether sciatica present Radiculopathy of lumbar region Thoracic or lumbosacral neuritis or radiculitis, unspecified [facility]* Diagnosis Nontraumatic complete tear of right rotator cuff Rotator cuff arthropathy of right shoulder Arthritis of shoulder Unspecified arthropathy, shoulder region [facility] Diagnosis Stricture of urethral meatus in male, unspecified stricture type- Primary [facility]* Diagnosis Screening for genitourinary condition- Primary Screening for other and unspecified genitourinary condition [facility] Diagnosis Stricture of male urethra, unspecified stricture type- Primary Post-traumatic stricture of anterior urethra Self-catheterizes urinary bladder Other specified conditions influencing health status [facility] Diagnosis Stricture of male urethra, unspecified stricture type- Primary Urinary urgency Urgency of urination Low bladder compliance Urinary frequency [facility] Diagnosis Pre-op evaluation- Primary Preoperative examination, unspecified Coronary artery disease involving grindstone coronary artery of grindstone heart without angina pectoris Mixed hyperlipidemia Essential [...] EDTAssociated Problem(s): CAD (coronary artery disease) Assessment: [place] in 1997. Had a stent placed in [...] of urine, unspecified [facility] Diagnosis Other specified pre-operative examination- Primary Primary osteoarthritis of right knee Primary localized osteoarthrosis, lower leg Essential hypertension Unspecified essential hypertension Hyperlipidemia, unspecified hyperlipidemia type Coronary artery disease involving grindstone coronary artery of grindstone heart without angina pectoris Pre-op evaluation- Primary Preoperative examination, unspecified Rotator cuff tear arthropathy of right shoulder Traumatic arthropathy, shoulder region Essential hypertension Unspecified essential hypertension Coronary artery disease involving grindstone coronary artery of grindstone heart without angina pectoris Obesity, Class I, BMI 30-34.9 Obesity, unspecified Urge incontinence Left shoulder pain, unspecified chronicity Pre-op evaluation- Primary Preoperative examination, unspecified Coronary artery disease involving grindstone coronary artery of grindstone heart without angina pectoris Mixed hyperlipidemia Essential hypertension Unspecified essential hypertension Urge incontinence Cervical spondylosis with myelopathy Obesity, Class I, BMI 30-34.9 Obesity, unspecified [facility] Diagnosis Other specified pre-operative examination- Primary Primary osteoarthritis of right knee Primary localized osteoarthrosis, lower leg Essential hypertension Unspecified essential hypertension Hyperlipidemia, unspecified hyperlipidemia type Coronary artery disease involving grindstone coronary artery of grindstone heart without angina pectoris Pre-op evaluation- Primary Preoperative examination, unspecified Rotator cuff tear arthropathy of right shoulder Traumatic arthropathy, shoulder region Essential hypertension Unspecified essential hypertension Coronary artery disease involving grindstone coronary artery of grindstone heart without angina pectoris Obesity, Class I, BMI 30-34.9 Obesity, unspecified Urge incontinence S/P reverse total shoulder arthroplasty, right Pre-op evaluation- Primary Preoperative examination, unspecified Coronary artery disease involving grindstone coronary artery of grindstone heart without angina pectoris Mixed hyperlipidemia Essential hypertension Unspecified essential hypertension Urge incontinence Cervical spondylosis with myelopathy Obesity, Class I, BMI 30-34.9 Obesity, unspecified [facility] Diagnosis Other specified pre-operative examination- Primary Primary osteoarthritis of right knee Primary localized osteoarthrosis, lower leg Essential hypertension Unspecified essential hypertension Hyperlipidemia, unspecified hyperlipidemia type Coronary artery disease involving grindstone coronary artery of grindstone heart without angina pectoris Pre-op evaluation- Primary Preoperative examination, unspecified Rotator cuff tear arthropathy of right shoulder Traumatic arthropathy, shoulder region Essential hypertension Unspecified essential hypertension Coronary artery disease involving grindstone coronary artery of grindstone heart without angina pectoris Obesity, Class I, BMI 30-34.9 Obesity, unspecified Urge incontinence Chronic knee pain after total replacement of right knee joint Pre-op evaluation- Primary Preoperative examination, unspecified Coronary artery disease involving grindstone coronary artery of grindstone heart without angina pectoris Mixed hyperlipidemia Essential hypertension Unspecified essential hypertension Urge incontinence Cervical spondylosis with myelopathy Obesity, Class I, BMI 30-34.9 Obesity, unspecified [facility] Diagnosis Other specified pre-operative examination- Primary Primary osteoarthritis of right knee Primary localized osteoarthrosis, lower leg Essential hypertension Unspecified essential hypertension Hyperlipidemia, unspecified hyperlipidemia type Coronary artery disease involving grindstone coronary artery of grindstone heart without angina pectoris Pre-op evaluation- Primary Preoperative examination, unspecified Rotator cuff tear arthropathy of right shoulder Traumatic arthropathy, shoulder region Essential hypertension Unspecified essential hypertension Coronary artery disease involving grindstone coronary artery of grindstone heart without angina pectoris Obesity, Class I, BMI 30-34.9 Obesity, unspecified Urge incontinence Nontraumatic complete tear of right rotator cuff Pre-op evaluation- Primary Preoperative examination, unspecified Coronary artery disease involving grindstone coronary artery of grindstone heart without angina pectoris Mixed hyperlipidemia Essential hypertension Unspecified essential hypertension Urge incontinence Cervical spondylosis with myelopathy Obesity, Class I, BMI 30-34.9 Obesity, unspecified [facility] Diagnosis Other specified pre-operative examination- Primary Primary osteoarthritis of right knee Primary localized osteoarthrosis, lower leg Essential hypertension Unspecified essential hypertension Hyperlipidemia, unspecified hyperlipidemia type Coronary artery disease involving grindstone coronary artery of grindstone heart without angina pectoris Right shoulder pain, unspecified chronicity Pre-op evaluation- Primary Preoperative examination, unspecified Rotator cuff tear arthropathy of right shoulder Traumatic arthropathy, shoulder region Essential hypertension Unspecified essential hypertension Coronary artery disease involving grindstone coronary artery of grindstone heart without angina pectoris Obesity, Class I, BMI 30-34.9 Obesity, unspecified Urge incontinence Pre-op evaluation- Primary Preoperative examination, unspecified Coronary artery disease involving grindstone coronary artery of grindstone heart without angina pectoris Mixed hyperlipidemia Essential hypertension Unspecified essential hypertension Urge incontinence Cervical spondylosis with myelopathy Obesity, Class I, BMI 30-34.9 Obesity, unspecified [facility] Diagnosis Other specified pre-operative examination- Primary Primary osteoarthritis of right knee Primary localized osteoarthrosis, lower leg Essential hypertension Unspecified essential hypertension Hyperlipidemia, unspecified hyperlipidemia type Coronary artery disease involving grindstone coronary artery of grindstone heart without angina pectoris Nontraumatic tear of right rotator cuff, unspecified tear extent Acute pain of right shoulder Pre-op evaluation- Primary Preoperative examination, unspecified Rotator cuff tear arthropathy of right shoulder Traumatic arthropathy, shoulder region Essential hypertension Unspecified essential hypertension Coronary artery disease involving grindstone coronary artery of grindstone heart without angina pectoris Obesity, Class I, BMI 30-34.9 Obesity, unspecified Urge incontinence Pre-op evaluation- Primary Preoperative examination, unspecified Coronary artery disease involving grindstone coronary artery of grindstone heart without angina pectoris Mixed hyperlipidemia Essential hypertension Unspecified essential hypertension Urge incontinence Cervical spondylosis with myelopathy Obesity, Class I, BMI 30-34.9 Obesity, unspecified documented in this encounter [facility] note* Diagnosis Other specified pre-operative examination- Primary Primary osteoarthritis of right knee Primary localized osteoarthrosis, lower leg Essential hypertension Unspecified essential hypertension Hyperlipidemia, unspecified hyperlipidemia type Coronary artery disease involving grindstone coronary artery of grindstone heart without angina pectoris Pain in right hip Pain in joint, pelvic region and thigh Pre-op evaluation- Primary Preoperative examination, unspecified Rotator cuff tear arthropathy of right shoulder Traumatic arthropathy, shoulder region Essential hypertension Unspecified essential hypertension Coronary artery disease involving grindstone coronary artery of grindstone heart without angina pectoris Obesity, Class I, BMI 30-34.9 Obesity, unspecified Urge incontinence Pre-op evaluation- Primary Preoperative examination, unspecified Coronary artery disease involving grindstone coronary artery of grindstone heart without angina pectoris Mixed hyperlipidemia Essential hypertension Unspecified essential hypertension Urge incontinence Cervical spondylosis with myelopathy Obesity, Class I, BMI 30-34.9 Obesity, unspecified [facility] Diagnosis Other specified pre-operative examination- Primary Primary osteoarthritis of right knee Primary localized osteoarthrosis, lower leg Essential hypertension Unspecified essential hypertension Hyperlipidemia, unspecified hyperlipidemia type Coronary artery disease involving grindstone coronary artery of grindstone heart without angina pectoris Pre-op evaluation- Primary Preoperative examination, unspecified Rotator cuff tear arthropathy of right shoulder Traumatic arthropathy, shoulder region Essential hypertension Unspecified essential hypertension Coronary artery disease involving grindstone coronary artery of grindstone heart without angina pectoris Obesity, Class I, BMI 30-34.9 Obesity, unspecified Urge incontinence Pre-op evaluation- Primary Preoperative examination, unspecified Coronary artery disease involving grindstone coronary artery of grindstone heart without angina pectoris Mixed hyperlipidemia Essential [...] influencing health status [facility] Diagnosis Other specified pre-operative examination- Primary Primary osteoarthritis of right knee Primary localized osteoarthrosis, lower leg Essential hypertension Unspecified essential hypertension Hyperlipidemia, unspecified hyperlipidemia type Coronary artery disease involving grindstone coronary artery of grindstone heart without angina pectoris Pre-op evaluation- Primary Preoperative examination, unspecified Rotator cuff tear arthropathy of right shoulder Traumatic arthropathy, shoulder region Essential hypertension Unspecified essential hypertension Coronary artery disease involving grindstone coronary artery of grindstone heart without angina pectoris Obesity, Class I, BMI 30-34.9 Obesity, unspecified Urge incontinence Pre-op evaluation- Primary Preoperative examination, unspecified Coronary artery disease involving grindstone coronary artery of grindstone heart without angina pectoris Mixed hyperlipidemia Essential hypertension Unspecified essential hypertension Urge incontinence Cervical spondylosis with myelopathy Obesity, Class I, BMI 30-34.9 Obesity, unspecified Urinary frequency- Primary Urgency of urination Incomplete bladder emptying [facility] Diagnosis Chronic idiopathic constipation- Primary Unspecified constipation 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 Excessive sweating Generalized hyperhidrosis documented in this encounter [facility]* Diagnosis Routine general medical examination at health care facility- Primary Routine general medical examination at a health care facility ACP (advance care planning) Other specified counseling 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 (CMS/HCC) Benign essential [...] specified, unspecified [facility] Other specified pre-operative examination- Primary Primary osteoarthritis of right knee Primary localized osteoarthrosis, lower leg Essential hypertension Unspecified essential hypertension Hyperlipidemia, unspecified hyperlipidemia type Coronary artery disease involving grindstone coronary artery of grindstone heart without angina pectoris Pre-op evaluation- Primary Preoperative examination, unspecified Rotator cuff tear arthropathy of right shoulder Traumatic arthropathy, shoulder region Essential hypertension Unspecified essential hypertension Coronary artery disease involving grindstone coronary artery of grindstone heart without angina pectoris Obesity, Class I, BMI 30-34.9 Obesity, unspecified Urge incontinence Pre-op evaluation- Primary Preoperative examination, unspecified Coronary artery disease involving grindstone coronary artery of grindstone heart without angina pectoris Mixed hyperlipidemia Essential hypertension Unspecified essential hypertension Urge incontinence Cervical spondylosis with myelopathy Obesity, Class I, BMI 30-34.9 Obesity, unspecified Inguinal hernia without obstruction or gangrene, recurrence not specified, unspecified laterality- Primary Overactive bladder Hypertonicity of bladder Incomplete bladder emptying [facility] Diagnosis Benign essential hypertension (CMS/HCC)- Primary Essential hypertension, benign Pulmonary granuloma of histoplasmosis (HCC) (CMS/HCC) Dyslipidemia ([facility]) Other and unspecified hyperlipidemia Allergic rhinitis, unspecified seasonality, unspecified trigger documented in this encounter [facility]* Diagnosis Chronic idiopathic constipation- Primary Unspecified constipation documented in this encounter [facility] HealthcareEvaluation note* Diagnosis Other specified pre-operative examination- Primary Primary osteoarthritis of right knee Primary localized osteoarthrosis, lower leg Essential hypertension Unspecified essential hypertension Hyperlipidemia, unspecified hyperlipidemia type Coronary artery disease involving grindstone coronary artery of grindstone heart without angina pectoris Pre-op evaluation- Primary Preoperative examination, unspecified Rotator cuff tear arthropathy of right shoulder Traumatic arthropathy, shoulder region Essential hypertension Unspecified essential hypertension Coronary artery disease involving grindstone coronary artery of grindstone heart without angina pectoris Obesity, Class I, BMI 30-34.9 Obesity, unspecified Urge incontinence Pre-op evaluation- Primary Preoperative examination, unspecified Coronary artery disease involving grindstone coronary artery of grindstone heart without angina pectoris Mixed hyperlipidemia Essential hypertension Unspecified essential hypertension Urge incontinence Cervical spondylosis with myelopathy Obesity, Class I, BMI 30-34.9 Obesity, unspecified Unilateral groin pain- Primary Abdominal pain, unspecified site [facility] Constipation, unspecified constipation type- Primary Chronic obstructive pulmonary disease, unspecified ([facility]) documented in this encounter [facility] HealthcareEvaluation note* Diagnosis Other specified pre-operative examination- Primary Primary osteoarthritis of right knee Primary localized osteoarthrosis, lower leg Essential hypertension Unspecified essential hypertension Hyperlipidemia, unspecified hyperlipidemia type Coronary artery disease involving grindstone coronary artery of grindstone heart without angina pectoris Pre-op evaluation- Primary Preoperative examination, unspecified Rotator cuff tear arthropathy of right shoulder Traumatic arthropathy, shoulder region Essential hypertension Unspecified essential hypertension Coronary artery disease involving grindstone coronary artery of grindstone heart without angina pectoris Obesity, Class I, BMI 30-34.9 Obesity, unspecified Urge incontinence Pre-op evaluation- Primary Preoperative examination, unspecified Coronary artery disease involving grindstone coronary artery of grindstone heart without angina pectoris Mixed hyperlipidemia Essential hypertension Unspecified essential hypertension Urge incontinence Cervical spondylosis with myelopathy Obesity, Class I, BMI 30-34.9 Obesity, unspecified Obstructive defecation (HCC)- Primary High-tone pelvic floor dysfunction Other specified disorders of female genital organs Constipation due to outlet dysfunction Right shoulder pain, unspecified chronicity- Primary [facility] Other specified pre-operative examination- Primary Primary osteoarthritis of right knee Primary localized osteoarthrosis, lower leg Essential hypertension Unspecified essential hypertension Hyperlipidemia, unspecified hyperlipidemia type Coronary artery disease involving grindstone coronary artery of grindstone heart without angina pectoris Pre-op evaluation- Primary Preoperative examination, unspecified Rotator cuff tear arthropathy of right shoulder Traumatic arthropathy, shoulder region Essential hypertension Unspecified essential hypertension Coronary artery disease involving grindstone coronary artery of grindstone heart without angina pectoris Obesity, Class I, BMI 30-34.9 Obesity, unspecified Urge incontinence Pre-op evaluation- Primary Preoperative examination, unspecified Coronary artery disease involving grindstone coronary artery of grindstone heart without angina pectoris Mixed hyperlipidemia Essential hypertension Unspecified essential hypertension Urge incontinence Cervical spondylosis with myelopathy Obesity, Class I, BMI 30-34.9 Obesity, unspecified Constipation due to outlet dysfunction- Primary Right shoulder pain, unspecified chronicity- Primary [facility] Diagnosis Other specified pre-operative examination- Primary Primary osteoarthritis of right knee Primary localized osteoarthrosis, lower leg Essential hypertension Unspecified essential hypertension Hyperlipidemia, unspecified hyperlipidemia type Coronary artery disease involving grindstone coronary artery of grindstone heart without angina pectoris Pre-op evaluation- Primary Preoperative examination, unspecified Rotator cuff tear arthropathy of right shoulder Traumatic arthropathy, shoulder region Essential hypertension Unspecified essential hypertension Coronary artery disease involving grindstone coronary artery of grindstone heart without angina pectoris Obesity, Class I, BMI 30-34.9 Obesity, unspecified Urge incontinence Pre-op evaluation- Primary Preoperative examination, unspecified Coronary artery disease involving grindstone coronary artery of grindstone heart without angina pectoris Mixed hyperlipidemia Essential hypertension Unspecified essential hypertension Urge incontinence Cervical spondylosis with myelopathy Obesity, Class I, BMI 30-34.9 Obesity, unspecified Right shoulder pain, unspecified chronicity- Primary Closed nondisplaced fracture of acromial end of right clavicle, initial encounter Right shoulder pain, unspecified chronicity [facility] Other specified pre-operative examination- Primary Primary osteoarthritis of right knee Primary localized osteoarthrosis, lower leg Essential hypertension Unspecified essential hypertension Hyperlipidemia, unspecified hyperlipidemia type Coronary artery disease involving grindstone coronary artery of grindstone heart without angina pectoris Pre-op evaluation- Primary Preoperative examination, unspecified Rotator cuff tear arthropathy of right shoulder Traumatic arthropathy, shoulder region Essential hypertension Unspecified essential hypertension Coronary artery disease involving grindstone coronary artery of grindstone heart without angina pectoris Obesity, Class I, BMI 30-34.9 Obesity, unspecified Urge incontinence Pre-op evaluation- Primary Preoperative examination, unspecified Coronary artery disease involving grindstone coronary artery of grindstone heart without angina pectoris Mixed hyperlipidemia Essential hypertension Unspecified essential hypertension Urge incontinence Cervical spondylosis with myelopathy Obesity, Class I, BMI 30-34.9 Obesity, unspecified Right shoulder pain, unspecified chronicity [facility]* Diagnosis Other specified pre-operative examination- Primary Primary osteoarthritis of right knee Primary localized osteoarthrosis, lower leg Essential hypertension Unspecified essential hypertension Hyperlipidemia, unspecified hyperlipidemia type Coronary artery disease involving grindstone coronary artery of grindstone heart without angina pectoris Pre-op evaluation- Primary Preoperative examination, unspecified Rotator cuff tear arthropathy of right shoulder Traumatic arthropathy, shoulder region Essential hypertension Unspecified essential hypertension Coronary artery disease involving grindstone coronary artery of grindstone heart without angina pectoris Obesity, Class I, BMI 30-34.9 Obesity, unspecified Urge incontinence Pre-op evaluation- Primary Preoperative examination, unspecified Coronary artery disease involving grindstone coronary artery of grindstone heart without angina pectoris Mixed hyperlipidemia Essential hypertension Unspecified essential hypertension Urge incontinence Cervical spondylosis with myelopathy Obesity, Class I, BMI 30-34.9 Obesity, unspecified Closed nondisplaced fracture of acromial end of right clavicle, initial encounter [facility]* Diagnosis Left-sided chest pain- Primary 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 Chronic ischemic heart disease Unspecified chronic ischemic heart disease [facility] Left-sided chest pain- Primary 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 [facility] Other specified pre-operative examination- Primary Primary osteoarthritis of right knee Primary localized osteoarthrosis, lower leg Essential hypertension Unspecified essential hypertension Hyperlipidemia, unspecified hyperlipidemia type Coronary artery disease involving grindstone coronary artery of grindstone heart without angina pectoris Pre-op evaluation- Primary Preoperative examination, unspecified Rotator cuff tear arthropathy of right shoulder Traumatic arthropathy, shoulder region Essential hypertension Unspecified essential hypertension Coronary artery disease involving grindstone coronary artery of grindstone heart without angina pectoris Obesity, Class I, BMI 30-34.9 Obesity, unspecified Urge incontinence Pre-op evaluation- Primary Preoperative examination, unspecified Coronary artery disease involving grindstone coronary artery of grindstone heart without angina pectoris Mixed hyperlipidemia Essential hypertension Unspecified essential hypertension Urge incontinence Cervical spondylosis with myelopathy Obesity, Class I, BMI 30-34.9 Obesity, unspecified Unilateral groin pain- Primary Abdominal pain, unspecified site Right inguinal hernia Inguinal hernia without mention of obstruction or gangrene, unilateral or unspecified, (not specified as recurrent) Closed nondisplaced fracture of acromial end of right clavicle with routine healing, subsequent encounter- Primary documented in this encounter [facility] note* Diagnosis Other specified pre-operative examination- Primary Primary osteoarthritis of right knee Primary localized osteoarthrosis, lower leg Essential hypertension Unspecified essential hypertension Hyperlipidemia, unspecified hyperlipidemia type Coronary artery disease involving grindstone coronary artery of grindstone heart without angina pectoris Pre-op evaluation- Primary Preoperative examination, unspecified Rotator cuff tear arthropathy of right shoulder Traumatic arthropathy, shoulder region Essential hypertension Unspecified essential hypertension Coronary artery disease involving grindstone coronary artery of grindstone heart without angina pectoris Obesity, Class I, BMI 30-34.9 Obesity, unspecified Urge incontinence Pre-op evaluation- Primary Preoperative examination, unspecified Coronary artery disease involving grindstone coronary artery of grindstone heart without angina pectoris Mixed hyperlipidemia Essential hypertension Unspecified essential hypertension Urge incontinence Cervical spondylosis with myelopathy Obesity, Class I, BMI 30-34.9 Obesity, unspecified Closed nondisplaced fracture of acromial end of right clavicle with routine healing, subsequent encounter- Primary Closed nondisplaced fracture of acromial end of right clavicle with routine healing, subsequent encounter documented in this encounter [facility] note* Diagnosis Other specified pre-operative examination- Primary Primary osteoarthritis of right knee Primary localized osteoarthrosis, lower leg Essential hypertension Unspecified essential hypertension Hyperlipidemia, unspecified hyperlipidemia type Coronary artery disease involving grindstone coronary artery of grindstone heart without angina pectoris Pre-op evaluation- Primary Preoperative examination, unspecified Rotator cuff tear arthropathy of right shoulder Traumatic arthropathy, shoulder region Essential hypertension Unspecified essential hypertension Coronary artery disease involving grindstone coronary artery of grindstone heart without angina pectoris Obesity, Class I, BMI 30-34.9 Obesity, unspecified Urge incontinence Pre-op evaluation- Primary Preoperative examination, unspecified Coronary artery disease involving grindstone coronary artery of grindstone heart without angina pectoris Mixed hyperlipidemia Essential hypertension Unspecified essential hypertension Urge incontinence Cervical spondylosis with myelopathy Obesity, Class I, BMI 30-34.9 Obesity, unspecified Closed nondisplaced fracture of acromial end of right clavicle with routine healing, subsequent encounter documented in this encounter [facility] course Narrative No data available for this section [facility] Hospital Discharge instructions No data available for this section [facility] Progress note No data available for this section [facility] Reason for referral (narrative)* Diagnostic Procedure Only (Routine) - Pending Review Specialty Diagnoses / Procedures Referred By Contac t Referred To Contact XR IMAGING Diagnoses Nontraumatic complete tear of right rotator cuff Procedures XR SHOULDER GENERAL 3V OR MORE AP/TRUE AP/OTHER RIGHT RADEX SHOULDER COMPLETE MINIMUM 2 VIEWS Nehemiah Gilbert PA-C [address] [place] [address] Xr Imaging Referral ID Status Reason Start Date Expiration Date Visits Requested Visits Authorized [id number] Pending Review Auto-Generat ed Referral 05/16/2021 06/15/2022 1 1 [facility] for referral (narrative)* - Pending Review Specialty Diagnoses / Procedures Referred By Contac t Referred To Contact Physical Therapy Diagnoses S/P reverse total shoulder arthroplasty, right Procedures CONSULT TO PHYSICAL THERAPY Nehemiah Gilbert PA-C [address] [place] [address] Referral ID Status Reason Start Date Expiration Date V isits Requested Visits Authorized [id number] Pending Review 06/14/2021 09/12/2021 1 1 [facility] for referral (narrative)* Diagnostic Procedure Only (Routine) - Closed Specialty Diagnoses / Procedures Referred By Contac t Referred To Contact XR IMAGING Diagnoses S/P reverse total shoulder arthroplasty, right Procedures XR SHOULDER GENERAL 3V OR MORE AP/TRUE AP/OTHER RIGHT RADEX SHOULDER COMPLETE MINIMUM 2 VIEWS Nehemiah Gilbert PA-C [address] [place] [address] Xr Imaging Referral ID Status Reason Start Date Expiration Date V isits Requested Visits Authorized [id number] Closed Auto-Generate d Referral 11/07/2021 12/04/2022 1 1 [facility] for referral (narrative)* Diagnostic Procedure Only (Routine) - Closed Specialty Diagnoses / Procedures Referred By Contac t Referred To Contact XR IMAGING Diagnoses Chronic knee pain after total replacement of right knee joint Procedures XR KNEE POST OP 3V AP/LAT/MERCHANT RIGHT RADIOLOGIC EXAMINATION KNEE 3 VIEWS Kev Ferrell MD [address] [place] [address] Xr Imaging Referral ID Status Reason Start Date Expiration Date V isits Requested Visits Authorized [id number] Closed Auto-Generate d Referral 11/11/2021 12/10/2022 1 1 [facility] for referral (narrative)* Diagnostic Procedure Only (Routine) - Closed Specialty Diagnoses / Procedures Referred By Contac t Referred To Contact XR IMAGING Diagnoses Left shoulder pain, unspecified chronicity Procedures XR SHOULDER ORTHO 4V AP/TRUE AP/LAT/OUTLET LEFT RADEX SHOULDER COMPLETE MINIMUM 2 VIEWS Nehemiah Gilbert PA-C [address] [place] [address] Xr Imaging Referral ID Status Reason Start Date Expiration Date V isits Requested Visits Authorized [id number] Closed Auto-Generat ed Referral Patient Cleared - Admin/Chairm an/Director advise to proceed 06/22/2022 07/06/2023 1 1 [facility] for referral (narrative)* Diagnostic Procedure Only (Routine) - Closed Specialty Diagnoses / Procedures Referred By Contac t Referred To Contact CT IMAGING Diagnoses History of lumbar fusion Chronic midline low back pain, unspecified whether sciatica present Radiculopathy of lumbar region Procedures CT LUMBAR SPINE WO IVCON CT SCAN LUMBAR SPINE Himanshu Barba MD [address] [place] [address] Ct Imaging Referral ID Status Reason Start Date Expiration Date V isits Requested Visits Authorized [id number] Closed Auto-Generate d Referral 06/17/2020 07/17/2021 1 1 [facility] for referral (narrative)* Diagnostic Procedure Only (Routine) - Pending Review Specialty Diagnoses / Procedures Referred By Contac t Referred To Contact US IMAGING Diagnoses Stricture of male urethra, unspecified stricture type Urinary urgency Procedures US KIDNEY/BLADDER US RETROPERITONEAL REAL TIME W/IMAGE COMPLETE Louie Salomon MD [address] [id number] Us Imaging [facility] Referral ID Status Reason Start Date Expiration Date Visits Requested Visits Authorized [id number] Pending Review Auto-Generat ed Referral 06/20/2023 07/19/2024 1 1 [facility] for referral (narrative)* Diagnostic Procedure Only (Routine) - Closed Specialty Diagnoses / Procedures Referred By Contac t Referred To Contact XR IMAGING Diagnoses Left shoulder pain, unspecified chronicity Procedures XR SHOULDER ORTHO 4V AP/TRUE AP/LAT/OUTLET LEFT RADEX SHOULDER COMPLETE MINIMUM 2 VIEWS Nehemiah Gilbert PA-C [address] [place] [address] Xr Imaging [facility] Referral ID Status Reason Start Date Expiration Date V isits Requested Visits Authorized [id number] Closed Auto-Generat ed Referral Patient Cleared - Admin/Chairm an/Director advise to proceed or did not respond 06/22/2022 07/06/2023 1 1 [facility] for referral (narrative)* Diagnostic Procedure Only (Routine) - Closed Specialty Diagnoses / Procedures Referred By Contac t Referred To Contact XR IMAGING Diagnoses S/P reverse total shoulder arthroplasty, right Procedures XR SHOULDER GENERAL 3V OR MORE AP/TRUE AP/OTHER RIGHT RADEX SHOULDER COMPLETE MINIMUM 2 VIEWS Nehemiah Gilbert PA-C [address] [place] [address] [place] [address] Referral ID Status Reason Start Date Expiration Date V isits Requested Visits Authorized [id number] Closed Auto-Generate d Referral 11/07/2021 12/04/2022 1 1 [facility] for referral (narrative)* Diagnostic Procedure Only (Routine) - Closed Specialty Diagnoses / [facility] Diagnoses Chronic knee pain after total replacement of right knee joint Procedures XR KNEE POST OP 3V AP/LAT/MERCHANT RIGHT RADIOLOGIC EXAMINATION KNEE 3 VIEWS Kev Ferrell MD [address] [place] [address] [place] [address] Referral ID Status Reason Start Date Expiration Date V isits Requested Visits Authorized [id number] Closed Auto-Generate d Referral 11/11/2021 12/10/2022 1 1 [facility] for referral (narrative)* Diagnostic Procedure Only (Routine) - Closed Specialty Diagnoses / [facility] X[facility] Diagnoses Nontraumatic complete tear of right rotator cuff Procedures XR SHOULDER GENERAL 3V OR MORE AP/TRUE AP/OTHER RIGHT RADEX SHOULDER COMPLETE MINIMUM 2 VIEWS Nehemiah Gilbert PA-C [address] [place] [address] [place] [address] Referral ID Status Reason Start Date Expiration Date V isits Requested Visits Authorized [id number] Closed Auto-Generate d Referral 05/16/2021 06/15/2022 1 1 [facility] for referral (narrative)* Diagnostic Procedure Only (Routine) - Closed Specialty Diagnoses / [facility] XR [facility]AGING Diagnoses Right shoulder pain, unspecified chronicity Procedures XR SHOULDER ORTHO 4V AP/TRUE AP/LAT/OUTLET RT X-RAY SHOULDER COMPLET MIN 2 VIEWS Nehemiah Gilbert PA-C [address] [place] [address] [place] [address] Referral ID Status Reason Start Date Expiration Date V isits Requested Visits Authorized [id number] Closed Auto-Generate d Referral 12/13/2020 01/12/2022 1 1 [facility] for referral (narrative)* Diagnostic Procedure Only (Routine) - Closed Specialty Diagnoses / Procedures [facility] MR IMAGING Diagnoses Nontraumatic tear of right rotator cuff, unspecified tear extent Acute pain of right shoulder Procedures MRI SHOULDER WO IVCON RT MRI, JOINT UPPER EXTREM Stanton Kirkland PA-C [address] [place] [address] [place] [address] Referral ID Status Reason Start Date Expiration Date V isits Requested Visits Authorized [id number] Closed Auto-Generate d Referral 07/30/2020 08/29/2021 1 1 [facility] for referral (narrative)* Outpatient Procedure (Routine) - New Request Specialty Diagnoses / Procedures [facility] Diagnoses Overactive bladder Incomplete bladder emptying Procedures PERIPHERAL NERVE EVALUATION (PNE) PRQ IMPLTJ NEUROSTIM ELTRD SACRAL NRVE W/IMAGING Fady Dye MD [address] [place] [address] [facility] [address] [place] [address] Referral ID Status Reason Start Date Expiration Date Visits Requested Visits Authorized [id number] New Request Auto-Generat ed Referral 02/18/2024 02/17/2025 1 1 * Consult, Test, Treat (Routine) - Authorized Specialty Diagnoses / Procedures Referred By Contac t Referred To Contact General Surgery Diagnoses Inguinal hernia without obstruction or gangrene, recurrence not specified, unspecified laterality Procedures CONSULT TO GENERAL SURGERY OFFICE/OUTPATIENT [facility] 60 MINUTES Fady Dye MD [address] [id number] Referral ID Status Reason Start Date Expiration Date Visits Requested Visits Authorized [id number] Authorized PCP Requested Referral 02/18/2024 02/17/2025 1 1 [facility] for visit Narrative* Diagnostic Procedure Only (Routine) - Closed Specialty Diagnoses / Procedures Referred By Contac t Referred To Contact CT IMAGING Diagnoses History of lumbar fusion Chronic midline low back pain, unspecified whether sciatica present Radiculopathy of lumbar region Procedures CT LUMBAR SPINE WO IVCON CT SCAN LUMBAR SPINE Himanshu Barba MD [address] [facility] [place] [address] Ct Imaging Referral ID Status Reason Start Date Expiration Date V isits Requested Visits Authorized [id number] Closed Auto-Generate d Referral 06/17/2020 07/17/2021 1 1 [facility] for visit Narrative* Diagnostic Procedure Only (Routine) - Closed Specialty Diagnoses / Procedures [facility] XR [facility]ING Diagnoses Chronic knee pain after total replacement of right knee joint Procedures XR KNEE POST OP 3V AP/LAT/MERCHANT RIGHT RADIOLOGIC EXAMINATION KNEE 3 VIEWS Kev Ferrell MD [address] [place] [address] [place] [address] Referral ID Status Reason Start Date Expiration Date V isits Requested Visits Authorized [id number] Closed Auto-Generate d Referral 11/11/2021 12/10/2022 1 1 [facility] for visit Narrative* Diagnostic Procedure Only (Routine) - Closed Specialty Diagnoses / Procedures Referred By Contac t Referred To Contact XR IMAGING Diagnoses Nontraumatic complete tear of right rotator cuff Procedures XR SHOULDER GENERAL 3V OR MORE AP/TRUE AP/OTHER RIGHT RADEX SHOULDER COMPLETE MINIMUM 2 VIEWS Nehemiah Gilbert PA-C [address] [place] [address] [place] [address] Referral ID Status Reason Start Date Expiration Date V isits Requested Visits Authorized [id number] Closed Auto-Generate d Referral 05/16/2021 06/15/2022 1 1 [facility] for visit Narrative* Diagnostic Procedure Only (Routine) - Closed Specialty Diagnoses / Procedures Referred By Contac t Referred To Contact MR IMAGING Diagnoses Nontraumatic tear of right rotator cuff, unspecified tear extent Acute pain of right shoulder Procedures MRI SHOULDER WO IVCON RT MRI, JOINT UPPER EXTREM Stanton Kirkland PA-C [address] [place] [address] [place] [address] Referral ID Status Reason Start Date Expiration Date V isits Requested Visits Authorized [id number] Closed Auto-Generate d Referral 07/30/2020 08/29/2021 1 1 [facility] for visit Narrative* Diagnostic Procedure Only (Routine) - Closed Specialty Diagnoses / Procedures Referred By Contac t Referred To Contact XR IMAGING Diagnoses Right shoulder pain, unspecified chronicity Procedures XR SHOULDER ORTHO 4V AP/TRUE AP/LAT/OUTLET RIGHT RADEX SHOULDER COMPLETE MINIMUM 2 VIEWS Kev Ferrell MD [address] [place] [address] Phone: tel: fax: XR IMAGING [facility] Referral ID Status Reason Start Date Expiration Date V isits Requested Visits Authorized [id number] Closed Auto-Generate d Referral 08/26/2024 09/24/2025 1 1 [facility] for visit Narrative* Diagnostic Procedure Only (Routine) - Closed Specialty Diagnoses / Procedures Referred By Contac t Referred To Contact XR IMAGING Diagnoses Closed nondisplaced fracture of acromial end of right clavicle with routine healing, subsequent encounter Procedures XR CLAVICLE 2V RIGHT RADEX CLAVICLE COMPLETE Nehemiah Gilbert PA-C [address] [place] [address] Phone: tel: fax: [place] [address] Referral ID Status Reason Start Date Expiration Date V isits Requested Visits Authorized [id number] Closed Auto-Generate d Referral 10/21/2024 11/20/2025 1 1 [facility] Summary Purpose Family History No Family [...] FoundDocuments on File Type Date Recorded Patient [employer] Expl anation Advance Directive(s) 05/02/2021 6:09 AM [...] Documents on File Type Date Recorded Patient [employer] Expl anation Advance Directive(s) 05/02/2021 6:09 AM [...] Documents on File Type Date Recorded Patient [employer] W[employer] Expl anation Advance Directive(s) 05/23/2017 1:09 PM Documents on File Type Date Recorded Patient [employer] Expl anation Advance Directive(s) 05/23/2017 1:09 PM [...] CT SCAN OF ARM Kev Ferrell MD [address] [place] [address] Ct Imaging Referral ID Status Reason Start Date Expiration Date V isits Requested Visits Authorized [id number] Closed Auto-Generate d Referral 12/21/2020 01/20/2022 1 1 Additional Source Comments (unrecognized sect ion and content) No Status Records FoundNo Status Records FoundNo Status Records FoundNo Status Records FoundNo Status Records FoundNo Status Records FoundNo Status Records FoundNo Status Records FoundNo Status Records FoundNo Status Records Found INFORMATION SOURCE (unrecogn ized section and content) DATE CREATED AUTHOR 10/17/2019 [facility] DATE CREATED AUTHOR AUTHOR'S ORGANIZ ATION 05/05/2021 [facility] DATE CREATED AUTHOR AUTHOR'S ORGANIZ ATION 06/11/2022 [facility] DATE CREATED AUTHOR AUTHOR'S ORGANIZ ATION 01/28/2024 [facility] DATE CREATED AUTHOR AUTHOR'S ORGANIZ ATION 02/23/2024 [facility] DATE CREATED AUTHOR AUTHOR'S ORGANIZ ATION 02/25/2024 [facility] DATE CREATED AUTHOR AUTHOR'S ORGANIZ ATION 07/01/2024 Shubham Huerta [facility] DATE CREATED AUTHOR AUTHOR'S ORGANIZ ATION 10/26/[address] [facility] DATE CREATED AUTHOR AUTHOR'S ORGANIZ ATION 10/29/[address] [facility] DATE CREATED AUTHOR AUTHOR'S ORGANIZ ATION 10/29/2024 [facility] Source Comments (unrecognize d section and content) In the event this informatio n is protected by the Federal Confidentiality of Alcohol and Drug Abuse Patient Records regulations: The Federal rules restrict any use of the information to criminally investigate or prosecute any alcohol or drug abuse patient.[facility] the event this information is protected by the Federal Confidentiality of Alcohol and Drug Abuse Patient Records regulations: The Federal rules restrict any use of the information to criminally investigate or prosecute any alcohol or drug abuse patient.[facility]In the event this information is protected by the Federal Confidentiality of Alcohol and Drug Abuse Patient Records regulations: The Federal rules restrict any use of the information to criminally investigate or prosecute any alcohol or drug abuse patient.[facility]In the event this information is protected by the Federal Confidentiality of Alcohol and Drug Abuse Patient Records regulations: The Federal rules restrict any use of the information to criminally investigate or prosecute any alcohol or drug abuse patient.[facility] HospitalIn the event this information is protected by the Federal Confidentiality of Alcohol and Drug Abuse Patient Records regulations: The Federal rules restrict any use of the information to criminally investigate or prosecute any alcohol or drug abuse patient.[facility] HospitalIn the event this information is protected by the Federal Confidentiality of Alcohol and Drug Abuse Patient Records regulations: The Federal rules restrict any use of the information to criminally investigate or prosecute any alcohol or drug abuse patient.[facility] HospitalIn the event this information is protected by the Federal Confidentiality of Alcohol and Drug Abuse Patient Records regulations: The Federal rules restrict any use of the information to criminally investigate or prosecute any alcohol or drug abuse patient.[facility] HospitalIn the event this information is protected by the Federal Confidentiality of Alcohol and Drug Abuse Patient Records regulations: The Federal rules restrict any use of the information to criminally investigate or prosecute any alcohol or drug abuse patient.[facility] HospitalIn the event this information is protected by the Federal Confidentiality of Alcohol and Drug Abuse Patient Records regulations: The Federal rules restrict any use of the information to criminally investigate or prosecute any alcohol or drug abuse patient.[facility] HospitalIn the event this information is protected by the Federal Confidentiality of Alcohol and Drug Abuse Patient Records regulations: The Federal rules restrict any use of the information to criminally investigate or prosecute any alcohol or drug abuse patient.[facility] HospitalIn the event this information is protected by the Federal Confidentiality of Alcohol and Drug Abuse Patient Records regulations: The Federal rules restrict any use of the information to criminally investigate or prosecute any alcohol or drug abuse patient.[facility] HospitalIn the event this information is protected by the Federal Confidentiality of Alcohol and Drug Abuse Patient Records regulations: The Federal rules restrict any use of the information to criminally investigate or prosecute any alcohol or drug abuse patient.[facility] HospitalIn the event this information is protected by the Federal Confidentiality of Alcohol and Drug Abuse Patient Records regulations: The Federal rules restrict any use of the information to criminally investigate or prosecute any alcohol or drug abuse patient.[facility] HospitalIn the event this information is protected by the Federal Confidentiality of Alcohol and Drug Abuse Patient Records regulations: The Federal rules restrict any use of the information to criminally investigate or prosecute any alcohol or drug abuse patient.[facility] HospitalIn the event this information is protected by the Federal Confidentiality of Alcohol and Drug Abuse Patient Records regulations: The Federal rules restrict any use of the information to criminally investigate or prosecute any alcohol or drug abuse patient.[facility] HospitalIn the event this information is protected by the Federal Confidentiality of Alcohol and Drug Abuse Patient Records regulations: The Federal rules restrict any use of the information to criminally investigate or prosecute any alcohol or drug abuse patient.[facility] HospitalIn the event this information is protected by the Federal Confidentiality of Alcohol and Drug Abuse Patient Records regulations: The Federal rules restrict any use of the information to criminally investigate or prosecute any alcohol or drug abuse patient.[facility] HospitalIn the event this information is protected by the Federal Confidentiality of Alcohol and Drug Abuse Patient Records regulations: The Federal rules restrict any use of the information to criminally investigate or prosecute any alcohol or drug abuse patient.[facility] HospitalIn the event this information is protected by the Federal Confidentiality of Alcohol and Drug Abuse Patient Records regulations: The Federal rules restrict any use of the information to criminally investigate or prosecute any alcohol or drug abuse patient.[facility] HospitalIn the event this information is protected by the Federal Confidentiality of Alcohol and Drug Abuse Patient Records regulations: The Federal rules restrict any use of the information to criminally investigate or prosecute any alcohol or drug abuse patient.[facility] HospitalIn the event this information is protected by the Federal Confidentiality of Alcohol and Drug Abuse Patient Records regulations: The Federal rules restrict any use of the information to criminally investigate or prosecute any alcohol or drug abuse patient.[facility] HospitalIn the event this information is protected by the Federal Confidentiality of Alcohol and Drug Abuse Patient Records regulations: The Federal rules restrict any use of the information to criminally investigate or prosecute any alcohol or drug abuse patient.[facility] HospitalIn the event this information is protected by the Federal Confidentiality of Alcohol and Drug Abuse Patient Records regulations: The Federal rules restrict any use of the information to criminally investigate or prosecute any alcohol or drug abuse patient.[facility] HospitalIn the event this information is protected by the Federal Confidentiality of Alcohol and Drug Abuse Patient Records regulations: The Federal rules restrict any use of the information to criminally investigate or prosecute any alcohol or drug abuse patient.[facility] HospitalIn the event this information is protected by the Federal Confidentiality of Alcohol and Drug Abuse Patient Records regulations: The Federal rules restrict any use of the information to criminally investigate or prosecute any alcohol or drug abuse patient.[facility] HospitalIn the event this information is protected by the Federal Confidentiality of Alcohol and Drug Abuse Patient Records regulations: The Federal rules restrict any use of the information to criminally investigate or prosecute any alcohol or drug abuse patient.[facility] HospitalIn the event this information is protected by the Federal Confidentiality of Alcohol and Drug Abuse Patient Records regulations: The Federal rules restrict any use of the information to criminally investigate or prosecute any alcohol or drug abuse patient.[facility] HospitalIn the event this information is protected by the Federal Confidentiality of Alcohol and Drug Abuse Patient Records regulations: The Federal rules restrict any use of the information to criminally investigate or prosecute any alcohol or drug abuse patient.[facility] HospitalIn the event this information is protected by the Federal Confidentiality of Alcohol and Drug Abuse Patient Records regulations: The Federal rules restrict any use of the information to criminally investigate or prosecute any alcohol or drug abuse patient.[facility] HospitalIn the event this information is protected by the Federal Confidentiality of Alcohol and Drug Abuse Patient Records regulations: The Federal rules restrict any use of the information to criminally investigate or prosecute any alcohol or drug abuse patient.[facility] HospitalIn the event this information is protected by the Federal Confidentiality of Alcohol and Drug Abuse Patient Records regulations: The Federal rules restrict any use of the information to criminally investigate or prosecute any alcohol or drug abuse patient.[facility] HospitalIn the event this information is protected by the Federal Confidentiality of Alcohol and Drug Abuse Patient Records regulations: The Federal rules restrict any use of the information to criminally investigate or prosecute any alcohol or drug abuse patient.[facility] HospitalIn the event this information is protected by the Federal Confidentiality of Alcohol and Drug Abuse Patient Records regulations: The Federal rules restrict any use of the information to criminally investigate or prosecute any alcohol or drug abuse patient.[facility] HospitalIn the event this information is protected by the Federal Confidentiality of Alcohol and Drug Abuse Patient Records regulations: The Federal rules restrict any use of the information to criminally investigate or prosecute any alcohol or drug abuse patient.[facility] HospitalIn the event this information is protected by the Federal Confidentiality of Alcohol and Drug Abuse Patient Records regulations: The Federal rules restrict any use of the information to criminally investigate or prosecute any alcohol or drug abuse patient.[facility] HospitalIn the event this information is protected by the Federal Confidentiality of Alcohol and Drug Abuse Patient Records regulations: The Federal rules restrict any use of the information to criminally investigate or prosecute any alcohol or drug abuse patient.[facility] HospitalIn the event this information is protected by the Federal Confidentiality of Alcohol and Drug Abuse Patient Records regulations: The Federal rules restrict any use of the information to criminally investigate or prosecute any alcohol or drug abuse patient.[facility] HospitalIn the event this information is protected by the Federal Confidentiality of Alcohol and Drug Abuse Patient Records regulations: The Federal rules restrict any use of the information to criminally investigate or prosecute any alcohol or drug abuse patient.[facility] HospitalIn the event this information is protected by the Federal Confidentiality of Alcohol and Drug Abuse Patient Records regulations: The Federal rules restrict any use of the information to criminally investigate or prosecute any alcohol or drug abuse patient.[facility] HospitalIn the event this information is protected by the Federal Confidentiality of Alcohol and Drug Abuse Patient Records regulations: The Federal rules restrict any use of the information to criminally investigate or prosecute any alcohol or drug abuse patient.[facility] HospitalIn the event this information is protected by the Federal Confidentiality of Alcohol and Drug Abuse Patient Records regulations: The Federal rules restrict any use of the information to criminally investigate or prosecute any alcohol or drug abuse patient.[facility] HospitalIn the event this information is protected by the Federal Confidentiality of Alcohol and Drug Abuse Patient Records regulations: The Federal rules restrict any use of the information to criminally investigate or prosecute any alcohol or drug abuse patient.[facility] HospitalIn the event this information is protected by the Federal Confidentiality of Alcohol and Drug Abuse Patient Records regulations: The Federal rules restrict any use of the information to criminally investigate or prosecute any alcohol or drug abuse patient.[facility] HospitalIn the event this information is protected by the Federal Confidentiality of Alcohol and Drug Abuse Patient Records regulations: The Federal rules restrict any use of the information to criminally investigate or prosecute any alcohol or drug abuse patient.[facility] HospitalIn the event this information is protected by the Federal Confidentiality of Alcohol and Drug Abuse Patient Records regulations: The Federal rules restrict any use of the information to criminally investigate or prosecute any alcohol or drug abuse patient.[facility] HospitalIn the event this information is protected by the Federal Confidentiality of Alcohol and Drug Abuse Patient Records regulations: The Federal rules restrict any use of the information to criminally investigate or prosecute any alcohol or drug abuse patient.[facility] HospitalIn the event this information is protected by the Federal Confidentiality of Alcohol and Drug Abuse Patient Records regulations: The Federal rules restrict any use of the information to criminally investigate or prosecute any alcohol or drug abuse patient.[facility] HospitalIn the event this information is protected by the Federal Confidentiality of Alcohol and Drug Abuse Patient Records regulations: The Federal rules restrict any use of the information to criminally investigate or prosecute any alcohol or drug abuse patient.[facility] HospitalIn the event this information is protected by the Federal Confidentiality of Alcohol and Drug Abuse Patient Records regulations: The Federal rules restrict any use of the information to criminally investigate or prosecute any alcohol or drug abuse patient.[facility] HospitalIn the event this information is protected by the Federal Confidentiality of Alcohol and Drug Abuse Patient Records regulations: The Federal rules restrict any use of the information to criminally investigate or prosecute any alcohol or drug abuse patient.[facility] HospitalIn the event this information is protected by the Federal Confidentiality of Alcohol and Drug Abuse Patient Records regulations: The Federal rules restrict any use of the information to criminally investigate or prosecute any alcohol or drug abuse patient.[facility] HospitalIn the event this information is protected by the Federal Confidentiality of Alcohol and Drug Abuse Patient Records regulations: The Federal rules restrict any use of the information to criminally investigate or prosecute any alcohol or drug abuse patient.[facility] HospitalIn the event this information is protected by the Federal Confidentiality of Alcohol and Drug Abuse Patient Records regulations: The Federal rules restrict any use of the information to criminally investigate or prosecute any alcohol or drug abuse patient.[facility] HospitalIn the event this information is protected by the Federal Confidentiality of Alcohol and Drug Abuse Patient Records regulations: The Federal rules restrict any use of the information to criminally investigate or prosecute any alcohol or drug abuse patient.[facility] HospitalIn the event this information is protected by the Federal Confidentiality of Alcohol and Drug Abuse Patient Records regulations: The Federal rules restrict any use of the information to criminally investigate or prosecute any alcohol or drug abuse patient.[facility] HospitalIn the event this information is protected by the Federal Confidentiality of Alcohol and Drug Abuse Patient Records regulations: The Federal rules restrict any use of the information to criminally investigate or prosecute any alcohol or drug abuse patient.[facility] HospitalIn the event this information is protected by the Federal Confidentiality of Alcohol and Drug Abuse Patient Records regulations: The Federal rules restrict any use of the information to criminally investigate or prosecute any alcohol or drug abuse patient.[facility] HospitalIn the event this information is protected by the Federal Confidentiality of Alcohol and Drug Abuse Patient Records regulations: The Federal rules restrict any use of the information to criminally investigate or prosecute any alcohol or drug abuse patient.[facility] HospitalIn the event this information is protected by the Federal Confidentiality of Alcohol and Drug Abuse Patient Records regulations: The Federal rules restrict any use of the information to criminally investigate or prosecute any alcohol or drug abuse patient.[facility] HospitalIn the event this information is protected by the Federal Confidentiality of Alcohol and Drug Abuse Patient Records regulations: The Federal rules restrict any use of the information to criminally investigate or prosecute any alcohol or drug abuse patient.[facility] HospitalIn the event this information is protected by the Federal Confidentiality of Alcohol and Drug Abuse Patient Records regulations: The Federal rules restrict any use of the information to criminally investigate or prosecute any alcohol or drug abuse patient.[facility] HospitalIn the event this information is protected by the Federal Confidentiality of Alcohol and Drug Abuse Patient Records regulations: The Federal rules restrict any use of the information to criminally investigate or prosecute any alcohol or drug abuse patient.[facility] HospitalIn the event this information is protected by the Federal Confidentiality of Alcohol and Drug Abuse Patient Records regulations: The Federal rules restrict any use of the information to criminally investigate or prosecute any alcohol or drug abuse patient.[facility] HospitalIn the event this information is protected by the Federal Confidentiality of Alcohol and Drug Abuse Patient Records regulations: The Federal rules restrict any use of the information to criminally investigate or prosecute any alcohol or drug abuse patient.[facility] HospitalIn the event this information is protected by the Federal Confidentiality of Alcohol and Drug Abuse Patient Records regulations: The Federal rules restrict any use of the information to criminally investigate or prosecute any alcohol or drug abuse patient.[facility] Reason for Visit (unrecogniz ed section and content) Reason Comments Follow Up Specialty Diagnoses / Procedures Referred By Gene yu Referred To Contact Urology / UROLOGY Diagnoses Unspecified urethral stricture, male, meatal UDS Procedures COMPLEX UROFLOMETRY URODYNAMICS MAIN Louie Salomon MD [address] [place] [address] [facility] [address] [place] [address] Referral ID Status Reason Start Date Expiration Date Visits Re quested Visits Authorized [id number] Closed 08/31/2023 11/29/2023 2 1 Reason Comments [...] Cystoscopy Procedures CYSTOURETHROSCOPY CYSTOSCOPY Nithya Rhodes PA-C [address] [place] [address] [place] [address] [place] [address] Referral ID Status Reason Start Date Expiration Date Visits Re quested Visits Authorized [id number] Closed 05/03/2022 02/11/2023 1 1 Reason Comments New Pain Reason Comments Radiology CT Specialty Diagnoses / Procedures Referred By Gene yu Referred To Contact CT IMAGING Diagnoses Nontraumatic complete tear of right rotator cuff Rotator cuff arthropathy of right shoulder Arthritis of shoulder Procedures CT SHOULDER WO IVCON RT CT SCAN OF ARM Kev Ferrell MD [address] [place] [address] Ct Imaging Referral ID Status Reason Start Date Expiration Date V isits Requested Visits Authorized [id number] Closed Auto-Generate d Referral 12/21/2020 01/20/2022 1 1 Reason Comments Refill Request Reason Comments Education Of Patient/family Cystoscopy-1 Specialty Diagnoses / Procedures Referred By Gene yu Referred To Contact Urology / UROLOGY Diagnoses Stricture of urethral meatus in male, unspecified stricture type CYSTOSCOPY Procedures CYSTOURETHROSCOPY CYSTOSCOPY Radha Ramos MD [address] [place] [address] [place] [address] [place] [address] Referral ID Status Reason Start Date Expiration Date Visits Re quested Visits Authorized [id number] Closed 05/22/2023 02/12/2024 1 1 Reason Comments [...] 2 VIEWS Nehemiah Gilbert PA-C [address] [place] [address] [place] [address] Referral ID Status Reason Start Date Expiration Date V isits Requested Visits Authorized [id number] Closed Auto-Generat ed Referral Patient Cleared - Admin/Chairm an/Director advise to proceed or did not respond 06/22/2022 07/06/2023 1 1 Specialty Diagnoses / Procedures Referred By Gene yu Referred To Contact XR IMAGING Diagnoses S/P reverse total shoulder arthroplasty, right Procedures XR SHOULDER GENERAL 3V OR MORE AP/TRUE AP/OTHER RIGHT RADEX SHOULDER COMPLETE MINIMUM 2 VIEWS Nehemiah Gilbert PA-C [address] [place] [address] [place] [address] Referral ID Status Reason Start Date Expiration Date V isits Requested Visits Authorized [id number] Closed Auto-Generate d Referral 11/07/2021 12/04/2022 1 1 Specialty Diagnoses / Procedures Referred By Contac t Referred To Contact XR IMAGING Diagnoses Right shoulder pain, unspecified chronicity Procedures XR SHOULDER ORTHO 4V AP/TRUE AP/LAT/OUTLET RT X-RAY SHOULDER COMPLET MIN 2 VIEWS Nehemiah Gilbert PA-C [address] [facility] [address] [place] [address] Referral ID Status Reason Start Date Expiration Date V isits Requested Visits Authorized [id number] Closed Auto-Generate d Referral 12/13/2020 01/12/2022 1 1 Reason Comments Results Reason Comments Established Patient Follow up OAB Reason Comments Excessive Sweating Pt states he feels hot inside and sweats a lot mostly on his truck x 2 months Back Pain Constipation Reason Comments Medicare Annual Wellness Visit [facility] Reason Comments Follow Up Reason Comments Hand Salter - Other Reason Comments Fax Received - [facility] er Reason Comments Hypertension Results Labs and ct chest Sinusitis Reason Comments Follow Up Groin pain Reason Comments Manometry Reason Comments Pain Specialty Diagnoses / Procedures Referred By Gene t Referred To Contact XR IMAGING Diagnoses Closed nondisplaced fracture of acromial end of right clavicle, initial encounter Procedures XR CLAVICLE 2V RIGHT RADEX CLAVICLE COMPLETE Nehemiah Gilbert PA-C [address] [facility] [address] Phone: tel: fax: [place] [address] Referral ID Status Reason Start Date Expiration Date V isits Requested Visits Authorized [id number] Closed Auto-Generate d Referral 2024 10/03/2025 1 1 Reason Comments Hypertension Reason Comments Chest Pain Results cxr Reason Comments Follow Up Rt inguinal hernia Reason Comments Follow Up Care Teams (unrecognized sec tion and content) Physical Therapist Aide Relationship Specialty Start Date End Date Stanton Velasco II [address] [place] [address] PCP - General Internal Medicine 04/01/21 Hossein Tran [address] [place] [phone] Referring Ophthalmology 08/28/16 David Carrillo [address] [place] [address] Referring Urology 10/06/16 Physical Therapist Aide Relationship Specialty Start Date End Date Stanton Velasco II [address] [facility] [address] [place] [address] PCP - General Internal Medicine 04/01/21 Hossein Tran [address] [place] [address] Referring Ophthalmology 08/28/16 David Carrillo P [address] [place] [address] Referring Urology 10/06/16 Physical Therapist Aide Relationship Specialty Start Date End Date Stanton Velasco II [address] [facility] [address] [place] [address] PCP - General Internal Medicine 04/01/21 Hossein Tran [address] [place] [address] Referring Ophthalmology 08/28/16 David Carrillo P [address] [place] [address] Referring Urology 10/06/16 Physical Therapist Aide Relationship Specialty Start Date End Date Stanton Velasco II [address] [facility] [address] [place] [address] PCP - General Internal Medicine 04/01/21 Hossein Tran [address] [place] [address] Referring Ophthalmology 08/28/16 David Carrillo P [address] [place] [address] Referring Urology 10/06/16 Team Status: Inactive Member Role Status Dates Stanton Velasco II MD Attending Provider Active Physical Therapist Aide Relationship Specialty Start Date End Date Stanton Velasco II [address] [place] [address] PCP - General Internal Medicine 04/01/21 Hossein Tran [address] [place] [address] Referring Ophthalmology 08/28/16 David Carrillo P [address] [place] [address] Referring Urology 10/06/16 Physical Therapist Aide Relationship Specialty Start Date End Date Stanton Velasco II [address] [facility] [address] [place] [address] PCP - General Internal Medicine 04/01/21 Hossein Tran [address] [place] [address] Referring Ophthalmology 08/28/16 David Carrillo P [address] [place] [address] Referring Urology 10/06/16 Physical Therapist Aide Relationship Specialty Start Date End Date Stanton Velasco II [address] [place] [address] PCP - General Internal Medicine 04/01/21 Hossein Tran [address] [place] [address] Referring Ophthalmology 08/28/16 David Carrillo P [address] [place] [address] Referring Urology 10/06/16 Physical Therapist Aide Relationship Specialty Start Date End Date Stanton Velasco II [address] [facility] [address] [place] [address] PCP - General Internal Medicine 04/01/21 Hossein Tran [address] [place] [address] Referring Ophthalmology 08/28/16 David Carrillo [address] [place] [address] Referring Urology 10/06/16 Physical Therapist Aide Relationship Specialty Start Date End Date Stanton Velasco II [address] [facility] [address] [place] [address] PCP - General Internal Medicine 04/01/21 Hossein Tran [address] [place] [address] Referring Ophthalmology 08/28/16 David Carrillo [address] [place] [address] Referring Urology 10/06/16 Physical Therapist Aide Relationship Specialty Start Date End Date Stanton Velasco II [address] [facility] [address] [place] [address] PCP - General Internal Medicine 04/01/21 Hossein Tran [address] [place] [address] Referring Ophthalmology 08/28/16 David Carrillo P [address] [place] [address] Referring Urology 10/06/16 Physical Therapist Aide Relationship Specialty Start Date End Date Watson Centeno: [id number] [address] [place] [address] PCP - General Family Medicine 08/28/16 03/31/21 Hossein Tran [address] [place] [address] Referring Ophthalmology 08/28/16 David Carrillo [address] [place] [address] Referring Urology 10/06/16 Physical Therapist Aide Relationship Specialty Start Date End Date Watson Centeno [address] [place] [address] PCP - General Family Medicine 08/28/16 03/31/21 Hossein Tran [address] [place] [address] Referring Ophthalmology 08/28/16 David Carrillo [address] [place] [address] Referring Urology 10/06/16 Physical Therapist Aide Relationship Specialty Start Date End Date Stanton Velasco II, MD [address] [place] [address] PCP - General Internal Medicine 04/01/21 Hossein Tran DO [address] [place] [address] Referring Ophthalmology 08/28/16 David Carrillo [address] [place] [address] Referring Urology 10/06/16 Physical Therapist Aide Relationship Specialty Start Date End Date Stanton Velasco II, MD [address] [facility] [address] [place] [address] PCP - General Internal Medicine 04/01/21 Hossein Tran, [address] [place] [address] Referring Ophthalmology 08/28/16 David Carrillo MD [address] [place] [address] Referring Urology 10/06/16 Physical Therapist Aide Relationship Specialty Start Date End Date Stanton Velasco II, MD [address] [facility] [address] [place] [address] PCP - General Internal Medicine 04/01/21 Hossein Tran, [address] [place] [address] Referring Ophthalmology 08/28/16 David Carrilol MD [address] [place] [phone] Referring Urology 10/06/16 Physical Therapist Aide Relationship Specialty Start Date End Date Stanton Velasco II, MD [address] [facility] [address] [place], [place] [address] PCP - General Internal Medicine 04/01/21 Hossein Tran, [address] [place] [address] Referring Ophthalmology 08/28/16 David Carrillo MD [address] [place] [address] Referring Urology 10/06/16 Physical Therapist Aide Relationship Specialty Start Date End Date Stanton Velasco II, MD [address] [place] [address] PCP - General Internal Medicine 04/01/21 Hossein Tran DO [address] [place] [address] Referring Ophthalmology 08/28/16 David Carrillo MD [address] [place] [address] Referring Urology 10/06/16 Physical Therapist Aide Relationship Specialty Start Date End Date Stanton Velasco II, MD [address] [facility] [address] [place] [address] PCP - General Internal Medicine 04/01/21 Hossein Tran DO [address] [place] [address] Referring Ophthalmology 08/28/16 David Carrillo MD [address] [place] [phone] Referring Urology 10/06/16 Physical Therapist Aide Relationship Specialty Start Date End Date Stanton Velasco II, MD [address] [place] [address] PCP - General Internal Medicine 04/01/21 Hossein Tran DO [address] [place] [address] Referring Ophthalmology 08/28/16 David Carrillo MD [address] [place] [address] Referring Urology 10/06/16 Physical Therapist Aide Relationship Specialty Start Date End Date Stanton Velasco II, MD [address] [facility] [address] [place] [address] PCP - General Internal Medicine 04/01/21 Hossein Tran DO [address] [place] [address] Referring Ophthalmology 08/28/16 David Carrillo MD [address] [place] [address] Referring Urology 10/06/16 Physical Therapist Aide Relationship Specialty Start Date End Date Stanton Velasco II, MD [address] [facility] [address] [place] [address] PCP - General Internal Medicine 04/01/21 Hossein Tran DO [address] [place] [address] Referring Ophthalmology 08/28/16 David Carrillo MD [address] [place] [address] Referring Urology 10/06/16 Physical Therapist Aide Relationship Specialty Start Date End Date Stanton Velasco II, MD [address] [facility] [address] [place] [address] PCP - General Internal Medicine 04/01/21 Hossein Tran DO [address] [place] [address] Referring Ophthalmology 08/28/16 David Carrillo MD [address] [place] [address] Referring Urology 10/06/16 Physical Therapist Aide Relationship Specialty Start Date End Date Stanton Velasco II, MD [address] [facility] [address] [place] [address] PCP - General Internal Medicine 04/01/21 Hossein Tran, [address] [place] [address] Referring Ophthalmology 08/28/16 David Carrillo MD [address] [place] [address] Referring Urology 10/06/16 Physical Therapist Aide Relationship Specialty Start Date End Date Stanton Velasco II, MD [address] [facility] [address] [place] [address] PCP - General Internal Medicine 04/01/21 Hossein Tran DO [address] [place] [address] Referring Ophthalmology 08/28/16 David Carrillo MD [address] [place] [address] Referring Urology 10/06/16 Physical Therapist Aide Relationship Specialty Start Date End Date Stanton Velasco II, MD [address] [place] [address] PCP - General Internal Medicine 04/01/21 Hossein Tran DO [address] [place] [address] Referring Ophthalmology 08/28/16 David Carrillo MD [address] [place] [address] Referring Urology 10/06/16 Physical Therapist Aide Relationship Specialty Start Date End Date Stanton Velasco II, MD [address] [facility] [address] [place] [address] PCP - General Internal Medicine 04/01/21 Hossein Tran, [address] [place] [address] Referring Ophthalmology 08/28/16 David Carrillo MD [address] [place] [address] Referring Urology 10/06/16 Physical Therapist Aide Relationship Specialty Start Date End Date Stanton Velasco II, MD [address] [place] [address] [place] [address] PCP - General Internal Medicine 04/01/21 Hossein Tran DO [address] [place] [address] Referring Ophthalmology 08/28/16 David Carrillo MD [address] [place] [address] Referring Urology 10/06/16 Physical Therapist Aide Relationship Specialty Start Date End Date Stanton Velasco II, MD [address] [facility] [address] [place] [address] PCP - General Internal Medicine 04/01/21 Hossein Tran DO [address] [place] [address] Referring Ophthalmology 08/28/16 David Carrillo MD [address] [place] [address] Referring Urology 10/06/16 Physical Therapist Aide Relationship Specialty Start Date End Date Stanton Velasco II, MD [address] [place] [address] [address] [place] [address] PCP - General Internal Medicine 04/01/21 Hossein Tran DO [address] [place] [address] Referring Ophthalmology 08/28/16 David Carrillo MD [address] [place] [address] Referring Urology 10/06/16 Physical Therapist Aide Relationship Specialty Start Date End Date Watson Centeno [address] [place] [address] PCP - General Family Medicine 08/28/16 03/31/21 Hossein Tran, [address] [place] [address] Referring Ophthalmology 08/28/16 David Carrillo MD [address] [place] [address] Referring Urology 10/06/16 Physical Therapist Aide Relationship Specialty Start Date End Date Stanton Velasco II, MD [address] [place] [address] PCP - General Internal Medicine 04/01/21 Hossein Tran, [address] [place] [address] Referring Ophthalmology 08/28/16 David Carrillo MD [address] [place] [address] Referring Urology 10/06/16 Physical Therapist Aide Relationship Specialty Start Date End Date Watson Centeno [address] [place] [address] PCP - General Family Medicine 08/28/16 03/31/21 Hosseni Tarn DO [address] [place] [address] Referring Ophthalmology 08/28/16 David Carrillo MD [address] [place] [address] Referring Urology 10/06/16 Physical Therapist Aide Relationship Specialty Start Date End Date Watson Centeno [address] [place] [address] PCP - General Family Medicine 08/28/16 03/31/21 Hossein Tran, DO [address] [place] [address] Referring Ophthalmology 08/28/16 David Carrillo MD [address] [place] [address] Referring Urology 10/06/16 Physical Therapist Aide Relationship Specialty Start Date End Date Stanton Velasco II, MD [address] [facility] [address] [place] [address] PCP - General Internal Medicine 04/01/21 Hossein Tran, [address] [address] Referring Ophthalmology 08/28/16 David Carrillo MD [address] [place] [address] Referring Urology 10/06/16 Physical Therapist Aide Relationship Specialty Start Date End Date Stanton Velasco II, MD [address] [place] [address] [place] [address] PCP - General Internal Medicine 04/01/21 Hossein Tran DO [address] [place] [address] Referring Ophthalmology 08/28/16 David Carrillo MD [address] [place] [address] Referring Urology 10/06/16 Physical Therapist Aide Relationship Specialty Start Date End Date Stanton Velasco MD [address] [place] [address] PCP - Devoted 02/12/21 Stanton Velasco MD [address] [place] [address] PCP - General Internal Medicine 08/18/22 Physical Therapist Aide Relationship Specialty Start Date End Date Stanton Velasco II, MD [address] [place] [place] [address] PCP - General Internal Medicine 04/01/21 Hossein Tran DO [address] [place] [address] Referring Ophthalmology 08/28/16 David Carrillo MD [address] [place] [address] Referring Urology 10/06/16 Physical Therapist Aide Relationship Specialty Start Date End Date Stanton Velasco MD [address] [place] [address] PCP - Devoted 02/12/21 Stanton Velasco MD [address] [place] [address] PCP - General Internal Medicine 08/18/22 Physical Therapist Aide Relationship Specialty Start Date End Date Stanton Velasco MD [address] [place] [address] PCP - Devoted 02/12/21 Stanton Velasco MD [address] [place] [address] PCP - General Internal Medicine 08/18/22 Physical Therapist Aide Relationship Specialty Start Date End Date Stanton Velasco MD [address] [place] [address] PCP - General Internal Medicine 08/18/22 Physical Therapist Aide Relationship Specialty Start Date End Date Stanton Velasco MD [address] [facility] [address] [place] [address] PCP - General Internal Medicine 08/18/22 Physical Therapist Aide Relationship Specialty Start Date End Date Stanton Velasco II, MD [address] [facility] [address] [place] [address] PCP - General Internal Medicine 04/01/21 Hossein Tran DO [address] [place] [address] Referring Ophthalmology 08/28/16 David Carrillo MD [address] [place] [address] Referring Urology 10/06/16 Physical Therapist Aide Relationship Specialty Start Date End Date Stanton Velasco II, MD [address] [place] [address] PCP - General Internal Medicine 04/01/21 Hossein Tran DO [address] [place] [address] Referring Ophthalmology 08/28/16 David Carrillo MD [address] [place] [address] Referring Urology 10/06/16 Physical Therapist Aide Relationship Specialty Start Date End Date Stanton Velasco MD [address] [place] [address] PCP - General Internal Medicine 08/18/22 Physical Therapist Aide Relationship Specialty Start Date End Date Stanton Velasco MD [address] [place] [address] PCP - General Internal Medicine 08/18/22 Emelyn Hall, RN [facility] 03/21/24 Physical Therapist Aide Relationship Specialty Start Date End Date Stanton Velasco MD [address] [place] [address] PCP - General Internal Medicine 08/18/22 Emelyn Hall, RN Clinical [facility] Family Medicine 03/21/24 Physical Therapist Aide Relationship Specialty Start Date End Date Stanton Velasco II, MD [address] [place] [address] PCP - General Internal Medicine 04/01/21 Hossein Tran DO [address] [place] [address] Referring Ophthalmology 08/28/16 David Carrillo MD [address] [place] [address] Referring Urology 10/06/16 Physical Therapist Aide Relationship Specialty Start Date End Date Stanton Velasco MD [address] [place] [address] PCP - General Internal Medicine 08/18/22 Emelyn Hall, RN Clinical [facility] Family [facility] 03/21/24 Physical Therapist Aide Relationship Specialty Start Date End Date Stanton Velasco MD [address] [place] [address] PCP - General Internal Medicine 08/18/22 Emelyn Hall, RN Clinical [facility] Family [facility] 03/21/24 Physical Therapist Aide Relationship Specialty Start Date End Date Stanton Velasco MD [address] [place] [address] PCP - General Internal Medicine 08/18/22 Stanton Velasco MD [address] [place] [address] PCP - Medical [place] 02/13/2402/11 Alvina Sanchez LPN 05/06/24 Physical Therapist Aide Relationship Specialty Start Date End Date Stanton Velasco MD [address] [place] [address] PCP - General Internal Medicine 08/18/22 Stanton Velasco MD [address] [place] [address] PCP - Medical [facility] 02/13/2402/11 Alvina Sanchez LPN [address] [place] [address] 05/06/24 Physical Therapist Aide Relationship Specialty Start Date End Date Stanton Velasco II, MD [address] [place] [address] PCP - General Internal Medicine 04/01/21 Hossein Tran DO [address] [place] [address] Referring Ophthalmology 08/28/16 David Carrillo MD [address] [place] [address] Referring Urology 10/06/16 Physical Therapist Aide Relationship Specialty Start Date End Date Stanton Velasco II, MD [address] [facility] [address] [place] [address] PCP - General Internal Medicine 04/01/21 Hossein Tran DO [address] [place] [address] Referring Ophthalmology 08/28/16 David Carrillo MD [address] [place] [address] Referring Urology 10/06/16 Physical Therapist Aide Relationship Specialty Start Date End Date Stanton Velasco II, MD [address] [place] [address] [place] [address] PCP - General Internal Medicine 04/01/21 Hossein Tran DO [address] [place] [address] Referring Ophthalmology 08/28/16 David Carrillo MD [address] [place] [address] Referring Urology 10/06/16 Physical Therapist Aide Relationship Specialty Start Date End Date Stanton Velasco MD [address] [place] [address] PCP - General Internal Medicine 08/18/22 Stanton Velasco MD [address] [place] [address] PCP - Medical [place] 02/13/2402/11 Alvina Sanchez LPN [address] [place] [address] 05/06/24 Physical Therapist Aide Relationship Specialty Start Date End Date Stanton Velasco MD [address] [place] [address] PCP - General Internal Medicine 08/18/22 Stanton Velasco MD [address] [place] [address] PCP - Medical [place] 02/13/2402/11 Alvina Sanchez LPN [address] [place] [address] 05/06/24 Physical Therapist Aide Relationship Specialty Start Date End Date Stanton Velasco MD [address] [place] [address] PCP - General Internal Medicine 08/18/22 Stanton Velasco MD [address] [place] [address] PCP - Medical [place] 02/13/2402/11 Alvina Sanchez LPN [address] [place] [address] 05/06/24 Physical Therapist Aide Relationship Specialty Start Date End Date Stanton Velasco MD [address] [place] [address] PCP - General Internal Medicine 08/18/22 Stanton Velasco MD [address] [place] [address] PCP - Medical [place] 02/13/2402/11 Alvina Sanchez LPN [address] [place] [address] 05/06/24 Physical Therapist Aide Relationship Specialty Start Date End Date Stanton Velasco II, MD [address] [place] [address] [place] [address] PCP - General Internal Medicine 04/01/21 Hossein Tran DO [address] [place] [address] Referring Ophthalmology 08/28/16 David Carrillo MD [address] [place] [address] Referring Urology 10/06/16 Physical Therapist Aide Relationship Specialty Start Date End Date Stanton Velasco II, MD [address] [facility] [address] [place] [address] PCP - General Internal Medicine 04/01/21 Hossein Tran DO [address] [place] [address] Referring Ophthalmology 08/28/16 David Carrillo MD [address] [place] [address] Referring Urology 10/06/16 Physical Therapist Aide Relationship Specialty Start Date End Date Stanton Velasco II, MD [address] [facility] [address] [place] [address] PCP - General Internal Medicine 04/01/21 Hossein Tran, [address] [place] [address] Referring Ophthalmology 08/28/16 David Carrillo MD [address] [place] [address] Referring Urology 10/06/16 Goals (unrecognized section and content) Goals may [...] BE BASED ON THE PRIMARY CLINICAL RECORDS. [facility]. provides no warranty or guarantee of the accuracy or completeness of information in this document.
--- NOTE | 2024-11-01 12:55 | XR_ITS ---
The [address] [address] Patient Name: CHELSEA PATEL MRN: [id number] date: 1950 Sex: M Assigned Patient Location: ER Current Patient Location: ER Accession/Order Number: [id number] Exam Date: 11/01/2024 13:05 Report Date: 11/01/2024 13:49 At the request of: ENRIQUETA ARITA MD Procedure: XR abdomen 1V X-ray of the abdomen INDICATION: Possible constipation, left lower quadrant abdominal pain COMPARISON: 04/05/2024 FINDINGS: Zzzb-gj-fawsudki gaseous distention of the transverse colon. Weqj-fo-mmawvrfe fecal retention rectosigmoid junction and descending colon. Small bowel is not well evaluated. Cholelithiasis right upper quadrant. L4-5 discectomy and fusion noted. XR/XR abdomen 1V IMPRESSION: Wrrc-sx-[id number] stool retention rectosigmoid junction.. Gaseous distention of the transverse colon noted, nonspecific. Cholelithiasis. Impression dictated by: Matheus Chahal M.D. 11/01/2024 1:49 PM Dictation Location: [place] [address] Electronically authenticated by: [id number] Y Date: 11/01/2024 13:49
--- NOTE | 2024-11-01 12:57 | ED.GENADUL1 ---
HPI HPI - General Adult General Chief complaint: Abdominal Pain Stated complaint: ABDOMINAL PAIN Time Seen by Provider: 11/01/24 12:51 Source: patient Mode of arrival: walk-in Limitations: no limitations History of Present Illness HPI narrative: 74-year-old male presents to the emergency department for possible constipation. He states he has been having difficulty having a bowel movement and just some liquid is coming out, no blood. 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 He had a colonoscopy about 4 years ago. No fever or vomiting or injury. Related Data Home Medications ?Medication ?Instructions ?Recorded ?Confirmed linaclotide 290 mcg capsule 290 mcg PO DAILY 04/05/24 04/05/24 (Linzess) lisinopril 20 mg tablet 20 mg PO DAILY 04/05/24 11/01/24 loratadine 10 mg tablet (Allergy 10 mg PO DAILY 04/05/24 11/01/24 Relief (loratadine)) Held on 11/01/24. Instructions: Order Change ascorbate calcium (vitamin C) 814 mg PO 11/01/24 mg/gram oral powder (Vitamin C (ascorbate calcium)) aspirin 81 mg tablet,delayed 81 mg PO DAILY 11/01/24 11/01/24 release (Adult Aspirin Regimen) cholecalciferol (vitamin D3) 10 10 mcg PO DAILY 11/01/24 11/01/24 mcg (400 unit) capsule (Vitamin D3) isosorbide mononitrate 60 mg 60 mg PO DAILY 11/01/24 11/01/24 tablet,extended release 24 hr lactulose 10 gram/15 mL oral 11/01/24 solution metoprolol tartrate 50 mg tablet 50 mg PO DAILY 11/01/24 11/01/24 (Lopressor) rosuvastatin 40 mg tablet (Crestor) 40 mg PO DAILY 11/01/24 11/01/24 tenapanor 50 mg tablet (Ibsrela) 50 mg PO BID 11/01/24 11/01/24 Allergies Allergy/AdvReac Type Severity Reaction Status Date / Time bee venom AdvReac Unknown Uncoded 11/01/24 12:46 Opioid HPI Opioid Management Most Recent Opioid Data: Last Pain Scale 7 Today, 12:41 Review of Systems ROS Narrative A ten point review of systems is negative except as noted above. PFSH PFSH Social History Little interest or pleasure in doing things: not at all Feeling down, depressed, or hopeless: not at all Exam Narrative Exam Narrative: Nurses note and vital signs reviewed and patient is not hypoxic. General: The patient appears well and in no apparent distress. Patient is resting comfortably on cart. Skin: Warm, dry, no pallor noted. There is no rash noted. Head: Normocephalic, atraumatic Eye: Normal conjunctiva, no drainage Ears, Nose, Mouth, and Throat: oral mucosa is moist. Nares patent. Cardiovascular: Regular Rate and Rhythm Respiratory: Patient is in no distress, no accessory muscle use, lungs are clear to auscultation, no wheezing, rales or rhonchi Back: non-tender GI: Soft and nondistended and no mass, no tenderness Musculoskeletal: The patient has no evidence of calf tenderness, no pitting edema, symmetrical pulses noted bilaterally Neurological: A&O, normal speech Psychiatric: Cooperative Constitutional Vital Signs, click to edit/add: Last Vital Signs Temp 98.9 F 11/01/24 12:41 Pulse 87 11/01/24 12:41 Resp 14 11/01/24 12:41 BP 148/90 H 11/01/24 12:41 Pulse Ox 96 11/01/24 12:41 O2 Del Method Room Air 11/01/24 12:41 Course Vital Signs Vital signs: Vital Signs Temperature 98.9 F 11/01/24 12:41 Pulse Rate 87 11/01/24 12:41 Respiratory Rate 14 11/01/24 12:41 Blood Pressure 148/90 H 11/01/24 12:41 Pulse Oximetry 96 11/01/24 12:41 Oxygen Delivery Method Room Air 11/01/24 12:41 Temperature 98.9 F 11/01/24 12:41 Pulse Rate 87 11/01/24 12:41 Respiratory Rate 14 11/01/24 12:41 Blood Pressure 148/90 H 11/01/24 12:41 Pulse Oximetry 96 11/01/24 12:41 Oxygen Delivery Method Room Air 11/01/24 12:41 Medical Decision Making MDM Narrative Medical decision making narrative: The patient is found to be constipated. He was given Dulcolax here as well as a bottle of magnesium citrate to take home with him and drink. There is no evidence of bowel obstruction. Treatment diagnosis and follow-up were discussed with the patient. Differential Diagnosis Differential Diagnosis: Constipation, bowel obstruction, abdominal pain Lab Data Lab results reviewed: Yes I reviewed the patient's lab results Labs: Lab Results 11/01/24 Range/Units 12:50 WBC 6.6 (4.0-11.0) 10^3/uL RBC 5.01 (4.70-6.10) 10^6/uL Hgb 15.5 (14.0-18.0) g/dL Hct 45.4 (42.0-54.0) % MCV 90.6 (80.0-94.0) fL MCH 30.9 (25.9-34.0) pg MCHC 34.1 (29.9-35.2) g/dL RDW 12.0 (11.0-15.0) % Plt Count 192 (150-450) 10^3/uL MPV 9.5 (9.5-13.5) fL Neut % (Auto) 64.7 (43.0-75.0) % Lymph % (Auto) 24.0 (20.5-60.0) % [place] % (Auto) 9.0 (1.7-12.0) % Eos % (Auto) 1.2 (0.9-7.0) % Baso % (Auto) 0.6 (0.2-2.0) % Neut # (Auto) 4.3 (1.4-6.5) 10^3/uL Lymph # (Auto) 1.6 (1.2-3.8) 10^3/uL [place] # (Auto) 0.6 (0.3-0.8) 10^3/uL Eos # (Auto) 0.1 (0.0-0.7) 10^3/uL Baso # (Auto) 0.0 (0.0-0.1) 10^3/uL Abs Immat Gran (auto) 0.03 (0.00-0.03) 10^3/uL Imm/Tot Granulo (auto) 0.5 (0.0-0.5) % Sodium 141 (136-145) mmol/L Potassium 4.1 (3.5-5.1) mmol/L Chloride 104 (98-107) mmol/L Carbon Dioxide 28.2 (21.0-32.0) mmol/L Anion Gap 12.9 BUN 17.0 (7.0-18.0) mg/dL Creatinine 0.88 (0.70-1.30) mg/dL Est GFR ( Amer) >60 (>=60 mL/min/1.73m^2) Est GFR (Non-Af Amer) >60 (>=60 mL/min/1.73m^2) BUN/Creatinine Ratio 19.3 Glucose 125 H (74-106) mg/dL Calcium 8.9 (8.5-10.1) mg/dL Imaging Data Abdominal x-ray: Radiologist's impression: ITS Impressions Abdomen X-Ray 11/01/24 12:55 IMPRESSION: [id number]-td-frycmklj stool retention rectosigmoid junction.. Gaseous distention of the transverse colon noted, nonspecific. Cholelithiasis. Impression dictated by: Matheus Chahal M.D. 11/01/2024 1:49 PM Dictation Location: [place] [address] Electronically authenticated by: [id number] Y Date: 11/01/2024 13:49 Discharge Plan Discharge Chief Complaint: Abdominal Pain Clinical Impression: Constipation Patient Disposition: Home, Self-Care Time of Disposition Decision: 14:13 Condition: Good Mode of Transportation: Private Vehicle Prescriptions / Home Meds: No Action lisinopril 20 mg tablet 20 mg PO DAILY loratadine [Allergy Relief (loratadine)] 10 mg tablet 10 mg PO DAILY Linzess 290 mcg capsule 290 mcg PO DAILY lactulose 10 gram/15 mL solution aspirin [Adult Aspirin Regimen] 81 mg tablet,delayed release (DR/EC) 81 mg PO DAILY metoprolol tartrate [Lopressor] 50 mg tablet 50 mg PO DAILY rosuvastatin [Crestor] 40 mg tablet 40 mg PO DAILY isosorbide mononitrate 60 mg tablet extended release 24 hr 60 mg PO DAILY Vitamin C (ascorbate calcium) 814 mg/gram powder PO cholecalciferol (vitamin D3) [Vitamin D3] 10 mcg (400 unit) capsule 10 mcg PO DAILY Ibsrela 50 mg tablet 50 mg PO BID Rx Instructions: must administer immediately before first meal of day/breakfast and dinner Print Language: Togolese Instructions: Constipation (ED) Referrals: JAMES SEQUEIRA [Primary Care Provider, Internal Medicine] - 1 week
[2024-11-01 13:00] LABS: Hematocrit 45.4 % (42.0-54.0); Hemoglobin 15.5 g/dL (14.0-18.0); Immature Granulocytes Abs Auto 0.03 10^3/uL (0.00-0.03); Immature Granulocytes Pct Auto 0.5 % (0.0-0.5); Lymphocytes Absolute Auto 1.6 10^3/uL (1.2-3.8); Mean Corpuscular HGB Conc 34.1 g/dL (29.9-35.2); Mean Corpuscular Hemoglobin 30.9 pg (25.9-34.0); Mean Corpuscular Volume 90.6 fL (80.0-94.0); Platelet Count 192 10^3/uL (150-450); Red Blood Count 5.01 10^6/uL (4.70-6.10); White Blood Count 6.6 10^3/uL (4.0-11.0)
[2024-11-01 13:09] LABS: Anion Gap 12.9; Blood Urea Nitrogen 17.0 mg/dL (7.0-18.0); Calcium 8.9 mg/dL (8.5-10.1); Carbon Dioxide 28.2 mmol/L (21.0-32.0); Chloride 104 mmol/L (98-107); Estimated GFR (African America >60 (>=60 mL/min/1.73m^2); Estimated GFR (Non-African Ame >60 (>=60 mL/min/1.73m^2); Glucose 125 mg/dL (74-106); Potassium 4.1 mmol/L (3.5-5.1); Sodium 141 mmol/L (136-145)
[2024-11-01] MEDS: BISACODYL 5 MG TABLET 10 MG PO (14:20)
[2024-11-01] MEDS: MAGNESIUM CITRATE 296 ML SOLUTION PO (14:20)
[2024-11-01 14:25] VITALS: BP 142/83; PULSE 78; O2SAT 99
== END 2024-11-01 14:25 | disposition home or self-care (01) ==
PROVIDERS: Emergency Provider Emergency Medicine; PCP Internal Medicine
DX: K59.00 Constipation, unspecified (principal); K80.20 Calculus of gallbladder without cholecystitis without obstruction
CPT/HCPCS: 36415; 74018; 80048; 85025; 99284

== ENCOUNTER 2024-11-10 11:48 | Outpatient (OUT) | payer MEDICARE, SELFPAY ==
--- NOTE | 2024-11-10 11:00 | NM_ITS ---
Patient Name: CHELSEA PATEL MR#: [id number] : 1950 Exam Date: 11/10/2024 Ordering Doctor: BOZENA DOMINGO CNP RADIOLOGY REPORT PROCEDURE: NM ROSENDA PERF SPECT REST STR COMPARISON: None. INDICATIONS: PRE PROCEDURE CARDIOVASCULAR EXAM TECHNIQUE: Exam Description: Stress/Rest two day protocol gated SPECT Rest Imagin.4 mCi Tc-99m Cardiolite IV on 11/11/2024 Stress Imaging 25.0 mCi Tc-99m Cardiolite IV on 11/10/2024 Exercise Protocol: 0.4 mg Lexiscan given IV Heart Rate (bpm): Rest: 62 Max: 88 PMHR: 61 Blood Pressure: Rest: 144/98 Max: 144/98 Symptoms: Rest and peak stress ECG findings were pending and the exercise portion of the study was pending per attending physician [facility] . For more details please see separate cardiac stress test report. FINDINGS: QUALITY OF STUDY: Fair PERFUSION DEFECT: yes LOCATION: Inferior SIZE: Moderate SEVERITY: Moderate TYPE: Fixed WALL MOTION: LV SIZE: 121 mL. TID / TCD: 1.1 LVEF: Calculated EF 64%. SUMMARY: Myocardial perfusion imaging study CONCLUSION: This report was transmitted to the referring physician at the report approval time, and the office called to confirm receipt. -Negative myocardial perfusion stress study for ischemia. -Abnormal myocardial perfusion study -Fixed inferior perfusion defect that might be artifact. -Normal global left ventricle systolic function -No TID Dictated by: Cuba Salgado MD on 11/13/2024 at 15:02 Approved by: Cuba Salgado MD on 11/13/2024 at 15:08
--- NOTE | 2024-11-10 11:49 | PC.NURSE ---
Nursing Note Cardiac Stress Test Reviewed: Medication, allergies and patient history reviewed. Stress Test: [x ] Patient tolerated stress test well. [ ] Patient unable to tolerate walking on treadmill. Switched to Lexiscan stress test. [x ] No chest pain noted per patient [ ] Chest pain that resolved prior to leaving stress lab. [x ] No dyspnea noted. [ ] Dyspnea that resolved prior to leaving stress lab. [x ] Patient left stress lab asymptomatic and hemodynamically stable. [ ] Patient taken to the Emergency Room due to non-resolving symptoms following stress test. [ ] Patient achieved target heart rate. [ ] Patient unable to achieve target heart rate. [ ] Aminophylline administered as reversal agent to Lexiscan (Regadenoson). [ ] Nitro administered. Nursing Comments:
[2024-11-10] MEDS: REGADENOSON 0.4 MG/5 ML SYRINGE IV (11:50)
== END 2024-11-10 11:49 | disposition home or self-care (01) ==
LOC: NM 11:49
PROVIDERS: PCP Internal Medicine; Visit Provider Nurse Practitioner Family
DX: R07.9 Chest pain, unspecified (principal); Z01.810 Encounter for preprocedural cardiovascular examination
CPT/HCPCS: 78452; 93017; A9500; J2785

== ENCOUNTER 2025-01-15 10:37 | Outpatient (OUT) | payer MEDICARE, SELFPAY ==
--- OUTSIDE RECORDS SUMMARY | 2025-01-01 09:07 | XMS_ITS | Encounter Summary ---
Author Organization [facility] Address [address] [place] [address] Care Team Providers Care Broaching Machine Repairer Name Role Phone Hossein Tran DO Unavailable [phone] David Carrillo MD Unavailable [phone] Rod FATIMA MD, Stanton Payne Primary Care Provider [phone] Source Comments In the event this information is protected by the Federal Confidentiality of Alcohol and Drug AbusePatient Records regulations: The Federal rules restrict any use of the information to criminally investigate or prosecute any alcohol or drug abuse patient.[facility] Reason for Visit * Auth/Cert (Routine)SpecialtyDiagnoses / ProceduresReferred By ContactReferred To Contact Diagnoses Non-recurrent unilateral inguinal hernia without obstruction or gangrene Non-recurrent unilateral inguinal hernia without obstruction or gangrene [K40.90] Procedures RPR 1ST INGUN HRNA AGE 5 YRS/> REDUCIBLE HERNIORRHAPHY INGUINAL ELECTIVE ADULT REDUCIBLE [facility] Surgery [address] [place] [address] Phone: tel: Referral IDStatusReasonStart DateExpiration DateVisits RequestedVisits [id number] Encounter Details DateTypeDepartmentCare Team (Latest Contact Info)Uybkkmoctuz53/20/2025 9:07 AM EST - 01/01/2025 2:06 PM ESTHospital Encounter [facility] Surgery [address] [place] [address] [place] [address] [place] [address] Non-recurrent unilateral inguinal hernia without obstruction or gangrene [K40.90] Discharge Disposition: Home Social History Tobacco UseTypesPacks/DayYears UsedDateSmoking Tobacco: FormerCigarettes1.310 11/14/1987 - 11/13/1997Smokeless Tobacco: NeverAlcohol UseStandard Drinks/Week CommentsYes0 (1 standard drink = 0.6 oz pure alcohol)2 cans of beer per year. AUDIT-CAnswerDate RecordedQ1: How often do you have a drink containing alcohol? Monthly or less12/19/2019Q2: How many drinks containing alcohol do you have on a typical day when you are drinking?1 or Q3: How often do you have six or more drinks on one occasion?Never12/19/2019PHQ-2AnswerDate RecordedPHQ2 Wsvoz020Area Deprivation IndexAnswerDate RecordedNational Score (1-100), lower number is lower voya356406/23/2022State Score (1-10), lower number is lower [id number] from: https://www.neighborhoodatlas.[facility].edu/. Last address used for [address] 06/23/2022Sex and Gender InformationValueDate RecordedSex Assigned at IxauvLcle01/06/2024 9:29 AM EDT Legal NcxOxab9103/23/2020 3:19 PM ESTGender GskwbbcnFvmn29/06/2024 9:29 AM EDT Sexual OrientationNot on filedocumented as of this encounter Last Filed Vital Signs Vital SignReadingTime TakenCommentsBlood Khworzxg153/7701/01/2025 1:45 PM EST Ymcqo930501/01/2025 1:45 PM AROSfyrktvsvbq67.8 ??C (98.2 ??F)01/01/2025 12:20 PM ESTRespiratory Vxaa766703/03/2024 1:45 PM ESTOxygen Uauetumhlv78%01/01/2025 1:45 PM ESTInhaled Oxygen Concentration--Weight--Height--Body Mass Index--documented in this encounter Functional Status * Are you deaf or do you have serious difficulty hearing?AnswerDate of WmwyyilndbKjbuyzTp22/23/2022 3:26 PM Corry Hansen RN * Are you blind or do you have serious difficulty seeing, even when wearing glasses?AnswerDate of DldmnwcfphPslqpgBn68/23/2022 3:26 PM Corry Hansen RN * Do you have serious difficulty walking or climbing stairs?AnswerDate of DpujcbpmenDdtjvuRqu21/23/2022 3:26 PM Corry Hansen RN * Do you have difficulty dressing or bathing?AnswerDate of AssessmentAutMoberly Regional [facility] 10/31/2018 3:35 PM Dora Brooke RN * Because of a physical, mental, or emotional condition, do you have difficulty doing errands alone such as visiting a doctor's office or shopping?AnswerDate of VnerotqszxYyefgtZvj39/23/2022 3:26 PM Corry Hansen RN documented as of this encounter Mental Status * Because of a physical, mental, or emotional condition, do you have serious difficulty concentrating, remembering, or making decisions?AnswerEntry Date BimjlzRi21/23/2022 3:26 PM Corry Hansen RN documented in this encounter Medications at Time of Discharge MedicationSigDispense QuantityRefillsLast FilledStart DateEnd clotrimazole (LOTRIMIN) 1 % cream Apply to affected area.10/31/2024 ALLERGY RELIEF, LORATADINE, 10 mg tablet Take 10 mg by mouth once daily. lactulose 10 gram/15 mL solution TAKE 15 mL BY MOUTH IN THE MORNING and then TAKE 15 mL BY MOUTH AT BEDTIME tenapanor (IBSRELA) 50 mg tablet Take 50 mg by mouth. plecanatide (TRULANCE) 3 mg tablet Take 1 tablet by mouth once daily.12/13/2022 nitroglycerin sublingual (NITROQUICK) 0.4 mg SL tablet Amoxicillin 500 mg tablet TAKE 4 TABLETS BY MOUTH 1 (ONE) HOUR BEFORE procedure then TAKE 2 TABLETS BY MOUTH 6 (SIX) hours after procedure 6 tablet 304 acetaminophen (TYLENOL) 500 mg tablet Take 2 tablets by mouth every 6 hours as needed for pain.05/03/2021 aspirin, enteric coated (ASPIRIN, ENTERIC COATED) 81 mg EC tablet Take 1 tablet by mouth twice daily. 84 tablet 10/31/2018 metoprolol tartrate, short acting, (LOPRESSOR) 50 mg tablet Indications:Coronary artery disease involving cloverdale coronary artery of cloverdale heart without angina pectoris,Essential hypertension,Hyperlipidemia, unspecified hyperlipidemia typeTake 1 tablet by mouth twice daily.10/10/2018 COMPOUNDED PRESCRIPTION 16 fr catheters 30 Device lisinopril (ZESTRIL, PRINIVIL) 20 mg tablet Take 20 mg by mouth once daily. ascorbic acid, vitamin C, (VITAMIN C) 500 mg tablet Take 1 tablet by mouth once daily.06/29/2017 MAGNESIUM HYDROXIDE (MILK OF MAGNESIA ORAL) Take [...] Take 40 mg by mouth once daily. oxyCODONE-acetaminophen (PERCOCET) 5-325 mg tablet Indications:Acute post-operative pain,S/P right inguinal hernia repairTake 1 tablet by mouth every 8 hours as needed for up to 3 days. 9 tablet 5103/06/2024documented as of this encounter H&P Notes * Chris Clements MD - 01/01/2025 11:03 AM EST UPDATED HISTORY AND PHYSICAL EXAMINATION SERVICE DATE: 01/01/2025 SERVICE TIME: 11:04 AM PHYSICAL EXAM MUST BE COMPLETED ON ADMISSION The History and Physical (completed in the past 30 days) has been reviewed and the patient has beenexamined. The contents accurately reflect the patient's condition with the following additions or revisions since the H&P was completed. Examination indicates no changes. This H&P can be found in the Electronic Medical Record dated 12/17/24. SIGNATURE: Chris Clements MD PATIENT NAME: Fahad Patel DATE: January 01, 2025 TIME: 11:04 AM Source Note - ParshallAbi APRN.HOTEL CONTROLLER - 12/17/2024 1:40 PM EST Images from the original note were not included. [facility]est[facility] HISTORY AND PHYSICAL EXAMINATION SERVICE DATE: 12/17/2024 SERVICE TIME: 1:30 PM PRIMARY CARE PHYSICIAN: Stanton Velasco II, MD, MD REASON FOR VISIT: Fahad Patel is a 74 year old male who is scheduled for Right - HERNIORRHAPHY INGUINAL ELECTIVE ADULT REDUCIBLE at the request of Dr. Chris Clements for consultation. My final recommendation will becommunicated back to the requesting physician by way of shared medical record or letter. Assessment CAD S/p saphenous vein graft to the LAD (2004) given need for emergency CABG due to complicated PCI Denies any new or worsening cardiac symptoms Follows cardiology at [facility], last OV 11/25/2024. Stress test 10/2024: negative for ischemia LVEF:64%. On ASA- advised to continue HTN Stable and compliant with medications Denies chest pain or headaches Last 5 Encounter BP Readings: Date: BP: 12/17/2024 134/85 02/26/2024 111/70 12/12/2023 130/72 08/02/2023 112/76 07/05/2023 124/70 HLD On Statin, monitored by PCP and cardiology Most recent labs stable ( In care everywhere) Chronic constipation Managed on medication, Following with gastro Scheduled for colonoscopy 12/23 at OSH Incomplete bladder emptying Following with urology, Dr. Garcia Does self cath 3x daily ANESTHESIA FINDINGS: Intubation History: No history of difficult intubation Significant Anesthesia Considerations: none Airway History: No history of difficult airway Leal Activity Status Index: METS: Walk indoors, [...] floors, or carrying in groceries (3.50 METs) Climb a flight of stairs or walk up a hill (5.50 METs) DASI Score: 18.95 Clinical Frailty Scale: 3. Well, with treated comorbid disease STOP-Bang Score: Snores loudly Has or is being treated for high blood pressure Patient over 50 years old Male patient Denies feeling tired, fatigued, or sleepy during the daytime Has not been observed to stop breathing or choking/gasping during sleep BMI less than or equal to 35 kg/m^2 Does not have a large neck STOP-Bang Score: 4 [id number] Score: Age: >=75 Sex: male CHF history: No Hypertension history: Yes Stroke/TIA/thromboembolism history: No Vascular disease history: Yes Diabetes history: No [id number] Score: 4 ARISCAT Score: Age: 51-80 Preoperative SpO2: >=96% Respiratory infection in the last month: No Preoperative anemia: Yes Surgical incision: peripheral Duration of surgery: <2 hrs Emergency procedure: No ARISCAT Score: 14 I - PHYSICAL EVALUATION AIRWAY Patient intubated: No. Tracheostomy tube not present Mallampati: II. TM distance: >3 FB. Neck ROM: full ROM without neurological symptoms. Mouth openin FB. Short neck: no. Thick neck: no DENTAL Dental findings: bridge and caps/crowns. II - ANESTHESIA PLAN Anesthetic plan additional comments: *PACC/TCI - anesthesia choice. Informed Consent Prepared for surgery: This patient is optimally prepared for surgery. CONSULTS: Patient does not require consults for optimization at this time. The Following Tests/Procedures Have Been Initiated: Orders Placed This Encounter clotrimazole (LOTRIMIN) 1 % cream Sig: Apply to affected area. ALLERGY RELIEF, LORATADINE, 10 mg tablet Sig: Take 10 mg by mouth once daily. lactulose 10 gram/15 mL solution Sig: TAKE 15 mL BY MOUTH IN THE MORNING and then TAKE 15 mL BY MOUTH AT BEDTIME tenapanor (IBSRELA) 50 mg tablet Sig: Take 50 mg by mouth. Planned Anesthetic: Per anesthesia choice Subjective CHIEF COMPLAINT: right groin pain HPI: 74 year old year old male presents today with complaints of right groin pain. Found to have inguinal hernia on exam. Elected for above surgery PAST MEDICAL HISTORY Diagnosis Date CAD (coronary artery disease) 2005 [place] in 1997. Had a stent placed in 2008 c/b coronary artery dissection and that lead to a CABG x1 [id number] Former smoker quit 1997 Hyperlipidemia Hypertension Intermittent self-catheterization of bladder Urge incontinence of urine PAST SURGICAL HISTORY Procedure Laterality Date ARTHRP KNE CONDYLE&PLATU MEDIAL&LAT COMPARTMENTS 10/30/2018 right CABG (1) VEIN GRAFT & ARTERIAL GRAFT 2008 coronary dissection during stent placement CHEMODNRVTJ [facility] INNERVATED FACIAL NRV UNIL CYSTO.PANENDO 11/24/2021 Dr. Cobos CYSTO.PANENDO 05/31/2022 CYSTO.PANENDO N/A 06/04/2023 CYSTOSCOPY 03/29/2017 Dr. Fady Cobos - [facility] LEFT HEART CATH,PERCUTANEOUS 05/11/2003 Cardiac [...] done by Nava Back LPN, [facility] FAMILY HISTORY Problem Relation Age of Onset Coronary Artery Disease Mother Stroke Mother 65 Diabetes Sister Diabetes Brother Anesthesia Problems No Family History SOCIAL HISTORY: SOCIAL HISTORY[1] Prior to Admission medications as of 12/17/24 1330 Medication Sig Last Dose Taking clotrimazole (LOTRIMIN) 1 % cream Apply to affected area. Yes ALLERGY RELIEF, LORATADINE, 10 mg tablet Take 10 mg by mouth once daily. Yes lactulose 10 gram/15 mL solution TAKE 15 mL BY MOUTH IN THE MORNING and then TAKE 15 mL BY MOUTH ATBEDTIME Yes tenapanor (IBSRELA) 50 mg tablet Take 50 mg by mouth. Yes plecanatide (TRULANCE) 3 mg tablet Take 1 tablet by mouth once daily. Yes nitroglycerin sublingual (NITROQUICK) 0.4 mg SL tablet Yes Amoxicillin 500 mg tablet TAKE 4 TABLETS BY MOUTH 1 (ONE) HOUR BEFORE procedure then TAKE 2 TABLETSBY MOUTH 6 (SIX) hours after procedure Yes acetaminophen (TYLENOL) 500 mg tablet Take 2 tablets by mouth every 6 hours as needed for pain. Yes aspirin, enteric coated (ASPIRIN, ENTERIC COATED) 81 mg EC tablet Take 1 tablet by mouth twice daily. Yes metoprolol tartrate, short acting, (LOPRESSOR) 50 mg tablet Take 1 tablet by mouth twice daily. Yes COMPOUNDED PRESCRIPTION 16 fr catheters Yes lisinopril (ZESTRIL, PRINIVIL) 20 mg tablet Take 20 mg by mouth once daily. Yes ascorbic acid, vitamin C, (VITAMIN C) 500 mg tablet Take 1 tablet by mouth once daily. Yes MAGNESIUM HYDROXIDE (MILK OF MAGNESIA ORAL) Take 1 Bottle by mouth as needed. Yes isosorbide mononitrate ER (IMDUR) 60 mg 24 hr tablet Take 60 mg by mouth once daily. Yes cholecalciferol (VITAMIN D3) 1,000 unit tab tablet Take 1,000 Units by mouth once daily. Yes Multivitamin capsule Take 1 capsule by mouth once daily. Yes rosuvastatin (CRESTOR) 40 mg tablet Take 40 mg by mouth once daily. Yes No medication comments found. ALLERGIES Allergen Reactions Bee Pollen Swelling Bee Sting Swelling Hay Fever [Seasonal* Other: See Comments Sneezing. Oxybutynin Other: See Comments Other Reaction(s): Constipation Venom-Honey Bee Other: See Comments, Swelling Other Reaction(s): Unknown Trospium Other: See Comments Other Reaction(s): Xerostomia Covid Immunization Dates Current Care Gaps Covid-19 Vaccine ( season) Overdue since 10/13/2024 11/12/2023 Outside Immunization: COVID-19 (MODERNA), MRNA, LNP-S, PF, 50 MCG/0.5 ML (AGES 12+ YEARS) 12/12/2022 Imm Admin: COVID-19 vaccine, age 12+ yr (MODERNA SPIKEVAX) 11/17/2021 Imm Admin: COVID-19 vaccine, age 12+ yr, bivalent (MODERNA) 08/12/2021 Imm Admin: COVID-19 original vaccine, full dose, monovalent (MODERNA) 12/14/2020 Imm Admin: COVID-19 original vaccine, full dose, monovalent (MODERNA) Only the first 5 history entries have been loaded, but more history exists. REVIEW OF SYSTEMS: PAIN ASSESSMENT: General: No weight loss, malaise or fevers. Neuro: No history of TIA's, stroke, RACK LOADER tumor, impaired sensorium, hemiplegia, paraplegia or quadraplegia. No neurological symptoms or problems. Respiratory: No history of current cough or dyspnea, or pneumonia in the past 6 weeks. No history of respiratory/pulmonary symptoms or problems. Cardiovascular: Negative for Recent MO, Arrhythmia, Chest Pain, DVT/PE + CAD s/p CABG + HTN, HLD GI: Negative for Liver disease + chronic constipation : Negative for CKD + self caths 3 times daily Endocrine: No history of diabetes. Has not [...] No history of psychiatric symptoms or problems. Marijuana use: No Musculoskeletal: Back pain and neck pain Skin: Negative for lesions, rash and itching. Implanted devices: No Objective PHYSICAL EXAM: VITALS: BP 134/85 Pulse 67 Temp (Src) 97.8 (Oral) Resp 16 Ht 5' 9 (1.75m) Wt 213 lb 13.5 oz (97.0kg) SpO2 99% BMI 31.57 kg/(m^2). General: Alert and oriented, No acute distress Skin: Normal color, no rash, no lesions. HEENT: EOM, pupils equal, round and reactive. Cardiovascular: Normal S1 & S2, no rubs, murmurs or gallops. No JVD. Pulse regular. Lungs: Normal breath sounds, no wheezes or crackles. Abdomen: Soft, non-tender, no rigidity. Extremities: No lower ext edema Neurological: Normal cognition and motor skills. Pulses: Radial pulses; left 2+ / right 2+. Diagnostic tests reviewed for today's visit: No new labs Stress test 11/10/2024 ( in care everywhere ) -Negative for ischemia -Fixed inferior perfusion defect that may be artifact -Normal global LV systolic function -No TID -No ischemic EKG changes LVEF: Calculated EF 64%. ECHO 06/06/2024 CONCLUSION: 1. Normal left ventricular size and systolic function. LVEF is estimated at 55 to 60%. 2. Normal right ventricular size and systolic function. 3. Mild left atrial dilatation. 4. Trivial mitral regurgitation. 5. No significant valvular dysfunction. Instructions Given to Patient: Instructions located in the after visit summary. Patient given verbal and written preop instructions and voices comprehension and compliance. SIGNATURE: Abi Patel APRN.CNP PATIENT NAME: Fahad Patel DATE: 12/17/2024 TIME: [1] Social History Tobacco Use Smoking status: Former [...] tx for drug/alcohol abuse in the past. documented in this encounter OR Notes * Brief Op Note - Chris Clemetns MD - 01/01/2025 12:10 PM EST BRIEF OPERATIVE / PROCEDURE NOTE LOG ID: [id number] SURGERY/PROCEDURE DATE: 01/01/2025 INCISION/PROCEDURE START TIME: 11:41 AM INCISION CLOSE/PROCEDURE END TIME: SURGEON(S)/PROCEDURALIST(S) AND FAMILY DEVELOPMENT EXTENSION SPECIALIST(S): Surgeons and Role: * Chris Clements MD - Primary Physician Embedded Case Manager: Rosie Monte V, PA-C SURGERY/PROCEDURE(S): repair with Paritex pro grocery specialist p/p 3 cm direct right inguinal hernia ANESTHESIA: General FINDINGS: same, nerve x 3 ESTIMATED BLOOD LOSS: 0 ml SPECIMENS: None Paritex pro grocery specialist mesh CLOSURE TECHNIQUE: Primary PRE-OP/PRE-PROCEDURE DIAGNOSIS: right inguinal hernia POST-OP/POST-PROCEDURE DIAGNOSIS: Same as Preop, direct SIGNATURE: Chris Clements MD PATIENT NAME: Fahad Patel DATE: January 01, 2025 TIME: 12:10 PM * Operative Report - Chris Clements MD - 01/01/2025 12:00 AM EST [facility] - Operative Report FAHAD PATEL : 1950 AGE: 74. SEX: M PATIENT TYPE: A HOSP SVC: [facility] LOCATION: [facility] ATTENDING PHYSICIAN: CHRIS CLEMENTS [facility] NUMBER: [id number] DATE OF SURGERY/PROCEDURE: 01/01/2025 INCISION/PROCEDURE START TIME: 11:41 AM INCISION CLOSE/PROCEDURE END TIME: 12:13 PM PREOPERATIVE DIAGNOSIS: Right inguinal hernia, direct. POSTOPERATIVE DIAGNOSIS: Right inguinal hernia, direct. SURGEON: Chris Clements M.D. FAMILY DEVELOPMENT EXTENSION SPECIALIST: Rosie Fernando, responsible for exposure, retraction, and assistance with wound closure. There were no qualified surgical residents. SURGERY/PROCEDURE: Repair with Parietex ProGrip mesh plug and patch technique 3 cm direct right inguinal hernia. ANESTHESIA: General. FINDINGS: Same. Nerve anatomy identified and protected x3. The iliohypogastric was kept out of the operative field superiorly. The genitofemoral, inguinal nerve were left attached, the cord undisturbed otherwise. ESTIMATED BLOOD LOSS: None. SPECIMENS: None. Parietex ProGrip mesh was used. CLOSURE TECHNIQUE: Primary. DESCRIPTION OF PROCEDURE: With the patient under adequate general anesthesia, entire region widely prepped and draped with Betadine, Ioban drape in a sterile manner. Audible time-out was completed with all team members. Oblique incision paralleling the inguinal ligament was created in the right lower quadrant over the hernia spaces. This was developed with cautery down to the external oblique, which was infiltrated with local anesthesia, 0.5% ropivacaine. This was for an inguinal and iliohypogastric nerve block. Additional local was infiltrated in the skin later for postop comfort. 3-0 Vicryl is the only suture used. Parietex ProGrip was the mesh chosen. Once the cord was identified and encircled and elevated, the anatomy identified. The direct hernia was opened through the torn out transversalis circumferentially and developed digitally. A wide piece of preperitoneal mesh was placed and sewn to the connective tissues remained, the conjoined tendon andinguinal ligament with interrupted 3-0 Vicryl. There was no indirect or femoral component. An onlaypiece was pressed in the floor in good position, sparingly sewn now to the inguinal ligament and internal oblique musculature, carefully avoiding nerve entrapment throughout the procedure including laterally gently coloring the mesh over the lateral aspect of the indirect space. External oblique was now closed with running locking suture, interrupted in Alma's and dermis running at the skin. Steri-Strips andsterile dressings were applied. He was extubated in the operating room and transferred to recovery in stable condition. Sponge, needle, and instrument counts were correct x2. As the operating surgeon, I was present throughout the entire procedure. Chris Clements M.D. BB:[id number] /[id number] documented in this encounter Plan of Treatment DateTypeDepartmentCare Team (Latest Contact Info)Bulovfvzbrs94/09/2025 1:15 PM ESTOffice Visit General Surgery [address] [place] [address] [place] [address] [place] [address] POST OP RT ING UGBLLR1802/03/2025 2:30 PM ESTOffice Visit Urology [address] [place] [address] Dianne Roldan MD [address] [place] [address] Cysto per staff msgdocumented as of this encounter Procedures Procedure NamePriorityDate/TimeAssociated DiagnosisCommentsRPR 1ST INGUN HRNA AGE 5 YRS/> ZHDMRQURP71/20/2025 11:04 AM EST Non-recurrent unilateral inguinal hernia without obstruction or gangrene documented in this encounter Visit Diagnoses Diagnosis Acute post-operative pain- Primary S/P right inguinal hernia repair Other postprocedural status documented in this encounter Administered Medications Medication OrderMAR ActionAction DateDoseRateSite acetaminophen 1,000 mg tab(s) (TYLENOL) 1,000 mg, ORAL, PRE-OP ONCE, 1 dose, On Sue 01/01/25 at 1030, Preprocedure Given01/01/2025 11:01 AM EST1,000 mg diphenhydrAMINE 12.5 mg injection (BENADRYL) 12.5 mg, INTRAVENOUS, EVERY 4 HOURS NEEDED, 2 doses, Starting on Sue 01/01/25 at 1222, Until Thu103/03/24 at 1606, itching/rash, Nausea/Vomiting - Second Line - Parenteral, Recovery or Phase I (only) fentaNYL 50 mcg/mL 50 mcg injection (SUBLIMAZE) 50 mcg, INTRAVENOUS, EVERY 10 MINUTES NEEDED, 4 doses, Starting on Sue 01/01/25 at 1222, Until Sue 01/01/25 at 1606, Moderate Pain (4-6) - Parenteral, FIRST LINE THERAPY for mild, moderate, or severe pain, Hold for RR <12, HR <50, Recovery or Phase I (only) HYDROmorphone 0.5 mg injection (DILAUDID) 0.5 mg, INTRAVENOUS, EVERY 15 MINUTES NEEDED, 5 doses, Starting on Sue 01/01/25 at 1222, Until Sue 01/01/25 at 1606, Severe Pain (>/=7) - Parenteral, SECOND LINE THERAPY, Hold for RR <12 Caution: IV hydromorphone is approximately 8 times MORE POTENT than IV morphine. For example, hydromorphone 1mg IV = morphine 8mg IV, Recovery or Phase I (only) lactated ringers iv infusion solution 5-30 mL/hr, INTRAVENOUS, CONTINUOUS, Starting on Sue 01/01/25 at 1030, Until Sue 01/01/25 at 1351, Preprocedure Jbhlxuuej86/20/2025 11:21 AM ESTContinued by Kfofntofjq48/20/2025 11:20 AM EST30 mL/hrNew Bag/Syringe/Bxbugc7201/01/2025 11:01 AM EST30 mL/hr30 mL/hr oxyCODONE IR 5 mg tab(s) (ROXICODONE) 5 mg, ORAL, NEEDED, 1 dose, Starting on Sue 01/01/25 at 1222, Until Sue 01/01/25 at 1606, breakthrough pain, Recovery or Phase I (only) prochlorperazine 5 mg injection (COMPAZINE) 5 mg, INTRAVENOUS, EVERY 6 HOURS NEEDED, Starting on Sue 01/01/25 at 1222, Until Sue 01/01/25 [id number], Nausea/Vomiting - First Line - Parenteral, EVERY 6 HOURS NEEDED Protect From Light, Recovery or Phase I (only) documented in this encounter Active and Recently Administered Medications Times are shown in EST.Medication Order/ acetaminophen 1,000 mg tab(s) (TYLENOL) (COMPLETED) 1,000 mg, ORAL, PRE-OP ONCE, 1 dose, On Sue 01/01/25 at 1030, Preprocedure * 1101 (Given - Provider: Kay Eckert RN) ceFAZolin iv piggyback 2 g in D5W (iso-osmotic) 100 mL (ANCEF) (COMPLETED) 2 g, INTRAVENOUS, at 200 mL/hr, Administer over 30 Minutes, PRE-OP ONCE, 1 dose, On Sue 01/01/25 [id number], General Cases PRE-OP ANTIBIOTIC ADMINISTER ONLY IN SURGICAL AREA ??? DO NOT ADMINSTER ON THE FLOOR Refrigerate, Antimicrobial indication: Prophylaxis, Preprocedure * 1101 (Sent with Patient - Provider: Kay Eckert RN) * 1124 (Given - Provider: Larissa Head APRN.CRNA) Medication Order// lactated ringers iv infusion solution (CANCELED) 5-30 mL/hr, INTRAVENOUS, CONTINUOUS, Starting on Sue 01/01/25 at 1030, Until Sue 01/01/25 at 1351, Preprocedure * 1101 (New Bag/Syringe/Bottle - Provider: Kay Eckert RN) * 1120 (Continued by Anesthesia - Provider: Larissa Head APRN.CRNA) * 1120 (Stopped - Provider: Larissa Head APRN.CRNA - Comment: Switch to gravity) * 1121 (Restarted - Provider: Larissa Head APRN.CRNA) * 1221 (Infusion Complete - Provider: Larissa McFeaters, FAMILY DEVELOPMENT EXTENSION SPECIALIST.BUTTON MAKER) Medication Order/ diphenhydrAMINE 12.5 mg injection (BENADRYL) 12.5 mg, INTRAVENOUS, EVERY 4 HOURS NEEDED, 2 doses, Starting on Sue 01/01/25 at 1222, Until Thu103/03/24 at 1606, itching/rash, Nausea/Vomiting - Second Line - Parenteral, Recovery or Phase I (only) fentaNYL 50 mcg/mL 50 mcg injection (SUBLIMAZE) 50 mcg, INTRAVENOUS, EVERY 10 MINUTES NEEDED, 4 doses, Starting on Sue 01/01/25 at 1222, Until Sue 01/01/25 at 1606, Moderate Pain (4-6) - Parenteral, FIRST LINE THERAPY for mild, moderate, or severe pain, Hold for RR <12, HR <50, Recovery or Phase I (only) HYDROmorphone 0.5 mg injection (DILAUDID) 0.5 mg, INTRAVENOUS, EVERY 15 MINUTES NEEDED, 5 doses, Starting on Sue 01/01/25 at 1222, Until Sue 01/01/25 at 1606, Severe Pain (>/=7) - Parenteral, SECOND LINE THERAPY, Hold for RR <12 Caution: IV hydromorphone is approximately 8 times MORE POTENT than IV morphine. For example, hydromorphone 1mg IV = morphine 8mg IV, Recovery or Phase I (only) NaCl 0.9% irrigation bottle (CANCELED) X (OR/PROCEDURE) PRN, Starting on Sue 01/01/25 at 1159, Until Sue 01/01/25 at 1220, Intraprocedure * 1159 (Given - Provider: Chris Clements MD - Comment: Allie able Irrigation.) oxyCODONE IR 5 mg tab(s) (ROXICODONE) 5 mg, ORAL, NEEDED, 1 dose, Starting on Sue 01/01/25 at 1222, Until Sue 01/01/25 at 1606, breakthrough pain, Recovery or Phase I (only) prochlorperazine 5 mg injection (COMPAZINE) 5 mg, INTRAVENOUS, EVERY 6 HOURS NEEDED, Starting on Sue 01/01/25 at 1222, Until Sue 11/20/25 [id number], Nausea/Vomiting - First Line - Parenteral, EVERY 6 HOURS NEEDED Protect From Light, Recovery or Phase I (only) ROPivacaine (PF) 5 mg/mL (0.5 %) injection (NAROPIN) (CANCELED) X (OR/PROCEDURE) PRN, Starting on Sue 01/01/25 at 1158, Until Sue 01/01/25 at 1220, Intraprocedure * 1158 (Given - Provider: Chris Clements MD) documented in this encounter Care Teams Team MemberRelationshipSpecialtyStart DateEnd Stanton Velasco II, MD [address] [place] [address] PCP - GeneralInternal Medicine04/01/21 Hossein Tran DO [address] [place] [phone] ReferringOphthalmology08/28/16 David Carrillo MD [address] [place] [address] ReferringUrology10/06/16documented as of this encounter
--- OUTSIDE RECORDS SUMMARY | 2025-01-01 10:50 | XMS_ITS | Encounter Summary ---
Author Organization [facility] Address [address] [place] [address] Care Team Providers Care Client Service Coordinator Name Role Phone Hossein Tran DO Unavailable [phone] David Carrillo MD Unavailable Rod FATIMA MD, Stanton Payne Primary Care Provider [phone] Source Comments In the event this information is protected by the Federal Confidentiality of Alcohol and Drug AbusePatient Records regulations: The Federal rules restrict any use of the information to criminally investigate or prosecute any alcohol or drug abuse patient.[facility] Reason for Visit * Auth/Cert (Routine)SpecialtyDiagnoses / ProceduresReferred By ContactReferred To Contact Diagnoses Non-recurrent unilateral inguinal hernia without obstruction or gangrene Non-recurrent unilateral inguinal hernia without obstruction or gangrene [K40.90] Procedures RPR 1ST INGUN HRNA AGE 5 YRS/> REDUCIBLE HERNIORRHAPHY INGUINAL ELECTIVE ADULT REDUCIBLE [facility] [address] [place] [address] Phone: tel: Referral IDStatusReasonStart DateExpiration DateVisits RequestedVisits [id number] Encounter Details DateTypeDepartmentCare Team (Latest Contact Info)Djalukyukce42/20/2025 10:50 AM EST - 01/01/2025 12:15 PM ESTSurgery [facility] [address] [place] [address] [place] [address] [place] [address] HERNIORRHAPHY INGUINAL ELECTIVE ADULT REDUCIBLE Surgery Details Date/TimeStatusLocationORServicePatient ClassCase ClassCase TypeTrauma Case? 01/01/2025 10:50 AMPostedAV ORAV JA20VmfcdglTteuwxluqy SurgeryElectivePanel 1 ProcedureLRBAnesOp RegionWound ClassCommentsHERNIORRHAPHY INGUINAL ELECTIVE ADULT REDUCIBLERightGeneralGroinClean SurgeonSurgeon RoleServicePanChris Campos, TMKmzasowSbimedh5yhaqkqkjkr in this encounter Social History Tobacco UseTypesPacks/DayYears UsedDateSmoking Tobacco: FormerCigarettes1.310 [...] or more drinks on one occasion?Never12/19/2019PHQ-2AnswerDate RecordedPHQ2 Gcvom284Area Deprivation IndexAnswerDate RecordedNational Score (1-100), lower number is lower sfjy630806/23/2022State Score (1-10), lower number is lower [id number] from: https://www.neighborhoodatlas.medicine.[facility].edu/. Last address used for ydnewyymgon[address]/23/2022Sex and Gender InformationValueDate RecordedSex Assigned at KhltgUius20/06/2024 9:29 AM EDT Legal HqqLqqr3003/23/2020 3:19 PM ESTGender TdebsjybXiyf57/06/2024 9:29 AM EDT Sexual OrientationNot on filedocumented as of this encounter Last Filed Vital Signs Vital SignReadingTime TakenCommentsBlood Lmoqgvzb215/09119 10:47 AM EST Rbqik668501/01/2025 10:47 AM RQFKgbjcpoadrr09.3 ??C (97.3 ??F)01/01/2025 10:47 AM ESTRespiratory Kgjm349503/03/2024 10:47 AM ESTOxygen Ltcdiacnay27%01/01/2025 10:47 AM ESTInhaled Oxygen Concentration--Weight--Height--Body Mass Index--documented in this encounter Functional Status * Are you deaf or do you have serious difficulty hearing?AnswerDate of TqxfwnhbosInlhmwWc09/23/2022 3:26 PM Corry Hansen RN * Are you blind or do you have serious difficulty seeing, even when wearing glasses?AnswerDate of DbgtrfjmwuBfpxjlUi01/23/2022 3:26 PM Corry Hansen RN * Do you have serious difficulty walking or climbing stairs?AnswerDate of LlupwcxgfiDhhlpdRsf40/23/2022 3:26 PM Corry Hansen RN * Do you have difficulty dressing or bathing?AnswerDate of AssessmentAuthorNo 10/31/2018 3:35 PM Dora Brooke RN * Because of a physical, mental, or emotional condition, do you have difficulty doing errands alone such as visiting a doctor's office or shopping?AnswerDate of YlomixslwlAvefanEvp59/23/2022 3:26 PM Corry Hansen RN documented as of this encounter Mental Status * Because of a physical, mental, or emotional condition, do you have serious difficulty concentrating, remembering, or making decisions?AnswerEntry Date RhyzxnAj14/23/2022 3:26 PM Corry Hansen RN documented in this encounter Medications at Time of Discharge MedicationSigDispense QuantityRefillsLast FilledStart DateEnd Date clotrimazole (LOTRIMIN) 1 % cream Apply to [...] 6 (SIX) hours after procedure 6 tablet acetaminophen (TYLENOL) 500 mg tablet Take 2 tablets by mouth every 6 hours as needed for pain.05/03/2021 aspirin, enteric coated (ASPIRIN, ENTERIC COATED) 81 mg EC tablet Take 1 tablet by mouth twice daily. 84 tablet 10/31/2018 metoprolol tartrate, short acting, (LOPRESSOR) 50 mg tablet Indications:Coronary artery disease involving [place] coronary artery of [place] heart without angina pectoris,Essential hypertension,Hyperlipidemia, unspecified hyperlipidemia [...] for up to 3 days. 9 tablet /documented as of this encounter H&P Notes * [...] 2025 TIME: 11:04 AM Source Note - Abi Patel APRN.PATROL MAN - 12/17/2024 1:40 PM EST Images from the original note were not included. [facility] HISTORY [...] or worsening cardiac symptoms Follows cardiology at [facility], last OV 11/25/2024. Stress test 10/2024: negative [...] Well, with treated comorbid disease STOP-Bang Score: Netta loudly Has or is being treated for high blood pressure Patient over 50 years old Male patient Denies feeling tired, fatigued, or sleepy during the daytime Has not been observed to stop breathing or choking/gasping during sleep BMI less than or equal to 35 kg/m^2 Does not have a large neck STOP-Bang Score: 4 [id number] Score: Age: >=75 Sex: male CHF history: No Hypertension history: Yes Stroke/TIA/thromboembolism history: No Vascular disease history: Yes Diabetes history: No [id number] Score: 4 ARISCAT Score: Age: 51-80 Preoperative [...] Diagnosis Date CAD (coronary artery disease) 2005 MS in 1997. Had a stent placed in 2008 c/b coronary artery dissection and that lead to a CABG x1 [id number] Former smoker quit 1997 Hyperlipidemia Hypertension Intermittent self-catheterization of bladder Urge incontinence of urine PAST SURGICAL HISTORY Procedure Laterality Date ARTHRP KNE CONDYLE&PLATU MEDIAL&LAT COMPARTMENTS 10/30/2018 right CABG (1) VEIN GRAFT & ARTERIAL GRAFT 2008 coronary dissection during stent placement CHEMODNRVTJ [facility] INNERVATED FACIAL NRV UNIL CYSTO.PANENDO 11/24/2021 Dr. Cobos CYSTO.PANENDO 05/31/2022 CYSTO.PANENDO N/A 06/04/2023 CYSTOSCOPY 03/29/2017 Dr. Fady Cobos - [facility] LEFT HEART CATH,PERCUTANEOUS 05/11/2003 Cardiac [...] COMPLETE URODYNAMICS 03/29/2017 Procedure done by Nava Bcak LPN, [facility] FAMILY HISTORY Problem Relation Age [...] fevers. Neuro: No history of TIA's, stroke, FIELD UNDERWRITER tumor, impaired sensorium, hemiplegia, paraplegia or quadraplegia. No neurological symptoms or problems. Respiratory: No history of current cough or dyspnea, or pneumonia in the past 6 weeks. No history of respiratory/pulmonary symptoms or problems. Cardiovascular: Negative for Recent MS, Arrhythmia, Chest Pain, DVT/PE + CAD s/p [...] Notes * Brief Op Note - Chris Clements MD - 01/01/2025 12:10 PM EST BRIEF OPERATIVE / PROCEDURE NOTE LOG ID: [id number] SURGERY/PROCEDURE DATE: 01/01/2025 INCISION/PROCEDURE START TIME: 11:41 AM INCISION CLOSE/PROCEDURE END TIME: SURGEON(S)/PROCEDURALIST(S) AND SYNOPTIC METEOROLOGIST(S): Surgeons and Role: * Chris Clements MD - Primary Physician Gifted Teacher: Rosie Monte V, PA-C SURGERY/PROCEDURE(S): repair with Paritex pro four slide machine setter p/p 3 cm direct right inguinal hernia ANESTHESIA: General FINDINGS: same, nerve x 3 ESTIMATED BLOOD LOSS: 0 ml SPECIMENS: None Paritex pro four slide machine setter mesh CLOSURE TECHNIQUE: Primary PRE-OP/PRE-PROCEDURE DIAGNOSIS: right inguinal hernia POST-OP/POST-PROCEDURE DIAGNOSIS: Same as Preop, direct SIGNATURE: Chris Clements MD PATIENT NAME: Fahad Patel DATE: January 01, 2025 TIME: 12:10 PM * Operative Report - Chris Clements MD - 01/01/2025 12:00 AM EST [facility] - Operative Report FAHAD PATEL : 1950 AGE: 74. SEX: M PATIENT TYPE: A HOSP SV: GN LOCATION: [facility] ATTENDING PHYSICIAN: CHRIS CLEMENTS CSN NUMBER: [id number] DATE OF SURGERY/PROCEDURE: 01/01/2025 INCISION/PROCEDURE START TIME: 11:41 AM INCISION CLOSE/PROCEDURE END TIME: 12:13 PM PREOPERATIVE DIAGNOSIS: Right inguinal hernia, direct. POSTOPERATIVE DIAGNOSIS: Right inguinal hernia, direct. SURGEON: Chris Clements M.D. SYNOPTIC METEOROLOGIST: Rosie Fernando, responsible for exposure, retraction, and [...] the skin later for postop comfort. 3-0 Vicrylis the only suture used. Parietex ProGrip was [...] throughout the entire procedure. Chris Clements M.D. BB:[id number] /[id number] documented in this encounter Plan of Treatment DateTypeDepartmentCare Team (Latest Contact Info)Liqkupbtufh84/09/2025 1:15 PM ESTOffice Visit General Surgery [address] [place] [address] [place] [address] [place] [address] POST OP RT ING YKCCDS9102/03/2025 2:30 PM ESTOffice Visit Urology [address] [place] [address] Dianne Roldan MD [address] [place] [address] Cysto per staff msgdocumented as of this encounter Procedures Procedure NamePriorityDate/TimeAssociated DiagnosisCommentsRPR 1ST INGUN HRNA AGE 3 YRS/> WXHSTLPPX40/20/2025 11:04 AM EST Non-recurrent unilateral inguinal hernia without obstruction or gangrene documented in this encounter Visit Diagnoses Diagnosis Acute post-operative pain- Primary S/P right inguinal hernia repair Other postprocedural status Non-recurrent unilateral inguinal hernia without obstruction or gangrene documented in this encounter Administered Medications Medication [...] 1030, Until Sue 01/01/25 at 1351, Preprocedure Snryjwoau52/20/2025 11:21 AM ESTContinued by Wqldmmrcqx86/20/2025 11:20 AM EST30 mL/hrNew Bag/Syringe/Ihtlki7101/01/2025 11:01 AM EST30 mL/hr30 mL/hr NaCl 0.9% irrigation bottle X (OR/PROCEDURE) PRN, Starting on Sue 01/01/25 at 1159, Until Sue 01/01/25 at 1220, Intraprocedure Given01/01/2025 11:59 AM KHF514 mL oxyCODONE IR 5 mg tab(s) (ROXICODONE) 5 mg, ORAL, NEEDED, 1 dose, Starting on Seu 01/01/25 at 1222, Until Sue 01/01/25 at 1606, breakthrough pain, Recovery or Phase I (only) prochlorperazine 5 mg injection (COMPAZINE) 5 mg, INTRAVENOUS, EVERY 6 HOURS NEEDED, Starting on Sue 01/01/25 at 1222, Until Sue 01/01/25 [id number], Nausea/Vomiting - First Line - Parenteral, EVERY 6 HOURS NEEDED Protect From Light, Recovery or Phase I (only) ROPivacaine (PF) 5 mg/mL (0.5 %) injection (NAROPIN) X (OR/PROCEDURE) PRN, Starting on Sue 01/01/25 at 1158, Until Sue 01/01/25 at 1220, Intraprocedure Given01/01/2025 11:58 AM EST20 mLAbdominal Tissuedocumented in this encounter Active and Recently Administered [...] PRE-OP ONCE, 1 dose, On Sue 01/01/25 [id number], General Cases PRE-OP ANTIBIOTIC ADMINISTER ONLY IN SURGICAL AREA ??? DO NOT ADMINSTER ON THE FLOOR Refrigerate, Antimicrobial indication: Prophylaxis, Preprocedure * 1101 (Sent with Patient - Provider: Kay Eckert RN) * 1124 (Given - Provider: Larissa Head APRN.CRNA) Medication Order/ lactated ringers iv infusion solution (CANCELED) 5-30 [...] * 1221 (Infusion Complete - Provider: Larissa Head APRN.CRNA) Medication Order/ diphenhydrAMINE 12.5 mg injection (BENADRYL) 12.5 mg, INTRAVENOUS, EVERY 4 HOURS NEEDED, 2 doses, Starting on Sue 01/01/25 at 1222, Until Thu103/03/24 at 1606, itching/rash, Nausea/Vomiting - Second Line - Parenteral, Recovery or Phase I (only) fentaNYL 50 mcg/mL 50 mcg injection (SUBLIMAZE) 50 mcg, INTRAVENOUS, EVERY 10 MINUTES NEEDED, 4 doses, Starting on Sue 01/01/25 at 1222, Until Sue 11 at 1606, Moderate Pain (4-6) - Parenteral, [...] - Provider: Chris Clements MD - Comment: Bck claudia Torres.) oxyCODONE IR 5 mg tab(s) (ROXICODONE) 5 mg, ORAL, NEEDED, 1 dose, Starting on Sue 01/01/25 at 1222, Until Sue 01/01/25 at 1606, breakthrough pain, Recovery or Phase I (only) prochlorperazine 5 mg injection (COMPAZINE) 5 mg, INTRAVENOUS, EVERY 6 HOURS NEEDED, Starting on Sue 01/01/25 at 1222, Until Sue 01/01/25 [id number], Nausea/Vomiting - First Line - Parenteral, EVERY 6 HOURS NEEDED Protect From Light, Recovery or Phase I (only) ROPivacaine (PF) 5 mg/mL (0.5 %) injection (NAROPIN) (CANCELED) X (OR/PROCEDURE) PRN, Starting on Sue 01/01/25 at 1158, Until Sue 01/01/25 at 1220, Intraprocedure * 1158 (Given - Provider: Chris Clements MD) documented in this encounter Care Teams Team MemberRelationshipSpecialtyStart DateEnd Date Stanton Velasco II, MD [address] [facility] [address] [place] [address] PCP - GeneralInternal Medicine04/01/21 Hossein Tran DO [address] [place] [phone] ReferringOphthalmology08/28/16 David Carrillo MD [address] [place] [address] ReferringUrology10/06/16documented as of this encounter
--- OUTSIDE RECORDS SUMMARY | 2025-01-01 11:20 | XMS_ITS | Encounter Summary ---
Author Organization [facility] Address [address] [place] [address] Care Team Providers Care Clinician Oncology Name Role Phone Hossein Tran DO Unavailable [phone] David Carrillo MD Unavailable [phone] Rod FATIMA MD, Stanton Payne Primary Care Provider [phone] Source Comments In the event this information is protected by the Federal Confidentiality of Alcohol and Drug AbusePatient Records regulations: The Federal rules restrict any use of the information to criminally investigate or prosecute any alcohol or drug abuse patient.[facility] Reason for Visit * Auth/Cert (Routine)SpecialtyDiagnoses / ProceduresReferred By ContactReferred To Contact Diagnoses Non-recurrent unilateral inguinal hernia without obstruction or gangrene Non-recurrent unilateral inguinal hernia without obstruction or gangrene [K40.90] Procedures RPR 1ST INGUN HRNA AGE 3 YRS/> REDUCIBLE HERNIORRHAPHY INGUINAL ELECTIVE ADULT REDUCIBLE [facility] Surgery [address] [place] [address] Phone: tel: Referral IDStatusReasonStart DateExpiration DateVisits RequestedVisits [id number] Encounter Details DateTypeDepartmentCare Team (Latest Contact Info)Qukouxavidt62/20/2025 11:20 AM ESTAnesthesia Event [facility] [address] [place] [address] [place] [address] [place], [place] [id number] Anesthesia Record Procedure NameResponsible AnesthesiologistAnesthesia Start TimeAnesthesia Stop TimeHERNIORRHAPHY INGUINAL ELECTIVE ADULT REDUCIBLE (Right: Groin)Pilar Dale MD01/01/25 65030103/03/24 8860YggxWezmFsostEfkefhn45/20/568642480016Bz StartI have re-evaluated the patient immediately prior to induction.1120An Start Jehl6196Da InductionI have re-evaluated the patient immediately prior to induction.1124An CKX9107Mmkkhuiqit Gtudz9777Uwyrnyfz/Procedure Ihone6766Fyooc infiltration by emcnrjp0929Jxire Lbtgudl1799Gokswvpam Loi6704Wcflmm7425IKK Nyckoip2176TKS Vfedhgvj9606wl stop bmlz0924Qwjoadk to RNI completed my handoff to the receiving nurse during which we: 1. Identified the patient 2. Identified the responsible provider 3. Reviewed the pertinent medical history 4. Discussed the surgical course 5. Reviewed intra-op anesthesia management and issues during anesthesia 6. Set expectations for post-procedure period 7. Allowed opportunity for questions and acknowledgement of understanding.1221An Stop* NameTotal dexamethasone injection4 mgfentaNYL fkemdammk749 mcglidocaine (PF) injection 2 %100 mgondansetron injection4 mgpropofol gdjgeycxy345 mgceFAZolin iv piggyback 2 g in D5W (iso-osmotic) 100 mL (ANCEF)2 gePHEDrine 5 mg/mL (AV)25 mgglycopyrrolate0.2 mgkeTORolac 15 mg/mL15 mglactated ringers iv infusion qoqhjocq746 mL * Agents Name ETO2 ETN2O Inspired N2O Set O2% Set Fresh Gas Flow Inspired Sevoflurane O2 Flow Rate Air Sevoflurane * Blood No blood administrations on file. XhesSijhxuuNvrpzceawKtvkwrjFmgxv29/20/24; 925; Incision; Other (Comment) (bladder)08/02/23925 by Elizabeth Velasco RNWound01/01/25; Surgical; Open Surg; Groin; Right01/01/25 0000 by Aislinn Parker RNPIV01/01/25; 1109; Right; Forearm; 20 Gauge; 01/01/25; 1351; Meets Criteria for Aofnonh62/20/25 1109 by Kay Eckert RN01/01/25 135[address] RNAirwayLaryngeal Mask Airway (LMA); 01/01/25; 1124 (created via procedure documentation); No; 01/01/25; 1215 01/01/25 1124 by Larissa Head APRN.CRNA01/01/25 1215 by Larissa Head APRN.CRNAdocumented in this encounter Social History Tobacco UseTypesPacks/DayYears [...] or more drinks on one occasion?Never12/19/2019PHQ-2AnswerDate RecordedPHQ2 Jnjjy800Area Deprivation IndexAnswerDate RecordedNational Score (1-100), lower number is lower qwpb892606/23/2022State Score (1-10), lower number is lower qkop3053Data from: https://www.neighborhoodatlas.medicine.[facility].edu/. Last address used for fahnorepfzk[address]06/23/2022Sex and Gender InformationValueDate RecordedSex Assigned at BhkoaZgaz94/06/2024 9:29 AM EDT Legal CbyKiep0203/23/2020 3:19 PM ESTGender WulwiideOpvs30/06/2024 9:29 AM EDT Sexual OrientationNot on filedocumented as of this encounter Last Filed Vital Signs Vital SignReadingTime TakenCommentsBlood Kricvjtm904/6701/01/2025 12:15 PM EST Jajnp927901/01/2025 12:15 PM ESTTemperature--Respiratory Jwbc064003/03/2024 12:15 PM ESTOxygen Bmngdakjzm36%01/01/2025 12:15 PM ESTInhaled Oxygen Concentration-- Weight--Height--Body Mass Index--documented in this encounter Functional Status * Are you deaf or do you have serious difficulty hearing?AnswerDate of OwhpokgabiWfqymdFi20/23/2022 3:26 PM Corry Hansen RN * Are you blind or do you have serious difficulty seeing, even when wearing glasses?AnswerDate of UlkfaesgjaHnizgaWu30/23/2022 3:26 PM Corry Hansen RN * Do you have serious difficulty walking or climbing stairs?AnswerDate of ZmxicgiynyBzpslvIem05/23/2022 3:26 PM Corry Hansen RN * Do you have difficulty dressing or bathing?AnswerDate of AssessmentAuthorNo 10/31/2018 3:35 PM Dora Brooke RN * Because of a physical, mental, or emotional condition, do you have difficulty doing errands alone such as visiting a doctor's office or shopping?AnswerDate of YvrmcrfqrwDymnprKpm81/23/2022 3:26 PM Corry Hansen RN documented as of this encounter Mental Status * Because of a physical, mental, or emotional condition, do you have serious difficulty concentrating, remembering, or making decisions?AnswerEntry Date RioangYd05/23/2022 3:26 PM Corry Hansen RN documented in this encounter Procedure Notes * Pilar Dale MD - 01/01/2025 2:40 PM EST POST ANESTHESIA EVALUATION NOTE : 1950 Procedure Summary Date: 01/01/25 Room / Location: AV OR02 / AV OR Anesthesia Start: 1120 Anesthesia Stop: 1221 Procedure: HERNIORRHAPHY INGUINAL ELECTIVE ADULT REDUCIBLE (Right: Groin) Diagnosis: Non-recurrent unilateral inguinal hernia without obstruction or gangrene (Non-recurrent unilateral inguinal hernia without obstruction or gangrene [K40.90]) Surgeons: Chris Garcia MD Responsible Provider: Pilar Dale MD Anesthesia Type: general ASA Status: 2 Anesthesia Type: general Last Vitals Vitals Value Taken Time BP 137/77 01/01/25 13:50 Temp 36.8 ??C (98.2 ??F) 01/01/25 12:20 Pulse 60 01/01/25 13:50 Resp 11 01/01/25 13:50 SpO2 93 % 01/01/25 13:50 Vitals shown include unfiled device data. Post Anesthesia Patient Status Patient Evaluation: PACU. PACU/ICU Patient Condition: stable. Anticipated Disposition: phase 2 then home. Neurological Status: aware and responsive. Pulmonary Status: breathing comfortably on room air Airway Control: returned to baseline unsupported. Cardiovascular Status: stable. Pain Management: clinically adequate Postoperative Hydration: acceptable. Intraoperative Events: no significant anesthesia events Post Operative Nausea/Vomiting Status: no significant post operative nausea or vomiting Recommendation: further care per PACU/ICU/floor team. Anesthesia Observations No Documentation SIGNATURE: Pilar Dale MD PATIENT NAME: Fahad Sotelo DATE: January 01, 2025 TIME: 2:40 PM CSN: [id number] * Larissa Head APRN.PLASTICS SUPERVISOR - 01/01/2025 11:33 AM ESTAssociated Order(s): Airway ANESTHESIOLOGY PROCEDURE NOTE Airway General Information Procedure Start Time/Medication Administration: 01/01/2025 11:24 AM Procedure End Time: 01/01/2025 11:24 AM Patient location during procedure: OR Staffing Anesthesiologist: Pilar Dale MD PLASTICS SUPERVISOR: Larissa Head APRN.PLASTICS SUPERVISOR Performed by: PLASTICS SUPERVISOR Indications and Patient Condition Indications for airway management: anesthesia Preoxygenated: yes anesthesia circuit Patient position: sniffing Method: asleep Difficult Mask: No Final Airway Details Final airway type: supraglottic airway Number of attempts at approach: 1 Final Supraglottic Airway: IGEL Size: 5Seal Adequate: yes Airway not difficult SIGNATURE: Larissa Head APRN.PLASTICS SUPERVISOR PATIENT NAME: Fahad Callejasaimee DATE: January 01, 2025 TIME: 11:33 AM CSN: [id number] * Pilar Dale MD - 01/01/2025 10:59 AM EST ANESTHESIOLOGY DAY OF SURGERY NOTE : 1950 Procedure Information Date/Time: 01/01/25 1050 Procedure: HERNIORRHAPHY INGUINAL ELECTIVE ADULT REDUCIBLE (Right: Groin) Location: AV OR02 / AV OR Surgeons: Chris Garcia MD Estimated body mass index is 31.58 kg/m?? as calculated from the following: Height as of 12/17/24: 175.3 cm (5' 9 ). Weight as of 12/17/24: 97 kg (213 lb 13.5 oz). Most recent hematocrit and potassium results: Hematocrit 48.0 07/05/2023 Potassium 4.1 07/05/2023 Relevant Problems ANESTHESIA (within normal limits) CARDIO (+) CAD (coronary artery disease) (Stent, dissection, CABG) (+) Essential hypertension Nephrology (+) Incomplete bladder emptying Other (+) Obesity, Class I, BMI 30-34.9 (+) Osteoarthritis of right knee (+) Primary osteoarthritis of right hip This patient denies hx of aspiration, gastroparesis, taking GLP-1s (or not hold > 7 days, or nothad CLD for 24 hours prior), nausea/emesis or GERD today. Global left ventricular systolic function is normal; visually estimated ejection fraction is 60 to 65%. Normal diastolic function. The right ventricle is normal in size and systolic function. No significant valvular abnormalities. Anterior free space; trivial effusion versus fat pad. I - PHYSICAL EVALUATION AIRWAY Patient intubated: No. Tracheostomy tube not present Mallampati: III. TM distance: >3 FB. Neck ROM: full ROM without neurological symptoms. Mouth openin FB. Short neck: no. Thick neck: yes Smith present: no DENTAL Dental findings: caps/crowns and bridge. Additional exam findings: yes. CARDIOVASCULAR Rhythm: regular Rate: normal PULMONARY Breath sounds clear to auscultation. ABDOMINAL Obese: obesity present. Other findings: Tingling in hands. Has sinus congestion . II - ANESTHESIA PLAN ASA Score: 2 Anesthetic Plan: general Airway type: supraglottic airway The patient is not a current smoker. NPO Status: adequate Monitoring Plan Monitoring plan: standard ASA. Post Procedure Analgesic Plan Postoperative analgesic plan: multimodal analgesia and per surgical service. Informed Consent Anesthetic risks, benefits, alternatives, personnel and consent discussed: yes. Patient / Responsible Alliance Party agrees to proceed: yes Patient / Surrogate agrees to blood products: Yes DNR status not reviewed with patient and/or family prior to surgery. Significant changes in the patient condition since the History and Physical, not otherwise documented in primary service progress note: no. Potential Anesthesia issues that may suggest increased risk of complications or contraindication toplanned procedure: none. Vitals Value Taken Time BP 153/108 01/01/25 10:47 Pulse 61 01/01/25 10:47 Resp 17 01/01/25 10:47 Temp 36.3 ??C (97.3 ??F) 01/01/25 10:47 SpO2 98 % 01/01/25 10:47 Facility-Administered Medications as of 01/01/2025 Medication Dose Route Frequency dextrose 10% iv bolus 12.5 g INTRAVENOUS PRN Or glucagon 0.5-1 mg injection 0.5-1 mg INTRAMUSCULAR PRN lidocaine (PF) 10 mg/mL (1 %) 1-2 mg injection (XYLOCAINE) 0.1-0.2 mL INTRADERMAL PRN lactated ringers iv infusion solution 5-30 mL/hr INTRAVENOUS CONTINUOUS NaCl 0.9% iv flush bag 20 mL INTRAVENOUS PRN ceFAZolin iv piggyback 2 g in D5W (iso-osmotic) 100 mL (ANCEF) 2 g INTRAVENOUS Pre-Op Once acetaminophen 1,000 mg tab(s) (TYLENOL) 1,000 mg ORAL Pre-Op Once Outpatient Medications as of 01/01/2025 Medication Sig clotrimazole (LOTRIMIN) 1 % cream Apply to affected area. plecanatide (TRULANCE) 3 mg tablet Take 1 tablet by mouth once daily. metoprolol tartrate, short acting, (LOPRESSOR) 50 [...] Take 40 mg by mouth once daily. nitroglycerin sublingual (NITROQUICK) 0.4 mg SL tablet Amoxicillin 500 mg tablet TAKE 4 TABLETS BY MOUTH 1 (ONE) HOUR BEFORE procedure then TAKE 2 TABLETSBY MOUTH 6 (SIX) hours after procedure acetaminophen (TYLENOL) 500 mg tablet Take 2 tablets by mouth every 6 hours as needed for pain. aspirin, enteric coated (ASPIRIN, ENTERIC COATED) 81 mg EC tablet Take 1 tablet by mouth twice daily. I have interviewed and examined the patient. I have reviewed the medical record and/or the pre-anesthesia evaluation, pertinent labs, and test results. This contains updated information obtained within 48 hours of Surgery/Procedure. SIGNATURE: Pilar Dale MD PATIENT NAME: Fahad Sotelo DATE: January 01, 2025 TIME: 10:59 AM CSN: [id number] documented in this encounter Plan of Treatment DateTypeDepartmentCare Team (Latest Contact Info)Decxkksbluf04/09/2025 1:15 PM ESTOffice Visit General Surgery [address] [place] [address] [place] [address] [place], [place] [id number] POST OP RT ING XYMHST1902/03/2025 2:30 PM ESTOffice Visit Urology [address] [place] [address] Dianne Roldan MD [address] [place], [place] [id number] Cysto per staff msgdocumented as of this encounter Procedures Procedure NamePriorityDate/TimeAssociated DiagnosisCommentsINTUBATIONRoutine 01/01/2025 11:24 AM EST documented in this encounter Results * Airway (01/01/2025 11:24 AM EST) Narrative Larissa Head APRN.PLASTICS SUPERVISOR - 01/01/2025 11:24 AM EST Larissa Head APRN.PLASTICS SUPERVISOR 01/01/2025 11:43 AM Airway General Information Procedure Start Time/Medication Administration: 01/01/2025 11:24 AM Procedure End Time: 01/01/2025 11:24 AM Patient location during procedure: OR Staffing Anesthesiologist: Pilar Dale MD PLASTICS SUPERVISOR: Larissa Head APRN.PLASTICS SUPERVISOR Performed by: NATHANIEL Indications and Patient Condition Indications for airway management: anesthesia Preoxygenated: yes ? anesthesia circuit Patient position: sniffing Method: asleep Difficult Mask: No Final Airway Details Final airway type: supraglottic airway Number of attempts at approach: 1 Final Supraglottic Airway: IGEL Size: 5Seal Adequate: yes Airway not difficult Authorizing ProviderResult TypeResult StatusMonjose de jesus Dale MDANESTHESIA ORDERABLESEdited Result - Final documented in this encounter Visit Diagnoses Not on filedocumented in this encounter Administered Medications Medication OrderMAR ActionAction DateDoseRateSite ceFAZolin iv piggyback 2 g in D5W (iso-osmotic) 100 mL (ANCEF) 2 g, INTRAVENOUS, at 200 mL/hr, Administer over 30 Minutes, PRE-OP ONCE, 1 dose, On Sue 01/01/25 [id number], General Cases PRE-OP ANTIBIOTIC ADMINISTER ONLY IN SURGICAL AREA ??? DO NOT ADMINSTER ON THE FLOOR Refrigerate, Antimicrobial indication: Prophylaxis, Preprocedure Given01/01/2025 11:24 AM EST2 g dexAMETHasone sodium phosphate injection (DECADRON) INTRAVENOUS, NEEDED, Starting on Sue 01/01/25 at 1130, Until Sue 01/01/25 at 1221, Anesthesia Intraprocedure Given01/01/2025 11:30 AM EST4 mg ePHEDrine sulfate injection (EMERPHED) INTRAVENOUS, NEEDED, Starting on Sue 01/01/25 at 1131, Until Sue 01/01/25 at 1221, Anesthesia Intraprocedure Given01/01/2025 11:31 AM EST25 mg fentaNYL 50 mcg/mL injection (SUBLIMAZE) INTRAVENOUS, NEEDED, Starting on Sue 01/01/25 at 1123, Until Sue 01/01/25 at 1221, Anesthesia Intraprocedure Given01/01/2025 11:41 AM EST25 peiWpmxe93/20/2025 11:34 AM EST25 mcgGiven 01/01/2025 11:23 AM EST50 mcg glycopyrrolate injection (ROBINUL) INTRAVENOUS, NEEDED, Starting on Sue 01/01/25 at 1136, Until Sue 01/01/25 at 1221, Anesthesia Intraprocedure Given01/01/2025 11:36 AM EST0.2 mg keTORolac injection (Toradol) INTRAVENOUS, NEEDED, Starting on Sue 01/01/25 at 1202, Until Sue 01/01/25 at 1221, Anesthesia Intraprocedure Given01/01/2025 12:02 PM EST15 mg lactated ringers iv infusion solution 5-30 mL/hr, INTRAVENOUS, CONTINUOUS, Starting on Sue 01/01/25 at 1030, Until Sue 01/01/25 at 1351, Preprocedure Jctjhvruc90/20/2025 11:21 AM ESTContinued by Dpeptmemcc30/20/2025 11:20 AM EST30 mL/hrNew Bag/Syringe/Imyizw1101/01/2025 11:01 AM EST30 mL/hr30 mL/hr lidocaine HCl (PF) 20 mg/mL (2 %) injection INTRAVENOUS, NEEDED, Starting on Sue 01/01/25 at 1123, Until Sue 01/01/25 at 1221, Anesthesia Intraprocedure Given01/01/2025 11:23 AM MUS406 mg ondansetron (PF) injection (ZOFRAN) INTRAVENOUS, NEEDED, Starting on Sue 01/01/25 at 1130, Until Sue 01/01/25 at 1221, Anesthesia Intraprocedure Given01/01/2025 11:30 AM EST4 mg propofol injection (DIPRIVAN) INTRAVENOUS, NEEDED, Starting on Sue 01/01/25 at 1123, Until Sue 01/01/25 at 1221, Anesthesia Intraprocedure Given01/01/2025 11:51 AM EST20 suOvjtu8201/01/2025 11:23 AM BSS165 mgdocumented in this encounter Care Teams Team MemberRelationshipSpecialtyStart DateEnd Date Stanton Velasco II, MD [address] [place] [address] PCP - GeneralInternal Medicine04/01/21 Hossein Tran DO [address] [place] [address] ReferringOphthalmology08/28/16 David Carrillo MD [address] [place] [address] ReferringUrology10/06/16documented as of this encounter
--- OUTSIDE RECORDS SUMMARY | 2025-01-15 10:44 | XMS_ITS | Patient Health Record ---
Author Organization [facility] [place] Address [address] [place] [address] Care Team Providers Care Painter Barrel Name Role Phone Uli Mcdonald MD Primary Care Provider Unavail able Reason For Referral No Information Plan Of Treatment No Information Insurance Providers Payer Name Payer Address Payer Phone Subscriber Number Group Number Insured Name Patient Relationship to Insured Coverage Start Date Coverage End Date [place] [address] [place] [address] [id number] Joel Oakes - patient is the [id number] 2015[facility] [address] [place], [place] [phone], RudySelf - patient is the [id number] 2015
--- OUTSIDE RECORDS SUMMARY | 2025-01-15 10:44 | XMS_ITS | Clinical Summary ---
Author Organization [facility] Address [address] [place] [address] Care Team Providers Care Hydraulic Repairer Name Role Phone Stanton Velasco MD Primary Care Provider [phone] Allergies Active AllergyReactionsCriticalityNoted DateCommentsBee PollenOther,Swelling 01/30/2014ee Venom Protein (Honey Bee)Unknown,Uixbehbs99/18/2019 Other Reaction(s): Unknown YjkerJzrua34/01/2022 Sneezing. SsmkfkeitsUyrqoiz25/09/2014 Other Reaction(s): Constipation Oxybutynin NgfdxaxlSvvtxih84/09/4062TazergasUhkxyqoZsj04/17/2015 Other Reaction(s): Xerostomia Medications MedicationSigDispense QuantityRefillsLast FilledStart DateEnd DateStatus rosuvastatin (Crestor) 40 mg tablet Crestor 40 mg tabletActive isosorbide mononitrate ER (Imdur) 60 mg 24 hr tablet isosorbide mononitrate ER 60 mg tablet,extended release 24 hrActive metoprolol tartrate (Lopressor) 50 mg tablet every 12 (twelve) hours.Active aspirin 81 mg chewable tablet in the morning.Active cholecalciferol (Vitamin D-3) 25 MCG (1000 units) tablet Take 1,000 Units by mouth in the morning.Active nitroglycerin (Nitrostat) 0.[address] 0.4 mg under the tongue every 5 (five) minutes if needed.Active ondansetron ODT (Zofran-ODT) 4 mg disintegrating tablet Take 4 mg by mouth every 4 (four) hours if needed.5Active plecanatide (Trulance) tablet tablet Take 3 mg by mouth in the morning.3Active tenapanor (Ibsrela) 50 mg tablet Take 50 mg by mouth twice a day.Active lactulose 10 gram/15 mL solution Take 15 g by mouth in the morning.10/31/2024tive lisinopril 10 mg tablet Indications:Benign hypertensive heart disease without congestive heart failure Take 1 tablet (10 mg) by mouth once daily as directed. 90 tablet 5Active Active Problems ProblemNoted DateDiagnosed DateChronic obstructive pulmonary zznollt2304/02/2024 Pulmonary granuloma of eouyyrxldiqpko89/24/2025lteration in self-care ability enign prostatic hyperplasia with urinary obstruction hronic idiopathic cazjjgsxideg14hronic ischemic heart Overview (06/11/2023): Aug 21, 2003 Entered By: CINDY OQUENDO Comment: DRUG-ELUTING STENTS X'S 2009 EnteredBy: CINDY OQUENDO Comment: CABG 2009 Entered By: CINDY OQUENDO Comment: HEART CATH 12/08/09 EdemaHistory of coronary artery nursing home (current) use of ewwvaeuduybdmz12Multiple nodules of lung Overview (06/11/2023): Sep 24, 2012 Entered By: CINDY OQUENDO Comment: chest CT 09/2012: repeat 12 months Polyp of colon Overview (06/11/2023): Mar 16, 2014 Entered By: DEVAUGHN BUCHANAN Comment: repeat colonoscopy JanJun 2015 Entered By: GAVIN ANN Comment: rpt c scope 1 yr; due 07/04/2016Jun 2016 Entered By: DIANELYS DON Comment: rpt c scope 1 yr; due 07/12/2017Jul 2018 Entered By: BAKARI ANDERSON Comment: rpt c scope 3 yrs; due 08/23/2021ep 2017 Entered By: GAVIN ANN Comment: rpt c-scope 1 year. Due Sep 2018 Qnjzoboazz75bnormal gaitrthritis of both kneesontracture of right hip joint Disturbance of skin lymmbvawj53iverticulosis of colon yslipidemiaHistory of right knee joint agxxzoadkfa77Impingement syndrome of left qoopdihi53/10/2023 06/11/2023Mild cognitive sguocqeb47aynaud's syndrome without vhscjfix82Seasonal allergic eiexznlk49Stage 2 chronic kidney jcxtghe26topic /15/2023 06/11/2023ftercare following joint replacement ltwgufq27/23/2022Complete rotator cuff tear or rupture of right shoulder, not specified as traumatic 05/04/2021Hyperlipidemia, qnvfzkehivp53/23/2022Muscle wasting and atrophy, not elsewhere classified, multiple sites05/04/2021ther chronic pain05/04/2021 Bladder disorder, mgiugtkfrry33/23/2022Unsteadiness on feet05/04/2021Vitamin D deficiency, osuazstyfrv87/23/2022Myelopathy due to cervical spondylosis 05/04/2021re-op ubitjdfutp81/01/2022otator cuff tear arthropathy of right tjruhaob10/01/2022History of lumbar wrsjca901Loose right total knee gkxrzgljbmie75/06/2021rimary osteoarthritis of right hip06/17/2020hronic knee pain after total replacement of right knee joint11/14/2019Osteoarthritis of right knee10/30/2018Obesity, Class I, BMI 30-34.9010/28/2018 Overview (05/24/2022): Last Assessment & Plan: Assessment: Body mass index is 33.77 kg/m??. Urge xftcoyxoirlp02/09/2018 Overview (05/24/2022): Added automatically from request for surgery [id number] Last Assessment & Plan: Assessment: Patient states that he self caths twice daily. Cervical stenosis of spine05/29/2017Preop heccyjt0105/04/2017 Overview (05/24/2022): Added automatically from request for surgery [id number] Cervical spondylosis with vblomqtxmm36/23/2018 Overview (05/24/2022): Added automatically from request for surgery [id number] Brachial rmegbzxreq45/29/2018Shoulder thmeakon87/29/2018Coronary atherosclerosis 11/20/20117615Rzfqpor97/08/2012Essential gesjhbsajwvd45/08/2012 Overview (05/24/2022): Last Assessment & Plan: Assessment: Stable, controlled with RX medication Mixed ayscbmzikgjplz03/08/2012CAD (coronary artery disease)02/13/2004 Overview (05/24/2022): NM in 1997. 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 S/T CABG 2004. Follows with telephone service representative Encounters DateTypeDepartmentCare YziqQagaemtrvqw63/14/2025 3:40 PM EDTOffice Visit [facility] [address] [place] [address] Caitlyn Alcaraz CNP Coronary artery disease involving [place] coronary artery of [place] heart without angina pectoris (Primary Dx); Benign hypertensive heart disease without congestive heart failure; Hx of CABG; Mixed hyperlipidemia; Nonrheumatic mitral valve regurgitation; Other specified ykcoxoimjce67/07/2025Results Follow-Up [facility] [address] [place] [address] Caitlyn Alcaraz CNP Lexiscan Stress Myocardial Perfusion Hiwidsd7511/13/2024Orders Only [address] [place] [address] ProviderJessi MD 10/30/2024Orders Only [facility] [address] [place] [address] Michelle Alvarado MA Chest pain, unspecified type (Primary Dx); Pre-procedural cardiovascular afrzsejintg26/10/2025 11:20 AM EDTOffice Visit [facility] [address] [place] [address] Caitlyn Alcaraz CNP Other chest pain (Primary Dx); Coronary artery disease involving [place] coronary artery of [place] heart without angina pectoris; Hx of CABG; Benign hypertensive heart disease without congestive heart failure; Mixed hyperlipidemiafrom Last 3 Months Family History Medical HistoryRelationNameCommentsCoronary artery diseaseOtherHeart attackOther StrokeOtherRelationNameStatusCommentsFatherDeceasedMotherDeceasedOther Social History Tobacco UseTypesPacks/DayYears UsedDateSmoking Tobacco: FormerCigarettes Smokeless Tobacco: Never Tobacco Cessation:Counseling Given: Not Answered Alcohol UseStandard Drinks/WeekCommentsYes0 (1 standard drink = 0.6 oz pure alcohol)occasionalUT Safety & EnvironmentAnswerDate RecordedFear of Current or Ex-PartnerNot on file04/05/2023Emotionally AbusedNot on file04/05/2023hysically AbusedNot on file04/05/2023Sexually AbusedNot on file04/05/2023hysically or Sexually AbusedNot on file04/05/2023Sex and Gender InformationValueDate Recorded Sex Assigned at OoufwLair56/05/2025 3:45 PM EDTLegal FsuQikd8408/10/2021 10:12 PM EDTGender FwgyqjuzDglu83/05/2025 3:45 PM EDTSexual OrientationHeterosexual or Ndzdpscb94/05/2025 3:45 PM EDT Last Filed Vital Signs Vital SignReadingTime TakenCommentsBlood Uuezkppm10/5811/25/2024 3:47 PM EDT Lljre607511/25/2024 3:47 PM EDTTemperature--Respiratory Rate--Oxygen Qoawktystt58% 11/25/2024 3:47 PM EDTInhaled Oxygen Concentration--Bsklbx42 kg (216 lb) 11/25/2024 3:47 PM JIOLvxhfl357.8 cm (5' 10 )11/25/2024 3:47 PM EDTBody Mass Index30.9911/25/2024 3:47 PM EDT Plan of Treatment DateTypeDepartmentCare Team (Latest Contact Info)Qbenazmxcwj30/14/2026 1:00 PM ESTOffice Visit [facility] [address] [place] [address] Caitlyn Alcaraz, INSERT MOLDING OPERATOR [address] [place] [address] Health MaintenanceDue DateLast DoneCommentsMedicare Annual Wellness (AWV) 1948Depression Buwerpfpd20/24/1961Fall Risk Ufqmlbdvh50/24/2014COVID-19 Vaccine ( season)5011/12/2023, 12/12/2022, 11/17/2021, Additional history existsAdult Jkjrnvy16/28/, 07/04/2018, 09/02/2004Zoster IangiskbQvhpncmxa84/05/2021, 06/23/2020, 07/04/2018, Additional history existsPneumococcal Vaccine: 50+ VzmrpPcujyynfb99/28/2022, 11/12/2017, 06/25/2017, Additional history existsInfluenza XshswttYfgwgsfsi27/03/2025, 11/12/2023, 11/09/2022, Additional history existsHIB VaccinesAged OutNo longer eligible based on patient's age to complete this topicHPV VaccinesAged OutNo longer eligible based on patient's age to complete this topicIPV VaccinesAged OutNo longer eligible based on patient's age to complete this topicMeningococcal B VaccineAged OutNo longer eligible based on patient's age to complete this topicMeningococcal VaccineAged OutNo longer eligible based on patient's age to complete this topicRotavirus VaccinesAged OutNo longer eligible based on patient's age to complete this topic Procedures Procedure NamePriorityDate/TimeAssociated DiagnosisCommentsLEXISCAN STRESS MYOCARDIAL PERFUSION GSENYIGRdzqwog69/29/2025 3:48 PM EDT ECG 12 LEAD UNIT LOERGHPOWDfxerzm38/10/2025 11:09 AM EDT Other chest pain from Last 3 Months Results * Lexiscan Stress Myocardial Perfusion Imaging (11/10/2024 3:48 PM EDT) Anatomical RegionLateralityModalityOther Narrative Authorizing ProviderResult TypeResult StatusHistorical Provider MDCV STRESS PROCEDURESFinal Result * ECG 12 lead unit performed (10/22/2024 11:09 AM EDT)Specimen (Source) Anatomical Location / LateralityCollection Method / VolumeCollection Time Received Time Narrative Authorizing ProviderResult TypeResult StatusMelra Alcaraz [facility] ORDERABLES Final Result from Last 3 Months Insurance Care Teams Team MemberRelationshipSpecialtyStart DateEnd Stanton Velasco MD [address] [facility] [address] [place] [address] [facility]05/23/22
--- OUTSIDE RECORDS SUMMARY | 2025-01-15 10:45 | XMS_ITS | Encounter Summary ---
Author Organization [facility] Healthcare Address [address] [place] [address] Care Team Providers Care Supply Officer Name Role Phone Stanton Velasco MD Primary Care Provider [phone] Stanton Velasco MD Unavailable [phone] Alvina Sanchez LPN Unavailable Encounter Details DateTypeDepartmentCare Team (Latest Contact Info)Tnraekutvtp80/24/2025Patient Outreach [facility] [address] [place] [address] Alvina Sanchez LPN [address] [place] [address] Social History Tobacco UseTypesPacks/DayYears UsedDateSmoking Tobacco: NeverSmokeless Tobacco: NeverAlcohol UseStandard Drinks/WeekCommentsNever0 (1 standard drink = 0.6 oz pure alcohol)B1300 Health LiteracyAnswerDate RecordedHow often do you need to have someone help you when you read instructions, pamphlets, or other written material from your doctor or pharmacy?Never10/25/2023Humiliation, Afraid, Rape, and Kick questionnaireAnswerDate RecordedWithin the last year, have you been afraid of your partner or ex-partner?No10/20/2022Within the last year, have you been humiliated or emotionally abused in other ways by your partner or ex-partner?No10/20/2022Within the last year, have you been kicked, hit, slapped, or otherwise physically hurt by your partner or ex-partner?No10/20/2022Within the last year, have you been raped or forced to have any kind of sexual activity by your partner or ex-partner?No10/20/2022Social Connection and Isolation Panel AnswerDate RecordedIn a typical week, how many times do you talk on the phone with family, friends, or neighbors?Once a week10/20/2022How often do you get together with friends or relatives?Once a week10/20/2022How often do you attend judaism or religion services?1 to 4 times per year10/20/2022o you belong to any clubs or organizations such as judaism groups, unions, fraternal or athletic josselin ups, or school groups?No10/20/2022How often do you attend meetings of the clubs or organizations you belong to?Never10/20/2022re you , , , , never , or living with a partner?Mrdegcg8910/20/2022 AUDIT-CAnswerDate RecordedQ1: How often do you have a drink containing alcohol? Monthly or less10/20/2022Q2: How many drinks containing alcohol do you have on a typical day when you are drinking?1 or Q3: How often do you have six or more drinks on one occasion?Never10/20/2022Overall Financial Resource Strain (CARDIA)AnswerDate RecordedHow hard is it for you to pay for the very basics like food, housing, medical care, and heating?Not hard at all10/20/2022HQ-2 AnswerDate RecordedPatient Health Questionnaire-2 Remfn699Fincentral valley medical center [facility] - Occupational Stress QuestionnaireAnswerDate RecordedDo you feel stress - tense, restless, nervous, or anxious, or unable to sleep at night because yourmind is troubled all the time - these days?Not at all 10/20/2022Exercise Vital SignAnswerDate RecordedOn average, how many days per week do you engage in moderate to strenuous exercise (like a brisk walk)?3 days 10/20/2022On average, how many minutes do you engage in exercise at this level? 10 min10/20/2022Hunger Vital SignAnswerDate RecordedWithin the past 12 months, you worried that your food would run out before you got the money to buymore. Never true10/20/2022Within the past 12 months, the food you bought just didn't last and you didn't have money to get more.Never true10/20/2022RAPARE - TransportationAnswerDate RecordedIn the past 12 months, has lack of transportation kept you from medical appointments or from getting medications?No 10/20/2022In the past 12 months, has lack of transportation kept you from meetings, work, or from getting things needed for daily living?No10/20/2022 Housing Stability Vital SignAnswerDate RecordedIn the last 12 months, was there a time when you were not able to pay the mortgage or rent on time?No10/20/2022In the last 12 months, how many places have you lived?In the last 12 months, was there a time when you did not have a steady place to sleep or slept in ashelter (including now)?No10/20/2022Sex and Gender InformationValueDate RecordedSex Assigned at BirthNot on fileLegal QqqJxex8504/26/2022 6:56 PM EDT Gender IdentityNot on fileSexual OrientationNot on filedocumented as of this encounter Progress Notes * Alvina Sanchez LPN - 01/05/2025 4:13 PM EST Spoke with pt for outreach. Pt states he is doing ok. He shares he is still a little sore all over and just tired. Pt had Hernia surgery 01/01. He shares he has some constipation as well and is taking medication for this. He states not much else going on with him. He has not felt like getting out much d/t the weather and just being sore from surgery. Pt states he plans on getting out when feelingbetter. Has follow up appt with surgeon 01/20. Denies need for an appt with PCP at this time. Pt talks a bit and I actively listen. Denies any needs at this time. Encouraged to call if any arise. documented in this encounter Plan of Treatment DateTypeDepartmentCare Team (Latest Contact Info)Jeexjagulax71/05/2025 9:00 AM ESTOffice Visit [facility] [place] [facility] [address] [facility] [address] [place] [address] Stanton Velasco MD [address] [facility] [address] [place] [address] documented as of this encounter Visit Diagnoses Diagnosis Chronic obstructive pulmonary disease, unspecified COPD type (HCC)- Primary Benign essential hypertension Essential hypertension, benign documented in this encounter Additional Health Concerns AssessmentNoted TimePHQ-9 Depression Total Score: 9:00 AM EDT documented as of this encounter Care Teams Team MemberRelationshipSpecialtyStart DateEnd Date Stanton Velasco MD [address] [facility] [address] [place] [address] PCP - GeneralInternal Medicine08/18/22 Stanton Velasco MD [address] [facility] [address] [place] [address] PCP - Medical Lindsey MT02/12/2511 Alvina Sanchez LPN [address] [place] [address] 05/06/24documented as of this encounter
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
--- OUTSIDE RECORDS SUMMARY | 2025-01-15 10:45 | XMS_ITS | Encounter Summary ---
Author Organization [facility] Address [address] [place] [address] Care Team Providers Care Disc Inspector Name Role Phone Hossein Tran DO Unavailable [phone] David Carrillo MD Unavailable [phone] Rod FATIMA MD, Stanton Payne Primary Care Provider [phone] Source Comments In the event this information is protected by the Federal Confidentiality of Alcohol and Drug AbusePatient Records regulations: The Federal rules restrict any use of the information to criminally investigate or prosecute any alcohol or drug abuse patient.[facility] Reason for Visit * ReasonCommentsCare Coordinator - Other Encounter Details DateTypeDepartmentCare Team (Latest Contact Info)Xrgictwensd84/28/2025Telephone Urology [address] [id number] Ana Meza, LEATHA Line Operator - Other Social History Tobacco UseTypesPacks/DayYears UsedDateSmoking Tobacco: FormerCigarettes1.310 [...] or more drinks on one occasion?Never12/19/2019PHQ-2AnswerDate RecordedPHQ2 Score Area Deprivation IndexAnswerDate RecordedNational Score (1-100), lower number is lower hfvf879206/23/2022State Score (1-10), lower number is lower dtlf1943Data from: https://www.neighborhoodatlas.[facility].edu/. Last address used for v[address]/23/[birth year][place]Sex and Gender Information ValueDate RecordedSex Assigned at VjawqCsmo23/06/2024 9:29 AM EDTLegal SexMale 03/23/2020 3:19 PM ESTGender IyydadozTwxm30/06/2024 9:29 AM EDTSexual OrientationNot on filedocumented as of this encounter Functional Status * Are you deaf or do you have serious difficulty hearing?AnswerDate of KxugfgybagVxumszOz95/23/2022 3:26 PM Corry Hansen RN * Are you blind or do you have serious difficulty seeing, even when wearing glasses?AnswerDate of MwuiqkvdcgVblttvUe35/23/2022 3:26 PM Corry Hansen RN * Do you have serious difficulty walking or climbing stairs?AnswerDate of AntshopmlfYmwxmtZab91/23/2022 3:26 PM Corry Hansen RN * Do you have difficulty dressing or bathing?AnswerDate of AssessmentAuthorNo 10/31/2018 3:35 PM Dora Brooke RN * Because of a physical, mental, or emotional condition, do you have difficulty doing errands alone such as visiting a doctor's office or shopping?AnswerDate of LobiltxvorHzuwlgRdv10/23/2022 3:26 PM Corry Hansen RN documented as of this encounter Mental Status * Because of a physical, mental, or emotional condition, do you have serious difficulty concentrating, remembering, or making decisions?AnswerEntry Date VzbitgRb04/23/2022 3:26 PM Corry Hansen RN documented in this encounter Miscellaneous Notes * Telephone Encounter - Ana Meza RN - 01/09/2025 1:51 PM EST Returned pt call, he stated he is having difficulty with cathing. Pt stated he just had hernia surgery and thinks that might be why, but stated he was having issues prior. Pt stated he is eventually able to cath and does urinate spontaneously but doesn't feel like he's emptying all the way. Recommended pt go to the ER if he can't empty bladder at all, messaged Dr. Yuli CAMARGO for recommendationgoing forward. Ana Meza RN documented in this encounter Plan of Treatment DateTypeDepartmentCare Team (Latest Contact Info)Weqhtqtaovd72/09/2025 1:15 PM ESTOffice Visit General Surgery [address] [place], [place] [phone] [place] [address] [place] [address] POST OP RT ING EUCJRT2402/03/2025 2:30 PM ESTOffice Visit Urology [address] [place] [address] Dianne Roldan MD [address] [place], [place] [phone] Cysto per staff msgdocumented as of this encounter Visit Diagnoses Not on filedocumented in this encounter Care Teams Team MemberRelationshipSpecialtyStart DateEnd Date Stanton Velasco II, MD [address] [facility] [address] [place] [address] PCP - GeneralInternal Medicine04/01/21 Hossein Tran DO [address] [place] [phone] ReferringOphthalmology08/28/16 David Carrillo MD [address] [place] [phone] ReferringUrology10/06/16documented as of this encounter
--- OUTSIDE RECORDS SUMMARY | 2025-01-15 10:45 | XMS_ITS | Encounter Summary ---
Author Organization [facility] Address [address] [place] [address] Care Team Providers Care Watch Dial Maker Name Role Phone Hossein Tran DO Unavailable [phone] David Carrillo MD Unavailable [phone] Rod FATIMA MD, Stanton Payne Primary Care Provider [phone] Source Comments In the event this information is protected by the Federal Confidentiality of Alcohol and Drug AbusePatient Records regulations: The Federal rules restrict any use of the information to criminally investigate or prosecute any alcohol or drug abuse patient.[facility] Encounter Details DateTypeDepartmentCare Team (Latest Contact Info)Tgosezcaxwn56/20/2025Travel Social History Tobacco UseTypesPacks/DayYears UsedDateSmoking Tobacco: FormerCigarettes1.310 [...] RecordedNational Score (1-100), lower number is lower updu225506/23/2022State Score (1-10), lower number is lower uolw0813Data from: https://www.neighborhoodatlas.medicine.[facility]/. Last address used for w[address]/[birth year][address]Sex and Gender Information ValueDate RecordedSex Assigned at FnnxuBgow43/06/2024 9:29 AM EDTLegal SexMale 03/23/2020 3:19 PM ESTGender ToeidnbkEpmx32/06/2024 9:29 AM EDTSexual OrientationNot on filedocumented as of this encounter Functional Status * Are you deaf or do you have serious difficulty hearing?AnswerDate of BiilweshbxGomrqgCx28/23/2022 3:26 PM Corry Hansen RN * Are you blind or do you have serious difficulty seeing, even when wearing glasses?AnswerDate of LyzdryhjwrDlvslgTl38/23/2022 3:26 PM Corry Hansen RN * Do you have serious difficulty walking or climbing stairs?AnswerDate of MmrqffkmdqIftqxaCbd00/23/2022 3:26 PM Corry Hansen RN * Do you have difficulty dressing or bathing?AnswerDate of AssessmentAuthorNo 10/31/2018 3:35 PM Dora Brooke RN * Because of a physical, mental, or emotional condition, do you have difficulty doing errands alone such as visiting a doctor's office or shopping?AnswerDate of IotchghcvpNldjvuBjo78/23/2022 3:26 PM Corry Hansen RN documented as of this encounter Mental Status * Because of a physical, mental, or emotional condition, do you have serious difficulty concentrating, remembering, or making decisions?AnswerEntry Date YjqyvyOk90/23/2022 3:26 PM Corry Hansen RN documented in this encounter Plan of Treatment DateTypeDepartmentCare Team (Latest Contact Info)Joeaqnckfkj61/09/2025 1:15 PM ESTOffice Visit General Surgery [address] [place], [place] [phone] [place] [address] [place], [place] [phone] POST OP RT ING NOCGNA6902/03/2025 2:30 PM ESTOffice Visit Urology [address] [place] [address] Dianne Roldan MD [address] [place] [address] Cysto per staff msgdocumented as of this encounter Visit Diagnoses Not on filedocumented in this encounter Care Teams Team MemberRelationshipSpecialtyStart DateEnd Date Stanton Velasco II, MD [address] [facility] [address] [place] [address] PCP - GeneralInternal Medicine04/01/21 Hossein Tran DO [address] [place] [address] ReferringOphthalmology08/28/16 David Carrillo MD [address] [place] [phone] ReferringUrology10/06/16documented as of this encounter
--- OUTSIDE RECORDS SUMMARY | 2025-01-15 10:45 | XMS_ITS | Encounter Summary ---
Author Organization [facility] Address [address] [place] [address] Care Team Providers Care Software Developer Manager Name Role Phone Stanton Velasco MD Primary Care Provider [phone] Stanton Velasco MD Unavailable [phone] Alvina Sanchez LPN Unavailable Encounter Details DateTypeDepartmentCare Team (Latest Contact Info)Mjvtpcpdcwz33/03/2025Telephone [facility] [address] [place] [address] [place] [phone] Stanton Velasco MD [address] [facility] [address] [place] [address] Social History Tobacco UseTypesPacks/DayYears UsedDateSmoking [...] relatives?Once a week10/20/2022How often do you attend confucianist or christian services?1 to 4 times per year10/20/2022o you belong to any clubs or organizations such as confucianist groups, unions, fraternal or athletic josselin ups, or school groups?No10/20/2022How often do you attend meetings of the clubs or organizations you belong to?Never10/20/2022re you , , , , never , or living with a partner?Sftguyy6410/20/2022 AUDIT-CAnswerDate RecordedQ1: How often do you have [...] hard at all10/20/2022HQ-2 AnswerDate RecordedPatient Health Questionnaire-2 Rnomx285Finmoab regional hospital [place] of Occupational Health - Occupational Stress QuestionnaireAnswerDate [...] steady place to sleep or slept in [place] (including now)?No10/20/2022Sex and Gender InformationValueDate RecordedSex Assigned at BirthNot on fileLegal WgkWpna3304/26/2022 6:56 PM EDT Gender IdentityNot on fileSexual OrientationNot on filedocumented as of this encounter Miscellaneous Notes * Telephone Encounter - Emelyn Pierce MA - 01/14/2025 1:19 PM EST Pt notified and sent order to [facility] for pt * Telephone Encounter - Clare Liao - 01/14/2025 11:52 AM EST Patient slipped and fell a few weeks ago and hurt his back. He didn't go to the er or anything but is still complaining of back pain. He scheduled an appt but wondered if he could get an xray order before the appoitment. If so he would like it to go [facility]. documented in this encounter Plan of Treatment DateTypeDepartmentCare Team (Latest Contact Info)Bgozgeqvvdz74/05/2025 9:00 AM ESTOffice Visit [facility] [place] [facility] Marco A [address] [facility] [address] [place] [phone] Stanton Velasco MD [address] [facility] [address] [place] [address] NameTypePriorityAssociated DiagnosesOrder ScheduleXR lumbar spine 2 or 3 views ImagingRoutine Fall, initial encounter Low back pain, unspecified back pain laterality, unspecified chronicity, unspecified whether sciatica present Expected: 01/14/2025, Expires: 01/14/2026documented as of this encounter Visit Diagnoses Diagnosis Fall, initial encounter Low back pain, unspecified back pain laterality, unspecified chronicity, unspecified whether sciatica present documented in this encounter Additional Health Concerns AssessmentNoted TimePHQ-9 Depression Total Score: 9:00 AM EDT documented as of this encounter Care Teams Team MemberRelationshipSpecialtyStart DateEnd Date Stanton Velasco MD [address] [facility] [address] [place] [address] PCP - GeneralInternal Medicine08/18/22 Stanton Velasco MD [address] [facility] [address] [place] [address] PCP - Medical [place]02/12/2511 Alvina Sanchez LPN [address] [facility] [address] [place] [address] 05/06/24documented as of this encounter
--- OUTSIDE RECORDS SUMMARY | 2025-01-15 10:47 | XMS_ITS | CCD ---
Author Organization [facility] Care Team Providers Care Signal Integrity Engineer Name Role Phone BOZENA DOMINGO Admitting Unavailable BOZENA DOMINGO Attending Unavailable ALONZO CENTENO Referring Unavailable ALONZO CENTENO Primary Care Unavailable Hossein rTan Unavailable David Carrillo Unavailable Stanton Velasco II Primary Care Provider KUSHAL Velasco Attending Provider Hossein Tran Unavailable David Carrillo Unavailable Stanton Velasco II Primary Care Provider Hossein Tran Unavailable David Carrillo Unavailable Stanton Velasco II Primary Care Provider DR TRACIE TELLO Attending Unavailable ROSALINDA Heart, DR HODGES Admitting Unavailable ROD, DR RAMIREZ Primary Care Unavailable PITA .NICKIE Consulting UnavailALEXANDRE [...] Admitting Unavailable ROD, DR RAMIREZ Attending Unavailable VELASCO, DR RAMIREZ Consulting Unavailable ROD, DR RAMIREZ Primary Care Unavailable ZIEBER, DR GERSON Rajan Consulting Unavailable ELTAHAWY, DR CUNNINGHAM Attending Unavailable ELTAHAWY, DR CUNNINGHAM Consulting Unavailable ELTAHAWCelia, DR CUNNINGHAM Admitting Unavailable ROD, DR RAMIREZ Primary Care Unavailable Watson Centeno Primary Care Provider Unava ilable Marc ARAYA Hosseinmariah Durham Unavailable Rod FATIMA MD, Daniel B Primary Care Provider David Carrillo MD Unavailable Rod FATIMA MD, Daniel B Primary Care Provider Watson Centeno Primary Care Provider Unava ilable Stanton Velasco MD Unavailable [phone] Stanton Velasco MD Primary Care Provider [phone] LOUIE SALOMON Attending Unavailable STANTON VELASCO II Primary Care Unavailable STANTON VELASCO II Primary Care Unavailable LOUIE SALOMON Attending Unavailable STANTON VELASCO II Primary Care Unavailable LOUIE SALOMON Attending Unavailable LOUIE SALOMON Admitting Unavailable Emelyn Hall RN Unavailable STANTON VELASCO Primary Care Physician Stanton Velasco MD Unavailable Sanchez GROUNDSKEEPER SUPERVISOR, Avlina Unavailable Unavailable Hema Solorio Attending Unavailable MoAzucena linod AUna Attending Unavailable MoArmaan linoamad AUna Attending Unavailable MoArmaan linoamad AUna Admitting Unavailable MoHema lino AUna Attending Unavailable Sanchez GROUNDSKEEPER SUPERVISOR, Alvina Unavailable STANTON VELASCO Attending Unavailable CHRISTINA SCOTT Attending Unavailable SUKUMAR MACK Attending Unavailable STANTON VELASCO Attending Unavailable STANTON VELASCO Attending Unavailable SUKUMAR MACK Attending Unavailable STANTON VELASCO Attending Unavailable Nydia Barfield DO Attending Provider NON STAFF Primary Care Provider UnavailBOZENA Vickers Attending Unavailable BOZENA DOMINGO Attending Unavailable TAMANNA JOSHUA Attending Unavailable Velasco II, Stanton Primary Care Provider Rafael ZHANG, Emelyn Unavailable Stanton Velasco MD Unavailable CHRIS CLEMENTS Referring Unavailable VELASCO II, STANTON B Primary Care Unavailable VASAVADA, FADY P Attending Unavailable VELASCO II, STANTON B Primary Care Unavailable VASAVADA, FADY P Attending Unavailable VELASCO II, STANTON B Primary Care Unavailable CHRIS CLEMENTS M Attending Unavailable VASAVADA, FADY P Referring Unavailable VELASCO II, STANTON B Primary Care Unavailable CHRIS CLEMENTS Attending Unavailable VELASCO II, STANTON B Primary Care Unavailable KRISTAL HARE Attending Unavailable MOUCHLI, MOHAMAD Referring Unavailable VELASCO II, STANTON B Primary Care Unavailable KRISTAL HARE Attending Unavailable MOUCHLI, MOHAMAD Referring Unavailable VELASCO II, STANTON B Primary Care Unavailable FERRELLULIKEV Attending Unavailable VELASCO II, STANTON B Primary Care Unavailable FERRELL, KEV Referring Unavailable VELASCO II, STANTON B Primary Care Unavailable FERRELL, KEV Attending Unavailable VELASCO II, STANTON B Primary Care Unavailable OFELIA, NEHEMIAH Referring Unavailable VELASCO II, STANTON B Primary Care Unavailable CHRIS CLEMENTS M Attending Unavailable VELASCO II, STANTON B Primary Care Unavailable OFELIA, NEHEMIAH Referring Unavailable VELASCO II, STANTON B Primary Care Unavailable FERRELLULIKEV Attending Unavailable VELASCO II, STANTON B Primary Care Unavailable Velasco, Stanton Primary Care Unavailable Ly, Nydia L Attending Unavailable Carolyne, Nydia L Admitting Unavailable Suzanna Macdonald Admitting Unavailable Suzanna Macdonald Attending Unavailable Velasco, Stanton Primary Care Unavailable Ly, Nydia L Attending Unavailable Ly, Nydia L Admitting Unavailable Ly DO Nydia L Attending Provider NON STAFF Primary Care Provider Unavailabl e Rod II, Stanton Primary Care Provider Ly Nydia ARAYA Other Provider [phone] Allergies Allergy ClassificationReported Allergen(s)Allergy TypeDate of OnsetReaction(s) FacilityBee pollen (2 sources)Bee pollenDrug Orvcnep33-63-7969[facility] Work Phone: oxybutynin (2 sources)oxybutyninDrug Pmwrcjl06-80-5276Slksl: See [facility] Trospium (2 sources)TrospiumDrug Mszzlaq49-30-7849Uffnk: See [facility] (1 source)Bee/Wasp/Ant venom; Translations: [Bee/Wasp Stings]Propensity to adverse reactions (disorder)[facility] (20 sources)Bee pollen; Translations: [BEE POLLEN]Drug Bhgkshg14-90-9216Ddkocvdl [facility] Work Phone: (20 sources)Seasonal allergy; Translations: [SEASONAL ALLERGIES]Allergy to knlxoblsy55-68-1242Hmxhx: See [facility] (20 sources)Bee Sting; Translations: [BEE STING]Allergy to jgyutuvzz98-67-0510 [facility] (20 sources)oxybutynin; Translations: [OXYBUTYNIN]Drug Qkzeypi48-38-8954Leooy: See [facility] (20 sources)Trospium; Translations: [TROSPIUM]Drug Xsqgnev01-29-4056Jeujl: See [facility] (20 sources)Venom-Honey Bee; Translations: [VENOM-HONEY BEE]Drug Allergy 58-54-2027Twpxm: [facility] ([facility])Bee pollenAllergy to emprzcnqp39-75-8334[facility] Work Phone: (20 sources)Honey bee venomAllergy to eztgfntai06-85-7301[facility] (20 sources)TrospiumDrug Vjmqwyi60-94-0707FMKJ [facility] (20 sources)Other; Translations: [OTHER]Allergy to kcvioxdfp21-97-3089YqmqiAFRZ Healthcare (1 source)No Known Medication Allergies; Translations: [No Known Medication Allergies]Propensity to adverse reactions (disorder)[facility] Repository (1 source)oxybutynin; Translations: [OXYBUTYNIN CHLORIDE]Drug Xjidaxl43-01-6125 [facility] Repository (3 sources)BEE VENOM PROTEIN (HONEY BEE); Translations: [BEE VENOM PROTEIN (HONEY BEE)]Propensity to adverse reactions to drug (disorder)07-31-1741[facility] Medications Current Medications MedicationDrug Class(es)DatesSig (Normalized)Sig (Original)acetaminophen 500 mg oral tablet (20 sources)Start: 39-69-7598muek 2 tablets by mouth every six hours as needed acetaminophen (TYLENOL) 500 mg tablet Take 2 tablets by mouth every 6 hours as needed for pain. 05/03/2021 ActiveComment on above:Take 2 tablets by mouth every 6 hours as needed for pain.amoxicillin 500 mg oral tablet (20 sources)Penicillin-class AntibacterialStart: 08-02-2021 End: 39-43-9309Fpnefwhxkxr 500 mg tablet Indications: S/P reverse total shoulder arthroplasty, right take 6 tablets one hour prior to procedure and take 2 tablets six hours after procedure 8 tablet 2 08/02/2021 05/16/2022 Discontinued Start: 07-03-2019 End: 40-91-8341Mfxlyohargp 500 mg tablet TAKE 4 TABLETS BY MOUTH 1 (ONE) HOUR BEFORE procedure then TAKE 2 TABLETSBY MOUTH 6 (SIX) hours after procedure 6 tablet 3 05/22/2023 ActiveComment on above:Take 4 tablets 1 hour before procedure and 2 tablets 6 hours after proceduretake 6 tablets one hour prior to procedure and take 2 tablets six hours after procedureTAKE 4 TABLETS BY MOUTH 1 (ONE) HOUR BEFORE procedure then TAKE 2 TABLETS BY MOUTH 6 (SIX) hours after procedureamoxicillin 875 mg / clavulanate 125 mg oral tablet (2 sources)Penicillin-class AntibacterialStart: 02-15-2024 End: 54-08-9108mhcc 1 tablet by mouth in the morningamoxicillin-clavulanate (Augmentin) 875-125 MG tablet Indications: Acute sinusitis, recurrence not s pecified, unspecified location Take 1 tablet (875 mg) by mouth in the morning and 1 tablet (875 mg)before bedtime. Do all this for 7 days. 14 tablet 02/15/2024 02/22/2024 Activeascorbic acid 500 mg oral tablet (20 sources)Vitamin CStart: 40-66-7904fhfg 1 tablet by mouth once dailyascorbic acid, vitamin C, (VITAMIN C) 500 mg tablet Take 1 tablet by mouth once daily. 06/29/2017 ActiveAscorbic Acid (Vitamin C) 500 MG capsule 1 (one) time each day at the same time. ActiveComment on above:Take 1 tablet by mouth once daily. aspirin 81 mg chewable tablet (20 sources)Platelet Aggregation Inhibitor, Nonsteroidal Anti-inflammatory Drug Start: 03-68-6775vzny 1 tablet by mouth once dailyAspirin 81 mg Tablet,Chewable Active 81 MG PO Daily October 31, 2018 11:00pm Complies with drugtherapy Start: 98-55-1480wiqa 1 tablet by mouth twice dailyStart: 10-27-6441mjju 1 tablet by mouth twice dailyaspirin, enteric coated (ASPIRIN, ENTERIC COATED) 81 mg EC tablet Take 1 tablet by mouth twice daily. 84 tablet 10/31/2018 Active aspirin (Aspir-Low) 81 MG EC tablet 1 (one) time each day at the same time. ActiveComment on above:Take 1 tablet by mouth twice daily.cholecalciferol 0.025 mg oral tablet (20 sources)Vitamin Dcholecalciferol (Vitamin D3) 25 MCG (1000 UT) tablet 1 (one) time each day at the same time. ActiveComment on above:Take 1,000 Units by mouth once daily.COMPOUNDED PRESCRIPTION (20 sources)Start: 30-41-6614BVSWMZLJCA PRESCRIPTION 16 fr catheters 30 Device 11 12/24/2017 ActiveComment on above:16 fr cathetersfluticasone propionate 0.05 mg/actuat metered dose nasal spray (20 sources)CorticosteroidStart: 27-79-8286cwma 1-2 spray(s) nasal route in the morningfluticasone (Flonase) 50 MCG/ACT nasal spray Indications: Seasonal allergic rhinitis due to pollen Administer 1-2 sprays into each nostril in the morning. Shake gently. Before first use, prime pump. After use, clean tip and replace cap.. 16 g 3 02/02/2023 Vgtpex89 hr isosorbide mononitrate 60 mg extended release oral tablet (20 sources)Nitrate VasodilatorStart: 21-26-5777rtdw 1 tablet by mouth once daily in the morning, then take 1 tablet by mouth every twenty-four hours Isosorbide Mononitrate 60 mg Tablet Extended Release 24 Hr Active 60 MG PO Every morning October 31, 2018 11:00pm Complies with drug therapyComment on above: Take 60 mg by mouth once daily.lactulose 667 mg/ml oral solution (18 sources)Osmotic LaxativeStart: 27-21-7294rxrh 1 mL by mouth twice daily Lactulose 10 gram/15 mL solution Active 15 ML PO Twice daily November 13, 2024 11:00pm Complies with drug therapyStart: 67-76-2479hihs 15 mL by mouth in the morninglactulose (Chronulac) 10 GM/15ML solution Indications: Constipation, unspecified constipation type TAKE 15ml BY MOUTH IN THE MORNING then TAKE 15ml BY MOUTH BEFORE bedtime 900 mL 3 09/01/2024 ActiveStart: 04-16-2024 End: 16-58-5259skrk 10 g by mouth at bedtimelactulose (Chronulac) 10 GM/15ML solution Indications: Constipation, unspecified constipation type Take 15 mL (10 g) by mouth in the morning and 15 mL (10 g) before bedtime. 900 mL 3 04/16/2024 08/14/2024 Activelinaclotide 0.29 mg oral capsule (13 sources)Guanylate Cyclase-C AgonistStart: 04-03-2024 End: 52-96-2377ttss 1 capsule by mouth before mealtimelinaCLOtide (Linzess) 290 MCG capsule Indications: Chronic idiopathic constipation Take 1 capsule (290 mcg) by mouth in the morning for 16 days. Take before meals. Do not crush or chew.. 16 capsule 04/03/2024 10/24/2024 Discontinued (Other)lisinopril 20 mg oral tablet (20 sources)Angiotensin Converting Enzyme InhibitorStart: 21-54-2575lgpw 1 tablet by mouth once dailyLisinopril 20 mg Tablet Active 20 MG PO Daily October 31, 2018 11:00pm Complies with drug therapyComment on above:Take 20 mg by mouth once daily.loratadine 10 mg oral tablet (20 sources)Start: 03-07-2024 End: 42-98-2819ocgm 1 tablet by mouth once dailyloratadine (Claritin) 10 MG tablet Indications: Allergic rhinitis, unspecified seasonality, unspecified trigger Take 1 tablet (10 mg) by mouth Daily 90 tablet 3 03/07/2024 03/07/2025 Activemagnesium hydroxide 80 mg/ml oral suspension (20 sources)Start: 11-06-2018 End: 77-38-2185qhjj 1 mL by mouth once daily as needed for constipationMagnesium Hydroxide (Milk Of Magnesia) 400 mg/5 mL Suspension Active 30 ML PO Daily as needed for Constipation 0 0 November 06, 2018 3:09pm Complies with drug therapyMAGNESIUM HYDROXIDE (MILK OF MAGNESIA ORAL) Take 1 Bottle by mouth as needed. ActiveMAGNESIUM HYDROXIDE (MILK OF MAGNESIA ORAL) Take 1 Bottle by mouth as needed. 0 ActiveMAGNESIUM HYDROXIDE (MILK OF MAGNESIA ORAL) Take 1 Bottle by mouth once daily. 0 ActiveComment on above:Take 1 Bottle by mouth once daily. Take 1 Bottle by mouth as needed.methylPREDNISolone (2 sources)CorticosteroidStart: 11-02-2023 End: 20-29-8363rkvukqVWUSRJPllryq (Medrol Dospak) 4 MG tablets Indications: 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 Follow schedule on package instructions 21 tablet 11/02/2023 11/09/2023 Activemetoprolol tartrate 50 mg oral tablet (20 sources)beta-Adrenergic BlockerStart: 60-95-6388lozn 1 tablet by mouth twice dailyMetoprolol Tartrate 50 mg Tablet Active 50 MG PO Twice daily October 31, 2018 11:00pm Complies with drug therapymetoprolol tartrate (Lopressor) 50 MG tablet every 12 (twelve) hours. ActiveComment on above:Take 1 tablet by mouth twice daily.Multivitamin capsule (20 sources)take 1 capsule by mouth once dailyMultivitamin capsule Take 1 capsule by mouth once daily. Activetake 1 capsule by mouth once daily Multivitamin capsule Take 1 capsule by mouth once daily. 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 100tablet 11 10/17/2024 10/17/2025 Active End: 85-75-0839fwdwnkizgmhzy sublingual (NITROQUICK) 0.4 mg SL tablet Active ondansetron 4 mg disintegrating oral tablet (20 sources)Serotonin-3 Receptor AntagonistStart: 32-31-8932lnxv 1 tablet by mouth every four hours as needed for nausea and vomitingondansetron ODT (Zofran- ODT) 4 MG disintegrating tablet Take 4 mg by mouth every 4 (four) hours if n eeded for nausea or vomiting 03/31/2024 ActiveoxyCODONE hydrochloride 5 mg oral tablet (9 sources)Opioid AgonistStart: 05-03-2021 End: 04-63-5856eclm 1 tablet by mouth every four to six hours as neededoxyCODONE IR (ROXICODONE) 5 mg immediate release tablet Indications: Post-op pain Take 1-2 tablets by mouth every 4-6 hours as needed for pain 50 tablet 0 05/03/2021 06/14/2021 DiscontinuedStart: 11-06-2018 End: 42-63-2791wxle 1 capsule by mouth every six hours as needed for pain Oxycodone 5 mg capsule Discontinued 5 MG PO Every 6 hours as needed for pain 10 3 0 OctoberJanuary 25, 2024 3:39pm Presence of right artificial knee jointComment on above:Take 1-2 tablets by mouth every 4-6 hours as needed for painplecanatide 3 mg oral tablet (20 sources)Start: 12-13-2022 End: 37-30-6873rjiw 1 tablet by mouth once dailyplecanatide (TRULANCE) 3 mg tablet Take 1 tablet by mouth once daily. 12/13/2022 Activepolyethylene glycol 3350 16873 mg powder for oral solution (20 sources)Osmotic LaxativeStart: 34-69-2104Xuayyyupiqbm Glycol 3350 (Miralax) 17 gram Powder In Packet Active 17 GM PO Daily November 05, 2018 11:00pm Complies with drug therapypolyethylene glycol 3350 231206 mg / potassium chloride 2970 mg / sodium bicarbonate 6740 mg / sodium chloride 5860 mg / sodium sulfate 11978 mg powder for oral solution (2 sources)Osmotic LaxativeStart: 03-31-2024 End: 18-77-2882smkq 4000 mL by mouth onceGaviLyte-G 236 g solution Take 4,000 mL by mouth 1 (one) time 03/31/2024 04/03/2024 Discontinued (Therapy completed) rosuvastatin calcium 40 mg oral tablet (20 sources)HMG-CoA Reductase InhibitorStart: 01-86-8308wpjz 1 tablet by mouth once dailyRosuvastatin (Crestor) 40 mg Tablet Active 40 MG PO Daily October 31, 2018 11:00pm Complies with drug therapyComment on above:Take 40 mg by mouth once daily.sulfamethoxazole 800 mg / trimethoprim 160 mg oral tablet (2 sources)Dihydrofolate Reductase Inhibitor Antibacterial, Sulfonamide AntimicrobialStart: 12-14-2023 End: 26-61-2689ipum 1 tablet by mouth twice dailysulfamethoxazole-trimethoprim (BACTRIM DS) 800-160 mg per tablet Take 1 tablet by mouth two times aday for 10 days. 20 tablet 12/14/2023 12/24/2023 Activetenapanor 50 mg oral tablet (15 sources)Start: 11-14-2024 End: 83-22-5201dmyl 1 tablet by mouth once daily at dinnerTenapanor (Ibsrela) 50 mg tablet Active 50 MG PO Twice daily 60 30 December 10, 2024 10:31am must administer immediately before first meal of day/breakfast and dinner Complies with drug therapytriamcinolone acetonide 1 mg/ml topical cream (20 sources)CorticosteroidStart: 48-63-2655vkrsullrnlslb (Kenalog) 0.1 % cream APPLY TO THE AFFECTED AREA(S) (thin layer on neck, chest) TWICEDAILY NEEDED 09/13/2022 Activetrospium chloride 20 mg oral tablet (20 sources)Cholinergic Muscarinic AntagonistStart: 83-02-7400zocm 1 tablet by mouth twice dailytrospium (SANCTURA) 20 mg tablet Take 1 tablet by mouth two times a day. 30 tablet 4 09/11/2023 ActiveStart: 04-25-2022 End: 67-39-2136czlp 1 tablet by mouth once dailytrospium (SANCTURA) 20 mg tablet Indications: Urinary urgency Take 1 tablet by mouth once daily. 30tablet 2 04/25/2022 07/05/2023 DiscontinuedComment on above:Take 1 tablet by mouth once daily. Completed/Discontinued Medications MedicationDrug Class(es)DatesSig (Normalized)Sig (Original)bisacodyl 10 mg rectal suppository (4 sources)Stimulant LaxativeStart: 11-06-2018 End: 97-28-6675Xfhuulfqa 10 mg Suppository Discontinued 10 MG NH Daily as needed for Constipation 0 0 November 05, 2018 11:00pm January 25, 2024 3:39pm cephalexin 500 mg oral capsule (13 sources)Cephalosporin AntibacterialStart: 01-25-2024 End: 79-87-4179dece 1 capsule by mouth three times dailyCephalexin 500 mg capsule Discontinued 500 MG PO Three times daily 21 7 0 January 25, 2024 12:00am November 14, 2024 9:22amStart: 08-17-2023 End: 65-73-2628muns 1 capsule by mouth three times dailycephALEXin (KEFLEX) 500 mg capsule Take 1 capsule by mouth three times a day for 10 days. 30 capsule 0 08/17/2023 08/27/2023 ActiveStart: 07-11-2023 End: 66-68-4596htzs 1 capsule by mouth three times dailycephALEXin (KEFLEX) 500 mg capsule Take 1 capsule by mouth three times a day for 7 days. 21 capsule0 07/11/2023 07/18/2023 ActiveStart: 06-10-2023 End: 76-94-3209unfi 1 capsule by mouth three times dailycephALEXin (KEFLEX) 500 mg capsule Take 1 capsule by mouth three times a day for 7 days. 21 capsule0 06/10/2023 06/17/2023 ActiveStart: 06-03-2023 End: 72-13-5117nspuKFHSsz 500 mg cap(s) (KEFLEX)Start: 05-30-2022 End: 59-65-4087dqwkEDAYbj 500 mg cap(s) (KEFLEX)Start: 11-06-2018 End: 00-76-1315qnur 1 capsule by mouth every twelve hoursCephalexin 500 mg Capsule Discontinued 500 MG PO Every 12 hours 0 7 0 November 05, 2018 11:00pm January 25, 2024 3:30pmdocusate sodium 100 mg oral capsule (12 sources)Start: 11-06-2018 End: 96-12-5803dqkx 1 capsule by mouth twice dailyDocusate Sodium 100 mg capsule Discontinued 100 MG PO Twice daily 0 0 November 06, 2018 3:09pm December 11, 2024 7:40amStart: 11-06-2018 End: 96-33-3674zqrt 1 capsule by mouth once dailyDocusate Sodium (Dok) 100 mg capsule Discontinued 100 MG PO Daily November 05, 2018 11:00pm November 06, 2018 3:10pmComment on above:Take 1 capsule by mouth twice daily as needed for constipation.ezetimibe 10 mg oral tablet (20 sources)Dietary Cholesterol Absorption InhibitorStart: 04-22-2021 End: 95-46-4732ddyx 1 tablet by mouth once dailyezetimibe (ZETIA) 10 mg tablet Take 10 mg by mouth once daily. 04/22/2021 07/05/2023 DiscontinuedComment on above:Take 10 mg by mouth once daily.lidocaine hydrochloride 0.02 mg/mg topical gel (3 sources)Antiarrhythmic, Amide Local AnestheticStart: 06-03-2023 End: 24-42-9435cwuequogf urojet 2 % 11 mL topical gel (GLYDO)Start: 05-30-2022 End: 48-99-9963cpmvellpx urojet 2 % 11 mL topical gel (GLYDO)predniSONE 20 mg oral tablet (2 sources)Start: 07-30-2020 End: 32-70-3491owpp 1 tablet by mouth once dailypredniSONE (DELTASONE) 20 mg tablet Indications: Nontraumatic tear of right rotator cuff, unspecified tear extent , Acute pain of right shoulder Take 1 tablet by mouth once daily. 7 tablet Discontinued (Course of therapy completed)Comment on above:Take 1 tablet by mouth once daily.tamsulosin hydrochloride 0.4 mg oral capsule (2 sources)alpha-Adrenergic BlockerStart: 03-09-2020 End: 23-31-0069zpzg 1 capsule by mouth once dailytamsulosin (FLOMAX) 0.4 mg Take 1 capsule by mouth once daily. 30 capsule 1 03/09/2020 04/12/2021 Discontinued (Course of therapy completed)Comment on above:Take 1 capsule by mouth once daily.tiZANidine 4 mg oral tablet (8 sources)Central alpha-2 Adrenergic AgonistStart: 01-25-2024 End: 59-39-6482plja 1 tablet by mouth every twelve hours as neededTizanidine 4 mg tablet Discontinued 4 MG PO Every 12 hours as needed January 25, 2024 12:00am December 11, 2024 7:41amStart: 11-02-2023 End: 57-59-1524oanl 1 tablet by mouth every eight hourstiZANidine (Zanaflex) 4 MG tablet Indications: 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 Take 1 tablet (4 mg) by mouth every 8 (eight) hours if needed (back spasms) for up to 10 days 30 tablet 11/02/2023 02/15/2024 Discontinued (Therapy completed) Problems Active Problems Problem ClassificationProblemDateDocumented DateEpisodic/ChronicAbdominal pain (6 sources)Inguinal pain; Translations: [Lower abdominal pain, unspecified] Onset: 710379-52-7864SvtioeqsAuygfvsn reactions (20 sources)Atopic dermatitis; Translations: [Atopic dermatitis, unspecified] Onset: 472380-65-6623KtzhtsnFqkxzox kidney disease (20 sources)Chronic kidney disease stage 2; Translations: [Chronic kidney disease, stage 2 (mild)]Onset: 651600-87-5037QegxttqXcdehun obstructive pulmonary disease and bronchiectasis (20 sources)Chronic obstructive lung disease; Translations: [Chronic obstructive pulmonary disease, unspecified]Onset: 151059-76-5721JcfwgjwYrdqpvescjfet of surgical procedures or medical care (2 sources)Stricture of male urethra following procedure; Translations: [Postprocedural urethral stricture, male, unspecified]Onset: 12-12-2023 85-20-7746ParrhrfjVgbgmwfm atherosclerosis and other heart disease (20 sources)Coronary arteriosclerosis; Translations: [Atherosclerotic heart disease of [place] coronary artery without angina pectoris]Onset: 02-13-2004 50-66-2420IxmcocrQcbvihlz atherosclerosis and other heart disease (3 sources)Presence of aortocoronary bypass graft; Translations: [PRESENCE AORTOCORONARY BYPASS GRAFT]Onset: 70-02-5438BhvanvalLqdufhkg, dementia, and amnestic and other cognitive disorders (20 sources)Mild cognitive disorder ; Translations: [Unspecified mental disorder due to known physiological condition]Onset: hronic Disorders of lipid metabolism (20 sources)Mixed hyperlipidemia; Translations: [Mixed hyperlipidemia]Onset: 11-20-2011 Resolved: 406258-14-2959QswtqmyEanbezyhfxaphm and diverticulitis (20 sources)Diverticulosis of colon; Translations: [Diverticulosis of large intestine without perforation or abscess without bleeding]Onset: 08-21-2022 76-43-2149UjtpfwhXjxfbfcoq hypertension (20 sources)Essential hypertension; Translations: [Essential (primary) hypertension]Onset: 981306-61-0548VbzjiawNjjmmbulgkmkd symptoms and ill- defined conditions (20 sources)Urge incontinence of urine; Translations: [Urge incontinence]Onset: 044423-93-0633EkqsiptUpbxq valve disorders (2 sources)Nonrheumatic mitral (valve) insufficiency; Translations: [Nonrheumatic mitral (valve) insufficiency]Onset: 05-49-3478KcoikatJngdivovnpp of prostate (20 sources)Weak urinary stream due to benign prostatic hypertrophy; Translations: [Benign prostatic hyperplasia with lower urinary tract symptoms] Onset: 08-21-2022 Resolved: 91-88-4136HdwfivhHzvkhmtjbnrw with complications and secondary hypertension (2 sources)Hypertensive heart disease without heart failure; Translations: [Hypertensive heart disease withoutheart failure]Onset: 55-63-8315Ikwajnq Nonspecific chest pain (8 sources)Left sided chest pain; Translations: [Chest pain, unspecified]Onset: 264380-96-4353ZcqzfvqjHdsxaoqkdcq deficiencies (20 sources)Vitamin D deficiency; Translations: [Vitamin D deficiency, unspecified]Onset: 548853-68-6922CagjavpJlkdhldzu or stenosis of precerebral arteries (1 source)Occlusion and stenosis of left carotid artery; Translations: [OCCLUSION AND STENOSIS LT CAROTID ART]Onset: 12-74-2312LmbhzqnDkspcuarsnpegk (20 sources)Osteoarthritis of right knee joint; Translations: [Unilateral primary osteoarthritis, right knee]Onset: 10-30-2018 Resolved: 322402-08-9029MxmrunrUcvti acquired deformities (4 sources)Contracture, right hip; Translations: [CONTRACTURE RIGHT HIP]Onset: 16-89-6852BdkomgnVeiby acquired deformities (20 sources)Contracture of right hip joint; Translations: [Contracture, right hip]Onset: 893508-70-3508XdzcdvsZutkq and unspecified benign neoplasm (3 sources)History of polyp of colon; Translations: [Personal history of colon polyps, unspecified]Onset: 017597-83-6540SoosbwyoYugwc bone disease and musculoskeletal deformities (1 source)Other specified disorders of bone density and structure, other site; Translations: [OTH D/O BONE DEN STRUCT OTH SITE]Onset: 64-67-8994KoeipnrhEnacc circulatory disease (20 sources)Raynaud's disease; Translations: [Raynaud's syndrome without gangrene]Onset: 298640-84-6439LmhlithZymjq circulatory disease (20 sources)H/O: heart disorder; Translations: [Personal history of other diseases of the circulatory system]Onset: 272572-68-8592WqznvxaoIvzxuhp on above:Problem List clean-up per request of Phys. EHR CmteOther circulatory disease (2 sources)Other hypotension; Translations: [Other hypotension]Onset: 11-25-2024 EpisodicOther connective tissue disease (4 sources)History of reverse prosthetic total arthroplasty of right shoulder; Translations: [Presence of right artificial shoulder joint]ChronicOther connective tissue disease (4 sources)History of total knee arthroplasty; Translations: [Presence of right artificial knee joint]00-41-5412ArdwqtgXwyftxf on above:Problem List clean-up per request of Phys. EHR CmteOther connective tissue disease (20 sources)Shoulder joint prosthesis present; Translations: [Presence of unspecified artificial shoulder joint]Onset: 990008-14-0590UpjpdduOuiem connective tissue disease (3 sources)Nontraumatic complete rupture of rotator cuff of right shoulder; Translations: [Complete rotator cuff tear or rupture of right shoulder, not specified as traumatic]EpisodicOther connective tissue disease (1 source)Muscle wasting and atrophy, not elsewhere classified, left upper arm; Translations: [MUSC WASTING ATROPHY NEC LT UP ARM]Onset: 32-22-1827WchpxyhwFufgh connective tissue disease (1 source)Disorder of rotator cuff; Translations: [Unspecified disorder of synovium and tendon, left shoulder]EpisodicOther connective tissue disease (1 source)Nontraumatic rotator cuff tear; Translations: [Unspecified rotator cuff tear or rupture of right shoulder, not specified as traumatic]08-10-2020 EpisodicOther connective tissue disease (2 sources)Pelvic floor dysfunction; Translations: [Other specified disorders of muscle]79-66-6606FoejpteuJtnji diseases of bladder and urethra (1 source)Low compliance bladder; Translations: [Other neuromuscular dysfunction of bladder]42-86-1813TwzremlKscng diseases of bladder and urethra (2 sources)Overactive bladder; Translations: [Overactive bladder]12-12-2023 ChronicOther diseases of bladder and urethra (2 sources)Overactive bladder; Translations: [Overactive bladder]Onset: 64-25-6610OjerzeuGxydr diseases of bladder and urethra (5 sources)Male urethral stricture; Translations: [Unspecified urethral stricture, male, unspecified site]EpisodicOther diseases of bladder and urethra (1 source)Traumatic anterior urethral stricture; Translations: [Post-traumatic anterior urethral stricture]01-36-1505LmojelltWzhhg fractures (1 source)Nondisplaced fracture of lateral end of right clavicle, subsequent encounter for fracture with routine healing; Translations: [Closed nondisplaced fracture of acromial end of right clavicle with routine healing, subsequent encounter]Onset: 90-09-5919DpqgbeyvYdppc gastrointestinal disorders (20 sources)Chronic idiopathic constipation; Translations: [Chronic idiopathic constipation]Onset: 047047-64-8320VhtnsgjQxznh gastrointestinal disorders (11 sources)Constipation; Translations: [Constipation, unspecified]04-16-2024 EpisodicOther gastrointestinal disorders (2 sources)Defecation ffmaeyzlq59-86-3159EgyfvgdtRtgtc gastrointestinal disorders (1 source)Diarrhea; Translations: [Diarrhea, unspecified]Onset: 06-27-2024 EpisodicOther gastrointestinal disorders (1 source)Digestive system finding; Translations: [Other specified symptoms and signs involving the digestivesystem and abdomen]Onset: 88-46-9199SdkzufhmMiegn gastrointestinal disorders (3 sources)Spurious diarrhea - overflow; Translations: [Diarrhea, unspecified] 29-76-1458NpeqzszzTgaqz gastrointestinal disorders (4 sources)Altered bowel function; Translations: [Other specified symptoms and signs involving the digestive system and abdomen]62-32-9043QgmnrznoXnaph gastrointestinal disorders (1 source)Other constipation; Translations: [Chronic constipation]Onset: 52-60-1476LmuwdonfRqobb gastrointestinal disorders (1 source)Constipation, unspecified; Translations: [Constipation, unspecified] Onset: 24-51-2886QcdymkuzQgaim gastrointestinal disorders (1 source)Diarrhea, unspecified; Translations: [Diarrhea, unspecified]Onset: 23-65-4781KvxboftpMeffu lower respiratory disease (4 sources)Solitary pulmonary nodule; Translations: [SOLITARY PULMONARY NODULE] Onset: 31-12-0275EwlgktrxKumjy nervous system disorders (20 sources)Brachial plexus disorder; Translations: [Brachial plexus disorders] Onset: 471427-98-9025GmaqsgsOfnwn nervous system disorders (20 sources)Unable to walk; Translations: [Difficulty in walking, not elsewhere classified]Onset: 05-23-2023 Resolved: 680226-94-8164CmsoiukHlhgtsj on above:Problem List clean-up per request of Phys. EHR CmteOther nervous system disorders (20 sources)Chronic pain; Translations: [Other chronic pain]Onset: 05-04-2021 69-61-6325IbcfhnsBulnt nervous system disorders (4 sources)Paresthesia of skin; Translations: [PARESTHESIA OF SKIN]Onset: 90-39-1640VirvidwdCvavx non-traumatic joint disorders (1 source)Rotator cuff arthropathy of right shoulder; Translations: [Other specific arthropathies, not elsewhere classified, right shoulder]01-04-2021 ChronicOther non-traumatic joint disorders (1 source)Pain in right knee; Translations: [PAIN IN RIGHT KNEE]Onset: 67-26-8690VvuczyyrCyrja non-traumatic joint disorders (5 sources)Pain in left shoulder; Translations: [Pain in joint, shoulder region] Onset: 90-44-2986OovxinduPuukl non-traumatic joint disorders (1 source)Shoulder pain; Translations: [Pain in left shoulder]EpisodicOther non- traumatic joint disorders (1 source)Hip pain; Translations: [Pain in right hip]97-32-5419PtcneawcHafcf nutritional; endocrine; and metabolic disorders (20 sources)Obese class I; Translations: [Obesity, unspecified]Onset: 10-28-2018 66-08-4125DkxmqveWluin upper respiratory disease (20 sources)Seasonal allergic rhinitis; Translations: [Other seasonal allergic rhinitis]Onset: 653532-99-8904TlkyrpdSyxmj upper respiratory disease (2 sources)Allergic rhinitis; Translations: [Allergic rhinitis, unspecified] 17-76-0762XgetncwIvtnz upper respiratory infections (2 sources)Acute sinusitis; Translations: [Acute sinusitis, unspecified] 14-36-3520YtaxrnrrVfvesleqa (4 sources)Functional quadriplegia; Translations: [Functional quadriplegia] 39-19-7258LgqpvlrNmhocfd on above:Problem List clean-up per request of Phys. EHR CmteResidual codes; unclassified (20 sources)Finding of activity of daily living; Translations: [Other general symptoms and signs]Onset: 290618-64-8401TjpiskotRdmsvsu on above:Problem List clean-up per request of Phys. EHR CmteResidual codes; unclassified (20 sources)Edema; Translations: [Edema, unspecified]Onset: EpisodicComment on above:Problem List clean-up per request of Phys. EHR Cmte Residual codes; unclassified (3 sources)Finding related to ability to manage personal health care; Translations: [Other specified health status]EpisodicResidual codes; unclassified (1 source)Other specified health status; Translations: [Self-catheterizes urinary bladder]Onset: 93-28-7625NfawdgtjPzitjzbby and history of mental health and substance abuse codes (1 source)Personal history of nicotine dependence; Translations: [PERSONAL HISTORY OF NICOTINE DEPEND]Onset: 05-00-4842OvsgikxzIqkyzc cord injury (20 sources)Cervical spinal cord injury; Translations: [Unspecified injury at C5 level of cervical spinal cord,initial encounter]Onset: ChronicSpondylosis; intervertebral disc disorders; other back problems (20 sources)Cervical spondylosis; Translations: [Other spondylosis with myelopathy, cervical region]Onset: 999386-92-5475SewgporSmmpyarbl-ceilhcr disorders (2 sources)Pspqua70-46-7519ZrjsckkGljutfm on above:Added secondary to documentation in Social History.Unclassified (1 source)Obesity, Class I, BMI 30-34.9; Translations: [Obesity, Class I, BMI 30-34.9]Onset: 87-62-6265Oiqstcnkfeve (1 source)Finding of sensation of -63-6196Immgauxdwdnq (2 sources)Right shoulder pain, unspecified otxgcntzom82-91-6152Wnotnja tract infections (20 sources)Urinary tract infectious disease; Translations: [Urinary tract infection, site not specified]Onset: 05-23-2023 Resolved: 398568-88-6867PgfpsnhfMfkpapn on above:Problem List clean-up per request of Phys. EHR Cmte Past or Other Problems Problem ClassificationProblemDateDocumented DateEpisodic/ChronicAbdominal hernia (3 sources)Inguinal hernia; Translations: [Unilateral inguinal hernia, without obstruction or gangrene, not specified as recurrent]Onset: EpisodicBlindness and vision defects (20 sources)Presbyopia; Translations: [Presbyopia]Onset: EpisodicComplication of device; implant or graft (20 sources)Loosening of total knee replacement; Translations: [Mechanical loosening of internal right knee prosthetic joint, initial encounter]Onset: 826820-83-2399JjaqtlaiNiqjmxif of lower limb (20 sources)Closed fracture of upper end of fibula; Translations: [Torus fracture of upper end of left fibula, initial encounter for closed fracture] Onset: 08-21-2022 Resolved: 923717-65-3817GjpefgmfAyeuxrmp of upper limb (8 sources)Closed fracture of acromial end of clavicle; Translations: [Nondisplaced fracture of lateral end ofright clavicle, initial encounter for closed fracture]Onset: 416530-11-8428McawfeeoPqzugtlxtxtmw symptoms and ill-defined conditions (18 sources)Retention of urine; Translations: [Retention of urine, unspecified] Onset: 23-77-9245CgcwnzwmQqlcyveqap obstruction without hernia (3 sources)Obstructive defecation syndrome; Translations: [Fecal impaction] Onset: 042320-58-5897KwdggiunJnir disorders (20 sources)Mood disordersOnset: Other aftercare (20 sources)Long-term current use of anticoagulant; Translations: [snf (current) use of anticoagulants]Onset: 967969-29-3330AbyxgdzgYvwlv and unspecified benign neoplasm (20 sources)Polyp of colon; Translations: [Polyp of colon]Onset: 05-23-2023 34-58-5914BggyvkleIutrf connective tissue disease (20 sources)Shoulder girdle weakness; Translations: [Other symptoms and signs involving the musculoskeletal system]Onset: 858097-64-2899FnutsubbUcssn connective tissue disease (20 sources)History of lumbar fusion; Translations: [Arthrodesis status]Onset: 506026-88-5580AletgnpkTclxi connective tissue disease (20 sources)Rotator cuff arthropathy of right shoulder; Translations: [Unspecified rotator cuff tear or ruptureof right shoulder, not specified as traumatic]Onset: 019118-93-8762QtudyclcOczeb connective tissue disease (20 sources)Atrophy of deltoid muscle; Translations: [Muscle wasting and atrophy, not elsewhere classified, unspecified shoulder]Onset: 08-21-2022 76-32-7060FemefpprRblae connective tissue disease (20 sources)Atrophy of muscle of right shoulder; Translations: [Muscle wasting and atrophy, not elsewhere classified, right shoulder]Onset: 08-21-2022 42-70-2751RjpsjjdiSsgyg connective tissue disease (20 sources)Impingement syndrome of left shoulder region; Translations: [Impingement syndrome of left shoulder]Onset: 815358-96-2659PixorzwqHhops connective tissue disease (20 sources)Full thickness rotator cuff tear; Translations: [Complete rotator cuff tear or rupture of right shoulder, not specified as traumatic]Onset: 05-04-2021 Resolved: 339422-44-0259OneuawhhIouzc connective tissue disease (20 sources)Pain in limb; Translations: [Pain in unspecified limb]Onset: 08-21-2022 Resolved: 712155-32-8420SzaavsfoGlvpc connective tissue disease (1 source)Other specified disorders of muscle; Translations: [High-tone pelvic floor dysfunction]Onset: 13-79-8843RkaustkcSjuhx diseases of bladder and urethra (20 sources)Disorder of bladder; Translations: [Bladder disorder, unspecified] Onset: 05-04-2021 Resolved: 869889-87-0603OuymtrtVtqav diseases of bladder and urethra (1 source)Unspecified urethral stricture, male, unspecified site; Translations: [Stricture of male urethra, unspecified stricture type]Onset: 52-60-6152Ukycrghz Other gastrointestinal disorders (1 source)Outlet dysfunction constipation; Translations: [Constipation due to outlet dysfunction]Onset: 47-85-3079HfidrjoyHqkxq lower respiratory disease (20 sources)Dyspnea; Translations: [Dyspnea, unspecified]Onset: 11-20-2011 95-75-8726RjxanngiBqsuz lower respiratory disease (20 sources)Multiple nodules of lung; Translations: [Other nonspecific abnormal finding of lung field]Onset: 511722-44-0717OjxyvqdlWbczl lower respiratory disease (20 sources)Solitary nodule of lung; Translations: [Solitary pulmonary nodule] Onset: 08-21-2022 Resolved: 192360-74-5991YotfeamoMlyow nervous system disorders (20 sources)Abnormal gait; Translations: [Unspecified abnormalities of gait and mobility]Onset: 318959-18-3866CgulgttrYsloj nervous system disorders (20 sources)Unsteady when standing; Translations: [Unsteadiness on feet]Onset: 995183-12-5688GxzohihhFxlam nervous system disorders (20 sources)Skin sensation disturbance; Translations: [Unspecified disturbances of skin sensation]Onset: 782930-98-6125SujlfrhwOjdvd non-traumatic joint disorders (20 sources)Chronic pain following right total knee arthroplasty; Translations: [Pain in right knee]Onset: 116396-14-5413OkdtmckcLclew non-traumatic joint disorders (6 sources)Pain in right shoulder; Translations: [Pain in joint, shoulder region]Onset: 917900-62-5180HvdpyvqhDhnmb non-traumatic joint disorders (20 sources)Pain in left knee; Translations: [Pain in joint, lower leg]Onset: 08-21-2022 Resolved: 859992-67-7420EpyafecfMqvge screening for suspected conditions (not mental disorders or infectious disease) (20 sources)Patient encounter status; Translations: [Encounter for screening for other disorder]Onset: 08-21-2022 Resolved: 21-77-0830CblntgwkVxokz skin disorders (2 sources)Excessive sweating; Translations: [Generalized hyperhidrosis] 28-70-7739KqvhbaniCuwmdxxvu (except that caused by tuberculosis or sexually transmitted disease) (20 sources)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 Author Type: Nurse Practitioner Type: H&P Filed: 12/17/2024 14:00 Note Text: [facility] HISTORY AND PHYSICAL EXAMINATION SERVICE DATE: 12/17/2024 SERVICE TIME: 1:30 PM PRIMARY CARE PHYSICIAN: Stanton Velasco II, MD, MD REASON FOR VISIT: Fahad Sotelo is a 74 year old male who is scheduled for Right - HERNIORRHAPHY INGUINAL ELECTIVE ADULT REDUCIBLE at the request of Dr. Chris Clements for consultation. My final recommendation will be communicated back to the requesting physician by way of shared medical record or letter. Assessment CAD S/p saphenous vein graft to the LAD (2004) given need for emergency CABG due to complicated PCI Denies any new or worsening cardiac symptoms Follows cardiology at [facility], last OV 11/25/2024. Stress test 10/2024: [...] have a large neck STOP-Bang Score: 4 [id number] Score: Age: >=75 Sex: male CHF history: No Hypertension history: Yes Stroke/TIA/thromboembolism history: No Vascular disease history: Yes Diabetes history: No DZD0VZ8-CXYw Score: 4 ARISCAT Score: Age: 51-80 Preoperative [...] 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 Dye CYSTO.PANENDO 05/31/2022 CYSTO.PANENDO N/A 06/04/2023 CYSTOSCOPY (more content not included)...NormalSelect Medical Specialty Hospital - Youngstown ClevelandCT abdomen pelvis w conon 20-56-9586ST abdomen pelvis w [facility] [place] [address] [place] [address] CT Scan Report Signed Patient: Fahad Sotelo MR#: [id number] : 1950 Acct:[id number] Age/Sex: 74 / M ADM Date: 12/05/24 Loc: CT Room: Type: [facility] Attending Dr: Nydia Barfield DO Copies to: Nydia Barfield DO Ordering Provider: Nydia Barfield DO Date of Service: 12/05/24 CT/CT abdomen pelvis w con: K59.00 - Constipation, unspecified CT ABDOMEN AND PELVIS WITH INTRAVENOUS CONTRAST: CLINICAL HISTORY: Constipation COMPARISON: None TECHNIQUE: Spiral images were obtained through the abdomen and pelvis following the administration of intravenous contrast. This CT exam was performed using one or more following dose reduction techniques: Automated exposure control, adjustment of the mA and/or kV according to patient size, or use of iterative reconstruction technique. FINDINGS: Lung Bases: [Triple vessel coronary disease. Subpleural nodularity up to 8 x 2 mm size, favor areas of scarring.] Organs:Fatty liver. Cholelithiasis. Spleen, adrenals, kidneys, and pancreas are unremarkable.[ GI: Mild to moderate colonic stool burden. No bowel obstruction. Appendix unremarkable.[ Pelvis:[Bladder wall thickening possibly to under distention, correlate with urinalysis findings. Prostate unremarkable.] Peritoneum/Retroperitoneum:No free air or free fluid. Ttoy-yw-ckqrqauq plaque involving the nonaneurysmal aorta and mesenteric vessels.[ Abd wall/Bones:Postsurgical changes status post L4-5 discectomy and posterior fusion and laminectomy. Otherwise degenerative changes elsewhere.[ CT/CT abdomen pelvis w con IMPRESSION: Negative acute inflammatory process or bowel obstruction. Bladder wall thickening possibly to under distention versus cystitis. Please correlate with urinalysis findings. Impression dictated by: Matheus Chahal M.D. 12/05/2024 5:57 PM Dictation Location: [place] [address] Transcribed By: [facility] 12/05/241756 Dictated By: Matheus Chahal MD 12/05/241753 Signed By: 12/05/241756NoCommunity Health Physician GroupCreatinineon 85-77-8935LFG/1.73 sq M.predicted MDRD (S/P/Bld) [Vol rate/Area]mL/min/{1.73_m2}NormalThe Scionhealth Physician GroupComment on above:Order Comment: STAT FOR FOR CTResult Comment: PERFORMED BY: [address] [place] [address] PATHOLOGIST DIRECTOR [employer] FABIO AHN M.D.Performed By: #### CREAT, BUN #### [facility] [address] [place] [address] USACreatinine [Mass/volume] in Serum or PlasmaOrdered By: Nydia Carolyne on 73-19-8979Wvaktaxcys [Mass/Vol]0.77 mg/dLNormal0.70-1.30 [facility] - ColumbusComment on above:Order Comment: STAT FOR FOR CT Performed By: #### CREAT, BUN #### [facility] [address] [place] [address] USAGlomerular filtration rate [Volume Rate/Area] in Serum, Plasma or Blood by CreatinineOrdered By: Nydia Barfield on 21-60-8905Dstqfrqpkl filtration rate [Volume Rate/Area] in Serum, Plasma or Blood by Creatinine> 60.0 mL/MinSelect Medical Specialty Hospital - ColumbusNo Panel InformationOrdered By: Nydia Barfield on 64-64-0942Oyavbjvr Creatinine Clearance (ChemN/[facility]'s Medical CenterUrea nitrogen [Mass/volume] in Serum or PlasmaOrdered By: Nydia Barfield on 29-01-8594Jnqd nitrogen [Mass/Vol]16 mg/dLNormal7-25[facility] Hospital - ColumbusComment on above:Order Comment: STAT FOR FOR CTPerformed By: #### CREAT, BUN #### [facility] [address] [place] [address] [id number] *Decrease lisinopril to 10mg dailyNormal [facility] HospitalOffice Visiton 32-00-5488Qpchlh-up visit [id number] Fahad Sotelo 1950 M Date Provider Department Center 11/25/2024 BOZENA GARCIA [facility] Family History Problem Relation Age of Onset Coronary artery disease Other Stroke Other Heart attack Other Family Status - Relation Status Age at Mother Father Other Level of Service:[address] [place] OFFICE/OUTPATIENT ESTABLISHED MOD MDM 30 MIN Reason for Visit and Comments: Follow-up [396320] - Patient is here today for a 4 week follow up. Patient recently had a stress test, labs Coronary Artery Disease [187] Hypertension [298470] Hyperlipidemia [182] chrronic ischemic heart disease [Other] Raynauds syndrome [Other]NormalAultman Alliance Community HospitalNM ROSENDA PERF SPECT REST STRon 45-37-27[place] [address] Nuclear Medicine Report Signed Patient: FAHAD SOTELO MR#: [id number] : 1950 Acct:[id number] Age/Sex: 74 / M ADM Date: 11/10/24 Loc: [place] Attending Dr: BOZENA DOMINGO APRN Ordering Physician: BOZENA DOMINGO APRN Date of Service: 11/10/24 Procedure(s): NM rosenda perf SPECT rest str Accession Number(s): [id number] cc: STANTON VELASCO ; BOZENA DOMINGO APRN Patient Name: FAHAD SOTELO MR#: [id number] : 1950 Exam Date: 11/10/2024 Ordering Doctor: BOZENA DOMINGO LIFESTYLE CONSULTANT RADIOLOGY REPORT PROCEDURE: NM ROSENDA PERF SPECT REST STR COMPARISON: None. INDICATIONS: PRE PROCEDURE CARDIOVASCULAR EXAM TECHNIQUE: Exam Description: Stress/Rest two day protocol gated SPECT Rest Imagin.4 mCi Tc-99m Cardiolite IV on 11/11/2024 Stress Imaging 25.0 mCi Tc-99m Cardiolite IV on 11/10/2024 Exercise Protocol: 0.4 mg Lexiscan given IV Heart Rate (bpm): Rest: 62 Max: 88 PMHR: 61 Blood Pressure: Rest: 144/98 Max: 144/98 Symptoms: Rest and peak stress ECG findings were pending and the exercise portion of the study was pending per attending physician [facility] . For more details please see separate cardiac stress test report. FINDINGS: QUALITY OF STUDY: Fair PERFUSION DEFECT: yes LOCATION: Inferior SIZE: Moderate SEVERITY: Moderate TYPE: Fixed WALL MOTION: LV SIZE: 121 mL. TID / TCD: 1.1 LVEF: Calculated EF 64%. SUMMARY: Myocardial perfusion imaging study CONCLUSION: This report was transmitted to the referring physician at the report approval time, and the office called to confirm receipt. -Negative myocardial perfusion stress study for ischemia. -Abnormal myocardial perfusion study -Fixed inferior perfusion defect that might be artifact. -Normal global left ventricle systolic function -No TID Dictated by: Cuba Weir MD on 11/13/2024 at 15:02 Approved by: Cuba Weir MD on 11/13/2024 at 15:08 Dictated By: CUBA WEIR M.D. Signed By: 11/13/24 1509 DD/ 1508 TD/TT: Assistant Professor Of Mathematics:MARTINadiolmyah, Radiologist, - 11/13/2024 [place] [address] Nuclear Medicine Report Signed Patient: FAHAD SOTELO MR#: [id number] : 1950 Acct:[id number] Age/Sex: 74 / M ADM Date: 11/10/24 Loc: [place] Attending Dr: BOZENA DOMINGO APRN Ordering Physician: BOZENA DOMINGO APRN Date of Service: 11/10/24 Procedure(s): NM rosenda perf SPECT rest str Accession Number(s): [id number] cc: STANTON VELASCO ; BOZENA DOMINGO APRN Patient Name: FAHAD SOTELO MR#: [id number] : 1950 Exam Date: 11/10/2024 Ordering Doctor: BOZENA DOMINGO CNP RADIOLOGY REPORT PROCEDURE: NM ROSENDA PERF SPECT REST STR COMPARISON: None. INDICATIONS: PRE PROCEDURE CARDIOVASCULAR EXAM TECHNIQUE: Exam Description: Stress/Rest two day protocol gated SPECT Rest Imagin.4 mCi Tc-99m Cardiolite IV on 11/11/2024 Stress Imaging 25.0 mCi Tc-99m Cardiolite IV on 11/10/2024 Exercise Protocol: 0.4 mg Lexiscan given IV Heart Rate (bpm): Rest: 62 Max: 88 PMHR: 61 Blood Pressure: Rest: 144/98 Max: 144/98 Symptoms: Rest and peak stress ECG findings were pending and the exercise portion of the study was pending per attending physician [facility] . For more details please see separate cardiac stress test report. FINDINGS: QUALITY OF STUDY: Fair PERFUSION DEFECT: yes LOCATION: Inferior SIZE: Moderate SEVERITY: Moderate TYPE: Fixed WALL MOTION: LV SIZE: 121 mL. TID / TCD: 1.1 LVEF: Calculated EF 64%. SUMMARY: Myocardial perfusion imaging study CONCLUSION: This report was transmitted to the referring physician at the report approval time, and the office called to confirm receipt. -Negative myocardial perfusion stress study for ischemia. -Abnormal myocardial perfusion study -Fixed inferior perfusion defect that might be artifact. -Normal global left ventricle systolic function -No TID Dictated by: Cuba Weir MD on 11/13/2024 at 15:02 Approved by: Cuba Weir MD on 11/13/2024 at 15:08 Dictated By: CUBA WEIR M.D. Signed By: 11/13/24 1509 DD/ 1508 TD/TT: Assistant Professor Of Mathematics: [facility] HospitalRadiology Study observation (narrative)[facility] ROSENDA PERF SPECT REST STROrdered By: Radiologist Radiology on 22-64-2705IKUX [email or web address] Work Phone: Orders Onlyon 05-19-5146Vfaeql [id number] Fahad Sotelo 1950 M Date Provider Department Center 11/13/2024 [id number], HISTORICAL CARD [facility] Family History Problem Relation Age of Onset Coronary artery disease Other Stroke Other Heart attack Other Family Status - Relation Status Age at Mother Father OtherNormalUniversity of Mission Regional Medical CenterCNCOon 38-46-4599DQVOCrtfrc Text NormalVeterans Health AdministrationCNPNon 50-49-4772USZLNffktvjbx (GENSAV) FAHAD SOTELO ([id number]) 1950 M Date Time Provider Department 10/29/24 CHRIS CLEMENTS GENSAKatelynn During your visit today, we recorded the following information about you: Aislinn Lcuiano 10/29/2024 12:26 PM Addendum Pt needs thinner clearance outside provider letter sent via e-fax will await approval before scheduling surgery date. Aislinn Luciano 11/18/2024 3:28 PM Signed MustaphaAislinn west 11/18/2024 3:28 PM Signed Pt cleared will call to schedule surgery. Aislinn Luciano 11/19/2024 11:00 AM Signed Spoke with pt scheduled for surgery. Sandra Daniel 11/21/2024 9:36 AM Signed Ian from Pre Admission calling in stating that the patient is telling them that he was supposed to be scheduled for surgery in December but he is showing scheduled for 12/01/2024. Patient has also been scheduled for [facility] appointment on 12/17/2024. Please call Ian or [facility] back at [phone] and assist with this. Aislinn Luciano 11/21/2024 11:20 AM Signed Spoke w [facility] sx daTE IS 01-01-25 AV OR sent case message to correct Allergies As of Date: 10/29/2024 Noted Allergy Reaction BEE POLLEN 01/30/2014 7 [...] MA - Fully Assessed Reason for Visit: Schedule Surgery [1330] Primary Visit Diagnosis:Non-recurrent unilateral inguinal hernia without obstruction or gangrene [K40.90] Order(s):SURGICAL REQUEST - ELECTIVE (09/2019) [[id number]] Order #: [id number]: 1 Prescriptions as of 11/21/2024 - trospium (SANCTURA) 20 mg tablet Take [...] once daily. Problem List As Of Date 10/29/2024 Noted Resolved Shoulder weakness [R29.898] 03/12/2017 Brachial [...] of right shoulder*04/12/2021 Encounter Status:Closed by AISLINN LUCIANO on 11/19/24[facility] 73-10-8225QMTIKgvddw Visit (LOORRM) FAHAD SOTELO ([id number]) 1950 M Date Time Provider Department 10/28/24 [...] right clavicle with routine healing, subsequent encounter [K18.338X] Order(s):XR CLAVICLE 2V RIGHT [[id number]] Order #: [id number] FUTURE Prescriptions as of 10/28/2024 - trospium (SANCTURA) 20 mg tablet Take 1 tablet by mouth two times a day. - plecanatide (TRULANCE) 3 mg tablet Take 1 tablet by mouth once daily. - nitroglycerin subl (more content not included)...Normal[facility] Panel InformationOrdered By: Radiologist Radiology on 63-23-7057MMWK [email or web address] Work Phone: XR CLAVICLE 2V RTon 10-28-2024* * *Final Report* * * DATE OF [...] are again seen. IMPRESSION: CONTINUED FRACTURE HEALING. Assistant Professor Of Mathematics: DEEPIKA Transcribe Date/Time: Oct 28 2024 5:02P Dictated by : MARIO HODGES MD This examination was interpreted and the report reviewed and electronically signed by: MARIO HODGES MD on Oct 28 2024 5:04PM EST [id number]^AGFA_IDC^SI^ACNCCFRadiology, Radiologist, - 10/28/2024 * * *Final Report* [...] are again seen. IMPRESSION: CONTINUED FRACTURE HEALING. Assistant Professor Of Mathematics: PSCB Transcribe Date/Time: Oct 28 2024 5:02P Dictated by : MARIO HODGES MD This examination was interpreted and the report reviewed and electronically signed by: MARIO HODGES MD on Oct 28 2024 5:04PM EST [id number]^AGFA_IDC^SI^ACN [facility] HealthcareXR CLAVICLE 2V RT* * *Final Report* * * DATE OF [...] are again seen. IMPRESSION: CONTINUED FRACTURE HEALING. Assistant Professor Of Mathematics: DEEPIKA Transcribe Date/Time: Oct 28 2024 5:02P Dictated by : MARIO HODGES MD This examination was interpreted and the report reviewed and electronically signed by: MARIO HODGES MD on Oct 28 2024 5:04PM EST [id number]_IDCSIACNNormalTrinity Health System West Campusiology Study observation (narrative)[facility] HealthcareXR Clavicle - right 2 Viewson 10-28-2024 IMPRESSION: CONTINUED FRACTURE HEALING. Assistant Professor Of Mathematics: [facility] Transcribe Date/Time: Oct 28 2024 5:02P Dictated by : MARIO HODGES MD This examination was interpreted and the report reviewed and electronically signed by: MARIO HODGES MD on Oct 28 2024 5:04PM EST DIVISION OF RADIOLOGY* * *Final Report* * * DATE OF [...] spine sternum are again seen. DIVISION OF RADIOLOGYProvider, [facility] [place] - 10/28/2024 * * *Final Report* * [...] again seen. IMPRESSION IMPRESSION: CONTINUED FRACTURE HEALING. Assistant Professor Of Mathematics: PSCB Transcribe Date/Time: Oct 28 2024 5:02P Dictated by : MARIO HODGES MD This examination was interpreted and the report reviewed and electronically signed by: MARIO HODGES MD on Oct 28 2024 5:04PM [facility] HospitalRadiology Study observation (narrative)[facility] YoungstownCNOVon 37-14-8947KKRQKyabbp Visit (GENSAV) FAHAD SOTELO ([id number]) 1950 M Date Time Provider Department 10/24/24 1:00 PM CHRIS CLEMENTS During your visit today, [...] shoulder*04/12/2021 Encounter Status:Closed by CHRIS CLEMENTS on 10/24/24[facility] Visiton 98-94-5274Sbdvki-up [id number] Fahad Sotelo 1950 M Date Provider Department Center 10/22/2024 166-BOZENA DOMINGO [facility] Family History Problem Relation Age of Onset Coronary artery disease Other Stroke Other Heart attack Other Family Status - Relation Status Age at Mother Father Other Level of Service:97477 [facility] OFFICE/OUTPATIENT ESTABLISHED LOW MDM 20 MIN Reason for Visit and Comments: Coronary Artery Disease [187] Follow-up [773138] - Patient is here today for an early appointment for complaints of chest pain Chest Pain [483029] - Constant Left sided chest pain. Denies any other symptoms. Patient had x-ray on Sunday Hypertension [291730] Hyperlipidemia [182] Chronic ischemic heart disease [Other] Fall [418773] - 1 month ago fell on right shoulder and broke clavicleSsm [facility] HospitalXR CHEST 2Von 10-26-[address] [address] XRay Report Signed Patient: FAHAD SOTELO MR#: [id number] : 1950 Acct:[id number] Age/Sex: 74 / M ADM Date: 10/20/24 Loc: LAB Attending Dr: STANTON VELASCO Ordering Physician: STANTON VELASCO Date of Service: 10/20/24 Procedure(s): XR chest 2V Accession Number(s): [id number] cc: STANTON VELASOC [address] [address] Patient Name: FAHAD SOTELO MRN: [id number] date: 1950 Sex: M Assigned Patient Location: LAB Current Patient Location: LAB Accession/Order Number: [id number] Exam Date: 10/20/2024 10:30 Report Date: 10/20/2024 [...] visualized. Patient has a right shoulder prosthesis. Erie pins are present at the humeral head on the left. Degenerative changes are noted at the spine. XR/XR chest 2V IMPRESSION: NO ACUTE CARDIOPULMONARY ABNORMALITY. Impression dictated by: Christina Sarabia M.D. 10/20/2024 11:05 AM Dictation Location: [place] [address] Electronically authenticated by: [id number] Y Date: 10/20/2024 11:05 Dictated By: Christina Sarabia M.D. Signed By: 10/20/24 1108 DD/ 1105 TD/TT: Assistant Professor Of Mathematics:TBHRadiology, Radiologist, - 10/20/[address] [address] XRay Report Signed Patient: FAHAD SOTELO MR#: [id number] : 1950 Acct:[id number] Age/Sex: 74 / M ADM Date: 10/20/24 Loc: LAB Attending Dr: STANTON VELASCO Ordering Physician: STANTON VELASCO Date of Service: 10/20/24 Procedure(s): XR chest 2V Accession Number(s): [id number] cc: STANTON VELASCO [place] [id number] Patient Name: FAHAD SOTELO MRN: [id number] date: 1950 Sex: M Assigned Patient Location: LAB Current Patient Location: LAB Accession/Order Number: [id number] Exam Date: 10/20/2024 10:30 Report Date: 10/20/2024 [...] visualized. Patient has a right shoulder prosthesis. Erie pins are present at the humeral head on the left. Degenerative changes are noted at the spine. XR/XR chest 2V IMPRESSION: NO ACUTE CARDIOPULMONARY ABNORMALITY. Impression dictated by: Christina Sarabia M.D. 10/20/2024 11:05 AM Dictation Location: [place] [address] Electronically authenticated by: [id number] Y Date: 10/20/2024 11:05 Dictated By: Christina Sarabia M.D. Signed By: 10/20/24 1108 DD/ 04 TD/TT: Assistant Professor Of Mathematics: [facility] HealthcareRadiology Study observation (narrative)[facility] HealthcareXR CHEST 2V Ordered By: Radiologist Radiology on 73-19-9033SFFX [facility] Work Phone: cNOV [phone] Visit (LOORRM) FAHAD SOTELO ([id number]) 1950 M Date Time Provider Department 09/19/24 [...] Duration Units: Weeks Frequency: Intermittent Intervention/Comfort measure: Reposition;Relaxation;Positioning;Cold The patient's past medical history, surgical history, [...] subsequent encounter [S42.034D] Order(s):XR CLAVICLE 2V RIGHT [[id number]] Order #: [id number] FUTURE Prescriptions as of 09/19/2024 - trospium [...] of right knee [M17.11] (more content not included)...Normal Veterans Health AdministrationNo Panel InformationOrdered By: Radiologist Radiology on 14-45-1317AOBVRanken Jordan Pediatric Specialty Hospital Work Phone: No Panel Informationon 47-57-5920Ewsjtxwtc Study observation (narrative)[facility] HealthcareXR CLAVICLE 2V RTon 09-19-2024* * *Final Report* * * DATE OF [...] DISTAL RIGHT CLAVICLE FRACTURE WITH EARLY HEALING. Assistant Professor Of Mathematics: DEEPIKA Transcribe Date/Time: Sep 19 2024 10:47A Dictated by : MARIO HODGES MD This examination was interpreted and the report reviewed and electronically signed by: MARIO HODGES MD on Sep 19 2024 10:50AM EST [id number]^AGFA_IDC^SI^ACNCCFRadiology, Radiologist, - 09/19/2024 * * *Final Report* * [...] DISTAL RIGHT CLAVICLE FRACTURE WITH EARLY HEALING. Assistant Professor Of Mathematics: [facility]BINKerry Transcribe Date/Time: Sep 19 2024 10:47A Dictated by : MARIO HODGES MD This examination was interpreted and the report reviewed and electronically signed by: MARIO HODGES MD on Aug 8 2025 10:50AM EST [id number]^AGFA_IDC^SI^ACN [facility]ty HospitalXR CLAVICLE 2V RT* * *Final Report* * * DATE OF [...] DISTAL RIGHT CLAVICLE FRACTURE WITH EARLY HEALING. Assistant Professor Of Mathematics: DEEPIKA Transcribe Date/Time: Sep 19 2024 10:47A Dictated by : MARIO HODGES MD This examination was interpreted and the report reviewed and electronically signed by: MARIO HODGES MD on Sep 19 2024 10:50AM EST [id number]_IDCSIACNNormalVeterans Health AdministrationXR Clavicle - right 2 Viewson 51-54-0489MDMKNTQGFE: SUBACUTE DISTAL RIGHT CLAVICLE FRACTURE WITH EARLY HEALING. Assistant Professor Of Mathematics: PSCKerry Transcribe Date/Time: Sep 19 2024 10:47A Dictated by : MARIO HODGES MD This examination was interpreted and the report reviewed and electronically signed by: MARIO HODGES MD on Sep 19 2024 10:50AM EST DIVISION OF RADIOLOGY* * *Final Report* * * DATE OF [...] median sternotomy are again seen. DIVISION OF RADIOLOGYProvider, [facility] [place] - 09/19/2024 * * *Final Report* * [...] DISTAL RIGHT CLAVICLE FRACTURE WITH EARLY HEALING. Assistant Professor Of Mathematics: DEEPIKA Transcribe Date/Time: Sep 19 2024 10:47A Dictated by : MARIO HODGES MD This examination was interpreted and the report reviewed and electronically signed by: MARIO HODGES MD on Sep 19 2024 10:50AM EST [facility] YoungstownCNOVmilad 32-36-6970BLYOGbpyvn Visit (LOORRM) FAHAD SOTELO ([id number]) 1950 M Date Time Provider Department 08/29/24 [...] Duration Units: Weeks Frequency: Continuous Intervention/Comfort measure: Reposition;Relaxation;Positioning;Cold HISTORY: Fahad Sotelo has complains of 2-week [...] Order(s):XR SHOULDER ORTHO 4V AP/TRUE AP/LAT/OUTLET RIGHT [[id number]] Order #: [id number] FUTURE SLING, ARM [[id number]] Order #: [id number] Prescriptions as of 08/29/2024 - trospium (SANCTURA) [...] twice daily. - met (more content not included)...Normal[facility] Panel InformationOrdered By: Radiologist Radiology on 94-13-0524PIRVRanken Jordan Pediatric Specialty Hospital Work Phone: XR SHLDR 4V AP/LUCITA/LAT/OUTLET RTon 08-29-2024* * *Final Report* * * DATE OF [...] hardware complication. Healing nondisplaced distal clavicle fracture. Assistant Professor Of Mathematics: DEEPIKA Transcribe Date/Time: Aug 29 2024 9:14A Dictated by : YUAN PATINO DO This examination was interpreted and the report reviewed and electronically signed by: YUAN PATINO DO on Aug 29 2024 9:16AM EST [id number]^AGFA_IDC^SI^ACNCCFRadiology, Radiologist, - 08/29/2024 * * *Final Report* [...] hardware complication. Healing nondisplaced distal clavicle fracture. Assistant Professor Of Mathematics: PSCB Transcribe Date/Time: Aug 29 2024 9:14A Dictated by : YUAN PATINO DO This examination was interpreted and the report reviewed and electronically signed by: YUAN PATINO DO on Aug 29 2024 9:16AM EST [id number]^AGFA_IDC^SI^ACN [facility]XR SHLDR 4V AP/LUCITA/LAT/OUTLET RT* * *Final Report* * * DATE OF [...] hardware complication. Healing nondisplaced distal clavicle fracture. Assistant Professor Of Mathematics: DEEPIKA Transcribe Date/Time: Aug 29 2024 9:14A Dictated by : YUAN PATINO DO This examination was interpreted and the report reviewed and electronically signed by: YUAN PATINO DO on Aug 29 2024 9:16AM EST [id number]_IDCSIACNNormalTrinity Health System West Campusiology Study observation (narrative)[facility] HealthcareXR Shoulder - right 4 Viewson 08-29-2024 IMPRESSION: Reverse RIGHT shoulder arthroplasty without hardware complication. Healing nondisplaced distal clavicle fracture. Assistant Professor Of Mathematics: DEEPIKA Transcribe Date/Time: Aug 29 2024 9:14A Dictated by : YUAN PATINO DO This examination was interpreted and the report reviewed and electronically signed by: YUAN PATINO DO on Aug 29 2024 9:16AM EST DIVISION OF RADIOLOGY* * *Final Report* * * DATE OF [...] Visualized RIGHT lung is clear. DIVISION OF RADIOLOGYProvider, [facility] [place] - 08/29/2024 * * *Final Report* * [...] hardware complication. Healing nondisplaced distal clavicle fracture. Assistant Professor Of Mathematics: DEEPIKA Transcribe Date/Time: Aug 29 2024 9:14A Dictated by : YUAN PATINO DO This examination was interpreted and the report reviewed and electronically signed by: YUAN PATINO DO on Aug 29 2024 9:16AM EST [facility]stownRadiology Study observation (narrative)[facility] ANORECTAL MANOMETRYon 08-26-2024I have reviewed, verified, and confirmed the results of anorectal manometry, rectal sensation, toneand compliance testing and EMG testing. I agree with the impression as written above. Rose Marie Pruett MD Pelvic Floor Colon & Rectal SurgeryPROVATIONReason for testing: constipation and abdominal pain/bloating Ileoanal [...] test results and treatment plan. Kristal Hare APRN.[facility] ANORECTAL MANOMETRYOrdered By: Rose Marie Pruett on 93-46-1561Xrpqhlftk Clinic Work Phone: Radiology Study observation (narrative)[facility] Work Phone: CNOVon 71-24-5239MRUDKmthwj Visit ([facility]) FAHAD SOTELO ([id number]) 1950 M Date Time Provider Department 08/26/24 1:[address] 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 Dye CYSTO.PANENDO 05/31/2022 CYSTO.PANENDO N/A 06/04/2023 CYSTOSCOPY 03/29/2017 Dr. Fady LEE [facility] LEFT HEART CATH,PERCUTANEOUS 05/11/2003 Cardiac [...] done by Nava Back LPN, [place] [facility] Current Outpatient Medications Medication Sig [...] for this visit. AL (more content not included)...NormalPromedica Memorial HospitalvelandXR SHOULDER RT MIN 2Von 60-58-6498Pkq[address] [address] XRay Report Signed Patient: FAHAD SOTELO MR#: [id number] : 1950 Acct:[id number] Age/Sex: 73 / M ADM Date: 08/18/24 Loc: RAD Attending Dr: STANTON VELASCO Ordering Physician: STANTON VELASCO Date of Service: 08/18/24 Procedure(s): XR shoulder RT min 2V Accession Number(s): [id number] cc: STANTON VELASCO The [place] [id number] Patient Name: FAHAD SOTELO MRN: [id number] date: 1950 Sex: M Assigned Patient Location: RAD Current Patient Location: RAD Accession/Order Number: [id number] Exam Date: 08/18/2024 16:43 Report Date: 08/18/2024 [...] Morgan M.D. 08/18/2024 4:47 PM Dictation Location: [place] [address] Electronically authenticated by: [id number] Y Date: 08/18/2024 16:47 Dictated By: Daniel Morgan D.O. Signed By: 08/18/241648 DD/ 46 TD/TT: Assistant Professor Of Mathematics:TBHRadiology, Radiologist, MD - 08/18/[address] [address] XRay Report Signed Patient: FHAAD SOTELO MR#: [id number] : 1950 Acct:[id number] Age/Sex: 73 / M ADM Date: 08/18/24 Loc: RAD Attending Dr: STANTON VELASCO Ordering Physician: STANTON VELASCO Date of Service: 08/18/24 Procedure(s): XR shoulder RT min 2V Accession Number(s): [id number] cc: STANTON VELASCO [place] [id number] Patient Name: FAHAD SOTELO MRN: [id number] date: 1950 Sex: M Assigned Patient Location: RAD Current Patient Location: RAD Accession/Order Number: [id number] Exam Date: 08/18/2024 16:43 Report Date: 08/18/2024 [...] Morgan M.D. 08/18/2024 4:47 PM Dictation Location: [place] [address] Electronically authenticated by: [id number] Y Date: 08/18/2024 16:47 Dictated By: Daniel Morgan D.O. Signed By: 08/18/241648 DD/ 46 TD/TT: Assistant Professor Of Mathematics: [facility] HealthcareRadiology Study observation (narrative)[facility] HealthcareXR SHOULDER RT MIN 2VOrdered By: Radiologist Radiology on 69-71-6660RTNO Healthcare Work Phone: Orders Onlyon 37-12-4428Eohvej [id number] Fahad Sotelo 1950 M Date Provider Department Center 07/14/2024 Karyn-AIDEN SERRANO [facility] Family History Problem Relation Age of Onset Coronary artery disease Other Stroke Other Heart attack Other Family Status - Relation Status Age at OtherNormalUniDayton VA Medical CenterAmbulatory Visit Summaryon 26-89-8364Zftrmaorkq Visit SummaryAmbulatory Visit Summary FAHAD SOTELO :1950 Visit Date:06/30/2024 Ambulatory Visit Instructions Your Diagnosis Diarrhea Generalized abdominal pain Straining during bowel movements History of colon polyps Abdominal cramping Your Care Team Attending Physician - Lyndsey CAMARGO, Hema Shelby Primary Care Physician - STANTON VELASCO [...] Someone Will Contact You Regarding These Appointments [facility] External Ambulatory Referral, Referring provider preference, Colon [...] By Mouth Every day Contact prescribing physician ifquestions or concerns Unchanged tenapanor (Ibsrela 50 mg [...] you for choosing us for your care. [facility] EastGastroenterology Office/Clinic Noteon 69-69-7307Kqajpaawwoaoipcb Office/Clinic NoteGastroenterology Office/Clinic Note Chief Complaint Diarrhea, abdominal pain, urgency and gurgling. [facility] Staff EST, 73 year old male who presents today for a 12 week follow up with c/o diarrhea since taking theIbsrela. Patient c/o diarrhea, urgency, bloating and stomach [...] Diarrhea, unspecified) Ordered: Current tobacco non-user 1036F [facility] External Ambulatory Referral Most recent diastolic blood pressure <80 mm Hg 3078F Systolic BP <130 mm Hg (Most Recent) 3074F 2. Generalized abdominal pain (R10.84: Generalized abdominal pain) Ordered: Current tobacco non-user 1036F [facility] External Ambulatory Referral Most recent diastolic blood pressure <80 mm Hg 3078F Systolic BP <130 mm Hg (Most Recent) 3074F 3. Straining during bowel movements (R19.8: Other specified symptoms and signs involving the digestive system and abdomen) Ordered: Current tobacco non-user 1036F [facility] External Ambulatory Referral Most recent diastolic blood pressure <80 mm Hg 3078F Systolic BP <130 mm Hg (Most Recent) 3074F 4. History of colon polyps (Z86.0100: Personal history of colon polyps, unspecified) Ordered: Current tobacco non-user 1036F [facility] External Ambulatory Referral Most recent diastolic blood pressure <80 mm Hg 3078F Systolic BP <130 mm Hg (Most Recent) 3074F 5. Abdominal cramping (R10.9: Unspecified abdominal pain) Ordered: [facility] External Ambulatory Referral Will schedule anorectal manometry [...] Cigarettes, 06/30/2024 Family History Family history is negativeRegency Hospital Cleveland EastComment on above: Result Comment: Electronically Signed By: Lyndsey CAMARGO, Hema Appiah.br\Date and Time Signed: 07/01/2511:42 EDTCA ECHO DOPPLER COMPLETEon 16-05-8756StbHouston[place] [address] Cardiology Report Signed Patient: FAHAD SOTELO MR#: [id number] : 1950 Acct:[id number] Age/Sex: 73 / M ADM Date: 06/05/24 Loc: CARD Attending Dr: Tamanna Joshua M.D. Ordering Physician: Tamanna Joshua M.D. Date of Service: 06/05/24 Procedure(s): CA echo doppler complete Accession Number(s): [id number] cc: STANTON VELASCO ; Tamanna Joshua M.D. Patient Name: FAHAD SOTELO MR#: [id number] : 1950 Exam Date: 06/05/2024 Ordering Doctor: [...] ADOLFO DIAZ Signed By: 06/06/24943 DD/ 2 (more content not included)...TBHRadiology, Radiologist, MD - 06/06/2024 [place] [address] Cardiology Report Signed Patient: FAHAD SOTELO MR#: [id number] : 1950 Acct:[id number] Age/Sex: 73 / M ADM Date: 06/05/24 Loc: CARD Attending Dr: Tamanna Joshua M.D. Ordering Physician: Tamanna Joshua M.D. Date of Service: 06/05/24 Procedure(s): CA echo doppler complete Accession Number(s): [id number] cc: STANTON VELASCO ; Tamanna Joshua M.D. Patient Name: FAHAD SOTELO MR#: [id number] : 1950 Exam Date: 06/05/2024 Ordering Doctor: [...] DIAZ Signed By: 06/06/24943 DD/ 2 TD/TT: Assistant Professor Of Mathematics: [facility] HealthcareRadiology Study observation (narrative)[facility] Specialty HospitalCA ECHO DOPPLER COMPLETEOrdered By: Radiologist Radiology on [id number] Work Phone: Office Visiton [id number] Fahad Sotelo 1950 M Date Provider Department Center 05/21/2024 271-HIPOLITO, TAMANNA CARD [facility] Family History Problem Relation Age of Onset Coronary artery disease Other Stroke Other Heart attack Other Family Status - Relation Status Age at Other Level of Service:19803 [place] OFFICE/OUTPATIENT ESTABLISHED LOW MDM 20 [facility]24 Ambulatory Visit SummaryAmbulatory Visit Summary FAHAD SOTELO :1950 Visit Date:05/14/2024 Ambulatory Visit Instructions Your Diagnosis Abdominal pain Diarrhea Straining during bowel movements History of colon polyps Generalized abdominal pain Your Care Team Attending Physician - Hema Solorio MD. Primary Care Physician - STANTON [...] EDT With: Lyndsey CAMARGO, Hema Shelby Where: [facility] [address] [place] [address] [place] [phone]- You Need to Complete the Following [...] By Mouth Every day Contact prescribing physician ifquestions or concerns Allergies No Known Medication Allergies [...] you for choosing us for your care. [facility] Ambulatory Visit Summary FAHAD SOTELO :1950 Visit Date:05/14/2024 Ambulatory Visit Instructions Your Diagnosis Abdominal pain Diarrhea Straining during bowel movements History of colon polyps Generalized abdominal pain Your Care Team Attending Physician - Hema Solorio MD. Primary Care Physician - STANTON [...] EDT With: Lyndsey CAMARGO, Hema Shelby Where: [facility] [address] Suite [facility] [place] [id number]- You Need to Complete the Following XR [...] By Mouth Every day Contact prescribing physician ifquestions or concerns Allergies No Known Medication Allergies [...] you for choosing us for your care. [facility] Office/Clinic Noteon [id number] Office/Clinic NoteGastroenterology Office/Clinic Note Chief Complaint Constipation, abdominal pain. Insurance does not cover Linzess. Patient also has Trulance prescribed by DC. HPI Staff EST, 73 year old male who presents today for a sick call for complaints of diarrhea and abdominal pain. DC prescribes Trulance. Patient states that before his visit on 05/05/[address] Solorio he was given samples by Dr Velasco ofLinzess 290. Patient also states that a few weeks prior to 05/05/24 new patient visit he was at [facility] ER x 2 and was told that he had a bowel blockage and was given 2 enemas. Patient had been taking Linzess [address] Velasco. -Started Linzess 145, patient states that he is now having constipation with overflow. had diarrheaover the week but now backed up again [...] Cigarettes, 05/14/2024 Family History Family history is negativeRegency Hospital Cleveland EastComment on above: Result Comment: Electronically Signed By: Hema Solorio MD\.br\Date and Time Signed: 05/14/2512:40 EDTXR Abdomen 1 Viewon [id number] Abdomen 1 View Exam Date/Time: 05/14/2024 14:34 EDT Reason for Exam: R10.9, R19.7;Abdominal distention Report IMPRESSION: CHOLELITHIASIS. CLINICAL HISTORY: Abdominal distention, R10.9, R19.7 COMPARISON: NONE. FINDINGS: Gas and stool in colon. No diffuse small bowel dilatation or mass effect. Multiple calculi identified within gallbladder. No discrete calculi visualized over kidneys bilaterally. Probable phleboliths in pelvic inlet. Internal fixation lower lumbar spine. Technical Comments: satinder Sharpe in mGy = . DAP = . Ordering Provider: Hema Solorio FINAL REPORT Dictated: 05/14/2024 3:24 pm Signer Anderson CAMARGO Signed (Electronic Signature): 05/14/2024 3:24 pm Signed by: Anderson Perry MD Transcribed by: TAHIR Technologist: [facility] Systemfabi [facility] CampusAmbulatory Visit Summaryon [id number] Visit SummaryAmbulatory Visit Summary FAHAD SOTELO :1950 Visit Date:05/05/2024 Ambulatory Visit Instructions Your Diagnosis Constipation Straining during bowel movements History of colon polyps Your Care Team Attending Physician - Lyndsey CAMARGO, Hema Shelby Primary Care Physician - STANTON VELASCO [...] 1 Capsules By Mouth Every day Constipation Strainingduring bowel movements History of colon polyps Refills: 9 Pickup at [facility] Unchanged ascorbic acid (Vitamin C) Every [...] By Mouth Every day Contact prescribing physician ifquestions or concerns Pharmacy Information [facility]: [address] [place], [place] [id number] [phone] Allergies No Known Medication Allergies Problems Ongoing [...] you for choosing us for your care. [facility] Office/Clinic Noteon [id number] Office/Clinic NoteGastroenterology Office/Clinic Note Chief Complaint Ref by Marcin for constipation HPI Staff NEW, 73 year old male who presents today for a referral by Marcin for complaints of constipation. Denies Blood Thinners Denies GLP-1 Agonists -CBC and CMP completed outside 02/2024- normal Constipation: How many BM a day or a week: lately, it's been every other day, with stool softner and Dulcolax andconstulose Constant? Or alternate with normal BM or diarrhea: constant. What treatment have you tried before: Trulance 3mg, Linzess 290mcg, miralax, lactulose, docusate, senna and Dulcolax Colonoscopy @ [facility] 10/02/21 Impression: 2 small polyps [...] Daily, # 30 cap(s), Refills(s) 9, Pharmacy: [facility], 175, cm, 05/05/24 12:57:00 EDT, Height/Length Dosing, 99, kg, 05/05/24 12:57:00 EDT, Weight Dosing E&M of New Patient Moderate 45-59 Min 19037 2. Straining during bowel movements (R19.8: Other specified symptoms and signs involving the digestive system and abdomen) Ordered: linaclotide, 145 mcg = 1 cap(s), Oral, Daily, # 30 cap(s), Refills(s) 9, Pharmacy: [facility], 175, cm, 05/05/24 12:57:00 EDT, Height/Length Dosing, 99, kg, 05/05/24 12:57:00 EDT, Weight Dosing E&M of New Patient Moderate 45-59 Min 73101 3. History of colon polyps (Z86.0100: Personal history of colon polyps, unspecified) Ordered: linaclotide, 145 mcg = 1 cap(s), Oral, Daily, # 30 cap(s), Refills(s) 9, Pharmacy: [facility], 175, cm, 05/05/24 12:57:00 EDT, Height/Length Dosing, 99, kg, 05/05/24 12:57:00 EDT, Weight Dosing E&M of New Patient Moderate 45-59 Min 18685 Stop linaclotide Start Linzess 145 mcg daily [...] Use:., 05/05/2024 Family History Family history is negativeNormBethesda North HospitalComment on above: Result Comment: Electronically Signed By: Lyndsey CAMARGO, Hema Appiah.br\Date and Time Signed: 05/05/2512:18 Bekah 20-59-0012ZDEVRtdfte Visit (SHELLY) MCGIRT,FAHAD A ([id number]) 1950 M Date Time Provider Department 04/11/24 [...] shoulder*04/12/2021 Encounter Status:Closed by CHRIS CLEMENTS on 04/11/24[facility] [id number] (MARILY) FAHAD SOTELO ([id number]) 1950 M Date Time Provider Department 03/17/24 FADY DYE During your visit today, we recorded the following information about you: Luzma Scott 03/17/2024 9:17 AM Signed Orders faxed to [facility] [phone] Allergies As of Date: 03/17/2024 Noted Allergy [...] shoulder*04/12/2021 Encounter Status:Closed by LUZMA SCOTT on 03/17/24[facility] CHEST WO CONon [id number] [address] [address] Scan Report Signed Patient: FAHAD SOTELO MR#: [id number] : 1950 Acct:[id number] Age/Sex: 73 / M ADM Date: 03/06/24 Loc: CT Attending Dr: STANTON VELASCO Ordering Physician: STANTON VELASCO Date of Service: 03/06/24 Procedure(s): CT chest wo con Accession Number(s): [id number] cc: STANTON VELASCO [address] [address] Patient Name: FAHAD SOTELO MRN: [id number] date: 1950 Sex: M Assigned Patient Location: CT Current Patient Location: Accession/Order Number: [id number] Exam Date: 03/06/2024 14:12 Report Date: 03/07/2024 [...] granulomatous disease. 3. Cholelithiasis. Electronically authenticated by: GERSON AMADO Date: 03/07/2024 06:38 Dictated By: Gerson Amado M.D. Signed By: 03/07/2441 DD/ 7 TD/TT: Assistant Professor Of Mathematics:TBHRadiology, Radiologist, MD - 03/07/2024 [place] [address] CT Scan Report Signed Patient: FAHAD SOTELO MR#: [id number] : 1950 Acct:[id number] Age/Sex: 73 / M ADM Date: 03/06/24 Loc: CT Attending Dr: STANTON VELASCO Ordering Physician: STANTON VELASCO Date of Service: 03/06/24 Procedure(s): CT chest wo con Accession Number(s): [id number] cc: STANTON VELASCO The [address] [address] Patient Name: FAHAD SOTELO MRN: [id number] date: 1950 Sex: M Assigned Patient Location: CT Current Patient Location: Accession/Order Number: [id number] Exam Date: 03/06/2024 14:12 Report Date: 03/07/2024 [...] granulomatous disease. 3. Cholelithiasis. Electronically authenticated by: GERSON AMADO Date: 03/07/2024 06:38 Dictated By: Gerson Amado M.D. Signed By: 03/07/2441 DD/ TD/TT: Assistant Professor Of Mathematics: [facility] HospitalRadiology Study observation (narrative)[facility] CHEST WO CONOrdered By: Radiologist Radiology on [id number] [employer] Work Phone: cNOVon [phone] Visit (GENSAV) FAHAD SOTELO ([id number]) 1950 Gertrude Date Time Provider Department 02/26/24 1:45 PM CHRIS CLEMENTS During your visit today, we recorded the following information about you: Pulse Blood pressure Weight Height 57/minute 111/70 99.8 kg 1.765 m Chris Clements MD 02/26/2024 3:16 PM Signed Patient is referred by Stanton Velasco II, MD with recent right groin pain. A copy of dictation with recommendations to above by [employer] medical record US mail. No prior groin [...] hernia diagnosed clinically Referring Provider: FADY DYE [[id number]] Allergies As of Date: 02/26/2024 Noted Allergy [...] groin pain [R10.30] Order(s):CONSULT TO GENERAL SURGERY [1573] Order #: [id number]: 1 Prescriptions as of 02/26/2024 - trospium [...] shoulder*04/12/2021 Encounter Status:Closed by CHRIS CLEMENTS on 02/26/24NoWilson Memorial HospitalCNPNon [id number] (UROLAV) FAHAD SOTELO ([id number]) 1950 M Date Time Provider Department 02/25/24 FADY DYE UROESAU During your visit today, we recorded the following information about you: Rachel Palencia MA 02/25/2024 4:43 PM Signed We received a fax from [employer], [facility]. I have the form, from [employer], in Dr. Dye's work bin. We will need Dr. Dye's signature and date signed on the form. When I spoke with the Pt he said he will be getting his cath supplies from [facility]. [employer] is there sister store owned by [facility]. Rachel Palencia MA 02/28/2024 3:09 PM Signed Form faxed to: [phone]. Transmitted OK - Confirmation Received. We will hold onto the paperwork in our hold for two (2) week bin. Afterwards, it will be sent to [facility] for scanning into the pt's chart. Luzma Scott 03/04/2024 11:43 AM Signed [facility] and [facility] stated that a medical necessity form needs to be filled out. Shameka Vincent 03/07/2024 11:39 AM Signed Joseline from patients insurance calling stating the patient is trying to get his cath supplies and [place] need the medical necessity forms sent to [...] Assessed Reason for Visit: Fax Received - [facility] [Other] Prescriptions as of 03/07/2024 - trospium [...] shoulder*04/12/2021 Encounter Status:Closed by RACHEL PALENCIA on 02/28/24NoWilson Memorial HospitalKeanu [id number] (MARILY) FAHAD SOTELO ([id number]) 1950 M Date Time Provider Department 02/22/24 FADY DYE During your visit today, we recorded the following information about you: Luzma Scott 02/22/2024 10:42 AM Signed Faxed orders for catheter supplies to [phone] Allergies As of Date: 02/22/2024 Noted Allergy [...] RN - Fully Assessed 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 He is requesting caths. He states that he needs 16F. Please assist, thank you Sheree Perdomo RN 02/20/2024 9:26 AM Signed Letter sent to [address] [place] [address] on 02/18/[address] Mejia office. Sheree [...] shoulder*04/12/2021 Encounter Status:Closed by SOURAV VALLES on 02/19/24[facility] Telephone [facility] FAHAD SOTELO ([id number]) 1950 M Date Time Provider Department 02/18/24 [...] today, catheters ordered and faxed electronically to [address] [place] [address]. Aislinn Montalvo RN BSN Allergies As of [...] shoulder*04/12/2021 Encounter Status:Closed by LUZMA SCOTT on 02/18/24[facility]CAv[facility] (INCLUDES DIFF/PLT)on 12-92-5038Wmiraalyj (Bld) [#/Vol]0.033 10*3/uLNormal0-200Quest DiagnosticsComment on above:Performed By: #### 7600, 86306, 6399 #### [facility] of [address], [address] [place] [address] Final Expense Agent: Nathanael Nguyen MDBasophils/100 WBC (Bld)0.5 %NormalQuest DiagnosticsComment on above:Performed By: #### 7600, 47117, 6399 #### [facility] of [address], [address] [place] [address] Final Expense Agent: Nathanael Nguyen MDEosinophils (Bld) [#/Vol]0.052 10*3/uLNormal 15-500Quest DiagnosticsComment on above:Performed By: #### 7600, 31560, 6399 #### [facility] of [place] [address] Final Expense Agent: Nathanael Nguyen MDEosinophils/100 WBC (Bld)0.8 %NormalQuest DiagnosticsComment on above:Performed By: #### 7600, 63552, 6399 #### [facility] of [place] [address] Final Expense Agent: Nathanael Nguyen MDErythrocyte distribution width (RBC) [Ratio] 11.8 %Pgsdrj92.0-15.0Quest DiagnosticsComment on above:Performed By: #### 7600, 83951, 6399 #### [facility] of [place] [address] Final Expense Agent: Nathanael Nguyen MDHematocrit (Bld) [Volume fraction]47.9 %Normal 38.5-50.0Quest DiagnosticsComment on above:Performed By: #### 7600, 19444, 6399 #### [facility] of [place] [address] Final Expense Agent: Nathanael Nguyen MDHemoglobin (Bld) [Mass/Vol]16.1 g/dLNormal 13.2-17.1Quest DiagnosticsComment on above:Performed By: #### 7600, 39246, 6399 #### [facility] of [address], [address] [place] [address] Final Expense Agent: Nathanael Nguyen MDLymphocytes (Bld) [#/Vol]1.892 10*3/uLNormal 850-3900Quest DiagnosticsComment on above:Performed By: #### 7600, 46065, 6399 #### [facility] of [address], [address] [place] [address] Final Expense Agent: Nathanael Nguyen MDLymphocytes/100 WBC (Bld)29.1 %NormalQuest DiagnosticsComment on above:Performed By: #### 7600, 15673, 6399 #### [facility] of [address], [address] [place] [address] Final Expense Agent: Nathanael Nguyen MDMCH (RBC) [Entitic mass]31.0 waHbklov58.0-33.0 Quest DiagnosticsComment on above:Performed By: #### 7600, 20314, 6399 #### [facility] of [address], [address] [place] [address] Final Expense Agent: Ntahanael GAMBLECHC (RBC) [Mass/Vol]33.6 g/hIZmvblf56.0-36.0 Quest DiagnosticsComment on above:Result Comment: For adults, a slight decrease in the calculated MCHC value (in the range of 30 to 32 g/dL) is most likely not clinically significant; however, it should be interpreted with caution in correlation with other red cell parameters and the patient's clinical condition.Performed By: #### 7600, 81393, 6399 #### [facility] of [place] [address] Final Expense Agent: Nathanael Nguyen MDMCV (RBC) [Entitic vol]92.3 hPZnfutj97.0-100.0 Quest DiagnosticsComment on above:Performed By: #### 7600, 26892, 6399 #### [facility] of [address], [address] [place] [address] Final Expense Agent: Nathanael Nguyen MDMonocytes (Bld) [#/Vol]0.585 10*3/uLNormal 200-950Quest DiagnosticsComment on above:Performed By: #### 7600, 12161, 6399 #### [facility] of [address], [address] [place] [address] Final Expense Agent: Nathanael Nguyen MDMonocytes/100 WBC (Bld)9.0 %NormalQuest DiagnosticsComment on above:Performed By: #### 7600, 67258, 6399 #### [facility] of [address], [address] [place] [address] Final Expense Agent: Nathanael Nguyen MDNeutrophils (Bld) [#/Vol]3.939 10*3/uLNormal 1500-7800Quest DiagnosticsComment on above:Performed By: #### 7600, 33116, 6399 #### [facility] of [address], [address] [place] [address] Final Expense Agent: Nathanael Nguyen MDNeutrophils/100 WBC (Bld)60.6 %NormalQuest DiagnosticsComment on above:Performed By: #### 7600, 08359, 6399 #### [facility] of [address], [address] [place] [address] Final Expense Agent: Nathanael Nguyen MDPlatelet mean volume (Bld) [Entitic vol]10.7 fLNormal7.5-12.5Quest DiagnosticsComment on above:Performed By: #### 7600, 62920, 6399 #### [facility] of [address], [address] [place] [address] Final Expense Agent: Nathanael Nguyen MDPlatelets (Bld) [#/Vol]201 10*3/uLNormal 140-400Quest DiagnosticsComment on above:Performed By: #### 7600, 71001, 6399 #### [facility] of [address], [address] [place] [address] Final Expense Agent: Nathanael Nguyen [facility] ([facility]) [#/Vol]5.19 10*6/uLNormal4.20-5.80 Quest DiagnosticsComment on above:Performed By: #### 7600, 54679, 6399 #### [facility] of [address], [address] [place] [address] Final Expense Agent: Nathanael Nguyen [facility] ([facility]) [#/Vol]6.5 10*3/uLNormal3.8-10.8 Quest DiagnosticsComment on above:Performed By: #### 7600, 10662, 6399 #### [facility] of [place] [address] Final Expense Agent: Nathanael Nguyen MDCOMPREHENSIVE METABOLIC PANELon 02-16-2024 Albumin [Mass/Vol]4.3 g/dLNormal3.6-5.1Quest DiagnosticsComment on above: Performed By: #### 7600, 70024, 6399 #### [facility] of [place] [address] Final Expense Agent: Nathanael Nguyen MDAlbumin/Globulin [Mass ratio]2.0 {ratio}Normal 1.0-2.5Quest DiagnosticsComment on above:Performed By: #### 7600, 41587, 6399 #### [facility] of [place] [address] Final Expense Agent: Nathanael Nguyen MDALP [Catalytic activity/Vol]58 U/LOlqksh81-031 Quest DiagnosticsComment on above:Performed By: #### 7600, 21901, 6399 #### [facility] of [place] [address] Final Expense Agent: Nathanael Nguyen MDALT [Catalytic activity/Vol]14 U/LNormal9-46 [facility] DiagnosticsComment on above:Performed By: #### 7600, 06012, 6399 #### [facility] of [address] [place] [address] Final Expense Agent: Nathanael Nguyen MDAST [Catalytic activity/Vol]13 U/WXekiad94-88 Quest DiagnosticsComment on above:Performed By: #### 7600, 79740, 6399 #### [facility] of [address], [address] [place] [address] Final Expense Agent: Nathanael Nguyen MDBilirubin [Mass/Vol]0.7 mg/dLNormal0.2-1.2 Quest DiagnosticsComment on above:Performed By: #### 7600, 07451, 6399 #### [facility] of [address], [address] [place] [address] Final Expense Agent: Nathanael Nguyen MDBUN/CREATININE RATIOSEE NOTE:Normal6-22Quest DiagnosticsComment on above:Result Comment: Not Reported: BUN and Creatinine are within reference range.Performed By: #### 7600, 63500, 6399 #### [facility] of [address], [address] [place] [address] Final Expense Agent: Nathanael Nguyen MDCalcium [Mass/Vol]9.0 mg/dLNormal8.6-10.3Quest DiagnosticsComment on above:Performed By: #### 7600, 56611, 6399 #### [facility] of [address], [address] [place] [address] Final Expense Agent: Nathanael Nguyen MDChloride [Moles/Vol]103 mmol/XVgtkin74-852 Quest DiagnosticsComment on above:Performed By: #### 7600, 32399, 6399 #### [facility] of [address], [address] [place] [address] Final Expense Agent: Nathanael Nguyen MDCO2 [Moles/Vol]31 mmol/RPvreki84-44Wqfks DiagnosticsComment on above:Performed By: #### 7600, 80471, 6399 #### [facility] of [address], [address] [place] [address] Final Expense Agent: Nathanael Merati MDCreatinine [Mass/Vol]0.75 mg/dLNormal0.70-1.28 Quest DiagnosticsComment on above:Performed By: #### 1630, 07158, 6399 #### [facility] [place] [address] Final Expense Agent: Nathanael Nguyen MDGFR/1.73 sq M.predicted among non-blacks MDRD (S/P/Bld) [Vol rate/Area]94 mL/min/{1.73_m2}Normal> OR = 60[facility] Comment on above:Performed By: #### 6490, 97837, 6399 #### [facility] [place] [address] Final Expense Agent: Nathanael Nguyen MDGlobulin (S) [Mass/Vol]2.2 g/dLNormal1.9-3.7 Quest DiagnosticsComment on above:Performed By: #### 9670, 64900, 6399 #### [facility] [place] [address] Final Expense Agent: Nathanael Nguyen MDGlucose [Mass/Vol]107 mg/mSJode54-80Wnmhb DiagnosticsComment on above:Result Comment: Fasting reference interval For someone without known diabetes, a glucose value between 100 and 125 mg/dL is consistent with prediabetes and should be confirmed with a follow-up test.Performed By: #### 4920, 59897, 6399 #### [facility] [address], [address] [place] [address] Final Expense Agent: Nathanael Nguyen MDPotassium [Moles/Vol]4.3 mmol/LNormal3.5-5.3 Quest DiagnosticsComment on above:Performed By: #### 6020, 10389, 6399 #### [facility] [place] [address] Final Expense Agent: Nathanael Nguyen MDProtein [Mass/Vol]6.5 g/dLNormal6.1-8.1Quest DiagnosticsComment on above:Performed By: #### 7600, 79391, 6399 #### [facility] [address], [address] [place] [address] Final Expense Agent: Nathanael BARDALESodium [Moles/Vol]140 mmol/AHqkuqa756-451Lfcpe DiagnosticsComment on above:Performed By: #### 7600, 26449, 6399 #### [facility] [address], [address] [place] [address] Final Expense Agent: Nathanael Nguyen MDUrea nitrogen [Mass/Vol]13 mg/dLNormal7-25 Quest DiagnosticsComment on above:Performed By: #### 7600, 67411, 6399 #### [facility] [address], [address] [place] [address] Final Expense Agent: Nathanael Nguyen MDLIPID PANEL, STANDARD 98-36-1358Kkuaojqpofr [Mass/Vol]129 mg/dLNormal<200Quest DiagnosticsComment on above:Order Comment: FASTING:YES FASTING: YESPerformed By: #### 7600, 63355, 6399 #### [facility] [place] [address] Final Expense Agent: Nathanael Nguyen MDCholesterol in HDL [Mass/Vol]43 mg/dLNormal> OR = 40Quest DiagnosticsComment on above:Order Comment: FASTING:YES FASTING: YESPerformed By: #### 7600, 09674, 6399 #### [facility] [address], [address] [place] [address] Final Expense Agent: Nathanael Nguyen MDCholesterol in LDL [Mass/Vol]68 mg/dLNormal Quest DiagnosticsComment on above:Order Comment: FASTING:YES FASTING: YESResult Comment: Reference range: <100 Desirable range <100 mg/dL for primary prevention; <70 mg/dL for patients with CHD or diabetic patients with > or = 2 CHD risk factors. LDL-C is now calculated using the Talha-Zhou calculation, which is a validated novel method providing better accuracy than the Friedewald equation in the estimation of LDL-C. Talha HERNANDEZ et al. MANPREET. 2013;310(06): 8436-3304 (http://education.JoKno/faq/OEX694)Performed By: #### 7600, 35130, 6399 #### [facility] [address], [address] [place] [address] Final Expense Agent: Nathanael DUNCANholesterol.total/Cholesterol in HDL [Mass ratio]3.0 {ratio}Normal<5.0Quest DiagnosticsComment on above:Order Comment: FASTING:YES FASTING: YESPerformed By: #### 7600, 13602, 6399 #### [facility] [address], [address] [place] [address] Final Expense Agent: Nathanael SIM HDL ZFJECAWCFEY10 mg/dL (calc)Normal<130 Quest DiagnosticsComment on above:Order Comment: FASTING:YES FASTING: YESResult Comment: For patients with diabetes plus 1 major ASCVD risk factor, treating to a non-HDL-C goal of <100 mg/dL (LDL-C of <70 mg/dL) is considered a therapeutic option.Performed By: #### 7600, 45952, 6399 #### [facility] [place] [address] Final Expense Agent: Nathanael Nguyen MDTriglyceride [Mass/Vol]97 mg/dLNormal<150Quest DiagnosticsComment on above:Order Comment: FASTING:YES FASTING: YESPerformed By: #### 7600, 91275, 6399 #### [facility] [address], [address] [place] [address] Final Expense Agent: Nathanael EPPS TOTALon [id number], TOTAL0.34 ng/mL Normal< OR = 4.00Quest DiagnosticsComment on above:Result Comment: The total PSA value from this assay system is standardized against the WHO standard. The test result will be approximately 20% lower when compared to the equimolar-standardized total PSA (Laurel Hamilton). Comparison of serial PSA results should be interpreted with this fact in mind. This test was performed using the Siemens chemiluminescent method. Values obtained from different assay methods cannot be used interchangeably. PSA levels, regardless of value, should not be interpreted as absolute evidence of the presence or absence of disease.Performed By: #### 7600, 55512, 6399 #### [facility] [address] [facility], [address] [place] [address] Final Expense Agent: Nathanael Nguyen MDSaint Francis Medical Center Cultureon 73-03-8824Folvhexj identified Cx Nom (U)25,000 colonies/ml mixed bacterial skin contaminants 2 Days PERFORMED BY: [place] [address] PATHOLOGIST DIRECTOR CRAFT CENTER JENNI GREEN M.D.NormalThe Scionhealth Physician GroupComment on above: Performed By: #### CUU #### [place] [id number] USACNOVon 86-54-2545GGIOUcedqi Visit (UROLAV) FAHAD SOTELO ([id number]) 1950 M Date Time Provider Department 01/17/24 [...] 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 Dye CYSTO.PANENDO 05/31/2022 CYSTO.PANENDO N/A 06/04/2023 CYSTOSCOPY 03/29/2017 Dr. Fady Dye - MIKO REJ [facility] LEFT HEART CATH,PERCUTANEOUS 05/11/2003 Cardiac [...] done by Nava Back LPN, MIKO LEE [facility] Social History Tobacco Use Smoking [...] 10/10/2018 0.95 06/29/2017 0.88 (more content not included)...NormalTrinity Health System Twin City Medical CenterF BACTERIA UR CULTon [id number] BACTERIA UR CULTORGANISM ID: 1AbnormalNOMS HealthcareCCF BACTERIA UR CULT>=100,000 CFU/ml Escherichia coliNOMS Healthcare CCF BACTERIA UR CULT ORGANISM ID: 1 (ESCHERICHIA COLI) ANTIBIOTIC INTERPRETATION RL STATUS REFERENCE RANGE AbnormalNOMS HealthcareCCF BACTERIA UR CULTAmpicillin S <=2 F Susceptible <=8 , Intermediate >8 , Resistant >16 AbnormalNOMS HealthcareCCF BACTERIA UR CULTCefazolin S <=4 F Susceptible 0-16 , Intermediate <0 or >16 , Resistant >16 AbnormalNOMS HealthcareCCF BACTERIA UR CULTFor uncomplicated urinary tract infections, cefazolin results can be used to predict susceptibilityor resistance to cephalexin.NOMS HealthcareCCF BACTERIA UR CULTCeftriaxone S <=1 F Susceptible <=1 , Intermediate >1 , Resistant >=4 AbnormalNOMS HealthcareCCF BACTERIA UR CULTCefepime S <=1 F Susceptible <=2 , Susceptible-Dose Dependent >2 , Resistant >=16 AbnormalNOMS HealthcareCCF BACTERIA UR CULTErtapenem S <=0.5 F Susceptible <=0.5 , Intermediate >.5 , Resistant >1 AbnormalNOMS HealthcareCCF BACTERIA UR CULTMeropenem S <=0.25 F Susceptible <=1 , Intermediate >1 , Resistant >2 AbnormalNOMS HealthcareCCF BACTERIA UR CULTAmpicillin/Sulbact S <=2 F Susceptible <=8 , Intermediate >8 , Resistant >16 AbnormalNOMS HealthcareCCF BACTERIA UR CULTPiperacillin/Tazobac S <=4 F Susceptible <16 , Susceptible-Dose Dependent >=16 , Resistant >=32 AbnormalNOMS HealthcareCCF BACTERIA UR CULTGentamicin S <=1 F Susceptible <=2 , Intermediate >2 , Resistant >=8 AbnormalNOMS HealthcareCCF BACTERIA UR CULTTobramycin S <=1 F Susceptible <4 , Intermediate >=4 , Resistant >=8 AbnormalNOMS HealthcareCCF BACTERIA UR CULTTrimeth sulfameth S <=20 F Susceptible <=40 , Resistant >40 AbnormalNOMS HealthcareCCF BACTERIA UR CULTCiprofloxacin S <=0.25 F Susceptible <0.5 , Intermediate >=.5 , Resistant >=1 AbnormalNOMS HealthcareCCF BACTERIA UR CULTNitrofurantoin S <=16 F Susceptible <=32 , Intermediate >32 , Resistant >64 AbnormalNOMS HealthcareInterpretation and review of laboratory resultsAbnormal NOMS HealthcareOriginal Ordering Provider: LOUIE DON HealthcareBacteria Ur Cult 88-86-5973Uhukmbdp identified Cx Nom (U)ORGANISM ID: 1 >=100,000 CFU/ml Escherichia coli ORGANISM ID: 1 (ESCHERICHIA COLI) ANTIBIOTIC INTERPRETATION LR STATUS REFERENCE RANGE Ampicillin S <=2 F Susceptible <=8 , Intermediate >8 , Resistant >16 Cefazolin S <=4 F Susceptible 0-16 , Intermediate <0 or >16 , Resistant >16 For uncomplicated urinary tract infections, cefazolin results can be used to predict susceptibilityor resistance to cephalexin. 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 Dye CYSTO.PANENDO 05/31/2022 CYSTO.PANENDO N/A 06/04/2023 CYSTOSCOPY 03/29/2017 Dr. Fady LEE [facility] LEFT HEART CATH,PERCUTANEOUS 05/11/2003 Cardiac [...] done by Nava Back LPN, MIKO LEE [facility] Social History Tobacco Use Smoking [...] Value 03/09/2020 0.31 Creatinin (more content not included)...NormalFaNorfolk State HospitalUA DIP, URINE (POC)on 68-94-0961JPCIENJTE UA (POCT)NegativeNegativeClemercy health allen hospital ClinicCLARITY UA (POCT)ClearClemercy health allen hospital ClinicCOLOR UA (POCT)YellowSelect Medical Specialty Hospital - YoungstownGLUCOSE UA (POCT)NegativeNegative mg/dLSelect Medical Specialty Hospital - YoungstownHemoglobin Ql (U)Trace-intact AbnormalNegativeSelect Medical Specialty Hospital - YoungstownInterpretation and review of laboratory results AbnormalSelect Medical Specialty Hospital - YoungstownKETONE UA (POCT)NegativeNegative mg/dLSelect Medical Specialty Hospital - [place]stown LEUKOCYTES UA (POCT)ModerateAbnormalNegativeGarrett Park ClinicNITRITE UA (POCT) PositiveAbnormalNegativeSelect Medical Specialty Hospital - YoungstownPH UA (POCT)6.04.5 - 8.0[facility] Protein Ql (U)TraceAbnormalNegative mg/dLRiverview Health InstitutePECIFIC GRAVITY UA (POCT)1.0251.005 - 1.030CleMercy Health Lorain HospitalUROBILINOGEN UA (POCT)0.2Normal E.U./dL [facility] - YoungstownLocation:[facility], [address] [address] AgueroWishon, [place], [address] [place] [address] POINT OF CAREClemercy health allen hospital ClinicANES POSTPROC EVALon 08-02-2023 ANES POSTPROC EVALHNO ID: [id number] Author: ARIANNA HAYNES MD Service: Anesthesiology Author Type: Anesthesiologist Type: Anesthesia Postprocedure Evaluation Filed: 08/02/2023 09:55 Note Text: POST ANESTHESIA EVALUATION NOTE : 1950 Procedure Summary Date: 08/02/23 Room / Location: [address] / [facility] Anesthesia Start: 903 Anesthesia Stop: [...] August 02, 2023 TIME: 9:55 AM CSN: [id number]'s [facility] PRE-OPon [id number] PRE-OPHNO ID: [id number] Author: ARIANNA HAYNES MD Service: Anesthesiology Author Type: Anesthesiologist Type: Anesthesia Preprocedure Evaluation Filed: 08/02/2023 08:03 Note Text: ANESTHESIOLOGY DAY OF SURGERY NOTE : 1950 Procedure Information Date/Time: 08/02/23 0845 Procedures: DILATION OF URETHRAL STRICTURE BY PASSAGE OF SOUND OR URETHRAL DILATOR, MALE; INITIAL (Bladder) CYSTOURETHROSCOPY W/INJECTION(S) FOR CHEMODENERVATION OF THE BLADDER (Urethra) Location: [facility] / [facility] Surgeons: Louie Salomon MD Estimated body mass [...] and consent discussed: yes. Patient / Responsible Green Party agrees to proceed: yes Patient / [...] August 02, 2023 TIME: 7:58 AM CSN: [id number] Hospital for Womenon 08-02-2023 OPERATIVE NOHNO ID: [id number] Author: LOUIE SALOMON MD Service: Urology Author Type: Physician Type: Operative Report Filed: 08/02/2023 09:44 Note Text: OPERATIVE/PROCEDURE REPORT LOG ID: [id number] Surgery/Procedure Date: 08/02/2023 Incision/Procedure Start Time: 9:21 AM Incision Close/Procedure End Time: 9:37 AM Surgeon(s)/Proceduralist(s) and Returns Clerk(s): Surgeon(s) and Role: * Louie Salomon [...] resume CIC QID Repeat VUDS in 4-6 weeksBoston Nursery for Blind BabiesPNon 76-05-1515SDWUNbiqcdohq (URFMOB) FAHAD SOTELO ([id number]) 1950 M Date Time Provider Department 07/11/23 LOUIE SALOMON During your visit today, we [...] Date Reviewed: 07/05/2023 Reviewed by: Rigo Cano APRN.LIFESTYLE CONSULTANT - Fully Assessed Order(s):cephALEXin (KEFLEX) 500 mg [...] days. Encounter Status:Closed by LOUIE SALOMON on 07/11/23[facility] ROSENDA PERF SPECT REST STRon 84-45-6091[place]pjHouston, [place] [address] Nuclear Medicine Report Signed Patient: Fahad Sotelo MR#: [id number] : 1950 Acct:[id number] Age/Sex: 72 / M ADM Date: 06/27/23 Loc: [place] Attending Dr: Tamanna Joshua M.D. Ordering Physician: Tamanna Joshua M.D. Date of Service: 06/27/23 Procedure(s): NM rosenda perf SPECT rest str Accession Number(s): [id number] cc: STANTON VELASCO ; Tamanna Joshua M.D. Patient Name: FAHAD SOTELO MR#: [id number] : 1950 Exam Date: 06/27/2023 Ordering Doctor: [...] nuclear medicine myocardial perfusion scan. Dictated by: Gerson Amado M.D. on 06/28/2023 at 15:25 Approved by: Gerson Amado M.D. on 06/28/2023 at 15:30 Dictated By: Gerson Amado M.D. Signed By: 06/28/23 1531 DD/ 153 TD/TT: Assistant Professor Of Mathematics:MARTINadiologcelia, Radiologist, - 06/28/2023 [place] [address] Nuclear Medicine Report Signed Patient: Fahad Sotelo MR#: [id number] : 1950 Acct:[id number] Age/Sex: 72 / M ADM Date: 06/27/23 Loc: NM Attending Dr: Tamanna Joshua M.D. Ordering Physician: Tamanna Joshua M.D. Date of Service: 06/27/23 Procedure(s): NM rosenda perf SPECT rest str Accession Number(s): [id number] cc: STANTON VELASCO ; Tamanna Joshua M.D. Patient Name: FAHAD SOTELO MR#: [id number] : 1950 Exam Date: 06/27/2023 Ordering Doctor: [...] nuclear medicine myocardial perfusion scan. Dictated by: Gerson Amado M.D. on 06/28/2023 at 15:25 Approved by: Gerson Amado M.D. on 06/28/2023 at 15:30 Dictated By: Gerson Amado M.D. Signed By: 06/28/23 1531 DD/ 1530 TD/TT: Assistant Professor Of Mathematics: [facility]ty HospitalRadiology Study observation (narrative)[facility] ROSENDA PERF SPECT REST STROrdered By: Radiologist Radiology on 63-78-0317VHPL [employer] Work Phone: cNOVon 65-74-5866LZUTWvgkiq Visit (URFMOB) SHEYMICHELLEFAHAD Rocha ([id number]) 1950 M Date Time Provider Department 06/20/23 10:30 AM LOUIE SALOMON During your visit today, we recorded the following information about you: Pulse Blood pressure 64/minute 128/70 Leoncio Zavala MA 06/20/2023 3:02 PM Signed Post Void Residual done on patient with 0 cc residual volume remaining. notified. DIAZ Edward Molly, MD 06/20/2023 3:02 PM Addendum [facility] UROLOGY NEW PATIENT [...] 03/29/2017 Dr. Fady Dye - MIKO REJ [facility] LEFT HEART CATH,PERCUTANEOUS 05/11/2003 Cardiac [...] done by Nava Back LPN, MIKO LEE [facility] FAMILY HISTORY FAMILY HISTORY Problem [...] (MILK OF MAGNESIA ORAL) (more content not included)...Normal [facility] Medical CenterUA DIP, URINE (POC)on 39-01-0595BTYBNKLQV UA (POCT)Negative NegativeSelect Medical Specialty Hospital - YoungstownCLARITY UA (POCT)ClearSelect Medical Specialty Hospital - YoungstownCOLOR UA (POCT) YellowSelect Medical Specialty Hospital - YoungstownGLUCOSE UA (POCT)NegativeNegative mg/dLSelect Medical Specialty Hospital - Youngstown Hemoglobin Ql (U)NegativeNegativeSelect Medical Specialty Hospital - YoungstownInterpretation and review of laboratory resultsAbnormalCleveland ClinicKETONE UA (POCT)NegativeNegative mg/dL [facility] YoungstownLEUKOCYTES UA (POCT)SmallAbnormalNegativeSelect Medical Specialty Hospital - YoungstownNITRITE UA (POCT)NegativeNegativeSelect Medical Specialty Hospital - YoungstownPH UA (POCT)6.04.5 - 8.0[facility] - YoungstownProtein Ql (U)NegativeNegative mg/dLRiverview Health InstitutePECIFIC GRAVITY UA (POCT)1.0251.005 - 1.030[facility] Hospital - YoungstownUROBILINOGEN UA (POCT)0.2Normal E.U./dL [facility] YoungstownLocation:[facility], [address], [place], [place], [address]NNKYFXPVQPARKWOOD H[facility]ITAL POINT OF CARECleMercy Health Lorain HospitalXR SHOULDER ORTHO 4V AP/TRUE AP/LAT/OUTLET LEFTon 00-35-2670Kbaapxxbi [facility] HomeXR Shoulder - left 4 Viewson 44-08-4266VEYWCOLCBA: Postoperative and degenerative changes, as described. Assistant Professor Of Mathematics: DEEPIKA Transcribe Date/Time: Jun 23 2022 4:32P Dictated by : SILVA RILEY MD This examination was interpreted and the report reviewed and electronically signed by: SILVA RILEY MD on Jun 23 2022 4:33PM [facility] DIVISION OF RADIOLOGY* * *Final Report* * * DATE OF [...] Glenohumeral joint space is maintained. DIVISION OF RADIOLOGYProvider, [facility] [place] - 06/23/2022 * * *Final Report* * [...] IMPRESSION: Postoperative and degenerative changes, as described. Assistant Professor Of Mathematics: DEEPIKA Transcribe Date/Time: Jun 23 2022 4:32P Dictated by : SILVA RILEY MD This examination was interpreted and the report reviewed and electronically signed by: SILVA RILEY MD on Jun 23 2022 4:33PM EST [facility] YoungstownRadiology Study observation (narrative)[facility] YoungstownXR Shoulder - left 4 ViewsOrdered By: Ccf Provider on 26-49-4333Hg[facility] ECHOCARDIO M/2D COMPLETEon 96-34-4323SVQSFCVRPV M/2D COMPLETEPatient: FAHAD SOTELO Exam Date: 06/07/2022 : 1950 Gender:M Ordering : DR TAMANNA JOSHUA M.D. Admission #: [id number] Family : DR STANTON VELASCO M.D. Order #: [id number] CLICK HERE TO VIEW EXAM ECHOCARDIOGRAM REPORT [...] 64.89 ml, 59.48 ml Dictated by: Tamanna Joshau M.D. on 06/07/2022 at 15:48 Approved by: Tamanna Joshua M.D. on 06/07/2022 at 15:50[facility] DIP, URINE (POC)on 94-56-5260REAKNHYRS UA (POCT)NegativeNegative [facility] UA (POCT)ClearCleveland ClinicCOLOR UA (POCT)Yellow [facility] YoungstownGLUCOSE UA (POCT)NegativeNegative mg/dLSelect Medical Specialty Hospital - [place] HEMOGLOBIN/BLOOD UA (POCT)NegativeNegativeSelect Medical Specialty Hospital - YoungstownKETONE UA (POCT) NegativeNegative mg/dLSelect Medical Specialty Hospital - YoungstownLEUKOCYTES UA (POCT)NegativeNegative [facility] Hospital - YoungstownNITRITE UA (POCT)NegativeNegativeSelect Medical Specialty Hospital - YoungstownPH UA (POCT)5.5 4.5 - 8.0[facility] YoungstownProtein Ql (U)NegativeNegative mg/dLSelect Medical Specialty Hospital - [place] SPECIFIC GRAVITY UA (POCT)<=1.214Pqonjoap0.005 - 1.030[facility] UROBILINOGEN UA (POCT)0.2 E.U./dLNormal E.U./dLSelect Medical Specialty Hospital - YoungstownCREATININEon 48-78-9933Awpkzomcml [Mass/Vol]0.92 mg/dLNormal0.70-1.30[facility] Comment on above:Performed By: #### CREA #### [facility] [address] [place] [address] Dr. Joey GuidoGFR-AF UGANDAN>60Normal>=60H[facility] Valley Community HospitalComment on above:Performed By: #### CREA #### [facility] [address] [place] [address] Dr. Joey GuidoGFR-NON AF UGANDAN>60Normal>=60The [facility] CenterComment on above:Performed By: #### CREA #### [facility] [address] [place] [address] Dr. Cook ChangCT CHEST W CONon [id number] CHEST W CONEXAMINATION: CT CHEST W CON HISTORY: Solitary nodule of lung [...] Electronically authenticated by: GERSON AMADO Date: 2022-05-19 11:14[facility] HospitalXR HIP RT 2 3V WO PELVISon 64-39-4705VS HIP RT 2 3V WO PELVIS EXAM: [...] Electronically authenticated by: CARMEN BURGOS Date: 2022-04-14 23:20[facility] HospitalCULTURE URINEon 25-67-6024SRRZJHY URINEIsolate 1 Escherichia coli >100,000 cfu/mL of ORGANISM 1 Escherichia coli ANTIBIOTIC M.I.C RX STATUS Ampicillin 16 I F Ampicillin/Sulbactam 4 S F Piperacillin/Tazobactam <=4 S F Cefazolin <=4 S F Ceftazidime <=1 S F Ceftriaxone <=1 S F Ertapenem <=0.5 S F Imipenem <=0.25 S F Amikacin <=2 S F Gentamicin <=1 S F Tobramycin <=1 S F Ciprofloxacin <=0.25 S F Levofloxacin <=0.12 S F Nitrofurantoin <=16 S F Trimethoprim/Sulfamethoxazole <=20 S FNormalThe [facility] CenterComment on above:Performed By: #### URCX ####[facility] Udtlxmrvy[address] [place], [place] [address]Dr. Joey MontalvoCBC AUTO DIFFon 07-63-6719DDRH #0.1 103/ulNormal0.0-0.1The [facility] CenterComment on above:Performed By: #### CBC ####[facility] B[address]vuiw[address] [place], [place] [address]Dr. Joey ChangBasophils/100 WBC (Bld)0.7 %Normal0.2-2.0The [facility] CenterComment on above:Performed By: #### CBC ####[facility] Ruijigvizt[address] [place], [place] [address]Dr.Jacklynlan ChangEO #0.1 103/ulNormal0.0-0.7The [facility] CenterComment on above:Performed By: #### CBC ####[facility] Maricxmknj[address] [place], [place] [address]Dr.Joey ChangEosinophils/100 WBC (Bld)1.2 %Normal0.9-7.0The [facility] CenterComment on above:Performed By: #### CBC ####[facility] Ayjzogvprx[address] [place], [place] [address]Dr.Joey ChangErythrocyte distribution width (RBC) [Ratio]12.4 %Normal 11.0-15.0The [facility] CenterComment on above:Performed By: #### CBC ####[facility] Al[address] [place], [place] [address]Dr. Yilan ChangHematocrit (Bld) [Volume fraction]45.2 %Pbbyfz46.0-54.0The [facility] Health CenterComment on above:Performed By: #### CBC ####[facility] W[address]nebjv[address] [place] [address]Dr.Joey MontalvoHemoglobin (Bld) [Mass/Vol]15.5 g/zFJdxjos68.0-18.0The Organ HospitalComment on above: Performed By: #### CBC ####[facility] Ekysdbvaoy[address] [place], [place] [address]Dr.Joey ChangIG #0.05 10e3/ulCritically high0.00-0.03 The [facility] CenterComment on above:Performed By: #### CBC ####[facility] [address]fq[address] [place], [place] [address]Dr.Joey MontalvoIG % 0.7 %Critically high0.0-0.5The [facility] CenterComment on above:Performed By: #### CBC ####[facility] Aekrxxbocc[address] [place], [place] [address]Dr.Joey ChangLYMPH #2.0 103/ulNormal1.2-3.8The Organ HospitalComment on above:Performed By: #### CBC ####[facility] Xzekqqdqws[address] [place], [place] [address]Dr.Joey MontalvoLymphocytes/100 WBC (Bld)29.0 %Normal 20.5-60.0The Organ HospitalComment on above:Performed By: #### CBC ####[facility] Dhgjkaptpf[address] [place], [place] [address]Dr. Joey ChangMANUAL DIFF REQNONormalThe [facility] CenterComment on above: Performed By: #### CBC ####[facility] Sqblfmftyc[address] [place], [place] [address]Dr.Joey MontalvoMCH (RBC) [Entitic mass]31.0 pgNormal 25.9-34.0The [facility] CenterComment on above:Performed By: #### CBC ####[facility] Cebyxlnlpr[address] [place], [place] [address]Dr. Joey MontalvoMCHC (RBC) [Mass/Vol]34.3 g/tMIiphxi83.9-35.2The [facility] Comment on above:Performed By: #### CBC ####[facility] [address]vksvicwag[address] [place], [place] [address]Dr.Joey MontalvoMCV (RBC) [Entitic vol]90.4 fL Fjquzq28.0-94.0The [facility] CenterComment on above:Performed By: #### CBC ####[facility] Vcdngnmggg[address] [place], [place] [address]Dr. Joey MontalvoMONO #0.8 103/ulNormal0.3-0.8The [facility] CenterComment on above: Performed By: #### CBC ####[facility] Naeadplmgv[address] [place], [place] [address]Dr.Joey MontalvoMonocytes/100 WBC (Bld)12.1 %Critically high1.7-12.0The [facility] CenterComment on above:Performed By: #### CBC ####[facility] Ejedvikqul[address] [place], [place] [address]Dr. Joey MontalvoNEUT #3.8 103/ulNormal1.4-6.5The [facility] CenterComment on above: Performed By: #### CBC ####[facility] [address]pvvuihuy[address] [place], [place] [address]Dr.Joey ChangNeutrophils/100 WBC (Bld)56.3 %Normal 43.0-75.0The Organ HospitalComment on above:Performed By: #### CBC ####[facility] [address]qbtrvja[address] [place], [place] [address]Dr. Joey MontalvoPlatelet mean volume (Bld) [Entitic vol]9.5 fLNormal9.5-13.5The Organ HospitalComment on above:Performed By: #### CBC ####[facility] Xid[address] [place], [place] [address]Dr.Jacklynlan RylzpWNC406 103/ul Jfgiiw747-684Azq [facility] CenterComment on above:Performed By: #### CBC ####[facility] [address] [place], [place] [address]Zy. Joey MontalvoRBC5.00 106/ulNormal4.70-6.10The [facility] CenterComment on above: Performed By: #### CBC ####[facility] [address] [place], [place] [address]Bu.Joey ChangWBC6.8 103/ulNormal4.0-11.0The [facility] CenterComment on above:Performed By: #### CBC ####[facility] [address] [place], [place] [address]Dp.Joey MontalvoCT STROKE HEAD WOon 15-60-5978QD STROKE HEAD WOEXAMINATION: CT STROKE HEAD WO TECHNIQUE: Axial CT images were [...] Electronically authenticated by: KIM PARK Date: 2022-03-23 15:03NoWVUMedicine Barnesville HospitalCTA HEAD WO W CONon 01-93-2766NFT HEAD WO W CONEXAMINATION: CTA HEAD WO W CON, CTA NECK WO W [...] stenosis. Bilateral intracranial ICAs, MCA's, ACAs and classified copy control clerk are patent. Basilar artery is patent. Intracranial vertebral arteries patent. Dural venous sinuses grossly patent. IMPRESSION: No intracranial large vessel occlusion. 50% left cervical ICA stenosis. Electronically authenticated by: ALEXANDRE SWENSON Date: 2022-03-23 16:30[facility] URINE PROFILEon 59-89-0304Ekhlamckc Ql (U)NegativeNormal NEGATIVEBarney Children'S Medical Center HospitalComment on above:Performed By: #### GISELA ALLISONR ####[facility] [address] [place], [place]Dr. Yilan ChangClarity (U)CLEARNormalCLEARHocking Valley Community HospitalComment on above: Performed By: #### ESTEFANY ERUR ####[facility] [address] [place], [place]Dr. Yilan ChangColor (U)LT. YELLOWNormalYELLOWHocking Valley Community HospitalComment on above:Performed By: #### GISELA ALLISONR ####[facility] [address] [place] [id number]. Joey Andersen A micrscopic examination will be performed if indicated.NormalHocking Valley Community HospitalComment on above:Performed By: #### ESTEFANY ERUR ####[facility] [address] [place], [place]Dr. Yilan ChangGlucose Ql (U) NegativeNormalNEGATIVEHocking Valley Community HospitalComment on above:Performed By: #### GISELA ALLISONR ####[facility] [address] [place], [place] [address]Qb. Yilan ChangHemoglobin Ql (U)TRACE-INTACTAbnormalNEGATIVEHocking Valley Community HospitalComment on above:Performed By: #### ESTEFANY ERUR ####[facility] [address] [place], [place]Dr. Yilan ChangKetones Ql (U) NegativeNormalNEGATIVEThe Danish HospitalComment on above:Performed By: #### GISELA ALLISONR ####[facility] [address] [place], [place] [address]Qc. Joey MontalvoLEUKOCYTESSMALLAbnormalNEGATIVEThe Organ HospitalComment on above:Performed By: #### GISELA ALLISONR ####[facility] [address] [place], [place]Dr. Joey MontalvoNitrite Ql (U)NegativeNormal NEGATIVEThe Organ HospitalComment on above:Performed By: #### GISELA ALLISONR ####[facility] [address] [place] [id number]. Joey MontalvopH (U)6.0 [pH]Normal5-9The [facility] CenterComment on above: Performed By: #### GISELA ALLISONR ####[facility] [address] [place] [address]Dr. Joey MontalvoSPEC GRAVITY1.861Fhywde1.005-<=1.025The [facility] CenterComment on above:Performed By: #### GISELA ALLISONR ####[facility] [address]iy[address] [place] [address]Dr. oJey MontalvoUA PROTEINNegativeNormalNEGATIVE/ TRACEThe Organ HospitalComment on above: Performed By: #### GISELA ALLISONR ####[facility] [address] [place] [address]Dr. Joey MontalvoUR MICRO INDINDICATEDNormalThe Organ HospitalComment on above:Performed By: #### GISELA ALLISONR ####[facility] [address] [place] [address]Dr. Joey MontalvoUrobilinogen Qn (U)0.2 {Selena'U}/dLNormal0.2 - 1.0The Organ HospitalComment on above: Performed By: #### GISELA ALLISONR ####[facility] [address] [place] [address]Dr. Yilan ChangPROF 14(COMP METB)on 78-97-0692Lhgiclp [Mass/Vol]3.5 g/dLNormal3.4-5.0The [facility] CenterComment on above:Performed By: #### TSH, HSTROPN, CMP #### [facility] [address] [place] [address] [address] Joey MontalvoAlbumin/Globulin [Mass ratio]1.0 {ratio}NormalThe [facility] Health CenterComment on above:Performed By: #### TSH, HSTROPN, CMP #### [facility] [address] [place] [address] Dr. Joey ScottP [Catalytic activity/Vol]68 U/ADgebqc88-608Wki [facility] CenterComment on above:Performed By: #### TSH, HSTROPN, CMP #### [facility] [address] [place] [address] Dr. Joey ScottT [Catalytic activity/Vol]21 U/BUssppc75-91Mox [facility] CenterComment on above:Performed By: #### TSH, HSTROPN, CMP #### [facility] [address] [place] [address] [address] Joey Liriano gap [Moles/Vol]11.6 mmol/LNormalThe [facility] Comment on above:Performed By: #### TSH, HSTROPN, CMP #### [facility] [address] [place] [address] [address] Joey MontalvoAST [Catalytic activity/Vol]14 U/LCritically qoj41-02Aps [facility] CenterComment on above:Performed By: #### TSH, HSTROPN, CMP #### [facility] [address] [place] [address] Dr. Joey MontalvoBilirubin [Mass/Vol]0.4 mg/dLNormal0.2-1.0The [facility] Comment on above:Performed By: #### TSH, HSTROPN, CMP #### [facility] [address] [place] [address] Dr. Joey MontalvoCalcium [Mass/Vol]9.1 mg/dLNormal8.5-10.1The [facility] Comment on above:Performed By: #### TSH, HSTROPN, CMP #### [facility] [address] [place] [address] [address] Joey MontalvoChloride [Moles/Vol]104 mmol/PHicvrx56-566Med [facility] Comment on above:Performed By: #### TSH, HSTROPN, CMP #### [facility] [address] [place] [address] [address] Joey MontalvoCO2 [Moles/Vol]29.6 mmol/OEzapwd62.0-32.0The [facility] Comment on above:Performed By: #### TSH, HSTROPN, CMP #### [facility] [address] [place] [address] Dr. Joey MontalvoCreatinine [Mass/Vol]0.68 mg/dLCritically low0.70-1.30The [facility] CenterComment on above:Performed By: #### TSH, HSTROPN, CMP #### [facility] [address] [place] [address] Dr. Joey GuidoGFR-AF UGANDAN>60Normal>=60The [facility] CenterComment on above:Performed By: #### TSH, HSTROPN, CMP #### [facility] [address] [place] [address] Dr. Joey Roth-NON AF UGANDAN>60Normal>=60The [facility] CenterComment on above:Performed By: #### TSH, HSTROPN, CMP #### [facility] [address] [place] [address] Dr. Joey MontalvoGlobulin (S) [Mass/Vol]3.4 g/dLNormalThe [facility] CenterComment on above:Performed By: #### TSH, HSTROPN, CMP #### [facility] [address] [place] [address] Dr. Joey MontalvoGlucose [Mass/Vol]109 mg/dLCritically zhqh29-153Yxd [facility] CenterComment on above:Performed By: #### TSH, HSTROPN, CMP #### [facility] [address] [address] [address] Joey MontalvoPotassium [Moles/Vol]4.2 mmol/LNormal3.5-5.1The [facility] Comment on above:Performed By: #### TSH, HSTROPN, CMP #### [facility] [address] [address] [address] Joey MontalvoProtein [Mass/Vol]6.9 g/dLNormal6.4-8.2The [facility] Comment on above:Performed By: #### TSH, HSTROPN, CMP #### [facility] [address] [address] [address] Joey MontalvoSodium [Moles/Vol]141 mmol/XZzzird146-781Lvi [facility] Comment on above:Performed By: #### TSH, HSTROPN, CMP #### [facility] [address] [place] [address] Dr. Joey MontalvoUrea nitrogen [Mass/Vol]15.0 mg/dLNormal7.0-18.0Hock[facility] Valley Community HospitalComment on above:Performed By: #### TSH, HSTROPN, CMP #### [facility] [address] [place] [address] Dr. Joey Daley nitrogen/Creatinine [Mass ratio]22.1 mg/mgNoWVUMedicine Barnesville HospitalComment on above:Performed By: #### TSH, HSTROPN, CMP #### [facility] [address] [place] [address] Dr. Joey MontalvoPROTIMEon 68-46-5533NKW Coag (PPP) [Relative time]0.99 {INR} NormalHocking Valley Community HospitalComment on above:Performed By: #### PTT, PT ####[facility] [address] [place] [address]Dr. Joey Pink GUIDELINESSEE BELOWMercy Health Anderson HospitalComment on above: Result Comment: DESIRED INR: 2.0 - 3.0 CONDITIONS NOT LISTED BELOW 2.5 - 3.5 FOR PROSTHETIC HEART VALVE REPLACEMENT 2.5 - 3.5 RECURRENT THROMBOSISPerformed By: #### PTT, PT ####[facility] [address] [place] [address]Dr. Joey MontalvoPT Coag (PPP) [Time]10.5 sNormal9.0-11.6The [facility] CenterComment on above:Performed By: #### PTT, PT ####[facility] [address] [place] [address]DrUna SchmitzTon 72-58-6323tEHJ Coag (Bld) [Time]30.9 qQqszhw82.3-36.2The [facility] Comment on above:Performed By: #### PTT, PT ####[facility] [address] [place] [address]DrUna WelchN, HIGH SENSITIVITYon 71-96-2522JWCOOH49.0 pg/mLNormal4.0-76.1The [facility] CenterComment on above: Result Comment: CUT-OFF POINTS HAVE BEEN ESTABLISHED BASED ON THE FOURTH UNIVERSAL DEFINITIONS OF MYOCARDIAL INFARCTION. THE UPPER REFERENCE LIMIT (URL) OF TROPONIN, DEFINED THE 99TH PERCENTILE OF cTnI DISTRIBUTION IN A REFERENCE POPULATION, HAS BEEN CONFIRMED THE DECISION THRESHOLD FOR SC DIAGNOSIS.Performed By: #### TSH HSTROPN, CMP #### [facility] [address] [place] [address] Dr. Joey Her 31-98-0177TVB0.451 uIU/mLNormal0.358-3.740The [facility] CenterComment on above:Performed By: #### TSH, HSTROPN, CMP #### [facility] [address] [place] [address] [address] Joey MACHADO ONLYon 62-32-4136NEBMDBLVQJZNZCbckahjwDYLC SEEN The [facility] CenterComment on above:Performed By: #### GISELA ALLISONR ####[facility] [address] [place], [place]Dr. Joey Bernardoctmichelle identified Cx Nom (U)INDICATEDNormalThe [facility] Comment on above:Performed By: #### GISELA ALLISONR ####[facility] [address] [place] [id number]. Joey ChangCASTNONE SEEN NormalNONE SEENMedina Hospital on above:Performed By: #### ESTEFANY ERUR ####[facility] [address] [place], [place]Dr. Joey MontalvoCrystals LM Nom (Urine sed)NONE SEENNormalNONE SEENThe [facility] CenterCommymichigan medical center saginaw on above:Performed By: #### ESTEFANY ERUR ####[facility] [address] [place] [address]Dr. Joey ChangEpithelial cells LM Ql (Urine sed)RARENormalNONE SEEN /RAREThe [facility] on above:Performed By: #### GISELA ALLISONR ####[facility] [address] [place] [address]Dr. Joey MontalvoMUCOUSNONE SEENNormalNONE SEENMedina Hospital on above:Performed By: #### GISELA ALLISONR ####[facility] [address] [place] [address]Dr. Joey ChangRBC0-2 Normal0-2The [facility] on above:Performed By: #### GISELA ALLISONR ####[facility] [address] [place] [address]Dr. Joey ChangWBC2-5AbnormalNONE SEENMedina Hospital on above: Performed By: #### ESTEFANY ERUR ####[facility] [address] [place] [address]Dr. Joey MontalvoXR CHEST 1 Von 18-87-1821NG CHEST 1 V EXAM: XR CHEST 1 V HISTORY: Cerebrovascular accident COMPARISON: None. TECHNIQUE: Single view of the chest FINDINGS: Heart size normal. No focal consolidation, pleural effusion, pulmonary congestion or pneumothorax. Sternotomy wires noted. Right shoulder arthroplasty noted. Remote right rib fractures. IMPRESSION: No acute findings. Electronically authenticated by: ALEXANDRE SWENSON Date: 2022-03-23 15:02[facility] HospitalXR Knee AP and Lateral and Merchantson 84-15-5268DFTQYXUCFP: Stable appearing right total knee arthroplasty. Assistant Professor Of Mathematics: DEEPIKA Transcribe Date/Time: Nov 15 2021 2:58P Dictated by : DIANN MONTGOMERY MD This examination was interpreted and the report reviewed and electronically signed by: MARSHAL STOVALL MD on Nov 16 2021 12:06PM [facility] DIVISION OF RADIOLOGY* * *Final Report* * * DATE OF [...] bony erosions. Moderate joint effusion. DIVISION OF RADIOLOGYProvider, [facility] [place] - 11/16/2021 * * *Final Report* * [...] IMPRESSION: Stable appearing right total knee arthroplasty. Assistant Professor Of Mathematics: [facility] Transcribe Date/Time: Nov 15 2021 2:58P Dictated by : DIANN MONTGOMERY MD This examination was interpreted and the report reviewed and electronically signed by: MARSHAL STOVALL MD on Nov 16 2021 12:06PM EST [facility]XR Knee AP and Lateral and MerchantsOrdered By: Ccf Provider on 04-50-7287Alsuobglv ClinicXR Knee AP and Lateral and Merchantson 11-15-2021 Radiology Study observation (narrative)[facility]stownXR SHOULDER GENERAL 3V OR MORE AP/TRUE AP/OTHER RIGHTon 01-49-5639Bxyhdisbe [facility]XR Shoulder - right 3 Viewson 19-72-7285NJXRTRQPWD: Intact reverse total shoulder arthroplasty as described. Assistant Professor Of Mathematics: [facility] Transcribe Date/Time: Nov 08 2021 2:12P Dictated by : HALEIGH SORIANO MD This examination was interpreted and the report reviewed and electronically signed by: RUBI RODRIGUEZ MD on Nov 08 2021 2:38PM [facility] DIVISION OF RADIOLOGY* * *Final Report* * * DATE OF [...] changes in the cervical spine. DIVISION OF RADIOLOGYProvider, [facility] [place] - 11/08/2021 * * *Final Report* * * DATE OF EXAM: Nov 08 2021 2:09PM JOSE 5253 - XR SHLDR >/=3V AP/LUCITA AP/OTHR [...] Intact reverse total shoulder arthroplasty as described. Assistant Professor Of Mathematics: PSCKerry Transcribe Date/Time: Nov 08 2021 2:12P Dictated by : HALEIGH SORIANO MD This examination was interpreted and the report reviewed and electronically signed by: RUBI RODRIGUEZ MD on Nov 08 2021 2:38PM EST [facility]stownRadiology Study observation (narrative)[facility]stownXR Shoulder - right 3 ViewsOrdered By: [facility] Provider on 46-28-5953Nmklkmfei Clinic LIPID PROFILEon 80-91-6968KGEK-HDL RATIO NORMSEE Kindred Hospital DaytonComment on above:Result Comment: 3.3 - 4.4 LOW RISK 4.4 - 7.1 AVERAGE RISK 7.1 - 11.0 MODERATE RISK >11.0 HIGH RISKPerformed By: #### LIPID, LIVER ####[facility] [address] [place] [id number]. Joey ChangCholesterol [Mass/Vol]124 mg/dLNormal<=200The [facility] Comment on above:Performed By: #### LIPID, LIVER ####[facility] Lmpnjxrexp[address] [place], [place]Dr. Yilan ChangCholesterol in HDL [Mass/Vol]40 mg/zYWhjyjg24-38Ioe [facility] CenterComment on above:Performed By: #### LIPID, LIVER ####[facility] M[address]icz[address]fp[address] [place], [place]Dr. Yilan ChangCholesterol in LDL [Mass/Vol]65.6 mg/dL NormalThe [facility] CenterComment on above:Performed By: #### LIPID, LIVER ####[facility] [address] [place], [place] [id number]. Yilan ChangCholesterol.total/Cholesterol in HDL [Mass ratio]3.1 {ratio}NormalThe [facility] CenterComment on above:Performed By: #### LIPID, LIVER ####[facility] [address] [place], [place] [address]Dr. Yilan ChangHDL NORMAL> or = 60 mg/dl - LOW CARDIOVASCULAR RISK <40 mg/dl - HIGH CARDIOVASCULAR RISKMercy Health Anderson HospitalComment on above:Performed By: #### LIPID, LIVER ####[facility] [address] [place], [place] [address]Dr. Yilan ChangLDL CALC NORMALSEE BELOWNoWVUMedicine Barnesville HospitalComment on above: Result Comment: <100 mg/dl OPTIMAL 100 - 129 mg/dl NEAR OR ABOVE OPTIMAL 130 - 159 mg/dl BORDERLINE HIGH 160 - 189 mg/dl HIGH >190 mg/dl VERY HIGHPerformed By: #### LIPID, LIVER ####[facility] [address]rex[address] [place], [place] [address]Dr. Yilan ChangTriglyceride [Mass/Vol]92 mg/dLNormal<=150H[facility] Community HospitalCommymichigan medical center saginaw on above:Performed By: #### LIPID, LIVER ####[facility] [address] [place], [place] [address]Dr. Yilan ChangVLDL CALC18.4 mg/dLNoWVUMedicine Barnesville HospitalComment on above:Performed By: #### LIPID, LIVER ####[facility] [address]yrp[address] [place], [place]Dr. Joey oMntalvoLIVER PROFILEon 33-80-4964Pldcmtk [Mass/Vol]3.5 g/dLNormal3.4-5.0The [facility] CenterComment on above:Performed By: #### LIPID, LIVER ####[facility] [address]fqv[address] [place], [place]Dr. Yilan Montalvo Albumin/Globulin [Mass ratio]1.0 {ratio}NormalThe [facility] Health CenterComment on above:Performed By: #### LIPID, LIVER ####[facility] [address]egbio[address] [place], [place]Dr. Yilan ChangALP [Catalytic activity/Vol]77 U/L Mgaymv29-806Kmq [facility] CenterComment on above:Performed By: #### LIPID, LIVER ####[facility] [address]fr[address] [place], [place] [address]Sp. Yilan ChangALT [Catalytic activity/Vol]23 U/CZosjqe71-25Zng [facility] CenterComment on above:Performed By: #### LIPID, LIVER ####[facility] [address]kg[address] [place], [place]Dr. Yilan ChangAST [Catalytic activity/Vol]10 U/LCritically jsa86-84Coo [facility] CenterComment on above: Performed By: #### LIPID, LIVER ####[facility] [address] [place], [place]Dr. Yilan ChangBILI, CONJUGATED0.2 mg/dLNormal0.0-0.2 The [facility] Health CenterComment on above:Performed By: #### LIPID, LIVER ####[facility] [address] [place], [place]Dr. Yilan ChangBilirubin [Mass/Vol]0.6 mg/dLNormal0.2-1.0The [facility] Comment on above:Performed By: #### LIPID, LIVER ####[facility] [address] [place] [address]Dr. Yilan ChangGlobulin (S) [Mass/Vol]3.4 g/dLNormalThe [facility] CenterComment on above:Performed By: #### LIPID, LIVER ####[facility] [address] [place], [place]Dr. Joey MontalvoProtein [Mass/Vol]6.9 g/dLNormal6.4-8.2The [facility] CenterComment on above:Performed By: #### LIPID, LIVER ####[facility] [address] [place], [place]Dr. Joey ChangAutomated erythrocytes count in urine sediment (number/area)Ordered By: Stanton Velasco on 74-49-1656BTD Auto (Urine sed) [#/Area]5-9 [HPF][facility] - ColumbusAutomated leukocytes count in urine sediment (number/area)Ordered By: Stanton Velasco on 31-68-8562HNB Auto (Urine sed) [#/Area]5-9 [HPF][facility] - ColumbusBilirubin Test strip Ql (U)Ordered By: Stanton Velasco on 04-60-8972Ptdcuvnsg Ql (U)NegativeNegativeSelect Medical Specialty Hospital - ColumbusColor Auto (U)Ordered By: Stanton Velasco on 55-12-7600Ommep (U)YellowYellowSelect Medical Specialty Hospital - ColumbusKetones Auto test strip (U) [Mass/Vol]Ordered By: Stanton Velasco on 51-77-0327Gapdjsu (U) [Mass/Vol]NegativeNegativeSelect Medical Specialty Hospital - ColumbusLaboratory - UrinalysisOrdered By: Stanton Velasco on 06-07-2021 Hyaline casts LM Ql (Urine sed)0-8 [LPF][facility] - ColumbusNitrite Test strip Ql (U)Ordered By: Stanton Velasco on 07-34-8748Rmvzkie Ql (U)Negative NegativeSelect Medical Specialty Hospital - ColumbusProtein Auto test strip (U) [Mass/Vol] Ordered By: Stanton Velasco on 63-22-1243Aycnyzw (U) [Mass/Vol]NegativeNegative [facility] Pointe Hospitalpecific gravity Auto test strip (U) [Rel density]Ordered By: Stanton Velasco on 57-72-6624Sbqgyobs gravity (U) [Rel density] 1.0171.001-1.030C[facility] Pointe Hospitalquamous epithelial cells detection in urine sediment by light microscopyOrdered By: Stanton Velasco on 87-81-2898Pkjfbptpkt cells.squamous LM Ql (Urine sed)3-4 [HPF][facility] - ColumbusUrine bacteria detection by automated methodOrdered By: Stanton Velasco on 02-87-3988Rmiuuvtg Auto Ql (U)None seenNone SeenSelect Medical Specialty Hospital - ColumbusUrine clarity by refractometry automatedOrdered By: Stanton Velasco on 42-14-7193Jbevvxx Refractometry automated (U)TurbidClearFThe Christ HospitalUrine glucose measurement by automated test strip (mass/volume) Ordered By: Stanton Velasco on 07-10-7009Ylmcxot Auto test strip (U) [Mass/Vol] Normal mg/dLNormMercer County Community HospitalUrine hemoglobin detection by automated test stripOrdered By: Stanton Velasco on 21-17-8202Ralxwkiefg Auto test strip Ql (U)NegativeNegativeSelect Medical Specialty Hospital - ColumbusUrine leukocyte esterase detection by automated test stripOrdered By: Stanton Velasco on 06-07-2021 Leukocyte esterase Auto test strip Ql (U)1+NegativeSelect Medical Specialty Hospital - ColumbusUrobilinogen Auto test strip (U) [Mass/Vol]Ordered By: Stanton Velasco on 75-23-0619Rqhdgqvbjlaj (U) [Mass/Vol]Normal mg/dLNormMercer County Community HospitalpH Auto test strip (U)Ordered By: Stanton Velasco on 78-80-5036fG (U) 8.5 [pH]5.0-9.0[facility] - ColumbusXR Shoulder - right 3 Viewson 98-20-2838KAHVTFCOXK: Intact shoulder arthroplasty. Assistant Professor Of Mathematics: DEEPIKA Transcribe Date/Time: May 24 2021 10:14A Dictated by : RUBI RODRIGUEZ MD This examination was interpreted and the report reviewed and electronically signed by: RUBI RODRIGUEZ MD on May 24 2021 10:14AM EST ZZZ_DO_NOT_USE_DIVISION OF RADIOLOGY* * *Final Report* * * DATE OF [...] or dislocation. There are no laura erosions. ZZZ_DO_NOT_USE_DIVISION OF RADIOLOGYProvider, [facility] [place] - 05/24/2021 * * *Final Report* * [...] laura erosions. IMPRESSION IMPRESSION: Intact shoulder arthroplasty. Assistant Professor Of Mathematics: PSCB Transcribe Date/Time: May 24 2021 10:14A Dictated by : RUBI RODRIGUEZ MD This examination was interpreted and the report reviewed and electronically signed by: RUBI RODRIGUEZ MD on May 24 2021 10:14AM EST [facility] YoungstownRadiology Study observation (narrative)[facility] YoungstownXR Shoulder - right 3 ViewsOrdered By: Cc Provider on 49-90-0115Xqfkluofj Clinic SARS-CoV-2 RNA Resp Ql BASSAM+probeon 76-69-6151XUAM-CoV-2 (COVID-19) RNA BASSAM+probe Ql (Resp)COVID 19 RESULT: SARS-CoV-2 (Agent of COVID-19) Not Detected by RT-PCR or equivalent method. This test has been authorized by FDA under an Emergency Use Authorization (EUA). [facility]H HospitalComment on above:Performed By: #### [id number] ####[facility] LABORATORYCLIA [id number] [facility] [place] [address] [facility] HOSPITALCNMercy Memorial Hospital 29-33-0974YSGVGBF ID: [id number] Author: NICIKE Garay Service: Orthopaedic Surgery Author Type: Physician Returns Clerk Type: Discharge Summary Filed: 05/04/2021 11:28 [...] deficits noted. 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 Surgical dressing in [...] twice daily. Associated Diagnoses:Coronary artery disease involving [place] coronary artery of [place] heart without angina pectoris; Essential hypertension; Hyperlipidemia, [...] Dept Phone 05/24/2021 9:30 AM NEHEMIAH GILBERT [place] [phone] 06/14/2021 9:15 AM KEV FERRELL [phone] SIGNATURE: NICKIE Garay PATIENT NAME: Fahad Sotelo DATE: 05/04/21 TIME: 11:25 [facility] 19-15-5033DEOTELI PROGHNO ID: [id number] Author: Mary eBnoit RN Service: Nursing Author Type: Registered Nurse Type: Nursing Progress Note Filed: 05/03/2021 4:10 PM Note Text: Nursing Progress Note Patient Name: Fahad Sotelo Patient Location: [facility]/ Daily Note: Page sent to the surgical pager [phone]. To update on patient status. MCGIRT 520- Could you order some laxatives? Hes concerned about a BM and also he is not leaving today. Evaluated by PT AND failed. Recommending SNF. Mary 5550 This note was completed by: Mary HerreraDuane L. Waters HospitalTHERAPY NTon 58-81-6078OHQHYTH NTHNO ID: [id number] Author: Leila Nogueira, PT Service: Physical Therapy Author Type: Physical Therapist Type: Therapy (PT/OT/Speech/Resp) Filed: 05/03/2021 2:40 PM Note Text: Physical Therapy Evaluation SERVICE DATE: 05/03/2021 SERVICE TIME: 1352 to 1418 ROOM: [place] [address] Recommended Discharge Disposition: Subacute/SNF Recommended Discharge Disposition [...] normally completes Equipment Owned: Cane;Wheeled Walker;Elevated Toilet Seat;Chief Dispatcher Service;Sock Aid Prior Functional Level: Within Functional Limits Prior Functional Level Comments: 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 when getting out [...] length decreased;Weight bearing decreased;Stance time decreased General Deviations/Observations: Loss of Balance;Trunk Control Decreased;Lateral sway increased -HLM: 7: Walk 25 feet or more Learning/Educational Needs: Discharge Plan;Functional Activities/Mobility;Plan of Care;Rehabilitation Techniques and Procedures Goals for [...] developed with: Patient TREATMEN (more content not included)...[facility] ID: [id number] Author: Aislinn Huffamn OT/L Service: Occupational Therapy Author Type: Occupational Therapist Type: Therapy (PT/OT/Speech/Resp) Filed: 05/03/2021 2:39 PM Note Text: Occupational Therapy Evaluation SERVICE DATE: 05/03/2021 SERVICE TIME: 1023 to 1155 ROOM: [place] [address] Recommended Discharge Disposition: Subacute/SNF Recommended Discharge Disposition [...] Education;Self Care / Home Management;Energy Conservation Training;Joint Mobility;Strengthening;Functional Mobility Training;Balance Training Home Environment Patient Lives [...] normally completes Equipment Owned: Cane;Wheeled Walker;Elevated Toilet Seat;Chief Dispatcher Service;Sock Aid Prior Functional Level: Within Functional Limits Prior Functional Level Comments: 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 when getting out [...] activity not attempted Learning/Educational Needs: Discharge Plan;Equipment;Family Education/Training;Functional Activities/Mobility;OT In-Hospital Exercise Program;Plan of Care;Precautions;Rehabilitation Techniques and Procedures;Safety;Self Care Goals for Plan [...] daily living (ADL);Muscle Weakness (generalized);Reduced mobility-other;Lack of coordination-other;General symptoms and signs-other Interventions Provided: Evaluation;Therapeutic Exercise (25748);Self Jail Management (39185) $ Evaluation-Modera (more content not included)...[facility] POSTPROC EVALon [id number] POSTPROC EVALHNO ID: [id number] Author: Vipul Do MD Service: Anesthesiology Author Type: Anesthesiologist Type: Anesthesia Postprocedure Evaluation Filed: 05/02/2021 3:18 PM Note Text: POST ANESTHESIA EVALUATION NOTE : 1950 Procedure Summary Date: 05/02/21 Room / Location: OR / AV OR Anesthesia Start: 737 Anesthesia [...] May 02, 2021 TIME: 3:18 PM CSN: [id number] HospitalANES PRE-OPon [id number] PRE-OPHNO ID: [id number] Author: Vipul Do MD Service: Anesthesiology Author [...] and consent discussed: yes. Patient / Responsible [employer] agrees to proceed: yes Patient / [...] May 02, 2021 TIME: 7:13 AM CSN: [id number] [facility] NOTon [id number] OP NOTHNO ID: [id number] Author: Kev Ferrell MD Service: Orthopaedic Surgery Author Type: Physician Type: Brief Op Note Filed: 05/02/2021 10:15 AM Note Text: BRIEF OPERATIVE / PROCEDURE NOTE LOG ID: [id number] SURGERY/PROCEDURE DATE: 05/02/2021 INCISION/PROCEDURE START TIME: 8:23 AM INCISION CLOSE/PROCEDURE END TIME: 10:10 AM SURGEON(S)/PROCEDURALIST(S) AND WIRELESS ARCHITECT(S): Surgeon(s) and Role: * Kev Ferrell MD - Primary * Kimani Gutierres MD - Assisting Physician Returns Clerk: Nehemiah Gilbert PA-C SURGERY/PROCEDURE(S): Right Reverse Total Shoulder Arthroplasty Biceps Tenodesis ANESTHESIA: General/ GET With Scalene Catheter FINDINGS: RCT OA ESTIMATED BLOOD LOSS: 100 mls SPECIMENS: None COMPLICATIONS: None IMPLANTS: Hayden BiometComprehensive Reverse TSR PRE-OP/PRE-PROCEDURE DIAGNOSIS: Non Traumatic RCT, OA, Rotator Cuff Arthropathy POST-OP/POST-PROCEDURE DIAGNOSIS: Same as Preop SIGNATURE: Kev Ferrell MD PATIENT NAME: Fahad Sotelo DATE: May 02, 2021 TIME: 10:06 [facility] PROJ.[facility] [id number] PROGHNO ID: [id number] Author: Ana Lal RN Service: ? Author Type: Registered Nurse Type: Nursing Progress Note Filed: 05/02/2021 7:57 PM Note Text: Nursing Progress Note Patient Name: Fahad Sotelo [facility] Daily Note: Admitted from PACU s/p right reversed shoulder. alert and oriented X 3, pleasant. No c/o pain at this time. Good PO intake. Skin checks done with LEATHA Hernandez. No pressure ulcer noted. This note was completed by: [facility] [place] 12-43-3527VFNJKDCHJ NOHNO ID: [id number] Author: Kev Ferrell MD Service: Orthopaedic Surgery Author Type: Physician Type: Operative Report Filed: 05/04/2021 9:35 AM Note Text: [facility] - Operative Report FAHAD SOTELO : 1950 AGE: 70. SEX: M [facility]: [facility] LOCATION: [facility] ATTENDING PHYSICIAN: Kev Ferrell MD CSN NUMBER: [id number] DATE OF SURGERY/PROCEDURE: 05/02/2021 INCISION/PROCEDURE START TIME: 0823 hours. INCISION CLOSE/PROCEDURE END TIME: 1010 hours. PREOPERATIVE DIAGNOSIS: 1. Right shoulder rotator cuff arthropathy. 2. Chronic nontraumatic rotator cuff tear. 3. Osteoarthritis. POSTOPERATIVE DIAGNOSIS: 1. Right shoulder rotator cuff arthropathy. 2. Chronic nontraumatic rotator cuff tear. 3. Osteoarthritis. SURGEON: Kev Ferrell MD WIRELESS ARCHITECT: 1. Kimani Gutierres M.D. Dr. Gutierres assisted [...] reamer. This had good (more content not included)...[facility] HospitalXR SHOULDER 2V AP/TRUE AP RTon [id number] SHOULDER 2V AP/TRUE AP RT* * *Final Report* * * DATE OF [...] to right shoulder arthroplasty with anatomic alignment. Assistant Professor Of Mathematics: DEEPIKA Transcribe Date/Time: May 02 2021 11:53A Dictated by : KIZZY COLEMAN MD This examination was interpreted and the report reviewed and electronically signed by: KIZZY COLEMAN MD on May 02 2021 11:53AM EST [id number] L. Waters HospitalCT SHOULDER WO IVCON RTon 01-04-2021 [facility] Should[facility] - right 4 Viewson [id number]: Findings consistent with chronic rotator cuff tear and mild cuff arthropathy. Assistant Professor Of Mathematics: DEEPIKA Transcribe Date/Time: Dec 21 2020 11:51A Dictated by : FELIX SANDOVAL DO This examination was interpreted and the report reviewed and electronically signed by: ENID SMITH MD on Dec 21 2020 3:31PM EST DIVISION OF RADIOLOGY* * *Final Report* * * DATE OF [...] along the superior joint capsule. DIVISION OF RADIOLOGYProvimercy health [facility], [facility] [place] - 12/21/2020 * * *Final Report* * [...] rotator cuff tear and mild cuff arthropathy. Assistant Professor Of Mathematics: DEEPIKA Transcribe Date/Time: Dec 21 2020 11:51A Dictated by : FELIX SANDOVAL, DO This examination was interpreted and the report reviewed and electronically signed by: ENID SMITH MD on Dec 21 2020 3:31PM EST [facility]stownRadiology Study observation (narrative)[facility]stownXR Shoulder - right 4 ViewsOrdered By: Ccf Provider on 04-15-4079Eqytpdvzo ClinicMR Shoulder - right WO contraston [id number]: 1. Complete retracted tear of the supraspinatus and infraspinatus tendons and superimposed infraspinatus muscle strain 2. Subscapularis tendinosis and partial tear 3. Diffuse biceps tendinosis and moderate partial tear 3. Glenohumeral osteoarthritis with degeneration of the labrum and joint effusion Assistant Professor Of Mathematics: PSCB Transcribe Date/Time: Aug 10 2020 1:18P Dictated by : GASPER KNIGHT MD This examination was interpreted and the report reviewed and electronically signed by: GASPER KNIGHT MD on Aug 10 2020 1:23PM EST DIVISION OF RADIOLOGY* * *Final Report* * * DATE OF [...] tuberosities and posterolateral humeral head. DIVISION OF RADIOLOGYProvider, [facility] [place] - 08/10/2020 * * *Final Report* * [...] degeneration of the labrum and joint effusion Assistant Professor Of Mathematics: DEEPIKA Transcribe Date/Time: Aug 10 2020 1:18P Dictated by : GASPER KNIGHT MD This examination was interpreted and the report reviewed and electronically signed by: GASPER KNIGHT MD on Aug 10 2020 1:23PM EST [facility]stownRadiology Study observation (narrative)[facility] YoungstownMR Shoulder - right WO contrastOrdered By: Ccf Provider on 35-37-1808Oalmwyzbl ClinicCT LUMBAR SPINE WO IVCONon [id number] ClinicXR Pelvis and Hip - right AP and Lateral frogon [id number]: Bilateral hip joint degenerative changes as described. Assistant Professor Of Mathematics: DEEPIKA Transcribe Date/Time: Apr 15 2020 4:27P Dictated by : MARSHAL STOVALL MD This examination was interpreted and the report reviewed and electronically signed by: MARSHAL STOVALL MD on Apr 15 2020 4:29PM EST DIVISION OF RADIOLOGY* * *Final Report* * * DATE OF [...] femurs. No other significant abnormality. DIVISION OF RADIOLOGYProvider, [facility] [place] - 04/15/2020 * * *Final Report* * [...] Bilateral hip joint degenerative changes as described. Assistant Professor Of Mathematics: PSCB Transcribe Date/Time: Apr 15 2020 4:27P Dictated by : MARSHAL STOVALL MD This examination was interpreted and the report reviewed and electronically signed by: MARSHAL STOVALL MD on Apr 15 2020 4:29PM [facility] HospitalRadiology Study observation (narrative)[facility]XR Pelvis and Hip - right AP and Lateral frogOrdered By: Ccf Provider on 04-15-2020 [facility] Vital Signs Date TimeVital SignValuePerforming KsltwrqpwNzuqpmqs50-89-9047 10:30-0500 Diastolic blood nzrroyik45 mm[Hg]Nydia Ly DO Work Phone: 1(352)279-[address] [place], [place] 1931011-11-2025 10:30-0500 Heart rate60 /minCatherine Ly DO Work Phone: 1(444)598-[address] [place], [place] 1931011-11-2025 10:30-0500 Respiratory rate16 /minCatherine Ly DO Work Phone: [phone])228-[address] [place], [place] 1931011-11-2025 10:30-0500 SaO2% (BldA) [Mass fraction]98 %Nydia Ly DO Work Phone: 1(387)569-[address] [place], [place] 1931011-11-2025 10:30-0500 Systolic blood deluauwg756 mm[Hg]Nydia Ly DO Work Phone: 1(702)597-[address] [place], [place] 1931011-11-2025 08:30-0500 Body zvtetg345.26 cmCatherine Ly DO Work Phone: 1(008)402-[address] [place], [place] 1931011-11-2025 08:30-0500 Body rsinmx04.8 kgCatherine Ly DO Work Phone: [phone])444-[address] [place], [place] 1931010-03-2025 10:25-0400 Body bizzwt895.26 cmCatherine Ly DO Work Phone: [phone])[address]10-03-2025 10:25-0400 Body mass index (BMI) [Ratio]32.3 kg/s9Wsbwtfkma Ly DO Work Phone: 1(271)6-[address] [place], [place] 1931010-03-2025 10:25-0400 Body .33 kgCatherine Ly DO Work Phone: [phone])[address] [place], [place] 2801810-03-2025 10:25-0400 Diastolic blood ououiomc09 mm[Hg]Nydia Ly DO Work Phone: 1(379)[address] [place], [place] 2801810-03-2025 10:25-0400 Heart rate64 /minCatherine Ly DO Work Phone: 1(909)[facility] [place], [place] 1931010-03-2025 10:25-0400 Systolic blood vjhmfixn422 mm[Hg]Nydia Ly DO Work Phone: 1(880)[address] [place], [place] 2801809-25-2025 10:29-0400 Body agmjnp677.8 cmSukumar Mack RETREAD TECHNICIAN Work Phone: [facility] HospitalIhihkjfgpv79-50-3695 10:29-0400Body mass index (BMI) [Ratio]31.14 kg/m2Sukumar Mack RETREAD TECHNICIAN Work Phone: [facility] HospitalRhltnxlxef76-63-0584 10:29-0400Body xhfjwa25.43 kgSukumar Mack RETREAD TECHNICIAN Work Phone: [facility] HospitalRuivbdfqks48-04-3196 10:29-0400Diastolic blood mm[Hg]Sukumar Mack RETREAD TECHNICIAN Work Phone: [facility] HospitalKqoldedlom66-46-9831 10:29-0400Heart rate67 /min Sukumar Mack RETREAD TECHNICIAN Work Phone: [facility] HospitalEsmtbgolrm14-40-3731 10:29-0400Respiratory rate16 /minKim Mack RETREAD TECHNICIAN Work Phone: [facility] HospitalBjvqkbgrah18-36-6928 10:29-8006DyZ3% (BldA) [Mass fraction]97 %Sukumar Mack RETREAD TECHNICIAN Work Phone: [facility] [place] HospitalOhipudsump72-07-9002 10:29-0400Systolic blood adfgkxxl47 mm[Hg]Sukumar Mack RETREAD TECHNICIAN Work Phone: [facility] HospitalWvhfspqxni72-97-2630 09:33-0400Body jbjgud392.8 cmStanton Velasco MD Work Phone: [facility] HospitalTxulrvgvph80-23-8131 09:33-0400Body mass index (BMI) [Ratio]31.28 kg/s6MmtwatStanton Velasco MD Work Phone: [phone] HospitalZdbkpzdyov24-31-1671 09:33-0400Body uzrijf12.88 kgStanton Velasco MD Work Phone: [facility] [place] HospitalJrhggpzzdf54-06-1417 09:33-0400Diastolic blood vanvrsqo90 mm[Hg]Stanton Velasco MD Work Phone: [facility] HospitalPpwkbkfwzo43-77-8072 09:33-0400Heart rate64 /min Stanton Velasco MD Work Phone: [phone] HospitalArzcycfund58-41-3495 09:33-1399EmB1% (BldA) [Mass fraction]94 %Stanton Velasco MD Work Phone: [facility] HospitalKyngwtjlvn68-68-5066 09:33-0400Systolic blood khyotmbj525 mm[Hg]Stanton Velasco MD Work Phone: [facility] HospitalIuyekwfszv84-74-7974 09:19-0400Body bkyuhy631.8 cmStanton Velasco MD Work Phone: [phone] [address]Olemgbhnwc55-70-7687 09:19-0400Body mass index (BMI) [Ratio]31.28 kg/h1SfsyzpStanton Velasco MD Work Phone: [place] [address]Nozqcaziom44-80-4664 09:19-0400Body rrkbaa63.88 kgStanton Velasco MD Work Phone: [place] [address]Ugdpfugfef07-97-1049 09:19-0400Diastolic blood dfopzeut23 mm[Hg]Stanton Velasco MD Work Phone: [facility] HospitalBuuzjyumvi85-50-5504 09:19-0400Heart rate59 /min Stanton Velasco MD Work Phone: [facility] HospitalUqxfbyolwz93-24-5700 09:19-3689LmC3% (BldA) [Mass fraction]97 %Stanton Velasco MD Work Phone: [facility] [place] HospitalXqjorqxkbl22-41-7942 09:19-0400Systolic blood vedoomfr505 mm[Hg]Stanton Velasco MD Work Phone: [facility] HospitalQjoaxraktf00-57-7044 12:01-0400Blood Pressure LocationMojose alejandro Solorio 233-9891Apdalh-UndczCenterville05-19-2025 12:01-0400Diastolic blood wgtebqqz34 mm[Hg]Hema Solorio [phone]-ZpwzxCenterville05-19-2025 12:01-0400Heart rate58 /minHema Solorio 847-2357Twcrav-HiwcgCenterville05-19-2025 12:01-0400Systolic blood fpuqplla043 mm[Hg]Hema Solorio 350-4333Ypjvnw-KbgfeCenterville03-05-2025 14:21-0500Body iilvtl660.8 cmSukumar Mack RETREAD TECHNICIAN Work Phone: [facility] HospitalHrndeqntfi76-19-3409 14:21-0500Body mass index (BMI) [Ratio]31.41 kg/m2Sukumar Mack RETREAD TECHNICIAN Work Phone: [facility] HospitalTyvbwldaiw34-79-5226 14:21-0500Body ymoukq49.29 kgSukumar Mack RETREAD TECHNICIAN Work Phone: [facility] HospitalWfwnquhgys30-57-4801 14:21-0500Diastolic blood feardqyi54 mm[Hg]Sukumar Mack RETREAD TECHNICIAN Work Phone: [facility] [place] [facility] HospitalObvcbrxezc52-18-6519 14:21-0500Heart rate68 /min Sukumar Mack RETREAD TECHNICIAN Work Phone: [facility] HospitalWyypfvryiy46-04-5315 14:21-0500Respiratory rate16 /minSukumar Mack RETREAD TECHNICIAN Work Phone: [facility] HospitalBrfgkcifte52-16-7490 14:21-4780RdX6% (BldA) [Mass fraction]96 %Sukumar Mack RETREAD TECHNICIAN Work Phone: [facility] HospitalAbwfqnelzj55-32-3971 14:21-0500Systolic blood zgomuybw113 mm[Hg]Sukumar Mack RETREAD TECHNICIAN Work Phone: [facility] [place] [facility] HospitalCskmqccyuu71-65-6289 11:29-0500Body hgwgti559.8 cmKaren Hemmer PA Work Phone: [facility] HospitalYtnogacrmp53-67-2834 11:29-0500Body mass index (BMI) [Ratio]31.91 kg/l3Qqcnr Hemmer PA Work Phone: [facility] [place] [facility] HospitalVqeyjdedvt22-21-4510 11:29-0500Body jqoxtx182.88 kgKaren Hemmer PA Work Phone: [facility] HospitalMgmmoxugzg93-84-2463 11:29-0500Diastolic blood diurbsdi60 mm[Hg]Christina Hemmer PA Work Phone: [facility] HospitalGmbuwfabni81-34-1155 11:29-0500Heart rate65 /min Christina Hemmer PA Work Phone: [facility] HospitalUfuyrkwacu45-61-4677 11:29-0500Respiratory rate16 /minKaren Hemmer PA Work Phone: [facility] [place] [facility] HospitalSffofjukfz64-57-0753 11:29-2409AbC4% (BldA) [Mass fraction]97 %Christina Hemmer PA Work Phone: [facility] HospitalNlkixenpfd04-40-6456 11:29-0500Systolic blood jyjadolu639 mm[Hg]Christina Hemmer PA Work Phone: [facility] [place] [facility] HospitalYoyqxevbmw24-18-9800 08:50-0500Body lbdlou401.8 cmStanton Velasco MD Work Phone: [facility] HospitalYebclnxofb34-52-4250 08:50-0500Body mass index (BMI) [Ratio]32 kg/h1AxccmrStanton Velasco MD Work Phone: [facility] HospitalArrghsxbau52-15-9659 08:50-0500Body .15 kgStanton Velasco MD Work Phone: [facility] HospitalFlrkyzahtq41-61-6931 08:50-0500Diastolic blood nzzytgwv64 mm[Hg]Stanton Velasco MD Work Phone: [phone])[facility]-[address] [place], [place] [address]Yonoyatbbv43-44-6871 08:50-0500Heart rate59 /min Stanton Velasco MD Work Phone: 1(271)[facility] [place], [place] [address]Ypjepfahrx92-58-5039 08:50-3556YoG9% (BldA) [Mass fraction]96 %Stanton Velasco MD Work Phone: 1(423)[facility]-[address] [place], [place] [address]Rijwxcwbyk92-39-0509 08:50-0500Systolic blood fngxwicz221 mm[Hg]Stanton Velasco MD Work Phone: 1(320)[facility]-[address] [place], [place] [address]Dvknqzgvys14-91-2280 09:10-0500Body nazmyv210.8 cmStanton Velasco MD Work Phone: 1(252)[facility] [place], [place] [address]Bdverdseak24-83-2955 09:10-0500Body mass index (BMI) [Ratio]32 kg/w5MwtezaStanton Velasco MD Work Phone: 1(386)[facility] [place], [place] [address]Gghqgtdxas55-35-0196 09:10-0500Body .15 kgStanton Velasco MD Work Phone: [phone])[facility] [place], [place] [address]Fnxgmkpotn16-03-6554 09:10-0500Diastolic blood mm[Hg]Stanton Velasco MD Work Phone: 1(429)[facility] [place], [place] [address]Rynkhmfwbj05-73-0716 09:10-0500Heart rate64 /min Stanton Velasco MD Work Phone: 1(885)[facility] [place], [place] [address]Uzpxwdiugi17-42-4462 09:10-4230UdM6% (BldA) [Mass fraction]95 %Stanton Velasco MD Work Phone: 1(549)[facility]-36[address] HospitalIimmgsbirn10-18-7743 09:10-0500Systolic blood wziflfas848 mm[Hg]Stanton Velasco MD Work Phone: [facility] HospitalKvtrdmjcov06-86-6686 13:22-0400Diastolic blood ulhepeuo37 mm[Hg]Louie Salomon MD Work Phone: [facility]10-30-2024 13:22-0400Heart rate63 /min Louie Salomon MD Work Phone: [phone]10-30-2024 13:22-0400Systolic blood ubfphqvy307 mm[Hg]Louie Salomon MD Work Phone: [facility]09-20-2024 11:03-0400Body .8 cmDayancy Velasco MD Work Phone: [facility] HospitalSjgvwdemtd42-97-1386 11:03-0400Body mass index (BMI) [Ratio]31.71 kg/h8CfmaghStanton Velasco MD Work Phone: [facility] HospitalGvsmdenaad23-93-9038 11:03-0400Body .25 kgStanton Velasco MD Work Phone: [facility] HospitalOlrwkabwfz34-76-7318 11:03-0400Diastolic blood nnsnvpik50 mm[Hg]Stanton Velasco MD Work Phone: [facility] HospitalOwddavbrjh12-33-1349 11:03-0400Heart rate78 /min Stanton Velasco MD Work Phone: [facility] HospitalRewtdgting75-83-3443 11:03-3834GvA1% (BldA) [Mass fraction]94 %Stanton Velasco MD Work Phone: [facility] HospitalDrtmhjrjsv49-73-2947 11:03-0400Systolic blood sjsttdic853 mm[Hg]Stanton Velasco MD Work Phone: [facility] HospitalFoqyonurhp66-74-6883 09:41-0400Body .5 cmPacc 1 Work Phone: [facility]05-23-2024 09:41-0400Body mass index (BMI) [Ratio]32.73 kg/m2Pacc 1 Work Phone: [facility]05-23-2024 09:41-0400Body temperature 97.9 [degF]Pacc 1 Work Phone: [facility]05-23-2024 09:41-0400Body kuqeep834 kg Pacc 1 Work Phone: [facility]05-23-2024 09:41-0400Diastolic blood rowdrcix27 mm[Hg]Pacc 1 Work Phone: [facility]05-23-2024 09:41-0400Heart rate65 /min Pacc 1 Work Phone: [facility]05-23-2024 09:41-0400Respiratory rate 16 /minPacc 1 Work Phone: [facility]05-23-2024 09:41-4794JaM9% (BldA) [Mass fraction]97 %Pacc 1 Work Phone: [facility]05-23-2024 09:41-0400Systolic blood fgzerzzn397 mm[Hg]Pacc 1 Work Phone: [facility]05-08-2024 10:19-0400Diastolic blood awfjpmut98 mm[Hg]Louie Salomon MD Work Phone: [facility]05-08-2024 10:19-0400Heart rate64 /min Louie Salomon MD Work Phone: [phone]05-08-2024 10:19-0400Systolic blood lcbztoig039 mm[Hg]Louie Salomon MD Work Phone: [phone]04-22-2024 11:39-0400Body temperature 97.3 [degF]Radha Ramos MD Work Phone: [facility]04-22-2024 11:39-0400Diastolic blood ugciqroz30 mm[Hg]Radha Ramos MD Work Phone: [facility]04-22-2024 11:39-0400Heart rate61 /min Radha Ramos MD Work Phone: [facility]04-22-2024 11:39-0400Systolic blood txljqhha847 mm[Hg]Radha Ramos MD Work Phone: [facility] Encounters Encounter DateEncounter TypeCare ProviderFacilityStart: 12-23-2024 End: 04-52-6700acnwelmcgkUbqgyw Berrycility:[facility] Start: 03-24-6883Kao-patient / Non-visitCatherine L Ly DO-[facility] Work Phone: Start: 12-17-2024 End: 62-22-0268qvhgkvrzlfYRGUI M BOGARDFacility:[facility]tart: 12-05-2024 End: 91-49-1112Fwiutne encounter procedureCatherine L Ly DO-[facility] [place] Work Phone: Start: 12-05-2024 End: 37-17-1908thnrmeyxaxQOJ STAFF-[facility] HospitalStart: 11-25-2024 End: 55-27-5439dchxqoktqeFEICUCRToledo Hospitaltart: 11-14-2024 End: 80-33-5993gsbawhpogxVFR [facility] Work Phone: Start: 11-14-2024 End: 20-71-6564Raqnwrw encounter procedureCatherine L Ly DO-[facility] Work Phone: Start: 11-13-2024 End: 00-45-6993Lxpdhpshh Result EncounterGeneric External Data ProviderNOMS External Department UnsolicitedStart: 11-13-2024 End: 32-10-3598Yjiknzmov Result EncounterGeneric External Data ProviderNOMS External Department UnsolicitedStart: 11-06-2024 End: 64-96-7360Ykjbohmaria l Mack RETREAD TECHNICIAN Work Phone: NOM[facility] Family MedinceStart: 11-06-2024 End: 84-85-4719Xngisvmarysol Mack RETREAD TECHNICIAN Work Phone: [facility] Hor[facility] MedinceStart: 11-06-2024 End: 18-78-4946Znnzqc outpatient visit 25 minutesSukumar Mack RETREAD TECHNICIAN Work Phone: [facility] Horowitz MedinceComment on above:Chronic idiopathic constipation (Primary Dx)Start: 11-06-2024 End: 83-16-1305yyjylthvvjKAR C MILLERNot AvailableStart: 10-28-2024 End: 45-20-0952Trbhnajmn Result EncounterGeneric External Data ProviderNOMS External Department UnsolicitedStart: 10-28-2024 End: 78-74-3933Kbzoozitq Result EncounterGeneric External Data ProviderNOMS External Department UnsolicitedStart: 10-28-2024 End: 21-88-2282Dgixdth encounter procedureSara Leonardo RT(R)RadiologyComment on above:Closed nondisplaced fracture of acromial end of right clavicle with routine healing, subsequent encounter (Primary Dx)Start: 10-28-2024 End: 76-92-4706mnhrdkhhxkQayt Leonardo RT(R)RadiologyComment on above:Radiology XRStart: 10-28-2024 End: 79-68-2645Eycdaxvpzd hospital visit by physicianGeorgina Gonzalez 1 Work Phone: RadiologyComment on above:Closed nondisplaced fracture of acromial end of right clavicle with routine healing, subsequent encounter [S42.034D]Start: 10-24-2024 End: 96-87-0029Whzcyq Maite Velasco MD Work Phone: [facility] Hor[facility] MedinceStart: 10-24-2024 End: 70-51-5098Xoxomd Maite Velasco MD Work Phone: [facility] Family MedinceStart: 10-24-2024 End: 19-93-6948Ndnvoyu encounter procedureChris Clements MD Work Phone: General SurgeryComment on above:Unilateral groin pain (Primary Dx); Right inguinal herniaStart: 10-24-2024 End: 84-56-2420xbtsicceqoVQYVA M BOGARDFacility:[facility]tart: 10-24-2024 End: 96-65-1328Mnuboi outpatient visit 15 minutesStanton Velasco MD Work Phone: noms Jef Horowitz MedinceComment on above:Left-sided chest pain (Primary Dx); 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Start: 10-24-2024 End: 71-31-3187jzviludswjXYYQYN B BERRYNot AvailableStart: 10-22-2024 End: 58-15-5834ugdttpvkavDJNXVJOToledo Hospitaltart: 10-20-2024 End: 61-03-2418Zrfxbpkuu Result EncounterStanton Velasco MD Work Phone: noms External Department UnsolicitedStart: 10-20-2024 End: 64-35-3195Klygktdpn Result EncounterStanton Velasco MD Work Phone: noms External Department UnsolicitedStart: 10-17-2024 End: 54-02-3197Ksrsac outpatient visit 25 minutesStanton Velasco MD Work Phone: noms Jef Horowitz MedinceComment on above:Left-sided chest pain (Primary Dx); 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 ; Chronic ischemic heart diseaseStart: 10-17-2024 End: 34-40-0827xrpsmalubdPVWZDO B BERRYNot AvailableStart: 09-19-2024 End: 25-06-3574Yrglydvwy Result EncounterGeneric External Data ProviderNOMS External Department UnsolicitedStart: 09-19-2024 End: 12-94-0988Bdydukmud Result EncounterGeneric External Data ProviderNOMS External Department UnsolicitedStart: 09-19-2024 End: 27-89-0848Lkwrltncud hospital visit by physicianGeorgina Dixon Work Phone: RadiologyComment on above:Closed nondisplaced fracture of acromial end of right clavicle, initial encounter [S42.034A]Start: 09-19-2024 End: 54-58-4975mbmdhrymmsUPBHCG SERNAFacility:[facility]: 08-29-2024 End: 13-51-1909Ivfwkdrya Result EncounterGeneric External Data ProviderNOMS External Department UnsolicitedStart: 08-29-2024 End: 50-69-0067Vmolhvhzj Result EncounterGeneric External Data ProviderNOMS External Department UnsolicitedStart: 08-29-2024 End: 99-45-6083Xyjqldm encounter procedureRigo Jang RT(R)RadiologyComment on above:Right shoulder pain, unspecified chronicity (Primary Dx); Closed nondisplaced fracture of acromial end of right clavicle, initial encounterStart: 08-29-2024 End: 66-10-9108Rvvclcdocq hospital visit by physicianGeorgina Dixon Work Phone: RadiologyComment on above:Right shoulder pain, unspecified chronicity [M25.511]Start: 08-29-2024 End: 06-12-1436szizahmnovIsajuzwa Mann RT(R)RadiologyComment on above:Radiology XRStart: 08-26-2024 End: 49-59-1007Wosnpcgip to same day surgery waldenKristal Hare APRN.CNP Work Phone: Colorectal SurgeryComment on above:ManometryStart: 08-26-2024 End: 60-20-0996Pqfseav encounter Maci Hare APRN.CNP Work Phone: Colorectal SurgeryComment on above:Obstructive defecation (HCC) (Primary Dx); High-tone pelvic floor dysfunction; Constipation due to outlet dysfunctionStart: 08-26-2024 End: 27-93-1816wawfjkuokwBZUIYAGGM GARCIAFacility:[facility] Start: 08-18-2024 End: 35-87-4111Typakusby Result EncounterStanton Velasco MD Work Phone: noms External Department UnsolicitedStart: 08-18-2024 End: 22-61-6008Tqfhhpmzc Result EncounterStanton Velasco MD Work Phone: noms External Department UnsolicitedStart: 06-30-2024 End: 12-80-3862zimyqlasieJbgnhll A. MouchliFacility:[facility] DHStart: 06-30-2024 End: 93-31-0809Pctazoh encounter procedureMohamad A. Mouchli [phone]-FyknrMercer [facility] Start: 06-06-2024 End: 27-71-3208Wdtjvwbqa Result EncounterGeneric External Data ProviderNOMS External Department UnsolicitedStart: 06-06-2024 End: 49-43-4059Wcyipzpng Result EncounterGeneric External Data ProviderNOMS External Department UnsolicitedStart: 05-21-2024 End: 25-79-1952qzpmzmsbqcKCRP [facility]: 05-14-2024 End: 27-58-2781rrwpcepdbkIrqdkay A. MouchliFacility:FTMCStart: 05-14-2024 End: 48-36-8638Qchmsqt encounter procedureMohamad A. Mouchli [facility] Start: 05-14-2024 End: 60-87-7128wtqqtmgifuLpghmyc A. MouchliFacility:[facility] DHStart: 20-84-4546eavzxinucgKdifsyy MouchliFacility:[facility] DHStart: 05-05-2024 End: 06-03-5565xsxwwijnhwLurujsz A. MouchliFacility:[facility] DHStart: 04-16-2024 End: 31-61-1777Vlpfzh outpatient visit 25 minutesSukumar Mack RETREAD TECHNICIAN Work Phone: noms CI FMComment on above:Constipation, unspecified constipation type (Primary Dx); Chronic obstructive pulmonary disease, unspecified (CMS/HCC)Start: 04-16-2024 End: 42-22-3370fcgvvjwmrpMED C MILLERNot AvailableStart: 04-16-2024 End: 82-24-7615Yiztxy Yehuda Mack RETREAD TECHNICIAN Work Phone: NOMS CI FMStart: 04-16-2024 End: 24-63-1680Vpvyej Yehuda Mack RETREAD TECHNICIAN Work Phone: NOMS CI FMStart: 04-11-2024 End: 62-73-3193rsefbfxdwxDYWQC M BOGARDFacility:[facility]art: 04-11-2024 End: 13-11-5906Tatawaf encounter procedureChris Clements MD Work Phone: General SurgeryComment on above:Unilateral groin pain (Primary Dx)Start: 04-03-2024 End: 83-37-8341Gkstcn Salvatore Scott PA Work Phone: NOMS CI FMStart: 04-03-2024 End: 02-04-3488Rmxmvq Salvatore Scott PA Work Phone: NOMS CI FMStart: 04-03-2024 End: 54-51-6742Ceylqw outpatient visit 25 minutesChristina Scott PA Work Phone: NOMS CI FMComment on above:Chronic idiopathic constipation (Primary Dx)Start: 04-03-2024 End: 44-96-0081nlsovxnlxdHNDPR M HEMMERNot AvailableStart: 03-17-2024 End: 83-23-2935Ogyvjjjct encounterSarsh Dye MD Work Phone: UrologyStart: 03-07-2024 End: 89-68-9653Zovgzutlv Result EncounterStanton Velasco MD Work Phone: NOMS External Department UnsolicitedStart: 03-07-2024 End: 43-28-5095Oomscviwt Result EncounterStanton Velasco MD Work Phone: NOMS External Department UnsolicitedStart: 03-07-2024 End: 47-52-6295Ebxupk outpatient visit 25 minutesStanton Velasco MD Work Phone: NOMS CI FMComment on above:Benign essential hypertension (CMS/HCC) (Primary Dx); Pulmonary granuloma of histoplasmosis (HCC) (CMS/HCC); Dyslipidemia (CMS/HCC); Allergic rhinitis, unspecified seasonality, unspecified triggerStart: 03-07-2024 End: 77-63-5587yydytidwahOFUDDX B BERRYNot AvailableStart: 02-26-2024 End: 14-68-3629jggeazazjeZCTYG M BOGARDFacility:[facility]art: 02-25-2024 End: 91-16-2615Vziyselcg encounterSarsh Dye MD Work Phone: UrologyComment on above:Fax [facility]: 02-22-2024 End: 78-40-9145Hoxqbhmrb encounterSarsh Dye MD Work Phone: UrologyComment on above:Receiving Dock Checker - OtherStart: 02-18-2024 End: 28-43-2389Exqbumald encounterSarsh Dye MD Work Phone: UrologyComment on above:OrdersStart: 02-18-2024 End: 86-40-1080hqawnivbxsDmitxr P Vasavada MD Work Phone: UrologyComment on above:Inguinal hernia without obstruction or gangrene, recurrence not specified, unspecified laterality (P rimary Dx); Overactive bladder; Incomplete bladder emptyingStart: 02-18-2024 End: 43-67-5053Glhheoisbbvf consultation with patientSarsh Dye MD Work Phone: UrologyStart: 02-15-2024 End: 75-91-3283Snybed Maite Velasco MD Work Phone: NOMS CI FMStart: 02-15-2024 End: 58-11-3508Kjjere Maite Velasco MD Work Phone: NOMS CI FMStart: 02-15-2024 End: 86-38-1973Azsyk of hemosiderinAngelica MD Work Phone: [facility] HealthcareStart: 02-15-2024 End: 25-28-9846Euknxsb encounter procedureStanton Velasco MD Work Phone: NOMS FMComment on above:Routine general medical examination at health care facility (Primary Dx); ACP (advance care planning); Atherosclerosis of [place] coronary artery of [place] heart without angina pectoris (CMS/HCC); Benign essential hypertension (CMS/HCC); Raynaud's syndrome without gangrene; Chronic ischemic heart disease (CMS/HCC); Dyslipidemia (CMS/HCC); Chronic knee pain after total replacement of right knee joint; Presence of shoulder joint prosthesis; Primary osteoarthritis of both hips; Multiple nodules of lung; History of lumbar fusion; Prostate cancer screening; Acute sinusitis, recurrence not specified, unspecified locationStart: 02-15-2024 End: 11-07-6452datlslydmkKFNLGB B BERRYNot AvailableStart: 01-25-2024 End: 60-75-3259gojfsazlfsUpjvez M BaileyFacility:[facility]tart: 01-17-2024 End: 71-15-9399nwempcsgyzYTNGET P VASAVADAFacility:[facility] Start: 01-17-2024 End: 83-11-6982Xzqrpsl encounter Giovana Dye MD Work Phone: UrologyComment on above:Urinary frequency (Primary Dx); Urgency of urination; Incomplete bladder emptyingStart: 12-14-2023 End: 42-87-8031KoudkcJbcpywa Bandi PA-C Work Phone: UrologyComment on above:ResultsStart: 12-13-2023 End: 07-23-9487bczalntsrsZnux Martoccia LPNUrologyStart: 12-12-2023 End: 04-76-2463Geqbylsye Result EncounterGeneric External Data ProviderNOMS External Department UnsolicitedStart: 12-12-2023 End: 70-10-2951Udvgovsbd Result EncounterGeneric External Data ProviderNOMS External Department UnsolicitedStart: 12-12-2023 End: 12-09-0262Fnqremy encounter procedureLouie Salomon MD Work Phone: UrologyComment on above:Urinary urgency (Primary Dx); Obesity, Class I, BMI 30-34.9; Overactive bladder; Urinary retention; 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 stricture; Self-catheterizes urinary bladderStart: 12-12-2023 End: 41-07-1471gonigjooffJJZZI DEWITT-FOYFacility:[facility] HospitalStart: 11-13-2023 End: 14-96-7473Ktyvyjksk encounterLouie Salomon MD Work Phone: UrologyComment on above:Patient UpdateStart: 11-02-2023 End: 16-14-0359Oxwyxa Maite Velasco MD Work Phone: NOMS CI FMStart: 11-02-2023 End: 08-86-6941Htvgtt flowsArnulfo Velasco MD Work Phone: NOMS CI FMStart: 11-02-2023 End: 11-47-0466Zmmuaq outpatient visit 25 minutesDayancy Velasco MD Work Phone: NOMS CI FMComment on above:Chronic idiopathic constipation (Primary Dx); 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; Excessive sweatingStart: 89-34-2881Rkxrcieji encounterLouie Salomon MD Work Phone: UrologyStart: 93-15-4607Secqhsetg encounterLouie Salomon MD Work Phone: UrologyStart: 08-31-2023 End: 44-38-9423Fcsbtwz evaluation of patient and reportFlurourodynamicsUrology Comment on above:Urinary retention (Primary Dx)Start: 91-48-6842HnxenjCmknjqo Octavia PA-C Work Phone: UrologyComment on above:Refill RequestStart: 23-75-2257Vjmgiu OnlyBechanel Octavia PA-C Work Phone: UrologyComment on above:Dysuria (Primary Dx)Returning Patient's CallStart: 79-36-2085Mzjktwjvb encounterCorry Gregory APRN.CNP Work Phone: UrologyStart: 08-02-2023 End: 04-86-0803mscubkfnufWDUYBJ B BERRY IIFacility:[facility] HospitalStart: 31-93-4894Uyzeikrzi encounterMotonie Salomon MD Work Phone: UrologyStart: 07-05-2023 End: 60-86-5534Patqkctdt to [place] [address] Work Phone: pre AnesthesiaStart: 07-05-2023 End: 53-50-9106Oehjhrjzyv consultationAdriana [place] [address] Work Phone: Pre AnesthesiaComment on above:Pre-op evaluation (Primary Dx); Coronary artery disease involving [place] coronary artery of [place] heart without angina pectoris; Mixed hyperlipidemia; Essential hypertension; Urge incontinence; Cervical spondylosis with myelopathy; Obesity, Class I, BMI 30-34.9Start: 07-05-2023 End: 93-64-4738Qinypsdunjcyu examination [place] [address] Work Phone: [facility] Work Phone: Start: 06-28-2023 End: 68-73-8343Bplidvurd Result EncounterGeneric External Data ProviderNOMS External Department UnsolicitedStart: 06-28-2023 End: 38-74-8722Hkfrqizcu Result EncounterGeneric External Data ProviderNOMS External Department UnsolicitedStart: 06-20-2023 End: 72-66-3463Vmnvjlq encounter procedureMotonie Salomon MD Work Phone: UrologyComment on above:Stricture of male urethra, unspecified stricture type (Primary Dx); Urinary urgency; Low bladder compliance; Urinary frequencyStart: 06-20-2023 End: 61-36-2196dlufgcqqwxLJLZXB B BERRY IIFacility:[facility] HospitalStart: 41-59-6632Qkhzqnupn encounterRadha Ramos MD Work Phone: UrologyComment on above:Patient UpdateStart: 06-08-2023 End: 34-93-4348Iofmysb encounter procedureNurse Urol [facility] Rej Work Phone: UrologyComment on above:Stricture of male urethra, unspecified stricture type (Primary Dx); Post-traumatic stricture of anterior urethra; Self-catheterizes urinary bladderStart: 12-62-1646Upsurcver encounterRdaha Ramos MD Work Phone: UrologyStart: 10-32-6181Rdtksdsyy encounterRadha Ramos MD Work Phone: UrologyStart: 26-74-2033Ggnodwgmq encounterRadha Ramos MD Work Phone: Internal MedicineComment on above:Medication Question Start: 06-04-2023 End: 59-29-5328Rhxxxbh encounter procedureRadha Ramos MD Work Phone: UrologyComment on above:Screening for genitourinary condition (Primary Dx)Start: 34-53-7216InspbxYbgpsxhnb Clapp PA-C Work Phone: OrthopaedicsComment on above:Refill RequestStart: 05-15-2023 End: 90-61-0451Xzvcppm encounter Roderick Rhodes PA-C Work Phone: UrologyComment on above:Stricture of urethral meatus in male, unspecified stricture type (Primary Dx)Start: 75-45-5085nyjxejsmyfAwzw D Woods RT(R)RadiologyComment on above:Radiology XRStart: 06-23-2022 End: 55-74-2911Nbnjqbr encounter procedureKirstin Echeverria RT(R)[facility] Comment on above:Rotator cuff dysfunction, left (Primary Dx); History of failed repair of rotator cuff; Left shoulder pain, unspecified chronicityStart: 06-23-2022 End: 56-78-1441Nrhswnbpxk hospital visit by physicianGeorgina Dixon Work Phone: RadiologyComment on above:Left shoulder pain, unspecified chronicity [M25.512]Start: 06-07-2022 End: 96-29-9909qsbkmekshkCQ KRYSTAAB ELTAHAWYFacility:S5Hbqcf: 05-31-2022 End: 25-16-9704Nlvykqp encounter Raj Ramos MD Work Phone: UrologyComment on above:Screening for genitourinary condition (Primary Dx); Stricture of male urethra, unspecified stricture typeStart: 05-19-2022 End: 83-54-3867esulvgshgsWV STANTON VELASCOFacility:R6Crnrj: 04-25-2022 End: 53-92-0941Lospdrk encounter Roderick Rhodes PA-C Work Phone: UrologyComment on above:Stricture of male urethra, unspecified stricture type (Primary Dx); Urinary urgencyStart: 04-14-2022 End: 75-04-4902nrpfsqjypuZQ STANTON VELASCOFacility:V0Laxdr: 04-14-2022 End: 16-44-1927kzeeehwhjrLT DOCTOR MISCFacility:N1Mqosw: 03-23-2022 End: 12-49-8049dtjjaitsepFS TRACIE TELLEZ .Facility:F1Lnjvw: 11-15-2021 End: 58-70-4897Lyavkfz encounter procedureKev Ferrell MD Work Phone: OrthopaedicsComment on above:Chronic knee pain after total replacement of right knee joint (Primary Dx)Start: 11-15-2021 End: 51-02-8433Unwagdonic hospital visit by Cheikh Gonzalez 1 Work Phone: RadiologyComment on above:Chronic knee pain after total replacement of right knee joint [M25.561, G89.29, Z96.651]Start: 11-08-2021 End: 36-11-7593Yciuouv encounter procedureKev Ferrell MD Work Phone: OrthopaedicsComment on above:S/P reverse total shoulder arthroplasty, right (Primary Dx)Start: 11-08-2021 End: 32-72-1125Ucpkcjpnof hospital visit by Cheikh Dixon Work Phone: RadiologyComment on above:S/P reverse total shoulder arthroplasty, right [Z96.611]Start: 19-38-4485Dkywvlehw encounterNurse Urol Fairvw McUrologyComment on above:AppointmentStart: 04-52-3079Yxhjpregm encounter Fady Dye MD Work Phone: UrologyComment on above:OrdersStart: 10-13-2021 ambulatoryDR WATSON ROSADO AMBURNFacility:X6Jbezb: 07-15-2021 End: 35-63-4347fhpahivjuxQQ STANTON VELASCOFacility:P5Jiqpv: 89-77-5039Rqfckjigc encounterSarsh Dye MD Work Phone: UrologyComment on above:request for cath supplies Start: 07-79-5950ckavnmvcywLt [facility] EnterpriseStart: 06-14-2021 End: 71-46-6033Jqjitwz encounter procedureAlfred Ghassan CAMARGO Work Phone: OrthopaedicsComment on above:S/P reverse total shoulder arthroplasty, right (Primary Dx)Start: 06-07-2021 End: 45-86-3789Fdwanlk encounter procedureII Stanton Velasco Work Phone: [facility] HealthStart: 81-51-8965rgtbqffeowFbpt Leonardo RT(R)RadiologyComment on above: Radiology XRStart: 05-24-2021 End: 51-77-3872Mlgjdjk encounter procedureSara Leonardo RT(R)ORTH LORAINComment on above:S/P reverse total shoulder arthroplasty, right (Primary Dx)Start: 05-24-2021 End: 72-33-4150Jtmselsgew hospital visit by physicianGeorgina Gonzalez 1 Work Phone: RadiologyComment on above:Nontraumatic complete tear of right rotator cuff [M75.121]Start: 26-64-3249Xyfums Mark Cross MA OrthopaedicsComment on above:Nontraumatic complete tear of right rotator cuff (Primary Dx)Start: 03-92-1996Xuebshvxj encounterAlfred Ghassan CAMARGO Work Phone: OrthopaedicsComment on above:Patient QuestionStart: 04-12-2021 End: 42-45-0453Tuboqfoegfgch examination doneAlfred Ghassan CAMARGO Work Phone: [facility] Work Phone: Start: 63-38-8614Uqakbeboa for other preprocedural examinationBRENT [facility] HospitalStart: 01-04-2021 End: 46-07-9945Uyxuhyzhuq hospital visit by physicianCt [facility] [place] Work Phone: RadiologyComment on above:Nontraumatic complete tear of right rotator cuff [M75.121]Start: 12-21-2020 End: 95-17-4981Ccezzfxyvn hospital visit by physicianGeorgina Gonzalez 1 Work Phone: RadiologyComment on above:Right shoulder pain, unspecified chronicity [M25.511]Start: 08-10-2020 End: 17-91-1455Jipjyocqxx hospital visit by physiciani [facility] [place] (1.5t) Work Phone: RadiologyComment on above:Nontraumatic tear of right rotator cuff, unspecified tear extent [M75.101]Start: 06-29-2020 End: 72-52-3394Khbnuwfepx hospital visit by physicianCt [facility] [place] Work Phone: RadiologyComment on above:History of lumbar fusion [Z98.1]Start: 04-15-2020 End: 85-68-6349Ajixfyqkmy hospital visit by physicianGeorgina Gonzalez 1 Work Phone: RadiologyComment on above:Pain in right hip [M25.551] Start: 10-14-2019 End: 31-04-7557Mcaarsx encounter procedureMELCHERELLE DOMINGOFacility:[facility]MCStart: 05-04-2017 End: 71-88-8706Zqnvmse encounter statusAlfred Ghassan CAMARGO Work Phone: [facility] Work Phone: Procedures DateProcedureProcedure DetailPerforming ClinicianStart: 02-67-9514Vhodtgon tomography of abdomen and pelvis with contrastCatherine Ly DO Work Phone: Start: 26-80-9803CI ROSENDA PERF SPECT REST STRGeneric External Data ProviderStart: 08-18-4799Yfrwb clavicle completeNathaniel Ofelia PA-C Work Phone: Start: 14-02-6348JH CLAVICLE 2V RTGeneric External Data ProviderStart: 97-51-2258Kcgptc-up visitFollow UpBRESHILPI M BOGARDStart: 28-18-0209DC CHEST 2VDfatimah Velasco MD Work Phone: Start: 08-24-3916Bigmm clavicle completeNathaniel Ofelia PA-C Work Phone: Start: 85-92-3632CB CLAVICLE 2V RTGeneric External Data ProviderStart: 33-68-4553Qmbmg shoulder complete minimum 2 viewsAlfred Ghassan CAMARGO Work Phone: Start: 57-45-0749KT SHLDR 4V AP/LUCITA/LAT/OUTLET RT Generic External Data ProviderStart: 79-35-9317ZRPAP [place] ANORECT[facility]OMETRY Kristal Hare APRN.LIFESTYLE CONSULTANT Work Phone: Start: 80-65-2020JY SHOULDER RT MIN 2Payal Velasco MD Work Phone: Start: 62-95-8503YX ECHO DOPPLER COMPLETEGeneric External Data ProviderStart: 41-59-6766LR CHEST WO Jules Velasco MD Work Phone: Start: 55-80-6923YGX BACTERIA UR CULTGeneric External Data ProviderStart: 47-97-3274Nrbiw dip stick/tablet rgnt auto w/o microscopy Louie Salomon MD Work Phone: Start: 50-50-3510QK ROSENDA PERF SPECT REST STRGeneric External Data ProviderStart: 81-79-8858Utxya dip stick/tablet rgnt auto w/o microscopyWarangel Ramos MD Work Phone: Start: 13-78-4716Vkswn 1996 panel - Serum or Plasma Nithya Rhodes PA-C Work Phone: Start: 39-09-6857KotsskkjzupEavske Berry MD Work Phone: Start: 06-41-0431Ezpnuaz of operative procedure on kneeHistory of right knee joint replacementStanton Velasco MD Work Phone: Start: 78-57-3298Ltohn shoulder complete minimum 2 viewsNathaniel Ofelia PA-C Work Phone: Start: 98-02-5459Xumac dip stick/tablet rgnt auto w/o microscopyWahib Richard CAMARGO Work Phone: Start: 93-63-6486Pogfafuhtk examination knee 3 views Kev Ferrell MD Work Phone: Start: 32-31-6581Ujswh shoulder complete minimum 2 viewsNathaniel Ofelia PA-C Work Phone: Start: 38-21-8150ZitukocrqgoSdgaq Seibel PA-C Work Phone: Start: 45-87-7379Lztte cultureII Stanton Velasco Work Phone: Start: 30-66-2490Mdcum shoulder complete minimum 2 viewsNathaniel Ofelia PA-C Work Phone: Start: 05-04-2021 End: 05-23-2023H/O: artificial jointAftercare following joint replacement surgeryStanton Velasco MD Work Phone: Start: 93-09-6099Hojkp shoulder complete minimum 2 viewsNathaniel Ofelia PA-C Work Phone: Start: 54-73-6592Ill any jt upper extremity w/o contrast matrlDfatimah Medranoi PA-C Work Phone: Start: 42-80-7963Mw lumbar spine w/o contrast material Himanshu Barba MD Work Phone: Start: 86-66-4332Rdkms hip unilateral with pelvis 2-3 viewsJosemichael Espinoza MD Work Phone: Start: 12-17-1722Oxufu depression screening assessment Kev Ferrell MD Work Phone: Back structure, excluding neck (body structure)GOkey Comment on above:upper and lowerColonoscopyMohamad MD2U Comment on above:Due 2026History of repair of musculotendinous cuff of shoulderHistory of failed repair of rotator cuff Nehemiah Gilbert PA-C Work Phone: Knee region structure (body structure)GOkey Open heart surgeryMoDRB Systemsad MD2U Shoulder region structure (body structure)GOkey Stent, device (physical object)GOkey Comment on above:heart Plan of Treatment DateCare ActivityDetailAuthorStart: 57-54-1897Vnwvmtlvv for malignant neoplasm of colonNOMS HealthcareStart: 01-71-6781GIoF/Tdap/Td Vaccines (4 - Td or Tdap) DTaP/Tdap/Td Vaccines (4 - Td or Tdap)[facility] HealthcareStart: 86-77-2003Wmdud microalbumin profileDTaP,Tdap,Td Vaccine (3 - Td or Tdap)[facility]Start: 16-45-5057Ozhjb panelLipid ScreeningGarrett Park ClinicStart: 16-02-6423Gzlgnxka ScreeningDiabetes ScreeningRiverview Health Institutetart: 80-71-6190PR Controlled (<130/80)BP Controlled (<130/80)[facility]utetart: 01-03-2026Medicare Annual Wellness (AWV)Medicare Annual Wellness (AWV)[facility] HealthcareStart: 01-02-2025 End: 72-93-2731Vyizoje encounter zsgztzdez89/21/2025 11:00 AM EST Office Visit Orthopaedics [address] [place] [address] Kev Ferrell MD [address] [place] [address] 2.swOrthopaedicsComment on above:2.swStart: 12-23-2024 [facility]: 11-06-2024 End: 20-26-6570Msyysjm encounter kajzitktv88/25/2025 10:30 AM EDT Office Visit [facility] [place] [facility] [address] [place] [id number] Sukumar Mack, RETREAD TECHNICIAN [address] [place] [address] ArrivedNOMS Jef Horowitz MedinceComment on above:ArrivedStart: 10-28-2024 End: 23-72-9153Khpffle encounter procedureOrthopaedicsComment on above:1 month follow up -right shoulderright claviclefollow up right clavicle fxStart: 10-24-2024 End: 84-86-4021Tyghvse encounter procedureNOMS [place] Horowitz MedinceComment on above:ArrivedStart: 10-17-2024 End: 90-60-4869PG Chest 2 ViewsXR chest 2 views Imaging Routine Left-sided chest pain Expected: 10/17/2024, Expires: 10/17/2025[facility] Work Phone: Comment on above:Expected: 10/17/2024, Expires: 10/17/2025Start: 20-79-6059JHCIX-19 Vaccine ( season)COVID-19 Vaccine ( season)[facility] HealthcareStart: 67-75-1740Anitrfywf vaccination Influenza Vaccine (#1)[facility] HealthcareStart: 09-19-2024 End: 55-78-6254Hshqzbg encounter qceigkste41/08/2025 10:00 AM EDT Office Visit Orthopaedics [address] [facility] [place] [address] Kev Ferrell MD [address] [facility] [place] [address] 3 week follow up -right shoulderOrthopaedicsComment on above: 3 week follow up -right shoulderStart: 08-29-2024 End: 95-05-2895Kuxqitn encounter procedureOrthopaedicsComment on above:Fractured Clavicle (R)5 views right shoulderStart: 00-41-1272PF Controlled (<130/80)BP Controlled (<130/80)[facility]utetart: 02-99-5570IY Controlled (<130/80)BP Controlled (<130/80)[facility] Institutetart: 59-25-1554MO Controlled (<130/80)BP Controlled (<130/80)[facility]utetart: 04-10-2025Medicare Annual Wellness (AWV)Medicare Annual Wellness (AWV)[facility] HealthcareStart: 35-94-8835Jsstl-19 Vaccine ()Covid-19 Vaccine ()[facility]utetart: 04-16-2024 End: 76-36-7940Dvhcmtl encounter irjcpikfd89/05/2025 2:30 PM EST Office Visit [facility] CI FM [address] [facility] [address] [place] [address] Sukumar Mack, RETREAD TECHNICIAN [address] [facility] [address] [place] [address] ArrivedNOMS CI FMComment on above:ArrivedStart: 27-68-6810HMNZFUJC SCREENDIABETES SCREENRiverview Health Institutetart: 04-12-2024 Diabetes ScreeningDiabetes ScreeningRiverview Health Institutetart: 04-11-2024 End: 63-31-6647Cnwllhi encounter bbeqgseuw32/28/2025 1:30 PM EST Office Visit General Surgery [address] [place] [address] [place] [address] [place], [place] [id number] Inguinal hernia without obstruction or gangrene, recurrence not specified, unspe...General SurgeryComment on above:Inguinal hernia without obstruction or gangrene, recurrence not specified, unspe...Start: 04-06-2024 Hepatitis B surface antibody levelLDL CholesterolRiverview Health Institutetart: 04-03-2024 End: 17-91-8808Leipqyv encounter ezfvonbfz64/20/2025 11:30 AM EST Office Visit [facility] [address] [facility] [address] [place] [phone] Christina Scott PA [address] [facility] [address] [place] [address] ArrivedNOMS CI FMComment on above:ArrivedStart: 02-26-2024 End: 45-15-5839Ynspvid encounter zsofofgcx47/14/2025 1:45 PM EST Office Visit General Surgery [address] [place] [address] [place] [address] [place] [address] Inguinal hernia without obstruction or gangrene, recurrence not specified, unspe...General SurgeryComment on above:Inguinal hernia without obstruction or gangrene, recurrence not specified, unspe...Start: 02-22-2024 End: 00-01-9350Btnvoqx encounter mpzspsydv44/10/2025 1:45 PM EST Office Visit General Surgery [address] [place] [address] [place] [address] [place] [address] Inguinal hernia without obstruction or gangrene, recurrence not specified, unspe...General SurgeryComment on above:Inguinal hernia without obstruction or gangrene, recurrence not specified, unspe...Start: 02-15-2024 End: 41-96-3579Vsaekdrvgrmvr metabolic 2000 panel - Serum or PlasmaComprehensive metabolic panel Lab Routine Atherosclerosis of [place] coronary artery of [place] heartwithout angina pectoris (CMS/HCC) Expected: 02/15/2024 (Approximate), Expires: 02/14/2025NOMS HealthcareComment on above:Expected: 02/15/2024 (Approximate), Expires: 02/14/2025Start: 02-15-2024 End: 11-91-6997Ulbkg 1996 panel - Serum or PlasmaLipid panel Lab Routine Atherosclerosis of [place] coronary artery of [place] heart without angina pec toris ([facility]/HCC) Dyslipidemia ([facility]/HCC) Expected: 02/15/2024 (Approximate), Expires: 02/14/2025NOMS HealthcareComment on above:Expected: 02/15/2024 (Approximate), Expires: 02/14/2025Start: 02-15-2024 End: 69-86-3689Ilglsne encounter cqovbqaty52/03/2025 9:30 AM EST Office Visit [facility] [address] [facility] [address] [place] [address] Stanton Velasco MD [address] [facility] [address] [place] [address] ArrivedNOMS CI FMComment on above:ArrivedStart: 02-13-2024 Advance Directive DiscussionAdvance Directive DiscussionRiverview Health Institutetart: 01-01-2025Medicare Advantage Annual Wellness VisitMedicare Advantage Annual Wellness VisitRiverview Health Institutetart: 01-17-2024 End: 26-18-2025Cvxgwfa encounter kgvbbmejm82/05/2024 2:00 PM EST Office Visit Urology [address] [place] [address] SdusdgegFady Dye MD [address] [place] [address] NEW UROLOGY euromodulation for overactive bladder referred by Dr Aki cronin UrologyComment on above:NEW UROLOGY euromodulation for overactive bladder referred by Dr Aki Sanchesart: 12-12-2023 End: 80-56-5033Aipdwkg encounter guohhbktl30/30/2024 1:30 PM EDT Office Visit Urology [address] [place] [address] Louie Salomon MD [address] [place] [address] follow upUrologyComment on above:follow upStart: 11-02-2023 End: 15-22-0058Vtjchix encounter gbsstxave56/20/2024 11:30 AM EDT Office Visit [facility] [address] [facility] [address] [place] [address] Stanton Velasco MD [address] [facility] [address] [place] [address] ArrivedNOMS CI FMComment on above:ArrivedStart: 10-14-2023 Covid-19 Vaccine ()Covid-19 Vaccine ( season) [facility]et[facility]: 12-47-4334Rqvxnsffm vaccinationInfluenza Vaccine (#1) [facility]: 63-82-5982OGU Vaccine (1 - 1-dose 75+ series)RSV Vaccine (1 - 1-dose 75+ series)[facility]et[facility]: 08-31-2023 End: 93-89-7593Ofitsvd evaluation of patient and bugdvv1308/31/2023 11:00 AM EDT Nurse Visit Urology [address] [place] [id number] Fl[facility] urodynamics [address] [place] [address] UDSUrologyComment on above:UDS Start: 08-15-2023 End: 25-85-6931Wyupxwqm identified in Urine by CultureSelect Medical Specialty Hospital - YoungstownComment on above:Expected: 08/15/2023, Expires: 11/14/2023Start: 08-15-2023 End: 05-35-5330Qmkiiqizem complete panel - [facility]Green [facility] Work Phone: Comment on above:Expected: 08/15/2023, Expires: 11/14/2023Start: 08-02-2023 End: 19-13-9870Reboxgoyf to same day surgery cgtfiu3608/02/2023 8:45 AM EDT - 08/02/2023 10:00 AM EDT Surgery [facility] [address] [place] [address] Louie Salomon MD [address] [place], [place] [phone] (Work) DILATION OF URETHRAL STRICTURE BY PASSAGE OF SOUND OR URETHRAL DILATOR, MALE; INITIALFaDeuel County Memorial HospitalComment on above:DILATION OF URETHRAL STRICTURE BY PASSAGE OF SOUND OR URETHRAL DILATOR, MALE; INITIALStart: 08-02-2023 End: 42-94-5067Nhcfyzgjkluguvgtb inj chemodenervation bladderCYSTOURETHROSCOPY W/INJECTION(S) FOR CHEMODENERVATION OF THE BLADDER 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 stricture Overactive bladder 08/02/2023 8:45 AM EDTFV [facility]ITALStart: 08-02-2023 End: 44-61-3639Lowvz urethral strix dilator male 1stDILATION OF URETHRAL STRICTURE BY PASSAGE OF SOUND OR URETHRAL DILATOR, MALE; INITIAL 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 stricture Overactive bladder 08/02/2023 8:45 AM EDTFV [facility] Start: 79-55-3115Nllaovjvbu hospital visit by ikhgtpnud33/20/2024 8:45 AM EDT Hospital Encounter [facility] [address] [place] [address] Louie Salomon MD [address] [place] [address] 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 stricture [N99.114][facility] SystemComment on above: 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 stricture [N99.114]Start: 06-20-2023 End: 76-59-0350Kumnbqj encounter tivyalaij23/08/2024 10:30 AM EDT Office Visit Urology [address] [place] [address] Louie Salomon MD [address] [place] [address] ramosUrologyComment on above:ref by dr Hammtart: 06-08-2023 End: 41-52-9383Nqdbwro encounter procedureUrologyComment on above:cath removal (does ISC)cath removal (does ISC); possible UC with str. cath; pt. needs 16fr. samples as he only has 14fr athomeStart: 92-66-7476Gzahg-19 Vaccine ( season)Covid-19 Vaccine ( season)[facility]utetart: 02-12-2023 Advance Directive DiscussionAdvance Directive DiscussionRiverview Health Institutetart: 07-48-8500Cpxkwcsiah Health ScreeningBehavioral Health ScreeningSelect Medical Specialty Hospital - [facility] Start: 76-27-3574Unvombtjgr AssessmentDepression AssessmentSelect Medical Specialty Hospital - Youngstown Start: 16-92-1443Ylgttwyme vaccinationINFLUENZA (#1)[facility]et[facility]: 98-16-8761Hxkbctnxv for malignant neoplasm of colonRiverview Health Institutetart: 30-56-4416JRMPO-19 VACCINE (6 - Moderna series)COVID-19 VACCINE (6 - Moderna series)[facility]: 70-05-7582SNHTCKT DIRECTIVE DISCUSSIONADVANCE DIRECTIVE DISCUSSIONRiverview Health Institutetart: 99-97-2896BLPEYUHLNI ASSESSMENT DEPRESSION ASSESSMENTRiverview Health Institutetart: 24-05-7487Hbgzvglpn vaccination INFLUENZA (#1)[facility]: 08-99-9211PHQGQ-19 VACCINE (5 - Booster for Moderna series)COVID-19 VACCINE (5 - Booster for Moderna series)[facility]: 26-41-3056AQYWA-19 VACCINE (4 - Booster for Moderna series)COVID-19 VACCINE (4 - Booster for Moderna series)[facility]: 02-12-2021 ADVANCE DIRECTIVE DISCUSSIONADVANCE DIRECTIVE DISCUSSIONRiverview Health Institutetart: 26-31-1891KOJGZUTLAX ASSESSMENTDEPRESSION ASSESSMENTRiverview Health Institutetart: 91-30-1286ZLIWM-19 VACCINE (4 - Booster for Moderna series)COVID-19 VACCINE (4 - Booster for Moderna series)[facility]: 20-42-5015Tgcto depression screening assessmentDEPRESSION SCREENINGRiverview Health Institutetart: 11-12-2018 PNEUMOCOCCAL: 65+ (2 - PCV)PNEUMOCOCCAL: 65+ (2 - PCV)[facility]: 96-45-6517JXS Vaccine (1 - 1-dose 60+ series)RSV Vaccine (1 - 1-dose 60+ series) [facility]: 43-84-8302EYCBLSPVC (FIT-DNA)COLOGUARD (FIT-DNA)[facility]: 08-67-2617QxgurmidlufBTQLHRTNFQRGtgkuetxg ClinicStart: 1993 COLORECTAL CANCER SCREENINGCOLORECTAL CANCER SCREENINGRiverview Health Institutetart: 00-23-9809RJ COLONOGRAPHYCT COLONOGRAPHYRiverview Health Institutetart: 27-92-0250LRGUN OCCULT BLOODFECAL OCCULT BLOODRiverview Health Institutetart: 30-15-0080Yqzmzyonc for malignant neoplasm of colonRiverview Health Institutetart: 95-68-2197GITSFAFDTNYQE SIGMOIDOSCOPYRiverview Health Institutetart: 05-56-4845IWQLA SCREENLIPID SCREENRiverview Health Institutetart: 11-21-0301Qlhom microalbumin profileDTAP,TDAP,TD (1 - Tdap) [facility]errt: 16-87-5935AQTXVU PCP TEAM CHRONIC DISEASE VISITANNUAL PCP TEAM CHRONIC DISEASE VISITRiverview Health Institutetart: 50-41-0369Rgihudx Screening Anxiety ScreeningRiverview Health Institutetart: 19-97-9593ZY CONTROLLED (<130/80)BP CONTROLLED (<130/80)[facility]t: 10-71-7524Xbzafoskgj Screening Depression ScreeningSouthview Medical Centerrt: 08-61-4079Xcmufkwmt B surface antibody levelLDL CHOLESTEROLRiverview Health Institutetart: 42-33-4242PTBEUCMOB C SCREENINGHEPATITIS C SCREENINGRiverview Health Institutetart: 83-71-0493Zsilhgdmk C screeningHepatitis C ScreeningRiverview Health Institutetart: 80-62-9929MAXIFXCVO AORTIC ANEURYSM SCREENINGABDOMINAL AORTIC ANEURYSM SCREENINGSouthview Medical Centerrt: 96-16-0357Foqumdlmh aortic aneurysm screeningAbdominal Aortic Aneurysm Screening [facility] Centerrt: 90-26-8332Gbhlkcyfx for malignant neoplasm of colonNOMS HealthcareBacteria identified in Urine by CultureMercy Health West Hospital Ctr Work Phone: Bacteria identified in Urine by CultureURINE CULTURE Microbiology Routine Stricture of male urethra, unspecified stricture type Self-catheterizes urinary bladder 06/08/2023 3:38 PM [facility] Work Phone: Bacteria identified in Urine by CultureURINE CULTURE Microbiology Routine Urinary urgency 12/12/2023 1:56 PM [facility] Work Phone: CBC W Auto Differential panel - BloodCBC and differential Lab Routine Atherosclerosis of [place] coronary artery of [place] heart without angina pectoris (CMS/HCC) Ordered: 02/15/2024[facility] Work Phone: Comment on above:Ordered: 02/15/2024T Abdomen and Pelvis [facility] contrastCT chest wo IV contrast Imaging Routine Multiple nodules of lung Ordered: 02/15/2024[facility] HealthcareComment on above:Ordered: 02/15/2024YSTO DIAGNOSTIC CYSTO DIAGNOSTIC Procedures Routine Stricture of male urethra, unspecified stricture type 1 [facility] Work Phone: Comment on above:1 Occurrences starting 04/25/2022 CYSTO DIAGNOSTICCYSTO DIAGNOSTIC Procedures Routine Stricture of urethral meatus in male, unspecified stricture type Ordered: 05/15/2023[facility] Work Phone: Comment on above:Ordered: 05/15/2023ystourethroscopy CYSTO.PANENDO Procedures Routine Urinary retention Self-catheterizes urinary bladder Benign prostatic hyperplasia with weak urinary stream 1 Occurrences starting 10/31/2021[facility] Work Phone: comment on above:1 Occurrences starting 10/31/2021 Patient EducationFirelands Hemorrhoids Discharge Instructions Know your [facility] Work Phone: PERIPHERAL NERVE EVALUATION (PNE)PERIPHERAL NERVE EVALUATION (PNE) Procedures Routine Overactive bladder Incomplete bladder emptyingOrdered: 02/18/2024[facility] Work Phone: comment on above:Ordered: 02/18/2024Prostate specific Ag [Mass/volume] in Serum or PlasmaPSA Lab Routine Prostate cancer screening Ordered: 02/15/2024[facility] HealthcareComment on above:Ordered: 02/15/2024 End: 70-52-4395DO Kidney - bilateral and Urinary bladderUS KIDNEY/BLADDER Radiology Routine Stricture of male urethra, unspecified stricture type Urinary urgency 1 Occurrences starting 06/20/2023 until [facility] Work Phone: Comment on above:1 Occurrences starting 06/20/2023 until 07/20/2024 End: 36-27-8975BA KNEE POST OP 3V AP/LAT/MERCHANT RIGHTXR KNEE POST OP 3V AP/LAT/MERCHANT RIGHT Radiology Routine Chronic knee pain after total replacement of right knee joint 1 Occurrences starting 11/11/2021 until 12/10/2022[facility] Work Phone: Comment on above:1 Occurrences starting 11/11/2021 until 12/10/2022XR KNEE POST OP 3V AP/LAT/MERCHANT RIGHTXR KNEE POST OP 3V AP/LAT/MERCHANT RIGHT Radiology Routine Chronic knee pain after total replacement of right knee joint 11/15/2021 2:22 PM [facility] Work Phone: End: 16-19-8121NR SHOULDER GENERAL 3V OR MORE AP/TRUE AP/OTHER RIGHTXR SHOULDER GENERAL 3V OR MORE AP/TRUE AP/OTHER RIGHT Radiology Routine Nontraumatic complete tear of right rotator cuff 1 Occurrences starting 05/16/[address] [place] [address] Work Phone: Comment on above:1 Occurrences starting 05/16/2021 until 06/15/2022[facility] Immunizations Immunization DateImmunizationNotesCare CalnfejxBudpawrp34-17-7199ETFNVIJ - Respiratory syncytial virus (RSV), vaccine, bivalent, protein subunit RSV prefusion F, diluent reconstituted, 0.5 mL, Myriam FU Work Phone: [facility]ijamii VillageNorth [facility] City HospitalCcrzhjbpvc76-80-4440xnfqvcaod, high dose seasonal, preservative-Lima Velasco MD Work Phone: noNorth Kansas City HospitalOmdjntlocp43-31-0406vfoqnonyo virus vaccine, unspecified formulationStanton Velasco MD Work Phone: [facility] HospitalPiwanwsnss94-90-5939VZZB-RHD-1 (COVID-19) vaccine, mRNA, spike protein, LNP, PF, 50 mcg/0.5 mLStanton Velasco MD Work Phone: [facility]ty HospitalCdqjurmixx19-06-7589Kqdiekdms, High-dose Seasonal, Quadrivalent, Preservative Lima Velasco MD Work Phone: [facility] HospitalDegdfpaelm33-21-7618csrfxfsaf virus vaccine, unspecified formulationaDija Lares PA-C Work Phone: [facility] YoungstownCdnzkf61-07-5768Wbqhnrasn, High-dose Seasonal, Quadrivalent, Preservative Lima Velasco MD Work Phone: [facility]ty HospitalVywouukjdv38-15-7524Hvmogzf Bivalent Booster VaccinationStanton Velasco MD Work Phone: [facility]ty HospitalRswjahkyoa59-33-1640Tlxitipfnhhy Conjugate PCV 20 Stanton Velasco MD Work Phone: [facility] HospitalKdvijipvfm17-58-2161atpzcsq toxoid, reduced diphtheria toxoid, and acellular pertussis vaccine, adsorbedStanton Velasco MD Work Phone: [facility] HospitalBnqpgcdaob35-26-7185pvfvgapfcz skin test; purified protein derivative solution, intradermalStanton Velasco MD Work Phone: NONorth [facility] HospitalHekfyvqaqy51-47-5889rndjvsvvwx skin test; purified protein derivative solution, intradermalStanton Velasco MD Work Phone: [facility]ty HospitalLzueubbfap51-78-8731Xaxvkxd LRUQ-QbU-1Rzaoma Berry MD Work Phone: NONorth [facility] HospitalDqqdxeznck20-18-2687llimmvgzg, high-dose, quadrivalent vaccine (FLUZONE HIGH DOSE QUADRIVALENT)Kev Ferrell MD Work Phone: [facility] YoungstownYwuilv89-82-3852pwqqru vaccine recombinant Kev Ferrlel MD Work Phone: [facility] YoungstownMlaurm20-07-7397kptjvo vaccine, liveDfatimah Velasco MD Work Phone: [phone] [place], [place] [address]Sxdtxqbnuy86-46-9138yidizt vaccine recombinant Kev Ferrell MD Work Phone: [facility] YoungstownWrkzut05-19-1562cjfdwy vaccine, Pranav Velasco MD Work Phone: [facility] HospitalFksenrprdg12-98-3811Yzvwedv GHYD-TjK-2Fxaklg Berry MD Work Phone: [facility] HospitalVawgrbhvog32-34-3480Grxccml UYZG-WtY-5Kmudff Berry MD Work Phone: [phone] [place], [place] [address]Exfxrgqhux63-55-2053ctqviwfaq, high dose seasonal, preservative-freeAlfred Ghassan CAMARGO Work Phone: [facility] YoungstownCyulfs94-45-0073nuzxaxuzf, high-dose, quadrivalent vaccine (FLUZONE HIGH DOSE QUADRIVALENT)Kev Ferrell MD Work Phone: [facility] YoungstownUrxoah78-26-2937uojtfqcat, high dose seasonal, preservative-freeAlfred Ghassan CAMARGO Work Phone: [facility] YoungstownMzbeju52-05-7702qqobhyg toxoid, reduced diphtheria toxoid, and acellular pertussis vaccine, adsorbedStanton Velasco MD Work Phone: [facility] HospitalUvxwlfpzfm88-58-5643fbehfz vaccine recombinant Stanton Velasco MD Work Phone: [facility] HospitalCuronreitd42-17-2208uzzbij vaccine recombinant Stanton Velasco MD Work Phone: [facility] HospitalDckczkenre56-70-6275cbebrqfsl, high dose seasonal, preservative-freeAlfred Ghassan CAMARGO Work Phone: [facility] YoungstownFpglcf71-76-4897clduoelqqtgf polysaccharide vaccine, 23 valentAlvitaliy Ferrell MD Work Phone: [facility] YoungstownOetbcw11-64-8723xbsvmeheldjq conjugate vaccine, 13 valentStanton Velasco MD Work Phone: [facility]ty HospitalLknhurufvq85-08-9758OY(adult) unspecified formulationStanton Velasco MD Work Phone: [facility] HospitalLezttfviee34-07-5196cakrcdhhzlvx vaccine, unspecified formulationStanton Velasco MD Work Phone: [facility] Payers DatePayer CategoryPayerPolicy [id number] 2022Medicare DEVOTED MEDICARE [facility] [id number] 2021-Present [phone] [address] [place] [id number] 2022Medicare (Managed Care)[id number]qsiugc Health InsuranceMEDICO [place] [id number] 1.2.840.280176.1.13.159.2.7.9.857539.51069.24105-25-2966IsdpkwnBNXUXH [facility]ICO [facility] [id number] 2017-Present [phone] [address] [address] [place] [id number] [id number] 1.2.840.355441.1.13.159.2.7.3.989651.50842-05-1662Gxxlzio 1.2.840.936556.1.13.159.2.7.3.872694.10984-64-2814Jbskthf247F3Y1992-19-6666 Medicare1.2.840.775854.1.13.159.2.7.3.489381.18513-17-6375Rksc-kkn [id number] 2.16.840.1.755226.3.579.2.80671-88-9299Lweqdhv6603984 2.16.840.1.303082.3.579.2.68323-49-3487Ztuvycc1254675 2.16840.1.247103.3.579.2.29005-22-4799Jccmkjs8650023 2.16840.1.744919.3.579.2.32024-92-5935Jdldybh8603110 2.840.1.361795.3.579.2.14121-08-9691Kszwqqo7028337 2.840.1.195093.3.579.2.51750-81-1654Zbfrnyq5967799 2.16840.1.500584.3.579.2.05542-98-8930Rwywbyh8883048 2.16840.1.212510.3.57[id number] 2.840.1.640721.3.579.2.00568-01-4675Qfmsuga21985140 2.16840.1.695042.3.57[id number] 2.16840.1.588271.3.579.2.9[id number] 2.16840.1.043920.3.579.2.06804-99-3828Ytjmoyd79083054 2.16840.1.181836.3.579.2.668854-13-0352Gqvblok74113723 2.0.1.065160.3.579.[id number] 2.16.0.1.534520.3.579.2.826651-52-9864Eziagvy3139086 2.16.0.1.171492.3.579.2.660744-09-5655Rkjqcne7831687 2.0.1.701380.3.579.2.972528-17-4617Bocmfiv4078486 2.0.1.622465.3.579.2.052887-38-8296Yeiukwp0072677 2.0.1.582458.3.579.2.1259MedicareSelf [id number] udx2ix76-ot94-5345-4f6v-8939vb66j64cLfykmnl Health CmmgpqjzvXZZJGE8FLyirzqu [id number] 07p107j0-d8s7-3848-nznl-[id number] 2bbp517w-wrr1-9qt6-431a-[id number] 2..1.441628.3.579.2.531 Social History DateTypeDetailFacilityStart: 11-13-2016 End: 38-08-3384Ytsqjju smoking status NHISEx-smokerRiverview Health Institutetart: 11-14-1987 End: 27-18-3092Ccdwgha of tobacco useCurrent smokerRiverview Health Institutetart: 11-14-1987 End: 80-19-9239Eolsnfn of tobacco useCigarette SmokerRiverview Health Institutetart: 11-13-2016 End: 95-59-1599Surrmsxmpy smoked current (pack per day) - Reported1.25[facility] Work Phone: Start: 11-13-2016 End: 83-38-3591Rwjouhb use and exposureSmokeless tobacco non-userRiverview Health Institutetart: 05-02-2021 End: 56-26-1921Acknqcs intakeCurrent drinker of alcohol (finding)[facility]: 70-86-7505Zlqettx SDOH Alcohol Abjqvjgur9Vtjifntux ClinicStart: 71-74-2687Hentfpg SDOH Alcohol Std Edjwst2Vcpxosytr ClinicStart: 01-02-2019 History SDOH Alcohol Comment2 cans of beer per year.[facility]: 16-25-5912Lcy Assigned At BirthNot on fileRiverview Health Institutetart: 03-16-2020 End: 72-63-9315Rcbaooqk to SARS-CoV-2 (event)Not sureSelect Medical Specialty Hospital [facility] Work Phone: Start: 11-06-2018 End: 04-04-5414Gtvbxlr smoking status NHISNever smoked tobacco (finding) [facility] Hospitaltart: 37-69-6415Ley Assigned At BirthMale [facility] Hospitaltart: 12-19-2019 End: 91-27-0712Iyvhsmd Use Disorder Identification Test - Consumption [AUDIT-C] [facility] Work Phone: How often to you have a drink containing alcohol? Monthly or lessSelect Medical Specialty Hospital - [place] Work Phone: How many standard drinks containing alcohol do you have on a typical day?[address] [facility] Work Phone: How often do you have 6 or more drinks on 1 occasion? NeverSelect Medical Specialty Hospital - [facility] Work Phone: Start: 03-23-2020 End: 43-83-3362TCI1 Ifqia1HmfancheyRiverview Health Institutetart: 68-17-3844Qowthr identity Identifies as male gender (finding)[facility]: 05-23-2023 End: 34-61-3433Mfqrdubvp beverage intakeLifetime non-drinker (finding)[facility] HealthcareWithin the last year, have you been afraid of your partner or ex-partner?NoNOMS HealthcareAre you now , , , , never or living with a partner?MarriedNOMS HealthcareDo you feel stress - tense, restless, nervous, or anxious, or unable to sleep at night because your mind is troubled all the time - these days [OSQ]Not at allNOMS Healthcare(I/We) worried whether (my/our) food would run out before (I/we) got money to buy more. Never trueNOMS HealthcareSexual OrientationCleveland Clinic [facility] Hospital Start: 97-81-2720HumLynk (finding)[facility] Medical Equipment Procedure CodeEquipment CodeEquipment Original TextEquipment IdentifierDates Bma-St-W-Kind Implant - [id number]: 23-51-1410Jkjbapd on above: Description: 11mm in line coibsGmp-Td-I-Kind Implant - [id number] Start: 14-52-2656Ldumfxu on above:Description: hinge plateProlong Rev Shoulder Prosthesis Cup 36mm +3mm Retentive [id number]_igpPbqpg: 68-23-4747Ebyk Hum 83mm 14mm Cmprh Por - [id number]_esfEqstp: 28-55-9415Lwo Shoulder Prosthesis Body 40mm +5mm Thick +0mm Taper [id number]_eupNcuoy: 05-02-2021 Insert Triathlon 7 10mm Tibial Bearing Condylar Stabilize Sterile Knee - [id number]_bhnQbdsf: 73-77-9355Jwprocgyk Triathlon Tritanium 7 Tibial Knee - [id number]_ajaDrvzu: 03-26-8515Yfttjdjoy Tritanium 38mm Metal 11mm Patellar Asymmetric Knee - [id number]_idiEqwea: 16-78-0691Grqzrznpc Triathlon 7 Pa Femoral Cruciate Retain Bead Knee Right - [id number] Start: 30-04-2569Pqywbmlhi Comprehensive Versa-Dial 36mm Standard Glenoid Glenosphere - [id number]_zutIamzv: 81-10-5100Aulv Interstim 1.27mm 3mm Space Straight 33cm Neurostimulator Inline - [id number]_rrdXbuqv: 78-46-4369Jgyg Interstim 1.27mm 3mm Space Straight 33cm Neurostimulator Inline - [id number]_cqpWjaai: 03-78-6617Ythtb Canopy 9mm Bone Shelf Inline Spine - [id number]_qqvFagcw: 00-85-6463Hcuanbmai Comprehensive 25mm Mini Glenoid Taper Adapter Reverse Shoulder - [id number]_mwqIdulx: 05-02-2021 Screw 2.2mm 6mm Bone Self Drilling - [id number]_dzyPmwdo: 84-24-9059Rnzpj 2.2mm Relieve Slfdrl 5mm - [id number]: 70-46-9477Kvfdc Comprehensive 4.75mm 3.5mm Titanium 15mm Bone Fix Angle Lock - [id number]: 56-49-7457Kuvuz Comprehensive 3.5mm 30mm Bone Central Hexagon Wood Heel Flap Trimmer 6.5mm Shoulder - [id number]: 91-91-5100Yzqxl Comprehensive 4.75mm 3.5mm Hexagon 20mm Bone Variable Angle Nonlock - [id number]: 35-93-7804Usgfv Comprehensive 3.5mm Hexagon 20mm Bone Fix Angle Lock Reverse 4.75mm - [id number]: 37-12-7680Fslhn Comprehensive 3.5mm Hexagon 30mm Bone Fix Angle Lock Reverse 4.75mm - [id number]: 05-02-2021 Functional Status EoolZwrayqgiglUajoejFnrytbem17-85-1295Zahsanu Health Questionnaire 2 item (PHQ- 2) [Reported][facility]ty HospitalIteiagmtoa87-94-4238Wvvojbnzjs StatusN/AFCleveland [facility]01-24-2025Patient Health Questionnaire 2 item (PHQ-2) [Reported][facility]ty HospitalWrgyinoqqi21-80-7054Fczbqqy Health Questionnaire 2 item (PHQ-2) [Reported][facility]ty HospitalLpevypzkmm93-26-9668Jlc you deaf, or do you have serious difficulty hearingNo 05/04/2021 3:26 PM EDT Corry Schaeffer RN [facility] [id number] you blind, or do you have serious difficulty seeing, even when wearing glassesNo 05/04/2021 3:26 PM LEAHT Corry Schaeffer RN [facility] 03-12-8931Dw you have serious difficulty walking or climbing stairsYes 05/04/2021 3:26 PM EDT Coryr Schaeffer RN [facility] HospitalCalvow02-17-7124Jmhdhap of a physical, mental, or emotional condition, do you have difficulty doing errands alone such as visiting a physician's office or shoppingYes 05/04/2021 3:26 PM EDT Corry Schaeffer RN [facility]09-19-2019Do you have difficulty dressing or bathingNo 10/31/2018 3:35 PM EDT Dora Moreira RN No [facility] Mental Status ZldbNocqdnokofGxaqghCknsycyd68-05-1024Megzpfc of a physical, mental, or emotional condition, do you have serious difficulty concentrating, remembering, or making decisionsNo 05/04/2021 3:26 PM EDT Corry Schaeffer RN [facility] Clinical Notes 12-21-2020 to 12-05-2024 Note Date & NoyvTzacBnzsurnd65-92-4915 Radiology Diagnostic study [facility] [place] [address] [place] [address] CT Scan Report Signed Patient: Fahad Sotelo MR#: [id number] : 1950 Acct:[id number] Age/Sex: 74 / M ADM Date: 5 Loc: CT Room: Type: [facility] Attending Dr: Nydia Barfield DO Copies to: Nydia Barfield DO~ Ordering Provider: Nydia Barfield DO Date of Service: 12/05/24 CT/CT abdomen pelvis w con: K59.00 - Constipation, unspecified CT ABDOMEN AND PELVIS WITH INTRAVENOUS CONTRAST: CLINICAL HISTORY: Constipation COMPARISON: None TECHNIQUE: Spiral images were obtained through the abdomen and pelvis followingthe administration of intravenous contrast. This CT exam was performed using one or more following dose reduction techniques: Automated exposure control, adjustment of the mA and/or kV according to patient size, or use of iterative reconstruction technique. FINDINGS: Lung Bases: [Triple vessel coronary disease. Subpleural nodularity up to 8 x 2 mm size, favor areasof scarring.] Organs:Fatty liver. Cholelithiasis. Spleen, adrenals, kidneys, and pancreas are unremarkable.[ GI: Mild to moderate colonic stool burden. No bowel obstruction. Appendix unremarkable.[ Pelvis:[Bladder wall thickening possibly to under distention, correlate with urinalysis findings. Prostate unremarkable.] Peritoneum/Retroperitoneum:No free air or free fluid. Hnca-da-oulpnrmi plaque involving the nonaneurysmal aorta and mesenteric vessels.[ Abd wall/Bones:Postsurgical changes status post L4-5 discectomy and posterior fusion and laminectomy. Otherwise degenerative changes elsewhere.[ CT/CT abdomen pelvis w con IMPRESSION: Negative acute inflammatory process or bowel obstruction. Bladder wall thickening possibly to under distention versus cystitis. Please correlate with urinalysis findings. Impression dictated by: Matheus Chahal M.D. 12/05/2024 5:57 PM Dictation Location: [place] [address] Transcribed By: [facility] 12/05/241756 Dictated By: Matheus Chahal MD 12/05/241753 Signed By: 12/05/241756 [facility] Work Phone: 1(828) 431-914210-14-2025 NoteCardiovascular Medicine [facility] SUBJECTIVE Chief Complaint Patient presents with Follow-up Patient is here today for a 4 week follow up. Patient recently had a stress test, labs Coronary Artery Disease Hypertension Hyperlipidemia chrronic ischemic heart disease Raynauds syndrome Fahad Sotelo is a 74 y.o. male here for follow-up on his chest pain. PMHx: CAD, s/p single vessel bypass graft surgery, HTN Coronary Artery Disease Risk factors include hyperlipidemia. Hypertension Hyperlipidemia 10/22/2024 He notes he had a fall [...] orthopnea, PND, LE edema, dizziness/LH, palpitations, syncope. 11/25/2024 Today he states he is feeling well from a cardiac standpoint. Left sided chest pain has resolved. Denies c/o CP, dyspnea, orthopnea, PND, LE edema, dizziness/LH, palpitations, syncope. He is pending hernia surgery. He is also having trouble with bowel blockage. He is pending a CT scan. Problem List[1] Medical History[2] Family History[3] Social History[4] Allergies[5] OBJECTIVE Visit Vitals BP 98/58 (BP Location: Left arm, Patient Position: Sitting) Pulse 69 Ht 1.778 m (5' 10 ) Wt 98 kg (216 lb) SpO2 94% BMI 30.99 kg/m??? Smoking Status Former BSA 2.2 m??? Medications: Current Medications[6] Physical Exam Constitutional: [...] distal left anterior descending coronary artery. 3. 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 [facility] 1 month. 5. Follow [...] systolic function Mild LA dilatation Trivial MR Stress test 11/10/2024 -Negative for ischemia -Fixed inferior perfusion defect that may be artifact -Normal global LV systolic function -No TID -No ischemic EKG changes ASSESSMENT/PLAN: Diagnoses and all orders for this visit: Coronary artery disease involving [place] coronary artery of [place] heart without angina pectoris (more content not included)...[facility]10-07-2025 NoteHello, I recently saw Mr. Sotelo for c/o left sided chest pain. Occurred after he had a fall, constant, did not seem to worsen with exertion. He had suffered a right clavicle fracture from the fall. I was suspecting musculoskeletal and recommended F/U in 1 month. However, I received surgical clearance for his upcoming hernia repair surgery therefore I proceeded to order a stress test. Stress showed fixed defect inferiorly (may be artifact). No EKG changes. He was noted to have mild to mod ISR to the RCA per 2012 cath. Just wanted to run him by you, do you think we need to proceed with a cath or I can clear him at moderate risk? Thanks! [facility]10-03-2025 Evaluation note* Diagnosis Onset Date Resolution Status Admit Date Change in bowel function acuteOctober 2024 10:13amConstipationacuteOctober 2024 10:13am [facility] Work Phone: 1(215) 903-778309-25-2025 History of Present illness Narrative* Sukumar Mack NP - 11/06/2024 10:30 AM EDT Images from the original note were not included. Subjective Patient ID: Fahad Sotelo is a 74 y.o. male who presents for No chief complaint on file.. Fahad presents today for an ER follow up for constipation. [facility] did an abdomin x- ray that showed a small blockage. He does have an appointment with Gastro in [place], but can't see them until Nov. Over the past 2 weeks, how often have you been bothered by any of the following problems? Little interest or pleasure in doing things: Not at all Feeling down, depressed, or hopeless: Not at all Patient Health Questionnaire-2 Score: 0 Current Outpatient Medications on File Prior to [...] (thin layer on neck, chest) TWICEDAILY NEEDED No current facility-administered medications on file [...] Negative. HENT: Negative. Eyes: Negative. Respiratory: Negative. Gastrointestinal: Positive for abdominal distention, abdominal pain, constipation and diarrhea. Genitourinary: Negative. Musculoskeletal: Negative. Skin: Negative. Neurological: Negative. Psychiatric/Behavioral: Negative. Hematological: Negative. Endocrine: Negative. Allergic/Immunologic: Negative. Objective Physical Exam Vitals reviewed. Constitutional: Appearance: Normal appearance. HENT: Head: Normocephalic and atraumatic. Right Ear: Tympanic membrane normal. Left Ear: Tympanic membrane normal. Nose: Nose normal. Mouth/Throat: Mouth: Mucous membranes are moist. Eyes: Extraocular Movements: Extraocular movements intact. Pupils: Pupils are equal, round, and reactive to light. Cardiovascular: Rate and Rhythm: Normal rate and regular rhythm. Heart sounds: Normal heart sounds. Pulmonary: Effort: Pulmonary effort is normal. Breath sounds: Normal breath sounds. Abdominal: General: There is distension. Palpations: Abdomen is soft. Tenderness: There is abdominal tenderness. Musculoskeletal: General: Normal range of motion. Cervical back: Normal range of motion and neck supple. Skin: General: Skin is warm and dry. Neurological: General: No focal deficit present. Mental Status: He is alert and oriented to person, place, and time. Psychiatric: Mood and Affect: Mood normal. Behavior: Behavior normal. Thought Content: Thought content normal. Judgment: Judgment normal. Assessment/Plan 1. Chronic idiopathic constipation (Primary) He presents today following an ER visit for constipation. He reports today that he has not been taking his medications as prescribed. He reports that his appointment with GI is scheduled for Decemberand he did not feel he could wait. He is requesting a different GI doc as he did not like the one he previously saw. His appointment time and date is changed to Nov 14, 2024. He is advised to continueall current medications as prescribed and await his appointment with GI for further recommendations. No follow-ups on file. documented in this [facility]09-25-2025 Instructions* Patient Instructions* Sukumar Mack NP - 11/06/2024 10:30 AM EDT Continue all current medications and follow up with GI as scheduled. documented in this encounterRanken Jordan Pediatric Specialty HospitalCodafipwan10-53-4084 NoteHNO ID: [id number] Author: KEV FERRELL MD Service: ? Author [...] right clavicle with routine healing, subsequent encounter (S43.122K) X-rays demonstrate slow but routine healing of [...] Kev Ferrell MD October 28, 2024 11:52 [facility]09-16-2025 History of Present illness Narrative* Kev Ferrell MD - 10/28/2024 11:42 AM [...] 28, 2024 11:52 AM documented in this encounterSelect [facility]09-16-2025 NoteHNO ID: [id number] Author: JUAN ABAD RT(R) Service: ? Author Type: Technologist Type: [...] PATIENT PRESENTS WITH AN IMPLANTABLE OR ATTACHED NEEDLE GRINDER: No RADIOLOGY DEPARTMENT: General X-ray: Exam(s) Completed: Upper Extremity X-Ray(s): Clavicle, right PERIPHERAL IV DATA: Not applicable SIGNED BY: CANDY Lombardo) October 28, 2024 11:14 [facility]09-16-2025 History of Present illness Narrative* Juan Abad RT(Satinder) - 10/28/2024 11:14 AM EDT Radiology Service [...] PATIENT PRESENTS WITH AN IMPLANTABLE OR ATTACHED NEEDLE GRINDER: No RADIOLOGY DEPARTMENT: General X-ray: Exam(s) Completed: Upper Extremity X- Ray(s): Clavicle, right PERIPHERAL IV DATA: Not applicable SIGNED BY: CANDY Lombardo) October 28, 2024 11:14 AM documented in this encounterSelect Medical [facility]09-12-2025 NoteHNO ID: [id number] Author: CHRIS CLEMENTS MD Service: ? Author Type: Physician Type: Progress Notes Filed: 10/24/2024 13:29 Note Text: returns with lots of painin right groin and entire anterior thigh exam w valsalva reproduces hernia and pain rec right inguinal hernia repair with mesh brangeodwpid [facility]09-12-2025 History of Present illness Narrative* Chris Clements MD - 10/24/2024 1:26 PM EDT returns with lots of painin right groin and entire anterior thigh exam w valsalva reproduces hernia and pain rec right inguinal hernia repair with mesh brangeodwpid huawtpsa documented in this encounterSelect Medical [facility]09-12-2025 History of Present illness Narrative* Stanton Velasco MD - 10/24/2024 9:45 AM [...] XRAy was negative. 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 Follow up in about 4 months (around 02/23/2025) for Routine F/U. documented in this encounterRanken Jordan Pediatric Specialty HospitalQioiextzcv80-72-5088 NoteCardiovascular Medicine [facility] SUBJECTIVE Chief Complaint Patient presents with Coronary Artery Disease Follow-up Patient is here today for an early appointment for complaints of chest pain Chest Pain Constant Left sided chest pain. Denies any other symptoms. Patient had x-ray on Sunday Hypertension Hyperlipidemia Chronic ischemic heart disease Fall 1 month ago fell on right shoulder and broke clavicle Fahad A McGirt is a 74 y.o. male here for [...] distal left anterior descending coronary artery. 3. 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 [facility] 1 month. 5. Follow [...] lead unit performed Coronary artery disease involving [place] coronary artery of [place] heart without angina pectoris Hx of CABG Benign hypertensive heart disease without congestive heart failure Mixed hyperlipidemia #Coronary atherosclerosis; history of coronary artery bypass graft surgery-saphenous vein graft to the LAD (2004) given need for emergency CABG due to complicated PCI #Chest pain -Chest pain is atypical for cardiac in nature. Suspect it is related to his recent fall. 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 documented in this encounterRanken Jordan Pediatric Specialty HospitalBttocduler51-54-4939 NoteHNO ID: [id number] Author: KEV FERRELL MD Service: ? Author [...] Duration Units: Weeks Frequency: Intermittent Intervention/Comfort measure: Reposition;Relaxation;Positioning;Cold The patient's past medical history, surgical history, [...] going to follow-up in 1 month. Kev Ferrell, [facility]08-08-2025 NoteHNO ID: [id number] Author: KIRSTIN ECHEVERRIA RT(R) Service: ? Author [...] PATIENT PRESENTS WITH AN IMPLANTABLE OR ATTACHED NEEDLE GRINDER: No RADIOLOGY DEPARTMENT: General X-ray: Exam(s) Completed: Upper Extremity X-Ray(s): Clavicle, right PERIPHERAL IV DATA: Not applicable SIGNED BY: RT Gerber(R) September 19, 2024 9:48 [facility]07-18-2025 NoteHNO ID: [id number] Author: KEV FERRELL MD Service: ? Author [...] Duration Units: Weeks Frequency: Continuous Intervention/Comfort measure: Reposition;Relaxation;Positioning;Cold HISTORY: Fahad Sotelo has complains of 2-week [...] Follow-up 2 to 3 weeks Kev Ferrell [facility]07-18-2025 History of Present illness Narrative* Kev Ferrell MD - 08/29/2024 8:32 AM EDT This document has been created [...] hand dominant male who presents today for newevaluation of right distal clavicle fracture. HISTORY OF PRESENT ILLNESS: PAIN EVALUATION 08/29/2024 0818 Pain Location: Shoulder-Right Description: Aching;Sore Duration Amount of Time: 2 Duration Units: Weeks Frequency: Continuous Intervention/Comfort measure: Reposition;Relaxation;Positioning;Cold HISTORY: Fahad Sotelo has complains of 2-week history of right shoulder pain after falling at a grocery store and injuring his right shoulder. He has significant orthopedic history to his right shoulder. He underwent right reverse total shoulder arthroplasty on 05/02/2021. He states he has had someimprovement. No neurologic complaints No other musculoskeletal complaints [...] and that lead to a CABG x1 [id number] Former smoker quit 1997 Hyperlipidemia Hypertension Intermittent [...] weeks Kev Ferrell MD documented in this encounterSelect Medical [facility]07-18-2025 NoteHNO ID: [id number] Author: RIGO JANG RT(Satinder) Service: ? Author Type: Technologist Type: [...] PATIENT PRESENTS WITH AN IMPLANTABLE OR ATTACHED NEEDLE GRINDER: No RADIOLOGY DEPARTMENT: General X-ray: Exam(s) Completed: Upper Extremity X-Ray(s): Shoulder, AP / TRUE AP / AXILLARY / SUPRA OUTLET right PERIPHERAL IV DATA: Not applicable SIGNED BY: RT GIOVANNI(R) August 29, 2024 8:16 [facility]07-18-2025 History of Present illness Narrative* Rigo Jang RT(R) - 08/29/2024 8:16 AM EDT Radiology Service Progress Note PATIENT [...] PATIENT PRESENTS WITH AN IMPLANTABLE OR ATTACHED NEEDLE GRINDER: No RADIOLOGY DEPARTMENT: General X-ray: Exam(s) Completed: Upper Extremity X- Ray(s): Shoulder, AP / TRUE AP / AXILLARY / SUPRA OUTLET right PERIPHERAL IV DATA: Not applicable SIGNED BY: RT GIOVANNI(R) August 29, 2024 8:16 AM documented in this encounterSelect Medical [facility]ty [facility]07-15-2025 Instructions* Patient Instructions* Kristal Hare APRN.LIFESTYLE CONSULTANT - 08/26/2024 1:28 PM EDT - Obstructive defecation: 1. Stay hydrated by drinking at least 8 glasses of water per day. This will help to keep your bowelhabits more regular. 2. Continue taking your bowel regimen as prescribed follow up with Dr. Solorio regarding plan for medications halfway. 3. Pelvic floor physical therapy. The goal of this therapy is to retrain the pelvic floor muscles to more appropriately relax and therefore improve evacuation of stool. Physical therapy is the most effective way to get the pelvic floor muscles moving and coordinating correctly. Pelvic floor PT was o rdered today, reviewed scheduling process with patient and [...] sent to this physician. documented in this encounterSelect Medical [facility]07-15-2025 NoteHNO ID: [id number] Author: KRISTAL HARE APRN.CNP Service: ? Author Type: Nurse Practitioner Type: [...] 03/29/2017 Dr. Fady Dye - [facility] LEFT HEART CATH,PERCUTANEOUS 05/11/2003 Cardiac [...] done by Nava Back LPN, [facility] Current Outpatient Medications Medication Sig [...] Comments Other Reaction(s): Con (more content not included)...[facility] 08-26-2024 History of Present illness Narrative* Kristal Hare APRN.LIFESTYLE CONSULTANT - 08/26/2024 12:51 PM EDT PELVIC FLOOR COLON & RECTAL SURGERY Reason [...] due to frequency of bowel movements. At thispoint he states having typically 1-2 bowel movements [...] states a plate was placed at that timeand is scheduled follow-up with his orthopedic provider [...] and that lead to a CABG x1 [id number] Former smoker quit 1997 Hyperlipidemia Hypertension Intermittent self-catheterization of bladder Urge incontinence of urine PAST SURGICAL HISTORY Procedure Laterality Date ARTHRP KNE CONDYLE&PLATU MEDIAL&LAT COMPARTMENTS 10/30/2018 right CABG (1) VEIN GRAFT & ARTERIAL GRAFT 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 Dye CYSTO.PANENDO 05/31/2022 CYSTO.PANENDO N/A 06/04/2023 CYSTOSCOPY 03/29/2017 Dr. Fady Dye - [facility] LEFT HEART CATH,PERCUTANEOUS 05/11/2003 Cardiac [...] done by Nava Back LPN, [facility] Current Outpatient Medications Medication Sig [...] TABLETSBY MOUTH 6 (SIX) hours after procedure 6 [...] discussed with the Patient or Patient's Authorized Stage Rigger. Asapplicable, any other physician, advance practice provider, medical student, or other health professional student that will be observing or involved in the sensitive examination for educational or training purposes was discussed with the Patient or Authorized Stage Rigger. The Patient or Authorized Stage Rigger has agreed to proceed with the sensitive [...] exam findings, anorectal manometry and EMG results, thepatient may have obstructive defecation due to non-relaxation of the puborectalis/pelvic floor dyssynergia which could contribute to their symptoms. Recommendations for this include: - Obstructive defecation: 1. Stay hydrated by drinking at least 8 glasses of water per day. This will help to keep your bowelhabits more regular. 2. Continue taking your bowel regimen as prescribed follow up with Dr. 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 3. Pelvic floor physical therapy. The goal of this therapy is to retrain the pelvic floor muscles to more appropriately relax and therefore improve evacuation of stool. Physical therapy is the most effective way to get the pelvic floor muscles moving and coordinating correctly. Pelvic floor PT was o rdered today, reviewed scheduling process with patient and [...] which included preparing to see the patient, kiow-wq-jugi patient care, completing clinical documentation, obtaining and/or reviewing separately obtained history, performing a medically appropriate examination, counseling and educating the pat ient/family/caregiver, ordering medications, tests, or procedures, and communicating results to thepatient/family/caregiver. documented in this encounterSelect [facility]ty [facility]04-09-2025 NoteBELLWADSWORTH[facility] Note Chief Complaint: Patient [...] distal left anterior descending coronary artery. 3. Klkj-jd-cqzqrrre diffuse in-stent restenosis of right coronary artery [...] 4. Follow up [facility] in 1 month. 5. Follow up with Dr. Centeno as scheduled. Stress test 06/28/2023: Normal nuclear medicine myocardial perfusion scan Assessment: Coronar (more content not included)...[facility] 04-16-2024 History of Present illness Narrative* Sukumar Mack, RETREAD TECHNICIAN - 04/16/2024 2:30 PM EST Images from the original note [...] (thin layer on neck, chest) TWICEDAILY NEEDED No current facility-administered medications on file [...] History: Diagnosis Date CAD (coronary artery disease) ([facility] Closed torus fracture of upper end of left fibula 08/21/2022 Complete rotator cuff tear or rupture of right shoulder, not specified as traumatic 05/04/2021 HLD (hyperlipidemia) ([facility]) HTN (hypertension) ([facility]) Myocardial infarct ([facility]) Rotator cuff tear left Past Surgical History: [...] to once a day when bowel movements becomemore regular. Continue colace daily, Follow up with GI in June at new patient appt. 2. Chronic obstructive pulmonary disease, unspecified (CMS/HCC) Stable. No follow-ups on file. documented in this [facility]03-05-2025 Instructions* Patient Instructions* Sukumar Mack NP - 04/16/2024 2:30 PM EST Lactulose order sent to the pharmacy today. documented in this encounterRanken Jordan Pediatric Specialty HospitalRdklcnhonu82-45-7611 NoteHNO ID: [id number] Author: CHRIS CLEMENTS MD Service: ? Author [...] to surgical repair and will return for discussionVeterans Health Administration02-28-2025 History of Present illness Narrative* Chris Clements MD - 04/11/2024 3:49 PM EST Established patient returns with intermittent right groin [...] will return for discussion documented in this encounterSelect Medical [facility]02-20-2025 History of Present illness Narrative* NICKIE Porter - 04/03/2024 11:30 AM EST Images from the original note were not included. Subjective Patient ID: Fahad Sotelo is a 73 y.o. male who presents for [facility] ER follow up. Flowsheet Row Patient Outreach from 04/02/2024 in [facility] with Emelyn Hall RN Hospital Information ED, Hospital or Correction Facility Discharge? ED Patient has been contacted within 1 week of being seen in the ED Yes Diagnosis constipation with no evidence of obstruction Discharge Date 03/31/24 Discharged To: Home Setting Discharge Hospital [facility] Admission Date 03/31/24 Medications Discharge medications reviewed [...] layer on neck, chest) TWICEDAILY NEEDED [DISCONTINUED] GaviLyte-G 236 g solution Take [...] History: Diagnosis Date CAD (coronary artery disease) ([facility]) Closed torus fracture of upper end of left fibula 08/21/2022 Complete rotator cuff tear or rupture of right shoulder, not specified as traumatic 05/04/2021 HLD (hyperlipidemia) ([facility]) HTN (hypertension) ([facility]) Myocardial infarct ([facility]) Rotator cuff tear left Past Surgical History: [...] use enemas or suppositories at home. He isonly getting liquid out at this time, no substantial BM. Will have patient hold Trulance for now and take the max dosage of Linzess, samples provided. Goal would be to have patient on Linzess 145 mcgfor maintenance dosage if the medication is effective. He is not sure if [facility] will be able [facility], but will check. Encouraged pt to sip water throughout the day, aim for at leasttwo bottles of water a day. Do not drink large amounts right before bed. Advised if he does not increase his hydration, it will continue to aggravate the constipation. Advised pt that if he has an increase in pain, is unable to have BM over the next 1-2 days, or he experiences vomiting, he is to goto the ER for re-evaluation and further treatment, possible admission. Patient voiced understanding. Follow up in about 5 months (around 08/31/2024) for Hypertension, or sooner if needed. documented in this encounterRanken Jordan Pediatric Specialty HospitalWthdszblvb56-05-2004 Telephone encounter Note* Telephone Encounter - Luzma Scott - 03/17/2024 9:17 AM EST Orders faxed to [facility] [phone] [facility]02-03-2025 Miscellaneous Notes* Telephone Encounter - Luzma Scott - 03/17/2024 9:17 AM EST Orders faxed to [facility] [phone] documented in this encounterSelect Medical [facility] [place]-2025 History of Present illness Narrative* Stanton Velasco MD - 03/07/2024 9:15 AM EST Images from the original note were [...] and sinus pressure. Onset of symptoms was 3weeks ago. Symptoms have been unchanged since that [...] (thin layer on neck, chest) TWICEDAILY NEEDED No current facility-administered medications on file [...] History: Diagnosis Date CAD (coronary artery disease) ([facility]) Closed torus fracture of upper end of left fibula 08/21/2022 Complete rotator cuff tear or rupture of right shoulder, not specified as traumatic 05/04/2021 HLD (hyperlipidemia) ([facility]) HTN (hypertension) ([facility]) Myocardial infarct ([facility]) Rotator cuff tear left Past Surgical History: [...] compared to the equimolar-standardized total PSA (Laurel Hamilton). Comparison of serial PSA results should be [...] LDL-C. Talha HERNANDEZ et al. MANPREET. 2013;310(19): 7315-1978 (http://education.Mobilitie.com/faq/FGW526) CHOL/HDLC RATIO 02/15/2024 3.0 <5.0 (calc) Final [...] 2024) for Routine F/U. documented in this encounterRanken Jordan Pediatric Specialty HospitalCrsnmbvjjq06-11-7266 Telephone encounter Note* Telephone Encounter - Rachel Palencia MA - 02/28/2024 3:07 PM EST Form faxed to: [phone]. Transmitted OK - Confirmation Received. We will hold onto the paperwork in our hold for two (2) week bin. Afterwards, it will be sent to [facility] for scanning into the pt's chart. [facility]01-16-2025 Miscellaneous Notes* Telephone Encounter - Rachel Palencia MA - 02/28/2024 3:07 PM EST Form faxed to: [phone]. Transmitted OK - Confirmation Received. We will hold onto the paperwork in our hold for two (2) week bin. Afterwards, it will be sent to [facility] for scanning into the pt's chart. * Telephone Encounter - Rachel Palencia MA - 02/25/2024 4:35 PM EST We received a fax from [facility]. I have the form, from [place], in Dr. Dye's work bin. We will need Dr. Dye's signature and date signed on the form. When I spoke with the Pt he said he will be getting his cath supplies from [facility]. [employer] [place] is there sister store owned by [facility]. documented in this encounterSelect Medical Specialty Hospital [facility] [place]01-14-2025 NoteHNO ID: [id number] Author: CHRIS CLEMENTS MD Service: ? Author Type: Physician Type: Progress Notes Filed: 02/26/2024 15:16 Note Text: Patient is referred by Stanton Velasco II, MD with recent right groin pain. A copy of dictation with recommendations to above by [employer] electronic medical record US mail. No prior groin or abdominal surgeries [facility] records verify confirmed update including past [...] to have discomfort and no hernia diagnosed clinicallyV[facility]ans Health Administration 02-25-2024 Telephone encounter Note* Telephone Encounter - Rachel Palencia MA - 02/25/2024 4:35 PM EST We received a fax from [place] [facility], [facility]. I have the form, from [place], in Dr. Dye's work bin. We will need Dr. Dye's signature and date signed on the form. When I spoke with the Pt he said he will be getting his cath supplies from [facility]. [place] is there sister store owned by [facility]. [facility]01-10-2025 Telephone encounter Note* Telephone Encounter - Luzma Scott - 02/22/2024 10:41 AM EST Faxed orders for catheter supplies to [phone] [facility]01-10-2025 Miscellaneous Notes* Telephone Encounter - Luzma Scott - 02/22/2024 10:41 AM EST Faxed orders for catheter supplies to [phone] documented in this encounterSelect Medical [facility]ty [facility] [place]01-06-2025 Telephone encounter Note * Telephone Encounter - Aislinn Montalvo RN - 02/18/2024 2:29 PM EST VV note addendum made from today, catheters ordered and faxed electronically to [facility] [employer]. Aislinn Montalvo RN BSN [facility]01-06-2025 Miscellaneous Notes* Telephone Encounter - Aislinn Montalvo RN - 02/18/2024 2:29 PM EST VV note addendum made from today, catheters ordered and faxed electronically to [facility] [employer]. Aislinn Montalvo RN BSN * Telephone Encounter - Luzma Scott - 02/18/2024 2:03 PM EST Pt needs a new script for medical supplies, doesn't have a company in mind because he recently got new insurance 16fr coude/pre lubricated 5xs a day documented in this encounterSelect Medical Specialty Hospital [facility] [place]01-06-2025 Note* Addendum Note - Aislinn Montalvo RN - 02/18/2024 2:28 PM ESTAddended by: AISLINN MONTALVO on: 02/18/2024 02:28 PM Modules accepted: Orders [facility]01-06-2025 Miscellaneous Notes* Addendum Note - Aislinn Montalvo RN - 02/18/2024 2:28 PM ESTAddended by: AISLINN MONTALVO on: 02/18/2024 02:28 PM Modules accepted: Orders documented in this encounterSelect Medical [facility]ty [facility] [place]01-06-2025 Telephone encounter Note * Telephone Encounter - Luzma Scott - 02/18/2024 2:03 PM EST Pt needs a new script for medical supplies, doesn't have a company in mind because he recently got new insurance 16fr coude/pre lubricated 5xs a day [facility]01-06-2025 NoteHNO ID: [id number] Author: NORI BE RN Service: ? Author [...] visit. Either the patient or their legal shared services representative has been informed of the risks [...] 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 Dye CYSTO.PANENDO 05/31/2022 CYSTO.PANENDO N/A 06/04/2023 CYSTOSCOPY 03/29/2017 Dr. Fady Dye - MIKO LEE [facility] LEFT HEART CATH,PERCUTANEOUS 05/11/2003 Cardiac [...] done by Nava Back LPN, [facility] Current Outpatient Medications on File [...] Surge eval - PERIPHERAL NERVE EVALUATION (PNE) [facility] 3. Incomplete bladder emptying - ICD9: 788.21, [...] with more than 50% of the total rjnk-rb-phja time of the visit in counseling / coordination of care. Fady Dye MD [facility] [place] [facility] [place] fax: [facility] History of Present illness Narrative* aFdy Dye MD - 02/18/2024 1:45 PM EST [facility] Virtual Visit Patient Visit: This Team Access Model visit is a virtual encounter. It required patient- provider interaction for the medical decision making as documented below. I have communicated my name and active licensure. The patient's identity and physical location wereverified at the time of this visit. Either the patient or their legal shared services representative has been informed of the risks and benefits of -- and alternatives to -- treatment through a remote evaluation andconsents to proceed with the evaluation remotely. 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 Dye CYSTO.PANENDO 05/31/2022 CYSTO.PANENDO N/A 06/04/2023 CYSTOSCOPY 03/29/2017 Dr. Fady Dye - [facility] LEFT HEART CATH,PERCUTANEOUS 05/11/2003 Cardiac [...] done by Nava Back LPN, [facility] Current Outpatient Medications on File [...] Surge eval - PERIPHERAL NERVE EVALUATION (PNE) [facility] 3. Incomplete bladder emptying - ICD9: 788.21, ICD10: R33.9 above - PERIPHERAL NERVE EVALUATION (PNE) -CATHETER ORDER FOR HOME ISC 5x/day with 16 fr coude Fady Dye MD I spent 15 minutes in the visit, with more than 50% of the total ohse-gx-vfjb time of the visit in counseling / coordination of care. Fady Dye MD [facility] [place] fax: documented in this encounterSelect Medical Specialty [facility] [place]01-06-2025 Telephone encounter Note * Telephone Encounter - Sourav Valles - 02/18/2024 10:39 AM EST Patient is calling into the office. He is requesting caths. He states that he needs 16F. Please assist, thank you [facility]01-06-2025 Miscellaneous Notes* Telephone Encounter - Sourav Valles - 02/18/2024 10:39 AM EST Patient is calling into the office. He is requesting caths. He states that he needs 16F. Please assist, thank you documented in this encounterSelect Medical Specialty [facility] [place]01-03-2025 History of Present illness Narrative* Stanton Velasco MD - 02/15/2024 9:30 AM EST Images from the original note were [...] (thin layer on neck, chest) TWICEDAILY NEEDED amoxicillin-clavulanate (Augmentin) 875-125 MG tablet Take [...] Do you have a medical power of field administrative assistant?: Yes Who is your medical power of field administrative assistant?: sister Objective : BP 128/74 Pulse 64 [...] facility ACP (advance care planning) Atherosclerosis of [place] coronary artery of [place] heart without angina pectoris (CMS/HCC) - CBC [...] on February 15, 2024 documented in this encounterRanken Jordan Pediatric Specialty HospitalScwuxusame46-96-3334 NoteHNO ID: [id number] Author: FADY DYE MD Service: ? Author [...] 2009 coronary dissection during stent placement CHEMODNRVTJ [facility] INNERVATED FACIAL NRV UNIL CYSTO.PANENDO 11/24/2021 Dr. Dye CYSTO.PANENDO 05/31/2022 CYSTO.PANENDO N/A 06/04/2023 CYSTOSCOPY 03/29/2017 Dr. Fady Dye - MIKO REJ [facility] LEFT HEART CATH,PERCUTANEOUS 05/11/2003 Cardiac [...] done by Nava Back LPN, [facility] Social History Tobacco Use Smoking [...] this improved his cap (more content not included)...[facility]12-05-2024 History of Present illness Narrative* Fady Dye MD - 01/17/2024 1:49 PM EST HPI: 73 M w CAD, OAB, slightly [...] and that lead to a CABG x1 [id number] Former smoker quit 1997 Hyperlipidemia Hypertension Intermittent self-catheterization of bladder Urge incontinence of urine PAST SURGICAL HISTORY Procedure Laterality Date ARTHRP KNE CONDYLE&PLATU MEDIAL&LAT COMPARTMENTS 10/30/2018 right CABG (1) VEIN GRAFT & ARTERIAL GRAFT 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 Dye CYSTO.PANENDO 05/31/2022 CYSTO.PANENDO N/A 06/04/2023 CYSTOSCOPY 03/29/2017 Dr. Fady Dye - [facility] LEFT HEART CATH,PERCUTANEOUS 05/11/2003 Cardiac [...] done by Nava Back LPN, [facility] Social History Tobacco Use Smoking [...] TABLETSBY MOUTH 6 (SIX) hours after procedure 6 [...] which included preparing to see the patient, pinx-iw-hcyh patient care, completing clinical documentation, obtaining and/or reviewing separately obtained history, counseling and educating the patient/family/caregiver, and ordering medications, tests, or procedures. Fayd Dye MD documented in this encounterSelect Medical Specialty [facility] [place]11-01-2024 Telephone encounter Note * Telephone Encounter - Daija Lares PA-C - 12/14/2023 3:30 PM EDT Fahad Sotelo [id number] Called patient re: recent urine culture with Dr. Salomon. No answer. Left VM with call back number. Sent Rx for bactrim to local pharmacy. Daija Lares PA-C 12/14/2023 3:31 PM [facility]11-01-2024 Miscellaneous Notes* Telephone Encounter - Daija Lares PA-C - 12/14/2023 3:30 PM EDT Fahad Sotelo [id number] Called patient re: recent urine culture with Dr. Salomon. No answer. Left VM with call back number. Sent Rx for bactrim to local pharmacy. Daija Lares PA-C 12/14/2023 3:31 PM documented in this encounterSelect Medical Specialty Hospital [facility] [place]10-31-2024 Nurse Note* Laila Teran LPN - 12/13/2023 9:55 AM EDT Faxed clinical notes that say patient needs pre-lubed coude caths because of bph and stricture, urinary retention three time a day, to [facility] fax # , [facility]10-31-2024 Nurse Note* Laila Teran LPN - 12/13/2023 9:55 AM EDT Faxed clinical notes that say patient needs pre-lubed coude caths because of bph and stricture, urinary retention three time a day, to [facility] fax # , documented in this encounterSelect Medical Specialty Hospital [facility] [place]10-30-2024 Instructions* Patient Instructions* Louie Salomon MD - 12/12/2023 1:49 PM EDT Today we discuss neuromodulation for overactive bladder with something like an interstim device. I can set you up to talk to Dr Dye to discuss this. That would not fix your stricture but if it improved your bladder function we could fix the stricture separately. documented in this encounterSelect Medical Specialty Hospital [facility] [place]10-30-2024 NoteHNO ID: [id number] Author: LOUIE SALOMON MD Service: ? Author [...] 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 Dye CYSTO.PANENDO 05/31/2022 CYSTO.PANENDO N/A 06/04/2023 CYSTOSCOPY 03/29/2017 Dr. Fady Dye - [facility] L[facility] LEFT HEART CATH,PERCUTANEOUS 05/11/2003 Cardiac [...] done by Nava Back LPN, [facility] Social History Tobacco Use Smoking [...] felt things were worse (more content not included)...[facility]Knsejmjp62-[facility]-7833 History of Present illness Narrative* Louie Salomon MD - 12/12/2023 1:31 PM EDT HPI: 73 M w CAD, OAB, slightly [...] and that lead to a CABG x1 [id number] Former smoker quit 1997 Hyperlipidemia Hypertension Intermittent self-catheterization of bladder Urge incontinence of urine PAST SURGICAL HISTORY Procedure Laterality Date ARTHRP KNE CONDYLE&PLATU MEDIAL&LAT COMPARTMENTS 10/30/2018 right CABG (1) VEIN GRAFT & ARTERIAL GRAFT 2009 coronary dissection during stent placement [facility]NRVTJ [facility] INNERVATED FACIAL NRV ESTEFANI CYSTO.PANENDO 11/24/2021 Dr. Dye CYSTO.PANENDO 05/31/2022 CYSTO.PANENDO N/A 06/04/2023 CYSTOSCOPY 03/29/2017 Dr. Fady Dye - [facility] LEFT HEART CATH,PERCUTANEOUS 05/11/2003 Cardiac [...] done by Nava Back LPN, [facility] Social History Tobacco Use Smoking [...] TABLETSBY MOUTH 6 (SIX) hours after procedure 6 [...] Three times a day documented in this encounterSelect Medical Specialty Hospital [facility] [place]10-30-2024 Nurse Note* Laila Teran LPN - 12/12/2023 1:19 PM EDT Post Void Residual done on patient with 110 cc residual volume remaining. MD notified. Laila Teran LPN [facility]10-30-2024 Nurse Note* Parul LailaARACELI - 12/12/2023 1:19 PM EDT Post Void Residual done on patient with 110 cc residual volume remaining. MD notified. Laila Trean LPN documented in this encounterSelect Medical Specialty Hospital - [place]10-01-2024 Telephone encounter Note * Telephone Encounter - Daija Lares PA-C - 11/13/2023 10:40 AM EDT Fahad Moore [facility] [id number] Returned call to patient. Got up 7 [...] there. Denies any bleeding on regular basis. Doesoccasionally see a whisp of blood in the [...] call. Daija Lares PA-C 11/13/2023 10:48 AM [facility] Work Phone: 1(587) 395-108910-01-2024 Miscellaneous Notes* Telephone Encounter - Daija Lares PA-C - 11/13/2023 10:40 AM EDT Fahad Sotelo [id number] Returned call to patient. Got up 7 [...] there. Denies any bleeding on regular basis. Doesoccasionally see a whisp of blood in the [...] call. Daija Lares PA-C 11/13/2023 10:48 AM * Telephone Encounter - Luzma Scott - 11/13/2023 9:26 AM EDT Pt states that he has had difficulty urinating the past couple days. He say he has to hold his breath and push out the urine. Also states he is having difficulty with cathing as well. documented in this encounterSelect Medical Specialty [facility] [place]10-01-2024 Telephone encounter Note * Telephone Encounter - Luzma Scott - 11/13/2023 9:26 AM EDT Pt states that he has had difficulty urinating the past couple days. He say he has to hold his breath and push out the urine. Also states he is having difficulty with cathing as well. [facility]09-20-2024 History of Present illness Narrative* Stanton Velasco MD - 11/02/2023 11:30 AM EDT Images from the original note [...] layer on neck, chest) TWICEDAILY NEEDED [DISCONTINUED] plecanatide (Trulance) tablet tablet Take [...] History: Diagnosis Date CAD (coronary artery disease) ([facility]) Closed torus fracture of upper end of left fibula 08/21/2022 Complete rotator cuff tear or rupture of right shoulder, not specified as traumatic 05/04/2021 HLD (hyperlipidemia) ([facility]) HTN (hypertension) ([facility]) Myocardial infarct ([facility]) Rotator cuff tear left Past Surgical History: [...] for To be determined. documented in this encounterRanken Jordan Pediatric Specialty HospitalNcyvhfthqa19-03-1484 Telephone encounter Note* Telephone Encounter - Louie Salomon MD - 09/11/2023 11:36 AM EDT Called to follow up on voiding/cathing data [...] will let me know if this helps [facility]07-30-2024 Miscellaneous Notes* Telephone Encounter - Louie Rondon MD - 09/11/2023 11:36 AM EDT Called to follow up on voiding/cathing data [...] know if this helps documented in this encounterSelect Medical Specialty Hospital [facility] [place]07-19-2024 Telephone encounter Note * Telephone Encounter - Louie Salomon MD - 08/31/2023 3:30 PM EDT Called to follow up on UDS Cathing [...] Will call with how he is feeling [facility] Work Phone: [phone]) 827-929907-19-2024 Miscellaneous Notes* Telephone Encounter - Louie Salomon MD - 08/31/2023 3:30 PM EDT Called to follow up on UDS Cathing [...] how he is feeling documented in this encounterSelect Medical Specialty Hospital [facility] [place]07-19-2024 History of Present illness Narrative* Louie Salomon MD - 08/31/2023 3:18 PM EDT UDS interpretation 300mls capacity Lots of pabd activity Strong desire at 270, No obvious DO or rise in pdet with permission to void Normal compliance Cathed for 300 documented in this encounterSelect Medical Specialty Hospital - [place]07-19-2024 Nurse Note* Martha Kelly RN - 08/31/2023 11:14 AM EDT [facility] URODYNAMIC [...] at home. Advised patient not to hold breathduring testing or at home. Unable to provide [...] understanding of instructions given. Martha Kelly RN [facility]07-19-2024 Nurse Note* Martha Kelly RN - 08/31/2023 11:14 AM EDT [facility] UR[facility] LAB URODYNAMIC [...] at home. Advised patient not to hold breathduring testing or at home. Unable to provide [...] given. Martha Kelly RN documented in this encounterSelect Medical Specialty Hospital [facility] [place]07-05-2024 Telephone encounter Note * Telephone Encounter - Daija Lares PA-C - 08/17/2023 11:09 AM EDT Fahad Sotelo [id number] Returned call to patient about dysuria. Still cathing 4x/day. Urine culture still in process but will send empiric antibiotic over until culture results. He expressed appreciation for the call. Daija Lares PA-C 08/17/2023 11:11 AM [facility]07-05-2024 Miscellaneous Notes* Telephone Encounter - Daija Lares PA-C - 08/17/2023 11:09 AM EDT Fahad Sotelo [id number] Returned call to patient about dysuria. Still cathing 4x/day. Urine culture still in process but will send empiric antibiotic over until culture results. He expressed appreciation for the call. Daija Lares PA-C 08/17/2023 11:11 AM documented in this encounterSelect Medical Specialty Hospital [facility] [place]07-03-2024 Telephone encounter Note * Telephone Encounter - Daija Lares PA-C - 08/15/2023 11:40 AM EDT Fahad Sotelo [id number] Returned call to patient. Complaining of urinary frequency and urgency. Last night voiding or needing to self cath every 90 minutes or so. Small volumes. Keeping close record of urination. Bowel function is at baseline. On home bowel regimen. Discussed that we should r/o UTI since he was recently instrumented. He is unsure how close a [facility] lab is from him. Possibly closest to [place]. He will go there to drop off a sample. Daija Lares PA-C 08/15/2023 11:45 AM [facility] Work Phone: [phone]) 390-302107-03-2024 Miscellaneous Notes* Telephone Encounter - Daija Lares PA-C - 08/15/2023 11:40 AM EDT Fahad Sotelo [id number] Returned call to patient. Complaining of urinary frequency and urgency. Last night voiding or needing to self cath every 90 minutes or so. Small volumes. Keeping close record of urination. Bowel function is at baseline. On home bowel regimen. Discussed that we should r/o UTI since he was recently instrumented. He is unsure how close a [facility] lab is from him. Possibly closest to [place]. He will go there to drop off a sample. Daija Lares PA-C 08/15/2023 11:45 AM documented in this encounterSelect [facility]06-[facility]24 Telephone encounter Note * Telephone Encounter - Corry Gregory APRN.LIFESTYLE CONSULTANT - 08/09/2023 2:13 PM EDT Fahad Sotelo had dilation on 08/02/2023 with plan to remove Duncan after 2-5 days and then resume ISC QID. Scheduled for UDS on 08/31/2023. Bladder is reportedly poorly compliant with small capacity. Called Fahad Sotelo. He reports that he removed Duncan on 08/04/2023. Yesterday, he started having hesitancy and getting larger volumes when he caths. [place] urge to cath 6-7 times yesterday. He did notmeasure cathed or voided volumes. He denies pain with voiding or cathing and difficulty passing catheters. He also had difficulty passing stool yesterday. Today, he has had a normal BM and feels likeurinary symptoms are also somewhat improved. Reassured Fahad [...] like symptoms are improving. Corry Gregory APRN.CNP [facility] Work Phone: [phone]) 479-588306-27-2024 Miscellaneous Notes* Telephone Encounter - Corry Gregory APRN.CNP - 08/09/2023 2:13 PM EDT Fahad Sotelo had dilation on 08/02/2023 with plan to remove Duncan after 2-5 days and then resume ISC QID. Scheduled for UDS on 08/31/2023. Bladder is reportedly poorly compliant with small capacity. Called Fahad Sotelo. He reports that he removed Duncan on 08/04/2023. Yesterday, he started having hesitancy and getting larger volumes when he caths. [place] urge to cath 6-7 times yesterday. He did notmeasure cathed or voided volumes. He denies pain with voiding or cathing and difficulty passing catheters. He also had difficulty passing stool yesterday. Today, he has had a normal BM and feels likeurinary symptoms are also somewhat improved. Reassured Fahad [...] like symptoms are improving. Corry Gregory APRN.CNP * Telephone Encounter - Corry Gregory APRN.CNP - 08/09/2023 2:06 PM EDT ----- Message from Maite Glass MA sent at 08/09/2023 8:45 AM EDT ----- Patient feels like he has to urinate all the time when he does go he has to hold his breath When he self caths a lot of urine comes out He is asking for a call Thanks Maite documented in this encounterSelect [facility] Telephone encounter Note * Telephone Encounter - Corry Gregory APRN.CNP - 08/09/2023 2:06 PM EDT ----- Message from Maite Glass MA sent at 08/09/2023 8:45 AM EDT ----- Patient feels like he has to urinate all the time when he does go he has to hold his breath When he self caths a lot of urine comes out He is asking for a call Thanks Maite [facility]06-20-2024 NoteHNO ID: [id number] Author: ADDIE MOREIRA APRN.CRNA Service: Anesthesiology Author Type: Nurse Cnc Operator Machinist Type: Anesthesia Procedure Notes Filed: 08/02/2023 09:31 Note Text: ANESTHESIOLOGY PROCEDURE NOTE Airway General Information Procedure Start Time/Medication Administration: 08/02/2023 9:09 AM Procedure End Time: 08/02/2023 9:30 AM Patient location during procedure: OR Timeout Performed Pre-procedure: timeout performed Consent Obtained: Yes Patient identity confirmed: arm band Staffing Performed by: anesthesiologist and UTILIZATION REVIEW SPECIALIST Indications and Patient Condition Indications for airway [...] no Airway not difficult SIGNATURE: Addie Moreira APRN.UTILIZATION REVIEW SPECIALIST PATIENT NAME: Fahad Sotelo DATE: August 02, 2023 TIME: 9:30 AM CSN: [id number] Telephone encounter Note * Telephone Encounter - Louie Salomon MD - 07/11/2023 10:59 AM EDT Called patient re: urine culture results He is not having symptoms Because we are planning a procedure I would rec treatment Abx sent to his pharmacy [facility]05-29-2024 Miscellaneous Notes* Telephone Encounter - Louie Rondon MD - 07/11/2023 10:59 AM EDT Called patient re: urine culture results He is not having symptoms Because we are planning a procedure I would rec treatment Abx sent to his pharmacy documented in this encounterSelect [facility]24 History and physical note * Rigo Cano APRN.NAVEEN - 07/05/2023 10:20 AM EDT HISTORY AND PHYSICAL EXAMINATION SERVICE DATE: 07/05/2023 [...] have a large neck STOP-Bang Score: 3 [id number] Score: Age: 65-74 Sex: male CHF history: No Hypertension history: Yes Stroke/TIA/thromboembolism history: No Vascular disease history: Yes Diabetes history: No [id number] Score: 3 ARISCAT Score: Age: 51-80 Preoperative [...] Smith present: no Lip Bite Test: II Microretrognathia/Micronagthia/Recessed Chin: No DENTAL Dental findings: teeth intact. [...] and that lead to a CABG x1 [id number] Former smoker quit 1997 Hyperlipidemia Hypertension Intermittent self-catheterization of bladder Urge incontinence of urine PAST SURGICAL HISTORY Procedure Laterality Date ARTHRP KNE CONDYLE&PLATU MEDIAL&LAT COMPARTMENTS 10/30/2018 right CABG (1) VEIN GRAFT & ARTERIAL GRAFT 2009 coronary dissection during stent placement CHEMODNRVTJ [facility] INNERVATED FACIAL NRV UNIL CYSTO.PANENDO 11/24/2021 Dr. Dye CYSTO.PANENDO 05/31/2022 CYSTO.PANENDO N/A 06/04/2023 CYSTOSCOPY 03/29/2017 Dr. Fady CROUCH REJ [facility] LEFT HEART CATH,PERCUTANEOUS 05/11/2003 Cardiac [...] done by Nava Back LPN, [place] LEE [facility] FAMILY HISTORY Problem Relation Age [...] TABLETSBY MOUTH 6 (SIX) hours after procedure Taking [...] fevers. Neuro: No history of TIA's, stroke, SUBASSEMBLY SUPERVISOR tumor, impaired sensorium, hemiplegia, paraplegia or quadraplegia. [...] Laterality Modality -- -- [place] [address] Nuclear Medicine Report Signed Patient: Fahad Sotelo MR#: [id number] : 1950 Acct:[id number] Age/Sex: 72 / M ADM Date: 06/27/23 Loc: [place] Attending Dr: Tamanna Joshua M.D. Ordering Physician: Tamanna Joshua M.D. Date of Service: 06/27/23 Procedure(s): NM rosenda perf SPECT rest str Accession Number(s): [id number] cc: STANTON VELASCO ; Tamanna Joshua M.D. Patient Name: FAHAD SOTELO MR#: [id number] : 1950 Exam Date: 06/27/2023 Ordering Doctor: [...] nuclear medicine myocardial perfusion scan. ECHO Order: [id number] Narrative PERFORMED AT [facility] LOCATION:[place] [address] Patient: AMANDA Shelby Exam Date: 06/07/2022 : 1950 Gender:M Ordering : DR TAMANNA JOSHUA M.D. Admission #: [id number] Family : DR STANTON VELASCO M.D. Order #: [id number] CLICK HERE TO VIEW EXAM ECHOCARDIOGRAM REPORT [...] Last Resulted: 06/07/22 12:00 AM Received From: [facility] No new labs or tests Instructions Given to Patient: Instructions located in the after visit summary. Patient given verbal and written preop instructions and voices comprehension and compliance. SIGNATURE: Rigo Cano APRN.CNP PATIENT NAME: Fahad Sotelo DATE: 07/05/2023 TIME: 1:35 PM [facility]05-23-2024 History and physical note* Rigo Cano APRN.CNP - 07/05/2023 10:20 AM EDT HISTORY AND PHYSICAL EXAMINATION SERVICE DATE: 07/05/2023 [...] have a large neck STOP-Bang Score: 3 [id number] Score: Age: 65-74 Sex: male CHF history: No Hypertension history: Yes Stroke/TIA/thromboembolism history: No Vascular disease history: Yes Diabetes history: No [id number] Score: 3 ARISCAT Score: Age: 51-80 Preoperative [...] Smith present: no Lip Bite Test: II Microretrognathia/Micronagthia/Recessed Chin: No DENTAL Dental findings: teeth intact. [...] and that lead to a CABG x1 [id number] Former smoker quit 1997 Hyperlipidemia Hypertension Intermittent self-catheterization of bladder Urge incontinence of urine PAST SURGICAL HISTORY Procedure Laterality Date ARTHRP KNE CONDYLE&PLATU MEDIAL&LAT COMPARTMENTS 10/30/2018 right CABG (1) VEIN GRAFT & ARTERIAL GRAFT 2009 coronary dissection during stent placement CHEMODNRVTJ [facility] INNERVATED FACIAL NRV UNIL CYSTO.PANENDO 11/24/2021 Dr. Dye CYSTO.PANENDO 05/31/2022 CYSTO.PANENDO N/A 06/04/2023 CYSTOSCOPY 03/29/2017 Dr. Fady CROUCH REJ [facility] LEFT HEART CATH,PERCUTANEOUS 05/11/2003 Cardiac [...] done by Nava Back LPN, [place] REJ [facility] FAMILY HISTORY Problem Relation Age [...] TABLETSBY MOUTH 6 (SIX) hours after procedure Taking [...] fevers. Neuro: No history of TIA's, stroke, SUBASSEMBLY SUPERVISOR tumor, impaired sensorium, hemiplegia, paraplegia or quadraplegia. [...] Laterality Modality -- -- [place] [address] Nuclear Medicine Report Signed Patient: Fahad Sotelo MR#: [id number] : 1950 Acct:[id number] Age/Sex: 72 / M ADM Date: 06/27/23 Loc: NM Attending Dr: Tamanna Joshua M.D. Ordering Physician: Tamanna Joshua M.D. Date of Service: 06/27/23 Procedure(s): NM rosenda perf SPECT rest str Accession Number(s): [id number] cc: STANTON VELASCO ; Tamanna Joshua M.D. Patient Name: FAHAD SOTELO MR#: [id number] : 1950 Exam Date: 06/27/2023 Ordering Doctor: [...] nuclear medicine myocardial perfusion scan. ECHO Order: [id number] Narrative PERFORMED AT [facility] LOCATION:[place] [address] Patient: AMANDA Shelby Exam Date: 06/07/2022 : 1950 Gender:M Ordering : DR TAMANNA JOSHUA M.D. Admission #: [id number] Family : DR STANTON VELASCO M.D. Order #: [id number] CLICK HERE TO VIEW EXAM ECHOCARDIOGRAM REPORT [...] Last Resulted: 06/07/22 12:00 AM [facility] No new labs or tests Instructions Given to Patient: Instructions located in the after visit summary. Patient given verbal and written preop instructions and voices comprehension and compliance. SIGNATURE: Rigo Cano APRN.CNP PATIENT NAME: Fahad Sotelo DATE: 07/05/2023 TIME: 1:35 PM documented in this encounterSelect [facility]-2024 Instructions* Patient Instructions* Rigo Cano APRN.CNP - 07/05/2023 10:06 AM EDT PATIENT PREOPERATIVE INSTRUCTIONS Louie Salomon MD has scheduled you for your procedure at this surgery center: [facility]: [phone] --[address] [address]. Please read below carefully for your personalized [...] Procedures: - YOU MUST HAVE A RESPONSIBLE PHARMACOVIGILANCE SAFETY EXPERT TAKE YOU HOME. A DAMPPROOFER OR CUSTOMER SALES SERVICE MANAGER CANNOT BE MADE A RESPONSIBLE PHARMACOVIGILANCE SAFETY EXPERT. - We recommend that a responsible person stays with you overnight to take care of you. - You cannot stay in a hotel alone after outpatient surgery. You will not be permitted to have yoursurgery, if you do not have someone to [...] Advance Directive, please fax a copy to [phone] or email to for it to be added to your chart. If you do not have an Advance Directive, you can find the appropriate form and more information at [email or web address]. We recommend that youcomplete the Advance Directive form found on the website and bring it with you the day of your surgery. It can be witnessed and scanned into your chart that day. Rigo Cano APRN.NAVEEN documented in this encounterSelect [facility]05-[facility]-2024 History of Present illness Narrative* Louie Salomon MD - 06/20/2023 10:30 AM EDT Images from the original note were not included. [facility] UROLOGY NEW PATIENT [...] and that lead to a CABG x1 [id number] Former smoker quit 1997 Hyperlipidemia Hypertension Intermittent self-catheterization of bladder Urge incontinence of urine PAST SURGICAL HISTORY PAST SURGICAL HISTORY Procedure Laterality Date ARTHRP KNE CONDYLE&PLATU MEDIAL&LAT COMPARTMENTS 10/30/2018 right CABG (1) VEIN GRAFT & ARTERIAL GRAFT 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 Dye CYSTO.PANENDO 05/31/2022 CYSTO.PANENDO N/A 06/04/2023 CYSTOSCOPY 03/29/2017 Dr. Fady Dye - MIKO REJ [facility] LEFT HEART CATH,PERCUTANEOUS 05/11/2003 Cardiac [...] done by Nava Back LPN, MIKO REJ [facility] FAMILY HISTORY FAMILY HISTORY Problem [...] TABLETSBY MOUTH 6 (SIX) hours after procedure trospium [...] tract surveillance Louie Salomon MD Associate Staff [facility] [place] Department of Urology I spent a total of 30 minutes on the date of the service which included preparing to see the patient, [id number]-pl-zgan patient care, completing clinical documentation, obtaining and/or reviewing separately obtained history, performing a medically appropriate examination, counseling and educating the pat ient/family/caregiver, and ordering medications, tests, or procedures. >50% of time was devoted to patient counseling. * Leoncio Zavala MA - 06/20/2023 10:19 AM EDT Post Void Residual done on patient with 0 cc residual volume remaining. MD notified. Leoncio Zavala MA documented in this encounterSelect Medical [facility]05-08-2024 NoteHNO ID: [id number] Author: DAIJA LARES PA-C Service: ? Author Type: Physician Type: Progress Notes Filed: 09/27/2023 11:19 Note Text: [facility] UROLOGY NEW PATIENT [...] 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 Dye CYSTO.PANENDO 05/31/2022 CYSTO.PANENDO N/A 06/04/2023 CYSTOSCOPY 03/29/2017 Dr. Fady LEE [facility] LEFT HEART CATH,PERCUTANEOUS 05/11/2003 Cardiac [...] done by Nava Back LPN, MIKO LEE [facility] FAMILY HISTORY FAMILY HISTORY Problem [...] facility-administered medications for (more content not included)... [id number] NoteHNO ID: [id number] Author: LEONCIO ZAVALA MA Service: ? Author Type: Acid Bath Mixer Type: Progress Notes Filed: 06/20/2023 15:02 Note Text: Post Void Residual done on patient with 0 cc residual volume remaining. MD notified. [facility] Telephone encounter Note* Telephone Encounter - Kris Venegas RN - 06/11/2023 3:25 PM EDT Images from the original note were not included. Radha Ramos MD You 2 days ago Thank you, patient would use what he is comfortable with. Thank you Radha Ramos MD Phoned pt to inform of response, he states he used to use curved most of the time , but has been using both strait and curved since cystoscopy without any problems [facility]04-29-2024 Miscellaneous Notes* Telephone Encounter - Kris Venegas RN - 06/11/2023 3:25 PM EDT Images from the original note were not included. Radha Ramos MD You 2 days ago Thank you, patient would use what he is comfortable with. Thank you Radha Ramos MD Phoned pt to inform of response, he states he used to use curved most of the time , but has been using both strait and curved since cystoscopy without any problems * Telephone Encounter - Kris Venegas RN - 06/08/2023 3:45 PM EDT Pt arrived for nurse visit duncan catheter removal post 06/04/23 office cystoscopy for stricture dilation. He will resume ISC as instructed . Noted that letter was sent to his vendor of choice, [employer]. Letter to [employer] indicated 16 maltese strait tip. Pt prefers to use coude tip. Checking with provider if to use strait or coude ([employer] order written for strait tip) documented in this encounterSelect [facility]04-28-2024 Telephone encounter Note * Telephone Encounter - Radha Ramos MD - 06/10/2023 6:16 PM EDT Please update the patient , keflex sent to pharmacy. Radha Ramos MD [facility]04-28-2024 Miscellaneous Notes* Telephone Encounter - Radha Ramos MD - 06/10/2023 6:16 PM EDT Please update the patient , keflex sent to pharmacy. Radha Ramos MD documented in this encounterSelect Medical [facility]04-26-2024 Telephone encounter Note * Telephone Encounter - Kris Venegas RN - 06/08/2023 3:45 PM EDT Pt arrived for nurse visit duncan catheter removal post 06/04/23 office cystoscopy for stricture dilation. He will resume ISC as instructed . Noted that letter was sent to his vendor of choice, [employer]. Letter to [employer] indicated 16 maltese strait tip. Pt prefers to use coude tip. Checking with provider if to use strait or coude ([employer] order written for strait tip) [facility]04-26-2024 Note* Addendum Note - Kris Venegas RN - 06/08/2023 3:38 PM EDTAddended by: KRIS VENEGAS on: 06/08/2023 03:38 PM Modules accepted: Orders [facility]04-26-2024 Miscellaneous Notes* Addendum Note - Kris eVnegas RN - 06/08/2023 3:38 PM EDTAddended by: KRIS VENEGAS on: 06/08/2023 03:38 PM Modules accepted: Orders documented in this encounterSelect Medical [facility]04-26-2024 Nurse Note* Kris Venegas RN - 06/08/2023 3:18 PM EDT Pt arrives, ambulatory for duncan catheter removal post 06/04/23 office cystoscopy for stricture dilation. Pt admits to increase in bladder spasms, discomfort in shaft of penis and urethra, burning discomfort in penis and bladder area. Intermittent urethral leakage, admits to intermittent small amount of bloody globs ; admits he struggles with regular bowel movements. 18 maltese STRAIT duncan catheter attached to leg bag, draining cloudy yellow urine, dime sized brownclot evident in top of bag. Balloon deflated, [...] update on strait or coude for ISC. [facility]04-26-2024 Nurse Note* Kris Venegas RN - 06/08/2023 3:18 PM EDT Pt arrives, ambulatory for duncan catheter removal post 06/04/23 office cystoscopy for stricture dilation. Pt admits to increase in bladder spasms, discomfort in shaft of penis and urethra, burning discomfort in penis and bladder area. Intermittent urethral leakage, admits to intermittent small amount of bloody globs ; admits he struggles with regular bowel movements. 18 maltese STRAIT duncan catheter attached to leg bag, draining cloudy yellow urine, dime sized brownclot evident in top of bag. Balloon deflated, [...] or coude for ISC. documented in this encounterSelect [facility]04-25-2024 Telephone encounter Note * Telephone Encounter - Aislinn Diggs RN - 06/07/2023 11:14 AM EDT Spoke with patient Discussed bladder spasms/leakage NV tomorrow can assess need for straight cath UA. OK for patient to take Tylenol for discomfort. Will provide 16fr. ISC catheter sample for patient to use as he currently only has 14 fr. At home. Pt verbalizes understanding of plan and declines further questions/concerns at this time. [facility]04-[facility]-2024 Miscellaneous Notes* Telephone Encounter - Aislinn Diggs RN - 06/07/2023 11:14 AM EDT Spoke with patient Discussed bladder spasms/leakage NV tomorrow can assess need for straight cath UA. OK for patient to take Tylenol for discomfort. Will provide 16fr. ISC catheter sample for patient to use as he currently only has 14 fr. At home. Pt verbalizes understanding of plan and declines further questions/concerns at this time. * Telephone Encounter - Aba Perry - 06/07/2023 8:38 AM EDT Pt called the office; stated that he has an appt in office tomorrow for catheter removal. Pt statedthat he has leaking, a burning sensation, and is feeling the need to urinate. Pt is requesting a phone call at your earliest convenience. Please advise. documented in this encounterSelect [facility]04-25-2024 Telephone encounter Note * Telephone Encounter - Aba Perry - 06/07/2023 8:38 AM EDT Pt called the office; stated that he has an appt in office tomorrow for catheter removal. Pt statedthat he has leaking, a burning sensation, and is feeling the need to urinate. Pt is requesting a phone call at your earliest convenience. Please advise. [facility]04-[facility]-2024 Telephone encounter Note* Telephone Encounter - Shameka Carrillo RN - 06/06/2023 9:58 AM EDT Returning phone call to patient. Updated patient that catheter order was sent to [facility]. Patient states he's been leaking around catheter. Explained to patient the reasons for this - constipation, bladder spasms, kink in tubing. Patient adjusted securing device d/t pulling. Admits to constipation - on bowel regimen. Scheduled for NV for duncan removal on 06/08/2023 at 3pm. Patient in agreement with plan. Shameka Carrillo RN [facility]04-24-2024 Miscellaneous Notes* Telephone Encounter - Shameka Carrillo RN - 06/06/2023 9:58 AM EDT Returning phone call to patient. Updated patient that catheter order was sent to [facility]. Patient states he's been leaking around catheter. Explained to patient the reasons for this - constipation, bladder spasms, kink in tubing. Patient adjusted securing device d/t pulling. Admits to constipation - on bowel regimen. Scheduled for NV for duncan removal on 06/08/2023 at 3pm. Patient in agreement with plan. Shameka Carrillo RN * Telephone Encounter - Shameka Carrillo RN - 06/06/2023 9:57 AM EDT ISC catheter order sent to [facility]. Ordered for 3 months. 16F straight daily to keep stricture open. Will call to update patient. Shameka Carrillo RN * Telephone Encounter - Oneyda Blackmon - 06/06/2023 8:49 AM EDT Fahad is calling Radha Ramos MD today to request catheters to be sent to [facility].Please advise. Phone number: [phone] Patient has been identified by name and birthdate. Duration of symptoms: N/A Person calling: self Call patient at: at home [phone] (home) Was an appointment scheduled: No Closing statement: Results or non-symptom based questions: Thank you for calling [facility], your call will be returned within the next business day. Thank you, Oneyda Blackmon documented in this encounterSelect [facility]04-24-2024 Telephone encounter Note * Telephone Encounter - Shameka Carrillo RN - 06/06/2023 9:57 AM EDT ISC catheter order sent to [facility]. Ordered for 3 months. 16F straight daily to keep stricture open. Will call to update patient. Shameka Carrillo RN [facility]04-24-2024 Telephone encounter Note* Telephone Encounter - Oneyda Blackmon - 06/06/2023 8:49 AM EDT Fahad is calling Radha Ramos MD today to request catheters to be sent to [facility].Please advise. Phone number: [phone] Patient has been identified by name and birthdate. Duration of symptoms: N/A Person calling: self Call patient at: at home [phone] (home) Was an appointment scheduled: No Closing statement: Results or non-symptom based questions: Thank you for calling [facility], your call will be returned within the next business day. Thank you, Oneyda Blackmon [facility]04-22-2024 Procedure note* Kiesha Martínez MA - 06/04/2023 11:53 AM EDT UNIVERSAL PROTOCOL / SAFETY CHECKLIST Procedure to [...] Visit completed when applicable. DIAZ Dykes MD [facility]04-22-2024 Procedure note* Kiesha Martínez MA - 06/04/2023 11:53 AM EDT UNIVERSAL PROTOCOL / SAFETY CHECKLIST Procedure to [...] Visit completed when applicable. DIAZ Dykes MD * Radha Ramos MD - 06/04/2023 11:30 AM EDTProcedure(s): CYSTOSCOPY; URETHRAL DILATION, MALE Pre-Procedure Diagnose(s): Stricture [...] was able to describe the procedure. Two percentlidocaine gel injected into the urethra.. Using a 16 Fr. Flexible cystoscope, urethra was examined , showing two tight areas of stricture in the urethra the most distal area at the fossa navicularis,this was passed with the scope with difficulty. The proximal stricture was too tight to pass the scope. A 0.038 Solo flex wire passed through the scope and into the urinary bladder, dilation with amplatz urethral dilators from size 14 fr to 22 Fr. The scope was introduced into the urinary bladder revealing trabeculated urinary bladder. An 18 fr shoalwater tip catheter passed over the guide wire for 5 days. Findings: two tight areas of the urethra noted. Trabeculated urinary bladder. Discussed referring to Dr. Louie Salomon to discuss further management of the urethral stricture Patient will resume cathing with 16 Fr straight catheter once daily to keep the area of the stricture patent. Radha Ramos MD documented in this encounterSelect [facility] [place] Nurse Note* Kiesha Martínez MA - 06/04/2023 11:33 AM EDT PROCEDURE NURSE ASSESSMENT Patient ID with two(2)identifiers [...] patient verbalizes understanding: yes Kiesha Martínez MA [facility]04-22-[facility]24 Instructions* Patient Instructions* Kiesha Martínez MA - 06/04/2023 11:33 AM EDT After your Cystoscopy with Dr. Richard You have undergone a cystoscopy. Your doctor [...] with drinking extra fluids. Please call the [employer]k/MELISSA [place]enson [place] office at [phone] Sunday-Sunday 8 am - 5 pm with any questions you may have and ask for the Urology nurses. If you call after 5 PM or on the weekends, please call [phone] documented in this encounterSelect [facility] [place]04-22-2024 Nurse Note* Kiesha Martínez MA - 06/04/2023 11:33 AM EDT PROCEDURE NURSE ASSESSMENT Patient ID with two(2)identifiers [...] yes Kiesha Martínez MA documented in this encounterSelect [facility] [place]04-22-2024 Procedure note* Radha Ramos MD - 06/04/2023 11:30 AM EDTProcedure(s): CYSTOSCOPY; URETHRAL DILATION, MALE Pre-Procedure Diagnose(s): Stricture [...] was able to describe the procedure. Two percentlidocaine gel injected into the urethra.. Using a 16 Fr. Flexible cystoscope, urethra was examined , showing two tight areas of stricture in the urethra the most distal area at the fossa navicularis,this was passed with the scope with difficulty. The proximal stricture was too tight to pass the scope. A 0.038 Solo flex wire passed through the scope and into the urinary bladder, dilation with amplatz urethral dilators from size 14 fr to 22 Fr. The scope was introduced into the urinary bladder revealing trabeculated urinary bladder. An 18 fr shoalwater tip catheter passed over the guide wire for 5 days. Findings: two tight areas of the urethra noted. Trabeculated urinary bladder. Discussed referring to Dr. Louie Salomon to discuss further management of the urethral stricture Patient will resume cathing with 16 Fr straight catheter once daily to keep the area of the stricture patent. Radha Ramos MD [facility]04-02-2024 Instructions* Patient Instructions* Nithya Rhodes PA-C - 05/15/2023 3:54 PM EDT [facility] CYSTOSCOPY: The cystoscope is an instrument [...] coude twice a day. documented in this encounterSelect [facility] [place]04-02-2024 History of Present illness Narrative* Nithya Rhodes PA-C - 05/15/2023 3:40 PM EDT [facility] [...] and that lead to a CABG x1 [id number] Former smoker quit 1997 Hyperlipidemia Hypertension Intermittent [...] 03/29/2017 Dr. Fady Dye - [facility] LEFT HEART CATH,PERCUTANEOUS 05/11/2003 Cardiac [...] done by Nava Back LPN, [facility] Past Social History: Social History [...] single, serious condition or a complex condition. * Rigo Martin LPN - 05/15/2023 3:38 PM EDT Patient urinated down stairs PVR = 0 ml Via bladder scan. documented in this encounterSelect Medical [facility]ty [facility] [place]05-12-2023 History of Present illness Narrative* Nehemiah Gilbert PA-C - 06/23/2022 2:54 PM EDT Images from the original note were [...] and that lead to a CABG x1 [id number] Former smoker quit 1997 Hyperlipidemia Hypertension Intermittent [...] to isolate the deltoid to work on decreasinghis functional capacity. Discussed the potential for meeting with a formal physical therapist whichhe wanted to hold off on. Spent quite bit of time explaining to him the nature of his current state and the nature of his previous surgery that he had. Discussed the role of cortisone injections, he will consider this in the future if the pain worsens. Nehemiah Gilbert PA-C documented in this encounterSelect [facility] [place]05-12-2023 History of Present illness Narrative* RT Gerber(R) - 06/23/2022 1:34 PM EDT Radiology Service Progress Note PATIENT [...] X-ray: Exam(s) Completed: Upper Extremity X- Ray(s): Shoulder, AP / TRUE AP / AXILLARY left PERIPHERAL IV DATA: Not applicable SIGNED BY: RT Gerber(R) June 23, 2022 1:34 PM documented in this encounterSelect Medical [facility] [place]04-19-2023 Procedure note* Radha Ramos MD - 05/31/2022 2:39 PM EDTProcedure(s): CYSTOSCOPY; URETHRAL DILATION, MALE Pre-Procedure Diagnose(s): Urine [...] was able to describe the procedure. Two percentlidocaine gel injected into the urethra.. Using a 16 Fr. Flexible cystoscope, urethra urinary bladder were examined systematically including the posterior, right and left lateral mixon, anterior and bladder dome, manifested by the presence of air bubble, showing tight stricture in the anterior urethra, unable to pass the scope safely, did dilate the stricture with Knott dilators from size 14 to 24 Fr, [...] bladder Radha Ramos MD documented in this encounterSelect [facility] [place]04-19-2023 Instructions* Patient Instructions* Rigo Martin LPN - 05/31/2022 2:11 PM [...] with drinking extra fluids. Please call the [employer] Desk/MELISSA HILARIOFeeX - [employer] office at [phone] Sunday-Sunday 8 am - 5 pm with any questions you may have and ask for the Urology nurses. If you call after 5 PM or on the weekends, please call [phone] documented in this encounterSelect [facility] [place]04-19-2023 Nurse Note* Rigo Martin LPN - 05/31/2022 1:42 PM EDT PROCEDURE NURSE ASSESSMENT Patient ID with two(2)identifiers [...] yes Rigo Martin LPN documented in this encounterSelect [facility] [place]03-14-2023 Instructions* Patient Instructions* Nithya Rhodes PA-C - 04/25/2022 9:31 AM EDT [facility] CYSTOSCOPY: The cystoscope is an instrument [...] to help with urgency documented in this encounterSelect Medical [facility] [place]03-14-2023 History of Present illness Narrative* Rigo Martin LPN - 04/25/2022 9:01 AM EDT PVR = 0 ml Via bladder scan. Had patient demonstrate cathing to see difficulty Did see resistance proximal urethra Patient does have L hand dexterity issues making it a little more difficult Able to pass catheter, few drops of urine in return Offered patient to try other catheters, patient declined * Nithya Rhodes PA-C - 04/25/2022 9:00 AM EDT [facility] [...] and that lead to a CABG x1 [id number] Former smoker quit 1997 Hyperlipidemia Hypertension Intermittent self-catheterization of bladder Urge incontinence of urine Past Surgical History: PAST SURGICAL HISTORY Procedure Laterality Date ARTHRP KNE CONDYLE&PLATU MEDIAL&LAT COMPARTMENTS 10/30/2018 right CABG (1) VEIN GRAFT & ARTERIAL GRAFT 2008 coronary dissection during stent placement [facility] INNERVATED FACIAL NRV UNIL CYSTO.PANENDO 11/24/2021 Dr. Dye CYSTOSCOPY 03/29/2017 Dr. Fady Dye - [facility] LEFT HEART CATH,PERCUTANEOUS 05/11/2003 Cardiac [...] done by Nava Back LPN, [facility] Past Social History: Social History [...] check. 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 We discussed both operativeand conservative treatment. Discussed implications of operative treatment which would entail revision. Discussed no guarantees will be given. If he wishes to consider surgical treatment we will have him see Dr. Smith for repeat evaluation. Follow-up as symptoms dictate Kev Ferrell MD documented in this encounterSelect [facility] [place]09-27-2022 History of Present illness Narrative* Kev Ferrell MD - 11/08/2021 2:47 PM EDT This document has been created with [...] dictate Kev Ferrell MD documented in this encounterSelect [facility] [place]09-27-2022 History of Present illness Narrative* Kirstin Echeverria, RT(R) - 11/08/2021 1:30 PM EDT f/u rt shoulder replacement documented in this encounterSelect Medical [facility]ty [facility] [place]09-26-2022 Miscellaneous Notes* Telephone Encounter - Aislinn Daniels - 11/07/2021 10:45 AM EDT Sent message to AV to assist in rescheduling [place] patient, received message back that they could not accommodate, sent a message to to reschedule patient. documented in this encounterSelect Medical [facility]ty [facility] [place]09-19-2022 Miscellaneous Notes* Telephone Encounter - Lorrie Diaz PA-C - 10/31/2021 11:34 AM EDT Pt needs nurse visit to troubleshoot CIC and if true issues needs cysto Ordered cysto so can get on schedule just in case as Dr. BOWER books up Routed to EDISONLolly W[employer] D[employer]le olu to please assist in scheduling 1 nurse visit chu 2. Cysto with Dr Dye if needed (can always cancel if nurse visit effective in troubleshooting) Lorrie Diaz PA-C * Telephone Encounter - Luzma Scott - 10/31/2021 11:17 AM EDT Pt has been having a hard time cathing. He said it is hard to get started and once he gets the cathin 4 or 5 inches it comes to a hard stop. He doesn't want to push to hard because he doesn't want to puncture anything. He feels like the cath is hitting his intestines. documented in this encounterSelect [facility] [place]05-12-2022 Miscellaneous Notes* Telephone Encounter - Vandana Álvarez Ma - 06/23/2021 11:01 AM EDT We have received fax from [employer]. icd-10 code: R33.9 retention of urine, unspecified. [...] once signed and dated. documented in this encounterSelect [facility] [place]05-05-2022 History of Present illness Narrative* Taylor Lawrence Min Pss - 06/16/2021 12:50 PM EDT POPULATION HEALTH NAVIGATION OUTREACH Action/FYI Patient Outreach: [...] 16, 2021 12:51 PM documented in this encounterSelect [facility] [place]05-03-2022 History of Present illness Narrative* Kev Ferrell MD - 06/14/2021 9:18 AM EDT This document has been created [...] Duration Units: Unknown Frequency: Continuous Intervention/Comfort measure: Reposition;Relaxation;Exercise;Cold;Positioning The patient's past medical history, surgical history, [...] 14, 2021 9:56 AM documented in this encounterSelect [facility] [place]04-12-2022 Instructions* Patient Instructions* Nehemiah Gilbert PA-C - 05/24/2021 10:21 AM [...] cover the incision anymore. documented in this encounterSelect [facility] [place]04-12-2022 History of Present illness Narrative* Nehemiah Gilbert PA-C - 05/24/2021 9:58 AM EDT This document has been created with the use of voice recognition technology. It may contain inaccuracies: misspellings, inaccurate syntax or word sense that escaped review. HISTORY: Fahad is a 70 year old male. He is here following up for reverse right shoulder arthroplasty with a date of surgery of 04/04/21. He states he is achy. He was discharged from the rehab facilityon SundayMay 20. He is being set up for [facility] PT and will have a nurse aide coming a couple timesa week as well. HISTORY OF PRESENT ILLNESS: [...] AM LEATHA Kay PA-C documented in this encounterSelect Medical [facility] [place]04-12-2022 History of Present illness Narrative* RT Grupo(R) - 05/24/2021 9:56 AM EDT Radiology Service Progress Note PATIENT [...] X-ray: Exam(s) Completed: Upper Extremity X- Ray(s): Shoulder, AP / TRUE AP / AXILLARY right PERIPHERAL IV DATA: Not applicable SIGNED BY: RT Grupo(R) May 24, 2021 9:56 AM documented in this encounterSelect Medical [facility] [place]03-28-2022 Miscellaneous Notes* Telephone Encounter - Nehemiah Gilbert PA-C - 05/09/2021 4:21 PM EDT Spoke to the therapist at the rehab facility and clarified orders. Nehemiah Gilbert PA-C * Telephone Encounter - Cassie Raya RN - 05/09/2021 3:42 PM EDT Pt. Is in rehab. They are unsure of his rom limitions. At this time they believe it is only passive rom with external rotation past neutral. No active rom. And non weight bearing. Please review and advise them at number in contacts. documented in this encounterSelect Medical [facility]ty [facility] [place]03-23-2022 NoteHNO ID: [id number] Author: Cheryl Trevino RN Service: Care Management [...] 04, 2021 TIME: 11:50 AM PAGER/CONTACT #: [phone] NoteHNO ID: [id number] Author: Cheryl Trevino RN Service: Care Management Author Type: Registered Nurse Type: Care Mgt Progress Note Filed: 05/04/2021 11:39 AM Note Text: CARE MANAGEMENT DISCHARGE NOTE SERVICE DATE: 05/04/2021 SERVICE TIME: 11:38 AM LOS: 0 days Admission Date: 05/02/2021 DISCHARGE ARRANGEMENT (list agency and phone number) Discharge Arrangement: Correction Facility Was an expedited discharge program used?: [...] Name/Phone: Stanton Velasco II Other Caregiver Name/Phone: [facility] TRANSPORTATION ARRANGEMENTS: Transportation Arrangements: Ambulance/[place] Transportation Agency and Phone #:: [facility] [phone] Date of Trip: 05/04/21 Time of Trip: 1600 Type of Service: BLS Non-emergency Is Patient Medicaid Pending?: No Developmental Training Counselor Location: [place] Destination: [facility] Financial Care Management Responsibility: None Discharge Information Row Name Admission (Current) from 05/02/[address] [facility] Agency [facility] SIGNATURE: Cheryl Trevino RN PATIENT NAME: Fahad Sotelo DATE: May 04, 2021 TIME: 11:38 AM PAGER/CONTACT #: [phone] NoteHNO ID: [id number] Author: Cheryl Trevino RN Service: Care Management Author Type: Registered Nurse Type: Care Mgt Progress Note Filed: 05/03/2021 4:16 PM Note Text: CARE MANAGEMENT PROGRESS NOTE SERVICE DATE: 05/03/2021 SERVICE TIME: 4:14 PM LOS: 0 days [facility] can accept pending precert. [facility] tasked to start precert. SIGNATURE: Cheryl Trevino RN PATIENT NAME: Fahad Sotelo DATE: May 03, 2021 TIME: 4:14 PM PAGER/CONTACT #: [phone] NoteHNO ID: [id number] Author: Cheryl Trevino RN Service: Care Management Author Type: Registered Nurse Type: Care Mgt Progress Note Filed: 05/03/2021 2:31 PM Note Text: CARE MANAGEMENT PROGRESS NOTE SERVICE DATE: 05/03/2021 SERVICE TIME: 2:30 PM LOS: 0 days Mclean of Choice Given: Yes Reason Not Given: Unable to complete with this assessment - revisit Level of Care Discussed: Correction Facility Financial Disclosure Provided: Yes Provider List: Correction Facility Provider list within the patient's requested geographic area shared with the patient/family: Yes Quality and resource use metrics shared with the patient that are relevant to the patient's goals of care and treatment preferences:: Yes Referrals to 1. [facility], 2. [place]. Patient will need precert. SIGNATURE: Cheryl Trevino RN PATIENT NAME: Fahad Sotelo DATE: May 03, 2021 TIME: 2:30 PM PAGER/CONTACT #: [phone] NoteHNO ID: [id number] Author: Cheryl Trevino RN Service: Care Management Author Type: Registered Nurse Type: Care Mgt Initial Assessment Filed: 05/03/2021 12:13 PM Note Text: CARE MANAGEMENT: ASSESSMENT AND DISCHARGE PLAN SERVICE DATE: May 03, 2021 SERVICE TIME: 12:12 PM PRIMARY CARE PHYSICIAN: Stanton Velasco II, MD ADMISSION STATUS: Extended Recovery MEDICAL: [facility] Patient/Stage Rigger Stated Goals: To return home to life as it was Health Insurance: Comment ([facility]) Health Issues Impacting Discharge Plan: Newly diagnosed Newly Diagnosed: TSA Last Discharge Date: 12/19/19 Is this Within the Past 30 days? Last discharge within 30 days: No Advance Directive: Current Advance Directive: Health Care Power of Multimedia Developer In Chart: Yes Up To Date and [...] Walker;Cane Has the Patient Been in a Correction Facility in the Past 30 days?: No SOCIAL: Living Arrangements: Home Lives With: Alone Financial Resources: Retired Primary Contact: Extended Emergency Contact Information Primary Emergency Contact: Raya Larsen Toponas Relation: Sister Supportive Patient Contact:: Yes Contact [...] Completely I feel financially burdened by my ggi-ij-[id number] expenses for my prescription medication:: 0 - Disagree Completely Risk Score: 0 Patient is categorized as: Low risk < 2 Are you interested in bedside delivery of your medications? Yes Is Patient Psychosocially Complex?: No ASSESSMENT AND PLAN: Medical Needs: Medical Needs: Two or more chronic diseases Psychosocial Needs: Psychosocial Needs: None FREEDOM OF CHOICE EXPLAINED: Mclean of Choice Given: No Reason Not Given: Unable to complete with this assessment - revisit POTENTIAL TRANSITION PLANS Home;Home Care;Correction Facility/Intermediate Care Facility Patient from home alone. Patient self caths twice a day. Patient is concerned about going home with outpatient PT. Would like HHC or SNF if he qualifies. Patient has an outpatient PT at [facility] on . SIGNATURE: Cheryl Trevino RN PATIENT NAME: Fahad Sotelo DATE: May 03, 2021 TIME: 12:12 PM PAGER/CONTACT #: [phone] NoteHNO ID: [id number] Author: Christina Salazar PA-C Service: Orthopaedic Surgery Author Type: Physician Returns Clerk Type: Progress Notes Filed: 05/03/2021 9:40 [...] Electronically signed by: Christina Salazar PA-C Pager: [phone] [id number] NoteHNO ID: [id number] Author: RT Sherri(R) Service: Radiology Author Type: Stripper And Opaquer Apprentice Type: Progress Notes Filed: 05/02/2021 11:51 AM [...] BY: RT Sherri(R) May 02, 2021 11:51 AMBlue Mountain Hospital, Inc.[id number] NoteHNO ID: [id number] Author: Jeanne Beck APRN.UTILIZATION REVIEW SPECIALIST Service: Anesthesiology Author Type: Nurse Cnc Operator Machinist Type: Anesthesia Procedure Notes Filed: 05/02/2021 8:28 AM Note Text: ANESTHESIOLOGY PROCEDURE NOTE PIV General Information Procedure Start Time/Medication Administration: 05/02/2021 8:05 AM Patient Location: OR Staffing UTILIZATION REVIEW SPECIALIST: Jeanne Beck APRN.UTILIZATION REVIEW SPECIALIST Performed by: NATHANIEL Preparation Sterility Preparation: hand hygiene performed prior to procedure Site Prep: Betadine and chlorhexidine Procedure Details Indication: need for IV access Needle Size/Type: 18 gauge angiocath Imaging Guidance Used: No SIGNATURE: Jeanne Beck APRN.CRNA PATIENT NAME: Fahad Sotelo DATE: May 02, 2021 TIME: 8:27 AM CSN: [id number] NoteHNO ID: [id number] Author: Jeanne Beck APRN.UTILIZATION REVIEW SPECIALIST Service: Anesthesiology Author Type: Nurse Cnc Operator Machinist Type: Anesthesia Procedure Notes Filed: 05/02/2021 8:22 AM Note Text: ANESTHESIOLOGY PROCEDURE NOTE Airway General Information Procedure Start Time/Medication Administration: 05/02/2021 7:46 AM Patient location during procedure: OR Timeout Performed Pre-procedure: timeout performed Consent Obtained: Yes 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 REVIEW SPECIALIST: Jeanne Beck APRN.UTILIZATION REVIEW SPECIALIST Performed by: UTILIZATION REVIEW SPECIALIST Indications and Patient Condition Preoxygenated: yes Patient [...] May 02, 2021 TIME: 8:22 AM CSN: [id number] NoteHNO ID: [id number] Author: Jeanne Beck APRN.UTILIZATION REVIEW SPECIALIST Service: Anesthesiology Author Type: 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 Operator Machinist Type: Anesthesia Procedure Notes Filed: 05/02/2021 7:43 [...] May 02, 2021 TIME: 7:42 AM CSN: [id number] History of Present illness Narrative* Shameka Jesus CT - 01/04/2021 11:40 AM EST Radiology Service Progress Note PATIENT NAME: Fahad [...] 04, 2021 11:16 AM documented in this encounterSelect [facility] [place]11-09-2021 History of Present illness Narrative* Kirstin Echeverria, RT(R) - 12/21/2020 11:30 AM EST Radiology Service Progress Note PATIENT NAME: Fahad [...] X-ray: Exam(s) Completed: Upper Extremity X- Ray(s): Shoulder, AP / TRUE AP / AXILLARY right PERIPHERAL IV DATA: Not applicable SIGNED BY: Kirstin Echeverria RT(R) December 21, 2020 11:38 AM documented in this encounterVeterans Health Administrationaluation + Plan note Future Appointments Appointment Date:07/28/2024 12:15:00 PM Scheduled Provider:Hema Solorio MD Location:[facility] Appointment Type:BAD Follow Up [facility]* Diagnosis Nontraumatic complete tear of right rotator cuff- Primary documented [facility] this encounter [facility]* Diagnosis S/P reverse total shoulder arthroplasty, right- Primary documented in this encounter [facility] noteNo assessment information availableC[facility] Clinic [facility] Work Phone: Evalutyvbd note* Diagnosis S/P reverse total shoulder arthroplasty, right- Primary documented in this encounter [facility] note* Diagnosis Urinary retention- Primary Retention of urine, unspecified Self-catheterizes urinary bladder Other specified conditions influencing health status Benign prostatic hyperplasia with weak urinary stream documented in this encounter [facility] note* Diagnosis S/P reverse total shoulder arthroplasty, right- Primary documented in this encounter [facility] note* Diagnosis Chronic knee pain after total replacement of right knee joint- Primary documented in this encounter [facility] note* Diagnosis Stricture of male urethra, unspecified stricture type- Primary Urinary urgency Urgency of urination documented [facility] this encounter [facility]* Diagnosis Screening for genitourinary condition- Primary Screening for other and unspecified genitourinary condition Stricture of male urethra, unspecified stricture type documented [facility] this encounter [facility]* Diagnosis Rotator cuff dysfunction, left- Primary History of failed repair of rotator cuff Other postprocedural status Left shoulder pain, unspecified chronicity documented in this encounter [facility]* Diagnosis History of lumbar fusion Chronic midline low back pain, unspecified whether sciatica present Radiculopathy of lumbar region Thoracic or lumbosacral neuritis or radiculitis, unspecified documented [facility] this encounter [facility]* Diagnosis Nontraumatic complete tear of right rotator cuff Rotator cuff arthropathy of right shoulder Arthritis of shoulder Unspecified arthropathy, shoulder region documented in this encounter [facility] note* Diagnosis Stricture of urethral meatus in male, unspecified stricture type- Primary [facility] [facility]* Diagnosis Screening for genitourinary condition- Primary Screening for other and unspecified genitourinary condition documented in this encounter [facility] note* Diagnosis Stricture of male urethra, unspecified stricture type- Primary Post-traumatic stricture of anterior urethra Self-catheterizes urinary bladder Other specified conditions influencing health status documented in this encounter [facility] note* Diagnosis Stricture of male urethra, unspecified stricture type- Primary Urinary urgency Urgency of urination Low bladder compliance Urinary frequency documented in this encounter [facility] note* Diagnosis Pre-op evaluation- Primary Preoperative examination, unspecified Coronary artery disease involving [place] coronary artery of [place] heart without angina pectoris Mixed hyperlipidemia Essential [...] Last OV 06/11/2023 [facility] Dys[facility]- [facility] Urinary retention- Primary Retention of urine, unspecified [facility] Diagnosis Other specified pre-operative examination- Primary Primary osteoarthritis of right knee Primary localized osteoarthrosis, lower leg Essential hypertension Unspecified essential hypertension Hyperlipidemia, unspecified hyperlipidemia type Coronary artery disease involving [place] coronary artery of [place] heart without angina pectoris Pre-op evaluation- Primary Preoperative examination, unspecified Rotator cuff tear arthropathy of right shoulder Traumatic arthropathy, shoulder region Essential hypertension Unspecified essential hypertension Coronary artery disease involving [place] coronary artery of [place] heart without angina pectoris Obesity, Class I, BMI 30-34.9 Obesity, unspecified Urge incontinence Left shoulder pain, unspecified chronicity Pre-op evaluation- Primary Preoperative examination, unspecified Coronary artery disease involving [place] coronary artery of [place] heart without angina pectoris Mixed hyperlipidemia Essential hypertension Unspecified essential hypertension Urge incontinence Cervical spondylosis with myelopathy Obesity, Class I, BMI 30-34.9 Obesity, unspecified [facility] Diagnosis Other specified pre-operative examination- Primary Primary osteoarthritis of right knee Primary localized osteoarthrosis, lower leg Essential hypertension Unspecified essential hypertension Hyperlipidemia, unspecified hyperlipidemia type Coronary artery disease involving [place] coronary artery of [place] heart without angina pectoris Pre-op evaluation- Primary Preoperative examination, unspecified Rotator cuff tear arthropathy of right shoulder Traumatic arthropathy, shoulder region Essential hypertension Unspecified essential hypertension Coronary artery disease involving [place] coronary artery of [place] heart without angina pectoris Obesity, Class I, BMI 30-34.9 Obesity, unspecified Urge incontinence S/P reverse total shoulder arthroplasty, right Pre-op evaluation- Primary Preoperative examination, unspecified Coronary artery disease involving [place] coronary artery of [place] heart without angina pectoris Mixed hyperlipidemia Essential hypertension Unspecified essential hypertension Urge incontinence Cervical spondylosis with myelopathy Obesity, Class I, BMI 30-34.9 Obesity, unspecified documented in this encounter [facility] note* Diagnosis Other specified pre-operative examination- Primary Primary osteoarthritis of right knee Primary localized osteoarthrosis, lower leg Essential hypertension Unspecified essential hypertension Hyperlipidemia, unspecified hyperlipidemia type Coronary artery disease involving [place] coronary artery of [place] heart without angina pectoris Pre-op evaluation- Primary Preoperative examination, unspecified Rotator cuff tear arthropathy of right shoulder Traumatic arthropathy, shoulder region Essential hypertension Unspecified essential hypertension Coronary artery disease involving [place] coronary artery of [place] heart without angina pectoris Obesity, Class I, BMI 30-34.9 Obesity, unspecified Urge incontinence Chronic knee pain after total replacement of right knee joint Pre-op evaluation- Primary Preoperative examination, unspecified Coronary artery disease involving [place] coronary artery of [place] heart without angina pectoris Mixed hyperlipidemia Essential hypertension Unspecified essential hypertension Urge incontinence Cervical spondylosis with myelopathy Obesity, Class I, BMI 30-34.9 Obesity, unspecified [facility] Diagnosis Other specified pre-operative examination- Primary Primary osteoarthritis of right knee Primary localized osteoarthrosis, lower leg Essential hypertension Unspecified essential hypertension Hyperlipidemia, unspecified hyperlipidemia type Coronary artery disease involving [place] coronary artery of [place] heart without angina pectoris Pre-op evaluation- Primary Preoperative examination, unspecified Rotator cuff tear arthropathy of right shoulder Traumatic arthropathy, shoulder region Essential hypertension Unspecified essential hypertension Coronary artery disease involving [place] coronary artery of [place] heart without angina pectoris Obesity, Class I, BMI 30-34.9 Obesity, unspecified Urge incontinence Nontraumatic complete tear of right rotator cuff Pre-op evaluation- Primary Preoperative examination, unspecified Coronary artery disease involving [place] coronary artery of [place] heart without angina pectoris Mixed hyperlipidemia Essential hypertension Unspecified essential hypertension Urge incontinence Cervical spondylosis with myelopathy Obesity, Class I, BMI 30-34.9 Obesity, unspecified [facility] Diagnosis Other specified pre-operative examination- Primary Primary osteoarthritis of right knee Primary localized osteoarthrosis, lower leg Essential hypertension Unspecified essential hypertension Hyperlipidemia, unspecified hyperlipidemia type Coronary artery disease involving [place] coronary artery of [place] heart without angina pectoris Right shoulder pain, unspecified chronicity Pre-op evaluation- Primary Preoperative examination, unspecified Rotator cuff tear arthropathy of right shoulder Traumatic arthropathy, shoulder region Essential hypertension Unspecified essential hypertension Coronary artery disease involving [place] coronary artery of [place] heart without angina pectoris Obesity, Class I, BMI 30-34.9 Obesity, unspecified Urge incontinence Pre-op evaluation- Primary Preoperative examination, unspecified Coronary artery disease involving [place] coronary artery of [place] heart without angina pectoris Mixed hyperlipidemia Essential hypertension Unspecified essential hypertension Urge incontinence Cervical spondylosis with myelopathy Obesity, Class I, BMI 30-34.9 Obesity, unspecified [facility] Diagnosis Other specified pre-operative examination- Primary Primary osteoarthritis of right knee Primary localized osteoarthrosis, lower leg Essential hypertension Unspecified essential hypertension Hyperlipidemia, unspecified hyperlipidemia type Coronary artery disease involving [place] coronary artery of [place] heart without angina pectoris Nontraumatic tear of right rotator cuff, unspecified tear extent Acute pain of right shoulder Pre-op evaluation- Primary Preoperative examination, unspecified Rotator cuff tear arthropathy of right shoulder Traumatic arthropathy, shoulder region Essential hypertension Unspecified essential hypertension Coronary artery disease involving [place] coronary artery of [place] heart without angina pectoris Obesity, Class I, BMI 30-34.9 Obesity, unspecified Urge incontinence Pre-op evaluation- Primary Preoperative examination, unspecified Coronary artery disease involving [place] coronary artery of [place] heart without angina pectoris Mixed hyperlipidemia Essential hypertension Unspecified essential hypertension Urge incontinence Cervical spondylosis with myelopathy Obesity, Class I, BMI 30-34.9 Obesity, unspecified [facility] Diagnosis Other specified pre-operative examination- Primary Primary osteoarthritis of right knee Primary localized osteoarthrosis, lower leg Essential hypertension Unspecified essential hypertension Hyperlipidemia, unspecified hyperlipidemia type Coronary artery disease involving [place] coronary artery of [place] heart without angina pectoris Pain in right hip Pain in joint, pelvic region and thigh Pre-op evaluation- Primary Preoperative examination, unspecified Rotator cuff tear arthropathy of right shoulder Traumatic arthropathy, shoulder region Essential hypertension Unspecified essential hypertension Coronary artery disease involving [place] coronary artery of [place] heart without angina pectoris Obesity, Class I, BMI 30-34.9 Obesity, unspecified Urge incontinence Pre-op evaluation- Primary Preoperative examination, unspecified Coronary artery disease involving [place] coronary artery of [place] heart without angina pectoris Mixed hyperlipidemia Essential hypertension Unspecified essential hypertension Urge incontinence Cervical spondylosis with myelopathy Obesity, Class I, BMI 30-34.9 Obesity, unspecified [facility] Diagnosis Other specified pre-operative examination- Primary Primary osteoarthritis of right knee Primary localized osteoarthrosis, lower leg Essential hypertension Unspecified essential hypertension Hyperlipidemia, unspecified hyperlipidemia type Coronary artery disease involving [place] coronary artery of [place] heart without angina pectoris Pre-op evaluation- Primary Preoperative examination, unspecified Rotator cuff tear arthropathy of right shoulder Traumatic arthropathy, shoulder region Essential hypertension Unspecified essential hypertension Coronary artery disease involving [place] coronary artery of [place] heart without angina pectoris Obesity, Class I, BMI 30-34.9 Obesity, unspecified Urge incontinence Pre-op evaluation- Primary Preoperative examination, unspecified Coronary artery disease involving [place] coronary artery of [place] heart without angina pectoris Mixed hyperlipidemia Essential [...] influencing health status [facility] Diagnosis Other specified pre-operative examination- Primary Primary osteoarthritis of right knee Primary localized osteoarthrosis, lower leg Essential hypertension Unspecified essential hypertension Hyperlipidemia, unspecified hyperlipidemia type Coronary artery disease involving [place] coronary artery of [place] heart without angina pectoris Pre-op evaluation- Primary Preoperative examination, unspecified Rotator cuff tear arthropathy of right shoulder Traumatic arthropathy, shoulder region Essential hypertension Unspecified essential hypertension Coronary artery disease involving [place] coronary artery of [place] heart without angina pectoris Obesity, Class I, BMI 30-34.9 Obesity, unspecified Urge incontinence Pre-op evaluation- Primary Preoperative examination, unspecified Coronary artery disease involving [place] coronary artery of [place] heart without angina pectoris Mixed hyperlipidemia Essential hypertension Unspecified essential hypertension Urge incontinence Cervical spondylosis with myelopathy Obesity, Class I, BMI 30-34.9 Obesity, unspecified Urinary frequency- Primary Urgency of urination Incomplete bladder emptying [facility] Diagnosis Chronic idiopathic constipation- Primary Unspecified constipation 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 Excessive sweating Generalized hyperhidrosis documented in this encounter [facility]* Diagnosis Routine general medical examination at health care facility- Primary Routine general medical examination at a health care facility ACP (advance care planning) Other specified counseling Atherosclerosis of [place] coronary artery of [place] heart without angina pectoris (CMS/HCC) Benign essential [...] specified, unspecified location documented in this encounter [facility]* Diagnosis Other specified pre-operative examination- Primary Primary osteoarthritis of right knee Primary localized osteoarthrosis, lower leg Essential hypertension Unspecified essential hypertension Hyperlipidemia, unspecified hyperlipidemia type Coronary artery disease involving [place] coronary artery of [place] heart without angina pectoris Pre-op evaluation- Primary Preoperative examination, unspecified Rotator cuff tear arthropathy of right shoulder Traumatic arthropathy, shoulder region Essential hypertension Unspecified essential hypertension Coronary artery disease involving [place] coronary artery of [place] heart without angina pectoris Obesity, Class I, BMI 30-34.9 Obesity, unspecified Urge incontinence Pre-op evaluation- Primary Preoperative examination, unspecified Coronary artery disease involving [place] coronary artery of [place] heart without angina pectoris Mixed hyperlipidemia Essential hypertension Unspecified essential hypertension Urge incontinence Cervical spondylosis with myelopathy Obesity, Class I, BMI 30-34.9 Obesity, unspecified Inguinal hernia without obstruction or gangrene, recurrence not specified, unspecified laterality- Primary Overactive bladder Hypertonicity of bladder Incomplete bladder emptying [facility] Diagnosis Benign essential hypertension (CMS/HCC)- Primary Essential hypertension, benign Pulmonary granuloma of histoplasmosis (HCC) (CMS/HCC) Dyslipidemia (CMS/HCC) Other and unspecified hyperlipidemia Allergic rhinitis, unspecified seasonality, unspecified trigger documented in this encounter [facility]* Diagnosis Chronic idiopathic constipation- Primary Unspecified constipation documented [facility] encounter [facility]* Diagnosis Other specified pre-operative examination- Primary Primary osteoarthritis of right knee Primary localized osteoarthrosis, lower leg Essential hypertension Unspecified essential hypertension Hyperlipidemia, unspecified hyperlipidemia type Coronary artery disease involving [place] coronary artery of [place] heart without angina pectoris Pre-op evaluation- Primary Preoperative examination, unspecified Rotator cuff tear arthropathy of right shoulder Traumatic arthropathy, shoulder region Essential hypertension Unspecified essential hypertension Coronary artery disease involving [place] coronary artery of [place] heart without angina pectoris Obesity, Class I, BMI 30-34.9 Obesity, unspecified Urge incontinence Pre-op evaluation- Primary Preoperative examination, unspecified Coronary artery disease involving [place] coronary artery of [place] heart without angina pectoris Mixed hyperlipidemia Essential hypertension Unspecified essential hypertension Urge incontinence Cervical spondylosis with myelopathy Obesity, Class I, BMI 30-34.9 Obesity, unspecified Unilateral groin pain- Primary Abdominal pain, unspecified site [facility] Constipation, unspecified constipation type- Primary Chronic obstructive pulmonary disease, unspecified (CMS/HCC) documented in this encounter [facility]* Diagnosis Other specified pre-operative examination- Primary Primary osteoarthritis of right knee Primary localized osteoarthrosis, lower leg Essential hypertension Unspecified essential hypertension Hyperlipidemia, unspecified hyperlipidemia type Coronary artery disease involving [place] coronary artery of [place] heart without angina pectoris Pre-op evaluation- Primary Preoperative examination, unspecified Rotator cuff tear arthropathy of right shoulder Traumatic arthropathy, shoulder region Essential hypertension Unspecified essential hypertension Coronary artery disease involving [place] coronary artery of [place] heart without angina pectoris Obesity, Class I, BMI 30-34.9 Obesity, unspecified Urge incontinence Pre-op evaluation- Primary Preoperative examination, unspecified Coronary artery disease involving [place] coronary artery of [place] heart without angina pectoris Mixed hyperlipidemia Essential hypertension Unspecified essential hypertension Urge incontinence Cervical spondylosis with myelopathy Obesity, Class I, BMI 30-34.9 Obesity, unspecified Obstructive defecation (HCC)- Primary High-tone pelvic floor dysfunction Other specified disorders of female genital organs Constipation due to outlet dysfunction Right shoulder pain, unspecified chronicity- Primary [facility] Diagnosis Other specified pre-operative examination- Primary Primary osteoarthritis of right knee Primary localized osteoarthrosis, lower leg Essential hypertension Unspecified essential hypertension Hyperlipidemia, unspecified hyperlipidemia type Coronary artery disease involving [place] coronary artery of [place] heart without angina pectoris Pre-op evaluation- Primary Preoperative examination, unspecified Rotator cuff tear arthropathy of right shoulder Traumatic arthropathy, shoulder region Essential hypertension Unspecified essential hypertension Coronary artery disease involving [place] coronary artery of [place] heart without angina pectoris Obesity, Class I, BMI 30-34.9 Obesity, unspecified Urge incontinence Pre-op evaluation- Primary Preoperative examination, unspecified Coronary artery disease involving [place] coronary artery of [place] heart without angina pectoris Mixed hyperlipidemia Essential hypertension Unspecified essential hypertension Urge incontinence Cervical spondylosis with myelopathy Obesity, Class I, BMI 30-34.9 Obesity, unspecified Constipation due to outlet dysfunction- Primary Right shoulder pain, unspecified chronicity- Primary documented in this encounter [facility] note* Diagnosis Other specified pre-operative examination- Primary Primary osteoarthritis of right knee Primary localized osteoarthrosis, lower leg Essential hypertension Unspecified essential hypertension Hyperlipidemia, unspecified hyperlipidemia type Coronary artery disease involving [place] coronary artery of [place] heart without angina pectoris Pre-op evaluation- Primary Preoperative examination, unspecified Rotator cuff tear arthropathy of right shoulder Traumatic arthropathy, shoulder region Essential hypertension Unspecified essential hypertension Coronary artery disease involving [place] coronary artery of [place] heart without angina pectoris Obesity, Class I, BMI 30-34.9 Obesity, unspecified Urge incontinence Pre-op evaluation- Primary Preoperative examination, unspecified Coronary artery disease involving [place] coronary artery of [place] heart without angina pectoris Mixed hyperlipidemia Essential hypertension Unspecified essential hypertension Urge incontinence Cervical spondylosis with myelopathy Obesity, Class I, BMI 30-34.9 Obesity, unspecified Right shoulder pain, unspecified chronicity- Primary Closed nondisplaced fracture of acromial end of right clavicle, initial encounter Right shoulder pain, unspecified chronicity [facility] Diagnosis Other specified pre-operative examination- Primary Primary osteoarthritis of right knee Primary localized osteoarthrosis, lower leg Essential hypertension Unspecified essential hypertension Hyperlipidemia, unspecified hyperlipidemia type Coronary artery disease involving [place] coronary artery of [place] heart without angina pectoris Pre-op evaluation- Primary Preoperative examination, unspecified Rotator cuff tear arthropathy of right shoulder Traumatic arthropathy, shoulder region Essential hypertension Unspecified essential hypertension Coronary artery disease involving [place] coronary artery of [place] heart without angina pectoris Obesity, Class I, BMI 30-34.9 Obesity, unspecified Urge incontinence Pre-op evaluation- Primary Preoperative examination, unspecified Coronary artery disease involving [place] coronary artery of [place] heart without angina pectoris Mixed hyperlipidemia Essential hypertension Unspecified essential hypertension Urge incontinence Cervical spondylosis with myelopathy Obesity, Class I, BMI 30-34.9 Obesity, unspecified Right shoulder pain, unspecified chronicity [facility] Diagnosis Other specified pre-operative examination- Primary Primary osteoarthritis of right knee Primary localized osteoarthrosis, lower leg Essential hypertension Unspecified essential hypertension Hyperlipidemia, unspecified hyperlipidemia type Coronary artery disease involving [place] coronary artery of [place] heart without angina pectoris Pre-op evaluation- Primary Preoperative examination, unspecified Rotator cuff tear arthropathy of right shoulder Traumatic arthropathy, shoulder region Essential hypertension Unspecified essential hypertension Coronary artery disease involving [place] coronary artery of [place] heart without angina pectoris Obesity, Class I, BMI 30-34.9 Obesity, unspecified Urge incontinence Pre-op evaluation- Primary Preoperative examination, unspecified Coronary artery disease involving [place] coronary artery of [place] heart without angina pectoris Mixed hyperlipidemia Essential hypertension Unspecified essential hypertension Urge incontinence Cervical spondylosis with myelopathy Obesity, Class I, BMI 30-34.9 Obesity, unspecified Closed nondisplaced fracture of acromial end of right clavicle, initial encounter [facility] Diagnosis Left-sided chest pain- Primary 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 Chronic ischemic heart disease Unspecified chronic ischemic heart disease [facility] Left-sided chest pain- Primary 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 documented in this encounter [facility]* Diagnosis Other specified pre-operative examination- Primary Primary osteoarthritis of right knee Primary localized osteoarthrosis, lower leg Essential hypertension Unspecified essential hypertension Hyperlipidemia, unspecified hyperlipidemia type Coronary artery disease involving [place] coronary artery of [place] heart without angina pectoris Pre-op evaluation- Primary Preoperative examination, unspecified Rotator cuff tear arthropathy of right shoulder Traumatic arthropathy, shoulder region Essential hypertension Unspecified essential hypertension Coronary artery disease involving [place] coronary artery of [place] heart without angina pectoris Obesity, Class I, BMI 30-34.9 Obesity, unspecified Urge incontinence Pre-op evaluation- Primary Preoperative examination, unspecified Coronary artery disease involving [place] coronary artery of [place] heart without angina pectoris Mixed hyperlipidemia Essential [...] subsequent encounter- Primary [facility] Diagnosis Other specified pre-operative examination- Primary Primary osteoarthritis of right knee Primary localized osteoarthrosis, lower leg Essential hypertension Unspecified essential hypertension Hyperlipidemia, unspecified hyperlipidemia type Coronary artery disease involving [place] coronary artery of [place] heart without angina pectoris Pre-op evaluation- Primary Preoperative examination, unspecified Rotator cuff tear arthropathy of right shoulder Traumatic arthropathy, shoulder region Essential hypertension Unspecified essential hypertension Coronary artery disease involving [place] coronary artery of [place] heart without angina pectoris Obesity, Class I, BMI 30-34.9 Obesity, unspecified Urge incontinence Pre-op evaluation- Primary Preoperative examination, unspecified Coronary artery disease involving [place] coronary artery of [place] heart without angina pectoris Mixed hyperlipidemia Essential hypertension Unspecified essential hypertension Urge incontinence Cervical spondylosis with myelopathy Obesity, Class I, BMI 30-34.9 Obesity, unspecified Closed nondisplaced fracture of acromial end of right clavicle with routine healing, subsequent encounter- Primary Closed nondisplaced fracture of acromial end of right clavicle with routine healing, subsequent encounter documented [facility] this encounter [facility] Diagnosis Other specified pre-operative examination- Primary Primary osteoarthritis of right knee Primary localized osteoarthrosis, lower leg Essential hypertension Unspecified essential hypertension Hyperlipidemia, unspecified hyperlipidemia type Coronary artery disease involving [place] coronary artery of [place] heart without angina pectoris Pre-op evaluation- Primary Preoperative examination, unspecified Rotator cuff tear arthropathy of right shoulder Traumatic arthropathy, shoulder region Essential hypertension Unspecified essential hypertension Coronary artery disease involving [place] coronary artery of [place] heart without angina pectoris Obesity, Class I, BMI 30-34.9 Obesity, unspecified Urge incontinence Pre-op evaluation- Primary Preoperative examination, unspecified Coronary artery disease involving [place] coronary artery of [place] heart without angina pectoris Mixed hyperlipidemia Essential hypertension Unspecified essential hypertension Urge incontinence Cervical spondylosis with myelopathy Obesity, Class I, BMI 30-34.9 Obesity, unspecified Closed nondisplaced fracture of acromial end of right clavicle with routine healing, subsequent encounter documented [facility] this [facility] Diagnosis Chronic idiopathic constipation- Primary Unspecified constipation [facility] Narrative No data available for this section [facility] Discharge instructions No data available for this section [facility] Discharge instructionsAdditional Instructions DISCHARGE INSTRUCTIONS FOR COLONOSCOPY WHAT TO EXPECT: - You may feel full, gassy or cramping after your procedure. In some cases, this may be from a few hours to a day. Walking may help relieve the discomfort. - If you have polyp(s) removed you may note some minor bloody discharge after your first bowel movements. - You should begin to recover from anesthesia within 1 hour of the procedure, however may feel groggy for the next 24 hours. DO's AND DON'Ts: - Call your doctor right away if you have a hard abdomen, severe pain, are passing lots of bright red blood or clots. - Call your doctor if you develop any rashes, hives or difficulty breathing. - Let your doctor know if you have not had a bowel movement by 3 days after your procedure. - If you take 81 mg aspirin for your heart it is safe to resume this medication. - If you take other blood thinner medications your doctor will instruct you when these can safely be resumed. - Do NOT drive for 24 hours. - Do NOT operate machinery such as power tools, lawn mowers, snow blowers, sewing machines, etc. for 24 hours. - Avoid alcoholic beverages and drugs for allergies, nerves, or sleep. - Do NOT stay alone. Do NOT leave your child unattended. - Do NOT make important personal or business decisions or sign any legal documents. - Eat solid foods and drink liquids in smaller amounts than usual until normal appetite returns. If you should experience an upset stomach, liquids high in sugar content (soda, Mickey-Aid, non-acid juices) are recommended. - You can resume normal activities tomorrow. FOLLOW UP & RECOMMENDATIONS: -Please call the office and make a follow up appointment to see me in 3 months if you do not have an appointment scheduled. -Notify the doctor if you have any problems. -Repeat colonoscopy in 5 years. -Follow up with PCP. -Office number [phone]. [facility] Work Phone: Progress note No data available for this section [facility] Reason for referral (narrative)* Diagnostic Procedure Only (Routine) - Pending ReviewSpecialtyDiagnoses / ProceduresReferred By ContactReferred To ContactXR IMAGING Diagnoses Nontraumatic complete tear of right rotator cuff Procedures XR SHOULDER GENERAL 3V OR MORE AP/TRUE AP/OTHER RIGHT RADEX SHOULDER COMPLETE MINIMUM 2 VIEWS Nehemiah Gilbert PA-C [address] [place] [address] Xr Imaging Referral IDStatusReasonStart DateExpiration DateVisits RequestedVisits [id number] Review Auto-Generated Referral / [facility] for referral (narrative)* - Pending ReviewSpecialty Diagnoses / ProceduresReferred By ContactReferred To ContactPhysical Therapy Diagnoses S/P reverse total shoulder arthroplasty, right Procedures CONSULT TO PHYSICAL THERAPY Nehemiah Gilbert PA-C [address] [place] [address] Referral IDStatusReasonStart DateExpiration DateVisits RequestedVisits [id number] Review/ [facility] for referral (narrative)* Diagnostic Procedure Only (Routine) - ClosedSpecialtyDiagnoses / ProceduresReferred By ContactReferred To ContactXR IMAGING Diagnoses S/P reverse total shoulder arthroplasty, right Procedures XR SHOULDER GENERAL 3V OR MORE AP/TRUE AP/OTHER RIGHT RADEX SHOULDER COMPLETE MINIMUM 2 VIEWS Nehemiah Gilbert PA-C [address] [place] [address] Xr Imaging Referral IDStatusReasonStart DateExpiration DateVisits RequestedVisits [id number] Auto-Generated Referral [facility] for referral (narrative)* Diagnostic Procedure Only (Routine) - ClosedSpecialtyDiagnoses / ProceduresReferred By ContactReferred To ContactXR IMAGING Diagnoses Chronic knee pain after total replacement of right knee joint Procedures XR KNEE POST OP 3V AP/LAT/MERCHANT RIGHT RADIOLOGIC EXAMINATION KNEE 3 VIEWS Kev Ferrell MD [address] [place] [address] Xr Imaging Referral IDStatusReasonStart DateExpiration DateVisits RequestedVisits [id number] Auto-Generated Referral [facility] for referral (narrative)* Diagnostic Procedure Only (Routine) - ClosedSpecialtyDiagnoses / ProceduresReferred By ContactReferred To ContactXR IMAGING Diagnoses Left shoulder pain, unspecified chronicity Procedures XR SHOULDER ORTHO 4V AP/TRUE AP/LAT/OUTLET LEFT RADEX SHOULDER COMPLETE MINIMUM 2 VIEWS Nehemiah Gilbert PA-C [address] [place] [address] Xr Imaging Referral IDStatusReasonStart DateExpiration DateVisits RequestedVisits [id number] Auto-Generated Referral Patient Cleared - Admin/Button Buttonhole Marker/Director advise to proceed / [facility] for referral (narrative)* Diagnostic Procedure Only (Routine) - ClosedSpecialtyDiagnoses / ProceduresReferred By ContactReferred To ContactCT IMAGING Diagnoses History of lumbar fusion Chronic midline low back pain, unspecified whether sciatica present Radiculopathy of lumbar region Procedures CT LUMBAR SPINE WO IVCON CT SCAN LUMBAR SPINE Himanshu Barba MD [address] [place] [address] Ct Imaging Ref[facility]Status[facility] DateExpiration DateVisits RequestedVisits [id number] Auto-Generated Referral / T [facility] for referral (narrative)* Diagnostic Procedure Only (Routine) - Pending ReviewSpecialtyDiagnoses / ProceduresReferred By Contact Referred To ContactUS IMAGING Diagnoses Stricture of male urethra, unspecified stricture type Urinary urgency Procedures US KIDNEY/BLADDER US RETROPERITONEAL REAL TIME W/IMAGE COMPLETE Louie Salomon MD [address] [place] [address] Us Imaging [place] [address] Referral IDStatusReasonStfairfax DateExpiration DateVisits RequestedVisits [id number] Review Auto-Generated Referral / [facility] for referral (narrative)* Diagnostic Procedure Only (Routine) - ClosedSpecialtyDiagnoses / ProceduresReferred By ContactReferred To ContactXR IMAGING Diagnoses Left shoulder pain, unspecified chronicity Procedures XR SHOULDER ORTHO 4V AP/TRUE AP/LAT/OUTLET LEFT RADEX SHOULDER COMPLETE MINIMUM 2 VIEWS Nehemiah Gilbert PA-C [address] [place] [address] [place] [address] Referral IDStatusReasonStfairfax DateExpiration DateVisits RequestedVisits [id number] Auto-Generated Referral Patient Cleared - Admin/Button Buttonhole Marker/Director advise to proceed or did not respond / [facility] for referral (narrative)* Diagnostic Procedure Only (Routine) - ClosedSpecialtyDiagnoses / ProceduresReferred By ContactReferred To ContactXR IMAGING Diagnoses S/P reverse total shoulder arthroplasty, right Procedures XR SHOULDER GENERAL 3V OR MORE AP/TRUE AP/OTHER RIGHT RADEX SHOULDER COMPLETE MINIMUM 2 VIEWS Nehemiah Gilbert PA-C [address] [place] [address] [place] [address] Referral IDStatusReasonStart DateExpiration DateVisits RequestedVisits [id number] Auto-Generated Referral / [facility] for referral (narrative)* Diagnostic Procedure Only (Routine) - ClosedSpecialtyDiagnoses / ProceduresReferred By ContactReferred To ContactXR IMAGING Diagnoses Chronic knee pain after total replacement of right knee joint Procedures XR KNEE POST OP 3V AP/LAT/MERCHANT RIGHT RADIOLOGIC EXAMINATION KNEE 3 VIEWS Kev Ferrell MD [address] [place] [address] [place] [address] Referral IDStatusReasonStart DateExpiration DateVisits RequestedVisits [id number] Auto-Generated Referral / [facility] for referral (narrative)* Diagnostic Procedure Only (Routine) - ClosedSpecialtyDiagnoses / ProceduresReferred By ContactReferred To ContactXR IMAGING Diagnoses Nontraumatic complete tear of right rotator cuff Procedures XR SHOULDER GENERAL 3V OR MORE AP/TRUE AP/OTHER RIGHT RADEX SHOULDER COMPLETE MINIMUM 2 VIEWS Nehemiah Gilbert PA-C [address] [facility] [place] [address] [place] [address] Referral IDStatusReasonStart DateExpiration DateVisits RequestedVisits [id number] Auto-Generated Referral / [facility] for referral (narrative)* Diagnostic Procedure Only (Routine) - ClosedSpecialtyDiagnoses / ProceduresReferred By ContactReferred To ContactXR IMAGING Diagnoses Right shoulder pain, unspecified chronicity Procedures XR SHOULDER ORTHO 4V AP/TRUE AP/LAT/OUTLET RT X-RAY SHOULDER COMPLET MIN 2 VIEWS Nehemiah Gilbert PA-C [address] [facility] [place] [address] [place] [address] Referral IDStatusReasonStart DateExpiration DateVisits RequestedVisits [id number] Auto-Generated Referral / [facility] for referral (narrative)* Diagnostic Procedure Only (Routine) - ClosedSpecialtyDiagnoses / ProceduresReferred By ContactReferred To ContactMR IMAGING Diagnoses Nontraumatic tear of right rotator cuff, unspecified tear extent Acute pain of right shoulder Procedures MRI SHOULDER WO IVCON RT MRI, JOINT UPPER EXTREM Stanton Kirkland PA-C [address] [place] [address] [place] [address] Referral IDStatusReasonStart DateExpiration DateVisits RequestedVisits [id number] Auto-Generated Referral / [facility] for referral (narrative)* Outpatient Procedure (Routine) - New RequestSpecialtyDiagnoses / ProceduresReferred By ContactReferred To [facility] Diagnoses Overactive bladder Incomplete bladder emptying Procedures PERIPHERAL NERVE EVALUATION (PNE) PRQ IMPLTJ NEUROSTIM ELTRD SACRAL NRVE W/IMAGING Fady Dye MD [address] [place] [address] [place] [address] Ref[facility]Status[facility] DateExpiration DateVisits RequestedVisits [id number] Request Auto-Generated Referral * Consult, Test, Treat (Routine) - AuthorizedSpecialtyDiagnoses / Procedures Referred By [facility]Referred To [facility]oses Inguinal hernia without obstruction or gangrene, recurrence not specified, unspecified laterality Procedures CONSULT TO GENERAL SURGERY OFFICE/OUTPATIENT NEW HIGH MDM 60 MINUTES Fady Dye MD [address] [place] [address] Referral IDStatus[facility] DateExpiration DateVisits RequestedVisits [id number] PCP Requested Referral [facility] for referral (narrative)No reason for referral information availablePrem[facility] Work Phone: Reason for visit Narrative* Diagnostic Procedure Only (Routine) - ClosedSpecialtyDiagnoses / ProceduresReferred By ContactReferred To ContactCT IMAGING Diagnoses History of lumbar fusion Chronic midline low back pain, unspecified whether sciatica present Radiculopathy of lumbar region Procedures CT LUMBAR SPINE WO IVCON CT SCAN LUMBAR SPINE Himanshu Barba MD [address] [facility] [place] [address] Ct Imaging Referral IDStatusReasonStfairfax DateExpiration DateVisits RequestedVisits [id number] Auto-Generated Referral / [facility] for visit Narrative* Diagnostic Procedure Only (Routine) - ClosedSpecialtyDiagnoses / ProceduresReferred By ContactReferred To Contact XR IMAGING Diagnoses Chronic knee pain after total replacement of right knee joint Procedures XR KNEE POST OP 3V AP/LAT/MERCHANT RIGHT RADIOLOGIC EXAMINATION KNEE 3 VIEWS Kev Ferrell MD [address] [place] [address] [place] [address] Referral IDStatusReasonStfairfax DateExpiration DateVisits RequestedVisits [id number] Auto-Generated Referral / [facility] for visit Narrative* Diagnostic Procedure Only (Routine) - ClosedSpecialtyDiagnoses / ProceduresReferred By ContactReferred To Contact XR IMAGING Diagnoses Nontraumatic complete tear of right rotator cuff Procedures XR SHOULDER GENERAL 3V OR MORE AP/TRUE AP/OTHER RIGHT RADEX SHOULDER COMPLETE MINIMUM 2 VIEWS Nehemiah Gilbert PA-C [address] [place] [address] [place] [address] Referral IDStatusReasonStfairfax DateExpiration DateVisits RequestedVisits [id number] Auto-Generated Referral / [facility] for visit Narrative* Diagnostic Procedure Only (Routine) - ClosedSpecialtyDiagnoses / ProceduresReferred By ContactReferred To Contact MR IMAGING Diagnoses Nontraumatic tear of right rotator cuff, unspecified tear extent Acute pain of right shoulder Procedures MRI SHOULDER WO IVCON RT MRI, JOINT UPPER EXTREM Stanton Kirkland PA-C [address] [place] [address] [place] [address] Referral IDStatusReasonStart DateExpiration DateVisits RequestedVisits [id number] Auto-Generated Referral / [facility] for visit Narrative* Diagnostic Procedure Only (Routine) - ClosedSpecialtyDiagnoses / ProceduresReferred By ContactReferred To Contact XR IMAGING Diagnoses Right shoulder pain, unspecified chronicity Procedures XR SHOULDER ORTHO 4V AP/TRUE AP/LAT/OUTLET RIGHT RADEX SHOULDER COMPLETE MINIMUM 2 VIEWS Kev Ferrell MD [address] [place] [address] Phone: tel: fax: XR IMAGING [place] [address] Referral IDStatusReasonByron DateExpiration DateVisits RequestedVisits [id number] Auto-Generated Referral / [facility] for visit Narrative* Diagnostic Procedure Only (Routine) - ClosedSpecialtyDiagnoses / ProceduresReferred By ContactReferred To Contact XR IMAGING Diagnoses Closed nondisplaced fracture of acromial end of right clavicle with routine healing, subsequent encounter Procedures XR CLAVICLE 2V RIGHT RADEX CLAVICLE COMPLETE Nehemiah Gilbert PA-C [address] [place] [address] Phone: tel: fax: XR IMAGING [id number] Referral IDStatusReasonByron DateExpiration DateVisits RequestedVisits [id number] Auto-Generated Referral [facility] Summary Purpose Family History Relationship Condition Age at Onset Recorded Date/T gallito mother Hypertension Unknown brotherHypertensionUnknownsisterDiabetes mellitusUnknown Advance Directives TypeDate RecordedPatient RepresentativeExplanationAdvance Directive(s)05/02/2021 6:09 AMAdvance Directive(s)04/01/2021 11:56 AMAdvance Directive(s)12/19/2019 6:45 AMAdvance Directive(s)11/14/2019 11:15 AMAdvance Directive(s)01/08/2019 6:39 AM Advance Directive(s)10/30/2018 9:59 AMAdvance Directive(s)07/20/2017 8:56 AMAdvance Directive(s)07/06/2017 8:04 AMAdvance Directive(s)05/23/2017 11:02 AMAdvance Directive(s)05/23/2017 1:08 PMAdvance Directive(s)05/23/2017 1:09 PMTypeDate RecordedPatient RepresentativeExplanationAdvance Directive(s)05/02/2021 6:09 AM Advance Directive(s)04/01/2021 11:56 AMAdvance Directive(s)12/19/2019 6:45 AM Advance Directive(s)11/14/2019 11:15 AMAdvance Directive(s)01/08/2019 6:39 AM Advance Directive(s)10/30/2018 9:59 AMAdvance Directive(s)07/20/2017 8:56 AMAdvance Directive(s)07/06/2017 8:04 AMAdvance Directive(s)05/23/2017 11:02 AMAdvance Directive(s)05/23/2017 1:08 PMAdvance Directive(s)05/23/2017 1:09 PM Advance Directive Response Recorded Date/ Time Advance Directives No October 11:57am TypeDate RecordedPatient RepresentativeExplanationAdvance Directive(s)05/23/2017 1:09 PMTypeDate RecordedPatient RepresentativeExplanationAdvance Directive(s) 05/23/2017 1:09 PM Advance Directive Response Recorded Date/ Time Advance Directives No October 10:57am Medications Administered Section Medication OrderMAR ActionAction DateDoseRateSite cephALEXin 500 mg cap(s) (KEFLEX) 500 mg, ORAL, ONCE, 1 dose, On Sun05/30/22 at 2029, Please document the antimicrobial indication: Prophylaxis Given05/31/2022 2:05 PM JCL975 mg lidocaine urojet 2 % 11 mL topical gel (GLYDO) 11 mL, URETHRAL, ONCE, 1 dose, On Sun05/30/22 at 2029 Given05/31/2022 2:07 PM EDT11 mL Reason for Referral SpecialtyDiagnoses / ProceduresReferred By ContactReferred To ContactCT IMAGING Diagnoses Nontraumatic complete tear of right rotator cuff Rotator cuff arthropathy of right shoulder Arthritis of shoulder Procedures CT SHOULDER WO IVCON RT CT SCAN OF ARM Kev Ferrell MD [address] [facility] [place] [address] Ct Imaging Referral IDSShane DateExpiration DateVisits RequestedVisits [id number] Auto-Generated Referral Chief Complaint and Reason for Visit Chief Complaint Admit Date REF BY CHRISTINA HEMMER FOR CONSTIPATION Nov 10:13am Chief Complaint Admit Date REF BY CHRISTINA HEMMER FOR CONSTIPATION Nov 10:13am K59.0 R19.7 December 05, 2024 1 0:54am Reason for Visit Admit Date Change in bowel function November 14 10:13am Constipation November 14, 2024 10 :13am Chief Complaint Admit Date REF BY CHRISTINA HEMMER FOR CONSTIPATION Nov 10:13am K59.0 R19.7 December 05, 2024 1 0:54am constipation with overflow diarrhea Abbe lucio 2024 8:04am Additional Source Comments (unrecognized sect ion and content) No Status Records FoundNo Status Records FoundNo Status Records FoundNo Status Records FoundNo Status Records FoundNo Status Records FoundNo Status Records FoundNo Status Records FoundNo Status Records FoundNo Status Records Found INFORMATION SOURCE (unrecogn ized section and content) DATE CREATED AUTHOR 10/17/2019 [facility] DATE CREATED AUTHOR AUTHOR'S ORGANIZ ATION 05/05/2021 [facility] DATE CREATED AUTHOR AUTHOR'S ORGANIZ ATION 06/11/2022 [facility] DATE CREATED AUTHOR AUTHOR'S ORGANIZ ATION 02/23/2024 [facility] DATE CREATED AUTHOR AUTHOR'S ORGANIZ ATION 02/25/2024 [facility] DATE CREATED AUTHOR AUTHOR'S ORGANIZ ATION 07/01/2024 [facility] DATE CREATED AUTHOR AUTHOR'S ORGANIZ ATION 11/07/2024 [facility] DATE CREATED AUTHOR AUTHOR'S ORGANIZ ATION 11/27/2024 [facility] DATE CREATED AUTHOR AUTHOR'S ORGANIZ ATION 12/19/2024 [facility] DATE CREATED AUTHOR AUTHOR'S ORGANIZ ATION 12/24/2024 [facility] Source Comments (unrecognize d section and content) In the event this informatio n is protected by the Federal Confidentiality of Alcohol and Drug Abuse Patient Records regulations: The Federal rules restrict any use of the information to criminally investigate or prosecute any alcohol or drug abuse patient.[facility] the event this information is protected by the Federal Confidentiality of Alcohol and Drug Abuse Patient Records regulations: The Federal rules restrict any use of the information to criminally investigate or prosecute any alcohol or drug abuse patient.[facility] the event this information is protected by the Federal Confidentiality of Alcohol and Drug Abuse Patient Records regulations: The Federal rules restrict any use of the information to criminally investigate or prosecute any alcohol or drug abuse patient.[facility] the event this information is protected by the Federal Confidentiality of Alcohol and Drug Abuse Patient Records regulations: The Federal rules restrict any use of the information to criminally investigate or prosecute any alcohol or drug abuse patient.[facility] the event this information is protected by the Federal Confidentiality of Alcohol and Drug Abuse Patient Records regulations: The Federal rules restrict any use of the information to criminally investigate or prosecute any alcohol or drug abuse patient.[facility] the event this information is protected by the Federal Confidentiality of Alcohol and Drug Abuse Patient Records regulations: The Federal rules restrict any use of the information to criminally investigate or prosecute any alcohol or drug abuse patient.[facility] the event this information is protected by the Federal Confidentiality of Alcohol and Drug Abuse Patient Records regulations: The Federal rules restrict any use of the information to criminally investigate or prosecute any alcohol or drug abuse patient.[facility] the event this information is protected by the Federal Confidentiality of Alcohol and Drug Abuse Patient Records regulations: The Federal rules restrict any use of the information to criminally investigate or prosecute any alcohol or drug abuse patient.[facility] the event this information is protected by the Federal Confidentiality of Alcohol and Drug Abuse Patient Records regulations: The Federal rules restrict any use of the information to criminally investigate or prosecute any alcohol or drug abuse patient.[facility] the event this information is protected by the Federal Confidentiality of Alcohol and Drug Abuse Patient Records regulations: The Federal rules restrict any use of the information to criminally investigate or prosecute any alcohol or drug abuse patient.[facility]In the event this information is protected by the Federal Confidentiality of Alcohol and Drug Abuse Patient Records regulations: The Federal rules restrict any use of the information to criminally investigate or prosecute any alcohol or drug abuse patient.[facility]In the event this information is protected by the Federal Confidentiality of Alcohol and Drug Abuse Patient Records regulations: The Federal rules restrict any use of the information to criminally investigate or prosecute any alcohol or drug abuse patient.[facility] [place]stownIn the event this information is protected by the Federal Confidentiality of Alcohol and Drug Abuse Patient Records regulations: The Federal rules restrict any use of the information to criminally investigate or prosecute any alcohol or drug abuse patient.[facility] [place]stownIn the event this information is protected by the Federal Confidentiality of Alcohol and Drug Abuse Patient Records regulations: The Federal rules restrict any use of the information to criminally investigate or prosecute any alcohol or drug abuse patient.[facility] [place]stownIn the event this information is protected by the Federal Confidentiality of Alcohol and Drug Abuse Patient Records regulations: The Federal rules restrict any use of the information to criminally investigate or prosecute any alcohol or drug abuse patient.[facility] [place]stownIn the event this information is protected by the Federal Confidentiality of Alcohol and Drug Abuse Patient Records regulations: The Federal rules restrict any use of the information to criminally investigate or prosecute any alcohol or drug abuse patient.[facility] [place]stownIn the event this information is protected by the Federal Confidentiality of Alcohol and Drug Abuse Patient Records regulations: The Federal rules restrict any use of the information to criminally investigate or prosecute any alcohol or drug abuse patient.[facility] [place]stownIn the event this information is protected by the Federal Confidentiality of Alcohol and Drug Abuse Patient Records regulations: The Federal rules restrict any use of the information to criminally investigate or prosecute any alcohol or drug abuse patient.[facility]stownIn the event this information is protected by the Federal Confidentiality of Alcohol and Drug Abuse Patient Records regulations: The Federal rules restrict any use of the information to criminally investigate or prosecute any alcohol or drug abuse patient.[facility]stownIn the event this information is protected by the Federal Confidentiality of Alcohol and Drug Abuse Patient Records regulations: The Federal rules restrict any use of the information to criminally investigate or prosecute any alcohol or drug abuse patient.[facility] [place]stownIn the event this information is protected by the Federal Confidentiality of Alcohol and Drug Abuse Patient Records regulations: The Federal rules restrict any use of the information to criminally investigate or prosecute any alcohol or drug abuse patient.[facility]stownIn the event this information is protected by the Federal Confidentiality of Alcohol and Drug Abuse Patient Records regulations: The Federal rules restrict any use of the information to criminally investigate or prosecute any alcohol or drug abuse patient.[facility] [place]stownIn the event this information is protected by the Federal Confidentiality of Alcohol and Drug Abuse Patient Records regulations: The Federal rules restrict any use of the information to criminally investigate or prosecute any alcohol or drug abuse patient.[facility] [place]stownIn the event this information is protected by the Federal Confidentiality of Alcohol and Drug Abuse Patient Records regulations: The Federal rules restrict any use of the information to criminally investigate or prosecute any alcohol or drug abuse patient.[facility] [place]stownIn the event this information is protected by the Federal Confidentiality of Alcohol and Drug Abuse Patient Records regulations: The Federal rules restrict any use of the information to criminally investigate or prosecute any alcohol or drug abuse patient.[facility] [place]stownIn the event this information is protected by the Federal Confidentiality of Alcohol and Drug Abuse Patient Records regulations: The Federal rules restrict any use of the information to criminally investigate or prosecute any alcohol or drug abuse patient.[facility] [place]stownIn the event this information is protected by the Federal Confidentiality of Alcohol and Drug Abuse Patient Records regulations: The Federal rules restrict any use of the information to criminally investigate or prosecute any alcohol or drug abuse patient.[facility] [place]stownIn the event this information is protected by the Federal Confidentiality of Alcohol and Drug Abuse Patient Records regulations: The Federal rules restrict any use of the information to criminally investigate or prosecute any alcohol or drug abuse patient.[facility] [place]stownIn the event this information is protected by the Federal Confidentiality of Alcohol and Drug Abuse Patient Records regulations: The Federal rules restrict any use of the information to criminally investigate or prosecute any alcohol or drug abuse patient.[facility] [place]stownIn the event this information is protected by the Federal Confidentiality of Alcohol and Drug Abuse Patient Records regulations: The Federal rules restrict any use of the information to criminally investigate or prosecute any alcohol or drug abuse patient.[facility] [place]stownIn the event this information is protected by the Federal Confidentiality of Alcohol and Drug Abuse Patient Records regulations: The Federal rules restrict any use of the information to criminally investigate or prosecute any alcohol or drug abuse patient.[facility] [place]stownIn the event this information is protected by the Federal Confidentiality of Alcohol and Drug Abuse Patient Records regulations: The Federal rules restrict any use of the information to criminally investigate or prosecute any alcohol or drug abuse patient.[facility] [place]stownIn the event this information is protected by the Federal Confidentiality of Alcohol and Drug Abuse Patient Records regulations: The Federal rules restrict any use of the information to criminally investigate or prosecute any alcohol or drug abuse patient.[facility] [place]stownIn the event this information is protected by the Federal Confidentiality of Alcohol and Drug Abuse Patient Records regulations: The Federal rules restrict any use of the information to criminally investigate or prosecute any alcohol or drug abuse patient.[facility] [place]stownIn the event this information is protected by the Federal Confidentiality of Alcohol and Drug Abuse Patient Records regulations: The Federal rules restrict any use of the information to criminally investigate or prosecute any alcohol or drug abuse patient.[facility] [place]stownIn the event this information is protected by the Federal Confidentiality of Alcohol and Drug Abuse Patient Records regulations: The Federal rules restrict any use of the information to criminally investigate or prosecute any alcohol or drug abuse patient.[facility] [place]stownIn the event this information is protected by the Federal Confidentiality of Alcohol and Drug Abuse Patient Records regulations: The Federal rules restrict any use of the information to criminally investigate or prosecute any alcohol or drug abuse patient.[facility] [place]stownIn the event this information is protected by the Federal Confidentiality of Alcohol and Drug Abuse Patient Records regulations: The Federal rules restrict any use of the information to criminally investigate or prosecute any alcohol or drug abuse patient.[facility] [place]stownIn the event this information is protected by the Federal Confidentiality of Alcohol and Drug Abuse Patient Records regulations: The Federal rules restrict any use of the information to criminally investigate or prosecute any alcohol or drug abuse patient.[facility] [place]stownIn the event this information is protected by the Federal Confidentiality of Alcohol and Drug Abuse Patient Records regulations: The Federal rules restrict any use of the information to criminally investigate or prosecute any alcohol or drug abuse patient.[facility] [place]stownIn the event this information is protected by the Federal Confidentiality of Alcohol and Drug Abuse Patient Records regulations: The Federal rules restrict any use of the information to criminally investigate or prosecute any alcohol or drug abuse patient.[facility] [place]stownIn the event this information is protected by the Federal Confidentiality of Alcohol and Drug Abuse Patient Records regulations: The Federal rules restrict any use of the information to criminally investigate or prosecute any alcohol or drug abuse patient.[facility] [place]stownIn the event this information is protected by the Federal Confidentiality of Alcohol and Drug Abuse Patient Records regulations: The Federal rules restrict any use of the information to criminally investigate or prosecute any alcohol or drug abuse patient.[facility] [place]stownIn the event this information is protected by the Federal Confidentiality of Alcohol and Drug Abuse Patient Records regulations: The Federal rules restrict any use of the information to criminally investigate or prosecute any alcohol or drug abuse patient.[facility] [place]stownIn the event this information is protected by the Federal Confidentiality of Alcohol and Drug Abuse Patient Records regulations: The Federal rules restrict any use of the information to criminally investigate or prosecute any alcohol or drug abuse patient.[facility] [place]stownIn the event this information is protected by the Federal Confidentiality of Alcohol and Drug Abuse Patient Records regulations: The Federal rules restrict any use of the information to criminally investigate or prosecute any alcohol or drug abuse patient.[facility] [place]stownIn the event this information is protected by the Federal Confidentiality of Alcohol and Drug Abuse Patient Records regulations: The Federal rules restrict any use of the information to criminally investigate or prosecute any alcohol or drug abuse patient.[facility] [place]stownIn the event this information is protected by the Federal Confidentiality of Alcohol and Drug Abuse Patient Records regulations: The Federal rules restrict any use of the information to criminally investigate or prosecute any alcohol or drug abuse patient.[facility] [place]stownIn the event this information is protected by the Federal Confidentiality of Alcohol and Drug Abuse Patient Records regulations: The Federal rules restrict any use of the information to criminally investigate or prosecute any alcohol or drug abuse patient.[facility] [place]stownIn the event this information is protected by the Federal Confidentiality of Alcohol and Drug Abuse Patient Records regulations: The Federal rules restrict any use of the information to criminally investigate or prosecute any alcohol or drug abuse patient.[facility] [place]stownIn the event this information is protected by the Federal Confidentiality of Alcohol and Drug Abuse Patient Records regulations: The Federal rules restrict any use of the information to criminally investigate or prosecute any alcohol or drug abuse patient.[facility] [place]stownIn the event this information is protected by the Federal Confidentiality of Alcohol and Drug Abuse Patient Records regulations: The Federal rules restrict any use of the information to criminally investigate or prosecute any alcohol or drug abuse patient.[facility] [place]stownIn the event this information is protected by the Federal Confidentiality of Alcohol and Drug Abuse Patient Records regulations: The Federal rules restrict any use of the information to criminally investigate or prosecute any alcohol or drug abuse patient.[facility]stownIn the event this information is protected by the Federal Confidentiality of Alcohol and Drug Abuse Patient Records regulations: The Federal rules restrict any use of the information to criminally investigate or prosecute any alcohol or drug abuse patient.[facility]stownIn the event this information is protected by the Federal Confidentiality of Alcohol and Drug Abuse Patient Records regulations: The Federal rules restrict any use of the information to criminally investigate or prosecute any alcohol or drug abuse patient.[facility] [place]stownIn the event this information is protected by the Federal Confidentiality of Alcohol and Drug Abuse Patient Records regulations: The Federal rules restrict any use of the information to criminally investigate or prosecute any alcohol or drug abuse patient.[facility] [place]stownIn the event this information is protected by the Federal Confidentiality of Alcohol and Drug Abuse Patient Records regulations: The Federal rules restrict any use of the information to criminally investigate or prosecute any alcohol or drug abuse patient.[facility] [place]stownIn the event this information is protected by the Federal Confidentiality of Alcohol and Drug Abuse Patient Records regulations: The Federal rules restrict any use of the information to criminally investigate or prosecute any alcohol or drug abuse patient.[facility] [place]stownIn the event this information is protected by the Federal Confidentiality of Alcohol and Drug Abuse Patient Records regulations: The Federal rules restrict any use of the information to criminally investigate or prosecute any alcohol or drug abuse patient.[facility] [place]stownIn the event this information is protected by the Federal Confidentiality of Alcohol and Drug Abuse Patient Records regulations: The Federal rules restrict any use of the information to criminally investigate or prosecute any alcohol or drug abuse patient.[facility] [place]stownIn the event this information is protected by the Federal Confidentiality of Alcohol and Drug Abuse Patient Records regulations: The Federal rules restrict any use of the information to criminally investigate or prosecute any alcohol or drug abuse patient.[facility] [place]stownIn the event this information is protected by the Federal Confidentiality of Alcohol and Drug Abuse Patient Records regulations: The Federal rules restrict any use of the information to criminally investigate or prosecute any alcohol or drug abuse patient.[facility] [place]stownIn the event this information is protected by the Federal Confidentiality of Alcohol and Drug Abuse Patient Records regulations: The Federal rules restrict any use of the information to criminally investigate or prosecute any alcohol or drug abuse patient.[facility] [place]stownIn the event this information is protected by the Federal Confidentiality of Alcohol and Drug Abuse Patient Records regulations: The Federal rules restrict any use of the information to criminally investigate or prosecute any alcohol or drug abuse patient.[facility]stownIn the event this information is protected by the Federal Confidentiality of Alcohol and Drug Abuse Patient Records regulations: The Federal rules restrict any use of the information to criminally investigate or prosecute any alcohol or drug abuse patient.[facility] [place] Reason for Visit (unrecogniz ed section and content) ReasonCommentsFollow UpSpecialtyDiagnoses / ProceduresReferred By Contact Referred To ContactUrology / UROLOGY Diagnoses Unspecified urethral stricture, male, meatal UDS Procedures COMPLEX UROFLOMETRY URODYNAMICS MAIN Louie Salomon MD [address] [place] [address] [facility] [address] [place] [address] Referral IDStatusReasonStart DateExpiration DateVisits RequestedVisits [id number] Question ReasonCommentsRadiology XRReasonCommentsPost OpReasonCommentsPost OpReason Commentsrequest for cath suppliesReasonCommentsOrdersReasonCommentsAppointment ReasonCommentsKnee PainReasonCommentsCystoscopy-1Patient EducationSpecialty Diagnoses / ProceduresReferred By ContactReferred To ContactUrology / UROLOGY Diagnoses Unspecified urethral stricture, male, unspecified site Cystoscopy Procedures CYSTOURETHROSCOPY CYSTOSCOPY Nithya Rhodes PA-C [address] [place] [address] [place] [address] [place] [address] Referral IDStatusReasonStart DateExpiration DateVisits RequestedVisits [id number] Radiology CTSpecialtyDiagnoses / ProceduresReferred By ContactReferred To ContactCT IMAGING Diagnoses Nontraumatic complete tear of right rotator cuff Rotator cuff arthropathy of right shoulder Arthritis of shoulder Procedures CT SHOULDER WO IVCON RT CT SCAN OF ARM Kev Ferrell MD [address] [place] [address] Ct Imaging Referral IDStatusReasonStart DateExpiration DateVisits RequestedVisits [id number] Auto-Generated Referral [id number] RequestReasonCommentsEducation Of Patient/familyCystoscopy-1SpecialtyDiagnoses / ProceduresReferred By Contact Referred To ContactUrology / UROLOGY Diagnoses Stricture of urethral meatus in male, unspecified stricture type CYSTOSCOPY Procedures CYSTOURETHROSCOPY CYSTOSCOPY Radha Ramos MD [address] [place] [address] [place] [address] [place] [address] Referral IDStatusReasonStart DateExpiration DateVisits RequestedVisits [id number]/9/202412/[id number] Question ReasonCommentsfoley cath removal; [facility] strait cath collectionReasonCommentsPatient UpdateReasonCommentsReturning Patient's CallReasonOnset DateCommentsRefill Xgdefac36/05/2024ReasonCommentsRadiology XRSpecialtyDiagnoses / Procedures Referred By ContactReferred To ContactXR IMAGING Diagnoses Left shoulder pain, unspecified chronicity Procedures XR SHOULDER ORTHO 4V AP/TRUE AP/LAT/OUTLET LEFT RADEX SHOULDER COMPLETE MINIMUM 2 VIEWS Nehemiah Gilbert PA-C [address] [place] [address] [place] [address] Referral IDStatusReasonStart DateExpiration DateVisits RequestedVisits [id number] Auto-Generated Referral Patient Cleared - Admin/Button Buttonhole Marker/Director advise to proceed or did not respond /[id number] / ProceduresReferred By ContactReferred To ContactXR IMAGING Diagnoses S/P reverse total shoulder arthroplasty, right Procedures XR SHOULDER GENERAL 3V OR MORE AP/TRUE AP/OTHER RIGHT RADEX SHOULDER COMPLETE MINIMUM 2 VIEWS Nehemiah Gilbert PA-C [address] [place] [address] [place] [address] Referral IDStatusReasonStart DateExpiration DateVisits RequestedVisits [id number] Auto-Generated Referral /[id number] / ProceduresReferred By ContactReferred To ContactXR IMAGING Diagnoses Right shoulder pain, unspecified chronicity Procedures XR SHOULDER ORTHO 4V AP/TRUE AP/LAT/OUTLET RT X-RAY SHOULDER COMPLET MIN 2 VIEWS Nehemiah Gilbert PA-C [address] [place] [address] [place] [address] Referral IDStatusReasonStart DateExpiration DateVisits RequestedVisits [id number] Auto-Generated Referral [id number]paoEmtnnrazFtdncrzlyoi PatientFollow up OABReasonCommentsExcessive SweatingPt states he feels hot inside and sweats a lot mostly on his truck x 2 monthsBack PainConstipationReasonComments Medicare Annual Wellness Visit SubsequentReasonCommentsFollow UpReasonComments Receiving Dock Checker - OtherReasonCox Bransonmentsx [facility] ReasonCommentsHypertensionResultsLabs and ct chestSinusitisReasonCommentsFollow UpGroin painReasonCommentsManometryReasonCommentsPainSpecialtyDiagnoses / ProceduresReferred By ContactReferred To ContactXR IMAGING Diagnoses Closed nondisplaced fracture of acromial end of right clavicle, initial encounter Procedures XR CLAVICLE 2V RIGHT RADEX CLAVICLE COMPLETE Nehemiah Gilbert PA-C [address] [place] [address] Phone: tel: fax: [place] [address] Referral IDStatusReasonStart DateExpiration DateVisits RequestedVisits [id number] Auto-Generated Referral /[id number]fpOacyveOnrykmruBfpyv PainResultscxr ReasonCommentsFollow UpRt inguinal herniaReasonCommentsFollow Up Care Teams (unrecognized sec tion and content) Team MemberRelationshipSpecialtyStart DateEnd Date Stanton Velasco II [address] [place] [address] PCP - GeneralInternal Medicine04/01/21 Hossein Tran [address] [place] [address] ReferringOphthalmology08/28/16 David Carrillo P [address] [place] [phone] ReferringUrology10/06/16Team MemberRelationshipSpecialtyStart DateEnd Date Stanton Velasco II [address] [facility] [address] [place] [address] [facility]21 Hossein Tran [address] [place] [address] ReferringOphthalmology08/28/16 David Carrillo P [address] [place] [phone] ReferringUrology10/06/16Team MemberRelationshipSpecialtyStart DateEnd Date Stanton Velasco II [address] [facility] [address] [place] [address] [facility]04/01/21 Hossein Tran [address] [place] [address] ReferringOphthalmology08/28/16 David Carrillo P [address] [place] [address] ReferringUrology10/06/16Team MemberRelationshipSpecialtyStart DateEnd Date Stanton Velasco II [address] [place] [address] PCP - GeneralInternal Medicine04/01/21 Hossein Tran [address] [place] [address] ReferringOphthalmology08/28/16 David Carrillo [address] [place] [phone] ReferringUrology10/06/16 Team Status: Inactive Member Role Status Dates Stanton Velasco II MD Attending Provider Active Team MemberRelationshipSpecialtyStart DateEnd Stanton Velasco II [address] [place] [address] PCP - GeneralInternal Medicine04/01/21 Hossein Tran [address] [place] [phone] ReferringOphthalmology08/28/16 David Carrillo [address] [place] [phone] ReferringUrology10/06/16Team MemberRelationshipSpecialtyStart DateEnd Date Stanton Velasco II [address] [place] [address] PCP - GeneralInternal Medicine04/01/21 Hossein Tran [address] [place] [address] ReferringOphthalmology08/28/16 David Carrillo P [address] [place] [address] ReferringUrology10/06/16Team MemberRelationshipSpecialtyStart DateEnd Date Stanton Velasco II [address] [place] [address] PCP - GeneralInternal Medicine04/01/21 Hossein Tran [address] [place] [address] ReferringOphthalmology08/28/16 David Carrillo P [address] [place] [address] ReferringUrology10/06/16Team MemberRelationshipSpecialtyStart DateEnd Date Stanton Velasco II [address] [place] [address] PCP - [facility]Ver[facility] Centernal Medicine04/01/21 Hossein Tran [address] [place] [address] ReferringOphthalmology08/28/16 David Carrillo P [address] [place] [address] ReferringUrology10/06/16Team MemberRelationshipSpecialtyStart DateEnd Date Stanton Velasco II [address] [place] [address] PCP - GeneralInternal Medicine04/01/21 Hossein Tran [address] [place] [address] ReferringOphthalmology08/28/16 David Carrillo P [address] [place] [address] ReferringUrology10/06/16Team MemberRelationshipSpecialtyStart DateEnd Date Stanton Velasco II [address] [facility] [address] [place] [address] PCP - [facility]Ver[facility] Centernal Medicine04/01/21 Hossein Tran [address] [place] [address] ReferringOphthalmology08/28/16 David Carrillo [address] [place] [address] ReferringUrology10/06/16Team MemberRelationshipSpecialtyStart DateEnd Date [facility] [address] [place] [address] PCP - GeneralMer[facility] Centerly Medicine Hossein Tran [address] [place] [address] ReferringOphthalmology08/28/16 David Carrillo [address] [place] [address] ReferringUrology10/06/16Te MemberRelationshipSpecialtyStart DateEnd Date [facility] [address] [place] [address] PCP - Generalmily Medicine Hossein Tran [address] [place] [address] ReferringOphthalmology08/28/16 David Carrillo [address] [place] [address] ReferringUrology10/06/16Team MemberRelationshipSpecialtyStart DateEnd Date Stanton Velasco II, MD [address] [place] [address] PCP - GeneralInternal Medicine04/01/21 Hossein Tran, [address] [place] [address] ReferringOphthalmology08/28/16 David Carrillo [address] [place] [address] ReferringUrology10/06/16Team MemberRelationshipSpecialtyStart DateEnd Date Stanton Velasco II, MD [address] [place] [address] PCP - [facility]04/01/21 Hossein Tran, [address] [place] [address] ReferringOphthalmology08/28/16 David Carrillo MD [address] [place] [address] ReferringUrology10/06/16Team MemberRelationshipSpecialtyStart DateEnd Date Stanton Velasco II, MD [address] [place] [address] PCP - GeneralInternal Medicine04/01/21 Hossein Tran DO [address] [place] [address] ReferringOphthalmology08/28/16 David Carrillo MD [address] [place] [address] ReferringUrology10/06/16Team MemberRelationshipSpecialtyStart DateEnd Date Stanton Velasco II, MD [address] [place], [place] [address] PCP - GeneralInternal Medicine04/01/21 Hossein Tran DO [address] [place] [address] ReferringOphthalmology08/28/16 David Carrillo MD [address] [place] [address] ReferringUrology10/06/16Te MemberRelationshipSpecialtyStart DateEnd Date Stanton Velasco II, MD [address] [place] [address] PCP - GeneralInternal Medicine04/01/21 Hossein Tran DO [address] [place] [address] ReferringOphthalmology08/28/16 David Carrillo MD [address] [place] [address] ReferringUrology10/06/16Team MemberRelationshipSpecialtyStart DateEnd Date Stanton Velasco II, MD [address] [place] [address] PCP - GeneralInternal Medicine04/01/21 Hossein Tran DO [address] [place] [address] ReferringOphthalmology08/28/16 David Carrillo MD [address] [place] [address] ReferringUrology10/06/16Team MemberRelationshipSpecialtyStart DateEnd Date Stanton Velasco II, MD [address] [address] [place] [address] PCP - GeneralInternal Medicine04/01/21 Hossein Tran DO [address] [place] [address] ReferringOphthalmology08/28/16 David Carrillo MD [address] [place] [address] ReferringUrology10/06/16Team MemberRelationshipSpecialtyStart DateEnd Date Stanton Velasco II, MD [address] [address] [place] [address] PCP - GeneralInternal Medicine04/01/21 Hossein Tran DO [address] [place] [address] ReferringOphthalmology08/28/16 David Carrillo MD [address] [place] [address] ReferringUrology10/06/16Te MemberRelationshipSpecialtyStart DateEnd Date Stanton Velasco II, MD [address] [place], [place] [address] PCP - GeneralVer[facility] Centernal Medicine04/01/21 Hossein Tran DO [address] [place] [address] ReferringOphthalmology08/28/16 David Carrillo MD [address] [place] [address] ReferringUrology10/06/16Te MemberRelationshipSpecialtyStart DateEnd Date Stanton Velasco II, MD [address] [place] [address] PCP - [facility]Ver[facility] Centernal Medicine04/01/21 Hossein Tran DO [address] [place] [address] ReferringOphthalmology08/28/16 David Carrillo MD [address] [place] [address] ReferringUrology10/06/16Team MemberRelationshipSpecialtyStart DateEnd Date Stanton Velasco II, MD [address] [place] [address] PCP - GeneralInternal Medicine04/01/21 Hossein Tran DO [address] [place] [address] ReferringOphthalmology08/28/16 David Carrillo MD [address] [place] [address] ReferringUrology10/06/16Team MemberRelationshipSpecialtyStart DateEnd Date Stanton Velasco II, MD [address] [facility] [address] [place] [address] PCP - GeneralInternal Medicine04/01/21 Hossein Tran, [address] [place] [address] ReferringOphthalmology08/28/16 David Carrillo MD [address] [place] [address] ReferringUrology10/06/16Team MemberRelationshipSpecialtyStart DateEnd Date Stanton Velasco II, MD [address] [place] [address] PCP - GeneralInternal Medicine04/01/21 Hossein Tran DO [address] [place] [address] ReferringOphthalmology08/28/16 David Carrillo MD [address] [place] [address] ReferringUrology10/06/16Te MemberRelationshipSpecialtyStart DateEnd Stanton Velasco II, MD [address] [place], [place] [address] PCP - [facility] Medicine04/01/21 Hossein Tran DO [address] [place] [address] ReferringOphthalmology08/28/16 David Carrillo MD [address] [place] [address] ReferringUrology10/06/16Te MemberRelationshipSpecialtyStart DateEnd Date Stanton Velasco II, MD [address] [facility] [address] [place] [address] [facility] - [facility] Medicine04/01/21 Hossein Tran DO [address] [place] [address] ReferringOphthalmology08/28/16 David Carrillo MD [address] [place] [address] ReferringUrology10/06/16Team MemberRelationshipSpecialtyStart DateEnd Date Stanton Velasco II, MD [address] [facility] [address] [place] [address] PCP - GeneralInternal Medicine04/01/21 Hossein Tran, [address] [place] [address] ReferringOphthalmology08/28/16 David Carrillo MD [address] [place] [address] ReferringUrology10/06/16Team MemberRelationshipSpecialtyStart DateEnd Date Stanton Velasco II, MD [address] [facility] [address] [place] [address] PCP - GeneralInternal Medicine04/01/21 Hossein Tran, [address] [place] [address] ReferringOphthalmology08/28/16 David Carrillo MD [address] [place] [address] ReferringUrology10/06/16Team MemberRelationshipSpecialtyStart DateEnd Date Taryn Watson Rosado [address] [place] [address] [place] [address] PCP - GeneralMer[facility] Centerly Medicine Hossein Tran DO [address] [place] [address] ReferringOphthalmology08/28/16 David Carrillo MD [address] [place] [address] ReferringUrology10/06/16Team MemberRelationshipSpecialtyStart DateEnd Date Stanton Velasco II, MD [address] [place] [address] PCP - GeneralVer[facility] Centernal Medicine04/01/21 Hossein Tran DO [address] [place] [address] ReferringOphthalmology08/28/16 David Carrillo MD [address] [place] [address] ReferringUrology10/06/16Te MemberRelationshipSpecialtyStart DateEnd Date [facility] Alonzo [address] [place] [address] P[facility] Hossein Tran DO [address] [place] [address] ReferringOphthalmology08/28/16 David Carrillo MD [address] [place] [address] ReferringUrology10/06/16Te MemberRelationshipSpecialtyStart DateEnd Date [facility] [address] [place] [address] PCP - GeneralMer[facility] Centerly Medicine/ Hossein Tran DO [address] [place] [address] ReferringOphthalmology08/28/16 David Carrillo MD [address] [place] [address] ReferringUrology10/06/16Team MemberRelationshipSpecialtyStart DateEnd Date Stanton Velasco II, MD [address] [facility] [address] [place] [address] PCP - GeneralInternal Medicine04/01/21 Hossein Tran DO [address] [place] [address] ReferringOphthalmology08/28/16 David Carrillo MD [address] [place] [address] ReferringUrology10/06/16Tearden MemberRelationshipSpecialtyStart DateEnd Date Stanton Velasco II, MD [address] [facility] [address] [place] [address] PCP - GeneralInternal Medicine04/01/21 Hossein Tran DO [address] [place] [address] ReferringOphthalmology08/28/16 David Carrillo MD [address] [place] [address] ReferringUrology10/06/16Team MemberRelationshipSpecialtyStart DateEnd Date Stanton Velasco MD [address] [place] [address] PCP - [facility]02/12/21 Stanton Velasco MD [address] [place] [address] PCP - GeneralInternal Medicine08/18/22Team MemberRelationshipSpecialtyStart Date End Date Stanton Velasco II, MD [address] [place] [address] PCP - GeneralInternal Medicine04/01/21 Hossein Tran DO [address] [place] [address] ReferringOphthalmology08/28/16 David Carrillo MD [address] [place] [address] ReferringUrology10/06/16Team MemberRelationshipSpecialtyStart DateEnd Date Stanton Velasco MD [address] [place] [address] PCP - [facility]02/12/21 Stanton Velasco MD [address] [place] [address] PCP - GeneralInternal Medicine08/18/22Team MemberRelationshipSpecialtyStart Date End Date Stanton Velasco MD [address] [place] [address] PCP - [facility]02/12/21 Stanton Velasco MD [address] [place] [address] PCP - GeneralInternal Medicine08/18/22Te MemberRelationshipSpecialtyStart Date End Date Stanton Velasco MD [address] [place] [address] PCP - GeneralInternal [facility]08/18/22Te MemberRelationshipSpecialtyStart Date End Date Stanton Velasco MD [address] [place] [address] PCP - [facility]08/18/22Te MemberRelationshipSpecialtyStart Date End Date Stanton Velasco II, MD [address] [place] [address] PCP - [facility]04/01/21 Hossein Tran DO [address] [place] [address] ReferringOphthalmology08/28/16 David Carrillo MD [address] [place] [address] ReferringUrology10/06/16Team MemberRelationshipSpecialtyStart DateEnd Date Stanton Velasco II, MD [address] [place] [address] PCP - GeneralInternal Medicine04/01/21 Hossein Tran DO [address] [place] [address] ReferringOphthalmology08/28/16 David Carrillo MD [address] [place] [address] ReferringUrology10/06/16Team MemberRelationshipSpecialtyStart DateEnd Date Stanton Velasco MD [address] [place] [address] PCP - GeneralInternal Medicine08/18/22Team MemberRelationshipSpecialtyStart Date End Date Stanton Velasco MD [address] [place] [address] PCP - GeneralInternal Medicine08/18/22 Emelyn Hall RN Clinical AdvocateFamily Medicine03/21/24Team MemberRelationshipSpecialtyStart Date End Date Stanton Velasco MD [address] [place] [address] PCP - GeneralInternal Medicine08/18/22 Emelyn Hall RN Clinical AdvocateFamily Medicine03/21/24Team MemberRelationshipSpecialtyStart Date End Date Stanton Velasco II, MD [address] [place] [address] PCP - GeneralInternal Medicine04/01/21 Hossein Tran DO [address] [place] [address] ReferringOphthalmology08/28/16 David Carrillo MD [address] [place] [address] ReferringUrology10/06/16Team MemberRelationshipSpecialtyStart DateEnd Date Stanton Velasco MD [address] [place] [address] PCP - GeneralInternal Medicine08/18/22 Emelyn Hall RN Clinical AdvocateFamily Medicine03/21/24Team MemberRelationshipSpecialtyStart Date End Date Stanton Velasco MD [address] [facility] [address] [place] [address] PCP - GeneralInternal Medicine08/18/22 Emelyn Hall, LEATHA Clinical AdvocateFamily Medicine03/21/24Team MemberRelationshipSpecialtyStart Date End Date Stanton Velasco MD [address] [facility] [address] [place] [address] PCP - GeneralInternal Medicine08/18/22 Stanton Velasco MD [address] [place] [address] PCP - Medical [place] MA02/12/2511 Alvina Sanchez LPN 05/06/24Team MemberRelationshipSpecialtyStart DateEnd Date Stanton Velasco MD [address] [place] [address] PCP - GeneralInternal Medicine08/18/22 Stanton Velasco MD [address] [place] [address] PCP - Medical [place] MA/02/2511 Alvina Sanchez, [employer] [address] [place] [address] 05/06/24Team MemberRelationshipSpecialtyStart DateEnd Date Stanotn Velasco II, MD [address] [place] [address] PCP - GeneralInternal Medicine04/01/21 Hossein Tran DO [address] [place] [address] ReferringOphthalmology08/28/16 David Carrillo MD [address] [place] [address] ReferringUrology10/06/16Team MemberRelationshipSpecialtyStart DateEnd Date Stanton Velasco II, MD [address] [facility] [address] [place] [address] PCP - GeneralInternal Medicine04/01/21 Hossein Tran DO [address] [place] [address] ReferringOphthalmology08/28/16 David Carrillo MD [address] [place] [address] ReferringUrology10/06/16Team MemberRelationshipSpecialtyStart DateEnd Date Stanton Velasco II, MD [address] [place] [address] PCP - GeneralInternal Medicine04/01/21 Hossein Tran DO [address] [place] [address] ReferringOphthalmology08/28/16 David Carrillo MD [address] [place] [address] ReferringUrology10/06/16Team MemberRelationshipSpecialtyStart DateEnd Date Stanton Velasco MD [address] [place] [address] PCP - GeneralInternal Medicine08/18/22 Stanton Velasco MD [address] [place] [address] PCP - Medical [facility]02/12/2511 Alvina Sanchez LPN [address] [place] [address] 05/06/24Team MemberRelationshipSpecialtyStart DateEnd Date Stanton Velasco MD [address] [place] [address] PCP - GeneralInternal Medicine08/18/22 Stanton Velasco MD [address] [place] [address] PCP - Medical [place] 02/12/2511 Alvina Sanchez LPN [address] [place] [address] 05/06/24Team MemberRelationshipSpecialtyStart DateEnd Date Stanton Velasco MD [address] [place] [address] PCP - GeneralInternal Medicine08/18/22 Stanton Velasco MD [address] [place] [address] PCP - Medical [place] 02/12/2511 Alvina Sanchez LPN [address] [place] [address] 05/06/24Team MemberRelationshipSpecialtyStart DateEnd Date Stanton Velasco MD [address] [place] [address] PCP - GeneralInternal Medicine08/18/22 Stanton Velasco MD [address] [place] [address] PCP - Medical [place] 02/12/2511 Alvina Sanchez LPN [address] [place] [address] 05/06/24Team MemberRelationshipSpecialtyStart DateEnd Date Stanton Velasco II, MD [address] [place] [address] PCP - GeneralInternal Medicine04/01/21 Hossein Tran DO [address] [place] [address] ReferringOphthalmology08/28/16 David Carrillo MD [address] [place] [address] ReferringUrology10/06/16Te MemberRelationshipSpecialtyStart DateEnd Date Stanton Velasco II, MD [address] [place], [place] [address] PCP - [facility] Centern[facility] Medicine04/01/21 Hossein Tran DO [address] [place] [address] ReferringOphthalmology08/28/16 David Carrillo MD [address] [place] [address] ReferringUrology10/06/16Te MemberRelationshipSpecialtyStart DateEnd Date Stanton Velasco II, MD [address] [place] [address] PCP - [facility]Ver[facility] Centern[facility] Medicine04/01/21 Hossein Tran DO [address] [place] [address] ReferringOphthalmology08/28/16 David Carrillo MD [address] [place] [address] ReferringUrology10/06/16Team MemberRelationshipSpecialtyStart DateEnd Date Stanton Velasco MD [address] [place] [address] PCP - GeneralInternal Medicine08/18/22 Stanton Velasco MD [address] [place] [address] PCP - [facility]02/12/2511 Alvina Sanchez LPN [address] [place] [address] 05/06/24 Team Status: Active Member Role Status Dates NON STAFF Primary Care Provider Active Team Status: Inactive Member Role Status Dates Nydia Barfield , Attending Provider Active St art: November 14, 2024 End: November 14, 2024NON STAFFPrimary Care ProviderActiveStart: November 14, 2024 End: November 14, 2024 Team Status: Active Member Role/Relationship Status Dates Stanton Velasco II MD Primary Care Provider Active Team Status: Inactive Member Role/Relationship Status Dates Nydia Barfield , Attending Provider Active St art: November 14, 2024 End: November 14, 2024NON STAFFPrimary Care ProviderActiveStart: November 14, 2024 End: November 14, 2024 Team Status: Inactive Member Role/Relationship Status Dates Nydia Barfield , Attending Provider Active St art: December 05, 2024 End: December 05, 2024Stanton Velasco II [facility] Care ProviderActiveStart: December 05, 2024 End: December 05, 2024Team MemberRelationshipSpecialtyStart DateEnd Date Stanton Velasco MD [address] [place] [address] PCP - [facility] Centern[facility] Medicine08/18/22 Stanton Velasco MD [address] [place] [address] PCP - Medical [place] MA/ Emelyn Hall RN [address] [facility] [address] Clinical AdvocateFamily Medicine Alvina Sanchez LPN [address] [facility] [address] [place] [address] 05/06/24Team MemberRelationshipSpecialtyStart DateEnd Stanton Velasco MD [address] [facility] [address] [place] [address] PCP - [facility]02/12/2211 Stanton Velasco MD [address] [facility] [address] [place] [address] PCP - GeneralInternal Medicine08/18/22 Stanton Velasco MD [address] [facility] [address] [place] [address] PCP - Medical [place] MA02/12/2511 Emelyn Hall RN [address] [facility] [place] [address] Clinical AdvocateFamily Medicine Alvina Sanchez LPN [address] [facility] [address] [place] [address] 05/06/24 Team Status: Active Member Role/Relationship Status Dates Nydia Barfield DO Attending Provider Active St art: December 23, 2024 Nydia Barfield DOOther ProviderActiveStart: December 23, 2024 Stanton Velasco II [facility] ProviderActiveStart: December 23, 2024 Goals (unrecognized section and content) Goals may be documented in a n alternate section No data available for this section No data available for this sectionGoals may be documented in an alternate sectionGoals may be documented in an alternate sectionGoals may be documented in an alternate section FOR RECORDS PERTAINING TO PATIENTS [...] BE BASED ON THE PRIMARY CLINICAL RECORDS. [facility] [employer] [facility]. provides no warranty or guarantee of the accuracy or completeness of information in this document.
--- NOTE | 2025-01-15 11:18 | XR_ITS ---
The [address] [address] Patient Name: CHELSEA PATEL MRN: [id number] date: 1950 Sex: M Assigned Patient Location: [facility] Current Patient Location: [facility] Accession/Order Number: [id number] Exam Date: 01/15/2025 11:20 Report Date: 01/15/2025 12:11 At the request of: JAMES SEQUEIRA Procedure: XR lumbar spine 2-3V LUMBAR SPINE - 2 views COMPARISON: Thoracic spine 05/17/2018 CLINICAL DATA: Low back pain since fall 2 weeks ago. Prior fusion. AP and lateral views were obtained. There is osteopenia. Dextroscoliotic curvature is seen. There is prior laminectomy and fusion at L4-5 with posterior rods, pedicle screws and an interbody fusion device. The hardware appears intact and in appropriate position. No displacement is identified. There is minor chronic appearing wedge deformity in the thoracolumbar region. No definite acute compression fractures are noted. The unfused disc spaces are maintained. Endplate spurring is seen throughout. There is lower lumbar facet hypertrophy. The SI joints are intact. No paraspinal soft tissue abnormalities are seen. XR/XR lumbar spine 2-3V IMPRESSION: OSTEOPENIA, SCOLIOSIS, POSTOPERATIVE AND DEGENERATIVE CHANGES. NO ACUTE FINDINGS. Impression dictated by: Nessa Sarabia M.D. 01/15/2025 12:11 PM Dictation Location: [place] [address] Electronically authenticated by: [id number] Y Date: 01/15/2025 12:11
== END 2025-01-15 10:38 | disposition home or self-care (01) ==
LOC: RAD 10:39
PROVIDERS: PCP Internal Medicine; Visit Provider Internal Medicine
DX: M54.50 Low back pain, unspecified (principal); W19.XXXA Unspecified fall, initial encounter; M85.88 Other specified disorders of bone density and structure, other site; M41.86 Other forms of scoliosis, lumbar region; M51.369 Other intervertebral disc degeneration, lumbar region without mention of lumbar back pain or lower extremity pain
CPT/HCPCS: 72100